=== PATIENT | male | born 1955 | race Caucasian/White ===

== ENCOUNTER 2017-02-02 23:43 | Inpatient (IN) | payer OTHER, MEDICARE ==
[~2017-02-02] VITALS: Ht 175.3 cm; Wt 151.6 kg
[~2017-02-02 23:43] MED LIST: BUME1TAB25 PO; IPRASOL INH; METO50TA PO; PRAV40TA2 PO; PROT40TA PO; VENTAER INH; XARE20TA PO
[2017-02-02 23:47] VITALS: BP 130/102; PULSE 94; RESP 22; TEMP 98.4; O2SAT 95
[2017-02-02] MEDS ORDERED: ATOR40TA16 PO (23:51)
[2017-02-02] MEDS ORDERED: SPIR25TA PO (23:51)
[2017-02-03] VITALS (14 sets, daily range): BP systolic 98–127; BP diastolic 54–87; PULSE 89–109; RESP 17–24; TEMP 97.8–98.5; O2SAT 94–100
[2017-02-03] MEDS: RESP: ALBUTEROL 2.5 MG/IPRATROPIUM 0.5 MG NEB (SCH) INH (00:07)
--- NOTE | 2017-02-03 00:26 | PD ---
HPI Chief Complaint: Respiratory Symptoms Time Seen by Provider: 23:53 Travel History International Travel<30 days: No Contact w/Intl Traveler<30days: No Traveled to known affect area: No History of Present Illness HPI Patient is a 61-year-old male with history of A. fib, hypertension, COPD, hyperlipidemia presents to emergency room with complaints of cough, shortness of breath for the past few days. Patient reports that he used to be on home oxygen but himself off of it a few months ago as he was "breathing okay." Patient reports that a few days ago, he began to feel short of breath. Patient reports that despite using nebulizer treatments at home, he continued to wheeze and feel short of breath. Patient reports that he has been coughing, reports that cough is nonproductive in nature. Patient reports that he has also been having fevers and chills, reports no sick contacts at home. Reports that he is supposed to be on Xarellto but has not been on it for 2 days as he had run out of his medications. Reports that he is on Xarelto to "prevent blood clots." Patient denies any recent travels or trips. Patient reports no other complaints. Patient denies any chest pain at this time. Patient was given Solu-Medrol 125 mg IV as well as 2 neb treatments prior to arrival to emergency room. PFSH Past Medical History Hx Anticoagulant Therapy: Yes Asthma: No Atrial Fibrillation: Yes Heart Rhythm Problems: Yes (ablation) Cancer: No Cardiac Catheterization: Yes Cardiovascular Problems: Yes High Cholesterol: Yes Chest Pain: Yes Congestive Heart Failure: Yes COPD: Yes (HOME O2 2 L NC) Cerebrovascular Accident: Yes Coronary Artery Disease: Yes Diabetes: No Diminished Hearing: No Endocrine: No Gastrointestinal Disorders: No Genitourinary: Yes (INTERMITTENT INCONTINENCE OF BOWEL AND BLADDER) Hypertension: Yes Immune Disorder: No Implanted Vascular Access Dvce: No Musculoskeletal: Yes Neurologic: Yes Psychiatric: No Reproductive: No Respiratory: Yes Integumentary: Yes (BILATERAL LOWER LEG SWELLING/SKIN ITEGRATY ISSUES cellulitis) Immunizations Current: Yes Migraines: No Seizures: Yes Sleep Apnea: Yes (DOES NOT HAVE CPAP) Thyroid Disease: No Tetanus Vaccination: > 5 Years Influenza Vaccination: Yes Past Surgical History Abdominal Surgery: Yes (apendix) Appendectomy: Yes Cardiac Surgery: Yes (ABLATIONS X 3) Genitourinary Surgery: No Neurologic Surgery: No Tonsillectomy: Yes Other Surgery: Yes (ABLATION X 3) Social History Alcohol Use: Yes (RARE) Tobacco Use: No Substance Use: No Allergies-Medications (Allergen,Severity, Reaction): Coded Allergies: *MDRO Multi-Drug Resistant Organism (Verified Adverse Reaction, Unknown, ) MRSA PCR (nares) positive - 01/11/16 Reported Meds & Prescriptions Reported Meds & Active Scripts Active Protonix (Pantoprazole Sodium) 40 Mg Tab 40 Mg PO DAILY Reported Atorvastatin (Atorvastatin Calcium) 40 Mg Tab 40 Mg PO HS Spironolactone 25 Mg Tab 25 Mg PO BIDPC Metoprolol Tartrate 50 Mg Tab 50 Mg PO BID Xarelto (Rivaroxaban) 20 Mg Tab 20 Mg PO DAILY WITH DINNER Bumex (Bumetanide) 0.5 Mg Tab 0.5 Mg PO BID Duoneb (Ipratropium-Albuterol Neb) 0.5-2.5 Mg/3 Ml Neb 1 Nebule INH Q4HR NEB PRN Ventolin Hfa 18 GM Inh (Albuterol Sulfate) 90 Mcg/Act Aer 2 Puff INH Q4H PRN Review of Systems General / Constitutional: Positive: Fever, Chills Eyes: No: Visual changes HENT: No: Headaches Cardiovascular: No: Chest Pain or Discomfort Respiratory: Positive: Cough, Shortness of Breath, Wheezing Gastrointestinal: No: Abdominal Pain Genitourinary: No: Dysuria Musculoskeletal: No: Pain Skin: No Rash Neurologic: No: Weakness Psychiatric: No: Depression Endocrine: No: Polydipsia Hematologic/Lymphatic: No: Easy Bruising Physical Exam Narrative GENERAL: Moderate distress SKIN: Focused skin assessment warm/dry. HEAD: Atraumatic. Normocephalic. EYES: Pupils equal and round. No scleral icterus. No injection or drainage. ENT: No nasal bleeding or discharge. Mucous membranes pink and moist. NECK: Trachea midline. No JVD. CARDIOVASCULAR: Tachycardic. No murmur appreciated. RESPIRATORY: Patient with overall decreased breath sounds, scattered wheezing on exam GASTROINTESTINAL: Abdomen soft, non-tender, nondistended. Hepatic and splenic margins not palpable. MUSCULOSKELETAL: No obvious deformities. No clubbing. No cyanosis. Patient with +3 pedal edema bilaterally with open skin to his right lower extremity NEUROLOGICAL: Awake and alert. No obvious cranial nerve deficits. Motor grossly within normal limits. Normal speech. PSYCHIATRIC: Appropriate mood and affect; insight and judgment normal. Data Data Last Documented VS Vital Signs Date Time Temp Pulse Resp B/P Pulse Ox O2 Delivery O2 Flow Rate FiO2 02/03/17 01:00 94 21 101/60 95 Nasal Cannula 2 02/02/17 23:47 98.4 Orders Complete Blood Count With Diff (02/02/17 23:53) Comprehensive Metabolic Panel (02/02/17 23:53) B-Type Natriuretic Peptide (02/02/17 23:53) Act Partial Throm Time (Ptt) (02/02/17 23:53) Prothrombin Time / Inr (Pt) (02/02/17 23:53) Magnesium (Mg) (02/02/17 23:53) Ckmb (Isoenzyme) Profile (02/02/17 23:53) Troponin I (02/02/17 23:53) Blood Culture (02/02/17 23:53) Iv Access Insert/Monitor (02/02/17 23:53) Electrocardiogram (02/02/17 23:53) Ecg Monitoring (02/02/17 23:53) Oximetry (02/02/17 23:53) Sodium Chloride 0.9% Flush (Ns Flush) (02/03/17 00:00) Albuterol-Ipratropium Neb (Duoneb Neb) (02/03/17 00:00) Us Leg Venous Doppler Bilat (02/02/17 ) Aspirin Chew (Aspirin Chew) (02/03/17 00:30) Chest, Single Ap (02/03/17 00:54) Osmolality,Serum (02/03/17 01:19) Osmolality, Urine (02/03/17 01:19) Ceftriaxone Inj (Rocephin Inj) (02/03/17 01:30) Azithromycin Inj (Zithromax Inj) (02/03/17 02:15) Admit Order (Ed Use Only) (02/03/17 02:04) Labs Laboratory Tests Test 02/03/17 00:00 White Blood Count 6.3 TH/MM3 Red Blood Count 3.51 MIL/MM3 Hemoglobin 10.9 GM/DL Hematocrit 32.5 % Mean Corpuscular Volume 92.6 FL Mean Corpuscular Hemoglobin 31.1 PG Mean Corpuscular Hemoglobin 33.5 % Concent Red Cell Distribution Width 14.9 % Platelet Count 220 TH/MM3 Mean Platelet Volume 6.6 FL Neutrophils (%) (Auto) 72.2 % Lymphocytes (%) (Auto) 13.5 % Monocytes (%) (Auto) 11.6 % Eosinophils (%) (Auto) 1.0 % Basophils (%) (Auto) 1.7 % Neutrophils # (Auto) 4.5 TH/MM3 Lymphocytes # (Auto) 0.8 TH/MM3 Monocytes # (Auto) 0.7 TH/MM3 Eosinophils # (Auto) 0.1 TH/MM3 Basophils # (Auto) 0.1 TH/MM3 CBC Comment DIFF FINAL Differential Comment Prothrombin Time 11.0 SEC Prothromb Time International 1.0 RATIO Ratio Activated Partial 28.1 SEC Thromboplast Time Sodium Level 115 MEQ/L Potassium Level 4.0 MEQ/L Chloride Level 78 MEQ/L Carbon Dioxide Level 21.6 MEQ/L Anion Gap 15 MEQ/L Blood Urea Nitrogen 18 MG/DL Creatinine 1.43 MG/DL Estimat Glomerular Filtration 50 ML/MIN Rate Random Glucose 105 MG/DL Calcium Level 8.6 MG/DL Magnesium Level 1.3 MG/DL Total Bilirubin 1.1 MG/DL Aspartate Amino Transf 43 U/L (AST/SGOT) Alanine Aminotransferase 35 U/L (ALT/SGPT) Alkaline Phosphatase 149 U/L Total Creatine Kinase 87 U/L Troponin I LESS THAN 0.02 NG/ML B-Type Natriuretic Peptide 48 PG/ML Total Protein 6.7 GM/DL Albumin 3.5 GM/DL MDM Medical Decision Making Medical Screen Exam Complete: Yes Emergency Medical Condition: Yes Interpretation(s) EKG at 2355: Normal sinus rhythm at 93 beats for minute, QT/QTc 356/407, ST segment depressions with T-wave inversions and leads V1 to V5, rbbb, ischemic changes are new when compared to EKG form 09/04/16 Vital Signs Date Time Temp Pulse Resp B/P Pulse Ox O2 Delivery O2 Flow Rate FiO2 02/03/17 00:00 98 Nasal Cannula 2.00 02/02/17 23:47 98.4 94 22 130/102 95 Differential Diagnosis ACS, arrhythmia, COPD exacerbation, pneumonia, electrolyte abnormality, DVT, PE Narrative Course Patient is a 61-year-old male who presents to emergency room with complaints of cough and shortness of breath the past few days. Patient does have history of COPD, reports that he is supposed to be on home O2, he stopped using this oxygen a few months ago as he reports that his lungs felt better. Patient appeared to have tight breath sounds by evaluation by EMS, he was given 125 mg of Solu-Medrol as well as 2 neb treatments prior to arrival to emergency room. Patient does have continued decreased breath sounds, patient was ordered continued neb treatments. X-ray of the chest including blood cultures and lab work ordered. Patient does have an ischemic appearing EKG, cardiac enzymes ordered as well. Patient also with swelling to his lower extremities, Doppler ultrasounds ordered to rule out DVT. Laboratory Tests Test 02/03/17 00:00 White Blood Count 6.3 TH/MM3 (4.0-11.0) Red Blood Count 3.51 MIL/MM3 (4.50-5.90) Hemoglobin 10.9 GM/DL (13.0-17.0) Hematocrit 32.5 % (39.0-51.0) Mean Corpuscular Volume 92.6 FL (80.0-100.0) Mean Corpuscular Hemoglobin 31.1 PG (27.0-34.0) Mean Corpuscular Hemoglobin 33.5 % Concent (32.0-36.0) Red Cell Distribution Width 14.9 % (11.6-17.2) Platelet Count 220 TH/MM3 (150-450) Mean Platelet Volume 6.6 FL (7.0-11.0) Neutrophils (%) (Auto) 72.2 % (16.0-70.0) Lymphocytes (%) (Auto) 13.5 % (9.0-44.0) Monocytes (%) (Auto) 11.6 % (0.0-8.0) Eosinophils (%) (Auto) 1.0 % (0.0-4.0) Basophils (%) (Auto) 1.7 % (0.0-2.0) Neutrophils # (Auto) 4.5 TH/MM3 (1.8-7.7) Lymphocytes # (Auto) 0.8 TH/MM3 (1.0-4.8) Monocytes # (Auto) 0.7 TH/MM3 (0-0.9) Eosinophils # (Auto) 0.1 TH/MM3 (0-0.4) Basophils # (Auto) 0.1 TH/MM3 (0-0.2) CBC Comment DIFF FINAL Differential Comment Prothrombin Time 11.0 SEC (9.8-11.6) Prothromb Time International 1.0 RATIO Ratio Activated Partial 28.1 SEC Thromboplast Time (24.3-30.1) Sodium Level 115 MEQ/L (136-145) Potassium Level 4.0 MEQ/L (3.5-5.1) Chloride Level 78 MEQ/L (98-107) Carbon Dioxide Level 21.6 MEQ/L (21.0-32.0) Anion Gap 15 MEQ/L (5-15) Blood Urea Nitrogen 18 MG/DL (7-18) Creatinine 1.43 MG/DL (0.60-1.30) Estimat Glomerular Filtration 50 ML/MIN (>89) Rate Random Glucose 105 MG/DL (74-106) Calcium Level 8.6 MG/DL (8.5-10.1) Magnesium Level 1.3 MG/DL (1.5-2.5) Total Bilirubin 1.1 MG/DL (0.2-1.0) Aspartate Amino Transf 43 U/L (15-37) (AST/SGOT) Alanine Aminotransferase 35 U/L (12-78) (ALT/SGPT) Alkaline Phosphatase 149 U/L (45-117) Total Creatine Kinase 87 U/L (39-308) Troponin I LESS THAN 0.02 NG/ML (0.02-0.05) B-Type Natriuretic Peptide 48 PG/ML (0-100) Total Protein 6.7 GM/DL (6.4-8.2) Albumin 3.5 GM/DL (3.4-5.0) pt's sodium 115 - patient is asymptomatic at this time, pt is on bumex 0.5mg bid - this could be the reason for his hyponatremia? call made to nephrology to review case plan to admit to icu Case discussed with Dr. Dominguez who is the "manufacturing test engineer" commercial parts professional, does not feel like this consult warrents a call "early in the morning." "This is a completely inappropriate call, admit this to medicine service and let them figure out." I did review that patient is on Bumex as well as Spironolactone, as per Dr. Dominguez, "bumex does not cause hyponatremia." Will review case with medicine service Case reviewed with Dr. Conklin who accepts pt to service Critical Care Narrative Aggregate critical care time was 30 minutes. Time to perform other separately billable procedures was not included in the critical care time. My time did not include minutes spent treating any other patients simultaneously or on activities that did not directly contribute to the patient's treatment. The services I provided to this patient were to treat and/or prevent clinically significant deterioration that could result in: , decompensation, deterioration I provided critical care services requiring my management, as noted below: Chart data review, documentation time, medication orders and management, vital sign assessments/reviewing monitor data, ordering and reviewing lab tests, ordering and interpreting/reviewing x-rays and diagnostic studies, care of the patient and discussion of the patient with the admitting physicians. Diagnosis Primary Impression: Hyponatremia Additional Impressions: COPD exacerbation EKG abnormalities Admitting Information Admitting Physician Requests: Admit Lilliana Aguilera DO February 03, 2017 00:25
[2017-02-03 00:28] LABS: AUTOMATED NEUTROPHIL # 4.5 TH/MM3 (1.8-7.7); BASOPHIL # 0.1 TH/MM3 (0-0.2); BASOPHIL % 1.7 % (0.0-2.0); EOSINOPHIL # 0.1 TH/MM3 (0-0.4); HEMATOCRIT 32.5 % (39.0-51.0); HEMO FLAGS DIFF FINAL; LYMPH % 13.5 % (9.0-44.0); LYMPHOCYTE # 0.8 TH/MM3 (1.0-4.8); MEAN CELL VOLUME 92.6 FL (80.0-100.0); MEAN CORPUSCULAR HEMOGLOBIN 31.1 PG (27.0-34.0); MEAN CORPUSCULAR HGB CONC 33.5 % (32.0-36.0); MONO % 11.6 % (0.0-8.0); NEUT % 72.2 % (16.0-70.0); PLATELET COUNT 220 TH/MM3 (150-450); RED BLOOD COUNT 3.51 MIL/MM3 (4.50-5.90); RED CELL DISTRIBUTION WIDTH 14.9 % (11.6-17.2); WHITE BLOOD COUNT 6.3 TH/MM3 (4.0-11.0)
[2017-02-03] MEDS ORDERED: ASPIRIN 81 MG CHEW TAB CHEW ONE (00:30)
[2017-02-03 00:43] LABS: ANION GAP 15 MEQ/L (5-15)
[2017-02-03 00:47] LABS: APTT (PATIENT) 28.1 SEC (24.3-30.1)
[2017-02-03 01:02] LABS: ALKALINE PHOSPHATASE 149 U/L (45-117); ALT (GPT) 35 U/L (12-78); AST (GOT) 43 U/L (15-37); BICARBONATE 21.6 MEQ/L (21.0-32.0); BLOOD UREA NITROGEN 18 MG/DL (7-18); CHLORIDE 78 MEQ/L (98-107); CREATINE KINASE 87 U/L (39-308); GLOMERULAR FILTRATION RATE 50 ML/MIN (>89); MAGNESIUM 1.3 MG/DL (1.5-2.5); TOTAL BILIRUBIN ADULT 1.1 MG/DL (0.2-1.0)
[2017-02-03 01:03] LABS: SODIUM (NA) 115 MEQ/L (136-145)
--- NOTE | 2017-02-03 01:18 | RADRPT ---
EXAM DATE/TIME: 02/03/2017 00:56 [facility] COMPARISON: CHEST SINGLE AP, September 04, 2016, 11:29. INDICATIONS : Shortness of breath. MEDICAL HISTORY : Hypertension. Chronic obstructive pulmonary disease. Myocardial infarction. Congestive heart fail ure. SURGICAL HISTORY : Cardiac ablation. Cardiac catheterization. ENCOUNTER: Initial ACUITY: 1 day PAIN SCORE: Non-responsive. LOCATION: Bilateral chest FINDINGS: Cardiomegaly has not changed. Left lung base opacity is present and may be technical, however left pl eural effusion and/or consolidation is difficult to exclude. CONCLUSION: Left lung base opacity possibly technical. Deanna Alvarez MD on February 03, 2017 at 1:16 Board Certified Radiologist. This report was verified electronically.
[2017-02-03] MEDS ORDERED: cefTRIAXone INJ 1,000 MG in SODIUM CHLORIDE 0.9% INJ 100 ML IV ONE (01:30)
[2017-02-03] MEDS ORDERED: AZITHROMYCIN INJ 500 MG in SODIUM CHLOR 0.9% 250 ML INJ 250 ML IV ONE (02:15)
--- NOTE | 2017-02-03 02:24 | RADRPT ---
EXAM DATE/TIME: 02/03/2017 01:40 [facility] COMPARISON: No previous studies available for comparison. INDICATIONS : Bilateral leg swelling. MEDICAL HISTORY : Myocardial infarction. Congestive heart failure. Hypercholesterolemia. CVA. Seizures. Numbness, right foot. CAD. Chest pain. Afib. HTN. COPD. Sleep apnea. Dyspnea. Intermittent incontinence of bowel and bladder. Cellutlitis. Previous suicide attempt. MRSA. Anticoagulant therapy. SURGICAL HISTORY : Tonsillectomy.Appendectomy. Cardiac ablation x3. Cardiac cath. Right ankle. ENCOUNTER: Subsequent ACUITY: 4 - 6 months PAIN SCORE: 7/10 LOCATION: Bilateral leg. TECHNIQUE: Venous ultrasound of the left and right leg was performed from the inguinal ligament to the proximal calf. Real-time, color Doppler and spectral tracing, compression and augmentation techniques were us ed. FINDINGS: RIGHT LEG: There is normal compressibility of the deep venous system from the inguinal region to the proximal ca lf. No echogenic clot is seen in the lumen of the common femoral, femoral, popliteal, and posterior tibial veins. There is a normal response of the venous system to proximal and distal augmentation an d respiration. LEFT LEG: There is normal compressibility of the deep venous system from the inguinal region to the proximal ca lf. No echogenic clot is seen in the lumen of the common femoral, femoral, popliteal, and posterior tibial veins. There is a normal response of the venous system to proximal and distal augmentation an d respiration. CONCLUSION: Normal examination. Deanna Alvarez MD on February 03, 2017 at 2:22 Board Certified Radiologist. This report was verified electronically.
[2017-02-03] MEDS ORDERED: ONDANSETRON HCL 4 MG/2 ML VIAL IV PRN (02:30)
[2017-02-03] MEDS ORDERED: MISCELLANEOUS NURSING INFORMATION XX SCH (02:30)
[2017-02-03] MEDS ORDERED: CHLORHEXIDINE GLUCONATE 2 % 1 PACK (2 CLOTHS) TOP PRN (02:30)
[2017-02-03] MEDS: SODIUM CHLOR 0.9% 1000 ML INJ 1,000 ML IV SCH ×2 (02:41→15:06)
--- NOTE | 2017-02-03 02:43 | HHI.HP ---
[facility] Service Critical Care Medicine Primary Care Physician No Primary Care Physician Admission Diagnosis Hyponatremia, COPD exacerbation Diagnosis: (1) COPD exacerbation Diagnosis: Principal (2) Acute and chronic respiratory failure Diagnosis: Principal (3) Chronic diastolic (congestive) heart failure Diagnosis: Secondary (4) Pulmonary hypertension Diagnosis: Secondary (5) Hyponatremia Diagnosis: Secondary Chief Complaint: Short of breath. Travel History International Travel<30 Days: No Contact w/Intl Traveler <30 Da: No Traveled to Known Affected Are: No History of Present Illness 61 y/o man with morbid obesity, diastolic heart failure, chronic hypoxemic respiratory failure presents with increasing shortness of breath. Found to have hyponatremia 115. On chronic dual diuretic therapy. Glucose normal. BNP normal. Cardiac markers negative. History of several ablations for a-fib and chronic xarelto therapy for lower extremity edema. CXR clear, poor resolution. Afebrile , no leukocytosis. Chronic lower extremity edema. Past Family Social History Allergies: Coded Allergies: *MDRO Multi-Drug Resistant Organism (Verified Adverse Reaction, Unknown, ) MRSA PCR (nares) positive - 01/11/16 Past Medical History Past Medical History Hx Anticoagulant Therapy: Yes Asthma: No Atrial Fibrillation: Yes Heart Rhythm Problems: Yes (ablation) Cancer: No Cardiac Catheterization: Yes Cardiovascular Problems: Yes High Cholesterol: Yes Chest Pain: Yes Congestive Heart Failure: Yes COPD: Yes (HOME O2 2 L NC) Cerebrovascular Accident: Yes Coronary Artery Disease: Yes Diabetes: No Diminished Hearing: No Endocrine: No Gastrointestinal Disorders: No Genitourinary: Yes (INTERMITTENT INCONTINENCE OF BOWEL AND BLADDER) Hypertension: Yes Immune Disorder: No Implanted Vascular Access Dvce: No Musculoskeletal: Yes Neurologic: Yes Psychiatric: No Reproductive: No Respiratory: Yes Integumentary: Yes (BILATERAL LOWER LEG SWELLING/SKIN ITEGRATY ISSUES cellulitis) Immunizations Current: Yes Migraines: No Seizures: Yes Sleep Apnea: Yes (DOES NOT HAVE CPAP) Thyroid Disease: No Tetanus Vaccination: > 5 Years Influenza Vaccination: Yes Past Surgical History Abdominal Surgery: Yes (apendix) Appendectomy: Yes Cardiac Surgery: Yes (ABLATIONS X 3) Genitourinary Surgery: No Neurologic Surgery: No Tonsillectomy: Yes Other Surgery: Yes (ABLATION X 3) Social History Alcohol Use: Yes (RARE) Tobacco Use: No Substance Use: No Allergies-Medications Allergies-Medications (Allergen,Severity, Reaction): Coded Allergies: *MDRO Multi-Drug Resistant Organism (Verified Adverse Reaction, Unknown, ) MRSA PCR (nares) positive - 01/11/16 Reported Meds & Prescriptions Reported Meds & Active Scripts Active Protonix (Pantoprazole Sodium) 40 Mg Tab 40 Mg PO DAILY Reported Atorvastatin (Atorvastatin Calcium) 40 Mg Tab 40 Mg PO HS Spironolactone 25 Mg Tab 25 Mg PO BIDPC Metoprolol Tartrate 50 Mg Tab 50 Mg PO BID Xarelto (Rivaroxaban) 20 Mg Tab 20 Mg PO DAILY WITH DINNER Bumex (Bumetanide) 0.5 Mg Tab 0.5 Mg PO BID Duoneb (Ipratropium-Albuterol Neb) 0.5-2.5 Mg/3 Ml Neb 1 Nebule INH Q4HR NEB PRN Ventolin Hfa 18 GM Inh (Albuterol Sulfate) 90 Mcg/Act Aer 2 Puff INH Q4H PRN Physical Exam Vital Signs Vital Signs Date Time Temp Pulse Resp B/P Pulse Ox O2 Delivery O2 Flow Rate FiO2 02/03/17 01:00 94 21 101/60 95 Nasal Cannula 2 02/03/17 00:37 96 21 98/54 96 Nasal Cannula 2 02/03/17 00:30 24 96 Nasal Cannula 2 02/03/17 00:30 22 96 Nasal Cannula 2 02/03/17 00:00 98 Nasal Cannula 2.00 02/02/17 23:47 98.4 94 22 130/102 95 Physical Exam Gen: Disheveled, obese man. Poor hygiene. Head: Normal. Neck: Supple, airway widely patent. Lungs: Clear now after treatment. Good jeremiah air entry. Light wheezes, no crackles. Heart: NL S1S2, RRR, tachycardia 101. Neck veins full. Abdomen: Large, soft, nontender, no guarding. BS active. Extremities: Chronic lower extremity edema with venous stasis changes and skin breakdown right side above ankle. Neuro: O X 3, alert. Moves 4 limbs to command. Laboratory Laboratory Tests Test 02/03/17 00:00 White Blood Count 6.3 Red Blood Count 3.51 Hemoglobin 10.9 Hematocrit 32.5 Mean Corpuscular Volume 92.6 Mean Corpuscular Hemoglobin 31.1 Mean Corpuscular Hemoglobin 33.5 Concent Red Cell Distribution Width 14.9 Platelet Count 220 Mean Platelet Volume 6.6 Neutrophils (%) (Auto) 72.2 Lymphocytes (%) (Auto) 13.5 Monocytes (%) (Auto) 11.6 Eosinophils (%) (Auto) 1.0 Basophils (%) (Auto) 1.7 Neutrophils # (Auto) 4.5 Lymphocytes # (Auto) 0.8 Monocytes # (Auto) 0.7 Eosinophils # (Auto) 0.1 Basophils # (Auto) 0.1 CBC Comment DIFF FINAL Differential Comment Prothrombin Time 11.0 Prothromb Time International 1.0 Ratio Activated Partial 28.1 Thromboplast Time Sodium Level 115 Potassium Level 4.0 Chloride Level 78 Carbon Dioxide Level 21.6 Anion Gap 15 Blood Urea Nitrogen 18 Creatinine 1.43 Estimat Glomerular Filtration 50 Rate Random Glucose 105 Calcium Level 8.6 Magnesium Level 1.3 Total Bilirubin 1.1 Aspartate Amino Transf 43 (AST/SGOT) Alanine Aminotransferase 35 (ALT/SGPT) Alkaline Phosphatase 149 Total Creatine Kinase 87 Troponin I LESS THAN 0.02 B-Type Natriuretic Peptide 48 Total Protein 6.7 Albumin 3.5 Date/Time Procedure Status Source Growth 02/03/17 00:05 Aerobic Blood Culture Received Blood Peripheral Pending 02/03/17 00:05 Anaerobic Blood Culture Received Blood Peripheral Pending Result Diagram: 02/03/17 0000 02/03/17 0000 Assessment and Plan Assessment and Plan Assessment: 1. COPD exacerbation. 2. Hyponatremia, severe. 3. Chronic distolic heart failure. 4. Chronic pulmonary hypertension. 5. Obesity hypoventilation, home O2 (which he stopped recently). 6. CORIN. 7. Post-phlebitic legs. Plan: 1. Check BNP, cardiac markers. 2. Continue diuretics. 3. Elevate legs. 4. Wound consult left leg. 5. Lovenox 120 mg bid pending LE ultrasound result. 6. NS 75/hr. 7. Serial Na. Overall impression: Critically ill man with severe hyponatremia at risk for seizures, complicated by chronic diastolic heart failure, morbid obesity, and chronic peripheral edema. Critical Care 45 mins Chao Taylor MD February 03, 2017 02:43
[2017-02-03] MEDS ORDERED: RESP: ALBUTEROL 2.5 MG/IPRATROPIUM 0.5 MG NEB (PRN) NEB (02:45)
[2017-02-03] MEDS ORDERED: ALBUTEROL SULFATE 90 MCG/ACT HFA 18 GM INHALER INH PRN (02:45)
[2017-02-03] MEDS: MAGNESIUM SULFATE 1 GM PREMIX 100 ML IV SCH ×2 (04:43→06:23)
[2017-02-03] MEDS: ENOXAPARIN SODIUM 120 MG/0.8 ML SYRINGE SQ SCH ×2 (04:43→15:05)
[2017-02-03] MEDS: FUROSEMIDE 40 MG/4 ML VIAL IV PUSH SCH ×2 (04:43→15:05)
[2017-02-03] MEDS: CHLORHEXIDINE GLUCONATE 2 % 1 PACK (2 CLOTHS) TOP SCH (05:30)
[2017-02-03] MEDS: RESP: ALBUTEROL 2.5 MG/IPRATROPIUM 0.5 MG NEB (PRN) INH ×2 (07:30→17:38)
[2017-02-03] MEDS: PANTOPRAZOLE SOD 40 MG DELAYED RELEASE TAB PO SCH (08:33)
[2017-02-03] MEDS: METOPROLOL TARTRATE 50 MG TAB PO SCH ×2 (08:33→20:23)
[2017-02-03] MEDS: SPIRONOLACTONE 25 MG TAB PO SCH ×2 (08:33→18:00)
[2017-02-03] MEDS: DOCUSATE SODIUM 100 MG CAP PO SCH ×2 (09:00→20:22)
[2017-02-03] MEDS: ACETAMINOPHEN 325 MG TAB PO PRN (10:05)
[2017-02-03 12:36] LABS: AUTOMATED NEUTROPHIL # 4.4 TH/MM3 (1.8-7.7); BASOPHIL % 0.2 % (0.0-2.0); EOSINOPHIL % 0.3 % (0.0-4.0); HEMATOCRIT 30.6 % (39.0-51.0); HEMO FLAGS DIFF FINAL; LYMPH % 4.4 % (9.0-44.0); LYMPHOCYTE # 0.2 TH/MM3 (1.0-4.8); MEAN CELL VOLUME 91.1 FL (80.0-100.0); MEAN CORPUSCULAR HEMOGLOBIN 31.8 PG (27.0-34.0); MEAN CORPUSCULAR HGB CONC 34.9 % (32.0-36.0); NEUT % 94.1 % (16.0-70.0); PLATELET COUNT 205 TH/MM3 (150-450); RED BLOOD COUNT 3.36 MIL/MM3 (4.50-5.90); WHITE BLOOD COUNT 4.6 TH/MM3 (4.0-11.0)
[2017-02-03 12:58] LABS: MAGNESIUM 1.9 MG/DL (1.5-2.5); POTASSIUM 4.7 MEQ/L (3.5-5.1)
[2017-02-03] MEDS: RESP: ALBUTEROL 2.5 MG/IPRATROPIUM 0.5 MG NEB (SCH) NEB ×2 (14:14→20:04)
--- NOTE | 2017-02-03 14:14 | RADRPT ---
EXAM DATE/TIME: 02/03/2017 13:42 [facility] COMPARISON: CT THORAX W/O CONTRAST, January 13, 2016, 22:18. INDICATIONS : Shortness of breath, infiltrate. RADIATION DOSE: 18.97 CTDIvol (mGy) MEDICAL HISTORY : Cardiovascular disease. Stroke Seizures. Hypertension SURGICAL HISTORY : Appendectomy. ENCOUNTER: Initial ACUITY: 1 day PAIN SCALE: 0/10 LOCATION: chest TECHNIQUE: Volumetric scanning of the chest was performed. Using automated exposure control and adjustment of t he mA and/or kV according to patient size, radiation dose was kept as low as reasonably achievable to obtain optimal diagnostic quality images. FINDINGS: LUNGS: Is minimal scarring at the right lung base. A tiny pleural-based nodule is present in the lateral lef t lower lobe. There is no evidence of lobar consolidation. PLEURAE: There is no pleural thickening or pleural effusion. MEDIASTINUM: The heart and great vessels demonstrate no acute abnormality. There is no mediastinal or hilar lymph adenopathy. AXILLAE: Within normal limits. No lymphadenopathy. MUSCULOSKELETAL: Within normal limits for patient age. MISCELLANEOUS: The visualized upper abdominal organs demonstrate no acute abnormality. CONCLUSION: Subcentimeter pleural-based nodule left lower lobe. Minimal basilar atelectasis or scarring. Renny Hinojosa MD on February 03, 2017 at 14:04 Board Certified Radiologist. This report was verified electronically.
[2017-02-03 14:17] LABS: BLOOD GAS BASE EXCESS 0.3 mmol/L (-2-2); BLOOD GAS CARBOXYHEMOGLOBIN 1.9 % (0-4); BLOOD GAS HCO3 24 mmol/L (22-26); BLOOD GAS METHEMOGLOBIN 1.2 % (0-2); BLOOD GAS O2 HGB SATURATION 94 % (90-100); BLOOD GAS OXYGEN CONTENT 14.1 Vol % (12.0-20.0); BLOOD GAS PCO2 40 mmHg (38-42); BLOOD GAS PO2 86 mmHg (61-120); BLOOD GAS TOTAL HGB 10.6 G/DL (12.0-16.0); CRITICAL VALUE NO; TEMP CORR TO 98.6
[2017-02-03 14:18] LABS: DRAW SITE RT RADIAL; LITER FLOW 2 L/M; NUMBER OF ARTERIAL PUNCTURES 1; OXYGEN DEVICE NASAL CANNULA; STAT NO; ULNAR PULSE PRESENT
[2017-02-03] MEDS: cefTRIAXone INJ 1,000 MG in SODIUM CHLORIDE 0.9% INJ 100 ML IV SCH (15:04)
--- NOTE | 2017-02-03 15:40 | EKG ---
Date Performed: 02/02/2017 Time Performed: 23:55:48 PTAGE: 61 years EKG: Sinus rhythm INCOMPLETE RIGHT BUNDLE BRANCH BLOCK ST DEVIATION AND MODERATE T-WAVE ABNORMALITY, CONSIDER ANTERIOR ISCHEMIA ABNORMAL ECG Compared to prior tracing no significant change PREVIOUS TRACING 09/04/2016 11.33.38 DOCTOR: Johnny Caputo Interpretating Date/Time 02/03/2017 15:39:40
--- NOTE | 2017-02-03 19:01 | EC ---
Study Study Date:02/03/2017 STUDY CONCLUSIONS SUMMARY - Left ventricle: The cavity size was normal. Wall thickness was increased in a pattern of moderate LVH. Systolic function was normal. The estimated ejection fraction was 65%. Wall motion was normal; there were no regional wall motion abnormalities. - Aortic valve: Calcified annulus. Trileaflet; mildly thickened leaflets. - Mitral valve: Calcified annulus. - Tricuspid valve: Mild regurgitation. - Pulmonary arteries: Systolic pressure was mildly increased. PA peak pressure: 42mm Hg (S). If LV function is below 40, please consider prescribing an ACEI or ARB or document rationale for non-use. PROCEDURE DATA STUDY STATUS: Elective. Procedure: Transthoracic echocardiography. Image quality was good. Scanning was performed from the parasternal, apical, and subcostal acoustic windows. Study completion: The patient tolerated the procedure well. Transthoracic echocardiography. M-mode, complete 2D, complete spectral Doppler, and color Doppler. Height: Height: 69in. Weight: Weight: 263.5lb. Body mass index: BMI: 39kg/m^2. Body surface area: BSA: 2.32m^2. Patient status: Inpatient. CARDIAC ANATOMY LEFT VENTRICLE: The cavity size was normal. Wall thickness was increased in a pattern of moderate LVH. Systolic function was normal. The estimated ejection fraction was 65%. Wall motion was normal; there were no regional wall motion abnormalities. AORTIC VALVE: Calcified annulus. Trileaflet; mildly thickened leaflets. Doppler: Transvalvular velocity was within the normal range. There was no stenosis. No regurgitation. Valve area: 0.92cm^2(VTI). Indexed valve area: 0.4cm^2/m^2 (VTI). Valve area: 1.01cm^2 (Vmax). Indexed valve area: 0.44cm^2/m^2 (Vmax). Mean gradient: 8mm Hg (S). Peak gradient: 16mm Hg (S). AORTA: Aortic root: The aortic root was normal in size. MITRAL VALVE: Calcified annulus. Doppler: Transvalvular velocity was within the normal range. There was no evidence for stenosis. No regurgitation. Peak gradient: 5mm Hg (D). LEFT ATRIUM: The atrium was normal in size. RIGHT VENTRICLE: The cavity size was normal. Wall thickness was normal. PULMONIC VALVE: Doppler: Transvalvular velocity was within the normal range. There was no evidence for stenosis. No regurgitation. TRICUSPID VALVE: Structurally normal valve. Doppler: Transvalvular velocity was within the normal range. Mild regurgitation. PULMONARY ARTERY: The main pulmonary artery was normal-sized. Systolic pressure was mildly increased. RIGHT ATRIUM: The atrium was normal in size. PERICARDIUM: There was no pericardial effusion. SYSTEMIC VEINS: Inferior vena cava: The vessel was normal in size. Patient weight: 263.5lb _Ejection fraction:_ 65-75% _Fractional shortening:_ 32% up to 5Kg 5-11.5Kg 11.6-22.9Kg 23-45Kg 45-57Kg Aortic Root 7-13 <17 13-22 17-27 17-27 LA diam 6-13 <23 24-38 33-47 37-40 RVID 10-17 7-15 7-15 7-18 8-17 LVIDd 12-22 <32 24-38 33-47 37-40 LVPW 2-4 3-6 5-7 6-8 7-8 IVS 2-4 3-6 5-7 6-8 7-8 BASIC MEASUREMENTS ADULT NORMAL Left ventricle LV internal dimension, ED, chordal 45 mm 43-52 level, PLAX LV internal dimension, ES, chordal 30 mm 23-38 level, PLAX Fractional shortening, chordal level, 33 % >29 PLAX LV posterior wall thickness, ED 13.8 mm IVS/LVPW ratio, ED 1.12 <1.3 Ventricular septum Septal thickness, ED 15.4 mm Aortic valve Leaflet separation 15 mm 15-26 Aorta Root diameter, ED 29 mm Left atrium Anterior-posterior dimension 31 mm Anterior-posterior dimension index 1.34 cm/m^2 <2.2 BASIC MEASUREMENTS ADULT NORMAL Aortic valve Leaflet separation 15 mm 15-26 DOPPLER MEASUREMENTS ADULT NORMAL Main pulmonary artery Pressure, S *42 mm Hg =30 Aortic valve Peak velocity, S 197 cm/s Mean velocity, S 132 cm/s VTI, S 30.7 cm Mean gradient, S 8 mm Hg Peak gradient, S 16 mm Hg Valve area, VTI 0.92 cm^2 Valve area index, VTI 0.4 cm^2/m^2 Valve area, Vmax 1.01 cm^2 Valve area index, Vmax 0.44 cm^2/m^2 Mitral valve Peak E-wave velocity 110 cm/s Peak A-wave velocity 50 cm/s Deceleration time *143 ms 150-230 Peak gradient, D 5 mm Hg Peak E/A ratio 2.2 Tricuspid valve Regurgitant peak velocity 303 cm/s Peak RV-RA gradient, S 37 mm Hg Maximal regurgitant velocity 303 cm/s Systemic veins Estimated CVP 10 mm Hg Right ventricle RV pressure, S *47 mm Hg <30 Pulmonic valve Peak velocity, S 117 cm/s LEGEND: Mean values are shown as u=mean value. Asterisk (*) quijano values outside specified normal range. Prepared and signed by Mike Ren [id number]
[2017-02-03] MEDS ORDERED: LORazepam 2 MG/ML VIAL IV PUSH PRN ×4 (20:00)
[2017-02-03] MEDS ORDERED: FLUMAZENIL 0.5 MG/5 ML VIAL IV PUSH PRN (20:00)
[2017-02-03] MEDS ORDERED: LORazepam 2 MG TAB PO PRN (20:00)
[2017-02-03] MEDS: FOLIC ACID 1 MG TAB PO SCH (20:22)
[2017-02-03] MEDS: MULTIVITAMINS/MINERALS THERAPEUTIC TAB PO SCH (20:22)
[2017-02-03] MEDS: ATORVASTATIN 40 MG TAB PO SCH (20:22)
[2017-02-03] MEDS: THIAMINE HCL 100 MG TAB PO SCH (20:23)
[2017-02-03] MEDS: methylPREDNISolone SOD SUCC 40 MG/1 ML VIAL IV SCH (21:32)
[2017-02-03] MEDS: BUDESONIDE-FORMOTEROL 160/4.5 MCG INHALER INH SCH (21:36)
[2017-02-04] VITALS (9 sets, daily range): BP systolic 108–121; BP diastolic 55–73; PULSE 81–96; RESP 10–29; TEMP 97.9–98.6; O2SAT 93–99
--- NOTE | 2017-02-04 00:09 | MB ---
cc: CORINNE GREY DATE OF CONSULTATION: 02/03/2017 REASON FOR CONSULTATION: Respiratory failure. COPD. HISTORY OF PRESENT ILLNESS This is a 61-year-old extremely overweight white male who has had a past history of obesity and chronic respiratory failure and has been treated for atrial fibrillation and has had several cardiac ablations done. He also is on anticoagulation therapy and was brought in for severe shortness of breath, orthopnea, and leg edema. The patient had a chest x-ray which showed increased interstitial markings, and the patient's sodium level was noted to be 115. He was also started on normal saline and now admitted to the intensive care unit, and also has been on diuretic therapy due to chronic diastolic heart failure. The patient presently is feeling better. He is on 02 at three liters. He denies chest pain. He has a cough. He has mild wheezing. Denies leg or calf muscle pain. PAST MEDICAL HISTORY: The past history has also included diastolic heart failure and COPD, history of hyponatremia and hypertension. He has hyperlipidemia and has had history of asthma and coronary artery disease, and previous CVA. He has had chronic leg edema and also has sleep apnea. PAST SURGICAL HISTORY: Appendectomy. Tonsillectomy. Ablation of the heart x3. HABITS The patient does not smoke. No significant alcohol use. ALLERGIES No drug allergies listed. MEDICATIONS: 1. Atorvastatin 40 mg hs. 2. Aldactone 25 milligrams b.i.d. 3. Metoprolol 50 milligrams b.i.d. 4. Xarelto 20 milligrams daily. 5. Bumex 0.5 milligrams b.i.d. 6. DuoNeb nebs q.i.d. FAMILY HISTORY: Noncontributory. REVIEW OF SYSTEMS The patient has shortness of breath, wheezing, orthopnea. He has epigastric distress. No nausea, vomiting. No urinary symptoms. No leg or calf muscle pain. No joint pains of the extremities. PHYSICAL EXAMINATION: This middle-aged obese white male's face is plethoric. Blood pressure 110/60, pulse 90, temperature 98.2. HEENT: Head normocephalic. Pupils reactive. Tongue is dry. Throat is injected. Nasal mucosae erythematous. Neck: Supple. No bruits or thyroid enlargement, no lymphadenopathy. Chest: Equal movements with distant breath sounds, wheezes throughout both lung pablo. Prolonged expirations. Heart: The heart sounds are irregular, S1-S2, no murmur. Abdomen: Soft, protuberant, no masses, no organomegaly. Extremities: Edema 2+ with diminished pulses. Ecchymotic areas of the skin. Neurologic: Reflexes 1+ with no gross motor deficits. Cranial nerves grossly intact. Rectal: Exam is deferred. IMPRESSION 1. COPD with chronic bronchitis and emphysema 2. Obstructive sleep apnea syndrome 3. Hyponatremia. 4. Chronic back pain. PLAN The patient has been advised to get a CT chest without contrast, placed on Solu-Medrol twice daily 40 mg. Continue with Lasix 40 mg b.i.d. and potassium. Rocephin 1 gram IV daily is added. Continue anticoagulants. Duoneb nebs qid was added and solumedrol 40 mg BID. Will be placed on Bipap at HS 12/5 Cm and O2 2 L daytime Thank you for the consultation. MD JOHN Michel/SAYDA /11:45 PM /12:00 AM AINSLEY
[2017-02-04] MEDS: FUROSEMIDE 40 MG/4 ML VIAL IV PUSH SCH (03:32)
[2017-02-04] MEDS: ENOXAPARIN SODIUM 120 MG/0.8 ML SYRINGE SQ SCH (03:32)
[2017-02-04] MEDS: CHLORHEXIDINE GLUCONATE 2 % 1 PACK (2 CLOTHS) TOP SCH (03:32)
[2017-02-04] MEDS: CHLORHEXIDINE GLUCONATE 2 % 1 PACK (2 CLOTHS)(taper/protocol) TOPICAL SCH (04:00)
[2017-02-04 04:27] LABS: AUTOMATED NEUTROPHIL # 11.2 TH/MM3 (1.8-7.7); BASOPHIL % 0.3 % (0.0-2.0); EOSINOPHIL % 0.1 % (0.0-4.0); HEMATOCRIT 32.3 % (39.0-51.0); HEMO FLAGS DIFF FINAL; LYMPH % 2.8 % (9.0-44.0); LYMPHOCYTE # 0.3 TH/MM3 (1.0-4.8); MEAN CELL VOLUME 93.2 FL (80.0-100.0); MEAN CORPUSCULAR HEMOGLOBIN 30.7 PG (27.0-34.0); MONO % 3.4 % (0.0-8.0); NEUT % 93.4 % (16.0-70.0); PLATELET COUNT 226 TH/MM3 (150-450); RED BLOOD COUNT 3.46 MIL/MM3 (4.50-5.90); RED CELL DISTRIBUTION WIDTH 15.2 % (11.6-17.2)
[2017-02-04 04:56] LABS: BICARBONATE 26.2 MEQ/L (21.0-32.0); MAGNESIUM 2.1 MG/DL (1.5-2.5); POTASSIUM 4.7 MEQ/L (3.5-5.1)
[2017-02-04] MEDS ORDERED: CHLORHEXIDINE GLUCONATE 2 % 1 PACK (2 CLOTHS)(extra cloths) TOPICAL PRN (05:00)
--- NOTE | 2017-02-04 07:43 | HHI.PR ---
Subjective Remarks in no acute distress. says that his sob is better. had mild nausea earlier. afebrile. Objective Vitals Vital Signs Date Time Temp Pulse Resp B/P Pulse Ox O2 Delivery O2 Flow Rate FiO2 02/04/17 04:00 97.9 86 18 116/73 96 02/04/17 00:00 98.3 87 10 121/63 93 02/03/17 23:23 100 50 02/03/17 20:06 97 Nasal Cannula 2.00 02/03/17 20:00 98.4 95 17 104/59 96 02/03/17 15:00 97.8 89 22 110/66 99 02/03/17 11:05 16 02/03/17 11:00 98.5 99 20 118/72 95 I/O 02/03/17 02/03/17 02/03/17 02/04/17 02/04/17 02/04/17 07:00 15:00 23:00 07:00 15:00 23:00 Intake Total 1546 ml 926 ml 610 ml Output Total 800 ml 500 ml 600 ml Balance 746 ml 426 ml 10 ml Intake Oral 560 ml 360 ml 0 ml IV Total 986 ml 566 ml 610 ml Output Urine Total 800 ml 500 ml 600 ml # Bowel Movements 1 0 0 Result Diagram: 02/04/17 0343 02/04/17 0343 Imaging Last Impressions Chest CT 02/03/17 1253 Signed Impressions: Service Date/Time: Friday, February 03, 2017 13:42 - CONCLUSION: Subcentimeter pleural-based nodule left lower lobe. Minimal basilar atelectasis or scarring. Renny Hinojosa MD Chest X-Ray 02/03/17 0054 Signed Impressions: Service Date/Time: Friday, February 03, 2017 00:56 - CONCLUSION: Left lung base opacity possibly technical. Deanna Alvarez MD Lower Extremity Ultrasound 02/02/17 0000 Signed Impressions: Service Date/Time: Friday, February 03, 2017 01:40 - CONCLUSION: Normal examination. Deanna Alvarez MD Objective Remarks GENERAL:, in no apparent distress. CARDIOVASCULAR: Regular rate and regular rhythm without murmurs, gallops, or rubs. RESPIRATORY: Clear to auscultation. Breath sounds equal bilaterally. No wheezes , rales, or rhonchi. GASTROINTESTINAL: Abdomen soft, non-tender, nondistended. Normal, active bowel sounds MUSCULOSKELETAL: Extremities with bilateral pedal edema NEURO: Alert & Oriented x4 to person, place, time, situation. Moves all ext x4 skin; superficial wound on the right leg Medications and IVs Current Medications Sodium Chloride (NS Flush) 2 ml UNSCH PRN IVF FLUSH AFTER USING IV ACCESS; Start 02/03/17 at 00:00 Albuterol/ Ipratropium (Duoneb Neb) 1 ampule Q15M INH Last administered on 02/03 00:07; Start 02/03/17 at 00:00; Stop 02/03/17 at 00:31; Status DC Aspirin 162 mg 162 mg ONCE ONCE CHEW Last administered on 02/03/17 00:36; Start 02/03/17 at 00:30; Stop 02/03/17 at 00:31; Status DC Ceftriaxone Sodium 1000 mg/ Sodium Chloride 100 ml @ 200 mls/hr ONCE ONCE IV Last administered on 02/03/17 01:34; Start 02/03/17 at 01:30; Stop 02/03/17 at 01:59; Status DC Azithromycin 500 mg/Sodium Chloride 250 ml @ 250 mls/hr ONCE ONCE IV Last administered on 02/03/17 02:42; Start 02/03/17 at 02:15; Stop 02/03/17 at 03:14 ; Status DC Sodium Chloride (NS 1000 ml Inj) 1,000 ml @ 75 mls/hr [id number] IV Last administered on 02/03/17 15:06; Start 02/03/17 at 02:19 Acetaminophen (Tylenol) 650 mg Q6H PRN PO PAIN 1-10 AND/OR FEVER >101F Last administered on 02/03/17 10:05; Start 02/03/17 at 02:30 Pantoprazole Sodium (Protonix) 40 mg DAILY PO Last administered on 02/03/17 08 :33; Start 02/03/17 at 09:00 Ondansetron HCl (Zofran Inj) 4 mg Q6H PRN IV NAUSEA OR VOMITING; Start at 02:30 Docusate Sodium (Colace) 100 mg BID PO Last administered on 02/03/17 20:22; Start 02/03/17 at 09:00 Albuterol/ Ipratropium (Duoneb Neb) 1 ampule Q4HR NEB PRN INH WHEEZING Last administered on 02/03/17 17:38; Start 02/03/17 at 02:30 Miscellaneous Information 1 Q361D XX ; Start 02/03/17 at 02:30 Chlorhexidine Gluconate (Chlorhexidine 2% Cloth) 3 pack Taper DAILY@04 TOP Last administered on 02/04/17 03:32; Start 02/03/17 at 04:00; Stop 01/30/18 at 03:59 Chlorhexidine Gluconate (Chlorhexidine 2% Cloth) 3 pack UNSCH PRN TOP HYGIENIC CARE; Start 02/03/17 at 02:30 Albuterol Sulfate (Ventolin Hfa Inh) 2 puff Q4H PRN INH SHORTNESS OF BREATH; Start 02/03/17 at 02:45 Atorvastatin Calcium (Lipitor) 40 mg HS PO Last administered on 02/03/17 20:22 ; Start 02/03/17 at 21:00 Albuterol/ Ipratropium (Duoneb Neb) 2 ampule Q4HR NEB PRN NEB SHORTNESS OF BREATH; Start 02/03/17 at 02:45 Metoprolol Tartrate (Lopressor) 50 mg BID PO Last administered on 02/03/17 20: 23; Start 02/03/17 at 09:00 Spironolactone 25 mg 25 mg BIDPC PO Last administered on 02/03/17 08:33; Start 02/03/17 at 09:00 Magnesium Sulfate/ Dextrose (Magnesium Sulfate 1 Gm Premix) 100 ml @ 100 mls/ hr Q1H IV Last administered on 02/03/17 06:23; Start 02/03/17 at 02:30; Stop 02/03/17 at 04:51; Status DC Enoxaparin Sodium (Lovenox Inj) 120 mg Q12H SQ Last administered on 02/04/17 03:32; Start 02/03/17 at 03:00 Furosemide 40 mg 40 mg Q12H IV PUSH Last administered on 02/04/17 03:32; Start 02/03/17 at 03:00 Ceftriaxone Sodium/Sodium Chloride (Rocephin Inj/NS Inj) 100 ml @ 200 mls/hr Q24H IV Last administered on 02/03/17 15:04; Start 02/03/17 at 14:00 Budesonide/ Formoterol Fumarate (Symbicort 160-4.5 Inh) 2 puff Q12HR INH Last administered on 02/03/17 21:36; Start 02/03/17 at 21:00 Albuterol/ Ipratropium (Duoneb Neb) 1 ampule QID NEB NEB Last administered on 02/03/17 20:04; Start 02/03/17 at 16:00 Folic Acid (Folate) 1 mg DAILY PO Last administered on 02/03/17 20:22; Start 02/03/17 at 20:00; Stop 02/08/17 at 19:59 Thiamine HCl (Vitamin B1) 100 mg DAILY PO Last administered on 02/03/17 20:23 ; Start 02/03/17 at 20:00 Multivitamins/ Minerals Therapeutic (Theragran M Tab) 1 tab DAILY PO Last administered on 02/03/17 20:22; Start 02/03/17 at 20:00; Stop 02/08/17 at 19:59 Ondansetron HCl (Zofran Inj) 4 mg Q6H PRN IV NAUSEA OR VOMITING; Start at 20:00 Flumazenil (Romazicon Inj) 0.2 mg Q1M PRN IV PUSH SEE LABEL COMMENTS; Start at 20:00 Lorazepam (Ativan) 1 mg Q4H PRN PO CIWA 8 - 10; Start 02/03/17 at 20:00 Lorazepam (Ativan Inj) 1 mg Q4H PRN IV PUSH CIWA 8 - 10; Start 02/03/17 at 20: 00 Lorazepam (Ativan) 2 mg Q2H PRN PO CIWA 11-14; Start 02/03/17 at 20:00 Lorazepam (Ativan Inj) 2 mg Q2H PRN IV PUSH CIWA 11-14; Start 02/03/17 at 20:00 Lorazepam (Ativan Inj) 2 mg Q1H PRN IV PUSH CIWA 15-20; Start 02/03/17 at 20:00 Lorazepam (Ativan Inj) 2 mg Q15M PRN IV PUSH CIWA > 20; Start 02/03/17 at 20:00 Methylprednisolone Sodium Succinate (SoluMEDROL INJ) 40 mg BID IV Last administered on 02/03/17 21:32; Start 02/03/17 at 21:00 Miscellaneous Information Patient in critical care unit? Ass... Q361D .XX ; Start 02/04/17 at 04:00 Chlorhexidine Gluconate (Chlorhexidine 2% Cloth) 3 pack DAILY@04 TOPICAL Last administered on 02/04/17 04:00; Start 02/04/17 at 04:00; Stop 02/08/17 at 04:01 Chlorhexidine Gluconate (Chlorhexidine 2% Cloth) 3 pack UNSCH PRN TOPICAL HYGIENIC CARE; Start 02/04/17 at 05:00; Stop 02/09/17 at 04:46 A/P Assessment and Plan A/P 1. COPD exacerbation continue with neb treatment and IV steroid- started on IV Rocephin- of note the patient is on home oxygen- pulmonary consult appreciated. 2. Hyponatremia, severe- improving continue with gentle IV fluid- monitor the sodium level closely- TSH WNL. 3. Chronic diastolic heart failure. continue diuretics; will decrease the dose of lasix to 40 mg daily-continue BB. 4. chronic renal insufficiency; seems to be at his baseline- will monitor 5. right leg wound; consulted wound care 6. atrial fibrillation; resume Xarelto DVT prophylaxis with Xarelto. Kristen Amaya MD February 04, 2017 07:43
[2017-02-04] MEDS: RESP: ALBUTEROL 2.5 MG/IPRATROPIUM 0.5 MG NEB (SCH) NEB ×4 (08:28→19:39)
[2017-02-04] MEDS: SODIUM CHLOR 0.9% 1000 ML INJ 1,000 ML IV SCH ×3 (08:48→21:15)
[2017-02-04] MEDS: BUDESONIDE-FORMOTEROL 160/4.5 MCG INHALER INH SCH ×2 (08:49→21:30)
[2017-02-04] MEDS: THIAMINE HCL 100 MG TAB PO SCH (08:50)
[2017-02-04] MEDS: DOCUSATE SODIUM 100 MG CAP PO SCH ×2 (08:50→21:31)
[2017-02-04] MEDS: PANTOPRAZOLE SOD 40 MG DELAYED RELEASE TAB PO SCH (08:50)
[2017-02-04] MEDS: FOLIC ACID 1 MG TAB PO SCH (08:51)
[2017-02-04] MEDS: MULTIVITAMINS/MINERALS THERAPEUTIC TAB PO SCH (08:51)
[2017-02-04] MEDS: SPIRONOLACTONE 25 MG TAB PO SCH ×2 (08:51→17:41)
[2017-02-04] MEDS: SODIUM CHLORIDE 0.9% FLUSH 10 ML FLUSH IVF PRN (08:51)
[2017-02-04] MEDS: methylPREDNISolone SOD SUCC 40 MG/1 ML VIAL IV SCH ×2 (08:51→21:31)
[2017-02-04] MEDS: METOPROLOL TARTRATE 50 MG TAB PO SCH ×2 (08:51→21:31)
[2017-02-04] MEDS: cefTRIAXone INJ 1,000 MG in SODIUM CHLORIDE 0.9% INJ 100 ML IV SCH (14:31)
--- NOTE | 2017-02-04 17:33 | HHI.PR ---
Subjective Remarks Alert and C/O weakness. Good output. Sodium better. Used Bipap last PM Objective Vital Signs Date Time Temp Pulse Resp B/P Pulse Ox O2 Delivery O2 Flow Rate FiO2 02/04/17 16:00 98.2 87 19 108/59 97 02/04/17 12:00 98.1 87 29 113/71 94 02/04/17 08:28 98 Nasal Cannula 2.00 02/04/17 08:00 97.9 81 14 117/55 97 02/04/17 04:00 97.9 86 18 116/73 96 02/04/17 00:00 98.3 87 10 121/63 93 02/03/17 23:23 100 50 02/03/17 20:06 97 Nasal Cannula 2.00 02/03/17 20:00 98.4 95 17 104/59 96 I/O 02/03/17 02/03/17 02/03/17 02/04/17 02/04/17 02/04/17 07:00 15:00 23:00 07:00 15:00 23:00 Intake Total 1546 ml 926 ml 610 ml 922 ml Output Total 800 ml 500 ml 600 ml 1500 ml Balance 746 ml 426 ml 10 ml -578 ml Intake Oral 560 ml 360 ml 0 ml 250 ml IV Total 986 ml 566 ml 610 ml 672 ml Output Urine Total 800 ml 500 ml 600 ml 1500 ml # Voids 4 # Bowel Movements 1 0 0 Result Diagram: 02/04/17 0343 02/04/17 1134 Objective Remarks This middle-aged obese white male's face is plethoric. HEENT: Head normocephalic. Pupils reactive. Tongue is dry. Throat is clear. Nasal mucosae clear Neck: Supple. No bruits or thyroid enlargement, no lymphadenopathy. Chest: Equal movements with distant breath sounds, wheezes throughout both lung pablo. Prolonged expirations. Heart: The heart sounds are irregular, S1-S2, no murmur. Abdomen: Soft, protuberant, no masses, no organomegaly. Extremities: Edema 2+ with diminished pulses. Ecchymotic areas of the skin. Neurologic: Reflexes 1+ with no gross motor deficits. Cranial nerves grossly intact. Rectal: Exam is deferred. Assessment and Plan Assessment and Plan IMPRESSION 1. COPD with chronic bronchitis and emphysema 2. Obstructive sleep apnea syndrome 3. Hyponatremia. 4. Chronic back pain Plan : 1. Continue nebs qid Duoneb. 2. Bipap at HS 12/5. 3. Will get Sleep study as OP. 4. Continue diuretic daily 5. BMP, PFT in am. 6. Up with help 7. Cont Xarelto 15 mg Long Reid MD February 04, 2017 17:33
[2017-02-04] MEDS: RIVAROXABAN 20 MG TAB PO SCH (17:41)
[2017-02-04] MEDS ORDERED: 3% SALINE INJ 250 ML IV ONE (20:15)
[2017-02-04] MEDS: ATORVASTATIN 40 MG TAB PO SCH (21:31)
[2017-02-05] VITALS (14 sets, daily range): BP systolic 90–140; BP diastolic 50–80; PULSE 77–97; RESP 10–22; TEMP 97.9–98.7; O2SAT 94–99
[2017-02-05] MEDS: CHLORHEXIDINE GLUCONATE 2 % 1 PACK (2 CLOTHS)(taper/protocol) TOPICAL SCH (03:59)
[2017-02-05] MEDS: RESP: ALBUTEROL 2.5 MG/IPRATROPIUM 0.5 MG NEB (SCH) NEB ×4 (06:36→21:03)
[2017-02-05] MEDS: BUDESONIDE-FORMOTEROL 160/4.5 MCG INHALER INH SCH ×2 (07:57→20:24)
[2017-02-05] MEDS: METOPROLOL TARTRATE 50 MG TAB PO SCH ×2 (07:58→20:24)
[2017-02-05] MEDS: FUROSEMIDE 40 MG/4 ML VIAL IV PUSH SCH (07:58)
[2017-02-05] MEDS: MULTIVITAMINS/MINERALS THERAPEUTIC TAB PO SCH (07:58)
[2017-02-05] MEDS: methylPREDNISolone SOD SUCC 40 MG/1 ML VIAL IV SCH ×2 (07:58→20:24)
[2017-02-05] MEDS: FOLIC ACID 1 MG TAB PO SCH (07:58)
[2017-02-05] MEDS: SPIRONOLACTONE 25 MG TAB PO SCH ×2 (07:58→16:55)
[2017-02-05] MEDS: DOCUSATE SODIUM 100 MG CAP PO SCH ×2 (07:58→20:25)
[2017-02-05] MEDS: THIAMINE HCL 100 MG TAB PO SCH (07:58)
[2017-02-05] MEDS: PANTOPRAZOLE SOD 40 MG DELAYED RELEASE TAB PO SCH (07:59)
[2017-02-05] MEDS: SODIUM CHLOR 0.9% 1000 ML INJ 1,000 ML IV SCH (11:13)
--- NOTE | 2017-02-05 12:36 | HHI.PR ---
Subjective Remarks Follow-up hyponatremia/COPD exacerbation with bronchitis 02/05/17-patient seen and examined, denies any significant shortness of breath. Sodium up to 125. CIWA score of 0 Objective Vitals Vital Signs Date Time Temp Pulse Resp B/P Pulse Ox O2 Delivery O2 Flow Rate FiO2 02/05/17 11:26 94 Nasal Cannula 2.00 02/05/17 08:35 98 Nasal Cannula 5.00 02/05/17 08:00 98.1 82 22 140/65 99 02/05/17 04:00 97.9 87 15 122/69 98 02/05/17 00:08 98 50 02/05/17 00:00 98.2 89 10 90/52 98 02/04/17 22:35 99 50 02/04/17 20:00 98.6 96 19 117/64 96 02/04/17 19:41 96 Nasal Cannula 2.00 02/04/17 16:00 98.2 87 19 108/59 97 I/O 02/04/17 02/04/17 02/04/17 02/05/17 02/05/17 02/05/17 07:00 15:00 23:00 07:00 15:00 23:00 Intake Total 610 ml 922 ml 765 ml 421 ml Output Total 600 ml 1500 ml 325 ml 1100 ml Balance 10 ml -578 ml 440 ml -679 ml Intake Oral 0 ml 250 ml 120 ml 0 ml IV Total 610 ml 672 ml 645 ml 421 ml Output Urine Total 600 ml 1500 ml 325 ml 1100 ml # Voids 4 # Bowel Movements 0 0 0 Result Diagram: 02/04/17 0343 02/05/17 0042 Imaging Last Impressions Chest CT 02/03/17 1253 Signed Impressions: Service Date/Time: Friday, February 03, 2017 13:42 - CONCLUSION: Subcentimeter pleural-based nodule left lower lobe. Minimal basilar atelectasis or scarring. Renny Hinojosa MD Chest X-Ray 02/03/17 0054 Signed Impressions: Service Date/Time: Friday, February 03, 2017 00:56 - CONCLUSION: Left lung base opacity possibly technical. KLinda Alvarez MD Lower Extremity Ultrasound 02/02/17 0000 Signed Impressions: Service Date/Time: Friday, February 03, 2017 01:40 - CONCLUSION: Normal examination. KLinda Bal Shamlou, MD Objective Remarks GENERAL: NAD SKIN: Warm and dry. HEAD: Normocephalic. EYES: No scleral icterus. No injection or drainage. NECK: Supple, trachea midline. No JVD or lymphadenopathy. CARDIOVASCULAR: Regular rate and rhythm without murmurs, gallops, or rubs. RESPIRATORY: Breath sounds decreased bilaterally. No accessory muscle use. GASTROINTESTINAL: Abdomen soft, non-tender, nondistended. MUSCULOSKELETAL: No cyanosis, or edema. BACK: Nontender without obvious deformity. No CVA tenderness. A/P Problem List: (1) COPD exacerbation ICD Code: J44.1 Status: Acute (2) Acute and chronic respiratory failure ICD Code: J96.20 Status: Acute (3) Chronic diastolic (congestive) heart failure ICD Code: I50.32 Status: Acute (4) Pulmonary hypertension ICD Code: I27.2 Status: Acute (5) Hyponatremia ICD Code: E87.1 Status: Acute Assessment and Plan 61-year-old man with 1. Severe COPD exacerbation Improving with Solu-Medrol 40 mg IV every 12 hours, bronchodilators, Symbicort, Rocephin Appreciate input from pulmonary medicine and continue with BiPAP at bedtime when necessary. Outpatient sleep study 2. Hyponatremia, severe- improving Improving with gentle IV fluid hydration with NS, monitor serial sodium 3. Chronic diastolic heart failure. Currently on Lasix IV, Aldactone, 4. chronic renal insufficiency; seems to be at his baseline- will monitor 5. right leg wound Continue with treatment per wound care 6. atrial fibrillation: Rate controlled on Lopressor 50 mg by mouth twice a day, Xarelto 7. Hyperlipidemia Continue statin 8. Alcohol abuse/withdrawal CIWA score of 0 02/05/17, continue with rally pack, C[place]UN[place] protocol DVT prophylaxis with Xarelto. Total critical care time spent 32 minutes Hemal Wei MD February 05, 2017 12:36
[2017-02-05] MEDS: cefTRIAXone INJ 1,000 MG in SODIUM CHLORIDE 0.9% INJ 100 ML IV SCH (13:14)
[2017-02-05] MEDS: RIVAROXABAN 20 MG TAB PO SCH (16:56)
--- NOTE | 2017-02-05 18:10 | HHI.PR ---
Subjective Remarks Alert and feeling better. Sodium 128. Used Bipap. Good output. Needs a sleep study Objective Vital Signs Date Time Temp Pulse Resp B/P Pulse Ox O2 Delivery O2 Flow Rate FiO2 02/05/17 16:00 98.7 83 15 91/50 96 02/05/17 16:00 83 02/05/17 14:00 90 02/05/17 12:00 98.4 81 18 115/67 94 02/05/17 12:00 81 02/05/17 11:26 94 Nasal Cannula 2.00 02/05/17 10:00 77 02/05/17 08:35 98 Nasal Cannula 5.00 02/05/17 08:00 98.1 82 22 140/65 99 02/05/17 08:00 82 02/05/17 04:00 97.9 87 15 122/69 98 02/05/17 00:08 98 50 02/05/17 00:00 98.2 89 10 90/52 98 02/04/17 22:35 99 50 02/04/17 20:00 98.6 96 19 117/64 96 02/04/17 19:41 96 Nasal Cannula 2.00 I/O 02/04/17 02/04/17 02/04/17 02/05/17 02/05/17 02/05/17 07:00 15:00 23:00 07:00 15:00 23:00 Intake Total 610 ml 922 ml 765 ml 421 ml 1400 ml Output Total 600 ml 1500 ml 325 ml 1100 ml 1525 ml 300 ml Balance 10 ml -578 ml 440 ml -679 ml -125 ml -300 ml Intake Oral 0 ml 250 ml 120 ml 0 ml 720 ml IV Total 610 ml 672 ml 645 ml 421 ml 680 ml Output Urine Total 600 ml 1500 ml 325 ml 1100 ml 1525 ml 300 ml # Voids 4 # Bowel Movements 0 0 0 0 Result Diagram: 02/04/17 0343 02/05/17 1323 Objective Remarks This middle-aged obese white male.in no distress HEENT: Head normocephalic. Pupils reactive. Tongue is dry. Throat is clear. Nasal mucosae clear Neck: Supple. No bruits or thyroid enlargement, no lymphadenopathy. Chest: Equal movements with distant breath sounds, Prolonged expirations. Heart: The heart sounds are irregular, S1-S2, no murmur. Abdomen: Soft, protuberant, no masses, no organomegaly. Extremities: Edema 2+ with diminished pulses. Ecchymotic areas of the skin. Neurologic: Reflexes 1+ with no gross motor deficits. Cranial nerves grossly intact. Rectal: Exam is deferred. Assessment and Plan Assessment and Plan IMPRESSION 1. COPD with chronic bronchitis and emphysema 2. Obstructive sleep apnea syndrome 3. Hyponatremia. 4. Chronic back pain Plan : 1. Continue nebs qid Duoneb. 2. D/C IV antibiotic. 3. Will get Sleep study as OP. 4. Continue diuretic daily 5. BMP, in am. 6. Add Symbicort Inhaler , 2puffs bid 7. Cont Xarelto 15 mg Long Reid MD February 05, 2017 18:10
[2017-02-05 18:14] LABS: BICARBONATE 33.2 MEQ/L (21.0-32.0); POTASSIUM 4.8 MEQ/L (3.5-5.1)
[2017-02-05] MEDS: ATORVASTATIN 40 MG TAB PO SCH (20:25)
[2017-02-05] MEDS: ACETAMINOPHEN 325 MG TAB PO PRN (20:25)
[2017-02-05] MEDS: ONDANSETRON HCL 4 MG/2 ML VIAL IV PRN (20:25)
[2017-02-05] MEDS ORDERED: BUDESONIDE-FORMOTEROL 160/4.5 MCG INHALER INH SCH (21:00)
[2017-02-06] VITALS (15 sets, daily range): BP systolic 101–124; BP diastolic 64–73; PULSE 82–98; RESP 10–20; TEMP 97.6–98.4; O2SAT 94–98
[2017-02-06] MEDS: SODIUM CHLOR 0.9% 1000 ML INJ 1,000 ML IV SCH ×2 (00:06→14:23)
[2017-02-06] MEDS: CHLORHEXIDINE GLUCONATE 2 % 1 PACK (2 CLOTHS)(taper/protocol) TOPICAL SCH (04:00)
[2017-02-06] MEDS: ONDANSETRON HCL 4 MG/2 ML VIAL IV PRN (06:13)
[2017-02-06] MEDS: RESP: ALBUTEROL 2.5 MG/IPRATROPIUM 0.5 MG NEB (SCH) NEB ×4 (07:57→19:44)
[2017-02-06] MEDS: methylPREDNISolone SOD SUCC 40 MG/1 ML VIAL IV SCH ×2 (08:46→20:34)
[2017-02-06] MEDS: DOCUSATE SODIUM 100 MG CAP PO SCH ×2 (08:46→20:34)
[2017-02-06] MEDS: SPIRONOLACTONE 25 MG TAB PO SCH ×2 (08:46→17:01)
[2017-02-06] MEDS: MULTIVITAMINS/MINERALS THERAPEUTIC TAB PO SCH (08:46)
[2017-02-06] MEDS: METOPROLOL TARTRATE 50 MG TAB PO SCH ×2 (08:46→20:34)
[2017-02-06] MEDS: THIAMINE HCL 100 MG TAB PO SCH (08:46)
[2017-02-06] MEDS: PANTOPRAZOLE SOD 40 MG DELAYED RELEASE TAB PO SCH (08:46)
[2017-02-06] MEDS: FOLIC ACID 1 MG TAB PO SCH (08:46)
[2017-02-06] MEDS: BUDESONIDE-FORMOTEROL 160/4.5 MCG INHALER INH SCH ×2 (08:47→20:33)
[2017-02-06] MEDS: FUROSEMIDE 40 MG/4 ML VIAL IV PUSH SCH (08:47)
--- NOTE | 2017-02-06 12:15 | HHI.PR ---
Subjective Remarks Follow-up hyponatremia/COPD exacerbation with bronchitis 02/05/17-patient seen and examined, denies any significant shortness of breath. Sodium up to 125. CIWA score of 0 02/06/17-patient seen and examined; CIWA of 2; had episode of emesis/diarrhea last night. would like to go home to be with his MOM who is coming from out of state. Na 129 Objective Vitals Vital Signs Date Time Temp Pulse Resp B/P Pulse Ox O2 Delivery O2 Flow Rate FiO2 02/06/17 10:00 86 02/06/17 08:00 86 02/06/17 08:00 98.0 86 15 123/73 98 02/06/17 07:57 97 Nasal Cannula 2.00 02/06/17 06:00 91 02/06/17 04:00 92 02/06/17 04:00 97.6 92 10 120/68 95 02/06/17 02:00 91 02/06/17 00:00 97.9 98 12 109/72 98 02/06/17 00:00 98 02/05/17 22:00 97 02/05/17 21:25 18 02/05/17 21:03 94 Nasal Cannula 2.00 02/05/17 20:00 98.1 96 16 132/80 95 02/05/17 20:00 96 02/05/17 18:00 95 02/05/17 16:00 98.7 83 15 91/50 96 02/05/17 16:00 83 02/05/17 14:00 90 I/O 02/05/17 02/05/17 02/05/17 02/06/17 02/06/17 02/06/17 07:00 15:00 23:00 07:00 15:00 23:00 Intake Total 421 ml 1400 ml 814 ml 696 ml Output Total 1100 ml 1525 ml 560 ml 400 ml Balance -679 ml -125 ml 254 ml 296 ml Intake Oral 0 ml 720 ml 120 ml 60 ml IV Total 421 ml 680 ml 694 ml 636 ml Output Urine Total 1100 ml 1525 ml 500 ml 400 ml Emesis 60 ml # Bowel Movements 0 0 0 0 Result Diagram: 02/04/17 0343 02/06/17 0504 Objective Remarks GENERAL: NAD SKIN: Warm and dry. HEAD: Normocephalic. EYES: No scleral icterus. No injection or drainage. NECK: Supple, trachea midline. No JVD or lymphadenopathy. CARDIOVASCULAR: Regular rate and rhythm without murmurs, gallops, or rubs. RESPIRATORY: Breath sounds decreased bilaterally. No accessory muscle use. GASTROINTESTINAL: Abdomen soft, non-tender, nondistended. MUSCULOSKELETAL: No cyanosis, or edema. BACK: Nontender without obvious deformity. No CVA tenderness. A/P Problem List: (1) COPD exacerbation ICD Code: J44.1 Status: Acute (2) Acute and chronic respiratory failure ICD Code: J96.20 Status: Acute (3) Chronic diastolic (congestive) heart failure ICD Code: I50.32 Status: Acute (4) Pulmonary hypertension ICD Code: I27.2 Status: Acute (5) Hyponatremia ICD Code: E87.1 Status: Acute Assessment and Plan 61-year-old man with 1. Severe COPD exacerbation Improving with Solu-Medrol 40 mg IV every 12 hours, bronchodilators, Symbicort, Rocephin Appreciate input from pulmonary medicine and continue with BiPAP at bedtime when necessary. Outpatient sleep study 2. Hyponatremia, severe- improving Improving with gentle IV fluid hydration with NS, monitor serial sodium. Na 129 today 3. Chronic diastolic heart failure. Currently on Lasix IV, Aldactone, 4. chronic renal insufficiency; seems to be at his baseline- will monitor 5. right leg wound Continue with treatment per wound care 6. atrial fibrillation: Rate controlled on Lopressor 50 mg by mouth twice a day, Xarelto 7. Hyperlipidemia Continue statin 8. Alcohol abuse/withdrawal CIWA score of 0 02/05/17, continue with rally pack, TRAVIS protocol DVT prophylaxis with Xarelto. Total critical care time spent 33 minutes Hemal Wei MD February 06, 2017 12:14
--- NOTE | 2017-02-06 12:56 | HHI.PR ---
Subjective Remarks Alert and feeling better. Sodium 129. wants to go home Good output. Needs a sleep study as OP.ill arrange Objective Vital Signs Date Time Temp Pulse Resp B/P Pulse Ox O2 Delivery O2 Flow Rate FiO2 02/06/17 10:00 86 02/06/17 08:00 86 02/06/17 08:00 98.0 86 15 123/73 98 02/06/17 07:57 97 Nasal Cannula 2.00 02/06/17 06:00 91 02/06/17 04:00 92 02/06/17 04:00 97.6 92 10 120/68 95 02/06/17 02:00 91 02/06/17 00:00 97.9 98 12 109/72 98 02/06/17 00:00 98 02/05/17 22:00 97 02/05/17 21:25 18 02/05/17 21:03 94 Nasal Cannula 2.00 02/05/17 20:00 98.1 96 16 132/80 95 02/05/17 20:00 96 02/05/17 18:00 95 02/05/17 16:00 98.7 83 15 91/50 96 02/05/17 16:00 83 02/05/17 14:00 90 I/O 02/05/17 02/05/17 02/05/17 02/06/17 02/06/17 02/06/17 07:00 15:00 23:00 07:00 15:00 23:00 Intake Total 421 ml 1400 ml 814 ml 696 ml Output Total 1100 ml 1525 ml 560 ml 400 ml Balance -679 ml -125 ml 254 ml 296 ml Intake Oral 0 ml 720 ml 120 ml 60 ml IV Total 421 ml 680 ml 694 ml 636 ml Output Urine Total 1100 ml 1525 ml 500 ml 400 ml Emesis 60 ml # Bowel Movements 0 0 0 0 Result Diagram: 02/04/17 0343 02/06/17 0504 Objective Remarks This middle-aged obese white male.in no distress HEENT: Head normocephalic. Pupils reactive. Throat is clear. Nasal mucosae clear Neck: Supple. No bruits or thyroid enlargement, no lymphadenopathy. Chest: Equal movements with distant breath sounds, with wheezes and Prolonged expirations. Heart: The heart sounds are irregular, S1-S2, no murmur. Abdomen: Soft, protuberant, no masses, no organomegaly. Extremities: Edema 1+ with diminished pulses. Ecchymotic areas of the skin. Neurologic: Reflexes 1+ with no gross motor deficits. Cranial nerves grossly intact. Rectal: Exam is deferred. Assessment and Plan Assessment and Plan IMPRESSION 1. COPD with chronic bronchitis and emphysema 2. Obstructive sleep apnea syndrome 3. Hyponatremia. 4. Chronic back pain Plan : 1. Continue nebs qid Duoneb. 2. Ceftin 500 mg bid 3. Will get Sleep study as OP. 4. Continue diuretic daily 5. BMP ,CBC 6. Add Symbicort Inhaler , 2puffs bid 7. Cont Xarelto 15 mg 8. To rehab soon Long Reid MD February 06, 2017 12:56
[2017-02-06] MEDS: RIVAROXABAN 20 MG TAB PO SCH (17:01)
[2017-02-06 20:03] LABS: BICARBONATE 31.9 MEQ/L (21.0-32.0)
[2017-02-06] MEDS: CEFUROXIME AXETIL 500 MG TAB PO SCH (20:34)
[2017-02-06] MEDS: ATORVASTATIN 40 MG TAB PO SCH (20:34)
[2017-02-06] MEDS: ACETAMINOPHEN 325 MG TAB PO PRN (20:46)
[2017-02-07] VITALS (14 sets, daily range): BP systolic 100–131; BP diastolic 58–79; PULSE 76–91; RESP 12–21; TEMP 97.2–98.9; O2SAT 93–100
[2017-02-07] MEDS: CHLORHEXIDINE GLUCONATE 2 % 1 PACK (2 CLOTHS)(taper/protocol) TOPICAL SCH (04:00)
[2017-02-07] MEDS: SODIUM CHLOR 0.9% 1000 ML INJ 1,000 ML IV SCH (04:57)
[2017-02-07] MEDS: RESP: ALBUTEROL 2.5 MG/IPRATROPIUM 0.5 MG NEB (SCH) NEB ×4 (08:12→19:40)
[2017-02-07] MEDS: METOPROLOL TARTRATE 50 MG TAB PO SCH ×2 (09:27→22:43)
[2017-02-07] MEDS: CEFUROXIME AXETIL 500 MG TAB PO SCH ×2 (09:27→22:43)
[2017-02-07] MEDS: MULTIVITAMINS/MINERALS THERAPEUTIC TAB PO SCH (09:27)
[2017-02-07] MEDS: THIAMINE HCL 100 MG TAB PO SCH (09:27)
[2017-02-07] MEDS: DOCUSATE SODIUM 100 MG CAP PO SCH ×2 (09:27→22:43)
[2017-02-07] MEDS: SPIRONOLACTONE 25 MG TAB PO SCH ×2 (09:27→18:31)
[2017-02-07] MEDS: PANTOPRAZOLE SOD 40 MG DELAYED RELEASE TAB PO SCH (09:27)
[2017-02-07] MEDS: FOLIC ACID 1 MG TAB PO SCH (09:27)
[2017-02-07] MEDS: methylPREDNISolone SOD SUCC 40 MG/1 ML VIAL IV SCH (09:27)
[2017-02-07] MEDS: FUROSEMIDE 40 MG/4 ML VIAL IV PUSH SCH (09:28)
[2017-02-07] MEDS: BUDESONIDE-FORMOTEROL 160/4.5 MCG INHALER INH SCH ×2 (09:31→22:44)
--- NOTE | 2017-02-07 11:00 | HHI.PR ---
Subjective Remarks Follow-up hyponatremia/COPD exacerbation with bronchitis 02/05/17-patient seen and examined, denies any significant shortness of breath. Sodium up to 125. CIWA score of 0 02/06/17-patient seen and examined; CIWA of 2; had episode of emesis/diarrhea last night. would like to go home to be with his MOM who is coming from out of state. Na 129 02/07/17-patient seen and examined, sodium 130 and CIWA 0; no acute event overnight and afebrile. Blood culture on February 03 was positive Objective Vitals Vital Signs Date Time Temp Pulse Resp B/P Pulse Ox O2 Delivery O2 Flow Rate FiO2 02/07/17 08:13 99 Nasal Cannula 1.00 02/07/17 06:00 78 02/07/17 04:30 97 Nasal Cannula 2.00 02/07/17 04:00 79 02/07/17 04:00 98.1 79 16 114/79 96 02/07/17 02:00 76 02/07/17 01:04 97 30 02/07/17 00:00 97.9 78 12 112/68 97 02/07/17 00:00 78 02/06/17 22:00 89 02/06/17 21:46 20 02/06/17 21:39 97 30 02/06/17 20:00 97.7 93 20 124/69 96 02/06/17 20:00 93 02/06/17 19:43 95 Nasal Cannula 2.00 02/06/17 18:00 88 02/06/17 16:00 98.4 84 18 107/64 96 02/06/17 16:00 84 02/06/17 14:00 82 02/06/17 12:00 82 02/06/17 12:00 98.0 82 20 101/67 94 I/O 02/06/17 02/06/17 02/06/17 02/07/17 02/07/17 02/07/17 06:59 14:59 22:59 06:59 14:59 22:59 Intake Total 696 ml 1285 ml 690 ml 615 ml Output Total 400 ml 800 ml 500 ml 450 ml Balance 296 ml 485 ml 190 ml 165 ml Intake Oral 60 ml 720 ml 120 ml 60 ml IV Total 636 ml 565 ml 570 ml 555 ml Output Urine Total 400 ml 800 ml 500 ml 450 ml # Bowel Movements 0 0 0 Result Diagram: 02/04/17 0343 02/06/17 1923 Objective Remarks GENERAL: NAD SKIN: Warm and dry. HEAD: Normocephalic. EYES: No scleral icterus. No injection or drainage. NECK: Supple, trachea midline. No JVD or lymphadenopathy. CARDIOVASCULAR: Regular rate and rhythm without murmurs, gallops, or rubs. RESPIRATORY: Breath sounds decreased bilaterally. No accessory muscle use. GASTROINTESTINAL: Abdomen soft, non-tender, nondistended. MUSCULOSKELETAL: No cyanosis, or edema. BACK: Nontender without obvious deformity. No CVA tenderness. A/P Problem List: (1) COPD exacerbation ICD Code: J44.1 Status: Acute (2) Acute and chronic respiratory failure ICD Code: J96.20 Status: Acute (3) Chronic diastolic (congestive) heart failure ICD Code: I50.32 Status: Acute (4) Pulmonary hypertension ICD Code: I27.2 Status: Acute (5) Hyponatremia ICD Code: E87.1 Status: Acute Assessment and Plan 61-year-old man with 1. Severe COPD exacerbation Improving with Solu-Medrol 40 mg IV every 12 hours however we will switch to by mouth prednisone 20 mg twice a day, continue bronchodilators, Symbicort, Ceftin Appreciate input from pulmonary medicine and continue with BiPAP at bedtime when necessary. Outpatient sleep study 2. Hyponatremia, severe- improving Improving with gentle IV fluid hydration with NS, monitor serial sodium. Na 130 today 3. Chronic diastolic heart failure. Currently on Lasix IV, Aldactone, 4. chronic renal insufficiency; seems to be at his baseline- will monitor 5. right leg wound Continue with treatment per wound care 6. atrial fibrillation: Rate controlled on Lopressor 50 mg by mouth twice a day, Xarelto 7. Hyperlipidemia Continue statin 8. Alcohol abuse/withdrawal CIWA score of 0 02/07/17, continue with rally pack, TRAVIS protocol Positive blood culture 02/03/17: Will repeat blood culture 2 today DVT prophylaxis with Xarelto. Transfer to Hemal Arrieta MD February 07, 2017 11:00
[2017-02-07] MEDS: RIVAROXABAN 20 MG TAB PO SCH (19:30)
[2017-02-07] MEDS: ATORVASTATIN 40 MG TAB PO SCH (22:42)
[2017-02-07] MEDS: LORazepam 1 MG TAB PO PRN (22:42)
[2017-02-07] MEDS: predniSONE 20 MG TAB PO SCH (22:43)
[2017-02-08] VITALS (11 sets, daily range): BP systolic 121–135; BP diastolic 62–82; PULSE 71–87; RESP 20–23; TEMP 96.5–97.6; O2SAT 96–100
[2017-02-08] MEDS: CHLORHEXIDINE GLUCONATE 2 % 1 PACK (2 CLOTHS)(taper/protocol) TOPICAL SCH (03:56)
[2017-02-08] MEDS: RESP: ALBUTEROL 2.5 MG/IPRATROPIUM 0.5 MG NEB (SCH) NEB ×4 (08:00→20:12)
[2017-02-08] MEDS: predniSONE 20 MG TAB PO SCH ×2 (09:00→20:32)
[2017-02-08] MEDS: FUROSEMIDE 40 MG/4 ML VIAL IV PUSH SCH (09:28)
[2017-02-08] MEDS: FOLIC ACID 1 MG TAB PO SCH (09:28)
[2017-02-08] MEDS: SPIRONOLACTONE 25 MG TAB PO SCH ×2 (09:28→17:28)
[2017-02-08] MEDS: CEFUROXIME AXETIL 500 MG TAB PO SCH ×2 (09:28→20:31)
[2017-02-08] MEDS: THIAMINE HCL 100 MG TAB PO SCH (09:28)
[2017-02-08] MEDS: PANTOPRAZOLE SOD 40 MG DELAYED RELEASE TAB PO SCH (09:28)
[2017-02-08] MEDS: MULTIVITAMINS/MINERALS THERAPEUTIC TAB PO SCH (09:28)
[2017-02-08] MEDS: DOCUSATE SODIUM 100 MG CAP PO SCH ×2 (09:28→20:31)
[2017-02-08] MEDS: METOPROLOL TARTRATE 50 MG TAB PO SCH ×2 (09:28→20:32)
[2017-02-08] MEDS: BUDESONIDE-FORMOTEROL 160/4.5 MCG INHALER INH SCH ×2 (09:30→20:31)
[2017-02-08] MEDS: SODIUM CHLOR 0.9% 1000 ML INJ 1,000 ML IV SCH ×2 (12:38→19:10)
--- NOTE | 2017-02-08 13:33 | HHI.PR ---
Subjective Remarks Follow-up hyponatremia/COPD exacerbation with bronchitis 02/05/17-patient seen and examined, denies any significant shortness of breath. Sodium up to 125. CIWA score of 0 02/06/17-patient seen and examined; CIWA of 2; had episode of emesis/diarrhea last night. would like to go home to be with his MOM who is coming from out of state. Na 129 02/07/17-patient seen and examined, sodium 130 and CIWA 0; no acute event overnight and afebrile. Blood culture on February 03 was positive 02/08/17-patient seen and examined, appears stable and denies any significant shortness of breath. Currently his IV fluid will discontinue accidentally after transfer to [facility]. Objective Vitals Vital Signs Date Time Temp Pulse Resp B/P Pulse Ox O2 Delivery O2 Flow Rate FiO2 02/08/17 08:01 99 Nasal Cannula 2.00 02/08/17 07:50 97.6 71 20 123/72 96 02/08/17 04:00 96.9 87 22 135/82 99 02/08/17 03:15 96 Nasal Cannula 2.00 02/08/17 00:00 96.6 82 20 123/74 98 02/07/17 23:30 98 30 02/07/17 20:00 97.2 91 19 131/79 98 02/07/17 16:48 98.3 79 21 100/67 93 02/07/17 15:53 94 Nasal Cannula 2.00 I/O 02/07/17 02/07/17 02/07/17 02/08/17 02/08/17 02/08/17 07:00 15:00 23:00 07:00 15:00 23:00 Intake Total 615 ml 979 ml 480 ml 240 ml Output Total 450 ml 2450 ml 250 ml 500 ml Balance 165 ml -1471 ml 230 ml -260 ml Intake Oral 60 ml 480 ml 480 ml 240 ml IV Total 555 ml 499 ml Output Urine Total 450 ml 2450 ml 250 ml 500 ml # Bowel Movements 0 0 Result Diagram: 02/04/17 0343 02/06/17 192 Imaging Last Impressions Chest CT 02/03/17 1253 Signed Impressions: Service Date/Time: Friday, February 03, 2017 13:42 - CONCLUSION: Subcentimeter pleural-based nodule left lower lobe. Minimal basilar atelectasis or scarring. Renny Hinojosa MD Chest X-Ray 02/03/17 0054 Signed Impressions: Service Date/Time: Friday, February 03, 2017 00:56 - CONCLUSION: Left lung base opacity possibly technical. Deanna Alvarez MD Lower Extremity Ultrasound 02/02/17 0000 Signed Impressions: Service Date/Time: Friday, February 03, 2017 01:40 - CONCLUSION: Normal examination. Deanna Alvarez MD Objective Remarks GENERAL: NAD SKIN: Warm and dry. HEAD: Normocephalic. EYES: No scleral icterus. No injection or drainage. NECK: Supple, trachea midline. No JVD or lymphadenopathy. CARDIOVASCULAR: Regular rate and rhythm without murmurs, gallops, or rubs. RESPIRATORY: Breath sounds decreased bilaterally. No accessory muscle use. GASTROINTESTINAL: Abdomen soft, non-tender, nondistended. MUSCULOSKELETAL: No cyanosis, or edema. BACK: Nontender without obvious deformity. No CVA tenderness. A/P Problem List: (1) COPD exacerbation ICD Code: J44.1 Status: Acute (2) Acute and chronic respiratory failure ICD Code: J96.20 Status: Acute (3) Chronic diastolic (congestive) heart failure ICD Code: I50.32 Status: Acute (4) Pulmonary hypertension ICD Code: I27.2 Status: Acute (5) Hyponatremia ICD Code: E87.1 Status: Acute Assessment and Plan 61-year-old man with 1. Severe COPD exacerbation Improving with Solu-Medrol 40 mg IV every 12 hours however we will switch to by mouth prednisone 20 mg twice a day, continue bronchodilators, Symbicort, Ceftin Appreciate input from pulmonary medicine and continue with BiPAP at bedtime when necessary. Outpatient sleep study 2. Hyponatremia, severe- improving Improving with gentle IV fluid hydration with NS, monitor serial sodium. Na 130 02/07/17, pending repeat sodium today 3. Chronic diastolic heart failure. Currently on Lasix IV, Aldactone, 4. chronic renal insufficiency; seems to be at his baseline- will monitor 5. right leg wound Continue with treatment per wound care 6. atrial fibrillation: Rate controlled on Lopressor 50 mg by mouth twice a day, Xarelto 7. Hyperlipidemia Continue statin 8. Alcohol abuse/withdrawal CIWA score of 0 02/08/17, continue with rally pack, CIWA protocol Positive blood culture 02/03/17: Repeat blood culture NTD DVT prophylaxis with Xarelto. Discharge Planning Likely discharge 02/09/17 Hemal Wei MD February 08, 2017 13:33 Hemal Wei MD February 08, 2017 13:33
[2017-02-08] MEDS: RIVAROXABAN 20 MG TAB PO SCH (17:28)
[2017-02-08] MEDS: LORazepam 1 MG TAB PO PRN (20:31)
[2017-02-08] MEDS: ATORVASTATIN 40 MG TAB PO SCH (20:32)
[2017-02-09] VITALS (12 sets, daily range): BP systolic 105–145; BP diastolic 56–84; PULSE 73–99; RESP 18–24; TEMP 96.3–97.5; O2SAT 96–100
[2017-02-09] MEDS: RESP: ALBUTEROL 2.5 MG/IPRATROPIUM 0.5 MG NEB (SCH) NEB ×4 (07:45→21:06)
[2017-02-09 08:37] LABS: POTASSIUM 5.1 MEQ/L (3.5-5.1)
[2017-02-09] MEDS: CEFUROXIME AXETIL 500 MG TAB PO SCH ×2 (09:00→21:48)
[2017-02-09] MEDS: METOPROLOL TARTRATE 50 MG TAB PO SCH ×2 (09:00→21:48)
[2017-02-09] MEDS: predniSONE 20 MG TAB PO SCH (09:00)
[2017-02-09] MEDS: PANTOPRAZOLE SOD 40 MG DELAYED RELEASE TAB PO SCH (09:01)
[2017-02-09] MEDS: FUROSEMIDE 40 MG/4 ML VIAL IV PUSH SCH (09:01)
[2017-02-09] MEDS: BUDESONIDE-FORMOTEROL 160/4.5 MCG INHALER INH SCH ×2 (09:01→21:48)
[2017-02-09] MEDS: THIAMINE HCL 100 MG TAB PO SCH (09:01)
[2017-02-09] MEDS: SPIRONOLACTONE 25 MG TAB PO SCH ×2 (09:01→16:58)
[2017-02-09] MEDS: DOCUSATE SODIUM 100 MG CAP PO SCH ×2 (09:01→21:48)
[2017-02-09] MEDS ORDERED: VANCOMYCIN INJ 1,000 MG in SODIUM CHLOR 0.9% 250 ML INJ 250 ML IV SCH (11:15)
[2017-02-09] MEDS ORDERED: Vancomycin Consult Pharmacy 1 EA OTHER SCH (11:15)
[2017-02-09] MEDS: SODIUM CHLOR 0.9% 1000 ML INJ 1,000 ML IV SCH ×2 (12:31→21:15)
--- NOTE | 2017-02-09 13:33 | HHI.PR ---
Subjective Remarks Follow-up hyponatremia/COPD exacerbation with bronchitis 02/05/17-patient seen and examined, denies any significant shortness of breath. Sodium up to 125. CIWA score of 0 02/06/17-patient seen and examined; CIWA of 2; had episode of emesis/diarrhea last night. would like to go home to be with his MOM who is coming from out of state. Na 129 02/07/17-patient seen and examined, sodium 130 and CIWA 0; no acute event overnight and afebrile. Blood culture on February 03 was positive 02/08/17-patient seen and examined, appears stable and denies any significant shortness of breath. Currently his IV fluid will discontinue accidentally after transfer to 7 . 02/09/17-patient seen and examined, repeat blood culture positive 1. Patient currently afebrile. States he would like to sign himself out Objective Vitals Vital Signs Date Time Temp Pulse Resp B/P Pulse Ox O2 Delivery O2 Flow Rate FiO2 02/09/17 12:00 96.3 95 18 131/80 99 02/09/17 08:56 88 02/09/17 08:00 96.7 73 18 112/64 98 02/09/17 07:46 98 Nasal Cannula 2.00 02/09/17 04:00 97.1 76 24 130/79 100 02/09/17 00:36 99 30 02/09/17 00:00 96.7 87 22 105/56 100 02/08/17 23:59 86 02/08/17 21:25 99 30 02/08/17 20:13 100 Nasal Cannula 2.00 02/08/17 20:00 97.3 81 23 125/73 100 02/08/17 15:50 96.5 78 20 122/76 99 I/O 02/08/17 02/08/17 02/08/17 02/09/17 02/09/17 02/09/17 07:00 15:00 23:00 07:00 15:00 23:00 Intake Total 240 ml 840 ml 480 ml 1445 ml Output Total 500 ml 1250 ml 1025 ml 600 ml Balance -260 ml -410 ml -545 ml 845 ml Intake Oral 240 ml 840 ml 480 ml 480 ml IV Total 965 ml Output Urine Total 500 ml 1250 ml 1025 ml 600 ml # Bowel Movements 0 Result Diagram: 02/09/17 0730 Objective Remarks GENERAL: NAD SKIN: Warm and dry. HEAD: Normocephalic. EYES: No scleral icterus. No injection or drainage. NECK: Supple, trachea midline. No JVD or lymphadenopathy. CARDIOVASCULAR: Regular rate and rhythm without murmurs, gallops, or rubs. RESPIRATORY: Breath sounds decreased bilaterally. No accessory muscle use. GASTROINTESTINAL: Abdomen soft, non-tender, nondistended. MUSCULOSKELETAL: No cyanosis, or edema. BACK: Nontender without obvious deformity. No CVA tenderness. A/P Problem List: (1) COPD exacerbation ICD Code: J44.1 Status: Acute (2) Acute and chronic respiratory failure ICD Code: J96.20 Status: Acute (3) Chronic diastolic (congestive) heart failure ICD Code: I50.32 Status: Acute (4) Pulmonary hypertension ICD Code: I27.2 Status: Acute (5) Hyponatremia ICD Code: E87.1 Status: Acute Assessment and Plan 61-year-old man with 1. Severe COPD exacerbation Improving with Solu-Medrol 40 mg IV every 12 hours however we will switch to by mouth prednisone 20 mg twice a day, continue bronchodilators, Symbicort, Ceftin Appreciate input from pulmonary medicine and continue with BiPAP at bedtime when necessary. Outpatient sleep study 2. Hyponatremia, severe- improving Improving with gentle IV fluid hydration with NS, monitor serial sodium. Na 130 02/07/17, pending repeat sodium today 3. Chronic diastolic heart failure. Currently on Lasix IV, Aldactone, 4. chronic renal insufficiency; seems to be at his baseline- will monitor 5. right leg wound Continue with treatment per wound care 6. atrial fibrillation: Rate controlled on Lopressor 50 mg by mouth twice a day, Xarelto 7. Hyperlipidemia Continue statin 8. Alcohol abuse/withdrawal CIWA score of 0 02/08/17, continue with TRAVIS ruelas protocol 9. Bacteremia Start vancomycin IV daily and repeat blood culture Consult infectious disease specialist DVT prophylaxis with Xarelto. Hemal Wei MD February 09, 2017 13:33 Hemal Wei MD February 09, 2017 13:33
--- NOTE | 2017-02-09 14:19 | HHI.PR ---
Subjective Remarks Alert and feeling better. wants to go home. On Vanco for Positive blood culture with Staph and Gram +ve rods . Needs a sleep study as OP. Objective Vital Signs Date Time Temp Pulse Resp B/P Pulse Ox O2 Delivery O2 Flow Rate FiO2 02/09/17 12:00 96.3 95 18 131/80 99 02/09/17 08:56 88 02/09/17 08:00 96.7 73 18 112/64 98 02/09/17 07:46 98 Nasal Cannula 2.00 02/09/17 04:00 97.1 76 24 130/79 100 02/09/17 00:36 99 30 02/09/17 00:00 96.7 87 22 105/56 100 02/08/17 23:59 86 02/08/17 21:25 99 30 02/08/17 20:13 100 Nasal Cannula 2.00 02/08/17 20:00 97.3 81 23 125/73 100 02/08/17 15:50 96.5 78 20 122/76 99 I/O 02/08/17 02/08/17 02/08/17 02/09/17 02/09/17 02/09/17 07:00 15:00 23:00 07:00 15:00 23:00 Intake Total 240 ml 840 ml 480 ml 1445 ml Output Total 500 ml 1250 ml 1025 ml 600 ml Balance -260 ml -410 ml -545 ml 845 ml Intake Oral 240 ml 840 ml 480 ml 480 ml IV Total 965 ml Output Urine Total 500 ml 1250 ml 1025 ml 600 ml # Bowel Movements 0 Result Diagram: 02/09/17 0730 Objective Remarks This middle-aged obese white male.in no distress HEENT: Head normocephalic. Pupils reactive. Throat is clear. Nasal mucosae clear Neck: Supple. No bruits or thyroid enlargement, no lymphadenopathy. Chest: Equal movements with distant breath sounds, with wheezes and Prolonged expirations. Heart: The heart sounds are irregular, S1-S2, no murmur. Abdomen: Soft, protuberant, no masses, no organomegaly. Extremities: Edema 1+ with diminished pulses. Ecchymotic areas of the skin. Neurologic: Reflexes 1+ with no gross motor deficits. Cranial nerves grossly intact. Rectal: Exam is deferred. Assessment and Plan Assessment and Plan IMPRESSION 1. COPD with chronic bronchitis and emphysema 2. Obstructive sleep apnea syndrome 3. Hyponatremia. 4. Chronic back pain 5. Bacteremia with Staph. Plan : 1. Continue nebs qid Duoneb. 2. ID consult. 3. Will get Sleep study as OP. 4. Continue diuretic daily 5. BMP ,CBC 6. Add Symbicort Inhaler , 2puffs bid 7. Cont Xarelto 15 mg 8. Continue antibiotics Long Reid MD February 09, 2017 14:19
[2017-02-09] MEDS: VANCOMYCIN INJ 2,000 MG in SODIUM CHLORID 0.9% 500 ML INJ 500 ML IV SCH (15:33)
[2017-02-09] MEDS: metroNIDAZOLE 500 MG INJ 100 ML IV SCH (16:58)
[2017-02-09] MEDS: RIVAROXABAN 20 MG TAB PO SCH (16:58)
--- NOTE | 2017-02-09 18:14 | MB ---
cc: FRANCIS YOON MD DATE OF CONSULTATION: 02/09/2017. REASON FOR CONSULTATION: Bacteremia. Please evaluate and advise. REQUESTING PHYSICIAN: Dr. Wei. HISTORY OF PRESENT ILLNESS: This is a 61-year-old white male who was admitted to the hospital after he presented to the emergency department on 02/02 with respiratory symptoms. The patient has a history of COPD. He reportedly was coughing but not producing any sputum and noted that he was also having fever and chills. He was found to have abnormal labs with a low sodium of 115. The patient was admitted for correction of the sodium. He was also noted to have renal failure of a chronic nature. Blood cultures were taken on admission and one set has pleomorphic gram-positive rods and staph coagulase-negative and another set has staph coagulase-negative with one bottle identified as staph hominis. The blood cultures were repeated on 02/07 and one bottle has staph epidermidis. The patient's white blood cell count has been normal until 02/04 when it was 212.0. He has been afebrile. The patient has an ulcer on the right tibia. He states that it has been present there for months. He has had dressing changes. He states that sometimes he develops fluid-filled blisters and then they break and then the wound does not heal. There is currently a foul odor to the drainage at the anterior tibia. The patient currently has a peripheral IV catheter in the left upper extremity. Currently he is sitting up in a chair and he is in no acute distress. PAST MEDICAL HISTORY: 1. COPD. The patient has home oxygen. 2. Atrial fibrillation. 3. Hypertension. 4. Hyperlipidemia. 5. Coronary artery disease. 6. History of CVA. 7. Chronic leg edema. 8. Sleep apnea. 9. History of cardiac ablation for atrial fibrillation. 10. Appendectomy. 11. Right ankle surgery. 12. History of myocardial infarction. 13. Polysubstance abuse. ALLERGIES: NO KNOWN DRUG ALLERGIES. MEDICATIONS: 1. Vancomycin. 2. Deltasone. 3. Ceftin. 4. Lasix. 5. Xarelto. 6. Lipitor 7. Thiamine. 8. Ativan PRN. 9. DuoNeb. 10. Protonix. 11. Aldactone. SOCIAL HISTORY: No tobacco or alcohol. No illicit drugs. FAMILY HISTORY: Noncontributory. REVIEW OF SYSTEMS: Negative on ten-point review. PHYSICAL EXAMINATION: GENERAL: This is a morbidly obese male who is in no acute distress. He is awake and alert and oriented. VITAL SIGNS: Temperature 96.3, blood pressure 131/80, heart rate 95, respirations 18. HEAD, EYES, EARS, NOSE, THROAT: The head is atraumatic. Extraocular movements grossly intact. Pupils reactive to light. No icterus. Oropharynx with moist mucosa. No visible lesions. NECK: The neck is supple without adenopathy or swelling. LUNGS: Clear breath sounds. HEART: Irregular rate and rhythm. No murmurs, rubs or gallops. ABDOMEN: Obese. Soft. Diminished bowel sounds. Nontender. RECTAL: Not performed. EXTREMITIES: No clubbing, cyanosis or edema. The patient has increased size of the right lower extremity. Chronic dry skin and ulceration is present at the lower aspect of the tibia anteriorly on the right leg with serous drainage and foul-smelling odor. The skin of the tibia is extremely dry and scaling and there are scratch quijano on the left tibia. SKIN: Diffuse erythematous hue throughout. No discrete rash. NEUROLOGIC: Nonfocal. PSYCHIATRIC: The patient is calm and cooperative. LABORATORY DATA: WBCs 12.0, platelets 226,000, 93% neutrophils, hemoglobin 10.6. Creatinine 1.28, BUN 45, estimated GFR 57, sodium 130. IMPRESSION: 1. Bacteremia due to staph coagulase-negative and pleomorphic gram-positive bob. Probable left lower extremity chronic ulcerations / nonhealing wound potential source. 2. Leukocytosis. RECOMMENDATIONS: 1. Continue vancomycin 2. Monitor closely the identity of the pleomorphic gram-positive rods. 3. Add metronidazole. 4. Culture the wound on the right lower extremity at the tibia. 5. Monitor clinical status. 6. Repeat white blood cell count. Thank you for this consultation. Further recommendations will be given on followup. Francis Yoon MD FD/BRIAN /3:57 PM /6:00 PM
[2017-02-09] MEDS: LORazepam 1 MG TAB PO PRN (18:40)
[2017-02-09] MEDS: ATORVASTATIN 40 MG TAB PO SCH (21:48)
[2017-02-09] MEDS: predniSONE 10 MG TAB PO SCH (21:48)
[2017-02-10] VITALS (11 sets, daily range): BP systolic 114–132; BP diastolic 57–79; PULSE 70–89; RESP 18–20; TEMP 96.2–96.8; O2SAT 94–100
[2017-02-10] MEDS: metroNIDAZOLE 500 MG INJ 100 ML IV SCH ×3 (01:38→18:33)
[2017-02-10 06:50] LABS: MEAN CELL VOLUME 96.2 FL (80.0-100.0); MEAN CORPUSCULAR HGB CONC 32.2 % (32.0-36.0); PLATELET COUNT 147 TH/MM3 (150-450); RED BLOOD COUNT 3.22 MIL/MM3 (4.50-5.90); RED CELL DISTRIBUTION WIDTH 15.7 % (11.6-17.2); REVIEW FLAG FINAL; WHITE BLOOD COUNT 5.7 TH/MM3 (4.0-11.0)
[2017-02-10] MEDS: RESP: ALBUTEROL 2.5 MG/IPRATROPIUM 0.5 MG NEB (SCH) NEB ×4 (08:15→19:35)
[2017-02-10] MEDS: PANTOPRAZOLE SOD 40 MG DELAYED RELEASE TAB PO SCH (09:07)
[2017-02-10] MEDS: DOCUSATE SODIUM 100 MG CAP PO SCH ×2 (09:07→22:05)
[2017-02-10] MEDS: SPIRONOLACTONE 25 MG TAB PO SCH ×2 (09:07→18:31)
[2017-02-10] MEDS: FUROSEMIDE 40 MG/4 ML VIAL IV PUSH SCH (09:07)
[2017-02-10] MEDS: METOPROLOL TARTRATE 50 MG TAB PO SCH ×2 (09:07→22:06)
[2017-02-10] MEDS: predniSONE 10 MG TAB PO SCH ×2 (09:08→22:05)
[2017-02-10] MEDS: CEFUROXIME AXETIL 500 MG TAB PO SCH (09:08)
[2017-02-10] MEDS: THIAMINE HCL 100 MG TAB PO SCH (09:08)
[2017-02-10] MEDS: BUDESONIDE-FORMOTEROL 160/4.5 MCG INHALER INH SCH ×2 (09:09→22:06)
[2017-02-10] MEDS: VANCOMYCIN INJ 2,000 MG in SODIUM CHLORID 0.9% 500 ML INJ 500 ML IV SCH (10:30)
[2017-02-10] MEDS: SODIUM CHLOR 0.9% 1000 ML INJ 1,000 ML IV SCH ×2 (10:35→23:53)
--- NOTE | 2017-02-10 13:00 | HHI.PR ---
Subjective Remarks Alert and feeling better. wants to go home. On Vanco for Positive blood culture with Staph and Gram +ve rods . Needs a sleep study as OP. Objective Vital Signs Date Time Temp Pulse Resp B/P Pulse Ox O2 Delivery O2 Flow Rate FiO2 02/10/17 08:15 96 21 02/10/17 08:00 96.4 81 20 116/65 95 02/10/17 04:00 96.2 87 18 118/57 98 02/10/17 01:12 99 30 02/10/17 00:00 96.5 89 18 124/68 99 02/09/17 23:12 97 30 02/09/17 21:30 98 30 02/09/17 20:24 96 02/09/17 20:00 97.5 99 20 145/72 97 02/09/17 16:57 97.2 92 18 134/84 96 I/O 02/09/17 02/09/17 02/09/17 02/10/17 02/10/17 02/10/17 07:00 15:00 23:00 07:00 15:00 23:00 Intake Total 1445 ml 720 ml 1480 ml Output Total 600 ml 1600 ml 400 ml 700 ml Balance 845 ml -880 ml -400 ml 780 ml Intake Oral 480 ml 720 ml IV Total 965 ml 1480 ml Output Urine Total 600 ml 1600 ml 400 ml 700 ml Result Diagram: 02/10/17 0610 02/10/17 0610 Objective Remarks This middle-aged obese white male.in no distress HEENT: Head normocephalic. Pupils reactive. Throat is clear. Nasal mucosae clear Neck: Supple. No bruits or thyroid enlargement, no lymphadenopathy. Chest: Equal movements with distant breath sounds, with wheezes and Prolonged expirations. Heart: The heart sounds are irregular, S1-S2, no murmur. Abdomen: Soft, protuberant, no masses, no organomegaly. Extremities: Edema 1+ with diminished pulses. Ecchymotic areas of the skin.Ulcerations of legs . Neurologic: Reflexes 1+ with no gross motor deficits. Cranial nerves grossly intact. Rectal: Exam is deferred. Assessment and Plan Assessment and Plan IMPRESSION 1. COPD with chronic bronchitis and emphysema 2. Obstructive sleep apnea syndrome 3. Hyponatremia. 4. Chronic back pain 5. Bacteremia with Staph. Plan : 1. Continue nebs qid Duoneb. 2. ID consult. 3. Will get Sleep study as OP. 4. Continue diuretic daily 5. BMP ,CBC 6. Add Symbicort Inhaler , 2puffs bid 7. Cont Xarelto 15 mg 8. Continue antibiotics Long Reid MD February 10, 2017 13:00
--- NOTE | 2017-02-10 13:01 | HHI.PR ---
Subjective Remarks Follow-up hyponatremia/COPD exacerbation with bronchitis 02/05/17-patient seen and examined, denies any significant shortness of breath. Sodium up to 125. CIWA score of 0 02/06/17-patient seen and examined; CIWA of 2; had episode of emesis/diarrhea last night. would like to go home to be with his MOM who is coming from out of state. Na 129 02/07/17-patient seen and examined, sodium 130 and CIWA 0; no acute event overnight and afebrile. Blood culture on February 03 was positive 02/08/17-patient seen and examined, appears stable and denies any significant shortness of breath. Currently his IV fluid will discontinue accidentally after transfer to 7 . 02/09/17-patient seen and examined, repeat blood culture positive 1. Patient currently afebrile. States he would like to sign himself out 02/10/17-patient seen and examined by me currently being treated for bacteremia. Reports improvement of shortness of breath. Afebrile Objective Vitals Vital Signs Date Time Temp Pulse Resp B/P Pulse Ox O2 Delivery O2 Flow Rate FiO2 02/10/17 08:15 96 21 02/10/17 08:00 96.4 81 20 116/65 95 02/10/17 04:00 96.2 87 18 118/57 98 02/10/17 01:12 99 30 02/10/17 00:00 96.5 89 18 124/68 99 02/09/17 23:12 97 30 02/09/17 21:30 98 30 02/09/17 20:24 96 02/09/17 20:00 97.5 99 20 145/72 97 02/09/17 16:57 97.2 92 18 134/84 96 I/O 02/09/17 02/09/17 02/09/17 02/10/17 02/10/17 02/10/17 06:59 14:59 22:59 06:59 14:59 22:59 Intake Total 1445 ml 720 ml 1480 ml Output Total 600 ml 1600 ml 400 ml 700 ml Balance 845 ml -880 ml -400 ml 780 ml Intake Oral 480 ml 720 ml IV Total 965 ml 1480 ml Output Urine Total 600 ml 1600 ml 400 ml 700 ml Result Diagram: 02/10/17 0610 5/30/17 0610 Objective Remarks GENERAL: NAD SKIN: Warm and dry. HEAD: Normocephalic. EYES: No scleral icterus. No injection or drainage. NECK: Supple, trachea midline. No JVD or lymphadenopathy. CARDIOVASCULAR: Regular rate and rhythm without murmurs, gallops, or rubs. RESPIRATORY: Breath sounds decreased bilaterally. No accessory muscle use. GASTROINTESTINAL: Abdomen soft, non-tender, nondistended. MUSCULOSKELETAL: No cyanosis, or edema. BACK: Nontender without obvious deformity. No CVA tenderness. A/P Problem List: (1) COPD exacerbation ICD Code: J44.1 Status: Acute (2) Acute and chronic respiratory failure ICD Code: J96.20 Status: Acute (3) Chronic diastolic (congestive) heart failure ICD Code: I50.32 Status: Acute (4) Pulmonary hypertension ICD Code: I27.2 Status: Acute (5) Hyponatremia ICD Code: E87.1 Status: Acute (6) Bacteremia due to Gram-positive bacteria ICD Code: R78.81 Status: Acute Assessment and Plan 61-year-old man with 1. Qskaihryvw-wimb-docebdlu cocci Continue vancomycin IV daily and Flagyl and repeat blood culture pending Appreciate input from infectious disease specialist 2. Severe COPD exacerbation s/p Solu-Medrol 40 mg IV every 12 hours and now on by mouth prednisone 20 mg twice a day, continue bronchodilators,Symbicort, Ceftin Appreciate input from pulmonary medicine and continue with BiPAP at bedtime when necessary. Outpatient sleep study 3. Hyponatremia, severe- improving Improving with gentle IV fluid hydration with NS, monitor serial sodium. 4. Chronic diastolic heart failure. Currently on Lasix , Aldactone, 5. chronic renal insufficiency; seems to be at his baseline- will monitor 6. right leg wound Continue with treatment per wound care 7. atrial fibrillation: Rate controlled on Lopressor 50 mg by mouth twice a day, Xarelto 8. Hyperlipidemia Continue statin 9. Alcohol abuse/withdrawal CIWA score of 0 02/10/17, continue with TRAVIS ruelas protocol DVT prophylaxis: Hemal Knowles MD February 10, 2017 13:01
--- NOTE | 2017-02-10 14:55 | HHI.IDPN ---
Note Infectious Disease Note Patient feels okay but has labored breathing moving to bed from bedside chair. Afebrile. No chills. Blood culture has staph coag neg in multiple bottles on 02/02 and 02/07. Blood culture 02/09 pending. Wound culture has gram positive cocci. Presented to the emergency department on 02/02 with respiratory symptoms. PAST MEDICAL HISTORY: 1. COPD. The patient has home oxygen. 2. Atrial fibrillation. 3. Hypertension. 4. Hyperlipidemia. 5. Coronary artery disease. 6. History of CVA. 7. Chronic leg edema. 8. Sleep apnea. 9. History of cardiac ablation for atrial fibrillation. 10. Appendectomy. 11. Right ankle surgery. 12. History of myocardial infarction. 13. Polysubstance abuse. ALLERGIES: NO KNOWN DRUG ALLERGIES. MEDICATIONS: Vancomycin. OBJECTIVE: Vital Signs Date Time Temp Pulse Resp B/P Pulse Ox O2 Delivery O2 Flow Rate FiO2 02/10/17 08:15 96 21 02/10/17 08:00 96.4 81 20 116/65 95 02/10/17 04:00 96.2 87 18 118/57 98 02/10/17 01:12 99 30 02/10/17 00:00 96.5 89 18 124/68 99 02/09/17 23:12 97 30 02/09/17 21:30 98 30 02/09/17 20:24 96 02/09/17 20:00 97.5 99 20 145/72 97 02/09/17 16:57 97.2 92 18 134/84 96 02/09/17 02/09/17 02/10/17 15:00 23:00 07:00 Intake Total 720 ml 1480 ml Output Total 1600 ml 400 ml 700 ml Balance -880 ml -400 ml 780 ml Intake Oral 720 ml IV Total 1480 ml Output Urine Total 1600 ml 400 ml 700 ml Laboratory Tests Test 02/10/17 06:10 White Blood Count 5.7 TH/MM3 Red Blood Count 3.22 MIL/MM3 Hemoglobin 10.0 GM/DL Hematocrit 31.0 % Mean Corpuscular Volume 96.2 FL Mean Corpuscular Hemoglobin 31.0 PG Mean Corpuscular Hemoglobin 32.2 % Concent Red Cell Distribution Width 15.7 % Platelet Count 147 TH/MM3 Mean Platelet Volume 6.5 FL Laboratory Tests Test 02/08/17 02/09/1702/10/17 17:00 07:30 06:10 Sodium Level 133 MEQ/L 130 MEQ/L Potassium Level 5.1 MEQ/L Chloride Level 92 MEQ/L Carbon Dioxide Level 30.0 MEQ/L Anion Gap 8 MEQ/L Blood Urea Nitrogen 45 MG/DL Creatinine 1.28 MG/DL 1.25 MG/DL Estimat Glomerular Filtration 57 ML/MIN 58 ML/MIN Rate Random Glucose 115 MG/DL Calcium Level 9.0 MG/DL Microbiology Date/Time Procedure Status Source Growth 02/07/17 21:30 Aerobic Blood Culture - Preliminary Resulted Blood Peripheral Gram Positive Cocci 02/07/17 21:30 Anaerobic Blood Culture - Preliminary Resulted Gram Positive Cocci 02/07/17 21:35 Aerobic Blood Culture - Preliminary Resulted Blood Peripheral Gram Positive Cocci 02/07/17 21:35 Anaerobic Blood Culture - Final Resulted Staphylococcus Epidermidis Staph Sp Coagulase Negative 02/09/17 12:58 Aerobic Blood Culture - Preliminary Resulted Blood Peripheral NO GROWTH IN 1 DAY 02/09/17 12:58 Anaerobic Blood Culture - Preliminary Resulted Blood Peripheral NO GROWTH IN 1 DAY 02/09/17 13:08 Aerobic Blood Culture - Preliminary Resulted Blood Peripheral NO GROWTH IN 1 DAY 02/09/17 13:08 Anaerobic Blood Culture - Preliminary Resulted Blood Peripheral NO GROWTH IN 1 DAY 02/09/17 17:45 Gram Stain - Final Resulted Wound Leg 02/09/17 17:45 Wound Culture - Preliminary Resulted Wound Leg IMAGING: Chest CT 02/03/17 1253 Signed Impressions: Service Date/Time: Friday, February 03, 2017 13:42 - CONCLUSION: Subcentimeter pleural-based nodule left lower lobe. Minimal basilar atelectasis or scarring. Renny Hinojosa MD Chest X-Ray 02/03/17 0054 Signed Impressions: Service Date/Time: Friday, February 03, 2017 00:56 - CONCLUSION: Left lung base opacity possibly technical. Deanna Alvarez MD Lower Extremity Ultrasound 02/02/17 0000 Signed Impressions: Service Date/Time: Friday, February 03, 2017 01:40 - CONCLUSION: Normal examination. Deanna Alvarez MD PHYSICAL EXAMINATION: GENERAL: No acute distress. He is awake and alert and oriented. HEAD, EYES, EARS, NOSE, THROAT: No icterus. Oropharynx with moist mucosa. No visible lesions. NECK: No adenopathy or swelling. LUNGS: Clear breath sounds. HEART: Irregular rate and rhythm. No murmurs, rubs or gallops. ABDOMEN: Obese. Soft. Diminished bowel sounds. Nontender. EXTREMITIES: No clubbing, cyanosis or edema. The patient has increased size of the right lower extremity. Chronic dry skin. large superficial stage 2 ulceration is present at the lower aspect of the tibia anteriorly on the right leg with serous drainage and foul-smelling odor. The skin of the tibia is extremely dry and scaling and there are scratch quijano on the left tibia. SKIN: Diffuse erythematous hue throughout. No discrete rash. NEUROLOGIC: Nonfocal. PSYCHIATRIC: The patient is calm and cooperative. IMPRESSION: 1. Bacteremia due to staph coagulase-negative and pleomorphic gram-positive bob. 2. Left lower extremity chronic ulcerations / nonhealing wound potential source of bacteremia. 2. Leukocytosis. Improved. RECOMMENDATIONS: 1. Continue Vancomycin 2. Monitor the identity of the pleomorphic gram-positive rods. 3. Continue Metronidazole. 4. Monitor culture of wound. 5. Monitor the blood culture to completion. 6. Monitor clinical status. 7. Wound care consult. 8. Anticipate 2 weeks of IV antibiotics from last negative blood culture draw. PIC line if blood culture from 02/09 is negative. Francis Tidwell MD February 10, 2017 14:55
[2017-02-10] MEDS: RIVAROXABAN 20 MG TAB PO SCH (18:31)
[2017-02-10] MEDS: LORazepam 1 MG TAB PO PRN (18:36)
[2017-02-10] MEDS: ATORVASTATIN 40 MG TAB PO SCH (22:06)
[2017-02-11] VITALS (12 sets, daily range): BP systolic 110–140; BP diastolic 61–79; PULSE 65–86; RESP 16–20; TEMP 96–97.1; O2SAT 94–100
[2017-02-11] MEDS: metroNIDAZOLE 500 MG INJ 100 ML IV SCH ×2 (01:40→08:54)
[2017-02-11] MEDS ORDERED: PHARMACY ORDERED LAB ONE (02:45)
[2017-02-11] MEDS: VANCOMYCIN INJ 2,000 MG in SODIUM CHLORID 0.9% 500 ML INJ 500 ML IV SCH (03:32)
[2017-02-11] MEDS: BUDESONIDE-FORMOTEROL 160/4.5 MCG INHALER INH SCH ×2 (08:54→20:26)
[2017-02-11] MEDS: PANTOPRAZOLE SOD 40 MG DELAYED RELEASE TAB PO SCH (08:54)
[2017-02-11] MEDS: predniSONE 10 MG TAB PO SCH ×2 (08:55→20:25)
[2017-02-11] MEDS: DOCUSATE SODIUM 100 MG CAP PO SCH ×2 (08:55→20:25)
[2017-02-11] MEDS: METOPROLOL TARTRATE 50 MG TAB PO SCH ×2 (08:55→20:25)
[2017-02-11] MEDS: THIAMINE HCL 100 MG TAB PO SCH (08:55)
[2017-02-11] MEDS: FUROSEMIDE 40 MG TAB PO SCH (08:55)
[2017-02-11] MEDS: SPIRONOLACTONE 25 MG TAB PO SCH ×2 (08:55→17:02)
[2017-02-11] MEDS: RESP: ALBUTEROL 2.5 MG/IPRATROPIUM 0.5 MG NEB (SCH) NEB (09:23)
--- NOTE | 2017-02-11 11:32 | HHI.IDPN ---
Note Infectious Disease Note Patient feels okay. Breathing is better. Afebrile. No chills. Blood culture has staph coag neg in multiple bottles on 02/02 and 02/07. Blood culture 02/09 neg x 2 days. Wound culture of R. tibia has MRSA. Presented to the emergency department on 02/02 with respiratory symptoms. PAST MEDICAL HISTORY: 1. COPD. The patient has home oxygen. 2. Atrial fibrillation. 3. Hypertension. 4. Hyperlipidemia. 5. Coronary artery disease. 6. History of CVA. 7. Chronic leg edema. 8. Sleep apnea. 9. History of cardiac ablation for atrial fibrillation. 10. Appendectomy. 11. Right ankle surgery. 12. History of myocardial infarction. 13. Polysubstance abuse. ALLERGIES: NO KNOWN DRUG ALLERGIES. MEDICATIONS: Vancomycin. OBJECTIVE: Vital Signs Date Time Temp Pulse Resp B/P Pulse Ox O2 Delivery O2 Flow Rate FiO2 02/11/17 09:23 98 02/11/17 08:00 96.3 66 18 99 02/11/17 04:30 97.1 75 18 132/79 100 02/11/17 00:00 96.8 77 18 110/61 100 02/10/17 23:15 96 30 02/10/17 20:10 83 02/10/17 20:00 96.8 83 20 128/60 100 02/10/17 19:37 95 Nasal Cannula 2.00 02/10/17 16:00 96.6 80 18 132/79 94 02/10/17 12:00 96.7 70 18 114/60 95 02/10/17 02/10/17 02/11/17 15:00 23:00 07:00 Intake Total 2210 ml Output Total 2725 ml 1500 ml Balance -515 ml -1500 ml Intake Oral 1080 ml IV Total 1130 ml Output Urine Total 2725 ml 1500 ml Laboratory Tests Test 02/10/17 06:10 White Blood Count 5.7 TH/MM3 Red Blood Count 3.22 MIL/MM3 Hemoglobin 10.0 GM/DL Hematocrit 31.0 % Mean Corpuscular Volume 96.2 FL Mean Corpuscular Hemoglobin 31.0 PG Mean Corpuscular Hemoglobin 32.2 % Concent Red Cell Distribution Width 15.7 % Platelet Count 147 TH/MM3 Mean Platelet Volume 6.5 FL Laboratory Tests Test 02/10/17 02/11/17 06:10 07:55 Creatinine 1.25 MG/DL Estimat Glomerular Filtration 58 ML/MIN Rate Sodium Level 134 MEQ/L Microbiology Date/Time Procedure Status Source Growth 02/09/17 12:58 Aerobic Blood Culture - Preliminary Resulted Blood Peripheral NO GROWTH IN 2 DAYS 02/09/17 12:58 Anaerobic Blood Culture - Preliminary Resulted Blood Peripheral NO GROWTH IN 2 DAYS 02/09/17 13:08 Aerobic Blood Culture - Preliminary Resulted Blood Peripheral NO GROWTH IN 2 DAYS 02/09/17 13:08 Anaerobic Blood Culture - Preliminary Resulted Blood Peripheral NO GROWTH IN 2 DAYS 02/09/17 17:45 Gram Stain - Final Complete Wound Leg 02/09/17 17:45 Wound Culture - Final Complete S. Aureus Mrsa IMAGING: Chest CT 02/03/17 1253 Signed Impressions: Service Date/Time: Friday, February 03, 2017 13:42 - CONCLUSION: Subcentimeter pleural-based nodule left lower lobe. Minimal basilar atelectasis or scarring. Renny Hinojosa MD Chest X-Ray 02/03/17 0054 Signed Impressions: Service Date/Time: Friday, February 03, 2017 00:56 - CONCLUSION: Left lung base opacity possibly technical. Deanna Alvarez MD Lower Extremity Ultrasound 02/02/17 0000 Signed Impressions: Service Date/Time: Friday, February 03, 2017 01:40 - CONCLUSION: Normal examination. Deanna Alvarez MD PHYSICAL EXAMINATION: GENERAL: No acute distress. Awake and alert and oriented. HEAD, EYES, EARS, NOSE, THROAT: No icterus. Oropharynx with moist mucosa. No visible lesions. NECK: No adenopathy. Increased fatty tissue. LUNGS: Clear breath sounds. HEART: Irregular rate and rhythm. No murmurs, rubs or gallops. ABDOMEN: Obese. Soft. Diminished bowel sounds. Nontender. EXTREMITIES: No clubbing, cyanosis or edema. The patient has increased size of the right lower extremity. Chronic dry skin. large superficial stage 2 ulceration is present at the lower aspect of the tibia anteriorly on the right leg with dressing in place. The skin of the tibia is extremely dry and scaling and there are scratch quijano on the left tibia. SKIN: Diffuse erythematous hue throughout. No discrete rash. NEUROLOGIC: Nonfocal. PSYCHIATRIC: The patient is calm and cooperative. IMPRESSION: 1. Bacteremia due to staph coagulase-negative and pleomorphic gram-positive bob. 2. Left lower extremity chronic ulcerations / nonhealing wound MRSA. 2. Leukocytosis. Improved. RECOMMENDATIONS: 1. Continue Vancomycin IV until February 21, 2017 if the current blood culture is negative at 3 days. 2. Stop Metronidazole. 3. PIC line if blood culture from 02/09 is negative tomorrow. 4. IV antibiotic orders written on infusion form. 5. Case management to arrange IV antibiotic. Can be discharged if blood culture is negative and Antibiotics are arranged. Francis Tidwell MD February 11, 2017 11:31 Francis Tidwell MD February 11, 2017 11:31
--- NOTE | 2017-02-11 11:34 | HHI.FF ---
Infusion Therapy Location of Infusion Therapy: [facility] IV Infusion Order Patient Information Patient Weight 150.9 kg Diagnosis: Coded Allergies: *MDRO Multi-Drug Resistant Organism (Verified Adverse Reaction, Unknown, ) MRSA PCR (nares) positive - 01/11/16 & 02/03/17 Administer Medication Vancomycin q 24 hours 2500mg IV Stop Treatment: Feb 21, 2017 Additional Information Venous access: PICC Line Additional Instructions [x] Peripheral flush and dressing changes per protocol [x] Implanted port and central online project manager: * Implanted port: 10 ml Normal Saline followed by 5 ml Heparin 100 units/ml Heparin flush after each use and monthly to maintain. [] May leave port accessed during therapy. [] May leave peripheral site accessed for duration of therapy. [x] If patient has SOB or respiratory distress, check oxygen saturation. If less than 90% or clinical signs of respiratory distress, administer oxygen at 2 L/min. via nasal cannula and notify physician. [x] Anaphylaxis/Reaction orders: * Stop infusion. * Keep IV line open with saline flush. * Notify physician. * Monitor vital signs every 15 minutes until symptoms resolve. * Check Oxygen saturation; Oxygen at 2 L/min. via nasal cannula if less than 90% or clinical signs of respiratory distress. * Administer diphenhydramine (Benadryl) 25 mg IV STAT, (unless patient has received as pre-med). May repeat once, if necessary. * Solu-Cortef 250 mg IVP over 30-60 seconds, use 100 mg vials for each dissolution. * Epinephrine (1mg/1 ml) 0.3 mg subcutaneously or IVP now with any signs of respiratory distress. * Check with physician for new additional pre-med orders if patient is re- challenged or re-treated. [x] May remove PICC line when treatment complete, after confirming with Physician. [x] If the patient is admitted to the hospital, the ED, or transferred via [facility] , complete transfer form including medication reconciliation order sheet. Laboratory Tests Weekly Labs: BMP, Vancomycin Trough Francis Tidwell MD February 11, 2017 11:34
--- NOTE | 2017-02-11 13:01 | HHI.PR ---
Subjective Remarks Follow-up hyponatremia/COPD exacerbation with bronchitis 02/05/17-patient seen and examined, denies any significant shortness of breath. Sodium up to 125. CIWA score of 0 02/06/17-patient seen and examined; CIWA of 2; had episode of emesis/diarrhea last night. would like to go home to be with his MOM who is coming from out of state. Na 129 02/07/17-patient seen and examined, sodium 130 and CIWA 0; no acute event overnight and afebrile. Blood culture on February 03 was positive 02/08/17-patient seen and examined, appears stable and denies any significant shortness of breath. Currently his IV fluid will discontinue accidentally after transfer to 7 . 02/09/17-patient seen and examined, repeat blood culture positive 1. Patient currently afebrile. States he would like to sign himself out 02/10/17-patient seen and examined by me currently being treated for bacteremia. Reports improvement of shortness of breath. Afebrile 02/11/17-patient seen and examined, afebrile , denies any significant shortness of breath. Sodium up to 134 today Objective Vitals Vital Signs Date Time Temp Pulse Resp B/P Pulse Ox O2 Delivery O2 Flow Rate FiO2 02/11/17 09:23 98 02/11/17 08:00 96.3 66 18 99 02/11/17 04:30 97.1 75 18 132/79 100 02/11/17 00:00 96.8 77 18 110/61 100 02/10/17 23:15 96 30 02/10/17 20:10 83 02/10/17 20:00 96.8 83 20 128/60 100 02/10/17 19:37 95 Nasal Cannula 2.00 02/10/17 16:00 96.6 80 18 132/79 94 I/O 02/10/17 02/10/17 02/10/17 02/11/17 02/11/17 02/11/17 07:00 15:00 23:00 07:00 15:00 23:00 Intake Total 1480 ml 2210 ml 1000 ml Output Total 700 ml 2725 ml 1500 ml Balance 780 ml -515 ml -1500 ml 1000 ml Intake Oral 1080 ml IV Total 1480 ml 1130 ml 1000 ml Output Urine Total 700 ml 2725 ml 1500 ml Result Diagram: 02/10/17 0610 02/11/17 0755 Objective Remarks GENERAL: NAD SKIN: Warm and dry. HEAD: Normocephalic. EYES: No scleral icterus. No injection or drainage. NECK: Supple, trachea midline. No JVD or lymphadenopathy. CARDIOVASCULAR: Regular rate and rhythm without murmurs, gallops, or rubs. RESPIRATORY: Breath sounds decreased bilaterally. No accessory muscle use. GASTROINTESTINAL: Abdomen soft, non-tender, nondistended. MUSCULOSKELETAL: No cyanosis, or edema. BACK: Nontender without obvious deformity. No CVA tenderness. A/P Problem List: (1) COPD exacerbation ICD Code: J44.1 Status: Acute (2) Acute and chronic respiratory failure ICD Code: J96.20 Status: Acute (3) Chronic diastolic (congestive) heart failure ICD Code: I50.32 Status: Acute (4) Pulmonary hypertension ICD Code: I27.2 Status: Acute (5) Hyponatremia ICD Code: E87.1 Status: Resolved (6) Bacteremia due to Gram-positive bacteria ICD Code: R78.81 Status: Acute Assessment and Plan 61-year-old man with 1. Qnizberdji-uuwr-pfdpcors cocci Appreciate input from infectious disease specialist Continue Vancomycin IV until February 21, 2017 if the current blood culture is negative at [address] PICC line if blood culture from 02/09 is negative tomorrow (02/12/17) 2. Severe COPD exacerbation s/p Solu-Medrol 40 mg IV every 12 hours and now on by mouth prednisone 20 mg twice a day, continue bronchodilators,Symbicort, Appreciate input from pulmonary medicine and continue with BiPAP at bedtime when necessary. Outpatient sleep study 3. Hyponatremia, severe- improved Improving with gentle IV fluid hydration with NS, sodium 134 today 4. Chronic diastolic heart failure. Currently on Lasix , Aldactone, 5. chronic renal insufficiency; seems to be at his baseline- will monitor 6. right leg wound Continue with treatment per wound care 7. atrial fibrillation: Rate controlled on Lopressor 50 mg by mouth twice a day, Xarelto 8. Hyperlipidemia Continue statin 9. Alcohol abuse/withdrawal-resolved CIWA score of 0 02/11/17, continue with rally pack, CIWA protocol DVT prophylaxis: Hemal Knowles MD February 11, 2017 13:01
[2017-02-11] MEDS ORDERED: SYMB160A INH (13:07)
[2017-02-11] MEDS ORDERED: GNP100TA3 PO (13:07)
[2017-02-11] MEDS ORDERED: FURO40TA PO (13:07)
[2017-02-11] MEDS ORDERED: VENTAER INH (13:07)
[2017-02-11] MEDS ORDERED: IPRA17I INH (13:07)
[2017-02-11] MEDS ORDERED: PRED10 PO (13:07)
[2017-02-11] MEDS: RIVAROXABAN 20 MG TAB PO SCH (17:02)
--- NOTE | 2017-02-11 17:38 | HHI.PR ---
Subjective Remarks Alert and feeling better.On antibiotics IV . Leg ulcers noted. . Needs a sleep study as OP. Objective Vital Signs Date Time Temp Pulse Resp B/P Pulse Ox O2 Delivery O2 Flow Rate FiO2 02/11/17 16:00 97.0 69 20 118/61 94 02/11/17 13:22 96.0 71 16 120/63 98 02/11/17 09:23 98 02/11/17 08:01 65 02/11/17 08:00 96.3 66 18 99 02/11/17 04:30 97.1 75 18 132/79 100 02/11/17 00:00 96.8 77 18 110/61 100 02/10/17 23:15 96 30 02/10/17 20:10 83 02/10/17 20:00 96.8 83 20 128/60 100 02/10/17 19:37 95 Nasal Cannula 2.00 I/O 02/10/17 02/10/17 02/10/17 02/11/17 02/11/17 02/11/17 07:00 15:00 23:00 07:00 15:00 23:00 Intake Total 1480 ml 2210 ml 1000 ml 1140 ml Output Total 700 ml 2725 ml 1500 ml 700 ml Balance 780 ml -515 ml -1500 ml 1000 ml 440 ml Intake Oral 1080 ml 1140 ml IV Total 1480 ml 1130 ml 1000 ml Output Urine Total 700 ml 2725 ml 1500 ml 700 ml # Bowel Movements 0 Result Diagram: 02/10/17 0610 02/11/17 0755 Objective Remarks This middle-aged obese white male.in no distress HEENT: Head normocephalic. Pupils reactive. Throat is clear. Nasal mucosae clear Neck: Supple. No bruits or thyroid enlargement, no lymphadenopathy. Chest: Equal movements with distant breath sounds, with wheezes and Prolonged expirations. Heart: The heart sounds are irregular, S1-S2, no murmur. Abdomen: Soft, protuberant, no masses, no organomegaly. Extremities: Edema 1+ with diminished pulses. Ecchymotic areas of the skin.Ulcerations of legs . Neurologic: Reflexes 1+ with no gross motor deficits. Cranial nerves grossly intact. Rectal: Exam is deferred. Assessment and Plan Assessment and Plan IMPRESSION 1. COPD with chronic bronchitis and emphysema 2. Obstructive sleep apnea syndrome 3. Hyponatremia. 4. Chronic back pain 5. Bacteremia with Staph. Plan : 1. Continue nebs qid Duoneb. 2. ID consult. 3. Will get Sleep study as OP. 4. Continue diuretic daily 5. Prednisone 10 mg bid 6. Add Symbicort Inhaler , 2puffs bid 7. Cont Xarelto 15 mg 8. Continue antibiotics Long Reid MD February 11, 2017 17:38
[2017-02-11] MEDS: ATORVASTATIN 40 MG TAB PO SCH (20:25)
[2017-02-11] MEDS ORDERED: VANCOMYCIN INJ 2,500 MG in SODIUM CHLORID 0.9% 500 ML INJ 500 ML IV SCH (21:00)
[2017-02-12] VITALS (7 sets, daily range): BP systolic 117–154; BP diastolic 64–80; PULSE 68–76; RESP 18–20; TEMP 96.2–97.8; O2SAT 98–100
[2017-02-12] MEDS: FUROSEMIDE 40 MG TAB PO SCH (08:30)
[2017-02-12] MEDS: predniSONE 10 MG TAB PO SCH (08:30)
[2017-02-12] MEDS: PANTOPRAZOLE SOD 40 MG DELAYED RELEASE TAB PO SCH (08:30)
[2017-02-12] MEDS: DOCUSATE SODIUM 100 MG CAP PO SCH (08:30)
[2017-02-12] MEDS: THIAMINE HCL 100 MG TAB PO SCH (08:30)
[2017-02-12] MEDS: SPIRONOLACTONE 25 MG TAB PO SCH ×2 (08:30→18:50)
[2017-02-12] MEDS: METOPROLOL TARTRATE 50 MG TAB PO SCH (08:31)
[2017-02-12] MEDS: BUDESONIDE-FORMOTEROL 160/4.5 MCG INHALER INH SCH (08:31)
[2017-02-12] MEDS: SODIUM CHLORIDE 0.9% FLUSH 10 ML FLUSH IVF PRN (08:31)
--- NOTE | 2017-02-12 11:29 | HHI.FF ---
Face to Face Verification Diagnosis: (1) Chronic obstructive pulmonary disease (2) COPD exacerbation Physical Therapy Order: Evaluate and Treat I have seen patient Zeeshan Nix on 02/12/17. My clinical findings support the need for the requested home health care services because: Pt was evaluated by PT and he requires home PT Patient has SOB Deconditioned w/ increased weakness I certify that my clinical findings support that this patient is homebound because: Pt was evaluated by PT and he requires home PT Unsteady gait/balance Cristy Cuellar MD Feb 12, 2017 11:29
--- NOTE | 2017-02-12 12:41 | HHI.PR ---
Subjective Remarks Alert and feeling better.On antibiotics IV . Leg ulcers same.Will have a PICC Needs a sleep study as OP. Objective Vital Signs Date Time Temp Pulse Resp B/P Pulse Ox O2 Delivery O2 Flow Rate FiO2 02/12/17 10:20 99 Nasal Cannula 2.00 02/12/17 08:00 96.2 68 18 154/80 100 02/12/17 05:00 96.9 76 20 135/77 100 02/12/17 02:00 98 Nasal Cannula 2.00 02/12/17 00:00 97.3 76 18 119/64 100 02/11/17 22:10 97 30 02/11/17 20:15 96.9 86 20 140/73 99 02/11/17 20:00 80 02/11/17 19:40 96 21 02/11/17 18:26 81 96 02/11/17 16:00 97.0 69 20 118/61 94 02/11/17 13:22 96.0 71 16 120/63 98 I/O 02/11/17 02/11/17 02/11/17 02/12/17 02/12/17 02/12/17 07:00 15:00 23:00 07:00 15:00 23:00 Intake Total 1000 ml 1620 ml Output Total 1500 ml 1400 ml 600 ml Balance -1500 ml 1000 ml 220 ml -600 ml Intake Oral 1620 ml IV Total 1000 ml Output Urine Total 1500 ml 1400 ml 600 ml # Bowel Movements 0 Result Diagram: 02/10/17 0610 02/12/17 0640 Objective Remarks This middle-aged obese white male.in no distress HEENT: Head normocephalic. Pupils reactive. Throat is clear. Nasal mucosae clear Neck: Supple. No bruits or thyroid enlargement, no lymphadenopathy. Chest: Equal movements with distant breath sounds, and Prolonged expirations. Heart: The heart sounds are irregular, S1-S2, no murmur. Abdomen: Soft, protuberant, no masses, no organomegaly. Extremities: Edema 1+ with diminished pulses. Ecchymotic areas of the skin.Ulcerations of legs . Neurologic: Reflexes 1+ with no gross motor deficits. Rectal: Exam is deferred. Assessment and Plan Assessment and Plan IMPRESSION 1. COPD with chronic bronchitis and emphysema 2. Obstructive sleep apnea syndrome 3. Hyponatremia. 4. Chronic back pain 5. Bacteremia with Staph. Plan : 1. Continue nebs qid Duoneb. 2. Home with IV antibiotics 3. Will get Sleep study as OP. 4. Continue diuretic daily 5. Prednisone 10 mg daily X 7 6. Symbicort Inhaler , 160/4.5 mcg 2puffs bid 7. Cont Xarelto 15 mg 8. Will F/U in 2weeks Long Reid MD Feb 12, 2017 12:41
--- NOTE | 2017-02-12 12:59 | HHI.DS ---
Discharge Summary Admission Date February 03, 2017 at 02:05 Discharge Date: Feb 12, 2017 Admitting Diagnosis Hyponatremia, COPD exacerbation (1) COPD exacerbation ICD Code: J44.1 Diagnosis: Principal (2) Acute and chronic respiratory failure ICD Code: J96.20 Diagnosis: Principal (3) Chronic diastolic (congestive) heart failure ICD Code: I50.32 Diagnosis: Principal (4) Pulmonary hypertension ICD Code: I27.2 Diagnosis: Principal (5) Hyponatremia ICD Code: E87.1 Diagnosis: Principal (6) Bacteremia due to Gram-positive bacteria ICD Code: R78.81 Diagnosis: Principal Procedures none Brief History - From Admission 61 y/o man with morbid obesity, diastolic heart failure, chronic hypoxemic respiratory failure presents with increasing shortness of breath. Found to have hyponatremia 115. On chronic dual diuretic therapy. Glucose normal. BNP normal. Cardiac markers negative. History of several ablations for a-fib and chronic xarelto therapy for lower extremity edema. CXR clear, poor resolution. Afebrile , no leukocytosis. Chronic lower extremity edema. CBC/BMP: 02/10/17 0610 02/12/17 0640 Significant Findings Laboratory Tests Test 02/10/17 02/11/17 02/11/17 02/12/17 06:10 03:15 07:55 06:40 Red Blood Count 3.22 MIL/MM3 (4.50-5.90) Hemoglobin 10.0 GM/DL (13.0-17.0) Hematocrit 31.0 % (39.0-51.0) Platelet Count 147 TH/MM3 (150-450) Mean Platelet Volume 6.5 FL (7.0-11.0) Estimat Glomerular Filtration 58 ML/MIN (>89) 59 ML/MIN (>89) Rate Vancomycin Level Trough 17.3 MCG/ML (5.0-10.0) Sodium Level 134 MEQ/L (136-145) Imaging Last Impressions Chest CT 02/03/17 1253 Signed Impressions: Service Date/Time: Friday, February 03, 2017 13:42 - CONCLUSION: Subcentimeter pleural-based nodule left lower lobe. Minimal basilar atelectasis or scarring. Renny Hinojosa MD Chest X-Ray 02/03/17 0054 Signed Impressions: Service Date/Time: Friday, February 03, 2017 00:56 - CONCLUSION: Left lung base opacity possibly technical. Deanna Alvarez MD Lower Extremity Ultrasound 02/02/17 0000 Signed Impressions: Service Date/Time: Friday, February 03, 2017 01:40 - CONCLUSION: Normal examination. Deanna Alvarez MD PE at Discharge GENERAL: NAD SKIN: Warm and dry. HEAD: Normocephalic. EYES: No scleral icterus. No injection or drainage. NECK: Supple, trachea midline. No JVD or lymphadenopathy. CARDIOVASCULAR: Regular rate and rhythm without murmurs, gallops, or rubs. RESPIRATORY: Breath sounds decreased bilaterally. No accessory muscle use. GASTROINTESTINAL: Abdomen soft, non-tender, nondistended. MUSCULOSKELETAL: No cyanosis, or edema. BACK: Nontender without obvious deformity. No CVA tenderness. Pt update on day of discharge Pt feels well. Anxious to be discharged. Denies any CP/SOB/N/V. Denies any fevers or chills. states that he has oxygen already set up. Hospital Course 1. Skykgrkvob-ghki-zjcaqdgf cocci Appreciate input from infectious disease specialist Pt to continue Vancomycin IV until February 21, 2017 if the current blood culture is negative at 3 days which they are. PICC order has been place. Pt can be discharged once PICC inserted and IV abx arranged by CM. 2. Severe COPD exacerbation s/p Solu-Medrol 40 mg IV every 12 hours and down to po prednisone 10 mg twice a day, continue bronchodilators,Symbicort, Appreciate input from pulmonary medicine and continue with BiPAP at bedtime when necessary. Outpatient sleep study, pt aware 3. Hyponatremia, severe- much improved. Sodium 134, f/u as an outpatient. 4. Chronic diastolic heart failure. Currently on Lasix , Aldactone, 5. Chronic renal insufficiency; seems to be at his baseline- monitor as an outpatient. 6. Right leg wound Continue with treatment per wound care 7. atrial fibrillation: Rate controlled on Lopressor 50 mg by mouth twice a day , Xarelto Pt Condition on Discharge: Stable Discharge Disposition: Disch w/ Home Health Serv Discharge Time: > 30 minutes Discharge Instructions DIET: Follow Instructions for: Heart Healthy Diet Activities you can perform: Regular-No Restrictions Follow up Referrals: Physician - 1 Week Pulmonology - 2 Weeks with Dereck Clark MD New Orders: BASIC METABOLIC PROF - 2-3 Days New Medications: Albuterol 18 GM Inh (Ventolin Hfa 18 GM Inh) 90 Mcg/Act Aer 1 PUFF INH Q4H PRN SHORTNESS OF BREATH #1 Ref 3 INHALER Ipratropium HFA 12.9 GM Inh (Atrovent HFA 12.9 GM Inh) 17 Mcg/Act Aer 2 PUFF INH Q6HR PRN SHORTNESS OF BREATH #1 Ref 3 INHALER Budesonide-Formoterol Inh (Symbicort Inh) 160-4.5 Mcg/Act Aero 2 PUFF INH Q12HR Breathing Treatment #1 Ref 3 INHALER Furosemide (Furosemide) 40 Mg Tab 40 MG PO DAILY Prevent Heart Failure #30 Ref 3 TAB Prednisone (Prednisone) 10 Mg Tab 10 MG PO BID Breathing Treatment #14 TAB Thiamine HCl (Gnp Vitamin B-1) 100 Mg Tab 100 MG PO DAILY Alcohol Detox #30 TAB Continued Medications: Atorvastatin (Atorvastatin) 40 Mg Tab 40 MG PO HS Cholesterol Management #30 Ref 0 TAB Metoprolol Tartrate (Metoprolol Tartrate) 50 Mg Tab 50 MG PO BID #60 Ref 0 TAB Pantoprazole (Protonix) 40 Mg Tab 40 MG PO DAILY Reflux #30 Ref 0 TAB Rivaroxaban (Xarelto) 20 Mg Tab 20 MG PO DAILY WITH DINNER Blood Clot Prevention Ref 0 TAB Spironolactone (Spironolactone) 25 Mg Tab 25 MG PO BIDPC #60 Ref 0 TAB Discontinued Medications: Albuterol 18 GM Inh (Ventolin Hfa 18 GM Inh) 90 Mcg/Act Aer 2 PUFF INH Q4H PRN SHORTNESS OF BREATH #1 Ref 0 INHALER Bumetanide (Bumex) 0.5 Mg Tab 0.5 MG PO BID Ref 0 TAB Ipratropium-Albuterol Neb (Duoneb) 0.5-2.5 Mg/3 Ml Neb 1 NEBULE INH Q4HR NEB PRN SHORTNESS OF BREATH #180 Ref 0 Cristy Bundy MD Feb 12, 2017 12:59
[2017-02-12] MEDS ORDERED: SODIUM CHLORIDE 0.9% FLUSH 10 ML FLUSH IV FLUSH PRN (17:30)
--- NOTE | 2017-02-12 18:12 | RADRPT ---
EXAM DATE/TIME: 02/12/2017 17:12 [facility] COMPARISON: CHEST SINGLE AP, February 03, 2017, 0:56. INDICATIONS : Evaluate central line placement MEDICAL HISTORY : Hypertension. Chronic obstructive pulmonary disease. Myocardial infarction. Congestive heart fail ure. SURGICAL HISTORY : Cardiac ablation. Cardiac catheterization. ENCOUNTER: Subsequent ACUITY: 1 week PAIN SCORE: 0/10 LOCATION: Bilateral chest FINDINGS: Single AP view of the chest. Right-sided PICC line is in place with the tip in the region of the dist al SVC. Enlarged cardiac silhouette again seen. Prominence of the central pulmonary vasculature. Mild hazy opacity in the lungs. No evidence of pneumothorax. CONCLUSION: Right-sided PICC line in place. Mild pulmonary vascular congestion. Chronic cardiac silhouette enlarg ement. Andrew Wilks MD on February 12, 2017 at 18:10 Board Certified Radiologist. This report was verified electronically.
[2017-02-12] MEDS: RIVAROXABAN 20 MG TAB PO SCH (18:50)
[2017-02-13] MEDS ORDERED: predniSONE 10 MG TAB PO SCH (09:00)
[2017-02-13] MEDS ORDERED: SODIUM CHLORIDE 0.9% FLUSH 10 ML FLUSH IV FLUSH SCH (09:00)
[2017-02-14] MEDS ORDERED: PHARMACY ORDERED LAB ONE (20:45)
== END 2017-02-12 20:58 | disposition home health service (06) | DRG 189 ==
LOC: NEPE 23:43 → NEDA 02-03 02:05 → HIME 02-03 05:10 → HOCB 02-07 13:21
PROVIDERS: ADMIT Hospitalist; ATTEND Hospitalist
PROC: 3E0F7GC Introduction of Other Therapeutic Substance into Respiratory Tract, Via Natural or Artificial Opening (ICD-10-PCS; principal; 2017-02-03)
PROC: 5A09357 Assistance with Respiratory Ventilation, Less than 24 Consecutive Hours, Continuous Positive Airway Pressure (ICD-10-PCS; 2017-02-03)
DX: J96.21 Acute and chronic respiratory failure with hypoxia (principal); N17.9 Acute kidney failure, unspecified; R78.81 Bacteremia; I13.0 Hypertensive heart and chronic kidney disease with heart failure and stage 1 through stage 4 chronic kidney disease, or unspecified chronic kidney disease; I50.32 Chronic diastolic (congestive) heart failure; E87.1 Hypo-osmolality and hyponatremia; E66.2 Morbid (severe) obesity with alveolar hypoventilation; J44.1 Chronic obstructive pulmonary disease with (acute) exacerbation; I27.2 Other secondary pulmonary hypertension; I45.10 Unspecified right bundle-branch block; N18.9 Chronic kidney disease, unspecified; E78.00 Pure hypercholesterolemia, unspecified; Z79.02 Long term (current) use of antithrombotics/antiplatelets; I48.91 Unspecified atrial fibrillation; I25.10 Atherosclerotic heart disease of native coronary artery without angina pectoris; Z86.73 Personal history of transient ischemic attack (TIA), and cerebral infarction without residual deficits; Z86.14 Personal history of Methicillin resistant Staphylococcus aureus infection; I87.8 Other specified disorders of veins; E78.5 Hyperlipidemia, unspecified; J45.909 Unspecified asthma, uncomplicated; G89.29 Other chronic pain; M54.9 Dorsalgia, unspecified; L89.892 Pressure ulcer of other site, stage 2; Z99.81 Dependence on supplemental oxygen; I25.2 Old myocardial infarction; R11.0 Nausea; F10.10 Alcohol abuse, uncomplicated; R19.7 Diarrhea, unspecified; R11.10 Vomiting, unspecified; B95.8 Unspecified staphylococcus as the cause of diseases classified elsewhere; Z68.39 Body mass index [BMI] 39.0-39.9, adult
CPT/HCPCS: 36569; 36600; 71010; 71250; 76937; 80048; 80053; 80202; 82550; 82565; 82805; 83735; 83880; 83930; 84100; 84295; 84443; 84484; 85025; 85027; 85610; 85730; 86403; 87040; 87070; 87077; 87149; 87186; 87205; 87641; 93005; 93306; 93970; 94002; 94003; 94640; 94664; 96365; J0456; J0696; J1642; J1650; J1940; J2405; J2920; J3370; J3475; J7030; J7040; J7050; J7512

== ENCOUNTER 2017-04-10 17:35 | Inpatient (IN) | payer OTHER, MEDICARE ==
[~2017-04-10] VITALS: Ht 172.7 cm; Wt 153.1 kg
[~2017-04-10 17:35] MED LIST changes: +ATOR40TA16 PO; -BUME1TAB25 PO; +FURO40TA PO; +GNP100TA3 PO; +IPRA17I INH; -IPRASOL INH; -PRAV40TA2 PO; +PRED10 PO; +SPIR25TA PO; +SYMB160A INH
[2017-04-10 18:09] VITALS: BP 120/65; PULSE 88; RESP 20; TEMP 97.3; O2SAT 97
[2017-04-10 19:13] LABS: AUTOMATED NEUTROPHIL # 5.9 TH/MM3 (1.8-7.7); BASOPHIL # 0.4 TH/MM3 (0-0.2); BASOPHIL % 5.5 % (0.0-2.0); EOSINOPHIL # 0.1 TH/MM3 (0-0.4); EOSINOPHIL % 1.5 % (0.0-4.0); HEMATOCRIT 30.1 % (39.0-51.0); LYMPHOCYTE # 0.6 TH/MM3 (1.0-4.8); MEAN CORPUSCULAR HEMOGLOBIN 33.3 PG (27.0-34.0); MEAN CORPUSCULAR HGB CONC 34.3 % (32.0-36.0); MONO % 7.8 % (0.0-8.0); NEUT % 77.2 % (16.0-70.0); PLATELET COUNT 176 TH/MM3 (150-450); RED CELL DISTRIBUTION WIDTH 17.9 % (11.6-17.2); WHITE BLOOD COUNT 7.6 TH/MM3 (4.0-11.0)
[2017-04-10 19:18] LABS: HEMO FLAGS DIFF FINAL
[2017-04-10 19:25] VITALS: BP 120/58; PULSE 85; RESP 20; O2SAT 98
--- NOTE | 2017-04-10 19:25 | RADRPT ---
EXAM DATE/TIME: 04/10/2017 19:06 [facility] COMPARISON: CHEST SINGLE AP, February 12, 2017, 17:12. INDICATIONS : Shortness of breath, chest pain MEDICAL HISTORY : Hypertension. Chronic obstructive pulmonary disease. Myocardial infarction. Congestive heart failure SURGICAL HISTORY : Cardiac ablation. Cardiac catheterization ENCOUNTER: Initial ACUITY: 1 day PAIN SCORE: 8/10 LOCATION: Bilateral chest FINDINGS: A single view of the chest demonstrates the lungs to be symmetrically aerated without evidence of mas s, infiltrate or effusion. Minimal basal atelectasis. The cardiomediastinal contours are unremarkable . Osseous structures are intact. CONCLUSION: 1. Minimal basal atelectasis. No acute findings. Mannie Croft MD on April 10, 2017 at 19:21 Board Certified Radiologist. This report was verified electronically.
[2017-04-10 19:31] LABS: APTT (PATIENT) 33.5 SEC (24.3-30.1)
[2017-04-10] MEDS ORDERED: VANCOMYCIN INJ 1,000 MG in SODIUM CHLOR 0.9% 250 ML INJ 250 ML IV STA (19:42)
[2017-04-10] MEDS ORDERED: PIPERACIL-TAZO 4.5 GM PREMIX 100 ML IV STA (19:42)
[2017-04-10 19:46] LABS: ANION GAP 18 MEQ/L (5-15); BICARBONATE 13.4 MEQ/L (21.0-32.0); BLOOD UREA NITROGEN 44 MG/DL (7-18); CHLORIDE 90 MEQ/L (98-107); GLOMERULAR FILTRATION RATE 34 ML/MIN (>89); POTASSIUM 4.1 MEQ/L (3.5-5.1)
[2017-04-10 19:49] LABS: SODIUM (NA) 121 MEQ/L (136-145)
--- NOTE | 2017-04-10 19:55 | PD ---
HPI Chief Complaint: Cardiac Complaint Time Seen by Provider: 19:38 Travel History International Travel<30 days: No Contact w/Intl Traveler<30days: No Traveled to known affect area: No History of Present Illness HPI 61-year-old male with history of COPD, hypertension, multiple medical issues, presents to the ER today because he states he has not been feeling well for several days, nauseous, vomiting, having diarrhea, fell and hit his head last week although he did not have a loss of consciousness. Patient states he is on Eliquis. He also states he has noticed some blood in his stools intermittently although denies any blood in the stool yesterday. He also states that he has been having shortness of breath and dyspnea on exertion, his legs up and swollen especially the right leg which has been more painful to him. He denies any fevers, chest pains, abdominal pains, or other issues. Modifying Factors: None Associated Signs & Symptoms: Multiple complaints, falls, nausea, vomiting, diarrhea, blood in the stools, dyspnea on exertion, leg swelling Risk Factors: Elderly, COPD, multiple medical issues PFSH Past Medical History Hx Anticoagulant Therapy: Yes Asthma: No Atrial Fibrillation: Yes Heart Rhythm Problems: Yes (ablation) Cancer: No Cardiac Catheterization: Yes Cardiovascular Problems: Yes High Cholesterol: Yes Chest Pain: Yes Congestive Heart Failure: Yes COPD: Yes (HOME O2 2 L NC) Cerebrovascular Accident: Yes Coronary Artery Disease: Yes Diabetes: No Diminished Hearing: No Endocrine: No Gastrointestinal Disorders: No Genitourinary: Yes (INTERMITTENT INCONTINENCE OF BOWEL AND BLADDER) Hypertension: Yes Immune Disorder: No Implanted Vascular Access Dvce: No Musculoskeletal: Yes Neurologic: Yes Psychiatric: No Reproductive: No Respiratory: Yes Integumentary: Yes (BILATERAL LOWER LEG SWELLING/SKIN ITEGRATY ISSUES cellulitis) Immunizations Current: Yes Migraines: No Seizures: Yes Sleep Apnea: Yes (DOES NOT HAVE CPAP) Thyroid Disease: No Past Surgical History Abdominal Surgery: Yes (apendix) Appendectomy: Yes Cardiac Surgery: Yes (ABLATIONS X 3) Genitourinary Surgery: No Neurologic Surgery: No Tonsillectomy: Yes Other Surgery: Yes (ABLATION X 3) Social History Alcohol Use: Yes (RARE) Tobacco Use: No Substance Use: No Allergies-Medications (Allergen,Severity, Reaction): Coded Allergies: *MDRO Multi-Drug Resistant Organism (Verified Adverse Reaction, Unknown, ) MRSA PCR (nares) positive - 01/11/16 & 02/03/17 MRSA (leg)-02/09/17 Reported Meds & Prescriptions Reported Meds & Active Scripts Active Ventolin Hfa 18 GM Inh (Albuterol Sulfate) 90 Mcg/Act Aer 1 Puff INH Q4H PRN Atrovent HFA 12.9 GM Inh (Ipratropium Darby) 17 Mcg/Act Aer 2 Puff INH Q6HR PRN Gnp Vitamin B-1 (Thiamine HCl) 100 Mg Tab 100 Mg PO DAILY Furosemide 40 Mg Tab 40 Mg PO DAILY Symbicort Inh (Budesonide/Formoterol Fumarate) 160-4.5 Mcg/Act Aero 2 Puff INH Q12HR Protonix (Pantoprazole Sodium) 40 Mg Tab 40 Mg PO DAILY Reported Atrovent HFA 12.9 GM Inh (Ipratropium Darby) 17 Mcg/Act Aer 2 Puff INH Q6HR PRN Bumetanide 0.5 Mg Tab 0.5 Mg PO BID Breo Ellipta Inh (Fluticasone/Vilanterol) 100-25 Mcg/Act Inh 1 Puff INH DAILY Use daily at the same time. Atorvastatin (Atorvastatin Calcium) 40 Mg Tab 40 Mg PO HS Spironolactone 25 Mg Tab 25 Mg PO BIDPC Metoprolol Tartrate 50 Mg Tab 50 Mg PO BID Xarelto (Rivaroxaban) 20 Mg Tab 20 Mg PO DAILY WITH DINNER Review of Systems ROS Limitations: Poor Historian Except as stated in HPI: all other systems reviewed are Neg Physical Exam Narrative GENERAL: Well-developed elderly obese white male patient currently in mild respiratory distress. Awake and oriented 3. SKIN: Focused skin assessment warm/dry. HEAD: Atraumatic. Normocephalic. EYES: Pupils equal and round. No scleral icterus. No injection or drainage. ENT: No nasal bleeding or discharge. Mucous membranes pink and moist. NECK: Trachea midline. Supple. CARDIOVASCULAR: Regular rate and rhythm. No murmur appreciated. RESPIRATORY: No accessory muscle use. Decreased throughout bilaterally without crackles or wheezes. Breath sounds equal bilaterally. GASTROINTESTINAL: Abdomen soft, non-tender, nondistended. Hepatic and splenic margins not palpable. RECTAL EXAM: No masses or tenderness, stool is light brown. Hemoccult negative. MUSCULOSKELETAL: No obvious deformities. No clubbing. No cyanosis. Bilateral tense pitting edema of both legs with notable lower leg erythema and stasis discoloration. NEUROLOGICAL: Awake and alert. No obvious cranial nerve deficits. Motor grossly within normal limits. Normal speech. PSYCHIATRIC: Appropriate mood and affect; insight and judgment normal. Data Data Last Documented VS Vital Signs Date Time Temp Pulse Resp B/P Pulse Ox O2 Delivery O2 Flow Rate FiO2 04/10/17 21:43 88 24 119/53 99 Nasal Cannula 2 04/10/17 18:09 97.3 Orders Electrocardiogram (04/10/17 18:31) Complete Blood Count With Diff (04/10/17 18:31) Basic Metabolic Panel (Bmp) (04/10/17 18:31) Ckmb (Isoenzyme) Profile (04/10/17 18:31) Troponin I (04/10/17 18:31) Chest, Single Ap (04/10/17 18:31) Iv Access Insert/Monitor (04/10/17 18:31) Ecg Monitoring (04/10/17 18:31) Oxygen Administration (04/10/17 18:31) Oximetry (04/10/17 18:31) Act Partial Throm Time (Ptt) (04/10/17 18:31) Lactic Acid Sepsis Protocol (04/10/17 18:31) Blood Culture (04/10/17 18:31) B-Type Natriuretic Peptide (04/10/17 19:42) Prothrombin Time / Inr (Pt) (04/10/17 19:42) Piperacil-Tazo 4.5 Gm Premix (Zosyn 4.5 (04/10/17 19:42) Vancomycin Inj (Vancomycin Inj) (04/10/17 19:42) Us Leg Venous Doppler Bilat (04/10/17 19:45) Ct Brain W/O Iv Contrast(Rout) (04/10/17 19:50) Alcohol (Ethanol) (04/10/17 18:30) Sodium Chlorid 0.9% 500 Ml Inj (Ns 500 M (04/10/17 21:00) Tramadol-Acetamin 37.5-325 Mg (Ultracet (04/10/17 22:00) Labs Laboratory Tests Test 04/10/17 18:30 White Blood Count 7.6 TH/MM3 Red Blood Count 3.10 MIL/MM3 Hemoglobin 10.3 GM/DL Hematocrit 30.1 % Mean Corpuscular Volume 97.0 FL Mean Corpuscular Hemoglobin 33.3 PG Mean Corpuscular Hemoglobin 34.3 % Concent Red Cell Distribution Width 17.9 % Platelet Count 176 TH/MM3 Mean Platelet Volume 7.2 FL Neutrophils (%) (Auto) 77.2 % Lymphocytes (%) (Auto) 8.0 % Monocytes (%) (Auto) 7.8 % Eosinophils (%) (Auto) 1.5 % Basophils (%) (Auto) 5.5 % Neutrophils # (Auto) 5.9 TH/MM3 Lymphocytes # (Auto) 0.6 TH/MM3 Monocytes # (Auto) 0.6 TH/MM3 Eosinophils # (Auto) 0.1 TH/MM3 Basophils # (Auto) 0.4 TH/MM3 CBC Comment DIFF FINAL Differential Comment Prothrombin Time 17.6 SEC Prothromb Time International 1.6 RATIO Ratio Activated Partial 33.5 SEC Thromboplast Time Sodium Level 121 MEQ/L Potassium Level 4.1 MEQ/L Chloride Level 90 MEQ/L Carbon Dioxide Level 13.4 MEQ/L Anion Gap 18 MEQ/L Blood Urea Nitrogen 44 MG/DL Creatinine 1.98 MG/DL Estimat Glomerular Filtration 34 ML/MIN Rate Random Glucose 84 MG/DL Lactic Acid Level 2.0 mmol/L Calcium Level 8.2 MG/DL Total Creatine Kinase 66 U/L Troponin I LESS THAN 0.02 NG/ML B-Type Natriuretic Peptide 93 PG/ML Ethyl Alcohol Level 109 MG/DL MDM Medical Decision Making Medical Screen Exam Complete: Yes Emergency Medical Condition: Yes Medical Record Reviewed: Yes Interpretation(s) Laboratory Tests Test 04/10/17 18:30 Red Blood Count 3.10 MIL/MM3 (4.50-5.90) Hemoglobin 10.3 GM/DL (13.0-17.0) Hematocrit 30.1 % (39.0-51.0) Red Cell Distribution Width 17.9 % (11.6-17.2) Neutrophils (%) (Auto) 77.2 % (16.0-70.0) Lymphocytes (%) (Auto) 8.0 % (9.0-44.0) Basophils (%) (Auto) 5.5 % (0.0-2.0) Lymphocytes # (Auto) 0.6 TH/MM3 (1.0-4.8) Basophils # (Auto) 0.4 TH/MM3 (0-0.2) Prothrombin Time 17.6 SEC (9.8-11.6) Activated Partial 33.5 SEC Thromboplast Time (24.3-30.1) Sodium Level 121 MEQ/L (136-145) Chloride Level 90 MEQ/L (98-107) Carbon Dioxide Level 13.4 MEQ/L (21.0-32.0) Anion Gap 18 MEQ/L (5-15) Blood Urea Nitrogen 44 MG/DL (7-18) Creatinine 1.98 MG/DL (0.60-1.30) Estimat Glomerular Filtration 34 ML/MIN (>89) Rate Calcium Level 8.2 MG/DL (8.5-10.1) Troponin I LESS THAN 0.02 NG/ML (0.02-0.05) Ethyl Alcohol Level 109 MG/DL (0-5) Last [address] 04/10/17 1950 Signed Impressions: Service Date/Time: Monday, April 10, 2017 20:40 - CONCLUSION: 1. No acute findings. No significant change from March 2016. Mannie Croft MD Lower Extremity Ultrasound 04/10/17 194 Signed Impressions: Service Date/Time: Monday, April 10, 2017 21:45 - CONCLUSION: Normal examination. Mannie Croft MD Chest X-Ray 04/10/17 183 Signed Impressions: Service Date/Time: Monday, April 10, 2017 19:06 - CONCLUSION: 1. Minimal basal atelectasis. No acute findings. Mannie Croft MD Differential Diagnosis CHF versus chronic venous stasis versus leg cellulitis versus sepsis versus metabolic issues versus pneumonia versus DVT/PE Narrative Course Hemoccult of the stool is negative. He looks like he has some mild cellulitis right leg. His lactate is elevated and he has some neutrophilia and IV antibiotics were initiated after cultures were done. Lab work shows significant hyponatremia and elevated BUN and creatinine as well. Is suspect underlying dehydration as well. Normal saline bolus was given. At this point, my plan would be to admit the patient for further treatment. Case was discussed with Dr. Cash for admission. HemaPrompt Point of Care Internal Pos. & Neg. Controls: Passed Fecal Specimen Occult Blood: Negative Diagnosis Primary Impression: Cellulitis, leg Additional Impression: Hyponatremia Admitting Information Admitting Physician Requests: Admit Soontharothai,Rewadee MD Apr 10, 2017 19:55
[2017-04-10 20:01] LABS: CREATINE KINASE 66 U/L (39-308)
[2017-04-10 20:06] LABS: INTERNATIONAL NORMALIZED RATIO 1.6 RATIO; PROTHROMBIN TIME - PATIENT 17.6 SEC (9.8-11.6)
--- NOTE | 2017-04-10 20:57 | RADRPT ---
EXAM DATE/TIME: 04/10/2017 20:40 [facility] COMPARISON: CT BRAIN W/O CONTRAST, March 28, 2016, 1:39. INDICATIONS : Frequent falls; weakness and swelling in legs - worse today. RADIATION DOSE: 64.11 CTDIvol (mGy) ; Tabletop CT Head MEDICAL HISTORY : Seizures. Congestive heart failure. Hypertension. SURGICAL HISTORY : Appendectomy. ENCOUNTER: Initial ACUITY: 1 month PAIN SCALE: 0/10 LOCATION: cranial TECHNIQUE: Multiple contiguous axial images were obtained of the head. Using automated exposure control and adj ustment of the mA and/or kV according to patient size, radiation dose was kept as low as reasonably a chievable to obtain optimal diagnostic quality images. DICOM format image data is available electro nically for review and comparison. FINDINGS: CEREBRUM: The ventricles are normal for age. No evidence of midline shift, mass lesion, hemorrhage or acute in farction. No extra-axial fluid collections are seen. POSTERIOR FOSSA: The cerebellum and brainstem are intact. The 4th ventricle is midline. The cerebellopontine angle i s unremarkable. EXTRACRANIAL: The visualized portion of the orbits is intact. SKULL: The calvaria is intact. No evidence of skull fracture. CONCLUSION: 1. No acute findings. No significant change from March 2016. Mannie Croft MD on April 10, 2017 at 20:54 Board Certified Radiologist. This report was verified electronically.
[2017-04-10] MEDS ORDERED: SODIUM CHLORID 0.9% 500 ML INJ 500 ML IV ONE (21:00)
[2017-04-10] MEDS ORDERED: FLUT1INH INH (21:40)
[2017-04-10] MEDS ORDERED: BUME0.5T PO (21:40)
[2017-04-10 21:43] VITALS: BP 119/53; PULSE 88; RESP 24; O2SAT 99
[2017-04-10] MEDS ORDERED: IPRA17I INH (21:43)
[2017-04-10] MEDS ORDERED: traMADol/ACETAMINOPHEN 37.5/325 1 TAB PO ONE (22:00)
--- NOTE | 2017-04-10 22:42 | RADRPT ---
EXAM DATE/TIME: 04/10/2017 21:45 [facility] COMPARISON: No previous studies available for comparison. INDICATIONS : MEDICAL HISTORY : Hypercholesterolemia. Hypertension. Chronic obstructive pulmonary disease. Cerebrovascular accident. Seizures. Myocardial infarction. Congestive heart failure. Coronary artery disease. Atrial fibri llation. SURGICAL HISTORY : Tonsillectomy.Appendectomy. Cardiac catheterization. Circumcision. Right ankle surgery. Ablation. ENCOUNTER: Initial ACUITY: 1 month PAIN SCORE: 7/10 LOCATION: Bilateral legs. TECHNIQUE: Venous ultrasound of the left and right leg was performed from the inguinal ligament to the proximal calf. Real-time, color Doppler and spectral tracing, compression and augmentation techniques were us ed. FINDINGS: RIGHT LEG: There is normal compressibility of the deep venous system from the inguinal region to the proximal ca lf. No echogenic clot is seen in the lumen of the common femoral, femoral, popliteal, and posterior tibial veins. There is a normal response of the venous system to proximal and distal augmentation an d respiration. LEFT LEG: There is normal compressibility of the deep venous system from the inguinal region to the proximal ca lf. No echogenic clot is seen in the lumen of the common femoral, femoral, popliteal, and posterior tibial veins. There is a normal response of the venous system to proximal and distal augmentation an d respiration. CONCLUSION: Normal examination. Mannie Croft MD on April 10, 2017 at 22:40 Board Certified Radiologist. This report was verified electronically.
[2017-04-10] MEDS ORDERED: BISACODYL 10 MG SUPP RECTAL PRN (23:15)
[2017-04-10] MEDS ORDERED: HALOPERIDOL LACTATE 5 MG/ML AMP IM PRN (23:15)
[2017-04-10] MEDS ORDERED: SODIUM CHLORIDE 0.9% FLUSH 10 ML FLUSH IV FLUSH PRN (23:15)
[2017-04-10] MEDS ORDERED: SENNOSIDES 8.6 MG TAB PO PRN (23:15)
[2017-04-10] MEDS ORDERED: FLUMAZENIL 0.5 MG/5 ML VIAL IV PUSH PRN (23:15)
[2017-04-10] MEDS ORDERED: ACETAMINOPHEN 325 MG TAB PO PRN (23:15)
[2017-04-10] MEDS ORDERED: LORazepam 2 MG TAB PO PRN (23:15)
[2017-04-10] MEDS ORDERED: LACTULOSE SYRUP 20 GM/30 ML CUP PO PRN (23:15)
[2017-04-10] MEDS ORDERED: LORazepam 1 MG TAB PO PRN (23:15)
[2017-04-10] MEDS ORDERED: LORazepam 2 MG/ML VIAL IV PUSH PRN ×4 (23:15)
--- NOTE | 2017-04-10 23:18 | HHI.HP ---
HPI Service [facility] Primary Care Physician Unknown Admission Diagnosis severe hyponatremia/leg cellulitis Diagnoses: (1) Hyponatremia Diagnosis: Principal (2) Cellulitis, leg Diagnosis: Principal (3) COPD (chronic obstructive pulmonary disease) Diagnosis: Principal (4) CHF (congestive heart failure) Diagnosis: Principal (5) Renal insufficiency Diagnosis: Principal (6) A-fib Diagnosis: Principal Travel History International Travel<30 Days: No Contact w/Intl Traveler <30 Da: No Traveled to Known Affected Are: No History of Present Illness This is a 61-year-old male with PMH of A. fib on Eliquis, HTN, CAD, COPD, O2 Dependent, h/o CVA and CHF (Echo 02/03/17 w/ EF 65%) who presented to the ER w/ complaints of generalized weakness, nausea/vomiting x2 days. Reports fall approx 1wk ago due to similar symptoms, however did not seek medical attention at that time. Denies LOC. No fever, chills, cough, chest pain or sick contacts reported. Does mention progressive lower extremity edema x2 days. On arrival, BP 120/65, HR 88, O2 sat 97% on 2L NC, Afebrile. CBC at baseline. Na 121. Creatinine 1.98, previously 1.24 on 02/12/17. Troponin negative. INR 1.6. Alcohol 109. Hemoccult Negative. CT Abdomen no acute findings. Lower Extremity US negative for DVT. CXR with minimal basilar atelectasis no acute findings. S/p Vanc/Zosyn in ER and IVF. Review of Systems Except as stated in HPI: all other systems reviewed are Neg ROS: 14 point review of systems otherwise negative. Past Family Social History Past Medical History PMH: A. fib on Eliquis, HTN, CAD, COPD, O2 Dependent, h/o CVA and CHF (Echo w/ EF 65%) Past Surgical History PAST SURGICAL HISTORY: Appendectomy, Cardiac Ablation, Tonsillectomy Allergies: Coded Allergies: *MDRO Multi-Drug Resistant Organism (Verified Adverse Reaction, Unknown, ) MRSA PCR (nares) positive - 4/29/16 & 02/03/17 MRSA (leg)-02/09/17 Family History PAST FAMILY HISTORY: Reviewed. No h/o DM or CAD Social History PAST SOCIAL HISTORY: Positive for alcohol. Negative for tobacco or drugs. Physical Exam Vital Signs Vital Signs Date Time Temp Pulse Resp B/P Pulse Ox O2 Delivery O2 Flow Rate FiO2 04/10/17 21:43 88 24 119/53 99 Nasal Cannula 2 04/10/17 19:25 85 20 120/58 98 Nasal Cannula 2 04/10/17 18:09 97.3 88 20 120/65 97 Nasal Cannula 2 Physical Exam PE: GENERAL: Middle-aged male in no acute distress. HEENT: PERRLA, EOMI. No scleral icterus or conjunctival pallor. No lid lag or facial droop. CARDIOVASCULAR: Regular rate and rhythm. No obvious murmurs to auscultation. No chest tenderness to palpation. RESPIRATORY: No obvious rhonchi or wheezing. Clear to auscultation. Breath sounds equal bilaterally. GASTROINTESTINAL: Abdomen soft, non-tender, nondistended. BS normal. MUSCULOSKELETAL: Extremities without clubbing, cyanosis. No obvious deformities. +2 pitting edema bilaterally, +erythema RLE NEUROLOGICAL: Awake, alert and oriented x4. No focal neurologic deficits. Moving both upper and lower extremities spontaneously. Laboratory Laboratory Tests Test 04/10/17 18:30 White Blood Count 7.6 Red Blood Count 3.10 Hemoglobin 10.3 Hematocrit 30.1 Mean Corpuscular Volume 97.0 Mean Corpuscular Hemoglobin 33.3 Mean Corpuscular Hemoglobin 34.3 Concent Red Cell Distribution Width 17.9 Platelet Count 176 Mean Platelet Volume 7.2 Neutrophils (%) (Auto) 77.2 Lymphocytes (%) (Auto) 8.0 Monocytes (%) (Auto) 7.8 Eosinophils (%) (Auto) 1.5 Basophils (%) (Auto) 5.5 Neutrophils # (Auto) 5.9 Lymphocytes # (Auto) 0.6 Monocytes # (Auto) 0.6 Eosinophils # (Auto) 0.1 Basophils # (Auto) 0.4 CBC Comment DIFF FINAL Differential Comment Prothrombin Time 17.6 Prothromb Time International 1.6 Ratio Activated Partial 33.5 Thromboplast Time Sodium Level 121 Potassium Level 4.1 Chloride Level 90 Carbon Dioxide Level 13.4 Anion Gap 18 Blood Urea Nitrogen 44 Creatinine 1.98 Estimat Glomerular Filtration 34 Rate Random Glucose 84 Lactic Acid Level 2.0 Calcium Level 8.2 Total Creatine Kinase 66 Troponin I LESS THAN 0.02 B-Type Natriuretic Peptide 93 Ethyl Alcohol Level 109 Date/Time Procedure Status Source Growth 04/10/17 18:40 Aerobic Blood Culture Received Blood Peripheral Pending 04/10/17 18:40 Anaerobic Blood Culture Received Blood Peripheral Pending Result Diagram: 04/10/17 1830 04/10/17 1830 Assessment and Plan Problem List: (1) Hyponatremia ICD Code: E87.1 Status: Resolved (2) COPD (chronic obstructive pulmonary disease) ICD Code: J44.9 Status: Acute (3) CHF (congestive heart failure) ICD Code: I50.9 Status: Acute (4) Cellulitis, leg ICD Code: L03.119 Status: Acute (5) Renal insufficiency ICD Code: N28.9 Status: Acute (6) A-fib ICD Code: I48.91 Status: Acute Assessment and Plan A/P: 1. Hyponatremia: Na 121, likely secondary to dehydration, previous admit for same, Na 115 at that time. IVF for hydration, check serial Na, no mental status changes. 2. COPD: Chronic Respiratory Failure. Stable. CXR w/ no acute findings, images reviewed by me, no wheezing on exam. Continue w/ home MDI/Neb treatments. Continue O2 3. CHF: Echo 02/03/17 w/ EF 65%, normal systolic function, BNP normal, CXR w/ no effusions. IVF for hydration as no acute fluid overload, however caution w/ CHF. 4. Cellulitis: LE Cellulitis. Afebrile. WBC normal. S/p Vanc/Zosyn in ER. Continue w/ IV Abx, will monitor. 5. Renal Insufficiency: CORIN. Creatinine 1.98, previously 1.24 on 02/12/17. IVF for hydration, repeat labs in a.m. 6. A. fib: Chronic. Resume home medications. 7. DVT Prophylaxis: On Xarelto. 8. Social work for d/c planning as needed. 9. Case discussed w/ ER physician at length. Physician Certification 2 Midnight Certification Type: Admission for Inpatient Services Order for Inpatient Services The services are ordered in accordance with Medicare regulations or non- Medicare payer requirements, as applicable. In the case of services not specified as inpatient-only, they are appropriately provided as inpatient services in accordance with the 2-midnight benchmark. Estimated LOS (days): 2 days is the estimated time the patient will need to remain in the hospital, assuming treatment plan goals are met and no additional complications. Post-Hospital Plan: Not yet determined Cassia Cash MD Apr 10, 2017 23:18
[2017-04-10] MEDS ORDERED: RESP: ALBUTEROL 2.5 MG/IPRATROPIUM 0.5 MG NEB (PRN) NEB (23:30)
[2017-04-10] MEDS ORDERED: DEXT 5%-NACL 0.45% 500 ML INJ 500 ML IV ONE (23:30)
[2017-04-10 23:42] VITALS: O2SAT 99
[2017-04-11] VITALS (7 sets, daily range): BP systolic 122–146; BP diastolic 60–81; PULSE 88–96; RESP 16–20; TEMP 97.2–98.6; O2SAT 97–100
[2017-04-11] MEDS: PANTOPRAZOLE SODIUM 40 MG VIAL IV PUSH SCH ×3 (00:39→21:43)
[2017-04-11] MEDS ORDERED: Vancomycin Consult Pharmacy 1 EA OTHER SCH (01:00)
[2017-04-11] MEDS ORDERED: VANCOMYCIN 1,500 MG/NS 500 ML IV ONE ×2 (01:30)
[2017-04-11] MEDS: BUDESONIDE-FORMOTEROL 160/4.5 MCG INHALER INH SCH ×2 (09:13→21:44)
[2017-04-11] MEDS: FUROSEMIDE 40 MG/4 ML VIAL IV PUSH SCH ×2 (09:14→17:40)
[2017-04-11] MEDS: CEFEPIME INJ 1,000 MG in SODIUM CHLORIDE 0.9% INJ 100 ML IV SCH (09:14)
[2017-04-11] MEDS: DOCUSATE SODIUM 50 MG/SENNA 8.6 MG TAB PO SCH ×2 (09:15→21:42)
[2017-04-11] MEDS: MULTIVITAMINS/MINERALS THERAPEUTIC TAB PO SCH (09:15)
[2017-04-11] MEDS: FOLIC ACID 1 MG TAB PO SCH (09:15)
[2017-04-11] MEDS: SODIUM CHLORIDE 0.9% FLUSH 10 ML FLUSH IV FLUSH SCH ×2 (09:15→21:41)
[2017-04-11] MEDS: SPIRONOLACTONE 25 MG TAB PO SCH ×2 (09:15→17:40)
[2017-04-11] MEDS: PANTOPRAZOLE SOD 40 MG DELAYED RELEASE TAB PO SCH ×2 (09:15→09:20)
[2017-04-11] MEDS: ONDANSETRON HCL 4 MG/2 ML VIAL IVP PRN ×2 (09:31→17:39)
[2017-04-11 10:07] LABS: AUTOMATED NEUTROPHIL # 4.8 TH/MM3 (1.8-7.7); BASOPHIL # 0.1 TH/MM3 (0-0.2); BASOPHIL % 1.1 % (0.0-2.0); EOSINOPHIL # 0.1 TH/MM3 (0-0.4); EOSINOPHIL % 1.9 % (0.0-4.0); HEMATOCRIT 29.8 % (39.0-51.0); HEMO FLAGS DIFF FINAL; LYMPH % 6.4 % (9.0-44.0); LYMPHOCYTE # 0.4 TH/MM3 (1.0-4.8); MEAN CELL VOLUME 97.2 FL (80.0-100.0); MEAN CORPUSCULAR HEMOGLOBIN 33.6 PG (27.0-34.0); MEAN CORPUSCULAR HGB CONC 34.6 % (32.0-36.0); MONO % 8.1 % (0.0-8.0); NEUT % 82.5 % (16.0-70.0); PLATELET COUNT 145 TH/MM3 (150-450); RED BLOOD COUNT 3.07 MIL/MM3 (4.50-5.90); RED CELL DISTRIBUTION WIDTH 17.2 % (11.6-17.2); WHITE BLOOD COUNT 5.8 TH/MM3 (4.0-11.0)
[2017-04-11 10:22] LABS: ANION GAP 14 MEQ/L (5-15); AST (GOT) 91 U/L (15-37); BICARBONATE 20.2 MEQ/L (21.0-32.0); BLOOD UREA NITROGEN 46 MG/DL (7-18); CHLORIDE 91 MEQ/L (98-107); GLOMERULAR FILTRATION RATE 37 ML/MIN (>89); SODIUM (NA) 125 MEQ/L (136-145)
[2017-04-11 10:28] LABS: ALKALINE PHOSPHATASE 134 U/L (45-117); ALT (GPT) 99 U/L (12-78); TOTAL BILIRUBIN ADULT 1.2 MG/DL (0.2-1.0)
--- NOTE | 2017-04-11 16:06 | EKG ---
Date Performed: 04/10/2017 Time Performed: 18:50:56 PTAGE: 61 years EKG: Incomplete right bundle branch block Since PREVIOUS TRACING , the ST-T changes interiorly have improved. PREVIOUS TRACIN 7 23.55 DOCTOR: Joe Walker Interpretating Date/Time 04/11/2017 16:05:45
--- NOTE | 2017-04-11 16:24 | HHI.PR ---
Subjective Remarks Pt tells me that he is feeling a bit nauseous but no vomiting. poor appetite right now. SOB is about the same, no CP Objective Vitals Vital Signs Date Time Temp Pulse Resp B/P Pulse Ox O2 Delivery O2 Flow Rate FiO2 04/11/17 12:00 97.3 96 20 146/81 100 04/11/17 08:00 92 04/11/17 08:00 97.4 96 20 141/63 97 04/11/17 04:02 97.2 94 16 123/70 99 04/11/17 00:20 98.6 88 16 133/64 98 04/10/17 23:42 99 Nasal Cannula 2.00 04/10/17 21:43 88 24 119/53 99 Nasal Cannula 2 04/10/17 19:25 85 20 120/58 98 Nasal Cannula 2 04/10/17 18:09 97.3 88 20 120/65 97 Nasal Cannula 2 I/O 04/10/17 04/10/17 04/10/17 04/11/17 04/11/17 04/11/17 07:00 15:00 23:00 07:00 15:00 23:00 Intake Total 480 ml Output Total 500 ml Balance -20 ml Intake Oral 480 ml Output Urine Total 500 ml Result Diagram: 04/11/17 0835 04/11/17 1505 Imaging Last Impressions Head CT 04/10/17 1950 Signed Impressions: Service Date/Time: Monday, April 10, 2017 20:40 - CONCLUSION: 1. No acute findings. No significant change from March 2016. Mannie Croft MD Lower Extremity Ultrasound 04/10/17 194 Signed Impressions: Service Date/Time: Monday, April 10, 2017 21:45 - CONCLUSION: Normal examination. Mannie Croft MD Chest X-Ray 04/10/17 1831 Signed Impressions: Service Date/Time: Monday, April 10, 2017 19:06 - CONCLUSION: 1. Minimal basal atelectasis. No acute findings. Mannie Croft MD Objective Remarks GENERAL: Middle-aged male in no acute distress. obese HEENT: EOMI. CARDIOVASCULAR: Regular rate and rhythm. No obvious murmurs to auscultation. RESPIRATORY: No wheezing. Clear to auscultation. Breath sounds equal bilaterally. GASTROINTESTINAL: Abdomen soft, non-tender, obese, nondistended. BS normal. MUSCULOSKELETAL: Extremities without +2 pitting edema bilaterally, +erythema RLE NEUROLOGICAL: Awake, alert and oriented x4. No focal neurologic deficits. Moving both upper and lower extremities spontaneously. A/P Problem List: (1) Hyponatremia ICD Code: E87.1 Status: Resolved (2) COPD (chronic obstructive pulmonary disease) ICD Code: J44.9 Status: Acute (3) CHF (congestive heart failure) ICD Code: I50.9 Status: Acute (4) Cellulitis, leg ICD Code: L03.119 Status: Acute (5) Renal insufficiency ICD Code: N28.9 Status: Acute (6) A-fib ICD Code: I48.91 Status: Acute Assessment and Plan 1. Hyponatremia: Na 121, likely secondary to dehydration, EtOH abuse, previous admit 02/03/17 for same, Na 115 at that time. currently not on IVFs. continue to monitor Na, no mental status changes. Na today was 128. urine and serum osm ordered. urine Na and Cr ordered. 2. COPD: Chronic Respiratory Failure. Stable. CXR w/ no acute findings, images reviewed by me, no wheezing on exam. Continue w/ home MDI/Neb treatments. Continue O2 3. CHF: Echo 02/03/17 w/ EF 65%, normal systolic function, BNP normal, CXR w/ no effusions. IVF for hydration as no acute fluid overload, however caution w/ CHF. 4. Cellulitis: LE Cellulitis. Afebrile. WBC normal. S/p Vanc/Zosyn in ER. Continue w/ IV Abx, will monitor for now. 5. Renal Insufficiency: CORIN. Creatinine 1.98, now 1.87 (previously 1.24 on 02/12/17). caution w IVFs at this time as pt's sodium is correcting quickly up to 128 now without any IVFs. for now will hold off on fluid restriction and let pt drink water and monitor Na and Cr closely. 6. A. fib: Chronic. on home medications. 7. DVT Prophylaxis: On Xarelto. Discharge Planning f/u on LE cellulitis f/u on Na and Cr levels. dc once Na and Cr back to baseline, may need to switch to po abx prior to d/c Cristy Cuellar MD Apr 11, 2017 16:24
[2017-04-11] MEDS: RIVAROXABAN 15 MG TAB PO SCH (17:40)
[2017-04-11] MEDS: ATORVASTATIN 40 MG TAB PO SCH (21:42)
[2017-04-12] VITALS (8 sets, daily range): BP systolic 130–148; BP diastolic 59–83; PULSE 88–104; RESP 18–20; TEMP 97.1–97.9; O2SAT 94–99
[2017-04-12] MEDS: VANCOMYCIN INJ 1,750 MG in SODIUM CHLORID 0.9% 500 ML INJ 500 ML IV SCH (00:41)
[2017-04-12 08:03] LABS: AUTOMATED NEUTROPHIL # 3.7 TH/MM3 (1.8-7.7); BASOPHIL # 0.1 TH/MM3 (0-0.2); BASOPHIL % 1.3 % (0.0-2.0); EOSINOPHIL # 0.1 TH/MM3 (0-0.4); EOSINOPHIL % 2.7 % (0.0-4.0); HEMO FLAGS DIFF FINAL; LYMPH % 8.5 % (9.0-44.0); LYMPHOCYTE # 0.4 TH/MM3 (1.0-4.8); MEAN CELL VOLUME 98.1 FL (80.0-100.0); MEAN CORPUSCULAR HEMOGLOBIN 33.3 PG (27.0-34.0); MONO % 12.6 % (0.0-8.0); NEUT % 74.9 % (16.0-70.0); PLATELET COUNT 152 TH/MM3 (150-450); RED BLOOD COUNT 3.16 MIL/MM3 (4.50-5.90); RED CELL DISTRIBUTION WIDTH 17.3 % (11.6-17.2); WHITE BLOOD COUNT 4.9 TH/MM3 (4.0-11.0)
[2017-04-12 08:12] LABS: BICARBONATE 21.2 MEQ/L (21.0-32.0); POTASSIUM 4.1 MEQ/L (3.5-5.1)
[2017-04-12] MEDS: PANTOPRAZOLE SODIUM 40 MG VIAL IV PUSH SCH ×2 (09:14→21:36)
[2017-04-12] MEDS: MULTIVITAMINS/MINERALS THERAPEUTIC TAB PO SCH (09:14)
[2017-04-12] MEDS: SPIRONOLACTONE 25 MG TAB PO SCH ×2 (09:14→17:38)
[2017-04-12] MEDS: DOCUSATE SODIUM 50 MG/SENNA 8.6 MG TAB PO SCH ×2 (09:14→21:35)
[2017-04-12] MEDS: FOLIC ACID 1 MG TAB PO SCH (09:14)
[2017-04-12] MEDS: CEFEPIME INJ 1,000 MG in SODIUM CHLORIDE 0.9% INJ 100 ML IV SCH (09:15)
[2017-04-12] MEDS: SODIUM CHLORIDE 0.9% FLUSH 10 ML FLUSH IV FLUSH SCH ×2 (09:16→21:37)
[2017-04-12] MEDS: FUROSEMIDE 40 MG/4 ML VIAL IV PUSH SCH ×2 (09:16→17:39)
[2017-04-12] MEDS: BUDESONIDE-FORMOTEROL 160/4.5 MCG INHALER INH SCH ×2 (09:24→21:38)
[2017-04-12] MEDS ORDERED: SODIUM CHLORID 0.9% 500 ML INJ 500 ML IV SCH (12:15)
--- NOTE | 2017-04-12 14:17 | HHI.PR ---
Subjective Remarks Pt feeling much better. States he thinks the narcotics had made him feel bad yesterday. Denies any CP/SOB/N/V appetite is still somewhat decreased but much improved. Objective Vitals Vital Signs Date Time Temp Pulse Resp B/P Pulse Ox O2 Delivery O2 Flow Rate FiO2 04/12/17 10:18 88 04/12/17 04:00 97.2 92 18 134/68 97 04/12/17 00:52 97.9 98 18 130/59 98 04/11/17 20:07 92 04/11/17 20:00 97.9 96 20 122/60 97 04/11/17 16:00 97.7 95 20 137/62 99 I/O 04/11/17 04/11/17 04/11/17 04/12/17 04/12/17 04/12/17 07:00 15:00 23:00 07:00 15:00 23:00 Intake Total 480 ml 240 ml 550 ml Output Total 500 ml 200 ml 100 ml Balance -20 ml 240 ml -200 ml 450 ml Intake Oral 480 ml 240 ml IV Total 550 ml Output Urine Total 500 ml 200 ml 100 ml # Voids 4 # Bowel Movements 0 0 0 Result Diagram: 04/12/17 0710 04/12/17 0710 Imaging Last Impressions Head CT 04/10/17 1950 Signed Impressions: Service Date/Time: Monday, April 10, 2017 20:40 - CONCLUSION: 1. No acute findings. No significant change from March 2016. Mannie Croft MD Lower Extremity Ultrasound 04/10/17 194 Signed Impressions: Service Date/Time: Monday, April 10, 2017 21:45 - CONCLUSION: Normal examination. Mannie Croft MD Chest X-Ray 04/10/17 1831 Signed Impressions: Service Date/Time: Monday, April 10, 2017 19:06 - CONCLUSION: 1. Minimal basal atelectasis. No acute findings. Mannie Croft MD Objective Remarks GENERAL: Middle-aged male , obese, sitting up in chair HEENT: EOMI. CARDIOVASCULAR: Regular rate and rhythm. No obvious murmurs to auscultation. RESPIRATORY: No wheezing. Clear to auscultation. Breath sounds equal bilaterally. GASTROINTESTINAL: Abdomen soft, non-tender, obese, nondistended. BS normal. MUSCULOSKELETAL: Extremities without +2 pitting edema bilaterally, +erythema RLE but much improved. open superficial wound on the right lower extremity NEUROLOGICAL: Awake, alert and oriented x4. No focal neurologic deficits. Moving both upper and lower extremities spontaneously. A/P Problem List: (1) Hyponatremia ICD Code: E87.1 Status: Resolved (2) COPD (chronic obstructive pulmonary disease) ICD Code: J44.9 Status: Acute (3) CHF (congestive heart failure) ICD Code: I50.9 Status: Acute (4) Cellulitis, leg ICD Code: L03.119 Status: Acute (5) Renal insufficiency ICD Code: N28.9 Status: Acute (6) A-fib ICD Code: I48.91 Status: Acute Assessment and Plan 1. Hyponatremia: Na 121 on admission, likely secondary to dehydration, EtOH abuse, previous admit 02/03/17 for same, Na 115 at that time. currently not on IVFs. continue to monitor Na, no mental status changes. Na stable at 126. urine osm low but serum osm normal. urine Na and Cr wnl. Will give gently hydration NS @50ml/hr up to 500ml today. 2. COPD: Chronic Respiratory Failure. Stable. CXR w/ no acute findings, no wheezing on exam. Continue w/ home MDI/Neb treatments. Continue O2 3. CHF: Echo 02/03/17 w/ EF 65%, normal systolic function, BNP normal, CXR w/ no effusions. 4. Cellulitis: LE Cellulitis. much improved. Afebrile. WBC normal. S/p Vanc/ Zosyn in ER. Continue w/ IV Abx, transition to PO in 1-2 days. qual research manager consult for further eval and recs 5. Renal Insufficiency: CORIN. Creatinine 1.98, now 1.66 (previously 1.24 on 02/12/17). hold off on fluid restriction and let pt drink water and monitor Na and Cr closely. Also give gentle hydration as above 6. A. fib: Chronic. on home medications. 7. DVT Prophylaxis: On Xarelto. Discharge Planning f/u on LE cellulitis f/u on Na and Cr levels. dc once Na and Cr back to baseline, will switch to po abx prior to d/c Cristy Cuellar MD Apr 12, 2017 14:17
[2017-04-12] MEDS: RIVAROXABAN 15 MG TAB PO SCH (17:39)
[2017-04-12] MEDS: ATORVASTATIN 40 MG TAB PO SCH (21:36)
[2017-04-13] VITALS (8 sets, daily range): BP systolic 110–140; BP diastolic 62–82; PULSE 88–106; RESP 19–22; TEMP 97.2–98.1; O2SAT 94–100
[2017-04-13] MEDS: VANCOMYCIN INJ 1,750 MG in SODIUM CHLORID 0.9% 500 ML INJ 500 ML IV SCH (00:49)
[2017-04-13] MEDS: PANTOPRAZOLE SODIUM 40 MG VIAL IV PUSH SCH ×2 (09:00→20:35)
[2017-04-13 09:12] LABS: BICARBONATE 25.4 MEQ/L (21.0-32.0); POTASSIUM 3.8 MEQ/L (3.5-5.1)
[2017-04-13] MEDS: BUDESONIDE-FORMOTEROL 160/4.5 MCG INHALER INH SCH ×2 (10:22→20:37)
[2017-04-13] MEDS: CEFEPIME INJ 1,000 MG in SODIUM CHLORIDE 0.9% INJ 100 ML IV SCH (10:23)
[2017-04-13] MEDS: SODIUM CHLORIDE 0.9% FLUSH 10 ML FLUSH IV FLUSH SCH ×2 (10:23→20:36)
[2017-04-13] MEDS: FUROSEMIDE 40 MG/4 ML VIAL IV PUSH SCH ×2 (10:24→17:32)
[2017-04-13] MEDS: PANTOPRAZOLE SOD 40 MG DELAYED RELEASE TAB PO SCH (10:28)
[2017-04-13] MEDS: MULTIVITAMINS/MINERALS THERAPEUTIC TAB PO SCH (10:28)
[2017-04-13] MEDS: DOCUSATE SODIUM 50 MG/SENNA 8.6 MG TAB PO SCH ×2 (10:28→20:35)
[2017-04-13] MEDS: SPIRONOLACTONE 25 MG TAB PO SCH ×2 (10:28→17:32)
[2017-04-13] MEDS: FOLIC ACID 1 MG TAB PO SCH (10:28)
--- NOTE | 2017-04-13 15:17 | HHI.PR ---
Subjective Remarks Patient says he feels well. Denies any chest pain, shortness of breath, nausea or vomiting. He does have a primary care that He follows. He feels that his lower extremities are improving. Objective Vitals Vital Signs Date Time Temp Pulse Resp B/P Pulse Ox O2 Delivery O2 Flow Rate FiO2 04/13/17 12:00 97.2 93 20 134/71 100 04/13/17 11:40 18 04/13/17 10:10 91 04/13/17 08:00 97.7 90 20 110/62 98 04/13/17 04:00 97.8 96 19 121/62 98 04/13/17 00:00 97.4 106 22 140/82 97 04/12/17 20:15 96 04/12/17 20:00 97.1 97 19 132/76 98 04/12/17 16:00 97.3 96 20 137/60 94 I/O 04/12/17 04/12/17 04/12/17 04/13/17 04/13/17 04/13/17 07:00 15:00 23:00 07:00 15:00 23:00 Intake Total 550 ml 480 ml 445 ml 1030 ml Output Total 100 ml 300 ml 225 ml Balance 450 ml 480 ml 145 ml 805 ml Intake Oral 480 ml 480 ml IV Total 550 ml 445 ml 550 ml Output Urine Total 100 ml 300 ml 225 ml # Voids 4 # Bowel Movements 0 0 0 Result Diagram: 04/12/17 0710 04/13/17 0740 Imaging Last Impressions Head CT 04/10/17 1950 Signed Impressions: Service Date/Time: Monday, April 10, 2017 20:40 - CONCLUSION: 1. No acute findings. No significant change from March 2016. Mannie Croft MD Lower Extremity Ultrasound 04/10/171944 Signed Impressions: Service Date/Time: Monday, April 10, 2017 21:45 - CONCLUSION: Normal examination. Mannie Croft MD Chest X-Ray 04/10/17 1831 Signed Impressions: Service Date/Time: Monday, April 10, 2017 19:06 - CONCLUSION: 1. Minimal basal atelectasis. No acute findings. Mannie Croft MD Objective Remarks GENERAL: Middle-aged male , obese, sitting up in chair HEENT: EOMI. CARDIOVASCULAR: Regular rate and rhythm. No obvious murmurs to auscultation. RESPIRATORY: No wheezing. Clear to auscultation. Breath sounds equal bilaterally. GASTROINTESTINAL: Abdomen soft, non-tender, obese, nondistended. BS normal. MUSCULOSKELETAL: Extremities without +2 pitting edema bilaterally, +erythema RLE but much improved. open superficial wound on the right lower extremity NEUROLOGICAL: Awake, alert and oriented x4. No focal neurologic deficits. Moving both upper and lower extremities spontaneously. A/P Problem List: (1) Hyponatremia ICD Code: E87.1 Status: Resolved (2) COPD (chronic obstructive pulmonary disease) ICD Code: J44.9 Status: Acute (3) CHF (congestive heart failure) ICD Code: I50.9 Status: Acute (4) Cellulitis, leg ICD Code: L03.119 Status: Acute (5) Renal insufficiency ICD Code: N28.9 Status: Acute (6) A-fib ICD Code: I48.91 Status: Acute Assessment and Plan 1. Hyponatremia: Na 121 on admission, now much improved up to 132, likely secondary to dehydration, EtOH abuse, previous admit 02/03/17 for same, Na 115 at that time. continue to monitor Na, no mental status changes. urine osm low but serum osm normal. urine Na and Cr wnl. 2. COPD: Chronic Respiratory Failure. Stable. CXR w/ no acute findings, no wheezing on exam. Continue w/ home MDI/Neb treatments. Continue O2 3. CHF: Echo 02/03/17 w/ EF 65%, normal systolic function, BNP normal, CXR w/ no effusions. 4. Cellulitis: LE Cellulitis. much improved. Afebrile. WBC normal. S/p Vanc/ Zosyn in ER. Continue w/ IV Abx, transition to PO in 1-2 days. senior water/wastewater engineer consult for further eval and recs 5. Renal Insufficiency: CORIN. Creatinine 1.98, now 1.79 (previously 1.24 on 02/12/17). hold off on fluid restriction and let pt drink water and monitor Na and Cr closely. Resume IV fluids normal saline at 100 mL's per hour. 6. A. fib: Chronic. on home medications. 7. DVT Prophylaxis: On Xarelto. Discharge Planning f/u on LE cellulitis f/u on Na and Cr levels. Creatinine level is worsening. Patient started on IV fluids again. Encourage by mouth hydration. dc once Na and Cr back to baseline, will switch to po abx prior to d/c Cristy Cuellar MD Apr 13, 2017 15:17
[2017-04-13] MEDS: SODIUM CHLOR 0.9% 1000 ML INJ 1,000 ML IV SCH (16:03)
[2017-04-13] MEDS: RIVAROXABAN 15 MG TAB PO SCH (17:31)
--- NOTE | 2017-04-13 18:59 | PD.WCN.NOT ---
Wound Consult Description: Consult placed per protocol for WOUND MANAGEMENT of RIGHT FOOT per Dr Cash/ CALLIE Communicated with: ALEJANDRA Ghosh Dr Recommendation: [place] right great toe and right 4th digit with Betadine BID and leave open to air Cleanse right lower anterior extremity with wound cleanser and pat dry before applying Maxorb II over open wound and cover with foam dressing secured with rolled gauze EVERY 3-5 DAYS and PRN when soiled Additional Information: Patient seen on 4 for wound evaluation of right foot. Entire right lower extremity was cleansed with wound cleanser and gauze. Dried blood, not friable, noted to right great toe and right 4th digit that was painted with betadine and left ELIUD. Right anterior lower leg wound measures 2cm x 1.4cm x <0.1cm of partial thickness skin loss noted with a moist red non granulating wound bed with periwound weeping noted circumferentially to entire lower extremity indicating a venous insufficiency etiology. Posterior lower right leg is weeping with no visualized open wounds noted. Maxorb was applied to all moist areas and covered with an optifoam and secured with rolled gauze and tape that may remain in place for 3-5 days unless soiled or dislodged. Left lower extremity (gaiter area of leg) was noted hemosideran staining consistent with venous insuffiency, other patterson unremarkable. Evelyn Lopez [facility] Apr 13, 2017 18:59
[2017-04-13] MEDS: ATORVASTATIN 40 MG TAB PO SCH (20:35)
[2017-04-14] VITALS: BP 115/58; PULSE 99; RESP 19; TEMP 97.5; O2SAT 98
[2017-04-14] MEDS ORDERED: PHARMACY ORDERED LAB ONE (01:45)
[2017-04-14] MEDS: SODIUM CHLOR 0.9% 1000 ML INJ 1,000 ML IV SCH ×3 (02:04→20:50)
[2017-04-14] MEDS: VANCOMYCIN INJ 1,750 MG in SODIUM CHLORID 0.9% 500 ML INJ 500 ML IV SCH (02:57)
[2017-04-14 03:43] LABS: BICARBONATE 29.6 MEQ/L (21.0-32.0); POTASSIUM 4.1 MEQ/L (3.5-5.1)
[2017-04-14 03:44] LABS: VANCOMYCIN TROUGH 22.1 MCG/ML (5.0-10.0)
[2017-04-14 04:00] VITALS: BP 115/66; PULSE 90; RESP 16; TEMP 97.5; O2SAT 96
[2017-04-14 08:00] VITALS: BP 133/80; PULSE 90; RESP 20; TEMP 98; O2SAT 99
[2017-04-14] MEDS: BUDESONIDE-FORMOTEROL 160/4.5 MCG INHALER INH SCH ×2 (08:43→20:48)
[2017-04-14] MEDS: SODIUM CHLORIDE 0.9% FLUSH 10 ML FLUSH IV FLUSH SCH ×2 (08:44→20:47)
[2017-04-14] MEDS: CEFEPIME INJ 1,000 MG in SODIUM CHLORIDE 0.9% INJ 100 ML IV SCH (08:44)
[2017-04-14] MEDS: FUROSEMIDE 40 MG/4 ML VIAL IV PUSH SCH ×2 (08:45→18:02)
[2017-04-14] MEDS: DOCUSATE SODIUM 50 MG/SENNA 8.6 MG TAB PO SCH ×2 (08:49→20:49)
[2017-04-14] MEDS: SPIRONOLACTONE 25 MG TAB PO SCH ×2 (08:49→18:02)
[2017-04-14] MEDS: FOLIC ACID 1 MG TAB PO SCH (08:49)
[2017-04-14] MEDS: PANTOPRAZOLE SODIUM 40 MG VIAL IV PUSH SCH ×2 (08:49→20:49)
[2017-04-14] MEDS: MULTIVITAMINS/MINERALS THERAPEUTIC TAB PO SCH (08:50)
[2017-04-14] MEDS: PANTOPRAZOLE SOD 40 MG DELAYED RELEASE TAB PO SCH (08:50)
[2017-04-14 12:00] VITALS: BP 146/76; PULSE 92; RESP 20; TEMP 97.2; O2SAT 100
--- NOTE | 2017-04-14 15:38 | HHI.PR ---
Subjective Remarks PT doing well. Denies any CP/SOB/N/V states his legs look better. Tells me that at the last hospitalization he was seen by nephrology however he didn't think of f/u w them as he was feeling well. Objective Vitals Vital Signs Date Time Temp Pulse Resp B/P Pulse Ox O2 Delivery O2 Flow Rate FiO2 04/14/17 12:00 97.2 92 20 146/76 100 04/14/17 09:41 99 Nasal Cannula 2.00 04/14/17 08:00 98.0 90 20 133/80 99 04/14/17 04:00 97.5 90 16 115/66 96 04/14/17 00:00 97.5 99 19 115/58 98 04/14/17 00:00 Nasal Cannula 2.00 04/13/17 20:00 98.1 96 19 124/65 94 04/13/17 20:00 91 04/13/17 20:00 Nasal Cannula 2.00 04/13/17 17:53 100 124/66 04/13/17 16:00 97.2 88 22 135/74 98 I/O 04/13/17 04/13/17 04/13/17 04/14/17 04/14/17 04/14/17 07:00 15:00 23:00 07:00 15:00 23:00 Intake Total 1030 ml 891 ml 1260 ml 860 ml Output Total 225 ml 580 ml 600 ml Balance 805 ml 311 ml 660 ml 860 ml Intake Oral 480 ml 300 ml 360 ml IV Total 550 ml 591 ml 900 ml 860 ml Output Urine Total 225 ml 580 ml 600 ml # Bowel Movements 0 0 0 Result Diagram: 04/12/17 0710 04/14/17 0300 Imaging Last Impressions Head CT 04/10/17 1950 Signed Impressions: Service Date/Time: Monday, April 10, 2017 20:40 - CONCLUSION: 1. No acute findings. No significant change from March 2016. Mannie Croft MD Lower Extremity Ultrasound 04/10/171944 Signed Impressions: Service Date/Time: Monday, April 10, 2017 21:45 - CONCLUSION: Normal examination. Mannie Croft MD Chest X-Ray 04/10/17 1831 Signed Impressions: Service Date/Time: Monday, April 10, 2017 19:06 - CONCLUSION: 1. Minimal basal atelectasis. No acute findings. Mannie Croft MD Objective Remarks GENERAL: Middle-aged male , obese, sitting up in chair HEENT: EOMI. CARDIOVASCULAR: Regular rate and rhythm. No obvious murmurs to auscultation. RESPIRATORY: No wheezing. Clear to auscultation. Breath sounds equal bilaterally. GASTROINTESTINAL: Abdomen soft, non-tender, obese, nondistended. BS normal. MUSCULOSKELETAL: Extremities without +2 pitting edema bilaterally, erythema RLE but much improved. open superficial wound on the right lower extremity NEUROLOGICAL: Awake, alert and oriented x4. No focal neurologic deficits. Moving both upper and lower extremities spontaneously. A/P Problem List: (1) Hyponatremia ICD Code: E87.1 Status: Resolved (2) COPD (chronic obstructive pulmonary disease) ICD Code: J44.9 Status: Acute (3) CHF (congestive heart failure) ICD Code: I50.9 Status: Acute (4) Cellulitis, leg ICD Code: L03.119 Status: Acute (5) Renal insufficiency ICD Code: N28.9 Status: Acute (6) A-fib ICD Code: I48.91 Status: Acute Assessment and Plan 1. Hyponatremia: Na 121 on admission, now much improved up to 132, likely secondary to dehydration, EtOH abuse, previous admit 02/03/17 for same, Na 115 at that time. continue to monitor Na, no mental status changes. urine osm low but serum osm normal. urine Na and Cr wnl. 2. COPD: Chronic Respiratory Failure. Stable. CXR w/ no acute findings, no wheezing on exam. Continue w/ home MDI/Neb treatments. Continue O2 3. CHF: Echo 02/03/17 w/ EF 65%, normal systolic function, BNP normal, CXR w/ no effusions. 4. Cellulitis: LE Cellulitis. much improved. Afebrile. WBC normal. S/p Vanc/ Zosyn in ER. Continue w/ IV Abx, transition to PO in upon discharge. principal account clerk saw the pt and the recs are as follow: "[place] right great toe and right 4th digit with Betadine BID and leave open to air. Cleanse right lower anterior extremity with wound cleanser and pat dry before applying Maxorb II over open wound and cover with foam dressing secured with rolled gauze EVERY 3-5 DAYS and PRN when soiled." 5. Renal Insufficiency: CORIN. Creatinine 1.98, now 1.92 (previously 1.24 on 02/12/17). continue to encourage po hydration. monitor Na and Cr closely. on IV fluids normal saline at 100 mL's per hour. will place nephrology consult. Pt also w chronic anemia which has been stable 6. A. fib: Chronic. on home medications. 7. DVT Prophylaxis: On Xarelto. Discharge Planning f/u on LE cellulitis f/u on Na and Cr levels. Creatinine level is worsening. Nephrology has been consulted Cristy Cuellar MD Apr 14, 2017 15:38
[2017-04-14 16:00] VITALS: BP 135/80; PULSE 96; RESP 20; TEMP 97.5; O2SAT 98
[2017-04-14] MEDS: RIVAROXABAN 15 MG TAB PO SCH (18:02)
[2017-04-14 20:00] VITALS: BP 121/56; PULSE 93; RESP 20; TEMP 97.8; O2SAT 99
[2017-04-14] MEDS: ATORVASTATIN 40 MG TAB PO SCH (20:49)
[2017-04-14] MEDS: MAGNESIUM HYDROXIDE SUSP 30 ML CUP PO PRN (20:55)
[2017-04-15] VITALS: BP 128/60; PULSE 92; RESP 18; TEMP 97.8; O2SAT 94
[2017-04-15 04:00] VITALS: BP 117/63; PULSE 98; RESP 18; TEMP 97.6; O2SAT 93
[2017-04-15] MEDS: SODIUM CHLOR 0.9% 1000 ML INJ 1,000 ML IV SCH (05:03)
[2017-04-15 08:00] VITALS: BP 119/62; PULSE 88; RESP 20; TEMP 98; O2SAT 99
[2017-04-15] MEDS: PANTOPRAZOLE SOD 40 MG DELAYED RELEASE TAB PO SCH (09:40)
[2017-04-15] MEDS: DOCUSATE SODIUM 50 MG/SENNA 8.6 MG TAB PO SCH ×2 (09:40→22:05)
[2017-04-15] MEDS: CEFEPIME INJ 1,000 MG in SODIUM CHLORIDE 0.9% INJ 100 ML IV SCH (09:40)
[2017-04-15] MEDS: MULTIVITAMINS/MINERALS THERAPEUTIC TAB PO SCH (09:40)
[2017-04-15] MEDS: FUROSEMIDE 40 MG/4 ML VIAL IV PUSH SCH (09:40)
[2017-04-15] MEDS: FOLIC ACID 1 MG TAB PO SCH (09:40)
[2017-04-15] MEDS: SPIRONOLACTONE 25 MG TAB PO SCH ×2 (09:40→17:18)
[2017-04-15] MEDS: PANTOPRAZOLE SODIUM 40 MG VIAL IV PUSH SCH ×2 (09:40→22:04)
[2017-04-15] MEDS: SODIUM CHLORIDE 0.9% FLUSH 10 ML FLUSH IV FLUSH SCH ×2 (09:41→21:00)
[2017-04-15] MEDS: BUDESONIDE-FORMOTEROL 160/4.5 MCG INHALER INH SCH ×2 (09:41→22:04)
[2017-04-15 12:00] VITALS: BP 137/74; PULSE 91; RESP 20; TEMP 97.9; O2SAT 100
--- NOTE | 2017-04-15 15:54 | HHI.PR ---
Subjective Remarks Gradual upper trend and creatinine. BMP for today is pending has been ordered stat to see if there is any change in upper trend. Nephrology consult pending. Patient is hoping of discharge today but is advised that we should not discharge if he has an upper trend in renal dysfunction. Objective Vital Signs Date Time Temp Pulse Resp B/P Pulse Ox O2 Delivery O2 Flow Rate FiO2 04/15/17 12:00 97.9 91 20 137/74 100 04/15/17 08:00 98.0 88 20 119/62 99 04/15/17 08:00 Room Air 2.00 04/15/17 04:00 97.6 98 18 117/63 93 04/15/17 00:00 Room Air 04/15/17 00:00 97.8 92 18 128/60 94 04/14/17 20:00 97.8 93 20 121/56 99 04/14/17 20:00 Nasal Cannula 2.00 04/14/17 16:00 97.5 96 20 135/80 98 I/O 04/14/17 04/14/17 04/14/17 04/15/17 04/15/17 04/15/17 07:00 15:00 23:00 07:00 15:00 23:00 Intake Total 1260 ml 1700 ml 480 ml 861 ml Output Total 600 ml 1100 ml 600 ml Balance 660 ml 600 ml -120 ml 861 ml Intake Oral 360 ml 840 ml 480 ml IV Total 900 ml 860 ml 861 ml Output Urine Total 600 ml 1100 ml 600 ml # Bowel Movements 0 0 0 Result Diagram: 04/12/17 0710 04/14/17 0300 Objective Remarks GENERAL: NAD, A&Ox3, obese HEAD: Normocephalic. NECK: Supple, trachea midline. No lymphadenopathy. EYES: No scleral icterus. No injection or drainage. CARDIOVASCULAR: Regular rate and rhythm without murmurs, gallops, or rubs. RESPIRATORY: Breath sounds equal bilaterally. No accessory muscle use. GASTROINTESTINAL: Abdomen soft, non-tender, nondistended. MUSCULOSKELETAL: No cyanosis, or edema. SKIN: Warm and dry. Bilateral lower extremities are erythematous. Right lower extremity has gauze wrapping. NEURO: No focal neurological deficitis. A/P Problem List: (1) Cellulitis, leg ICD Code: L03.119 (2) A-fib ICD Code: I48.91 (3) Renal insufficiency ICD Code: N28.9 (4) Hyponatremia ICD Code: E87.1 Assessment and Plan Assessment and plan 61-year-old male admitted secondary to severe hyponatremia and cellulitis of the right lower extremity. Hyponatremia is resolved. Acute kidney injury is present and has been progressive over the last 3 days preceding today. Cellulitis is improving on treatment. Hyponatremia Resolved Monitor sodium levels Etiology may have been related to infection COPD No exacerbation Continue home treatments which include albuterol and DuoNeb's Continue oxygen as needed Bilateral lower extremity cellulitis greater right limb Continue IV antibiotics with vancomycin and Zosyn Change to by mouth antibiotics and discharge Dressing changes at right lower extremity Acute kidney injury By mouth hydration Light IV hydration Nephrology consulted Follow renal function Atrial fibrillation Stable Continue to monitor No change in baseline treatments DVT prophylaxis Continue Xarelto Discharge Planning Patient will need stability of renal function prior to consideration for discharge Amadeo Conteh MD Apr 15, 2017 15:54
[2017-04-15] MEDS ORDERED: AUGM875T3 PO (15:57)
[2017-04-15] MEDS ORDERED: BACT800T5 PO (15:57)
[2017-04-15] MEDS ORDERED: LACTTAB8 PO (15:57)
[2017-04-15 16:00] VITALS: BP 149/68; PULSE 94; RESP 20; TEMP 97.5; O2SAT 96
--- NOTE | 2017-04-15 16:26 | PD.CONS ---
HPI Service Nephrology Consult Requested By Dr. Cuellar Reason for Consult [facility] Primary Care Physician [place] [facility] History of Present Illness The patient is a 61 yo [place] male who presented to this facility on 04/10 with complaints of 2 days of weakness, nausea, vomiting, and worsening edema. States he fell a week prior to arrival but did not seek medical attention. Was treated as outpatient recently for LE cellulitis and was given IM antibiotic. I contacted his PCP who informed me that it was Rocephin. Was provided po medication, Clindamycin, but did not take. On medication list from home, shows Bactrim, but he is not sure if he has been taking this. On arrival, thought he was dehydrated, so started on IVF. Admitting SCr at 1.98 that had initially improved to 1.66, but has now worsened to 1.92 at consult. Was started on Vancomycin for LE cellulitis He uses Lasix, Bumetanide, as well as Aldactone at home that he says is for LE edema. Denies any cardiac hx (last echo report 01/28 showed preserved EF of 65%) . He reports that he drinks 3 alcoholic cocktails daily and has done so for some time. Denies any recent NSAID use. Says he is feeling much better now than at admission. Review of Systems Cardiovascular: COMPLAINS OF: Lower Extremity Edema Integumentary: COMPLAINS OF: Abnormal pigmentation (bilat LE with cellulitis) Past Family Social History Allergies: Coded Allergies: *MDRO Multi-Drug Resistant Organism (Verified Adverse Reaction, Unknown, ) MRSA PCR (nares) positive - 01/11/16 & 02/03/17 MRSA (leg)-02/09/17 Past Medical History A fib HTN CVA CHF with preserved LVEF of 65% Obesity EtOH use Past Surgical History Appendectomy Cardiac ablation Tonsillectomy Reported Medications Lactobacillus Acidophilus 1 Tab Tab 1 Tab PO TIDAC Augmentin (Amoxicillin-Clavulanate) 875-125 Mg Tab 1 Tab PO BID Bactrim DS (Sulfamethoxazole-Trimethoprim) 800-160 Mg Tab 1 Tab PO BID Ventolin Hfa 18 GM Inh (Albuterol Sulfate) 90 Mcg/Act Aer 1 Puff INH Q4H PRN Atrovent HFA 12.9 GM Inh (Ipratropium [place]) 17 Mcg/Act Aer 2 Puff INH Q6HR PRN Gnp Vitamin B-1 (Thiamine HCl) 100 Mg Tab 100 Mg PO DAILY Furosemide 40 Mg Tab 40 Mg PO DAILY Symbicort Inh (Budesonide/Formoterol Fumarate) 160-4.5 Mcg/Act Aero 2 Puff INH Q12HR Protonix (Pantoprazole Sodium) 40 Mg Tab 40 Mg PO DAILY Atrovent HFA 12.9 GM Inh (Ipratropium [place]) 17 Mcg/Act Aer 2 Puff INH Q6HR PRN Bumetanide 0.5 Mg Tab 0.5 Mg PO BID Breo Ellipta Inh (Fluticasone/Vilanterol) 100-25 Mcg/Act Inh 1 Puff INH DAILY Use daily at the same time. Atorvastatin (Atorvastatin Calcium) 40 Mg Tab 40 Mg PO HS Spironolactone 25 Mg Tab 25 Mg PO BIDPC Metoprolol Tartrate 50 Mg Tab 50 Mg PO BID Xarelto (Rivaroxaban) 20 Mg Tab 20 Mg PO DAILY WITH DINNER Active Ordered Medications Current Medications Medications (Trade) Dose Ordered Sig/Delilah Route Start Time Stop Time Status Last Admin (Folate) 1 mg DAILY PO 04/11/17 09:00 04/16/17 08:59 04/15/17 09:40 (Theragran M Tab) 1 tab DAILY PO 04/11/17 09:00 04/16/17 08:59 04/15/17 09:40 (Romazicon Inj) 0.2 mg Q1M PRN IV PUSH 04/10/17 23:15 (Ativan) 1 mg Q4H PRN PO 04/10/17 23:15 04/11/17 00:40 (Ativan Inj) 1 mg Q4H PRN IV PUSH 04/10/17 23:15 (Ativan) 2 mg Q2H PRN PO 04/10/17 23:15 (Ativan Inj) 2 mg Q2H PRN IV PUSH 04/10/17 23:15 (Ativan Inj) 2 mg Q1H PRN IV PUSH 04/10/17 23:15 (Ativan Inj) 2 mg Q15M PRN IV PUSH 04/10/17 23:15 (Haldol Inj) 2 mg Q15M PRN IM 04/10/17 23:15 (NS Flush) 2 ml UNSCH PRN IV FLUSH 04/10/17 23:15 (NS Flush) 2 ml BID IV FLUSH 04/11/17 09:00 04/15/17 09:41 (Zofran Inj) 4 mg Q6H PRN IVP 04/10/17 23:15 04/11/17 17:39 (Tylenol) 650 mg Q6H PRN PO 04/10/17 23:15 (Roxicodone) 10 mg Q4H PRN PO 04/10/17 23:15 04/13/17 10:35 (Roxicodone) 5 mg Q4H PRN PO 04/10/17 23:15 (Coco-Colace) 1 tab BID PO 04/11/17 09:00 04/15/17 09:40 (Milk Of Magnesia Liq) 30 ml Q12H PRN PO 04/10/17 23:15 04/14/17 20:55 (Senokot) 17.2 mg Q12H PRN PO 04/10/17 23:15 (Dulcolax Supp) 10 mg DAILY PRN RECTAL 04/10/17 23:15 (Lactulose Liq) 30 ml DAILY PRN PO 04/10/17 23:15 (Lipitor) 40 mg HS PO 04/11/17 21:00 04/14/17 20:49 (Symbicort 160-4.5 Inh) 2 puff Q12HR INH 04/11/17 09:00 04/15/17 09:41 (Protonix) 40 mg DAILY PO 04/11/17 09:00 04/15/17 09:40 (Aldactone) 25 mg BIDPC PO 04/11/17 09:00 04/15/17 09:40 (Lasix Inj) 40 mg BID@18 IV PUSH 04/11/17 09:00 04/15/17 09:40 Pantoprazole Sodium 40 mg 40 mg Q12HR IV PUSH 04/10/17 23:30 04/15/17 09:40 Pharmacy Profile Note 0 ml @ 0 mls/hr UNSCH OTHER 04/11/17 01:00 (Maxipime Inj/NS Inj) 100 ml @ 200 mls/hr DAILY IV 04/11/17 09:00 04/15/17 09:40 Rivaroxaban 15 mg 15 mg DAILY@17 PO 04/11/17 17:00 04/14/17 18:02 Vancomycin HCl 1750 mg/Sodium Chloride 517.5 ml @ 250 mls/hr Q24H IV 04/12/17 02:00 Hold 04/14/17 02:57 (NS 1000 ml Inj) 1,000 ml @ 100 mls/hr Q10H IV 04/13/17 15:15 04/15/17 05:03 Family History DM and CAD No FHx of renal dysfunction Social History Drinks 3 cocktails daily Denies tobacco use No illicit drug use Is on disability for back injury. 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 HEAD: Atraumatic. Normocephalic. EYES: Pupils equal and round. No scleral icterus. No injection or drainage. ENT: No nasal bleeding or discharge. Mucous membranes pink and moist. NECK: Trachea midline. No JVD. CARDIOVASCULAR: Irregularly irregular RESPIRATORY: No accessory muscle use. Clear to auscultation. Breath sounds equal bilaterally. GASTROINTESTINAL: Abdomen soft, non-tender, nondistended. Hepatic and splenic margins not palpable. MUSCULOSKELETAL: Extremities without clubbing, cyanosis. Bilat LE are hyperpigmented with bandage on RLE. He has 1+ pitting edema up to knees. Has trace-1+ pitting edema BUE. NEUROLOGICAL: Awake and alert. No obvious cranial nerve deficits. Motor grossly within normal limits. Five out of 5 muscle strength in the arms and legs. Normal speech. PSYCHIATRIC: Appropriate mood and affect; insight and judgment normal. Laboratory Laboratory Tests Test 04/15/17 06:29 Random Vancomycin Level 22.8 Date/Time Procedure Status Source Growth 04/10/17 18:40 Aerobic Blood Culture - Final Complete Blood Peripheral NO GROWTH IN 5 DAYS 04/10/17 18:40 Anaerobic Blood Culture - Final Complete Blood Peripheral NO GROWTH IN 5 DAYS Result Diagram: 04/12/17 0710 04/14/17 0300 Imaging Last Impressions Head CT 04/10/171949 Signed Impressions: Service Date/Time: Monday, April 10, 2017 20:40 - CONCLUSION: 1. No acute findings. No significant change from March 2016. Mannie Croft MD Lower Extremity Ultrasound 04/10/17 194 Signed Impressions: Service Date/Time: Monday, April 10, 2017 21:45 - CONCLUSION: Normal examination. Mannie Croft MD Chest X-Ray 04/10/17 183 Signed Impressions: Service Date/Time: Monday, April 10, 2017 19:06 - CONCLUSION: 1. Minimal basal atelectasis. No acute findings. Mannie Croft MD Assessment and Plan Problem List: (1) Renal insufficiency Plan: The etiology of the patient's renal decline is not entirely clear. Potentially was dehydrated, but at the present is starting to retain fluid. Home medications include Bumex, Lasix, Spironolactone, and Bactrim all of which may have predisposed the patient to renal decline in setting of dehydration. He was on vancomycin and was at a toxic level 04/14, so he may have sustained some kidney injury related to vancomycin. We will repeat his renal panel as well as screen for other etiologies of renal decline. Ordered renal US D/C IVF Lasix 40mg IV tonight. Continue on Spironolactone 25mg BID Noted that he is using both Bumetanide and Furosemide at home and has been advised to hold the Bumetanide. Check serology given his anemia UA with UPCR Medications should be adjusted for the patient's renal decline. Avoid nephrotoxic medications such as iodinated contrast and NSAIDs. (2) Chronic diastolic congestive heart failure Plan: See above (3) Cellulitis, leg Plan: Management as per primary (4) Anemia Plan: Repeat CBC with Fe panel. Zaina Barger Apr 15, 2017 16:26
[2017-04-15] MEDS: RIVAROXABAN 15 MG TAB PO SCH (17:18)
[2017-04-15 17:41] LABS: BICARBONATE 28.7 MEQ/L (21.0-32.0)
[2017-04-15] MEDS ORDERED: FUROSEMIDE 40 MG TAB PO SCH (18:00)
[2017-04-15] MEDS ORDERED: FUROSEMIDE 40 MG/4 ML VIAL IV PUSH ONE (18:30)
[2017-04-15 18:42] LABS: BLOOD, URINE NEG (NEG); COMMENT (UR) CULT NOT INDICATED; CULTURE IF INDICATED CULT NOT INDICATED; GLUCOSE,URINE NEG (NEG); KETONE, URINE NEG (NEG); MUCUS URINE FEW /lpf (OCC); NITRITE,URINE NEG (NEG); PH, URINE 5.5 (5.0-8.5); SQUAMOUS EPITHELIAL CELL URINE 1 /hpf (0-5); URINE COLOR YELLOW (YELLW/STRAW)
[2017-04-15 20:00] VITALS: BP 121/70; PULSE 95; RESP 20; TEMP 98; O2SAT 96
--- NOTE | 2017-04-15 21:43 | RADRPT ---
EXAM DATE/TIME: 04/15/2017 20:59 [facility] COMPARISON: US KIDNEY/RENAL/BLADDER, September 04, 2016, 13:33. INDICATIONS : Increased lab values. MEDICAL HISTORY : Congestive heart failure. Hypercholesterolemia. Chronic obstructive pulmonary disease. Cerebrovascula r accident. Myocardial infarction. Coronary artery disease. Atrial fibrillation. Hypertension. M RSA. SURGICAL HISTORY : Tonsillectomy. Appendectomy. Right ankle surgery. Cardiac ablation x3. ENCOUNTER: Initial ACUITY: 1 day PAIN SCORE: 0/10 LOCATION: Bilateral flank MEASUREMENTS: RIGHT KIDNEY: 11.7 x 4.9 x 5.1 cm LEFT KIDNEY: 11.6 x 4.7 x 6.3 cm FINDINGS: RIGHT KIDNEY: Renal cortex is normal in thickness and echotexture. No hydronephrosis, stone, or mass. LEFT KIDNEY: Renal cortex is normal in thickness and echotexture. No hydronephrosis, stone, or mass. BLADDER: Within normal limits given the degree of distension. CONCLUSION: Negative renal sonogram. Gonzalez Saleh MD on April 15, 2017 at 21:41 Board Certified Radiologist. This report was verified electronically.
[2017-04-15] MEDS: ATORVASTATIN 40 MG TAB PO SCH (22:05)
[2017-04-16] VITALS: BP 113/56; PULSE 92; RESP 20; TEMP 97.5; O2SAT 96
[2017-04-16 04:00] VITALS: BP 109/71; PULSE 95; RESP 20; TEMP 97.5; O2SAT 95
[2017-04-16] MEDS: MAGNESIUM HYDROXIDE SUSP 30 ML CUP PO PRN (05:16)
[2017-04-16 08:00] VITALS: BP_SYST 129; BP_SYST 137; BP_DIAS 64; BP_DIAS 76; PULSE 84; PULSE 90; RESP 20; TEMP 97.4; TEMP 98.1; O2SAT 97
[2017-04-16] MEDS: SPIRONOLACTONE 25 MG TAB PO SCH (08:52)
[2017-04-16] MEDS: DOCUSATE SODIUM 50 MG/SENNA 8.6 MG TAB PO SCH (08:52)
[2017-04-16] MEDS: PANTOPRAZOLE SOD 40 MG DELAYED RELEASE TAB PO SCH (08:52)
[2017-04-16] MEDS: CEFEPIME INJ 1,000 MG in SODIUM CHLORIDE 0.9% INJ 100 ML IV SCH ×2 (08:53→12:58)
[2017-04-16] MEDS: SODIUM CHLORIDE 0.9% FLUSH 10 ML FLUSH IV FLUSH SCH (08:53)
[2017-04-16] MEDS: PANTOPRAZOLE SODIUM 40 MG VIAL IV PUSH SCH (08:53)
[2017-04-16] MEDS: BUDESONIDE-FORMOTEROL 160/4.5 MCG INHALER INH SCH (08:54)
[2017-04-16 09:11] LABS: IMMUNOGLOBULIN G 940 MG/DL (670-1650); KAPPA LAMBDA RATIO 1.91 (1.57-3.93); LAMBDA LIGHT CHAIN 128 MG/DL (90-210)
[2017-04-16 09:22] LABS: FERRITIN 119 NG/ML (26-388); IMMUNOGLOBULIN A 170 MG/DL (98-543); IMMUNOGLOBULIN M 74 MG/DL (39-238); TOTAL PROTEIN SPE 6.3 GM/DL (6.0-7.6); TRANSFERRIN IRON PROFILE 257 MG/DL (200-360)
[2017-04-16 09:28] LABS: BICARBONATE 28.6 MEQ/L (21.0-32.0); POTASSIUM 4.3 MEQ/L (3.5-5.1)
[2017-04-16 12:33] LABS: HEMATOCRIT 31.7 % (39.0-51.0); MEAN CELL VOLUME 99.5 FL (80.0-100.0); MEAN CORPUSCULAR HEMOGLOBIN 32.7 PG (27.0-34.0); MEAN CORPUSCULAR HGB CONC 32.8 % (32.0-36.0); PLATELET COUNT 170 TH/MM3 (150-450); RED BLOOD COUNT 3.18 MIL/MM3 (4.50-5.90); RED CELL DISTRIBUTION WIDTH 17.4 % (11.6-17.2); REVIEW FLAG FINAL; WHITE BLOOD COUNT 4.7 TH/MM3 (4.0-11.0)
--- NOTE | 2017-04-16 14:50 | HHI.DS ---
Discharge Summary Admission Date Apr 10, 2017 at 11:02 pm Discharge Date: Apr 16, 2017 Admitting Diagnosis severe hyponatremia/leg cellulitis (1) Hyponatremia ICD Code: E87.1 Diagnosis: Principal (2) COPD (chronic obstructive pulmonary disease) ICD Code: J44.9 Diagnosis: Principal (3) CHF (congestive heart failure) ICD Code: I50.9 Diagnosis: Principal (4) Cellulitis, leg ICD Code: L03.119 Diagnosis: Principal (5) Renal insufficiency ICD Code: N28.9 Diagnosis: Principal (6) A-fib ICD Code: I48.91 Diagnosis: Principal Procedures None Brief History - From Admission This is a 61-year-old male with PMH of A. fib on Eliquis, HTN, CAD, COPD, O2 Dependent, h/o CVA and CHF (Echo 02/03/17 w/ EF 65%) who presented to the ER w/ complaints of generalized weakness, nausea/vomiting x2 days. Reports fall approx 1wk ago due to similar symptoms, however did not seek medical attention at that time. Denies LOC. No fever, chills, cough, chest pain or sick contacts reported. Does mention progressive lower extremity edema x2 days. On arrival, BP 120/65, HR 88, O2 sat 97% on 2L NC, Afebrile. CBC at baseline. Na 121. Creatinine 1.98, previously 1.24 on 02/12/17. Troponin negative. INR 1.6. Alcohol 109. Hemoccult Negative. CT Abdomen no acute findings. Lower Extremity US negative for DVT. CXR with minimal basilar atelectasis no acute findings. S/p Vanc/Zosyn in ER and IVF. CBC/BMP: 04/16/17 1206 04/16/17 0712 Significant Findings Laboratory Tests Test 04/14/17 04/15/17 04/15/17 04/16/17 03:00 16:43 17:50 07:12 Blood Urea Nitrogen 30 MG/DL (7-18) 28 MG/DL (7-18) 27 MG/DL (7-18) Creatinine 1.92 MG/DL 1.79 MG/DL 1.58 MG/DL (0.60-1.30) (0.60-1.30) (0.60-1.30) Estimat Glomerular Filtration 36 ML/MIN (>89) 39 ML/MIN (>89) 45 ML/MIN (>89) Rate Random Glucose 119 MG/DL 121 MG/DL (74-106) (74-106) Vancomycin Level Trough 22.1 MCG/ML (5.0-10.0) Urine Mucus FEW /lpf (OCC) Urine Eosinophils RARE /HPF (NONE SEEN) Urine Random Total Protein 16 MG/DL (0-11.8) Urine Protein/Creatinine Ratio 0.16 (0.00-0.14) Test 04/16/17 04/16/17 07:15 12:06 Iron Level 42 MCG/DL (65-175) Percent Iron Saturation 11.7 % (20-50) Red Blood Count 3.18 MIL/MM3 (4.50-5.90) Hemoglobin 10.4 GM/DL (13.0-17.0) Hematocrit 31.7 % (39.0-51.0) Red Cell Distribution Width 17.4 % (11.6-17.2) Mean Platelet Volume 6.6 FL (7.0-11.0) PE at Discharge GENERAL: NAD, A&Ox3 HEAD: Normocephalic. NECK: Supple, trachea midline. No lymphadenopathy. EYES: No scleral icterus. No injection or drainage. CARDIOVASCULAR: Regular rate and rhythm without murmurs, gallops, or rubs. RESPIRATORY: Breath sounds equal bilaterally. No accessory muscle use. GASTROINTESTINAL: Abdomen soft, non-tender, nondistended. MUSCULOSKELETAL: No cyanosis, or edema. Bilateral lower extremities are chronically erythematous. Right lower extremity has bandage in place. SKIN: Warm and dry. NEURO: No focal neurological deficits Hospital Course Mr. Nix is a 61-year-old male. He was admitted secondary to severe hyponatremia and bilateral lower leg cellulitis greater at the right leg. On antibiotics his extremities have improved. She was originally given vancomycin but had slight worsening of his renal function. With the change of vancomycin to cefepime this improved. Renal function is now near baseline. A renal ultrasound was negative for any anatomic abnormality. His hyponatremia has improved and was likely secondary to infection. At this point is medically stable and cleared for discharge to home. He will discharged on oral Bactrim and Augmentin for one more week. Pt Condition on Discharge: Stable Discharge Disposition: Discharge Home Discharge Time: <= 30 minutes Discharge Instructions DIET: Follow Instructions for: As Tolerated, No Restrictions Activities you can perform: Regular-No Restrictions Follow up Referrals: PCP Follow-up - 1 Week New Medications: Amoxicillin-Clavulanate (Augmentin) 875-125 Mg Tab 1 TAB PO BID Infection #10 Ref 0 TAB Lactobacillus Acidophilus (Lactobacillus Acidophilus) 1 Tab Tab 1 TAB PO TIDAC Nutritional Supplement #30 Ref 0 TAB Sulfamethoxazole-Trimethoprim (Bactrim DS) 800-160 Mg Tab 1 TAB PO BID Infection #14 Ref 0 TAB Continued Medications: Albuterol 18 GM Inh (Ventolin Hfa 18 GM Inh) 90 Mcg/Act Aer 1 PUFF INH Q4H PRN SHORTNESS OF BREATH #1 Ref 3 INHALER Atorvastatin (Atorvastatin) 40 Mg Tab 40 MG PO HS Cholesterol Management #30 Ref 0 TAB Budesonide-Formoterol Inh (Symbicort Inh) 160-4.5 Mcg/Act Aero 2 PUFF INH Q12HR Breathing Treatment #1 Ref 3 INHALER Bumetanide (Bumetanide) 0.5 Mg Tab 0.5 MG PO BID Ref 0 TAB Fluticasone-Vilanterol Inh (Breo Ellipta Inh) 100-25 Mcg/Act Inh 1 PUFF INH DAILY Use daily at the same time. #1 Ref 0 INHALER Furosemide (Furosemide) 40 Mg Tab 40 MG PO DAILY Prevent Heart Failure #30 Ref 3 TAB Ipratropium HFA 12.9 GM Inh (Atrovent HFA 12.9 GM Inh) 17 Mcg/Act Aer 2 PUFF INH Q6HR PRN SHORTNESS OF BREATH #1 Ref 3 INHALER Ipratropium HFA 12.9 GM Inh (Atrovent HFA 12.9 GM Inh) 17 Mcg/Act Aer 2 PUFF INH Q6HR PRN SHORTNESS OF BREATH #1 Ref 0 INHALER Metoprolol Tartrate (Metoprolol Tartrate) 50 Mg Tab 50 MG PO BID #60 Ref 0 TAB Pantoprazole (Protonix) 40 Mg Tab 40 MG PO DAILY Reflux #30 Ref 0 TAB Rivaroxaban (Xarelto) 20 Mg Tab 20 MG PO DAILY WITH DINNER Blood Clot Prevention Ref 0 TAB Spironolactone (Spironolactone) 25 Mg Tab 25 MG PO BIDPC #60 Ref 0 TAB Thiamine HCl (Gnp Vitamin B-1) 100 Mg Tab 100 MG PO DAILY Alcohol Detox #30 TAB Amadeo Conteh MD Apr 16, 2017 2:50 pm
[2017-04-17 18:24] LABS: ALBUMIN SPE 3.52 GM/DL (3.50-5.00); ALPHA 2 GLOBULIN 0.76 GM/DL (0.22-1.00); BETA GLOBULINS (SPE) 0.74 GM/DL (0.53-1.03)
[2017-04-17 23:53] LABS: KAPPA/LAMBDA FREE 1.22 (0.26-1.65)
== END 2017-04-16 15:51 | disposition home or self-care (01) | DRG 641 ==
LOC: NEPE 17:35 → NEDA 23:02 → N04A 04-11
PROVIDERS: ADMIT Hospitalist; ATTEND Hospitalist
DX: E87.1 Hypo-osmolality and hyponatremia (principal); E86.0 Dehydration; N17.9 Acute kidney failure, unspecified; J96.10 Chronic respiratory failure, unspecified whether with hypoxia or hypercapnia; L03.115 Cellulitis of right lower limb; I48.2 Chronic atrial fibrillation; I50.42 Chronic combined systolic (congestive) and diastolic (congestive) heart failure; L03.116 Cellulitis of left lower limb; I13.0 Hypertensive heart and chronic kidney disease with heart failure and stage 1 through stage 4 chronic kidney disease, or unspecified chronic kidney disease; J44.9 Chronic obstructive pulmonary disease, unspecified; D64.9 Anemia, unspecified; N18.9 Chronic kidney disease, unspecified; I25.10 Atherosclerotic heart disease of native coronary artery without angina pectoris; Z79.01 Long term (current) use of anticoagulants; Z86.73 Personal history of transient ischemic attack (TIA), and cerebral infarction without residual deficits; Z99.81 Dependence on supplemental oxygen; G47.30 Sleep apnea, unspecified; R56.9 Unspecified convulsions
CPT/HCPCS: 70450; 71010; 76775; 76937; 80048; 80053; 80202; 80307; 81001; 82306; 82550; 82570; 82728; 82784; 82948; 83540; 83550; 83605; 83880; 83883; 83930; 83935; 83970; 84156; 84165; 84295; 84300; 84484; 85025; 85027; 85610; 85730; 86334; 87040; 87205; 93005; 93970; 96361; 96365; C9113; J0692; J1940; J2405; J2543; J3370; J7030; J7040; J7050

== ENCOUNTER 2017-05-08 17:17 | Emergency (ER) | payer MEDICARE, OTHER ==
[~2017-05-08] VITALS: Ht 175.3 cm; Wt 135.0 kg
[~2017-05-08 17:17] MED LIST changes: +AUGM875T3 PO; +BACT800T5 PO; +BUME0.5T PO; +FLUT1INH INH; +LACTTAB8 PO; -PRED10 PO
[2017-05-08 18:01] VITALS: BP 112/53; PULSE 84; RESP 20; TEMP 97.9; O2SAT 98
[2017-05-08 18:36] VITALS: BP 125/67; PULSE 86; RESP 20; O2SAT 99
--- NOTE | 2017-05-08 18:43 | PD ---
HPI Chief Complaint: Pain: Acute or Chronic Time Seen by Provider: 18:43 Travel History International Travel<30 days: No Contact w/Intl Traveler<30days: No Traveled to known affect area: No History of Present Illness HPI 61-year-old male resents to the emergency department with increasing lower extremity pain, warmth, and swelling. Patient has history of CHF and chronic lower extremity venous stasis and recurrent cellulitis. Patient has a history of MRSA. Patient denies significant history of fever, chills, has had increased shortness of breath but denies chest pain. Patient was last seen here with similar symptoms and was admitted for severe hyponatremia, and bilateral lower extremity cellulitis. Patient's pain is currently about an 8 out of 10 on the right than the left. He has a history of MRSA but no known drug allergies. PFSH Past Medical History Hx Anticoagulant Therapy: Yes Asthma: No Atrial Fibrillation: Yes Heart Rhythm Problems: Yes (A-FIB) Cancer: No Cardiac Catheterization: Yes Cardiovascular Problems: Yes High Cholesterol: Yes Chest Pain: Yes Congestive Heart Failure: Yes COPD: Yes (HOME O2 2 L NC) Cerebrovascular Accident: Yes Coronary Artery Disease: Yes Diabetes: No Diminished Hearing: No Endocrine: No Gastrointestinal Disorders: No Genitourinary: Yes Hypertension: Yes Immune Disorder: No Implanted Vascular Access Dvce: No Musculoskeletal: Yes Neurologic: Yes Psychiatric: No Reproductive: No Respiratory: Yes Integumentary: Yes (BILATERAL LOWER LEG SWELLING/SKIN ITEGRATY ISSUES cellulitis) Immunizations Current: Yes Migraines: No Seizures: Yes Sleep Apnea: Yes (DOES NOT HAVE CPAP) Thyroid Disease: No Past Surgical History Abdominal Surgery: Yes (apendix) Appendectomy: Yes Cardiac Surgery: Yes (ABLATIONS X 3 (afib)) Genitourinary Surgery: No Neurologic Surgery: No Tonsillectomy: Yes Other Surgery: Yes (ABLATION X 3) Social History Alcohol Use: Yes (RARE) Tobacco Use: No Substance Use: No Allergies-Medications (Allergen,Severity, Reaction): Coded Allergies: *MDRO Multi-Drug Resistant Organism (Verified Adverse Reaction, Unknown, ) MRSA PCR (nares) positive - 01/11/16 & 02/03/17 MRSA (leg)-02/09/17 Reported Meds & Prescriptions Reported Meds & Active Scripts Active Lactobacillus Acidophilus 1 Tab Tab 1 Tab PO TIDAC Ventolin Hfa 18 GM Inh (Albuterol Sulfate) 90 Mcg/Act Aer 1 Puff INH Q4H PRN Atrovent HFA 12.9 GM Inh (Ipratropium [place]) 17 Mcg/Act Aer 2 Puff INH Q6HR PRN Furosemide 40 Mg Tab 40 Mg PO DAILY Symbicort Inh (Budesonide/Formoterol Fumarate) 160-4.5 Mcg/Act Aero 2 Puff INH Q12HR Protonix (Pantoprazole Sodium) 40 Mg Tab 40 Mg PO DAILY Reported Atrovent HFA 12.9 GM Inh (Ipratropium [place]) 17 Mcg/Act Aer 2 Puff INH Q6HR PRN Bumetanide 0.5 Mg Tab 0.5 Mg PO BID Breo Ellipta Inh (Fluticasone/Vilanterol) 100-25 Mcg/Act Inh 1 Puff INH DAILY Use daily at the same time. Atorvastatin (Atorvastatin Calcium) 40 Mg Tab 40 Mg PO HS Metoprolol Tartrate 50 Mg Tab 50 Mg PO BID Xarelto (Rivaroxaban) 20 Mg Tab 20 Mg PO DAILY WITH DINNER Review of Systems Except as stated in HPI: all other systems reviewed are Neg General / Constitutional: No: Fever Eyes: No: Visual changes HENT: No: Headaches Cardiovascular: No: Chest Pain or Discomfort Respiratory: No: Shortness of Breath Gastrointestinal: No: Abdominal Pain Genitourinary: No: Dysuria Musculoskeletal: No: Pain Skin: No Rash Neurologic: No: Weakness Psychiatric: No: Depression Endocrine: No: Polydipsia Hematologic/Lymphatic: No: Easy Bruising Physical Exam Narrative GENERAL: Patient appears in mild to moderate distress. He is able to speak in short sentences. He is wearing O2. SKIN: Warm and dry. Normal color. Normal turgor. Patient has bilateral 3+ indurated non-pitting edema to both lower extremities with increased erythema and warmth bilaterally more on the right than the left. Erythema extends above the knee on the right. Patient has a chronic right nonhealing wound to the right foot and ankle. HEAD: Atraumatic. Normocephalic. EYES: Pupils equal and round. No scleral icterus. No injection or drainage. ENT: No nasal bleeding or discharge. Mucous membranes pink and moist. Pharynx is clear. Airway is patent. NECK: Trachea midline. No JVD. CARDIOVASCULAR: Regular rate and rhythm. No murmurs gallops or rubs. RESPIRATORY: No accessory muscle use. Clear to auscultation. Breath sounds equal bilaterally. GASTROINTESTINAL: Abdomen soft, non-tender, nondistended. Hepatic and splenic margins not palpable. MUSCULOSKELETAL: Extremities without clubbing, cyanosis, 3+ nonpitting edema bilaterally. No obvious deformities. NEUROLOGICAL: Awake and alert. No obvious cranial nerve deficits. Motor grossly within normal limits. Five out of 5 muscle strength in the arms and legs. Normal speech. PSYCHIATRIC: Appropriate mood and affect; insight and judgment normal. Data Data Last Documented VS Vital Signs Date Time Temp Pulse Resp B/P (MAP) Pulse Ox O2 Delivery O2 Flow Rate FiO2 05/08/17 20:22 83 18 109/53 (71) 99 05/08/17 18:36 Nasal Cannula 2.00 05/08/17 18:01 97.9 Orders Orders Complete Blood Count With Diff (05/08/17 18:47) Comprehensive Metabolic Panel (05/08/17 18:47) B-Type Natriuretic Peptide (05/08/17 18:47) Act Partial Throm Time (Ptt) (05/08/17 18:47) Prothrombin Time / Inr (Pt) (05/08/17 18:47) Magnesium (Mg) (05/08/17 18:47) Ckmb (Isoenzyme) Profile (05/08/17 18:47) Troponin I (05/08/17 18:47) Urinalysis - C+S If Indicated (05/08/17 18:47) Blood Culture (05/08/17 18:47) Iv Access Insert/Monitor (05/08/17 18:47) Electrocardiogram (05/08/17 18:47) Ecg Monitoring (05/08/17 18:47) Oximetry (05/08/17 18:47) Oxygen Administration (05/08/17 18:47) Chest, Single Ap (05/08/17 18:47) Sodium Chloride 0.9% Flush (Ns Flush) (05/08/17 19:00) Furosemide Inj (Lasix Inj) (05/08/17 19:00) Us Leg Venous Doppler Bilat (05/08/17 18:47) Lactic Acid (05/08/17 20:31) Sulfamet-Trimeth Ds 800-160 Mg (Bactrim (05/08/17 20:45) Labs Laboratory Tests Test 05/08/17 19:05 White Blood Count 6.6 TH/MM3 Red Blood Count 3.38 MIL/MM3 Hemoglobin 10.7 GM/DL Hematocrit 32.8 % Mean Corpuscular Volume 96.9 FL Mean Corpuscular Hemoglobin 31.7 PG Mean Corpuscular Hemoglobin Concent 32.8 % Red Cell Distribution Width 16.8 % Platelet Count 253 TH/MM3 Mean Platelet Volume 6.2 FL Neutrophils (%) (Auto) 73.3 % Lymphocytes (%) (Auto) 13.1 % Monocytes (%) (Auto) 6.9 % Eosinophils (%) (Auto) 4.1 % Basophils (%) (Auto) 2.6 % Neutrophils # (Auto) 4.8 TH/MM3 Lymphocytes # (Auto) 0.9 TH/MM3 Monocytes # (Auto) 0.5 TH/MM3 Eosinophils # (Auto) 0.3 TH/MM3 Basophils # (Auto) 0.2 TH/MM3 CBC Comment DIFF FINAL Differential Comment Prothrombin Time 15.1 SEC Prothromb Time International Ratio 1.3 RATIO Activated Partial Thromboplast Time 39.2 SEC Urine Color YELLOW Urine Turbidity CLEAR Urine pH 5.0 Urine Specific [place] 1.008 Urine Protein NEG mg/dL Urine Glucose (UA) NEG mg/dL Urine Ketones NEG mg/dL Urine Occult Blood NEG Urine Nitrite NEG Urine Bilirubin NEG Urine Urobilinogen LESS THAN 2.0 MG/DL Urine Leukocyte Esterase NEG Urine WBC LESS THAN 1 /hpf Urine Squamous Epithelial Cells <1 /hpf Urine Hyaline Casts 3 /lpf Microscopic Urinalysis Comment CULT NOT INDICATED Blood Urea Nitrogen 34 MG/DL Creatinine 1.60 MG/DL Random Glucose 96 MG/DL Total Protein 7.4 GM/DL Albumin 3.2 GM/DL Calcium Level 8.0 MG/DL Magnesium Level 1.9 MG/DL Alkaline Phosphatase 215 U/L Aspartate Amino Transf (AST/SGOT) 40 U/L Alanine Aminotransferase (ALT/SGPT) 31 U/L Total Bilirubin 0.5 MG/DL Sodium Level 127 MEQ/L Potassium Level 4.0 MEQ/L Chloride Level 92 MEQ/L Carbon Dioxide Level 21.2 MEQ/L Anion Gap 14 MEQ/L Estimat Glomerular Filtration Rate 44 ML/MIN Total Creatine Kinase 52 U/L Troponin I 0.02 NG/ML B-Type Natriuretic Peptide 63 PG/ML MDM Medical Decision Making Medical Screen Exam Complete: Yes Emergency Medical Condition: Yes Medical Record Reviewed: Yes Differential Diagnosis Bilateral lower extremity cellulitis. Lower extremity edema. Possible DVT. CHF. Electrolyte disturbance. COPD. Narrative Course Patient appears medically stable at time of exam. Labs are ordered including CBC, CMP, proBNP, lactic acid, blood cultures 2, cardiac labs, urinalysis. EKG and chest x-ray are ordered. Ultrasound of both lower extremities are ordered. IV access is obtained patient is given 80 mg Lasix IV. Ultrasound shows no signs of DVT or abscess. Chest x-ray is unremarkable. EKG shows no acute findings. CBC shows his chronic anemia which is unchanged from previous. No significant leukocytosis. Urinalysis is unremarkable. CMP is remarkable for sodium of 127. Potassium is 4.0, chloride is 92, BUN is 34, creatinine is 1.60 which is typical for him. Alkaline phosphatase slightly elevated at 2:15, BNP is 63, albumin is 3.2. Coagulation studies shows a PT of 15.1 and INR 1.3. Lactic acid is ordered. Patient discussed with Dr. Jameson who sees the patient as well. Dr. Jameson saw that the patient has gross hematuria in his urinal despite previous urinalysis showing no significant findings. Penis was examined closely and found to have a small scab/blood blister to the tip of the meatus just to the left of the meatus itself. Patient is felt to be medically stable after discussion with Dr. Jameson in his exam. Patient is felt to have chronic lymphedema with risk for cellulitis but his labs are stable today. Patient is given Bactrim DS twice a day 10 days. Patient should continue with fluid restriction and perhaps use Gatorade rather than water to watch his sodium. Labs show no obvious reason to admit the patient at this time. Patient should follow-up with his primary care physician as soon as possible to continue care, as well as perhaps be set up for the wound clinic. Patient can return the emergency Department with worsening symptoms if necessary. Diagnosis Primary Impression: Lymphedema of both lower extremities Additional Impressions: Chronic hyponatremia Cellulitis Qualified Codes: L03.119 - Cellulitis of unspecified part of limb Referrals: [facility] Patient Instructions: Cellulitis (ED), General Instructions, Leg Edema (ED) Additional Instructions: Patient is felt to have chronic lymphedema with risk for cellulitis but his labs are stable today. Patient is given Bactrim DS twice a day 10 days. Patient should continue with fluid restriction and perhaps use Gatorade rather than water to watch his sodium. Labs show no obvious reason to admit the patient at this time. Patient should follow-up with his primary care physician as soon as possible to continue care, as well as perhaps be set up for the wound clinic. Patient can return the emergency Department with worsening symptoms if necessary. Med/Other Pt SpecificInfo: Prescription(s) given Disposition: 01 DISCHARGE HOME Condition: Stable Wade Lind May 08, 2017 18:43
[2017-05-08] MEDS ORDERED: SODIUM CHLORIDE 0.9% FLUSH 10 ML FLUSH IVF PRN (19:00)
[2017-05-08] MEDS ORDERED: FUROSEMIDE 100 MG/10 ML VIAL IVP ONE (19:00)
--- NOTE | 2017-05-08 19:25 | RADRPT ---
EXAM DATE/TIME: 05/08/2017 19:06 [facility] COMPARISON: CHEST SINGLE AP, April 10, 2017, 19:06. INDICATIONS : Chest pain and shortness of breath. MEDICAL HISTORY : Chronic obstructive pulmonary disease. Hypercholesterolemia. Myocardial infarction. AFIB, congest shyam heart failure. SURGICAL HISTORY : Cardiac cath, 3 ablations. ENCOUNTER: Initial ACUITY: 1 day PAIN SCORE: 10/10 LOCATION: Bilateral chest FINDINGS: No infiltrate, effusion or pneumothorax. Mild cardiomegaly stable. CONCLUSION: No evidence of acute cardiopulmonary disease. Stable, mild compensated cardiomegaly. Renny Smith MD on May 08, 2017 at 19:23 Board Certified Radiologist. This report was verified electronically.
[2017-05-08 19:36] VITALS: PULSE 82; RESP 18; O2SAT 99
[2017-05-08 20:11] LABS: AUTOMATED NEUTROPHIL # 4.8 TH/MM3 (1.8-7.7); BASOPHIL # 0.2 TH/MM3 (0-0.2); BASOPHIL % 2.6 % (0.0-2.0); EOSINOPHIL # 0.3 TH/MM3 (0-0.4); EOSINOPHIL % 4.1 % (0.0-4.0); HEMATOCRIT 32.8 % (39.0-51.0); HEMO FLAGS DIFF FINAL; LYMPH % 13.1 % (9.0-44.0); LYMPHOCYTE # 0.9 TH/MM3 (1.0-4.8); MEAN CELL VOLUME 96.9 FL (80.0-100.0); MEAN CORPUSCULAR HEMOGLOBIN 31.7 PG (27.0-34.0); MEAN CORPUSCULAR HGB CONC 32.8 % (32.0-36.0); MONO % 6.9 % (0.0-8.0); NEUT % 73.3 % (16.0-70.0); PLATELET COUNT 253 TH/MM3 (150-450); RED BLOOD COUNT 3.38 MIL/MM3 (4.50-5.90); RED CELL DISTRIBUTION WIDTH 16.8 % (11.6-17.2); WHITE BLOOD COUNT 6.6 TH/MM3 (4.0-11.0)
[2017-05-08 20:16] LABS: ANION GAP 14 MEQ/L (5-15); APTT (PATIENT) 39.2 SEC (24.3-30.1); AST (GOT) 40 U/L (15-37); BICARBONATE 21.2 MEQ/L (21.0-32.0); BLOOD UREA NITROGEN 34 MG/DL (7-18); BLOOD, URINE NEG (NEG); CHLORIDE 92 MEQ/L (98-107); COMMENT (UR) CULT NOT INDICATED; CULTURE IF INDICATED CULT NOT INDICATED; GLOMERULAR FILTRATION RATE 44 ML/MIN (>89); GLUCOSE,URINE NEG (NEG); HYALINE CAST, URINE 3 /lpf (RARE); INTERNATIONAL NORMALIZED RATIO 1.3 RATIO; KETONE, URINE NEG (NEG); MAGNESIUM 1.9 MG/DL (1.5-2.5); NITRITE,URINE NEG (NEG); PROTHROMBIN TIME - PATIENT 15.1 SEC (9.8-11.6); SODIUM (NA) 127 MEQ/L (136-145); SQUAMOUS EPITHELIAL CELL URINE <1 /hpf (0-5); URINE COLOR YELLOW (YELLW/STRAW)
[2017-05-08 20:17] LABS: ALT (GPT) 31 U/L (12-78)
[2017-05-08 20:21] LABS: ALKALINE PHOSPHATASE 215 U/L (45-117); TOTAL BILIRUBIN ADULT 0.5 MG/DL (0.2-1.0)
[2017-05-08 20:22] VITALS: BP 109/53; PULSE 83; RESP 18; O2SAT 99
--- NOTE | 2017-05-08 20:23 | RADRPT ---
EXAM DATE/TIME: 05/08/2017 19:35 [facility] COMPARISON: US LEG BILATERAL VENOUS DOPPLER, April 10, 2017, 21:45. INDICATIONS : Bilateral leg swelling. MEDICAL HISTORY : Stroke. Myocardial infarction. Congestive heart failure. Seizures. Numbness. Anticoagulant therapy. H ypercholestrolemia. Chest pain. Atrial fibrillation. Hypertension. COPD. Dyspnea. SURGICAL HISTORY : Tonsillectomy.Appendectomy. Cardiac catheterization. Circumcison. Right ankle surgery. ENCOUNTER: Subsequent ACUITY: >1 year PAIN SCORE: 2/10 LOCATION: Bilateral legs. TECHNIQUE: Venous ultrasound of the left and right leg was performed from the inguinal ligament to the proximal calf. Real-time, color Doppler and spectral tracing, compression and augmentation techniques were us ed. FINDINGS: RIGHT LEG: There is normal compressibility of the deep venous system from the inguinal region to the proximal ca lf. No echogenic clot is seen in the lumen of the common femoral, femoral, popliteal, and posterior tibial veins. There is a normal response of the venous system to proximal and distal augmentation an d respiration. LEFT LEG: There is normal compressibility of the deep venous system from the inguinal region to the proximal ca lf. No echogenic clot is seen in the lumen of the common femoral, femoral, popliteal, and posterior tibial veins. There is a normal response of the venous system to proximal and distal augmentation an d respiration. CONCLUSION: No DVT seen of either lower extremity. Renny Smith MD on May 08, 2017 at 20:21 Board Certified Radiologist. This report was verified electronically.
[2017-05-08 20:25] LABS: CREATINE KINASE 52 U/L (39-308)
--- NOTE | 2017-05-08 20:34 | PD ---
Physical Exam Narrative Patient was seen and examined with my photographer's assistant. Data Data Last Documented VS Vital Signs Date Time Temp Pulse Resp B/P (MAP) Pulse Ox O2 Delivery O2 Flow Rate FiO2 05/08/17 20:22 83 18 109/53 (71) 99 05/08/17 18:36 Nasal Cannula 2.00 05/08/17 18:01 97.9 Orders Orders Complete Blood Count With Diff (05/08/17 18:47) Comprehensive Metabolic Panel (05/08/17 18:47) B-Type Natriuretic Peptide (05/08/17 18:47) Act Partial Throm Time (Ptt) (05/08/17 18:47) Prothrombin Time / Inr (Pt) (05/08/17 18:47) Magnesium (Mg) (05/08/17 18:47) Ckmb (Isoenzyme) Profile (05/08/17 18:47) Troponin I (05/08/17 18:47) Urinalysis - C+S If Indicated (05/08/17 18:47) Blood Culture (05/08/17 18:47) Iv Access Insert/Monitor (05/08/17 18:47) Electrocardiogram (05/08/17 18:47) Ecg Monitoring (05/08/17 18:47) Oximetry (05/08/17 18:47) Oxygen Administration (05/08/17 18:47) Chest, Single Ap (05/08/17 18:47) Sodium Chloride 0.9% Flush (Ns Flush) (05/08/17 19:00) Furosemide Inj (Lasix Inj) (05/08/17 19:00) Us Leg Venous Doppler Bilat (05/08/17 18:47) Labs Laboratory Tests Test 05/08/17 19:05 White Blood Count 6.6 TH/MM3 Red Blood Count 3.38 MIL/MM3 Hemoglobin 10.7 GM/DL Hematocrit 32.8 % Mean Corpuscular Volume 96.9 FL Mean Corpuscular Hemoglobin 31.7 PG Mean Corpuscular Hemoglobin Concent 32.8 % Red Cell Distribution Width 16.8 % Platelet Count 253 TH/MM3 Mean Platelet Volume 6.2 FL Neutrophils (%) (Auto) 73.3 % Lymphocytes (%) (Auto) 13.1 % Monocytes (%) (Auto) 6.9 % Eosinophils (%) (Auto) 4.1 % Basophils (%) (Auto) 2.6 % Neutrophils # (Auto) 4.8 TH/MM3 Lymphocytes # (Auto) 0.9 TH/MM3 Monocytes # (Auto) 0.5 TH/MM3 Eosinophils # (Auto) 0.3 TH/MM3 Basophils # (Auto) 0.2 TH/MM3 CBC Comment DIFF FINAL Differential Comment Prothrombin Time 15.1 SEC Prothromb Time International Ratio 1.3 RATIO Activated Partial Thromboplast Time 39.2 SEC Urine Color YELLOW Urine Turbidity CLEAR Urine pH 5.0 Urine Specific [place] 1.008 Urine Protein NEG mg/dL Urine Glucose (UA) NEG mg/dL Urine Ketones NEG mg/dL Urine Occult Blood NEG Urine Nitrite NEG Urine Bilirubin NEG Urine Urobilinogen LESS THAN 2.0 MG/DL Urine Leukocyte Esterase NEG Urine WBC LESS THAN 1 /hpf Urine Squamous Epithelial Cells <1 /hpf Urine Hyaline Casts 3 /lpf Microscopic Urinalysis Comment CULT NOT INDICATED Blood Urea Nitrogen 34 MG/DL Creatinine 1.60 MG/DL Random Glucose 96 MG/DL Total Protein 7.4 GM/DL Albumin 3.2 GM/DL Calcium Level 8.0 MG/DL Magnesium Level 1.9 MG/DL Alkaline Phosphatase 215 U/L Aspartate Amino Transf (AST/SGOT) 40 U/L Alanine Aminotransferase (ALT/SGPT) 31 U/L Total Bilirubin 0.5 MG/DL Sodium Level 127 MEQ/L Potassium Level 4.0 MEQ/L Chloride Level 92 MEQ/L Carbon Dioxide Level 21.2 MEQ/L Anion Gap 14 MEQ/L Estimat Glomerular Filtration Rate 44 ML/MIN Total Creatine Kinase 52 U/L Troponin I 0.02 NG/ML B-Type Natriuretic Peptide 63 PG/ML [facility] Supervised Visit with TOMASA: Yes Condition: Stable Ryan Jameson MD May 08, 2017 20:34
[2017-05-08] MEDS ORDERED: SULFAMETHOXAZOLE-TRIMETHOPRIM DS 800-160 MG TAB PO ONE (20:45)
[2017-05-08] MEDS ORDERED: BACT800T5 PO ×2 (20:49→22:15)
[2017-05-08] MEDS ORDERED: ACETAMINOPHEN/HYDROcodone 325 MG/5 MG TAB PO ONE (21:15)
--- NOTE | 2017-05-09 18:24 | EKG ---
Date Performed: 05/08/2017 Time Performed: 21:10:02 PTAGE: 61 years EKG: Sinus rhythm INCOMPLETE RIGHT BUNDLE BRANCH BLOCK BORDERLINE ECG PREVIOUS TRACING : 04/10/2017 18.50 Compared to prior tracing no significant change DOCTOR: Mike Ren Interpretating Date/Time 05/09/2017 18:23:03
== END 2017-05-08 22:38 | disposition home or self-care (01) ==
LOC: NEPC 17:17
DX: I89.0 Lymphedema, not elsewhere classified (principal); E87.1 Hypo-osmolality and hyponatremia; L03.116 Cellulitis of left lower limb; L03.115 Cellulitis of right lower limb; R06.02 Shortness of breath; D64.9 Anemia, unspecified; R31.0 Gross hematuria; B95.7 Other staphylococcus as the cause of diseases classified elsewhere; I45.10 Unspecified right bundle-branch block
CPT/HCPCS: 71010; 80053; 81001; 82550; 83735; 83880; 84484; 85025; 85610; 85730; 86403; 87040; 87077; 87186; 87205; 93005; 93970; 96374; 96375; 99285; J1940

== ENCOUNTER 2017-05-14 10:42 | Inpatient (IN) | payer OTHER, MEDICARE ==
[~2017-05-14] VITALS: Ht 175.3 cm; Wt 150.3 kg
[~2017-05-14 10:42] MED LIST changes: -AUGM875T3 PO; -GNP100TA3 PO; -SPIR25TA PO
[2017-05-14 10:57] VITALS: BP 106/57; PULSE 77; RESP 17; O2SAT 100
[2017-05-14 11:01] VITALS: BP 106/57; PULSE 77; RESP 14; TEMP 98.7; O2SAT 100
--- NOTE | 2017-05-14 11:09 | PD ---
HPI Chief Complaint: Respiratory Symptoms Time Seen by Provider: 11:08 Travel History International Travel<30 days: No Contact w/Intl Traveler<30days: No Traveled to known affect area: No History of Present Illness HPI 61-year-old male with PMH of COPD, CHF, A. fib, pulmonary hypertension, renal insufficiency, LE venous stasis, MRSA, ON XARELTO presents to the ED via EMS for evaluation of worsening shortness of breath since last night. Patient states she's been using 2 L nasal cannula oxygen at home. He denies fever, chills, chest pain, palpitations. He endorses single episode of nausea overnight and decreased appetite. He denies vomiting. He endorses bowel movement every few days which she states is his normal. He is currently taking Bactrim for bilateral lower extremity cellulitis. He states his legs "look about the same" even though he's been taking the medication for "about a week." He is followed by [facility] (PCP), Dr. Page (cardiology), Dr. Solis ( pulmonology.) [facility] Past Medical History Hx Anticoagulant Therapy: Yes Asthma: No Atrial Fibrillation: Yes Heart Rhythm Problems: Yes (A-FIB) Cancer: No Cardiac Catheterization: Yes Cardiovascular Problems: Yes High Cholesterol: Yes Chest Pain: Yes Congestive Heart Failure: Yes COPD: Yes (HOME O2 2 L NC) Cerebrovascular Accident: Yes Coronary Artery Disease: Yes Diabetes: No Diminished Hearing: No Endocrine: No Gastrointestinal Disorders: No Genitourinary: Yes Hypertension: Yes Immune Disorder: No Implanted Vascular Access Dvce: No Musculoskeletal: Yes Neurologic: Yes Psychiatric: No Reproductive: No Respiratory: Yes (copd ) Integumentary: Yes (BILATERAL LOWER LEG SWELLING/SKIN ITEGRATY ISSUES cellulitis) Immunizations Current: Yes Migraines: No Seizures: Yes Sleep Apnea: Yes (DOES NOT HAVE CPAP) Thyroid Disease: No Past Surgical History Abdominal Surgery: Yes (apendix) Appendectomy: Yes Cardiac Surgery: Yes (ABLATIONS X 3 (afib)) Genitourinary Surgery: No Neurologic Surgery: No Tonsillectomy: Yes Other Surgery: Yes (ABLATION X 3) Social History Alcohol Use: Yes (RARE) Tobacco Use: No Substance Use: No Allergies-Medications (Allergen,Severity, Reaction): Coded Allergies: *MDRO Multi-Drug Resistant Organism (Verified Adverse Reaction, Unknown, ) MRSA PCR (nares) positive - 01/11/16 & 02/03/17 MRSA (leg)-02/09/17 Reported Meds & Prescriptions Reported Meds & Active Scripts Active Bactrim DS (Sulfamethoxazole-Trimethoprim) 800-160 Mg Tab 1 Tab PO BID Lactobacillus Acidophilus 1 Tab Tab 1 Tab PO TIDAC Ventolin Hfa 18 GM Inh (Albuterol Sulfate) 90 Mcg/Act Aer 1 Puff INH Q4H PRN Atrovent HFA 12.9 GM Inh (Ipratropium [place]) 17 Mcg/Act Aer 2 Puff INH Q6HR PRN Furosemide 40 Mg Tab 40 Mg PO DAILY Symbicort Inh (Budesonide/Formoterol Fumarate) 160-4.5 Mcg/Act Aero 2 Puff INH Q12HR Protonix (Pantoprazole Sodium) 40 Mg Tab 40 Mg PO DAILY Reported Atrovent HFA 12.9 GM Inh (Ipratropium [place]) 17 Mcg/Act Aer 2 Puff INH Q6HR PRN Bumetanide 0.5 Mg Tab 0.5 Mg PO BID Breo Ellipta Inh (Fluticasone/Vilanterol) 100-25 Mcg/Act Inh 1 Puff INH DAILY Use daily at the same time. Atorvastatin (Atorvastatin Calcium) 40 Mg Tab 40 Mg PO HS Metoprolol Tartrate 50 Mg Tab 50 Mg PO BID Xarelto (Rivaroxaban) 20 Mg Tab 20 Mg PO DAILY WITH DINNER Review of Systems Except as stated in HPI: all other systems reviewed are Neg Physical Exam Narrative GENERAL: Well-nourished, well-developed obese white male in no acute distress. SKIN: Focused skin assessment warm/dry. BLE erythematous and edematous. No warmth. HEAD: Normocephalic. EYES: No scleral icterus. No injection or drainage. NECK: Supple, trachea midline. No JVD or lymphadenopathy. CARDIOVASCULAR: Regular rate and rhythm without murmurs, gallops, or rubs. 2+ DP and radial pulses. RESPIRATORY: Breath sounds clear and equal bilaterally. No accessory muscle use. GASTROINTESTINAL: Abdomen protuberant, soft, non-tender, nondistended. Active bowel sounds. MUSCULOSKELETAL: No cyanosis. Patient moves the extremities spontaneously. BACK: Nontender without obvious deformity. No CVA tenderness. Data Data Last Documented VS Vital Signs Date Time Temp Pulse Resp B/P (MAP) Pulse Ox O2 Delivery O2 Flow Rate FiO2 05/14/17 11:31 (73) Room Air 2.00 05/14/17 11:31 100 05/14/17 11:01 98.7 77 14 Orders Orders Complete Blood Count With Diff (05/14/17 11:07) Comprehensive Metabolic Panel (05/14/17 11:07) B-Type Natriuretic Peptide (05/14/17 11:07) Act Partial Throm Time (Ptt) (05/14/17 11:07) Prothrombin Time / Inr (Pt) (05/14/17 11:07) Ckmb (Isoenzyme) Profile (05/14/17 11:07) Troponin I (05/14/17 11:07) Urinalysis - C+S If Indicated (05/14/17 11:07) Iv Access Insert/Monitor (05/14/17 11:07) Electrocardiogram (05/14/17 11:07) Ecg Monitoring (05/14/17 11:07) Oximetry (05/14/17 11:07) Oxygen Administration (05/14/17 11:07) Chest, Single Ap (05/14/17 11:07) Sodium Chloride 0.9% Flush (Ns Flush) (05/14/17 11:15) Methylprednisolone So Succ Inj (Solumedr (05/14/17 11:30) Albuterol-Ipratropium Neb (Duoneb Neb) (05/14/17 11:30) Sodium Chlor 0.9% 1000 Ml Inj (Ns 1000 M (05/14/17 12:15) CKMB (05/14/17 11:20) CKMB% (05/14/17 11:20) Alcohol Withdrawal Asmt-Ciwa ONCE (05/14/17 12:48) Lorazepam (Ativan) (05/14/17 13:00) Lorazepam Inj (Ativan Inj) (05/14/17 13:00) Lorazepam (Ativan) (05/14/17 13:00) Lorazepam Inj (Ativan Inj) (05/14/17 13:00) Lorazepam Inj (Ativan Inj) (05/14/17 13:00) Lorazepam Inj (Ativan Inj) (05/14/17 13:00) Consult Nephrology (05/14/17 ) Admit Order (Ed Use Only) (05/14/17 12:54) Labs Laboratory Tests Test 05/14/17 11:20 White Blood Count 7.6 TH/MM3 Red Blood Count 2.77 MIL/MM3 Hemoglobin 9.1 GM/DL Hematocrit 26.6 % Mean Corpuscular Volume 96.2 FL Mean Corpuscular Hemoglobin 32.8 PG Mean Corpuscular Hemoglobin Concent 34.1 % Red Cell Distribution Width 16.5 % Platelet Count 227 TH/MM3 Mean Platelet Volume 7.0 FL Neutrophils (%) (Auto) 76.0 % Lymphocytes (%) (Auto) 8.5 % Monocytes (%) (Auto) 9.0 % Eosinophils (%) (Auto) 3.3 % Basophils (%) (Auto) 3.2 % Neutrophils # (Auto) 5.8 TH/MM3 Lymphocytes # (Auto) 0.6 TH/MM3 Monocytes # (Auto) 0.7 TH/MM3 Eosinophils # (Auto) 0.3 TH/MM3 Basophils # (Auto) 0.2 TH/MM3 CBC Comment DIFF FINAL Differential Comment Prothrombin Time 17.0 SEC Prothromb Time International Ratio 1.5 RATIO Activated Partial Thromboplast Time 39.4 SEC Blood Urea Nitrogen 64 MG/DL Creatinine 5.21 MG/DL Random Glucose 83 MG/DL Total Protein 7.3 GM/DL Albumin 3.3 GM/DL Calcium Level 8.1 MG/DL Alkaline Phosphatase 157 U/L Aspartate Amino Transf (AST/SGOT) 40 U/L Alanine Aminotransferase (ALT/SGPT) 25 U/L Total Bilirubin 0.8 MG/DL Sodium Level 121 MEQ/L Potassium Level 4.9 MEQ/L Chloride Level 84 MEQ/L Carbon Dioxide Level 17.7 MEQ/L Anion Gap 19 MEQ/L Estimat Glomerular Filtration Rate 11 ML/MIN Total Creatine Kinase 124 U/L Creatine Kinase MB 3.3 NG/ML Troponin I 0.02 NG/ML B-Type Natriuretic Peptide 124 PG/ML MDM Medical Decision Making Medical Screen Exam Complete: Yes Emergency Medical Condition: Yes Differential Diagnosis CHF exacerbation versus COPD exacerbation versus cellulitis versus sepsis versus other Narrative Course 61-year-old male with PMH of COPD, CHF, A. fib, pulmonary HTN, renal insufficiency, LE venous stasis, MRSA, ON XARELTO presents to the ED via EMS for evaluation of worsening SOB since last night. Patient states he's been using 2 L O2 NC at home. He denies fever, chills, chest pain, palpitations. He endorses single episode of nausea overnight and decreased appetite. He is currently taking Bactrim for BLE cellulitis. He states his legs "look about the same" even though he's been taking the medication for "about a week." He is followed by [facility] (PCP), Dr. Page (cardiology), Dr. Solis ( pulmonology.) RR 17, 100% O2 sat on 2L NC on presentation. Physical exam reveals an obese white male in no acute distress. No extra work of breathing. No appreciable M/R/G. Chest CTAB. Abdomen soft and nontender. The BLE are edematous and erythematous without warmth. There is induration in bilateral groins. EKG: Rate 77, sinus rhythm with first-degree AV block. ND interval 210. QRS 122, QTc 450. Normal axis. RBBB. No acute ST changes. Reviewed by Dr. Aguilera. CXR: Cardiomegaly. Clear lungs per radiology read. Cardiac enzymes: negative x 1 CBC: WBC 7.6 Hgb 9.1 Hct 26.6 CMP: NA 121 BUN 64 CR 5.21 (up from 1.6 on 05/08) Ca 8.1 COAGS: INR 1.5 BNP: 124 UA: pending The patient states that he has been making urine "a few times per day." Patient was administered 1L NS bolus. Barrientos catheter inserted to measure I&Os. Consultation placed with nephrology. I spoke with Dr. Canales who agrees to accept the patient to the medicine service. Please see medicine and nephrology notes for disposition. Vikki Lockhart May 14, 2017 11:09
[2017-05-14] MEDS ORDERED: SODIUM CHLORIDE 0.9% FLUSH 10 ML FLUSH IVF PRN (11:15)
[2017-05-14] MEDS ORDERED: methylPREDNISolone SOD SUCC 125 MG/2 ML VIAL IVP ONE (11:30)
[2017-05-14] MEDS: RESP: ALBUTEROL 2.5 MG/IPRATROPIUM 0.5 MG NEB (SCH) INH (11:39)
[2017-05-14 11:44] LABS: AUTOMATED NEUTROPHIL # 5.8 TH/MM3 (1.8-7.7); BASOPHIL # 0.2 TH/MM3 (0-0.2); BASOPHIL % 3.2 % (0.0-2.0); EOSINOPHIL # 0.3 TH/MM3 (0-0.4); EOSINOPHIL % 3.3 % (0.0-4.0); HEMATOCRIT 26.6 % (39.0-51.0); HEMO FLAGS DIFF FINAL; LYMPH % 8.5 % (9.0-44.0); LYMPHOCYTE # 0.6 TH/MM3 (1.0-4.8); MEAN CELL VOLUME 96.2 FL (80.0-100.0); MEAN CORPUSCULAR HEMOGLOBIN 32.8 PG (27.0-34.0); MEAN CORPUSCULAR HGB CONC 34.1 % (32.0-36.0); PLATELET COUNT 227 TH/MM3 (150-450); RED BLOOD COUNT 2.77 MIL/MM3 (4.50-5.90); RED CELL DISTRIBUTION WIDTH 16.5 % (11.6-17.2); WHITE BLOOD COUNT 7.6 TH/MM3 (4.0-11.0)
--- NOTE | 2017-05-14 11:55 | RADRPT ---
EXAM DATE/TIME: 05/14/2017 11:22 [facility] COMPARISON: CHEST SINGLE AP, May 08, 2017, 19:06. INDICATIONS : Short of breath. MEDICAL HISTORY : Chronic obstructive pulmonary disease. Hypercholesterolemia. Myocardial SURGICAL HISTORY : Cardiac cath, 3 ablations ENCOUNTER: Initial ACUITY: 1 day PAIN SCORE: 0/10 LOCATION: Bilateral chest FINDINGS: 2 portable frontal views of the chest show moderate cardiomegaly. No significant pulmonary vascular e ngorgement. No effusions. Lungs are clear. CONCLUSION: Cardiomegaly. Clear lungs. Gonzalez Stewart Jr., MD on May 14, 2017 at 11:51 Board Certified Radiologist. This report was verified electronically.
[2017-05-14 11:56] LABS: APTT (PATIENT) 39.4 SEC (24.3-30.1); INTERNATIONAL NORMALIZED RATIO 1.5 RATIO
[2017-05-14 12:00] LABS: ANION GAP 19 MEQ/L (5-15); AST (GOT) 40 U/L (15-37); BICARBONATE 17.7 MEQ/L (21.0-32.0); BLOOD UREA NITROGEN 64 MG/DL (7-18); CHLORIDE 84 MEQ/L (98-107); GLOMERULAR FILTRATION RATE 11 ML/MIN (>89)
[2017-05-14 12:11] LABS: POTASSIUM 4.9 MEQ/L (3.5-5.1); SODIUM (NA) 121 MEQ/L (136-145)
[2017-05-14] MEDS ORDERED: SODIUM CHLOR 0.9% 1000 ML INJ 1,000 ML IV ONE (12:15)
[2017-05-14 12:17] LABS: ALKALINE PHOSPHATASE 157 U/L (45-117); ALT (GPT) 25 U/L (12-78); CREATINE KINASE 124 U/L (39-308); TOTAL BILIRUBIN ADULT 0.8 MG/DL (0.2-1.0)
[2017-05-14 12:33] LABS: CKMB 3.3 NG/ML (0.5-3.6)
[2017-05-14] MEDS ORDERED: LACTULOSE SYRUP 20 GM/30 ML CUP PO PRN (13:00)
[2017-05-14] MEDS ORDERED: SENNOSIDES 8.6 MG TAB PO PRN (13:00)
[2017-05-14] MEDS ORDERED: SODIUM CHLORIDE 0.9% FLUSH 10 ML FLUSH IV FLUSH PRN (13:00)
[2017-05-14] MEDS ORDERED: LORazepam 2 MG TAB PO PRN (13:00)
[2017-05-14] MEDS ORDERED: ACETAMINOPHEN 325 MG TAB PO PRN (13:00)
[2017-05-14] MEDS ORDERED: NALOXONE HCL 0.4 MG/ML AMP IV PRN (13:00)
[2017-05-14] MEDS ORDERED: SODIUM BICARBONATE 8.4% INJ 50 MEQ in SODIUM CHLOR 0.45% 1000 ML INJ 1,000 ML IV SCH (13:00)
[2017-05-14] MEDS ORDERED: LORazepam 2 MG/ML VIAL IV PUSH PRN ×3 (13:00)
[2017-05-14] MEDS ORDERED: ONDANSETRON HCL 4 MG/2 ML VIAL IVP PRN (13:00)
[2017-05-14] MEDS ORDERED: MAGNESIUM HYDROXIDE SUSP 30 ML CUP PO PRN (13:00)
[2017-05-14] MEDS ORDERED: BISACODYL 10 MG SUPP RECTAL PRN (13:00)
[2017-05-14] MEDS: LORazepam 2 MG/ML VIAL IV PUSH PRN ×2 (13:09→17:53)
[2017-05-14 13:44] LABS: BACTERIA, URINE RARE /hpf; BLOOD, URINE MOD (NEG); GLUCOSE,URINE NEG (NEG); HYALINE CAST, URINE 1 /lpf (RARE); KETONE, URINE NEG (NEG); NITRITE,URINE NEG (NEG); SQUAMOUS EPITHELIAL CELL URINE 2 /hpf (0-5); URINE COLOR YELLOW (YELLW/STRAW)
[2017-05-14 13:45] LABS: COMMENT (UR) CATH-CULTURE IND; CULTURE IF INDICATED CATH CULTURE IND
[2017-05-14 14:20] VITALS: BP 114/51; PULSE 86; RESP 20; TEMP 96.6; O2SAT 100
--- NOTE | 2017-05-14 16:27 | PD.CONS ---
HPI Service Nephrology Consult Requested By Reason for Consult Acute Renal Failure, Hyponatremia Primary Care Physician Unknown History of Present Illness This is a morbidly obese male who came to ER for evaluation of shortness of breath and lower extremity edema. He went to his PCP who gave him Bactrim Rx for lower extremity cellulitis. On arrival he has lab abnormalities of the following: creatinine 5.2, K 4.9, C02 17.1, Na 121. He has a hx of CKD 3 , recently his creatinine was 1.4, GFR 45. He has had hyponatremia in the past. He is not a diabetic. PMH of HTN, obesity, CAD, A fib on Xarelto, CVA, CHF (EF 65% in January of 2017). Today he is shaky, reports to drinking ETOH daily and has not had any since yesterday. We were consulted for renal management. (Tika Hartman) Review of Systems Constitutional: COMPLAINS OF: Fatigue, Weight gain Respiratory: COMPLAINS OF: Shortness of breath, DENIES: Cough, Sputum production Cardiovascular: COMPLAINS OF: Lower Extremity Edema, DENIES: Chest pain ( Tika Hartman) Past Family Social History Allergies: Coded Allergies: No Known Allergies (Unverified , 05/15/17) Past Medical History CKD, baseline creatinine 1.5, GFR 45 (CKD 3) A. fib on Eliquis HTN CAD COPD, O2 Dependent h/o CVA obesity ETOH abuse hyponatremia CHF (Echo 02/03/17 w/ EF 65%) Past Surgical History appendectomy cardiac ablation tonsillectomy Reported Medications Bactrim DS (Sulfamethoxazole-Trimethoprim) 800-160 Mg Tab 1 Tab PO BID Lactobacillus Acidophilus 1 Tab Tab 1 Tab PO TIDAC Ventolin Hfa 18 GM Inh (Albuterol Sulfate) 90 Mcg/Act Aer 1 Puff INH Q4H PRN Atrovent HFA 12.9 GM Inh (Ipratropium [place]) 17 Mcg/Act Aer 2 Puff INH Q6HR PRN Furosemide 40 Mg Tab 40 Mg PO DAILY Symbicort Inh (Budesonide/Formoterol Fumarate) 160-4.5 Mcg/Act Aero 2 Puff INH Q12HR Protonix (Pantoprazole Sodium) 40 Mg Tab 40 Mg PO DAILY Reported Atrovent HFA 12.9 GM Inh (Ipratropium [place]) 17 Mcg/Act Aer 2 Puff INH Q6HR PRN Bumetanide 0.5 Mg Tab 0.5 Mg PO BID Breo Ellipta Inh (Fluticasone/Vilanterol) 100-25 Mcg/Act Inh 1 Puff INH DAILY Use daily at the same time. Atorvastatin (Atorvastatin Calcium) 40 Mg Tab 40 Mg PO HS Metoprolol Tartrate 50 Mg Tab 50 Mg PO BID Xarelto (Rivaroxaban) 20 Mg Tab 20 Mg PO DAILY WITH DINNER Active Ordered Medications Current Medications Medications (Trade) Dose Ordered Sig/Delilah Route Start Time Stop Time Status Last Admin (Ativan) 1 mg Q4H PRN PO 05/14/17 13:00 (Ativan Inj) 1 mg Q4H PRN IV PUSH 05/14/17 13:00 05/14/17 13:09 (Ativan) 2 mg Q2H PRN PO 05/14/17 13:00 (Ativan Inj) 2 mg Q2H PRN IV PUSH 05/14/17 13:00 05/14/17 15:53 (Ativan Inj) 2 mg Q1H PRN IV PUSH 05/14/17 13:00 (Ativan Inj) 2 mg Q15M PRN IV PUSH 05/14/17 13:00 (NS Flush) 2 ml UNSCH PRN IV FLUSH 05/14/17 13:00 (NS Flush) 2 ml BID IV FLUSH 05/14/17 21:00 (Tylenol) 650 mg Q4H PRN PO 05/14/17 13:00 (Zofran Inj) 4 mg Q6H PRN IVP 05/14/17 13:00 (Narcan Inj) 0.4 mg UNSCH PRN IV 05/14/17 13:00 (Coco-Colace) 1 tab BID PO 05/14/17 21:00 (Milk Of Magnesia Liq) 30 ml Q12H PRN PO 05/14/17 13:00 (Senokot) 17.2 mg Q12H PRN PO 05/14/17 13:00 (Dulcolax Supp) 10 mg DAILY PRN RECTAL 05/14/17 13:00 (Lactulose Liq) 30 ml DAILY PRN PO 05/14/17 13:00 Sodium Bicarbonate 50 meq/Sodium Chloride 1,050 ml @ 42 mls/hr Q24H IV 05/14/17 13:00 Family History No hx of renal disorders Social History lives with roommate no smoking hx drinks 3-5 vodka drinks/day, wants to quit uses cane to ambulate full code (Tika Hartman) Physical Exam Vital Signs Vital Signs Date Time Temp Pulse Resp B/P (MAP) Pulse Ox O2 Delivery O2 Flow Rate FiO2 05/14/17 14:26 05/14/17 14:20 96.6 86 20 114/51 (72) 100 05/14/17 11:31 (73) Room Air 2.00 05/14/17 11:31 100 Room Air 2.00 05/14/17 11:01 98.7 77 14 106/57 (73) 100 Room Air 2.00 05/14/17 10:57 77 17 106/57 (73) 100 05/14/17 10:54 78 21 100 Nasal Cannula 2.00 Physical Exam Morbidly obese male he is on oxygen, dyspneic lungs clear, decreased in bases S1/S2, RRR no murmurs abdomen soft, non tender medaows draining clear urine extremities chronic edema, thickened skin some scabs and dried blood Laboratory Laboratory Tests Test 05/14/17 11:20 05/14/17 13:00 White Blood Count 7.6 Red Blood Count 2.77 Hemoglobin 9.1 Hematocrit 26.6 Mean Corpuscular Volume 96.2 Mean Corpuscular Hemoglobin 32.8 Mean Corpuscular Hemoglobin Concent 34.1 Red Cell Distribution Width 16.5 Platelet Count 227 Mean Platelet Volume 7.0 Neutrophils (%) (Auto) 76.0 Lymphocytes (%) (Auto) 8.5 Monocytes (%) (Auto) 9.0 Eosinophils (%) (Auto) 3.3 Basophils (%) (Auto) 3.2 Neutrophils # (Auto) 5.8 Lymphocytes # (Auto) 0.6 Monocytes # (Auto) 0.7 Eosinophils # (Auto) 0.3 Basophils # (Auto) 0.2 CBC Comment DIFF FINAL Differential Comment Prothrombin Time 17.0 Prothromb Time International Ratio 1.5 Activated Partial Thromboplast Time 39.4 Blood Urea Nitrogen 64 Creatinine 5.21 Random Glucose 83 Total Protein 7.3 Albumin 3.3 Calcium Level 8.1 Alkaline Phosphatase 157 Aspartate Amino Transf (AST/SGOT) 40 Alanine Aminotransferase (ALT/SGPT) 25 Total Bilirubin 0.8 Sodium Level 121 Potassium Level 4.9 Chloride Level 84 Carbon Dioxide Level 17.7 Anion Gap 19 Estimat Glomerular Filtration Rate 11 Total Creatine Kinase 124 Creatine Kinase MB 3.3 Troponin I 0.02 B-Type Natriuretic Peptide 124 Urine Color YELLOW Urine Turbidity CLEAR Urine pH 5.0 Urine Specific [place] 1.012 Urine Protein NEG Urine Glucose (UA) NEG Urine Ketones NEG Urine Occult Blood MOD Urine Nitrite NEG Urine Bilirubin NEG Urine Urobilinogen LESS THAN 2.0 Urine Leukocyte Esterase NEG Urine RBC 1 Urine WBC 1 Urine Squamous Epithelial Cells 2 Urine Bacteria RARE Urine Hyaline Casts 1 Microscopic Urinalysis Comment CATH-CULTURE IND Date/Time Source Procedure Growth Status 05/14/17 13:00 Urine Catheterized Urine Urine Culture Pending Received (Tika Hartman) Result Diagram: 05/14/17 1120 05/14/17 1120 Imaging Last 72 hours Impressions Chest X-Ray 05/14/17 1107 Signed Impressions: Service Date/Time: , May 14, 2017 11:22 - CONCLUSION: Cardiomegaly. Clear lungs. Gonzalez Stewart Jr., MD (Tika Hartman) Assessment and Plan Problem List: (1) Hyponatremia ICD Codes: E87.1 - Hypo-osmolality and hyponatremia Status: Resolved Plan: obtain urine osmolality and uric acid may be low solute hyponatremia or dehydration start IVF and monitor response (2) Acute renal failure ICD Codes: N17.9 - Acute kidney failure, unspecified Status: Acute Plan: He has baseline CKD 3; Creatinine 1.4, GFR 45 CORIN may be due to dehydration; he was also given Bactrim (trimethoprim in Bactrim) prevents distal tubule creatinine secretion, causing increased serum levels of both his K is 4.9, but he has metabolic acidosis at this time continue IVF, changed to 1/2 NS with 75 mEq at 50 cc/hr monitor renal function avoid nephrotoxins, Xarelto should be temporarily held in renal failure hold diuretics monitor urine output (Tika Hartman) Assessment and Plan patient was seen and examined. CORIN could be due to overdiuresis, was taking two different loop diuretics. Also has history of EOH abuse. Hyponatremia either due to hypovolemic hyponatremia or low solute hyponatremia. Continue IVF with bicarbonate. (Jian Matute MD) Tika Hartman [facility] May 14, 2017 16:27 Jian Matute MD May 15, 2017 14:58
[2017-05-14 17:15] VITALS: BP 110/54; PULSE 92; RESP 22; TEMP 96.6; O2SAT 100
--- NOTE | 2017-05-14 17:57 | EKG ---
Date Performed: 05/14/2017 Time Performed: 10:55:45 PTAGE: 61 years EKG: Sinus rhythm WITH FIRST DEGREE AV BLOCK RIGHT BUNDLE BRANCH BLOCK ABNORMAL ECG INTERPRETATION BASED ON A DEFAULT AGE OF 40 YEARS Compared to prior tracing no significant change PREVIOUS TRACING : 05/08/2017 21.10 DOCTOR: Car Orozco Interpretating Date/Time 05/14/2017 17:56:06
--- NOTE | 2017-05-14 18:28 | HHI.HP ---
HPI [facility] Primary Care Physician Unknown Admission Diagnosis severe hyponatremia, CORIN on chronic renal insufficiency Diagnoses: Chief Complaint: SOB Travel History International Travel<30 Days: No Contact w/Intl Traveler <30 Da: No Traveled to Known Affected Are: No History of Present Illness This is a 61 yo male with pmh of HTN, Hyperlipidemia, Atrial fibrillation, renal insufficiency, prostate cancer sp radiation and chemotherapy, 02 dependent COPD, CAD who had been recently hospitalized and discharged recently to home after being treated for severe hyponatremia and Bilateral lower extremity cellulitis. As per discharge documentation, the patient was discharged on Bactrim and Augmentin. The patient presents c/o worsening sob associated with nausea despite being on his home oxygen. The patient denies chest pain, fevers, chills, abdominal pain, dysura, dizziness, melena, hematochezia but states has noted red discoloration of the urine as well as this being very concentrated. Denies difficulty urinating. Review of Systems As per history of present illness, other systems reviewed by me and negative Past Family Social History Past Medical History 1. 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 Hypertension. Next a 3. CAD. 4. Oxygen dependent COPD. 5. History of CVA. 6. CHF (echo on 02/03/17 with EF of 65%). 7. Hyponatremia. 8. Cellulitis bilateral lower extremities. 9. Renal insufficiency. 10. Atrial fibrillation. Past Surgical History 1. Appendectomy. 2. Cardiac ablation. 3. Tonsillectomy. Reported Medications Reported Meds & Active Scripts Active Bactrim DS (Sulfamethoxazole-Trimethoprim) 800-160 Mg Tab 1 Tab PO BID Lactobacillus Acidophilus 1 Tab Tab 1 Tab PO TIDAC Ventolin Hfa 18 GM Inh (Albuterol Sulfate) 90 Mcg/Act Aer 1 Puff INH Q4H PRN Atrovent HFA 12.9 GM Inh (Ipratropium Holiday) 17 Mcg/Act Aer 2 Puff INH Q6HR PRN Furosemide 40 Mg Tab 40 Mg PO DAILY Symbicort Inh (Budesonide/Formoterol Fumarate) 160-4.5 Mcg/Act Aero 2 Puff INH Q12HR Protonix (Pantoprazole Sodium) 40 Mg Tab 40 Mg PO DAILY Reported Atrovent HFA 12.9 GM Inh (Ipratropium Holiday) 17 Mcg/Act Aer 2 Puff INH Q6HR PRN Bumetanide 0.5 Mg Tab 0.5 Mg PO BID Breo Ellipta Inh (Fluticasone/Vilanterol) 100-25 Mcg/Act Inh 1 Puff INH DAILY Use daily at the same time. Atorvastatin (Atorvastatin Calcium) 40 Mg Tab 40 Mg PO HS Metoprolol Tartrate 50 Mg Tab 50 Mg PO BID Xarelto (Rivaroxaban) 20 Mg Tab 20 Mg PO DAILY WITH DINNER Allergies: Coded Allergies: No Known Allergies (Unverified , 05/15/17) Active Ordered Medications Current Medications Medications (Trade) Dose Ordered Sig/Delilah Route Start Time Stop Time Status Last Admin (Ativan) 1 mg Q4H PRN PO 05/14/17 13:00 (Ativan Inj) 1 mg Q4H PRN IV PUSH 05/14/17 13:00 05/14/17 17:53 (Ativan) 2 mg Q2H PRN PO 05/14/17 13:00 (Ativan Inj) 2 mg Q2H PRN IV PUSH 05/14/17 13:00 05/14/17 15:53 (Ativan Inj) 2 mg Q1H PRN IV PUSH 05/14/17 13:00 (Ativan Inj) 2 mg Q15M PRN IV PUSH 05/14/17 13:00 (NS Flush) 2 ml UNSCH PRN IV FLUSH 05/14/17 13:00 (NS Flush) 2 ml BID IV FLUSH 05/14/17 21:00 (Tylenol) 650 mg Q4H PRN PO 05/14/17 13:00 (Zofran Inj) 4 mg Q6H PRN IVP 05/14/17 13:00 (Narcan Inj) 0.4 mg UNSCH PRN IV 05/14/17 13:00 (Coco-Colace) 1 tab BID PO 05/14/17 21:00 (Milk Of Magnesia Liq) 30 ml Q12H PRN PO 05/14/17 13:00 (Senokot) 17.2 mg Q12H PRN PO 05/14/17 13:00 (Dulcolax Supp) 10 mg DAILY PRN RECTAL 05/14/17 13:00 (Lactulose Liq) 30 ml DAILY PRN PO 05/14/17 13:00 Sodium Bicarbonate 75 meq/Sodium Chloride 1,075 ml @ 50 mls/hr [id number] IV 05/15/17 13:00 Social History Positive for alcohol. Negative for tobacco and drugs. Physical Exam Vital Signs Vital Signs Date Time Temp Pulse Resp B/P (MAP) Pulse Ox O2 Delivery O2 Flow Rate FiO2 05/14/17 17:15 96.6 92 22 110/54 (72) 100 05/14/17 14:26 05/14/17 14:20 96.6 86 20 114/51 (72) 100 05/14/17 11:31 (73) Room Air 2.00 05/14/17 11:31 100 Room Air 2.00 05/14/17 11:01 98.7 77 14 106/57 (73) 100 Room Air 2.00 05/14/17 10:57 77 17 106/57 (73) 100 05/14/17 10:54 78 21 100 Nasal Cannula 2.00 Physical Exam GENERAL: This is a well-nourished, well-developed patient, in no apparent distress. SKIN: No rashes, ecchymoses or lesions. Cool and dry. HEAD: Atraumatic. Normocephalic. No temporal or scalp tenderness. EYES: Pupils equal round and reactive. Extraocular motions intact. No scleral icterus. No injection or drainage. ENT: Nose without bleeding, purulent drainage or septal hematoma. Throat without erythema, tonsillar hypertrophy or exudate. Uvula midline. Airway patent. NECK: Trachea midline. No JVD or lymphadenopathy. Supple, nontender, no meningeal signs. CARDIOVASCULAR: Regular rate and rhythm without murmurs, gallops, or rubs. RESPIRATORY: Clear to auscultation. Breath sounds equal bilaterally. No wheezes , rales, or rhonchi. GASTROINTESTINAL: Abdomen soft, non-tender, nondistended. No hepato-splenomegaly , or palpable masses. No guarding. MUSCULOSKELETAL: Extremities without clubbing, cyanosis, or edema. No joint tenderness, effusion, or edema noted. No calf tenderness. Negative Homans sign bilaterally. NEUROLOGICAL: Awake and alert. Cranial nerves II through XII intact. Motor and sensory grossly within normal limits. Five out of 5 muscle strength in all muscle groups. Normal speech. Laboratory Laboratory Tests Test 05/14/17 11:20 05/14/17 13:00 White Blood Count 7.6 Red Blood Count 2.77 Hemoglobin 9.1 Hematocrit 26.6 Mean Corpuscular Volume 96.2 Mean Corpuscular Hemoglobin 32.8 Mean Corpuscular Hemoglobin Concent 34.1 Red Cell Distribution Width 16.5 Platelet Count 227 Mean Platelet Volume 7.0 Neutrophils (%) (Auto) 76.0 Lymphocytes (%) (Auto) 8.5 Monocytes (%) (Auto) 9.0 Eosinophils (%) (Auto) 3.3 Basophils (%) (Auto) 3.2 Neutrophils # (Auto) 5.8 Lymphocytes # (Auto) 0.6 Monocytes # (Auto) 0.7 Eosinophils # (Auto) 0.3 Basophils # (Auto) 0.2 CBC Comment DIFF FINAL Differential Comment Prothrombin Time 17.0 Prothromb Time International Ratio 1.5 Activated Partial Thromboplast Time 39.4 Blood Urea Nitrogen 64 Creatinine 5.21 Random Glucose 83 Total Protein 7.3 Albumin 3.3 Calcium Level 8.1 Alkaline Phosphatase 157 Aspartate Amino Transf (AST/SGOT) 40 Alanine Aminotransferase (ALT/SGPT) 25 Total Bilirubin 0.8 Sodium Level 121 Potassium Level 4.9 Chloride Level 84 Carbon Dioxide Level 17.7 Anion Gap 19 Estimat Glomerular Filtration Rate 11 Total Creatine Kinase 124 Creatine Kinase MB 3.3 Troponin I 0.02 B-Type Natriuretic Peptide 124 Urine Color YELLOW Urine Turbidity CLEAR Urine pH 5.0 Urine Specific [place] 1.012 Urine Protein NEG Urine Glucose (UA) NEG Urine Ketones NEG Urine Occult Blood MOD Urine Nitrite NEG Urine Bilirubin NEG Urine Urobilinogen LESS THAN 2.0 Urine Leukocyte Esterase NEG Urine RBC 1 Urine WBC 1 Urine Squamous Epithelial Cells 2 Urine Bacteria RARE Urine Hyaline Casts 1 Microscopic Urinalysis Comment CATH-CULTURE IND Date/Time Source Procedure Growth Status 05/14/17 13:00 Urine Catheterized Urine Urine Culture Pending Received Result Diagram: 05/14/17 1120 05/14/17 1120 Imaging Last Impressions Chest X-Ray 05/14/17 1107 Signed Impressions: Service Date/Time: April 11:22 - CONCLUSION: Cardiomegaly. Clear lungs. Gonzalez Stewart Jr., MD Reviewed by me. Caprini VTE Risk Assessment Caprini VTE Risk Assessment: Mod/High Risk (score >= 2) VTE Pharm Contraindication: Coagulopathy,INR elevated Caprini Risk Assessment Model Point Value = 1 Point Value = 2 Point Value = 3 Point Value = 5 Age 41-60 Minor surgery BMI > 25 kg/m2 Swollen legs Varicose veins or History of unexplained or recurrent spontaneous Oral contraceptives or hormone replacement Sepsis (< 1 month) Serious lung disease, including pneumonia (< 1 month) Abnormal pulmonary function Acute myocardial infarction Congestive heart failure (< 1 month) History of inflammatory bowel disease Medical patient at bed rest Age 61-74 Arthroscopic surgery Major open surgery (> 45 min) Laparoscopic surgery (> 45 min) Malignancy Confined to bed (> 72 hours) Immobilizing plaster cast Central venous access Age >= 75 History of VTE Family history of VTE Factor V Leiden Prothrombin [id number] Lupus anticoagulant Anticardiolipin antibodies Elevated serum homocysteine Heparin-induced thrombocytopenia Other congenital or acquired thrombophilia Stroke (< 1 month) Elective arthroplasty Hip, pelvis, or leg fracture Acute spinal cord injury (< 1 month) Prophylaxis Regimen Total Risk Factor Score Risk Level Prophylaxis Regimen 0-1 Low Early ambulation 2 Moderate Order ONE of the following: *Sequential Compression Device (SCD) *Heparin 5000 units SQ BID 3-4 Higher Order ONE of the following medications: *Heparin 5000 units SQ TID *Enoxaparin/Lovenox 40 mg SQ daily (WT < 150 kg, CrCl > 30 mL/min) *Enoxaparin/Lovenox 30 mg SQ daily (WT < 150 kg, CrCl > 10-29 mL/min) *Enoxaparin/Lovenox 30 mg SQ BID (WT < 150 kg, CrCl > 30 mL/min) AND/OR *Sequential Compression Device (SCD) 5 or more Highest Order ONE of the following medications: *Heparin 5000 units SQ TID (Preferred with Epidurals) *Enoxaparin/Lovenox 40 mg SQ daily (WT < 150 kg, CrCl > 30 mL/min) *Enoxaparin/Lovenox 30 mg SQ daily (WT < 150 kg, CrCl > 10-29 mL/min) *Enoxaparin/Lovenox 30 mg SQ BID (WT < 150 kg, CrCl > 30 mL/min) AND *Sequential Compression Device (SCD) Assessment and Plan Problem List: (1) Acute renal failure ICD Code: N17.9 - Acute kidney failure, unspecified Status: Acute (2) Hyponatremia ICD Code: E87.1 - Hypo-osmolality and hyponatremia Status: Resolved (3) Metabolic acidosis ICD Code: E87.2 - Acidosis Status: Resolved (4) COPD (chronic obstructive pulmonary disease) ICD Code: J44.9 - Chronic obstructive pulmonary disease, unspecified Status: Chronic (5) CHF (congestive heart failure) ICD Code: I50.9 - Heart failure, unspecified Status: Chronic (6) A-fib ICD Code: I48.91 - Unspecified atrial fibrillation Status: Chronic Assessment and Plan Admit the patient to the medical floor CXR did not sgow infiltrates or volume overload Start on 09/15 ns + sodium bicarbonate to treat CORIN and metabolic acidosis mpnitor urine output consult nephrology renal diet Continue xarelto Will check VQ scan to r/o PE since patient recently treated for BL lower extremity cellulitis insert meadows catheter monitor BMP and sodium that could be related to overdiuresis and dehydration. Ua showed blood and bacteria - culture pending EKG reviewed by sabino sauceda - will resume beta devin for rate control Hold Xarelto due to hematuria and decreased GFR. Code Status full code Discussed Condition With ED physician, RN and patient Physician Certification 2 Midnight Certification Type: Admission for Inpatient Services Order for Inpatient Services The services are ordered in accordance with Medicare regulations or non- Medicare payer requirements, as applicable. In the case of services not specified as inpatient-only, they are appropriately provided as inpatient services in accordance with the 2-midnight benchmark. Estimated LOS (days): 3 days is the estimated time the patient will need to remain in the hospital, assuming treatment plan goals are met and no additional complications. Post-Hospital Plan: Not yet determined Problem Qualifiers (1) COPD (chronic obstructive pulmonary disease): Qualified Codes: J44.9 - Chronic obstructive pulmonary disease, unspecified (2) CHF (congestive heart failure): Qualified Codes: I50.32 - Chronic diastolic (congestive) heart failure (3) A-fib: Qualified Codes: I48.0 - Paroxysmal atrial fibrillation Doug Dowell MD May 14, 2017 18:28
[2017-05-14] MEDS ORDERED: IPRATROPIUM BROMIDE 17 MCG/ACT 12.9 GM INHALER INH PRN (19:00)
[2017-05-14 20:00] VITALS: BP 94/59; PULSE 93; RESP 22; TEMP 99; O2SAT 98
[2017-05-14] MEDS: SODIUM CHLORIDE 0.9% FLUSH 10 ML FLUSH IV FLUSH SCH ×2 (20:04→20:59)
[2017-05-14] MEDS: DOCUSATE SODIUM 50 MG/SENNA 8.6 MG TAB PO SCH (20:59)
[2017-05-14 21:00] VITALS: PULSE 95
[2017-05-14] MEDS ORDERED: RESP: IPRATROPIUM 0.5 MG/2.5 ML NEB NEB PRN (21:45)
--- NOTE | 2017-05-14 22:36 | RADRPT ---
EXAM DATE/TIME: 05/14/2017 21:33 [facility] COMPARISON: CHEST SINGLE AP, September 04, 2016, 11:29. LUNG VENTILATION & PERFUSION SCAN, January 12, 2016, 13:56. INDICATIONS : Shortness of breath for 1 day. DOSE: 8.1 mCi Tc99m MAA IV 2.1 mCi Tc99m DTPA aerosol MEDICAL HISTORY : Hyperparathyroidism. Cardiovascular disease Renal failure, chronic. SURGICAL HISTORY : Right ankle. ENCOUNTER: Initial ACUITY: 1 day PAIN SCALE: 1/10 LOCATION: Bilateral chest TECHNIQUE: Following five minutes of tidal breathing of DTPA aerosol, planar images of the lungs were performed in eight projections. The patient was then injected with MAA, and eight-view perfusion scan was perf ormed. FINDINGS: There is a homogeneous pattern of aerosol delivery to the periphery of both lungs. No focal ventilat ory defects are seen. The ventilation portion of the study appears more heterogeneous. The perfusion lung scan demonstrates a homogenous pattern of uptake in both lungs. No segmental or s ubsegmental defects are seen. CONCLUSION: Low probability for pulmonary embolus. No significant perfusion defects are seen. Renny Pace MD on May 14, 2017 at 22:32 Board Certified Radiologist. This report was verified electronically.
[2017-05-14] MEDS ORDERED: SODIUM BICARBONATE 8.4% INJ 75 MEQ in SODIUM CHLOR 0.45% 1000 ML INJ 1,000 ML IV SCH (23:00)
--- NOTE | 2017-05-14 23:33 | RADRPT ---
EXAM DATE/TIME: 05/14/2017 22:16 [facility] COMPARISON: US LEG BILATERAL VENOUS DOPPLER, May 08, 2017, 19:35. INDICATIONS : Bilateral leg swelling. MEDICAL HISTORY : Chronic obstructive pulmonary disease. Stroke. Myocardial infarction. Congestive heart failure. Sei zures. Numbness. Anticoagulant therapy. Hypercholestrolemia. Chest pain. Atrial fibrillation. Hyperte nsion. Dyspnea. SURGICAL HISTORY : Tonsillectomy.Appendectomy. Cardiac catheterization. Circumcision. Right ankle surgery. ENCOUNTER: Sequela ACUITY: >1 year PAIN SCORE: 4/10 LOCATION: Bilateral legs. TECHNIQUE: Venous ultrasound of the left and right leg was performed from the inguinal ligament to the proximal calf. Real-time, color Doppler and spectral tracing, compression and augmentation techniques were us ed. FINDINGS: Examination quality less than optimal secondary to body habitus. RIGHT LEG: There is normal compressibility of the deep venous system from the inguinal region to the proximal ca lf. No echogenic clot is seen in the lumen of the common femoral, femoral, popliteal, and posterior tibial veins. There is a normal response of the venous system to proximal and distal augmentation an d respiration. LEFT LEG: There is normal compressibility of the deep venous system from the inguinal region to the proximal ca lf. No echogenic clot is seen in the lumen of the common femoral, femoral, popliteal, and posterior tibial veins. There is a normal response of the venous system to proximal and distal augmentation an d respiration. CONCLUSION: No DVT is identified within either lower extremity. Renny Blackman MD on May 14, 2017 at 23:31 Board Certified Radiologist. This report was verified electronically.
[2017-05-15] VITALS (9 sets, daily range): BP systolic 103–124; BP diastolic 51–60; PULSE 91–101; RESP 20–22; TEMP 96.2–98; O2SAT 97–100
[2017-05-15 08:07] LABS: BLOOD UREA NITROGEN 75 MG/DL (7-18); GLOMERULAR FILTRATION RATE 12 ML/MIN (>89)
[2017-05-15 08:08] LABS: ALT (GPT) 23 U/L (12-78); ANION GAP 11 MEQ/L (5-15); AST (GOT) 21 U/L (15-37); BICARBONATE 23.9 MEQ/L (21.0-32.0); CHLORIDE 87 MEQ/L (98-107); URIC ACID 14.6 MG/DL (2.6-7.2)
[2017-05-15 08:11] LABS: ALKALINE PHOSPHATASE 133 U/L (45-117); TOTAL BILIRUBIN ADULT 0.6 MG/DL (0.2-1.0)
[2017-05-15 08:13] LABS: SODIUM (NA) 122 MEQ/L (136-145)
[2017-05-15 08:20] LABS: AUTOMATED NEUTROPHIL # 5.5 TH/MM3 (1.8-7.7); BASOPHIL % 0.2 % (0.0-2.0); HEMATOCRIT 24.4 % (39.0-51.0); HEMO FLAGS DIFF FINAL; LYMPH % 4.7 % (9.0-44.0); LYMPHOCYTE # 0.3 TH/MM3 (1.0-4.8); MEAN CELL VOLUME 96.5 FL (80.0-100.0); MEAN CORPUSCULAR HEMOGLOBIN 31.8 PG (27.0-34.0); MONO % 2.7 % (0.0-8.0); NEUT % 92.4 % (16.0-70.0); PLATELET COUNT 173 TH/MM3 (150-450); RED BLOOD COUNT 2.53 MIL/MM3 (4.50-5.90); RED CELL DISTRIBUTION WIDTH 16.5 % (11.6-17.2)
[2017-05-15] MEDS: FLUTICASONE 100 MCG/VILANTEROL 25 MCG INHALER INH SCH ×2 (09:12)
[2017-05-15] MEDS: DOCUSATE SODIUM 50 MG/SENNA 8.6 MG TAB PO SCH ×2 (09:12→19:34)
[2017-05-15] MEDS: PANTOPRAZOLE SOD 40 MG DELAYED RELEASE TAB PO SCH (09:12)
[2017-05-15] MEDS: BUDESONIDE-FORMOTEROL 160/4.5 MCG INHALER INH SCH ×3 (09:13→19:31)
--- NOTE | 2017-05-15 10:41 | HHI.NPPN ---
Subjective Renal Failure: Acute Interval History Sitting up in a chair. Renal function improving. (Tiak Hartman) Review of Systems General Constitutional: Fatigue (Tika Hartman) Respiratory Lungs: SOB (Tika Hartman) Cardiovascular Cardiac: Edema (Tika Hartman) Objective Data Data Vital Signs Date Time Temp Pulse Resp B/P (MAP) Pulse Ox O2 Delivery O2 Flow Rate FiO2 05/15/17 08:00 97.4 96 20 124/57 (79) 100 05/15/17 04:00 98.0 94 22 110/51 (70) 97 05/15/17 00:00 97.7 91 22 103/59 (74) 99 05/14/17 21:00 95 05/14/17 20:00 99.0 93 22 94/59 (71) 98 05/14/17 17:15 96.6 92 22 110/54 (72) 100 05/14/17 14:26 05/14/17 14:20 96.6 86 20 114/51 (72) 100 05/14/17 11:31 (73) Room Air 2.00 05/14/17 11:31 100 Room Air 2.00 05/14/17 11:01 98.7 77 14 106/57 (73) 100 Room Air 2.00 05/14/17 10:57 77 17 106/57 (73) 100 05/14/17 10:54 78 21 100 Nasal Cannula 2.00 (Tika Hartman) -: 05/15/17 0626 05/15/17 0626 Microbiology 05/14/17 Urine Culture, Received Pending Imaging Last 72 hours Impressions Chest X-Ray 05/14/17 1107 Signed Impressions: Service Date/Time: April 11:22 - CONCLUSION: Cardiomegaly. Clear lungs. Gonzalez Stewart Jr., MD Lung Scan-V Nuclear Medicine 05/14/17 0000 Signed Impressions: Service Date/Time: April 21:33 - CONCLUSION: Low probability for pulmonary embolus. No significant perfusion defects are seen. Renny Pace MD Lower Extremity Ultrasound 05/14/17 0000 Signed Impressions: Service Date/Time: April 22:16 - CONCLUSION: No DVT is identified within either lower extremity. Renny Blackman MD Tubes & Lines: [place] (Tika Hartman) Physical Exam General Appearance: Well Developed, Comfortable, Obese (Tika Hartman) Throat Throat Exam: Oral Mucosa [place] & Moist (Tika Hartman) Pulmonary Resp Exam: Clear Bilaterally, Breath Sounds Equal (Tika Hartman) Cardiology CV Exam: Regular, Normal Sinus Rhythm (Tika Hartman) Gastrointestinal/Abdomen GI Exam: Soft, Non-Tender, Positive Bowel Movement (Tika Hartman) Genitourinary Exam: Sediment (Tika Hartman) Musculoskeletal MS Exam: Normal Gait, Normal Tone, Good Strength (Tika Hartman) Integumentary Skin Exam: Warm, Dry Skin Remarks chronic skin changes; chronic edema (Tika Hartman) Extremeties Extremities Exam: Pedal Pulses Palpable, Moderate Edema (Tika Hartman) Neurologic Neuro Exam: Alert, Awake, Oriented, Speech Clear, Moving All Extremities (Tika Hartman) Psychiatric Psych Exam: Appropriate Responses (Tika Hartman) Assessment/Plan Discussed Condition With: Patient Assessment Summary: CORIN/Acute Renal Failure, Hypertension, CKD Stage III Electrolyte Assessment: Hyponatremia Problem List: (1) Acute renal failure ICD Codes: N17.9 - Acute kidney failure, unspecified Status: Acute Plan: He has baseline CKD 3; Creatinine 1.4, GFR 45 CORIN may be due to dehydration and NSAID use at home; he was also given Bactrim ( trimethoprim in Bactrim) prevents distal tubule creatinine secretion, causing increased serum levels of both acidosis is correcting renal funcition is improving change IVF to 0.9% NS and monitor response avoid nephrotoxins, Xarelto should be temporarily held in renal failure hold diuretics monitor urine output (2) Hyponatremia ICD Codes: E87.1 - Hypo-osmolality and hyponatremia Status: Resolved Plan: urine osmolality, sodium, and uric acid suggesting hypovolemic hyponatremia change IVF to 0.9% and follow labs (Tika Hartman) Plan patient was seen and examined. Slow improvement in renal function and hyponatremia. High serum uric acid and low urine Na suggest intravascular volume depletion. Continue IVF. (Jian Matute MD) Tika Hartman May 15, 2017 10:41 Jian Matute MD May 15, 2017 15:11
--- NOTE | 2017-05-15 12:18 | HHI.PR ---
Subjective Remarks Patient states that he feels much better sob is much improved denies fevers and chills good urine output Objective Vitals Vital Signs Date Time Temp Pulse Resp B/P (MAP) Pulse Ox O2 Delivery O2 Flow Rate FiO2 05/15/17 10:30 99 Nasal Cannula 2.00 05/15/17 08:00 97.4 96 20 124/57 (79) 100 05/15/17 04:00 98.0 94 22 110/51 (70) 97 05/15/17 00:00 97.7 91 22 103/59 (74) 99 05/14/17 21:00 95 05/14/17 20:00 99.0 93 22 94/59 (71) 98 05/14/17 17:15 96.6 92 22 110/54 (72) 100 05/14/17 14:26 05/14/17 14:20 96.6 86 20 114/51 (72) 100 I/O 05/14/17 05/14/17 05/14/17 05/15/17 05/15/17 05/15/17 07:00 15:00 23:00 07:00 15:00 23:00 Intake Total 1000 ml 429 ml Output Total 800 ml 800 ml 700 ml Balance 200 ml -800 ml -271 ml Intake Oral 120 ml IV Total 1000 ml 309 ml Output Urine Total 800 ml 800 ml 700 ml # Bowel Movements 0 Result Diagram: 05/15/17 0626 05/15/17 0626 Imaging Last Impressions Chest X-Ray 05/14/17 1107 Signed Impressions: Service Date/Time: April 11:22 - CONCLUSION: Cardiomegaly. Clear lungs. Gonzalez Stewart Jr., MD Lung Scan-V Nuclear Medicine 05/14/17 0000 Signed Impressions: Service Date/Time: April 21:33 - CONCLUSION: Low probability for pulmonary embolus. No significant perfusion defects are seen. Renny Pace MD Lower Extremity Ultrasound 05/14/17 0000 Signed Impressions: Service Date/Time: April 22:16 - CONCLUSION: No DVT is identified within either lower extremity. Renny Balckman MD Objective Remarks AAOx3, sitting in chair, nad Lungs clear to auscultation BL Abdomen obese, soft, NT. Barrientos catheter in place w yellow urine. no edema in lower extremities Procedures none Medications and IVs Current Medications Medications (Trade) Dose Ordered Sig/Delilah Route Start Time Stop Time Status Last Admin (Ativan) 1 mg Q4H PRN PO 05/14/17 13:00 (Ativan Inj) 1 mg Q4H PRN IV PUSH 05/14/17 13:00 05/14/17 17:53 (Ativan) 2 mg Q2H PRN PO 05/14/17 13:00 (Ativan Inj) 2 mg Q2H PRN IV PUSH 05/14/17 13:00 05/14/17 15:53 (Ativan Inj) 2 mg Q1H PRN IV PUSH 05/14/17 13:00 (Ativan Inj) 2 mg Q15M PRN IV PUSH 05/14/17 13:00 (NS Flush) 2 ml UNSCH PRN IV FLUSH 05/14/17 13:00 (NS Flush) 2 ml BID IV FLUSH 05/14/17 21:00 (Tylenol) 650 mg Q4H PRN PO 05/14/17 13:00 (Zofran Inj) 4 mg Q6H PRN IVP 05/14/17 13:00 (Narcan Inj) 0.4 mg UNSCH PRN IV 05/14/17 13:00 (Coco-Colace) 1 tab BID PO 05/14/17 21:00 05/15/17 09:12 (Milk Of Magnesia Liq) 30 ml Q12H PRN PO 05/14/17 13:00 (Senokot) 17.2 mg Q12H PRN PO 05/14/17 13:00 (Dulcolax Supp) 10 mg DAILY PRN RECTAL 05/14/17 13:00 (Lactulose Liq) 30 ml DAILY PRN PO 05/14/17 13:00 (Lipitor) 40 mg HS PO 05/14/17 22:00 05/15/17 00:00 (Symbicort 160-4.5 Inh) 2 puff Q12HR INH 05/14/17 22:00 05/15/17 09:13 (Breo Ellipta 100-25 Inh) 1 puff DAILY INH 05/14/17 22:00 05/15/17 09:12 (Protonix) 40 mg DAILY PO 05/15/17 09:00 05/15/17 09:12 (Xarelto) 20 mg AC DINNER PO 05/15/17 16:00 Future Hold (Atrovent Neb) 0.5 mg Q6HR NEB PRN NEB 05/14/17 21:45 Sodium Chloride 1,000 ml @ 75 mls/hr [id number] IV 05/15/17 10:45 A/P Problem List: (1) Acute renal failure ICD Code: N17.9 - Acute kidney failure, unspecified Status: Acute Plan: Acute kidney injury on chronic kidney disease stage III. Baseline creatinine is around 1.6-1.7. Acute kidney injury possible combination of over diureses with possible Bactrim use. Creatinine on admission 5.21 Treated with half-normal saline with sodium bicarbonate due to ongoing metabolic acidosis. Metabolic acidosis has resolved and creatinine is trending down. Creatinine 4.81 today. Continue to monitor BMP, strict I's and O's, avoid nephrotoxins. Nephrology consulted and following patient. Appreciate recommendations. Agree with discontinuation of half-normal saline today and initiating patient on normal saline. (2) Hyponatremia ICD Code: E87.1 - Hypo-osmolality and hyponatremia Status: Resolved Plan: Sodium was slightly improved. Likely secondary to over diuresis and dehydration and hypovolemia. Continue IV normal saline and continue to monitor BMP. (3) Metabolic acidosis ICD Code: E87.2 - Acidosis Status: Resolved Plan: And about acidosis likely secondary to acute renal failure, treated with half-normal saline with bicarbonate. Metabolic acidosis now resolved. DC half-normal saline with bicarbonate and start IV normal saline. (4) COPD (chronic obstructive pulmonary disease) ICD Code: J44.9 - Chronic obstructive pulmonary disease, unspecified Status: Chronic Plan: Patient is oxygen dependent at home. Currently on 2 L cannula which is the patient's baseline. There is no evidence of acute exacerbation. Continue Symbicort, Breo Ellipta and Atrovent nebulizer treatments. (5) CHF (congestive heart failure) ICD Code: I50.9 - Heart failure, unspecified Status: Chronic Plan: SEems stable. CXR Reviewed by me shows cardiomegaly and clear lungs. Diuretics held on admission - continue to hold. Echocardiogram performed on date showed increased wall thickness in the Moderate LVH. Systolic function was normal with an EF of 65%. (6) A-fib ICD Code: I48.91 - Unspecified atrial fibrillation Status: Chronic Plan: EKG on admission showed sinus rhythm with first-degree AV block, right bundle branch block. Xarelto on hold due to increased creatinine and decreased GFR. I will start on heparin IV drip in the meantime until GFR improves and Xarelto can be restarted. (7) SOB (shortness of breath) ICD Code: R06.02 - Shortness of breath Status: Resolved Plan: Transfer breath improving. Chest x-ray without signs of infection or volume overload. VQ scan ordered and was low probability for pulmonary embolus and no significant perfusion defects seen. Lotion minutes venous Dopplers negative for DVT. Suspect patient's sensation of shortness of breath and slight tachypnea was secondary to respiratory compensation to metabolic acidosis which now has resolved. Assessment and Plan Prophylaxis: PPI. DVT prophylaxis: Continue SCDs, started on heparin drip. Problem Qualifiers (1) COPD (chronic obstructive pulmonary disease): Qualified Codes: J44.9 - Chronic obstructive pulmonary disease, unspecified (2) CHF (congestive heart failure): Qualified Codes: I50.32 - Chronic diastolic (congestive) heart failure (3) A-fib: Qualified Codes: I48.0 - Paroxysmal atrial fibrillation Doug Dowell MD May 15, 2017 12:18
[2017-05-15] MEDS ORDERED: SODIUM BICARBONATE 8.4% INJ 75 MEQ in SODIUM CHLOR 0.45% 1000 ML INJ 1,000 ML IV SCH (13:00)
[2017-05-15] MEDS: SODIUM CHLOR 0.9% 1000 ML INJ 1,000 ML IV SCH (14:13)
[2017-05-15] MEDS: LORazepam 1 MG TAB PO PRN ×2 (14:14→19:32)
[2017-05-15] MEDS ORDERED: HEPARIN-D5W 25,000 U/250 ML 250 ML IV PRN (15:30)
[2017-05-15] MEDS ORDERED: RIVAROXABAN 20 MG TAB PO SCH (16:00)
[2017-05-15 17:34] LABS: HEMATOCRIT 24.3 % (39.0-51.0); MEAN CELL VOLUME 97.8 FL (80.0-100.0); MEAN CORPUSCULAR HEMOGLOBIN 31.9 PG (27.0-34.0); MEAN CORPUSCULAR HGB CONC 32.7 % (32.0-36.0); PLATELET COUNT 201 TH/MM3 (150-450); RED BLOOD COUNT 2.49 MIL/MM3 (4.50-5.90); RED CELL DISTRIBUTION WIDTH 16.5 % (11.6-17.2); REVIEW FLAG FINAL; WHITE BLOOD COUNT 9.8 TH/MM3 (4.0-11.0)
[2017-05-15 17:45] LABS: APTT (PATIENT) 27.1 SEC (24.3-30.1); INTERNATIONAL NORMALIZED RATIO 1.1 RATIO
[2017-05-15] MEDS: ATORVASTATIN 40 MG TAB PO SCH ×2 (19:32)
[2017-05-15] MEDS: SODIUM CHLORIDE 0.9% FLUSH 10 ML FLUSH IV FLUSH SCH (19:33)
[2017-05-16] VITALS (7 sets, daily range): BP systolic 93–112; BP diastolic 49–59; PULSE 92–98; RESP 18–21; TEMP 96.5–98.2; O2SAT 97–100
[2017-05-16] MEDS: SODIUM CHLOR 0.9% 1000 ML INJ 1,000 ML IV SCH ×2 (00:05→13:25)
[2017-05-16] MEDS: SODIUM CHLORIDE 0.9% FLUSH 10 ML FLUSH IV FLUSH SCH ×2 (09:00→19:24)
[2017-05-16] MEDS: FLUTICASONE 100 MCG/VILANTEROL 25 MCG INHALER INH SCH (09:30)
[2017-05-16] MEDS: BUDESONIDE-FORMOTEROL 160/4.5 MCG INHALER INH SCH ×2 (09:30→20:51)
[2017-05-16] MEDS: PANTOPRAZOLE SOD 40 MG DELAYED RELEASE TAB PO SCH ×2 (09:32→20:45)
[2017-05-16] MEDS: DOCUSATE SODIUM 50 MG/SENNA 8.6 MG TAB PO SCH ×2 (09:32→20:51)
--- NOTE | 2017-05-16 12:52 | HHI.NPPN ---
Subjective Renal Failure: Acute Additional Remarks Patient is alert, sitting on chair, not in distress, breathing is better. Review of Systems General Constitutional: Fatigue Respiratory Lungs: SOB Cardiovascular Cardiac: Edema Objective Data Data Vital Signs Date Time Temp Pulse Resp B/P (MAP) Pulse Ox O2 Delivery O2 Flow Rate FiO2 05/16/17 12:00 96.5 93 18 107/53 (71) 99 05/16/17 08:00 98.0 92 20 112/59 (76) 100 05/16/17 04:00 97.6 95 21 110/54 (72) 99 05/16/17 00:00 97.7 98 21 93/49 (64) 100 05/15/17 21:00 96 05/15/17 20:00 96.9 101 22 108/57 (74) 99 05/15/17 16:21 96.3 92 20 115/60 (78) 100 -: 05/15/17 1555 05/15/17 0626 Microbiology 05/15/17 Stool Occult Blood (KARLA) - Final, Complete HEMOCCULT POSITIVE Tubes & Lines: Barrientos Physical Exam General Appearance: Well Developed, No Acute Distress, Comfortable, Obese Throat Throat Exam: Oral Mucosa Dearing & Moist Pulmonary Resp Exam: Breath Sounds Equal, No Distress, Rhonchi, Decreased Bases Cardiology CV Exam: Regular, Normal Sinus Rhythm Gastrointestinal/Abdomen GI Exam: Soft, Non-Tender, Positive Bowel Movement Genitourinary Exam: Sediment Musculoskeletal MS Exam: Normal Gait, Normal Tone, Good Strength Integumentary Skin Exam: Warm, Dry Extremeties Extremities Exam: Moderate Edema, Pitting Edema, Dependent Edema Neurologic Neuro Exam: Alert, Awake, Oriented Psychiatric Psych Exam: Appropriate Responses Assessment/Plan Discussed Condition With: Patient Assessment Summary: CORIN/Acute Renal Failure, Hypertension, CKD Stage III Electrolyte Assessment: Hyponatremia Problem List: (1) Acute renal failure ICD Codes: N17.9 - Acute kidney failure, unspecified Status: Acute Plan: He has baseline CKD 3; Creatinine 1.4, GFR 45 CORIN may be due to dehydration and NSAID use at home; he was also given Bactrim ( trimethoprim in Bactrim) prevents distal tubule creatinine secretion, causing increased serum levels of both acidosis is correcting renal funcition is improving change IVF to 0.9% NS and monitor response avoid nephrotoxins, Xarelto should be temporarily held in renal failure hold diuretics monitor urine output. Continue IVF, now new BMP, follow in AM. (2) Hyponatremia ICD Codes: E87.1 - Hypo-osmolality and hyponatremia Status: Resolved Plan: urine osmolality, sodium, and uric acid suggesting hypovolemic hyponatremia change IVF to 0.9% and follow labs Amy Velazquez MD May 16, 2017 12:52
--- NOTE | 2017-05-16 13:06 | HHI.PR ---
Subjective Remarks tachycardia is improving hemoglobin noted to be trending down patient c/o red blood in the stool denies fevers or chills sob is better tachycardia improving Objective Vitals Vital Signs Date Time Temp Pulse Resp B/P (MAP) Pulse Ox O2 Delivery O2 Flow Rate FiO2 05/16/17 12:00 96.5 93 18 107/53 (71) 99 05/16/17 08:00 98.0 92 20 112/59 (76) 100 05/16/17 04:00 97.6 95 21 110/54 (72) 99 05/16/17 00:00 97.7 98 21 93/49 (64) 100 05/15/17 21:00 96 05/15/17 20:00 96.9 101 22 108/57 (74) 99 05/15/17 16:21 96.3 92 20 115/60 (78) 100 I/O 05/15/17 05/15/17 05/15/17 05/16/17 05/16/17 05/16/17 07:00 15:00 23:00 07:00 15:00 23:00 Intake Total 429 ml 1734 ml 360 ml 1249 ml Output Total 700 ml 550 ml 475 ml 500 ml Balance -271 ml 1184 ml -115 ml 749 ml Intake Oral 120 ml 720 ml 360 ml 120 ml IV Total 309 ml 1014 ml 1129 ml Output Urine Total 700 ml 550 ml 475 ml 500 ml # Bowel Movements 0 2 Result Diagram: 05/15/17 1555 05/15/17 0626 Imaging Last Impressions Chest X-Ray 05/14/17 1107 Signed Impressions: Service Date/Time: April 11:22 - CONCLUSION: Cardiomegaly. Clear lungs. Gonzalez Stewart Jr., MD Lung Scan-VQ Nuclear Medicine 05/14/17 0000 Signed Impressions: Service Date/Time: April 21:33 - CONCLUSION: Low probability for pulmonary embolus. No significant perfusion defects are seen. Renny Pace MD Lower Extremity Ultrasound 05/14/17 0000 Signed Impressions: Service Date/Time: April 22:16 - CONCLUSION: No DVT is identified within either lower extremity. Renny Blackman MD Objective Remarks AAOx3, sitting in chair, nad Lungs clear to auscultation BL Abdomen obese, soft, NT. Barrientos catheter in place w yellow urine. no edema in lower extremities dry Bilateral lower extremities Procedures none Medications and IVs Current Medications Medications (Trade) Dose Ordered Sig/Delilah Route Start Time Stop Time Status Last Admin (Ativan) 1 mg Q4H PRN PO 05/14/17 13:00 05/15/17 19:32 (Ativan Inj) 1 mg Q4H PRN IV PUSH 05/14/17 13:00 05/14/17 17:53 (Ativan) 2 mg Q2H PRN PO 05/14/17 13:00 (Ativan Inj) 2 mg Q2H PRN IV PUSH 05/14/17 13:00 05/14/17 15:53 (Ativan Inj) 2 mg Q1H PRN IV PUSH 05/14/17 13:00 (Ativan Inj) 2 mg Q15M PRN IV PUSH 05/14/17 13:00 (NS Flush) 2 ml UNSCH PRN IV FLUSH 05/14/17 13:00 (NS Flush) 2 ml BID IV FLUSH 05/14/17 21:00 (Tylenol) 650 mg Q4H PRN PO 05/14/17 13:00 (Zofran Inj) 4 mg Q6H PRN IVP 05/14/17 13:00 (Narcan Inj) 0.4 mg UNSCH PRN IV 05/14/17 13:00 (Coco-Colace) 1 tab BID PO 05/14/17 21:00 05/16/17 09:32 (Milk Of Magnesia Liq) 30 ml Q12H PRN PO 05/14/17 13:00 (Senokot) 17.2 mg Q12H PRN PO 05/14/17 13:00 (Dulcolax Supp) 10 mg DAILY PRN RECTAL 05/14/17 13:00 (Lactulose Liq) 30 ml DAILY PRN PO 05/14/17 13:00 (Lipitor) 40 mg HS PO 05/14/17 22:00 05/15/17 19:32 (Symbicort 160-4.5 Inh) 2 puff Q12HR INH 05/14/17 22:00 05/16/17 09:30 (Breo Ellipta 100-25 Inh) 1 puff DAILY INH 05/14/17 22:00 05/16/17 09:30 (Protonix) 40 mg DAILY PO 05/15/17 09:00 05/16/17 09:32 (Xarelto) 20 mg AC DINNER PO 05/15/17 16:00 Future Hold (Atrovent Neb) 0.5 mg Q6HR NEB PRN NEB 05/14/17 21:45 Sodium Chloride 1,000 ml @ 75 mls/hr [id number] IV 05/15/17 10:45 05/15/17 14:13 Urinary Catheter: No Vascular Central Line Catheter: No A/P Problem List: (1) Acute renal failure ICD Code: N17.9 - Acute kidney failure, unspecified Status: Acute Plan: Acute kidney injury on chronic kidney disease stage III. Baseline creatinine is around 1.6-1.7. Acute kidney injury possible combination of over diureses with possible Bactrim use. Creatinine on admission 5.21 Treated with half-normal saline with sodium bicarbonate due to ongoing metabolic acidosis. Metabolic acidosis has resolved and creatinine is trending down. Creatinine 4.81 today. Continue to monitor BMP, strict I's and O's, avoid nephrotoxins. Nephrology consulted and following patient. Appreciate recommendations. 05/16 previously on half-normal saline with bicarbonate, discontinued on 05/15 and started normal saline. The patient has a good urine output. Labs pending for today. As per patient these could not be obtained earlier in the morning. (2) Hyponatremia ICD Code: E87.1 - Hypo-osmolality and hyponatremia Status: Resolved Plan: Sodium was slightly improved. Likely secondary to over diuresis and dehydration and hypovolemia. Continue IV normal saline and continue to monitor BMP. Labs pending 05/16 (3) Metabolic acidosis ICD Code: E87.2 - Acidosis Status: Resolved Plan: And about acidosis likely secondary to acute renal failure, treated with half-normal saline with bicarbonate. Metabolic acidosis now resolved. DC half-normal saline with bicarbonate and start IV normal saline. (4) COPD (chronic obstructive pulmonary disease) ICD Code: J44.9 - Chronic obstructive pulmonary disease, unspecified Status: Chronic Plan: Patient is oxygen dependent at home. Currently on 2 L cannula which is the patient's baseline. There is no evidence of acute exacerbation. Continue Symbicort, Breo Ellipta and Atrovent nebulizer treatments. (5) CHF (congestive heart failure) ICD Code: I50.9 - Heart failure, unspecified Status: Chronic Plan: SEems stable. CXR Reviewed by me shows cardiomegaly and clear lungs. Diuretics held on admission - continue to hold. Echocardiogram performed on date showed increased wall thickness in the Moderate LVH. Systolic function was normal with an EF of 65%. (6) A-fib ICD Code: I48.91 - Unspecified atrial fibrillation Status: Chronic Plan: EKG on admission showed sinus rhythm with first-degree AV block, right bundle branch block. Xarelto on hold due to increased creatinine and decreased GFR. I will start on heparin IV drip in the meantime until GFR improves and Xarelto can be restarted. (7) SOB (shortness of breath) ICD Code: R06.02 - Shortness of breath Status: Resolved Plan: Transfer breath improving. Chest x-ray without signs of infection or volume overload. VQ scan ordered and was low probability for pulmonary embolus and no significant perfusion defects seen. Lotion minutes venous Dopplers negative for DVT. Suspect patient's sensation of shortness of breath and slight tachypnea was secondary to respiratory compensation to metabolic acidosis which now has resolved. (8) Anemia ICD Code: D64.9 - Anemia, unspecified Status: Acute Plan: Acute on chronic anemia likely secondary to GI bleed since patient is guaiac (+) and . The patient has history of GI bleed and a gastric ulcer diagnosed on an EGD performed at this institution on August 2016. I will transfuse 1 unit of packed red blood cells and continue to monitor CBC. (9) GI bleed ICD Code: K92.2 - Gastrointestinal hemorrhage, unspecified Status: Acute Plan: Patient complains of bright red blood per rectum. I will hold all anticoagulation and transfuse 1 unit of PRBCs. Patient has had an EGD on August 2016 were a gastric ulcer was found. I will also continue PPI but increase Protonix to 40 mg IV twice a day. I will also consult GI. Assessment and Plan Prophylaxis: PPI. DVT prophylaxis: Continue SCDs, started on heparin drip. Discharge Planning Continue to monitor in the medical floor. Patient has GI bleed, GI consult pending, still on IV fluids for CORIN. Problem Qualifiers (1) COPD (chronic obstructive pulmonary disease): Qualified Codes: J44.9 - Chronic obstructive pulmonary disease, unspecified (2) CHF (congestive heart failure): Qualified Codes: I50.32 - Chronic diastolic (congestive) heart failure (3) A-fib: Qualified Codes: I48.0 - Paroxysmal atrial fibrillation (4) Anemia: Doug Dowell MD May 16, 2017 13:06
[2017-05-16] MEDS ORDERED: diphenhydrAMINE HCL 25 MG CAP PO PRN (13:30)
[2017-05-16] MEDS ORDERED: SODIUM CHLOR 0.9% 250 ML INJ 250 ML IV ONE (13:30)
[2017-05-16] MEDS ORDERED: ACETAMINOPHEN 325 MG TAB PO PRN (13:30)
[2017-05-16 14:30] LABS: HEMATOCRIT 23.9 % (39.0-51.0); MEAN CELL VOLUME 98.7 FL (80.0-100.0); MEAN CORPUSCULAR HEMOGLOBIN 31.9 PG (27.0-34.0); MEAN CORPUSCULAR HGB CONC 32.4 % (32.0-36.0); PLATELET COUNT 167 TH/MM3 (150-450); RED BLOOD COUNT 2.42 MIL/MM3 (4.50-5.90); RED CELL DISTRIBUTION WIDTH 16.6 % (11.6-17.2); REVIEW FLAG FINAL; WHITE BLOOD COUNT 5.8 TH/MM3 (4.0-11.0)
[2017-05-16 14:53] LABS: MAGNESIUM 2.2 MG/DL (1.5-2.5); POTASSIUM 4.1 MEQ/L (3.5-5.1)
--- NOTE | 2017-05-16 16:32 | PD.CONS ---
HPI History of Present Illness This is a 61 year old male patient admitted for COPD and edema. He reports he has been seeing bright red blood in his stool for about one year and a few months ago had a colonoscopy that was OK but then he was asked to have another colonoscopy because the first one was not deep enough. He does not recall having an EGD although he was noted to have had an EGD at [place] recently showing an ulcer. He has passed a few dark loose stools in the past few days. I observed a stool he had passed in the hospital and it is dark an appears to contain blood. Not melenic. He denies abdominal pain. No nausea or vomiting. He denies diabetes, does have COPD and has A fib. His anticoagulants have been stopped. ROS: denies SOB, chest pain, headache, sore throat, GERD, dysuria. He does complain of edema. Otherwise complete ros is normal. 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 Hypertension. Next a 3. CAD. 4. Oxygen dependent COPD. 5. History of CVA. 6. CHF (echo on 02/03/17 with EF of 65%). 7. Hyponatremia. 8. Cellulitis bilateral lower extremities. 9. Renal insufficiency. 10. Atrial fibrillation. Past Surgical History 1. Appendectomy. 2. Cardiac ablation. 3. Tonsillectomy. Coded Allergies: No Known Allergies (Unverified , 05/15/17) Medications Current Medications Medications (Trade) Dose Ordered Sig/Delilah Route Start Time Stop Time Status Last Admin (Ativan) 1 mg Q4H PRN PO 05/14/17 13:00 05/15/17 19:32 (Ativan Inj) 1 mg Q4H PRN IV PUSH 05/14/17 13:00 05/14/17 17:53 (Ativan) 2 mg Q2H PRN PO 05/14/17 13:00 (Ativan Inj) 2 mg Q2H PRN IV PUSH 05/14/17 13:00 05/14/17 15:53 (Ativan Inj) 2 mg Q1H PRN IV PUSH 05/14/17 13:00 (Ativan Inj) 2 mg Q15M PRN IV PUSH 05/14/17 13:00 (NS Flush) 2 ml UNSCH PRN IV FLUSH 05/14/17 13:00 (NS Flush) 2 ml BID IV FLUSH 05/14/17 21:00 (Tylenol) 650 mg Q4H PRN PO 05/14/17 13:00 (Zofran Inj) 4 mg Q6H PRN IVP 05/14/17 13:00 (Narcan Inj) 0.4 mg UNSCH PRN IV 05/14/17 13:00 (Coco-Colace) 1 tab BID PO 05/14/17 21:00 05/16/17 09:32 (Milk Of Magnesia Liq) 30 ml Q12H PRN PO 05/14/17 13:00 (Senokot) 17.2 mg Q12H PRN PO 05/14/17 13:00 (Dulcolax Supp) 10 mg DAILY PRN RECTAL 05/14/17 13:00 (Lactulose Liq) 30 ml DAILY PRN PO 05/14/17 13:00 (Lipitor) 40 mg HS PO 05/14/17 22:00 05/15/17 19:32 (Symbicort 160-4.5 Inh) 2 puff Q12HR INH 05/14/17 22:00 05/16/17 09:30 (Breo Ellipta 100-25 Inh) 1 puff DAILY INH 05/14/17 22:00 05/16/17 09:30 (Xarelto) 20 mg AC DINNER PO 05/15/17 16:00 Future Hold (Atrovent Neb) 0.5 mg Q6HR NEB PRN NEB 05/14/17 21:45 Sodium Chloride 1,000 ml @ 75 mls/hr [id number] IV 05/15/17 10:45 05/15/17 14:13 (Protonix) 40 mg Q12HR PO 05/16/17 21:00 Sodium Chloride 250 ml @ 15 mls/hr ONCE ONCE IV 05/16/17 13:30 05/17/17 06:09 (Tylenol) 650 mg Q4H PRN PO 05/16/17 13:30 (Benadryl) 25 mg Q4H PRN PO 05/16/17 13:30 Social History Positive for alcohol. Negative for tobacco and drugs. GI Exam Vitals I&O Vital Signs Date Time Temp Pulse Resp B/P (MAP) Pulse Ox O2 Delivery O2 Flow Rate FiO2 05/16/17 12:00 96.5 93 18 107/53 (71) 99 05/16/17 08:00 98.0 92 20 112/59 (76) 100 05/16/17 04:00 97.6 95 21 110/54 (72) 99 05/16/17 00:00 97.7 98 21 93/49 (64) 100 05/15/17 21:00 96 05/15/17 20:00 96.9 101 22 108/57 (74) 99 I/O 05/15/17 05/15/17 05/15/17 05/16/17 05/16/17 05/16/17 07:00 15:00 23:00 07:00 15:00 23:00 Intake Total 429 ml 1734 ml 360 ml 1249 ml 840 ml Output Total 700 ml 550 ml 475 ml 500 ml Balance -271 ml 1184 ml -115 ml 749 ml 840 ml Intake Oral 120 ml 720 ml 360 ml 120 ml 840 ml IV Total 309 ml 1014 ml 1129 ml Output Urine Total 700 ml 550 ml 475 ml 500 ml # Bowel Movements 0 2 0 Laboratory Test 05/16/17 12:57 White Blood Count 5.8 TH/MM3 Red Blood Count 2.42 MIL/MM3 Hemoglobin 7.7 GM/DL Hematocrit 23.9 % Mean Corpuscular Volume 98.7 FL Mean Corpuscular Hemoglobin 31.9 PG Mean Corpuscular Hemoglobin Concent 32.4 % Red Cell Distribution Width 16.6 % Platelet Count 167 TH/MM3 Mean Platelet Volume 6.4 FL Blood Urea Nitrogen 77 MG/DL Creatinine 3.41 MG/DL Random Glucose 124 MG/DL Calcium Level 8.3 MG/DL Phosphorus Level 3.1 MG/DL Magnesium Level 2.2 MG/DL Sodium Level 130 MEQ/L Potassium Level 4.1 MEQ/L Chloride Level 92 MEQ/L Carbon Dioxide Level 27.0 MEQ/L Anion Gap 11 MEQ/L Estimat Glomerular Filtration Rate 18 ML/MIN Date/Time Source Procedure Growth Status 05/15/17 22:44 Stool Stool Stool Occult Blood (KARLA) - Final HEMOCCULT POSITIVE Complete 05/14/17 13:00 Urine Catheterized Urine Urine Culture - Final NO GROWTH IN 48 HOURS. Complete Physical Examination HEENT: Pupils round and reactive to light; normocephalic; atraumatic; no jaundice. Throat is clear. NECK: Neck is supple, no JVD, no lymphadenopathy. CHEST: Chest is clear to auscultation and percussion. CARDIAC: Regular rate and rhythm with no murmur gallop or rubs. ABDOMEN: Soft, obese, non tender EXTREMITIES: No clubbing, cyanosis. 4 + edema in legs with chronic skin changes SKIN: Normal; no jaundice. INSTALLATIONS INSPECTOR: No focal deficits Assessment and Plan Plan Imp: Aneemia, rectal bleeding. History of ulcer in stomach. COPD. Obese, chronic edema of legs REc: We will perform EGD and Colonoscopy when his medical condition permits. Agree with protonix 40mg bid Continue to monitor H/H and transfuse as needed. Justino Juarez MD May 16, 2017 16:32
[2017-05-16] MEDS: LORazepam 1 MG TAB PO PRN (20:45)
[2017-05-16] MEDS: ATORVASTATIN 40 MG TAB PO SCH (20:45)
[2017-05-17] VITALS (10 sets, daily range): BP systolic 105–133; BP diastolic 55–61; PULSE 95–105; RESP 16–20; TEMP 96.4–97.8; O2SAT 95–100
[2017-05-17] MEDS: LORazepam 1 MG TAB PO PRN ×2 (00:15→20:23)
[2017-05-17] MEDS: SODIUM CHLOR 0.9% 1000 ML INJ 1,000 ML IV SCH ×2 (03:19→15:09)
[2017-05-17] MEDS: FLUTICASONE 100 MCG/VILANTEROL 25 MCG INHALER INH SCH (08:11)
[2017-05-17] MEDS: BUDESONIDE-FORMOTEROL 160/4.5 MCG INHALER INH SCH ×2 (08:11→20:19)
[2017-05-17] MEDS: PANTOPRAZOLE SOD 40 MG DELAYED RELEASE TAB PO SCH ×2 (08:11→20:20)
[2017-05-17] MEDS: SODIUM CHLORIDE 0.9% FLUSH 10 ML FLUSH IV FLUSH SCH ×2 (08:12→20:20)
[2017-05-17] MEDS: DOCUSATE SODIUM 50 MG/SENNA 8.6 MG TAB PO SCH ×2 (08:12→20:29)
--- NOTE | 2017-05-17 12:29 | HHI.GIFU ---
Subjective Remarks Sitting up in bed in no apparent distress. Denies abdominal pain. No N/V. Tolerating diet with good appetite. Reports 2 large formed stools that were dark in color. States his breathing is at baseline. Objective Vitals I&O Vital Signs Date Time Temp Pulse Resp B/P (MAP) Pulse Ox O2 Delivery O2 Flow Rate FiO2 05/17/17 12:00 97.8 101 18 121/58 (79) 100 05/17/17 09:28 97 Nasal Cannula 2.00 05/17/17 08:00 97.4 98 20 117/56 (76) 97 05/17/17 03:40 96.4 103 18 113/56 99 05/17/17 00:10 97.5 105 19 105/58 99 05/17/17 00:07 20 05/17/17 00:03 97.2 102 20 113/55 97 05/16/17 22:45 Nasal Cannula 2.00 05/16/17 20:00 98.2 97 20 105/57 (73) 100 05/16/17 16:00 96.8 93 18 103/50 (67) 100 I/O 05/16/17 05/16/17 05/16/17 05/17/17 05/17/17 05/17/17 06:59 14:59 22:59 06:59 14:59 22:59 Intake Total 1249 ml 840 ml 240 ml 280 ml Output Total 500 ml 1600 ml Balance 749 ml 840 ml -1360 ml 280 ml Intake Oral 120 ml 840 ml 240 ml IV Total 1129 ml Packed Cells 250 ml Blood Product IV Normal Saline Flush 30 ml Output Urine Total 500 ml 1600 ml # Bowel Movements 0 1 Laboratory Laboratory Tests Test 05/16/17 12:57 White Blood Count 5.8 Red Blood Count 2.42 Hemoglobin 7.7 Hematocrit 23.9 Mean Corpuscular Volume 98.7 Mean Corpuscular Hemoglobin 31.9 Mean Corpuscular Hemoglobin Concent 32.4 Red Cell Distribution Width 16.6 Platelet Count 167 Mean Platelet Volume 6.4 Blood Urea Nitrogen 77 Creatinine 3.41 Random Glucose 124 Calcium Level 8.3 Phosphorus Level 3.1 Magnesium Level 2.2 Sodium Level 130 Potassium Level 4.1 Chloride Level 92 Carbon Dioxide Level 27.0 Anion Gap 11 Estimat Glomerular Filtration Rate 18 Date/Time Source Procedure Growth Status 05/15/17 22:44 Stool Stool Stool Occult Blood ([facility]) - Final HEMOCCULT POSITIVE Complete 05/14/17 13:00 Urine Catheterized Urine Urine Culture - Final NO GROWTH IN 48 HOURS. Complete Imaging Last Impressions Chest X-Ray 05/14/17 1107 Signed Impressions: Service Date/Time: , May 14, 2017 11:22 - CONCLUSION: Cardiomegaly. Clear lungs. Gonzalez Stewart Jr., MD Lung Scan-V Nuclear Medicine 05/14/17 0000 Signed Impressions: Service Date/Time: , May 14, 2017 21:33 - CONCLUSION: Low probability for pulmonary embolus. No significant perfusion defects are seen. Renny Pace MD Lower Extremity Ultrasound 05/14/17 0000 Signed Impressions: Service Date/Time: , May 14, 2017 22:16 - CONCLUSION: No DVT is identified within either lower extremity. Renny Blackman MD Physical Exam HEENT: PERRLA; normocephalic; atraumatic; no jaundice. Throat is clear. NECK: Neck is supple, no JVD, no lymphadenopathy. CHEST: CTA. On 2L NC, O2 sat 97% CARDIAC: RRR with no murmur gallop or rubs. ABDOMEN: Soft, obese, nondistended, nontender; bowel sounds are present x 4 quadrants EXTREMITIES: No clubbing, cyanosis, 4+ edema at bilateral legs and chronic skin changes noted SKIN: Normal; no rash; no jaundice. 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 History of ulcer in stomach. Reports 2 large formed stools that were dark. No abdominal pain or N/V. HH trending down, 7.7/23.9 (05/16 ). CBC ordered for today. COPD, O2 dependent. Stable. Denies shortness of breath. PLAN: - EGD/Colonoscopy Thursday. - Obtain consents - Clear liquids Thursday - NPO after MN on Thursday - Bowel prep Thursday - Continue Protonix 40mg BID - Monitor HH, transfuse as necessary - Supportive care - Further recommendations to follow based on results of above. Patient seen and examined by Dr. Juarez and myself and this note is written on his behalf. Marjorie Deutsch May 17, 2017 12:29
--- NOTE | 2017-05-17 12:40 | HHI.PR ---
Subjective Remarks Denies melena or hematochezia has good urine output although urine is dark slight tachycardia on vital signs denies cp/sob denies fevers and chills Objective Vitals Vital Signs Date Time Temp Pulse Resp B/P (MAP) Pulse Ox O2 Delivery O2 Flow Rate FiO2 05/17/17 12:00 97.8 101 18 121/58 (79) 100 05/17/17 09:28 97 Nasal Cannula 2.00 05/17/17 08:00 97.4 98 20 117/56 (76) 97 05/17/17 03:40 96.4 103 18 113/56 99 05/17/17 00:10 97.5 105 19 105/58 99 05/17/17 00:07 20 05/17/17 00:03 97.2 102 20 113/55 97 05/16/17 22:45 Nasal Cannula 2.00 05/16/17 20:00 98.2 97 20 105/57 (73) 100 05/16/17 16:00 96.8 93 18 103/50 (67) 100 I/O 05/16/17 05/16/17 05/16/17 05/17/17 05/17/17 05/17/17 07:00 15:00 23:00 07:00 15:00 23:00 Intake Total 1249 ml 840 ml 240 ml 280 ml Output Total 500 ml 1600 ml Balance 749 ml 840 ml -1360 ml 280 ml Intake Oral 120 ml 840 ml 240 ml IV Total 1129 ml Packed Cells 250 ml Blood Product IV Normal Saline Flush 30 ml Output Urine Total 500 ml 1600 ml # Bowel Movements 0 1 Result Diagram: 05/16/17 1257 05/16/17 1257 Imaging Last Impressions Chest X-Ray 05/14/17 1107 Signed Impressions: Service Date/Time: April 11:22 - CONCLUSION: Cardiomegaly. Clear lungs. Gonzalez Stewart Jr., MD Lung Scan- Nuclear Medicine 05/14/17 0000 Signed Impressions: Service Date/Time: April 21:33 - CONCLUSION: Low probability for pulmonary embolus. No significant perfusion defects are seen. Renny Pace MD Lower Extremity Ultrasound 05/14/17 0000 Signed Impressions: Service Date/Time: Thursday, May 14, 2017 22:16 - CONCLUSION: No DVT is identified within either lower extremity. Renny Blackman MD Objective Remarks AAOx3, sitting in chair, nad Lungs clear to auscultation BL Abdomen obese, soft, NT. Barrientos catheter in place w yellow urine. no edema in lower extremities dry Bilateral lower extremities Procedures none Medications and IVs Current Medications Medications (Trade) Dose Ordered Sig/Delilah Route Start Time Stop Time Status Last Admin (Ativan) 1 mg Q4H PRN PO 05/14/17 13:00 05/17/17 00:15 (Ativan Inj) 1 mg Q4H PRN IV PUSH 05/14/17 13:00 05/14/17 17:53 (Ativan) 2 mg Q2H PRN PO 05/14/17 13:00 (Ativan Inj) 2 mg Q2H PRN IV PUSH 05/14/17 13:00 05/14/17 15:53 (Ativan Inj) 2 mg Q1H PRN IV PUSH 05/14/17 13:00 (Ativan Inj) 2 mg Q15M PRN IV PUSH 05/14/17 13:00 (NS Flush) 2 ml UNSCH PRN IV FLUSH 05/14/17 13:00 (NS Flush) 2 ml BID IV FLUSH 05/14/17 21:00 (Tylenol) 650 mg Q4H PRN PO 05/14/17 13:00 (Zofran Inj) 4 mg Q6H PRN IVP 05/14/17 13:00 (Narcan Inj) 0.4 mg UNSCH PRN IV 05/14/17 13:00 (Coco-Colace) 1 tab BID PO 05/14/17 21:00 05/17/17 08:12 (Milk Of Magnesia Liq) 30 ml Q12H PRN PO 05/14/17 13:00 (Senokot) 17.2 mg Q12H PRN PO 05/14/17 13:00 (Dulcolax Supp) 10 mg DAILY PRN RECTAL 05/14/17 13:00 (Lactulose Liq) 30 ml DAILY PRN PO 05/14/17 13:00 (Lipitor) 40 mg HS PO 05/14/17 22:00 05/16/17 20:45 (Symbicort 160-4.5 Inh) 2 puff Q12HR INH 05/14/17 22:00 05/17/17 08:11 (Breo Ellipta 100-25 Inh) 1 puff DAILY INH 05/14/17 22:00 05/17/17 08:11 (Xarelto) 20 mg AC DINNER PO 05/15/17 16:00 Future Hold (Atrovent Neb) 0.5 mg Q6HR NEB PRN NEB 05/14/17 21:45 Sodium Chloride 1,000 ml @ 75 mls/hr [id number] IV 05/15/17 10:45 05/17/17 03:19 (Protonix) 40 mg Q12HR PO 05/16/17 21:00 05/17/17 08:11 (Tylenol) 650 mg Q4H PRN PO 05/16/17 13:30 05/16/17 23:01 (Benadryl) 25 mg Q4H PRN PO 05/16/17 13:30 05/16/17 23:01 (Colyte Liq) 4,000 ml ONCE ONCE PO 05/18/17 16:00 05/18/17 16:01 Urinary Catheter: Yes Assessment to: Continue Barrientos insert reason: Measure Accurate Output A/P Problem List: (1) Acute renal failure ICD Code: N17.9 - Acute kidney failure, unspecified Status: Acute Plan: Acute kidney injury on chronic kidney disease stage III. Baseline creatinine is around 1.6-1.7. Acute kidney injury possible combination of over diureses with possible Bactrim use. Creatinine on admission 5.21 Treated with half-normal saline with sodium bicarbonate due to ongoing metabolic acidosis. Metabolic acidosis has resolved and creatinine is trending down. Creatinine 4.81 today. Continue to monitor BMP, strict I's and O's, avoid nephrotoxins. Nephrology consulted and following patient. Appreciate recommendations. Previously on half-normal saline with bicarbonate, discontinued on 05/15 and started normal saline. T 05/17 Patient has good urine output. Creatinine is trending down. Fu nephrology recommendations. Continue to monitor BMP. (2) Hyponatremia ICD Code: E87.1 - Hypo-osmolality and hyponatremia Status: Acute Plan: Sodium was slightly improved. Likely secondary to over diuresis and dehydration and hypovolemia. Continue IV normal saline and continue to monitor BMP. 05/17 Sodium improving - 130 on 05/16. Continue to monitor BMP. (3) Metabolic acidosis ICD Code: E87.2 - Acidosis Status: Resolved Plan: And about acidosis likely secondary to acute renal failure, treated with half-normal saline with bicarbonate. Metabolic acidosis resolved administration of half-normal saline with sodium bicarbonate. GM fluids as per renal recommendations. (4) COPD (chronic obstructive pulmonary disease) ICD Code: J44.9 - Chronic obstructive pulmonary disease, unspecified Status: Chronic Plan: Patient is oxygen dependent at home. Currently on 2 L cannula which is the patient's baseline. There is no evidence of acute exacerbation. Continue Symbicort, Breo Ellipta and Atrovent nebulizer treatments. (5) CHF (congestive heart failure) ICD Code: I50.9 - Heart failure, unspecified Status: Chronic Plan: SEems stable. CXR Reviewed by me shows cardiomegaly and clear lungs. Diuretics held on admission - continue to hold. Echocardiogram performed on date showed increased wall thickness in the Moderate LVH. Systolic function was normal with an EF of 65%. (6) A-fib ICD Code: I48.91 - Unspecified atrial fibrillation Status: Chronic Plan: EKG on admission showed sinus rhythm with first-degree AV block, right bundle branch block. 05/17 all anticoagulation is on hold secondary to GI bleed. (7) SOB (shortness of breath) ICD Code: R06.02 - Shortness of breath Status: Resolved Plan: Transfer breath improving. Chest x-ray without signs of infection or volume overload. VQ scan ordered and was low probability for pulmonary embolus and no significant perfusion defects seen. Lower extremities venous Dopplers negative for DVT. Suspect patient's sensation of shortness of breath and slight tachypnea was secondary to respiratory compensation to metabolic acidosis which now has resolved. (8) Anemia ICD Code: D64.9 - Anemia, unspecified Status: Acute Plan: Acute on chronic anemia likely secondary to GI bleed since patient is guaiac (+) and . The patient has history of GI bleed and a gastric ulcer diagnosed on an EGD performed at this institution on August 2016. 05/17 Patient is sp transfusion of 1 unit PRBC. Labs pending. Continue to monitor for active bleeding which has resolved for now. Continue to monitor CBC and will transfuse as needed for hemoglobin less than 7 or hemoglobin less than 8 if active bleeding. (9) GI bleed ICD Code: K92.2 - Gastrointestinal hemorrhage, unspecified Status: Acute Plan: The patient complaint of bright red blood per rectum on 05/16. Patient previously on the correlation with Xarelto which was held and heparin IV drip ordered, however never started since the patient was Hemoccult positive and had GI bleed. Patient was already on PPI with Protonix 40 mg by mouth daily. Oral Protonix was discontinued and the patient was started on Protonix IV twice a day. Patient has had an EGD on August 2016 were a gastric ulcer was found. 05/17 GI consulted. Discussed case over the phone with Dr. Juarez and the patient needs an EGD and colonoscopy, however it was decided to wait for clinical improvement of acute kidney injury before proceeding with the procedure. Assessment and Plan Prophylaxis: PPI. DVT prophylaxis: Continue SCDs, chemoprophylaxis contraindicated due to GI bleed and anemia. Discharge Planning Continue to monitor in the medical floor. Patient has GI bleed, GI consult pending, still on IV fluids for CORIN. Problem Qualifiers (1) COPD (chronic obstructive pulmonary disease): Qualified Codes: J44.9 - Chronic obstructive pulmonary disease, unspecified (2) CHF (congestive heart failure): Qualified Codes: I50.32 - Chronic diastolic (congestive) heart failure (3) A-fib: Qualified Codes: I48.0 - Paroxysmal atrial fibrillation (4) Anemia: Doug Dowell MD May 17, 2017 12:40
--- NOTE | 2017-05-17 14:02 | HHI.NPPN ---
Subjective Renal Failure: Acute Additional Remarks Patient is alert, sitting on chair, breathing is better, clinically same. Review of Systems General Constitutional: Fatigue Respiratory Lungs: SOB Cardiovascular Cardiac: Edema Objective Data Data 05/17/17 05/18/17 18:59 06:59 # Bowel Movements 1 Vital Signs Date Time Temp Pulse Resp B/P (MAP) Pulse Ox O2 Delivery O2 Flow Rate FiO2 05/17/17 12:00 97.8 101 18 121/58 (79) 100 05/17/17 09:28 97 Nasal Cannula 2.00 05/17/17 08:00 97.4 98 20 117/56 (76) 97 05/17/17 03:40 96.4 103 18 113/56 99 05/17/17 00:10 97.5 105 19 105/58 99 05/17/17 00:07 20 05/17/17 00:03 97.2 102 20 113/55 97 05/16/17 22:45 Nasal Cannula 2.00 05/16/17 20:00 98.2 97 20 105/57 (73) 100 05/16/17 16:00 96.8 93 18 103/50 (67) 100 -: 05/16/17 1257 05/16/17 1257 Tubes & Lines: Barrientos Physical Exam General Appearance: Well Developed, No Acute Distress, Comfortable, Obese Throat Throat Exam: Oral Mucosa [place] & Moist Pulmonary Resp Exam: Breath Sounds Equal, No Distress, Rhonchi, Decreased Bases Cardiology CV Exam: Regular, Normal Sinus Rhythm Gastrointestinal/Abdomen GI Exam: Soft, Non-Tender, Positive Bowel Movement Genitourinary Exam: Sediment Musculoskeletal MS Exam: Normal Gait, Normal Tone, Good Strength Integumentary Skin Exam: Warm, Dry Extremeties Extremities Exam: Moderate Edema, Pitting Edema, Dependent Edema Neurologic Neuro Exam: Alert, Awake, Oriented Psychiatric Psych Exam: Appropriate Responses Assessment/Plan Discussed Condition With: Patient Assessment Summary: CORIN/Acute Renal Failure, Hypertension, CKD Stage III Electrolyte Assessment: Hyponatremia Problem List: (1) Acute renal failure ICD Codes: N17.9 - Acute kidney failure, unspecified Status: Acute Plan: He has baseline CKD 3; Creatinine 1.4, GFR 45 CORIN may be due to dehydration and NSAID use at home; he was also given Bactrim ( trimethoprim in Bactrim) prevents distal tubule creatinine secretion, causing increased serum levels of both acidosis is correcting renal funcition is improving change IVF to 0.9% NS and monitor response avoid nephrotoxins, Xarelto should be temporarily held in renal failure hold diuretics monitor urine output. Continue IVF, Creatinine was better yesterday. Getting labs now. (2) Hyponatremia ICD Codes: E87.1 - Hypo-osmolality and hyponatremia Status: Resolved Plan: urine osmolality, sodium, and uric acid suggesting hypovolemic hyponatremia change IVF to 0.9% and follow labs Plan Transfuse 1 unit last night, for GI workup. Amy Velazquez MD May 17, 2017 14:02
[2017-05-17 15:29] LABS: HEMATOCRIT 26.8 % (39.0-51.0); MEAN CELL VOLUME 99.7 FL (80.0-100.0); MEAN CORPUSCULAR HGB CONC 32.1 % (32.0-36.0); PLATELET COUNT 170 TH/MM3 (150-450); RED BLOOD COUNT 2.69 MIL/MM3 (4.50-5.90); RED CELL DISTRIBUTION WIDTH 16.4 % (11.6-17.2); REVIEW FLAG FINAL; WHITE BLOOD COUNT 4.7 TH/MM3 (4.0-11.0)
[2017-05-17 15:58] LABS: BICARBONATE 27.7 MEQ/L (21.0-32.0); POTASSIUM 4.3 MEQ/L (3.5-5.1)
[2017-05-17] MEDS: ATORVASTATIN 40 MG TAB PO SCH (20:20)
[2017-05-18] VITALS (10 sets, daily range): BP systolic 118–143; BP diastolic 58–92; PULSE 91–102; RESP 18–20; TEMP 96.1–97.2; O2SAT 92–99
[2017-05-18] MEDS: SODIUM CHLOR 0.9% 1000 ML INJ 1,000 ML IV SCH (05:25)
[2017-05-18 06:52] LABS: AUTOMATED NEUTROPHIL # 3.1 TH/MM3 (1.8-7.7); BASOPHIL % 1.1 % (0.0-2.0); EOSINOPHIL # 0.2 TH/MM3 (0-0.4); EOSINOPHIL % 3.5 % (0.0-4.0); HEMATOCRIT 26.1 % (39.0-51.0); HEMO FLAGS DIFF FINAL; LYMPH % 14.3 % (9.0-44.0); LYMPHOCYTE # 0.7 TH/MM3 (1.0-4.8); MEAN CELL VOLUME 100.3 FL (80.0-100.0); MEAN CORPUSCULAR HEMOGLOBIN 33.2 PG (27.0-34.0); MEAN CORPUSCULAR HGB CONC 33.1 % (32.0-36.0); MONO % 13.6 % (0.0-8.0); NEUT % 67.5 % (16.0-70.0); PLATELET COUNT 156 TH/MM3 (150-450); RED BLOOD COUNT 2.61 MIL/MM3 (4.50-5.90); RED CELL DISTRIBUTION WIDTH 16.3 % (11.6-17.2); WHITE BLOOD COUNT 4.6 TH/MM3 (4.0-11.0)
[2017-05-18 07:08] LABS: ALT (GPT) 23 U/L (12-78); ANION GAP 8 MEQ/L (5-15); AST (GOT) 28 U/L (15-37); BICARBONATE 25.9 MEQ/L (21.0-32.0); BLOOD UREA NITROGEN 55 MG/DL (7-18); CHLORIDE 105 MEQ/L (98-107); GLOMERULAR FILTRATION RATE 40 ML/MIN (>89); POTASSIUM 4.2 MEQ/L (3.5-5.1); SODIUM (NA) 139 MEQ/L (136-145)
[2017-05-18 07:11] LABS: ALKALINE PHOSPHATASE 136 U/L (45-117); TOTAL BILIRUBIN ADULT 0.5 MG/DL (0.2-1.0)
[2017-05-18] MEDS: BUDESONIDE-FORMOTEROL 160/4.5 MCG INHALER INH SCH ×2 (09:12→19:58)
[2017-05-18] MEDS: DOCUSATE SODIUM 50 MG/SENNA 8.6 MG TAB PO SCH ×2 (09:12→19:58)
[2017-05-18] MEDS: PANTOPRAZOLE SOD 40 MG DELAYED RELEASE TAB PO SCH ×2 (09:12→19:57)
[2017-05-18] MEDS: FLUTICASONE 100 MCG/VILANTEROL 25 MCG INHALER INH SCH (09:12)
[2017-05-18] MEDS: SODIUM CHLORIDE 0.9% FLUSH 10 ML FLUSH IV FLUSH SCH ×2 (09:13→20:00)
--- NOTE | 2017-05-18 11:24 | HHI.NPPN ---
Subjective Renal Failure: Acute Interval History doing well, no complaints. Review of Systems General Constitutional: Fatigue Respiratory Lungs: SOB Cardiovascular Cardiac: Edema Objective Data Data 05/18/17 05/19/17 19:00 07:00 Intake Total 600 ml Balance 600 ml IV Total 600 ml Vital Signs Date Time Temp Pulse Resp B/P (MAP) Pulse Ox O2 Delivery O2 Flow Rate FiO2 05/18/17 07:45 97.2 97 18 123/59 (80) 99 05/18/17 04:48 96.6 101 19 143/58 (86) 92 05/18/17 04:27 98 05/18/17 00:40 96.1 102 18 118/61 (80) 98 05/18/17 00:18 99 05/17/17 20:35 96.6 104 18 133/61 (85) 95 05/17/17 20:18 100 05/17/17 19:44 100 Nasal Cannula 2.00 05/17/17 16:00 97.5 95 16 120/60 (80) 100 05/17/17 12:00 97.8 101 18 121/58 (79) 100 -: 05/18/17 0619 05/18/17 0619 Tubes & Lines: Barrientos Physical Exam General Appearance: Well Developed, No Acute Distress, Comfortable, Obese Throat Throat Exam: Oral Mucosa [place] & Moist Pulmonary Resp Exam: Breath Sounds Equal, No Distress, Rhonchi, Decreased Bases Cardiology CV Exam: Regular, Normal Sinus Rhythm Gastrointestinal/Abdomen GI Exam: Soft, Non-Tender, Positive Bowel Movement Genitourinary Exam: Sediment Musculoskeletal MS Exam: Normal Gait, Normal Tone, Good Strength Integumentary Skin Exam: Warm, Dry Extremeties Extremities Exam: Moderate Edema, Pitting Edema, Dependent Edema Neurologic Neuro Exam: Alert, Awake, Oriented Psychiatric Psych Exam: Appropriate Responses Assessment/Plan Discussed Condition With: Patient Assessment Summary: CORIN/Acute Renal Failure, Hypertension, CKD Stage III Electrolyte Assessment: Hyponatremia Problem List: (1) Acute renal failure ICD Codes: N17.9 - Acute kidney failure, unspecified Status: Acute Plan: He has baseline CKD 3; Creatinine 1.4, GFR 45 CORIN may be due to dehydration and NSAID use at home; he was also given Bactrim ( trimethoprim in Bactrim) prevents distal tubule creatinine secretion, causing increased serum levels of both. He was on 2 different loop diuretics. Renal function is better, GFR at baseline. I will stop IVF. He was strongly advised to avoid excessive diuretic use. Also advised him to avoid NSAIDs. In addition he needs to moderate ETOH habit. (2) Hyponatremia ICD Codes: E87.1 - Hypo-osmolality and hyponatremia Status: Acute Plan: urine osmolality, sodium, and uric acid suggesting hypovolemic hyponatremia Resolved. Plan I will sign off at this time. He can be discharged from renal standpoint. Barrientos can be removed. Jian Matute MD May 18, 2017 11:24
--- NOTE | 2017-05-18 11:28 | HHI.GIFU ---
Subjective Remarks Sitting up in his chair. No new complaints. On clear liquid diet today. Objective Vitals I&O Vital Signs Date Time Temp Pulse Resp B/P (MAP) Pulse Ox O2 Delivery O2 Flow Rate FiO2 05/18/17 07:45 97.2 97 18 123/59 (80) 99 05/18/17 04:48 96.6 101 19 143/58 (86) 92 05/18/17 04:27 98 05/18/17 00:40 96.1 102 18 118/61 (80) 98 05/18/17 00:18 99 05/17/17 20:35 96.6 104 18 133/61 (85) 95 05/17/17 20:18 100 05/17/17 19:44 100 Nasal Cannula 2.00 05/17/17 16:00 97.5 95 16 120/60 (80) 100 05/17/17 12:00 97.8 101 18 121/58 (79) 100 I/O 05/17/17 05/17/17 05/17/17 05/18/17 05/18/17 05/18/17 07:00 15:00 23:00 07:00 15:00 23:00 Intake Total 280 ml 1080 ml 420 ml 600 ml Output Total 1000 ml 1450 ml Balance 280 ml 80 ml -1030 ml 600 ml Intake Oral 1080 ml 420 ml IV Total 600 ml Packed Cells 250 ml Blood Product IV Normal Saline Flush 30 ml Output Urine Total 1000 ml 1450 ml # Bowel Movements 2 0 Laboratory Laboratory Tests Test 05/17/17 14:04 05/18/17 06:19 White Blood Count 4.7 4.6 Red Blood Count 2.69 2.61 Hemoglobin 8.6 8.7 Hematocrit 26.8 26.1 Mean Corpuscular Volume 99.7 100.3 Mean Corpuscular Hemoglobin 32.0 33.2 Mean Corpuscular Hemoglobin Concent 32.1 33.1 Red Cell Distribution Width 16.4 16.3 Platelet Count 170 156 Mean Platelet Volume 6.4 6.5 Blood Urea Nitrogen 65 55 Creatinine 2.24 1.73 Random Glucose 123 109 Calcium Level 8.7 8.5 Sodium Level 135 139 Potassium Level 4.3 4.2 Chloride Level 100 105 Carbon Dioxide Level 27.7 25.9 Anion Gap 7 8 Estimat Glomerular Filtration Rate 30 40 Neutrophils (%) (Auto) 67.5 Lymphocytes (%) (Auto) 14.3 Monocytes (%) (Auto) 13.6 Eosinophils (%) (Auto) 3.5 Basophils (%) (Auto) 1.1 Neutrophils # (Auto) 3.1 Lymphocytes # (Auto) 0.7 Monocytes # (Auto) 0.6 Eosinophils # (Auto) 0.2 Basophils # (Auto) 0.0 CBC Comment DIFF FINAL Differential Comment Total Protein 6.6 Albumin 3.0 Alkaline Phosphatase 136 Aspartate Amino Transf (AST/SGOT) 28 Alanine Aminotransferase (ALT/SGPT) 23 Total Bilirubin 0.5 Date/Time Source Procedure Growth Status 05/15/17 22:44 Stool Stool Stool Occult Blood ([facility]) - Final HEMOCCULT POSITIVE Complete 05/14/17 13:00 Urine Catheterized Urine Urine Culture - Final NO GROWTH IN 48 HOURS. Complete Imaging Last Impressions Chest X-Ray 05/14/17 1107 Signed Impressions: Service Date/Time: April 11:22 - CONCLUSION: Cardiomegaly. Clear lungs. Gonzalez Stewart Jr., MD Lung Scan- Nuclear Medicine 05/14/17 0000 Signed Impressions: Service Date/Time: , May 14, 2017 21:33 - CONCLUSION: Low probability for pulmonary embolus. No significant perfusion defects are seen. Renny Pace MD Lower Extremity Ultrasound 05/14/17 0000 Signed Impressions: Service Date/Time: , May 14, 2017 22:16 - CONCLUSION: No DVT is identified within either lower extremity. Renny Blackman MD Physical Exam HEENT: PERRLA; normocephalic; atraumatic; no jaundice. NECK: Neck is supple. CHEST: CTA. CARDIAC: RRR with no murmur gallop or rubs. ABDOMEN: Soft, obese, nondistended, nontender; bowel sounds are present x 4 quadrants EXTREMITIES: No clubbing, cyanosis, 4+ edema at bilateral legs and chronic skin changes noted SKIN: Normal; no rash; no jaundice. STUDENT ASSISTANT: No focal deficits; alert and oriented x 3 Assessment and Plan Plan ASSESSMENT: Anemia, rectal bleeding. History of ulcer in stomach. Reports 2 large formed stools that were dark. No abdominal pain or N/V. HH trending down, 7.7/23.9 (05/16 ). CBC ordered for today. COPD, O2 dependent. Stable. Denies shortness of breath. 05/18/17--No new complaints today. HH stable, 8.7/.1. On clear liquid diet today for E/C tomorrow. PLAN: - EGD/Colonoscopy Thursday. - Clear liquids today - NPO after MN tonight - Bowel prep today - Continue Protonix 40mg BID - Monitor HH, transfuse as necessary - Supportive care - Further recommendations to follow based on results of above. Patient seen and examined by Dr. Juarez and myself and this note is written on his behalf. Marjorie Deutsch May 18, 2017 11:28
--- NOTE | 2017-05-18 13:34 | HHI.PR ---
Subjective Remarks Denies cp/sob good urine output denies melena or blood per rectum Objective Vitals Vital Signs Date Time Temp Pulse Resp B/P (MAP) Pulse Ox O2 Delivery O2 Flow Rate FiO2 05/18/17 12:00 96.7 98 20 132/92 (105) 98 05/18/17 08:53 99 05/18/17 07:45 97.2 97 18 123/59 (80) 99 05/18/17 04:48 96.6 101 19 143/58 (86) 92 05/18/17 04:27 98 05/18/17 00:40 96.1 102 18 118/61 (80) 98 05/18/17 00:18 99 05/17/17 20:35 96.6 104 18 133/61 (85) 95 05/17/17 20:18 100 05/17/17 19:44 100 Nasal Cannula 2.00 05/17/17 16:00 97.5 95 16 120/60 (80) 100 I/O 05/17/17 05/17/17 05/17/17 05/18/17 05/18/17 05/18/17 07:00 15:00 23:00 07:00 15:00 23:00 Intake Total 280 ml 1080 ml 420 ml 600 ml Output Total 1000 ml 1450 ml Balance 280 ml 80 ml -1030 ml 600 ml Intake Oral 1080 ml 420 ml IV Total 600 ml Packed Cells 250 ml Blood Product IV Normal Saline Flush 30 ml Output Urine Total 1000 ml 1450 ml # Bowel Movements 2 0 Result Diagram: 05/18/17 0619 05/18/17 0619 Imaging Last Impressions Chest X-Ray 05/14/17 1107 Signed Impressions: Service Date/Time: April 11:22 - CONCLUSION: Cardiomegaly. Clear lungs. Gonzalez Stewart Jr., MD Lung Scan-V Nuclear Medicine 05/14/17 0000 Signed Impressions: Service Date/Time: April 21:33 - CONCLUSION: Low probability for pulmonary embolus. No significant perfusion defects are seen. Renny Pace MD Lower Extremity Ultrasound 05/14/17 0000 Signed Impressions: Service Date/Time: April 22:16 - CONCLUSION: No DVT is identified within either lower extremity. Renny Blackman MD Objective Remarks AAOx3, sitting in chair, nad Lungs clear to auscultation BL Abdomen obese, soft, NT. Meadows catheter in place w yellow urine. no edema in lower extremities dry Bilateral lower extremities Procedures none Medications and IVs Current Medications Medications (Trade) Dose Ordered Sig/Delilah Route Start Time Stop Time Status Last Admin (Ativan) 1 mg Q4H PRN PO 05/14/17 13:00 05/17/17 20:23 (Ativan Inj) 1 mg Q4H PRN IV PUSH 05/14/17 13:00 05/14/17 17:53 (Ativan) 2 mg Q2H PRN PO 05/14/17 13:00 (Ativan Inj) 2 mg Q2H PRN IV PUSH 05/14/17 13:00 05/14/17 15:53 (Ativan Inj) 2 mg Q1H PRN IV PUSH 05/14/17 13:00 (Ativan Inj) 2 mg Q15M PRN IV PUSH 05/14/17 13:00 (NS Flush) 2 ml UNSCH PRN IV FLUSH 05/14/17 13:00 (NS Flush) 2 ml BID IV FLUSH 05/14/17 21:00 05/18/17 09:13 (Tylenol) 650 mg Q4H PRN PO 05/14/17 13:00 (Zofran Inj) 4 mg Q6H PRN IVP 05/14/17 13:00 (Narcan Inj) 0.4 mg UNSCH PRN IV 05/14/17 13:00 (Coco-Colace) 1 tab BID PO 05/14/17 21:00 05/18/17 09:12 (Milk Of Magnesia Liq) 30 ml Q12H PRN PO 05/14/17 13:00 (Senokot) 17.2 mg Q12H PRN PO 05/14/17 13:00 (Dulcolax Supp) 10 mg DAILY PRN RECTAL 05/14/17 13:00 (Lactulose Liq) 30 ml DAILY PRN PO 05/14/17 13:00 (Lipitor) 40 mg HS PO 05/14/17 22:00 05/17/17 20:20 (Symbicort 160-4.5 Inh) 2 puff Q12HR INH 05/14/17 22:00 05/18/17 09:12 (Breo Ellipta 100-25 Inh) 1 puff DAILY INH 05/14/17 22:00 05/18/17 09:12 (Xarelto) 20 mg AC DINNER PO 05/15/17 16:00 Future Hold (Atrovent Neb) 0.5 mg Q6HR NEB PRN NEB 05/14/17 21:45 (Protonix) 40 mg Q12HR PO 05/16/17 21:00 05/18/17 09:12 (Tylenol) 650 mg Q4H PRN PO 05/16/17 13:30 05/16/17 23:01 (Benadryl) 25 mg Q4H PRN PO 05/16/17 13:30 05/16/17 23:01 (Colyte Liq) 4,000 ml ONCE ONCE PO 05/18/17 16:00 05/18/17 16:01 Urinary Catheter: No Vascular Central Line Catheter: No A/P Problem List: (1) Acute renal failure ICD Code: N17.9 - Acute kidney failure, unspecified Status: Acute Plan: Acute kidney injury on chronic kidney disease stage III. Baseline creatinine is around 1.6-1.7. Acute kidney injury possible combination of over diureses with possible Bactrim use. Creatinine on admission 5.21 Treated with half-normal saline with sodium bicarbonate due to ongoing metabolic acidosis. Metabolic acidosis has resolved and creatinine is trending down. Creatinine 4.81 today. Continue to monitor BMP, strict I's and O's, avoid nephrotoxins. Nephrology consulted and following patient. Appreciate recommendations. Previously on half-normal saline with bicarbonate, discontinued on 05/15 and started normal saline. T 05/17 Patient has good urine output. Creatinine is trending down. Fu nephrology recommendations. Continue to monitor BMP. 05/18 Creatinine continues to trend down. Stop IV fluids and Dc meadows catheter. (2) Hyponatremia ICD Code: E87.1 - Hypo-osmolality and hyponatremia Status: Acute Plan: Sodium was slightly improved. Likely secondary to over diuresis and dehydration and hypovolemia. Continue IV normal saline and continue to monitor BMP. 05/17 Sodium improving - 130 on 05/16. Continue to monitor BMP. 05/18 Resolved - DC IV fluids. (3) Metabolic acidosis ICD Code: E87.2 - Acidosis Status: Resolved Plan: And about acidosis likely secondary to acute renal failure, treated with half-normal saline with bicarbonate. Metabolic acidosis resolved administration of half-normal saline with sodium bicarbonate. 05/18 Dc IV fluids. (4) COPD (chronic obstructive pulmonary disease) ICD Code: J44.9 - Chronic obstructive pulmonary disease, unspecified Status: Chronic Plan: Patient is oxygen dependent at home. Currently on 2 L cannula which is the patient's baseline. There is no evidence of acute exacerbation. Continue Symbicort, Breo Ellipta and Atrovent nebulizer treatments. (5) CHF (congestive heart failure) ICD Code: I50.9 - Heart failure, unspecified Status: Chronic Plan: SEems stable. CXR Reviewed by me shows cardiomegaly and clear lungs. Diuretics held on admission - continue to hold. Echocardiogram performed on date 02/03/17 showed increased wall thickness in the Moderate LVH. Systolic function was normal with an EF of 65%. (6) A-fib ICD Code: I48.91 - Unspecified atrial fibrillation Status: Chronic Plan: EKG on admission showed sinus rhythm with first-degree AV block, right bundle branch block. 05/17 all anticoagulation is on hold secondary to GI bleed. (7) SOB (shortness of breath) ICD Code: R06.02 - Shortness of breath Status: Resolved Plan: Transfer breath improving. Chest x-ray without signs of infection or volume overload. VQ scan ordered and was low probability for pulmonary embolus and no significant perfusion defects seen. Lower extremities venous Dopplers negative for DVT. Suspect patient's sensation of shortness of breath and slight tachypnea was secondary to respiratory compensation to metabolic acidosis which now has resolved. (8) Anemia ICD Code: D64.9 - Anemia, unspecified Status: Acute Plan: Acute on chronic anemia likely secondary to GI bleed since patient is guaiac (+) and . The patient has history of GI bleed and a gastric ulcer diagnosed on an EGD performed at this institution on August 2016. 05/17 Patient is sp transfusion of 1 unit PRBC. Labs pending. Continue to monitor for active bleeding which has resolved for now. Continue to monitor CBC and will transfuse as needed for hemoglobin less than 7 or hemoglobin less than 8 if active bleeding. 05/18 For EGD/colonoscopy in am - no further bleeding and hemoglobin stable. (9) GI bleed ICD Code: K92.2 - Gastrointestinal hemorrhage, unspecified Status: Acute Plan: The patient complaint of bright red blood per rectum on 05/16. Patient previously on the correlation with Xarelto which was held and heparin IV drip ordered, however never started since the patient was Hemoccult positive and had GI bleed. Patient was already on PPI with Protonix 40 mg by mouth daily. Oral Protonix was discontinued and the patient was started on Protonix IV twice a day. Patient has had an EGD on August 2016 were a gastric ulcer was found. 05/17 GI consulted. Discussed case over the phone with Dr. Juarez and the patient needs an EGD and colonoscopy, however it was decided to wait for clinical improvement of acute kidney injury before proceeding with the procedure. 05/18 For EGD and colonoscopy in am. Assessment and Plan Prophylaxis: PPI. DVT prophylaxis: Continue SCDs, chemoprophylaxis contraindicated due to GI bleed and anemia. Discharge Planning Continue to monitor in the medical floor. Patient has GI bleed, GI consult pending, still on IV fluids for CORIN. Problem Qualifiers (1) COPD (chronic obstructive pulmonary disease): Qualified Codes: J44.9 - Chronic obstructive pulmonary disease, unspecified (2) CHF (congestive heart failure): Qualified Codes: I50.32 - Chronic diastolic (congestive) heart failure (3) A-fib: Qualified Codes: I48.0 - Paroxysmal atrial fibrillation (4) Anemia: Doug Dowell MD May 18, 2017 13:34
[2017-05-18] MEDS ORDERED: PEG (High)/E-LYTE SOLN 4000 ML BTL PO ONE (16:00)
[2017-05-18] MEDS: LORazepam 1 MG TAB PO PRN (16:26)
[2017-05-18] MEDS: ATORVASTATIN 40 MG TAB PO SCH (19:57)
[2017-05-19] VITALS (11 sets, daily range): BP systolic 115–148; BP diastolic 60–83; PULSE 80–121; RESP 18–19; TEMP 95.7–97.7; O2SAT 90–100
[2017-05-19] MEDS: SODIUM CHLORIDE 0.9% FLUSH 10 ML FLUSH IV FLUSH SCH ×2 (09:00→21:43)
[2017-05-19] MEDS: PANTOPRAZOLE SOD 40 MG DELAYED RELEASE TAB PO SCH ×2 (09:00→21:36)
[2017-05-19] MEDS: DOCUSATE SODIUM 50 MG/SENNA 8.6 MG TAB PO SCH ×2 (09:00→21:43)
--- NOTE | 2017-05-19 11:23 | HHI.PR ---
Subjective Remarks c/o weeping in right leg denies cp/sob denies fevers chills feels hungry Objective Vitals Vital Signs Date Time Temp Pulse Resp B/P (MAP) Pulse Ox O2 Delivery O2 Flow Rate FiO2 05/19/17 08:00 97.6 84 18 136/63 (87) 100 05/19/17 04:45 96.1 110 18 115/61 (79) 96 05/19/17 00:30 96.3 117 18 115/60 (78) 90 05/18/17 20:35 96.1 99 18 132/71 (91) 97 05/18/17 20:06 21 05/18/17 16:54 91 05/18/17 16:00 97.0 99 20 129/66 (87) 96 05/18/17 12:00 96.7 98 20 132/92 (105) 98 I/O 05/18/17 05/18/17 05/18/17 05/19/17 05/19/17 05/19/17 07:00 15:00 23:00 07:00 15:00 23:00 Intake Total 420 ml 2000 ml 1000 ml 480 ml Output Total 1450 ml 900 ml Balance -1030 ml 1100 ml 1000 ml 480 ml Intake Oral 420 ml 1400 ml 480 ml IV Total 600 ml 1000 ml Output Urine Total 1450 ml 900 ml # Voids 3 # Bowel Movements 0 3 Result Diagram: 05/18/17 0619 05/18/17 0619 Imaging Last Impressions Chest X-Ray 05/14/17 1107 Signed Impressions: Service Date/Time: April 11:22 - CONCLUSION: Cardiomegaly. Clear lungs. Gonzalez Stewart Jr., MD Lung Scan- Nuclear Medicine 05/14/17 0000 Signed Impressions: Service Date/Time: April 21:33 - CONCLUSION: Low probability for pulmonary embolus. No significant perfusion defects are seen. Renny Pace MD Lower Extremity Ultrasound 05/14/17 0000 Signed Impressions: Service Date/Time: April 22:16 - CONCLUSION: No DVT is identified within either lower extremity. Renny Blackman MD Objective Remarks AAOx3, sitting in chair, nad Lungs clear to auscultation BL Abdomen obese, soft, NT. Barrientos catheter in place w yellow urine. no edema in lower extremities dry Bilateral lower extremities Procedures none Medications and IVs Current Medications Medications (Trade) Dose Ordered Sig/Delilah Route Start Time Stop Time Status Last Admin (Ativan) 1 mg Q4H PRN PO 05/14/17 13:00 05/18/17 16:26 (Ativan Inj) 1 mg Q4H PRN IV PUSH 05/14/17 13:00 05/14/17 17:53 (Ativan) 2 mg Q2H PRN PO 05/14/17 13:00 (Ativan Inj) 2 mg Q2H PRN IV PUSH 05/14/17 13:00 05/14/17 15:53 (Ativan Inj) 2 mg Q1H PRN IV PUSH 05/14/17 13:00 (Ativan Inj) 2 mg Q15M PRN IV PUSH 05/14/17 13:00 (NS Flush) 2 ml UNSCH PRN IV FLUSH 05/14/17 13:00 (NS Flush) 2 ml BID IV FLUSH 05/14/17 21:00 05/18/17 20:00 (Tylenol) 650 mg Q4H PRN PO 05/14/17 13:00 (Zofran Inj) 4 mg Q6H PRN IVP 05/14/17 13:00 (Narcan Inj) 0.4 mg UNSCH PRN IV 05/14/17 13:00 (Coco-Colace) 1 tab BID PO 05/14/17 21:00 05/18/17 09:12 (Milk Of Magnesia Liq) 30 ml Q12H PRN PO 05/14/17 13:00 (Senokot) 17.2 mg Q12H PRN PO 05/14/17 13:00 (Dulcolax Supp) 10 mg DAILY PRN RECTAL 05/14/17 13:00 (Lactulose Liq) 30 ml DAILY PRN PO 05/14/17 13:00 (Lipitor) 40 mg HS PO 05/14/17 22:00 05/18/17 19:57 (Symbicort 160-4.5 Inh) 2 puff Q12HR INH 05/14/17 22:00 05/18/17 19:58 (Breo Ellipta 100-25 Inh) 1 puff DAILY INH 05/14/17 22:00 05/18/17 09:12 (Xarelto) 20 mg AC DINNER PO 05/15/17 16:00 Future Hold (Atrovent Neb) 0.5 mg Q6HR NEB PRN NEB 05/14/17 21:45 (Protonix) 40 mg Q12HR PO 05/16/17 21:00 05/18/17 19:57 (Tylenol) 650 mg Q4H PRN PO 05/16/17 13:30 05/16/17 23:01 (Benadryl) 25 mg Q4H PRN PO 05/16/17 13:30 05/16/17 23:01 Urinary Catheter: No Vascular Central Line Catheter: No A/P Problem List: (1) Acute renal failure ICD Code: N17.9 - Acute kidney failure, unspecified Status: Acute (2) Hyponatremia ICD Code: E87.1 - Hypo-osmolality and hyponatremia Status: Acute (3) Metabolic acidosis ICD Code: E87.2 - Acidosis Status: Resolved (4) COPD (chronic obstructive pulmonary disease) ICD Code: J44.9 - Chronic obstructive pulmonary disease, unspecified Status: Chronic (5) CHF (congestive heart failure) ICD Code: I50.9 - Heart failure, unspecified Status: Chronic (6) A-fib ICD Code: I48.91 - Unspecified atrial fibrillation Status: Chronic (7) SOB (shortness of breath) ICD Code: R06.02 - Shortness of breath Status: Resolved (8) Anemia ICD Code: D64.9 - Anemia, unspecified Status: Acute (9) GI bleed ICD Code: K92.2 - Gastrointestinal hemorrhage, unspecified Status: Acute (10) Positive blood cultures ICD Code: R78.81 - Bacteremia Plan: Upon review of medical records. The patient had positive blood cultures on 05/08 on a recent visit to the emergency department. The patient grew staph epidermidis and staph caudally is negative in 2 different bottles. These possibly a contaminant, however will repeat blood cultures and follow. Patient has been afebrile, there are no active signs of infection. Assessment and Plan (1) Acute renal failure Plan: Acute kidney injury on chronic kidney disease stage III. Baseline creatinine is around 1.6-1.7. Acute kidney injury possible combination of over diureses with possible Bactrim use. Creatinine on admission 5.21. Initially the patient was treated with half- normal saline with sodium bicarbonate due to ongoing metabolic acidosis. Metabolic acidosis resolved and creatinine started trending down. IV fluids were changed from half-normal saline plus sodium bicarbonate to normal saline after which the creatinine trended down to the patient's baseline. Nephrology was consulted and followed the patient. Nephrology has signed off. 05/19 patient has some fluid weeping from the right lower extremity. I will start the patient on furosemide. Continue to monitor BMP, monitor strict input and output, avoid nephrotoxins. Advised patient to avoid NSAIDs. (2) Hyponatremia Plan: Severe hyponatremia with a sodium of 122 on admission. This was treated with IV fluids in the form of normal saline and corrected gradually. Hyponatremia likely secondary to hypovolemic hyponatremia. (3) Metabolic acidosis Plan: Metabolic acidosis likely secondary to acute renal failure, treated with half-normal saline with bicarbonate. Metabolic acidosis resolved administration of half-normal saline with sodium bicarbonate. 05/18 Dc IV fluids. (4) COPD (chronic obstructive pulmonary disease) Plan: Patient is oxygen dependent at home. Currently on 2 L cannula which is the patient's baseline. There is no evidence of acute exacerbation. Continue Symbicort, Breo Ellipta and Atrovent nebulizer treatments. (5) CHF (congestive heart failure) Plan: Seems stable. CXR Reviewed by me shows cardiomegaly and clear lungs. Echocardiogram performed on date 02/03/17 showed increased wall thickness in the Moderate LVH. Systolic function was normal with an EF of 65%. Diuretics held on admission - resume Lasix - DC Bumex 05/19. (6) A-fib Plan: EKG on admission showed sinus rhythm with first-degree AV block, right bundle branch block. All anticoagulation is on hold secondary to GI bleed. 05/19 Will resume anticoagulation after cleared by GI. (7) SOB (shortness of breath) Plan: Transfer breath improving. Chest x-ray without signs of infection or volume overload. VQ scan ordered and was low probability for pulmonary embolus and no significant perfusion defects seen. Lower extremities venous Dopplers negative for DVT. Suspect patient's sensation of shortness of breath and slight tachypnea was secondary to respiratory compensation to metabolic acidosis which now has resolved. (8) Anemia Plan: Acute on chronic anemia likely secondary to GI bleed since patient is guaiac (+) and . The patient has history of GI bleed and a gastric ulcer diagnosed on an EGD performed at this institution on August 2016. 05/17 Patient is sp transfusion of 1 unit PRBC. Labs pending. Continue to monitor for active bleeding which has resolved for now. Continue to monitor CBC and will transfuse as needed for hemoglobin less than 7 or hemoglobin less than 8 if active bleeding. 05/18 For EGD/colonoscopy today - no further bleeding and hemoglobin stable. (9) GI bleed Plan: The patient complaint of bright red blood per rectum on 05/16. Patient previously on the correlation with Xarelto which was held and heparin IV drip ordered, however never started since the patient was Hemoccult positive and had GI bleed. Patient was already on PPI with Protonix 40 mg by mouth daily. Oral Protonix was discontinued and the patient was started on Protonix IV twice a day. Patient has had an EGD on August 2016 were a gastric ulcer was found. 05/17 GI consulted. Discussed case over the phone with Dr. Juarez and the patient needs an EGD and colonoscopy, however it was decided to wait for clinical improvement of acute kidney injury before proceeding with the procedure. 05/19 for EGD, colonoscopy today. Prophylaxis: PPI. DVT prophylaxis: Continue SCDs, chemoprophylaxis contraindicated due to GI bleed and anemia. Discharge Planning DC pending EGD colonoscopy and GI clearance. Problem Qualifiers (1) COPD (chronic obstructive pulmonary disease): Qualified Codes: J44.9 - Chronic obstructive pulmonary disease, unspecified (2) CHF (congestive heart failure): Qualified Codes: I50.32 - Chronic diastolic (congestive) heart failure (3) A-fib: Qualified Codes: I48.0 - Paroxysmal atrial fibrillation (4) Anemia: Doug Dowell MD May 19, 2017 11:23
[2017-05-19] MEDS ORDERED: LACTATED RINGER'S 1000 ML INJ 1,000 ML IV ONE (12:00)
[2017-05-19 12:53] LABS: HEMATOCRIT 28.1 % (39.0-51.0); MEAN CELL VOLUME 99.3 FL (80.0-100.0); MEAN CORPUSCULAR HEMOGLOBIN 32.2 PG (27.0-34.0); MEAN CORPUSCULAR HGB CONC 32.5 % (32.0-36.0); PLATELET COUNT 205 TH/MM3 (150-450); RED BLOOD COUNT 2.83 MIL/MM3 (4.50-5.90); RED CELL DISTRIBUTION WIDTH 16.6 % (11.6-17.2); REVIEW FLAG FINAL; WHITE BLOOD COUNT 5.3 TH/MM3 (4.0-11.0)
[2017-05-19 13:24] LABS: BICARBONATE 29.3 MEQ/L (21.0-32.0); POTASSIUM 3.8 MEQ/L (3.5-5.1)
[2017-05-19] MEDS: FLUTICASONE 100 MCG/VILANTEROL 25 MCG INHALER INH SCH (14:25)
[2017-05-19] MEDS: BUDESONIDE-FORMOTEROL 160/4.5 MCG INHALER INH SCH ×2 (14:26→21:37)
[2017-05-19] MEDS ORDERED: PROPOFOL 200 MG/20 ML AMP IV PUSH ONE (15:13)
--- NOTE | 2017-05-19 15:36 | HHI.GIFU ---
Subjective Remarks EGD with biopsy and colonoscopy performed. No bleeding lesions seen other than small hemorrhoids. Gerd Bx at [facility]. Mild chronic gastritis. Bx. Objective Vitals I&O Vital Signs Date Time Temp Pulse Resp B/P (MAP) Pulse Ox O2 Delivery O2 Flow Rate FiO2 05/19/17 12:00 97.7 89 18 132/67 (88) 100 05/19/17 11:58 94 05/19/17 08:00 97.6 84 18 136/63 (87) 100 05/19/17 04:45 96.1 110 18 115/61 (79) 96 05/19/17 00:30 96.3 117 18 115/60 (78) 90 05/18/17 20:35 96.1 99 18 132/71 (91) 97 05/18/17 20:06 21 05/18/17 16:54 91 05/18/17 16:00 97.0 99 20 129/66 (87) 96 I/O 05/18/17 05/18/17 05/18/17 05/19/17 05/19/17 05/19/17 06:59 14:59 22:59 06:59 14:59 22:59 Intake Total 420 ml 2000 ml 1000 ml 480 ml 500 ml Output Total 1450 ml 900 ml Balance -1030 ml 1100 ml 1000 ml 480 ml 500 ml Intake Oral 420 ml 1400 ml 480 ml IV Total 600 ml 1000 ml Other 500 ml Output Urine Total 1450 ml 900 ml # Voids 3 # Bowel Movements 0 3 Laboratory Laboratory Tests Test 05/19/17 12:24 White Blood Count 5.3 Red Blood Count 2.83 Hemoglobin 9.1 Hematocrit 28.1 Mean Corpuscular Volume 99.3 Mean Corpuscular Hemoglobin 32.2 Mean Corpuscular Hemoglobin Concent 32.5 Red Cell Distribution Width 16.6 Platelet Count 205 Mean Platelet Volume 6.3 Blood Urea Nitrogen 33 Creatinine 1.23 Random Glucose 109 Calcium Level 8.8 Sodium Level 138 Potassium Level 3.8 Chloride Level 102 Carbon Dioxide Level 29.3 Anion Gap 7 Estimat Glomerular Filtration Rate 59 Date/Time Source Procedure Growth Status 05/15/17 22:44 Stool Stool Stool Occult Blood ([facility]) - Final HEMOCCULT POSITIVE Complete 05/14/17 13:00 Urine Catheterized Urine Urine Culture - Final NO GROWTH IN 48 HOURS. Complete Physical Exam HEENT: PERRLA; normocephalic; atraumatic; no jaundice. NECK: Neck is supple. CHEST: CTA. CARDIAC: RRR with no murmur gallop or rubs. ABDOMEN: Soft, obese, nondistended, nontender; bowel sounds are present x 4 quadrants EXTREMITIES: No clubbing, cyanosis, 4+ edema at bilateral legs and chronic skin changes noted SKIN: Normal; no rash; no jaundice. [employer]: No focal deficits; alert and oriented x 3 Assessment and Plan Plan ASSESSMENT: Anemia, rectal bleeding. History of ulcer in stomach. Reports 2 large formed stools that were dark. No abdominal pain or N/V. HH trending down, 7.7/23.9 (05/16 ). CBC ordered for today. COPD, O2 dependent. Stable. Denies shortness of breath. 05/18/17--No new complaints today. HH stable, 8.7/26.1. On clear liquid diet today for E/C tomorrow. EGD and colonoscopy performed. No ulcer or cancer. Hemorrhoids and GERD and gAstritis. PLAN: - Regular diet - Continue Protonix 40mg Daily - Monitor HH, transfuse as necessary - Supportive care Justino Juarez MD May 19, 2017 15:36
[2017-05-19] MEDS ORDERED: DO NOT ADM ANY ANTICOAGULANT DRUGS PRN (21:15)
[2017-05-19] MEDS: ATORVASTATIN 40 MG TAB PO SCH (21:37)
[2017-05-19] MEDS: LORazepam 1 MG TAB PO PRN (21:37)
[2017-05-20] VITALS (8 sets, daily range): BP systolic 121–135; BP diastolic 65–81; PULSE 98–115; RESP 18–20; TEMP 96.1–97.9; O2SAT 97–100
[2017-05-20] MEDS: BUDESONIDE-FORMOTEROL 160/4.5 MCG INHALER INH SCH (08:56)
[2017-05-20] MEDS: FLUTICASONE 100 MCG/VILANTEROL 25 MCG INHALER INH SCH (08:56)
[2017-05-20] MEDS: PANTOPRAZOLE SOD 40 MG DELAYED RELEASE TAB PO SCH (08:56)
[2017-05-20] MEDS: DOCUSATE SODIUM 50 MG/SENNA 8.6 MG TAB PO SCH (08:56)
[2017-05-20] MEDS: SODIUM CHLORIDE 0.9% FLUSH 10 ML FLUSH IV FLUSH SCH (08:57)
[2017-05-20 11:06] LABS: HEMATOCRIT 28.2 % (39.0-51.0); MEAN CELL VOLUME 100.5 FL (80.0-100.0); MEAN CORPUSCULAR HGB CONC 31.8 % (32.0-36.0); PLATELET COUNT 188 TH/MM3 (150-450); RED CELL DISTRIBUTION WIDTH 16.2 % (11.6-17.2); REVIEW FLAG FINAL; WHITE BLOOD COUNT 5.7 TH/MM3 (4.0-11.0)
[2017-05-20 11:38] LABS: BICARBONATE 28.5 MEQ/L (21.0-32.0)
[2017-05-20] MEDS ORDERED: PANT40TA3 PO (11:56)
--- NOTE | 2017-05-20 11:57 | HHI.DCPOC ---
Discharge Care Plan Diagnosis: (1) Hyponatremia (2) GI bleed (3) Anemia (4) Metabolic acidosis (5) A-fib (6) CHF (congestive heart failure) (7) SOB (shortness of breath) (8) COPD (chronic obstructive pulmonary disease) (9) Acute renal failure Goals to Promote Your Health * To prevent worsening of your condition and complications * To maintain your health at the optimal level Directions to Meet Your Goals Take your medications as prescribed Follow your dietary instruction Follow activity as directed Keep your appointments as scheduled Take your immunizations and boosters as scheduled If your symptoms worsen call your PCP, if no PCP go to Urgent Care Center or Emergency Room Smoking is Dangerous to Your Health. Avoid second hand smoke Call the 24-hour hour crisis hotline for domestic abuse at Doug Dowell MD May 20, 2017 11:57
--- NOTE | 2017-05-20 12:12 | HHI.FF ---
Face to Face Verification Diagnosis: (1) SOB (shortness of breath) (2) CHF (congestive heart failure) (3) A-fib (4) Acute renal failure (5) COPD (chronic obstructive pulmonary disease) Physical Therapy Order: Improve ambulation, Strength and gait training Home Health Nursing Order: Signs/symptoms of disease process CHF education Medication education-adverse effect Nursing assessment with vital signs I have seen patient Zeeshan Nix on 05/20/17. My clinical findings support the need for the requested home health care services because: Patient has SOB Deconditioned w/ increased weakness Need for psychosocial assistance I certify that my clinical findings support that this patient is homebound because: Unsteady gait/balance Unsafe to leave home unassisted Unable to use public transportation Doug Dowell MD May 20, 2017 12:12
--- NOTE | 2017-05-20 12:13 | HHI.DS ---
Discharge Summary Admission Date May 14, 2017 at 12:57 Discharge Date: May 20, 2017 Admitting Diagnosis severe hyponatremia, CORIN on chronic renal insufficiency (1) Acute renal failure ICD Code: N17.9 - Acute kidney failure, unspecified Diagnosis: Principal Status: Acute (2) Hyponatremia ICD Code: E87.1 - Hypo-osmolality and hyponatremia Diagnosis: Principal Status: Acute (3) Metabolic acidosis ICD Code: E87.2 - Acidosis Diagnosis: Principal Status: Resolved (4) COPD (chronic obstructive pulmonary disease) ICD Code: J44.9 - Chronic obstructive pulmonary disease, unspecified Diagnosis: Principal Status: Chronic (5) CHF (congestive heart failure) ICD Code: I50.9 - Heart failure, unspecified Diagnosis: Principal Status: Chronic (6) A-fib ICD Code: I48.91 - Unspecified atrial fibrillation Diagnosis: Principal Status: Chronic (7) SOB (shortness of breath) ICD Code: R06.02 - Shortness of breath Diagnosis: Principal Status: Resolved (8) Anemia ICD Code: D64.9 - Anemia, unspecified Diagnosis: Principal Status: Acute (9) GI bleed ICD Code: K92.2 - Gastrointestinal hemorrhage, unspecified Diagnosis: Principal Status: Acute (10) Positive blood cultures ICD Code: R78.81 - Bacteremia Diagnosis: Principal Procedures EGD/Colonoscopy: Gastritis, irregular Z line, normal colon. Brief History - From Admission This is a 61 yo male with pmh of HTN, Hyperlipidemia, Atrial fibrillation, renal insufficiency, prostate cancer sp radiation and chemotherapy, 02 dependent COPD, CAD who had been recently hospitalized and discharged recently to home after being treated for severe hyponatremia and Bilateral lower extremity cellulitis. As per discharge documentation, the patient was discharged on Bactrim and Augmentin. The patient presents c/o worsening sob associated with nausea despite being on his home oxygen. The patient denies chest pain, fevers, chills, abdominal pain, dysura, dizziness, melena, hematochezia but states has noted red discoloration of the urine as well as this being very concentrated. Denies difficulty urinating. CBC/BMP: 05/20/17 1024 05/20/17 1024 Significant Findings Laboratory Tests Test 05/17/17 14:04 05/18/17 06:19 05/19/17 12:24 05/20/17 10:24 Red Blood Count 2.69 MIL/MM3 (4.50-5.90) 2.61 MIL/MM3 (4.50-5.90) 2.83 MIL/MM3 (4.50-5.90) 2.80 MIL/MM3 (4.50-5.90) Hemoglobin 8.6 GM/DL (13.0-17.0) 8.7 GM/DL (13.0-17.0) 9.1 GM/DL (13.0-17.0) 9.0 GM/DL (13.0-17.0) Hematocrit 26.8 % (39.0-51.0) 26.1 % (39.0-51.0) 28.1 % (39.0-51.0) 28.2 % (39.0-51.0) Mean Platelet Volume 6.4 FL (7.0-11.0) 6.5 FL (7.0-11.0) 6.3 FL (7.0-11.0) 6.3 FL (7.0-11.0) Blood Urea Nitrogen 65 MG/DL (7-18) 55 MG/DL (7-18) 33 MG/DL (7-18) 26 MG/DL (7-18) Creatinine 2.24 MG/DL (0.60-1.30) 1.73 MG/DL (0.60-1.30) Random Glucose 123 MG/DL (74-106) 109 MG/DL (74-106) 109 MG/DL (74-106) Sodium Level 135 MEQ/L (136-145) Estimat Glomerular Filtration Rate 30 ML/MIN (>89) 40 ML/MIN (>89) 59 ML/MIN (>89) 59 ML/MIN (>89) Mean Corpuscular Volume 100.3 FL (80.0-100.0) 100.5 FL (80.0-100.0) Monocytes (%) (Auto) 13.6 % (0.0-8.0) Lymphocytes # (Auto) 0.7 TH/MM3 (1.0-4.8) Albumin 3.0 GM/DL (3.4-5.0) Alkaline Phosphatase 136 U/L (45-117) Mean Corpuscular Hemoglobin Concent 31.8 % (32.0-36.0) Imaging Last Impressions Chest X-Ray 05/14/17 1107 Signed Impressions: Service Date/Time: , May 14, 2017 11:22 - CONCLUSION: Cardiomegaly. Clear lungs. Gonzalez Stewart Jr., MD Lung Scan-VQ Nuclear Medicine 05/14/17 0000 Signed Impressions: Service Date/Time: , May 14, 2017 21:33 - CONCLUSION: Low probability for pulmonary embolus. No significant perfusion defects are seen. Renny Pace MD Lower Extremity Ultrasound 05/14/17 0000 Signed Impressions: Service Date/Time: , May 14, 2017 22:16 - CONCLUSION: No DVT is identified within either lower extremity. Renny Blackman MD PE at Discharge AAOx3, sitting in chair, nad Lungs clear to auscultation BL Abdomen obese, soft, NT. Barrientos catheter in place w yellow urine. no edema in lower extremities dry Bilateral lower extremities Pt update on day of discharge No further bleeding. patient denies abdominal pain, nausea or vomiting. Denies chest pain, sob. Hemoglobin stable. Hospital Course (1) Acute renal failure Acute kidney injury on chronic kidney disease stage III. Baseline creatinine is around 1.6-1.7. Acute kidney injury possible combination of over diureses with possible Bactrim use. Creatinine on admission 5.21. Initially the patient was treated with half- normal saline with sodium bicarbonate due to ongoing metabolic acidosis. Metabolic acidosis resolved and creatinine started trending down. IV fluids were changed from half-normal saline plus sodium bicarbonate to normal saline after which the creatinine trended down to the patient's baseline. Nephrology was consulted and followed the patient. Nephrology has signed off. Resumed Lasix on 05/19 due to some edma in lower extremities and fluid weeping from right lower extremity. Advised patient to avoid NSAIDs. (2) Hyponatremia Severe hyponatremia with a sodium of 122 on admission. This was treated with IV fluids in the form of normal saline and corrected gradually. Hyponatremia likely secondary to hypovolemic hyponatremia. (3) Metabolic acidosis Metabolic acidosis likely secondary to acute renal failure, treated with half- normal saline with bicarbonate. Metabolic acidosis resolved administration of half-normal saline with sodium bicarbonate. 05/18 Dc IV fluids. (4) COPD (chronic obstructive pulmonary disease) Plan: Patient is oxygen dependent at home. Currently on 2 L cannula which is the patient's baseline. There is no evidence of acute exacerbation. Continue Symbicort, Breo Ellipta and Atrovent nebulizer treatments. (5) CHF (congestive heart failure) CXR Reviewed by me showed cardiomegaly and clear lungs. Echocardiogram performed on date 02/03/17 showed increased wall thickness in the Moderate LVH. Systolic function was normal with an EF of 65%. Diuretics held on admission - resume Lasix - DC Bumex 05/19. (6) A-fib EKG on admission showed sinus rhythm with first-degree AV block, right bundle branch block. All anticoagulation is on hold secondary to GI bleed. Resumed anticoagulation after cleared by GI. (7) SOB (shortness of breath) Transfer breath improving. Chest x-ray without signs of infection or volume overload. VQ scan ordered and was low probability for pulmonary embolus and no significant perfusion defects seen. Lower extremities venous Dopplers negative for DVT. Suspect patient's sensation of shortness of breath and slight tachypnea was secondary to respiratory compensation to metabolic acidosis which now has resolved. (8) Anemia Plan: Acute on chronic anemia likely secondary to GI bleed since patient is guaiac (+) and . The patient has history of GI bleed and a gastric ulcer diagnosed on an EGD performed at this institution on August 2016. Patient is sp transfusion of 1 unit PRBC. Monitored CBC and for active bleeding. Sp EGD/Colonoscopy which showed gastritis and irregular Z line. (9) GI bleed The patient complaint of bright red blood per rectum on 05/16. Patient previously on the correlation with Xarelto which was held and heparin IV drip ordered, however never started since the patient was Hemoccult positive and had GI bleed. Patient was already on PPI with Protonix 40 mg by mouth daily. Oral Protonix was discontinued and the patient was started on Protonix IV twice a day. Patient has had an EGD on August 2016 were a gastric ulcer was found. 05/17 GI consulted. Discussed case over the phone with Dr. Juarez and the patient needs an EGD and colonoscopy, however it was decided to wait for clinical improvement of acute kidney injury before proceeding with the procedure. EGD/coonoscopy as above but no bleeding reported. Prophylaxis: PPI. DVT prophylaxis: Continue SCDs, chemoprophylaxis contraindicated due to GI bleed and anemia. Pt Condition on Discharge: Stable Discharge Disposition: Disch w/ Home Health Serv Discharge Time: > 30 minutes Discharge Instructions DIET: Follow Instructions for: Heart Healthy Diet Activities you can perform: Regular-No Restrictions Activities to Avoid: Strenuous Activity Follow up Referrals: Gastroenterology - 2 Weeks with Justino Juarez MD PCP Follow-up - 1 Week New Medications: Pantoprazole (Pantoprazole) 40 Mg Tab 40 MG PO Q12HR for gastritis, #62 TAB Continued Medications: Albuterol 18 GM Inh (Ventolin Hfa 18 GM Inh) 90 Mcg/Act Aer 1 PUFF INH Q4H PRN for SHORTNESS OF BREATH, #1 INHALER 3 Refills Atorvastatin (Atorvastatin) 40 Mg Tab 40 MG PO HS for Cholesterol Management, #30 TAB 0 Refills Budesonide-Formoterol Inh (Symbicort Inh) 160-4.5 Mcg/Act Aero 2 PUFF INH Q12HR for Breathing Treatment, #1 INHALER 3 Refills Fluticasone-Vilanterol Inh (Breo Ellipta Inh) 100-25 Mcg/Act Inh 1 PUFF INH DAILY, #1 INHALER 0 Refills Use daily at the same time. Furosemide (Furosemide) 40 Mg Tab 40 MG PO DAILY for Prevent Heart Failure, #30 TAB 3 Refills Ipratropium HFA 12.9 GM Inh (Atrovent HFA 12.9 GM Inh) 17 Mcg/Act Aer 2 PUFF INH Q6HR PRN for SHORTNESS OF BREATH, #1 INHALER 3 Refills Ipratropium HFA 12.9 GM Inh (Atrovent HFA 12.9 GM Inh) 17 Mcg/Act Aer 2 PUFF INH Q6HR PRN for SHORTNESS OF BREATH, #1 INHALER 0 Refills Lactobacillus Acidophilus (Lactobacillus Acidophilus) 1 Tab Tab 1 TAB PO TIDAC for Nutritional Supplement, #30 TAB 0 Refills Metoprolol Tartrate (Metoprolol Tartrate) 50 Mg Tab 50 MG PO BID, #60 TAB 0 Refills Rivaroxaban (Xarelto) 20 Mg Tab 20 MG PO DAILY WITH DINNER for Blood Clot Prevention, TAB 0 Refills Discontinued Medications: Bumetanide (Bumetanide) 0.5 Mg Tab 0.5 MG PO BID, TAB 0 Refills Pantoprazole (Protonix) 40 Mg Tab 40 MG PO DAILY for Reflux, #30 TAB 0 Refills Doug Dowell MD May 20, 2017 12:13
[2017-05-20] MEDS ORDERED: RIVAROXABAN 20 MG TAB PO SCH (14:00)
--- NOTE | 2017-05-20 15:21 | PD.WCN.NOT ---
Wound Consult Description: Received consult for wound management of R lower extremity from Doctor Canales. Communicated with: ALEJANDRA Saul and call placed to Doctor Canales Recommendation: Please cleanse Wound to R anterior velarde with normal saline and apply Maxorb II ( Calcium Alginate) Dressing over wound bed. Covered with optifoam basic ( non adhesive foam dressing) secure with rolled gauze and tape Change dressing every 3 days or PRN if saturated or dislodged. Apply lac hydrin lotion to BLE BID and keep BLE elevated. Additional Information: Patient seen on for evaluation of wound management of RLE.Patient is sitting in recliner with BLE elevated and open to air. BLE present with hard non pitting edema and dry scaly skin with erythema. R anterior velarde is noted with small shallow ulcer measuring 0.7cm x 1cm x ~0.1cm. Wound bed is noted with 100% pink tissue and is draining moderate serous drainage with mild sweet odor. Cleansed wound with normal saline and applied maxorb II just over wound bed and covered with ABD pad, secured with rolled gauze and tape. Patient is known to inpatient wound care and was last seen 04/13/2017 with same wound care recommendations noted above Cecily Torres [facility] May 20, 2017 15:21
== END 2017-05-20 19:35 | disposition home health service (06) | DRG 683 ==
LOC: NEPC 10:42 → NEDA 12:57 → HOCA 14:05
PROVIDERS: ADMIT Hospitalist; ATTEND Hospitalist
PROC: 0T9B70Z Drainage of Bladder with Drainage Device, Via Natural or Artificial Opening (ICD-10-PCS; principal; 2017-05-14)
PROC: 3E0F7GC Introduction of Other Therapeutic Substance into Respiratory Tract, Via Natural or Artificial Opening (ICD-10-PCS; 2017-05-14)
PROC: 30243N1 Transfusion of Nonautologous Red Blood Cells into Central Vein, Percutaneous Approach (ICD-10-PCS; 2017-05-16)
PROC: 0DB48ZX Excision of Esophagogastric Junction, Via Natural or Artificial Opening Endoscopic, Diagnostic (ICD-10-PCS; 2017-05-19)
PROC: 0DJD8ZZ Inspection of Lower Intestinal Tract, Via Natural or Artificial Opening Endoscopic (ICD-10-PCS; 2017-05-19)
DX: N17.9 Acute kidney failure, unspecified (principal); E87.2 Acidosis; E87.1 Hypo-osmolality and hyponatremia; I27.2 Other secondary pulmonary hypertension; L03.115 Cellulitis of right lower limb; I13.0 Hypertensive heart and chronic kidney disease with heart failure and stage 1 through stage 4 chronic kidney disease, or unspecified chronic kidney disease; I50.32 Chronic diastolic (congestive) heart failure; E86.0 Dehydration; I48.0 Paroxysmal atrial fibrillation; L03.116 Cellulitis of left lower limb; L97.819 Non-pressure chronic ulcer of other part of right lower leg with unspecified severity; N18.3 Chronic kidney disease, stage 3 (moderate); J44.9 Chronic obstructive pulmonary disease, unspecified; E86.1 Hypovolemia; Z99.81 Dependence on supplemental oxygen; I87.8 Other specified disorders of veins; I45.10 Unspecified right bundle-branch block; I44.0 Atrioventricular block, first degree; Z86.14 Personal history of Methicillin resistant Staphylococcus aureus infection; G47.30 Sleep apnea, unspecified; Z86.73 Personal history of transient ischemic attack (TIA), and cerebral infarction without residual deficits; I25.10 Atherosclerotic heart disease of native coronary artery without angina pectoris; E78.00 Pure hypercholesterolemia, unspecified; Z85.46 Personal history of malignant neoplasm of prostate; Z92.3 Personal history of irradiation; Z92.21 Personal history of antineoplastic chemotherapy; Z79.01 Long term (current) use of anticoagulants; Z87.11 Personal history of peptic ulcer disease; E66.01 Morbid (severe) obesity due to excess calories; T50.2X5A Adverse effect of carbonic-anhydrase inhibitors, benzothiadiazides and other diuretics, initial encounter; R00.0 Tachycardia, unspecified; D64.89 Other specified anemias; K21.9 Gastro-esophageal reflux disease without esophagitis; K29.50 Unspecified chronic gastritis without bleeding; K64.9 Unspecified hemorrhoids
CPT/HCPCS: 36430; 51702; 71010; 78582; 80048; 80053; 81001; 82272; 82550; 82552; 83735; 83880; 83935; 84100; 84300; 84484; 84550; 85025; 85027; 85610; 85730; 86850; 86900; 86901; 86920; 87040; 87086; 88305; 93005; 93970; 94640; 94664; 96361; 96374; A9540; A9567; J2060; J2930; J3010; J7030; J7050; J7120; P9016

== ENCOUNTER 2017-06-30 14:55 | Inpatient (IN) | payer OTHER, MEDICARE ==
[~2017-06-30] VITALS: Ht 175.3 cm; Wt 145.2 kg
[~2017-06-30 14:55] MED LIST changes: -BACT800T5 PO; -BUME0.5T PO; +PANT40TA3 PO; -PROT40TA PO
[2017-06-30 15:03] VITALS: BP 175/108; PULSE 97; RESP 20; TEMP 98.1; O2SAT 97
--- NOTE | 2017-06-30 16:04 | PD ---
HPI Chief Complaint: Skin Problem Time Seen by Provider: 15:46 Travel History International Travel<30 days: No Contact w/Intl Traveler<30days: No Traveled to known affect area: No History of Present Illness HPI 61-year-old male came to the emergency room with history of a weeping wound from his right lower extremity. Patient has had this wound for a very long time. As per his past medical record at least for 2-3 months. Patient was admitted and discharged a month ago when he was treated with antibiotic. He gets home health care and today the home health nurse came and took the dressing off the leg and noticed that the leg was red and weeping a lot. She recommended that he should come to the emergency room. No history of fever or chills. Patient does complain of some leg pain. He is on Xarelto for atrial fibrillation. He has had multiple lower extremity ultrasound done to rule out DVTs which she has not had. Vital signs were otherwise stable. Patient is not a diabetic. Patient is an alcoholic. [facility] Past Medical History Narrative Medical List of his past medical, surgical, social and family history is reviewed from the nursing note. Hx Anticoagulant Therapy: Yes Asthma: No Atrial Fibrillation: Yes Heart Rhythm Problems: Yes (A-FIB) Cancer: No Cardiac Catheterization: Yes Cardiovascular Problems: Yes High Cholesterol: Yes Chest Pain: Yes Congestive Heart Failure: Yes COPD: Yes (HOME O2 2 L NC) Cerebrovascular Accident: Yes Coronary Artery Disease: Yes Diabetes: No Diminished Hearing: No Endocrine: No Gastrointestinal Disorders: No Genitourinary: Yes Hypertension: Yes Immune Disorder: No Implanted Vascular Access Dvce: No Musculoskeletal: Yes Neurologic: Yes Psychiatric: No Reproductive: No Respiratory: Yes (copd ) Integumentary: Yes (BILATERAL LOWER LEG SWELLING/SKIN ITEGRATY ISSUES cellulitis) Immunizations Current: Yes Migraines: No Seizures: Yes Sleep Apnea: Yes (DOES NOT HAVE CPAP) Thyroid Disease: No Past Surgical History Abdominal Surgery: Yes (apendix) Appendectomy: Yes Cardiac Surgery: Yes (ABLATIONS X 3 (afib)) Genitourinary Surgery: No Neurologic Surgery: No Tonsillectomy: Yes Other Surgery: Yes (ABLATION X 3) Social History Alcohol Use: Yes (RARE) Tobacco Use: No Substance Use: No Allergies-Medications (Allergen,Severity, Reaction): Coded Allergies: No Known Allergies (Unverified , 05/15/17) Comments No known drug allergies. Reported Meds & Prescriptions Reported Meds & Active Scripts Active Pantoprazole (Pantoprazole Sodium) 40 Mg Tab 40 Mg PO Q12HR Lactobacillus Acidophilus 1 Tab Tab 1 Tab PO TIDAC Ventolin Hfa 18 GM Inh (Albuterol Sulfate) 90 Mcg/Act Aer 1 Puff INH Q4H PRN Atrovent HFA 12.9 GM Inh (Ipratropium [place]) 17 Mcg/Act Aer 2 Puff INH Q6HR PRN Furosemide 40 Mg Tab 40 Mg PO DAILY Symbicort Inh (Budesonide/Formoterol Fumarate) 160-4.5 Mcg/Act Aero 2 Puff INH Q12HR Reported Atrovent HFA 12.9 GM Inh (Ipratropium [place]) 17 Mcg/Act Aer 2 Puff INH Q6HR PRN Breo Ellipta Inh (Fluticasone/Vilanterol) 100-25 Mcg/Act Inh 1 Puff INH DAILY Use daily at the same time. Atorvastatin (Atorvastatin Calcium) 40 Mg Tab 40 Mg PO HS Metoprolol Tartrate 50 Mg Tab 50 Mg PO BID Xarelto (Rivaroxaban) 20 Mg Tab 20 Mg PO DAILY WITH DINNER Narrative Medication List of his home medications reviewed from the nursing note. Review of Systems Except as stated in HPI: all other systems reviewed are Neg Physical Exam Narrative GENERAL: Awake, alert, morbidly obese, moderate distress SKIN: Focused skin assessment warm/dry. Erythema of the right lower extremity up to the knee HEAD: Atraumatic. Normocephalic. EYES: Pupils equal and round. No scleral icterus. No injection or drainage. ENT: No nasal bleeding or discharge. Mucous membranes pink and moist. NECK: Trachea midline. No JVD. CARDIOVASCULAR: Regular rate and rhythm. No murmur appreciated. RESPIRATORY: No accessory muscle use. Clear to auscultation. Breath sounds equal bilaterally. GASTROINTESTINAL: Abdomen soft, non-tender, nondistended. Hepatic and splenic margins not palpable. MUSCULOSKELETAL: No obvious deformities. No clubbing. No cyanosis. Bilateral pedal edema right worse than the left. Serous drainage from a small abrasion on the anterior lateral aspect of the right leg. Distal pulses dopplerable present bilaterally NEUROLOGICAL: Awake and alert. No obvious cranial nerve deficits. Motor grossly within normal limits. Normal speech. PSYCHIATRIC: Appropriate mood and affect; insight and judgment normal. Data Data Last Documented VS Vital Signs Date Time Temp Pulse Resp B/P (MAP) Pulse Ox O2 Delivery O2 Flow Rate FiO2 06/30/17 17:27 138 20 112/65 (81) 97 Room Air 06/30/17 15:03 98.1 Orders Orders Complete Blood Count With Diff (06/30/17 16:06) Comprehensive Metabolic Panel (06/30/17 16:06) Lactic Acid Sepsis Protocol (06/30/17 16:06) Urinalysis - C+S If Indicated (06/30/17 16:06) Blood Culture (06/30/17 16:06) Blood Glucose (06/30/17 16:06) Ecg Monitoring (06/30/17 16:06) Iv Access Insert/Monitor (06/30/17 16:06) Oximetry (06/30/17 16:06) Oxygen Administration (06/30/17 16:06) Piperacil-Tazo 4.5 Gm Premix (Zosyn 4.5 (06/30/17 16:06) Vancomycin Inj (Vancomycin Inj) (06/30/17 16:06) Vascular Access Team Consult/P PRN (06/30/17 16:10) Vascular Poc Ultrasound (06/30/17 ) Morphine Inj (Morphine Inj) (06/30/17 17:00) Labs Laboratory Tests Test 06/30/17 16:40 06/30/17 16:41 Lactic Acid Level 1.6 mmol/L White Blood Count 9.8 TH/MM3 Red Blood Count 3.11 MIL/MM3 Hemoglobin 9.4 GM/DL Hematocrit 28.6 % Mean Corpuscular Volume 92.1 FL Mean Corpuscular Hemoglobin 30.1 PG Mean Corpuscular Hemoglobin Concent 32.7 % Red Cell Distribution Width 16.4 % Platelet Count 292 TH/MM3 Mean Platelet Volume 7.7 FL Neutrophils (%) (Auto) 87.2 % Lymphocytes (%) (Auto) 6.7 % Monocytes (%) (Auto) 5.2 % Eosinophils (%) (Auto) 0.5 % Basophils (%) (Auto) 0.4 % Neutrophils # (Auto) 8.5 TH/MM3 Lymphocytes # (Auto) 0.7 TH/MM3 Monocytes # (Auto) 0.5 TH/MM3 Eosinophils # (Auto) 0.0 TH/MM3 Basophils # (Auto) 0.0 TH/MM3 CBC Comment DIFF FINAL Differential Comment Blood Urea Nitrogen 44 MG/DL Creatinine 1.60 MG/DL Random Glucose 103 MG/DL Total Protein 7.4 GM/DL Albumin 2.9 GM/DL Calcium Level 9.3 MG/DL Alkaline Phosphatase 248 U/L Aspartate Amino Transf (AST/SGOT) 51 U/L Alanine Aminotransferase (ALT/SGPT) 38 U/L Total Bilirubin 0.7 MG/DL Sodium Level 128 MEQ/L Potassium Level 3.7 MEQ/L Chloride Level 95 MEQ/L Carbon Dioxide Level 20.9 MEQ/L Anion Gap 12 MEQ/L Estimat Glomerular Filtration Rate 44 ML/MIN MDM Medical Decision Making Medical Screen Exam Complete: Yes Emergency Medical Condition: Yes Medical Record Reviewed: Yes Differential Diagnosis Cellulitis, dependent edema, vascular congestions Narrative Course 5:06 PM CBC is back. WBCs within normal limit except there is significant left shift. Awaiting for the chemistry and lactic acid to come back. I've given him a dose of IV Zosyn and vancomycin. Patient has failed outpatient treatment at this point. I would like to admit him once all the test results are back. I do not intend to do another ultrasound of the leg. Patient is on Xarelto and technically adequately anticoagulated. 5:34 PM blood test result shows hyponatremia with elevated BUN and creatinine. Awaiting for the hospitalist to call back for admission. Procedures EKG Prior to Arrival: No Diagnosis Primary Impression: Cellulitis, leg Qualified Codes: L03.115 - Cellulitis of right lower limb Additional Impressions: Failure of outpatient treatment Renal insufficiency Admitting Information Admitting Physician Requests: Suhail Gaines MD Jun 30, 2017 16:04
[2017-06-30] MEDS ORDERED: PIPERACIL-TAZO 4.5 GM PREMIX 100 ML IV STA (16:06)
[2017-06-30] MEDS ORDERED: VANCOMYCIN INJ 1,000 MG in SODIUM CHLOR 0.9% 250 ML INJ 250 ML IV STA (16:06)
[2017-06-30 16:10] VITALS: O2SAT 98
[2017-06-30 16:56] LABS: AUTOMATED NEUTROPHIL # 8.5 TH/MM3 (1.8-7.7); BASOPHIL % 0.4 % (0.0-2.0); EOSINOPHIL % 0.5 % (0.0-4.0); HEMATOCRIT 28.6 % (39.0-51.0); HEMO FLAGS DIFF FINAL; LYMPH % 6.7 % (9.0-44.0); LYMPHOCYTE # 0.7 TH/MM3 (1.0-4.8); MEAN CELL VOLUME 92.1 FL (80.0-100.0); MEAN CORPUSCULAR HEMOGLOBIN 30.1 PG (27.0-34.0); MEAN CORPUSCULAR HGB CONC 32.7 % (32.0-36.0); MONO % 5.2 % (0.0-8.0); NEUT % 87.2 % (16.0-70.0); PLATELET COUNT 292 TH/MM3 (150-450); RED BLOOD COUNT 3.11 MIL/MM3 (4.50-5.90); RED CELL DISTRIBUTION WIDTH 16.4 % (11.6-17.2); WHITE BLOOD COUNT 9.8 TH/MM3 (4.0-11.0)
[2017-06-30] MEDS ORDERED: MORPHINE SULFATE 4 MG/ML INJ IV PUSH ONE (17:00)
[2017-06-30 17:13] LABS: ANION GAP 12 MEQ/L (5-15); AST (GOT) 51 U/L (15-37); BICARBONATE 20.9 MEQ/L (21.0-32.0); BLOOD UREA NITROGEN 44 MG/DL (7-18); CHLORIDE 95 MEQ/L (98-107); GLOMERULAR FILTRATION RATE 44 ML/MIN (>89); POTASSIUM 3.7 MEQ/L (3.5-5.1); SODIUM (NA) 128 MEQ/L (136-145)
[2017-06-30 17:15] LABS: ALT (GPT) 38 U/L (12-78)
[2017-06-30 17:16] LABS: ALKALINE PHOSPHATASE 248 U/L (45-117); TOTAL BILIRUBIN ADULT 0.7 MG/DL (0.2-1.0)
[2017-06-30 17:27] VITALS: BP 112/65; PULSE 138; RESP 20; O2SAT 97
[2017-06-30] MEDS ORDERED: BISACODYL 10 MG SUPP RECTAL PRN (18:00)
[2017-06-30] MEDS ORDERED: MAGNESIUM HYDROXIDE SUSP 30 ML CUP PO PRN (18:00)
[2017-06-30] MEDS ORDERED: NALOXONE HCL 0.4 MG/ML AMP IV PUSH PRN (18:00)
[2017-06-30] MEDS ORDERED: LACTULOSE SYRUP 20 GM/30 ML CUP PO PRN (18:00)
[2017-06-30] MEDS ORDERED: ONDANSETRON HCL 4 MG/2 ML VIAL IVP PRN (18:00)
[2017-06-30] MEDS ORDERED: SENNOSIDES 8.6 MG TAB PO PRN (18:00)
[2017-06-30] MEDS ORDERED: SODIUM CHLORIDE 0.9% FLUSH 10 ML FLUSH IV FLUSH PRN (18:00)
[2017-06-30] MEDS ORDERED: ENOXAPARIN SODIUM 40 MG/0.4 ML SYRINGE SQ SCH (18:00)
--- NOTE | 2017-06-30 18:04 | HHI.HP ---
[facility] Admission Diagnosis Diagnoses: Chief Complaint: Right lower extremity swelling, pain Travel History International Travel<30 Days: No Contact w/Intl Traveler <30 Da: No Traveled to Known Affected Are: No Sepsis Criteria SIRS Criteria (2 or more): Heart rate over 90, WBC > 39334, < 4000 or > 10% bands Sepsis Criteria (SIRS+source): Infect source susp/known Severe Sepsis (+one): Acute Oliguria/Renal Failure Criteria Outcome: Meets SIRS criteria, Meets sepsis criteria History of Present Illness Written by Karyn Aviles, acting as scribe for Dr. Liz on 06/30/17 at 18: 04. This note was transcribed by saraiibjannet Aviles PA-C. I, Dr. Cr Liz personally performed the history, physical exam, and medical decision making; and confirmed the accuracy of the information in the transcribed note. Authenticated by Dr. Cr Liz on 06/30/17 at 18:05. Patient is a 61-year-old male with primary medical history of A. fib on Xarelto , HTN, COPD, CHF, recurrent right lower extremity cellulitis who came into the hospital for evaluation of right lower extremity with increasing edema and pain. Patient states that his home health care had noticed that the redness on his right lower extremity have increased and gotten from below the knee all the way up to his mid thigh area. He also states that for the past few days he had noticed that the pain on the right lower extremity has increased, he is unable to bear weight where in he used to walk using that leg. He reports high temperature, shaking couple of days ago but states that it has resolved and has not have any today. Patient also notes that in the past 2 days that he has some burning sensation with urination. Has not taken any antibiotics since last admission to the hospital. Right lower extremity described as dull and achy pain rated 8/10, radiates throughout the right lower extremity, aggravated by movement, does not know what relieves it. Denies SOB/ dyspnea. Denies chest pain, palpitations, headaches, dizziness. Denies n/v/d. Denies hematuria. Review of Systems Except as stated in HPI: all other systems reviewed are Neg Past Family Social History Past Medical History A. 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 Past Surgical History Cardiac ablation Appendectomy Tonsillectomy Reported Medications Reported Meds & Active Scripts Active Pantoprazole (Pantoprazole Sodium) 40 Mg Tab 40 Mg PO Q12HR Lactobacillus Acidophilus 1 Tab Tab 1 Tab PO TIDAC Ventolin Hfa 18 GM Inh (Albuterol Sulfate) 90 Mcg/Act Aer 1 Puff INH Q4H PRN Atrovent HFA 12.9 GM Inh (Ipratropium [place]) 17 Mcg/Act Aer 2 Puff INH Q6HR PRN Furosemide 40 Mg Tab 40 Mg PO DAILY Symbicort Inh (Budesonide/Formoterol Fumarate) 160-4.5 Mcg/Act Aero 2 Puff INH Q12HR Reported Atrovent HFA 12.9 GM Inh (Ipratropium [place]) 17 Mcg/Act Aer 2 Puff INH Q6HR PRN Breo Ellipta Inh (Fluticasone/Vilanterol) 100-25 Mcg/Act Inh 1 Puff INH DAILY Use daily at the same time. Atorvastatin (Atorvastatin Calcium) 40 Mg Tab 40 Mg PO HS Metoprolol Tartrate 50 Mg Tab 50 Mg PO BID Xarelto (Rivaroxaban) 20 Mg Tab 20 Mg PO DAILY WITH DINNER Allergies: Coded Allergies: No Known Allergies (Unverified , 05/15/17) Active Ordered Medications Current Medications Medications (Trade) Dose Ordered Sig/Delilah Route Start Time Stop Time Status Last Admin Sodium Chloride 1,000 ml @ 100 mls/hr Q10H IV 06/30/17 18:00 (NS Flush) 2 ml UNSCH PRN IV FLUSH 06/30/17 18:00 (NS Flush) 2 ml BID IV FLUSH 06/30/17 21:00 (Tylenol) 650 mg Q4H PRN PO 06/30/17 18:00 (Zofran Inj) 4 mg Q6H PRN IVP 06/30/17 18:00 (Narcan Inj) 0.4 mg UNSCH PRN IV PUSH 06/30/17 18:00 (Coco-Colace) 1 tab BID PO 06/30/17 21:00 (Milk Of Magnesia Liq) 30 ml Q12H PRN PO 06/30/17 18:00 (Senokot) 17.2 mg Q12H PRN PO 06/30/17 18:00 (Dulcolax Supp) 10 mg DAILY PRN RECTAL 06/30/17 18:00 (Lactulose Liq) 30 ml DAILY PRN PO 06/30/17 18:00 Pharmacy Profile Note 0 ml @ 0 mls/hr UNSCH OTHER 06/30/17 18:15 Piperacillin Sod/ Tazobactam Sod 100 ml @ 200 mls/hr Q8H IV 07/01/17 01:00 Family History No family history of diabetes or CAD Social History Occasional alcohol use Denies tobacco use Denies illicit drug use Physical Exam Vital Signs Vital Signs Date Time Temp Pulse Resp B/P (MAP) Pulse Ox O2 Delivery O2 Flow Rate FiO2 06/30/17 17:27 138 20 112/65 (81) 97 Room Air 06/30/17 16:10 98 Room Air 06/30/17 16:10 98 Room Air 06/30/17 16:07 95 20 06/30/17 15:03 98.1 97 20 175/108 (130) 97 Room Air Physical Exam GENERAL: This is an obese, well-developed patient, in no apparent distress. SKIN: Warm and dry. Right lower extremity edema +4, erythema extending from the foot to mid thigh area, warm. Left lower extremity edema +2, discoloration HEAD: Normocephalic. No temporal or scalp tenderness. EYES: Pupils equal round and reactive. Extraocular motions intact. No scleral icterus. No injection or drainage. ENT: Nose without bleeding. Throat without erythema. Uvula midline. Airway patent. NECK: Trachea midline. No JVD or lymphadenopathy. Supple, nontender, no meningeal signs. CARDIOVASCULAR: Rapid rate without murmurs, gallops, or rubs. RESPIRATORY: Diminished bases. No wheezes, rales, or rhonchi. GASTROINTESTINAL: Abdomen soft, non-tender, nondistended. Bowel sounds active 4. MUSCULOSKELETAL: Extremities without clubbing, cyanosis. Right lower extremity edema +4, erythema extending from the foot to mid thigh area. Small to moderate amount serous drainage. NEUROLOGICAL: Awake and alert. Oriented to place, person, time. Motor and sensory grossly within normal limits. Normal speech. Laboratory Laboratory Tests Test 06/30/17 16:40 06/30/17 16:41 06/30/17 17:26 Lactic Acid Level 1.6 White Blood Count 9.8 Red Blood Count 3.11 Hemoglobin 9.4 Hematocrit 28.6 Mean Corpuscular Volume 92.1 Mean Corpuscular Hemoglobin 30.1 Mean Corpuscular Hemoglobin Concent 32.7 Red Cell Distribution Width 16.4 Platelet Count 292 Mean Platelet Volume 7.7 Neutrophils (%) (Auto) 87.2 Lymphocytes (%) (Auto) 6.7 Monocytes (%) (Auto) 5.2 Eosinophils (%) (Auto) 0.5 Basophils (%) (Auto) 0.4 Neutrophils # (Auto) 8.5 Lymphocytes # (Auto) 0.7 Monocytes # (Auto) 0.5 Eosinophils # (Auto) 0.0 Basophils # (Auto) 0.0 CBC Comment DIFF FINAL Differential Comment Blood Urea Nitrogen 44 Creatinine 1.60 Random Glucose 103 Total Protein 7.4 Albumin 2.9 Calcium Level 9.3 Alkaline Phosphatase 248 Aspartate Amino Transf (AST/SGOT) 51 Alanine Aminotransferase (ALT/SGPT) 38 Total Bilirubin 0.7 Sodium Level 128 Potassium Level 3.7 Chloride Level 95 Carbon Dioxide Level 20.9 Anion Gap 12 Estimat Glomerular Filtration Rate 44 Date/Time Source Procedure Growth Status 06/30/17 16:45 Blood Peripheral Aerobic Blood Culture Pending Received 06/30/17 16:45 Blood Peripheral Anaerobic Blood Culture Pending Received Result Diagram: 06/30/17 1641 06/30/17 1641 Caprini VTE Risk Assessment Caprini VTE Risk Assessment: Mod/High Risk (score >= 2) Caprini Risk Assessment Model Point Value = 1 Point Value = 2 Point Value = 3 Point Value = 5 Age 41-60 Minor surgery BMI > 25 kg/m2 Swollen legs Varicose veins or History of unexplained or recurrent spontaneous Oral contraceptives or hormone replacement Sepsis (< 1 month) Serious lung disease, including pneumonia (< 1 month) Abnormal pulmonary function Acute myocardial infarction Congestive heart failure (< 1 month) History of inflammatory bowel disease Medical patient at bed rest Age 61-74 Arthroscopic surgery Major open surgery (> 45 min) Laparoscopic surgery (> 45 min) Malignancy Confined to bed (> 72 hours) Immobilizing plaster cast Central venous access Age >= 75 History of VTE Family history of VTE Factor V Leiden Prothrombin [id number] Lupus anticoagulant Anticardiolipin antibodies Elevated serum homocysteine Heparin-induced thrombocytopenia Other congenital or acquired thrombophilia Stroke (< 1 month) Elective arthroplasty Hip, pelvis, or leg fracture Acute spinal cord injury (< 1 month) Prophylaxis Regimen Total Risk Factor Score Risk Level Prophylaxis Regimen 0-1 Low Early ambulation 2 Moderate Order ONE of the following: *Sequential Compression Device (SCD) *Heparin 5000 units SQ BID 3-4 Higher Order ONE of the following medications: *Heparin 5000 units SQ TID *Enoxaparin/Lovenox 40 mg SQ daily (WT < 150 kg, CrCl > 30 mL/min) *Enoxaparin/Lovenox 30 mg SQ daily (WT < 150 kg, CrCl > 10-29 mL/min) *Enoxaparin/Lovenox 30 mg SQ BID (WT < 150 kg, CrCl > 30 mL/min) AND/OR *Sequential Compression Device (SCD) 5 or more Highest Order ONE of the following medications: *Heparin 5000 units SQ TID (Preferred with Epidurals) *Enoxaparin/Lovenox 40 mg SQ daily (WT < 150 kg, CrCl > 30 mL/min) *Enoxaparin/Lovenox 30 mg SQ daily (WT < 150 kg, CrCl > 10-29 mL/min) *Enoxaparin/Lovenox 30 mg SQ BID (WT < 150 kg, CrCl > 30 mL/min) AND *Sequential Compression Device (SCD) Assessment and Plan Problem List: (1) Cellulitis, leg ICD Code: L03.119 - Cellulitis of unspecified part of limb Status: Acute (2) CHF (congestive heart failure) ICD Code: I50.9 - Heart failure, unspecified Status: Chronic (3) A-fib ICD Code: I48.91 - Unspecified atrial fibrillation Status: Chronic (4) COPD (chronic obstructive pulmonary disease) ICD Code: J44.9 - Chronic obstructive pulmonary disease, unspecified Status: Chronic (5) Acute renal failure ICD Code: N17.9 - Acute kidney failure, unspecified Status: Acute Assessment and Plan Patient is a 61-year-old male with primary medical history of A. fib on Xarelto , HTN, COPD, CHF, recurrent right lower extremity cellulitis who came into the hospital for evaluation of right lower extremity with increasing edema and pain. Right lower extremity cellulitis, acute Sepsis, SIRS - HR 120s, Neutrophil count 87 Severe stasis dermatitis bilaterally. - R/O DVT ultrasound ordered. 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 Patient will likely require outpatient wound care as well. - Will consider ID consult tomorrow if warranted UTI - Complaints of urinary symptoms - UA positive leukoesterase, urine WBC, urine bacteria - Follow cultures A. fib, chronic with RVR - Heart rate in the 120s - 130's - Possibly related to infectious process - IV fluid for hydration - start metoprolol 50 mg Q8hrs for rate control. He takes Metoprolol 50mg BID. - If additional rate control meds required, we will consider Diltiazem. - Continue Xarelto for anti-coagulation. Acute kidney injury chronic kidney disease stage 3. - Previous labs reviewed, baseline 1.2 creatinine. On admission, Creatinine 1.60. - IV fluid for hydration - Avoid nephrotoxins. Adjust medications renal dose. Full code. Xarelto. Code Status Full code Discussed Condition With Patient, nursing, ED attending Physician Certification 2 Midnight Certification Type: Admission for Inpatient Services Order for Inpatient Services The services are ordered in accordance with Medicare regulations or non- Medicare payer requirements, as applicable. In the case of services not specified as inpatient-only, they are appropriately provided as inpatient services in accordance with the 2-midnight benchmark. Estimated LOS (days): 2 days is the estimated time the patient will need to remain in the hospital, assuming treatment plan goals are met and no additional complications. Post-Hospital Plan: Home Health Problem Qualifiers (1) Cellulitis, leg: Qualified Codes: L03.115 - Cellulitis of right lower limb Karyn Reyes Jun 30, 2017 18:04 Chantell Liz DO Jun 30, 2017 18:05
[2017-06-30 18:12] LABS: BACTERIA, URINE OCC /hpf; BLOOD, URINE NEG (NEG); COMMENT (UR) CATH-CULTURE IND; CULTURE IF INDICATED CATH CULTURE IND; GLUCOSE,URINE NEG (NEG); KETONE, URINE NEG (NEG); NITRITE,URINE NEG (NEG); PH, URINE 5.5 (5.0-8.5); SQUAMOUS EPITHELIAL CELL URINE 1 /hpf (0-5); URINE COLOR YELLOW (YELLW/STRAW)
[2017-06-30] MEDS ORDERED: Vancomycin Consult Pharmacy 1 EA OTHER SCH (18:15)
[2017-06-30 19:21] VITALS: BP 106/63; PULSE 130; RESP 16; O2SAT 97
[2017-06-30 20:03] VITALS: BP 104/66; PULSE 130; RESP 22; TEMP 97.7; O2SAT 98
[2017-06-30] MEDS ORDERED: THIAMINE HCL 100 MG TAB PO ONE (20:15)
[2017-06-30] MEDS: SODIUM CHLOR 0.9% 1000 ML INJ 1,000 ML IV SCH (20:18)
[2017-06-30] MEDS: LORazepam 2 MG/ML VIAL IV PUSH PRN ×2 (20:18→21:10)
[2017-06-30] MEDS: SODIUM CHLORIDE 0.9% FLUSH 10 ML FLUSH IV FLUSH SCH (20:19)
[2017-06-30] MEDS: METOPROLOL TARTRATE 50 MG TAB PO SCH (20:56)
[2017-06-30] MEDS: ACETAMINOPHEN 325 MG TAB PO PRN (20:56)
[2017-06-30] MEDS: RIVAROXABAN 20 MG TAB PO SCH (22:11)
[2017-06-30 22:14] VITALS: BP 108/59; PULSE 127; RESP 16; O2SAT 100
[2017-06-30] MEDS: DOCUSATE SODIUM 50 MG/SENNA 8.6 MG TAB PO SCH (22:47)
[2017-07-01] VITALS (7 sets, daily range): BP systolic 107–138; BP diastolic 56–72; PULSE 86–133; RESP 18–26; TEMP 97.6–98.7; O2SAT 96–100
[2017-07-01] MEDS: PIPERACIL-TAZO 4.5 GM PREMIX 100 ML IV SCH ×3 (01:36→17:22)
[2017-07-01] MEDS: METOPROLOL TARTRATE 50 MG TAB PO SCH ×3 (06:45→23:23)
[2017-07-01] MEDS: SODIUM CHLOR 0.9% 1000 ML INJ 1,000 ML IV SCH (06:45)
[2017-07-01] MEDS: SODIUM CHLORIDE 0.9% FLUSH 10 ML FLUSH IV FLUSH SCH ×2 (09:00→22:25)
[2017-07-01] MEDS: DOCUSATE SODIUM 50 MG/SENNA 8.6 MG TAB PO SCH ×2 (09:00→22:24)
[2017-07-01] MEDS: THIAMINE HCL 100 MG TAB PO SCH (10:56)
[2017-07-01] MEDS: LORazepam 2 MG/ML VIAL IV PUSH PRN ×3 (11:20→23:27)
[2017-07-01] MEDS: DILTIAZEM HCL 60 MG TAB PO SCH ×3 (11:21→23:24)
[2017-07-01] MEDS: VANCOMYCIN INJ 1,500 MG in SODIUM CHLORID 0.9% 500 ML INJ 500 ML IV SCH (11:29)
[2017-07-01 13:39] LABS: AUTOMATED NEUTROPHIL # 5.7 TH/MM3 (1.8-7.7); BASOPHIL # 0.1 TH/MM3 (0-0.2); BASOPHIL % 1.4 % (0.0-2.0); EOSINOPHIL # 0.1 TH/MM3 (0-0.4); HEMATOCRIT 27.4 % (39.0-51.0); HEMO FLAGS DIFF FINAL; LYMPHOCYTE # 0.5 TH/MM3 (1.0-4.8); MEAN CELL VOLUME 93.1 FL (80.0-100.0); MEAN CORPUSCULAR HEMOGLOBIN 30.3 PG (27.0-34.0); MEAN CORPUSCULAR HGB CONC 32.6 % (32.0-36.0); MONO % 5.8 % (0.0-8.0); NEUT % 83.8 % (16.0-70.0); PLATELET COUNT 294 TH/MM3 (150-450); RED BLOOD COUNT 2.95 MIL/MM3 (4.50-5.90); RED CELL DISTRIBUTION WIDTH 16.3 % (11.6-17.2); WHITE BLOOD COUNT 6.8 TH/MM3 (4.0-11.0)
[2017-07-01 14:10] LABS: POTASSIUM 4.8 MEQ/L (3.5-5.1)
--- NOTE | 2017-07-01 15:32 | HHI.PR ---
Subjective Remarks Follow up for bilateral lower ext stasis dermatitis with superimposed right sided cellulitis. Patient is currently doing well. No fever, chills. He is interested to go to SNF. Objective Vitals Vital Signs Date Time Temp Pulse Resp B/P (MAP) Pulse Ox O2 Delivery O2 Flow Rate FiO2 07/01/17 12:23 98.1 130 20 115/67 (83) 100 07/01/17 09:23 98.7 127 26 113/58 (76) 99 07/01/17 03:20 98.1 86 18 138/65 (89) 96 07/01/17 00:21 123 06/30/17 22:14 127 16 108/59 (75) 100 Nasal Cannula 2.00 06/30/17 20:03 97.7 130 22 104/66 (79) 98 Room Air 06/30/17 19:21 130 16 106/63 (77) 97 Room Air 06/30/17 17:27 138 20 112/65 (81) 97 Room Air 06/30/17 16:10 98 Room Air 06/30/17 16:10 98 Room Air 06/30/17 16:07 95 20 I/O 06/30/17 06/30/17 06/30/17 07/01/17 07/01/17 07/01/17 07:00 15:00 23:00 07:00 15:00 23:00 Intake Total 350 ml Output Total 600 ml Balance 350 ml -600 ml Intake IV Total 350 ml Output Urine Total 600 ml Result Diagram: 07/01/17 1315 07/01/17 1315 Objective Remarks GENERAL: Alert, Oriented x 3, NAD. SKIN: Warm and dry. HEAD: Normocephalic. EYES: No scleral icterus. No injection or drainage. NECK: Supple, trachea midline. No JVD or lymphadenopathy. CARDIOVASCULAR: Regular rate and rhythm without murmurs, gallops, or rubs. RESPIRATORY: Breath sounds equal bilaterally. No accessory muscle use. GASTROINTESTINAL: Abdomen soft, non-tender, nondistended. MUSCULOSKELETAL: significant bilateral lower ext venous stasis. Erythema on the right leg is improved. No active drainage. BACK: Nontender without obvious deformity. No CVA tenderness. Procedures None. A/P Problem List: (1) Cellulitis, leg ICD Code: L03.119 - Cellulitis of unspecified part of limb Status: Acute (2) CHF (congestive heart failure) ICD Code: I50.9 - Heart failure, unspecified Status: Chronic (3) A-fib ICD Code: I48.91 - Unspecified atrial fibrillation Status: Chronic (4) COPD (chronic obstructive pulmonary disease) ICD Code: J44.9 - Chronic obstructive pulmonary disease, unspecified Status: Chronic (5) Acute renal failure ICD Code: N17.9 - Acute kidney failure, unspecified Status: Acute Assessment and Plan Patient is a 61-year-old male with primary medical history of A. fib on Xarelto , HTN, COPD, CHF, recurrent right lower extremity cellulitis who came into the hospital for evaluation of right lower extremity with increasing edema and pain. Right lower extremity cellulitis, acute Sepsis, SIRS - HR 120s, Neutrophil count 87 Severe stasis dermatitis bilaterally. 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 We will consider switching to Keflex, Bactrim tomorrow. - Wound care. Patient will likely require outpatient wound care as well. - Patient will benefit from SNF placement. Will consult PT and Case management. UTI - Complaints of urinary symptoms - UA positive leukoesterase, urine WBC, urine bacteria - Cx growing GNR. Already on Zosyn. A. fib, chronic with RVR - Heart rate in the 120s - 130's - Possibly related to infectious process - Increase metoprolol to 75mg Q8hrs for rate control. - Will add Diltiazem 90mg Q6hrs as well. - Continue Xarelto for anti-coagulation. Acute kidney injury chronic kidney disease stage 3. - Creatinine 1.5 - 1.6. This maybe the new baseline. Full code. Xarelto. Discharge plan: If Afib rate control is achieved (below below 90), we should be able to discharge patient to SNF within 1-2 days. Problem Qualifiers (1) Cellulitis, leg: Qualified Codes: L03.115 - Cellulitis of right lower limb Chantell Liz DO Jul 01, 2017 15:32
[2017-07-01] MEDS: RIVAROXABAN 20 MG TAB PO SCH (22:24)
[2017-07-02] MEDS: PIPERACIL-TAZO 4.5 GM PREMIX 100 ML IV SCH ×2 (01:36→08:15)
[2017-07-02 05:13] VITALS: BP 113/65; PULSE 94; RESP 19; TEMP 98.2; O2SAT 95
[2017-07-02] MEDS: METOPROLOL TARTRATE 50 MG TAB PO SCH ×2 (06:31→20:25)
[2017-07-02] MEDS: DILTIAZEM HCL 60 MG TAB PO SCH ×4 (06:31→22:42)
[2017-07-02] MEDS: DOCUSATE SODIUM 50 MG/SENNA 8.6 MG TAB PO SCH ×2 (08:15→20:24)
[2017-07-02] MEDS: THIAMINE HCL 100 MG TAB PO SCH (08:15)
[2017-07-02] MEDS: SODIUM CHLORIDE 0.9% FLUSH 10 ML FLUSH IV FLUSH SCH ×2 (08:15→20:24)
[2017-07-02 08:44] VITALS: BP 91/52; PULSE 57; RESP 22; TEMP 98.6; O2SAT 96
[2017-07-02] MEDS: LORazepam 2 MG/ML VIAL IV PUSH PRN ×3 (09:07→22:43)
[2017-07-02] MEDS: VANCOMYCIN INJ 1,500 MG in SODIUM CHLORID 0.9% 500 ML INJ 500 ML IV SCH (09:07)
[2017-07-02 12:00] VITALS: BP 108/69; PULSE 62; RESP 20; TEMP 97.8; O2SAT 96
--- NOTE | 2017-07-02 13:19 | HHI.PR ---
Subjective Remarks Patient seen sitting up on edge of bed patient unsure if the erythema has improved or not offer no specific complaints Objective Vitals Vital Signs Date Time Temp Pulse Resp B/P (MAP) Pulse Ox O2 Delivery O2 Flow Rate FiO2 07/02/17 12:00 97.8 62 20 108/69 (82) 96 07/02/17 11:00 Nasal Cannula 2.00 07/02/17 08:44 98.6 57 22 91/52 (65) 96 07/02/17 05:13 98.2 94 19 113/65 (81) 95 07/01/17 23:48 97.8 132 20 107/59 (75) 99 07/01/17 20:17 98.4 132 20 119/56 (77) 99 07/01/17 17:08 97.6 133 24 112/72 (85) 100 I/O 07/01/17 07/01/17 07/01/17 07/02/17 07/02/17 07/02/17 07:00 15:00 23:00 07:00 15:00 23:00 Intake Total 580 ml 100 ml Output Total 600 ml 350 ml 500 ml 200 ml Balance -600 ml -350 ml 80 ml -100 ml Intake Oral 480 ml IV Total 100 ml 100 ml Output Urine Total 600 ml 350 ml 500 ml 200 ml # Voids 1 Result Diagram: 07/01/17 1315 07/01/17 1315 Other Results Laboratory Tests Test 06/30/17 16:40 06/30/17 16:41 06/30/17 17:26 07/01/17 13:15 Lactic Acid Level 1.6 mmol/L White Blood Count 9.8 TH/MM3 6.8 TH/MM3 Red Blood Count 3.11 MIL/MM3 2.95 MIL/MM3 Hemoglobin 9.4 GM/DL 8.9 GM/DL Hematocrit 28.6 % 27.4 % Mean Corpuscular Volume 92.1 FL 93.1 FL Mean Corpuscular Hemoglobin 30.1 PG 30.3 PG Mean Corpuscular Hemoglobin Concent 32.7 % 32.6 % Red Cell Distribution Width 16.4 % 16.3 % Platelet Count 292 TH/MM3 294 TH/MM3 Mean Platelet Volume 7.7 FL 7.4 FL Neutrophils (%) (Auto) 87.2 % 83.8 % Lymphocytes (%) (Auto) 6.7 % 7.0 % Monocytes (%) (Auto) 5.2 % 5.8 % Eosinophils (%) (Auto) 0.5 % 2.0 % Basophils (%) (Auto) 0.4 % 1.4 % Neutrophils # (Auto) 8.5 TH/MM3 5.7 TH/MM3 Lymphocytes # (Auto) 0.7 TH/MM3 0.5 TH/MM3 Monocytes # (Auto) 0.5 TH/MM3 0.4 TH/MM3 Eosinophils # (Auto) 0.0 TH/MM3 0.1 TH/MM3 Basophils # (Auto) 0.0 TH/MM3 0.1 TH/MM3 CBC Comment DIFF FINAL DIFF FINAL Differential Comment Blood Urea Nitrogen 44 MG/DL 46 MG/DL Creatinine 1.60 MG/DL 1.57 MG/DL Random Glucose 103 MG/DL 128 MG/DL Total Protein 7.4 GM/DL Albumin 2.9 GM/DL Calcium Level 9.3 MG/DL 8.6 MG/DL Alkaline Phosphatase 248 U/L Aspartate Amino Transf (AST/SGOT) 51 U/L Alanine Aminotransferase (ALT/SGPT) 38 U/L Total Bilirubin 0.7 MG/DL Sodium Level 128 MEQ/L 133 MEQ/L Potassium Level 3.7 MEQ/L 4.8 MEQ/L Chloride Level 95 MEQ/L 102 MEQ/L Carbon Dioxide Level 20.9 MEQ/L 26.0 MEQ/L Anion Gap 12 MEQ/L 5 MEQ/L Estimat Glomerular Filtration Rate 44 ML/MIN 45 ML/MIN Urine Color YELLOW Urine Turbidity CLEAR Urine pH 5.5 Urine Specific [place] 1.014 Urine Protein NEG mg/dL Urine Glucose (UA) NEG mg/dL Urine Ketones NEG mg/dL Urine Occult Blood NEG Urine Nitrite NEG Urine Bilirubin NEG Urine Urobilinogen 2.0 MG/DL Urine Leukocyte Esterase LARGE Urine RBC 1 /hpf Urine WBC 35 /hpf Urine Squamous Epithelial Cells 1 /hpf Urine Bacteria OCC /hpf Microscopic Urinalysis Comment CATH-CULTURE IND Objective Remarks GENERAL: Alert, Oriented x 3, NAD. SKIN: Warm and dry. BLE venous status with erythema RLE which extends to medical thigh HEAD: Normocephalic. EYES: No scleral icterus. No injection or drainage. NECK: Supple, trachea midline. No JVD or lymphadenopathy. CARDIOVASCULAR: Regular rate and rhythm without murmurs, gallops, or rubs. RESPIRATORY: Breath sounds equal bilaterally. No accessory muscle use. GASTROINTESTINAL: Abdomen soft, non-tender, nondistended. MUSCULOSKELETAL: significant bilateral lower ext venous stasis. BLE 2+ pitting edema BACK: Nontender without obvious deformity. No CVA tenderness. Procedures None. A/P Problem List: (1) Cellulitis, leg ICD Code: L03.119 - Cellulitis of unspecified part of limb Status: Acute (2) CHF (congestive heart failure) ICD Code: I50.9 - Heart failure, unspecified Status: Chronic (3) A-fib ICD Code: I48.91 - Unspecified atrial fibrillation Status: Chronic (4) COPD (chronic obstructive pulmonary disease) ICD Code: J44.9 - Chronic obstructive pulmonary disease, unspecified Status: Chronic (5) Acute renal failure ICD Code: N17.9 - Acute kidney failure, unspecified Status: Acute Assessment and Plan Patient is a 61-year-old male with primary medical history of A. fib on Xarelto , HTN, COPD, CHF, recurrent right lower extremity cellulitis who came into the hospital for evaluation of right lower extremity with increasing edema and pain. Right lower extremity cellulitis, acute on admission Sepsis, SIRS - HR 120s, Neutrophil count 87 Severe stasis dermatitis bilaterally. - Blood cultures reviewed no growth x 2 days, follow cultures - Lactic acid 1.6 - Continue Vanco and Zosyn. will consult ID for further eval and assistance - Wound care. Patient will likely require outpatient wound care as well. - Patient will benefit from SNF placement. Will consult PT and Case management. UTI - Complaints of urinary symptoms - UA positive leukoesterase, urine WBC, urine bacteria - Cx growing Klebsiella Pneumoniae. Already on Zosyn. A. fib, chronic with RVR - Heart rate in the 120s - 130's initially patient now bradycardic - decrease metoprolol to 75mg Q12hrs -with hold parameters - decrease Diltiazem 60mg Q6hrs as well- with hold parameters - Continue Xarelto for anti-coagulation. Acute kidney injury chronic kidney disease stage 3. - Creatinine 1.5 - 1.6. This maybe the new baseline. Full code. Xarelto. Discussed with patient, nurse and Dr. Agusto Liz will also see this patient and this will be a shared visit Attending Statement Patient was seen/examined. His right sided lower ext cellulitis appears to be much improved. Erythema much improved. Swelling has gone down on both legs too. Patient's underlying issue is venous stasis. We will start patient on diuretics , he needs to keep legs elevated. Will also get recommendations from wound care. We will look into SNF discharge tomorrow 07/03/2017. Problem Qualifiers (1) Cellulitis, leg: Qualified Codes: L03.115 - Cellulitis of right lower limb Jenise Muse Jul 02, 2017 13:19 Chantell Liz DO Jul 02, 2017 22:50
[2017-07-02 16:00] VITALS: BP 140/63; PULSE 137; RESP 22; TEMP 97.6; O2SAT 95
[2017-07-02] MEDS: TORSEMIDE 5 MG TAB PO SCH (17:56)
[2017-07-02] MEDS ORDERED: METOPROLOL TARTRATE 50 MG TAB PO ONE (18:00)
[2017-07-02 20:00] VITALS: BP 114/64; PULSE 138; RESP 20; TEMP 97.3; O2SAT 96
[2017-07-02] MEDS: RIVAROXABAN 20 MG TAB PO SCH (20:24)
[2017-07-02] MEDS: CEPHALEXIN MONOHYDRATE 500 MG CAP PO SCH (20:24)
[2017-07-02] MEDS: SULFAMETHOXAZOLE-TRIMETHOPRIM DS 800-160 MG TAB PO SCH (20:25)
[2017-07-02 20:30] VITALS: PULSE 134
[2017-07-03] VITALS (14 sets, daily range): BP systolic 108–129; BP diastolic 64–76; PULSE 65–139; RESP 18–20; TEMP 97.2–98; O2SAT 92–99
[2017-07-03] MEDS: LORazepam 2 MG/ML VIAL IV PUSH PRN ×4 (00:52→10:07)
[2017-07-03] MEDS ORDERED: RESP: IPRATROPIUM 0.5 MG/2.5 ML NEB NEB PRN (01:15)
[2017-07-03] MEDS ORDERED: DILTIAZEM HCL 25 MG/5 ML VIAL IV ONE (01:15)
--- NOTE | 2017-07-03 01:32 | RADRPT ---
EXAM DATE/TIME: 07/03/2017 02:09 [facility] COMPARISON: CHEST SINGLE AP, May 14, 2017, 11:22. INDICATIONS : Shortness of breath. Evaluate for pulmonary edema. MEDICAL HISTORY : Chronic obstructive pulmonary disease. Hypercholesterolemia. SURGICAL HISTORY : Cardiac cath. 3 ablations. ENCOUNTER: Initial ACUITY: 1 day PAIN SCORE: 0/10 LOCATION: chest FINDINGS: A single view of the chest demonstrates the lungs to be symmetrically aerated without evidence of mas s, infiltrate or effusion. Cardiomegaly. The cardiomediastinal contours are unremarkable. Osseous s tructures are intact. CONCLUSION: No acute disease. Cardiomegaly. Hemal Muñoz MD on July 03, 2017 at 1:30 Board Certified Radiologist. This report was verified electronically.
[2017-07-03] MEDS: RESP: IPRATROPIUM 0.5 MG/2.5 ML NEB NEB SCH ×4 (04:40→21:14)
[2017-07-03] MEDS: CEPHALEXIN MONOHYDRATE 500 MG CAP PO SCH ×3 (05:36→20:37)
[2017-07-03] MEDS: DILTIAZEM HCL 60 MG TAB PO SCH (05:37)
[2017-07-03] MEDS ORDERED: PHARMACY ORDERED LAB ONE (09:45)
[2017-07-03] MEDS: SODIUM CHLORIDE 0.9% FLUSH 10 ML FLUSH IV FLUSH SCH ×2 (09:58→20:36)
[2017-07-03] MEDS: METOPROLOL TARTRATE 50 MG TAB PO SCH ×2 (09:59→17:59)
[2017-07-03] MEDS: TORSEMIDE 5 MG TAB PO SCH ×2 (09:59→17:59)
[2017-07-03] MEDS: SULFAMETHOXAZOLE-TRIMETHOPRIM DS 800-160 MG TAB PO SCH ×2 (09:59→20:37)
[2017-07-03] MEDS: THIAMINE HCL 100 MG TAB PO SCH (10:00)
[2017-07-03] MEDS: DOCUSATE SODIUM 50 MG/SENNA 8.6 MG TAB PO SCH ×2 (10:00→20:37)
--- NOTE | 2017-07-03 10:18 | PD.WCN.NOT ---
Wound Consult Description: Consult for bilateral lower extremities per Dr Liz Communicated with: ALEJANDRA Ghosh Patient Recommendation: Keep legs elevated. Cleanse wound on right lateral lower extremity with wound cleanser and gauze EVERY OTHER DAY Apply Maxorb II over wound Cover with Optifoam Basic Secure with rolled gauze and tape (please do not place tape on skin) Additional Information: Patient known to chart writer from previous admissions. Right lower lateral extremity wound appears improved since last visit last month. Wound measures 0.6cm x 0.4cm x 0.2cm with 100% pale red non granulating tissue noted in moist wound bed with moderate clear drainage. Periwound is moist, edematous, blanching erythema, and hardened wrinkled skin. Wound and periwound was cleansed with wound cleanser and pat dry with gauze. Maxorb II was placed over wound bed and Optifoam basic was used to reinforce for absorption of drainage and to create a moist wound environment without increasing moisture to the already moist periwound that is being dried out by the Maxorb II dressing it is coming in contact with. Rolled gauze was used to secure dressing in place and may be changed every other day and PRN for soiling or dislodgement. Evelyn Lopez [facility] Jul 03, 2017 10:18
[2017-07-03] MEDS: DILTIAZEM HCL 90 MG TAB PO SCH ×2 (12:34→17:59)
--- NOTE | 2017-07-03 13:13 | HHI.PR ---
Subjective Remarks Follow up for bilateral lower ext stasis dermatitis with superimposed right sided cellulitis. Patient is doing well. No fever, chills. Despite oral rate control meds, he continues to be in the 130s range. No chest pain, SOB. Objective Vitals Vital Signs Date Time Temp Pulse Resp B/P (MAP) Pulse Ox O2 Delivery O2 Flow Rate FiO2 07/03/17 08:00 98.0 130 20 119/71 (87) 92 07/03/17 04:47 98 Nasal Cannula 2.00 07/03/17 04:00 97.2 132 20 129/74 (92) 99 07/03/17 00:00 97.6 133 20 112/76 (88) 93 07/02/17 20:30 96 Nasal Cannula 2.00 07/02/17 20:30 134 07/02/17 20:00 97.3 138 20 114/64 (81) 96 07/02/17 16:00 97.6 137 22 140/63 (88) 95 I/O 07/02/17 07/02/17 07/02/17 07/03/17 07/03/17 07/03/17 07:00 15:00 23:00 07:00 15:00 23:00 Intake Total 580 ml 100 ml 480 ml 360 ml Output Total 500 ml 200 ml 300 ml 1000 ml Balance 80 ml -100 ml 180 ml -640 ml Intake Oral 480 ml 480 ml 360 ml IV Total 100 ml 100 ml Output Urine Total 500 ml 200 ml 300 ml 1000 ml # Voids 1 # Bowel Movements 0 Result Diagram: 07/01/17 1315 07/01/17 1315 Imaging Last Impressions Chest X-Ray 07/03/17 0000 Signed Impressions: Service Date/Time: Monday, July 03, 2017 02:09 - CONCLUSION: No acute disease. Cardiomegaly. Hemal Muñoz MD Objective Remarks GENERAL: Alert, Oriented x 3, NAD. SKIN: Warm and dry. HEAD: Normocephalic. EYES: No scleral icterus. No injection or drainage. NECK: Supple, trachea midline. No JVD or lymphadenopathy. CARDIOVASCULAR: Irreg Irreg, tachycardic without murmurs, gallops, or rubs. RESPIRATORY: Breath sounds equal bilaterally. No accessory muscle use. GASTROINTESTINAL: Abdomen soft, non-tender, nondistended. MUSCULOSKELETAL: significant bilateral lower ext venous stasis. Erythema on the right leg is improved. small ulcer covered with dressing on the right lower ext. BACK: Nontender without obvious deformity. No CVA tenderness. Procedures None. A/P Problem List: (1) Cellulitis, leg ICD Code: L03.119 - Cellulitis of unspecified part of limb Status: Acute (2) CHF (congestive heart failure) ICD Code: I50.9 - Heart failure, unspecified Status: Chronic (3) A-fib ICD Code: I48.91 - Unspecified atrial fibrillation Status: Chronic (4) COPD (chronic obstructive pulmonary disease) ICD Code: J44.9 - Chronic obstructive pulmonary disease, unspecified Status: Chronic (5) Acute renal failure ICD Code: N17.9 - Acute kidney failure, unspecified Status: Acute Assessment and Plan Patient is a 61-year-old male with primary medical history of A. fib on Xarelto , HTN, COPD, CHF, recurrent right lower extremity cellulitis who came into the hospital for evaluation of right lower extremity with increasing edema and pain. Right lower extremity cellulitis, acute Sepsis, SIRS - HR 120s, Neutrophil count 87 Severe stasis dermatitis bilaterally. 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 - Wound care. Patient will likely require outpatient wound care as well. - Patient will benefit from SNF placement UTI - Cx growing Klebsiella, sensitive to Keflex. Will continue abx. A. fib, chronic with RVR - Heart rate in the 120s - 130's - Possibly related to infectious process - Continue Metoprolol 75mg Q8hrs, Diltiazem 90mg Q6hrs. - Will start Diltiazem drip as his heart rate is not improving. - Will consider cardiology consult, if rate control not achieved within 24 hours or so. - Continue Xarelto for anti-coagulation. Acute kidney injury chronic kidney disease stage 3. - Creatinine 1.5 - 1.6. This maybe the new baseline. Full code. Xarelto. Discharge plan: If heart rate is better controlled ( below 100), we will consider discharging patient to SNF. 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 Problem Qualifiers (1) Cellulitis, leg: Qualified Codes: L03.115 - Cellulitis of right lower limb Ahmed,Shahabuddin DO Jul 03, 2017 13:13
[2017-07-03] MEDS: DILTIAZEM INJ 125 MG in SODIUM CHLORIDE 0.9% INJ 100 ML IV PRN (20:14)
[2017-07-03] MEDS: RIVAROXABAN 20 MG TAB PO SCH (20:37)
[2017-07-04] VITALS (15 sets, daily range): BP systolic 100–121; BP diastolic 57–72; PULSE 60–120; RESP 18–20; TEMP 97.4–98.1; O2SAT 93–98
[2017-07-04] MEDS: METOPROLOL TARTRATE 50 MG TAB PO SCH ×3 (00:20→17:00)
[2017-07-04] MEDS: DILTIAZEM HCL 90 MG TAB PO SCH ×5 (00:20→23:51)
[2017-07-04] MEDS: LORazepam 2 MG/ML VIAL IV PUSH PRN ×2 (00:31→17:07)
[2017-07-04] MEDS: DILTIAZEM INJ 125 MG in SODIUM CHLORIDE 0.9% INJ 100 ML IV PRN (03:18)
[2017-07-04] MEDS: RESP: IPRATROPIUM 0.5 MG/2.5 ML NEB NEB SCH ×4 (03:25→21:49)
[2017-07-04] MEDS: CEPHALEXIN MONOHYDRATE 500 MG CAP PO SCH ×3 (05:43→21:20)
[2017-07-04] MEDS: THIAMINE HCL 100 MG TAB PO SCH (09:33)
[2017-07-04] MEDS: DOCUSATE SODIUM 50 MG/SENNA 8.6 MG TAB PO SCH ×2 (09:34→21:21)
[2017-07-04] MEDS: SULFAMETHOXAZOLE-TRIMETHOPRIM DS 800-160 MG TAB PO SCH ×2 (09:34→21:20)
[2017-07-04] MEDS: SODIUM CHLORIDE 0.9% FLUSH 10 ML FLUSH IV FLUSH SCH ×2 (09:34→21:21)
[2017-07-04] MEDS: TORSEMIDE 5 MG TAB PO SCH ×2 (09:34→17:04)
--- NOTE | 2017-07-04 14:26 | HHI.PR ---
Subjective Remarks Follow up for bilateral lower ext stasis dermatitis with superimposed right sided cellulitis. Patient is doing well. Denies any chest pain, SOB, fever, chills. Would like to get out of the bed. No fever, chills. Objective Vitals Vital Signs Date Time Temp Pulse Resp B/P (MAP) Pulse Ox O2 Delivery O2 Flow Rate FiO2 07/04/17 12:30 72 116/72 (87) 07/04/17 12:15 71 120/72 (88) 07/04/17 12:00 97.5 73 18 121/65 (83) 97 07/04/17 11:45 69 110/64 (79) 07/04/17 11:30 70 104/61 (75) 07/04/17 08:33 97 Nasal Cannula 2.00 07/04/17 08:00 97.4 69 18 101/60 (74) 95 07/04/17 08:00 Room Air 07/04/17 04:00 97.7 120 20 104/63 (77) 95 07/04/17 03:28 93 07/04/17 03:18 120 104/53 07/04/17 00:00 98.1 115 20 113/66 (82) 93 07/03/17 21:00 98.0 138 20 110/65 (80) 95 07/03/17 20:40 98.0 136 20 109/64 (79) 95 07/03/17 20:25 97.9 138 20 117/68 (84) 95 07/03/17 20:14 139 110/64 07/03/17 20:13 98.0 135 20 108/68 (81) 96 07/03/17 20:10 97.7 139 20 110/64 (79) 95 07/03/17 20:00 Room Air 07/03/17 20:00 139 07/03/17 18:48 136 07/03/17 16:05 99 21 07/03/17 16:00 97.5 130 20 119/64 (82) 95 I/O 07/03/17 07/03/17 07/03/17 07/04/17 07/04/17 07/04/17 07:00 15:00 23:00 07:00 15:00 23:00 Intake Total 360 ml 720 ml 20 ml Output Total 1000 ml 1100 ml 650 ml Balance -640 ml -380 ml -630 ml Intake Oral 360 ml 720 ml 20 ml Output Urine Total 1000 ml 1100 ml 650 ml # Bowel Movements 0 0 Result Diagram: 07/01/17 1315 07/01/17 1315 Imaging Last Impressions Chest X-Ray 07/03/17 0000 Signed Impressions: Service Date/Time: Monday, July 03, 2017 02:09 - CONCLUSION: No acute disease. Cardiomegaly. Hemal Muñoz MD Objective Remarks GENERAL: Alert, Oriented x 3, NAD. SKIN: Warm and dry. HEAD: Normocephalic. EYES: No scleral icterus. No injection or drainage. NECK: Supple, trachea midline. No JVD or lymphadenopathy. CARDIOVASCULAR: Irreg Irreg, tachycardic without murmurs, gallops, or rubs. RESPIRATORY: Breath sounds equal bilaterally. No accessory muscle use. GASTROINTESTINAL: Abdomen soft, non-tender, nondistended. MUSCULOSKELETAL: significant bilateral lower ext venous stasis. Erythema on the right leg is improved. small ulcer covered with dressing on the right lower ext. BACK: Nontender without obvious deformity. No CVA tenderness. Procedures None. A/P Problem List: (1) Cellulitis, leg ICD Code: L03.119 - Cellulitis of unspecified part of limb Status: Acute (2) CHF (congestive heart failure) ICD Code: I50.9 - Heart failure, unspecified Status: Chronic (3) A-fib ICD Code: I48.91 - Unspecified atrial fibrillation Status: Chronic (4) COPD (chronic obstructive pulmonary disease) ICD Code: J44.9 - Chronic obstructive pulmonary disease, unspecified Status: Chronic (5) Acute renal failure ICD Code: N17.9 - Acute kidney failure, unspecified Status: Acute Assessment and Plan Patient is a 61-year-old male with primary medical history of A. fib on Xarelto , HTN, COPD, CHF, recurrent right lower extremity cellulitis who came into the hospital for evaluation of right lower extremity with increasing edema and pain. Right lower extremity cellulitis, acute Sepsis, SIRS - HR 120s, Neutrophil count 87 Severe stasis dermatitis bilaterally. 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 - Wound care. Patient will likely require outpatient wound care as well. - Patient will benefit from SNF placement UTI - Cx growing Klebsiella, sensitive to Keflex. Will continue abx. A. fib, chronic with RVR - Heart rate better controlled today. - Continue Metoprolol 75mg Q8hrs, Diltiazem 90mg Q6hrs. - Wean off Diltiazem drip today and continue PO medications. - Continue Xarelto for anti-coagulation. Acute kidney injury chronic kidney disease stage 3. - Creatinine 1.5 - 1.6. This maybe the new baseline. Full code. Xarelto Problem Qualifiers (1) Cellulitis, leg: Qualified Codes: L03.115 - Cellulitis of right lower limb Chantell Liz DO Jul 04, 2017 2:26 pm
[2017-07-04] MEDS: RIVAROXABAN 20 MG TAB PO SCH (21:21)
[2017-07-05] VITALS (12 sets, daily range): BP systolic 104–131; BP diastolic 57–86; PULSE 69–141; RESP 18–20; TEMP 97.3–98.9; O2SAT 92–97
[2017-07-05] MEDS: METOPROLOL TARTRATE 50 MG TAB PO SCH ×3 (01:00→17:38)
[2017-07-05] MEDS: RESP: IPRATROPIUM 0.5 MG/2.5 ML NEB NEB SCH ×4 (04:02→21:36)
[2017-07-05] MEDS: CEPHALEXIN MONOHYDRATE 500 MG CAP PO SCH ×3 (05:26→21:44)
[2017-07-05] MEDS: DILTIAZEM HCL 90 MG TAB PO SCH ×3 (05:34→17:39)
[2017-07-05] MEDS: THIAMINE HCL 100 MG TAB PO SCH (07:57)
[2017-07-05] MEDS: SULFAMETHOXAZOLE-TRIMETHOPRIM DS 800-160 MG TAB PO SCH ×2 (07:57→21:44)
[2017-07-05] MEDS: DOCUSATE SODIUM 50 MG/SENNA 8.6 MG TAB PO SCH ×2 (07:57→21:44)
[2017-07-05] MEDS: TORSEMIDE 5 MG TAB PO SCH ×2 (07:57→17:39)
[2017-07-05] MEDS: SODIUM CHLORIDE 0.9% FLUSH 10 ML FLUSH IV FLUSH SCH ×2 (07:57→21:44)
[2017-07-05] MEDS: LORazepam 2 MG/ML VIAL IV PUSH PRN ×2 (07:58→21:44)
[2017-07-05 09:24] LABS: POTASSIUM 4.8 MEQ/L (3.5-5.1)
[2017-07-05] MEDS ORDERED: METOPROLOL TARTRATE 5 MG/5 ML VIAL IV PUSH PRN (10:15)
--- NOTE | 2017-07-05 13:28 | HHI.PR ---
Subjective Remarks Follow up for bilateral lower ext stasis dermatitis with superimposed right sided cellulitis. Mr. Nix is currently doing well. He denies any chest pain, shortness of breath, fever or chills. His legs are improving. Objective Vitals Vital Signs Date Time Temp Pulse Resp B/P (MAP) Pulse Ox O2 Delivery O2 Flow Rate FiO2 07/05/17 12:00 97.9 130 18 118/62 (80) 92 07/05/17 08:00 97.3 125 18 118/76 (90) 95 07/05/17 06:42 98.4 86 20 109/62 (78) 97 07/05/17 06:18 115 07/05/17 05:34 140 118/58 (78) 97 07/05/17 04:00 98.9 100 19 108/57 (74) 95 07/05/17 03:51 Nasal Cannula 2.00 Humidified 07/05/17 01:08 78 104/62 (76) 96 07/05/17 00:00 98.9 69 20 112/59 (76) 95 07/05/17 00:00 Nasal Cannula 2.00 Humidified 07/04/17 23:50 81 07/04/17 21:49 98 Nasal Cannula 2.00 07/04/17 20:14 60 07/04/17 20:00 97.7 65 19 100/57 (71) 98 07/04/17 20:00 Nasal Cannula 2.00 Humidified 07/04/17 16:00 97.7 88 18 115/62 (79) 97 I/O 07/04/17 07/04/17 07/04/17 07/05/17 07/05/17 07/05/17 07:00 15:00 23:00 07:00 15:00 23:00 Intake Total 20 ml 1200 ml 240 ml Output Total 650 ml 750 ml 500 ml Balance -630 ml 450 ml -260 ml Intake Oral 20 ml 1200 ml 240 ml Output Urine Total 650 ml 750 ml 500 ml # Bowel Movements 0 0 Result Diagram: 07/01/17 1315 07/05/17 0700 Imaging Last Impressions Chest X-Ray 07/03/17 0000 Signed Impressions: Service Date/Time: Monday, July 03, 2017 02:09 - CONCLUSION: No acute disease. Cardiomegaly. Hemal Muñoz MD Objective Remarks GENERAL: Alert, Oriented x 3, NAD. SKIN: Warm and dry. HEAD: Normocephalic. EYES: No scleral icterus. No injection or drainage. NECK: Supple, trachea midline. No JVD or lymphadenopathy. CARDIOVASCULAR: Irreg Irreg, tachycardic without murmurs, gallops, or rubs. RESPIRATORY: Breath sounds equal bilaterally. No accessory muscle use. GASTROINTESTINAL: Abdomen soft, non-tender, nondistended. MUSCULOSKELETAL: significant bilateral lower ext venous stasis. Erythema on the right leg is improved. small ulcer covered with dressing on the right lower ext. BACK: Nontender without obvious deformity. No CVA tenderness. Procedures None. A/P Problem List: (1) Cellulitis, leg ICD Code: L03.119 - Cellulitis of unspecified part of limb Status: Acute (2) CHF (congestive heart failure) ICD Code: I50.9 - Heart failure, unspecified Status: Chronic (3) A-fib ICD Code: I48.91 - Unspecified atrial fibrillation Status: Chronic (4) COPD (chronic obstructive pulmonary disease) ICD Code: J44.9 - Chronic obstructive pulmonary disease, unspecified Status: Chronic (5) Acute renal failure ICD Code: N17.9 - Acute kidney failure, unspecified Status: Acute Assessment and Plan Patient is a 61-year-old male with primary medical history of A. fib on Xarelto , HTN, COPD, CHF, recurrent right lower extremity cellulitis who came into the hospital for evaluation of right lower extremity with increasing edema and pain. A. fib, chronic with RVR - Heart rate was transiently better. We had him on Diltiazem drip which we discontinued. - Continue Metoprolol 75mg Q8hrs, Diltiazem 90mg Q6hrs. - Due to difficulty controlling heart rate, we will request a cardiology consultation. - Continue Xarelto for anti-coagulation. Right lower extremity cellulitis, acute Sepsis, SIRS - HR 120s, Neutrophil count 87 Severe stasis dermatitis bilaterally. - Blood cultures negative so far. 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 Patient will likely require outpatient wound care as well. - Patient will benefit from SNF placement UTI - Cx growing Klebsiella, sensitive to Keflex. Will continue abx. Acute kidney injury chronic kidney disease stage 3. - Creatinine 1.5 - 1.6. This maybe the new baseline. Full code. Xarelto Problem Qualifiers (1) Cellulitis, leg: Qualified Codes: L03.115 - Cellulitis of right lower limb Chantell Liz DO Jul 05, 2017 1:28 pm
--- NOTE | 2017-07-05 14:32 | MB ---
cc: MAUDE MAZARIEGOS MD DATE OF CONSULTATION: 07/05/2017. REASON FOR CONSULTATION: Atrial fibrillation. HISTORY OF PRESENT ILLNESS: The patient is a pleasant 71-year-old gentleman who sees my partner, Dr. Page, for a history of chronic atrial fibrillation on Xarelto, hypertension, COPD, congestive heart failure, morbid obesity. The patient presented with increasing lower extremity edema and pain and right lower extremity cellulitis. Over the last few days of the patient's admission he has been treated with antibiotics and is now on oral diuretics. His atrial fibrillation fast today, and thus I was consulted. However his atrial fibrillation has now slowed down and he is not on a Cardizem drip. He denies any specific symptoms such as chest pain, shortness of breath, lightheadedness, dizziness. PAST MEDICAL HISTORY: 1. Morbid obesity. 2. Chronic atrial fibrillation on Xarelto. 3. Hypertension. 4. COPD. 5. Lower extremity cellulitis. 6. Diastolic congestive heart failure with a normal ejection fraction of 65% by echocardiogram in January of 2017. 7. Hyponatremia. 8. Renal insufficiency. CURRENT MEDICATIONS: 1. Lopressor 75 milligrams p.o. q. 8 hours. 2. Cardizem 90 milligrams p.o. q. 6 hours. 3. Atrovent. 4. Keflex. 5. Demadex. 6. Thiamine. 7. Xarelto 20 milligrams at bedtime. 8. Ativan. ALLERGIES: NO KNOWN DRUG ALLERGIES. PHYSICAL EXAMINATION: VITAL SIGNS: Afebrile, pulse 80, respiratory rate 18, blood pressure 118/66, satting 92%. GENERAL: A pleasant morbidly obese gentleman in no distress. NECK: No jugular venous distention. LUNGS: Clear to auscultation bilaterally. CARDIOVASCULAR: Irregularly irregular rhythm with a regular rate. No murmur appreciated. ABDOMEN: Benign. EXTREMITIES: 2+ chronic-appearing edema bilaterally in the lower extremities. LABORATORY DATA: White count 6.8, hematocrit 27.4, platelet count 294,000. Sodium 138, potassium 4.8, chloride 107, bicarbonate 24, BUN 32, creatinine 1.51. Current telemetry shows a rate-controlled atrial fibrillation. I see no recent EKG in the chart. IMPRESSION: 1. Rapid atrial fibrillation. The patient's atrial fibrillation has been intermittently rapid though it is currently controlled. I will increase his beta devin slightly. He is currently anticoagulated with Xarelto. His lower extremity edema seems stable and his primary issues now are likely his cellulitis. Given that he seems stable from a cardiac standpoint, I will sign off but will be available as needed. Please call with any questions. Thank you again for the opportunity to participate in this patient's care. MD AURY Win/BRIAN /1:55 PM /2:22 PM
[2017-07-05 19:16] LABS: AUTOMATED NEUTROPHIL # 4.3 TH/MM3 (1.8-7.7); BASOPHIL % 0.9 % (0.0-2.0); EOSINOPHIL # 0.1 TH/MM3 (0-0.4); EOSINOPHIL % 2.5 % (0.0-4.0); HEMATOCRIT 28.8 % (39.0-51.0); HEMO FLAGS DIFF FINAL; LYMPH % 12.1 % (9.0-44.0); LYMPHOCYTE # 0.7 TH/MM3 (1.0-4.8); MEAN CELL VOLUME 94.4 FL (80.0-100.0); MEAN CORPUSCULAR HEMOGLOBIN 30.2 PG (27.0-34.0); MONO % 6.9 % (0.0-8.0); NEUT % 77.6 % (16.0-70.0); PLATELET COUNT 302 TH/MM3 (150-450); RED BLOOD COUNT 3.05 MIL/MM3 (4.50-5.90); RED CELL DISTRIBUTION WIDTH 16.6 % (11.6-17.2); WHITE BLOOD COUNT 5.5 TH/MM3 (4.0-11.0)
[2017-07-05] MEDS: RIVAROXABAN 20 MG TAB PO SCH (21:44)
[2017-07-06] VITALS (10 sets, daily range): BP systolic 97–120; BP diastolic 64–79; PULSE 70–139; RESP 18–20; TEMP 97.5–98.2; O2SAT 92–96
[2017-07-06] MEDS: DILTIAZEM HCL 90 MG TAB PO SCH ×5 (00:35→23:49)
[2017-07-06] MEDS: METOPROLOL TARTRATE 50 MG TAB PO SCH ×4 (00:35→23:50)
[2017-07-06] MEDS: RESP: IPRATROPIUM 0.5 MG/2.5 ML NEB NEB SCH ×4 (04:03→20:05)
[2017-07-06] MEDS: CEPHALEXIN MONOHYDRATE 500 MG CAP PO SCH ×3 (05:27→21:10)
[2017-07-06] MEDS: TORSEMIDE 5 MG TAB PO SCH ×2 (08:07→17:30)
[2017-07-06] MEDS: SULFAMETHOXAZOLE-TRIMETHOPRIM DS 800-160 MG TAB PO SCH ×2 (08:07→21:09)
[2017-07-06] MEDS: DOCUSATE SODIUM 50 MG/SENNA 8.6 MG TAB PO SCH ×2 (08:07→21:09)
[2017-07-06] MEDS: THIAMINE HCL 100 MG TAB PO SCH (08:07)
[2017-07-06] MEDS: SODIUM CHLORIDE 0.9% FLUSH 10 ML FLUSH IV FLUSH SCH ×2 (09:00→21:08)
[2017-07-06] MEDS ORDERED: CARD360C PO (12:38)
[2017-07-06] MEDS ORDERED: METO-309 PO (12:38)
[2017-07-06] MEDS ORDERED: CEPH500C PO (12:40)
--- NOTE | 2017-07-06 15:01 | HHI.DS ---
Discharge Summary Admission Date Jun 30, 2017 at 18:05 Discharge Date: Jul 06, 2017 Admitting Diagnosis (1) Cellulitis, leg ICD Code: L03.119 - Cellulitis of unspecified part of limb Status: Acute (2) CHF (congestive heart failure) ICD Code: I50.9 - Heart failure, unspecified Status: Chronic (3) A-fib ICD Code: I48.91 - Unspecified atrial fibrillation Status: Chronic (4) COPD (chronic obstructive pulmonary disease) ICD Code: J44.9 - Chronic obstructive pulmonary disease, unspecified Status: Chronic (5) Acute renal failure ICD Code: N17.9 - Acute kidney failure, unspecified Status: Acute Procedures None. Brief History - From Admission Written by Karyn Aviles, acting as scribe for Dr. Liz on 06/30/17 at 18: 04. This note was transcribed by shannon Aviles PA-C. I, Dr. Cr Liz personally performed the history, physical exam, and medical decision making; and confirmed the accuracy of the information in the transcribed note. Authenticated by Dr. Cr Liz on 06/30/17 at 18:05. Patient is a 61-year-old male with primary medical history of A. fib on Xarelto , HTN, COPD, CHF, recurrent right lower extremity cellulitis who came into the hospital for evaluation of right lower extremity with increasing edema and pain. Patient states that his home health care had noticed that the redness on his right lower extremity have increased and gotten from below the knee all the way up to his mid thigh area. He also states that for the past few days he had noticed that the pain on the right lower extremity has increased, he is unable to bear weight where in he used to walk using that leg. He reports high temperature, shaking couple of days ago but states that it has resolved and has not have any today. Patient also notes that in the past 2 days that he has some burning sensation with urination. Has not taken any antibiotics since last admission to the hospital. Right lower extremity described as dull and achy pain rated 8/10, radiates throughout the right lower extremity, aggravated by movement, does not know what relieves it. Denies SOB/ dyspnea. Denies chest pain, palpitations, headaches, dizziness. Denies n/v/d. Denies hematuria. CBC/BMP: 07/05/17 1825 07/05/17 0700 Significant Findings Laboratory Tests Test 07/05/17 07:00 07/05/17 18:25 Blood Urea Nitrogen 32 MG/DL (7-18) Creatinine 1.51 MG/DL (0.60-1.30) Estimat Glomerular Filtration Rate 47 ML/MIN (>89) Red Blood Count 3.05 MIL/MM3 (4.50-5.90) Hemoglobin 9.2 GM/DL (13.0-17.0) Hematocrit 28.8 % (39.0-51.0) Neutrophils (%) (Auto) 77.6 % (16.0-70.0) Lymphocytes # (Auto) 0.7 TH/MM3 (1.0-4.8) PE at Discharge GENERAL: Alert, Oriented x 3, NAD. SKIN: Warm and dry. HEAD: Normocephalic. EYES: No scleral icterus. No injection or drainage. NECK: Supple, trachea midline. No JVD or lymphadenopathy. CARDIOVASCULAR: Irreg Irreg, tachycardic without murmurs, gallops, or rubs. RESPIRATORY: Breath sounds equal bilaterally. No accessory muscle use. GASTROINTESTINAL: Abdomen soft, non-tender, nondistended. MUSCULOSKELETAL: significant bilateral lower ext venous stasis. Erythema on the right leg is improved. small ulcer covered with dressing on the right lower ext. BACK: Nontender without obvious deformity. No CVA tenderness. Hospital Course Patient is a 61-year-old male with primary medical history of A. fib on Xarelto , HTN, COPD, CHF, recurrent right lower extremity cellulitis who came into the hospital for evaluation of right lower extremity with increasing edema and pain. A. fib, chronic with RVR etiology consulted patient placed on Cardizem with Lopressor still difficult to be controlled, cardiology added digoxin discharge has to be held for another day, cardiology recommending need for ablation, patient will be referred as an outpatient to Dr. Mejias Right lower extremity cellulitis, acute Sepsis, SIRS - HR 120s, Neutrophil count 87 Severe stasis dermatitis bilaterally. - Blood cultures negative so far. 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 Patient will likely require outpatient wound care as well. - Patient will benefit from SNF placement UTI - Cx growing Klebsiella, sensitive to Keflex. continue abx. Acute kidney injury chronic kidney disease stage 3. - Creatinine 1.5 - 1.6. This maybe the new baseline. [id number]-[id number] encounter performed with the patient on discharge day, as well as physical exam, summary of hospitalization course and postdischarge plan has been D/W the patient. D/W nurse D/W case reviewer. Discharge medications reviewed and printed and signed, post discharge follow up visit with PCP and other specialist as well as Brief hospital course and discharge summary has been placed. Pt Condition on Discharge: Fair Discharge Disposition: Discharge to SNF Discharge Time: > 30 minutes Discharge Instructions DIET: Follow Instructions for: Heart Healthy Diet Activities you can perform: See Additionl Instruction Other Activity Instructions: per pt New Medications: Diltiazem CD 24 HR (Cardizem CD 24 HR) 360 Mg Caper 360 MG PO DAILY for afib, #30 CAP 0 Refills Cephalexin (Cephalexin) 500 Mg Cap 500 MG PO Q8HR for uti, #6 CAP Metoprolol Tartrate (Lopressor) 50 Mg Tab 100 MG PO Q8H for afib, #90 TAB Continued Medications: Albuterol 18 GM Inh (Ventolin Hfa 18 GM Inh) 90 Mcg/Act Aer 1 PUFF INH Q4H PRN for SHORTNESS OF BREATH, #1 INHALER 3 Refills Atorvastatin (Atorvastatin) 40 Mg Tab 40 MG PO HS for Cholesterol Management, #30 TAB 0 Refills Budesonide-Formoterol Inh (Symbicort Inh) 160-4.5 Mcg/Act Aero 2 PUFF INH Q12HR for Breathing Treatment, #1 INHALER 3 Refills Ipratropium HFA 12.9 GM Inh (Atrovent HFA 12.9 GM Inh) 17 Mcg/Act Aer 2 PUFF INH Q6HR PRN for SHORTNESS OF BREATH, #1 INHALER 3 Refills Ipratropium HFA 12.9 GM Inh (Atrovent HFA 12.9 GM Inh) 17 Mcg/Act Aer 2 PUFF INH Q6HR PRN for SHORTNESS OF BREATH, #1 INHALER 0 Refills Lactobacillus Acidophilus (Lactobacillus Acidophilus) 1 Tab Tab 1 TAB PO TIDAC for Nutritional Supplement, #30 TAB 0 Refills Pantoprazole (Pantoprazole) 40 Mg Tab 40 MG PO Q12HR for gastritis, #62 TAB Rivaroxaban (Xarelto) 20 Mg Tab 20 MG PO DAILY WITH DINNER for Blood Clot Prevention, TAB 0 Refills Johnny Up MD Jul 06, 2017 15:01
[2017-07-06] MEDS ORDERED: DIGOXIN 0.5 MG/2 ML VIAL IV PUSH ONE (16:15)
[2017-07-06] MEDS: LORazepam 2 MG/ML VIAL IV PUSH PRN (17:52)
[2017-07-06] MEDS: RIVAROXABAN 20 MG TAB PO SCH (21:09)
[2017-07-06] MEDS: DIGOXIN 0.5 MG/2 ML VIAL IV PUSH SCH (21:10)
[2017-07-07] VITALS (11 sets, daily range): BP systolic 98–121; BP diastolic 56–75; PULSE 70–135; RESP 16–22; TEMP 97.3–98.7; O2SAT 93–98
[2017-07-07] MEDS: RESP: IPRATROPIUM 0.5 MG/2.5 ML NEB NEB SCH ×3 (03:30→21:19)
[2017-07-07] MEDS: DIGOXIN 0.5 MG/2 ML VIAL IV PUSH SCH (04:29)
[2017-07-07] MEDS: ACETAMINOPHEN 325 MG TAB PO PRN (05:14)
[2017-07-07] MEDS: CEPHALEXIN MONOHYDRATE 500 MG CAP PO SCH ×3 (05:14→21:35)
[2017-07-07] MEDS: DILTIAZEM HCL 90 MG TAB PO SCH ×3 (05:14→18:00)
[2017-07-07] MEDS: SODIUM CHLORIDE 0.9% FLUSH 10 ML FLUSH IV FLUSH SCH ×2 (09:00→19:48)
[2017-07-07] MEDS: SULFAMETHOXAZOLE-TRIMETHOPRIM DS 800-160 MG TAB PO SCH ×2 (10:27→19:47)
[2017-07-07] MEDS: TORSEMIDE 5 MG TAB PO SCH ×2 (10:27→18:00)
[2017-07-07] MEDS: METOPROLOL TARTRATE 50 MG TAB PO SCH ×2 (10:27→17:00)
[2017-07-07] MEDS: THIAMINE HCL 100 MG TAB PO SCH (10:28)
[2017-07-07] MEDS: DOCUSATE SODIUM 50 MG/SENNA 8.6 MG TAB PO SCH ×2 (10:28→19:47)
--- NOTE | 2017-07-07 11:03 | HHI.PR ---
Subjective Remarks delayed entry note (pt was supposed to be discharged yesterday so DC lucy entered " pt seen and examined on 07/06 no acute issues , he denies cp , agreed on dc to rehab Objective Vitals Vital Signs Date Time Temp Pulse Resp B/P (MAP) Pulse Ox O2 Delivery O2 Flow Rate FiO2 07/07/17 08:51 95 07/07/17 08:00 97.9 73 20 102/56 (71) 95 07/07/17 04:00 97.5 95 16 98/64 (75) 94 07/07/17 03:32 94 07/07/17 00:00 97.3 135 22 121/75 (90) 94 07/06/17 20:16 91 07/06/17 20:05 92 Nasal Cannula 4.00 07/06/17 20:00 Nasal Cannula 2.00 07/06/17 20:00 97.8 88 20 97/75 (82) 93 07/06/17 18:32 84 07/06/17 16:00 98.1 139 18 120/71 (87) 96 07/06/17 12:12 94 Room Air 07/06/17 12:00 97.8 70 18 111/64 (80) 96 I/O 07/06/17 07/06/17 07/06/17 07/07/17 07/07/17 07/07/17 07:00 15:00 23:00 07:00 15:00 23:00 Intake Total 840 ml 720 ml 240 ml Output Total 1600 ml 1000 ml Balance -760 ml 720 ml -760 ml Intake Oral 840 ml 720 ml 240 ml Output Urine Total 1600 ml 1000 ml # Voids 4 # Bowel Movements 0 0 Result Diagram: 07/05/17 1825 07/05/17 0700 Objective Remarks GENERAL: This is a well-nourished, well-developed patient, in no apparent distress. CARDIOVASCULAR: irreg irreg.without murmurs, gallops, or rubs. RESPIRATORY: Breath sounds equal bilaterally. No wheezes, rales, or rhonchi. GASTROINTESTINAL: Abdomen soft, non-tender, nondistended. Normal active bowel sounds MUSCULOSKELETAL: Extremities without clubbing, cyanosis, or edema. NEURO: Alert & Oriented x4 to person, place, time, situation. Moves all ext x4 Procedures None. A/P Problem List: (1) Cellulitis, leg ICD Code: L03.119 - Cellulitis of unspecified part of limb Status: Acute (2) CHF (congestive heart failure) ICD Code: I50.9 - Heart failure, unspecified Status: Chronic (3) A-fib ICD Code: I48.91 - Unspecified atrial fibrillation Status: Chronic (4) COPD (chronic obstructive pulmonary disease) ICD Code: J44.9 - Chronic obstructive pulmonary disease, unspecified Status: Chronic (5) Acute renal failure ICD Code: N17.9 - Acute kidney failure, unspecified Status: Acute Assessment and Plan 07/06 : plan to dc to rehab today Patient is a 61-year-old male with primary medical history of A. fib on Xarelto , HTN, COPD, CHF, recurrent right lower extremity cellulitis who came into the hospital for evaluation of right lower extremity with increasing edema and pain. A. fib, chronic with RVR - Heart rate was transiently better. We had him on Diltiazem drip which we discontinued. - Continue Metoprolol 75mg Q8hrs, Diltiazem 90mg Q6hrs. - Due to difficulty controlling heart rate, we will request a cardiology consultation. - Continue Xarelto for anti-coagulation. Right lower extremity cellulitis, acute Sepsis, SIRS - HR 120s, Neutrophil count 87 Severe stasis dermatitis bilaterally. - Blood cultures negative so far. 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 Patient will likely require outpatient wound care as well. - Patient will benefit from SNF placement UTI - Cx growing Klebsiella, sensitive to Keflex. Will continue abx. Acute kidney injury chronic kidney disease stage 3. - Creatinine 1.5 - 1.6. This maybe the new baseline. Full code. Xarelto Problem Qualifiers (1) Cellulitis, leg: Qualified Codes: L03.115 - Cellulitis of right lower limb Johnny Up MD Jul 07, 2017 11:03
--- NOTE | 2017-07-07 13:56 | HHI.PR ---
Subjective Remarks Looks stable no palpitation or short of breath or chest pain Heart rate in a better control except when he went to the bathroom it went up to 1:30 after discussing with the nurse and looking at the vitals log Objective Vitals Vital Signs Date Time Temp Pulse Resp B/P (MAP) Pulse Ox O2 Delivery O2 Flow Rate FiO2 07/07/17 12:00 98.5 111 20 107/57 (74) 98 07/07/17 08:51 95 07/07/17 08:00 97.9 73 20 102/56 (71) 95 07/07/17 04:00 97.5 95 16 98/64 (75) 94 07/07/17 03:32 94 07/07/17 00:00 97.3 135 22 121/75 (90) 94 07/06/17 20:16 91 07/06/17 20:05 92 Nasal Cannula 4.00 07/06/17 20:00 Nasal Cannula 2.00 07/06/17 20:00 97.8 88 20 97/75 (82) 93 07/06/17 18:32 84 07/06/17 16:00 98.1 139 18 120/71 (87) 96 I/O 07/06/17 07/06/17 07/06/17 07/07/17 07/07/17 07/07/17 07:00 15:00 23:00 07:00 15:00 23:00 Intake Total 840 ml 720 ml 240 ml Output Total 1600 ml 1000 ml Balance -760 ml 720 ml -760 ml Intake Oral 840 ml 720 ml 240 ml Output Urine Total 1600 ml 1000 ml # Voids 4 # Bowel Movements 0 0 Result Diagram: 07/05/17 1825 07/05/17 0700 Objective Remarks GENERAL: This is a well-nourished, well-developed patient, in no apparent distress. CARDIOVASCULAR: irreg irreg.without murmurs, gallops, or rubs. RESPIRATORY: Breath sounds equal bilaterally. No wheezes, rales, or rhonchi. GASTROINTESTINAL: Abdomen soft, non-tender, nondistended. Normal active bowel sounds MUSCULOSKELETAL: Extremities without clubbing, cyanosis, or edema. NEURO: Alert & Oriented x4 to person, place, time, situation. Moves all ext x4 Procedures None. A/P Problem List: (1) Cellulitis, leg ICD Code: L03.119 - Cellulitis of unspecified part of limb Status: Acute (2) CHF (congestive heart failure) ICD Code: I50.9 - Heart failure, unspecified Status: Chronic (3) A-fib ICD Code: I48.91 - Unspecified atrial fibrillation Status: Chronic (4) COPD (chronic obstructive pulmonary disease) ICD Code: J44.9 - Chronic obstructive pulmonary disease, unspecified Status: Chronic (5) Acute renal failure ICD Code: N17.9 - Acute kidney failure, unspecified Status: Acute Assessment and Plan 07/06 : plan to dc to rehab today 07/07: Patient heart rate went back up to 10/14/39 yesterday, cardiology was contacted and he was started on digoxin, and discharge was held for monitoring, will continue monitoring today and adjusting his rate control medicine, appreciate cardiology help Patient is a 61-year-old male with primary medical history of A. fib on Xarelto , HTN, COPD, CHF, recurrent right lower extremity cellulitis who came into the hospital for evaluation of right lower extremity with increasing edema and pain. A. fib, chronic with RVR - Heart rate was transiently better. We had him on Diltiazem drip which we discontinued. - Continue Metoprolol 75mg Q8hrs, Diltiazem 90mg Q6hrs. - Due to difficulty controlling heart rate, we will request a cardiology consultation. - Continue Xarelto for anti-coagulation. Right lower extremity cellulitis, acute Sepsis, SIRS - HR 120s, Neutrophil count 87 Severe stasis dermatitis bilaterally. - Blood cultures negative so far. - Lactic acid 1.6, [employer]ICER 1.6 - Switched Vanc/Zosyn to PO Keflex, Bactrim - Wound care. Patient will likely require outpatient wound care as well. - Patient will benefit from SNF placement UTI - Cx growing Klebsiella, sensitive to Keflex. Will continue abx. Acute kidney injury chronic kidney disease stage 3. - Creatinine 1.5 - 1.6. This maybe the new baseline. Full code. Xarelto Problem Qualifiers (1) Cellulitis, leg: Qualified Codes: L03.115 - Cellulitis of right lower limb Johnny Up MD Jul 07, 2017 13:56
--- NOTE | 2017-07-07 17:12 | PD.CARD.PN ---
Subjective Subjective Remarks Pt rates better on added digoxin, no complaints. Objective Medications Administered Medications Medications (Trade) Dose Ordered Sig/Delilah Route PRN Reason Start Time Stop Time Status Last Admin Dose Admin Sodium Chloride (NS Flush) 2 ml BID IV FLUSH 06/30/17 21:00 07/07/17 09:00 Acetaminophen (Tylenol) 650 mg Q4H PRN PO Headache, fever, pain 1-4 06/30/17 18:00 07/07/17 05:14 Ondansetron HCl (Zofran Inj) 4 mg Q6H PRN IVP NAUSEA OR VOMITING 06/30/17 18:00 06/30/17 20:18 Senna/Docusate Sodium (Coco-Colace) 1 tab BID PO 06/30/17 21:00 07/07/17 10:28 Sennosides (Senokot) 17.2 mg Q12H PRN PO Moderate constipation 06/30/17 18:00 07/06/17 08:19 Lactulose (Lactulose Liq) 30 ml DAILY PRN PO SEVERE CONSITIPATION 06/30/17 18:00 07/06/17 08:19 Rivaroxaban (Xarelto) 20 mg HS PO 06/30/17 21:00 07/06/17 21:09 Lorazepam (Ativan Inj) 1 mg Q2H PRN IV PUSH withdrawal symptoms/anxiety 06/30/17 20:15 07/06/17 17:52 Thiamine HCl (Vitamin B1) 100 mg DAILY PO 07/01/17 09:00 07/07/17 10:28 Cephalexin Monohydrate (Keflex) 500 mg Q8HR PO 07/02/17 22:00 07/07/17 12:14 Trimethoprim/ Sulfamethoxazole (Bactrim Ds 800-160 Mg) 1 tab Q12HR PO 07/02/17 21:00 07/07/17 10:27 Torsemide (Demadex) 10 mg BID@,18 PO 07/02/17 18:00 07/07/17 10:27 Ipratropium [place] (Atrovent Neb) 0.5 mg Q6HR NEB NEB 07/03/17 04:00 07/07/17 08:49 Diltiazem HCl (Cardizem) 90 mg Q6HR PO 07/03/17 12:00 07/07/17 12:14 Metoprolol Tartrate (Lopressor) 100 mg Q8H PO 07/05/17 17:00 07/07/17 10:27 Current Medications Medications (Trade) Dose Ordered Sig/Delilah Route Start Time Stop Time Status Last Admin (NS Flush) 2 ml UNSCH PRN IV FLUSH 06/30/17 18:00 (NS Flush) 2 ml BID IV FLUSH 06/30/17 21:00 07/07/17 09:00 (Tylenol) 650 mg Q4H PRN PO 06/30/17 18:00 07/07/17 05:14 (Zofran Inj) 4 mg Q6H PRN IVP 06/30/17 18:00 06/30/17 20:18 (Narcan Inj) 0.4 mg UNSCH PRN IV PUSH 06/30/17 18:00 (Coco-Colace) 1 tab BID PO 06/30/17 21:00 07/07/17 10:28 (Milk Of Magnesia Liq) 30 ml Q12H PRN PO 06/30/17 18:00 (Senokot) 17.2 mg Q12H PRN PO 06/30/17 18:00 07/06/17 08:19 (Dulcolax Supp) 10 mg DAILY PRN RECTAL 06/30/17 18:00 (Lactulose Liq) 30 ml DAILY PRN PO 06/30/17 18:00 07/06/17 08:19 (Xarelto) 20 mg HS PO 06/30/17 21:00 07/06/17 21:09 (Ativan Inj) 1 mg Q2H PRN IV PUSH 06/30/17 20:15 07/06/17 17:52 (Vitamin B1) 100 mg DAILY PO 07/01/17 09:00 07/07/17 10:28 (Keflex) 500 mg Q8HR PO 07/02/17 22:00 07/07/17 12:14 (Bactrim Ds 800-160 Mg) 1 tab Q12HR PO 07/02/17 21:00 07/07/17 10:27 (Demadex) 10 mg BID@09,18 PO 07/02/17 18:00 07/07/17 10:27 (Atrovent Neb) 0.5 mg Q6HR NEB NEB 07/03/17 04:00 07/07/17 08:49 (Atrovent Neb) 0.5 mg Q2HR NEB PRN NEB 07/03/17 01:15 (Cardizem) 90 mg Q6HR PO 07/03/17 12:00 07/07/17 12:14 (Lopressor) 100 mg Q8H PO 07/05/17 17:00 07/07/17 10:27 (Lanoxin) 0.125 mg DAILY PO 07/08/17 09:00 Vital Signs / I&O Vital Signs Date Time Temp Pulse Resp B/P (MAP) Pulse Ox O2 Delivery O2 Flow Rate FiO2 07/07/17 16:44 75 07/07/17 12:00 98.5 111 20 107/57 (74) 98 07/07/17 08:51 95 07/07/17 08:00 97.9 73 20 102/56 (71) 95 07/07/17 07:15 98 Nasal Cannula 2.00 07/07/17 04:00 97.5 95 16 98/64 (75) 94 07/07/17 03:32 94 07/07/17 00:00 97.3 135 22 121/75 (90) 94 07/06/17 20:16 91 07/06/17 20:05 92 Nasal Cannula 4.00 07/06/17 20:00 Nasal Cannula 2.00 07/06/17 20:00 97.8 88 20 97/75 (82) 93 07/06/17 18:32 84 I/O 07/06/17 07/06/17 07/06/17 07/07/17 07/07/17 07/07/17 07:00 15:00 23:00 07:00 15:00 23:00 Intake Total 840 ml 720 ml 240 ml Output Total 1600 ml 1000 ml Balance -760 ml 720 ml -760 ml Intake Oral 840 ml 720 ml 240 ml Output Urine Total 1600 ml 1000 ml # Voids 4 # Bowel Movements 0 0 1 Physical Exam GENERAL: morbidly obese, well-developed patient, in no apparent distress. CARDIOVASCULAR: Regular rate and irregular rhythm without murmurs, gallops, or rubs. RESPIRATORY: Clear to auscultation. Breath sounds equal bilaterally. No wheezes , rales, or rhonchi. GASTROINTESTINAL: Abdomen soft, non-tender, nondistended. Normal, active bowel sounds MUSCULOSKELETAL: Extremities without clubbing, cyanosis, or edema. NEURO: Alert & Oriented x4 to person, place, time, situation. Moves all ext x4 Laboratory Laboratory Tests Test 07/07/17 06:10 Digoxin Level 1.6 NG/ML Imaging Last Impressions Chest X-Ray 07/03/17 0000 Signed Impressions: Service Date/Time: Thursday, July 03, 2017 02:09 - CONCLUSION: No acute disease. Cardiomegaly. Hemal Muñoz MD Assessment and Plan Problem List: (1) A-fib ICD Codes: I48.91 - Unspecified atrial fibrillation Status: Chronic Plan: On xarelto, rates better on dig but may need another ablation; will set him up w/ Dr. Page as an outpatient; ok to d/c home from cardiac standpoint. Roni Goodman MD Jul 07, 2017 17:12
[2017-07-07] MEDS: RIVAROXABAN 20 MG TAB PO SCH (19:48)
[2017-07-07] MEDS: LORazepam 2 MG/ML VIAL IV PUSH PRN (21:35)
[2017-07-08 00:06] VITALS: BP 98/58; PULSE 133; RESP 18; TEMP 98.4; O2SAT 92
[2017-07-08] MEDS: DILTIAZEM HCL 90 MG TAB PO SCH ×3 (00:10→14:12)
[2017-07-08] MEDS: METOPROLOL TARTRATE 50 MG TAB PO SCH ×2 (00:10→09:45)
[2017-07-08 04:00] VITALS: BP 93/52; PULSE 77; RESP 18; TEMP 97.7; O2SAT 96
[2017-07-08] MEDS: RESP: IPRATROPIUM 0.5 MG/2.5 ML NEB NEB SCH ×2 (04:00→09:23)
[2017-07-08 04:03] VITALS: O2SAT 94
[2017-07-08] MEDS: CEPHALEXIN MONOHYDRATE 500 MG CAP PO SCH ×2 (05:23→14:12)
[2017-07-08 08:00] VITALS: BP 97/61; PULSE 76; PULSE 78; RESP 18; TEMP 97.7; O2SAT 98
[2017-07-08] MEDS: SODIUM CHLORIDE 0.9% FLUSH 10 ML FLUSH IV FLUSH SCH (09:00)
[2017-07-08] MEDS ORDERED: DIGOXIN 0.125 MG TAB PO SCH (09:00)
[2017-07-08 09:23] VITALS: O2SAT 93
[2017-07-08] MEDS: TORSEMIDE 5 MG TAB PO SCH (09:45)
[2017-07-08] MEDS: THIAMINE HCL 100 MG TAB PO SCH (09:45)
[2017-07-08] MEDS: SULFAMETHOXAZOLE-TRIMETHOPRIM DS 800-160 MG TAB PO SCH (09:45)
[2017-07-08] MEDS: DOCUSATE SODIUM 50 MG/SENNA 8.6 MG TAB PO SCH (09:46)
[2017-07-08] MEDS ORDERED: DIGO0.12 PO (11:04)
--- NOTE | 2017-07-08 12:37 | HHI.FF ---
Face to Face Verification Diagnosis: (1) Cellulitis, leg (2) CHF (congestive heart failure) (3) COPD (chronic obstructive pulmonary disease) (4) A-fib Physical Therapy Order: Strength and gait training Occupational Therapy Order: Improve ADL Home Health Nursing Order: Medical education Signs/symptoms of disease process Medication education-adverse effect Nursing assessment with vital signs Home Health Aide Order: To Assist In: Bathing and personal care I have seen patient Zeeshan Nix on 07/08/17. My clinical findings support the need for the requested home health care services because: Deconditioned w/ increased weakness Limited ability to care for self Infection w/ risk of complications I certify that my clinical findings support that this patient is homebound because: Post-op weakness Unsteady gait/balance Poor cardiac reserve Karyn Reyes Jul 08, 2017 12:37
--- NOTE | 2017-07-08 13:14 | HHI.PR ---
Subjective Remarks No chest pain or short of breath Heart rate better control Stable for discharge today Objective Vitals Vital Signs Date Time Temp Pulse Resp B/P (MAP) Pulse Ox O2 Delivery O2 Flow Rate FiO2 07/08/17 09:23 93 21 07/08/17 08:00 97.7 76 18 97/61 (73) 98 07/08/17 04:03 94 Nasal Cannula 3.00 07/08/17 04:00 97.7 77 18 93/52 (66) 96 07/08/17 00:06 98.4 133 18 98/58 (71) 92 07/07/17 21:22 93 07/07/17 20:00 98.7 70 16 117/56 (76) 94 07/07/17 19:53 88 07/07/17 19:30 Room Air 07/07/17 16:44 75 07/07/17 16:00 98.3 82 18 117/70 (86) 95 I/O 07/07/17 07/07/17 07/07/17 07/08/17 07/08/17 07/08/17 07:00 15:00 23:00 07:00 15:00 23:00 Intake Total 240 ml 720 ml Output Total 1000 ml 650 ml 500 ml Balance -760 ml 70 ml -500 ml Intake Oral 240 ml 720 ml Output Urine Total 1000 ml 650 ml 500 ml # Bowel Movements 0 1 1 Result Diagram: 07/05/17 1825 07/05/17 0700 Objective Remarks GENERAL: This is a well-nourished, well-developed patient, in no apparent distress. CARDIOVASCULAR: irreg irreg.without murmurs, gallops, or rubs. RESPIRATORY: Breath sounds equal bilaterally. No wheezes, rales, or rhonchi. GASTROINTESTINAL: Abdomen soft, non-tender, nondistended. Normal active bowel sounds MUSCULOSKELETAL: Extremities without clubbing, cyanosis, or edema. NEURO: Alert & Oriented x4 to person, place, time, situation. Moves all ext x4 Procedures None. A/P Problem List: (1) Cellulitis, leg ICD Code: L03.119 - Cellulitis of unspecified part of limb Status: Acute (2) CHF (congestive heart failure) ICD Code: I50.9 - Heart failure, unspecified Status: Chronic (3) A-fib ICD Code: I48.91 - Unspecified atrial fibrillation Status: Chronic (4) COPD (chronic obstructive pulmonary disease) ICD Code: J44.9 - Chronic obstructive pulmonary disease, unspecified Status: Chronic (5) Acute renal failure ICD Code: N17.9 - Acute kidney failure, unspecified Status: Acute Assessment and Plan 07/06 : plan to dc to rehab today 07/07: Patient heart rate went back up to 10/14/39 yesterday, cardiology was contacted and he was started on digoxin, and discharge was held for monitoring, will continue monitoring today and adjusting his rate control medicine, appreciate cardiology help 07/08: Heart rate better control ready for discharge today Patient is a 61-year-old male with primary medical history of A. fib on Xarelto , HTN, COPD, CHF, recurrent right lower extremity cellulitis who came into the hospital for evaluation of right lower extremity with increasing edema and pain. A. fib, chronic with RVR - Heart rate was transiently better. We had him on Diltiazem drip which we discontinued. - Continue Metoprolol 75mg Q8hrs, Diltiazem 90mg Q6hrs. - Due to difficulty controlling heart rate, we will request a cardiology consultation. - Continue Xarelto for anti-coagulation. Right lower extremity cellulitis, acute Sepsis, SIRS - HR 120s, Neutrophil count 87 Severe stasis dermatitis bilaterally. - Blood cultures negative so far. - Lactic acid 1.6, MUSHROOM GROWER 1.6 - Switched Vanc/Zosyn to PO Keflex, Bactrim - Wound care. Patient will likely require outpatient wound care as well. - Patient will benefit from SNF placement UTI - Cx growing Klebsiella, sensitive to Keflex. Will continue abx. Acute kidney injury chronic kidney disease stage 3. - Creatinine 1.5 - 1.6. This maybe the new baseline. Full code. Xarelto Problem Qualifiers (1) Cellulitis, leg: Qualified Codes: L03.115 - Cellulitis of right lower limb Johnny Up MD Jul 08, 2017 13:14
--- NOTE | 2017-07-08 13:26 | HHI.FF ---
Face to Face Verification Diagnosis: (1) Respiratory failure (2) Hyperbilirubinemia (3) Acute CHF (4) Chest pain Physical Therapy Order: Evaluate and Treat Occupational Therapy Order: Evaluate and Treat Home Health Nursing Order: Medical education CHF education Oxygen administration education Nursing assessment with vital signs I have seen patient Zeeshan Nix on 07/08/17. My clinical findings support the need for the requested home health care services because: Patient has SOB Deconditioned w/ increased weakness Med compliance is questionable Limited ability to care for self I certify that my clinical findings support that this patient is homebound because: Unsteady gait/balance Unsafe to leave home unassisted Johnny Up MD Jul 08, 2017 13:26
== END 2017-07-08 15:11 | disposition home or self-care (01) | DRG 872 ==
LOC: NEPE 14:55 → NEDA 18:05 → NEPHCDU 07-01 00:25 → N04A 07-02 10:36
PROVIDERS: ADMIT Hospitalist; ATTEND Hospitalist
DX: A41.9 Sepsis, unspecified organism (principal); N17.9 Acute kidney failure, unspecified; I13.0 Hypertensive heart and chronic kidney disease with heart failure and stage 1 through stage 4 chronic kidney disease, or unspecified chronic kidney disease; N18.3 Chronic kidney disease, stage 3 (moderate); I50.32 Chronic diastolic (congestive) heart failure; E87.1 Hypo-osmolality and hyponatremia; R56.9 Unspecified convulsions; L03.115 Cellulitis of right lower limb; N39.0 Urinary tract infection, site not specified; E78.00 Pure hypercholesterolemia, unspecified; G47.30 Sleep apnea, unspecified; I25.10 Atherosclerotic heart disease of native coronary artery without angina pectoris; I48.2 Chronic atrial fibrillation; J44.9 Chronic obstructive pulmonary disease, unspecified; B96.1 Klebsiella pneumoniae [K. pneumoniae] as the cause of diseases classified elsewhere; F10.20 Alcohol dependence, uncomplicated; Z79.01 Long term (current) use of anticoagulants; Z86.73 Personal history of transient ischemic attack (TIA), and cerebral infarction without residual deficits
CPT/HCPCS: 71010; 76937; 80048; 80053; 80162; 81001; 83605; 85025; 87040; 87077; 87086; 87186; 94640; 94664; 96365; 96375; J1160; J2060; J2270; J2405; J2543; J3370; J7030; J7040; J7050; J7644

== ENCOUNTER 2017-07-26 23:33 | Observation (INO) | payer MEDICARE, OTHER ==
[~2017-07-26] VITALS: Ht 175.3 cm; Wt 146.0 kg
[~2017-07-26 23:33] MED LIST changes: +CARD360C PO; +CEPH500C PO; +DIGO0.12 PO; +METO-309 PO
[2017-07-26 23:37] VITALS: BP 115/61; PULSE 57; RESP 27; TEMP 97.6; O2SAT 100
[2017-07-26] MEDS ORDERED: FUROSEMIDE 40 MG/4 ML VIAL IVP ONE (23:45)
[2017-07-26] MEDS ORDERED: SODIUM CHLORIDE 0.9% FLUSH 10 ML FLUSH IVF PRN (23:45)
[2017-07-26 23:46] VITALS: RESP 22; O2SAT 99
[2017-07-26] MEDS ORDERED: FURO1TAB60 PO (23:46)
--- NOTE | 2017-07-26 23:54 | PD ---
HPI Chief Complaint: Respiratory Symptoms Time Seen by Provider: 23:41 Travel History International Travel<30 days: No Contact w/Intl Traveler<30days: No Traveled to known affect area: No History of Present Illness HPI The patient is a 61 year old male who presents to the [facility] emergency department with a history of shortness of breath that he reports is been gradually worsening over the last few days. The patient reports that he's had an associated increase in his lower extremity edema. He reports that he does have chronic edema, however it has been even worse. He reports that a few days ago his Lasix was increased from 40 mg once a day to twice a day. He denies having any chest pain or chest pressure. He does report having a history of congestive heart failure and COPD. He is chronically on 2 L nasal cannula O2 that he uses when necessary. He reports that he has been having to use this more frequently. The patient denies taking an aspirin daily. He is chronically anticoagulated related to a history of atrial fibrillation with Xarelto. Otherwise on review of systems, the patient denies having any recent known fevers, worsening cough or congestion, neck pain, abdominal pain, vomiting , diarrhea, urinary symptoms, or neurologic symptoms. The patient arrives by ambulance services on CPAP. The patient was given one albuterol nebulizer treatment prior to arrival. The patient's O2 saturation on 2 L at home was 94%. [facility]LY [facility] Past Medical History Narrative Medical The patient's past medical history is significant for atrial fibrillation, hypertension, COPD, congestive heart failure, obesity, history of lower extremity cellulitis related to his chronic lymphedema, chronic hyponatremia, renal insufficiency. Patient's last echo done at this facility was in January 2017 revealed an ejection fraction of 65% with ventricular hypertrophy. Hx Anticoagulant Therapy: Yes Asthma: No Atrial Fibrillation: Yes Heart Rhythm Problems: Yes (A-FIB) Cancer: No Cardiac Catheterization: Yes Cardiovascular Problems: Yes High Cholesterol: Yes Chest Pain: Yes Congestive Heart Failure: Yes COPD: Yes (HOME O2 @ 2 L NC) Cerebrovascular Accident: Yes (TIA) Coronary Artery Disease: Yes Diabetes: No Diminished Hearing: No Endocrine: No Gastrointestinal Disorders: No Genitourinary: Yes Hypertension: Yes Immune Disorder: No Implanted Vascular Access Dvce: No Musculoskeletal: Yes Neurologic: Yes Psychiatric: No Reproductive: No Respiratory: Yes Integumentary: Yes (BILATERAL LOWER LEG SWELLING/SKIN ITEGRATY ISSUES cellulitis) Immunizations Current: Yes Migraines: No Seizures: Yes Sickle Cell Disease: No Sleep Apnea: Yes (DOES NOT HAVE CPAP) Thyroid Disease: No Past Surgical History Narrative Surgical The patient's past surgical history is significant for cardiac ablation, appendectomy, tonsillectomy. Abdominal Surgery: Yes (apendix) Appendectomy: Yes Cardiac Surgery: Yes (ABLATIONS X 3 (afib)) Genitourinary Surgery: No Neurologic Surgery: No Tonsillectomy: Yes Other Surgery: Yes (ABLATION X 3) Social History Alcohol Use: Yes (3-4 cocktails daily) Tobacco Use: No Substance Use: No Allergies-Medications (Allergen,Severity, Reaction): Coded Allergies: No Known Allergies (Unverified Allergy, Unknown, 07/27/17) Reported Meds & Prescriptions Reported Meds & Active Scripts Active Digoxin 0.125 Mg Tab 0.125 Mg PO DAILY Cardizem CD 24 HR (Diltiazem CD 24 HR) 360 Mg Caper 360 Mg PO DAILY Lopressor (Metoprolol Tartrate) 50 Mg Tab 100 Mg PO Q8H Pantoprazole (Pantoprazole Sodium) 40 Mg Tab 40 Mg PO Q12HR Ventolin Hfa 18 GM Inh (Albuterol Sulfate) 90 Mcg/Act Aer 1 Puff INH Q4H PRN Atrovent HFA 12.9 GM Inh (Ipratropium [place]) 17 Mcg/Act Aer 2 Puff INH Q6HR PRN Symbicort Inh (Budesonide/Formoterol Fumarate) 160-4.5 Mcg/Act Aero 2 Puff INH Q12HR Reported Lasix (Furosemide) 40 Mg Tab 40 Mg PO BID Breo Ellipta Inh (Fluticasone/Vilanterol) 100-25 Mcg/Act Inh 1 Puff INH DAILY Use daily at the same time. Atorvastatin (Atorvastatin Calcium) 40 Mg Tab 40 Mg PO HS Xarelto (Rivaroxaban) 20 Mg Tab 20 Mg PO DAILY WITH DINNER Review of Systems Except as stated in HPI: all other systems reviewed are Neg General / Constitutional: No: Fever Eyes: No: Visual changes HENT: No: Headaches, Congestion Cardiovascular: Positive: Edema, No: Chest Pain or Discomfort Respiratory: Positive: Shortness of Breath Gastrointestinal: No: Abdominal Pain Genitourinary: No: Dysuria Musculoskeletal: No: Pain Skin: No Rash Neurologic: No: Weakness, Focal Abnormalities, Change in Mentation, Slurred Speech, Sensory Disturbance Psychiatric: No: Depression Endocrine: No: Polydipsia Hematologic/Lymphatic: No: Easy Bruising Physical Exam Narrative General: The patient is a well-developed well-nourished male in no acute distress. Saturating 100% on arrival on CPAP. Head and Neck exam: Head is normocephalic atraumatic. Eyes: EOMI, pupils are equal round and reactive to light. Nose: Midline septum with pink mucous membranes Mouth: Dentition unremarkable. Moist mucus membranes. Posterior oropharynx is not erythematous. No tonsillar hypertrophy. Uvula midline. Airway patent. Neck: No palpable lymphadenopathy. No nuchal rigidity. No thyromegaly. Cardiovascular: Heart rate in the 50s without murmurs, gallops, or rubs. Lungs: Decreased breath sounds in the bases, with tachypnea, no accessory muscle use, no paroxysmal abdominal breathing or tripoding. No wheezes, rhonchi, or crackles are audible. Abdomen: Soft, without tenderness to palpation in all 4 quadrants of the abdomen. No guarding, rebound, or rigidity. Normal bowel sounds are audible. No tenderness on palpation of McBurney's point. Extremities: No clubbing or cyanosis. The patient has 2+ edema bilateral lower extremities. 2+ pulses in all 4 extremities. No calf tenderness on palpation. Back: No costovertebral angle tenderness to palpation. Neurologic Exam: Grossly nonfocal. Skin Exam: No rash noted. Intact skin that is warm and dry. Data Data Last Documented VS Vital Signs Date Time Temp Pulse Resp B/P (MAP) Pulse Ox O2 Delivery O2 Flow Rate FiO2 07/27/17 00:14 57 22 112/54 (73) 98 Aerosol Mask 07/26/17 23:46 2.00 07/26/17 23:37 97.6 Orders Orders Complete Blood Count With Diff (07/26/17 23:42) Comprehensive Metabolic Panel (07/26/17 23:42) B-Type Natriuretic Peptide (07/26/17 23:42) Act Partial Throm Time (Ptt) (07/26/17 23:42) Prothrombin Time / Inr (Pt) (07/26/17 23:42) Magnesium (Mg) (07/26/17 23:42) Ckmb (Isoenzyme) Profile (07/26/17 23:42) Troponin I (07/26/17 23:42) Urinalysis - C+S If Indicated (07/26/17 23:42) Iv Access Insert/Monitor (07/26/17 23:42) Electrocardiogram (07/26/17 23:42) Ecg Monitoring (07/26/17 23:42) Oximetry (07/26/17 23:42) Oxygen Administration (07/26/17 23:42) Chest, Single Ap (07/26/17 23:42) Sodium Chloride 0.9% Flush (Ns Flush) (07/26/17 23:45) Furosemide Inj (Lasix Inj) (07/26/17 23:45) Albuterol-Ipratropium Neb (Duoneb Neb) (07/26/17 23:45) Admit Order (Ed Use Only) (07/27/17 02:33) Labs Laboratory Tests Test 07/27/17 00:12 White Blood Count 9.7 TH/MM3 Red Blood Count 3.08 MIL/MM3 Hemoglobin 8.8 GM/DL Hematocrit 28.1 % Mean Corpuscular Volume 91.2 FL Mean Corpuscular Hemoglobin 28.5 PG Mean Corpuscular Hemoglobin Concent 31.3 % Red Cell Distribution Width 16.9 % Platelet Count 262 TH/MM3 Mean Platelet Volume 6.2 FL Neutrophils (%) (Auto) 78.2 % Lymphocytes (%) (Auto) 12.4 % Monocytes (%) (Auto) 7.4 % Eosinophils (%) (Auto) 0.9 % Basophils (%) (Auto) 1.1 % Neutrophils # (Auto) 7.6 TH/MM3 Lymphocytes # (Auto) 1.2 TH/MM3 Monocytes # (Auto) 0.7 TH/MM3 Eosinophils # (Auto) 0.1 TH/MM3 Basophils # (Auto) 0.1 TH/MM3 CBC Comment DIFF FINAL Differential Comment Prothrombin Time 13.6 SEC Prothromb Time International Ratio 1.2 RATIO Activated Partial Thromboplast Time 31.3 SEC Blood Urea Nitrogen 38 MG/DL Creatinine 2.33 MG/DL Random Glucose 101 MG/DL Total Protein 7.7 GM/DL Albumin 3.0 GM/DL Calcium Level 7.9 MG/DL Magnesium Level 2.0 MG/DL Alkaline Phosphatase 272 U/L Aspartate Amino Transf (AST/SGOT) 140 U/L Alanine Aminotransferase (ALT/SGPT) 105 U/L Total Bilirubin 0.5 MG/DL Sodium Level 130 MEQ/L Potassium Level 4.5 MEQ/L Chloride Level 99 MEQ/L Carbon Dioxide Level 19.6 MEQ/L Anion Gap 11 MEQ/L Estimat Glomerular Filtration Rate 28 ML/MIN Total Creatine Kinase 42 U/L Troponin I LESS THAN 0.02 NG/ML B-Type Natriuretic Peptide 277 PG/ML MDM Medical Decision Making Medical Screen Exam Complete: Yes Emergency Medical Condition: Yes Medical Record Reviewed: Yes Interpretation(s) Last Impressions Chest X-Ray 07/26/17 3402 Signed Impressions: Service Date/Time: Wednesday, July 26, 2017 23:48 - CONCLUSION: Normal examination. Reginaldo Joe MD Differential Diagnosis CHF exacerbation, versus COPD exacerbation, versus pneumonia, versus pulmonary embolism Narrative Course During the course of the patients emergency department visit, the patients history, examination, and differential diagnosis were reviewed with the patient. The patient was placed on a sales communications manager with oximetry and frequent blood pressure monitoring. The patient had IV access obtained and blood work sent for analysis. The patient had an ECG done on arrival. The patient's ECG reveals a sinus rhythm with a sinus bradycardia heart rate of [address]- T wave abnormalities with downsloping ST segments in leads 2, 3, aVF, V2, V3. T waves are inverted in lead [address] segment elevation. QRS duration is 100 ms, QTC 382 ms. The patient was initially provided DuoNeb 2, Lasix 40 mg IV The patients laboratory studies were reviewed and remarkable for a white count of 9.7, hemoglobin 8.8, platelets 260-78.2 neutrophils, CMP is remarkable for sodium of 1:30, CO2 19.6, BUN 38, creatinine 2.33 and patient with a known history of renal insufficiency, calcium 7.9, AST 140, ALT 105, alkaline phosphatase 272 which is similar to prior LFT elevation, CPK 42, troponin I less than 0.02, BNP is elevated compared to previously at 277. PT 13.6, INR 1.2 , PTT 31.3 Radiology studies were reviewed and remarkable for a chest x-ray that shows a normal examination. The patient will be admitted for observation for gentle diuresis given his history of renal insufficiency and congestive heart failure exacerbation. The patients results were discussed with the patient, including the plan of care. I explained that further testing and/ or monitoring is indicated based on the patients history, examination, and/ or laboratory findings. Therefore, I recommended admission for additional evaluation. The patient expressed understanding and was agreeable with this plan. The patient was admitted to the hospital in stable under the care of the [facility] service. Physician Communication Physician Communication The patient's case including history, pertinent physical examination findings, and laboratory studies were discussed with Dr. Blair. It was agreed that the patient would be admitted to the [facility] service. Diagnosis Primary Impression: Acute exacerbation of congestive heart failure Qualified Codes: I50.9 - Heart failure, unspecified Additional Impression: Renal insufficiency Admitting Information Admitting Physician Requests: Lin Lopez MD Jul 26, 2017 23:54
[2017-07-27] VITALS (8 sets, daily range): BP systolic 110–138; BP diastolic 54–68; PULSE 57–93; RESP 18–24; TEMP 96–98.4; O2SAT 92–98
[2017-07-27] MEDS: RESP: ALBUTEROL 2.5 MG/IPRATROPIUM 0.5 MG NEB (SCH) INH ×2 (00:01)
--- NOTE | 2017-07-27 00:12 | RADRPT ---
EXAM DATE/TIME: 07/26/2017 23:48 [facility] COMPARISON: CHEST SINGLE AP, July 03, 2017, 2:09. INDICATIONS : Short of breath. MEDICAL HISTORY : Chronic obstructive pulmonary disease. Hypercholesterolemia. SURGICAL HISTORY : Cardiac cath. 3 ablations. ENCOUNTER: Initial ACUITY: 1 day PAIN SCORE: 0/10 LOCATION: Bilateral chest FINDINGS: A single view of the chest demonstrates the lungs to be symmetrically aerated without evidence of mas s, infiltrate or effusion. The cardiomediastinal contours are unremarkable. Osseous structures are intact. CONCLUSION: Normal examination. Reginaldo Joe MD on July 27, 2017 at 0:11 Board Certified Radiologist. This report was verified electronically.
[2017-07-27 00:24] LABS: AUTOMATED NEUTROPHIL # 7.6 TH/MM3 (1.8-7.7); BASOPHIL # 0.1 TH/MM3 (0-0.2); BASOPHIL % 1.1 % (0.0-2.0); EOSINOPHIL # 0.1 TH/MM3 (0-0.4); EOSINOPHIL % 0.9 % (0.0-4.0); HEMATOCRIT 28.1 % (39.0-51.0); HEMO FLAGS DIFF FINAL; LYMPH % 12.4 % (9.0-44.0); LYMPHOCYTE # 1.2 TH/MM3 (1.0-4.8); MEAN CELL VOLUME 91.2 FL (80.0-100.0); MEAN CORPUSCULAR HEMOGLOBIN 28.5 PG (27.0-34.0); MEAN CORPUSCULAR HGB CONC 31.3 % (32.0-36.0); MONO % 7.4 % (0.0-8.0); NEUT % 78.2 % (16.0-70.0); PLATELET COUNT 262 TH/MM3 (150-450); RED BLOOD COUNT 3.08 MIL/MM3 (4.50-5.90); RED CELL DISTRIBUTION WIDTH 16.9 % (11.6-17.2); WHITE BLOOD COUNT 9.7 TH/MM3 (4.0-11.0)
[2017-07-27 00:39] LABS: ALT (GPT) 105 U/L (12-78); ANION GAP 11 MEQ/L (5-15); AST (GOT) 140 U/L (15-37); BICARBONATE 19.6 MEQ/L (21.0-32.0); BLOOD UREA NITROGEN 38 MG/DL (7-18); CHLORIDE 99 MEQ/L (98-107); GLOMERULAR FILTRATION RATE 28 ML/MIN (>89); POTASSIUM 4.5 MEQ/L (3.5-5.1); SODIUM (NA) 130 MEQ/L (136-145)
[2017-07-27 00:44] LABS: ALKALINE PHOSPHATASE 272 U/L (45-117); TOTAL BILIRUBIN ADULT 0.5 MG/DL (0.2-1.0)
[2017-07-27 00:46] LABS: APTT (PATIENT) 31.3 SEC (24.3-30.1); INTERNATIONAL NORMALIZED RATIO 1.2 RATIO; PROTHROMBIN TIME - PATIENT 13.6 SEC (9.8-11.6)
[2017-07-27 00:53] LABS: CREATINE KINASE 42 U/L (39-308)
[2017-07-27] MEDS ORDERED: LORazepam 2 MG TAB PO PRN (04:00)
[2017-07-27] MEDS ORDERED: ACETAMINOPHEN 325 MG TAB PO PRN (04:00)
[2017-07-27] MEDS ORDERED: BISACODYL 10 MG SUPP RECTAL PRN (04:00)
[2017-07-27] MEDS ORDERED: LORazepam 1 MG TAB PO PRN (04:00)
[2017-07-27] MEDS ORDERED: ONDANSETRON HCL 4 MG/2 ML VIAL IVP PRN (04:00)
[2017-07-27] MEDS ORDERED: SODIUM CHLORIDE 0.9% FLUSH 10 ML FLUSH IV FLUSH PRN (04:00)
[2017-07-27] MEDS ORDERED: FLUMAZENIL 0.5 MG/5 ML VIAL IV PUSH PRN (04:00)
[2017-07-27] MEDS ORDERED: NALOXONE HCL 0.4 MG/ML AMP IV PUSH PRN (04:00)
[2017-07-27] MEDS ORDERED: SENNOSIDES 8.6 MG TAB PO PRN (04:00)
[2017-07-27] MEDS ORDERED: MAGNESIUM HYDROXIDE SUSP 30 ML CUP PO PRN (04:00)
[2017-07-27] MEDS ORDERED: LORazepam 2 MG/ML VIAL IV PUSH PRN ×2 (04:00)
[2017-07-27] MEDS ORDERED: HEPARIN SODIUM - SQ 10,000 UNITS/ML VIAL SQ SCH (04:00)
[2017-07-27] MEDS ORDERED: RESP: ALBUTEROL 2.5 MG/IPRATROPIUM 0.5 MG NEB (SCH) NEB (04:00)
[2017-07-27] MEDS ORDERED: LACTULOSE SYRUP 20 GM/30 ML CUP PO PRN (04:00)
--- NOTE | 2017-07-27 04:14 | HHI.HP ---
HPI Service [facility] Primary Care Physician Unknown Admission Diagnosis CHF exacerbation Diagnoses: Travel History International Travel<30 Days: No Contact w/Intl Traveler <30 Da: No Traveled to Known Affected Are: No History of Present Illness 61-year-old male with a past medical history significant for A. fib anticoagulated on Xarelto, COPD, CHF, hypertension and hyperlipidemia with chronic renal insufficiency presents to the hospital with a three-day history of increasing shortness of breath. The patient has when necessary oxygen that he has been using and has remained dyspneic despite the supplemental oxygen. He was recently discharged on 07/03/17 where he was treated for cellulitis, renal insufficiency and A. fib with RVR. The patient also reports a one-week history of bilateral lower extremity edema. He states he is compliant with all of his medications. Lab values significant for a sodium of 130, BUN/creatinine of 38/2.33 (baseline creatinine 1.5), AST/ALT of 140/105 and a BNP of 277. Chest x-ray with no acute process. Review of Systems Denies fever or chills Denies blurry vision, otorrhea, rhinorrhea Denies sore throat and cough No chest pain, palpitations, positive shortness of breath No abdominal pain Denies constipation/diarrhea/nausea/vomiting Denies muscle pain/weakness No rashes Past Family Social History Past Medical History COPD Hypertension Hyperlipidemia CHF A. fib anticoagulated on Xarelto Past Surgical History Ablation 3 Appendectomy Tonsillectomy Reported Medications Reported Meds & Active Scripts Active Digoxin 0.125 Mg Tab 0.125 Mg PO DAILY Cardizem CD 24 HR (Diltiazem CD 24 HR) 360 Mg Caper 360 Mg PO DAILY Lopressor (Metoprolol Tartrate) 50 Mg Tab 100 Mg PO Q8H Pantoprazole (Pantoprazole Sodium) 40 Mg Tab 40 Mg PO Q12HR Ventolin Hfa 18 GM Inh (Albuterol Sulfate) 90 Mcg/Act Aer 1 Puff INH Q4H PRN Atrovent HFA 12.9 GM Inh (Ipratropium [place]) 17 Mcg/Act Aer 2 Puff INH Q6HR PRN Symbicort Inh (Budesonide/Formoterol Fumarate) 160-4.5 Mcg/Act Aero 2 Puff INH Q12HR Reported Lasix (Furosemide) 40 Mg Tab 40 Mg PO BID Breo Ellipta Inh (Fluticasone/Vilanterol) 100-25 Mcg/Act Inh 1 Puff INH DAILY Use daily at the same time. Atorvastatin (Atorvastatin Calcium) 40 Mg Tab 40 Mg PO HS Xarelto (Rivaroxaban) 20 Mg Tab 20 Mg PO DAILY WITH DINNER Allergies: Coded Allergies: No Known Allergies (Unverified Adverse Reaction, Unknown, 07/26/17) Family History Father with diabetes mellitus. Mother with CAD. Social History Never smoker. Drinks approximately 3-4 cocktails per day. Occasional marijuana use. Denies other illicit drugs. Physical Exam Vital Signs Vital Signs Date Time Temp Pulse Resp B/P (MAP) Pulse Ox O2 Delivery O2 Flow Rate FiO2 07/27/17 00:14 57 22 112/54 (73) 98 Aerosol Mask 07/26/17 23:46 99 Nasal Cannula 2.00 07/26/17 23:46 22 99 Nasal Cannula 2.00 07/26/17 23:37 97.6 57 27 115/61 (79) 100 Physical Exam GENERAL: Obese male sitting up in bed SKIN: No rashes, ecchymoses or lesions. Cool and dry. HEAD: Atraumatic. Normocephalic. No temporal or scalp tenderness. EYES: Pupils equal round and reactive. Extraocular motions intact. No scleral icterus. No injection or drainage. ENT: Nose without bleeding, purulent drainage or septal hematoma. Throat without erythema, tonsillar hypertrophy or exudate. Uvula midline. Airway patent. NECK: Trachea midline. No JVD or lymphadenopathy. Supple, nontender, no meningeal signs. CARDIOVASCULAR: Irregularly irregular rhythm without murmurs/rubs/gallops RESPIRATORY: Distant breath sounds without wheezes, rales, rhonchi or crackles GASTROINTESTINAL: Abdomen soft, non-tender, nondistended. No hepato-splenomegaly , or palpable masses. No guarding. MUSCULOSKELETAL: 2+ pitting edema to the knee NEUROLOGICAL: Awake and alert. Cranial nerves II through XII intact. Motor and sensory grossly within normal limits. Normal speech. Laboratory Laboratory Tests Test 07/27/17 00:12 White Blood Count 9.7 Red Blood Count 3.08 Hemoglobin 8.8 Hematocrit 28.1 Mean Corpuscular Volume 91.2 Mean Corpuscular Hemoglobin 28.5 Mean Corpuscular Hemoglobin Concent 31.3 Red Cell Distribution Width 16.9 Platelet Count 262 Mean Platelet Volume 6.2 Neutrophils (%) (Auto) 78.2 Lymphocytes (%) (Auto) 12.4 Monocytes (%) (Auto) 7.4 Eosinophils (%) (Auto) 0.9 Basophils (%) (Auto) 1.1 Neutrophils # (Auto) 7.6 Lymphocytes # (Auto) 1.2 Monocytes # (Auto) 0.7 Eosinophils # (Auto) 0.1 Basophils # (Auto) 0.1 CBC Comment DIFF FINAL Differential Comment Prothrombin Time 13.6 Prothromb Time International Ratio 1.2 Activated Partial Thromboplast Time 31.3 Blood Urea Nitrogen 38 Creatinine 2.33 Random Glucose 101 Total Protein 7.7 Albumin 3.0 Calcium Level 7.9 Magnesium Level 2.0 Alkaline Phosphatase 272 Aspartate Amino Transf (AST/SGOT) 140 Alanine Aminotransferase (ALT/SGPT) 105 Total Bilirubin 0.5 Sodium Level 130 Potassium Level 4.5 Chloride Level 99 Carbon Dioxide Level 19.6 Anion Gap 11 Estimat Glomerular Filtration Rate 28 Total Creatine Kinase 42 Troponin I LESS THAN 0.02 B-Type Natriuretic Peptide 277 Result Diagram: 07/27/171107/27/1711 Caprini VTE Risk Assessment Caprini VTE Risk Assessment: Mod/High Risk (score >= 2) Caprini Risk Assessment Model Point Value = 1 Point Value = 2 Point Value = 3 Point Value = 5 Age 41-60 Minor surgery BMI > 25 kg/m2 Swollen legs Varicose veins or History of unexplained or recurrent spontaneous Oral contraceptives or hormone replacement Sepsis (< 1 month) Serious lung disease, including pneumonia (< 1 month) Abnormal pulmonary function Acute myocardial infarction Congestive heart failure (< 1 month) History of inflammatory bowel disease Medical patient at bed rest Age 61-74 Arthroscopic surgery Major open surgery (> 45 min) Laparoscopic surgery (> 45 min) Malignancy Confined to bed (> 72 hours) Immobilizing plaster cast Central venous access Age >= 75 History of VTE Family history of VTE Factor V Leiden Prothrombin [id number] Lupus anticoagulant Anticardiolipin antibodies Elevated serum homocysteine Heparin-induced thrombocytopenia Other congenital or acquired thrombophilia Stroke (< 1 month) Elective arthroplasty Hip, pelvis, or leg fracture Acute spinal cord injury (< 1 month) Prophylaxis Regimen Total Risk Factor Score Risk Level Prophylaxis Regimen 0-1 Low Early ambulation 2 Moderate Order ONE of the following: *Sequential Compression Device (SCD) *Heparin 5000 units SQ BID 3-4 Higher Order ONE of the following medications: *Heparin 5000 units SQ TID *Enoxaparin/Lovenox 40 mg SQ daily (WT < 150 kg, CrCl > 30 mL/min) *Enoxaparin/Lovenox 30 mg SQ daily (WT < 150 kg, CrCl > 10-29 mL/min) *Enoxaparin/Lovenox 30 mg SQ BID (WT < 150 kg, CrCl > 30 mL/min) AND/OR *Sequential Compression Device (SCD) 5 or more Highest Order ONE of the following medications: *Heparin 5000 units SQ TID (Preferred with Epidurals) *Enoxaparin/Lovenox 40 mg SQ daily (WT < 150 kg, CrCl > 30 mL/min) *Enoxaparin/Lovenox 30 mg SQ daily (WT < 150 kg, CrCl > 10-29 mL/min) *Enoxaparin/Lovenox 30 mg SQ BID (WT < 150 kg, CrCl > 30 mL/min) AND *Sequential Compression Device (SCD) Assessment and Plan Assessment and Plan 61-year-old male with past medical history significant for COPD, hypertension, hyperlipidemia, CHF and A. fib presents with a three-day history of increasing dyspnea and a one-week history of bilateral lower extremity edema. Patient also has acute on chronic renal failure. 1. COPD exacerbation Solu-Medrol DuoNeb's Oxygen to maintain saturations at 92% Continue home Symbicort and Breo 2. Acute on chronic renal insufficiency Patient's creatinine 2.33 with a baseline of 1.5 Nephrology consulted, appreciate recommendations 3. A. fib Rate controlled Continue home digoxin, diltiazem, metoprolol Continue anticoagulation with Xarelto At patient's last hospitalization, cardiology was consulted and patient was referred to Dr. Page for outpatient follow-up for possible repeat ablation. 4. Transaminitis Unclear etiology, possibly secondary to alcohol abuse Hepatitis profile pending 5. Congestive heart failure Continue home dose Lasix Caution with diuresis given acute on chronic renal insufficiency 6. Hypertension Continue home medications 7. Hyperlipidemia Continue home statin 8. Alcohol abuse [facility] protocol Counseled patient is to the importance of cessation from alcohol FEN Heart healthy diet Monitor Electrolytes Anticoagulated on RhettrelLilliana Rain MD Jul 27, 2017 04:14
[2017-07-27] MEDS: METOPROLOL TARTRATE 50 MG TAB PO SCH ×3 (05:35→21:32)
[2017-07-27] MEDS: DILTIAZEM-CD 180 MG CAP ER PO SCH (07:50)
[2017-07-27] MEDS: PANTOPRAZOLE SOD 40 MG DELAYED RELEASE TAB PO SCH ×2 (07:51→21:32)
[2017-07-27] MEDS: DOCUSATE SODIUM 50 MG/SENNA 8.6 MG TAB PO SCH ×2 (07:51→21:32)
[2017-07-27] MEDS: RIVAROXABAN 20 MG TAB PO SCH (07:51)
[2017-07-27] MEDS: DIGOXIN 0.125 MG TAB PO SCH (07:51)
[2017-07-27] MEDS: methylPREDNISolone SOD SUCC 40 MG/1 ML VIAL IV PUSH SCH ×2 (07:52→21:32)
[2017-07-27] MEDS: LORazepam 2 MG/ML VIAL IV PUSH PRN ×4 (07:52→17:43)
[2017-07-27] MEDS: SODIUM CHLORIDE 0.9% FLUSH 10 ML FLUSH IV FLUSH SCH ×2 (07:53→21:32)
[2017-07-27] MEDS: RESP: ALBUTEROL 2.5 MG/IPRATROPIUM 0.5 MG NEB (SCH) NEB ×4 (08:00→20:22)
[2017-07-27] MEDS ORDERED: RESP: ALBUTEROL 2.5 MG/3 ML NEB (PRN) NEB (08:00)
[2017-07-27] MEDS: FLUTICASONE 100 MCG/VILANTEROL 25 MCG INHALER INH SCH (08:37)
[2017-07-27] MEDS: BUDESONIDE-FORMOTEROL 160/4.5 MCG INHALER INH SCH ×2 (08:37→21:32)
[2017-07-27] MEDS ORDERED: FUROSEMIDE 40 MG TAB PO SCH (09:00)
--- NOTE | 2017-07-27 12:18 | PD.CONS ---
HPI Service Nephrology Consult Requested By Reason for Consult Acute on CKD Primary Care Physician Unknown History of Present Illness 61-year-old male with a PMH significant for A. fib anticoagulated on Xarelto, COPD, CHF (EF 65% in January of 2017) , hypertension and hyperlipidemia presents to the hospital with a three-day history of increasing shortness of breath. Admitted for COPD exacerbation. He also appears to have CKD 3. In May his creatinine was 1.2. On arrival he is obese, visibly dyspneic, has edema to lower extremities. Denies recent fever, cough, palpitations. We were consulted to assist with management. His creatinine is 2.3 on arrival. He is on Lasix BID at home. He is a full code. Review of Systems Constitutional: COMPLAINS OF: Fatigue, Weight gain Respiratory: COMPLAINS OF: Shortness of breath Cardiovascular: COMPLAINS OF: Dyspnea on Exertion, Lower Extremity Edema, DENIES: Chest pain Past Family Social History Allergies: Coded Allergies: No Known Allergies (Unverified Allergy, Unknown, 07/27/17) Past Medical History CKD, baseline creatinine 1.2, GFR 59 (CKD 3) A. fib on Eliquis HTN CAD COPD, O2 Dependent h/o CVA obesity ETOH abuse hyponatremia CHF (Echo 02/03/17 w/ EF 65%) Past Surgical History cardiac Ablation 3 Appendectomy Tonsillectomy Reported Medications Digoxin 0.125 Mg Tab 0.125 Mg PO DAILY Cardizem CD 24 HR (Diltiazem CD 24 HR) 360 Mg Caper 360 Mg PO DAILY Lopressor (Metoprolol Tartrate) 50 Mg Tab 100 Mg PO Q8H Pantoprazole (Pantoprazole Sodium) 40 Mg Tab 40 Mg PO Q12HR Ventolin Hfa 18 GM Inh (Albuterol Sulfate) 90 Mcg/Act Aer 1 Puff INH Q4H PRN Atrovent HFA 12.9 GM Inh (Ipratropium [place]) 17 Mcg/Act Aer 2 Puff INH Q6HR PRN Symbicort Inh (Budesonide/Formoterol Fumarate) 160-4.5 Mcg/Act Aero 2 Puff INH Q12HR Reported Lasix (Furosemide) 40 Mg Tab 40 Mg PO BID Breo Ellipta Inh (Fluticasone/Vilanterol) 100-25 Mcg/Act Inh 1 Puff INH DAILY Use daily at the same time. Atorvastatin (Atorvastatin Calcium) 40 Mg Tab 40 Mg PO HS Xarelto (Rivaroxaban) 20 Mg Tab 20 Mg PO DAILY WITH DINNER Active Ordered Medications Current Medications Medications (Trade) Dose Ordered Sig/Delilah Route Start Time Stop Time Status Last Admin (NS Flush) 2 ml UNSCH PRN IVF 07/26/17 23:45 (NS Flush) 2 ml UNSCH PRN IV FLUSH 07/27/17 04:00 (NS Flush) 2 ml BID IV FLUSH 07/27/17 09:00 07/27/17 07:53 (Tylenol) 650 mg Q4H PRN PO 07/27/17 04:00 (Zofran Inj) 4 mg Q6H PRN IVP 07/27/17 04:00 (Narcan Inj) 0.4 mg UNSCH PRN IV PUSH 07/27/17 04:00 (Coco-Colace) 1 tab BID PO 07/27/17 09:00 07/27/17 07:51 (Senokot) 17.2 mg Q12H PRN PO 07/27/17 04:00 (Dulcolax Supp) 10 mg DAILY PRN RECTAL 07/27/17 04:00 (Lactulose Liq) 30 ml DAILY PRN PO 07/27/17 04:00 (Romazicon Inj) 0.2 mg Q1M PRN IV PUSH 07/27/17 04:00 (Ativan) 1 mg Q4H PRN PO 07/27/17 04:00 (Ativan Inj) 1 mg Q4H PRN IV PUSH 07/27/17 04:00 07/27/17 07:52 (Ativan) 2 mg Q2H PRN PO 07/27/17 04:00 (Ativan Inj) 2 mg Q2H PRN IV PUSH 07/27/17 04:00 (Ativan Inj) 2 mg Q1H PRN IV PUSH 07/27/17 04:00 (Ativan Inj) 2 mg Q15M PRN IV PUSH 07/27/17 04:00 (Symbicort 160-4.5 Inh) 2 puff Q12HR INH 07/27/17 09:00 07/27/17 08:37 (Lanoxin) 0.125 mg DAILY PO 07/27/17 09:00 07/27/17 07:51 (Cardizem Cd) 360 mg DAILY PO 07/27/17 09:00 07/27/17 07:50 (Breo Ellipta 100-25 Inh) 1 puff DAILY INH 07/27/17 09:00 07/27/17 08:37 (Lasix) 40 mg BID PO 07/27/17 09:00 07/27/17 07:52 (Lopressor) 100 mg Q8H PO 07/27/17 04:00 07/27/17 05:35 (Protonix) 40 mg Q12HR PO 07/27/17 09:00 07/27/17 07:51 (Xarelto) 20 mg DAILY PO 07/27/17 09:00 07/27/17 07:51 (SoluMEDROL INJ) 40 mg Q12HR IV PUSH 07/27/17 09:00 07/27/17 07:52 (Duoneb Neb) 1 ampule Q4HR WHILE AWAKE NEB NEB 07/27/17 08:00 07/27/17 11:53 (Albuterol Neb) 2.5 mg Q2HR NEB PRN NEB 07/27/17 08:00 Family History No hx of renal disorders Social History lives with roommate no smoking hx drinks 3-5 vodka drinks/day, wants to quit uses cane to ambulate full code Physical Exam Vital Signs Vital Signs Date Time Temp Pulse Resp B/P (MAP) Pulse Ox O2 Delivery O2 Flow Rate FiO2 07/27/17 11:37 96.0 60 24 121/61 (81) 92 07/27/17 07:24 96.5 93 21 138/65 (89) 97 07/27/17 05:15 98.0 87 18 110/56 (74) 94 07/27/17 04:23 93 07/27/17 00:14 57 22 112/54 (73) 98 Aerosol Mask 07/26/17 23:46 99 Nasal Cannula 2.00 07/26/17 23:46 22 99 Nasal Cannula 2.00 07/26/17 23:37 97.6 57 27 115/61 (79) 100 Physical Exam Morbidly obese male lying in bed he is on oxygen, visibly dyspneic lungs clear, decreased in bases S1/S2, RRR no murmurs abdomen obese, soft, non tender extremities chronic edema, thickened skin some blisters noted Laboratory Laboratory Tests Test 07/27/17 00:12 11/13/17 05:34 White Blood Count 9.7 Red Blood Count 3.08 Hemoglobin 8.8 Hematocrit 28.1 Mean Corpuscular Volume 91.2 Mean Corpuscular Hemoglobin 28.5 Mean Corpuscular Hemoglobin Concent 31.3 Red Cell Distribution Width 16.9 Platelet Count 262 Mean Platelet Volume 6.2 Neutrophils (%) (Auto) 78.2 Lymphocytes (%) (Auto) 12.4 Monocytes (%) (Auto) 7.4 Eosinophils (%) (Auto) 0.9 Basophils (%) (Auto) 1.1 Neutrophils # (Auto) 7.6 Lymphocytes # (Auto) 1.2 Monocytes # (Auto) 0.7 Eosinophils # (Auto) 0.1 Basophils # (Auto) 0.1 CBC Comment DIFF FINAL Differential Comment Prothrombin Time 13.6 Prothromb Time International Ratio 1.2 Activated Partial Thromboplast Time 31.3 Blood Urea Nitrogen 38 Creatinine 2.33 Random Glucose 101 Total Protein 7.7 Albumin 3.0 Calcium Level 7.9 Magnesium Level 2.0 Alkaline Phosphatase 272 Aspartate Amino Transf (AST/SGOT) 140 Alanine Aminotransferase (ALT/SGPT) 105 Total Bilirubin 0.5 Sodium Level 130 Potassium Level 4.5 Chloride Level 99 Carbon Dioxide Level 19.6 Anion Gap 11 Estimat Glomerular Filtration Rate 28 Total Creatine Kinase 42 Troponin I LESS THAN 0.02 B-Type Natriuretic Peptide 277 Digoxin Level 1.6 Result Diagram: 07/27/17 0012 07/27/17 0012 Imaging Last Impressions Chest X-Ray 07/26/17 2342 Signed Impressions: Service Date/Time: Wednesday, July 26, 2017 23:48 - CONCLUSION: Normal examination. Reginaldo Joe MD Assessment and Plan Problem List: (1) Acute renal failure ICD Codes: N17.9 - Acute kidney failure, unspecified Status: Acute Plan: CORIN on CKD 3 CORIN may be due to decreased renal perfusion, possibly infection He is non oliguric Check UA, check renal US Diuresis as below Repeat labs in AM Avoid nephrotoxic agents (2) Acute exacerbation of congestive heart failure ICD Codes: I50.9 - Heart failure, unspecified Status: Acute Plan: Monitor fluid status Change Lasix to Bumex 2 mg IV BID (3) A-fib ICD Codes: I48.91 - Unspecified atrial fibrillation Status: Chronic Plan: Rate controlled, he is on digoxin On Xarelto, may need dose reduction due to renal failure (4) COPD exacerbation ICD Codes: J44.1 - Chronic obstructive pulmonary disease with (acute) exacerbation Status: Acute Plan: Nebs, oxygen as needed Problem Qualifiers (1) Acute exacerbation of congestive heart failure: Qualified Codes: I50.9 - Heart failure, unspecified Tika Hartman [facility] Jul 27, 2017 12:18
--- NOTE | 2017-07-27 13:06 | RADRPT ---
EXAM DATE/TIME: 07/27/2017 12:39 [place] COMPARISON: US KIDNEY/RENAL/BLADDER, April 15, 2017, 20:59. INDICATIONS : Increased BUN/creatinine. MEDICAL HISTORY : Hypercholesterolemia. Congestive heart failure. Myocardial infarction. CVA. Seizures. Numbness right foot. Coronary artery disease. Afib. HTN. COPD. Sleep apnea. Dyspnea. Cellulitis. MRSA. Anticoagulant therapy. SURGICAL HISTORY : Tonsillectomy. Appendectomy. Cardiac ablations x3. Right ankle surgery. Blood transfusions. ENCOUNTER: Subsequent ACUITY: 1 day PAIN SCORE: 6/10 LOCATION: Bilateral flank MEASUREMENTS: RIGHT KIDNEY: 11.5 x 4.7 x 4.9 cm LEFT KIDNEY: 10.6 x 5.1 x 5.9 cm FINDINGS: RIGHT KIDNEY: Renal cortex is normal in thickness and echotexture. No hydronephrosis, stone, or mass. LEFT KIDNEY: Renal cortex is normal in thickness and echotexture. No hydronephrosis, stone, or mass. BLADDER: Within normal limits given the degree of distension. CONCLUSION: Normal examination. Gonzalez Stewart Jr., MD on July 27, 2017 at 13:03 Board Certified Radiologist. This report was verified electronically.
--- NOTE | 2017-07-27 14:35 | HHI.PR ---
Subjective Remarks Follow up on patient with afib on Xarelto, AECOPD, CHF exacerbation. Patient seen and examined. Patient complaining of dyspnea and wheezing. SOB worse with activity. Endorses drinking 4 to 5 alcoholic beverages daily. Reports chronic BLE edema. States he is compliant with his medications. He denies any s/sxs of alcohol withdrawal. Objective Vitals Vital Signs Date Time Temp Pulse Resp B/P (MAP) Pulse Ox O2 Delivery O2 Flow Rate FiO2 07/27/17 11:37 96.0 60 24 121/61 (81) 92 07/27/17 07:24 96.5 93 21 138/65 (89) 97 07/27/17 05:15 98.0 87 18 110/56 (74) 94 07/27/17 04:23 93 07/27/17 00:14 57 22 112/54 (73) 98 Aerosol Mask 07/26/17 23:46 99 Nasal Cannula 2.00 07/26/17 23:46 22 99 Nasal Cannula 2.00 07/26/17 23:37 97.6 57 27 115/61 (79) 100 I/O 07/26/17 07/26/17 07/26/17 07/27/17 07/27/17 07/27/17 07:00 15:00 23:00 07:00 15:00 23:00 Intake Total 775 ml Output Total 575 ml Balance 200 ml Intake Oral 775 ml Output Urine Total 575 ml Result Diagram: 07/27/17 0012 07/27/17 0012 Imaging Last Impressions Renal Ultrasound 07/27/17 0000 Signed Impressions: Service Date/Time: Thursday, July 27, 2017 12:39 - CONCLUSION: Normal examination. Gonzalez Stewart Jr., MD Chest X-Ray 07/26/17 5962 Signed Impressions: Service Date/Time: Wednesday, July 26, 2017 23:48 - CONCLUSION: Normal examination. Reginaldo Joe MD Objective Remarks GENERAL: Obese male, awake and alert. Dyspneic with speaking. SKIN: Warm and dry. HEAD: Atraumatic. Normocephalic. EYES: Pupils equal round and reactive. Extraocular motions intact. No scleral icterus. No injection or drainage. ENT: Nose without bleeding, purulent drainage or septal hematoma. Airway patent. MMM. NECK: Trachea midline. Unable to assess for JVD. CARDIOVASCULAR: Irregularly irregular rhythm without murmurs/rubs/gallops RESPIRATORY: Diminished breath sounds without wheezes, rales, rhonchi or crackles GASTROINTESTINAL: Abdomen soft, protuberant, non-tender. MUSCULOSKELETAL: 2+ pitting edema to the knee NEUROLOGICAL: Awake and alert. Able to move all extremities. Normal speech. Medications and IVs Current Medications Medications (Trade) Dose Ordered Sig/Delilah Route Start Time Stop Time Status Last Admin (NS Flush) 2 ml UNSCH PRN IVF 07/26/17 23:45 (NS Flush) 2 ml UNSCH PRN IV FLUSH 07/27/17 04:00 (NS Flush) 2 ml BID IV FLUSH 07/27/17 09:00 07/27/17 07:53 (Tylenol) 650 mg Q4H PRN PO 07/27/17 04:00 (Zofran Inj) 4 mg Q6H PRN IVP 07/27/17 04:00 (Narcan Inj) 0.4 mg UNSCH PRN IV PUSH 07/27/17 04:00 (Coco-Colace) 1 tab BID PO 07/27/17 09:00 07/27/17 07:51 (Senokot) 17.2 mg Q12H PRN PO 07/27/17 04:00 (Dulcolax Supp) 10 mg DAILY PRN RECTAL 07/27/17 04:00 (Lactulose Liq) 30 ml DAILY PRN PO 07/27/17 04:00 (Romazicon Inj) 0.2 mg Q1M PRN IV PUSH 07/27/17 04:00 (Ativan) 1 mg Q4H PRN PO 07/27/17 04:00 (Ativan Inj) 1 mg Q4H PRN IV PUSH 07/27/17 04:00 07/27/17 12:37 (Ativan) 2 mg Q2H PRN PO 07/27/17 04:00 (Ativan Inj) 2 mg Q2H PRN IV PUSH 07/27/17 04:00 (Ativan Inj) 2 mg Q1H PRN IV PUSH 07/27/17 04:00 (Ativan Inj) 2 mg Q15M PRN IV PUSH 07/27/17 04:00 (Symbicort 160-4.5 Inh) 2 puff Q12HR INH 07/27/17 09:00 07/27/17 08:37 (Lanoxin) 0.125 mg DAILY PO 07/27/17 09:00 07/27/17 07:51 (Cardizem Cd) 360 mg DAILY PO 07/27/17 09:00 07/27/17 07:50 (Breo Ellipta 100-25 Inh) 1 puff DAILY INH 07/27/17 09:00 07/27/17 08:37 (Lopressor) 100 mg Q8H PO 07/27/17 04:00 07/27/17 12:29 (Protonix) 40 mg Q12HR PO 07/27/17 09:00 07/27/17 07:51 (Xarelto) 20 mg DAILY PO 07/27/17 09:00 07/27/17 07:51 (SoluMEDROL INJ) 40 mg Q12HR IV PUSH 07/27/17 09:00 07/27/17 07:52 (Duoneb Neb) 1 ampule Q4HR WHILE AWAKE NEB NEB 07/27/17 08:00 07/27/17 11:53 (Albuterol Neb) 2.5 mg Q2HR NEB PRN NEB 07/27/17 08:00 (Bumex Inj) 2 mg BID@09,18 IV PUSH 07/27/17 18:00 A/P Assessment and Plan 61-year-old male with past medical history significant for COPD, hypertension, hyperlipidemia, CHF and A. fib presents with a three-day history of increasing dyspnea and a one-week history of bilateral lower extremity edema. Patient also has acute on chronic renal failure. 1. COPD exacerbation Solu-Medrol 40mg IV BID DuoNeb's scheduled Oxygen to maintain saturations at 92% Continue home Symbicort and Breo 2. Acute on chronic renal insufficiency, stage III Patient's creatinine 2.33 with a baseline of 1.5 avoid nephrotoxic agents Nephrology consulted, appreciate recommendations. Changed to Bumex 2mg IV BID. AM labs ordered 3. A. fib Rate controlled Continue home digoxin, diltiazem, metoprolol Continue anticoagulation with Xarelto At patient's last hospitalization, cardiology was consulted and patient was referred to Dr. Page for outpatient follow-up for possible repeat ablation. 4. Transaminitis Unclear etiology, possibly secondary to alcohol abuse Hepatitis profile pending d/c Lipitor trend LFTs 5. Congestive heart failure, decompensated Started on IV Bumex per Nephrology. Monitor electrolytes. Caution with diuresis given acute on chronic renal insufficiency monitor fluid status. Fluid restrictions. Strict I&Os. 6. Hyponatremia secondary to above treatment as outlined above monitor trend 7. Anemia suspect due to chronic disease appears stable monitor 8. Hypertension controlled Continue home medications 9. Hyperlipidemia hold home statin at this time due to elevated LFTs will consider resumption statin at lower dose/or initiate alternate statin pending improvement in LFTs 10. Alcohol abuse [facility] protocol Counseled patient is to the importance of cessation from alcohol FEN Heart healthy diet Monitor Electrolytes Anticoagulated on Xarelto Discussed with nursing staff, Dr. Andrea and patient Annalee Alarcon Jul 27, 2017 14:35
[2017-07-27 16:56] LABS: BLOOD, URINE NEG (NEG); COMMENT (UR) CULT NOT INDICATED; CULTURE IF INDICATED CULT NOT INDICATED; GLUCOSE,URINE NEG (NEG); HYALINE CAST, URINE 10 /lpf (RARE); KETONE, URINE NEG (NEG); MUCUS URINE FEW /lpf (OCC); NITRITE,URINE NEG (NEG); SQUAMOUS EPITHELIAL CELL URINE 1 /hpf (0-5); URINE COLOR YELLOW (YELLW/STRAW)
[2017-07-27] MEDS: BUMETANIDE INJ 1 MG/4 ML VIAL IV PUSH SCH (17:36)
--- NOTE | 2017-07-27 19:36 | EKG ---
Date Performed: 07/26/2017 Time Performed: 23:42:48 PTAGE: 61 years EKG: SINUS BRADYCARDIA LOW QRS VOLTAGE IN PRECORDIAL LEADS POSSIBLE RIGHT VENTRICULAR CONDUCTION DELAY NONSPECIFIC ST & T-WAVE ABNORMALITY BORDERLINE ECG Since PREVIOUS TRACING , no significant change noted PREVIOUS TRACIN07/14/2017 10.44 DOCTOR: Johnny Caputo Interpretating Date/Time 07/27/2017 19:34:47
[2017-07-27] MEDS ORDERED: ATORVASTATIN 40 MG TAB PO SCH (21:00)
[2017-07-28] VITALS (11 sets, daily range): BP systolic 103–147; BP diastolic 56–80; PULSE 58–92; RESP 18–28; TEMP 97.4–98.7; O2SAT 83–99
[2017-07-28] MEDS: METOPROLOL TARTRATE 50 MG TAB PO SCH ×3 (04:25→21:39)
[2017-07-28] MEDS: RESP: ALBUTEROL 2.5 MG/IPRATROPIUM 0.5 MG NEB (SCH) NEB ×4 (07:33→22:54)
[2017-07-28 10:25] LABS: ALKALINE PHOSPHATASE 250 U/L (45-117); ALT (GPT) 88 U/L (12-78); ANION GAP 9 MEQ/L (5-15); AST (GOT) 71 U/L (15-37); BICARBONATE 22.5 MEQ/L (21.0-32.0); CHLORIDE 101 MEQ/L (98-107); GLOMERULAR FILTRATION RATE 31 ML/MIN (>89); POTASSIUM 5.3 MEQ/L (3.5-5.1); SODIUM (NA) 132 MEQ/L (136-145); TOTAL BILIRUBIN ADULT 0.5 MG/DL (0.2-1.0)
[2017-07-28 10:26] LABS: AUTOMATED NEUTROPHIL # 7.5 TH/MM3 (1.8-7.7); BASOPHIL % 0.2 % (0.0-2.0); BLOOD UREA NITROGEN 49 MG/DL (7-18); HEMATOCRIT 26.6 % (39.0-51.0); HEMO FLAGS DIFF FINAL; LYMPH % 3.1 % (9.0-44.0); LYMPHOCYTE # 0.2 TH/MM3 (1.0-4.8); MEAN CORPUSCULAR HEMOGLOBIN 30.4 PG (27.0-34.0); MONO % 2.2 % (0.0-8.0); NEUT % 94.5 % (16.0-70.0); PLATELET COUNT 200 TH/MM3 (150-450); RED BLOOD COUNT 2.89 MIL/MM3 (4.50-5.90); RED CELL DISTRIBUTION WIDTH 17.2 % (11.6-17.2); WHITE BLOOD COUNT 7.9 TH/MM3 (4.0-11.0)
--- NOTE | 2017-07-28 10:46 | HHI.NPPN ---
Subjective Renal Failure: Chronic, Acute Interval History .Renal function is slightly better. He is slightly shaky this AM. Last ETOH Thursday night. (Tika Hatrman) Review of Systems General Constitutional: Fatigue (Tika Hartman) Respiratory Lungs: SOB (Tika Hartman) Cardiovascular Cardiac: Edema (Tika Hartman) Objective Data Data Vital Signs Date Time Temp Pulse Resp B/P (MAP) Pulse Ox O2 Delivery O2 Flow Rate FiO2 07/28/17 08:20 97.5 92 20 134/80 (98) 07/28/17 07:40 93 Nasal Cannula 3.00 07/28/17 07:36 83 Nasal Cannula 21 07/28/17 04:03 98.7 83 18 122/76 (91) 98 07/28/17 00:00 98.7 87 18 147/78 (101) 92 07/27/17 20:00 98.4 78 18 121/68 (85) 95 07/27/17 16:04 96.2 59 24 123/59 (80) 96 07/27/17 15:26 58 07/27/17 11:37 96.0 60 24 121/61 (81) 92 (Tika Hartman) -: 07/28/17 0942 07/28/17 0942 Imaging Last 72 hours Impressions Renal Ultrasound 07/27/17 0000 Signed Impressions: Service Date/Time: Thursday, July 27, 2017 12:39 - CONCLUSION: Normal examination. Gonzalez Stewart Jr., MD Chest X-Ray 07/26/17 1342 Signed Impressions: Service Date/Time: Wednesday, July 26, 2017 23:48 - CONCLUSION: Normal examination. Reginaldo Joe MD (Tika Hartman) Physical Exam General Appearance: No Acute Distress, Comfortable Appearance Remarks morbidly obese, skin flushed (Tika Hartman) Throat Throat Exam: Oral Mucosa Stark & Moist (Tika Hartman) Pulmonary Resp Exam: Clear Bilaterally, Breath Sounds Equal (Tika Hartman) Cardiology CV Exam: Normal Sinus Rhythm, Good Perfusion (Tika Hartman) Gastrointestinal/Abdomen GI Exam: Soft, Non-Tender (Tika Hartman) Musculoskeletal MS Exam: Normal Tone, Good Strength (Tika Hartman) Integumentary Skin Exam: Warm, Dry Skin Remarks some weeping lower extremities (Tika Hartman) Extremeties Extremities Exam: Pedal Pulses Palpable, Moderate Edema, Dependent Edema Extremeties Remarks chronic edema to lower extremities (Tika Hartman) Neurologic Neuro Exam: Alert, Awake, Oriented, Speech Clear, Moving All Extremities (Tika Hartman) Psychiatric Psych Exam: Appropriate Responses (Tika Hartman) Assessment/Plan Discussed Condition With: Patient Assessment Summary: CORIN/Acute Renal Failure, Hypertension, CKD Stage III Problem List: (1) Acute renal failure ICD Codes: N17.9 - Acute kidney failure, unspecified Status: Acute Plan: CORIN on CKD 3, underlying nephrosclerosis Etiology of CORIN may be due to decreased renal perfusion, possibly infection Renal function is slightly better Renal US is benign, UA unremarkable He is non oliguric Diuresis as below Repeat labs in AM Avoid nephrotoxic agents (2) Acute exacerbation of congestive heart failure ICD Codes: I50.9 - Heart failure, unspecified Status: Acute Plan: Monitor fluid status Continue Bumex 2 mg IV BID (3) A-fib ICD Codes: I48.91 - Unspecified atrial fibrillation Status: Chronic Plan: Rate controlled, he is on digoxin On Xarelto, may need dose reduction due to renal failure (4) COPD exacerbation ICD Codes: J44.1 - Chronic obstructive pulmonary disease with (acute) exacerbation Status: Acute Plan: Nebs, oxygen as needed (Tika Hartman) Plan patient was seen and examined. Renal function has improved. Continue diuretics. (Jian Matute MD) Problem Qualifiers (1) Acute exacerbation of congestive heart failure: Qualified Codes: I50.9 - Heart failure, unspecified Tika Hartman Jul 28, 2017 10:46 Jian Matute MD Jul 29, 2017 10:27
[2017-07-28] MEDS: methylPREDNISolone SOD SUCC 40 MG/1 ML VIAL IV PUSH SCH ×2 (10:56→21:38)
[2017-07-28] MEDS: PANTOPRAZOLE SOD 40 MG DELAYED RELEASE TAB PO SCH ×2 (10:56→21:39)
[2017-07-28] MEDS: BUMETANIDE INJ 1 MG/4 ML VIAL IV PUSH SCH ×2 (10:56→16:11)
[2017-07-28] MEDS: RIVAROXABAN 20 MG TAB PO SCH (10:57)
[2017-07-28] MEDS: DIGOXIN 0.125 MG TAB PO SCH (10:58)
[2017-07-28] MEDS: DILTIAZEM-CD 180 MG CAP ER PO SCH (10:58)
[2017-07-28] MEDS: DOCUSATE SODIUM 50 MG/SENNA 8.6 MG TAB PO SCH ×2 (10:58→21:39)
[2017-07-28] MEDS: BUDESONIDE-FORMOTEROL 160/4.5 MCG INHALER INH SCH ×2 (10:59→21:38)
[2017-07-28] MEDS: FLUTICASONE 100 MCG/VILANTEROL 25 MCG INHALER INH SCH (10:59)
[2017-07-28] MEDS: SODIUM CHLORIDE 0.9% FLUSH 10 ML FLUSH IV FLUSH SCH ×2 (11:02→21:00)
--- NOTE | 2017-07-28 16:19 | HHI.PR ---
Subjective Remarks Follow-up COPD and CHF exacerbation. Improving dyspnea but already dyspneic just talking. Oxygen at 3 L. Discussed with RN Objective Vitals Vital Signs Date Time Temp Pulse Resp B/P (MAP) Pulse Ox O2 Delivery O2 Flow Rate FiO2 07/28/17 08:20 97.5 92 20 134/80 (98) 07/28/17 07:40 93 Nasal Cannula 3.00 07/28/17 07:36 83 Nasal Cannula 21 07/28/17 04:03 98.7 83 18 122/76 (91) 98 07/28/17 00:00 98.7 87 18 147/78 (101) 92 07/27/17 20:00 98.4 78 18 121/68 (85) 95 I/O 07/27/17 07/27/17 07/27/17 07/28/17 07/28/17 07/28/17 07:00 15:00 23:00 07:00 15:00 23:00 Intake Total 775 ml 540 ml 220 ml Output Total 575 ml 520 ml 310 ml Balance 200 ml 20 ml -90 ml Intake Oral 775 ml 540 ml 220 ml Output Urine Total 575 ml 520 ml 310 ml # Voids 2 # Bowel Movements 2 Result Diagram: 07/28/17 0942 07/28/17 0942 Imaging Last Impressions Renal Ultrasound 07/27/17 0000 Signed Impressions: Service Date/Time: Thursday, July 27, 2017 12:39 - CONCLUSION: Normal examination. Gonzalez Stewart Jr., MD Chest X-Ray 07/26/17 2342 Signed Impressions: Service Date/Time: Wednesday, July 26, 2017 23:48 - CONCLUSION: Normal examination. Reginaldo Joe MD Objective Remarks GENERAL: Obese male, awake and alert. Dyspneic with speaking. SKIN: Warm and dry. CARDIOVASCULAR: Irregularly irregular rhythm without murmurs/rubs/gallops RESPIRATORY: Diminished breath sounds without wheezes, rales, rhonchi or crackles GASTROINTESTINAL: Abdomen soft, protuberant, non-tender. MUSCULOSKELETAL: 2+ pitting edema to the knee NEUROLOGICAL: Awake and alert. Able to move all extremities. Normal speech. Tremors noted Procedures none A/P Problem List: (1) Acute exacerbation of congestive heart failure ICD Code: I50.9 - Heart failure, unspecified Status: Acute (2) COPD exacerbation ICD Code: J44.1 - Chronic obstructive pulmonary disease with (acute) exacerbation Status: Acute Assessment and Plan 61-year-old male with past medical history significant for COPD, hypertension, hyperlipidemia, CHF and A. fib presents with a three-day history of increasing dyspnea and a one-week history of bilateral lower extremity edema. Patient also has acute on chronic renal failure. 1. COPD exacerbation. Improving Solu-Medrol 40mg IV BID DuoNeb's scheduled Oxygen to maintain saturations at 92% Continue home Symbicort and Breo 2. Acute on chronic renal insufficiency, stage III. Improving Patient's creatinine 2.33 with a baseline of 1.5 avoid nephrotoxic agents Nephrology consulted, appreciate recommendations. Changed to Bumex 2mg IV BID. AM labs ordered 3. A. fib Rate controlled Continue home digoxin, diltiazem, metoprolol Continue anticoagulation with Xarelto At patient's last hospitalization, cardiology was consulted and patient was referred to Dr. Page for outpatient follow-up for possible repeat ablation. 4. Transaminitis. Improving Unclear etiology, possibly secondary to alcohol abuse Hepatitis profile negative d/c Lipitor trend LFTs 5. Acute on chronic Diastolic heart failure exacerbation Started on IV Bumex per Nephrology. Monitor electrolytes. Caution with diuresis given acute on chronic renal insufficiency monitor fluid status. Fluid restrictions. Strict I&Os. 6. Hyponatremia secondary to above treatment as outlined above monitor trend 7. Anemia suspect due to chronic disease appears stable monitor 8. Hypertension controlled Continue home medications 9. Hyperlipidemia hold home statin at this time due to elevated LFTs will consider resumption statin at lower dose/or initiate alternate statin pending improvement in LFTs 10. Alcohol abuse [facility] protocol Counseled patient is to the importance of cessation from alcohol FEN Heart healthy diet Monitor Electrolytes Anticoagulated on Xarelto Discharge Planning not ready for dc Problem Qualifiers (1) Acute exacerbation of congestive heart failure: Qualified Codes: I50.9 - Heart failure, unspecified Greg Andrea MD Jul 28, 2017 16:19
[2017-07-28] MEDS: LORazepam 2 MG/ML VIAL IV PUSH PRN (16:22)
[2017-07-28] MEDS ORDERED: diphenhydrAMINE HCL 25 MG CAP PO ONE (23:00)
[2017-07-29] VITALS: BP 119/70; PULSE 67; RESP 20; TEMP 97.8; O2SAT 92
[2017-07-29] MEDS: METOPROLOL TARTRATE 50 MG TAB PO SCH ×2 (04:10→12:47)
[2017-07-29 04:19] VITALS: BP 119/68; PULSE 72; RESP 20; TEMP 97.8; O2SAT 94
[2017-07-29 07:57] VITALS: BP 136/89; PULSE 70; RESP 18; TEMP 97.6; O2SAT 96
[2017-07-29 08:00] VITALS: O2SAT 96
[2017-07-29] MEDS: RESP: ALBUTEROL 2.5 MG/IPRATROPIUM 0.5 MG NEB (SCH) NEB ×3 (08:00→15:30)
--- NOTE | 2017-07-29 09:21 | HHI.FF ---
Face to Face Verification Diagnosis: (1) Chronic respiratory failure with hypercapnia (2) Atrial fibrillation, chronic (3) Acute and chronic respiratory failure (4) Chronic diastolic (congestive) heart failure (5) Acute exacerbation of congestive heart failure (6) Renal insufficiency (7) COPD exacerbation Physical Therapy Order: Evaluate and Treat, Improve ambulation, Strength and gait training I have seen patient Zeeshan Nix on 07/29/17. My clinical findings support the need for the requested home health care services because: Ltd mobility - disease progression Patient has SOB Deconditioned w/ increased weakness Limited ability to care for self I certify that my clinical findings support that this patient is homebound because: Hx COPD- exertion dyspnea/weakness Unsteady gait/balance Unsafe to leave home unassisted Unable to use public transportation Poor cardiac reserve Annalee Alarcon Jul 29, 2017 09:21
--- NOTE | 2017-07-29 09:23 | HHI.NPPN ---
Subjective Renal Failure: Chronic, Acute Interval History Sitting up on edge of bed. AM labs are not available at this time. Lungs clear. (Tika Hartman) Review of Systems General Constitutional: Fatigue (Tika Hartman) Respiratory Lungs: SOB (Tika Hartman) Cardiovascular Cardiac: Edema (Tika Hartman) Objective Data Data Vital Signs Date Time Temp Pulse Resp B/P (MAP) Pulse Ox O2 Delivery O2 Flow Rate FiO2 07/29/17 08:00 96 Nasal Cannula 2.00 07/29/17 07:57 97.6 70 18 136/89 (105) 96 07/29/17 04:19 97.8 72 20 119/68 (85) 94 07/29/17 00:00 97.8 67 20 119/70 (86) 92 07/28/17 22:56 93 Nasal Cannula 2.00 07/28/17 20:30 97.9 61 28 127/60 (82) 93 07/28/17 15:37 97.4 78 20 103/56 (72) 99 07/28/17 15:00 69 07/28/17 12:00 97.5 86 20 128/62 (84) 98 (Tika Hartman) -: 07/28/17 0942 07/28/17 0942 Imaging Last 72 hours Impressions Renal Ultrasound 07/27/17 0000 Signed Impressions: Service Date/Time: Thursday, July 27, 2017 12:39 - CONCLUSION: Normal examination. Gonzalez Stewart Jr., MD Chest X-Ray 07/26/17 0272 Signed Impressions: Service Date/Time: Wednesday, July 26, 2017 23:48 - CONCLUSION: Normal examination. Reginaldo Joe MD (Tika Hartman) Physical Exam General Appearance: No Acute Distress, Comfortable Appearance Remarks morbidly obese, skin flushed (Tika Hartman) Throat Throat Exam: Oral Mucosa [place] & Moist (Tika Hartman) Pulmonary Resp Exam: Clear Bilaterally, Breath Sounds Equal, No Distress (Tika Hartman) Cardiology CV Exam: Normal Sinus Rhythm, Good Perfusion (Tika Hartman) Gastrointestinal/Abdomen GI Exam: Soft, Non-Tender (Tika Hartman) Genitourinary Exam: Clear Urine (Tika Hartman) Musculoskeletal MS Exam: Normal Tone, Good Strength (Tika Hartman) Integumentary Skin Exam: Warm, Dry Skin Remarks chronic edema to lower extremities (Tika Hartman) Extremeties Extremities Exam: Pedal Pulses Palpable, Moderate Edema, Dependent Edema Extremeties Remarks chronic edema to lower extremities (Tika Hartman) Neurologic Neuro Exam: Alert, Awake, Oriented, Speech Clear, Moving All Extremities (Tika Hartman) Psychiatric Psych Exam: Appropriate Responses (Tika Hartman) Assessment/Plan Discussed Condition With: Patient Assessment Summary: CORIN/Acute Renal Failure, Hypertension, CKD Stage III Problem List: (1) Acute renal failure ICD Codes: N17.9 - Acute kidney failure, unspecified Status: Acute Plan: CORIN on CKD 3, underlying nephrosclerosis Etiology of CORIN may be due to decreased renal perfusion, possibly infection Renal function had improved as of yesterday, today's labs are not available He is non oliguric Diuresis as below Repeat labs in AM Avoid nephrotoxic agents (2) Acute exacerbation of congestive heart failure ICD Codes: I50.9 - Heart failure, unspecified Status: Acute Plan: Monitor fluid status Continue Bumex 2 mg IV BID (3) A-fib ICD Codes: I48.91 - Unspecified atrial fibrillation Status: Chronic Plan: Rate controlled, he is on digoxin On Xarelto, may need dose reduction due to renal failure (4) COPD exacerbation ICD Codes: J44.1 - Chronic obstructive pulmonary disease with (acute) exacerbation Status: Acute Plan: Nebs, oxygen as needed (Tika Hartman) Plan patient was seen and examined. Renal function has improved. He is stable for discharge from renal standpoint. (Jian Matute MD) Problem Qualifiers (1) Acute exacerbation of congestive heart failure: Qualified Codes: I50.9 - Heart failure, unspecified Tika Hartman Jul 29, 2017 09:23 Jian Matute MD Jul 29, 2017 20:55
[2017-07-29 11:00] VITALS: PULSE 78
[2017-07-29] MEDS: DIGOXIN 0.125 MG TAB PO SCH (11:13)
[2017-07-29] MEDS: DILTIAZEM-CD 180 MG CAP ER PO SCH (11:14)
[2017-07-29] MEDS: DOCUSATE SODIUM 50 MG/SENNA 8.6 MG TAB PO SCH (11:14)
[2017-07-29] MEDS: PANTOPRAZOLE SOD 40 MG DELAYED RELEASE TAB PO SCH (11:14)
[2017-07-29] MEDS: RIVAROXABAN 20 MG TAB PO SCH (11:14)
[2017-07-29] MEDS: BUDESONIDE-FORMOTEROL 160/4.5 MCG INHALER INH SCH (11:15)
[2017-07-29] MEDS: SODIUM CHLORIDE 0.9% FLUSH 10 ML FLUSH IV FLUSH SCH (11:15)
[2017-07-29] MEDS: BUMETANIDE INJ 1 MG/4 ML VIAL IV PUSH SCH (11:15)
[2017-07-29] MEDS: methylPREDNISolone SOD SUCC 40 MG/1 ML VIAL IV PUSH SCH (11:15)
[2017-07-29] MEDS: FLUTICASONE 100 MCG/VILANTEROL 25 MCG INHALER INH SCH (11:16)
[2017-07-29 12:30] VITALS: BP 140/83; PULSE 121; RESP 18; TEMP 97.6; O2SAT 93
[2017-07-29] MEDS ORDERED: predniSONE 20 MG TAB PO SCH (12:30)
[2017-07-29 14:12] LABS: BICARBONATE 24.8 MEQ/L (21.0-32.0); POTASSIUM 4.9 MEQ/L (3.5-5.1)
[2017-07-29 14:44] LABS: TOTAL BILIRUBIN ADULT 0.5 MG/DL (0.2-1.0)
[2017-07-29] MEDS ORDERED: XARE15TA PO (15:24)
[2017-07-29] MEDS ORDERED: PRED20 PO (15:26)
--- NOTE | 2017-07-29 15:29 | HHI.FF ---
Face to Face Verification Diagnosis: (1) COPD (chronic obstructive pulmonary disease) (2) CHF (congestive heart failure) (3) Renal insufficiency Physical Therapy Order: Evaluate and Treat I have seen patient Zeeshan Nix on 07/29/17. My clinical findings support the need for the requested home health care services because: Ltd mobility - disease progression Patient has SOB I certify that my clinical findings support that this patient is homebound because: Hx COPD- exertion dyspnea/weakness Charo Murcia Jul 29, 2017 15:29
--- NOTE | 2017-07-29 15:39 | HHI.DCPOC ---
Discharge Care Plan Diagnosis: (1) COPD exacerbation (2) Chronic diastolic (congestive) heart failure Your Health Problems Are: Shortness of Breath Goals to Promote Your Health * To prevent worsening of your condition and complications * To maintain your health at the optimal level Directions to Meet Your Goals Take your medications as prescribed Follow your dietary instruction Follow activity as directed Keep your appointments as scheduled Take your immunizations and boosters as scheduled If your symptoms worsen call your PCP, if no PCP go to Urgent Care Center or Emergency Room Smoking is Dangerous to Your Health. Avoid second hand smoke Call the 24-hour hour crisis hotline for domestic abuse at Charo MurciaP Jul 29, 2017 15:39
--- NOTE | 2017-07-29 17:03 | HHI.DS ---
Discharge Summary Admission Date Jul 27, 2017 at 02:34 Discharge Date: Jul 29, 2017 Admitting Diagnosis CHF exacerbation (1) Acute exacerbation of congestive heart failure ICD Code: I50.9 - Heart failure, unspecified Diagnosis: Principal Status: Acute (2) COPD exacerbation ICD Code: J44.1 - Chronic obstructive pulmonary disease with (acute) exacerbation Diagnosis: Principal Status: Acute Procedures none Brief History - From Admission 61-year-old male with a past medical history significant for A. fib anticoagulated on Xarelto, COPD, CHF, hypertension and hyperlipidemia with chronic renal insufficiency presents to the hospital with a three-day history of increasing shortness of breath. The patient has when necessary oxygen that he has been using and has remained dyspneic despite the supplemental oxygen. He was recently discharged on 07/03/17 where he was treated for cellulitis, renal insufficiency and A. fib with RVR. The patient also reports a one-week history of bilateral lower extremity edema. He states he is compliant with all of his medications. Lab values significant for a sodium of 130, BUN/creatinine of 38/2.33 (baseline creatinine 1.5), AST/ALT of 140/105 and a BNP of 277. Chest x-ray with no acute process. CBC/BMP: 07/28/17 0942 07/29/17 1313 Significant Findings Laboratory Tests Test 07/27/17 00:12 07/27/17 05:34 07/27/17 16:10 07/28/17 09:42 Red Blood Count 3.08 MIL/MM3 (4.50-5.90) 2.89 MIL/MM3 (4.50-5.90) Hemoglobin 8.8 GM/DL (13.0-17.0) 8.8 GM/DL (13.0-17.0) Hematocrit 28.1 % (39.0-51.0) 26.6 % (39.0-51.0) Mean Corpuscular Hemoglobin Concent 31.3 % (32.0-36.0) Mean Platelet Volume 6.2 FL (7.0-11.0) Neutrophils (%) (Auto) 78.2 % (16.0-70.0) 94.5 % (16.0-70.0) Prothrombin Time 13.6 SEC (9.8-11.6) Activated Partial Thromboplast Time 31.3 SEC (24.3-30.1) Blood Urea Nitrogen 38 MG/DL (7-18) 49 MG/DL (7-18) Creatinine 2.33 MG/DL (0.60-1.30) 2.15 MG/DL (0.60-1.30) Albumin 3.0 GM/DL (3.4-5.0) 3.0 GM/DL (3.4-5.0) Calcium Level 7.9 MG/DL (8.5-10.1) 8.4 MG/DL (8.5-10.1) Alkaline Phosphatase 272 U/L (45-117) 250 U/L (45-117) Aspartate Amino Transf (AST/SGOT) 140 U/L (15-37) 71 U/L (15-37) Alanine Aminotransferase (ALT/SGPT) 105 U/L (12-78) 88 U/L (12-78) Sodium Level 130 MEQ/L (136-145) 132 MEQ/L (136-145) Carbon Dioxide Level 19.6 MEQ/L (21.0-32.0) Estimat Glomerular Filtration Rate 28 ML/MIN (>89) 31 ML/MIN (>89) Troponin I LESS THAN 0.02 NG/ML B-Type Natriuretic Peptide 277 PG/ML (0-100) Urine Mucus FEW /lpf (OCC) Lymphocytes (%) (Auto) 3.1 % (9.0-44.0) Lymphocytes # (Auto) 0.2 TH/MM3 (1.0-4.8) Random Glucose 159 MG/DL (74-106) Potassium Level 5.3 MEQ/L (3.5-5.1) Test 07/29/17 13:13 Blood Urea Nitrogen 65 MG/DL (7-18) Creatinine 2.08 MG/DL (0.60-1.30) Random Glucose 164 MG/DL (74-106) Albumin 3.2 GM/DL (3.4-5.0) Alkaline Phosphatase 199 U/L (45-117) Aspartate Amino Transf (AST/SGOT) 42 U/L (15-37) Sodium Level 134 MEQ/L (136-145) Estimat Glomerular Filtration Rate 32 ML/MIN (>89) Imaging Last Impressions Renal Ultrasound 07/27/17 0000 Signed Impressions: Service Date/Time: Thursday, July 27, 2017 12:39 - CONCLUSION: Normal examination. Gonzalez Stewart Jr., MD Chest X-Ray 07/26/17 2342 Signed Impressions: Service Date/Time: Wednesday, July 26, 2017 23:48 - CONCLUSION: Normal examination. Reginaldo Joe MD PE at Discharge GENERAL: Obese male, awake and alert. Dyspneic with speaking. SKIN: Warm and dry. CARDIOVASCULAR: Irregularly irregular rhythm without murmurs/rubs/gallops RESPIRATORY: Diminished breath sounds without wheezes, rales, rhonchi or crackles GASTROINTESTINAL: Abdomen soft, protuberant, non-tender. MUSCULOSKELETAL: 2+ pitting edema to the knee NEUROLOGICAL: Awake and alert. Able to move all extremities. Normal speech. Tremors noted Hospital Course 61-year-old male with past medical history significant for COPD, hypertension, hyperlipidemia, CHF and A. fib presents with a three-day history of increasing dyspnea and a one-week history of bilateral lower extremity edema. Patient also has acute on chronic renal failure. 1. COPD exacerbation. Improving his breathing is back to baseline Solu-Medrol 40mg IV BID switch to by mouth prednisone 40 mg daily for 5 days DuoNeb's scheduled Oxygen to maintain saturations at 92% Continue home Symbicort and Breo 2. Acute on chronic renal insufficiency, stage III. Improving Patient's creatinine 2.33 with a baseline of 1.5 avoid nephrotoxic agents Nephrology consulted, appreciate recommendations. Resume previous furosemide 3. A. fib Rate controlled Continue home digoxin, diltiazem, metoprolol Continue anticoagulation with Xarelto dose adjusted At patient's last hospitalization, cardiology was consulted and patient was referred to Dr. Page for outpatient follow-up for possible repeat ablation. 4. Transaminitis. Improving Unclear etiology, possibly secondary to alcohol abuse Hepatitis profile negative May restart Lipitor trend LFTs 5. Acute on chronic Diastolic heart failure exacerbation. Much improved Started on IV Bumex per Nephrology. Monitor electrolytes. Caution with diuresis given acute on chronic renal insufficiency monitor fluid status. Fluid restrictions. Strict I&Os. 6. Hyponatremia secondary to above treatment as outlined above monitor trend 7. Anemia suspect due to chronic disease appears stable monitor 8. Hypertension controlled Continue home medications 9. Hyperlipidemia May restart home statin 10. Alcohol abuse CIWA protocol Counseled patient is to the importance of cessation from alcohol FEN Heart healthy diet Monitor Electrolytes Anticoagulated on Xarelto Pt Condition on Discharge: Fair Discharge Disposition: Disch w/ Home Health Serv Discharge Time: > 30 minutes Discharge Instructions DIET: Follow Instructions for: Heart Healthy Diet Activities you can perform: Regular-No Restrictions Follow up Referrals: Cardiology - 1 Week Nephrology - 1 Week with Jian Matute MD PCP Follow-up - 2-3 Days New Medications: Prednisone (Prednisone) 20 Mg Tab 40 MG PO DAILY for Inflammation, #10 TAB Changed Medications: Rivaroxaban (Xarelto) 15 Mg Tab 15 MG PO DAILY for Blood Clot Prevention for 30 Days, #30 TAB 0 Refills ( Changed from: Rivaroxaban (Xarelto) 20 Mg Tab 20 Mg PO DAILY WITH DINNER Blood Clot Prevention Ref 0) Continued Medications: Albuterol 18 GM Inh (Ventolin Hfa 18 GM Inh) 90 Mcg/Act Aer 1 PUFF INH Q4H PRN for SHORTNESS OF BREATH, #1 INHALER 3 Refills Atorvastatin (Atorvastatin) 40 Mg Tab 40 MG PO HS for Cholesterol Management, #30 TAB 0 Refills Budesonide-Formoterol Inh (Symbicort Inh) 160-4.5 Mcg/Act Aero 2 PUFF INH Q12HR for Breathing Treatment, #1 INHALER 3 Refills Digoxin (Digoxin) 0.125 Mg Tab 0.125 MG PO DAILY for afib, #30 TAB Diltiazem CD 24 HR (Cardizem CD 24 HR) 360 Mg Caper 360 MG PO DAILY for afib, #30 CAP 0 Refills Fluticasone-Vilanterol Inh (Breo Ellipta Inh) 100-25 Mcg/Act Inh 1 PUFF INH DAILY, #1 INHALER 0 Refills Use daily at the same time. Furosemide (Lasix) 40 Mg Tab 40 MG PO BID, #60 TAB 0 Refills Ipratropium HFA 12.9 GM Inh (Atrovent HFA 12.9 GM Inh) 17 Mcg/Act Aer 2 PUFF INH Q6HR PRN for SHORTNESS OF BREATH, #1 INHALER 3 Refills Metoprolol Tartrate (Lopressor) 50 Mg Tab 100 MG PO Q8H for afib, #90 TAB Pantoprazole (Pantoprazole) 40 Mg Tab 40 MG PO Q12HR for gastritis, #62 TAB Greg Andrea MD Jul 29, 2017 17:03
== END 2017-07-29 17:48 | disposition home or self-care (01) ==
LOC: NEPE 23:33 → NEDA 07-27 02:34 → NEPHCDU 07-27 04:45
PROVIDERS: ADMIT Internal Medicine; ATTEND Internal Medicine
DX: J44.1 Chronic obstructive pulmonary disease with (acute) exacerbation (principal); N17.9 Acute kidney failure, unspecified; I13.0 Hypertensive heart and chronic kidney disease with heart failure and stage 1 through stage 4 chronic kidney disease, or unspecified chronic kidney disease; I50.33 Acute on chronic diastolic (congestive) heart failure; N18.3 Chronic kidney disease, stage 3 (moderate); I48.91 Unspecified atrial fibrillation; R00.1 Bradycardia, unspecified; R79.89 Other specified abnormal findings of blood chemistry; E78.5 Hyperlipidemia, unspecified; F10.10 Alcohol abuse, uncomplicated; R74.0 Nonspecific elevation of levels of transaminase and lactic acid dehydrogenase [LDH]; E87.1 Hypo-osmolality and hyponatremia; D63.8 Anemia in other chronic diseases classified elsewhere; E78.00 Pure hypercholesterolemia, unspecified; I25.10 Atherosclerotic heart disease of native coronary artery without angina pectoris; G47.30 Sleep apnea, unspecified; E66.9 Obesity, unspecified; Z68.42 Body mass index [BMI] 45.0-49.9, adult; F12.90 Cannabis use, unspecified, uncomplicated; Z99.81 Dependence on supplemental oxygen; Z86.73 Personal history of transient ischemic attack (TIA), and cerebral infarction without residual deficits; Z79.01 Long term (current) use of anticoagulants; Z79.899 Other long term (current) drug therapy
CPT/HCPCS: 71010; 76775; 80053; 80069; 80074; 80162; 81001; 82247; 82550; 83735; 83880; 84075; 84155; 84450; 84460; 84484; 85025; 85610; 85730; 93005; 94640; 94664; 96374; 96375; 96376; 97161; 99285; G0378; G8987; G8988; J1940; J2060; J2920; J7512

== ENCOUNTER 2017-08-16 16:34 | Inpatient (IN) | payer OTHER, MEDICARE ==
[~2017-08-16] VITALS: Ht 175.3 cm; Wt 158.4 kg
[~2017-08-16 16:34] MED LIST changes: -CEPH500C PO; +FURO1TAB60 PO; -FURO40TA PO; -LACTTAB8 PO; -METO50TA PO; +PRED20 PO; +XARE15TA PO; -XARE20TA PO
[2017-08-16 17:16] VITALS: BP 120/56; PULSE 104; RESP 16; TEMP 98; O2SAT 100
[2017-08-16 18:21] VITALS: BP 129/71; PULSE 104; RESP 24; O2SAT 98
[2017-08-16 18:27] VITALS: O2SAT 100
[2017-08-16] MEDS ORDERED: RESP: ALBUTEROL 2.5 MG/IPRATROPIUM 0.5 MG NEB (SCH) INH ONE (18:30)
[2017-08-16] MEDS ORDERED: FUROSEMIDE 40 MG/4 ML VIAL IVP ONE (18:30)
[2017-08-16] MEDS ORDERED: SODIUM CHLORIDE 0.9% FLUSH 10 ML FLUSH IVF PRN (18:30)
--- NOTE | 2017-08-16 18:50 | RADRPT ---
EXAM DATE/TIME: 08/16/2017 18:41 [facility] COMPARISON: CHEST SINGLE AP, July 26, 2017, 23:48. INDICATIONS : Shortness of breath. MEDICAL HISTORY : Chronic obstructive pulmonary disease. Hypercholesterolemia. SURGICAL HISTORY : Ablation Cardiac Cath ENCOUNTER: Initial ACUITY: 1 day PAIN SCORE: 0/10 LOCATION: Bilateral chest FINDINGS: A single view of the chest demonstrates the lungs to be symmetrically aerated without evidence of mas s, infiltrate or effusion. The cardiomediastinal contours are stable. Remainder of the exam is uncha nged. CONCLUSION: 1. No acute abnormality or significant interval change. Ollie Moran MD on August 16, 2017 at 18:47 Board Certified Radiologist. This report was verified electronically.
--- NOTE | 2017-08-16 18:58 | PD ---
HPI Chief Complaint: Edema Time Seen by Provider: 18:12 Travel History International Travel<30 days: No Contact w/Intl Traveler<30days: No Traveled to known affect area: No History of Present Illness HPI 61-year-old male presents to the emergency department for evaluation of increasing shortness of breath, bilateral lower extremity edema, erythema. Patient has history of COPD, CHF, atrial fibrillation on Xarelto, hypertension, hyperlipidemia, chronic renal insufficiency. Patient reports increasing shortness of breath over the past week. He states that he gets very short of breath with minimal exertion. He denies any chest pain. He is on 2 L O2 nasal cannula at home. Patient states that he is compliant with his Lasix. Patient also reports worsening bilateral lower extremity edema and erythema. Right leg does have a foul odor. He denies any fevers or chills. No abdominal pain. No nausea, vomiting, diarrhea. No exacerbating or alleviating factors. He is not currently on antibiotics. No recent travel or surgery. No hemoptysis. No history of DVT or PE. Moderate severity. PFSH Past Medical History Hx Anticoagulant Therapy: Yes Asthma: No Atrial Fibrillation: Yes Blood Disorders: No Heart Rhythm Problems: Yes Cancer: No Cardiac Catheterization: Yes Cardiovascular Problems: Yes (HTN, CHF) High Cholesterol: Yes Chest Pain: Yes Congestive Heart Failure: Yes COPD: Yes Cerebrovascular Accident: Yes (TIA) Coronary Artery Disease: Yes Diabetes: No Diminished Hearing: No Endocrine: No Gastrointestinal Disorders: No Genitourinary: No Hypertension: Yes Immune Disorder: No Implanted Vascular Access Dvce: No Musculoskeletal: No Neurologic: No Psychiatric: No Reproductive: No Respiratory: Yes (COPD) Integumentary: Yes (BILATERAL LOWER LEG SWELLING/SKIN ITEGRATY ISSUES cellulitis) Immunizations Current: Yes Migraines: No Seizures: Yes Sickle Cell Disease: No Sleep Apnea: Yes Thyroid Disease: No Past Surgical History Abdominal Surgery: Yes (appendix) Appendectomy: Yes Cardiac Surgery: Yes (ABLATIONS X 3 (afib)) Genitourinary Surgery: No Neurologic Surgery: No Tonsillectomy: Yes Other Surgery: Yes (3 CARDIAC ABLATIONS) Social History Alcohol Use: Yes (3-4 cocktails daily) Tobacco Use: No Substance Use: Yes (MARIJUANA "ONCE IN A WHILE") Allergies-Medications (Allergen,Severity, Reaction): Coded Allergies: No Known Allergies (Unverified Allergy, Unknown, 08/16/17) Reported Meds & Prescriptions Reported Meds & Active Scripts Active Xarelto (Rivaroxaban) 15 Mg Tab 15 Mg PO DAILY 30 Days Digoxin 0.125 Mg Tab 0.125 Mg PO DAILY Cardizem CD 24 HR (Diltiazem CD 24 HR) 360 Mg Caper 360 Mg PO DAILY Lopressor (Metoprolol Tartrate) 50 Mg Tab 100 Mg PO Q8H Pantoprazole (Pantoprazole Sodium) 40 Mg Tab 40 Mg PO Q12HR Ventolin Hfa 18 GM Inh (Albuterol Sulfate) 90 Mcg/Act Aer 1 Puff INH Q4H PRN Atrovent HFA 12.9 GM Inh (Ipratropium [place]) 17 Mcg/Act Aer 2 Puff INH Q6HR PRN Symbicort Inh (Budesonide/Formoterol Fumarate) 160-4.5 Mcg/Act Aero 2 Puff INH Q12HR Reported Lasix (Furosemide) 40 Mg Tab 40 Mg PO BID Breo Ellipta Inh (Fluticasone/Vilanterol) 100-25 Mcg/Act Inh 1 Puff INH DAILY Use daily at the same time. Atorvastatin (Atorvastatin Calcium) 40 Mg Tab 40 Mg PO HS Review of Systems Except as stated in HPI: all other systems reviewed are Neg Physical Exam Narrative GENERAL: Well-nourished, well-developed male patient, afebrile. SKIN: Focused skin assessment warm/dry. Bilateral lower extremities edematous, with erythema. Right lower extremity is worse with foul odor. HEAD: Normocephalic. Atraumatic. EYES: No scleral icterus. No injection or drainage. NECK: Supple, trachea midline. No JVD or lymphadenopathy. CARDIOVASCULAR: Regular rate and rhythm without murmurs, gallops, or rubs. RESPIRATORY: Breath sounds equal bilaterally. No accessory muscle use. Lungs sounds diminished throughout. GASTROINTESTINAL: Abdomen obese, soft, non-tender, nondistended. MUSCULOSKELETAL: No cyanosis. Patient has bilateral 3+, pitting lower extremity edema. BACK: Nontender without obvious deformity. No CVA tenderness. Data Data Last Documented VS Vital Signs Date Time Temp Pulse Resp B/P (MAP) Pulse Ox O2 Delivery O2 Flow Rate FiO2 08/16/17 18:27 100 Nasal Cannula 2.00 08/16/17 18:21 104 24 08/16/17 17:16 98.0 Orders Orders Complete Blood Count With Diff (08/16/17 18:23) Comprehensive Metabolic Panel (08/16/17 18:) B-Type Natriuretic Peptide (08/16/17 18:) Act Partial Throm Time (Ptt) (08/16/17 18:23) Prothrombin Time / Inr (Pt) (08/16/17 18:23) Magnesium (Mg) (08/16/17 18:23) Ckmb (Isoenzyme) Profile (08/16/17 18:) Troponin I (08/16/17 18:23) Urinalysis - C+S If Indicated (08/16/17 18:23) Blood Culture (08/16/17 18:23) Iv Access Insert/Monitor (08/16/1723) Electrocardiogram (08/16/17 18:23) Ecg Monitoring (08/16/17 18:23) Oximetry (08/16/17 18:23) Oxygen Administration (08/16/17 18:23) Chest, Single Ap (08/16/17 18:23) Sodium Chloride 0.9% Flush (Ns Flush) (08/16/17 18:30) Furosemide Inj (Lasix Inj) (08/16/17 18:30) Albuterol-Ipratropium Neb (Duoneb Neb) (08/16/17 18:30) Lactic Acid Sepsis Protocol (08/16/17 18:23) Wound Culture And Gram Stain (08/16/17 18:23) Clindamycin Inj (Cleocin Inj) (08/16/17 20:00) Admit Order (Ed Use Only) (08/16/17 20:06) Labs Laboratory Tests Test 08/16/17 18:40 08/16/17 18:45 White Blood Count 10.1 TH/MM3 Red Blood Count 2.80 MIL/MM3 Hemoglobin 7.8 GM/DL Hematocrit 24.9 % Mean Corpuscular Volume 88.7 FL Mean Corpuscular Hemoglobin 27.8 PG Mean Corpuscular Hemoglobin Concent 31.3 % Red Cell Distribution Width 19.8 % Platelet Count 238 TH/MM3 Mean Platelet Volume 7.8 FL Neutrophils (%) (Auto) 86.9 % Lymphocytes (%) (Auto) 7.0 % Monocytes (%) (Auto) 4.6 % Eosinophils (%) (Auto) 0.8 % Basophils (%) (Auto) 0.7 % Neutrophils # (Auto) 8.8 TH/MM3 Lymphocytes # (Auto) 0.7 TH/MM3 Monocytes # (Auto) 0.5 TH/MM3 Eosinophils # (Auto) 0.1 TH/MM3 Basophils # (Auto) 0.1 TH/MM3 CBC Comment DIFF FINAL Differential Comment Prothrombin Time 14.9 SEC Prothromb Time International Ratio 1.5 RATIO Activated Partial Thromboplast Time 28.2 SEC Blood Urea Nitrogen 34 MG/DL Creatinine 2.50 MG/DL Random Glucose 119 MG/DL Total Protein 6.5 GM/DL Albumin 2.8 GM/DL Calcium Level 8.4 MG/DL Magnesium Level 1.8 MG/DL Alkaline Phosphatase 213 U/L Aspartate Amino Transf (AST/SGOT) 21 U/L Alanine Aminotransferase (ALT/SGPT) 27 U/L Total Bilirubin 1.3 MG/DL Sodium Level 132 MEQ/L Potassium Level 3.7 MEQ/L Chloride Level 95 MEQ/L Carbon Dioxide Level 30.1 MEQ/L Anion Gap 7 MEQ/L Estimat Glomerular Filtration Rate 26 ML/MIN Total Creatine Kinase 46 U/L Troponin I 0.03 NG/ML B-Type Natriuretic Peptide 308 PG/ML Lactic Acid Level 1.5 mmol/L MDM Medical Decision Making Medical Screen Exam Complete: Yes Emergency Medical Condition: Yes Medical Record Reviewed: Yes Differential Diagnosis CHF exacerbation versus COPD exacerbation versus cellulitis versus pneumonia Narrative Course 61-year-old male presents to the emergency department for increasing shortness breath over the past week as well as bilateral lower extremity edema with erythema. EKG shows sinus tachycardia, heart rate [address] depression and inverted T waves in V2, V3. CBC, CMP, BNP, magnesium, CK, troponin, PTT, PT/INR, UA, lactic acid, blood cultures 2 are ordered and pending. Chest x-ray is ordered and pending. Blood cultures taken from right lower extremity. Patient is given DuoNeb 1 and Lasix 40 mg IV. CBC shows anemia with hemoglobin 7.8, hematocrit 24.9. CMP shows worsening renal insufficiency with BUN 34, creatinine 2.5. BNP is 308. Magnesium is 1.8. CK is 46. Troponin is 0.03. Lactic acid is 1.5. PTT is 28.2. PT/INR is 14.9/1.5. Chest x-ray shows no acute abnormality or significant interval change. Patient started on clindamycin 600 mg IV due to renal function for cellulitis. Hospitalist is paged for admission. Dr. Cash accepted admission. Sepsis Criteria SIRS Criteria (2 or more): Heart rate over 90 Diagnosis Primary Impression: Cellulitis, leg Qualified Codes: L03.115 - Cellulitis of right lower limb Additional Impressions: Chronic diastolic congestive heart failure SOB (shortness of breath) Admitting Information Admitting Physician Requests: Observation Irma Wall Aug 16, 2017 18:58
[2017-08-16 19:16] LABS: AUTOMATED NEUTROPHIL # 8.8 TH/MM3 (1.8-7.7); BASOPHIL # 0.1 TH/MM3 (0-0.2); BASOPHIL % 0.7 % (0.0-2.0); EOSINOPHIL # 0.1 TH/MM3 (0-0.4); EOSINOPHIL % 0.8 % (0.0-4.0); HEMATOCRIT 24.9 % (39.0-51.0); HEMO FLAGS DIFF FINAL; LYMPHOCYTE # 0.7 TH/MM3 (1.0-4.8); MEAN CELL VOLUME 88.7 FL (80.0-100.0); MEAN CORPUSCULAR HEMOGLOBIN 27.8 PG (27.0-34.0); MEAN CORPUSCULAR HGB CONC 31.3 % (32.0-36.0); MONO % 4.6 % (0.0-8.0); NEUT % 86.9 % (16.0-70.0); PLATELET COUNT 238 TH/MM3 (150-450); RED CELL DISTRIBUTION WIDTH 19.8 % (11.6-17.2); WHITE BLOOD COUNT 10.1 TH/MM3 (4.0-11.0)
[2017-08-16 19:24] LABS: APTT (PATIENT) 28.2 SEC (24.3-30.1); INTERNATIONAL NORMALIZED RATIO 1.5 RATIO; PROTHROMBIN TIME - PATIENT 14.9 SEC (9.8-11.6)
[2017-08-16 19:28] LABS: ANION GAP 7 MEQ/L (5-15); AST (GOT) 21 U/L (15-37); BICARBONATE 30.1 MEQ/L (21.0-32.0); BLOOD UREA NITROGEN 34 MG/DL (7-18); CHLORIDE 95 MEQ/L (98-107); GLOMERULAR FILTRATION RATE 26 ML/MIN (>89); MAGNESIUM 1.8 MG/DL (1.5-2.5); POTASSIUM 3.7 MEQ/L (3.5-5.1); SODIUM (NA) 132 MEQ/L (136-145)
[2017-08-16 19:30] LABS: ALT (GPT) 27 U/L (12-78)
[2017-08-16 19:33] LABS: ALKALINE PHOSPHATASE 213 U/L (45-117); TOTAL BILIRUBIN ADULT 1.3 MG/DL (0.2-1.0)
[2017-08-16 19:35] LABS: CREATINE KINASE 46 U/L (39-308)
[2017-08-16] MEDS ORDERED: CLINDAMYCIN INJ 600 MG in SODIUM CHLORIDE 0.9% INJ 100 ML IV ONE (20:00)
[2017-08-16] MEDS ORDERED: BISACODYL 10 MG SUPP RECTAL PRN (20:15)
[2017-08-16] MEDS ORDERED: LACTULOSE SYRUP 20 GM/30 ML CUP PO PRN (20:15)
[2017-08-16] MEDS ORDERED: ACETAMINOPHEN 325 MG TAB PO PRN (20:15)
[2017-08-16] MEDS ORDERED: MORPHINE SULFATE 4 MG/ML INJ IV PUSH PRN (20:15)
[2017-08-16] MEDS ORDERED: RESP: ALBUTEROL 2.5 MG/IPRATROPIUM 0.5 MG NEB (PRN) NEB (20:15)
[2017-08-16] MEDS ORDERED: ACETAMINOPHEN/HYDROcodone 325 MG/5 MG TAB PO PRN (20:15)
[2017-08-16] MEDS ORDERED: SENNOSIDES 8.6 MG TAB PO PRN (20:15)
[2017-08-16] MEDS ORDERED: ONDANSETRON HCL 4 MG/2 ML VIAL IVP PRN (20:15)
[2017-08-16] MEDS ORDERED: MAGNESIUM HYDROXIDE SUSP 30 ML CUP PO PRN (20:15)
--- NOTE | 2017-08-16 20:16 | HHI.HP ---
[facility] Service [facility] Primary Care Physician Unknown Admission Diagnosis cellulitis, CHF Diagnoses: (1) COPD (chronic obstructive pulmonary disease) Diagnosis: Principal (2) CHF (congestive heart failure) Diagnosis: Principal (3) Renal insufficiency Diagnosis: Principal (4) Cellulitis, leg Diagnosis: Principal (5) A-fib Diagnosis: Principal (6) Anemia Diagnosis: Principal Travel History International Travel<30 Days: No Contact w/Intl Traveler <30 Da: No Traveled to Known Affected Are: No History of Present Illness This is a 61-year-old male with a PMH of HTN, A. fib on Xarelto, CHF (Echo w/ EF 65%), COPD and CAD who presented to the ER w/ c/o SOB and bilateral lower extremity swelling x1 wk. States symptoms have been getting progressively worse, also notes some redness to right leg. Denies fever, chills , cough or chest pain. On arrival, BP 120/56, HR 104, O2 sat 100% on 2L NC, Afebrile. Noted to have some wheezing on exam. Hemoglobin 7.8, previously 8.8 on 07/28/17. Creatinine 2.50, previously 2.08 on 07/29/17. BNP 308. Troponin 0.03. Lactic Acid normal. INR 1.5. CXR with no acute findings. S/p Clinda in ER. Review of Systems Except as stated in HPI: all other systems reviewed are Neg ROS: 14 point review of systems otherwise negative. Past Family Social History Past Medical History PMH: HTN, A. fib on Xarelto, CHF (Echo 02/03/17 w/ EF 65%), COPD and CAD Past Surgical History PAST SURGICAL HISTORY: Appendectomy, Cardiac Ablation, Tonsillectomy Allergies: Coded Allergies: No Known Allergies (Unverified Allergy, Unknown, 08/16/17) Family History PAST FAMILY HISTORY: Reviewed. No h/o DM or CAD Social History PAST SOCIAL HISTORY: 3-4 drinks daily. Negative for drugs. +Marijuana. Physical Exam Vital Signs Vital Signs Date Time Temp Pulse Resp B/P (MAP) Pulse Ox O2 Delivery O2 Flow Rate FiO2 08/16/17 18:27 100 Nasal Cannula 2.00 08/16/17 18:27 100 Nasal Cannula 2.00 08/16/17 18:21 104 24 129/71 (90) 98 Nasal Cannula 2.00 08/16/17 18:21 97 Nasal Cannula 2.00 08/16/17 17:16 98.0 104 16 120/56 (77) 100 Physical Exam PE: GENERAL: Middle-aged white male in no acute distress. HEENT: PERRLA, EOMI. No scleral icterus or conjunctival pallor. No lid lag or facial droop. CARDIOVASCULAR: Regular rate and rhythm. No obvious murmurs to auscultation. No chest tenderness to palpation. RESPIRATORY: No obvious rhonchi or wheezing. Clear to auscultation. Breath sounds equal bilaterally. GASTROINTESTINAL: Abdomen soft, non-tender, nondistended. BS normal. MUSCULOSKELETAL: Extremities without clubbing, cyanosis. 2+ edema, bilaterally, RLE erythema, foul-smelling. No obvious deformities. NEUROLOGICAL: Awake, alert and oriented x4. No focal neurologic deficits. Moving both upper and lower extremities spontaneously. Laboratory Laboratory Tests Test 08/16/17 18:40 08/16/17 18:45 White Blood Count 10.1 Red Blood Count 2.80 Hemoglobin 7.8 Hematocrit 24.9 Mean Corpuscular Volume 88.7 Mean Corpuscular Hemoglobin 27.8 Mean Corpuscular Hemoglobin Concent 31.3 Red Cell Distribution Width 19.8 Platelet Count 238 Mean Platelet Volume 7.8 Neutrophils (%) (Auto) 86.9 Lymphocytes (%) (Auto) 7.0 Monocytes (%) (Auto) 4.6 Eosinophils (%) (Auto) 0.8 Basophils (%) (Auto) 0.7 Neutrophils # (Auto) 8.8 Lymphocytes # (Auto) 0.7 Monocytes # (Auto) 0.5 Eosinophils # (Auto) 0.1 Basophils # (Auto) 0.1 CBC Comment DIFF FINAL Differential Comment Prothrombin Time 14.9 Prothromb Time International Ratio 1.5 Activated Partial Thromboplast Time 28.2 Blood Urea Nitrogen 34 Creatinine 2.50 Random Glucose 119 Total Protein 6.5 Albumin 2.8 Calcium Level 8.4 Magnesium Level 1.8 Alkaline Phosphatase 213 Aspartate Amino Transf (AST/SGOT) 21 Alanine Aminotransferase (ALT/SGPT) 27 Total Bilirubin 1.3 Sodium Level 132 Potassium Level 3.7 Chloride Level 95 Carbon Dioxide Level 30.1 Anion Gap 7 Estimat Glomerular Filtration Rate 26 Total Creatine Kinase 46 Troponin I 0.03 B-Type Natriuretic Peptide 308 Lactic Acid Level 1.5 Date/Time Source Procedure Growth Status 08/16/17 18:40 Blood Peripheral Aerobic Blood Culture Pending Received 08/16/17 18:40 Blood Peripheral Anaerobic Blood Culture Pending Received 08/16/17 18:35 Wound Leg Gram Stain Pending Received 08/16/17 18:35 Wound Leg Wound Culture Pending Received Result Diagram: 08/16/17 1840 08/16/17 1840 Caprini VTE Risk Assessment Caprini VTE Risk Assessment: Mod/High Risk (score >= 2) Caprini Risk Assessment Model Point Value = 1 Point Value = 2 Point Value = 3 Point Value = 5 Age 41-60 Minor surgery BMI > 25 kg/m2 Swollen legs Varicose veins or History of unexplained or recurrent spontaneous Oral contraceptives or hormone replacement Sepsis (< 1 month) Serious lung disease, including pneumonia (< 1 month) Abnormal pulmonary function Acute myocardial infarction Congestive heart failure (< 1 month) History of inflammatory bowel disease Medical patient at bed rest Age 61-74 Arthroscopic surgery Major open surgery (> 45 min) Laparoscopic surgery (> 45 min) Malignancy Confined to bed (> 72 hours) Immobilizing plaster cast Central venous access Age >= 75 History of VTE Family history of VTE Factor V Leiden Prothrombin [id number] Lupus anticoagulant Anticardiolipin antibodies Elevated serum homocysteine Heparin-induced thrombocytopenia Other congenital or acquired thrombophilia Stroke (< 1 month) Elective arthroplasty Hip, pelvis, or leg fracture Acute spinal cord injury (< 1 month) Prophylaxis Regimen Total Risk Factor Score Risk Level Prophylaxis Regimen 0-1 Low Early ambulation 2 Moderate Order ONE of the following: *Sequential Compression Device (SCD) *Heparin 5000 units SQ BID 3-4 Higher Order ONE of the following medications: *Heparin 5000 units SQ TID *Enoxaparin/Lovenox 40 mg SQ daily (WT < 150 kg, CrCl > 30 mL/min) *Enoxaparin/Lovenox 30 mg SQ daily (WT < 150 kg, CrCl > 10-29 mL/min) *Enoxaparin/Lovenox 30 mg SQ BID (WT < 150 kg, CrCl > 30 mL/min) AND/OR *Sequential Compression Device (SCD) 5 or more Highest Order ONE of the following medications: *Heparin 5000 units SQ TID (Preferred with Epidurals) *Enoxaparin/Lovenox 40 mg SQ daily (WT < 150 kg, CrCl > 30 mL/min) *Enoxaparin/Lovenox 30 mg SQ daily (WT < 150 kg, CrCl > 10-29 mL/min) *Enoxaparin/Lovenox 30 mg SQ BID (WT < 150 kg, CrCl > 30 mL/min) AND *Sequential Compression Device (SCD) Assessment and Plan Problem List: (1) COPD (chronic obstructive pulmonary disease) ICD Code: J44.9 - Chronic obstructive pulmonary disease, unspecified Status: Chronic (2) CHF (congestive heart failure) ICD Code: I50.9 - Heart failure, unspecified Status: Chronic (3) A-fib ICD Code: I48.91 - Unspecified atrial fibrillation Status: Chronic (4) Renal insufficiency ICD Code: N28.9 - Disorder of kidney and ureter, unspecified Status: Acute (5) Cellulitis, leg ICD Code: L03.119 - Cellulitis of unspecified part of limb Status: Acute (6) Anemia ICD Code: D64.9 - Anemia, unspecified Status: Acute Assessment and Plan A/P: 1. COPD: Chronic Respiratory Failure w/ Acute Exacerbation, Moderate. + wheezing, s/p DuoNeb, Solu-Medrol, continue DuoNeb, resume home MDI, Mucinex. CXR w/ no acute findings, images reviewed by me. 2. CHF: Acute on Chronic. Diastolic. Echo 02/03/17 w/ EF 65%, BNP 308, + lower extremity edema, s/p Lasix in ER. Continue w/ diuresis, caution w/ renal insufficiency, monitor I/O. 3. A-fib: Chronic. On Xarelto. Resume home medications. 4. Renal Insufficiency: Acute on Chronic. Creatinine 2.50, previously 2.08, monitor renal function closely especially in light of diuresis, repeat labs in am. 5. LE Cellulitis: RLE erythema/edema, foul-smelling, s/p Clinda in ER, will continue w/ IV Abx. 6. Anemia: Acute on Chronic. Hgb 7.8, previously 8.8 on 07/28/17. Will monitor, repeat Hgb/Hct in am, transfuse as needed. 7. DVT Prophylaxis: Xarelto 8. Social work for d/c planning as needed. 9. Case discussed w/ ER physician at length. Problem Qualifiers (1) Cellulitis, leg: Qualified Codes: L03.115 - Cellulitis of right lower limb Cassia Cash MD Aug 16, 2017 20:16
[2017-08-16] MEDS ORDERED: LORazepam 2 MG/ML VIAL IV PUSH PRN (20:45)
[2017-08-16] MEDS ORDERED: methylPREDNISolone SOD SUCC 125 MG/2 ML VIAL IV PUSH ONE (21:00)
[2017-08-16] MEDS: BUDESONIDE-FORMOTEROL 160/4.5 MCG INHALER INH SCH (21:00)
[2017-08-16 21:12] VITALS: BP 114/66; PULSE 97; RESP 18; O2SAT 96
[2017-08-16 21:35] VITALS: BP 134/68; PULSE 101; RESP 18; TEMP 98.4; O2SAT 97
[2017-08-16] MEDS: ATORVASTATIN 40 MG TAB PO SCH (22:19)
[2017-08-16] MEDS: PANTOPRAZOLE SOD 40 MG DELAYED RELEASE TAB PO SCH (22:19)
[2017-08-16] MEDS: METOPROLOL TARTRATE 100 MG TAB PO SCH (22:19)
[2017-08-16] MEDS: DOCUSATE SODIUM 50 MG/SENNA 8.6 MG TAB PO SCH (22:19)
[2017-08-16] MEDS: SODIUM CHLORIDE 0.9% FLUSH 10 ML FLUSH IV FLUSH SCH (22:19)
[2017-08-16 22:20] VITALS: PULSE 107
[2017-08-17] VITALS (10 sets, daily range): BP systolic 97–130; BP diastolic 56–75; PULSE 71–97; RESP 18–20; TEMP 97.6–98.7; O2SAT 92–98
[2017-08-17] MEDS ORDERED: methylPREDNISolone SOD SUCC 40 MG/1 ML VIAL IV PUSH SCH (03:00)
[2017-08-17] MEDS: SODIUM CHLORIDE 0.9% FLUSH 10 ML FLUSH IV FLUSH PRN ×2 (03:55→06:00)
[2017-08-17] MEDS: METOPROLOL TARTRATE 100 MG TAB PO SCH ×3 (06:00→23:04)
[2017-08-17] MEDS: CLINDAMYCIN 600 MG/NS PREMIX 50 ML IV SCH ×2 (06:00→06:23)
[2017-08-17 06:16] LABS: AUTOMATED NEUTROPHIL # 9.9 TH/MM3 (1.8-7.7); BASOPHIL % 0.2 % (0.0-2.0); EOSINOPHIL % 0.1 % (0.0-4.0); HEMATOCRIT 25.2 % (39.0-51.0); HEMO FLAGS DIFF FINAL; LYMPH % 2.6 % (9.0-44.0); LYMPHOCYTE # 0.3 TH/MM3 (1.0-4.8); MEAN CORPUSCULAR HEMOGLOBIN 28.8 PG (27.0-34.0); MEAN CORPUSCULAR HGB CONC 31.7 % (32.0-36.0); MONO % 1.7 % (0.0-8.0); NEUT % 95.4 % (16.0-70.0); PLATELET COUNT 234 TH/MM3 (150-450); RED BLOOD COUNT 2.77 MIL/MM3 (4.50-5.90); RED CELL DISTRIBUTION WIDTH 20.2 % (11.6-17.2); WHITE BLOOD COUNT 10.4 TH/MM3 (4.0-11.0)
[2017-08-17 06:48] LABS: ANION GAP 8 MEQ/L (5-15); AST (GOT) 19 U/L (15-37); BICARBONATE 26.6 MEQ/L (21.0-32.0); BLOOD UREA NITROGEN 36 MG/DL (7-18); CHLORIDE 98 MEQ/L (98-107); GLOMERULAR FILTRATION RATE 30 ML/MIN (>89); POTASSIUM 4.5 MEQ/L (3.5-5.1); SODIUM (NA) 133 MEQ/L (136-145)
[2017-08-17 06:49] LABS: ALT (GPT) 25 U/L (12-78)
[2017-08-17 06:52] LABS: ALKALINE PHOSPHATASE 212 U/L (45-117); TOTAL BILIRUBIN ADULT 1.1 MG/DL (0.2-1.0)
[2017-08-17] MEDS: RESP: ALBUTEROL 2.5 MG/IPRATROPIUM 0.5 MG NEB (SCH) NEB ×4 (08:21→20:33)
[2017-08-17] MEDS: SODIUM CHLORIDE 0.9% FLUSH 10 ML FLUSH IV FLUSH SCH ×2 (09:00→23:03)
[2017-08-17] MEDS: DIGOXIN 0.125 MG TAB PO SCH (09:00)
[2017-08-17] MEDS: PANTOPRAZOLE SOD 40 MG DELAYED RELEASE TAB PO SCH ×2 (09:44→23:04)
[2017-08-17] MEDS: RIVAROXABAN 15 MG TAB PO SCH (09:45)
[2017-08-17] MEDS: DOCUSATE SODIUM 50 MG/SENNA 8.6 MG TAB PO SCH ×2 (09:45→23:04)
[2017-08-17] MEDS: BUDESONIDE-FORMOTEROL 160/4.5 MCG INHALER INH SCH ×2 (09:57→23:03)
[2017-08-17] MEDS: DILTIAZEM-CD 180 MG CAP ER PO SCH (09:58)
[2017-08-17] MEDS ORDERED: Vancomycin Consult Pharmacy 1 EA OTHER SCH (12:00)
[2017-08-17] MEDS ORDERED: VANCOMYCIN INJ 1,000 MG in SODIUM CHLOR 0.9% 250 ML INJ 250 ML IV ONE (12:00)
[2017-08-17] MEDS ORDERED: DEXTROSE 50% IN WATER 50 ML VIAL(D50) IV PUSH PRN (12:15)
[2017-08-17] MEDS ORDERED: GLUCAGON 1 MG/ML VIAL OTHER PRN (12:15)
[2017-08-17] MEDS: FUROSEMIDE 40 MG/4 ML VIAL IV PUSH SCH ×2 (12:28→18:21)
--- NOTE | 2017-08-17 12:33 | HHI.PR ---
Subjective Remarks This is a 61-year-old male with a PMH of HTN, A. fib on Xarelto, CHF (Echo w/ EF 65%), COPD and CAD who presented to the ER w/ c/o SOB and bilateral lower extremity swelling x1 wk. States symptoms have been getting progressively worse, also notes some redness to right leg. Denies fever, chills , cough or chest pain. On arrival, BP 120/56, HR 104, O2 sat 100% on 2L NC, Afebrile. Noted to have some wheezing on exam. Hemoglobin 7.8, previously 8.8 on 07/28/17. Creatinine 2.50, previously 2.08 on 07/29/17. BNP 308. Troponin 0.03. Lactic Acid normal. INR 1.5. CXR with no acute findings. S/p Clinda in ER. Follow-up on patient with CHF exacerbation, AECOPD, RLE cellulitis. Patient seen and examined. Patient reports his breathing has improved some. Denies any fever or chills. Denies any chest pain. Patient states his legs have been swollen for the past 4-5 years. States he takes Lasix at home but doesn't seem to be working very well. He has a history of MRSA infection in the right leg in January of this year. He denies any nausea, vomiting or abdominal pain. WILL SWITCH TO PO PREDNISONE AND SWITCH TO VANCOMYCIN AWAIT SENSITIVITIES DW RN AND PT Objective Vitals Vital Signs Date Time Temp Pulse Resp B/P (MAP) Pulse Ox O2 Delivery O2 Flow Rate FiO2 08/17/17 11:26 97.6 83 20 113/68 (83) 98 08/17/17 09:18 98.4 82 18 112/69 (83) 92 08/17/17 04:39 97.9 83 18 130/75 (93) 97 08/17/17 04:09 89 08/17/17 00:37 98.7 78 18 120/69 (86) 97 08/17/17 00:05 97 08/16/17 22:20 107 08/16/17 21:35 98.4 101 18 134/68 (90) 97 08/16/17 21:12 97 18 114/66 (82) 96 Nasal Cannula 2.00 08/16/17 18:27 100 Nasal Cannula 2.00 08/16/17 18:27 100 Nasal Cannula 2.00 08/16/17 18:21 104 24 129/71 (90) 98 Nasal Cannula 2.00 08/16/17 18:21 97 Nasal Cannula 2.00 08/16/17 17:16 98.0 104 16 120/56 (77) 100 I/O 08/16/17 08/16/17 08/16/17 08/17/17 08/17/17 08/17/17 07:00 15:00 23:00 07:00 15:00 23:00 Intake Total 100 ml Balance 100 ml Intake IV Total 100 ml Result Diagram: 08/17/17 0548 08/17/17 0548 Other Results Laboratory Tests Test 08/16/17 18:40 08/16/17 18:45 08/17/17 05:48 White Blood Count 10.1 TH/MM3 10.4 TH/MM3 Red Blood Count 2.80 MIL/MM3 2.77 MIL/MM3 Hemoglobin 7.8 GM/DL 8.0 GM/DL Hematocrit 24.9 % 25.2 % Mean Corpuscular Volume 88.7 FL 91.0 FL Mean Corpuscular Hemoglobin 27.8 PG 28.8 PG Mean Corpuscular Hemoglobin Concent 31.3 % 31.7 % Red Cell Distribution Width 19.8 % 20.2 % Platelet Count 238 TH/MM3 234 TH/MM3 Mean Platelet Volume 7.8 FL 8.0 FL Neutrophils (%) (Auto) 86.9 % 95.4 % Lymphocytes (%) (Auto) 7.0 % 2.6 % Monocytes (%) (Auto) 4.6 % 1.7 % Eosinophils (%) (Auto) 0.8 % 0.1 % Basophils (%) (Auto) 0.7 % 0.2 % Neutrophils # (Auto) 8.8 TH/MM3 9.9 TH/MM3 Lymphocytes # (Auto) 0.7 TH/MM3 0.3 TH/MM3 Monocytes # (Auto) 0.5 TH/MM3 0.2 TH/MM3 Eosinophils # (Auto) 0.1 TH/MM3 0.0 TH/MM3 Basophils # (Auto) 0.1 TH/MM3 0.0 TH/MM3 CBC Comment DIFF FINAL DIFF FINAL Differential Comment Prothrombin Time 14.9 SEC Prothromb Time International Ratio 1.5 RATIO Activated Partial Thromboplast Time 28.2 SEC Blood Urea Nitrogen 34 MG/DL 36 MG/DL Creatinine 2.50 MG/DL 2.25 MG/DL Random Glucose 119 MG/DL 199 MG/DL Total Protein 6.5 GM/DL 6.5 GM/DL Albumin 2.8 GM/DL 2.7 GM/DL Calcium Level 8.4 MG/DL 8.2 MG/DL Magnesium Level 1.8 MG/DL Alkaline Phosphatase 213 U/L 212 U/L Aspartate Amino Transf (AST/SGOT) 21 U/L 19 U/L Alanine Aminotransferase (ALT/SGPT) 27 U/L 25 U/L Total Bilirubin 1.3 MG/DL 1.1 MG/DL Sodium Level 132 MEQ/L 133 MEQ/L Potassium Level 3.7 MEQ/L 4.5 MEQ/L Chloride Level 95 MEQ/L 98 MEQ/L Carbon Dioxide Level 30.1 MEQ/L 26.6 MEQ/L Anion Gap 7 MEQ/L 8 MEQ/L Estimat Glomerular Filtration Rate 26 ML/MIN 30 ML/MIN Total Creatine Kinase 46 U/L Troponin I 0.03 NG/ML B-Type Natriuretic Peptide 308 PG/ML Lactic Acid Level 1.5 mmol/L Digoxin Level 2.5 NG/ML Imaging Last Impressions Chest X-Ray 08/16/17 9343 Signed Impressions: Service Date/Time: Wednesday, August 16, 2017 18:41 - CONCLUSION: 1. No acute abnormality or significant interval change. Ollie Moran MD Objective Remarks GENERAL: Well-nourished, well-developed obese patient in NAD. Awake and alert. SKIN: Warm and dry. HEAD: Normocephalic. Atraumatic. EYES: EOMI. No scleral icterus. No injection or drainage. Extraocular muscles intact PERRLA ENT: No nasal bleeding or discharge. Mucous membranes pink and moist. Tongue is midline NECK: Trachea midline. Supple CARDIOVASCULAR: IRRegular rate and rhythm. S1, S2 noted. No murmur appreciated. RESPIRATORY: Nonlabored. Diminished but clear to auscultation. Breath sounds equal bilaterally. GASTROINTESTINAL: Abdomen soft, non-tender, nondistended. Normoactive bowel sounds x4. MUSCULOSKELETAL: No obvious deformities. Extremities without clubbing or cyanosis. 4+ brawny edema BLE with active weeping yellowish discharge from RLE. NEUROLOGICAL: Awake and alert. Able to move all extremities. Nonfocal. Normal speech. PSYCHIATRIC: Appropriate mood and affect; insight and judgment normal. Procedures NONE Medications and IVs Current Medications Medications (Trade) Dose Ordered Sig/Delilah Route Start Time Stop Time Status Last Admin Clindamycin/ Sodium Chloride 50 ml @ 100 mls/hr Q8H IV 08/17/17 06:00 08/17/17 06:23 (SoluMEDROL INJ) 40 mg Q6H IV PUSH 08/17/17 03:00 08/17/17 03:55 (Duoneb Neb) 1 ampule Q4HR WHILE AWAKE NEB NEB 08/17/17 08:00 08/17/17 11:50 (Duoneb Neb) 1 ampule Q2HR NEB PRN NEB 08/16/17 20:15 (Lasix Inj) 40 mg BID@,18 IV PUSH 08/17/17 09:00 (NS Flush) 2 ml UNSCH PRN IV FLUSH 08/16/17 20:15 08/17/17 06:00 (NS Flush) 2 ml BID IV FLUSH 08/16/17 21:00 08/16/17 22:19 (Zofran Inj) 4 mg Q6H PRN IVP 08/16/17 20:15 (Tylenol) 650 mg Q6H PRN PO 08/16/17 20:15 ([place] 5-325 Mg) 1 tab Q4H PRN PO 08/16/17 20:15 (Morphine Inj) 2 mg Q3H PRN IV PUSH 08/16/17 20:15 (Coco-Colace) 1 tab BID PO 08/16/17 21:00 08/17/17 09:45 (Milk Of Magnesia Liq) 30 ml Q12H PRN PO 08/16/17 20:15 (Senokot) 17.2 mg Q12H PRN PO 08/16/17 20:15 (Dulcolax Supp) 10 mg DAILY PRN RECTAL 08/16/17 20:15 (Lactulose Liq) 30 ml DAILY PRN PO 08/16/17 20:15 (Lipitor) 40 mg HS PO 08/16/17 21:00 08/16/17 22:19 (Symbicort 160-4.5 Mcg Inh) 2 puff Q12HR INH 08/16/17 21:00 08/17/17 09:57 (Lanoxin) 0.125 mg DAILY PO 08/17/17 09:00 (Cardizem Cd) 360 mg DAILY PO 08/17/17 09:00 08/17/17 09:58 (Lopressor) 100 mg Q8H PO 08/16/17 21:00 08/17/17 06:00 (Protonix) 40 mg Q12HR PO 08/16/17 21:00 08/17/17 09:44 (Xarelto) 15 mg DAILY PO 08/17/17 09:00 08/17/17 09:45 (Ativan Inj) 1 mg Q2H PRN IV PUSH 08/16/17 20:45 A/P Problem List: (1) COPD (chronic obstructive pulmonary disease) ICD Code: J44.9 - Chronic obstructive pulmonary disease, unspecified Status: Chronic (2) CHF (congestive heart failure) ICD Code: I50.9 - Heart failure, unspecified Status: Chronic (3) A-fib ICD Code: I48.91 - Unspecified atrial fibrillation Status: Chronic (4) Renal insufficiency ICD Code: N28.9 - Disorder of kidney and ureter, unspecified Status: Acute (5) Cellulitis, leg ICD Code: L03.119 - Cellulitis of unspecified part of limb Status: Acute (6) Anemia ICD Code: D64.9 - Anemia, unspecified Status: Acute Assessment and Plan 61-year-old male with past medical history significant for atrial fibrillation on Xarelto, COPD, CHF, chronic renal insufficiency admitted with right lower extremity cellulitis, bilateral lower extremity edema and increased shortness of breath. COPD, acute on chronic exacerbation - CXR personally reviewed showing no acute findings - Continue on scheduled DuoNeb - Symbicort 160/4.5 mcg 2 puffs BID - On IV methylprednisolone 40 mg every 6, begin taper, 40 mg by mouth twice a day - Continue supplemental oxygen as needed - Continue to monitor respiratory status, currently 98% on 2L NC CHF, acute on chronic, diastolic - Echocardiogram completed 02/03/17 with EF of 65% - BNP 308 - Continue with diuresis on IV Lasix. Monitor electrolytes - monitor I&Os - fluid/salt restricted diet CORIN on CKD, underlying nephrosclerosis - Creatinine 2.50/GFR 26 - baseline appears to be around 1.5-1.6 - Renal US - improving - Monitor closely while on IV Lasix - Avoid nephrotoxic agents Hyponatremia - mild - asymptomatic - monitor RLE cellulitis - Wound culture in the system 02/09/17 positive for MRSA, sensitive to Vancomycin - DC clindamycin. Begin Lactobacillus by mouth 3 times a day - Begin vancomycin. Pharmacy to dose. - Follow up on final wound culture results - consult wound care Atrial fibrillation, chronic - rate controlled - Continue on Diltiazem CD 360mg daily and Lopressor 100mg po q8h daily - digoxin level high at 2.5. Continue to hold home Digoxin 0.125mg daily - Continue on home dose of Xarelto Anemia, normocytic, chronic - Suspect secondary to anemia of chronic disease - stable - Continue to monitor CBC as indicated Hyperglycemia - No reported history of diabetes - Exacerbated by IV steroids - obtain hemoglobin A1c level - Accu-Cheks, insulin sliding scale Hx of alcohol use/abuse - [facility] protocol - Thiamine/folic acid/MVI daily GERD/gastritis - Continue pantoprazole DVT prophylaxis - Patients on Xarelto Discussed with patient, nursing staff and Dr. Carbajal Discharge Planning PT AND OT CM Attending Statement The exam, history, and the medical decision-making described in the above note were completed with the assistance of the mid-level provider. I reviewed and agree with the findings presented. I attest that I had a [id number] encounter with the patient on the same day, and personally performed and documented my assessment and findings in the medical record. Problem Qualifiers (1) Cellulitis, leg: Qualified Codes: L03.115 - Cellulitis of right lower limb Annalee Alarcon Aug 17, 2017 12:33 Murtaza Carbajal DO Aug 17, 2017 13:17
[2017-08-17] MEDS ORDERED: LORazepam 2 MG TAB PO PRN (12:45)
[2017-08-17] MEDS ORDERED: FLUMAZENIL 0.5 MG/5 ML VIAL IV PUSH PRN (12:45)
[2017-08-17] MEDS ORDERED: LORazepam 2 MG/ML VIAL IV PUSH PRN ×4 (12:45)
[2017-08-17] MEDS ORDERED: MULTIVITAMIN TAB PO ONE (13:15)
[2017-08-17] MEDS ORDERED: THIAMINE HCL 100 MG TAB PO ONE (13:15)
[2017-08-17] MEDS ORDERED: FOLIC ACID 1 MG TAB PO ONE (13:15)
[2017-08-17] MEDS: LACTOBACILLUS ACIDOPHILUS TAB PO SCH ×2 (13:46→18:22)
[2017-08-17] MEDS: VANCOMYCIN INJ 2,000 MG in SODIUM CHLORID 0.9% 500 ML INJ 500 ML IV SCH ×2 (13:54→14:30)
[2017-08-17] MEDS: INSULIN ASPART SUPPLEMENTAL SCALE SQ SCH ×2 (18:22→23:25)
--- NOTE | 2017-08-17 18:32 | EKG ---
Date Performed: 08/16/2017 Time Performed: 18:18:18 PTAGE: 61 years EKG: SINUS TACHYCARDIA WITH OCCASIONAL SUPRAVENTRICULAR PREMATURE COMPLEXES POSSIBLE RIGHT VENTR ICULAR CONDUCTION DELAY ST DEVIATION AND MODERATE T-WAVE ABNORMALITY, CONSIDER ANTEROLATERAL ISCHEMIA ABNORMAL ECG Compared to PREVIOUS TRACING , heart rate has increased significantly and anterior ischemic changes a re slightly more prominent. PREVIOUS TRACING 07/26/2017 23.42 DOCTOR: Johnny Caputo Interpretating Date/Time 08/17/2017 18:31:30
[2017-08-17 20:24] LABS: BLOOD, URINE NEG (NEG); COMMENT (UR) CULT NOT INDICATED; CULTURE IF INDICATED CULT NOT INDICATED; GLUCOSE,URINE NEG (NEG); HYALINE CAST, URINE 13 /lpf (RARE); KETONE, URINE NEG (NEG); NITRITE,URINE NEG (NEG); PH, URINE 5.5 (5.0-8.5); SQUAMOUS EPITHELIAL CELL URINE <1 /hpf (0-5); URINE COLOR YELLOW (YELLW/STRAW)
[2017-08-17] MEDS: predniSONE 20 MG TAB PO SCH (23:03)
[2017-08-17] MEDS: ATORVASTATIN 40 MG TAB PO SCH (23:04)
[2017-08-18] VITALS (15 sets, daily range): BP systolic 95–120; BP diastolic 56–70; PULSE 59–73; RESP 18–20; TEMP 97.4–97.8; O2SAT 93–98
[2017-08-18] MEDS: METOPROLOL TARTRATE 100 MG TAB PO SCH ×4 (06:08→21:49)
[2017-08-18 06:54] LABS: AUTOMATED NEUTROPHIL # 10.6 TH/MM3 (1.8-7.7); BASOPHIL % 0.1 % (0.0-2.0); HEMATOCRIT 25.1 % (39.0-51.0); HEMO FLAGS DIFF FINAL; LYMPH % 3.2 % (9.0-44.0); LYMPHOCYTE # 0.4 TH/MM3 (1.0-4.8); MEAN CELL VOLUME 90.2 FL (80.0-100.0); MEAN CORPUSCULAR HEMOGLOBIN 27.8 PG (27.0-34.0); MEAN CORPUSCULAR HGB CONC 30.8 % (32.0-36.0); MONO % 4.3 % (0.0-8.0); NEUT % 92.4 % (16.0-70.0); PLATELET COUNT 271 TH/MM3 (150-450); RED BLOOD COUNT 2.78 MIL/MM3 (4.50-5.90); RED CELL DISTRIBUTION WIDTH 20.8 % (11.6-17.2); WHITE BLOOD COUNT 11.5 TH/MM3 (4.0-11.0)
[2017-08-18 07:23] LABS: ANION GAP 8 MEQ/L (5-15); AST (GOT) 15 U/L (15-37); BICARBONATE 28.9 MEQ/L (21.0-32.0); BLOOD UREA NITROGEN 46 MG/DL (7-18); CHLORIDE 99 MEQ/L (98-107); GLOMERULAR FILTRATION RATE 25 ML/MIN (>89); MAGNESIUM 2.2 MG/DL (1.5-2.5); POTASSIUM 4.3 MEQ/L (3.5-5.1); SODIUM (NA) 136 MEQ/L (136-145)
[2017-08-18] MEDS: RESP: ALBUTEROL 2.5 MG/IPRATROPIUM 0.5 MG NEB (SCH) NEB ×4 (07:28→19:24)
[2017-08-18 07:32] LABS: ALKALINE PHOSPHATASE 189 U/L (45-117); ALT (GPT) 28 U/L (12-78); FREE T4 0.99 NG/DL (0.76-1.46); TOTAL BILIRUBIN ADULT 0.6 MG/DL (0.2-1.0)
[2017-08-18] MEDS: INSULIN ASPART SUPPLEMENTAL SCALE SQ SCH ×4 (08:00→23:09)
[2017-08-18] MEDS: predniSONE 20 MG TAB PO SCH ×2 (09:35→21:49)
[2017-08-18] MEDS: DILTIAZEM-CD 180 MG CAP ER PO SCH (09:35)
[2017-08-18] MEDS: SODIUM CHLORIDE 0.9% FLUSH 10 ML FLUSH IV FLUSH SCH ×2 (09:35→21:50)
[2017-08-18] MEDS: DOCUSATE SODIUM 50 MG/SENNA 8.6 MG TAB PO SCH ×2 (09:36→21:50)
[2017-08-18] MEDS: MULTIVITAMIN TAB PO SCH (09:36)
[2017-08-18] MEDS: FOLIC ACID 1 MG TAB PO SCH (09:36)
[2017-08-18] MEDS: THIAMINE HCL 100 MG TAB PO SCH (09:36)
[2017-08-18] MEDS: PANTOPRAZOLE SOD 40 MG DELAYED RELEASE TAB PO SCH ×2 (09:37→21:49)
[2017-08-18] MEDS: LACTOBACILLUS ACIDOPHILUS TAB PO SCH ×3 (09:37→18:13)
[2017-08-18] MEDS: RIVAROXABAN 15 MG TAB PO SCH (09:37)
[2017-08-18] MEDS: FUROSEMIDE 40 MG/4 ML VIAL IV PUSH SCH ×2 (09:37→18:13)
[2017-08-18] MEDS: BUDESONIDE-FORMOTEROL 160/4.5 MCG INHALER INH SCH ×2 (09:38→21:50)
[2017-08-18 14:31] LABS: HEMOGLOBIN A1a 1.2 %; HEMOGLOBIN A1b 1.7 %; HEMOGLOBIN Ao 82.2 %; HEMOGLOBIN LA1C 2.9 %; HEMOGLOBIN P3 6.8 %
[2017-08-18] MEDS: LORazepam 1 MG TAB PO PRN (14:55)
--- NOTE | 2017-08-18 16:53 | HHI.PR ---
Subjective Remarks This is a 61-year-old male with a PMH of HTN, A. fib on Xarelto, CHF (Echo w/ EF 65%), COPD and CAD who presented to the ER w/ c/o SOB and bilateral lower extremity swelling x1 wk. States symptoms have been getting progressively worse, also notes some redness to right leg. Denies fever, chills , cough or chest pain. On arrival, BP 120/56, HR 104, O2 sat 100% on 2L NC, Afebrile. Noted to have some wheezing on exam. Hemoglobin 7.8, previously 8.8 on 07/28/17. Creatinine 2.50, previously 2.08 on 07/29/17. BNP 308. Troponin 0.03. Lactic Acid normal. INR 1.5. CXR with no acute findings. S/p Clinda in ER. Follow-up on patient with CHF exacerbation, AECOPD, RLE cellulitis. Patient seen and examined. Patient reports his breathing has improved some. Denies any fever or chills. Denies any chest pain. Patient states his legs have been swollen for the past 4-5 years. States he takes Lasix at home but doesn't seem to be working very well. He has a history of MRSA infection in the right leg in January of this year. He denies any nausea, vomiting or abdominal pain. WILL SWITCH TO PO PREDNISONE AND SWITCH TO VANCOMYCIN AWAIT SENSITIVITIES [facility] RN AND PT 08-18 WILL MAKE FULL ADMIT CONSULT ID DUE TO LE MRSA [facility] RN AND PT Objective Vitals Vital Signs Date Time Temp Pulse Resp B/P (MAP) Pulse Ox O2 Delivery O2 Flow Rate FiO2 08/18/17 15:39 97.8 65 20 104/58 (73) 94 08/18/17 15:20 59 08/18/17 13:10 102/63 (76) 08/18/17 12:27 97.8 65 18 95/56 (69) 94 08/18/17 11:30 59 08/18/17 08:45 60 08/18/17 07:40 97.7 61 18 108/62 (77) 98 08/18/17 07:28 96 Nasal Cannula 2.00 08/18/17 06:07 67 120/70 (87) 08/18/17 04:35 73 08/18/17 01:49 97.4 73 18 95/65 (75) 93 08/17/17 20:35 94 Nasal Cannula 2.00 08/17/17 20:16 97.8 71 18 97/67 (77) 92 I/O 08/17/17 08/17/17 08/17/17 08/18/17 08/18/17 08/18/17 07:00 15:00 23:00 07:00 15:00 23:00 Intake Total 100 ml 200 ml Output Total 700 ml Balance 100 ml -500 ml Intake Oral 200 ml IV Total 100 ml Output Urine Total 700 ml Result Diagram: 08/18/17 0545 08/18/17 0545 Other Results Laboratory Tests Test 08/16/17 18:40 08/16/17 18:45 08/17/17 05:48 08/17/17 19:30 White Blood Count 10.1 TH/MM3 10.4 TH/MM3 Red Blood Count 2.80 MIL/MM3 2.77 MIL/MM3 Hemoglobin 7.8 GM/DL 8.0 GM/DL Hematocrit 24.9 % 25.2 % Mean Corpuscular Volume 88.7 FL 91.0 FL Mean Corpuscular Hemoglobin 27.8 PG 28.8 PG Mean Corpuscular Hemoglobin Concent 31.3 % 31.7 % Red Cell Distribution Width 19.8 % 20.2 % Platelet Count 238 TH/MM3 234 TH/MM3 Mean Platelet Volume 7.8 FL 8.0 FL Neutrophils (%) (Auto) 86.9 % 95.4 % Lymphocytes (%) (Auto) 7.0 % 2.6 % Monocytes (%) (Auto) 4.6 % 1.7 % Eosinophils (%) (Auto) 0.8 % 0.1 % Basophils (%) (Auto) 0.7 % 0.2 % Neutrophils # (Auto) 8.8 TH/MM3 9.9 TH/MM3 Lymphocytes # (Auto) 0.7 TH/MM3 0.3 TH/MM3 Monocytes # (Auto) 0.5 TH/MM3 0.2 TH/MM3 Eosinophils # (Auto) 0.1 TH/MM3 0.0 TH/MM3 Basophils # (Auto) 0.1 TH/MM3 0.0 TH/MM3 CBC Comment DIFF FINAL DIFF FINAL Differential Comment Prothrombin Time 14.9 SEC Prothromb Time International Ratio 1.5 RATIO Activated Partial Thromboplast Time 28.2 SEC Blood Urea Nitrogen 34 MG/DL 36 MG/DL Creatinine 2.50 MG/DL 2.25 MG/DL Random Glucose 119 MG/DL 199 MG/DL Total Protein 6.5 GM/DL 6.5 GM/DL Albumin 2.8 GM/DL 2.7 GM/DL Calcium Level 8.4 MG/DL 8.2 MG/DL Magnesium Level 1.8 MG/DL Alkaline Phosphatase 213 U/L 212 U/L Aspartate Amino Transf (AST/SGOT) 21 U/L 19 U/L Alanine Aminotransferase (ALT/SGPT) 27 U/L 25 U/L Total Bilirubin 1.3 MG/DL 1.1 MG/DL Sodium Level 132 MEQ/L 133 MEQ/L Potassium Level 3.7 MEQ/L 4.5 MEQ/L Chloride Level 95 MEQ/L 98 MEQ/L Carbon Dioxide Level 30.1 MEQ/L 26.6 MEQ/L Anion Gap 7 MEQ/L 8 MEQ/L Estimat Glomerular Filtration Rate 26 ML/MIN 30 ML/MIN Total Creatine Kinase 46 U/L Troponin I 0.03 NG/ML B-Type Natriuretic Peptide 308 PG/ML Lactic Acid Level 1.5 mmol/L Hemoglobin A1c 5.5 % Digoxin Level 2.5 NG/ML Urine Color YELLOW Urine Turbidity CLEAR Urine pH 5.5 Urine Specific [place] 1.016 Urine Protein NEG mg/dL Urine Glucose (UA) NEG mg/dL Urine Ketones NEG mg/dL Urine Occult Blood NEG Urine Nitrite NEG Urine Bilirubin NEG Urine Urobilinogen 4.0 MG/DL Urine Leukocyte Esterase NEG Urine RBC 1 /hpf Urine WBC 1 /hpf Urine Squamous Epithelial Cells <1 /hpf Urine Hyaline Casts 13 /lpf Microscopic Urinalysis Comment CULT NOT INDICATED Test 08/18/17 05:45 White Blood Count 11.5 TH/MM3 Red Blood Count 2.78 MIL/MM3 Hemoglobin 7.7 GM/DL Hematocrit 25.1 % Mean Corpuscular Volume 90.2 FL Mean Corpuscular Hemoglobin 27.8 PG Mean Corpuscular Hemoglobin Concent 30.8 % Red Cell Distribution Width 20.8 % Platelet Count 271 TH/MM3 Mean Platelet Volume 8.1 FL Neutrophils (%) (Auto) 92.4 % Lymphocytes (%) (Auto) 3.2 % Monocytes (%) (Auto) 4.3 % Eosinophils (%) (Auto) 0.0 % Basophils (%) (Auto) 0.1 % Neutrophils # (Auto) 10.6 TH/MM3 Lymphocytes # (Auto) 0.4 TH/MM3 Monocytes # (Auto) 0.5 TH/MM3 Eosinophils # (Auto) 0.0 TH/MM3 Basophils # (Auto) 0.0 TH/MM3 CBC Comment DIFF FINAL Differential Comment Blood Urea Nitrogen 46 MG/DL Creatinine 2.57 MG/DL Random Glucose 196 MG/DL Total Protein 6.5 GM/DL Albumin 2.8 GM/DL Calcium Level 8.4 MG/DL Phosphorus Level 4.3 MG/DL Magnesium Level 2.2 MG/DL Alkaline Phosphatase 189 U/L Aspartate Amino Transf (AST/SGOT) 15 U/L Alanine Aminotransferase (ALT/SGPT) 28 U/L Total Bilirubin 0.6 MG/DL Sodium Level 136 MEQ/L Potassium Level 4.3 MEQ/L Chloride Level 99 MEQ/L Carbon Dioxide Level 28.9 MEQ/L Anion Gap 8 MEQ/L Estimat Glomerular Filtration Rate 25 ML/MIN Hemoglobin A1c 5.6 % Free Thyroxine 0.99 NG/DL Thyroid Stimulating Hormone 3rd Gen 1.230 uIU/ML Digoxin Level 2.0 NG/ML Imaging Last Impressions Chest X-Ray 08/16/17 1973 Signed Impressions: Service Date/Time: Wednesday, August 16, 2017 18:41 - CONCLUSION: 1. No acute abnormality or significant interval change. Ollie Moran MD Objective Remarks GENERAL: Well-nourished, well-developed obese patient in NAD. Awake and alert. SKIN: Warm and dry. HEAD: Normocephalic. Atraumatic. EYES: EOMI. No scleral icterus. No injection or drainage. Extraocular muscles intact PERRLA ENT: No nasal bleeding or discharge. Mucous membranes pink and moist. Tongue is midline NECK: Trachea midline. Supple CARDIOVASCULAR: IRRegular rate and rhythm. S1, S2 noted. No murmur appreciated. RESPIRATORY: Nonlabored. Diminished but clear to auscultation. Breath sounds equal bilaterally. GASTROINTESTINAL: Abdomen soft, non-tender, nondistended. Normoactive bowel sounds x4. MUSCULOSKELETAL: No obvious deformities. Extremities without clubbing or cyanosis. 4+ brawny edema BLE with active weeping yellowish discharge from RLE. NEUROLOGICAL: Awake and alert. Able to move all extremities. Nonfocal. Normal speech. PSYCHIATRIC: Appropriate mood and affect; insight and judgment normal. Procedures NONE Medications and IVs Current Medications Sodium Chloride (NS Flush) 2 ml UNSCH PRN IVF FLUSH AFTER USING IV ACCESS; Start 08/16/17 at 18:30; Stop 08/16/17 at 20:22; Status DC Furosemide (Lasix Inj) 40 mg ONCE ONCE IVP Last administered on 08/16/17 18: 38; Start 08/16/17 at 18:30; Stop 08/16/17 at 18:31; Status DC Albuterol/ Ipratropium (Duoneb Neb) 1 ampule ONCE ONCE INH Last administered on 08/16/17 18:30; Start 08/16/17 at 18:30; Stop 08/16/17 at 18:31; Status DC Clindamycin Phosphate 600 mg/ Sodium Chloride 104 ml @ 208 mls/hr ONCE ONCE IV Last administered on 08/16/17 23:52; Start 08/16/17 at 20:00; Stop at 20:29; Status DC Clindamycin/ Sodium Chloride 50 ml @ 100 mls/hr Q8H IV Last administered on 06:23; Start 08/17/17 at 06:00; Stop 08/17/17 at 11:52; Status DC Methylprednisolone Sodium Succinate (SoluMEDROL INJ) 125 mg ONCE ONCE IV PUSH Last administered on 08/16/17 22:19; Start 08/16/17 at 21:00; Stop 08/16/17 at 21:01; Status DC Methylprednisolone Sodium Succinate (SoluMEDROL INJ) 40 mg Q6H IV PUSH Last administered on 08/17/17 03:55; Start 08/17/17 at 03:00; Stop 08/17/17 at 12:05 ; Status DC Albuterol/ Ipratropium (Duoneb Neb) 1 ampule Q4HR WHILE AWAKE NEB NEB Last administered on 08/18/17 16:28; Start 08/17/17 at 08:00 Albuterol/ Ipratropium (Duoneb Neb) 1 ampule Q2HR NEB PRN NEB SOB/WHEEZING; Start 08/16/17 at 20:15 Furosemide (Lasix Inj) 40 mg BID@09,18 IV PUSH Last administered on 08/18/17 09:37; Start 08/17/17 at 09:00 Sodium Chloride (NS Flush) 2 ml UNSCH PRN IV FLUSH FLUSH AFTER USING IV ACCESS Last administered on 08/17/17 06:00; Start 08/16/17 at 20:15 Sodium Chloride (NS Flush) 2 ml BID IV FLUSH Last administered on 08/18/17 09: 35; Start 08/16/17 at 21:00 Ondansetron HCl (Zofran Inj) 4 mg Q6H PRN IVP NAUSEA OR VOMITING; Start at 20:15 Acetaminophen (Tylenol) 650 mg Q6H PRN PO FEVER/PAIN SCALE 1 TO 2; Start at 20:15 Acetaminophen/ Hydrocodone Bitart ([place] 5-325 Mg) 1 tab Q4H PRN PO PAIN SCALE 3 TO 5 Last administered on 08/17/17 14:28; Start 08/16/17 at 20:15 Morphine Sulfate (Morphine Inj) 2 mg Q3H PRN IV PUSH Pain 6-10; Start 08/16/17 at 20:15 Senna/Docusate Sodium (Coco-Colace) 1 tab BID PO Last administered on 09:36; Start 08/16/17 at 21:00 Magnesium Hydroxide (Milk Of Magnesia Liq) 30 ml Q12H PRN PO Mild constipation ; Start 08/16/17 at 20:15 Sennosides (Senokot) 17.2 mg Q12H PRN PO Moderate constipation; Start 08/16/17 at 20:15 Bisacodyl (Dulcolax Supp) 10 mg DAILY PRN RECTAL SEVERE CONSITIPATION; Start 08/16/17 at 20:15 Lactulose (Lactulose Liq) 30 ml DAILY PRN PO SEVERE CONSITIPATION; Start at 20:15 Atorvastatin Calcium (Lipitor) 40 mg HS PO Last administered on 08/17/17 23:04 ; Start 08/16/17 at 21:00 Budesonide/ Formoterol Fumarate (Symbicort 160-4.5 Mcg Inh) 2 puff Q12HR INH Last administered on 08/18/17 09:38; Start 08/16/17 at 21:00 Digoxin (Lanoxin) 0.125 mg DAILY PO ; Start 08/17/17 at 09:00; Status Future Hold Diltiazem HCl (Cardizem Cd) 360 mg DAILY PO Last administered on 08/18/17 09: 35; Start 08/17/17 at 09:00; Stop 08/18/17 at 13:16; Status DC Metoprolol Tartrate (Lopressor) 100 mg Q8H PO Last administered on 08/18/17 06 :08; Start 08/16/17 at 21:00 Pantoprazole Sodium (Protonix) 40 mg Q12HR PO Last administered on 08/18/17 09 :37; Start 08/16/17 at 21:00 Rivaroxaban (Xarelto) 15 mg DAILY PO Last administered on 08/18/17 09:37; Start 08/17/17 at 09:00 Lorazepam (Ativan Inj) 1 mg Q2H PRN IV PUSH WITHDRAWAL; Start 08/16/17 at 20:45 Pharmacy Profile Note 0 ml @ 0 mls/hr UNSCH OTHER ; Start 08/17/17 at 12:00 Vancomycin HCl 1000 mg/Sodium Chloride 250 ml @ 250 mls/hr ONCE ONCE IV ; Start 08/17/17 at 12:00; Stop 08/17/17 at 12:59; Status DC Lactobacillus Acidophilus (Lactinex) 1 tab TID PO Last administered on 13:08; Start 08/17/17 at 13:00 Prednisone (Deltasone) 40 mg BID PO Last administered on 08/18/17 09:35; Start 08/17/17 at 21:00 Dextrose (D50w (Vial) Inj) 50 ml UNSCH PRN IV PUSH HYPOGLYCEMIA-SEE COMMENTS; Start 08/17/17 at 12:15 Glucagon (Glucagon Inj) 1 mg UNSCH PRN OTHER HYPOGLYCEMIA-SEE COMMENTS; Start 08/17/17 at 12:15 Insulin Aspart (NovoLOG SUPPLEMENTAL SCALE) 1 ACHS SLIDING SCALE SQ Last administered on 08/18/17 13:08; Start 08/17/17 at 17:00 Flumazenil (Romazicon Inj) 0.2 mg Q1M PRN IV PUSH SEE LABEL COMMENTS; Start at 12:45 Lorazepam (Ativan) 1 mg Q4H PRN PO CIWA 8 - 10 Last administered on 08/18/17 14:55; Start 08/17/17 at 12:45 Lorazepam (Ativan Inj) 1 mg Q4H PRN IV PUSH CIWA 8 - 10; Start 08/17/17 at 12: 45 Lorazepam (Ativan) 2 mg Q2H PRN PO CIWA 11-14; Start 08/17/17 at 12:45 Lorazepam (Ativan Inj) 2 mg Q2H PRN IV PUSH CIWA 11-14; Start 08/17/17 at 12:45 Lorazepam (Ativan Inj) 2 mg Q1H PRN IV PUSH CIWA 15-20; Start 08/17/17 at 12:45 Lorazepam (Ativan Inj) 2 mg Q15M PRN IV PUSH CIWA > 20; Start 08/17/17 at 12:45 Thiamine HCl (Vitamin B1) 100 mg ONCE ONCE PO Last administered on 08/17/17 13:46; Start 08/17/17 at 13:15; Stop 08/17/17 at 13:17; Status DC Thiamine HCl (Vitamin B1) 100 mg DAILY PO Last administered on 08/18/17 09:36 ; Start 08/18/17 at 09:00 Folic Acid (Folate) 1 mg ONCE ONCE PO Last administered on 08/17/17 13:45; Start 08/17/17 at 13:15; Stop 08/17/17 at 13:16; Status DC Folic Acid (Folate) 1 mg DAILY PO Last administered on 08/18/17 09:36; Start 08/18/17 at 09:00 Multivitamins (Theragran) 1 tab DAILY PO Last administered on 08/18/17 09:36; Start 08/18/17 at 09:00 Multivitamins (Theragran) 1 tab ONCE ONCE PO Last administered on 08/17/17 13 :45; Start 08/17/17 at 13:15; Stop 08/17/17 at 13:16; Status DC Vancomycin HCl 2000 mg/Sodium Chloride 520 ml @ 250 mls/hr Q24H IV Last administered on 08/17/17 14:30; Start 08/17/17 at 15:00; Status Future Hold Miscellaneous Information SPECIFIC LAB TO BE ... ONCE ONCE .XX ; Start 08/20 at 14:45; Stop 08/20/17 at 14:46 Diltiazem HCl (Cardizem Cd) 240 mg DAILY PO ; Start 08/19/17 at 09:00 A/P Problem List: (1) COPD (chronic obstructive pulmonary disease) ICD Code: J44.9 - Chronic obstructive pulmonary disease, unspecified Status: Chronic (2) CHF (congestive heart failure) ICD Code: I50.9 - Heart failure, unspecified Status: Chronic (3) A-fib ICD Code: I48.91 - Unspecified atrial fibrillation Status: Chronic (4) Renal insufficiency ICD Code: N28.9 - Disorder of kidney and ureter, unspecified Status: Acute (5) Cellulitis, leg ICD Code: L03.119 - Cellulitis of unspecified part of limb Status: Acute (6) Anemia ICD Code: D64.9 - Anemia, unspecified Status: Acute Assessment and Plan 61-year-old male with past medical history significant for atrial fibrillation on Xarelto, COPD, CHF, chronic renal insufficiency admitted with right lower extremity cellulitis, bilateral lower extremity edema and increased shortness of breath. COPD, acute on chronic exacerbation - CXR personally reviewed showing no acute findings - Continue on scheduled DuoNeb - Symbicort 160/4.5 mcg 2 puffs BID - On IV methylprednisolone 40 mg every 6, begin taper, 40 mg by mouth twice a day - Continue supplemental oxygen as needed - Continue to monitor respiratory status, currently 98% on 2L NC CHF, acute on chronic, diastolic - Echocardiogram completed 02/03/17 with EF of 65% - BNP 308 - Continue with diuresis on IV Lasix. Monitor electrolytes - monitor I&Os - fluid/salt restricted diet CORIN on CKD, underlying nephrosclerosis - Creatinine 2.50/GFR 26 - baseline appears to be around 1.5-1.6 - Renal US - improving - Monitor closely while on IV Lasix - Avoid nephrotoxic agents Hyponatremia - mild - asymptomatic - monitor RLE cellulitis - Wound culture in the system 02/09/17 positive for MRSA, sensitive to Vancomycin - DC clindamycin. Begin Lactobacillus by mouth 3 times a day - Begin vancomycin. Pharmacy to dose. - Follow up on final wound culture results - consult wound care MRSA CONSULT ID Atrial fibrillation, chronic - rate controlled - Continue on Diltiazem CD 360mg daily and Lopressor 100mg po q8h daily - digoxin level high at 2.5. Continue to hold home Digoxin 0.125mg daily - Continue on home dose of Xarelto Anemia, normocytic, chronic - Suspect secondary to anemia of chronic disease - stable - Continue to monitor CBC as indicated Hyperglycemia - No reported history of diabetes - Exacerbated by IV steroids - obtain hemoglobin A1c level - Accu-Cheks, insulin sliding scale Hx of alcohol use/abuse - [facility] protocol - Thiamine/folic acid/MVI daily GERD/gastritis - Continue pantoprazole DVT prophylaxis - Patients on Xarelto DW RN AND PATIENT WILL MAKE FULL ADMIT Discharge Planning MAKE FULL ADMIT Problem Qualifiers (1) Cellulitis, leg: Qualified Codes: L03.115 - Cellulitis of right lower limb Murtaza Carbajal DO Aug 18, 2017 16:53
[2017-08-18] MEDS: ATORVASTATIN 40 MG TAB PO SCH (21:49)
[2017-08-19] VITALS (14 sets, daily range): BP systolic 97–131; BP diastolic 58–74; PULSE 55–93; RESP 20–24; TEMP 97.1–98.6; O2SAT 92–94
[2017-08-19] MEDS: METOPROLOL TARTRATE 100 MG TAB PO SCH ×3 (05:35→22:51)
[2017-08-19 06:24] LABS: AUTOMATED NEUTROPHIL # 10.3 TH/MM3 (1.8-7.7); BASOPHIL % 0.2 % (0.0-2.0); EOSINOPHIL % 0.1 % (0.0-4.0); HEMATOCRIT 24.8 % (39.0-51.0); HEMO FLAGS DIFF FINAL; LYMPHOCYTE # 0.5 TH/MM3 (1.0-4.8); MEAN CELL VOLUME 90.1 FL (80.0-100.0); MEAN CORPUSCULAR HEMOGLOBIN 28.7 PG (27.0-34.0); MEAN CORPUSCULAR HGB CONC 31.8 % (32.0-36.0); MONO % 4.8 % (0.0-8.0); NEUT % 90.9 % (16.0-70.0); PLATELET COUNT 278 TH/MM3 (150-450); RED BLOOD COUNT 2.75 MIL/MM3 (4.50-5.90); RED CELL DISTRIBUTION WIDTH 21.8 % (11.6-17.2); WHITE BLOOD COUNT 11.3 TH/MM3 (4.0-11.0)
[2017-08-19 06:47] LABS: ALKALINE PHOSPHATASE 206 U/L (45-117); ALT (GPT) 29 U/L (12-78); ANION GAP 6 MEQ/L (5-15); AST (GOT) 21 U/L (15-37); BICARBONATE 28.7 MEQ/L (21.0-32.0); CHLORIDE 99 MEQ/L (98-107); GLOMERULAR FILTRATION RATE 21 ML/MIN (>89); MAGNESIUM 2.2 MG/DL (1.5-2.5); POTASSIUM 4.9 MEQ/L (3.5-5.1); SODIUM (NA) 134 MEQ/L (136-145); TOTAL BILIRUBIN ADULT 0.5 MG/DL (0.2-1.0)
[2017-08-19 06:50] LABS: BLOOD UREA NITROGEN 62 MG/DL (7-18)
[2017-08-19] MEDS: RESP: ALBUTEROL 2.5 MG/IPRATROPIUM 0.5 MG NEB (SCH) NEB ×4 (07:14→21:35)
[2017-08-19] MEDS: INSULIN ASPART SUPPLEMENTAL SCALE SQ SCH ×4 (08:00→23:11)
[2017-08-19] MEDS: BUDESONIDE-FORMOTEROL 160/4.5 MCG INHALER INH SCH ×2 (09:02→22:51)
[2017-08-19] MEDS: SODIUM CHLORIDE 0.9% FLUSH 10 ML FLUSH IV FLUSH SCH ×2 (09:02→22:51)
[2017-08-19] MEDS: THIAMINE HCL 100 MG TAB PO SCH (09:03)
[2017-08-19] MEDS: FUROSEMIDE 40 MG/4 ML VIAL IV PUSH SCH ×2 (09:03→18:17)
[2017-08-19] MEDS: LACTOBACILLUS ACIDOPHILUS TAB PO SCH ×3 (09:03→18:16)
[2017-08-19] MEDS: predniSONE 20 MG TAB PO SCH ×2 (09:04→22:50)
[2017-08-19] MEDS: MULTIVITAMIN TAB PO SCH (09:04)
[2017-08-19] MEDS: DOCUSATE SODIUM 50 MG/SENNA 8.6 MG TAB PO SCH ×2 (09:04→22:50)
[2017-08-19] MEDS: PANTOPRAZOLE SOD 40 MG DELAYED RELEASE TAB PO SCH ×2 (09:05→22:50)
[2017-08-19] MEDS: RIVAROXABAN 15 MG TAB PO SCH (09:05)
[2017-08-19] MEDS: DILTIAZEM-CD 240 MG CAP ER PO SCH (09:05)
[2017-08-19] MEDS: FOLIC ACID 1 MG TAB PO SCH (09:05)
[2017-08-19] MEDS ORDERED: VANCOMYCIN INJ 2,000 MG in SODIUM CHLORID 0.9% 500 ML INJ 500 ML IV ONE (12:00)
--- NOTE | 2017-08-19 12:30 | PD.WCN.NOT ---
Wound Consult Description: Received consult from NICK Alarcon for RLE wound management. Communicated with: ALEJANDRA Davis CDU G pod and Call placed to Doctor Steven for orders Recommendation: 1.Please cleanse wounds to BLE with normal saline and cover with optifoam AG gentle and secure with rolled gauze and tape.Please change dressing every 2 days or PRN if saturated or dislodged 2. Elevate BLE while in chair or in bed. 3. Please order ammonium lactate lotion or Lac Hydrin BID for application on BLE 4.Please apply shaving cream to BLE 3 times a week and leave in place for 10 minutes before removing with warm water and wash cloths. Please dry legs thoroughly.Before applying lotion or dressings Additional Information: Patient has BLE edema with dry, hyperkeratotic, scaly, skin R worse than LLE. Skin has cobblestone like appearance on BLE with minimal weeping of serous drainage on RLE. Shaving cream was applied to BLE and left in place for 10 minutes with moistened towels placed over BLE. Removed shaving cream with warm water and wash cloths gently. Dried BLE thoroughly to reveal partial thickness wound with jagged poorly defined wound margins to R anterior velarde. Wound measures ~6cm x ~4cm x ~<0.1cm Periwound is noted with diffuse scattered small areas of partial thickness skin loss. Wound drainage is minimal and serous. Left wound open to air. LLE extremity is noted with diffuse, scattered small areas of partial thickness skin loss largest wound measuring ~0.5cm x ~0.5cm x ~ <0.1cm. Left all wounds open to air. Recommendations are noted above. Cecily Torres [facility] Aug 19, 2017 12:30
--- NOTE | 2017-08-19 15:13 | PD.CONS ---
History of Present Illness Service Infectious Disease Consult Requested By Dr Carbajal Reason for Consult Evaluate patient with MRSA Primary Care Physician Unknown Diagnoses: History of Present Illness Patient seen and examined. Records reviewed. Patient is a 61-year-old male, morbidly obese, with known COPD, oxygen dependent , scented to the hospital complaining of shortness of breath and increasing lower extremity swelling for about a week. He also started noticing redness on his right leg. Denies any fever or chills or sweats. He has not been having any congestion, cough or sputum production. Denies any chest pain. Patient stated that he has sleep apnea, and was supposed to get a BiPAP machine but I been able to get it. Since admission he has not had any fever. 1 out of the 2 blood culture has MRSA and coag-negative staph. Culture of the wound on the leg has MRSA. Patient states that his breathing has not really improved much. Chest xray on admission is normal. His WBC is mildly elevated at 11,000. Infectious disease consultation is requested to evaluate the patient. Review of Systems Constitutional: DENIES: Fever, Chills, Night Sweats Eyes: DENIES: Eye pain Ears, nose, mouth, throat: DENIES: Vertigo, Nasal discharge, Throat pain, Ear Pain Respiratory: COMPLAINS OF: Shortness of breath, DENIES: Cough, Sputum production Cardiovascular: COMPLAINS OF: Lower Extremity Edema, DENIES: Chest pain, Palpitations Gastrointestinal: DENIES: Abdominal pain, Diarrhea, Nausea, Vomiting, Difficulty Swallowing Genitourinary: DENIES: Urgency, Hematuria, Dysuria Integumentary: DENIES: Rash Neurologic: DENIES: Localized weakness Psychiatric: DENIES: Hallucinations Past Family Social History Allergies: Coded Allergies: No Known Allergies (Unverified Allergy, Unknown, 08/16/17) Past Medical History HTN, A. fib on Xarelto CHF (Echo 02/03/17 w/ EF 65%) COPD CAD Past Surgical History Appendectomy Cardiac Ablation Tonsillectomy Reported Medications I attest that I obtained, updated or reviewed the home and current medications. Reported Meds & Active Scripts Active Xarelto (Rivaroxaban) 15 Mg Tab 15 Mg PO DAILY 30 Days Digoxin 0.125 Mg Tab 0.125 Mg PO DAILY Cardizem CD 24 HR (Diltiazem CD 24 HR) 360 Mg Caper 360 Mg PO DAILY Lopressor (Metoprolol Tartrate) 50 Mg Tab 100 Mg PO Q8H Pantoprazole (Pantoprazole Sodium) 40 Mg Tab 40 Mg PO Q12HR Ventolin Hfa 18 GM Inh (Albuterol Sulfate) 90 Mcg/Act Aer 1 Puff INH Q4H PRN Atrovent HFA 12.9 GM Inh (Ipratropium [place]) 17 Mcg/Act Aer 2 Puff INH Q6HR PRN Symbicort Inh (Budesonide/Formoterol Fumarate) 160-4.5 Mcg/Act Aero 2 Puff INH Q12HR Reported Lasix (Furosemide) 40 Mg Tab 40 Mg PO BID Breo Ellipta Inh (Fluticasone/Vilanterol) 100-25 Mcg/Act Inh 1 Puff INH DAILY Use daily at the same time. Atorvastatin (Atorvastatin Calcium) 40 Mg Tab 40 Mg PO HS Active Ordered Medications Current Medications Medications (Trade) Dose Ordered Sig/Delilah Route Start Time Stop Time Status Last Admin (Duoneb Neb) 1 ampule Q4HR WHILE AWAKE NEB NEB 08/17/17 08:00 08/19/17 12:01 (Duoneb Neb) 1 ampule Q2HR NEB PRN NEB 08/16/17 20:15 (Lasix Inj) 40 mg BID@09,18 IV PUSH 08/17/17 09:00 08/19/17 09:03 (NS Flush) 2 ml UNSCH PRN IV FLUSH 08/16/17 20:15 08/17/17 06:00 (NS Flush) 2 ml BID IV FLUSH 08/16/17 21:00 08/19/17 09:02 (Zofran Inj) 4 mg Q6H PRN IVP 08/16/17 20:15 (Tylenol) 650 mg Q6H PRN PO 08/16/17 20:15 (Calvin 5-325 Mg) 1 tab Q4H PRN PO 08/16/17 20:15 08/17/17 14:28 (Morphine Inj) 2 mg Q3H PRN IV PUSH 08/16/17 20:15 (Coco-Colace) 1 tab BID PO 08/16/17 21:00 08/19/17 09:04 (Milk Of Magnesia Liq) 30 ml Q12H PRN PO 08/16/17 20:15 (Senokot) 17.2 mg Q12H PRN PO 08/16/17 20:15 (Dulcolax Supp) 10 mg DAILY PRN RECTAL 08/16/17 20:15 (Lactulose Liq) 30 ml DAILY PRN PO 08/16/17 20:15 (Lipitor) 40 mg HS PO 08/16/17 21:00 08/18/17 21:49 (Symbicort 160-4.5 Mcg Inh) 2 puff Q12HR INH 08/16/17 21:00 08/19/17 09:02 (Lanoxin) 0.125 mg DAILY PO 08/17/17 09:00 Future Hold (Lopressor) 100 mg Q8H PO 08/16/17 21:00 08/19/17 13:09 (Protonix) 40 mg Q12HR PO 08/16/17 21:00 08/19/17 09:05 (Xarelto) 15 mg DAILY PO 08/17/17 09:00 08/19/17 09:05 (Ativan Inj) 1 mg Q2H PRN IV PUSH 08/16/17 20:45 Pharmacy Profile Note 0 ml @ 0 mls/hr UNSCH OTHER 08/17/17 12:00 (Lactinex) 1 tab TID PO 08/17/17 13:00 08/19/17 13:09 (Deltasone) 40 mg BID PO 08/17/17 21:00 08/19/17 09:04 (D50w (Vial) Inj) 50 ml UNSCH PRN IV PUSH 08/17/17 12:15 (Glucagon Inj) 1 mg UNSCH PRN OTHER 08/17/17 12:15 (NovoLOG SUPPLEMENTAL SCALE) 1 ACHS SLIDING SCALE SQ 08/17/17 17:00 08/19/17 13:09 (Romazicon Inj) 0.2 mg Q1M PRN IV PUSH 08/17/17 12:45 (Ativan) 1 mg Q4H PRN PO 08/17/17 12:45 08/18/17 14:55 (Ativan Inj) 1 mg Q4H PRN IV PUSH 08/17/17 12:45 (Ativan) 2 mg Q2H PRN PO 08/17/17 12:45 (Ativan Inj) 2 mg Q2H PRN IV PUSH 08/17/17 12:45 (Ativan Inj) 2 mg Q1H PRN IV PUSH 08/17/17 12:45 (Ativan Inj) 2 mg Q15M PRN IV PUSH 08/17/17 12:45 (Vitamin B1) 100 mg DAILY PO 08/18/17 09:00 08/19/17 09:03 (Folate) 1 mg DAILY PO 08/18/17 09:00 08/19/17 09:05 (Theragran) 1 tab DAILY PO 08/18/17 09:00 08/19/17 09:04 Miscellaneous Information SPECIFIC LAB TO BE KRISTA... ONCE ONCE .XX 08/20/17 14:45 08/20/17 14:46 (Cardizem Cd) 240 mg DAILY PO 08/19/17 09:00 08/19/17 09:05 (Lasix Inj) 40 mg BID@,18 IV PUSH 08/19/17 18:00 (Lac-Hydrin 12% Lotion) 1 applic BID TOPICAL 08/19/17 21:00 Family History Non-contributory Social History No smoking 3-4 drinks daily. Negative for drugs. +Marijuana. Physical Exam Vital Signs Vital Signs Date Time Temp Pulse Resp B/P (MAP) Pulse Ox O2 Delivery O2 Flow Rate FiO2 08/19/17 12:38 98.4 59 24 98/59 (72) 92 08/19/17 08:41 98.6 61 22 97/58 (71) 92 08/19/17 07:20 93 Nasal Cannula 3.00 08/19/17 04:50 64 08/19/17 04:47 97.2 93 20 129/74 (92) 93 08/19/17 00:03 97.4 80 20 117/68 (84) 94 08/18/17 23:50 66 08/18/17 21:24 97.5 72 20 114/66 (82) 93 08/18/17 19:24 93 Nasal Cannula 3.00 08/18/17 16:00 59 08/18/17 15:39 97.8 65 20 104/58 (73) 94 08/18/17 15:20 59 Physical Exam GENERAL: Patient is a morbidly obese, well-developed male, awake and alert , not in respiratory distress. SKIN: Cool and dry. No generalized rash, no ecchymoses and no evidence of embolic lesions. HEAD: Atraumatic. Normocephalic. No temporal wasting, or tenderness. EYES: [place] conjunctiva. No petechia or hemorrhage. Pupils equal, round and reactive to light. Extraocular movements full and intact. No scleral icterus. No injection or drainage. EARS, NOSE AND THROAT: Nose without bleeding or purulent nasal discharge. No sinus tenderness. Mucous membranes pink and moist. No oral lesions noted. No exudate. No oral thrush. NECK: Trachea midline. Neck is obese. Supple and not tender, no meningeal signs CARDIOVASCULAR: Regular rate and rhythm. No murmurs, rubs or gallops heard RESPIRATORY: Clear to auscultation. Breath sounds equal bilaterally. No rales , wheezing or rhonchi. Decreased at bases ABDOMEN: Obese, limited exam due to size. Bowel sounds present and normoactive. No guarding. No rebound. EXTREMITIES: No clubbing, cyanosis. Has cobblestone texture of both legs, and tree bark texture in medial thigh jeremiah worse on R than on L, has superficial very small wounds on both anterior leg with serous drainage, no purulence. RLE is larger compared to the LLE, but both are big and swollen. Minimal erythema noted on R leg. No calf tenderness. Well perfused and warm. NEUROLOGICAL: Awake and alert. Cranial nerves grossly intact. Motor grossly within normal limits. PSYCHIATRIC: Normal affect, calm and cooperative. LINE: No evidence of infection Laboratory Laboratory Tests Test 08/19/17 05:46 White Blood Count 11.3 Red Blood Count 2.75 Hemoglobin 7.9 Hematocrit 24.8 Mean Corpuscular Volume 90.1 Mean Corpuscular Hemoglobin 28.7 Mean Corpuscular Hemoglobin Concent 31.8 Red Cell Distribution Width 21.8 Platelet Count 278 Mean Platelet Volume 8.4 Neutrophils (%) (Auto) 90.9 Lymphocytes (%) (Auto) 4.0 Monocytes (%) (Auto) 4.8 Eosinophils (%) (Auto) 0.1 Basophils (%) (Auto) 0.2 Neutrophils # (Auto) 10.3 Lymphocytes # (Auto) 0.5 Monocytes # (Auto) 0.5 Eosinophils # (Auto) 0.0 Basophils # (Auto) 0.0 CBC Comment DIFF FINAL Differential Comment Blood Urea Nitrogen 62 Creatinine 3.01 Random Glucose 175 Total Protein 6.6 Albumin 3.0 Calcium Level 8.6 Phosphorus Level 5.5 Magnesium Level 2.2 Alkaline Phosphatase 206 Aspartate Amino Transf (AST/SGOT) 21 Alanine Aminotransferase (ALT/SGPT) 29 Total Bilirubin 0.5 Sodium Level 134 Potassium Level 4.9 Chloride Level 99 Carbon Dioxide Level 28.7 Anion Gap 6 Estimat Glomerular Filtration Rate 21 Random Vancomycin Level 11.0 Date/Time Source Procedure Growth Status 08/16/17 18:40 Blood Peripheral Aerobic Blood Culture - Preliminary NO GROWTH IN 3 DAYS Resulted 08/16/17 18:40 Blood Peripheral Anaerobic Blood Culture - Preliminary NO GROWTH IN 3 DAYS Resulted 08/16/17 18:35 Wound Leg Gram Stain - Final Complete 08/16/17 18:35 Wound Culture - Final S. Aureus Mrsa Complete Result Diagram: 08/19/17 0546 08/19/17 0546 Imaging RADIOLOGY STUDIES/FILMS REVIEWED Chest X-Ray 08/16/17 1820 Signed Impressions: Service Date/Time: Wednesday, August 16, 2017 18:41 - CONCLUSION: 1. No acute abnormality or significant interval change. Ollie Moran MD Assessment and Plan Assessment and Plan IMPRESSION Chronic BLE edema, presented with some cellulitis on his R leg, which has improved markedly One (+) BC with MRSA and Coag Neg Staphe, out of 2, ?real, or contaminant and he is just colonized with MRSA on his skin COPD, DENIS Morbid obesity ?Pulmonary HTN due to sleep apnea and resulting BLE edema CKD, worse RECOMMENDATION Continue IV Vanco for now Follow BC If no other (+) BC and he is ready for D/C from his pulmonary standpoint, will give him po Levaquin to complete his cellulitis Rx Monitor progress I will follow along with you Thank you for this consultation Evelin Valencia MD Aug 19, 2017 15:13
--- NOTE | 2017-08-19 16:55 | HHI.PR ---
Subjective Remarks Follow-up on patient with CHF exacerbation, AECOPD, RLE cellulitis. Patient seen and examined. Patient reports swelling in his legs has improved. Breathing is about the same. Reports cough with no sputum production. Denies any complaints of chest pain. Denies any fever or chills. States he has some burning with urination. Denies any nausea, vomiting or abdominal pain. Patient has upcoming appointment with Dr. Page after the first of the year. Patient admits today that he begins drinking alcohol about 11:00 in the morning and stops about 8 or 9 at night having about 5-6 large mixed drinks throughout the day. Objective Vitals Vital Signs Date Time Temp Pulse Resp B/P (MAP) Pulse Ox O2 Delivery O2 Flow Rate FiO2 08/19/17 12:38 98.4 59 24 98/59 (72) 92 08/19/17 08:41 98.6 61 22 97/58 (71) 92 08/19/17 07:20 93 Nasal Cannula 3.00 08/19/17 04:50 64 08/19/17 04:47 97.2 93 20 129/74 (92) 93 08/19/17 00:03 97.4 80 20 117/68 (84) 94 08/18/17 23:50 66 08/18/17 21:24 97.5 72 20 114/66 (82) 93 08/18/17 19:24 93 Nasal Cannula 3.00 I/O 08/18/17 08/18/17 08/18/17 08/19/17 08/19/17 08/19/17 07:00 15:00 23:00 07:00 15:00 23:00 Intake Total 200 ml 630 ml Output Total 700 ml 230 ml 200 ml Balance -500 ml 400 ml -200 ml Intake Oral 200 ml 620 ml IV Total 10 ml Output Urine Total 700 ml 230 ml 200 ml Stool Total 0 ml # Voids 3 # Bowel Movements 1 Result Diagram: 08/19/17 0546 08/19/17 0546 Imaging Last Impressions Chest X-Ray 08/16/17 182 Signed Impressions: Service Date/Time: Wednesday, August 16, 2017 18:41 - CONCLUSION: 1. No acute abnormality or significant interval change. Ollie Moran MD Objective Remarks GENERAL: Well-nourished, well-developed obese patient in NAD. Awake and alert. Sitting up in bedside chair. SKIN: Warm and dry. 2+ pitting edema standing up into abdomen. HEAD: Normocephalic. Atraumatic. EYES: EOMI. No scleral icterus. No injection or drainage. ENT: No nasal bleeding or discharge. Mucous membranes pink and moist. NECK: Trachea midline. CARDIOVASCULAR: Regular rate and rhythm. S1, S2 noted. No murmur appreciated. RESPIRATORY: Nonlabored. Diminished but clear to auscultation. Breath sounds equal bilaterally. GASTROINTESTINAL: Abdomen soft, non-tender, nondistended. Normoactive bowel sounds x4. MUSCULOSKELETAL: No obvious deformities. Extremities without clubbing or cyanosis. 4+ brawny edema BLE with active weeping yellowish discharge from RLE. NEUROLOGICAL: Awake and alert. Able to move all extremities. Nonfocal. Normal speech. PSYCHIATRIC: Appropriate mood and affect; insight and judgment normal. Procedures NONE Medications and IVs Current Medications Medications (Trade) Dose Ordered Sig/Delilah Route Start Time Stop Time Status Last Admin (Duoneb Neb) 1 ampule Q4HR WHILE AWAKE NEB NEB 08/17/17 08:00 08/19/17 12:01 (Duoneb Neb) 1 ampule Q2HR NEB PRN NEB 08/16/17 20:15 (Lasix Inj) 40 mg BID@,18 IV PUSH 08/17/17 09:00 08/19/17 09:03 (NS Flush) 2 ml UNSCH PRN IV FLUSH 08/16/17 20:15 08/17/17 06:00 (NS Flush) 2 ml BID IV FLUSH 08/16/17 21:00 08/19/17 09:02 (Zofran Inj) 4 mg Q6H PRN IVP 08/16/17 20:15 (Tylenol) 650 mg Q6H PRN PO 08/16/17 20:15 ([place] 5-325 Mg) 1 tab Q4H PRN PO 08/16/17 20:15 08/17/17 14:28 (Morphine Inj) 2 mg Q3H PRN IV PUSH 08/16/17 20:15 (Coco-Colace) 1 tab BID PO 08/16/17 21:00 08/19/17 09:04 (Milk Of Magnesia Liq) 30 ml Q12H PRN PO 08/16/17 20:15 (Senokot) 17.2 mg Q12H PRN PO 08/16/17 20:15 (Dulcolax Supp) 10 mg DAILY PRN RECTAL 08/16/17 20:15 (Lactulose Liq) 30 ml DAILY PRN PO 08/16/17 20:15 (Lipitor) 40 mg HS PO 08/16/17 21:00 08/18/17 21:49 (Symbicort 160-4.5 Mcg Inh) 2 puff Q12HR INH 08/16/17 21:00 08/19/17 09:02 (Lanoxin) 0.125 mg DAILY PO 08/17/17 09:00 Future Hold (Lopressor) 100 mg Q8H PO 08/16/17 21:00 08/19/17 13:09 (Protonix) 40 mg Q12HR PO 08/16/17 21:00 08/19/17 09:05 (Xarelto) 15 mg DAILY PO 08/17/17 09:00 08/19/17 09:05 (Ativan Inj) 1 mg Q2H PRN IV PUSH 08/16/17 20:45 Pharmacy Profile Note 0 ml @ 0 mls/hr UNSCH OTHER 08/17/17 12:00 (Lactinex) 1 tab TID PO 08/17/17 13:00 08/19/17 13:09 (Deltasone) 40 mg BID PO 08/17/17 21:00 08/19/17 09:04 (D50w (Vial) Inj) 50 ml UNSCH PRN IV PUSH 08/17/17 12:15 (Glucagon Inj) 1 mg UNSCH PRN OTHER 08/17/17 12:15 (NovoLOG SUPPLEMENTAL SCALE) 1 ACHS SLIDING SCALE SQ 08/17/17 17:00 08/19/17 13:09 (Romazicon Inj) 0.2 mg Q1M PRN IV PUSH 08/17/17 12:45 (Ativan) 1 mg Q4H PRN PO 08/17/17 12:45 08/18/17 14:55 (Ativan Inj) 1 mg Q4H PRN IV PUSH 08/17/17 12:45 (Ativan) 2 mg Q2H PRN PO 08/17/17 12:45 (Ativan Inj) 2 mg Q2H PRN IV PUSH 08/17/17 12:45 (Ativan Inj) 2 mg Q1H PRN IV PUSH 08/17/17 12:45 (Ativan Inj) 2 mg Q15M PRN IV PUSH 08/17/17 12:45 (Vitamin B1) 100 mg DAILY PO 08/18/17 09:00 08/19/17 09:03 (Folate) 1 mg DAILY PO 08/18/17 09:00 08/19/17 09:05 (Theragran) 1 tab DAILY PO 08/18/17 09:00 08/19/17 09:04 Miscellaneous Information SPECIFIC LAB TO BE KRISTA... ONCE ONCE .XX 08/20/17 14:45 08/20/17 14:46 (Cardizem Cd) 240 mg DAILY PO 08/19/17 09:00 08/19/17 09:05 (Lasix Inj) 40 mg BID@,18 IV PUSH 08/19/17 18:00 (Lac-Hydrin 12% Lotion) 1 applic BID TOPICAL 08/19/17 21:00 A/P Problem List: (1) COPD (chronic obstructive pulmonary disease) ICD Code: J44.9 - Chronic obstructive pulmonary disease, unspecified Status: Chronic (2) CHF (congestive heart failure) ICD Code: I50.9 - Heart failure, unspecified Status: Chronic (3) A-fib ICD Code: I48.91 - Unspecified atrial fibrillation Status: Chronic (4) Renal insufficiency ICD Code: N28.9 - Disorder of kidney and ureter, unspecified Status: Acute (5) Cellulitis, leg ICD Code: L03.119 - Cellulitis of unspecified part of limb Status: Acute (6) Anemia ICD Code: D64.9 - Anemia, unspecified Status: Acute Assessment and Plan 61-year-old male with past medical history significant for atrial fibrillation on Xarelto, COPD, CHF, chronic renal insufficiency admitted with right lower extremity cellulitis, bilateral lower extremity edema and increased shortness of breath. COPD, acute on chronic exacerbation - CXR personally reviewed showing no acute findings - Continue on scheduled DuoNeb - Symbicort 160/4.5 mcg 2 puffs BID - Treated with IV methylprednisolone 40 mg every 6, on po taper, continue - Continue supplemental oxygen as needed - Continue to monitor respiratory status, currently 92% on 2L NC CHF, acute on chronic, diastolic - Echocardiogram completed 02/03/17 with EF of 65% - BNP 308 - Continue with diuresis on IV Lasix. Monitor electrolytes - monitor I&Os - fluid/salt restricted diet CORIN on CKD stage 3, underlying nephrosclerosis - Worsening kidney function while on IV diuresis. Consult nephrology, appreciate assistance. - baseline appears to be around 1.5-1.6. Now 3.01. - Renal US 07/27/17 normal. Obtain urine sodium and creatinine. - Strict I&Os - Avoid nephrotoxic agents - repeat BMP in am Hyperphosphatemia - Secondary to acute renal failure - Repeat phosphorus level in a.m. Hyponatremia, chronic - mild - asymptomatic - monitor RLE cellulitis Chronic bilateral venous status dermatitis - Wound culture in the system 02/09/17 positive for MRSA, sensitive to Vancomycin - Continue on Vancomycin. Pharmacy to dose. - ID consulted, appreciate assistance - Urine cx (+)MRSA. Blood culture positive for MRSA and Coag Neg Staph - possible colonization/contaminant - Wound care consulted, Please cleanse wounds to BLE with normal saline and cover with optifoam AG gentle and secure with rolled gauze and tape.Please change dressing every 2 days or PRN if saturated or dislodged. Please apply shaving cream to BLE 3 times a week and leave in place for 10 minutes before removing with warm water and wash cloths. Please dry legs thoroughly.Before applying lotion or dressings. Lac Hydrin BID. - Elevated BLE when able Atrial fibrillation, chronic - rate controlled - Continue on Diltiazem CD 360mg daily and Lopressor 100mg po q8h daily - digoxin level normal. Resume home Digoxin 0.125mg daily. Monitor daily. - Continue on home dose of Xarelto DENIS - Non CPAP compliant Anemia, normocytic, chronic - Suspect secondary to anemia of chronic disease - stable - Continue to monitor CBC as indicated Hyperglycemia - No reported history of diabetes - Exacerbated by IV steroids - hemoglobin A1c level 5.6 - Accu-Cheks, insulin sliding scale Dysuria Suspect BPH - initial UA negative. Will repeat. - patient reports hesitancy and slow stream. Trial of Flomax. Hx of alcohol use/abuse - [facility] protocol - Thiamine/folic acid/MVI daily GERD/gastritis - Continue pantoprazole DVT prophylaxis - Patients on Xarelto Discussed with patient, nursing staff and Dr. Sayess Problem Qualifiers (1) Cellulitis, leg: Qualified Codes: L03.115 - Cellulitis of right lower limb Annalee Alarcon Aug 19, 2017 16:54
[2017-08-19] MEDS ORDERED: TAMSULOSIN HCL 0.4 MG CAP PO ONE (17:00)
[2017-08-19 17:34] LABS: BLOOD, URINE NEG (NEG); COMMENT (UR) CULT NOT INDICATED; CULTURE IF INDICATED CULT NOT INDICATED; GLUCOSE,URINE NEG (NEG); HYALINE CAST, URINE 42 /lpf (RARE); KETONE, URINE NEG (NEG); MUCUS URINE FEW /lpf (OCC); NITRITE,URINE NEG (NEG); SQUAMOUS EPITHELIAL CELL URINE 1 /hpf (0-5); URINE COLOR YELLOW (YELLW/STRAW)
--- NOTE | 2017-08-19 17:37 | PD.CONS ---
HPI Service Nephrology Consult Requested By NICK Mejias Reason for Consult CORIN on CKD, marian Primary Care Physician [place] [facility] History of Present Illness The patient is a 61 yo [place] male who presented to the ED on 08/16 with complaints of SOB and worsening LE edema. He has had multiple admissions to this facility since April and seems to be all from the same complaints. Has known CKD with previous baseline SCr of 1.6-1.9, but has had periodic spikes. His most recent admission was 07/26/15 thru 07/29 for COPD exacerbation. His D/C SCr was 2.08 on 07/29. He denies any recent abx use. Denies NSAID use. Uses Lasix 40mg BID at home, but has had decrease in UOP over the past few weeks. Is a heavy drinker of 5-7 drinks daily. Also admits marijuana use, but no other illicits. PMHx includes atrial fibrillation with ablation attempts x3, HTN, morbid obesity, CHF with EF of 65%, venous stasis, LE cellulitis, hyponatremia, & COPD. Is currently being treated for LE cellulitis. Was on vancomycin and ID has changed to po Levaquin. Initial BCx positive for MRSA, but ID feels his skin is colonized as repeat BCx negative. 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 been marginal as per critical care cns of Systems Constitutional: COMPLAINS OF: Weight gain Respiratory: COMPLAINS OF: Shortness of breath Cardiovascular: COMPLAINS OF: Lower Extremity Edema Genitourinary: COMPLAINS OF: Dysuria Past Family Social History Allergies: Coded Allergies: No Known Allergies (Unverified Allergy, Unknown, 08/16/17) Past Medical History CKD 3 with baseline SCr of 1.6-1.9 HTN Morbid obesity EtOH abuse CHF with preserved LVEF of 65% CVA Venous Stasis LE Cellulitis COPD A. fib Past Surgical History Appendectomy Cardiac ablation for A fib x3 Tonsillectomy Reported Medications Xarelto (Rivaroxaban) 15 Mg Tab 15 Mg PO DAILY 30 Days Digoxin 0.125 Mg Tab 0.125 Mg PO DAILY Cardizem CD 24 HR (Diltiazem CD 24 HR) 360 Mg Caper 360 Mg PO DAILY Lopressor (Metoprolol Tartrate) 50 Mg Tab 100 Mg PO Q8H Pantoprazole (Pantoprazole Sodium) 40 Mg Tab 40 Mg PO Q12HR Ventolin Hfa 18 GM Inh (Albuterol Sulfate) 90 Mcg/Act Aer 1 Puff INH Q4H PRN Atrovent HFA 12.9 GM Inh (Ipratropium [place]) 17 Mcg/Act Aer 2 Puff INH Q6HR PRN Symbicort Inh (Budesonide/Formoterol Fumarate) 160-4.5 Mcg/Act Aero 2 Puff INH Q12HR Lasix (Furosemide) 40 Mg Tab 40 Mg PO BID Breo Ellipta Inh (Fluticasone/Vilanterol) 100-25 Mcg/Act Inh 1 Puff INH DAILY Use daily at the same time. Atorvastatin (Atorvastatin Calcium) 40 Mg Tab 40 Mg PO HS Active Ordered Medications Current Medications Medications (Trade) Dose Ordered Sig/Delilah Route Start Time Stop Time Status Last Admin (Duoneb Neb) 1 ampule Q4HR WHILE AWAKE NEB NEB 08/17/17 08:00 08/19/17 16:02 (Duoneb Neb) 1 ampule Q2HR NEB PRN NEB 08/16/17 20:15 (Lasix Inj) 40 mg BID@09,18 IV PUSH 08/17/17 09:00 08/19/17 09:03 (NS Flush) 2 ml UNSCH PRN IV FLUSH 08/16/17 20:15 08/17/17 06:00 (NS Flush) 2 ml BID IV FLUSH 08/16/17 21:00 08/19/17 09:02 (Zofran Inj) 4 mg Q6H PRN IVP 08/16/17 20:15 (Tylenol) 650 mg Q6H PRN PO 08/16/17 20:15 ([place]richard 5-325 Mg) 1 tab Q4H PRN PO 08/16/17 20:15 08/17/17 14:28 (Morphine Inj) 2 mg Q3H PRN IV PUSH 08/16/17 20:15 (Coco-Colace) 1 tab BID PO 08/16/17 21:00 08/19/17 09:04 (Milk Of Magnesia Liq) 30 ml Q12H PRN PO 08/16/17 20:15 (Senokot) 17.2 mg Q12H PRN PO 08/16/17 20:15 (Dulcolax Supp) 10 mg DAILY PRN RECTAL 08/16/17 20:15 (Lactulose Liq) 30 ml DAILY PRN PO 08/16/17 20:15 (Lipitor) 40 mg HS PO 08/16/17 21:00 08/18/17 21:49 (Symbicort 160-4.5 Mcg Inh) 2 puff Q12HR INH 08/16/17 21:00 08/19/17 09:02 (Lanoxin) 0.125 mg DAILY PO 08/17/17 09:00 Future hold (Lopressor) 100 mg Q8H PO 08/16/17 21:00 08/19/17 13:09 (Protonix) 40 mg Q12HR PO 08/16/17 21:00 08/19/17 09:05 (Xarelto) 15 mg DAILY PO 08/17/17 09:00 08/19/17 09:05 (Ativan Inj) 1 mg Q2H PRN IV PUSH 08/16/17 20:45 Pharmacy Profile Note 0 ml @ 0 mls/hr UNSCH OTHER 08/17/17 12:00 (Lactinex) 1 tab TID PO 08/17/17 13:00 08/19/17 13:09 (Deltasone) 40 mg BID PO 08/17/17 21:00 08/20/17 09:00 08/19/17 09:04 (D50w (Vial) Inj) 50 ml UNSCH PRN IV PUSH 08/17/17 12:15 (Glucagon Inj) 1 mg UNSCH PRN OTHER 08/17/17 12:15 (NovoLOG SUPPLEMENTAL SCALE) 1 ACHS SLIDING SCALE SQ 08/17/17 17:00 08/19/17 13:09 (Romazicon Inj) 0.2 mg Q1M PRN IV PUSH 08/17/17 12:45 (Ativan) 1 mg Q4H PRN PO 08/17/17 12:45 08/18/17 14:55 (Ativan Inj) 1 mg Q4H PRN IV PUSH 08/17/17 12:45 (Ativan) 2 mg Q2H PRN PO 08/17/17 12:45 (Ativan Inj) 2 mg Q2H PRN IV PUSH 08/17/17 12:45 (Ativan Inj) 2 mg Q1H PRN IV PUSH 08/17/17 12:45 (Ativan Inj) 2 mg Q15M PRN IV PUSH 08/17/17 12:45 (Vitamin B1) 100 mg DAILY PO 08/18/17 09:00 08/19/17 09:03 (Folate) 1 mg DAILY PO 08/18/17 09:00 08/19/17 09:05 (Theragran) 1 tab DAILY PO 08/18/17 09:00 08/19/17 09:04 Miscellaneous Information SPECIFIC LAB TO BE KRISTA... ONCE ONCE .XX 08/20/17 14:45 08/20/17 14:46 (Cardizem Cd) 240 mg DAILY PO 08/19/17 09:00 08/19/17 09:05 (Lasix Inj) 40 mg BID@,18 IV PUSH 08/19/17 18:00 (Lac-Hydrin 12% Lotion) 1 applic BID TOPICAL 08/19/17 21:00 (Deltasone) 40 mg DAILY PO 08/20/17 09:00 (Flomax) 0.4 mg DAILY PO 08/20/17 09:00 Family History NC Social History Heavy EtOH abuse Marijuana use No other illicit drugs Physical Exam Vital Signs Vital Signs Date Time Temp Pulse Resp B/P (MAP) Pulse Ox O2 Delivery O2 Flow Rate FiO2 08/19/17 16:40 98.6 60 24 106/60 (75) 92 08/19/17 16:00 55 08/19/17 12:38 98.4 59 24 98/59 (72) 92 08/19/17 12:00 61 08/19/17 08:41 98.6 61 22 97/58 (71) 92 08/19/17 08:30 58 08/19/17 07:20 93 Nasal Cannula 3.00 08/19/17 04:50 64 08/19/17 04:47 97.2 93 20 129/74 (92) 93 08/19/17 00:03 97.4 80 20 117/68 (84) 94 08/18/17 23:50 66 08/18/17 21:24 97.5 72 20 114/66 (82) 93 08/18/17 19:24 93 Nasal Cannula 3.00 Physical Exam GENERAL: Laying in bed watching television. On NC. In NAD SKIN: Warm and dry. HEAD: Atraumatic. Normocephalic. EYES: Pupils equal and round. No scleral icterus. No injection or drainage. ENT: No nasal bleeding or discharge. Mucous membranes pink and moist. NECK: Trachea midline. No JVD. CARDIOVASCULAR: Regular rate and rhythm. RESPIRATORY: No accessory muscle use. Clear to auscultation but diminished GASTROINTESTINAL: Abdomen soft. Edema present lateral wang MUSCULOSKELETAL: Extremities without clubbing, cyanosis. 2+ pitting edema BLE up to thighs and hips. LE skin is mildly erythematous and lobulated. Notable clear discharge as well. NEUROLOGICAL: Awake and alert. No obvious cranial nerve deficits. Normal speech. PSYCHIATRIC: Appropriate mood and affect; insight and judgment normal. Laboratory Laboratory Tests Test 08/19/17 05:46 08/19/17 16:30 White Blood Count 11.3 Red Blood Count 2.75 Hemoglobin 7.9 Hematocrit 24.8 Mean Corpuscular Volume 90.1 Mean Corpuscular Hemoglobin 28.7 Mean Corpuscular Hemoglobin Concent 31.8 Red Cell Distribution Width 21.8 Platelet Count 278 Mean Platelet Volume 8.4 Neutrophils (%) (Auto) 90.9 Lymphocytes (%) (Auto) 4.0 Monocytes (%) (Auto) 4.8 Eosinophils (%) (Auto) 0.1 Basophils (%) (Auto) 0.2 Neutrophils # (Auto) 10.3 Lymphocytes # (Auto) 0.5 Monocytes # (Auto) 0.5 Eosinophils # (Auto) 0.0 Basophils # (Auto) 0.0 CBC Comment DIFF FINAL Differential Comment Blood Urea Nitrogen 62 Creatinine 3.01 Random Glucose 175 Total Protein 6.6 Albumin 3.0 Calcium Level 8.6 Phosphorus Level 5.5 Magnesium Level 2.2 Alkaline Phosphatase 206 Aspartate Amino Transf (AST/SGOT) 21 Alanine Aminotransferase (ALT/SGPT) 29 Total Bilirubin 0.5 Sodium Level 134 Potassium Level 4.9 Chloride Level 99 Carbon Dioxide Level 28.7 Anion Gap 6 Estimat Glomerular Filtration Rate 21 Random Vancomycin Level 11.0 Date/Time Source Procedure Growth Status 08/16/17 18:40 Blood Peripheral Aerobic Blood Culture - Preliminary NO GROWTH IN 3 DAYS Resulted 08/16/17 18:40 Blood Peripheral Anaerobic Blood Culture - Preliminary NO GROWTH IN 3 DAYS Resulted 08/16/17 18:35 Wound Leg Gram Stain - Final Complete 08/16/17 18:35 Wound Culture - Final S. Aureus Mrsa Complete Result Diagram: 08/19/17 0546 08/19/17 0546 Imaging Last Impressions Chest X-Ray 08/16/17 1823 Signed Impressions: Service Date/Time: Wednesday, August 16, 2017 18:41 - CONCLUSION: 1. No acute abnormality or significant interval change. Ollie Moran MD Assessment and Plan Problem List: (1) Acute on chronic kidney failure ICD Codes: N17.9 - Acute kidney failure, unspecified; N18.9 - Chronic kidney disease, unspecified Plan: Baseline SCr 1.6-1.9 Acute decline potentially related to decompensation given his significant fluid retention. Echo showed preserved LVEF of 65%. Hx and clinical picture concerning for hepatic etiology. Check LFTs as well as abdominal US to assess for obstructive renal process, but also liver parenchyma. IV Bumex is out of stock per pharmacy. Increase Lasix to 40mg IV q8h. Will give dose of Diuril 500mg IV x1 tonight. Will give Albumin to supplement blood pressure. Monitor I&Os. Hopefully his renal functions will improve with diuresis, but this remains to be seen. Medications should be adjusted for the patient's renal decline. Avoid nephrotoxins including iodinated contrast dyes and NSAIDs. Avoid gadolinium when eGFR <30. (2) Edema ICD Codes: R60.9 - Edema, unspecified Plan: As above CXR reviewed from 08/16 showing no overt failure Diuretic adjustment as above (3) Cellulitis, leg ICD Codes: L03.119 - Cellulitis of unspecified part of limb Status: Acute Plan: Mgmt as per ID Vanc D/C'd. (4) Anemia ICD Codes: D64.9 - Anemia, unspecified Status: Acute Plan: Repeat CBC Check Fe panel and FOBT Suspect some degree of hemodilution (5) Hyponatremia ICD Codes: E87.1 - Hypo-osmolality and hyponatremia Status: Acute Plan: Mild. Likely related to hypervolemia as well as EtOH abuse. Problem Qualifiers (1) Cellulitis, leg: Qualified Codes: L03.115 - Cellulitis of right lower limb Zaina Barger Aug 19, 2017 17:37
[2017-08-19] MEDS ORDERED: FUROSEMIDE 40 MG/4 ML VIAL IV PUSH SCH ×2 (18:00)
[2017-08-19] MEDS: LORazepam 1 MG TAB PO PRN (18:28)
[2017-08-19] MEDS ORDERED: CHLOROTHIAZIDE SOD 500 MG VIAL IV ONE (18:30)
--- NOTE | 2017-08-19 20:14 | RADRPT ---
EXAM DATE/TIME: 08/19/2017 19:16 [facility] COMPARISON: No previous studies available for comparison. INDICATIONS : Abnormal labs. MEDICAL HISTORY : Hypercholesterolemia. Myocardial infarction. Chronic obstructive pulmonary disease. Cerebrovascular a ccident. Congestive heart failure. Coronary artery disease. Anticoagulant therapy. Seizures. Afib. Hy pertension. Sleep apnea. ETOH abuse. Measles. Blood transfusion. MRSA. Previous suicide attempt. SURGICAL HISTORY : Appendectomy. Cardiac ablation x 3. Right ankle surgery. ENCOUNTER: Subsequent ACUITY: 1 day PAIN SCORE: 0/10 LOCATION: Bilateral upper quadrant MEASUREMENTS: LIVER: 25.0 cm length COMMON DUCT: 5 mm RIGHT KIDNEY: 11.1 x 5.9 x 5.1 cm LEFT KIDNEY: 12.1 x 5.3 x 6.0 cm SPLEEN: 13.7 cm length AORTA: 3.0cm maximal FINDINGS: LIVER: Liver is enlarged, heterogeneous and diffusely increased in echogenicity suggestive of probable fatty infiltration. No focal mass is noted. No biliary ductal dilatation is noted. There is hepatopetal fl ow within the portal vein. COMMON DUCT: No intraluminal mass or stone visualized. GALLBLADDER: The gallbladder is contracted and its wall is thickened. No pericholecystic fluid or sonographic Murp hy's sign is noted. No cholelithiasis is noted. PANCREAS: Limited visualization due to shadowing bowel gas and body habitus. RIGHT KIDNEY: No hydronephrosis, stone or mass. LEFT KIDNEY: No hydronephrosis, stone or mass. SPLEEN: The spleen is enlarged. AORTA: Limited visualization due to shadowing bowel gas and body habitus. IVC: Limited visualization due to shadowing bowel gas and body habitus. CONCLUSION: 1. Enlarged heterogeneous fatty liver. 2. Contracted thick-walled, gallbladder without pericholecystic fluid or sonographic Richmond's sign. 3. Mild splenomegaly. 4. Limited visualization of the pancreas, abdominal aorta and inferior vena cava due to shadowing bow el gas and body habitus. Stevan Fuentes MD on August 19, 2017 at 20:09 Board Certified Radiologist. This report was verified electronically.
[2017-08-19 20:48] LABS: INDIRECT BILIRUBIN 0.3 MG/DL (0.0-0.8); TOTAL BILIRUBIN ADULT 0.6 MG/DL (0.2-1.0)
[2017-08-19 20:49] LABS: TRANSFERRIN IRON PROFILE 294 MG/DL (200-360)
[2017-08-19 20:53] LABS: FERRITIN 56 NG/ML (26-388)
[2017-08-19] MEDS: LACTIC ACID (AMMONIUM LACTATE) 12% LOTION 225 GM BTL TOPICAL SCH (21:00)
[2017-08-19] MEDS: ATORVASTATIN 40 MG TAB PO SCH (22:50)
[2017-08-19] MEDS: ALBUMIN 5% INJ 250 ML IV SCH (22:50)
[2017-08-20] VITALS (10 sets, daily range): BP systolic 111–143; BP diastolic 56–85; PULSE 63–78; RESP 20–22; TEMP 97.1–97.5; O2SAT 92–96
[2017-08-20] MEDS: ALBUMIN 5% INJ 250 ML IV SCH ×2 (04:36→11:28)
[2017-08-20] MEDS: METOPROLOL TARTRATE 100 MG TAB PO SCH ×3 (04:45→22:29)
[2017-08-20] MEDS: FUROSEMIDE 40 MG/4 ML VIAL IV PUSH SCH ×3 (05:19→23:22)
[2017-08-20 08:12] LABS: AUTOMATED NEUTROPHIL # 7.3 TH/MM3 (1.8-7.7); BASOPHIL % 0.4 % (0.0-2.0); EOSINOPHIL % 0.1 % (0.0-4.0); HEMATOCRIT 26.5 % (39.0-51.0); HEMO FLAGS DIFF FINAL; LYMPH % 3.9 % (9.0-44.0); LYMPHOCYTE # 0.3 TH/MM3 (1.0-4.8); MEAN CELL VOLUME 91.2 FL (80.0-100.0); MEAN CORPUSCULAR HEMOGLOBIN 28.1 PG (27.0-34.0); MEAN CORPUSCULAR HGB CONC 30.8 % (32.0-36.0); MONO % 5.8 % (0.0-8.0); NEUT % 89.8 % (16.0-70.0); PLATELET COUNT 317 TH/MM3 (150-450); RED BLOOD COUNT 2.91 MIL/MM3 (4.50-5.90); RED CELL DISTRIBUTION WIDTH 21.2 % (11.6-17.2); WHITE BLOOD COUNT 8.1 TH/MM3 (4.0-11.0)
[2017-08-20] MEDS: RESP: ALBUTEROL 2.5 MG/IPRATROPIUM 0.5 MG NEB (SCH) NEB ×4 (08:36→22:06)
[2017-08-20 08:51] LABS: BICARBONATE 28.2 MEQ/L (21.0-32.0); DIGOXIN 1.7 NG/ML (0.8-2.0); MAGNESIUM 2.3 MG/DL (1.5-2.5); POTASSIUM 4.7 MEQ/L (3.5-5.1)
[2017-08-20] MEDS: predniSONE 20 MG TAB PO SCH ×2 (09:00→11:28)
[2017-08-20] MEDS ORDERED: PNEUMOCOCCAL POLYVALENT INJ 25 MCG/0.5 ML SYR IM ONE (09:00)
[2017-08-20] MEDS: DILTIAZEM-CD 240 MG CAP ER PO SCH (09:56)
[2017-08-20] MEDS: THIAMINE HCL 100 MG TAB PO SCH (09:56)
[2017-08-20] MEDS: DIGOXIN 0.125 MG TAB PO SCH (09:57)
[2017-08-20] MEDS: PANTOPRAZOLE SOD 40 MG DELAYED RELEASE TAB PO SCH ×2 (09:57→22:29)
[2017-08-20] MEDS: LACTOBACILLUS ACIDOPHILUS TAB PO SCH ×3 (09:57→17:42)
[2017-08-20] MEDS: MULTIVITAMIN TAB PO SCH (09:57)
[2017-08-20] MEDS: TAMSULOSIN HCL 0.4 MG CAP PO SCH (09:57)
[2017-08-20] MEDS: FOLIC ACID 1 MG TAB PO SCH (09:58)
[2017-08-20] MEDS: RIVAROXABAN 15 MG TAB PO SCH (09:58)
[2017-08-20] MEDS: DOCUSATE SODIUM 50 MG/SENNA 8.6 MG TAB PO SCH ×2 (09:58→22:30)
[2017-08-20] MEDS: SODIUM CHLORIDE 0.9% FLUSH 10 ML FLUSH IV FLUSH SCH ×2 (09:59→22:28)
[2017-08-20] MEDS: BUDESONIDE-FORMOTEROL 160/4.5 MCG INHALER INH SCH ×2 (10:01→22:28)
[2017-08-20] MEDS: INSULIN ASPART SUPPLEMENTAL SCALE SQ SCH ×4 (10:02→22:30)
--- NOTE | 2017-08-20 13:10 | HHI.IDPN ---
Subjective Subjective Remarks Patient is a 61-year-old male, morbidly obese, with known COPD, oxygen dependent , scented to the hospital complaining of shortness of breath and increasing lower extremity swelling for about a week. He also started noticing redness on his right leg. Denies any fever or chills or sweats. He has not been having any congestion, cough or sputum production. Denies any chest pain. Patient stated that he has sleep apnea, and was supposed to get a BiPAP machine but I been able to get it. Since admission he has not had any fever. 1 out of the 2 blood culture has MRSA and coag-negative staph. Culture of the wound on the leg has MRSA. Patient states that his breathing has not really improved much. Chest xray on admission is normal. His WBC is mildly elevated at 11,000. Infectious disease consultation is requested to evaluate the patient. Notes reviewed Temps ok Breathing same LE edema better NO new (+) BC Creatinine worse Seen by renal Antibiotics Current Medications Vanco IV intermittently Medications (Trade) Dose Ordered Sig/Delilah Route Start Time Stop Time Status Last Admin (Duoneb Neb) 1 ampule Q4HR WHILE AWAKE NEB NEB 08/17/17 08:00 08/20/17 11:45 (Duoneb Neb) 1 ampule Q2HR NEB PRN NEB 08/16/17 20:15 (NS Flush) 2 ml UNSCH PRN IV FLUSH 08/16/17 20:15 08/17/17 06:00 (NS Flush) 2 ml BID IV FLUSH 08/16/17 21:00 08/20/17 09:59 (Zofran Inj) 4 mg Q6H PRN IVP 08/16/17 20:15 (Tylenol) 650 mg Q6H PRN PO 08/16/17 20:15 ([place] 5-325 Mg) 1 tab Q4H PRN PO 08/16/17 20:15 08/17/17 14:28 (Morphine Inj) 2 mg Q3H PRN IV PUSH 08/16/17 20:15 (Coco-Colace) 1 tab BID PO 08/16/17 21:00 08/20/17 09:58 (Milk Of Magnesia Liq) 30 ml Q12H PRN PO 08/16/17 20:15 (Senokot) 17.2 mg Q12H PRN PO 08/16/17 20:15 (Dulcolax Supp) 10 mg DAILY PRN RECTAL 08/16/17 20:15 (Lactulose Liq) 30 ml DAILY PRN PO 08/16/17 20:15 (Lipitor) 40 mg HS PO 08/16/17 21:00 08/19/17 22:50 (Symbicort 160-4.5 Mcg Inh) 2 puff Q12HR INH 08/16/17 21:00 08/20/17 10:01 (Lanoxin) 0.125 mg DAILY PO 08/17/17 09:00 Future hold 08/20/17 09:57 (Lopressor) 100 mg Q8H PO 08/16/17 21:00 08/20/17 04:45 (Protonix) 40 mg Q12HR PO 08/16/17 21:00 08/20/17 09:57 (Xarelto) 15 mg DAILY PO 08/17/17 09:00 08/20/17 09:58 (Ativan Inj) 1 mg Q2H PRN IV PUSH 08/16/17 20:45 Pharmacy Profile Note 0 ml @ 0 mls/hr UNSCH OTHER 08/17/17 12:00 (Lactinex) 1 tab TID PO 08/17/17 13:00 08/20/17 09:57 (D50w (Vial) Inj) 50 ml UNSCH PRN IV PUSH 08/17/17 12:15 (Glucagon Inj) 1 mg UNSCH PRN OTHER 08/17/17 12:15 (NovoLOG SUPPLEMENTAL SCALE) 1 ACHS SLIDING SCALE SQ 08/17/17 17:00 08/20/17 12:18 (Romazicon Inj) 0.2 mg Q1M PRN IV PUSH 08/17/17 12:45 (Ativan) 1 mg Q4H PRN PO 08/17/17 12:45 08/19/17 18:28 (Ativan Inj) 1 mg Q4H PRN IV PUSH 08/17/17 12:45 (Ativan) 2 mg Q2H PRN PO 08/17/17 12:45 (Ativan Inj) 2 mg Q2H PRN IV PUSH 08/17/17 12:45 (Ativan Inj) 2 mg Q1H PRN IV PUSH 08/17/17 12:45 (Ativan Inj) 2 mg Q15M PRN IV PUSH 08/17/17 12:45 (Vitamin B1) 100 mg DAILY PO 08/18/17 09:00 08/20/17 09:56 (Folate) 1 mg DAILY PO 08/18/17 09:00 08/20/17 09:58 (Theragran) 1 tab DAILY PO 08/18/17 09:00 08/20/17 09:57 (Cardizem Cd) 240 mg DAILY PO 08/19/17 09:00 08/20/17 09:56 (Lac-Hydrin 12% Lotion) 1 applic BID TOPICAL 08/19/17 21:00 08/19/17 21:00 (Deltasone) 40 mg DAILY PO 08/20/17 09:00 (Flomax) 0.4 mg DAILY PO 08/20/17 09:00 08/20/17 09:57 Albumin Human 250 ml @ 250 mls/hr Q8H IV 08/19/17 20:00 08/20/17 11:28 (Lasix Inj) 40 mg Q8H IV PUSH 08/20/17 05:00 08/20/17 05:19 Lines PIV Past Medical History HTN, A. fib on Xarelto CHF (Echo 02/03/17 w/ EF 65%) COPD CAD Past Surgical History Appendectomy Cardiac Ablation Tonsillectomy Allergies: Coded Allergies: No Known Allergies (Unverified Allergy, Unknown, 08/16/17) Objective . Vital Signs Date Time Temp Pulse Resp B/P (MAP) Pulse Ox O2 Delivery O2 Flow Rate FiO2 08/20/17 08:39 95 08/20/17 08:00 97.5 71 20 118/57 (77) 93 08/20/17 04:40 97.3 73 20 143/85 (104) 95 08/20/17 04:00 78 08/20/17 00:00 63 08/19/17 23:25 97.1 66 20 131/70 (90) 93 08/19/17 21:44 97.3 66 22 108/70 (83) 94 08/19/17 21:37 92 Nasal Cannula 2.00 08/19/17 16:40 98.6 60 24 106/60 (75) 92 08/19/17 16:00 55 . Laboratory Tests Test 08/19/17 05:46 08/20/17 07:45 White Blood Count 11.3 TH/MM3 8.1 TH/MM3 Red Blood Count 2.75 MIL/MM3 2.91 MIL/MM3 Hemoglobin 7.9 GM/DL 8.1 GM/DL Hematocrit 24.8 % 26.5 % Mean Corpuscular Volume 90.1 FL 91.2 FL Mean Corpuscular Hemoglobin 28.7 PG 28.1 PG Mean Corpuscular Hemoglobin Concent 31.8 % 30.8 % Red Cell Distribution Width 21.8 % 21.2 % Platelet Count 278 TH/MM3 317 TH/MM3 Mean Platelet Volume 8.4 FL 8.0 FL Neutrophils (%) (Auto) 90.9 % 89.8 % Lymphocytes (%) (Auto) 4.0 % 3.9 % Monocytes (%) (Auto) 4.8 % 5.8 % Eosinophils (%) (Auto) 0.1 % 0.1 % Basophils (%) (Auto) 0.2 % 0.4 % Neutrophils # (Auto) 10.3 TH/MM3 7.3 TH/MM3 Lymphocytes # (Auto) 0.5 TH/MM3 0.3 TH/MM3 Monocytes # (Auto) 0.5 TH/MM3 0.5 TH/MM3 Eosinophils # (Auto) 0.0 TH/MM3 0.0 TH/MM3 Basophils # (Auto) 0.0 TH/MM3 0.0 TH/MM3 CBC Comment DIFF FINAL DIFF FINAL Differential Comment Laboratory Tests Test 08/19/17 05:46 08/19/17 20:00 08/20/17 07:45 Blood Urea Nitrogen 62 MG/DL 79 MG/DL Creatinine 3.01 MG/DL 3.09 MG/DL Random Glucose 175 MG/DL 189 MG/DL Total Protein 6.6 GM/DL 6.6 GM/DL Albumin 3.0 GM/DL 2.9 GM/DL Calcium Level 8.6 MG/DL 8.8 MG/DL Phosphorus Level 5.5 MG/DL 5.5 MG/DL Magnesium Level 2.2 MG/DL 2.3 MG/DL Alkaline Phosphatase 206 U/L 236 U/L Aspartate Amino Transf (AST/SGOT) 21 U/L 17 U/L Alanine Aminotransferase (ALT/SGPT) 29 U/L 30 U/L Total Bilirubin 0.5 MG/DL 0.6 MG/DL Sodium Level 134 MEQ/L 136 MEQ/L Potassium Level 4.9 MEQ/L 4.7 MEQ/L Chloride Level 99 MEQ/L 101 MEQ/L Carbon Dioxide Level 28.7 MEQ/L 28.2 MEQ/L Anion Gap 6 MEQ/L 7 MEQ/L Estimat Glomerular Filtration Rate 21 ML/MIN 21 ML/MIN Iron Level 18 MCG/DL Total Iron Binding Capacity 412 MCG/DL Percent Iron Saturation 4.4 % Ferritin 56 NG/ML Direct Bilirubin 0.3 MG/DL Indirect Bilirubin 0.3 MG/DL 25-Hydroxy Vitamin D Total 24.8 ng/ML Parathyroid Hormone (Intact) 107.0 PG/ML Imaging Abdomen Ultrasound 08/19/17 0000 Signed Impressions: Service Date/Time: Saturday, August 19, 2017 19:16 - CONCLUSION: 1. Enlarged heterogeneous fatty liver. 2. Contracted thick-walled, gallbladder without pericholecystic fluid or sonographic Richmond's sign. 3. Mild splenomegaly. 4. Limited visualization of the pancreas, abdominal aorta and inferior vena cava due to shadowing bowel gas and body habitus. Stevan Fuentes MD Chest X-Ray 08/16/17 1823 Signed Impressions: Service Date/Time: Wednesday, August 16, 2017 18:41 - CONCLUSION: 1. No acute abnormality or significant interval change. Ollie Moran MD Physical Exam GENERAL: awake and alert, not in respiratory distress. SKIN: Cool and dry. No generalized rash, no ecchymoses and no evidence of embolic lesions. HEAD: Atraumatic. Normocephalic. No temporal wasting, or tenderness. EYES: [place] conjunctiva. No petechia or hemorrhage. Pupils equal, round and reactive to light. Extraocular movements full and intact. No scleral icterus. EARS, NOSE AND THROAT: Nose without bleeding or purulent nasal discharge. No sinus tenderness. Mucous membranes pink and moist. No oral lesions noted. NECK: Trachea midline. Neck is obese. Supple and not tender, no meningeal signs CARDIOVASCULAR: Regular rate and rhythm. No murmurs, rubs or gallops heard RESPIRATORY: Clear to auscultation. Breath sounds equal bilaterally. No rales , wheezing or rhonchi. Decreased at bases ABDOMEN: Obese, limited exam due to size. Bowel sounds present and normoactive. No guarding. No rebound. EXTREMITIES: No clubbing, cyanosis. Has cobblestone texture of both legs, and tree bark texture in medial thigh jeremiah worse on R than on L, has superficial very small wounds on both anterior leg with serous drainage, no purulence. RLE is larger compared to the LLE, but both are big and swollen. Minimal erythema noted on R leg. No calf tenderness. Well perfused and warm. NEUROLOGICAL: Awake and alert. Cranial nerves grossly intact. Motor grossly within normal limits. PSYCHIATRIC: Normal affect, calm and cooperative. LINE: No evidence of infection Assessment & Plan Remarks IMPRESSION Chronic BLE edema, presented with some cellulitis on his R leg, which has improved markedly One (+) BC with MRSA and Coag Neg Staphe, 1 out of 2, ?real, or contaminant and he is just colonized with MRSA on his skin COPD, DENIS Morbid obesity ?Pulmonary HTN due to sleep apnea and resulting BLE edema CKD, worse RECOMMENDATION Continue IV Vanco for now Follow BC If no other (+) BC and he is ready for D/C from his pulmonary standpoint, will give him po Levaquin to complete his cellulitis Rx Monitor progress Evelin Valencia MD Aug 20, 2017 13:10
[2017-08-20] MEDS ORDERED: PHARMACY ORDERED LAB ONE (14:45)
--- NOTE | 2017-08-20 17:36 | HHI.NPPN ---
Subjective History of Present Illness The patient is a 61 yo [place] male who presented to the ED on 08/16 with complaints of SOB and worsening LE edema. He has had multiple admissions to this facility since April and seems to be all from the same complaints. Has known CKD with previous baseline SCr of 1.6-1.9, but has had periodic spikes. His most recent admission was 07/26/15 thru 07/29 for COPD exacerbation. His D/C SCr was 2.08 on 07/29. He denies any recent abx use. Denies NSAID use. Uses Lasix 40mg BID at home, but has had decrease in UOP over the past few weeks. Is a heavy drinker of 5-7 drinks daily. Also admits marijuana use, but no other illicits. PMHx includes atrial fibrillation with ablation attempts x3, HTN, morbid obesity, CHF with EF of 65%, venous stasis, LE cellulitis, hyponatremia, & COPD. Is currently being treated for LE cellulitis. Was on vancomycin and ID has changed to po Levaquin. Initial BCx positive for MRSA, but ID feels his skin is colonized as repeat BCx negative. 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 been marginal as per RN Interval History Pt sitting up in chair on nebulizer treatment. Overall says he feels about the same as yesterday. Breathing mildly improved Review of Systems Respiratory Lungs: SOB Cardiovascular Cardiac: Edema Objective Data Data Vital Signs Date Time Temp Pulse Resp B/P (MAP) Pulse Ox O2 Delivery O2 Flow Rate FiO2 08/20/17 12:00 97.1 75 20 131/63 (85) 96 08/20/17 08:39 95 08/20/17 08:00 97.5 71 20 118/57 (77) 93 08/20/17 04:40 97.3 73 20 143/85 (104) 95 08/20/17 04:00 78 08/20/17 00:00 63 08/19/17 23:25 97.1 66 20 131/70 (90) 93 08/19/17 21:44 97.3 66 22 108/70 (83) 94 08/19/17 21:37 92 Nasal Cannula 2.00 -: 08/20/17 0745 08/20/17 0745 Imaging Last Impressions Abdomen Ultrasound 08/19/17 0000 Signed Impressions: Service Date/Time: Saturday, August 19, 2017 19:16 - CONCLUSION: 1. Enlarged heterogeneous fatty liver. 2. Contracted thick-walled, gallbladder without pericholecystic fluid or sonographic Richmond's sign. 3. Mild splenomegaly. 4. Limited visualization of the pancreas, abdominal aorta and inferior vena cava due to shadowing bowel gas and body habitus. Stevan Fuentes MD Chest X-Ray 08/16/17 1823 Signed Impressions: Service Date/Time: Wednesday, August 16, 2017 18:41 - CONCLUSION: 1. No acute abnormality or significant interval change. Ollie Moran MD Medication Review Current Medications Medications (Trade) Dose Ordered Sig/Delilah Route Start Time Stop Time Status Last Admin (Duoneb Neb) 1 ampule Q4HR WHILE AWAKE NEB NEB 08/17/17 08:00 08/20/17 16:06 (Duoneb Neb) 1 ampule Q2HR NEB PRN NEB 08/16/17 20:15 (NS Flush) 2 ml UNSCH PRN IV FLUSH 08/16/17 20:15 08/17/17 06:00 (NS Flush) 2 ml BID IV FLUSH 08/16/17 21:00 08/20/17 09:59 (Zofran Inj) 4 mg Q6H PRN IVP 08/16/17 20:15 (Tylenol) 650 mg Q6H PRN PO 08/16/17 20:15 ([place] 5-325 Mg) 1 tab Q4H PRN PO 08/16/17 20:15 08/17/17 14:28 (Morphine Inj) 2 mg Q3H PRN IV PUSH 08/16/17 20:15 (Coco-Colace) 1 tab BID PO 08/16/17 21:00 08/20/17 09:58 (Milk Of Magnesia Liq) 30 ml Q12H PRN PO 08/16/17 20:15 (Senokot) 17.2 mg Q12H PRN PO 08/16/17 20:15 (Dulcolax Supp) 10 mg DAILY PRN RECTAL 08/16/17 20:15 (Lactulose Liq) 30 ml DAILY PRN PO 08/16/17 20:15 (Lipitor) 40 mg HS PO 08/16/17 21:00 08/19/17 22:50 (Symbicort 160-4.5 Mcg Inh) 2 puff Q12HR INH 08/16/17 21:00 08/20/17 10:01 (Lanoxin) 0.125 mg DAILY PO 08/17/17 09:00 Future hold 08/20/17 09:57 (Lopressor) 100 mg Q8H PO 08/16/17 21:00 08/20/17 14:01 (Protonix) 40 mg Q12HR PO 08/16/17 21:00 08/20/17 09:57 (Xarelto) 15 mg DAILY PO 08/17/17 09:00 08/20/17 09:58 (Ativan Inj) 1 mg Q2H PRN IV PUSH 08/16/17 20:45 Pharmacy Profile Note 0 ml @ 0 mls/hr UNSCH OTHER 08/17/17 12:00 (Lactinex) 1 tab TID PO 08/17/17 13:00 08/20/17 14:01 (D50w (Vial) Inj) 50 ml UNSCH PRN IV PUSH 08/17/17 12:15 (Glucagon Inj) 1 mg UNSCH PRN OTHER 08/17/17 12:15 (NovoLOG SUPPLEMENTAL SCALE) 1 ACHS SLIDING SCALE SQ 08/17/17 17:00 08/20/17 12:18 (Romazicon Inj) 0.2 mg Q1M PRN IV PUSH 08/17/17 12:45 (Ativan) 1 mg Q4H PRN PO 08/17/17 12:45 08/19/17 18:28 (Ativan Inj) 1 mg Q4H PRN IV PUSH 08/17/17 12:45 (Ativan) 2 mg Q2H PRN PO 08/17/17 12:45 (Ativan Inj) 2 mg Q2H PRN IV PUSH 08/17/17 12:45 (Ativan Inj) 2 mg Q1H PRN IV PUSH 08/17/17 12:45 (Ativan Inj) 2 mg Q15M PRN IV PUSH 08/17/17 12:45 (Vitamin B1) 100 mg DAILY PO 08/18/17 09:00 08/20/17 09:56 (Folate) 1 mg DAILY PO 08/18/17 09:00 08/20/17 09:58 (Theragran) 1 tab DAILY PO 08/18/17 09:00 08/20/17 09:57 (Cardizem Cd) 240 mg DAILY PO 08/19/17 09:00 08/20/17 09:56 (Lac-Hydrin 12% Lotion) 1 applic BID TOPICAL 08/19/17 21:00 08/19/17 21:00 (Deltasone) 40 mg DAILY PO 08/20/17 09:00 (Flomax) 0.4 mg DAILY PO 08/20/17 09:00 08/20/17 09:57 Albumin Human 250 ml @ 250 mls/hr Q8H IV 08/19/17 20:00 08/20/17 11:28 (Lasix Inj) 40 mg Q8H IV PUSH 08/20/17 05:00 08/20/17 14:01 Physical Exam General Appearance: Comfortable Throat Throat Exam: Oral Mucosa [place] & Moist Neck Neck Exam: Neck Supple, Trachea Midline Pulmonary Resp Exam: Diminished Breath Sounds Cardiology CV Exam: Regular, Normal Sinus Rhythm Gastrointestinal/Abdomen GI Exam: Distended GI Remarks Obese. Still has abdominal wall edema Integumentary Skin Exam: Warm Extremeties Extremities Exam: Moderate Edema (Improved slightly since yesterday, but still significant), Pitting Edema Neurologic Neuro Exam: Alert, Awake Psychiatric Psych Exam: Appropriate Responses Assessment/Plan Problem List: (1) Acute on chronic kidney failure ICD Codes: N17.9 - Acute kidney failure, unspecified; N18.9 - Chronic kidney disease, unspecified Plan: Baseline SCr 1.6-1.9 Renal functions stable Still requiring aggressive diuresis. D/C albumin US report reviewed. Will continue to follow renal functions. Remains to be seen if renal functions will improve. Medications should be adjusted for the patient's renal decline. Avoid nephrotoxins including iodinated contrast dyes and NSAIDs. Avoid gadolinium when eGFR <30. (2) Edema ICD Codes: R60.9 - Edema, unspecified Plan: As above CXR reviewed from 08/16 showing no overt failure Diuretic adjustment as above (3) Cellulitis, leg ICD Codes: L03.119 - Cellulitis of unspecified part of limb Status: Acute Plan: Mgmt as per ID Vanc D/C'd. (4) Anemia ICD Codes: D64.9 - Anemia, unspecified Status: Acute Plan: Fe stores low. Will start on po iron. Pending FOBT (5) Hyponatremia ICD Codes: E87.1 - Hypo-osmolality and hyponatremia Status: Acute Plan: Resolved Likely related to hypervolemia as well as EtOH abuse. (6) Secondary hyperparathyroidism ICD Codes: N25.81 - Secondary hyperparathyroidism of renal origin Plan: With underlying vitamin D deficiency. Start Cholecalciferol 2000IU once daily (7) Hyperphosphatemia ICD Codes: E83.39 - Other disorders of phosphorus metabolism Plan: Likely related to CORIN Will place of dietary restrictions. Will start on phosphate binder if continues to rise. Problem Qualifiers (1) Cellulitis, leg: Qualified Codes: L03.115 - Cellulitis of right lower limb Zaina Barger Aug 20, 2017 17:36
[2017-08-20] MEDS: LORazepam 1 MG TAB PO PRN ×2 (17:39→17:41)
[2017-08-20] MEDS: LACTIC ACID (AMMONIUM LACTATE) 12% LOTION 225 GM BTL TOPICAL SCH ×2 (17:41→22:30)
[2017-08-20] MEDS ORDERED: CHLOROTHIAZIDE SOD 500 MG VIAL IV ONE (18:00)
--- NOTE | 2017-08-20 19:07 | HHI.PR ---
Subjective Remarks Denies cp/sob. afebrile. Objective Vitals Vital Signs Date Time Temp Pulse Resp B/P (MAP) Pulse Ox O2 Delivery O2 Flow Rate FiO2 08/20/17 16:00 97.2 63 20 111/56 (74) 93 08/20/17 12:00 97.1 75 20 131/63 (85) 96 08/20/17 08:39 95 08/20/17 08:00 97.5 71 20 118/57 (77) 93 08/20/17 04:40 97.3 73 20 143/85 (104) 95 08/20/17 04:00 78 08/20/17 00:00 63 08/19/17 23:25 97.1 66 20 131/70 (90) 93 08/19/17 21:44 97.3 66 22 108/70 (83) 94 08/19/17 21:37 92 Nasal Cannula 2.00 I/O 08/19/17 08/19/17 08/19/17 08/20/17 08/20/17 08/20/17 07:00 15:00 23:00 07:00 15:00 23:00 Intake Total 1202 ml 750 ml 720 ml Output Total 200 ml 550 ml 600 ml 1150 ml Balance -200 ml 652 ml 150 ml -430 ml Intake Oral 682 ml 0 ml 720 ml IV Total 520 ml 750 ml Output Urine Total 200 ml 550 ml 600 ml 1150 ml # Voids 3 # Bowel Movements 1 1 0 0 Result Diagram: 08/20/17 0745 08/20/17 0745 Imaging Last Impressions Abdomen Ultrasound 08/19/17 0000 Signed Impressions: Service Date/Time: Saturday, August 19, 2017 19:16 - CONCLUSION: 1. Enlarged heterogeneous fatty liver. 2. Contracted thick-walled, gallbladder without pericholecystic fluid or sonographic Richmond's sign. 3. Mild splenomegaly. 4. Limited visualization of the pancreas, abdominal aorta and inferior vena cava due to shadowing bowel gas and body habitus. Stevan Fuentes MD Chest X-Ray 08/16/171822 Signed Impressions: Service Date/Time: Wednesday, August 16, 2017 18:41 - CONCLUSION: 1. No acute abnormality or significant interval change. Ollie Moran MD Objective Remarks GENERAL: Well-nourished, well-developed obese patient in NAD. Awake and alert. Sitting up in bedside chair. SKIN: Warm and dry. 2+ pitting edema standing up into abdomen. HEAD: Normocephalic. Atraumatic. EYES: EOMI. No scleral icterus. No injection or drainage. ENT: No nasal bleeding or discharge. Mucous membranes pink and moist. NECK: Trachea midline. CARDIOVASCULAR: Regular rate and rhythm. S1, S2 noted. No murmur appreciated. RESPIRATORY: Nonlabored. Diminished but clear to auscultation. Breath sounds equal bilaterally. GASTROINTESTINAL: Abdomen soft, non-tender, nondistended. Normoactive bowel sounds x4. MUSCULOSKELETAL: No obvious deformities. Extremities without clubbing or cyanosis. 4+ brawny edema BLE with active weeping yellowish discharge from RLE. NEUROLOGICAL: Awake and alert. Able to move all extremities. Nonfocal. Normal speech. PSYCHIATRIC: Appropriate mood and affect; insight and judgment normal. Procedures NONE Medications and IVs Current Medications Medications (Trade) Dose Ordered Sig/Delilah Route Start Time Stop Time Status Last Admin (Duoneb Neb) 1 ampule Q2HR NEB PRN NEB 08/16/17 20:15 08/21/17 08:10 (NS Flush) 2 ml UNSCH PRN IV FLUSH 08/16/17 20:15 08/17/17 06:00 (NS Flush) 2 ml BID IV FLUSH 08/16/17 21:00 08/20/17 22:28 (Zofran Inj) 4 mg Q6H PRN IVP 08/16/17 20:15 (Tylenol) 650 mg Q6H PRN PO 08/16/17 20:15 ([place] 5-325 Mg) 1 tab Q4H PRN PO 08/16/17 20:15 08/17/17 14:28 (Morphine Inj) 2 mg Q3H PRN IV PUSH 08/16/17 20:15 (Coco-Colace) 1 tab BID PO 08/16/17 21:00 08/20/17 22:30 (Milk Of Magnesia Liq) 30 ml Q12H PRN PO 08/16/17 20:15 (Senokot) 17.2 mg Q12H PRN PO 08/16/17 20:15 (Dulcolax Supp) 10 mg DAILY PRN RECTAL 08/16/17 20:15 (Lactulose Liq) 30 ml DAILY PRN PO 08/16/17 20:15 (Lipitor) 40 mg HS PO 08/16/17 21:00 08/20/17 22:29 (Symbicort 160-4.5 Mcg Inh) 2 puff Q12HR INH 08/16/17 21:00 08/20/17 22:28 (Lanoxin) 0.125 mg DAILY PO 08/17/17 09:00 Future hold 08/20/17 09:57 (Lopressor) 100 mg Q8H PO 08/16/17 21:00 08/21/17 06:09 (Protonix) 40 mg Q12HR PO 08/16/17 21:00 08/20/17 22:29 (Xarelto) 15 mg DAILY PO 08/17/17 09:00 08/20/17 09:58 (Ativan Inj) 1 mg Q2H PRN IV PUSH 08/16/17 20:45 Pharmacy Profile Note 0 ml @ 0 mls/hr UNSCH OTHER 08/17/17 12:00 (Lactinex) 1 tab TID PO 08/17/17 13:00 08/20/17 17:42 (D50w (Vial) Inj) 50 ml UNSCH PRN IV PUSH 08/17/17 12:15 (Glucagon Inj) 1 mg UNSCH PRN OTHER 08/17/17 12:15 (NovoLOG SUPPLEMENTAL SCALE) 1 ACHS SLIDING SCALE SQ 08/17/17 17:00 08/20/17 22:30 (Romazicon Inj) 0.2 mg Q1M PRN IV PUSH 08/17/17 12:45 (Ativan) 1 mg Q4H PRN PO 08/17/17 12:45 08/20/17 17:41 (Ativan Inj) 1 mg Q4H PRN IV PUSH 08/17/17 12:45 (Ativan) 2 mg Q2H PRN PO 08/17/17 12:45 (Ativan Inj) 2 mg Q2H PRN IV PUSH 08/17/17 12:45 (Ativan Inj) 2 mg Q1H PRN IV PUSH 08/17/17 12:45 (Ativan Inj) 2 mg Q15M PRN IV PUSH 08/17/17 12:45 (Vitamin B1) 100 mg DAILY PO 08/18/17 09:00 08/20/17 09:56 (Folate) 1 mg DAILY PO 08/18/17 09:00 08/20/17 09:58 (Theragran) 1 tab DAILY PO 08/18/17 09:00 08/20/17 09:57 (Cardizem Cd) 240 mg DAILY PO 08/19/17 09:00 08/20/17 09:56 (Lac-Hydrin 12% Lotion) 1 applic BID TOPICAL 08/19/17 21:00 08/20/17 22:30 (Deltasone) 40 mg DAILY PO 08/20/17 09:00 (Flomax) 0.4 mg DAILY PO 08/20/17 09:00 08/20/17 09:57 (Lasix Inj) 40 mg Q8H IV PUSH 08/20/17 05:00 08/21/17 06:09 (Vitamin D3) 2,000 units DAILY PO 08/21/17 09:00 A/P Problem List: (1) COPD (chronic obstructive pulmonary disease) ICD Code: J44.9 - Chronic obstructive pulmonary disease, unspecified Status: Chronic (2) CHF (congestive heart failure) ICD Code: I50.9 - Heart failure, unspecified Status: Chronic (3) A-fib ICD Code: I48.91 - Unspecified atrial fibrillation Status: Chronic (4) Renal insufficiency ICD Code: N28.9 - Disorder of kidney and ureter, unspecified Status: Acute (5) Cellulitis, leg ICD Code: L03.119 - Cellulitis of unspecified part of limb Status: Acute (6) Anemia ICD Code: D64.9 - Anemia, unspecified Status: Acute Assessment and Plan 61-year-old male with past medical history significant for atrial fibrillation on Xarelto, COPD, CHF, chronic renal insufficiency admitted with right lower extremity cellulitis, bilateral lower extremity edema and increased shortness of breath. COPD, acute on chronic exacerbation - CXR personally reviewed showing no acute findings - Continue on scheduled DuoNeb - Symbicort 160/4.5 mcg 2 puffs BID - Treated with IV methylprednisolone 40 mg every 6, on po taper, continue - Continue supplemental oxygen as needed - Continue to monitor respiratory status, currently 92% on 2L NC CHF, acute on chronic, diastolic - Echocardiogram completed 02/03/17 with EF of 65% - BNP 308 - Continue with diuresis on IV Lasix. Monitor electrolytes - monitor I&Os - fluid/salt restricted diet CORIN on CKD stage 3, underlying nephrosclerosis - Worsening kidney function while on IV diuresis. Consult nephrology, appreciate assistance. - baseline appears to be around 1.5-1.6. Now 3.09. - Renal US 07/27/17 normal. Obtain urine sodium and creatinine. - Strict I&Os - Avoid nephrotoxic agents - repeat BMP in am Hyperphosphatemia - Secondary to acute renal failure - Repeat phosphorus level in a.m. Hyponatremia, chronic -- Due to hypervolemic hyponatremia. Resolved. - Continue to monitor BMP. RLE cellulitis Chronic bilateral venous status dermatitis - Wound culture in the system 02/09/17 positive for MRSA, sensitive to Vancomycin - Continue on Vancomycin. Pharmacy to dose. - ID consulted, appreciate assistance - Urine cx (+)MRSA. Blood culture positive for MRSA and Coag Neg Staph - possible colonization/contaminant - Wound care consulted, Please cleanse wounds to BLE with normal saline and cover with optifoam AG gentle and secure with rolled gauze and tape.Please change dressing every 2 days or PRN if saturated or dislodged. Please apply shaving cream to BLE 3 times a week and leave in place for 10 minutes before removing with warm water and wash cloths. Please dry legs thoroughly.Before applying lotion or dressings. Lac Hydrin BID. - Elevated BLE when able Atrial fibrillation, chronic - rate controlled - Continue on Diltiazem CD 360mg daily and Lopressor 100mg po q8h daily - digoxin level normal. Resume home Digoxin 0.125mg daily. Monitor daily. - Continue on home dose of Xarelto DENIS - Non CPAP compliant Anemia, normocytic, chronic - Suspect secondary to anemia of chronic disease - stable - Continue to monitor CBC as indicated Hyperglycemia - No reported history of diabetes - Exacerbated by IV steroids - hemoglobin A1c level 5.6 - Accu-Cheks, insulin sliding scale Dysuria Suspect BPH - initial UA negative. Will repeat. - patient reports hesitancy and slow stream. - Continue Flomax Hx of alcohol use/abuse - [facility] protocol - Thiamine/folic acid/MVI daily - No evidence of alcohol withdrawal. GERD/gastritis - Continue pantoprazole DVT prophylaxis - Patients on Xarelto Problem Qualifiers (1) Cellulitis, leg: Qualified Codes: L03.115 - Cellulitis of right lower limb Canales Lucio,Doug MD Aug 20, 2017 19:07
[2017-08-20] MEDS: ATORVASTATIN 40 MG TAB PO SCH (22:29)
[2017-08-21] VITALS (13 sets, daily range): BP systolic 116–155; BP diastolic 54–76; PULSE 69–78; RESP 22–24; TEMP 97.1–97.8; O2SAT 94–99
[2017-08-21] MEDS: FUROSEMIDE 40 MG/4 ML VIAL IV PUSH SCH ×3 (06:09→21:38)
[2017-08-21] MEDS: METOPROLOL TARTRATE 100 MG TAB PO SCH ×3 (06:09→21:38)
[2017-08-21 08:29] LABS: HEMATOCRIT 27.6 % (39.0-51.0); MEAN CELL VOLUME 91.8 FL (80.0-100.0); MEAN CORPUSCULAR HEMOGLOBIN 28.8 PG (27.0-34.0); MEAN CORPUSCULAR HGB CONC 31.4 % (32.0-36.0); PLATELET COUNT 338 TH/MM3 (150-450); RED BLOOD COUNT 3.01 MIL/MM3 (4.50-5.90); RED CELL DISTRIBUTION WIDTH 21.3 % (11.6-17.2); REVIEW FLAG FINAL; WHITE BLOOD COUNT 8.6 TH/MM3 (4.0-11.0)
[2017-08-21 09:00] LABS: BICARBONATE 29.7 MEQ/L (21.0-32.0); POTASSIUM 4.3 MEQ/L (3.5-5.1)
[2017-08-21] MEDS: MULTIVITAMIN TAB PO SCH (09:09)
[2017-08-21] MEDS: THIAMINE HCL 100 MG TAB PO SCH (09:09)
[2017-08-21] MEDS: predniSONE 20 MG TAB PO SCH (09:09)
[2017-08-21] MEDS: CHOLECALCIFEROL (VIT D3) 1000 UNIT TAB PO SCH (09:09)
[2017-08-21] MEDS: FOLIC ACID 1 MG TAB PO SCH (09:09)
[2017-08-21] MEDS: PANTOPRAZOLE SOD 40 MG DELAYED RELEASE TAB PO SCH ×2 (09:09→21:38)
[2017-08-21] MEDS: TAMSULOSIN HCL 0.4 MG CAP PO SCH (09:10)
[2017-08-21] MEDS: DOCUSATE SODIUM 50 MG/SENNA 8.6 MG TAB PO SCH ×2 (09:10→21:38)
[2017-08-21] MEDS: LACTOBACILLUS ACIDOPHILUS TAB PO SCH ×3 (09:10→18:43)
[2017-08-21] MEDS: RIVAROXABAN 15 MG TAB PO SCH (09:10)
[2017-08-21] MEDS: DIGOXIN 0.125 MG TAB PO SCH (09:10)
[2017-08-21] MEDS: DILTIAZEM-CD 240 MG CAP ER PO SCH (09:11)
[2017-08-21] MEDS: SODIUM CHLORIDE 0.9% FLUSH 10 ML FLUSH IV FLUSH SCH ×2 (09:11→21:39)
[2017-08-21] MEDS: LACTIC ACID (AMMONIUM LACTATE) 12% LOTION 225 GM BTL TOPICAL SCH ×2 (09:12→21:38)
[2017-08-21] MEDS: INSULIN ASPART SUPPLEMENTAL SCALE SQ SCH ×4 (09:12→21:39)
[2017-08-21] MEDS: BUDESONIDE-FORMOTEROL 160/4.5 MCG INHALER INH SCH ×2 (09:12→21:40)
[2017-08-21] MEDS ORDERED: VANCOMYCIN INJ 2,000 MG in SODIUM CHLORID 0.9% 500 ML INJ 500 ML IV ONE (12:00)
--- NOTE | 2017-08-21 12:30 | HHI.NPPN ---
Subjective History of Present Illness The patient is a 61 yo [place] male who presented to the ED on 08/16 with complaints of SOB and worsening LE edema. He has had multiple admissions to this facility since April and seems to be all from the same complaints. Has known CKD with previous baseline SCr of 1.6-1.9, but has had periodic spikes. His most recent admission was 07/26/15 thru 07/29 for COPD exacerbation. His D/C SCr was 2.08 on 07/29. He denies any recent abx use. Denies NSAID use. Uses Lasix 40mg BID at home, but has had decrease in UOP over the past few weeks. Is a heavy drinker of 5-7 drinks daily. Also admits marijuana use, but no other illicits. PMHx includes atrial fibrillation with ablation attempts x3, HTN, morbid obesity, CHF with EF of 65%, venous stasis, LE cellulitis, hyponatremia, & COPD. Is currently being treated for LE cellulitis. Was on vancomycin and ID has changed to po Levaquin. Initial BCx positive for MRSA, but ID feels his skin is colonized as repeat BCx negative. 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 been marginal as per RN Interval History Patient sitting in a chair resting comfortably with no verbal complaints today. Review of Systems Respiratory Lungs: SOB Cardiovascular Cardiac: Edema Objective Data Data Vital Signs Date Time Temp Pulse Resp B/P (MAP) Pulse Ox O2 Delivery O2 Flow Rate FiO2 08/21/17 08:10 97 Nasal Cannula 3.00 08/21/17 08:08 97.2 69 22 116/68 (84) 98 08/21/17 04:42 97.2 77 24 148/70 (96) 99 08/21/17 00:04 97.1 69 22 127/70 (89) 99 08/20/17 22:10 92 Nasal Cannula 3.00 08/20/17 20:38 97.1 73 22 122/60 (80) 93 08/20/17 20:00 69 08/20/17 16:00 97.2 63 20 111/56 (74) 93 08/20/17 16:00 69 -: 08/21/17 0809 08/21/17 0809 Physical Exam General Appearance: Comfortable Throat Throat Exam: Oral Mucosa [place] & Moist Neck Neck Exam: Neck Supple, Trachea Midline Pulmonary Resp Exam: Diminished Breath Sounds Cardiology CV Exam: Regular, Normal Sinus Rhythm Gastrointestinal/Abdomen GI Exam: Distended Integumentary Skin Exam: Warm Extremeties Extremities Exam: Moderate Edema (Improved slightly since yesterday, but still significant), Pitting Edema Neurologic Neuro Exam: Alert, Awake Psychiatric Psych Exam: Appropriate Responses Assessment/Plan Discussed Condition With: Patient Problem List: (1) Acute on chronic kidney failure ICD Codes: N17.9 - Acute kidney failure, unspecified; N18.9 - Chronic kidney disease, unspecified Plan: Creatinine slightly improved today. Patient still has significant fluid retention however. Continue diuresis with monitoring of volume status and indices. Medications should be adjusted for the patient's renal decline. Avoid nephrotoxins including iodinated contrast dyes and NSAIDs. Avoid gadolinium when eGFR <30. (2) Edema ICD Codes: R60.9 - Edema, unspecified Status: Chronic Plan: Probably multifactorial secondary to renal insufficiency as well as COPD/ sleep apnea with pulmonary hypertension noted on previous echocardiogram this year. (3) Anemia ICD Codes: D64.9 - Anemia, unspecified Status: Acute Plan: Fe stores low. Will start on po iron. Pending FOBT (4) Secondary hyperparathyroidism ICD Codes: N25.81 - Secondary hyperparathyroidism of renal origin Plan: Continue Cholecalciferol 2000IU once daily (5) Hyperphosphatemia ICD Codes: E83.39 - Other disorders of phosphorus metabolism Plan: Should therapy with PhosLo. (6) Sleep apnea ICD Codes: G47.30 - Sleep apnea, unspecified Plan: Suspected by pulmonary during recent previous admission. Patient was advised to have a sleep study performed however he apparently did not and has not followed up with pulmonary since his previous discharge. 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 Potential benefits of treatment of sleep apnea if indeed he does have same were reviewed with him. I will defer to primary regarding any further intervention at this time. (7) Cellulitis, leg ICD Codes: L03.119 - Cellulitis of unspecified part of limb Status: Acute Plan: Mgmt as per ID Vanc D/C'd. (8) Fatty liver, alcoholic ICD Codes: K70.0 - Alcoholic fatty liver Status: Chronic Plan: Noted on ultrasound report. Patient was advised to discontinue alcohol use and discuss same with primary care physician. Defer further follow-up and management of this problem to primary care. Patient advised fatty liver can be precursor of cirrhosis with its associated consequences. Plan Total time spent in direct patient care 38 minutes. Problem Qualifiers (1) Cellulitis, leg: Qualified Codes: L03.115 - Cellulitis of right lower limb Mian De Oliveira MD Aug 21, 2017 12:30
--- NOTE | 2017-08-21 12:52 | HHI.PR ---
Subjective Remarks Patient denies cp/sob at baseline. Denies fevers or chills. good urine output Objective Vitals Vital Signs Date Time Temp Pulse Resp B/P (MAP) Pulse Ox O2 Delivery O2 Flow Rate FiO2 08/21/17 08:10 97 Nasal Cannula 3.00 08/21/17 08:08 97.2 69 22 116/68 (84) 98 08/21/17 04:42 97.2 77 24 148/70 (96) 99 08/21/17 00:04 97.1 69 22 127/70 (89) 99 08/20/17 22:10 92 Nasal Cannula 3.00 08/20/17 20:38 97.1 73 22 122/60 (80) 93 08/20/17 20:00 69 08/20/17 16:00 97.2 63 20 111/56 (74) 93 08/20/17 16:00 69 I/O 08/20/17 08/20/17 08/20/17 08/21/17 08/21/17 08/21/17 07:00 15:00 23:00 07:00 15:00 23:00 Intake Total 750 ml 720 ml 480 ml Output Total 600 ml 1150 ml 1500 ml Balance 150 ml -430 ml -1020 ml Intake Oral 0 ml 720 ml 480 ml IV Total 750 ml Output Urine Total 600 ml 1150 ml 1500 ml # Bowel Movements 0 0 0 Result Diagram: 08/21/17 0809 08/21/17 0809 Imaging Last Impressions Abdomen Ultrasound 08/19/17 0000 Signed Impressions: Service Date/Time: Saturday, August 19, 2017 19:16 - CONCLUSION: 1. Enlarged heterogeneous fatty liver. 2. Contracted thick-walled, gallbladder without pericholecystic fluid or sonographic Richmond's sign. 3. Mild splenomegaly. 4. Limited visualization of the pancreas, abdominal aorta and inferior vena cava due to shadowing bowel gas and body habitus. Stevan Fuentes MD Chest X-Ray 08/16/171822 Signed Impressions: Service Date/Time: Wednesday, August 16, 2017 18:41 - CONCLUSION: 1. No acute abnormality or significant interval change. Ollie Moran MD Objective Remarks GENERAL: Well-nourished, well-developed obese patient in NAD. Awake and alert. Sitting up in bedside chair. SKIN: Warm and dry. 2+ pitting edema standing up into abdomen. HEAD: Normocephalic. Atraumatic. EYES: EOMI. No scleral icterus. No injection or drainage. ENT: No nasal bleeding or discharge. Mucous membranes pink and moist. NECK: Trachea midline. CARDIOVASCULAR: Regular rate and rhythm. S1, S2 noted. No murmur appreciated. RESPIRATORY: Nonlabored. Diminished but clear to auscultation. Breath sounds equal bilaterally. GASTROINTESTINAL: Abdomen soft, non-tender, nondistended. Normoactive bowel sounds x4. MUSCULOSKELETAL: No obvious deformities. Extremities without clubbing or cyanosis. 4+ brawny edema BLE with active weeping yellowish discharge from RLE. NEUROLOGICAL: Awake and alert. Able to move all extremities. Nonfocal. Normal speech. PSYCHIATRIC: Appropriate mood and affect; insight and judgment normal. Procedures NONE Medications and IVs Current Medications Medications (Trade) Dose Ordered Sig/Delilah Route Start Time Stop Time Status Last Admin (Duoneb Neb) 1 ampule Q2HR NEB PRN NEB 08/16/17 20:15 08/21/17 08:10 (NS Flush) 2 ml UNSCH PRN IV FLUSH 08/16/17 20:15 08/17/17 06:00 (NS Flush) 2 ml BID IV FLUSH 08/16/17 21:00 08/21/17 09:11 (Zofran Inj) 4 mg Q6H PRN IVP 08/16/17 20:15 (Tylenol) 650 mg Q6H PRN PO 08/16/17 20:15 ([place] 5-325 Mg) 1 tab Q4H PRN PO 08/16/17 20:15 08/17/17 14:28 (Morphine Inj) 2 mg Q3H PRN IV PUSH 08/16/17 20:15 (Coco-Colace) 1 tab BID PO 08/16/17 21:00 08/21/17 09:10 (Milk Of Magnesia Liq) 30 ml Q12H PRN PO 08/16/17 20:15 (Senokot) 17.2 mg Q12H PRN PO 08/16/17 20:15 (Dulcolax Supp) 10 mg DAILY PRN RECTAL 08/16/17 20:15 (Lactulose Liq) 30 ml DAILY PRN PO 08/16/17 20:15 (Lipitor) 40 mg HS PO 08/16/17 21:00 08/20/17 22:29 (Symbicort 160-4.5 Mcg Inh) 2 puff Q12HR INH 08/16/17 21:00 08/21/17 09:12 (Lanoxin) 0.125 mg DAILY PO 08/17/17 09:00 Future hold 08/21/17 09:10 (Lopressor) 100 mg Q8H PO 08/16/17 21:00 08/21/17 06:09 (Protonix) 40 mg Q12HR PO 08/16/17 21:00 08/21/17 09:09 (Xarelto) 15 mg DAILY PO 08/17/17 09:00 08/21/17 09:10 (Ativan Inj) 1 mg Q2H PRN IV PUSH 08/16/17 20:45 Pharmacy Profile Note 0 ml @ 0 mls/hr UNSCH OTHER 08/17/17 12:00 (Lactinex) 1 tab TID PO 08/17/17 13:00 08/21/17 09:10 (D50w (Vial) Inj) 50 ml UNSCH PRN IV PUSH 08/17/17 12:15 (Glucagon Inj) 1 mg UNSCH PRN OTHER 08/17/17 12:15 (NovoLOG SUPPLEMENTAL SCALE) 1 ACHS SLIDING SCALE SQ 08/17/17 17:00 08/21/17 09:12 (Romazicon Inj) 0.2 mg Q1M PRN IV PUSH 08/17/17 12:45 (Ativan) 1 mg Q4H PRN PO 08/17/17 12:45 08/20/17 17:41 (Ativan Inj) 1 mg Q4H PRN IV PUSH 08/17/17 12:45 (Ativan) 2 mg Q2H PRN PO 08/17/17 12:45 (Ativan Inj) 2 mg Q2H PRN IV PUSH 08/17/17 12:45 (Ativan Inj) 2 mg Q1H PRN IV PUSH 08/17/17 12:45 (Ativan Inj) 2 mg Q15M PRN IV PUSH 08/17/17 12:45 (Vitamin B1) 100 mg DAILY PO 08/18/17 09:00 08/21/17 09:09 (Folate) 1 mg DAILY PO 08/18/17 09:00 08/21/17 09:09 (Theragran) 1 tab DAILY PO 08/18/17 09:00 08/21/17 09:09 (Cardizem Cd) 240 mg DAILY PO 08/19/17 09:00 08/21/17 09:11 (Lac-Hydrin 12% Lotion) 1 applic BID TOPICAL 08/19/17 21:00 08/21/17 09:12 (Deltasone) 40 mg DAILY PO 08/20/17 09:00 08/21/17 09:09 (Flomax) 0.4 mg DAILY PO 08/20/17 09:00 08/21/17 09:10 (Lasix Inj) 40 mg Q8H IV PUSH 08/20/17 05:00 08/21/17 06:09 (Vitamin D3) 2,000 units DAILY PO 08/21/17 09:00 08/21/17 09:09 Vancomycin HCl 2000 mg/Sodium Chloride 520 ml @ 250 mls/hr ONCE ONCE IV 08/21/17 12:00 08/21/17 14:04 (Diuril Inj) 250 mg BID IV 08/21/17 12:30 08/22/17 01:00 UNV (Phoslo) 667 mg TID PO 08/21/17 13:00 UNV Urinary Catheter: No Vascular Central Line Catheter: No A/P Problem List: (1) COPD (chronic obstructive pulmonary disease) ICD Code: J44.9 - Chronic obstructive pulmonary disease, unspecified Status: Chronic (2) CHF (congestive heart failure) ICD Code: I50.9 - Heart failure, unspecified Status: Chronic (3) A-fib ICD Code: I48.91 - Unspecified atrial fibrillation Status: Chronic (4) Renal insufficiency ICD Code: N28.9 - Disorder of kidney and ureter, unspecified Status: Acute (5) Cellulitis, leg ICD Code: L03.119 - Cellulitis of unspecified part of limb Status: Acute (6) Anemia ICD Code: D64.9 - Anemia, unspecified Status: Acute Assessment and Plan 61-year-old male with past medical history significant for atrial fibrillation on Xarelto, COPD, CHF, chronic renal insufficiency admitted with right lower extremity cellulitis, bilateral lower extremity edema and increased shortness of breath. COPD, acute on chronic exacerbation - CXR personally reviewed showing no acute findings - Continue on scheduled DuoNeb - Symbicort 160/4.5 mcg 2 puffs BID - Treated with IV methylprednisolone 40 mg every 6 - Dc'd 08/17 - Continue supplemental oxygen as needed - Continue to monitor respiratory status, currently 97% on 3 liters nasal canula. CHF, acute on chronic, diastolic - Echocardiogram completed 02/03/17 with EF of 65% - BNP 308 - Continue with diuresis on IV Lasix. Monitor electrolytes - monitor I&Os - fluid/salt restricted diet CORIN on CKD stage 3, underlying nephrosclerosis - Initially kidney function was worsening on IV lasix and Nephrology consulted. - baseline appears to be around 1.5-1.6. - Renal US 07/27/17 normal. - Strict I&Os - Avoid nephrotoxic agents - repeat BMP in am - Avoid Gadolinium with GDFR < 30. - 08/21 Creatinine now trending down from 3.09 down to 2.88. Continue Lasix 40 mg IV every 8 hours, albumin administration as per nephrology. Hyperphosphatemia - Secondary to acute renal failure - 08/21 phosphorus levels trending up and now 6.0. I will start PhosLo. Hyponatremia, chronic -- Due to hypervolemic hyponatremia. Resolved. - Continue to monitor BMP. RLE cellulitis Chronic bilateral venous status dermatitis - Wound culture in the system 02/09/17 positive for MRSA, sensitive to Vancomycin - Continue on Vancomycin. Pharmacy to dose. - ID consulted, appreciate assistance - Urine cx (+)MRSA. Blood culture positive for MRSA and Coag Neg Staph - possible colonization/contaminant - Wound care consulted, Please cleanse wounds to BLE with normal saline and cover with optifoam AG gentle and secure with rolled gauze and tape.Please change dressing every 2 days or PRN if saturated or dislodged. Please apply shaving cream to BLE 3 times a week and leave in place for 10 minutes before removing with warm water and wash cloths. Please dry legs thoroughly.Before applying lotion or dressings. Lac Hydrin BID. - Elevated BLE when able - 08/21 discussed the case with Dr. Valencia from ID. continue IV vancomycin for now and with the patient is ready to be discharge then switched to by mouth Levaquin 7 more days. Atrial fibrillation, chronic - rate controlled - Continue on Diltiazem CD 360mg daily and Lopressor 100mg po q8h daily - digoxin level normal. Resume home Digoxin 0.125mg daily. Monitor daily. - Continue on home dose of Xarelto DENIS - Non CPAP compliant Anemia, normocytic, chronic - Suspect secondary to anemia of chronic disease - stable - Continue to monitor CBC as indicated Hyperglycemia - No reported history of diabetes - Exacerbated by IV steroids - hemoglobin A1c level 5.6 - Accu-Cheks, insulin sliding scale Dysuria Suspect BPH - initial UA negative. Will repeat. - patient reports hesitancy and slow stream. - Continue Flomax Hx of alcohol use/abuse - CIWA protocol - Thiamine/folic acid/MVI daily - No evidence of alcohol withdrawal. GERD/gastritis - Continue pantoprazole DVT prophylaxis - Patients on Xarelto Discharge Planning Discharge pending nephrology clearance. As per PT evaluation the patient needs rehabilitation. Case management to assist in placement. Problem Qualifiers (1) Cellulitis, leg: Qualified Codes: L03.115 - Cellulitis of right lower limb Doug Dowell MD Aug 21, 2017 12:52
--- NOTE | 2017-08-21 13:24 | HHI.IDPN ---
Subjective Subjective Remarks Patient is a 61-year-old male, morbidly obese, with known COPD, oxygen dependent , scented to the hospital complaining of shortness of breath and increasing lower extremity swelling for about a week. He also started noticing redness on his right leg. Denies any fever or chills or sweats. He has not been having any congestion, cough or sputum production. Denies any chest pain. Patient stated that he has sleep apnea, and was supposed to get a BiPAP machine but I been able to get it. Since admission he has not had any fever. 1 out of the 2 blood culture has MRSA and coag-negative staph. Culture of the wound on the leg has MRSA. Patient states that his breathing has not really improved much. Chest xray on admission is normal. His WBC is mildly elevated at 11,000. Infectious disease consultation is requested to evaluate the patient. Notes reviewed Temps ok Breathing a little LE edema same Creatinine better NO new (+) BC Antibiotics Current Medications Vanco IV intermittently Medications (Trade) Dose Ordered Sig/Delilah Route Start Time Stop Time Status Last Admin (Duoneb Neb) 1 ampule Q2HR NEB PRN NEB 08/16/17 20:15 08/21/17 08:10 (NS Flush) 2 ml UNSCH PRN IV FLUSH 08/16/17 20:15 08/17/17 06:00 (NS Flush) 2 ml BID IV FLUSH 08/16/17 21:00 08/21/17 09:11 (Zofran Inj) 4 mg Q6H PRN IVP 08/16/17 20:15 (Tylenol) 650 mg Q6H PRN PO 08/16/17 20:15 ([place] 5-325 Mg) 1 tab Q4H PRN PO 08/16/17 20:15 08/17/17 14:28 (Morphine Inj) 2 mg Q3H PRN IV PUSH 08/16/17 20:15 (Coco-Colace) 1 tab BID PO 08/16/17 21:00 08/21/17 09:10 (Milk Of Magnesia Liq) 30 ml Q12H PRN PO 08/16/17 20:15 (Senokot) 17.2 mg Q12H PRN PO 08/16/17 20:15 (Dulcolax Supp) 10 mg DAILY PRN RECTAL 08/16/17 20:15 (Lactulose Liq) 30 ml DAILY PRN PO 08/16/17 20:15 (Lipitor) 40 mg HS PO 08/16/17 21:00 08/20/17 22:29 (Symbicort 160-4.5 Mcg Inh) 2 puff Q12HR INH 08/16/17 21:00 08/21/17 09:12 (Lanoxin) 0.125 mg DAILY PO 08/17/17 09:00 Future hold 08/21/17 09:10 (Lopressor) 100 mg Q8H PO 08/16/17 21:00 08/21/17 06:09 (Protonix) 40 mg Q12HR PO 08/16/17 21:00 08/21/17 09:09 (Xarelto) 15 mg DAILY PO 08/17/17 09:00 08/21/17 09:10 (Ativan Inj) 1 mg Q2H PRN IV PUSH 08/16/17 20:45 Pharmacy Profile Note 0 ml @ 0 mls/hr UNSCH OTHER 08/17/17 12:00 (Lactinex) 1 tab TID PO 08/17/17 13:00 08/21/17 09:10 (D50w (Vial) Inj) 50 ml UNSCH PRN IV PUSH 08/17/17 12:15 (Glucagon Inj) 1 mg UNSCH PRN OTHER 08/17/17 12:15 (NovoLOG SUPPLEMENTAL SCALE) 1 ACHS SLIDING SCALE SQ 08/17/17 17:00 08/21/17 09:12 (Romazicon Inj) 0.2 mg Q1M PRN IV PUSH 08/17/17 12:45 (Ativan) 1 mg Q4H PRN PO 08/17/17 12:45 08/20/17 17:41 (Ativan Inj) 1 mg Q4H PRN IV PUSH 08/17/17 12:45 (Ativan) 2 mg Q2H PRN PO 08/17/17 12:45 (Ativan Inj) 2 mg Q2H PRN IV PUSH 08/17/17 12:45 (Ativan Inj) 2 mg Q1H PRN IV PUSH 08/17/17 12:45 (Ativan Inj) 2 mg Q15M PRN IV PUSH 08/17/17 12:45 (Vitamin B1) 100 mg DAILY PO 08/18/17 09:00 08/21/17 09:09 (Folate) 1 mg DAILY PO 08/18/17 09:00 08/21/17 09:09 (Theragran) 1 tab DAILY PO 08/18/17 09:00 08/21/17 09:09 (Cardizem Cd) 240 mg DAILY PO 08/19/17 09:00 08/21/17 09:11 (Lac-Hydrin 12% Lotion) 1 applic BID TOPICAL 08/19/17 21:00 08/21/17 09:12 (Deltasone) 40 mg DAILY PO 08/20/17 09:00 08/21/17 09:09 (Flomax) 0.4 mg DAILY PO 08/20/17 09:00 08/21/17 09:10 (Lasix Inj) 40 mg Q8H IV PUSH 08/20/17 05:00 08/21/17 06:09 (Vitamin D3) 2,000 units DAILY PO 08/21/17 09:00 08/21/17 09:09 Vancomycin HCl 2000 mg/Sodium Chloride 520 ml @ 250 mls/hr ONCE ONCE IV 08/21/17 12:00 08/21/17 14:04 (Diuril Inj) 250 mg BID IV 08/21/17 12:30 08/22/17 01:00 UNV (Phoslo) 667 mg TID PO 08/21/17 13:00 UNV Lines PIV Past Medical History HTN, A. fib on Xarelto CHF (Echo 02/03/17 w/ EF 65%) COPD CAD Past Surgical History Appendectomy Cardiac Ablation Tonsillectomy Allergies: Coded Allergies: No Known Allergies (Unverified Allergy, Unknown, 08/16/17) Objective . Vital Signs Date Time Temp Pulse Resp B/P (MAP) Pulse Ox O2 Delivery O2 Flow Rate FiO2 08/21/17 08:10 97 Nasal Cannula 3.00 08/21/17 08:08 97.2 69 22 116/68 (84) 98 08/21/17 04:42 97.2 77 24 148/70 (96) 99 08/21/17 00:04 97.1 69 22 127/70 (89) 99 08/20/17 22:10 92 Nasal Cannula 3.00 08/20/17 20:38 97.1 73 22 122/60 (80) 93 08/20/17 20:00 69 08/20/17 16:00 97.2 63 20 111/56 (74) 93 08/20/17 16:00 69 . Laboratory Tests Test 08/20/17 07:45 08/21/17 08:09 White Blood Count 8.1 TH/MM3 8.6 TH/MM3 Red Blood Count 2.91 MIL/MM3 3.01 MIL/MM3 Hemoglobin 8.1 GM/DL 8.7 GM/DL Hematocrit 26.5 % 27.6 % Mean Corpuscular Volume 91.2 FL 91.8 FL Mean Corpuscular Hemoglobin 28.1 PG 28.8 PG Mean Corpuscular Hemoglobin Concent 30.8 % 31.4 % Red Cell Distribution Width 21.2 % 21.3 % Platelet Count 317 TH/MM3 338 TH/MM3 Mean Platelet Volume 8.0 FL 7.9 FL Neutrophils (%) (Auto) 89.8 % Lymphocytes (%) (Auto) 3.9 % Monocytes (%) (Auto) 5.8 % Eosinophils (%) (Auto) 0.1 % Basophils (%) (Auto) 0.4 % Neutrophils # (Auto) 7.3 TH/MM3 Lymphocytes # (Auto) 0.3 TH/MM3 Monocytes # (Auto) 0.5 TH/MM3 Eosinophils # (Auto) 0.0 TH/MM3 Basophils # (Auto) 0.0 TH/MM3 CBC Comment DIFF FINAL Differential Comment Laboratory Tests Test 08/19/17 20:00 08/20/17 07:45 08/21/17 08:09 Iron Level 18 MCG/DL Total Iron Binding Capacity 412 MCG/DL Percent Iron Saturation 4.4 % Ferritin 56 NG/ML Total Bilirubin 0.6 MG/DL Direct Bilirubin 0.3 MG/DL Indirect Bilirubin 0.3 MG/DL Aspartate Amino Transf (AST/SGOT) 17 U/L Alanine Aminotransferase (ALT/SGPT) 30 U/L Alkaline Phosphatase 236 U/L Total Protein 6.6 GM/DL Albumin 2.9 GM/DL 3.6 GM/DL 25-Hydroxy Vitamin D Total 24.8 ng/ML Parathyroid Hormone (Intact) 107.0 PG/ML Blood Urea Nitrogen 79 MG/DL 87 MG/DL Creatinine 3.09 MG/DL 2.88 MG/DL Random Glucose 189 MG/DL 141 MG/DL Calcium Level 8.8 MG/DL 8.8 MG/DL Phosphorus Level 5.5 MG/DL 6.0 MG/DL Magnesium Level 2.3 MG/DL Sodium Level 136 MEQ/L 136 MEQ/L Potassium Level 4.7 MEQ/L 4.3 MEQ/L Chloride Level 101 MEQ/L 98 MEQ/L Carbon Dioxide Level 28.2 MEQ/L 29.7 MEQ/L Anion Gap 7 MEQ/L 8 MEQ/L Estimat Glomerular Filtration Rate 21 ML/MIN 22 ML/MIN Imaging Abdomen Ultrasound 08/19/17 0000 Signed Impressions: Service Date/Time: Saturday, August 19, 2017 19:16 - CONCLUSION: 1. Enlarged heterogeneous fatty liver. 2. Contracted thick-walled, gallbladder without pericholecystic fluid or sonographic Richmond's sign. 3. Mild splenomegaly. 4. Limited visualization of the pancreas, abdominal aorta and inferior vena cava due to shadowing bowel gas and body habitus. Stevan Fuentes MD Chest X-Ray 08/16/17 1823 Signed Impressions: Service Date/Time: Wednesday, August 16, 2017 18:41 - CONCLUSION: 1. No acute abnormality or significant interval change. Ollie Moran MD Physical Exam GENERAL: awake and alert, not in respiratory distress. Up in chair SKIN: Cool and dry. No generalized rash HEAD: Atraumatic. Normocephalic. No temporal wasting, or tenderness. EYES: [place] conjunctiva. No petechia or hemorrhage. Pupils equal, round and reactive to light. Extraocular movements full and intact. No scleral icterus. EARS, NOSE AND THROAT: Nose without bleeding or purulent nasal discharge. No sinus tenderness. Mucous membranes pink and moist. No oral lesions noted. NECK: Trachea midline. Neck is obese. Supple and not tender, no meningeal signs CARDIOVASCULAR: Regular rate and rhythm. No murmurs, rubs or gallops heard RESPIRATORY: Clear to auscultation. Breath sounds equal bilaterally. No rales , wheezing or rhonchi. Decreased at bases ABDOMEN: Obese, limited exam due to size. Bowel sounds present and normoactive. No guarding. No rebound. EXTREMITIES: No clubbing, cyanosis. Has cobblestone texture of both legs, and tree bark texture in medial thigh jeremiah worse on R than on L, has superficial very small wounds on both anterior leg with serous drainage, no purulence. RLE is larger compared to the LLE, but both are big and swollen. Minimal erythema noted on R leg. No calf tenderness. NEUROLOGICAL: Grossly non-focal PSYCHIATRIC: Normal affect, calm and cooperative. LINE: No evidence of infection Assessment & Plan Remarks IMPRESSION Chronic BLE edema, presented with some cellulitis on his R leg, which has improved markedly One (+) BC with MRSA and Coag Neg Staphe, 1 out of 2, ?real, or contaminant and he is just colonized with MRSA on his skin COPD, DENIS Morbid obesity ?Pulmonary HTN due to sleep apnea and resulting BLE edema CKD, worse RECOMMENDATION Continue IV Vanco for now Follow BC If no other (+) BC and he is ready for D/C from his pulmonary standpoint, will give him po Levaquin to complete his cellulitis Rx - give another 7 days oral Abx on D/C: Levaquin Monitor progress D/W Dr Canales (HEPAS) Evelin Valencia MD Aug 21, 2017 13:24
[2017-08-21] MEDS: CALCIUM ACETATE 667 MG CAP PO SCH ×3 (14:09→18:43)
[2017-08-21] MEDS: CHLOROTHIAZIDE SOD 500 MG VIAL IV SCH ×2 (15:00→21:55)
[2017-08-21] MEDS: LORazepam 1 MG TAB PO PRN (18:43)
[2017-08-21] MEDS: ATORVASTATIN 40 MG TAB PO SCH (21:38)
[2017-08-22] VITALS (10 sets, daily range): BP systolic 114–133; BP diastolic 55–78; PULSE 67–86; RESP 19–22; TEMP 97.1–98.2; O2SAT 96–100
[2017-08-22] MEDS: METOPROLOL TARTRATE 100 MG TAB PO SCH ×3 (06:00→21:00)
[2017-08-22] MEDS: FUROSEMIDE 40 MG/4 ML VIAL IV PUSH SCH ×3 (06:01→21:00)
[2017-08-22] MEDS: INSULIN ASPART SUPPLEMENTAL SCALE SQ SCH ×4 (08:00→21:26)
[2017-08-22] MEDS: FOLIC ACID 1 MG TAB PO SCH (08:36)
[2017-08-22] MEDS: CHOLECALCIFEROL (VIT D3) 1000 UNIT TAB PO SCH (08:37)
[2017-08-22] MEDS: RIVAROXABAN 15 MG TAB PO SCH (08:37)
[2017-08-22] MEDS: DOCUSATE SODIUM 50 MG/SENNA 8.6 MG TAB PO SCH ×2 (08:37→21:00)
[2017-08-22] MEDS: CALCIUM ACETATE 667 MG CAP PO SCH ×6 (08:37→16:40)
[2017-08-22] MEDS: DIGOXIN 0.125 MG TAB PO SCH (08:37)
[2017-08-22] MEDS: DILTIAZEM-CD 240 MG CAP ER PO SCH (08:37)
[2017-08-22] MEDS: TAMSULOSIN HCL 0.4 MG CAP PO SCH (08:37)
[2017-08-22] MEDS: THIAMINE HCL 100 MG TAB PO SCH (08:37)
[2017-08-22] MEDS: PANTOPRAZOLE SOD 40 MG DELAYED RELEASE TAB PO SCH ×2 (08:37→21:00)
[2017-08-22] MEDS: MULTIVITAMIN TAB PO SCH (08:37)
[2017-08-22] MEDS: LACTOBACILLUS ACIDOPHILUS TAB PO SCH ×3 (08:37→16:40)
[2017-08-22] MEDS: predniSONE 20 MG TAB PO SCH (08:38)
[2017-08-22] MEDS: BUDESONIDE-FORMOTEROL 160/4.5 MCG INHALER INH SCH ×2 (08:40→21:25)
[2017-08-22] MEDS: SODIUM CHLORIDE 0.9% FLUSH 10 ML FLUSH IV FLUSH SCH ×2 (08:40→21:00)
[2017-08-22] MEDS: LACTIC ACID (AMMONIUM LACTATE) 12% LOTION 225 GM BTL TOPICAL SCH ×2 (08:40→21:00)
[2017-08-22 09:34] LABS: BICARBONATE 34.1 MEQ/L (21.0-32.0); POTASSIUM 4.3 MEQ/L (3.5-5.1)
--- NOTE | 2017-08-22 10:36 | HHI.NPPN ---
Subjective History of Present Illness The patient is a 61 yo [place] male who presented to the ED on 08/16 with complaints of SOB and worsening LE edema. He has had multiple admissions to this facility since April and seems to be all from the same complaints. Has known CKD with previous baseline SCr of 1.6-1.9, but has had periodic spikes. His most recent admission was 07/26/15 thru 07/29 for COPD exacerbation. His D/C SCr was 2.08 on 07/29. He denies any recent abx use. Denies NSAID use. Uses Lasix 40mg BID at home, but has had decrease in UOP over the past few weeks. Is a heavy drinker of 5-7 drinks daily. Also admits marijuana use, but no other illicits. PMHx includes atrial fibrillation with ablation attempts x3, HTN, morbid obesity, CHF with EF of 65%, venous stasis, LE cellulitis, hyponatremia, & COPD. Is currently being treated for LE cellulitis. Was on vancomycin and ID has changed to po Levaquin. Initial BCx positive for MRSA, but ID feels his skin is colonized as repeat BCx negative. 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 been marginal as per RN Interval History Pt overall says he is feeling the same. Review of Systems Respiratory Lungs: SOB Cardiovascular Cardiac: Edema Objective Data Data Vital Signs Date Time Temp Pulse Resp B/P (MAP) Pulse Ox O2 Delivery O2 Flow Rate FiO2 08/22/17 10:08 76 08/22/17 08:09 97.3 75 20 130/75 (93) 98 08/22/17 05:34 97.1 83 22 130/78 (95) 96 08/22/17 04:01 86 08/21/17 23:08 97.2 75 22 143/65 (91) 94 08/21/17 20:42 97.5 74 22 155/76 (102) 95 08/21/17 20:00 69 08/21/17 17:52 95 Nasal Cannula 3.00 08/21/17 16:26 75 08/21/17 16:08 97.3 78 22 136/63 (87) 96 08/21/17 12:08 97.8 75 22 119/54 (75) 95 08/21/17 12:05 74 -: 12/8/17 0809 08/22/17 0905 Imaging Last Impressions Abdomen Ultrasound 08/19/17 0000 Signed Impressions: Service Date/Time: Saturday, August 19, 2017 19:16 - CONCLUSION: 1. Enlarged heterogeneous fatty liver. 2. Contracted thick-walled, gallbladder without pericholecystic fluid or sonographic Richmond's sign. 3. Mild splenomegaly. 4. Limited visualization of the pancreas, abdominal aorta and inferior vena cava due to shadowing bowel gas and body habitus. Stevan Fuentes MD Chest X-Ray 08/16/17 1823 Signed Impressions: Service Date/Time: Wednesday, August 16, 2017 18:41 - CONCLUSION: 1. No acute abnormality or significant interval change. Ollie Moran MD Medication Review Current Medications Medications (Trade) Dose Ordered Sig/Delilah Route Start Time Stop Time Status Last Admin (Duoneb Neb) 1 ampule Q2HR NEB PRN NEB 08/16/17 20:15 08/21/17 08:10 (NS Flush) 2 ml UNSCH PRN IV FLUSH 08/16/17 20:15 08/17/17 06:00 (NS Flush) 2 ml BID IV FLUSH 08/16/17 21:00 08/22/17 08:40 (Zofran Inj) 4 mg Q6H PRN IVP 08/16/17 20:15 (Tylenol) 650 mg Q6H PRN PO 08/16/17 20:15 ([place] 5-325 Mg) 1 tab Q4H PRN PO 08/16/17 20:15 08/17/17 14:28 (Morphine Inj) 2 mg Q3H PRN IV PUSH 08/16/17 20:15 (Coco-Colace) 1 tab BID PO 08/16/17 21:00 08/22/17 08:37 (Milk Of Magnesia Liq) 30 ml Q12H PRN PO 08/16/17 20:15 (Senokot) 17.2 mg Q12H PRN PO 08/16/17 20:15 (Dulcolax Supp) 10 mg DAILY PRN RECTAL 08/16/17 20:15 (Lactulose Liq) 30 ml DAILY PRN PO 08/16/17 20:15 (Lipitor) 40 mg HS PO 08/16/17 21:00 08/21/17 21:38 (Symbicort 160-4.5 Mcg Inh) 2 puff Q12HR INH 08/16/17 21:00 08/22/17 08:40 (Lanoxin) 0.125 mg DAILY PO 08/17/17 09:00 Future hold 08/22/17 08:37 (Lopressor) 100 mg Q8H PO 08/16/17 21:00 08/22/17 06:00 (Protonix) 40 mg Q12HR PO 08/16/17 21:00 08/22/17 08:37 (Xarelto) 15 mg DAILY PO 08/17/17 09:00 08/22/17 08:37 (Ativan Inj) 1 mg Q2H PRN IV PUSH 08/16/17 20:45 Pharmacy Profile Note 0 ml @ 0 mls/hr UNSCH OTHER 08/17/17 12:00 (Lactinex) 1 tab TID PO 08/17/17 13:00 08/22/17 08:37 (D50w (Vial) Inj) 50 ml UNSCH PRN IV PUSH 08/17/17 12:15 (Glucagon Inj) 1 mg UNSCH PRN OTHER 08/17/17 12:15 (NovoLOG SUPPLEMENTAL SCALE) 1 ACHS SLIDING SCALE SQ 08/17/17 17:00 08/21/17 21:39 (Romazicon Inj) 0.2 mg Q1M PRN IV PUSH 08/17/17 12:45 (Ativan) 1 mg Q4H PRN PO 08/17/17 12:45 08/21/17 18:43 (Ativan Inj) 1 mg Q4H PRN IV PUSH 08/17/17 12:45 (Ativan) 2 mg Q2H PRN PO 08/17/17 12:45 (Ativan Inj) 2 mg Q2H PRN IV PUSH 08/17/17 12:45 (Ativan Inj) 2 mg Q1H PRN IV PUSH 08/17/17 12:45 (Ativan Inj) 2 mg Q15M PRN IV PUSH 08/17/17 12:45 (Vitamin B1) 100 mg DAILY PO 08/18/17 09:00 08/22/17 08:37 (Folate) 1 mg DAILY PO 08/18/17 09:00 08/22/17 08:36 (Theragran) 1 tab DAILY PO 08/18/17 09:00 08/22/17 08:37 (Cardizem Cd) 240 mg DAILY PO 08/19/17 09:00 08/22/17 08:37 (Lac-Hydrin 12% Lotion) 1 applic BID TOPICAL 08/19/17 21:00 08/22/17 08:40 (Deltasone) 40 mg DAILY PO 08/20/17 09:00 08/22/17 08:38 (Flomax) 0.4 mg DAILY PO 08/20/17 09:00 08/22/17 08:37 (Lasix Inj) 40 mg Q8H IV PUSH 08/20/17 05:00 08/22/17 06:01 (Vitamin D3) 2,000 units DAILY PO 08/21/17 09:00 08/22/17 08:37 (Diuril Inj) 250 mg BID IV 08/21/17 15:00 08/22/17 14:59 08/21/17 21:55 (Phoslo) 667 mg TID PO 08/21/17 14:00 08/22/17 08:37 (Phoslo) 667 mg TID PO 08/21/17 18:00 08/22/17 09:00 Physical Exam General Appearance: Comfortable Throat Throat Exam: Oral Mucosa [place] & Moist Neck Neck Exam: Neck Supple, Trachea Midline Pulmonary Resp Exam: Diminished Breath Sounds Cardiology CV Exam: Regular, Normal Sinus Rhythm Gastrointestinal/Abdomen GI Exam: Distended GI Remarks Obese. Still has abdominal wall edema Integumentary Skin Exam: Warm Extremeties Extremities Exam: Moderate Edema (Improving slowly. 2+ flanks and BLE extending up to thighs), Pitting Edema Neurologic Neuro Exam: Alert, Awake Psychiatric Psych Exam: Appropriate Responses Assessment/Plan Discussed Condition With: Patient Problem List: (1) Acute on chronic kidney failure ICD Codes: N17.9 - Acute kidney failure, unspecified; N18.9 - Chronic kidney disease, unspecified Plan: Renal functions improving, but is still requiring aggressive parenteral diuretics. Consider decrease of Lasix to q12h tomorrow as he is developing mild contraction alkalosis. Medications should be adjusted for the patient's renal decline. Avoid nephrotoxins including iodinated contrast dyes and NSAIDs. Avoid gadolinium when eGFR <30. (2) Edema ICD Codes: R60.9 - Edema, unspecified Status: Chronic Plan: Probably multifactorial secondary to renal insufficiency as well as COPD/ sleep apnea with pulmonary hypertension noted on previous echocardiogram this year. (3) Anemia ICD Codes: D64.9 - Anemia, unspecified Status: Acute Plan: Fe stores low. Will start on po iron. Pending FOBT (4) Secondary hyperparathyroidism ICD Codes: N25.81 - Secondary hyperparathyroidism of renal origin Plan: Continue Cholecalciferol 2000IU once daily (5) Hyperphosphatemia ICD Codes: E83.39 - Other disorders of phosphorus metabolism Plan: Continue on PhosLo. (6) Sleep apnea ICD Codes: G47.30 - Sleep apnea, unspecified Plan: Suspected by pulmonary during recent previous admission. Patient was advised to have a sleep study performed however he apparently did not and has not followed up with pulmonary since his previous discharge. He was strongly advised to follow-up with his ambulance driver and have the sleep study performed. Potential benefits of treatment of sleep apnea if indeed he does have same were reviewed with him. I will defer to primary regarding any further intervention at this time. (7) Cellulitis, leg ICD Codes: L03.119 - Cellulitis of unspecified part of limb Status: Acute Plan: Mgmt as per ID Vanc D/C'd. (8) Fatty liver, alcoholic ICD Codes: K70.0 - Alcoholic fatty liver Status: Chronic Plan: Noted on ultrasound report. Patient was advised to discontinue alcohol use and discuss same with primary care physician. Defer further follow-up and management of this problem to primary care. Patient advised fatty liver can be precursor of cirrhosis with its associated consequences. Problem Qualifiers (1) Cellulitis, leg: Qualified Codes: L03.115 - Cellulitis of right lower limb Zaina Barger Aug 22, 2017 10:36
[2017-08-22] MEDS: CHLOROTHIAZIDE SOD 500 MG VIAL IV SCH (10:55)
[2017-08-22] MEDS: LORazepam 1 MG TAB PO PRN (12:58)
--- NOTE | 2017-08-22 15:59 | HHI.PR ---
Subjective Remarks Patient seen this morning around 11:30 AM. Denies any chest pain. Reports shortness of breath is at baseline. Says he feels like maybe able to go home in a couple days. Objective Vital Signs Date Time Temp Pulse Resp B/P (MAP) Pulse Ox O2 Delivery O2 Flow Rate FiO2 08/22/17 15:05 76 08/22/17 12:41 74 114/56 (75) 08/22/17 10:57 97.3 80 20 116/55 (75) 98 08/22/17 10:08 76 08/22/17 08:09 97.3 75 20 130/75 (93) 98 08/22/17 08:00 2.00 08/22/17 05:34 97.1 83 22 130/78 (95) 96 08/22/17 04:01 86 08/21/17 23:08 97.2 75 22 143/65 (91) 94 08/21/17 20:42 97.5 74 22 155/76 (102) 95 08/21/17 20:00 69 08/21/17 17:52 95 Nasal Cannula 3.00 08/21/17 16:26 75 08/21/17 16:08 97.3 78 22 136/63 (87) 96 I/O 08/21/17 08/21/17 08/21/17 08/22/17 08/22/17 08/22/17 07:00 15:00 23:00 07:00 15:00 23:00 Intake Total 480 ml 420 ml 240 ml Output Total 1500 ml 2000 ml 2450 ml Balance -1020 ml -1580 ml -2210 ml Intake Oral 480 ml 420 ml 240 ml Output Urine Total 1500 ml 2000 ml 2450 ml # Bowel Movements 0 2 1 Result Diagram: 08/21/17 0809 08/22/17 0905 Objective Remarks GENERAL: Patient sitting up on edge of bed. Appears comfortable. SKIN: Warm and dry. HEAD: Normocephalic. EYES: No scleral icterus. No injection or drainage. NECK: Supple, trachea midline. No JVD. CARDIOVASCULAR: Regular rate and rhythm without murmurs, gallops, or rubs. RESPIRATORY: Breath sounds equal bilaterally. No accessory muscle use. GASTROINTESTINAL: Abdomen soft, non-tender, nondistended. MUSCULOSKELETAL: No cyanosis. +2 bilateral lower extremity edema. Faint erythema bilaterally. BACK: Nontender without obvious deformity. No CVA tenderness. A/P Assessment and Plan 61-year-old male with past medical history significant for atrial fibrillation on Xarelto, COPD, CHF, chronic renal insufficiency admitted with right lower extremity cellulitis, bilateral lower extremity edema and increased shortness of breath. //COPD, acute on chronic exacerbation - CXR personally reviewed showing no acute findings - Continue on scheduled DuoNeb - Symbicort 160/4.5 mcg 2 puffs BID - Treated with IV methylprednisolone 40 mg every 6 - Dc'd 08/17 - Continue supplemental oxygen as needed - Continue to monitor respiratory status, currently 97% on2 liters nasal canula. = 08/22. A stress test improving. 97% on 2 L. Taper prednisone. //CHF, acute on chronic, diastolic - Echocardiogram completed 02/03/17 with EF of 65% - BNP 308 - Continue with diuresis on IV Lasix. Monitor electrolytes - monitor I&Os - fluid/salt restricted diet = Appreciate nephrology assistance. Continue to monitor renal function. //CORIN on CKD stage 3, underlying nephrosclerosis - Initially kidney function was worsening on IV lasix and Nephrology consulted. - baseline appears to be around 1.5-1.6. - Renal US 07/27/17 normal. - Strict I&Os - Avoid nephrotoxic agents - repeat BMP in am - Avoid Gadolinium with GDFR < 30. - 08/21 Creatinine now trending down from 3.09 down to 2.88. Continue Lasix 40 mg IV every 8 hours, albumin administration as per nephrology. = 08/21. Creatinine down to 2.42, BUN still 85. Still tenuous. Continue to monitor fluid status. Appreciate nephrology assistance //Hyperphosphatemia - Secondary to acute renal failure - 08/21 phosphorus levels trending up and now 6.0. Continue on PhosLo. //Hyponatremia, chronic. Resolved currently. -- Due to hypervolemic hyponatremia. Resolved. - Continue to monitor BMP. //RLE cellulitis //Chronic bilateral venous status dermatitis - Wound culture in the system 02/09/17 positive for MRSA, sensitive to Vancomycin - Continue on Vancomycin. Pharmacy to dose. - ID consulted, appreciate assistance - Urine cx (+)MRSA. Blood culture positive for MRSA and Coag Neg Staph - possible colonization/contaminant - Wound care consulted, Please cleanse wounds to BLE with normal saline and cover with optifoam AG gentle and secure with rolled gauze and tape.Please change dressing every 2 days or PRN if saturated or dislodged. Please apply shaving cream to BLE 3 times a week and leave in place for 10 minutes before removing with warm water and wash cloths. Please dry legs thoroughly.Before applying lotion or dressings. Lac Hydrin BID. - Elevated BLE when able - 08/21 discussed the case with Dr. Valencia from ID. continue IV vancomycin for now and with the patient is ready to be discharge then switched to by mouth Levaquin 7 more days. = 08/22. Continue antibiotics as per infectious disease. When ready to be discharged, can go on Levaquin 7 more days. //Atrial fibrillation, chronic - rate controlled - Continue on Diltiazem CD 360mg daily and Lopressor 100mg po q8h daily - digoxin level normal. Resume home Digoxin 0.125mg daily. Monitor daily. - Continue on home dose of Xarelto = . Digoxin level tomorrow. //DENIS - Non CPAP compliant //Anemia, normocytic, chronic - Suspect secondary to anemia of chronic disease - stable - Continue to monitor CBC as indicated Hyperglycemia - No reported history of diabetes - Exacerbated by IV steroids - hemoglobin A1c level 5.6 - Accu-Cheks, insulin sliding scale Dysuria Suspect BPH - initial UA negative. Repeat without signs of infection. Patient denies any dysuria currently. - patient reports hesitancy and slow stream. - Continue Flomax Hx of alcohol use/abuse - CIWA protocol - Thiamine/folic acid/MVI daily - No evidence of alcohol withdrawal. GERD/gastritis - Continue pantoprazole DVT prophylaxis - Patients on Xarelto Discharge Planning Pending nephrology clearance PT recommends rehabilitation. Appreciate case management assistance. Castillo Lorenzo MD Aug 22, 2017 15:59
[2017-08-22] MEDS: ATORVASTATIN 40 MG TAB PO SCH (21:00)
[2017-08-23] VITALS (11 sets, daily range): BP systolic 118–137; BP diastolic 59–78; PULSE 68–87; RESP 19–23; TEMP 97.3–97.6; O2SAT 93–100
[2017-08-23] MEDS: METOPROLOL TARTRATE 100 MG TAB PO SCH ×3 (04:49→20:35)
[2017-08-23] MEDS: FUROSEMIDE 40 MG/4 ML VIAL IV PUSH SCH ×3 (04:50→20:37)
[2017-08-23] MEDS: INSULIN ASPART SUPPLEMENTAL SCALE SQ SCH ×4 (08:00→20:35)
[2017-08-23 08:25] LABS: BICARBONATE 38.3 MEQ/L (21.0-32.0); POTASSIUM 4.2 MEQ/L (3.5-5.1)
[2017-08-23] MEDS: CALCIUM ACETATE 667 MG CAP PO SCH ×3 (08:40→16:13)
[2017-08-23] MEDS: DIGOXIN 0.125 MG TAB PO SCH (08:40)
[2017-08-23] MEDS: RIVAROXABAN 15 MG TAB PO SCH (08:40)
[2017-08-23] MEDS: DOCUSATE SODIUM 50 MG/SENNA 8.6 MG TAB PO SCH ×2 (08:40→20:35)
[2017-08-23] MEDS: DILTIAZEM-CD 240 MG CAP ER PO SCH (08:40)
[2017-08-23] MEDS: MULTIVITAMIN TAB PO SCH (08:40)
[2017-08-23] MEDS: THIAMINE HCL 100 MG TAB PO SCH (08:40)
[2017-08-23] MEDS: TAMSULOSIN HCL 0.4 MG CAP PO SCH (08:40)
[2017-08-23] MEDS: CHOLECALCIFEROL (VIT D3) 1000 UNIT TAB PO SCH (08:40)
[2017-08-23 08:41] LABS: DIGOXIN 1.4 NG/ML (0.8-2.0)
[2017-08-23] MEDS: SODIUM CHLORIDE 0.9% FLUSH 10 ML FLUSH IV FLUSH SCH ×2 (08:41→20:36)
[2017-08-23] MEDS: LACTOBACILLUS ACIDOPHILUS TAB PO SCH ×3 (08:41→16:13)
[2017-08-23] MEDS: FOLIC ACID 1 MG TAB PO SCH (08:41)
[2017-08-23] MEDS: predniSONE 10 MG TAB PO SCH (08:41)
[2017-08-23] MEDS: PANTOPRAZOLE SOD 40 MG DELAYED RELEASE TAB PO SCH ×2 (08:41→20:35)
[2017-08-23] MEDS: LACTIC ACID (AMMONIUM LACTATE) 12% LOTION 225 GM BTL TOPICAL SCH ×2 (08:42→20:37)
[2017-08-23] MEDS: BUDESONIDE-FORMOTEROL 160/4.5 MCG INHALER INH SCH ×2 (08:42→20:37)
[2017-08-23] MEDS ORDERED: acetaZOLAMIDE 125 MG TAB PO ONE (09:30)
[2017-08-23] MEDS ORDERED: PILL SPLITTER OTHER PRN (09:45)
[2017-08-23] MEDS ORDERED: acetaZOLAMIDE 250 MG TAB PO ONE (09:45)
--- NOTE | 2017-08-23 15:27 | HHI.NPPN ---
Subjective History of Present Illness The patient is a 61 yo [place] male who presented to the ED on 08/16 with complaints of SOB and worsening LE edema. He has had multiple admissions to this facility since April and seems to be all from the same complaints. Has known CKD with previous baseline SCr of 1.6-1.9, but has had periodic spikes. His most recent admission was 07/26/15 thru 07/29 for COPD exacerbation. His D/C SCr was 2.08 on 07/29. He denies any recent abx use. Denies NSAID use. Uses Lasix 40mg BID at home, but has had decrease in UOP over the past few weeks. Is a heavy drinker of 5-7 drinks daily. Also admits marijuana use, but no other illicits. PMHx includes atrial fibrillation with ablation attempts x3, HTN, morbid obesity, CHF with EF of 65%, venous stasis, LE cellulitis, hyponatremia, & COPD. Is currently being treated for LE cellulitis. Was on vancomycin and ID has changed to po Levaquin. Initial BCx positive for MRSA, but ID feels his skin is colonized as repeat BCx negative. 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 been marginal as per RN Interval History Patient with no verbal complaints today. Review of Systems Respiratory Lungs: SOB Cardiovascular Cardiac: Edema Objective Data Data Vital Signs Date Time Temp Pulse Resp B/P (MAP) Pulse Ox O2 Delivery O2 Flow Rate FiO2 08/23/17 12:20 87 08/23/17 12:09 97.4 82 20 127/62 (83) 99 08/23/17 09:56 99 Nasal Cannula 3.00 08/23/17 09:27 74 08/23/17 08:09 97.6 68 20 134/72 (92) 100 08/23/17 04:00 97.6 79 23 118/70 (86) 93 08/23/17 04:00 74 08/23/17 01:32 Nasal Cannula 3.00 08/23/17 00:00 83 08/23/17 00:00 97.3 81 21 137/67 (90) 94 08/22/17 20:00 74 08/22/17 20:00 97.5 76 19 133/66 (88) 100 08/22/17 17:29 74 08/22/17 16:09 98.2 67 20 130/61 (84) 100 -: 08/21/17 0809 08/23/17 0658 Physical Exam General Appearance: Comfortable Throat Throat Exam: Oral Mucosa [place] & Moist Neck Neck Exam: Neck Supple, Trachea Midline Pulmonary Resp Exam: Diminished Breath Sounds Cardiology CV Exam: Regular, Normal Sinus Rhythm Gastrointestinal/Abdomen GI Exam: Distended Integumentary Skin Exam: Warm Extremeties Extremities Exam: Moderate Edema (Improving slowly. 2+ flanks and BLE extending up to thighs), Pitting Edema Neurologic Neuro Exam: Alert, Awake Psychiatric Psych Exam: Appropriate Responses Assessment/Plan Discussed Condition With: Patient Problem List: (1) Acute on chronic kidney failure ICD Codes: N17.9 - Acute kidney failure, unspecified; N18.9 - Chronic kidney disease, unspecified Plan: Patient's renal function continues to improve and he is maintaining a fairly good urine output however still has significant fluid retention i.e. edema. Continue furosemide every 8 hourly with a dose of Diamox again today for developing contraction alkalosis. Suspect however the patient's bicarbonate level tends to run higher secondary to compensation required for his pulmonary issues. Possible conversion to by mouth diuretics tomorrow. Medications should be adjusted for the patient's renal decline. Avoid nephrotoxins including iodinated contrast dyes and NSAIDs. Avoid gadolinium when eGFR <30. (2) Edema ICD Codes: R60.9 - Edema, unspecified Status: Chronic Plan: Probably multifactorial secondary to renal insufficiency as well as COPD/ sleep apnea with pulmonary hypertension noted on previous echocardiogram this year. (3) Anemia ICD Codes: D64.9 - Anemia, unspecified Status: Acute Plan: Fe stores low. Will start on po iron. Pending FOBT (4) Secondary hyperparathyroidism ICD Codes: N25.81 - Secondary hyperparathyroidism of renal origin Plan: Continue Cholecalciferol 2000IU once daily (5) Hyperphosphatemia ICD Codes: E83.39 - Other disorders of phosphorus metabolism Plan: Continue on PhosLo. (6) Sleep apnea ICD Codes: G47.30 - Sleep apnea, unspecified Plan: Suspected by pulmonary during recent previous admission. Patient was advised to have a sleep study performed however he apparently did not and has not followed up with pulmonary since his previous discharge. He was strongly advised to follow-up with his vascular specialists and have the sleep study performed. Potential benefits of treatment of sleep apnea if indeed he does have same were reviewed with him. I will defer to primary regarding any further intervention at this time. (7) Cellulitis, leg ICD Codes: L03.119 - Cellulitis of unspecified part of limb Status: Acute Plan: Mgmt as per ID Vanc D/C'd. (8) Fatty liver, alcoholic ICD Codes: K70.0 - Alcoholic fatty liver Status: Chronic Plan: Noted on ultrasound report. Patient was advised to discontinue alcohol use and discuss same with primary care physician. Defer further follow-up and management of this problem to primary care. Patient advised fatty liver can be precursor of cirrhosis with its associated consequences. Problem Qualifiers (1) Cellulitis, leg: Qualified Codes: L03.115 - Cellulitis of right lower limb Mian De Oliveira MD Aug 23, 2017 15:27
[2017-08-23] MEDS: LORazepam 1 MG TAB PO PRN (17:29)
[2017-08-23] MEDS: ATORVASTATIN 40 MG TAB PO SCH (20:36)
--- NOTE | 2017-08-23 20:57 | HHI.PR ---
Subjective Remarks Patient seen this morning. Says he feels well. he says that bilateral lower extremity edema is improving. Denies any chest pain. Reports shortness of breath continues improving. Says he feels like he might be able to leave the hospital tomorrow. Objective Vital Signs Date Time Temp Pulse Resp B/P (MAP) Pulse Ox O2 Delivery O2 Flow Rate FiO2 08/23/17 17:40 99 Nasal Cannula 3.00 08/23/17 16:09 97.6 69 20 121/78 (92) 99 08/23/17 16:00 69 08/23/17 12:20 87 08/23/17 12:09 97.4 82 20 127/62 (83) 99 08/23/17 09:56 99 Nasal Cannula 3.00 08/23/17 09:27 74 08/23/17 08:09 97.6 68 20 134/72 (92) 100 08/23/17 04:00 97.6 79 23 118/70 (86) 93 08/23/17 04:00 74 08/23/17 01:32 Nasal Cannula 3.00 08/23/17 00:00 83 08/23/17 00:00 97.3 81 21 137/67 (90) 94 I/O 08/22/17 08/22/17 08/22/17 08/23/17 08/23/17 08/23/17 07:00 15:00 23:00 07:00 15:00 23:00 Intake Total 240 ml 520 ml 660 ml 520 ml Output Total 2450 ml 2300 ml 2100 ml Balance -2210 ml 520 ml -1640 ml -1580 ml Intake Oral 240 ml 520 ml 660 ml 520 ml Output Urine Total 2450 ml 2300 ml 2100 ml # Voids 7 # Bowel Movements 1 2 3 Result Diagram: 08/21/17 0809 08/23/17 0658 Objective Remarks GENERAL: Patient sitting up on edge of bed. Appears comfortable.no appreciable change on exam today. SKIN: Warm and dry. HEAD: Normocephalic. EYES: No scleral icterus. No injection or drainage. NECK: Supple, trachea midline. No JVD. CARDIOVASCULAR: Regular rate and rhythm without murmurs, gallops, or rubs. RESPIRATORY: Breath sounds equal bilaterally. No accessory muscle use. GASTROINTESTINAL: Abdomen soft, non-tender, nondistended. MUSCULOSKELETAL: No cyanosis. +2 bilateral lower extremity edema. Faint erythema bilaterally. BACK: Nontender without obvious deformity. No CVA tenderness. A/P Assessment and Plan 08/23. Patient seen and examined. Contraction alkalosis, with Diamox ordered. Creatinine continues to improve, however BUN still quite elevated at 83. Appreciate nephrology assistance. Possibly discharge to rehabilitation tomorrow. Discussed with case management. Discussed with nursing. 61-year-old male with past medical history significant for atrial fibrillation on Xarelto, COPD, CHF, chronic renal insufficiency admitted with right lower extremity cellulitis, bilateral lower extremity edema and increased shortness of breath. //COPD, acute on chronic exacerbation - CXR personally reviewed showing no acute findings - Continue on scheduled DuoNeb - Symbicort 160/4.5 mcg 2 puffs BID - Treated with IV methylprednisolone 40 mg every 6 - Dc'd 08/17 - Continue supplemental oxygen as needed - Continue to monitor respiratory status, currently 97% on2 liters nasal canula. = 08/22. A stress test improving. 97% on 2 L. Taper prednisone. //CHF, acute on chronic, diastolic - Echocardiogram completed 02/03/17 with EF of 65% - BNP 308 - Continue with diuresis on IV Lasix. Monitor electrolytes - monitor I&Os - fluid/salt restricted diet = Appreciate nephrology assistance. Continue to monitor renal function. //CORIN on CKD stage 3, underlying nephrosclerosis - Initially kidney function was worsening on IV lasix and Nephrology consulted. - baseline appears to be around 1.5-1.6. - Renal US 07/27/17 normal. - Strict I&Os - Avoid nephrotoxic agents - repeat BMP in am - Avoid Gadolinium with GDFR < 30. - 08/21 Creatinine now trending down from 3.09 down to 2.88. Continue Lasix 40 mg IV every 8 hours, albumin administration as per nephrology. = 08/21. Creatinine down to 2.42, BUN still 85. Still tenuous. Continue to monitor fluid status. Appreciate nephrology assistance //Hyperphosphatemia - Secondary to acute renal failure - 08/21 phosphorus levels trending up and now 6.0. Continue on PhosLo. //Hyponatremia, chronic. Resolved currently. -- Due to hypervolemic hyponatremia. Resolved. - Continue to monitor BMP. //RLE cellulitis //Chronic bilateral venous status dermatitis - Wound culture in the system 02/09/17 positive for MRSA, sensitive to Vancomycin - Continue on Vancomycin. Pharmacy to dose. - ID consulted, appreciate assistance - Urine cx (+)MRSA. Blood culture positive for MRSA and Coag Neg Staph - possible colonization/contaminant - Wound care consulted, Please cleanse wounds to BLE with normal saline and cover with optifoam AG gentle and secure with rolled gauze and tape.Please change dressing every 2 days or PRN if saturated or dislodged. Please apply shaving cream to BLE 3 times a week and leave in place for 10 minutes before removing with warm water and wash cloths. Please dry legs thoroughly.Before applying lotion or dressings. Lac Hydrin BID. - Elevated BLE when able - 08/21 discussed the case with Dr. Valencia from [place]. continue IV vancomycin for now and with the patient is ready to be discharge then switched to by mouth Levaquin 7 more days. = 08/22. Continue antibiotics as per infectious disease. When ready to be discharged, can go on Levaquin 7 more days. //Atrial fibrillation, chronic - rate controlled - Continue on Diltiazem CD 360mg daily and Lopressor 100mg po q8h daily - digoxin level normal. Resume home Digoxin 0.125mg daily. Monitor daily. - Continue on home dose of Xarelto = . Digoxin level tomorrow. //DENIS - Non CPAP compliant //Anemia, normocytic, chronic - Suspect secondary to anemia of chronic disease - stable - Continue to monitor CBC as indicated Hyperglycemia - No reported history of diabetes - Exacerbated by IV steroids - hemoglobin A1c level 5.6 - Accu-Cheks, insulin sliding scale Dysuria Suspect BPH - initial UA negative. Repeat without signs of infection. Patient denies any dysuria currently. - patient reports hesitancy and slow stream. - Continue Flomax Hx of alcohol use/abuse - CIWA protocol - Thiamine/folic acid/MVI daily - No evidence of alcohol withdrawal. GERD/gastritis - Continue pantoprazole DVT prophylaxis - Patients on Xarelto Discharge Planning Pending nephrology clearance PT recommends rehabilitation. Appreciate case management assistance. Castillo Lorenzo MD Aug 23, 2017 20:57
[2017-08-24] VITALS: BP 131/67; PULSE 70; PULSE 75; RESP 21; TEMP 97.4; O2SAT 96
[2017-08-24] MEDS: METOPROLOL TARTRATE 100 MG TAB PO SCH ×2 (03:50→12:36)
[2017-08-24] MEDS: FUROSEMIDE 40 MG/4 ML VIAL IV PUSH SCH (03:50)
[2017-08-24 04:00] VITALS: BP 112/64; PULSE 81; PULSE 82; RESP 20; TEMP 98; O2SAT 95
[2017-08-24 08:00] VITALS: BP 133/70; PULSE 87; RESP 16; TEMP 97.5; O2SAT 100
[2017-08-24] MEDS: INSULIN ASPART SUPPLEMENTAL SCALE SQ SCH ×2 (08:00→12:00)
[2017-08-24] MEDS: SODIUM CHLORIDE 0.9% FLUSH 10 ML FLUSH IV FLUSH SCH (09:00)
[2017-08-24] MEDS: LACTIC ACID (AMMONIUM LACTATE) 12% LOTION 225 GM BTL TOPICAL SCH (09:00)
[2017-08-24] MEDS: predniSONE 10 MG TAB PO SCH (09:23)
[2017-08-24] MEDS: DIGOXIN 0.125 MG TAB PO SCH (09:23)
[2017-08-24] MEDS: DOCUSATE SODIUM 50 MG/SENNA 8.6 MG TAB PO SCH (09:23)
[2017-08-24] MEDS: LACTOBACILLUS ACIDOPHILUS TAB PO SCH ×2 (09:23→12:36)
[2017-08-24] MEDS: TAMSULOSIN HCL 0.4 MG CAP PO SCH (09:23)
[2017-08-24] MEDS: MULTIVITAMIN TAB PO SCH (09:24)
[2017-08-24] MEDS: THIAMINE HCL 100 MG TAB PO SCH (09:24)
[2017-08-24] MEDS: FOLIC ACID 1 MG TAB PO SCH (09:24)
[2017-08-24] MEDS: RIVAROXABAN 15 MG TAB PO SCH (09:24)
[2017-08-24] MEDS: PANTOPRAZOLE SOD 40 MG DELAYED RELEASE TAB PO SCH (09:24)
[2017-08-24] MEDS: DILTIAZEM-CD 240 MG CAP ER PO SCH (09:24)
[2017-08-24] MEDS: CALCIUM ACETATE 667 MG CAP PO SCH ×2 (09:24→12:35)
[2017-08-24] MEDS: CHOLECALCIFEROL (VIT D3) 1000 UNIT TAB PO SCH (09:24)
[2017-08-24] MEDS: BUDESONIDE-FORMOTEROL 160/4.5 MCG INHALER INH SCH (09:27)
--- NOTE | 2017-08-24 10:18 | HHI.FF ---
Face to Face Verification Diagnosis: (1) COPD (chronic obstructive pulmonary disease) (2) Chronic diastolic congestive heart failure (3) Cellulitis, leg Physical Therapy Order: Evaluate and Treat Home Health Nursing Order: CHF education Nursing assessment with vital signs Instructions: Need fluid restrictions of 1800 mL per day, daily weights. To call M.D. if weight goes up by more than 3 pounds in 2 days or more than 5 pounds for 1 week Patient will need home health nursing for medication management. Goal Umpire Order: To Provide: Long range planning I have seen patient Zeeshan Nix on 08/24/17. My clinical findings support the need for the requested home health care services because: Deconditioned w/ increased weakness Med compliance is questionable I certify that my clinical findings support that this patient is homebound because: Unsafe to leave home unassisted Castillo Lorenzo MD Aug 24, 2017 10:18
[2017-08-24] MEDS ORDERED: PRED10 PO (10:26)
[2017-08-24] MEDS ORDERED: DILT240C44 PO (10:26)
[2017-08-24] MEDS ORDERED: TAMS5CAP PO (10:26)
[2017-08-24] MEDS ORDERED: LEVO750T3 PO (10:27)
[2017-08-24] MEDS ORDERED: LEVOFLOXACIN 750 MG TAB PO SCH (10:30)
[2017-08-24] MEDS ORDERED: ACET125 PO (10:34)
[2017-08-24] MEDS ORDERED: CALC667C PO (10:37)
--- NOTE | 2017-08-24 10:41 | HHI.PR ---
Subjective Remarks says he feels well. Denies any chest pain. Reports shortness of breath and uses improving. Objective Vital Signs Date Time Temp Pulse Resp B/P (MAP) Pulse Ox O2 Delivery O2 Flow Rate FiO2 08/24/17 08:00 97.5 87 16 133/70 (91) 100 08/24/17 04:00 82 08/24/17 04:00 98.0 81 20 112/64 (80) 95 08/24/17 00:00 97.4 70 21 131/67 (88) 96 08/24/17 00:00 75 08/23/17 20:00 75 08/23/17 20:00 97.4 74 19 134/59 (84) 94 08/23/17 17:40 99 Nasal Cannula 3.00 08/23/17 16:09 97.6 69 20 121/78 (92) 99 08/23/17 16:00 69 08/23/17 12:20 87 08/23/17 12:09 97.4 82 20 127/62 (83) 99 I/O 08/23/17 08/23/17 08/23/17 08/24/17 08/24/17 08/24/17 07:00 15:00 23:00 07:00 15:00 23:00 Intake Total 660 ml 520 ml 480 ml Output Total 2300 ml 2100 ml 1500 ml Balance -1640 ml -1580 ml -1020 ml Intake Oral 660 ml 520 ml 480 ml Output Urine Total 2300 ml 2100 ml 1500 ml # Bowel Movements 3 1 Result Diagram: 08/21/17 0809 08/23/17 0658 Objective Remarks GENERAL: Patient sitting up in chair. Appears comfortable. SKIN: Warm and dry. HEAD: Normocephalic. EYES: No scleral icterus. No injection or drainage. NECK: Supple, trachea midline. No JVD. CARDIOVASCULAR: Regular rate and rhythm without murmurs, gallops, or rubs. RESPIRATORY: Breath sounds equal bilaterally. No accessory muscle use. GASTROINTESTINAL: Abdomen soft, non-tender, nondistended. MUSCULOSKELETAL: No cyanosis. +2 bilateral lower extremity edema. Improved from yesterday. BACK: Nontender without obvious deformity. No CVA tenderness. A/P Assessment and Plan 08/24. Pending labs. Patient feels well. Feels like going home. He refuses inpatient rehabilitation. ==== //COPD, acute on chronic exacerbation - CXR personally reviewed showing no acute findings - Continue on scheduled DuoNeb - Symbicort 160/4.5 mcg 2 puffs BID - Treated with IV methylprednisolone 40 mg every 6 - Dc'd 08/17 - Continue supplemental oxygen as needed - Continue to monitor respiratory status, currently 97% on2 liters nasal canula. = 08/24 respiratory status much improved. Appears to be off oxygen. Discharge home with prednisone taper, Levaquin treatment course. //CHF, acute on chronic, diastolic - Echocardiogram completed 02/03/17 with EF of 65% - BNP 308 - Continue with diuresis on IV Lasix. Monitor electrolytes - monitor I&Os - fluid/salt restricted diet = Appreciate nephrology assistance. Continue to monitor renal function. = Discharge home on twice daily Lasix, Diamox. 1800 mL fluid restrictions. Daily weights. Close follow-up with nephrology. //CORIN on CKD stage 3, underlying nephrosclerosis - Initially kidney function was worsening on IV lasix and Nephrology consulted. - baseline appears to be around 1.5-1.6. - Renal US 07/27/17 normal. - Strict I&Os - Avoid nephrotoxic agents - repeat BMP in am - Avoid Gadolinium with GDFR < 30. - 08/21 Creatinine now trending down from 3.09 down to 2.88. Continue Lasix 40 mg IV every 8 hours, albumin administration as per nephrology. = 08/21. Creatinine down to 2.42, BUN still 85. Still tenuous. Continue to monitor fluid status. Appreciate nephrology assistance //Hyperphosphatemia - Secondary to acute renal failure - 08/21 phosphorus levels trending up and now 6.0. Continue on PhosLo. //Hyponatremia, chronic. Resolved currently. -- Due to hypervolemic hyponatremia. Resolved. - Continue to monitor BMP. //RLE cellulitis //Chronic bilateral venous status dermatitis - Wound culture in the system 02/09/17 positive for MRSA, sensitive to Vancomycin - Continue on Vancomycin. Pharmacy to dose. - ID consulted, appreciate assistance - Urine cx (+)MRSA. Blood culture positive for MRSA and Coag Neg Staph - possible colonization/contaminant - Wound care consulted, Please cleanse wounds to BLE with normal saline and cover with optifoam AG gentle and secure with rolled gauze and tape.Please change dressing every 2 days or PRN if saturated or dislodged. Please apply shaving cream to BLE 3 times a week and leave in place for 10 minutes before removing with warm water and wash cloths. Please dry legs thoroughly.Before applying lotion or dressings. Lac Hydrin BID. - Elevated BLE when able - 08/21 discussed the case with Dr. Valencia from [place]. continue IV vancomycin for now and with the patient is ready to be discharge then switched to by mouth Levaquin 7 more days. = 08/22. Continue antibiotics as per infectious disease. When ready to be discharged, can go on Levaquin 7 more days. //Atrial fibrillation, chronic - rate controlled - Continue on Diltiazem CD 360mg daily and Lopressor 100mg po q8h daily - digoxin level normal. Resume home Digoxin 0.125mg daily. Monitor daily. - Continue on home dose of Xarelto = 08/24. Digoxin level 1.4. Follow-up with primary care to monitor. //DENIS - Non CPAP compliant //Anemia, normocytic, chronic - Suspect secondary to anemia of chronic disease - stable - Continue to monitor CBC as indicated //Hyperglycemia - No reported history of diabetes - Exacerbated by IV steroids - hemoglobin A1c level 5.6. Prediabetic. - Accu-Cheks, insulin sliding scale. Expect improvement off steroids. Follow-up with primary care. //Dysuria //Suspect BPH - initial UA negative. Repeat without signs of infection. Patient denies any dysuria currently. - patient reports hesitancy and slow stream. - Continue Flomax //Hx of alcohol use/abuse - CIWA protocol - Thiamine/folic acid/MVI daily - No evidence of alcohol withdrawal. //GERD/gastritis - Continue pantoprazole //DVT prophylaxis - Patients on Xarelto Discharge Planning Discharge home with home health. Patient does not want to go to rehabilitation. Discussed with patient at PT recommends rehabilitation. Discussed risks. Patient conveys understanding. PT recommends rehabilitation. Appreciate case management assistance. Castillo Lorenzo MD Aug 24, 2017 10:41
--- NOTE | 2017-08-24 10:42 | HHI.DS ---
Discharge Summary Admission Date Aug 18, 2017 at 16:54 Discharge Date: Aug 24, 2017 Admitting Diagnosis cellulitis, CHF (1) COPD (chronic obstructive pulmonary disease) ICD Code: J44.9 - Chronic obstructive pulmonary disease, unspecified Status: Chronic (2) CHF (congestive heart failure) ICD Code: I50.9 - Heart failure, unspecified Status: Chronic (3) A-fib ICD Code: I48.91 - Unspecified atrial fibrillation Status: Chronic (4) Renal insufficiency ICD Code: N28.9 - Disorder of kidney and ureter, unspecified Status: Acute (5) Cellulitis, leg ICD Code: L03.119 - Cellulitis of unspecified part of limb Status: Acute (6) Anemia ICD Code: D64.9 - Anemia, unspecified Status: Acute Procedures NONE Brief History - From Admission This is a 61-year-old male with a PMH of HTN, A. fib on Xarelto, CHF (Echo w/ EF 65%), COPD and CAD who presented to the ER w/ c/o SOB and bilateral lower extremity swelling x1 wk. States symptoms have been getting progressively worse, also notes some redness to right leg. Denies fever, chills , cough or chest pain. On arrival, BP 120/56, HR 104, O2 sat 100% on 2L NC, Afebrile. Noted to have some wheezing on exam. Hemoglobin 7.8, previously 8.8 on 07/28/17. Creatinine 2.50, previously 2.08 on 07/29/17. BNP 308. Troponin 0.03. Lactic Acid normal. INR 1.5. CXR with no acute findings. S/p Clinda in ER. CBC/BMP: 08/21/17 0809 08/23/17 0658 Significant Findings Laboratory Tests Test 08/22/17 09:05 08/23/17 06:58 Blood Urea Nitrogen 85 MG/DL (7-18) 83 MG/DL (7-18) Creatinine 2.42 MG/DL (0.60-1.30) 2.11 MG/DL (0.60-1.30) Random Glucose 112 MG/DL (74-106) 109 MG/DL (74-106) Carbon Dioxide Level 34.1 MEQ/L (21.0-32.0) 38.3 MEQ/L (21.0-32.0) Estimat Glomerular Filtration Rate 27 ML/MIN (>89) 32 ML/MIN (>89) Phosphorus Level 5.1 MG/DL (2.5-4.9) Imaging Last Impressions Abdomen Ultrasound 08/19/17 0000 Signed Impressions: Service Date/Time: Saturday, August 19, 2017 19:16 - CONCLUSION: 1. Enlarged heterogeneous fatty liver. 2. Contracted thick-walled, gallbladder without pericholecystic fluid or sonographic Richmond's sign. 3. Mild splenomegaly. 4. Limited visualization of the pancreas, abdominal aorta and inferior vena cava due to shadowing bowel gas and body habitus. Stevan Fuentes MD Chest X-Ray 08/16/17 1823 Signed Impressions: Service Date/Time: Wednesday, August 16, 2017 18:41 - CONCLUSION: 1. No acute abnormality or significant interval change. Ollie Moran MD PE at Discharge GENERAL: Well-nourished, well-developed obese patient in NAD. Awake and alert. Sitting up in bedside chair. SKIN: Warm and dry. 2+ pitting edema standing up into abdomen. HEAD: Normocephalic. Atraumatic. EYES: EOMI. No scleral icterus. No injection or drainage. ENT: No nasal bleeding or discharge. Mucous membranes pink and moist. NECK: Trachea midline. CARDIOVASCULAR: Regular rate and rhythm. S1, S2 noted. No murmur appreciated. RESPIRATORY: Nonlabored. Diminished but clear to auscultation. Breath sounds equal bilaterally. GASTROINTESTINAL: Abdomen soft, non-tender, nondistended. Normoactive bowel sounds x4. MUSCULOSKELETAL: No obvious deformities. Extremities without clubbing or cyanosis. 4+ brawny edema BLE with active weeping yellowish discharge from RLE. NEUROLOGICAL: Awake and alert. Able to move all extremities. Nonfocal. Normal speech. PSYCHIATRIC: Appropriate mood and affect; insight and judgment normal. Hospital Course 08/24. Pending labs. Patient feels well. Feels like going home. He refuses inpatient rehabilitation. ==== //COPD, acute on chronic exacerbation - CXR personally reviewed showing no acute findings - Continue on scheduled DuoNeb - Symbicort 160/4.5 mcg 2 puffs BID - Treated with IV methylprednisolone 40 mg every 6 - Dc'd 08/17 - Continue supplemental oxygen as needed - Continue to monitor respiratory status, currently 97% on2 liters nasal canula. = 08/24 respiratory status much improved. Appears to be off oxygen. Discharge home with prednisone taper, Levaquin treatment course. //CHF, acute on chronic, diastolic - Echocardiogram completed 02/03/17 with EF of 65% - BNP 308 - Continue with diuresis on IV Lasix. Monitor electrolytes - monitor I&Os - fluid/salt restricted diet = Appreciate nephrology assistance. Continue to monitor renal function. = Discharge home on twice daily Lasix, Diamox. 1800 mL fluid restrictions. Daily weights. Close follow-up with nephrology. //CORIN on CKD stage 3, underlying nephrosclerosis - Initially kidney function was worsening on IV lasix and Nephrology consulted. - baseline appears to be around 1.5-1.6. - Renal US 07/27/17 normal. - Strict I&Os - Avoid nephrotoxic agents - repeat BMP in am - Avoid Gadolinium with GDFR < 30. - 08/21 Creatinine now trending down from 3.09 down to 2.88. Continue Lasix 40 mg IV every 8 hours, albumin administration as per nephrology. = 08/21. Creatinine down to 2.42, BUN still 85. Still tenuous. Continue to monitor fluid status. Appreciate nephrology assistance //Hyperphosphatemia - Secondary to acute renal failure - 08/21 phosphorus levels trending up and now 6.0. Continue on PhosLo. //Hyponatremia, chronic. Resolved currently. -- Due to hypervolemic hyponatremia. Resolved. - Continue to monitor BMP. //RLE cellulitis //Chronic bilateral venous status dermatitis - Wound culture in the system 02/09/17 positive for MRSA, sensitive to Vancomycin - Continue on Vancomycin. Pharmacy to dose. - ID consulted, appreciate assistance - Urine cx (+)MRSA. Blood culture positive for MRSA and Coag Neg Staph - possible colonization/contaminant - Wound care consulted, Please cleanse wounds to BLE with normal saline and cover with optifoam AG gentle and secure with rolled gauze and tape.Please change dressing every 2 days or PRN if saturated or dislodged. Please apply shaving cream to BLE 3 times a week and leave in place for 10 minutes before removing with warm water and wash cloths. Please dry legs thoroughly.Before applying lotion or dressings. Lac Hydrin BID. - Elevated BLE when able - 08/21 discussed the case with Dr. Valencia from [place]. continue IV vancomycin for now and with the patient is ready to be discharge then switched to by mouth Levaquin 7 more days. = 08/22. Continue antibiotics as per infectious disease. When ready to be discharged, can go on Levaquin 7 more days. //Atrial fibrillation, chronic - rate controlled - Continue on Diltiazem CD 360mg daily and Lopressor 100mg po q8h daily - digoxin level normal. Resume home Digoxin 0.125mg daily. Monitor daily. - Continue on home dose of Xarelto = 08/24. Digoxin level 1.4. Follow-up with primary care to monitor. //DENIS - Non CPAP compliant //Anemia, normocytic, chronic - Suspect secondary to anemia of chronic disease - stable - Continue to monitor CBC as indicated //Hyperglycemia - No reported history of diabetes - Exacerbated by IV steroids - hemoglobin A1c level 5.6. Prediabetic. - Accu-Cheks, insulin sliding scale. Expect improvement off steroids. Follow-up with primary care. //Dysuria //Suspect BPH - initial UA negative. Repeat without signs of infection. Patient denies any dysuria currently. - patient reports hesitancy and slow stream. - Continue Flomax //Hx of alcohol use/abuse - [facility] protocol - Thiamine/folic acid/MVI daily - No evidence of alcohol withdrawal. //GERD/gastritis - Continue pantoprazole //DVT prophylaxis - Patients on Xarelto Discharge Planning Discharge home with home health. Patient does not want to go to rehabilitation. Discussed with patient at PT recommends rehabilitation. Discussed risks. Patient conveys understanding. PT recommends rehabilitation. Appreciate case management assistance. Pt Condition on Discharge: Good Discharge Disposition: Disch w/ Home Health Serv Discharge Time: > 30 minutes Discharge Instructions DIET: Follow Instructions for: Heart Healthy Diet, Renal Failure Diet Fluid Restrictions: 1800ML Activities you can perform: Regular-No Restrictions Other Activity Instructions: Please weigh yourself daily. Please call M.D. if weight goes up by more than 3 pounds in 2 days, or more than 5 pounds in a week. Follow up Referrals: Nephrology - 1 Week with Amy Velazquez MD PCP Follow-up - 1 Week @ [facility] [place] Pulmonology - 1 Week with Yordan Farr MD New Medications: Acetazolamide (Acetazolamide) 125 Mg Tab 125 MG PO BID for fluid overload for 30 Days, #60 TAB 0 Refills Levofloxacin (Levofloxacin) 750 Mg Tablet 750 MG PO Q48H for Infection, #3 TAB 0 Refills Prednisone (Prednisone) 10 Mg Tab 10 MG PO DAILY for COPD exacerbation, #9 TAB 0 Refills take 20mg daily for 3 days; 10mg daily for 3 days, then stop. Calcium Acetate (Phosphate Bin (Calcium Acetate) 667 Mg Cap 667 MG PO TID for high phosphorous for 30 Days, CAP Diltiazem CD 24 HR (Diltiazem CD 24 HR) 240 Mg Caper 240 MG PO DAILY for heart for 30 Days, #30 CAP Tamsulosin (Flomax) 0.4 Mg Cap 0.4 MG PO DAILY for difficulty urinating for 30 Days, #30 CAP Changed Medications: Furosemide (Lasix) 40 Mg Tab 80 MG PO BID for fluid overload for 30 Days, #120 TAB 0 Refills (Changed from: 40 MG; 60) Continued Medications: Albuterol 18 GM Inh (Ventolin Hfa 18 GM Inh) 90 Mcg/Act Aer 1 PUFF INH Q4H PRN for SHORTNESS OF BREATH, #1 INHALER 3 Refills Atorvastatin (Atorvastatin) 40 Mg Tab 40 MG PO HS for Cholesterol Management, #30 TAB 0 Refills Budesonide-Formoterol Inh (Symbicort Inh) 160-4.5 Mcg/Act Aero 2 PUFF INH Q12HR for Breathing Treatment, #1 INHALER 3 Refills Digoxin (Digoxin) 0.125 Mg Tab 0.125 MG PO DAILY for afib, #30 TAB Fluticasone-Vilanterol Inh (Breo Ellipta Inh) 100-25 Mcg/Act Inh 1 PUFF INH DAILY, #1 INHALER 0 Refills Use daily at the same time. Ipratropium HFA 12.9 GM Inh (Atrovent HFA 12.9 GM Inh) 17 Mcg/Act Aer 2 PUFF INH Q6HR PRN for SHORTNESS OF BREATH, #1 INHALER 3 Refills Metoprolol Tartrate (Lopressor) 50 Mg Tab 100 MG PO Q8H for afib, #90 TAB Pantoprazole (Pantoprazole) 40 Mg Tab 40 MG PO Q12HR for gastritis, #62 TAB Rivaroxaban (Xarelto) 15 Mg Tab 15 MG PO DAILY for Blood Clot Prevention for 30 Days, #30 TAB 0 Refills Discontinued Medications: Diltiazem CD 24 HR (Cardizem CD 24 HR) 360 Mg Caper 360 MG PO DAILY for afib, #30 CAP 0 Refills Castillo Lorenzo MD Aug 24, 2017 10:42
--- NOTE | 2017-08-24 11:42 | HHI.NPPN ---
Subjective History of Present Illness The patient is a 61 yo [place] male who presented to the ED on 08/16 with complaints of SOB and worsening LE edema. He has had multiple admissions to this facility since April and seems to be all from the same complaints. Has known CKD with previous baseline SCr of 1.6-1.9, but has had periodic spikes. His most recent admission was 07/26/15 thru 07/29 for COPD exacerbation. His D/C SCr was 2.08 on 07/29. He denies any recent abx use. Denies NSAID use. Uses Lasix 40mg BID at home, but has had decrease in UOP over the past few weeks. Is a heavy drinker of 5-7 drinks daily. Also admits marijuana use, but no other illicits. PMHx includes atrial fibrillation with ablation attempts x3, HTN, morbid obesity, CHF with EF of 65%, venous stasis, LE cellulitis, hyponatremia, & COPD. Is currently being treated for LE cellulitis. Was on vancomycin and ID has changed to po Levaquin. Initial BCx positive for MRSA, but ID feels his skin is colonized as repeat BCx negative. 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 Respiratory Lungs: SOB Cardiovascular Cardiac: Edema Objective Data Data Vital Signs Date Time Temp Pulse Resp B/P (MAP) Pulse Ox O2 Delivery O2 Flow Rate FiO2 08/24/17 08:00 97.5 87 16 133/70 (91) 100 08/24/17 04:00 82 08/24/17 04:00 98.0 81 20 112/64 (80) 95 08/24/17 00:00 97.4 70 21 131/67 (88) 96 08/24/17 00:00 75 08/23/17 20:00 75 08/23/17 20:00 97.4 74 19 134/59 (84) 94 08/23/17 17:40 99 Nasal Cannula 3.00 08/23/17 16:09 97.6 69 20 121/78 (92) 99 08/23/17 16:00 69 08/23/17 12:20 87 08/23/17 12:09 97.4 82 20 127/62 (83) 99 -: 08/21/17 0809 08/23/17 0658 Physical Exam General Appearance: Comfortable Throat Throat Exam: Oral Mucosa [place] & Moist Neck Neck Exam: Neck Supple, Trachea Midline Pulmonary Resp Exam: Diminished Breath Sounds Cardiology CV Exam: Regular, Normal Sinus Rhythm Gastrointestinal/Abdomen GI Exam: Distended Integumentary Skin Exam: Warm Extremeties Extremities Exam: Moderate Edema (Improving slowly. 2+ flanks and BLE extending up to thighs), Pitting Edema Neurologic Neuro Exam: Alert, Awake Psychiatric Psych Exam: Appropriate Responses Assessment/Plan Discussed Condition With: Patient Problem List: (1) Acute on chronic kidney failure ICD Codes: N17.9 - Acute kidney failure, unspecified; N18.9 - Chronic kidney disease, unspecified Plan: Very good urine output in last 24 hours and lower extremity edema has improved. Further diuresis required however could be achieved as an outpatient with by mouth diuretics. Will convert patient to by mouth torsemide. So long as electrolytes are stable today patient clear for discharge from a renal point of view with follow-up with me in about 1-2 weeks with repeat renal panel post discharge in about 1 week. Patient advised to monitor his weight is an outpatient. Contact me if he does not continue to lose weight or starts gaining weight which would suggest inadequate diuresis or possible increasing fluid retention. Medications should be adjusted for the patient's renal decline. Avoid nephrotoxins including iodinated contrast dyes and NSAIDs. Avoid gadolinium when eGFR <30. (2) Edema ICD Codes: R60.9 - Edema, unspecified Status: Chronic Plan: Probably multifactorial secondary to renal insufficiency as well as COPD/ sleep apnea with pulmonary hypertension noted on previous echocardiogram this year. (3) Anemia ICD Codes: D64.9 - Anemia, unspecified Status: Acute Plan: Fe stores low. Will start on po iron. Pending FOBT (4) Secondary hyperparathyroidism ICD Codes: N25.81 - Secondary hyperparathyroidism of renal origin Plan: Continue Cholecalciferol 2000IU once daily (5) Hyperphosphatemia ICD Codes: E83.39 - Other disorders of phosphorus metabolism Plan: Continue on PhosLo. (6) Sleep apnea ICD Codes: G47.30 - Sleep apnea, unspecified Plan: Suspected by pulmonary during recent previous admission. Patient was advised to have a sleep study performed however he apparently did not and has not followed up with pulmonary since his previous discharge. He was strongly advised to follow-up with his rn hospice and have the sleep study performed. Potential benefits of treatment of sleep apnea if indeed he does have same were reviewed with him. I will defer to primary regarding any further intervention at this time. (7) Cellulitis, leg ICD Codes: L03.119 - Cellulitis of unspecified part of limb Status: Acute Plan: Mgmt as per ID Vanc D/C'd. (8) Fatty liver, alcoholic ICD Codes: K70.0 - Alcoholic fatty liver Status: Chronic Plan: Noted on ultrasound report. Patient was advised to discontinue alcohol use and discuss same with primary care physician. Defer further follow-up and management of this problem to primary care. Patient advised fatty liver can be precursor of cirrhosis with its associated consequences. Problem Qualifiers (1) Cellulitis, leg: Qualified Codes: L03.115 - Cellulitis of right lower limb Mian De Oliveira MD Aug 24, 2017 11:42
[2017-08-24 12:00] VITALS: BP 138/57; PULSE 82; RESP 19; TEMP 97.2; O2SAT 97
[2017-08-24 12:09] LABS: BICARBONATE 39.3 MEQ/L (21.0-32.0); POTASSIUM 3.6 MEQ/L (3.5-5.1)
[2017-08-24] MEDS ORDERED: TORS1TAB12 PO (12:50)
[2017-08-25] MEDS ORDERED: TORSEMIDE 20 MG TAB PO SCH (09:00)
== END 2017-08-24 14:46 | disposition home health service (06) | DRG 291 ==
LOC: NEDAMB 16:34 → NEDA 20:07 → NEPGCP 21:28 → OBSVTOIN 08-18 16:54 → N04A 08-19 23:27
PROVIDERS: ADMIT Internal Medicine; ATTEND Internal Medicine
DX: I13.0 Hypertensive heart and chronic kidney disease with heart failure and stage 1 through stage 4 chronic kidney disease, or unspecified chronic kidney disease (principal); I50.33 Acute on chronic diastolic (congestive) heart failure; J96.20 Acute and chronic respiratory failure, unspecified whether with hypoxia or hypercapnia; E87.3 Alkalosis; N17.9 Acute kidney failure, unspecified; N18.3 Chronic kidney disease, stage 3 (moderate); L03.115 Cellulitis of right lower limb; E87.1 Hypo-osmolality and hyponatremia; J44.1 Chronic obstructive pulmonary disease with (acute) exacerbation; I27.20 Pulmonary hypertension, unspecified; N25.81 Secondary hyperparathyroidism of renal origin; Z99.81 Dependence on supplemental oxygen; E66.01 Morbid (severe) obesity due to excess calories; Z79.01 Long term (current) use of anticoagulants; I48.2 Chronic atrial fibrillation; I25.10 Atherosclerotic heart disease of native coronary artery without angina pectoris; I87.8 Other specified disorders of veins; Z86.73 Personal history of transient ischemic attack (TIA), and cerebral infarction without residual deficits; F10.10 Alcohol abuse, uncomplicated; F12.90 Cannabis use, unspecified, uncomplicated; Z86.14 Personal history of Methicillin resistant Staphylococcus aureus infection; K21.9 Gastro-esophageal reflux disease without esophagitis; K29.70 Gastritis, unspecified, without bleeding; R30.0 Dysuria; E83.39 Other disorders of phosphorus metabolism; G47.33 Obstructive sleep apnea (adult) (pediatric); Z22.322 Carrier or suspected carrier of Methicillin resistant Staphylococcus aureus; K70.0 Alcoholic fatty liver; E78.5 Hyperlipidemia, unspecified; R73.03 Prediabetes; D63.8 Anemia in other chronic diseases classified elsewhere; Z23 Encounter for immunization
CPT/HCPCS: 71010; 76700; 76937; 80048; 80053; 80069; 80076; 80162; 80202; 81001; 82306; 82550; 82570; 82728; 82948; 83036; 83540; 83550; 83605; 83735; 83880; 83970; 84100; 84300; 84439; 84443; 84484; 85025; 85027; 85610; 85730; 86403; 87040; 87070; 87077; 87186; 87205; 90732; 93005; 94640; 94664; 96365; 96375; 96376; G0378; G8987-GP; G8988-GP; J1120; J1205; J1815; J1940; J2920; J2930; J3370; J7040; J7512; P9045

== ENCOUNTER 2017-09-04 11:08 | Inpatient (IN) | payer OTHER, MEDICARE ==
[~2017-09-04] VITALS: Ht 172.7 cm; Wt 143.0 kg
[2017-09-04] VITALS (8 sets, daily range): BP systolic 89–117; BP diastolic 51–58; PULSE 79–88; RESP 18; TEMP 98.3–98.8; O2SAT 87–100
[~2017-09-04 11:08] MED LIST changes: +ACET125 PO; +CALC667C PO; -CARD360C PO; +DILT240C44 PO; -FURO1TAB60 PO; +LEVO750T3 PO; +PRED10 PO; -PRED20 PO; +TAMS5CAP PO; +TORS1TAB12 PO
--- NOTE | 2017-09-04 11:48 | PD ---
Physical Exam Narrative I, Dr. Brewster, have reviewed the advance practice practitioner's documentation and am in agreement, met with the patient face to face, made the diagnosis, and the medical decision making was done by me. *My assessment and Findings: Patient is a 61 year old male with history of CHF, who comes in due to leg swelling and inability to walk. Patient has home health, who sent him here because he is unable to be managed at home. He denies chest pain or SOB. Exam shows large, edematous lower extremities that are weeping. Lungs show decreased breath sounds throughout. Data Data Last Documented VS Vital Signs Date Time Temp Pulse Resp B/P (MAP) Pulse Ox O2 Delivery O2 Flow Rate FiO2 09/04/17 16:30 79 18 107/51 (69) 98 Nasal Cannula 2.00 09/04/17 11:19 98.6 Orders Orders Complete Blood Count With Diff (09/04/17 11:27) Comprehensive Metabolic Panel (09/04/17 11:27) B-Type Natriuretic Peptide (09/04/17 11:27) Magnesium (Mg) (09/04/17 11:27) Ckmb (Isoenzyme) Profile (09/04/17 11:27) Troponin I (09/04/17 11:27) Urinalysis - C+S If Indicated (09/04/17 11:27) Iv Access Insert/Monitor (09/04/17 11:27) Electrocardiogram (09/04/17 11:27) Ecg Monitoring (09/04/17 11:27) Oximetry (09/04/17 11:27) Oxygen Administration (09/04/17 11:27) Chest, Single Ap (09/04/17 11:27) (Hub Use Only)Inp Phy Cons/Ref (09/04/17 ) (Hub Use Only)Inp Phy Cons/Ref (09/04/17 ) Admit Order (Ed Use Only) (09/04/17 18:13) Labs Laboratory Tests Test 09/04/17 11:33 09/04/17 15:40 White Blood Count 10.6 TH/MM3 Red Blood Count 2.47 MIL/MM3 Hemoglobin 7.0 GM/DL Hematocrit 21.7 % Mean Corpuscular Volume 88.1 FL Mean Corpuscular Hemoglobin 28.6 PG Mean Corpuscular Hemoglobin Concent 32.4 % Red Cell Distribution Width 20.7 % Platelet Count 158 TH/MM3 Mean Platelet Volume 7.8 FL Neutrophils (%) (Auto) 89.9 % Lymphocytes (%) (Auto) 3.1 % Monocytes (%) (Auto) 5.8 % Eosinophils (%) (Auto) 0.5 % Basophils (%) (Auto) 0.7 % Neutrophils # (Auto) 9.5 TH/MM3 Lymphocytes # (Auto) 0.3 TH/MM3 Monocytes # (Auto) 0.6 TH/MM3 Eosinophils # (Auto) 0.1 TH/MM3 Basophils # (Auto) 0.1 TH/MM3 CBC Comment DIFF FINAL Differential Comment Blood Urea Nitrogen 59 MG/DL Creatinine 2.88 MG/DL Random Glucose 132 MG/DL Total Protein 6.5 GM/DL Albumin 3.0 GM/DL Calcium Level 8.2 MG/DL Magnesium Level 2.4 MG/DL Alkaline Phosphatase 181 U/L Aspartate Amino Transf (AST/SGOT) 17 U/L Alanine Aminotransferase (ALT/SGPT) 29 U/L Total Bilirubin 1.2 MG/DL Sodium Level 133 MEQ/L Potassium Level 4.0 MEQ/L Chloride Level 95 MEQ/L Carbon Dioxide Level 27.8 MEQ/L Anion Gap 10 MEQ/L Estimat Glomerular Filtration Rate 22 ML/MIN Total Creatine Kinase 49 U/L Troponin I 0.04 NG/ML B-Type Natriuretic Peptide 319 PG/ML Urine Color YELLOW Urine Turbidity CLEAR Urine pH 5.0 Urine Specific [place] 1.015 Urine Protein NEG mg/dL Urine Glucose (UA) NEG mg/dL Urine Ketones NEG mg/dL Urine Occult Blood NEG Urine Nitrite NEG Urine Bilirubin NEG Urine Urobilinogen 2.0 MG/DL Urine Leukocyte Esterase MOD Urine WBC 5 /hpf Urine Squamous Epithelial Cells 3 /hpf Urine Hyaline Casts 32 /lpf Urine Granular Casts 6 /lpf Urine Mucus FEW /lpf Microscopic Urinalysis Comment CULT NOT INDICATED MDM Supervised Visit with TOMASA: Yes Narrative Course Creatinine is elevated compared to previous visit. CXR shows no evidence of edema. Patient will be admitted and will require placement. Diagnosis Primary Impression: Acute on chronic kidney failure Qualified Codes: N17.9 - Acute kidney failure, unspecified; N18.9 - Chronic kidney disease, unspecified Admitting Information Admitting Physician Requests: Admit Cristy Brewster MD Sep 04, 2017 11:48
[2017-09-04 11:56] LABS: AUTOMATED NEUTROPHIL # 9.5 TH/MM3 (1.8-7.7); BASOPHIL # 0.1 TH/MM3 (0-0.2); BASOPHIL % 0.7 % (0.0-2.0); EOSINOPHIL # 0.1 TH/MM3 (0-0.4); EOSINOPHIL % 0.5 % (0.0-4.0); HEMATOCRIT 21.7 % (39.0-51.0); LYMPH % 3.1 % (9.0-44.0); LYMPHOCYTE # 0.3 TH/MM3 (1.0-4.8); MEAN CELL VOLUME 88.1 FL (80.0-100.0); MEAN CORPUSCULAR HEMOGLOBIN 28.6 PG (27.0-34.0); MEAN CORPUSCULAR HGB CONC 32.4 % (32.0-36.0); MEAN PLATELET VOLUME 7.8 FL (7.0-11.0); MONO % 5.8 % (0.0-8.0); MONOCYTE # 0.6 TH/MM3 (0-0.9); NEUT % 89.9 % (16.0-70.0); PLATELET COUNT 158 TH/MM3 (150-450); RED BLOOD COUNT 2.47 MIL/MM3 (4.50-5.90); RED CELL DISTRIBUTION WIDTH 20.7 % (11.6-17.2); WHITE BLOOD COUNT 10.6 TH/MM3 (4.0-11.0)
--- NOTE | 2017-09-04 12:14 | PD ---
HPI Chief Complaint: Edema Time Seen by Provider: 11:26 Travel History International Travel<30 days: No Contact w/Intl Traveler<30days: No Traveled to known affect area: No History of Present Illness HPI 61 year old male patient presents to the emergency department via EMS for evaluation of bilateral leg weakness and swelling. Home health nurse called EMS to report the patient has not walked in two days. Patient is morbidly obese and in obvious poor health. Patient's son is schedule to fly down to [place] from [place] next week to help place patient in a [facility]. The patient has 4+ edema to bilateral lower legs with serosanguineous fluid draining from multiple locations on jeremiah lower extremities. Bilateral lower extremities are erythematous. Patient denies any chest pain, shortness of breath, nausea, vomiting, diarrhea,abdominal pain. Patient denies any fevers, chills or malaise. Although patient has an extensive history of CHF. Patient's only pain at this time is aching feet. Patient's bilateral feet are extremely edematous with +4 pitting edema. Pedal pulse were heard using a Doppler. Bilateral feet are warm and dry to the touch. Patient has history of COPD and is on continuous O2 at 2L NC. Patient's SpO2 is 97% on 2L at our facility. PFSH Past Medical History Hx Anticoagulant Therapy: Yes Arthritis: No Asthma: No Atrial Fibrillation: Yes Blood Disorders: No Heart Rhythm Problems: Yes (AFIB) Cancer: No Cardiac Catheterization: Yes Cardiovascular Problems: Yes (HTN, CHF) High Cholesterol: Yes Chest Pain: No Congestive Heart Failure: Yes COPD: Yes Cerebrovascular Accident: Yes (TIA) Coronary Artery Disease: Yes Diabetes: No Diminished Hearing: No Endocrine: No Gastrointestinal Disorders: No Genitourinary: Yes Hypertension: Yes Immune Disorder: No Implanted Vascular Access Dvce: No Kidney Stones: No Musculoskeletal: Yes Neurologic: No Psychiatric: No Reproductive: No Respiratory: Yes (COPD) Integumentary: Yes (BILATERAL LOWER LEG SWELLING/SKIN ITEGRATY ISSUES cellulitis) Immunizations Current: Yes Migraines: No Renal Failure: Yes Seizures: Yes Sickle Cell Disease: No Sleep Apnea: Yes Thyroid Disease: No ?: Not Past Surgical History Abdominal Surgery: Yes (appendectomy) Appendectomy: Yes Cardiac Surgery: Yes (ABLATIONS X 3 (afib)) Ear Surgery: No Endocrine Surgery: No Eye Surgery: No Genitourinary Surgery: No Gynecologic Surgery: No Neurologic Surgery: No Oral Surgery: No Thoracic Surgery: No Tonsillectomy: Yes Other Surgery: Yes (3 CARDIAC ABLATIONS) Social History Alcohol Use: Yes (3-4 cocktails daily) Tobacco Use: No Substance Use: Yes (MARIJUANA "ONCE IN A WHILE") Allergies-Medications (Allergen,Severity, Reaction): Coded Allergies: No Known Allergies (Unverified Allergy, Unknown, 08/16/17) Reported Meds & Prescriptions Reported Meds & Active Scripts Active Demadex (Torsemide) 20 Mg Tab 40 Mg PO DAILY 30 Days Calcium Acetate (Calcium Acetate (Phosphate Bin) 667 Mg Cap 667 Mg PO TID 30 Days Acetazolamide 125 Mg Tab 125 Mg PO BID 30 Days Levofloxacin 750 Mg Tablet 750 Mg PO Q48H Prednisone 10 Mg Tab 10 Mg PO DAILY take 20mg daily for 3 days; 10mg daily for 3 days, then stop. Diltiazem CD 24 HR 240 Mg Caper 240 Mg PO DAILY 30 Days Flomax (Tamsulosin HCl) 0.4 Mg Cap 0.4 Mg PO DAILY 30 Days Xarelto (Rivaroxaban) 15 Mg Tab 15 Mg PO DAILY 30 Days Digoxin 0.125 Mg Tab 0.125 Mg PO DAILY Lopressor (Metoprolol Tartrate) 50 Mg Tab 100 Mg PO Q8H Pantoprazole (Pantoprazole Sodium) 40 Mg Tab 40 Mg PO Q12HR Ventolin Hfa 18 GM Inh (Albuterol Sulfate) 90 Mcg/Act Aer 1 Puff INH Q4H PRN Atrovent HFA 12.9 GM Inh (Ipratropium [place]) 17 Mcg/Act Aer 2 Puff INH Q6HR PRN Symbicort Inh (Budesonide/Formoterol Fumarate) 160-4.5 Mcg/Act Aero 2 Puff INH Q12HR Reported Breo Ellipta Inh (Fluticasone/Vilanterol) 100-25 Mcg/Act Inh 1 Puff INH DAILY Use daily at the same time. Atorvastatin (Atorvastatin Calcium) 40 Mg Tab 40 Mg PO HS Review of Systems Except as stated in HPI: all other systems reviewed are Neg Physical Exam Narrative GENERAL: Morbidly obese pale 61-year-old male in no acute respiratory distress. SKIN: Focused skin assessment pale/warm/dry. HEAD: Atraumatic. Normocephalic. EYES: Pupils equal and round. No scleral icterus. No injection or drainage. ENT: No nasal bleeding or discharge. Mucous membranes pink and moist. NECK: Trachea midline. No JVD. CARDIOVASCULAR: Distant sounding regular rate and rhythm. No murmur appreciated. RESPIRATORY: Distant breath sounds without wheezes, rales, rhonchi or crackles. No accessory muscle use. Breath sounds equal bilaterally. GASTROINTESTINAL: Abdomen soft, non-tender, nondistended. Hepatic and splenic margins not palpable. MUSCULOSKELETAL: 4+ pitting edema to bilateral lower extremities with draining serosanguineous fluid and surrounding tissue erythematous. 4+ pitting edema in his bilateral feet. No drainage or erythema noted to the feet. Pedal pulses heard with Doppler. NEUROLOGICAL: Awake and alert. No obvious cranial nerve deficits. Motor grossly within normal limits. Normal speech. PSYCHIATRIC: Appropriate mood and affect; insight and judgment normal. Data Data Last Documented VS Vital Signs Date Time Temp Pulse Resp B/P (MAP) Pulse Ox O2 Delivery O2 Flow Rate FiO2 09/04/17 16:30 79 18 107/51 (69) 98 Nasal Cannula 2.00 09/04/17 11:19 98.6 Orders Orders Complete Blood Count With Diff (09/04/17 11:27) Comprehensive Metabolic Panel (09/04/17 11:27) B-Type Natriuretic Peptide (09/04/17 11:27) Magnesium (Mg) (09/04/17 11:27) Ckmb (Isoenzyme) Profile (09/04/17 11:27) Troponin I (09/04/17 11:27) Urinalysis - C+S If Indicated (09/04/17 11:27) Iv Access Insert/Monitor (09/04/17 11:27) Electrocardiogram (09/04/17 11:27) Ecg Monitoring (09/04/17 11:27) Oximetry (09/04/17 11:27) Oxygen Administration (09/04/17 11:27) Chest, Single Ap (09/04/17 11:27) (Hub Use Only)Inp Phy Cons/Ref (09/04/17 ) (Hub Use Only)Inp Phy Cons/Ref (09/04/17 ) Admit Order (Ed Use Only) (09/04/17 18:13) Labs Laboratory Tests Test 09/04/17 11:33 09/04/17 15:40 White Blood Count 10.6 TH/MM3 Red Blood Count 2.47 MIL/MM3 Hemoglobin 7.0 GM/DL Hematocrit 21.7 % Mean Corpuscular Volume 88.1 FL Mean Corpuscular Hemoglobin 28.6 PG Mean Corpuscular Hemoglobin Concent 32.4 % Red Cell Distribution Width 20.7 % Platelet Count 158 TH/MM3 Mean Platelet Volume 7.8 FL Neutrophils (%) (Auto) 89.9 % Lymphocytes (%) (Auto) 3.1 % Monocytes (%) (Auto) 5.8 % Eosinophils (%) (Auto) 0.5 % Basophils (%) (Auto) 0.7 % Neutrophils # (Auto) 9.5 TH/MM3 Lymphocytes # (Auto) 0.3 TH/MM3 Monocytes # (Auto) 0.6 TH/MM3 Eosinophils # (Auto) 0.1 TH/MM3 Basophils # (Auto) 0.1 TH/MM3 CBC Comment DIFF FINAL Differential Comment Blood Urea Nitrogen 59 MG/DL Creatinine 2.88 MG/DL Random Glucose 132 MG/DL Total Protein 6.5 GM/DL Albumin 3.0 GM/DL Calcium Level 8.2 MG/DL Magnesium Level 2.4 MG/DL Alkaline Phosphatase 181 U/L Aspartate Amino Transf (AST/SGOT) 17 U/L Alanine Aminotransferase (ALT/SGPT) 29 U/L Total Bilirubin 1.2 MG/DL Sodium Level 133 MEQ/L Potassium Level 4.0 MEQ/L Chloride Level 95 MEQ/L Carbon Dioxide Level 27.8 MEQ/L Anion Gap 10 MEQ/L Estimat Glomerular Filtration Rate 22 ML/MIN Total Creatine Kinase 49 U/L Troponin I 0.04 NG/ML B-Type Natriuretic Peptide 319 PG/ML Urine Color YELLOW Urine Turbidity CLEAR Urine pH 5.0 Urine Specific [place] 1.015 Urine Protein NEG mg/dL Urine Glucose (UA) NEG mg/dL Urine Ketones NEG mg/dL Urine Occult Blood NEG Urine Nitrite NEG Urine Bilirubin NEG Urine Urobilinogen 2.0 MG/DL Urine Leukocyte Esterase MOD Urine WBC 5 /hpf Urine Squamous Epithelial Cells 3 /hpf Urine Hyaline Casts 32 /lpf Urine Granular Casts 6 /lpf Urine Mucus FEW /lpf Microscopic Urinalysis Comment CULT NOT INDICATED MDM Medical Decision Making Medical Screen Exam Complete: Yes Emergency Medical Condition: Yes Differential Diagnosis Differential diagnoses include but not limited to electrolyte abnormality, fluid overload, CHF, cellulitis, bilateral lower extremity weakness, edema Narrative Course Patient arrived via EMS and placed on the monitor. IV obtained and blood work sent to lab. CBC, CMP, BNP, magnesium, troponin, CK-MB, UA ordered and pending. EKG ordered and pending. Chest x-ray ordered and pending. CBC shows shows heme ago with 7, past medical records reviewed and patient is chronically anemic. Patient asymptomatic anemia. CMP shows mild hyponatremia at 133 BNP is elevated at 319. Magnesium is within normal limits at 2.4. Troponin is 0.04. CK is 49. UA EKG shows sinus rhythm with heart rate 87, occasional supraventricular premature complexes possible right ventricular conduction delay, nonspecific ST and T-wave abnormality. Chest x-ray shows subsegmental basilar atelectasis that was similar to the August 16 chest x-ray, no new findings. Patient will be admitted for observation for placement in a retirement facility tomorrow. Case management already working on placement. Dr Carbajal accepted admission. Patient will be admitted to observation at this time. Diagnosis Primary Impression: Cellulitis, leg Qualified Codes: L03.119 - Cellulitis of unspecified part of limb Additional Impressions: Anemia Qualified Codes: D64.9 - Anemia, unspecified Edema Qualified Codes: R60.9 - Edema, unspecified Admitting Information Admitting Physician Requests: Observation Referrals: Primary Care Physician Patient Instructions: Cellulitis (ED), General Instructions, Heart Failure (ED) , Leg Edema (ED) Disposition: 01 DISCHARGE HOME Condition: Stable JenelleCristycali PACHECO Sep 04, 2017 12:14
[2017-09-04 12:19] LABS: ALT (GPT) 29 U/L (12-78); AST (GOT) 17 U/L (15-37); BICARBONATE 27.8 MEQ/L (21.0-32.0); BLOOD UREA NITROGEN 59 MG/DL (7-18); CALCIUM 8.2 MG/DL (8.5-10.1); CHLORIDE 95 MEQ/L (98-107); CREATININE 2.88 MG/DL (0.60-1.30); GLOMERULAR FILTRATION RATE 22 ML/MIN (>89); GLUCOSE,RANDOM 132 MG/DL (74-106); MAGNESIUM 2.4 MG/DL (1.5-2.5); SODIUM (NA) 133 MEQ/L (136-145)
--- NOTE | 2017-09-04 12:21 | RADRPT ---
EXAM DATE/TIME: 09/04/2017 11:40 [facility] COMPARISON: CHEST SINGLE AP, August 16, 2017, 18:41. INDICATIONS : Shortness of Breath MEDICAL HISTORY : Hypercholesterolemia. Myocardial infarction. Chronic obstructive pulmonary SURGICAL HISTORY : Appendectomy. Cardiac ablation x 3. Right ankle surgery ENCOUNTER: Initial ACUITY: 1 day PAIN SCORE: 0/10 LOCATION: Bilateral chest FINDINGS: Subsegmental basilar airspace disease. No effusion. No pneumothorax. Heart size normal. CONCLUSION: 1. Subsegmental basilar atelectasis. Findings similar to August 3. No new findings. Mannie Croft MD on September 04, 2017 at 12:18 Board Certified Radiologist. This report was verified electronically.
[2017-09-04 12:24] LABS: ALKALINE PHOSPHATASE 181 U/L (45-117); TOTAL BILIRUBIN ADULT 1.2 MG/DL (0.2-1.0); TOTAL PROTEIN 6.5 GM/DL (6.4-8.2); TROPONIN I 0.04 NG/ML (0.02-0.05)
[2017-09-04 16:31] LABS: BLOOD, URINE NEG (NEG); GLUCOSE,URINE NEG (NEG); HYALINE CAST, URINE 32 /lpf (RARE); KETONE, URINE NEG (NEG); MUCUS URINE FEW /lpf (OCC); NITRITE,URINE NEG (NEG); SQUAMOUS EPITHELIAL CELL URINE 3 /hpf (0-5); URINE COLOR YELLOW (YELLW/STRAW); URINE LEUKOCYTE ESTERASE MOD (NEG)
[2017-09-04 16:35] LABS: BILIRUBIN, URINE NEG (NEG)
--- NOTE | 2017-09-04 17:36 | EKG ---
Date Performed: 09/04/2017 Time Performed: 11:14:06 PTAGE: 61 years EKG: Sinus rhythm WITH OCCASIONAL SUPRAVENTRICULAR PREMATURE COMPLEXES POSSIBLE RIGHT VENTRICULAR CONDUCTION DELAY NON SPECIFIC ST & T-WAVE ABNORMALITY BORDERLINE ECG PREVIOUS TRACING : 08/16/2017 18.18 Compared to prior tracing no significant change DOCTOR: Ja Tatum Interpretating Date/Time 09/04/2017 17:36:08
--- NOTE | 2017-09-04 17:46 | HHI.HP ---
[facility] Primary [facility] No Primary Care Physician Admission Diagnosis Diagnoses: Travel History International Travel<30 Days: No Contact w/Intl Traveler <30 Da: No Traveled to Known Affected Are: No History of Present Illness Home health nurse came by and was told that he was yellow and increased leg swelling along with breathing problems. States he has a history of COPD and chronic leg swelling. He was instructed to come to ED per her recommendations. States that the yellowing jaundice began the past 3 days. Denies any pale or black stools. Reports blood in the stool off and on for the past several months. Last colonoscopy and endoscopy was 1 year ago and repots this as normal. States he is drinking 4-5 short glass vodka and Mountie Dew a day. Last drink was this AM. Denies any nausea, vomiting, abdominal pain. Diarrhea x1 on Thursday, reports constipation for the past month. Last BM this morning. Knows he has to stop drinking, willing to go to detox Complaints of SOB with exertion progressively in the past month. Denies fevers, + cough non-productive. Wears oxygen at home 2L, sleeps with 2 pillows due to SOB. Denies headaches, chest pains, or visual changes. Past Family Social History Past Medical History COPD on home o2 CHF HTN HLD afib on Xarelto Lower back pain Past Surgical History Appendectomy Right forearm fracture with reconstruction. Allergies: Coded Allergies: No Known Allergies (Unverified Allergy, Unknown, 08/16/17) Family History Father: DM Mother: Cardiac history Social History Tobacco: denies Etoh: Illicit drug use: Marijuana 3x a week Physical Exam Vital Signs Vital Signs Date Time Temp Pulse Resp B/P (MAP) Pulse Ox O2 Delivery O2 Flow Rate FiO2 09/04/17 16:30 79 18 107/51 (69) 98 Nasal Cannula 2.00 09/04/17 13:30 82 18 98/54 (69) 99 Nasal Cannula 2.00 09/04/17 11:43 97 Nasal Cannula 2.00 09/04/17 11:43 97 Nasal Cannula 2.00 09/04/17 11:19 84 20 96 Nasal Cannula 2.00 09/04/17 11:19 98.6 85 18 89/52 (64) 97 Nasal Cannula 2.00 09/04/17 11:13 98.3 88 18 89/52 (64) 87 Physical Exam GENERAL: This is a well-nourished, well-developed patient, in no apparent distress. SKIN: No rashes, ecchymoses or lesions. Cool and dry. HEAD: Atraumatic. Normocephalic. No temporal or scalp tenderness. EYES: Pupils equal round and reactive. Extraocular motions intact. No scleral icterus. No injection or drainage. ENT: Nose without bleeding, purulent drainage or septal hematoma. Throat without erythema, tonsillar hypertrophy or exudate. Uvula midline. Airway patent. NECK: Trachea midline. No JVD or lymphadenopathy. Supple, nontender, no meningeal signs. CARDIOVASCULAR: Regular rate and rhythm without murmurs, gallops, or rubs. RESPIRATORY: Clear to auscultation. Breath sounds equal bilaterally. No wheezes , rales, or rhonchi. GASTROINTESTINAL: Abdomen soft, non-tender, nondistended. No hepato-splenomegaly , or palpable masses. No guarding. MUSCULOSKELETAL: Extremities without clubbing, cyanosis, or edema. No joint tenderness, effusion, or edema noted. No calf tenderness. Negative Homans sign bilaterally. NEUROLOGICAL: Awake and alert. Cranial nerves II through XII intact. Motor and sensory grossly within normal limits. Five out of 5 muscle strength in all muscle groups. Normal speech. Laboratory Laboratory Tests Test 09/04/17 11:33 09/04/17 15:40 White Blood Count 10.6 Red Blood Count 2.47 Hemoglobin 7.0 Hematocrit 21.7 Mean Corpuscular Volume 88.1 Mean Corpuscular Hemoglobin 28.6 Mean Corpuscular Hemoglobin Concent 32.4 Red Cell Distribution Width 20.7 Platelet Count 158 Mean Platelet Volume 7.8 Neutrophils (%) (Auto) 89.9 Lymphocytes (%) (Auto) 3.1 Monocytes (%) (Auto) 5.8 Eosinophils (%) (Auto) 0.5 Basophils (%) (Auto) 0.7 Neutrophils # (Auto) 9.5 Lymphocytes # (Auto) 0.3 Monocytes # (Auto) 0.6 Eosinophils # (Auto) 0.1 Basophils # (Auto) 0.1 CBC Comment DIFF FINAL Differential Comment Blood Urea Nitrogen 59 Creatinine 2.88 Random Glucose 132 Total Protein 6.5 Albumin 3.0 Calcium Level 8.2 Magnesium Level 2.4 Alkaline Phosphatase 181 Aspartate Amino Transf (AST/SGOT) 17 Alanine Aminotransferase (ALT/SGPT) 29 Total Bilirubin 1.2 Sodium Level 133 Potassium Level 4.0 Chloride Level 95 Carbon Dioxide Level 27.8 Anion Gap 10 Estimat Glomerular Filtration Rate 22 Total Creatine Kinase 49 Troponin I 0.04 B-Type Natriuretic Peptide 319 Urine Color YELLOW Urine Turbidity CLEAR Urine pH 5.0 Urine Specific [place] 1.015 Urine Protein NEG Urine Glucose (UA) NEG Urine Ketones NEG Urine Occult Blood NEG Urine Nitrite NEG Urine Bilirubin NEG Urine Urobilinogen 2.0 Urine Leukocyte Esterase MOD Urine WBC 5 Urine Squamous Epithelial Cells 3 Urine Hyaline Casts 32 Urine Granular Casts 6 Urine Mucus FEW Microscopic Urinalysis Comment CULT NOT INDICATED Result Diagram: 09/04/17 1133 09/04/17 1133 Caprini VTE Risk Assessment Caprini Risk Assessment Model Point Value = 1 Point Value = 2 Point Value = 3 Point Value = 5 Age 41-60 Minor surgery BMI > 25 kg/m2 Swollen legs Varicose veins or History of unexplained or recurrent spontaneous Oral contraceptives or hormone replacement Sepsis (< 1 month) Serious lung disease, including pneumonia (< 1 month) Abnormal pulmonary function Acute myocardial infarction Congestive heart failure (< 1 month) History of inflammatory bowel disease Medical patient at bed rest Age 61-74 Arthroscopic surgery Major open surgery (> 45 min) Laparoscopic surgery (> 45 min) Malignancy Confined to bed (> 72 hours) Immobilizing plaster cast Central venous access Age >= 75 History of VTE Family history of VTE Factor V Leiden Prothrombin [id number] Lupus anticoagulant Anticardiolipin antibodies Elevated serum homocysteine Heparin-induced thrombocytopenia Other congenital or acquired thrombophilia Stroke (< 1 month) Elective arthroplasty Hip, pelvis, or leg fracture Acute spinal cord injury (< 1 month) Prophylaxis Regimen Total Risk Factor Score Risk Level Prophylaxis Regimen 0-1 Low Early ambulation 2 Moderate Order ONE of the following: *Sequential Compression Device (SCD) *Heparin 5000 units SQ BID 3-4 Higher Order ONE of the following medications: *Heparin 5000 units SQ TID *Enoxaparin/Lovenox 40 mg SQ daily (WT < 150 kg, CrCl > 30 mL/min) *Enoxaparin/Lovenox 30 mg SQ daily (WT < 150 kg, CrCl > 10-29 mL/min) *Enoxaparin/Lovenox 30 mg SQ BID (WT < 150 kg, CrCl > 30 mL/min) AND/OR *Sequential Compression Device (SCD) 5 or more Highest Order ONE of the following medications: *Heparin 5000 units SQ TID (Preferred with Epidurals) *Enoxaparin/Lovenox 40 mg SQ daily (WT < 150 kg, CrCl > 30 mL/min) *Enoxaparin/Lovenox 30 mg SQ daily (WT < 150 kg, CrCl > 10-29 mL/min) *Enoxaparin/Lovenox 30 mg SQ BID (WT < 150 kg, CrCl > 30 mL/min) AND *Sequential Compression Device (SCD) Physician Certification Order for Inpatient Services The services are ordered in accordance with Medicare regulations or non- Medicare payer requirements, as applicable. In the case of services not specified as inpatient-only, they are appropriately provided as inpatient services in accordance with the 2-midnight benchmark. days is the estimated time the patient will need to remain in the hospital, assuming treatment plan goals are met and no additional complications. Charo Murcia Sep 04, 2017 17:46
--- NOTE | 2017-09-04 18:18 | HHI.HP ---
HPI Service [facility] Primary Care Physician No Primary Care Physician Admission Diagnosis Diagnoses: (1) CHF (congestive heart failure) (2) A-fib (3) Hyponatremia (4) Acute on chronic kidney failure (5) Anemia Chief Complaint: Worsening leg swelling Travel History International Travel<30 Days: No Contact w/Intl Traveler <30 Da: No Traveled to Known Affected Are: No History of Present Illness A 61-year-old male with past medical history of HTN, CHF, A. fib on Xarelto, HLD ,COPD, bilateral leg swelling, and alcohol abuse. Patient was brought to ED via [facility] after patient recommended he come in due to worsening leg swelling, jaundice, and increased SOB. States he has a history of COPD and chronic leg swelling. He repots that his leg swelling for the past 3 days has been worse than usual and he has been unable to walk with his walker. Nurse noticed yellowing jaundice that began past 3 days ago. Denies any pale or black stools. Reports blood in the stool off and on for the past several months, nothing consistent. Last colonoscopy and endoscopy was 1 year ago and repots this as normal. States he continues to drink and is drinking 4-5 short glass vodka and Mountie Dew a day. Last drink was this AM. Denies any nausea, vomiting, abdominal pain. Diarrhea x1 on Thursday, reports constipation for the past month. Last BM this morning with constipation. Knows he has to stop drinking and states that this time he is willing to go to rehab and wants to stop drinking. Complaints of SOB with exertion progressively in the past month. Denies chest pains, fevers, + cough non-productive. Wears oxygen at home 2L, sleeps with 2 pillows due to SOB. Denies headaches, lightheadedness, or syncopal episodes. Review of Systems Constitutional: COMPLAINS OF: Weight gain, DENIES: Diaphoretic episodes, Fatigue, Fever, Weight loss, Chills, Dizziness Endocrine: DENIES: Heat/cold intolerance, Polydipsia, Polyuria Eyes: DENIES: Blurred vision, Diplopia, Eye inflammation, Eye pain Ears, nose, mouth, throat: DENIES: Tinnitus, Hearing loss, Vertigo, Nasal discharge, Oral lesions Respiratory: COMPLAINS OF: Cough, DENIES: Apneas, Snoring, Wheezing, Hemoptysis Cardiovascular: COMPLAINS OF: Dyspnea on Exertion, PND, Lower Extremity Edema, DENIES: Chest pain, Palpitations, Syncope Gastrointestinal: DENIES: Abdominal pain, Black stools, Bloody stools Genitourinary: DENIES: Sexual dysfunction, Urinary frequency Musculoskeletal: DENIES: Muscle aches, Stiffness Integumentary: DENIES: Abnormal pigmentation, Nail changes Hematologic/lymphatic: DENIES: Bruising, Lymphadenopathy Immunologic/allergic: COMPLAINS OF: Eczema, DENIES: Urticaria Neurologic: COMPLAINS OF: Abnormal gait, DENIES: Headache, Localized weakness, Paresthesias, Seizures, Speech Problems Psychiatric: COMPLAINS OF: Anxiety, Depression, DENIES: Confusion, Mood changes , Hallucinations Except as stated in HPI: all other systems reviewed are Neg Past Family Social History Past Medical History COPD on home o2 CHF (echo 02/03/17 65%) CAD HTN HLD afib on Xarelto Lower back pain Past Surgical History Appendectomy Right forearm fracture with reconstruction. Ablation tonsillectomy Allergies: Coded Allergies: No Known Allergies (Unverified Allergy, Unknown, 08/16/17) Family History Father: DM Mother: Cardiac history Social History Tobacco: denies Etoh: Illicit drug use: Marijuana 3x a week Physical Exam Vital Signs Vital Signs Date Time Temp Pulse Resp B/P (MAP) Pulse Ox O2 Delivery O2 Flow Rate FiO2 09/04/17 16:30 79 18 107/51 (69) 98 Nasal Cannula 2.00 09/04/17 13:30 82 18 98/54 (69) 99 Nasal Cannula 2.00 09/04/17 11:43 97 Nasal Cannula 2.00 09/04/17 11:43 97 Nasal Cannula 2.00 09/04/17 11:19 84 20 96 Nasal Cannula 2.00 09/04/17 11:19 98.6 85 18 89/52 (64) 97 Nasal Cannula 2.00 09/04/17 11:13 98.3 88 18 89/52 (64) 87 Physical Exam GENERAL: Obese white male, resting comfortably in bed. SKIN: Bilateral lower legs with redness, edema +4, scant amount of dry blood on left leg. Cool and dry. HEAD: Atraumatic. Normocephalic. EYES: Pupils equal round and reactive. Extraocular motions intact. No scleral icterus/jaundice. No injection or drainage. ENT: Nose without bleeding, purulent drainage or septal hematoma. Throat without erythema. Airway patent. NECK: Trachea midline. No JVD. Supple, nontender, no meningeal signs. CARDIOVASCULAR: Regular rate and rhythm without murmurs, gallops, or rubs. RESPIRATORY: Clear to auscultation on bilateral upper lobes no wheezes, rales, or rhonchi, unable to auscultate posterior lobes due to body habitus. GASTROINTESTINAL: Abdomen soft, obese, non-tender, nondistended. No guarding. MUSCULOSKELETAL: Extremities without cyanosis. Bilateral leg and foot edema +4. No joint tenderness, effusion, or edema noted. No calf tenderness. Negative Homans sign bilaterally. NEUROLOGICAL: Awake and alert. Cranial nerves II through XII intact. Motor and sensory grossly within normal limits. Bilateral upper arm strength +4, Bilateral leg strength +3. Normal speech. Laboratory Laboratory Tests Test 09/04/17 11:33 09/04/17 15:40 White Blood Count 10.6 Red Blood Count 2.47 Hemoglobin 7.0 Hematocrit 21.7 Mean Corpuscular Volume 88.1 Mean Corpuscular Hemoglobin 28.6 Mean Corpuscular Hemoglobin Concent 32.4 Red Cell Distribution Width 20.7 Platelet Count 158 Mean Platelet Volume 7.8 Neutrophils (%) (Auto) 89.9 Lymphocytes (%) (Auto) 3.1 Monocytes (%) (Auto) 5.8 Eosinophils (%) (Auto) 0.5 Basophils (%) (Auto) 0.7 Neutrophils # (Auto) 9.5 Lymphocytes # (Auto) 0.3 Monocytes # (Auto) 0.6 Eosinophils # (Auto) 0.1 Basophils # (Auto) 0.1 CBC Comment DIFF FINAL Differential Comment Blood Urea Nitrogen 59 Creatinine 2.88 Random Glucose 132 Total Protein 6.5 Albumin 3.0 Calcium Level 8.2 Magnesium Level 2.4 Alkaline Phosphatase 181 Aspartate Amino Transf (AST/SGOT) 17 Alanine Aminotransferase (ALT/SGPT) 29 Total Bilirubin 1.2 Sodium Level 133 Potassium Level 4.0 Chloride Level 95 Carbon Dioxide Level 27.8 Anion Gap 10 Estimat Glomerular Filtration Rate 22 Total Creatine Kinase 49 Troponin I 0.04 B-Type Natriuretic Peptide 319 Urine Color YELLOW Urine Turbidity CLEAR Urine pH 5.0 Urine Specific [place] 1.015 Urine Protein NEG Urine Glucose (UA) NEG Urine Ketones NEG Urine Occult Blood NEG Urine Nitrite NEG Urine Bilirubin NEG Urine Urobilinogen 2.0 Urine Leukocyte Esterase MOD Urine WBC 5 Urine Squamous Epithelial Cells 3 Urine Hyaline Casts 32 Urine Granular Casts 6 Urine Mucus FEW Microscopic Urinalysis Comment CULT NOT INDICATED Result Diagram: 09/04/17 1133 09/04/17 1133 Imaging Last Impressions Chest X-Ray 09/04/17 1127 Signed Impressions: Service Date/Time: Monday, September 04, 2017 11:40 - CONCLUSION: 1. Subsegmental basilar atelectasis. Findings similar to August 16. No new findings. MD Christ Landin VTE Risk Assessment Caprinaugust VTE Risk Assessment: Mod/High Risk (score >= 2) Caprini Risk Assessment Model Point Value = 1 Point Value = 2 Point Value = 3 Point Value = 5 Age 41-60 Minor surgery BMI > 25 kg/m2 Swollen legs Varicose veins or History of unexplained or recurrent spontaneous Oral contraceptives or hormone replacement Sepsis (< 1 month) Serious lung disease, including pneumonia (< 1 month) Abnormal pulmonary function Acute myocardial infarction Congestive heart failure (< 1 month) History of inflammatory bowel disease Medical patient at bed rest Age 61-74 Arthroscopic surgery Major open surgery (> 45 min) Laparoscopic surgery (> 45 min) Malignancy Confined to bed (> 72 hours) Immobilizing plaster cast Central venous access Age >= 75 History of VTE Family history of VTE Factor V Leiden Prothrombin [id number] Lupus anticoagulant Anticardiolipin antibodies Elevated serum homocysteine Heparin-induced thrombocytopenia Other congenital or acquired thrombophilia Stroke (< 1 month) Elective arthroplasty Hip, pelvis, or leg fracture Acute spinal cord injury (< 1 month) Prophylaxis Regimen Total Risk Factor Score Risk Level Prophylaxis Regimen 0-1 Low Early ambulation 2 Moderate Order ONE of the following: *Sequential Compression Device (SCD) *Heparin 5000 units SQ BID 3-4 Higher Order ONE of the following medications: *Heparin 5000 units SQ TID *Enoxaparin/Lovenox 40 mg SQ daily (WT < 150 kg, CrCl > 30 mL/min) *Enoxaparin/Lovenox 30 mg SQ daily (WT < 150 kg, CrCl > 10-29 mL/min) *Enoxaparin/Lovenox 30 mg SQ BID (WT < 150 kg, CrCl > 30 mL/min) AND/OR *Sequential Compression Device (SCD) 5 or more Highest Order ONE of the following medications: *Heparin 5000 units SQ TID (Preferred with Epidurals) *Enoxaparin/Lovenox 40 mg SQ daily (WT < 150 kg, CrCl > 30 mL/min) *Enoxaparin/Lovenox 30 mg SQ daily (WT < 150 kg, CrCl > 10-29 mL/min) *Enoxaparin/Lovenox 30 mg SQ BID (WT < 150 kg, CrCl > 30 mL/min) AND *Sequential Compression Device (SCD) Assessment and Plan Assessment and Plan A 61-year-old male with past medical history of HTN, CHF, A. fib on Xarelto, HLD , COPD, bilateral leg swelling, and alcohol abuse. Patient was brought to ED via [facility] after home health nurse recommended he come in due to worsening leg swelling, jaundice, and increased SOB. Bilateral leg swelling CHF history - Patient with a history of CHF, noncompliant - BNP 319, was 124 back in 05/14/17 - Will start oral Bumex 2mg Daily - Follow up on leg edema - Review medications and resume once verified by nurse, order for nurse to do this placed. - PT/OT -CM for placement, patient agrees to go to SNF. Afib - Continue Digoxin, Diltiazem, and Xarelto - Monitor HR Acute on chronic renal failure - Patient with history of ongoing renal insufficiency - Renal function decreased with [id number], creatinine 2.88, GFR 59, Creatinine is relatively the same as past renal function from prior in July - Will need outpatient follow up with nephrology Anemia, chronic - Patient asymptomatic, Hgb 7.0, Hct 21.7 - Labs consistent to prior labs - Reports last colonoscopy and endoscopy 1ry ago and normal, however reports on and off blood in stool - Follow CBC tomorrow - Will need GI or hematology workup when DC could also be secondary to CKD Alcohol abuse, chronic and ongoing issue - [facility] protocol - Monitor for DT's Hyponatremia - NA 133, possibly secondary to alcohol abuse - Follow labs tomorrow VTE - Continue Xarelto Code Status Full code Attending Statement The exam, history, and the medical decision-making described in the above note were completed with the assistance of the mid-level provider. I reviewed and agree with the findings presented. I attest that I had a [id number] encounter with the patient on the same day, and personally performed and documented my assessment and findings in the medical record. Problem Qualifiers (1) Anemia: Qualified Codes: D64.9 - Anemia, unspecified Charo Murcia Sep 04, 2017 18:18 Murtaza Carbajal DO Sep 04, 2017 19:11
[2017-09-04] MEDS ORDERED: oxyCODONE/ACETAMINOPHEN 5 MG/325 MG TAB PO PRN (18:30)
[2017-09-04] MEDS ORDERED: MORPHINE SULFATE 4 MG/ML INJ IV PUSH PRN ×2 (18:30)
[2017-09-04] MEDS ORDERED: BISACODYL 10 MG SUPP RECTAL PRN (18:30)
[2017-09-04] MEDS ORDERED: SODIUM CHLORIDE 0.9% FLUSH 10 ML FLUSH IV FLUSH PRN (18:30)
[2017-09-04] MEDS ORDERED: NALOXONE HCL 0.4 MG/ML AMP IV PUSH PRN (18:30)
[2017-09-04] MEDS ORDERED: oxyCODONE/ACETAMINOPHEN 10 MG/325 MG TAB PO PRN (18:30)
[2017-09-04] MEDS ORDERED: SENNOSIDES 8.6 MG TAB PO PRN (18:30)
[2017-09-04] MEDS ORDERED: LACTULOSE SYRUP 20 GM/30 ML CUP PO PRN (18:30)
[2017-09-04] MEDS ORDERED: ACETAMINOPHEN 325 MG TAB PO PRN (18:30)
[2017-09-04] MEDS ORDERED: ONDANSETRON HCL 4 MG/2 ML VIAL IVP PRN (18:30)
[2017-09-04] MEDS ORDERED: MAGNESIUM HYDROXIDE SUSP 30 ML CUP PO PRN (18:30)
[2017-09-04] MEDS ORDERED: MORPHINE SULFATE 2 MG/ML INJ IV PUSH PRN ×2 (18:45)
[2017-09-04] MEDS ORDERED: LORazepam 2 MG/ML VIAL IV PUSH PRN ×3 (19:15)
[2017-09-04] MEDS ORDERED: LORazepam 2 MG TAB PO PRN (19:15)
[2017-09-04] MEDS ORDERED: FLUMAZENIL 0.5 MG/5 ML VIAL IV PUSH PRN (19:15)
[2017-09-04] MEDS: acetaZOLAMIDE 125 MG TAB PO SCH (22:22)
[2017-09-04] MEDS: guaiFENesin E.R. 600 MG TAB PO SCH (22:22)
[2017-09-04] MEDS: BUMETANIDE 1 MG TAB PO SCH (22:22)
[2017-09-04] MEDS: PANTOPRAZOLE SOD 40 MG DELAYED RELEASE TAB PO SCH (22:22)
[2017-09-04] MEDS: LORazepam 1 MG TAB PO PRN (22:23)
[2017-09-04] MEDS: DOCUSATE SODIUM 50 MG/SENNA 8.6 MG TAB PO SCH (22:23)
[2017-09-04] MEDS: ATORVASTATIN 40 MG TAB PO SCH (22:23)
[2017-09-04] MEDS: SODIUM CHLORIDE 0.9% FLUSH 10 ML FLUSH IV FLUSH SCH (22:23)
[2017-09-04] MEDS: BUDESONIDE-FORMOTEROL 160/4.5 MCG INHALER INH SCH (23:14)
[2017-09-05] VITALS (7 sets, daily range): BP systolic 113–141; BP diastolic 57–89; PULSE 87–110; RESP 18–26; TEMP 97.3–98.7; O2SAT 92–99
[2017-09-05] MEDS: LORazepam 2 MG/ML VIAL IV PUSH PRN (03:31)
[2017-09-05] MEDS: RESP: ALBUTEROL 2.5 MG/IPRATROPIUM 0.5 MG NEB (PRN) NEB ×3 (03:43→22:21)
[2017-09-05 08:40] LABS: AUTOMATED NEUTROPHIL # 8.8 TH/MM3 (1.8-7.7); BASOPHIL # 0.1 TH/MM3 (0-0.2); BASOPHIL % 0.6 % (0.0-2.0); EOSINOPHIL % 0.3 % (0.0-4.0); HEMATOCRIT 23.7 % (39.0-51.0); HEMOGLOBIN 7.3 GM/DL (13.0-17.0); LYMPH % 4.8 % (9.0-44.0); LYMPHOCYTE # 0.5 TH/MM3 (1.0-4.8); MEAN CORPUSCULAR HEMOGLOBIN 27.4 PG (27.0-34.0); MEAN CORPUSCULAR HGB CONC 30.8 % (32.0-36.0); MEAN PLATELET VOLUME 7.7 FL (7.0-11.0); MONO % 5.5 % (0.0-8.0); MONOCYTE # 0.5 TH/MM3 (0-0.9); NEUT % 88.8 % (16.0-70.0); PLATELET COUNT 159 TH/MM3 (150-450); RED BLOOD COUNT 2.66 MIL/MM3 (4.50-5.90); RED CELL DISTRIBUTION WIDTH 21.7 % (11.6-17.2); WHITE BLOOD COUNT 9.9 TH/MM3 (4.0-11.0)
[2017-09-05 09:05] LABS: ALBUMIN 2.8 GM/DL (3.4-5.0); ALT (GPT) 27 U/L (12-78); AST (GOT) 36 U/L (15-37); BICARBONATE 29.6 MEQ/L (21.0-32.0); BLOOD UREA NITROGEN 58 MG/DL (7-18); CALCIUM 8.3 MG/DL (8.5-10.1); CHLORIDE 95 MEQ/L (98-107); CREATININE 2.65 MG/DL (0.60-1.30); GLOMERULAR FILTRATION RATE 25 ML/MIN (>89); GLUCOSE,RANDOM 154 MG/DL (74-106); SODIUM (NA) 134 MEQ/L (136-145)
[2017-09-05 09:16] LABS: ALKALINE PHOSPHATASE 165 U/L (45-117); TOTAL BILIRUBIN ADULT 1.3 MG/DL (0.2-1.0); TOTAL PROTEIN 6.5 GM/DL (6.4-8.2)
[2017-09-05] MEDS: FLUTICASONE 100 MCG/VILANTEROL 25 MCG INHALER INH SCH (09:29)
[2017-09-05] MEDS: SODIUM CHLORIDE 0.9% FLUSH 10 ML FLUSH IV FLUSH SCH ×2 (09:30→21:26)
[2017-09-05] MEDS: BUDESONIDE-FORMOTEROL 160/4.5 MCG INHALER INH SCH ×2 (09:32→21:26)
[2017-09-05] MEDS: DIGOXIN 0.125 MG TAB PO SCH (09:34)
[2017-09-05] MEDS: RIVAROXABAN 15 MG TAB PO SCH (09:34)
[2017-09-05] MEDS: CALCIUM ACETATE 667 MG CAP PO SCH ×3 (09:34→18:01)
[2017-09-05] MEDS: DOCUSATE SODIUM 50 MG/SENNA 8.6 MG TAB PO SCH ×2 (09:34→21:28)
[2017-09-05] MEDS: DILTIAZEM-CD 240 MG CAP ER PO SCH (09:34)
[2017-09-05] MEDS: TAMSULOSIN HCL 0.4 MG CAP PO SCH (09:34)
[2017-09-05] MEDS: guaiFENesin E.R. 600 MG TAB PO SCH ×2 (09:34→21:27)
[2017-09-05] MEDS: PANTOPRAZOLE SOD 40 MG DELAYED RELEASE TAB PO SCH ×2 (09:35→21:27)
[2017-09-05] MEDS: BUMETANIDE 1 MG TAB PO SCH (09:35)
[2017-09-05] MEDS: acetaZOLAMIDE 125 MG TAB PO SCH (09:42)
--- NOTE | 2017-09-05 10:33 | HHI.PR ---
Subjective Remarks Follow up on patient with dyspnea, anasarca. Patient seen and examined. Patient reports breathing is a little improved. He denies any chest pain. He admits he has continued to drink heavily since his last discharge. He reports being compliant with his medications. He denies any nausea, vomiting or abdominal pain. He denies any fever or chills. Objective Vitals Vital Signs Date Time Temp Pulse Resp B/P (MAP) Pulse Ox O2 Delivery O2 Flow Rate FiO2 09/05/17 07:30 97.7 104 20 141/89 (106) 99 09/05/17 07:20 95 2.00 09/05/17 04:03 98.7 87 18 121/64 (83) 95 09/04/17 19:55 93 Nasal Cannula 2.00 09/04/17 19:45 98.8 88 18 98/57 (71) 100 09/04/17 18:17 85 18 117/58 (77) 98 Nasal Cannula 2.00 09/04/17 16:30 79 18 107/51 (69) 98 Nasal Cannula 2.00 09/04/17 13:30 82 18 98/54 (69) 99 Nasal Cannula 2.00 09/04/17 11:43 97 Nasal Cannula 2.00 09/04/17 11:43 97 Nasal Cannula 2.00 09/04/17 11:19 84 20 96 Nasal Cannula 2.00 09/04/17 11:19 98.6 85 18 89/52 (64) 97 Nasal Cannula 2.00 09/04/17 11:13 98.3 88 18 89/52 (64) 87 I/O 09/04/17 09/04/17 09/04/17 09/05/17 09/05/17 09/05/17 07:00 15:00 23:00 07:00 15:00 23:00 Intake Total 200 ml Output Total 750 ml Balance -550 ml Intake Oral 200 ml Output Urine Total 750 ml Result Diagram: 09/05/1771209/05/17712 Imaging Last Impressions Chest X-Ray 09/04/17 1127 Signed Impressions: Service Date/Time: Monday, September 04, 2017 11:40 - CONCLUSION: 1. Subsegmental basilar atelectasis. Findings similar to August 16. No new findings. Mannie Croft MD Objective Remarks GENERAL: Well-nourished, well-developed obese male patient in NAD. Awake, somewhat somnolent but oxygen not on patient when I entered the room. SKIN: Chronic venous stasis changes noted bilateral lower legs right greater than left with thickened skin, 4+ pitting edema. HEAD: Normocephalic. Atraumatic. EYES: EOMI. No scleral icterus. No injection or drainage. ENT: No nasal bleeding or discharge. Mucous membranes pink and moist. NECK: Trachea midline. CARDIOVASCULAR: Tachycardic, distant heart sounds. RESPIRATORY: No accessory muscle use. Diminished in bilateral bases but clear to auscultation. No wheezing appreciated. GASTROINTESTINAL: Abdomen soft, non-tender, nondistended. Normoactive bowel sounds x4. 3+ pitting edema noted over the abdomen. MUSCULOSKELETAL: 4+ pitting edema extending up into bilateral thighs. NEUROLOGICAL: Awake but somewhat somnolent. Weak bilateral upper and lower extremities. Normal speech. PSYCHIATRIC: Appropriate mood and affect; insight and judgment normal. Medications and IVs Current Medications Medications (Trade) Dose Ordered Sig/Delilah Route Start Time Stop Time Status Last Admin (NS Flush) 2 ml UNSCH PRN IV FLUSH 09/04/17 18:30 (NS Flush) 2 ml BID IV FLUSH 09/04/17 21:00 09/05/17 09:30 (Tylenol) 650 mg Q4H PRN PO 09/04/17 18:30 (Zofran Inj) 4 mg Q6H PRN IVP 09/04/17 18:30 (Percocet 5-325 Mg) 1 tab Q6H PRN PO 09/04/17 18:30 (Percocet 10-325 Mg) 1 tab Q6H PRN PO 09/04/17 18:30 (Narcan Inj) 0.4 mg UNSCH PRN IV PUSH 09/04/17 18:30 (Coco-Colace) 1 tab BID PO 09/04/17 21:00 09/05/17 09:34 (Milk Of Magnesia Liq) 30 ml Q12H PRN PO 09/04/17 18:30 (Senokot) 17.2 mg Q12H PRN PO 09/04/17 18:30 (Dulcolax Supp) 10 mg DAILY PRN RECTAL 09/04/17 18:30 (Lactulose Liq) 30 ml DAILY PRN PO 09/04/17 18:30 (Duoneb Neb) 1 ampule Q4HR NEB PRN NEB 09/04/17 18:45 09/05/17 03:43 (Mucinex Er) 600 mg BID PO 09/04/17 21:00 09/05/17 09:34 (Bumetanide) 2 mg DAILY PO 09/04/17 18:45 09/05/17 09:35 (Morphine Inj) 2 mg Q3H PRN IV PUSH 09/04/17 18:45 (Morphine Inj) 4 mg Q3H PRN IV PUSH 09/04/17 18:45 (Romazicon Inj) 0.2 mg Q1M PRN IV PUSH 09/04/17 19:15 (Ativan) 1 mg Q4H PRN PO 09/04/17 19:15 09/04/17 22:23 (Ativan Inj) 1 mg Q4H PRN IV PUSH 09/04/17 19:15 09/05/17 03:31 (Ativan) 2 mg Q2H PRN PO 09/04/17 19:15 (Ativan Inj) 2 mg Q2H PRN IV PUSH 09/04/17 19:15 (Ativan Inj) 2 mg Q1H PRN IV PUSH 09/04/17 19:15 (Ativan Inj) 2 mg Q15M PRN IV PUSH 09/04/17 19:15 (Diamox) 125 mg BID PO 09/04/17 21:00 09/05/17 09:42 (Lipitor) 40 mg HS PO 09/04/17 21:00 09/04/17 22:23 (Symbicort 160-4.5 Mcg Inh) 2 puff Q12HR INH 09/04/17 21:00 09/05/17 09:32 (Phoslo) 667 mg TID PO 09/05/17 09:00 09/05/17 09:34 (Lanoxin) 0.125 mg DAILY PO 09/05/17 09:00 09/05/17 09:34 (Cardizem Cd) 240 mg DAILY PO 09/05/17 09:00 09/05/17 09:34 (Breo Ellipta 100-25 Inh) 1 puff DAILY INH 09/05/17 09:00 09/05/17 09:29 (Protonix) 40 mg Q12HR PO 09/04/17 21:00 09/05/17 09:35 (Xarelto) 15 mg DAILY PO 09/05/17 09:00 09/05/17 09:34 (Flomax) 0.4 mg DAILY PO 09/05/17 09:00 09/05/17 09:34 A/P Problem List: (1) CHF (congestive heart failure) ICD Code: I50.9 - Heart failure, unspecified Status: Chronic (2) A-fib ICD Code: I48.91 - Unspecified atrial fibrillation Status: Chronic (3) Hyponatremia ICD Code: E87.1 - Hypo-osmolality and hyponatremia Status: Acute (4) Acute on chronic kidney failure ICD Code: N17.9 - Acute kidney failure, unspecified; N18.9 - Chronic kidney disease, unspecified (5) Anemia ICD Code: D64.9 - Anemia, unspecified Status: Acute Assessment and Plan A 61-year-old male with past medical history of HTN, CHF, A. fib on Xarelto, HLD , COPD, bilateral leg swelling, MRSA colonized and alcohol abuse. Patient was brought to ED via [facility] after home health nurse recommended he come in due to worsening leg swelling, jaundice, and increased SOB. Anasarca Acute on chronic diastolic CHF Acute on chronic hypoxic respiratory failure, on 2L at home Obstructive sleep apnea Obese hypoventilation syndrome Pulmonary hypertension - Patient with a history of CHF, noncompliant. Echo 02/03/17 EF 65%. Obtain echocardiogram. - BNP 319, was 124 back in 05/14/17 - Patient on Diamox and torsemide at home. D/C Bumex. Increase dose of home dose of Torsemide from 40mg daily to 40 mg BID. Continue on Diamox. Give dose of Albumin IV. Consult Nephrology, appreciate assistance. - Strict I&Os, daily weights, Sodium/fluid restricted diet. - Continue with PT, discussed with Kimo PT patient desatting to 77% with short ambulation in room on 4 L of oxygen - Recommend follow-up with crew car driver for sleep study - CM for placement, patient agrees to go to SNF - accepted at [facility], patient unsafe for discharge at this time. History of hyperphosphatemia secondary to acute renal failure - Phoslo resumed at admission - Obtain phosphorus level Afib - Continue Digoxin, Diltiazem, and Xarelto - patient on Lopressor 100mg po q8h at home. Resume at lower dose of 25mg po q8h given low BP. - Obtain digoxin level - Monitor HR Acute on chronic renal failure stage 3, underlying nephrosclerosis Secondary hyperparathyroidism - baseline appears to around 1.5-1.6 prior to July, since Jul creatinine 2-3, ? new baseline - Renal function decreased with BUN 59, creatinine 2.88, GFR 22 - Continue on cholecalciferol 2000 units daily - Nephrology consulted, appreciate assistance - avoid nephrotoxic agents - continue to monitor kidney function Anemia, chronic, worsening - Hgb 7.0, Hct 21.7 ?symptomatic. - Hgb improved to 7.3 today. Continue to monitor. - suspect mixed pattern, reviewed iron studies from last admission. Obtain B12/folate level. Hemoccult stool ordered. Start po iron supplementation. - Reports last colonoscopy and endoscopy 1ry ago and normal, however reports on and off blood in stool COPD, not in acute exacerbation - Duonebs as needed - Continue on home MDI therapy - monitor respiratory status Alcohol abuse, chronic and ongoing issue Alcoholic fatty liver - [facility] protocol - Monitor for DT's - Thiamine/folic acid/MVI daily - Patient advised strongly on complete alcohol cessation Hyponatremia, chronic - NA 133, possibly secondary to alcohol abuse - Asymptomatic Chronic bilateral venous stasis dermatitis - MRSA colonization - Resume previous wound care notes from prior admission - Elevate BLEs when able Hyperglycemia - no reported hx of DM - last HgbA1c 5.6 08/18/17 - possibly due to recent steroid use - accucheks and ISS for now BPH - continue on Flomax 0.4mg daily VTE - Continue Xarelto Discussed with patient, nursing staff and Dr. Lewis Discharge Planning Pending improvement and clinical course, nephrology clearance Problem Qualifiers (1) Anemia: Qualified Codes: D64.9 - Anemia, unspecified Annalee Alarcon Sep 05, 2017 10:33
[2017-09-05] MEDS ORDERED: TORSEMIDE 20 MG TAB PO ONE (11:15)
[2017-09-05] MEDS ORDERED: ALBUMIN 25% INJ 100 ML IV ONE (11:30)
[2017-09-05] MEDS ORDERED: FOLIC ACID 1 MG TAB PO ONE (12:00)
[2017-09-05] MEDS ORDERED: THIAMINE HCL 100 MG TAB PO ONE (12:00)
[2017-09-05] MEDS ORDERED: MULTIVITAMIN TAB PO ONE (12:00)
[2017-09-05] MEDS ORDERED: PILL SPLITTER OTHER PRN (13:00)
[2017-09-05] MEDS: MULTIVITAMIN TAB PO SCH (13:01)
[2017-09-05] MEDS: THIAMINE HCL 100 MG TAB PO SCH (13:07)
[2017-09-05 13:12] LABS: PHOSPHORUS 4.5 MG/DL (2.5-4.9)
[2017-09-05 13:37] LABS: DIGOXIN 1.9 NG/ML (0.8-2.0); FOLATE 8.7 NG/ML (3.1-17.5)
[2017-09-05] MEDS ORDERED: METOPROLOL TARTRATE 25 MG TAB PO ONE (15:30)
[2017-09-05] MEDS ORDERED: GLUCAGON 1 MG/ML VIAL OTHER PRN (15:45)
[2017-09-05] MEDS ORDERED: DEXTROSE 50% IN WATER 50 ML VIAL(D50) IV PUSH PRN (15:45)
[2017-09-05] MEDS ORDERED: TORSEMIDE 20 MG TAB PO SCH (18:00)
[2017-09-05] MEDS: INSULIN ASPART SUPPLEMENTAL SCALE SQ SCH ×2 (18:03→21:29)
--- NOTE | 2017-09-05 20:06 | MB ---
cc: CASEY LANZA MD DATE OF CONSULTATION: 09/05/2017. REASON FOR CONSULTATION: Chronic kidney disease and fluid overload status. HISTORY OF PRESENT ILLNESS: This is a 61-year-old male known to me from before with past medical history of ischemic heart disease, history of congestive heart failure, lymphedema of the legs, chronic kidney disease with recurrent acute kidney injury, multiple admissions for congestive heart multiple, admission for fluid overload status who came to the hospital with complaint of increased swelling of the legs and worsening shortness of breath. I was called to see the patient for the management of fluid and renal failure. The patient has known history of chronic kidney disease and has been admitted multiple times in the last six months or so with the same complaint of fluid overload and he has some cellulitis and lymphedema of the legs. The patient has been seen by multiple nephrologists including me, Dr. Matute and Dr. De Oliveira, but he has not really been following with any hydraulic mechanic as an outpatient. The patient was last discharged on August 21, 2011, and now he came in here with increased swelling of his legs and worsening shortness of breath. The patient claims to be taking his medications regularly. He also has history of alcoholism and COPD and he is staying with a friend the right now who is helping him out and he has an on-call nurse going to see him. According to the patient, the nurse noticed that he has been more yellow in the last three days. He denies any GI bleeding or melena now but he has a past history of GI bleeding. He still continues to drink four to five shot glasses of vodka. He denies any chest pain but has mild cough which is mainly dry but sometimes with sputum. There are no palpitations. No nausea or vomiting. He noticed worsening swelling of the legs. There is no dysuria or hematuria or difficulty in passing urine. PAST MEDICAL HISTORY: 1. Ischemic heart disease. 2. Atrial fibrillation. 3. Congestive heart failure with diastolic dysfunction. 4. Chronic obstructive pulmonary disease. 5. Chronic back pain. 6. Chronic kidney disease. 7. Recurrent acute kidney injury. PAST SURGICAL HISTORY: 1. Appendectomy. 2. Tonsillectomy. 3. Right forearm surgery. 4. Ablation surgery. REVIEW OF SYSTEMS: The patient has worsening of the shortness of breath more on exertion but now also on rest. He also has orthopnea. He has cough which is mainly dry. No chest pain. No palpitation. No nausea, vomiting, increased swelling of the legs. No abdominal pain. No history of diarrhea. No dysuria, hematuria or difficulty passing urine. SOCIAL HISTORY: Patient has no history of smoking. He has been drinking alcohol as mentioned above. FAMILY HISTORY: Family history is noncontributory. ALLERGIES: He has NO KNOWN DRUG ALLERGIES. MEDICATIONS: Currently he is on following medications: 1. Mucinex ER 600 milligrams twice a day. 2. Coco-Colace one tablet twice a day. 3. Diamox 125 milligrams twice a day. 4. Ferrous sulfate 325 milligrams twice a day. 5. Furosemide 40 milligrams twice a day. 6. Digoxin 0.125 milligrams daily. 7. Cardizem CD 240 milligrams once a day. 8. Xarelto 50 milligrams once a day. 9. Flomax 0.4 milligrams daily. 10. Vitamin B1 100 milligrams once a day. 11. Folic acid 1 milligrams daily. 12. Theragran one tablet daily. 13. Ascorbic acid 250 milligrams daily. 14. Vitamin D3 2000 units once a day. 15. Lipitor 40 milligrams at bedtime. 16. Symbicort inhaler. 17. Protonix 40 milligrams q. 12 hours. 18. Lopressor 25 milligrams q. 8 hours. 19. PhosLo 667 three times a day. 20. Insulin as per sliding scale. 21. Zofran as needed. 22. Percocet as needed. PHYSICAL EXAMINATION: GENERAL: On examination, the patient is awake and alert and he is in mild to moderate respiratory distress. VITAL SIGNS: The last blood pressure was 121/67, temperature 97.7, oxygen saturation on two liters nasal cannula is 93% to 95%. HEAD, EYES, EARS, NOSE, THROAT: The pupils are mid constricted. Nonicteric sclerae. Conjunctivae are pale. NECK: The neck is supple. JVD is mildly elevated. LUNGS: The patient has bilateral decreased air entry with basal rales and diffuse wheezing. HEART: S1 and S2 irregular rhythm. ABDOMEN: Abdomen distended, soft and lax. There is some subcutaneous edema. EXTREMITIES: He has bilateral lymphedema. INVESTIGATIONS: White blood cell count is 9.9, hemoglobin 7.3, platelet count 159,000, neutrophils 88.8%. Sodium 134, potassium 3.7, chloride 95, bicarbonate 29.6, BUN 58 creatinine 2.6, glucose 154, calcium is 8.3, total bilirubin is 1.3, AST and ALT are normal, alkaline phosphatase is 165, total protein is 6.5, albumin of 2.8. INR is 1.5. Urinalysis showing that there is no proteinuria. IMAGING STUDIES: The patient had a chest x-ray done which showed that he has basilar atelectasis. Ultrasound of the kidneys was done in July which showed normal sized kidneys. ASSESSMENT: 1. Fluid overload status with diastolic dysfunction. 2. Chronic kidney disease with recurrent acute kidney injury. 3. Atrial fibrillation. 4. Alcoholism. 5. Anemia. 6. COPD. PLAN: The patient has been retaining fluid and it seems like compliance is a big issue here either with the medication or the fluid intake and especially he keeps on drinking alcohol which needs to be cut down and stopped. At this point, I think he will benefit by giving IV diuretics so I will stop the furosemide and put him on Bumex and also give him metolazone. The patient is also on Diamox, possibly he was given this because he has elevated bicarbonate level but his bicarbonate now is normal, so I will stop that for the time being. Thank you for the consultation and I will follow the patient while he is in the hospital. MD YAAKOV Morales/BRIAN /6:09 PM /7:32 PM
[2017-09-05] MEDS: LACTIC ACID (AMMONIUM LACTATE) 12% LOTION 225 GM BTL TOPICAL SCH (21:00)
[2017-09-05] MEDS: METOLAZONE 2.5 MG TAB PO SCH (21:27)
[2017-09-05] MEDS: METOPROLOL TARTRATE 25 MG TAB PO SCH (21:27)
[2017-09-05] MEDS: ATORVASTATIN 40 MG TAB PO SCH (21:27)
[2017-09-05] MEDS: FERROUS SULFATE 325 MG (65 MG ELEMENTAL IRON) TAB PO SCH (21:33)
[2017-09-05] MEDS ORDERED: FUROSEMIDE 40 MG/4 ML VIAL IV PUSH ONE (22:00)
--- NOTE | 2017-09-05 23:14 | RADRPT ---
EXAM DATE/TIME: 09/05/2017 22:41 [facility] COMPARISON: CHEST SINGLE AP, August 16, 2017, 18:41. INDICATIONS : Dyspnea. MEDICAL HISTORY : Hypercholesterolemia. Myocardial infarction. Chronic obstructive pulmonary. SURGICAL HISTORY : Appendectomy. Cardiac ablation x 3. Right ankle surgery. ENCOUNTER: Subsequent ACUITY: 2 days PAIN SCORE: 0/10 LOCATION: chest FINDINGS: The film is underpenetrated. Basilar infiltrate not excluded. There appears to be mild vascular conge stion. Cardiac silhouette is grossly unchanged. CONCLUSION: Borderline heart size mild vascular congestion Renny Hinojosa MD on September 05, 2017 at 23:10 Board Certified Radiologist. This report was verified electronically.
[2017-09-06] VITALS (19 sets, daily range): BP systolic 93–141; BP diastolic 49–97; PULSE 52–120; RESP 17–30; TEMP 97–99.9; O2SAT 85–100
[2017-09-06] MEDS: METOPROLOL TARTRATE 25 MG TAB PO SCH ×3 (04:58→20:27)
[2017-09-06] MEDS: INSULIN ASPART SUPPLEMENTAL SCALE SQ SCH ×3 (08:00→20:00)
[2017-09-06 08:10] LABS: AUTOMATED NEUTROPHIL # 9.1 TH/MM3 (1.8-7.7); BASOPHIL # 0.1 TH/MM3 (0-0.2); BASOPHIL % 0.5 % (0.0-2.0); EOSINOPHIL % 0.3 % (0.0-4.0); LYMPH % 5.7 % (9.0-44.0); LYMPHOCYTE # 0.6 TH/MM3 (1.0-4.8); MEAN CELL VOLUME 90.5 FL (80.0-100.0); MEAN CORPUSCULAR HGB CONC 30.9 % (32.0-36.0); MEAN PLATELET VOLUME 7.5 FL (7.0-11.0); MONO % 6.4 % (0.0-8.0); MONOCYTE # 0.7 TH/MM3 (0-0.9); NEUT % 87.1 % (16.0-70.0); PLATELET COUNT 155 TH/MM3 (150-450); RED BLOOD COUNT 2.35 MIL/MM3 (4.50-5.90); RED CELL DISTRIBUTION WIDTH 21.5 % (11.6-17.2); WHITE BLOOD COUNT 10.5 TH/MM3 (4.0-11.0)
[2017-09-06 08:12] LABS: ALBUMIN 2.8 GM/DL (3.4-5.0); ALT (GPT) 24 U/L (12-78); AST (GOT) 33 U/L (15-37); BICARBONATE 31.9 MEQ/L (21.0-32.0); BLOOD UREA NITROGEN 52 MG/DL (7-18); CALCIUM 8.3 MG/DL (8.5-10.1); CHLORIDE 99 MEQ/L (98-107); CREATININE 2.16 MG/DL (0.60-1.30); GLOMERULAR FILTRATION RATE 31 ML/MIN (>89); GLUCOSE,RANDOM 148 MG/DL (74-106); SODIUM (NA) 137 MEQ/L (136-145)
[2017-09-06 08:15] LABS: ALKALINE PHOSPHATASE 168 U/L (45-117); TOTAL BILIRUBIN ADULT 0.8 MG/DL (0.2-1.0); TOTAL PROTEIN 6.2 GM/DL (6.4-8.2)
[2017-09-06 08:16] LABS: HEMATOCRIT 21.3 % (39.0-51.0); HEMOGLOBIN 6.6 GM/DL (13.0-17.0)
[2017-09-06] MEDS ORDERED: SODIUM CHLOR 0.9% 250 ML INJ 250 ML IV ONE (08:30)
[2017-09-06] MEDS: FUROSEMIDE 40 MG/4 ML VIAL IV PUSH SCH ×2 (08:37→17:29)
--- NOTE | 2017-09-06 08:53 | RADRPT ---
EXAM DATE/TIME: 09/06/2017 08:27 [facility] COMPARISON: CHEST SINGLE AP, September 05, 2017, 22:41. INDICATIONS : Shortness of breath. MEDICAL HISTORY : Chronic obstructive pulmonary disease. Hypercholesterolemia. Myocardial infarction. SURGICAL HISTORY : Cardiac ablation. ENCOUNTER: Initial ACUITY: 1 day PAIN SCORE: Non-responsive. LOCATION: Bilateral chest FINDINGS: Cardiomegaly with mild interstitial edema and minimal consolidative changes left base all improving i n the interval compared The portion of the bony skeleton visualized is unremarkable. CONCLUSION: Improvement when compared to 09/05/17 Murtaza Mckenzie MD FACR on September 06, 2017 at 8:51 Board Certified Radiologist. This report was verified electronically.
[2017-09-06] MEDS: CALCIUM ACETATE 667 MG CAP PO SCH ×2 (09:00→18:00)
[2017-09-06] MEDS: PANTOPRAZOLE SOD 40 MG DELAYED RELEASE TAB PO SCH ×2 (09:00→20:26)
[2017-09-06] MEDS: LACTIC ACID (AMMONIUM LACTATE) 12% LOTION 225 GM BTL TOPICAL SCH ×2 (09:00→20:27)
[2017-09-06] MEDS: THIAMINE HCL 100 MG TAB PO SCH (09:00)
[2017-09-06] MEDS: RIVAROXABAN 15 MG TAB PO SCH (09:00)
[2017-09-06] MEDS: BUDESONIDE-FORMOTEROL 160/4.5 MCG INHALER INH SCH ×2 (09:00→20:25)
[2017-09-06] MEDS: TAMSULOSIN HCL 0.4 MG CAP PO SCH (09:00)
[2017-09-06] MEDS: FLUTICASONE 100 MCG/VILANTEROL 25 MCG INHALER INH SCH (09:00)
[2017-09-06] MEDS: FERROUS SULFATE 325 MG (65 MG ELEMENTAL IRON) TAB PO SCH ×2 (09:00→20:26)
[2017-09-06] MEDS: FOLIC ACID 1 MG TAB PO SCH (09:00)
[2017-09-06] MEDS: DOCUSATE SODIUM 50 MG/SENNA 8.6 MG TAB PO SCH ×2 (09:00→20:26)
[2017-09-06] MEDS ORDERED: FUROSEMIDE 100 MG/10 ML VIAL IV PUSH ONE (09:00)
[2017-09-06] MEDS: CHOLECALCIFEROL (VIT D3) 1000 UNIT TAB PO SCH (09:00)
[2017-09-06] MEDS: DILTIAZEM-CD 240 MG CAP ER PO SCH (09:00)
[2017-09-06] MEDS: METOLAZONE 2.5 MG TAB PO SCH ×2 (09:00→20:26)
[2017-09-06] MEDS: guaiFENesin E.R. 600 MG TAB PO SCH ×2 (09:00→20:26)
[2017-09-06] MEDS: DIGOXIN 0.125 MG TAB PO SCH (09:00)
[2017-09-06] MEDS: ASCORBIC ACID 500 MG TAB PO SCH (09:00)
[2017-09-06] MEDS: SODIUM CHLORIDE 0.9% FLUSH 10 ML FLUSH IV FLUSH SCH ×2 (09:00→20:37)
[2017-09-06] MEDS ORDERED: CHLORHEXIDINE GLUCONATE 2 % 1 PACK (2 CLOTHS)(extra cloths) TOPICAL PRN (10:00)
--- NOTE | 2017-09-06 10:30 | HHI.PR ---
Subjective Remarks The patient was seen in the ICU. He was on BiPAP. He appeared comfortable. He denied any chest pain. He said he was tired of drinking and coming to the hospital every couple of months. Discussed with nursing at the bedside. Objective Vitals Vital Signs Date Time Temp Pulse Resp B/P (MAP) Pulse Ox O2 Delivery O2 Flow Rate FiO2 09/06/17 09:12 99 55 09/06/17 08:21 98 BiPAP 55 09/06/17 08:09 98 55 09/06/17 08:00 98.2 91 24 115/56 (75) 95 09/06/17 04:00 97.8 52 22 103/49 (67) 100 09/06/17 02:00 Bi-Pap 09/06/17 00:01 85 50 09/06/17 00:00 97.0 97 24 116/56 (76) 94 09/05/17 20:16 92 Nasal Cannula 4.00 09/05/17 20:00 Nasal Cannula 4.00 09/05/17 20:00 97.3 102 26 120/57 (78) 09/05/17 16:14 97.7 103 24 121/67 (85) 93 09/05/17 11:24 97.7 110 20 113/72 (86) 95 I/O 09/05/17 09/05/17 09/05/17 09/06/17 09/06/17 09/06/17 07:00 15:00 23:00 07:00 15:00 23:00 Intake Total 200 ml 100 ml 2 ml 240 ml Output Total 750 ml 1000 ml Balance -550 ml 100 ml 2 ml -760 ml Intake Oral 200 ml 240 ml IV Total 100 ml 2 ml Output Urine Total 750 ml 1000 ml # Bowel Movements 0 Result Diagram: 09/06/17 0715 09/06/17 0715 Imaging Last Impressions Chest X-Ray 09/06/17 0000 Signed Impressions: Service Date/Time: Wednesday, September 06, 2017 08:27 - CONCLUSION: Improvement when compared to 09/05/17 Murtaza Mckenzie MD FACR Objective Remarks GENERAL: Breathing comfortably on BiPAP. SKIN: Chronic venous stasis changes noted bilateral lower legs right greater than left with thickened skin, 4+ pitting edema. HEAD: Normocephalic. Atraumatic. EYES: EOMI. No scleral icterus. No injection or drainage. ENT: No nasal bleeding or discharge. Mucous membranes pink and moist. NECK: Trachea midline. CARDIOVASCULAR: Tachycardic, distant heart sounds. RESPIRATORY: No accessory muscle use. Diminished in bilateral bases but clear to auscultation. No wheezing appreciated. GASTROINTESTINAL: Abdomen soft, non-tender, nondistended. Normoactive bowel sounds x4. MUSCULOSKELETAL: 4+ pitting edema extending up into bilateral thighs. NEUROLOGICAL: Weak bilateral upper and lower extremities. Normal speech. PSYCHIATRIC: Appropriate mood and affect; insight and judgment normal. Medications and IVs Current Medications Medications (Trade) Dose Ordered Sig/Delilah Route Start Time Stop Time Status Last Admin (NS Flush) 2 ml UNSCH PRN IV FLUSH 09/04/17 18:30 (NS Flush) 2 ml BID IV FLUSH 09/04/17 21:00 09/05/17 21:26 (Tylenol) 650 mg Q4H PRN PO 09/04/17 18:30 (Zofran Inj) 4 mg Q6H PRN IVP 09/04/17 18:30 (Percocet 5-325 Mg) 1 tab Q6H PRN PO 09/04/17 18:30 (Percocet 10-325 Mg) 1 tab Q6H PRN PO 09/04/17 18:30 (Narcan Inj) 0.4 mg UNSCH PRN IV PUSH 09/04/17 18:30 (Coco-Colace) 1 tab BID PO 09/04/17 21:00 09/05/17 21:28 (Milk Of Magnesia Liq) 30 ml Q12H PRN PO 09/04/17 18:30 (Senokot) 17.2 mg Q12H PRN PO 09/04/17 18:30 (Dulcolax Supp) 10 mg DAILY PRN RECTAL 09/04/17 18:30 (Lactulose Liq) 30 ml DAILY PRN PO 09/04/17 18:30 (Mucinex Er) 600 mg BID PO 09/04/17 21:00 09/05/17 21:27 (Morphine Inj) 2 mg Q3H PRN IV PUSH 09/04/17 18:45 (Morphine Inj) 4 mg Q3H PRN IV PUSH 09/04/17 18:45 (Romazicon Inj) 0.2 mg Q1M PRN IV PUSH 09/04/17 19:15 (Ativan) 1 mg Q4H PRN PO 09/04/17 19:15 09/04/17 22:23 (Ativan Inj) 1 mg Q4H PRN IV PUSH 09/04/17 19:15 09/05/17 03:31 (Ativan) 2 mg Q2H PRN PO 09/04/17 19:15 (Ativan Inj) 2 mg Q2H PRN IV PUSH 09/04/17 19:15 (Ativan Inj) 2 mg Q1H PRN IV PUSH 09/04/17 19:15 (Ativan Inj) 2 mg Q15M PRN IV PUSH 09/04/17 19:15 (Lipitor) 40 mg HS PO 09/04/17 21:00 09/05/17 21:27 (Symbicort 160-4.5 Mcg Inh) 2 puff Q12HR INH 09/04/17 21:00 09/05/17 21:26 (Phoslo) 667 mg TID PO 09/05/17 09:00 09/05/17 18:01 (Lanoxin) 0.125 mg DAILY PO 09/05/17 09:00 09/05/17 09:34 (Cardizem Cd) 240 mg DAILY PO 09/05/17 09:00 09/05/17 09:34 (Breo Ellipta 100-25 Inh) 1 puff DAILY INH 09/05/17 09:00 09/05/17 09:29 (Protonix) 40 mg Q12HR PO 09/04/17 21:00 09/05/17 21:27 (Xarelto) 15 mg DAILY PO 09/05/17 09:00 09/05/17 09:34 (Flomax) 0.4 mg DAILY PO 09/05/17 09:00 09/05/17 09:34 (Lac-Hydrin 12% Lotion) 1 applic BID TOPICAL 09/05/17 21:00 (Vitamin B1) 100 mg DAILY PO 09/06/17 09:00 (Folate) 1 mg DAILY PO 09/06/17 09:00 (Theragran) 1 tab DAILY PO 09/06/17 09:00 09/05/17 13:01 (Ferrous Sulfate) 325 mg BID PO 09/05/17 21:00 09/05/17 21:33 (Vitamin C) 250 mg DAILY PO 09/06/17 09:00 (Pill Splitter) 1 ea UNSCH PRN OTHER 09/05/17 13:00 (Lopressor) 25 mg Q8HR PO 09/05/17 22:00 09/05/17 21:27 (Vitamin D3) 2,000 units DAILY PO 09/06/17 09:00 (D50w (Vial) Inj) 50 ml UNSCH PRN IV PUSH 09/05/17 15:45 (Glucagon Inj) 1 mg UNSCH PRN OTHER 09/05/17 15:45 (NovoLOG SUPPLEMENTAL SCALE) 1 ACHS SLIDING SCALE SQ 09/05/17 17:00 09/05/17 21:29 (Lasix Inj) 40 mg BID@,18 IV PUSH 09/06/17 09:00 09/06/17 08:37 (Zaroxolyn) 2.5 mg BID PO 09/05/17 21:00 09/05/17 21:27 (Duoneb Neb) 1 ampule Q2HR NEB PRN NEB 09/05/17 22:00 09/05/17 22:21 Sodium Chloride 250 ml @ 15 mls/hr ONCE ONCE IV 09/06/17 08:30 09/07/17 01:09 Miscellaneous Information Patient in critical care unit? Ass... Q361D .XX 09/06/17 10:00 (Chlorhexidine 2% Cloth) 3 pack DAILY@04 TOPICAL 09/07/17 04:00 09/11/17 04:01 (Chlorhexidine 2% Cloth) 3 pack UNSCH PRN TOPICAL 09/06/17 10:00 09/11/17 09:46 A/P Problem List: (1) CHF (congestive heart failure) ICD Code: I50.9 - Heart failure, unspecified Status: Chronic (2) A-fib ICD Code: I48.91 - Unspecified atrial fibrillation Status: Chronic (3) Hyponatremia ICD Code: E87.1 - Hypo-osmolality and hyponatremia Status: Acute (4) Acute on chronic kidney failure ICD Code: N17.9 - Acute kidney failure, unspecified; N18.9 - Chronic kidney disease, unspecified (5) Anemia ICD Code: D64.9 - Anemia, unspecified Status: Acute Assessment and Plan Anasarca Acute on chronic diastolic CHF Acute on chronic hypoxic respiratory failure, on 2L at home Obstructive sleep apnea Obese hypoventilation syndrome Pulmonary hypertension - Patient with a history of CHF, noncompliant. Echo 02/03/17 EF 65%. Obtain echocardiogram. - BNP 319 - On IV Lasix twice a day and metolazone. - The patient was transferred to the ICU for continuous BiPAP. Check an ABG and wean as tolerated. - Strict I&Os, daily weights, Sodium/fluid restricted diet. - Continue with PT - Recommend follow-up with virtualization consultant for sleep study - for placement, patient agrees to go to SNF - accepted at [facility], patient unsafe for discharge at this time. History of hyperphosphatemia secondary to acute renal failure - Phoslo resumed at admission - Obtain phosphorus level Afib - Continue Digoxin, Diltiazem, and Xarelto - patient on Lopressor 100mg po q8h at home. Resume at lower dose of 25mg po q8h given low BP. Continue digoxin and diltiazem. - Obtain digoxin level - Monitor HR Acute on chronic renal failure stage 3, underlying nephrosclerosis Secondary hyperparathyroidism - baseline appears to around 1.5-1.6 prior to July, since Nov creatinine 2-3, ? new baseline - Renal function decreased with BUN 59, creatinine 2.88, GFR 22 - Continue on cholecalciferol 2000 units daily - Nephrology consulted, appreciate assistance. Continue diuresis. - avoid nephrotoxic agents - continue to monitor kidney function Anemia, chronic, worsening - Transfuse 1 unit 09/06/17 and follow CBC. - suspect mixed pattern, reviewed iron studies from last admission. Obtain B12/folate level. Hemoccult stool ordered. Start po iron supplementation. - Reports last colonoscopy and endoscopy 1ry ago and normal, however reports on and off blood in stool. On Xarelto. Consider GI consult when respiratory status is improved. COPD - Duonebs as needed and standing - Continue on home MDI therapy - monitor respiratory status Alcohol abuse, chronic and ongoing issue Alcoholic fatty liver - [facility] protocol - Monitor for DT's - Thiamine/folic acid/MVI daily - Patient advised strongly on complete alcohol cessation. He is agreeable. Hyponatremia, chronic - NA 133, possibly secondary to alcohol abuse - Asymptomatic Chronic bilateral venous stasis dermatitis - MRSA colonization - Resume previous wound care notes from prior admission - Elevate BLEs when able Hyperglycemia - no reported hx of DM - last HgbA1c 5.6 08/18/17 - possibly due to recent steroid use - accucheks and ISS for now BPH - continue on Flomax 0.4mg daily VTE - Continue Xarelto Discharge Planning Keep in ICU Problem Qualifiers (1) Anemia: Qualified Codes: D64.9 - Anemia, unspecified Maldonado Rossi DO Sep 06, 2017 10:30
[2017-09-06] MEDS: cefTRIAXone INJ 1,000 MG in SODIUM CHLORIDE 0.9% INJ 100 ML IV SCH (11:00)
--- NOTE | 2017-09-06 11:59 | HHI.NPPN ---
Subjective General Problems: Anemia, COPD, Edema, Heart Disease Renal Failure: Chronic, Acute, Stage III History of Present Illness 61-year-old male known to me from before with past medical history of ischemic heart disease, history of congestive heart failure, lymphedema of the legs, chronic kidney disease with recurrent acute kidney injury, multiple admissions for congestive heart multiple, admission for fluid overload status who came to the hospital with complaint of increased swelling of the legs and worsening shortness of breath. I was called to see the patient for the management of fluid and renal failure. Additional Remarks Patient is now on BIPAP, in moderate resp. distress, no chest pain. Review of Systems General Constitutional: Fatigue Respiratory Lungs: SOB, Cough, Wheeze Cardiovascular Cardiac: Edema, SHETH Objective Data Data Vital Signs Date Time Temp Pulse Resp B/P (MAP) Pulse Ox O2 Delivery O2 Flow Rate FiO2 09/06/17 09:12 99 55 09/06/17 08:21 98 BiPAP 55 09/06/17 08:09 98 55 09/06/17 08:00 98.2 91 24 115/56 (75) 95 09/06/17 04:00 97.8 52 22 103/49 (67) 100 09/06/17 02:00 Bi-Pap 09/06/17 00:01 85 50 09/06/17 00:00 97.0 97 24 116/56 (76) 94 09/05/17 20:16 92 Nasal Cannula 4.00 09/05/17 20:00 Nasal Cannula 4.00 09/05/17 20:00 97.3 102 26 120/57 (78) 09/05/17 16:14 97.7 103 24 121/67 (85) 93 -: 09/06/17 0715 09/06/17 0715 Physical Exam General Appearance: Anxious, Obese Appearance Remarks In moderate resp. distress. Eyes Eye Exam: Pupils Equal Throat Throat Exam: Oral Mucosa [place] & Moist Neck Neck Exam: Neck Supple Pulmonary Resp Exam: Breath Sounds Equal, Crackles, Rhonchi, Sputum, Decreased Bases, Diminished Breath Sounds Cardiology CV Exam: Regular, Normal Sinus Rhythm Gastrointestinal/Abdomen GI Exam: Soft, Non-Tender, Bowel Sounds Present, Distended (abd. wall edema.) Extremeties Extremities Exam: Moderate Edema, Pitting Edema, Dependent Edema Neurologic Neuro Exam: Alert, Awake Psychiatric Psych Exam: Appropriate Responses Assessment/Plan Assessment Summary: CORIN/Acute Renal Failure, Anemia of CKD, Fluid/Volume Overload, CKD Stage III Problem List: (1) Respiratory failure ICD Codes: J96.90 - Respiratory failure, unspecified, unspecified whether with hypoxia or hypercapnia Status: Acute (2) Acute and chronic respiratory failure ICD Codes: J96.20 - Acute and chronic respiratory failure, unspecified whether with hypoxia or hypercapnia Status: Acute (3) Atrial fibrillation, chronic ICD Codes: I48.2 - Chronic atrial fibrillation Status: Chronic (4) COPD exacerbation ICD Codes: J44.1 - Chronic obstructive pulmonary disease with (acute) exacerbation Status: Acute (5) Edema ICD Codes: R60.9 - Edema, unspecified Status: Chronic (6) Anemia ICD Codes: D64.9 - Anemia, unspecified Status: Acute (7) Acute on chronic kidney failure ICD Codes: N17.9 - Acute kidney failure, unspecified; N18.9 - Chronic kidney disease, unspecified Plan Patient has advance stage 3 chronic kidney and develop CORIN. Creatinine is now slightly better, 2.1. K is normal. Continue Lasix and Metolazone. On BIPAP. Restrict fluid intake. Patient has to be compliant with fluid and salt intake. Follow the urine out put and BMP. Avoid Nephrotoxins. Problem Qualifiers (1) Edema: Qualified Codes: R60.9 - Edema, unspecified (2) Anemia: Qualified Codes: D64.9 - Anemia, unspecified Amy Velazquez MD Sep 06, 2017 11:59
[2017-09-06 12:09] LABS: HEMATOCRIT 21.6 % (39.0-51.0); HEMOGLOBIN 6.9 GM/DL (13.0-17.0)
[2017-09-06 12:13] LABS: INTERNATIONAL NORMALIZED RATIO 1.3 RATIO; PROTHROMBIN TIME - PATIENT 12.7 SEC (9.8-11.6)
--- NOTE | 2017-09-06 13:28 | MB ---
cc: MYRTLE GAMA M.D. DATE OF CONSULTATION: 09/06/2017. REASON FOR CONSULTATION: HISTORY OF PRESENT ILLNESS: The patient is a 61 year old male with multiple comorbidities which include diastolic congestive heart failure, chronic atrial fibrillation on Xarelto, hypertension, hyperlipidemia, COPD, obstructive sleep apnea on 2 liters home oxygen. He was admitted to [facility] on September 04 under the hospitalist service for edema of the lower extremities and increasing dyspnea. On arrival, he had a hemoglobin of 7.0, which dropped to 6.6 this morning. The patient is scheduled to receive one unit of packed red blood cells. In addition, he was found to be in acute renal failure with a BUN 59, creatinine 2.88 and a potassium of 4.0. Chest x-ray on arrival showed subsegmental and basilar atelectasis. He had a repeat chest x-ray this morning which showed overall improvements. A HaliCAT was called for shortness of breath and he was subsequently placed on a BiPAP 12/5 with a 60% FIO2. The patient had an ABG at 01:28 this morning which showed acute on chronic hypercapnic respiratory acidosis with a pH of 7.31, CO2 of 62, pAO2 100, bicarb 31, sats of 94%. He was subsequently transferred to the intensive care unit on BiPAP and a repeat ABG was performed which showed worsening respiratory acidosis with a pH of 7.26, CO2 74, pAO2 123, bicarb 32, sats 95% on 12/5 with 55% FIO2. The patient is awake, alert. He had an echocardiogram back in January which showed normal left ventricular systolic function with an ejection fraction of 65%. PAST MEDICAL HISTORY: The past medical history is significant for: 1. COPD on two liters home oxygen. 2. Congestive heart failure. 3. Hypertension. 4. Hyperlipidemia. 5. Atrial fibrillation. PAST SURGICAL HISTORY: 1. Previous appendectomy. 2. Previous surgery on the right forearm. ALLERGIES: NO KNOWN DRUG ALLERGIES. FAMILY HISTORY: Diabetes mellitus. Coronary artery disease runs in the family. SOCIAL HISTORY: Nonsmoker. Drinks alcohol on a daily basis. CURRENT MEDICATIONS: 1. DuoNeb. 2. Lipitor. 3. Symbicort. 4. Folic acid. 5. Lasix. 6. A multivitamin. 7. Thiamine. 8. Lopressor. 9. Cardizem. 10. Digoxin. REVIEW OF SYSTEMS: The review of systems is as per the history of present illness, and the rest of the review of systems is unremarkable. PHYSICAL EXAMINATION: GENERAL: A 51-year-old male lying in bed in mild distress on BiPAP. VITAL SIGNS: Afebrile, blood pressure of 131/77, pulse 95, saturation 95%. BiPAP settings 12/5 with 55% FIO2. HEAD, EYES, EARS, NOSE, THROAT: Normocephalic and atraumatic. Pupils equal, round and reactive to light and accommodation. Extraocular muscles intact. Conjunctivae are pink. Nonicteric sclerae. Oral mucosa within normal limits. NECK: The neck is supple. No jugular venous distention noted. CARDIOVASCULAR: Regular rate and rhythm. Normal S1-S2. No murmurs, rubs or gallops noted. PULMONARY: Bilateral equal air entry diminished. ABDOMEN: The abdomen is soft, obese, nontender and no distention. Positive bowel sounds. EXTREMITIES: No clubbing. Edema noted and chronic venous stasis. NEUROLOGIC: Awake, alert, no focal sensory deficits. LABORATORY DATA: Sodium 137, potassium 3.9, chloride 99, carbon dioxide 31, BUN 52, creatinine 2.16, glucose of 148, total bilirubin of 0.8, alkaline phosphatase 168, AST 33, ALT 24. WBCs 10.5, hemoglobin 6.6, hematocrit 21, platelet count 155,000. Digoxin level 1.9. IMAGING STUDIES: Chest x-ray from this morning showed overall improvement. IMPRESSION: 1. Acute hypercapnic respiratory acidosis. 2. Acute on chronic kidney disease. 3. Obesity hypoventilation syndrome / obstructive sleep apnea. 4. COPD on two liters home oxygen. 5. Anemia. 6. Ethyl alcohol abuse. 7. Diastolic congestive heart failure. 8. Atrial fibrillation. 9. Chronic venous stasis dermatitis. 10.History of benign prostate hypertrophy. 11.Secondary hyperparathyroidism. 12.Mild hyponatremia overall improving. 13. Hyperglycemia. RECOMMENDATIONS: 1. Monitor neuro status closely and avoid any sedatives. 2. Continue with thiamine, multivitamins and folic acid. 3. Monitor for signs of withdrawal. 4. Continue oxygen to maintain saturations above 92%. 5. Bronchodilators in the form of DuoNeb q. 4 plus q. 2 PRN for shortness of breath. 6. Continue with noninvasive partial pressure ventilation. Will increase inspiratory pressure to 18 and decrease FIO2 to 40% and repeat ABG. If there is any worsening in respiratory status or clinical condition, will proceed with intubation and mechanical ventilation. 7. Monitor heart rate and blood pressure and maintain MAP greater than 65 mmHg. He is currently on Lopressor 25 milligrams q.8, Cardizem 240 daily, Digoxin 0.125 milligrams daily and Lasix 40 milligrams twice a day. Digoxin level 1.9 on September 05. 8. He had an echocardiogram in January which showed an ejection fraction of 65%. A repeat echocardiogram was ordered by the primary team. 9. Monitor renal function, intake and output and avoid nephrotoxins. 10. Continue with diuretics as stated above. Creatinine is 2.16 today down from 2.65. Nephrology is following, Dr. Velazquez. 11. Continue with Protonix 40 milligrams daily for GI prophylaxis. 12. Keep NPO for now. 13. Monitor CBC for signs of infection, which include fever and WBCs. 14. Chest x-ray from today showed overall improvement and the urinalysis showed moderate leukocyte esterase and [address] on Rocephin 1 gram IV daily. Check urine and sputum culture with gram-stain. 15. Sliding scale insulin with Accu-Chek for glycemic control. 16. Monitor CBC. The patient is for transfusion of one unit of packed red blood cells. Check coagulation profile. 17. GI prophylaxis with Protonix. 18. DVT prophylaxis with SCDs. on Xarelto 15 milligrams daily. Case was discussed with the intensive care unit nursing staff and . MD MAGGIE Caraballo/BRIAN /10:49 AM /12:52 PM AINSLEY
[2017-09-06] MEDS: ACETAMINOPHEN 325 MG TAB PO PRN (17:24)
[2017-09-06 20:24] LABS: HEMATOCRIT 21.1 % (39.0-51.0)
[2017-09-06] MEDS: ATORVASTATIN 40 MG TAB PO SCH (20:26)
[2017-09-06 20:31] LABS: HEMOGLOBIN 6.7 GM/DL (13.0-17.0)
[2017-09-07] VITALS (24 sets, daily range): BP systolic 99–113; BP diastolic 52–71; PULSE 82–149; RESP 15–29; TEMP 98–99.2; O2SAT 84–100
[2017-09-07] MEDS: INSULIN ASPART SUPPLEMENTAL SCALE SQ SCH ×4 (02:00→20:00)
[2017-09-07 02:36] LABS: HEMATOCRIT 24.7 % (39.0-51.0); HEMOGLOBIN 7.8 GM/DL (13.0-17.0)
[2017-09-07] MEDS: CHLORHEXIDINE GLUCONATE 2 % 1 PACK (2 CLOTHS)(taper/protocol) TOPICAL SCH (04:00)
[2017-09-07] MEDS: METOPROLOL TARTRATE 25 MG TAB PO SCH ×3 (06:00→21:16)
[2017-09-07 06:49] LABS: AUTOMATED NEUTROPHIL # 5.5 TH/MM3 (1.8-7.7); BASOPHIL % 0.6 % (0.0-2.0); EOSINOPHIL # 0.1 TH/MM3 (0-0.4); EOSINOPHIL % 1.5 % (0.0-4.0); HEMATOCRIT 23.9 % (39.0-51.0); HEMOGLOBIN 7.5 GM/DL (13.0-17.0); LYMPHOCYTE # 0.5 TH/MM3 (1.0-4.8); MEAN CELL VOLUME 90.1 FL (80.0-100.0); MEAN CORPUSCULAR HEMOGLOBIN 28.3 PG (27.0-34.0); MEAN CORPUSCULAR HGB CONC 31.4 % (32.0-36.0); MEAN PLATELET VOLUME 7.8 FL (7.0-11.0); MONO % 4.6 % (0.0-8.0); MONOCYTE # 0.3 TH/MM3 (0-0.9); NEUT % 85.3 % (16.0-70.0); PLATELET COUNT 143 TH/MM3 (150-450); RED BLOOD COUNT 2.66 MIL/MM3 (4.50-5.90); RED CELL DISTRIBUTION WIDTH 20.6 % (11.6-17.2); WHITE BLOOD COUNT 6.5 TH/MM3 (4.0-11.0)
[2017-09-07 07:04] LABS: BICARBONATE 35.9 MEQ/L (21.0-32.0); CALCIUM 8.9 MG/DL (8.5-10.1); CREATININE 1.76 MG/DL (0.60-1.30)
[2017-09-07] MEDS: CALCIUM ACETATE 667 MG CAP PO SCH ×3 (08:21→17:51)
[2017-09-07] MEDS: FERROUS SULFATE 325 MG (65 MG ELEMENTAL IRON) TAB PO SCH ×2 (08:21→21:07)
[2017-09-07] MEDS: ASCORBIC ACID 500 MG TAB PO SCH (08:21)
[2017-09-07] MEDS: MULTIVITAMIN TAB PO SCH (08:21)
[2017-09-07] MEDS: FOLIC ACID 1 MG TAB PO SCH (08:21)
[2017-09-07] MEDS: CHOLECALCIFEROL (VIT D3) 1000 UNIT TAB PO SCH (08:21)
[2017-09-07] MEDS: guaiFENesin E.R. 600 MG TAB PO SCH ×2 (08:21→21:07)
[2017-09-07] MEDS: RIVAROXABAN 15 MG TAB PO SCH (08:21)
[2017-09-07] MEDS: DIGOXIN 0.125 MG TAB PO SCH (08:21)
[2017-09-07] MEDS: PANTOPRAZOLE SOD 40 MG DELAYED RELEASE TAB PO SCH ×2 (08:21→21:07)
[2017-09-07] MEDS: DILTIAZEM-CD 240 MG CAP ER PO SCH (08:21)
[2017-09-07] MEDS: DOCUSATE SODIUM 50 MG/SENNA 8.6 MG TAB PO SCH ×2 (08:22→21:07)
[2017-09-07] MEDS: BUDESONIDE-FORMOTEROL 160/4.5 MCG INHALER INH SCH ×2 (08:22→21:07)
[2017-09-07] MEDS: FLUTICASONE 100 MCG/VILANTEROL 25 MCG INHALER INH SCH (08:22)
[2017-09-07] MEDS: THIAMINE HCL 100 MG TAB PO SCH (08:22)
[2017-09-07] MEDS: METOLAZONE 2.5 MG TAB PO SCH ×2 (08:22→21:00)
[2017-09-07] MEDS: TAMSULOSIN HCL 0.4 MG CAP PO SCH (08:22)
[2017-09-07] MEDS: FUROSEMIDE 40 MG/4 ML VIAL IV PUSH SCH ×2 (08:22→17:51)
[2017-09-07] MEDS: SODIUM CHLORIDE 0.9% FLUSH 10 ML FLUSH IV FLUSH SCH ×2 (08:22→21:07)
[2017-09-07] MEDS: LACTIC ACID (AMMONIUM LACTATE) 12% LOTION 225 GM BTL TOPICAL SCH ×2 (08:23→22:45)
--- NOTE | 2017-09-07 11:20 | HHI.NPPN ---
Subjective General Problems: Anemia, COPD, Edema, Heart Disease Renal Failure: Chronic, Acute, Stage III History of Present Illness 61-year-old male known to me from before with past medical history of ischemic heart disease, history of congestive heart failure, lymphedema of the legs, chronic kidney disease with recurrent acute kidney injury, multiple admissions for congestive heart multiple, admission for fluid overload status who came to the hospital with complaint of increased swelling of the legs and worsening shortness of breath. I was called to see the patient for the management of fluid and renal failure. Additional Remarks Patient is alert, and feeling better, now on Nasal cannula. Review of Systems General Constitutional: Fatigue Respiratory Lungs: SOB, Cough, Wheeze Cardiovascular Cardiac: Edema, SHETH Objective Data Data Vital Signs Date Time Temp Pulse Resp B/P (MAP) Pulse Ox O2 Delivery O2 Flow Rate FiO2 09/07/17 10:00 126 09/07/17 09:05 98 Nasal Cannula 4.00 09/07/17 09:00 125 09/07/17 08:15 100 Nasal Cannula 4.00 09/07/17 08:00 98.0 127 21 105/55 (72) 100 09/07/17 08:00 127 09/07/17 07:00 126 09/07/17 07:00 99 Bi-Pap 40 09/07/17 06:00 123 09/07/17 04:00 125 09/07/17 04:00 125 28 99/54 (69) 97 09/07/17 03:15 100 40 09/07/17 02:00 124 09/07/17 02:00 82 09/07/17 01:00 124 27 105/71 84 09/07/17 00:00 98.6 82 15 99/52 (68) 99 09/07/17 00:00 82 09/06/17 23:00 98 25 97/52 99 09/06/17 22:39 96 40 09/06/17 22:20 98 120/61 96 09/06/17 22:00 107 09/06/17 20:47 100 40 09/06/17 20:47 100 BiPAP 40 09/06/17 20:00 98.4 120 17 93/55 (68) 96 09/06/17 20:00 120 09/06/17 18:26 99.0 106 25 111/54 (73) 97 09/06/17 18:00 106 09/06/17 15:07 99.9 102 25 134/64 98 09/06/17 14:35 99.2 110 28 133/97 89 09/06/17 14:00 98.7 97 20 130/63 95 09/06/17 14:00 98.7 97 25 130/60 (83) 86 -: 09/07/17 0455 09/07/17 0455 Microbiology 09/06/17 Urine Culture, Received Pending Physical Exam General Appearance: Anxious, Obese Appearance Remarks In moderate resp. distress. Eyes Eye Exam: Pupils Equal Throat Throat Exam: Oral Mucosa [place] & Moist Neck Neck Exam: Neck Supple Pulmonary Resp Exam: Breath Sounds Equal, Crackles, Rhonchi, Sputum, Decreased Bases, Diminished Breath Sounds Cardiology CV Exam: Regular, Normal Sinus Rhythm Gastrointestinal/Abdomen GI Exam: Soft, Non-Tender, Bowel Sounds Present, Distended (abd. wall edema.) Extremeties Extremities Exam: Moderate Edema, Pitting Edema, Dependent Edema Neurologic Neuro Exam: Alert, Awake Psychiatric Psych Exam: Appropriate Responses Assessment/Plan Assessment Summary: CORIN/Acute Renal Failure, Anemia of CKD, Fluid/Volume Overload, CKD Stage III Problem List: (1) Respiratory failure ICD Codes: J96.90 - Respiratory failure, unspecified, unspecified whether with hypoxia or hypercapnia Status: Acute (2) Acute and chronic respiratory failure ICD Codes: J96.20 - Acute and chronic respiratory failure, unspecified whether with hypoxia or hypercapnia Status: Acute (3) Atrial fibrillation, chronic ICD Codes: I48.2 - Chronic atrial fibrillation Status: Chronic (4) COPD exacerbation ICD Codes: J44.1 - Chronic obstructive pulmonary disease with (acute) exacerbation Status: Acute (5) Edema ICD Codes: R60.9 - Edema, unspecified Status: Chronic (6) Anemia ICD Codes: D64.9 - Anemia, unspecified Status: Acute (7) Acute on chronic kidney failure ICD Codes: N17.9 - Acute kidney failure, unspecified; N18.9 - Chronic kidney disease, unspecified Plan Patient has advance stage 3 chronic kidney and develop CORIN. Creatinine continue to improve and now 1.7. K is normal. Continue Lasix and Metolazone. On BIPAP. Restrict fluid intake. Patient has to be compliant with fluid and salt intake. Also told to stop alcoholism. I will ask Dr. Matute to follow from tomorrow. Problem Qualifiers (1) Edema: Qualified Codes: R60.9 - Edema, unspecified (2) Anemia: Qualified Codes: D64.9 - Anemia, unspecified Amy Velazquez MD Sep 07, 2017 11:20
[2017-09-07] MEDS: cefTRIAXone INJ 1,000 MG in SODIUM CHLORIDE 0.9% INJ 100 ML IV SCH (13:24)
--- NOTE | 2017-09-07 14:10 | HHI.CCPN ---
Subjective Remarks/Hospital Course 09/06: The patient is a 61 year old male with multiple comorbidities which include diastolic congestive heart failure, chronic atrial fibrillation on Xarelto, hypertension, hyperlipidemia, COPD, obstructive sleep apnea on 2 liters home oxygen. He was admitted to [facility] on September 04 under the hospitalist service for edema of the lower extremities and increasing dyspnea. On arrival, he had a hemoglobin of 7.0, which dropped to 6.6 this morning. The patient is scheduled to receive one unit of packed red blood cells. In addition, he was found to be in acute renal failure with a BUN 59, creatinine 2.88 and a potassium of 4.0. Chest x-ray on arrival showed subsegmental and basilar atelectasis. He had a repeat chest x-ray this morning which showed overall improvements. A HaliCAT was called for shortness of breath and he was subsequently placed on a BiPAP 08/18 with a 60% FIO2. The patient had an ABG at 01:28 this morning which showed acute on chronic hypercapnic respiratory acidosis with a pH of 7.31, CO2 of 62, pAO2 100, bicarb 31, sats of 94%. He was subsequently transferred to the intensive care unit on BiPAP and a repeat ABG was performed which showed worsening respiratory acidosis with a pH of 7.26, CO2 74, pAO2 123, bicarb 32, sats 95% on 08/18 with 55% FIO2. The patient is awake, alert. He had an echocardiogram back in January which showed normal left ventricular systolic function with an ejection fraction of 65%. 09/07: Awake and alert, on BiPAP with full facemask this morning. Wanted to eat at the time of my evaluation this morning. Objective Vital Signs Date Time Temp Pulse Resp B/P (MAP) Pulse Ox O2 Delivery O2 Flow Rate FiO2 09/07/17 10:00 126 09/07/17 09:05 98 Nasal Cannula 4.00 09/07/17 08:00 98.0 21 105/55 (72) 09/07/17 07:00 40 Intake and Output 09/07/17 09/07/17 09/08/17 08:00 16:00 00:00 Intake Total 1000 ml Output Total 2525 ml Balance -1525 ml Result Diagram: 09/07/17 0455 09/07/17 0455 Other Results Laboratory Tests Test 09/06/17 15:00 09/06/17 21:27 09/07/17 01:13 Blood Gas Puncture Site LT RADIAL RT RADIAL RT RADIAL Blood Gas Patient Temperature 98.6 98.6 98.6 Blood Gas HCO3 33 mmol/L (22-26) 34 mmol/L (22-26) 34 mmol/L (22-26) Blood Gas Base Excess 7.3 mmol/L (-2-2) 8.3 mmol/L (-2-2) 8.8 mmol/L (-2-2) Blood Gas Oxygen Saturation 87 % (90-100) 95 % (90-100) 95 % (90-100) Arterial Blood pH 7.33 (7.380-7.420) 7.33 (7.380-7.420) 7.37 (7.380-7.420) Arterial Blood Partial Pressure CO2 65 mmHg (38-42) 66 mmHg (38-42) 60 mmHg (38-42) Arterial Blood Partial Pressure O2 65 mmHg (61-120) 111 mmHg (61-120) 124 mmHg (61-120) Arterial Blood Oxygen Content 8.3 Vol % (12.0-20.0) 9.4 Vol % (12.0-20.0) 11.3 Vol % (12.0-20.0) Arterial Blood Carboxyhemoglobin 2.4 % (0-4) 2.7 % (0-4) 2.4 % (0-4) Arterial Blood Methemoglobin 1.5 % (0-2) 1.1 % (0-2) 1.5 % (0-2) Blood Gas Hemoglobin 6.7 G/DL (12.0-16.0) 6.9 G/DL (12.0-16.0) 8.3 G/DL (12.0-16.0) Oxygen Delivery Device BiPAP BIPAP BIPAP Blood Gas Ventilator Setting [id number]/[id number] 18/5 Blood Gas Inspired Oxygen 40 % 40 % 40 % Imaging Last Impressions Chest X-Ray 09/06/17 0000 Signed Impressions: Service Date/Time: Wednesday, September 06, 2017 08:27 - CONCLUSION: Improvement when compared to 09/05/17 Murtaza Mckenzie MD FACR Objective Remarks HEAD, EYES, EARS, NOSE, THROAT: Normocephalic and atraumatic. Pupils equal, round and reactive to light and accommodation. Extraocular muscles intact. Conjunctivae are pink. Nonicteric sclerae. Oral mucosa within normal limits. NECK: The neck is supple. No jugular venous distention noted. CARDIOVASCULAR: Regular rate and rhythm. Normal S1-S2. No murmurs, rubs or gallops noted. PULMONARY: Bilateral equal air entry diminished. ABDOMEN: The abdomen is soft, obese, nontender and no distention. Positive bowel sounds. EXTREMITIES: No clubbing. Edema noted and chronic venous stasis. NEUROLOGIC: Awake, alert, no focal sensory deficits. A/P Assessment and Plan IMPRESSION: 1. Acute hypercapnic respiratory failure. 2. Acute on chronic kidney disease. 3. Obesity hypoventilation syndrome / obstructive sleep apnea. 4. COPD on two liters home oxygen. 5. Anemia. 6. Ethyl alcohol abuse. 7. Diastolic congestive heart failure. 8. Atrial fibrillation. 9. Chronic venous stasis dermatitis. 10.History of benign prostate hypertrophy. 11.Secondary hyperparathyroidism. 12.Mild hyponatremia overall improving. 13. Hyperglycemia. RECOMMENDATIONS: 1. Monitor neuro status closely and avoid any sedatives. 2. Continue with thiamine, multivitamins and folic acid. 3. Monitor for signs of withdrawal. 4. Continue oxygen to maintain saturations above 92%. 5. Bronchodilators in the form of DuoNeb q. 4 plus q. 2 PRN for shortness of breath. 6. Continue BIPAP as needed. Attempt nasal cannula intermittently. 7. Monitor heart rate and blood pressure and maintain MAP greater than 65 mmHg. He is currently on Lopressor 25 milligrams q.8, Cardizem 240 daily, Digoxin 0.125 milligrams daily and Lasix 40 milligrams twice a day. Digoxin level 1.9 on September 05. 8. He had an echocardiogram in January which showed an ejection fraction of 65%. A repeat echocardiogram was ordered by the primary team. 9. Monitor renal function, intake and output and avoid nephrotoxins. 10. Continue with diuretics as stated above. Creatinine is 2.16 on 09/06 down from 2.65. Nephrology is following, Dr. Velazquez. 11. Continue with Protonix 40 milligrams daily for GI prophylaxis. 12. Attempt PO diet if able to stay off BIPAP. 13. Monitor CBC for signs of infection, which include fever and WBCs. 14. Chest x-ray from today showed overall improvement and the urinalysis showed moderate leukocyte esterase and 5 WBCs. Continue Rocephin 1 gram IV daily. F/u urine and sputum culture with gram-stain. 15. Sliding scale insulin with Accu-Chek for glycemic control. 16. Monitor CBC. The patient is for transfusion of one unit of packed red blood cells. Check coagulation profile. 17. GI prophylaxis with Protonix. 18. DVT prophylaxis with SCDs. on Xarelto 15 milligrams daily. Albert Marshall MD Sep 07, 2017 14:10
[2017-09-07] MEDS ORDERED: DIGOXIN 0.5 MG/2 ML VIAL IV PUSH ONE (15:45)
[2017-09-07] MEDS ORDERED: DILTIAZEM HCL 25 MG/5 ML VIAL IV ONE (15:45)
[2017-09-07] MEDS ORDERED: POTASSIUM CHLORIDE 25 MEQ EFFERVESCENT TAB PO ONE (16:00)
[2017-09-07] MEDS: ATORVASTATIN 40 MG TAB PO SCH (21:07)
--- NOTE | 2017-09-07 22:03 | ECHRPT ---
Indication: Heart Failure CONCLUSIONS Mildly dilated left ventricle. Mild concentric left ventricular hypertrophy. The left ventricular systolic function is normal with an estimated ejection fraction of 55%. The right ventricle is mildly dilated. Mitral annular calcification is present. Mild thickening of the mitral valve leaflets. Aortic valve sclerosis is present. BP: / HR: Rhythm: MEASUREMENTS (Male / Female) Normal Values Technical Quality: 2D ECHO LV Diastolic Diameter PLAX 5.2 cm 4.2 - 5.9 / 3.9 - 5.3 cm LV Systolic Diameter PLAX 4.2 cm IVS Diastolic Thickness 1.3 cm 0.6 - 1.0 / 0.6 - 0.9 cm LVPW Diastolic Thickness 0.8 cm 0.6 - 1.0 / 0.6 - 0.9 cm LV Relative Wall Thickness 0.4 RV Internal Dim ED PLAX 3.2 cm DOPPLER AV Peak Velocity 256.0 cm/s AV Peak Gradient 26.2 mmHg AV Mean Gradient 10.0 mmHg AV Velocity Time Integral 34.6 cm LVOT Peak Velocity 137.0 cm/s LVOT Peak Gradient 7.5 mmHg LVOT Velocity Time Integral 19.8 cm MV Peak Velocity 131.0 cm/s MV Peak Gradient 6.9 mmHg MV Mean Velocity 74.7 cm/s MV Mean Gradient 3.0 mmHg Mitral E Point Velocity 112.0 cm/s Mitral A Point Velocity 52.6 cm/s Mitral E to A Ratio 2.1 TR Peak Velocity 346.0 cm/s TR Peak Gradient 47.9 mmHg Right Atrial Pressure 10.0 mmHg Pulmonary Artery Systolic Pressu 57.9 mmHg Right Ventricular Systolic Press 57.9 mmHg FINDINGS LEFT VENTRICLE Mildly dilated left ventricle. Mild concentric left ventricular hypertrophy. The left ventricular systolic function is normal with an estimated ejection fraction of 55%. RIGHT VENTRICLE The right ventricle is mildly dilated. LEFT ATRIUM The left atrial size is normal. RIGHT ATRIUM The right atrial size is normal. ATRIAL SEPTUM Normal atrial septal thickness without atrial level shunting by limited color doppler interrogation. AORTA The aortic root and proximal ascending aorta are normal in size on limited imaging. MITRAL VALVE Mitral annular calcification is present. Mild thickening of the mitral valve leaflets. AORTIC VALVE Aortic valve sclerosis is present. TRICUSPID VALVE Structurally normal tricuspid valve. No tricuspid valve stenosis or regurgitation. PULMONARY VALVE No pulmonary valve regurgitation or stenosis. VESSELS The inferior vena cava is normal in size. PERICARDIUM No pericardial effusion. Mike Ren MD, FACC (Electronically Signed) Final Date:07 September 2017 22:02
[2017-09-08] VITALS (23 sets, daily range): BP systolic 113–142; BP diastolic 55–63; PULSE 92–110; RESP 18–29; TEMP 98.4–101; O2SAT 84–99
[2017-09-08] MEDS ORDERED: PROMETHAZINE INJ 25 MG/ML VIAL IM ONE (01:45)
[2017-09-08] MEDS ORDERED: HALOPERIDOL LACTATE 5 MG/ML AMP IV PUSH PRN ×3 (01:45→06:45)
[2017-09-08] MEDS: INSULIN ASPART SUPPLEMENTAL SCALE SQ SCH ×4 (02:00→20:00)
[2017-09-08] MEDS: CHLORHEXIDINE GLUCONATE 2 % 1 PACK (2 CLOTHS)(taper/protocol) TOPICAL SCH (02:44)
--- NOTE | 2017-09-08 05:05 | RADRPT ---
EXAM DATE/TIME: 09/08/2017 03:17 [facility] COMPARISON: CHEST SINGLE AP, September 06, 2017, 8:27. INDICATIONS : Short of breath. MEDICAL HISTORY : Chronic obstructive pulmonary disease. Hypercholesterolemia. Myocardial infarction. SURGICAL HISTORY : Cardiac ablation. ENCOUNTER: Subsequent ACUITY: 3 days PAIN SCORE: 0/10 LOCATION: Bilateral chest FINDINGS: There is moderate cardiomegaly and perivascular pulmonary edema. Focal consolidation is not seen. CONCLUSION: Moderate CHF slightly worse. Deanna Alvarez MD on September 08, 2017 at 5:03 Board Certified Radiologist. This report was verified electronically.
[2017-09-08] MEDS: METOPROLOL TARTRATE 25 MG TAB PO SCH ×4 (05:26→22:00)
[2017-09-08] MEDS: LORazepam 1 MG TAB PO PRN ×3 (05:26→22:52)
[2017-09-08 06:13] LABS: AUTOMATED NEUTROPHIL # 6.5 TH/MM3 (1.8-7.7); BASOPHIL # 0.1 TH/MM3 (0-0.2); BASOPHIL % 0.7 % (0.0-2.0); EOSINOPHIL # 0.1 TH/MM3 (0-0.4); EOSINOPHIL % 1.3 % (0.0-4.0); HEMATOCRIT 23.2 % (39.0-51.0); HEMOGLOBIN 7.6 GM/DL (13.0-17.0); LYMPH % 7.8 % (9.0-44.0); LYMPHOCYTE # 0.6 TH/MM3 (1.0-4.8); MEAN CELL VOLUME 89.6 FL (80.0-100.0); MEAN CORPUSCULAR HEMOGLOBIN 29.3 PG (27.0-34.0); MEAN CORPUSCULAR HGB CONC 32.8 % (32.0-36.0); MEAN PLATELET VOLUME 7.9 FL (7.0-11.0); MONO % 4.8 % (0.0-8.0); MONOCYTE # 0.4 TH/MM3 (0-0.9); NEUT % 85.4 % (16.0-70.0); PLATELET COUNT 190 TH/MM3 (150-450); RED BLOOD COUNT 2.59 MIL/MM3 (4.50-5.90); RED CELL DISTRIBUTION WIDTH 21.5 % (11.6-17.2); WHITE BLOOD COUNT 7.6 TH/MM3 (4.0-11.0)
[2017-09-08 06:48] LABS: ALBUMIN 2.6 GM/DL (3.4-5.0); AST (GOT) 20 U/L (15-37); BICARBONATE 37.1 MEQ/L (21.0-32.0); BLOOD UREA NITROGEN 41 MG/DL (7-18); CALCIUM 8.6 MG/DL (8.5-10.1); CHLORIDE 94 MEQ/L (98-107); CREATININE 1.65 MG/DL (0.60-1.30); GLOMERULAR FILTRATION RATE 42 ML/MIN (>89); GLUCOSE,RANDOM 137 MG/DL (74-106); SODIUM (NA) 137 MEQ/L (136-145)
[2017-09-08 06:49] LABS: ALT (GPT) 19 U/L (12-78)
[2017-09-08 06:51] LABS: ALKALINE PHOSPHATASE 146 U/L (45-117); TOTAL BILIRUBIN ADULT 0.7 MG/DL (0.2-1.0); TOTAL PROTEIN 6.2 GM/DL (6.4-8.2)
[2017-09-08] MEDS: BUDESONIDE-FORMOTEROL 160/4.5 MCG INHALER INH SCH ×2 (09:00→20:49)
[2017-09-08] MEDS: LACTIC ACID (AMMONIUM LACTATE) 12% LOTION 225 GM BTL TOPICAL SCH ×2 (09:00→20:50)
[2017-09-08] MEDS: FLUTICASONE 100 MCG/VILANTEROL 25 MCG INHALER INH SCH (09:00)
[2017-09-08] MEDS: TAMSULOSIN HCL 0.4 MG CAP PO SCH (09:23)
[2017-09-08] MEDS: PANTOPRAZOLE SOD 40 MG DELAYED RELEASE TAB PO SCH ×2 (09:23→20:50)
[2017-09-08] MEDS: CALCIUM ACETATE 667 MG CAP PO SCH ×3 (09:23→17:02)
[2017-09-08] MEDS: THIAMINE HCL 100 MG TAB PO SCH (09:23)
[2017-09-08] MEDS: RIVAROXABAN 15 MG TAB PO SCH (09:24)
[2017-09-08] MEDS: DILTIAZEM-CD 240 MG CAP ER PO SCH (09:24)
[2017-09-08] MEDS: FERROUS SULFATE 325 MG (65 MG ELEMENTAL IRON) TAB PO SCH ×2 (09:25→20:50)
[2017-09-08] MEDS: MULTIVITAMIN TAB PO SCH (09:25)
[2017-09-08] MEDS: guaiFENesin E.R. 600 MG TAB PO SCH ×2 (09:25→20:50)
[2017-09-08] MEDS: METOLAZONE 2.5 MG TAB PO SCH ×2 (09:25→20:50)
[2017-09-08] MEDS: FOLIC ACID 1 MG TAB PO SCH (09:26)
[2017-09-08] MEDS: CHOLECALCIFEROL (VIT D3) 1000 UNIT TAB PO SCH (09:26)
[2017-09-08] MEDS: DOCUSATE SODIUM 50 MG/SENNA 8.6 MG TAB PO SCH ×2 (09:26→20:50)
[2017-09-08] MEDS: DIGOXIN 0.125 MG TAB PO SCH (09:26)
[2017-09-08] MEDS: ASCORBIC ACID 500 MG TAB PO SCH (09:27)
[2017-09-08] MEDS: FUROSEMIDE 40 MG/4 ML VIAL IV PUSH SCH ×2 (09:31→17:02)
[2017-09-08] MEDS: SODIUM CHLORIDE 0.9% FLUSH 10 ML FLUSH IV FLUSH SCH ×2 (09:31→20:50)
--- NOTE | 2017-09-08 11:01 | HHI.NPPN ---
Subjective General Problems: Anemia, COPD, Edema, Heart Disease Renal Failure: Chronic, Acute, Stage III History of Present Illness 61-year-old male known to me from before with past medical history of ischemic heart disease, history of congestive heart failure, lymphedema of the legs, chronic kidney disease with recurrent acute kidney injury, multiple admissions for congestive heart multiple, admission for fluid overload status who came to the hospital with complaint of increased swelling of the legs and worsening shortness of breath. I was called to see the patient for the management of fluid and renal failure. Additional Remarks patient was seen and examined. Being diuresed. Renal function has improved. Review of Systems General Constitutional: Fatigue Respiratory Lungs: SOB, Cough, Wheeze Cardiovascular Cardiac: Edema, SHETH Objective Data Data Vital Signs Date Time Temp Pulse Resp B/P (MAP) Pulse Ox O2 Delivery O2 Flow Rate FiO2 09/08/17 06:00 101 09/08/17 04:01 99.1 102 132/57 (82) 99 09/08/17 04:00 102 09/08/17 02:00 101 09/08/17 01:26 98 40 09/08/17 00:01 99.3 105 113/55 (74) 84 09/08/17 00:00 104 09/07/17 23:40 96 40 09/07/17 22:00 105 09/07/17 20:01 99.2 103 26 111/56 (74) 96 09/07/17 20:00 103 09/07/17 19:04 93 Nasal Cannula 4.00 09/07/17 19:00 99 Nasal Cannula 4.00 09/07/17 18:00 106 09/07/17 17:00 99 09/07/17 16:00 92 09/07/17 16:00 98.3 92 29 113/55 (74) 93 09/07/17 15:00 149 09/07/17 14:00 130 09/07/17 13:00 129 09/07/17 12:00 128 09/07/17 12:00 98.0 128 25 109/55 (73) 99 09/07/17 11:00 128 -: 09/08/17 0440 09/08/17 0440 Physical Exam General Appearance: Anxious, Obese Eyes Eye Exam: Pupils Equal Throat Throat Exam: Oral Mucosa [place] & Moist Neck Neck Exam: Neck Supple Pulmonary Resp Exam: Breath Sounds Equal, Crackles, Rhonchi, Sputum, Decreased Bases, Diminished Breath Sounds Cardiology CV Exam: Regular, Normal Sinus Rhythm Gastrointestinal/Abdomen GI Exam: Soft, Non-Tender, Bowel Sounds Present, Distended (abd. wall edema.) Extremeties Extremities Exam: Moderate Edema, Pitting Edema, Dependent Edema Neurologic Neuro Exam: Alert, Awake Psychiatric Psych Exam: Appropriate Responses Assessment/Plan Assessment Summary: CORIN/Acute Renal Failure, Anemia of CKD, Fluid/Volume Overload, CKD Stage III Problem List: (1) Acute on chronic kidney failure ICD Codes: N17.9 - Acute kidney failure, unspecified; N18.9 - Chronic kidney disease, unspecified Plan: renal function has improved. Good diuresis. Avoid nephrotoxic agents. Replace potassium. (2) Respiratory failure ICD Codes: J96.90 - Respiratory failure, unspecified, unspecified whether with hypoxia or hypercapnia Status: Acute Plan: improved. (3) Atrial fibrillation, chronic ICD Codes: I48.2 - Chronic atrial fibrillation Status: Chronic Plan: rate control measures. (4) COPD exacerbation ICD Codes: J44.1 - Chronic obstructive pulmonary disease with (acute) exacerbation Status: Acute (5) Edema ICD Codes: R60.9 - Edema, unspecified Status: Chronic (6) Anemia ICD Codes: D64.9 - Anemia, unspecified Status: Acute Plan: Hemoglobin is low but stable. Problem Qualifiers (1) Edema: Qualified Codes: R60.9 - Edema, unspecified (2) Anemia: Qualified Codes: D64.9 - Anemia, unspecified Jian Matute MD Sep 08, 2017 11:01
[2017-09-08] MEDS ORDERED: POTASSIUM CHLORIDE 10 MEQ CONTROLLED RELEASE TAB PO ONE (11:15)
[2017-09-08] MEDS: cefTRIAXone INJ 1,000 MG in SODIUM CHLORIDE 0.9% INJ 100 ML IV SCH (13:00)
--- NOTE | 2017-09-08 13:59 | HHI.CCPN ---
Subjective Remarks/Hospital Course 09/06: The patient is a 61 year old male with multiple comorbidities which include diastolic congestive heart failure, chronic atrial fibrillation on Xarelto, hypertension, hyperlipidemia, COPD, obstructive sleep apnea on 2 liters home oxygen. He was admitted to [facility] on September 04 under the hospitalist service for edema of the lower extremities and increasing dyspnea. On arrival, he had a hemoglobin of 7.0, which dropped to 6.6 this morning. The patient is scheduled to receive one unit of packed red blood cells. In addition, he was found to be in acute renal failure with a BUN 59, creatinine 2.88 and a potassium of 4.0. Chest x-ray on arrival showed subsegmental and basilar atelectasis. He had a repeat chest x-ray this morning which showed overall improvements. A HaliCAT was called for shortness of breath and he was subsequently placed on a BiPAP 08/18 with a 60% FIO2. The patient had an ABG at 01:28 this morning which showed acute on chronic hypercapnic respiratory acidosis with a pH of 7.31, CO2 of 62, pAO2 100, bicarb 31, sats of 94%. He was subsequently transferred to the intensive care unit on BiPAP and a repeat ABG was performed which showed worsening respiratory acidosis with a pH of 7.26, CO2 74, pAO2 123, bicarb 32, sats 95% on 08/18 with 55% FIO2. The patient is awake, alert. He had an echocardiogram back in January which showed normal left ventricular systolic function with an ejection fraction of 65%. 09/07: Awake and alert, on BiPAP with full facemask this morning. Wanted to eat at the time of my evaluation this morning. 09/08: Awake and alert, on nasal cannula. Not in any acute distress. Objective Vital Signs Date Time Temp Pulse Resp B/P (MAP) Pulse Ox O2 Delivery O2 Flow Rate FiO2 09/08/17 12:54 95 Nasal Cannula 4.00 09/08/17 11:00 104 09/08/17 08:00 99.0 18 142/63 (89) 09/08/17 01:26 40 Intake and Output 09/08/17 09/08/17 09/09/17 08:00 16:00 00:00 Intake Total 480 ml Output Total 1550 ml Balance -1070 ml Result Diagram: 09/08/17 0440 09/08/17 0440 Other Results Microbiology Date/Time Source Procedure Growth Status 09/06/17 16:45 Urine Random Urine Urine Culture - Final NO GROWTH IN 48 HOURS. Complete Laboratory Tests Test 09/08/17 05:22 Blood Gas Puncture Site RT RADIAL Blood Gas Patient Temperature 98.6 Blood Gas HCO3 38 mmol/L (22-26) Blood Gas Base Excess 12.7 mmol/L (-2-2) Blood Gas Oxygen Saturation 90 % (90-100) Arterial Blood pH 7.38 (7.380-7.420) Arterial Blood Partial Pressure CO2 66 mmHg (38-42) Arterial Blood Partial Pressure O2 71 mmHg (61-120) Arterial Blood Oxygen Content 10.2 Vol % (12.0-20.0) Arterial Blood Carboxyhemoglobin 2.5 % (0-4) Arterial Blood Methemoglobin 1.2 % (0-2) Blood Gas Hemoglobin 8.0 G/DL (12.0-16.0) Oxygen Delivery Device NASAL CANNULA Blood Gas Liter Flow 4 L/M Blood Gas Inspired Oxygen 40 % Imaging Last Impressions Chest X-Ray 09/06/17 0000 Signed Impressions: Service Date/Time: Wednesday, September 06, 2017 08:27 - CONCLUSION: Improvement when compared to 09/05/17 Murtaza Mckenzie MD FACR Objective Remarks HEAD, EYES, EARS, NOSE, THROAT: Normocephalic and atraumatic. Extraocular muscles intact. Conjunctivae are pink. Nonicteric sclerae. Oral mucosa within normal limits. NECK: The neck is supple. No jugular venous distention noted. CARDIOVASCULAR: Regular rate and rhythm. Normal S1-S2. No murmurs, rubs or gallops noted. PULMONARY: Bilateral equal air entry diminished. ABDOMEN: The abdomen is soft, obese, nontender and no distention. Positive bowel sounds. EXTREMITIES: No clubbing. Edema noted and chronic venous stasis. NEUROLOGIC: Awake, alert, no focal deficits. A/P Assessment and Plan IMPRESSION: 1. Acute hypercapnic respiratory failure. 2. Acute on chronic kidney disease. 3. Obesity hypoventilation syndrome / obstructive sleep apnea. 4. COPD on two liters home oxygen. 5. Anemia. 6. Ethyl alcohol abuse. 7. Diastolic congestive heart failure. 8. Atrial fibrillation. 9. Chronic venous stasis dermatitis. 10.History of benign prostate hypertrophy. 11.Secondary hyperparathyroidism. 12.Mild hyponatremia overall improving. 13. Hyperglycemia. RECOMMENDATIONS: 1. Monitor neuro status closely and avoid any sedatives. 2. Continue with thiamine, multivitamins and folic acid. 3. Monitor for signs of withdrawal. 4. Continue oxygen to maintain saturations above 92%. 5. Bronchodilators in the form of DuoNeb q. 4 plus q. 2 PRN for shortness of breath. 6. Continue BIPAP as needed. Tolerating nasal cannula. 7. Monitor heart rate and blood pressure and maintain MAP greater than 65 mmHg. He is currently on Lopressor 25 milligrams q.8, Cardizem 240 daily, Digoxin 0.125 milligrams daily and Lasix 40 milligrams twice a day. Digoxin level 1.9 on September 05. 8. He had an echocardiogram in January which showed an ejection fraction of 65%. A repeat echocardiogram was ordered by the primary team. 9. Monitor renal function, intake and output and avoid nephrotoxins. 10. Continue with diuretics as stated above. Creatinine is 2.16 on 09/06 down from 2.65. Nephrology is following, Dr. Velazquez. Diamox 500mg IV x1 dose on to control diuretic induced metabolic alkalosis. 11. Continue with Protonix 40 milligrams daily for GI prophylaxis. 12. Tolerating by mouth diet 13. Monitor CBC for signs of infection, which include fever and WBCs. 14. Chest x-ray showed overall improvement and the urinalysis showed moderate leukocyte esterase and 5 WBCs. Continue Rocephin 1 gram IV daily. F/u urine and sputum culture with gram-stain. 15. Sliding scale insulin with Accu-Chek for glycemic control. 16. Monitor CBC. Transfused 2 units of packed red blood cells. 17. GI prophylaxis with Protonix. 18. DVT prophylaxis with SCDs. on Xarelto 15 milligrams daily. Consult and transfer to hospitalist service for further medical management. Patient will be transferred to [facility]. Albert Marshall MD Sep 08, 2017 13:59
[2017-09-08] MEDS: ACETAMINOPHEN 325 MG TAB PO PRN (17:02)
--- NOTE | 2017-09-08 17:17 | EKG ---
Date Performed: 09/07/2017 Time Performed: 15:27:28 PTAGE: 61 years EKG: Atrial fibrillation with rapid ventricular response. Incomplete RBBB RVH with secondary rep olarization abnormality Extensive ST-T changes are probably due to ventricular hypertrophy Abnormal E CG Compared to PREVIOUS TRACING , the patient is now in atrial fibrillation with rapid ventricular rate. PREVIOUS TRACING 09/04/2017 DOCTOR: Audrey Vogel Interpretating Date/Time 09/08/2017 17:16:26
[2017-09-08] MEDS: RESP: ALBUTEROL 2.5 MG/IPRATROPIUM 0.5 MG NEB (PRN) NEB (20:28)
[2017-09-08] MEDS: ATORVASTATIN 40 MG TAB PO SCH (20:50)
[2017-09-09] VITALS (20 sets, daily range): BP systolic 116–151; BP diastolic 59–69; PULSE 80–111; RESP 20–31; TEMP 98.6–99; O2SAT 93–100
[2017-09-09] MEDS: INSULIN ASPART SUPPLEMENTAL SCALE SQ SCH ×4 (02:00→19:53)
[2017-09-09] MEDS: CHLORHEXIDINE GLUCONATE 2 % 1 PACK (2 CLOTHS)(taper/protocol) TOPICAL SCH (04:00)
[2017-09-09] MEDS: METOPROLOL TARTRATE 25 MG TAB PO SCH ×3 (05:38→21:02)
[2017-09-09] MEDS ORDERED: ETOMIDATE 40 MG/20 ML VIAL ONE (06:28)
[2017-09-09] MEDS ORDERED: ETOMIDATE 20 MG/10 ML VIAL IVP ONE (06:30)
[2017-09-09] MEDS ORDERED: fentaNYL CITRATE 250 MCG/5 ML AMP IV ONE (06:30)
[2017-09-09] MEDS ORDERED: SUCCINYLCHOLINE CHLORIDE 200 MG/10 ML VIAL IV ONE (06:30)
[2017-09-09] MEDS ORDERED: methylPREDNISolone SOD SUCC 125 MG/2 ML VIAL IV PUSH ONE (06:45)
[2017-09-09] MEDS: PROPOFOL 1000 MG/100 ML INJ 100 ML IV PRN ×6 (06:58→22:34)
[2017-09-09] MEDS: CHLORHEXIDINE 0.12% (ORAL KIT) 15 ML CUP MT SCH ×2 (08:00→19:54)
--- NOTE | 2017-09-09 08:05 | RADRPT ---
EXAM DATE/TIME: 09/09/2017 07:42 [facility] COMPARISON: CHEST SINGLE AP, September 08, 2017, 3:17. INDICATIONS : Short of breath. MEDICAL HISTORY : Chronic obstructive pulmonary disease. Hypercholesterolemia. Myocardial infarction. SURGICAL HISTORY : Cardiac ablation. ENCOUNTER: Subsequent ACUITY: 3 weeks PAIN SCORE: Non-responsive. LOCATION: Bilateral chest FINDINGS: Endotracheal tube is present with tip 5-6 cm above the eulalia. Nasogastric tube coils in the stomach. There is hazy primarily basilar pleuroparenchymal opacity which appears unchanged. Apical capping is presumably pleural fluid. Cardiomediastinal contours are unchanged with mild cardiac enlargement. CONCLUSION: Stable probable fluid overload Renny Hinojosa MD on September 09, 2017 at 8:02 Board Certified Radiologist. This report was verified electronically.
[2017-09-09] MEDS: guaiFENesin E.R. 600 MG TAB PO SCH ×2 (08:24→21:01)
[2017-09-09] MEDS: CHOLECALCIFEROL (VIT D3) 1000 UNIT TAB PO SCH (08:24)
[2017-09-09] MEDS: RIVAROXABAN 15 MG TAB PO SCH (08:24)
[2017-09-09] MEDS: DIGOXIN 0.125 MG TAB PO SCH (08:24)
[2017-09-09] MEDS: THIAMINE HCL 100 MG TAB PO SCH (08:25)
[2017-09-09] MEDS: DOCUSATE SODIUM 50 MG/SENNA 8.6 MG TAB PO SCH ×2 (08:25→21:01)
[2017-09-09] MEDS: ASCORBIC ACID 500 MG TAB PO SCH (08:25)
[2017-09-09] MEDS: PANTOPRAZOLE SOD 40 MG DELAYED RELEASE TAB PO SCH ×2 (08:25→21:01)
[2017-09-09] MEDS: FERROUS SULFATE 325 MG (65 MG ELEMENTAL IRON) TAB PO SCH ×2 (08:25→21:01)
[2017-09-09] MEDS: CALCIUM ACETATE 667 MG CAP PO SCH ×3 (08:25→17:09)
[2017-09-09] MEDS: FOLIC ACID 1 MG TAB PO SCH (08:25)
[2017-09-09] MEDS: MULTIVITAMIN TAB PO SCH (08:25)
[2017-09-09] MEDS: TAMSULOSIN HCL 0.4 MG CAP PO SCH (08:25)
[2017-09-09] MEDS: FUROSEMIDE 40 MG/4 ML VIAL IV PUSH SCH ×2 (08:26→17:10)
[2017-09-09] MEDS: FLUTICASONE 100 MCG/VILANTEROL 25 MCG INHALER INH SCH (08:26)
[2017-09-09] MEDS: SODIUM CHLORIDE 0.9% FLUSH 10 ML FLUSH IV FLUSH SCH ×2 (08:27→21:01)
[2017-09-09] MEDS: BUDESONIDE-FORMOTEROL 160/4.5 MCG INHALER INH SCH ×2 (08:27→21:00)
[2017-09-09] MEDS: DILTIAZEM-CD 240 MG CAP ER PO SCH (08:27)
[2017-09-09] MEDS: METOLAZONE 2.5 MG TAB PO SCH ×2 (08:28→21:00)
[2017-09-09] MEDS: LACTIC ACID (AMMONIUM LACTATE) 12% LOTION 225 GM BTL TOPICAL SCH ×2 (08:28→21:00)
[2017-09-09] MEDS: PIPERACIL-TAZO 4.5 GM PREMIX 100 ML IV SCH ×3 (08:32→18:11)
[2017-09-09] MEDS: LINEZOLID 600 MG PREMIX 300 ML IV SCH ×2 (08:33→19:53)
--- NOTE | 2017-09-09 09:04 | HHI.NPPN ---
Subjective General Problems: Anemia, COPD, Edema, Heart Disease Renal Failure: Chronic, Acute, Stage III History of Present Illness 61-year-old male known to me from before with past medical history of ischemic heart disease, history of congestive heart failure, lymphedema of the legs, chronic kidney disease with recurrent acute kidney injury, multiple admissions for congestive heart multiple, admission for fluid overload status who came to the hospital with complaint of increased swelling of the legs and worsening shortness of breath. I was called to see the patient for the management of fluid and renal failure. Additional Remarks Excellent urine output on diuretic regimen. Labs are pending. He was intubated. Review of Systems General Constitutional: Fatigue Respiratory Lungs: SOB, Cough, Wheeze Cardiovascular Cardiac: Edema, SHETH Objective Data Data Vital Signs Date Time Temp Pulse Resp B/P (MAP) Pulse Ox O2 Delivery O2 Flow Rate FiO2 09/09/17 07:19 100 100 09/09/17 06:45 80 09/09/17 06:00 99 09/09/17 05:10 93 35 09/09/17 04:30 95 Nasal Cannula 6.00 09/09/17 04:03 98.8 104 28 122/60 (80) 96 09/09/17 04:00 103 09/09/17 02:00 111 09/09/17 00:00 99.0 106 31 123/59 (80) 95 09/09/17 00:00 106 09/08/17 22:00 92 09/08/17 20:31 94 Nasal Cannula 4.00 09/08/17 20:00 98.4 96 25 121/61 (81) 94 09/08/17 20:00 96 09/08/17 19:00 92 Nasal Cannula 4.00 09/08/17 19:00 Nasal Cannula 4.00 09/08/17 18:00 101 09/08/17 17:00 102 09/08/17 16:00 101 09/08/17 16:00 101.0 101 29 126/59 (81) 97 09/08/17 15:00 96 09/08/17 14:00 96 09/08/17 13:00 99 09/08/17 12:54 95 Nasal Cannula 4.00 09/08/17 12:00 102 09/08/17 12:00 98.9 102 20 124/58 (80) 97 09/08/17 11:00 104 09/08/17 10:00 110 -: 09/08/17 0440 09/08/17 0440 Physical Exam General Appearance: Anxious, Obese Eyes Eye Exam: Pupils Equal Throat Throat Exam: Oral Mucosa [place] & Moist Neck Neck Exam: Neck Supple Pulmonary Resp Exam: Breath Sounds Equal, Crackles, Rhonchi, Sputum, Decreased Bases, Diminished Breath Sounds Cardiology CV Exam: Regular, Normal Sinus Rhythm Gastrointestinal/Abdomen GI Exam: Soft, Non-Tender, Bowel Sounds Present, Distended (abd. wall edema.) Extremeties Extremities Exam: Moderate Edema, Pitting Edema, Dependent Edema Neurologic Neuro Exam: Alert, Awake Psychiatric Psych Exam: Appropriate Responses Assessment/Plan Assessment Summary: CORIN/Acute Renal Failure, Anemia of CKD, Fluid/Volume Overload, CKD Stage III Problem List: (1) Acute on chronic kidney failure ICD Codes: N17.9 - Acute kidney failure, unspecified; N18.9 - Chronic kidney disease, unspecified Plan: renal function has improved. Good diuresis. Avoid nephrotoxic agents. Replace potassium as needed. He likely has chronic lymphedema, and excessive diuresis may result in azotemia, continue to monitor. (2) Respiratory failure ICD Codes: J96.90 - Respiratory failure, unspecified, unspecified whether with hypoxia or hypercapnia Status: Acute Plan: improved. (3) Atrial fibrillation, chronic ICD Codes: I48.2 - Chronic atrial fibrillation Status: Chronic Plan: rate control measures. (4) COPD exacerbation ICD Codes: J44.1 - Chronic obstructive pulmonary disease with (acute) exacerbation Status: Acute (5) Edema ICD Codes: R60.9 - Edema, unspecified Status: Chronic (6) Anemia ICD Codes: D64.9 - Anemia, unspecified Status: Acute Plan: Hemoglobin is low but stable. Problem Qualifiers (1) Edema: Qualified Codes: R60.9 - Edema, unspecified (2) Anemia: Qualified Codes: D64.9 - Anemia, unspecified Jian Matute MD Sep 09, 2017 09:04
[2017-09-09 10:08] LABS: BILIRUBIN, URINE NEG (NEG); BLOOD, URINE SMALL (NEG); GLUCOSE,URINE NEG (NEG); HYALINE CAST, URINE 7 /lpf (RARE); KETONE, URINE NEG (NEG); NITRITE,URINE NEG (NEG); PH, URINE 5.5 (5.0-8.5); SQUAMOUS EPITHELIAL CELL URINE <1 /hpf (0-5); TRANSITIONAL EPI CELLS, URINE <1 /hpf; URINE COLOR YELLOW (YELLW/STRAW); URINE LEUKOCYTE ESTERASE MOD (NEG)
[2017-09-09 11:55] LABS: AUTOMATED NEUTROPHIL # 5.1 TH/MM3 (1.8-7.7); BASOPHIL % 0.5 % (0.0-2.0); EOSINOPHIL # 0.1 TH/MM3 (0-0.4); EOSINOPHIL % 1.5 % (0.0-4.0); HEMATOCRIT 22.7 % (39.0-51.0); HEMOGLOBIN 7.3 GM/DL (13.0-17.0); LYMPH % 3.5 % (9.0-44.0); LYMPHOCYTE # 0.2 TH/MM3 (1.0-4.8); MEAN CELL VOLUME 88.3 FL (80.0-100.0); MEAN CORPUSCULAR HEMOGLOBIN 28.6 PG (27.0-34.0); MEAN CORPUSCULAR HGB CONC 32.4 % (32.0-36.0); MEAN PLATELET VOLUME 7.6 FL (7.0-11.0); MONOCYTE # 0.2 TH/MM3 (0-0.9); NEUT % 91.5 % (16.0-70.0); PLATELET COUNT 210 TH/MM3 (150-450); RED BLOOD COUNT 2.57 MIL/MM3 (4.50-5.90); RED CELL DISTRIBUTION WIDTH 21.8 % (11.6-17.2); WHITE BLOOD COUNT 5.6 TH/MM3 (4.0-11.0)
[2017-09-09 12:17] LABS: ALBUMIN 2.5 GM/DL (3.4-5.0); AST (GOT) 14 U/L (15-37); BICARBONATE 39.2 MEQ/L (21.0-32.0); CALCIUM 8.8 MG/DL (8.5-10.1); CHLORIDE 91 MEQ/L (98-107); CREATININE 1.46 MG/DL (0.60-1.30); GLOMERULAR FILTRATION RATE 49 ML/MIN (>89); GLUCOSE,RANDOM 145 MG/DL (74-106); SODIUM (NA) 136 MEQ/L (136-145)
[2017-09-09 12:24] LABS: ALKALINE PHOSPHATASE 139 U/L (45-117); ALT (GPT) 17 U/L (12-78); BLOOD UREA NITROGEN 39 MG/DL (7-18); TOTAL PROTEIN 6.1 GM/DL (6.4-8.2)
[2017-09-09] MEDS: methylPREDNISolone SOD SUCC 40 MG/1 ML VIAL IV PUSH SCH ×2 (13:07→21:01)
--- NOTE | 2017-09-09 15:18 | HHI.CCPN ---
Subjective Remarks/Hospital Course 09/06: The patient is a 61 year old male with multiple comorbidities which include diastolic congestive heart failure, chronic atrial fibrillation on Xarelto, hypertension, hyperlipidemia, COPD, obstructive sleep apnea on 2 liters home oxygen. He was admitted to [facility] on September 04 under the hospitalist service for edema of the lower extremities and increasing dyspnea. On arrival, he had a hemoglobin of 7.0, which dropped to 6.6 this morning. The patient is scheduled to receive one unit of packed red blood cells. In addition, he was found to be in acute renal failure with a BUN 59, creatinine 2.88 and a potassium of 4.0. Chest x-ray on arrival showed subsegmental and basilar atelectasis. He had a repeat chest x-ray this morning which showed overall improvements. A HaliCAT was called for shortness of breath and he was subsequently placed on a BiPAP 08/18 with a 60% FIO2. The patient had an ABG at 01:28 this morning which showed acute on chronic hypercapnic respiratory acidosis with a pH of 7.31, CO2 of 62, pAO2 100, bicarb 31, sats of 94%. He was subsequently transferred to the intensive care unit on BiPAP and a repeat ABG was performed which showed worsening respiratory acidosis with a pH of 7.26, CO2 74, pAO2 123, bicarb 32, sats 95% on 08/18 with 55% FIO2. The patient is awake, alert. He had an echocardiogram back in January which showed normal left ventricular systolic function with an ejection fraction of 65%. 09/07: Awake and alert, on BiPAP with full facemask this morning. Wanted to eat at the time of my evaluation this morning. 09/08: Awake and alert, on nasal cannula. Not in any acute distress. 09/09: Patient developed worsening respiratory distress overnight and was on BiPAP. CO2 elevated on ABG done this morning. Patient was emergently intubated and placed on mechanical ventilation. Barton cultures obtained and antibiotic coverage broadened from Rocephin to Zosyn/Zyvox. Solu-Medrol started. Objective Vital Signs Date Time Temp Pulse Resp B/P (MAP) Pulse Ox O2 Delivery O2 Flow Rate FiO2 09/09/17 14:00 97 09/09/17 12:00 98.9 25 151/69 (96) 94 09/09/17 12:00 50 09/09/17 04:30 Nasal Cannula 6.00 Intake and Output 09/09/17 09/09/17 09/10/17 08:00 16:00 00:00 Intake Total 300 ml 500 ml Output Total 1300 ml Balance -1000 ml 500 ml Result Diagram: 09/09/17 1130 09/09/17 1130 Other Results Microbiology Date/Time Source Procedure Growth Status 09/06/17 16:45 Urine Random Urine Urine Culture - Final NO GROWTH IN 48 HOURS. Complete Laboratory Tests Test 09/09/17 06:12 09/09/17 08:24 Blood Gas Puncture Site RT RADIAL RT RADIAL Blood Gas Patient Temperature 98.6 98.6 Blood Gas HCO3 40 mmol/L (22-26) 40 mmol/L (22-26) Blood Gas Base Excess 13.6 mmol/L (-2-2) 13.5 mmol/L (-2-2) Blood Gas Oxygen Saturation 91 % (90-100) 96 % (90-100) Arterial Blood pH 7.33 (7.380-7.420) 7.34 (7.380-7.420) Arterial Blood Partial Pressure CO2 78 mmHg (38-42) 76 mmHg (38-42) Arterial Blood Partial Pressure O2 80 mmHg (61-120) 232 mmHg (61-120) Arterial Blood Oxygen Content 10.1 Vol % (12.0-20.0) 10.5 Vol % (12.0-20.0) Arterial Blood Carboxyhemoglobin 2.8 % (0-4) 2.5 % (0-4) Arterial Blood Methemoglobin 1.3 % (0-2) 1.2 % (0-2) Blood Gas Hemoglobin 7.8 G/DL (12.0-16.0) 7.3 G/DL (12.0-16.0) Oxygen Delivery Device BIPAP VENTILATOR Blood Gas Ventilator Setting [id number]/[id number] PRVC/AC Blood Gas Inspired Oxygen 35 % 80 % Imaging Last 48 hours Impressions Chest X-Ray 09/09/17 0000 Signed Impressions: Service Date/Time: Saturday, September 09, 2017 07:42 - CONCLUSION: Stable probable fluid overload Renny Hinojosa MD Chest X-Ray 09/08/17 0600 Signed Impressions: Service Date/Time: Friday, September 08, 2017 03:17 - CONCLUSION: Moderate CHF slightly worse. Deanna Alvarez MD Last Impressions Chest X-Ray 09/06/17 0000 Signed Impressions: Service Date/Time: Wednesday, September 06, 2017 08:27 - CONCLUSION: Improvement when compared to 09/05/17 Murtaza Mckenzie MD FACR Objective Remarks HEAD, EYES, EARS, NOSE, THROAT: Normocephalic and atraumatic. Extraocular muscles intact. Conjunctivae are pink. Nonicteric sclerae. Oral mucosa within normal limits. NECK: The neck is supple. No jugular venous distention noted. CARDIOVASCULAR: Regular rate and rhythm. Normal S1-S2. No murmurs, rubs or gallops noted. PULMONARY: Bilateral equal air entry diminished. ABDOMEN: The abdomen is soft, obese, nontender and no distention. Positive bowel sounds. EXTREMITIES: No clubbing. Edema noted and chronic venous stasis. NEUROLOGIC: Awake, alert, no focal deficits. A/P Assessment and Plan IMPRESSION: 1. Acute hypercapnic respiratory failure requiring mechanical ventilation 2. Acute on chronic kidney disease. 3. Obesity hypoventilation syndrome / obstructive sleep apnea. 4. COPD on two liters home oxygen. 5. Anemia. 6. Ethyl alcohol abuse. 7. Diastolic congestive heart failure. 8. Atrial fibrillation. 9. Chronic venous stasis dermatitis. 10.History of benign prostate hypertrophy. 11.Secondary hyperparathyroidism. 12.Mild hyponatremia overall improving. 13. Hyperglycemia. RECOMMENDATIONS: 1. Sedation with propofol, daily sedation vacation 2. Continue with thiamine, multivitamins and folic acid. 3. Ativan/Librium 5 call withdrawal. Monitor for signs of withdrawal. 4. Intubated and placed on mechanical ventilation, vent bundle, bronchodilators , IV Solu-Medrol initiated 5. Daily C Pap trials starting tomorrow. 6. Barton cultures obtained and broaden antibiotics from Rocephin to Zosyn and Zyvox on 09/09 7. Monitor heart rate and blood pressure and maintain MAP greater than 65 mmHg. He is currently on Lopressor 25 milligrams q.8, Cardizem 240 daily, Digoxin 0.125 milligrams daily and Lasix 40 milligrams twice a day. Digoxin level 1.9 on September 05. 8. He had an echocardiogram in January which showed an ejection fraction of 65%. A repeat echocardiogram with echo 55% 9. Monitor renal function, intake and output and avoid nephrotoxins. 10. Continue with diuretics as stated above. Creatinine is 2.16 on 09/06 down from 2.65. Nephrology is following, Dr. Velazquez. Diamox 500mg IV x1 dose on to control diuretic induced metabolic alkalosis. 11. Continue with Protonix 40 milligrams daily for GI prophylaxis. 12. Start tube feeds and advanced to goal as tolerated 13. Monitor CBC for signs of infection, which include fever and WBCs. 14. Chest x-ray showed pulmonary edema and the urinalysis showed moderate leukocyte esterase and 5 WBCs. Rocephin switched to Zosyn and linezolid on 09/08. F/u urine and sputum culture with gram-stain. 15. Sliding scale insulin with Accu-Chek for glycemic control. 16. Monitor CBC. Transfused 2 units of packed red blood cells. 17. GI prophylaxis with Protonix. 18. DVT prophylaxis with SCDs. on Xarelto 15 milligrams daily. Condition critical Time spent on critical care excluding procedures 35 minutes Albert Marshall MD Sep 09, 2017 15:18
--- NOTE | 2017-09-09 17:55 | PD.PROCEDR ---
Procedure Note Procedure Procedure: Endotracheal intubation Preop diagnosis: Acute respiratory failure Postop diagnosis: Same Sedation used: Etomidate 25 mg, fentanyl 200 mcg, succinylcholine 150 mg IV Procedure: Patient was preoxygenated with 100% oxygen via Ambu bag with bag mask ventilation, following induction of sedation and neuromuscular blockade, direct laryngoscopy was performed using a Mac 4 blade with good visualization of vocal cords. An 8 Pakistani ET tube was passed through the vocal cords under direct visualization up to the [] centimeter darleen and after inflating cuff of ET tube, correct placement was confirmed using bagging with good color change on CO2 detector, 5 point auscultation and chest rise with ventilation. Patient was connected to mechanical ventilation. Patient tolerated the procedure well with no immediate complications noted. Postprocedure chest x-ray was ordered. Albert Marshall MD Sep 09, 2017 17:55
[2017-09-09] MEDS: RESP: ALBUTEROL 2.5 MG/IPRATROPIUM 0.5 MG NEB (PRN) NEB (20:13)
[2017-09-09] MEDS: ATORVASTATIN 40 MG TAB PO SCH (21:01)
[2017-09-10] VITALS (19 sets, daily range): BP systolic 128–157; BP diastolic 60–83; PULSE 70–89; RESP 19–29; TEMP 97.9–98.7; O2SAT 93–97
[2017-09-10] MEDS: PIPERACIL-TAZO 4.5 GM PREMIX 100 ML IV SCH ×5 (01:50→23:49)
[2017-09-10] MEDS: PROPOFOL 1000 MG/100 ML INJ 100 ML IV PRN ×9 (01:50→23:49)
[2017-09-10] MEDS: LACTIC ACID (AMMONIUM LACTATE) 12% LOTION 225 GM BTL TOPICAL SCH ×2 (02:29→08:24)
[2017-09-10] MEDS: CHLORHEXIDINE GLUCONATE 2 % 1 PACK (2 CLOTHS)(taper/protocol) TOPICAL SCH (02:29)
[2017-09-10] MEDS: INSULIN ASPART SUPPLEMENTAL SCALE SQ SCH ×4 (02:29→20:00)
[2017-09-10] MEDS: RESP: ALBUTEROL 2.5 MG/IPRATROPIUM 0.5 MG NEB (PRN) NEB (03:16)
[2017-09-10] MEDS: methylPREDNISolone SOD SUCC 40 MG/1 ML VIAL IV PUSH SCH ×3 (05:06→23:49)
[2017-09-10] MEDS: METOPROLOL TARTRATE 25 MG TAB PO SCH ×3 (05:07→23:50)
[2017-09-10] MEDS: LINEZOLID 600 MG PREMIX 300 ML IV SCH ×2 (07:24→23:48)
[2017-09-10] MEDS: CHLORHEXIDINE 0.12% (ORAL KIT) 15 ML CUP MT SCH ×2 (07:24→23:52)
[2017-09-10] MEDS: DILTIAZEM-CD 240 MG CAP ER PO SCH (07:25)
[2017-09-10] MEDS: BUDESONIDE-FORMOTEROL 160/4.5 MCG INHALER INH SCH (07:25)
[2017-09-10] MEDS: FLUTICASONE 100 MCG/VILANTEROL 25 MCG INHALER INH SCH (07:25)
[2017-09-10] MEDS: CALCIUM ACETATE 667 MG CAP PO SCH (07:26)
[2017-09-10] MEDS: TAMSULOSIN HCL 0.4 MG CAP PO SCH (07:26)
[2017-09-10 08:08] LABS: AUTOMATED NEUTROPHIL # 5.2 TH/MM3 (1.8-7.7); BASOPHIL % 0.3 % (0.0-2.0); HEMATOCRIT 23.6 % (39.0-51.0); HEMOGLOBIN 7.8 GM/DL (13.0-17.0); LYMPH % 4.9 % (9.0-44.0); LYMPHOCYTE # 0.3 TH/MM3 (1.0-4.8); MEAN CELL VOLUME 87.2 FL (80.0-100.0); MEAN CORPUSCULAR HEMOGLOBIN 28.7 PG (27.0-34.0); MEAN CORPUSCULAR HGB CONC 32.9 % (32.0-36.0); MEAN PLATELET VOLUME 7.9 FL (7.0-11.0); MONO % 3.4 % (0.0-8.0); MONOCYTE # 0.2 TH/MM3 (0-0.9); NEUT % 91.4 % (16.0-70.0); PLATELET COUNT 233 TH/MM3 (150-450); RED BLOOD COUNT 2.71 MIL/MM3 (4.50-5.90); RED CELL DISTRIBUTION WIDTH 21.1 % (11.6-17.2); WHITE BLOOD COUNT 5.7 TH/MM3 (4.0-11.0)
[2017-09-10] MEDS: FERROUS SULFATE 325 MG (65 MG ELEMENTAL IRON) TAB PO SCH ×2 (08:23→23:50)
[2017-09-10] MEDS: METOLAZONE 2.5 MG TAB PO SCH ×2 (08:23→21:00)
[2017-09-10] MEDS: MULTIVITAMIN TAB PO SCH (08:23)
[2017-09-10] MEDS: RIVAROXABAN 15 MG TAB PO SCH (08:23)
[2017-09-10] MEDS: FOLIC ACID 1 MG TAB PO SCH (08:23)
[2017-09-10] MEDS: guaiFENesin E.R. 600 MG TAB PO SCH ×2 (08:23→21:00)
[2017-09-10] MEDS: PANTOPRAZOLE SOD 40 MG DELAYED RELEASE TAB PO SCH ×2 (08:23→23:50)
[2017-09-10] MEDS: THIAMINE HCL 100 MG TAB PO SCH (08:23)
[2017-09-10] MEDS: CHOLECALCIFEROL (VIT D3) 1000 UNIT TAB PO SCH (08:23)
[2017-09-10] MEDS: DIGOXIN 0.125 MG TAB PO SCH (08:23)
[2017-09-10] MEDS: ASCORBIC ACID 500 MG TAB PO SCH (08:23)
[2017-09-10] MEDS: DOCUSATE SODIUM 50 MG/SENNA 8.6 MG TAB PO SCH ×2 (08:23→23:51)
[2017-09-10] MEDS: FUROSEMIDE 40 MG/4 ML VIAL IV PUSH SCH ×2 (08:25→17:58)
[2017-09-10] MEDS: SODIUM CHLORIDE 0.9% FLUSH 10 ML FLUSH IV FLUSH SCH (08:25)
[2017-09-10 08:29] LABS: ALBUMIN 2.5 GM/DL (3.4-5.0); AST (GOT) 16 U/L (15-37); BICARBONATE 37.2 MEQ/L (21.0-32.0); BLOOD UREA NITROGEN 43 MG/DL (7-18); CALCIUM 9.2 MG/DL (8.5-10.1); CHLORIDE 90 MEQ/L (98-107); CREATININE 1.54 MG/DL (0.60-1.30); GLOMERULAR FILTRATION RATE 46 ML/MIN (>89); GLUCOSE,RANDOM 162 MG/DL (74-106); SODIUM (NA) 137 MEQ/L (136-145)
[2017-09-10 08:33] LABS: ALKALINE PHOSPHATASE 122 U/L (45-117); ALT (GPT) 15 U/L (12-78); TOTAL BILIRUBIN ADULT 0.7 MG/DL (0.2-1.0); TOTAL PROTEIN 6.2 GM/DL (6.4-8.2)
[2017-09-10] MEDS ORDERED: MAGNESIUM SULFATE INJ 4 GM in SODIUM CHLORIDE 0.9% INJ 92 ML IV PRN (08:45)
[2017-09-10] MEDS ORDERED: MAGNESIUM SULFATE INJ 2 GM in SODIUM CHLORIDE 0.9% INJ 96 ML IV PRN (08:45)
[2017-09-10] MEDS ORDERED: MAGNESIUM OXIDE 400 MG TAB PO PRN (08:45)
[2017-09-10] MEDS ORDERED: POTASSIUM PHOSPHATE MONOBASIC 500 MG TAB PO PRN (08:45)
[2017-09-10] MEDS ORDERED: POTASSIUM CHLORIDE 25 MEQ EFFERVESCENT TAB PO PRN (08:45)
[2017-09-10] MEDS ORDERED: POTASSIUM CHLOR 20 MEQ PREMIX 100 ML IV PRN ×2 (08:45)
[2017-09-10] MEDS ORDERED: SODIUM PHOSPHATE INJ 30 MMOL in SODIUM CHLOR 0.9% 250 ML INJ 240 ML IV PRN (08:45)
[2017-09-10] MEDS ORDERED: POTASSIUM PHOSPHATE MONOBASIC 500 MG TAB PO/TUBE PRN (08:45)
[2017-09-10] MEDS ORDERED: POTASSIUM PHOSPHATE INJ 30 MMOL in SODIUM CHLOR 0.9% 250 ML INJ 250 ML IV PRN (08:45)
[2017-09-10] MEDS ORDERED: POTASSIUM CHLOR 40 MEQ PREMIX 100 ML IV PRN ×2 (08:45)
[2017-09-10] MEDS ORDERED: POTASSIUM CHLORIDE 25 MEQ EFFERVESCENT TAB PO ONE (08:45)
[2017-09-10] MEDS: MAGNESIUM SULFATE 1 GM PREMIX 100 ML IV SCH ×2 (08:53→11:51)
[2017-09-10] MEDS: POTASSIUM CHLOR 20 MEQ PREMIX 100 ML IV SCH ×2 (09:22→11:50)
--- NOTE | 2017-09-10 09:55 | HHI.NPPN ---
Subjective General Problems: Anemia, COPD, Edema, Heart Disease Renal Failure: Chronic, Acute, Stage III History of Present Illness 61-year-old male known to me from before with past medical history of ischemic heart disease, history of congestive heart failure, lymphedema of the legs, chronic kidney disease with recurrent acute kidney injury, multiple admissions for congestive heart multiple, admission for fluid overload status who came to the hospital with complaint of increased swelling of the legs and worsening shortness of breath. I was called to see the patient for the management of fluid and renal failure. Interval History He remains intubated. Creatinine slightly higher but overall stable. Excellent urine output. No plans for extubation today per trim and burr operator. Fluid overload on exam. (Tika Hartman) Review of Systems General Constitutional: Fatigue General Remarks unable to evaluate (Tika Hartman) Objective Data Data Vital Signs Date Time Temp Pulse Resp B/P (MAP) Pulse Ox O2 Delivery O2 Flow Rate FiO2 09/10/17 08:01 95 50 09/10/17 08:00 50 09/10/17 08:00 85 09/10/17 08:00 98.3 86 29 134/60 (84) 95 09/10/17 06:00 84 09/10/17 04:01 98.7 79 24 136/60 (85) 94 09/10/17 04:00 50 09/10/17 04:00 80 09/10/17 03:17 97 50 09/10/17 02:00 81 09/10/17 00:01 98.4 78 24 155/80 (105) 94 09/10/17 00:00 78 09/10/17 00:00 50 09/09/17 23:27 95 50 09/09/17 22:00 80 09/09/17 20:15 98 50 09/09/17 20:00 80 09/09/17 20:00 98.9 80 24 141/67 (91) 94 09/09/17 20:00 50 09/09/17 18:00 81 09/09/17 16:00 50 09/09/17 16:00 97 09/09/17 16:00 98.8 83 24 137/62 (87) 94 09/09/17 15:12 95 50 09/09/17 14:00 97 12/27/17 12:00 98.9 87 25 151/69 (96) 94 09/09/17 12:00 88 09/09/17 12:00 50 09/09/17 11:02 95 50 09/09/17 10:00 87 (Tika Hartman) -: 09/10/17 0640 09/10/17 0640 Microbiology 09/09/17 Aerobic Blood Culture, Received Pending 09/09/17 Anaerobic Blood Culture, Received Pending 09/09/17 Aerobic Blood Culture, Received Pending 09/09/17 Anaerobic Blood Culture, Received Pending Imaging Last 72 hours Impressions Chest X-Ray 09/09/17 0000 Signed Impressions: Service Date/Time: Saturday, September 09, 2017 07:42 - CONCLUSION: Stable probable fluid overload Renny Hinojosa MD Chest X-Ray 09/08/17 0600 Signed Impressions: Service Date/Time: Friday, September 08, 2017 03:17 - CONCLUSION: Moderate CHF slightly worse. Deanna Alvarez MD Tubes & Lines: [place] Drip Comment propofol. (Tika Hartman) Physical Exam General Appearance: Comfortable, Anxious, Obese (Tika Hartman) Eyes Eye Exam: Pupils Equal (Tika Hartman) Throat Throat Exam: Oral Mucosa [place] & Moist (Tika Hartman) Neck Neck Exam: Neck Supple (Tika Hartman) Pulmonary Resp Exam: Breath Sounds Equal, Crackles, Rhonchi, Sputum, Decreased Bases, Diminished Breath Sounds (Tika Hartman) Cardiology CV Exam: Regular, Normal Sinus Rhythm (Tika Hartman) Gastrointestinal/Abdomen GI Exam: Soft, Non-Tender, Bowel Sounds Present, Bowel Sounds Hyperactive GI Remarks obese, soft (Tika Hartman) Musculoskeletal MS Exam: Normal Gait, Good Strength, Unable to Ambulate (Tika Hartman) Integumentary Skin Exam: Warm, Dry Skin Remarks chronic skin changes on bilateral lower extremities (Tika Hartman) Extremeties Extremities Exam: Moderate Edema, Pitting Edema, Dependent Edema (Tika Hartman) Neurologic Neuro Exam: Moving All Extremities, Unresponsive, Sedated (Tika Hartman) Assessment/Plan Assessment Summary: CORIN/Acute Renal Failure, Anemia of CKD, Fluid/Volume Overload, Hypertension, CKD Stage III Electrolyte Assessment: Hypokalemia Problem List: (1) Acute on chronic kidney failure ICD Codes: N17.9 - Acute kidney failure, unspecified; N18.9 - Chronic kidney disease, unspecified Plan: Creatinine slightly worse today but overall stable. He is non oliguric. IV potassium replacement ordered. Avoid nephrotoxic agents. Continue diuresis cautiously. He likely has chronic lymphedema, and excessive diuresis may result in azotemia Repeat labs in AM. Follow fluid status. Avoid IVF administration. Stop Calcium acetate, it is not indicated at this time. Continue flomax (2) Respiratory failure ICD Codes: J96.90 - Respiratory failure, unspecified, unspecified whether with hypoxia or hypercapnia Status: Acute Plan: Intubated. ON 40% FiO2. Possible extubation tomorrow per trim and burr operator. ON Zyvoxx and Zosyn for pneumonia. (3) Edema ICD Codes: R60.9 - Edema, unspecified Status: Chronic Plan: Monitor fluid status. ON Lasix and metolazone. (4) Atrial fibrillation, chronic ICD Codes: I48.2 - Chronic atrial fibrillation Status: Chronic Plan: rate control measures. (5) COPD exacerbation ICD Codes: J44.1 - Chronic obstructive pulmonary disease with (acute) exacerbation Status: Acute Plan: Nebs, vent weening as tolerated. (6) Anemia ICD Codes: D64.9 - Anemia, unspecified Status: Acute Plan: Hemoglobin is low but stable. (Tika Hartman) Plan patient was seen and examined. Agree with above assessment and plan. (Jian Matute MD) Problem Qualifiers (1) Edema: Qualified Codes: R60.9 - Edema, unspecified (2) Anemia: Qualified Codes: D64.9 - Anemia, unspecified Tika Hartamn Sep 10, 2017 09:55 Jian Matute MD Sep 10, 2017 14:41
--- NOTE | 2017-09-10 10:01 | HHI.CCPN ---
Subjective Remarks/Hospital Course 09/06: The patient is a 61 year old male with multiple comorbidities which include diastolic congestive heart failure, chronic atrial fibrillation on Xarelto, hypertension, hyperlipidemia, COPD, obstructive sleep apnea on 2 liters home oxygen. He was admitted to [facility] on September 04 under the hospitalist service for edema of the lower extremities and increasing dyspnea. On arrival, he had a hemoglobin of 7.0, which dropped to 6.6 this morning. The patient is scheduled to receive one unit of packed red blood cells. In addition, he was found to be in acute renal failure with a BUN 59, creatinine 2.88 and a potassium of 4.0. Chest x-ray on arrival showed subsegmental and basilar atelectasis. He had a repeat chest x-ray this morning which showed overall improvements. A HaliCAT was called for shortness of breath and he was subsequently placed on a BiPAP 08/18 with a 60% FIO2. The patient had an ABG at :28 this morning which showed acute on chronic hypercapnic respiratory acidosis with a pH of 7.31, CO2 of 62, pAO2 100, bicarb 31, sats of 94%. He was subsequently transferred to the intensive care unit on BiPAP and a repeat ABG was performed which showed worsening respiratory acidosis with a pH of 7.26, CO2 74, pAO2 123, bicarb 32, sats 95% on 08/18 with 55% FIO2. The patient is awake, alert. He had an echocardiogram back in January which showed normal left ventricular systolic function with an ejection fraction of 65%. 09/07: Awake and alert, on BiPAP with full facemask this morning. Wanted to eat at the time of my evaluation this morning. 09/08: Awake and alert, on nasal cannula. Not in any acute distress. 09/09: Patient developed worsening respiratory distress overnight and was on BiPAP. CO2 elevated on ABG done this morning. Patient was emergently intubated and placed on mechanical ventilation. Barton cultures obtained and antibiotic coverage broadened from Rocephin to Zosyn/Zyvox. Solu-Medrol started. 09/10: intubated yesterday for worsening hypoxemia. BNP elevated. Cr worsening, but still clinically appears volume overloaded. Objective Vital Signs Date Time Temp Pulse Resp B/P (MAP) Pulse Ox O2 Delivery O2 Flow Rate FiO2 09/10/17 08:01 95 50 09/10/17 08:00 85 09/10/17 08:00 98.3 29 134/60 (84) 09/09/17 04:30 Nasal Cannula 6.00 Intake and Output 09/10/17 09/10/17 09/11/17 08:00 16:00 00:00 Intake Total 300 ml Output Total 700 ml Balance -400 ml Result Diagram: 09/10/17 0640 09/10/17 0640 Imaging Last 48 hours Impressions Chest X-Ray 09/09/17 0000 Signed Impressions: Service Date/Time: Saturday, September 09, 2017 07:42 - CONCLUSION: Stable probable fluid overload Renny Hinojosa MD Chest X-Ray 09/08/17 0600 Signed Impressions: Service Date/Time: Friday, September 08, 2017 03:17 - CONCLUSION: Moderate CHF slightly worse. Deanna Alvarez MD Last Impressions Chest X-Ray 09/06/17 0000 Signed Impressions: Service Date/Time: Wednesday, September 06, 2017 08:27 - CONCLUSION: Improvement when compared to 09/05/17 Murtaza Mckenzie MD FACR Objective Remarks HEAD, EYES, EARS, NOSE, THROAT: Normocephalic and atraumatic. Extraocular muscles intact. Conjunctivae are pink. Nonicteric sclerae. Oral mucosa within normal limits. NECK: The neck is supple. No jugular venous distention noted. CARDIOVASCULAR: Regular rate and rhythm. PULMONARY: equal chest rise. fio2 40%. ABDOMEN: The abdomen is soft, obese, nontender and no distention. EXTREMITIES: No clubbing. Edema noted and chronic venous stasis. NEUROLOGIC: Awake, alert, no focal deficits. A/P Assessment and Plan IMPRESSION: 61yM with diastolic CHF exacerbation, worsening acute hypoxic respiratory failure requiring intubation and mechanical ventilation. continues to worsen. no improvements. will continue forced diuresis. remains critically ill in multi-organ dysfunction. 1. Acute hypercapnic respiratory failure requiring mechanical ventilation 2. Acute on chronic kidney disease. 3. Obesity hypoventilation syndrome / obstructive sleep apnea. 4. COPD on two liters home oxygen. 5. Anemia secondary to chronic disease 6. Ethyl alcohol abuse. 7. Diastolic congestive heart failure exacerbation 8. Atrial fibrillation. 9. Chronic venous stasis dermatitis. 10.History of benign prostate hypertrophy. 11.Secondary hyperparathyroidism. 12.Mild hyponatremia overall improving. 13. Hyperglycemia. RECOMMENDATIONS: 1. Sedation with propofol, daily sedation vacation 2. Continue with thiamine, multivitamins and folic acid. 3. Ativan/Librium 5 call withdrawal. Monitor for signs of withdrawal. 4. Intubated and placed on mechanical ventilation, vent bundle, bronchodilators , IV Solu-Medrol initiated 5. Daily C Pap trials starting today. unlikely to be ready for extubation given rising BNP. 6. Barton cultures obtained and broaden antibiotics from Rocephin to Zosyn and Zyvox on 09/09 7. Monitor heart rate and blood pressure and maintain MAP greater than 65 mmHg. He is currently on Lopressor 25 milligrams q.8, Cardizem 240 daily, Digoxin 0.125 milligrams daily and Lasix 40 milligrams twice a day. Digoxin level 1.9 on September 05. 8. He had an echocardiogram in January which showed an ejection fraction of 65%. A repeat echocardiogram with echo 55% 9. Monitor renal function, intake and output and avoid nephrotoxins. 10. Continue forced diuresis. lasix, metolazone, diamox. 11. Continue with Protonix 40 milligrams daily for GI prophylaxis. 12. Tube feeds and advanced to goal as tolerated 13. Monitor CBC for signs of infection, which include fever and WBCs. 14. Chest x-ray showed pulmonary edema and the urinalysis showed moderate leukocyte esterase and 5 WBCs. Rocephin switched to Zosyn and linezolid on 09/08. F/u urine and sputum culture with gram-stain. 15. Sliding scale insulin with Accu-Chek for glycemic control. 16. Monitor CBC. Transfused 2 units of packed red blood cells. 17. GI prophylaxis with Protonix. 18. DVT prophylaxis with SCDs. on Xarelto 15 milligrams daily. Condition critical Time spent on critical care excluding procedures 41 minutes Reynaldo Germain MD Sep 10, 2017 10:01
[2017-09-10] MEDS: ATORVASTATIN 40 MG TAB PO SCH (23:51)
[2017-09-11] VITALS (40 sets, daily range): BP systolic 121–156; BP diastolic 63–88; PULSE 72–87; RESP 16–38; TEMP 97.6–98.2; O2SAT 91–100
[2017-09-11] MEDS: INSULIN ASPART SUPPLEMENTAL SCALE SQ SCH ×4 (02:00→20:00)
[2017-09-11] MEDS: LACTIC ACID (AMMONIUM LACTATE) 12% LOTION 225 GM BTL TOPICAL SCH ×3 (03:39→21:21)
[2017-09-11] MEDS: PROPOFOL 1000 MG/100 ML INJ 100 ML IV PRN ×4 (03:41→13:49)
[2017-09-11] MEDS: PIPERACIL-TAZO 4.5 GM PREMIX 100 ML IV SCH ×3 (06:45→18:17)
[2017-09-11] MEDS: METOPROLOL TARTRATE 25 MG TAB PO SCH ×3 (06:45→21:21)
[2017-09-11] MEDS: methylPREDNISolone SOD SUCC 40 MG/1 ML VIAL IV PUSH SCH ×3 (06:46→21:23)
[2017-09-11 07:00] LABS: HEMATOCRIT 25.1 % (39.0-51.0); HEMOGLOBIN 8.1 GM/DL (13.0-17.0); MEAN CELL VOLUME 90.1 FL (80.0-100.0); MEAN CORPUSCULAR HEMOGLOBIN 28.9 PG (27.0-34.0); MEAN CORPUSCULAR HGB CONC 32.1 % (32.0-36.0); MEAN PLATELET VOLUME 8.1 FL (7.0-11.0); PLATELET COUNT 274 TH/MM3 (150-450); RED BLOOD COUNT 2.79 MIL/MM3 (4.50-5.90); RED CELL DISTRIBUTION WIDTH 21.8 % (11.6-17.2); WHITE BLOOD COUNT 6.3 TH/MM3 (4.0-11.0)
[2017-09-11 07:28] LABS: BICARBONATE 37.3 MEQ/L (21.0-32.0); CALCIUM 8.8 MG/DL (8.5-10.1); CREATININE 1.71 MG/DL (0.60-1.30); PHOSPHORUS 6.3 MG/DL (2.5-4.9)
[2017-09-11] MEDS: DILTIAZEM-CD 240 MG CAP ER PO SCH (09:00)
[2017-09-11] MEDS: FLUTICASONE 100 MCG/VILANTEROL 25 MCG INHALER INH SCH (09:00)
[2017-09-11] MEDS: PANTOPRAZOLE SOD 40 MG DELAYED RELEASE TAB PO SCH (09:00)
[2017-09-11] MEDS: FUROSEMIDE 40 MG/4 ML VIAL IV PUSH SCH ×3 (09:00→16:40)
[2017-09-11] MEDS: guaiFENesin E.R. 600 MG TAB PO SCH (09:00)
[2017-09-11] MEDS: FERROUS SULFATE 325 MG (65 MG ELEMENTAL IRON) TAB PO SCH (09:00)
[2017-09-11] MEDS: TAMSULOSIN HCL 0.4 MG CAP PO SCH (09:00)
[2017-09-11] MEDS: METOLAZONE 2.5 MG TAB PO SCH (09:00)
[2017-09-11] MEDS: DIGOXIN 0.125 MG TAB PO SCH (09:39)
[2017-09-11] MEDS: FOLIC ACID 1 MG TAB PO SCH (09:39)
[2017-09-11] MEDS: THIAMINE HCL 100 MG TAB PO SCH (09:39)
[2017-09-11] MEDS: MULTIVITAMIN TAB PO SCH (09:39)
[2017-09-11] MEDS: RIVAROXABAN 15 MG TAB PO SCH (09:39)
[2017-09-11] MEDS: DOCUSATE SODIUM 50 MG/SENNA 8.6 MG TAB PO SCH ×2 (09:39→21:21)
[2017-09-11] MEDS: ASCORBIC ACID 500 MG TAB PO SCH (09:39)
[2017-09-11] MEDS: CHOLECALCIFEROL (VIT D3) 1000 UNIT TAB PO SCH (09:39)
[2017-09-11] MEDS: CHLORHEXIDINE 0.12% (ORAL KIT) 15 ML CUP MT SCH ×2 (09:40→20:00)
[2017-09-11] MEDS: LINEZOLID 600 MG PREMIX 300 ML IV SCH ×2 (09:40→21:21)
[2017-09-11] MEDS: DILTIAZEM HCL 60 MG TAB PO SCH ×3 (10:35→21:21)
--- NOTE | 2017-09-11 10:50 | HHI.CCPN ---
Subjective Remarks/Hospital Course 09/06: The patient is a 61 year old male with multiple comorbidities which include diastolic congestive heart failure, chronic atrial fibrillation on Xarelto, hypertension, hyperlipidemia, COPD, obstructive sleep apnea on 2 liters home oxygen. He was admitted to [facility] on September 04 under the hospitalist service for edema of the lower extremities and increasing dyspnea. On arrival, he had a hemoglobin of 7.0, which dropped to 6.6 this morning. The patient is scheduled to receive one unit of packed red blood cells. In addition, he was found to be in acute renal failure with a BUN 59, creatinine 2.88 and a potassium of 4.0. Chest x-ray on arrival showed subsegmental and basilar atelectasis. He had a repeat chest x-ray this morning which showed overall improvements. A HaliCAT was called for shortness of breath and he was subsequently placed on a BiPAP 08/18 with a 60% FIO2. The patient had an ABG at :28 this morning which showed acute on chronic hypercapnic respiratory acidosis with a pH of 7.31, CO2 of 62, pAO2 100, bicarb 31, sats of 94%. He was subsequently transferred to the intensive care unit on BiPAP and a repeat ABG was performed which showed worsening respiratory acidosis with a pH of 7.26, CO2 74, pAO2 123, bicarb 32, sats 95% on 08/18 with 55% FIO2. The patient is awake, alert. He had an echocardiogram back in January which showed normal left ventricular systolic function with an ejection fraction of 65%. 09/07: Awake and alert, on BiPAP with full facemask this morning. Wanted to eat at the time of my evaluation this morning. 09/08: Awake and alert, on nasal cannula. Not in any acute distress. 09/09: Patient developed worsening respiratory distress overnight and was on BiPAP. CO2 elevated on ABG done this morning. Patient was emergently intubated and placed on mechanical ventilation. Barton cultures obtained and antibiotic coverage broadened from Rocephin to Zosyn/Zyvox. Solu-Medrol started. 09/10: intubated yesterday for worsening hypoxemia. BNP elevated. Cr worsening, but still clinically appears volume overloaded. 09/11: remains intubated. following commands. Cr continues to worsen, despite clinically continuing to appear volume overloaded. hypoxia improving with diuresis. Objective Vital Signs Date Time Temp Pulse Resp B/P (MAP) Pulse Ox O2 Delivery O2 Flow Rate FiO2 09/11/17 08:31 99 40 09/11/17 06:00 75 09/11/17 04:00 98.2 18 156/77 (103) 09/09/17 04:30 Nasal Cannula 6.00 Intake and Output 09/11/17 09/11/17 09/11/17 07:59 15:59 23:59 Intake Total 737 ml Output Total 1000 ml Balance -263 ml Result Diagram: 09/11/17 0523 09/11/17 0523 Other Results Microbiology Date/Time Source Procedure Growth Status 09/09/17 07:30 Sputum Endotracheal Gram Stain - Final Complete 09/09/17 07:30 Sputum Endotracheal Sputum Culture - Final LIGHT GROWTH NORMAL RESPIRATORY ESTRELLITA Complete Imaging Last 48 hours Impressions Chest X-Ray 09/09/17 0000 Signed Impressions: Service Date/Time: Saturday, September 09, 2017 07:42 - CONCLUSION: Stable probable fluid overload Renny Hinojosa MD Chest X-Ray 09/08/17 0600 Signed Impressions: Service Date/Time: Friday, September 08, 2017 03:17 - CONCLUSION: Moderate CHF slightly worse. Deanna Alvarez MD Last Impressions Chest X-Ray 09/06/17 0000 Signed Impressions: Service Date/Time: Wednesday, September 06, 2017 08:27 - CONCLUSION: Improvement when compared to 09/05/17 Murtaza Mckenzie MD FACR Objective Remarks HEAD, EYES, EARS, NOSE, THROAT: Normocephalic and atraumatic. Extraocular muscles intact. Conjunctivae are pink. Nonicteric sclerae. Oral mucosa within normal limits. NECK: The neck is supple. No jugular venous distention noted. CARDIOVASCULAR: Regular rate and rhythm. PULMONARY: equal chest rise. fio2 40%. ABDOMEN: The abdomen is soft, obese, nontender and no distention. EXTREMITIES: No clubbing. Edema noted and chronic venous stasis. NEUROLOGIC: Awake, alert, no focal deficits. follows commands. A/P Assessment and Plan IMPRESSION: 61yM with diastolic CHF exacerbation, worsening acute hypoxic respiratory failure requiring intubation and mechanical ventilation. continue forced diuresis. will start SBTs: unlikely if we will be able to pursue extubation today, but will start daily trials. 1. Acute hypercapnic respiratory failure requiring mechanical ventilation 2. Acute on chronic kidney disease. 3. Obesity hypoventilation syndrome / obstructive sleep apnea. 4. COPD on two liters home oxygen. 5. Anemia secondary to chronic disease 6. Ethyl alcohol abuse. 7. Diastolic congestive heart failure exacerbation 8. Atrial fibrillation. 9. Chronic venous stasis dermatitis. 10.History of benign prostate hypertrophy. 11.Secondary hyperparathyroidism. 12.Mild hyponatremia overall improving. 13. Hyperglycemia. RECOMMENDATIONS: 1. Sedation with propofol, daily sedation vacation 2. Continue with thiamine, multivitamins and folic acid. 3. Ativan/Librium 5 call withdrawal. Monitor for signs of withdrawal. 4. Intubated and placed on mechanical ventilation, vent bundle, bronchodilators , IV Solu-Medrol initiated 5. Daily C Pap trials starting today. 6. Barton cultures obtained and broaden antibiotics from Rocephin to Zosyn and Zyvox on 09/09. cultures so far NGTD. 7. Monitor heart rate and blood pressure and maintain MAP greater than 65 mmHg. He is currently on Lopressor 25 milligrams q.8, Cardizem 60 q6h, Digoxin 0.125 milligrams daily and Lasix 40 milligrams twice a day. Digoxin level 1.9 on September 05. 8. He had an echocardiogram in January which showed an ejection fraction of 65%. A repeat echocardiogram with echo 55% 9. Monitor renal function, intake and output and avoid nephrotoxins. 10. Continue forced diuresis. lasix, metolazone, diamox. 11. Continue with Protonix 40 milligrams daily for GI prophylaxis. 12. Tube feeds and advanced to goal as tolerated 13. Monitor CBC for signs of infection, which include fever and WBCs. 14. Chest x-ray showed pulmonary edema and the urinalysis showed moderate leukocyte esterase and 5 WBCs. Rocephin switched to Zosyn and linezolid on 09/08. F/u urine and sputum culture with gram-stain. 15. Sliding scale insulin with Accu-Chek for glycemic control. 16. Monitor CBC. Transfused 2 units of packed red blood cells. 17. GI prophylaxis with Protonix. 18. DVT prophylaxis with SCDs. on Xarelto 15 milligrams daily. Reynaldo Germain MD Sep 11, 2017 10:50
[2017-09-11] MEDS ORDERED: POTASSIUM CHLOR 20 MEQ PREMIX 100 ML IV ONE (11:00)
[2017-09-11] MEDS ORDERED: POTASSIUM CHLORIDE 25 MEQ EFFERVESCENT TAB PO ONE (11:00)
--- NOTE | 2017-09-11 11:08 | HHI.NPPN ---
Subjective General Problems: Anemia, COPD, Edema, Heart Disease Renal Failure: Chronic, Acute, Stage III History of Present Illness 61-year-old male known to me from before with past medical history of ischemic heart disease, history of congestive heart failure, lymphedema of the legs, chronic kidney disease with recurrent acute kidney injury, multiple admissions for congestive heart multiple, admission for fluid overload status who came to the hospital with complaint of increased swelling of the legs and worsening shortness of breath. I was called to see the patient for the management of fluid and renal failure. Additional Remarks He is awake on ventilator. Plans for extubation today. Renal function is worse. (Tika Hartman) Review of Systems General Constitutional: Fatigue General Remarks unable to evaluate (Tika Hartman) Objective Data Data Vital Signs Date Time Temp Pulse Resp B/P (MAP) Pulse Ox O2 Delivery O2 Flow Rate FiO2 09/11/17 10:39 97 40 09/11/17 10:39 40 09/11/17 08:31 99 40 09/11/17 06:00 75 09/11/17 04:00 40 09/11/17 04:00 72 09/11/17 04:00 98.2 76 18 156/77 (103) 96 09/11/17 03:26 97 40 09/11/17 02:00 78 09/11/17 00:12 96 40 09/11/17 00:00 40 09/11/17 00:00 78 09/11/17 00:00 98.1 75 22 135/74 (94) 96 09/10/17 22:00 72 09/10/17 20:00 97.9 79 22 136/64 (88) 97 09/10/17 20:00 75 09/10/17 20:00 40 09/10/17 19:37 97 40 09/10/17 18:00 75 09/10/17 16:00 50 09/10/17 16:00 98.0 72 24 128/63 (84) 93 09/10/17 16:00 74 09/10/17 15:13 95 40 09/10/17 14:00 72 09/10/17 12:00 70 09/10/17 12:00 98.5 89 19 157/83 (107) 96 09/10/17 12:00 50 09/10/17 11:12 96 40 (Tika Hartman) -: 09/11/17 0523 09/11/17 0523 Imaging Last 72 hours Impressions Chest X-Ray 09/09/17 0000 Signed Impressions: Service Date/Time: Saturday, September 09, 2017 07:42 - CONCLUSION: Stable probable fluid overload Renny Hinojosa MD Tubes & Lines: [place] Drip Comment propofol. (Tika Hartman) Physical Exam General Appearance: Comfortable, Anxious, Obese (Tika Hartman) Eyes Eye Exam: Pupils Equal (Tika Hartman) Throat Throat Exam: Oral Mucosa [place] & Moist (Tika Hartman) Neck Neck Exam: Neck Supple (Tika Hartman) Pulmonary Resp Exam: Breath Sounds Equal, Crackles, Rhonchi, Sputum, Decreased Bases, Diminished Breath Sounds Resp Remarks vented lung sounds. (Tika Hartman) Cardiology CV Exam: Regular, Normal Sinus Rhythm (Tika Hartman) Gastrointestinal/Abdomen GI Exam: Soft, Non-Tender, Bowel Sounds Present, Bowel Sounds Hyperactive GI Remarks obese, soft (Tika Hartman) Musculoskeletal MS Exam: Normal Gait, Good Strength, Unable to Ambulate (Tika Hartman) Integumentary Skin Exam: Warm, Dry Skin Remarks chronic skin changes on bilateral lower extremities (Tika Hartman) Extremeties Extremities Exam: Moderate Edema, Pitting Edema, Dependent Edema (Tika Hartman) Neurologic Neuro Exam: Moving All Extremities, Unresponsive, Sedated (Tika Hartman) Assessment/Plan Assessment Summary: CORIN/Acute Renal Failure, Anemia of CKD, Fluid/Volume Overload, Hypertension, CKD Stage III Electrolyte Assessment: Hypokalemia Problem List: (1) Acute on chronic kidney failure ICD Codes: N17.9 - Acute kidney failure, unspecified; N18.9 - Chronic kidney disease, unspecified Plan: Creatinine is worse today. Baseline CKD 3. He may have suffered hypoperfusion injury, ATN, from hypotension that occured on 09/04 and again 09/07. He is non oliguric. Potassium replacement has been ordered. Restart Calcium acetate. Continue diuresis cautiously. He has fluid overload on exam and per chest xray. On Diamox, metolazone, and Lasix. He likely has chronic lymphedema, and excessive diuresis may result in azotemia Continue Flomax. Attempt meadows removal. Post void bladder scans if no urine output in 4 hrs. Repeat labs in AM. Follow fluid status. Avoid IVF administration. Avoid nephrotoxic agents. (2) Respiratory failure ICD Codes: J96.90 - Respiratory failure, unspecified, unspecified whether with hypoxia or hypercapnia Status: Acute Plan: Intubated. CPAP trial, currently on 30% FiO2. Possible extubation today. ON Zyvoxx and Zosyn for pneumonia. (3) Edema ICD Codes: R60.9 - Edema, unspecified Status: Chronic Plan: Monitor fluid status. On Lasix (increase to Q8h dosage), diamox, and metolazone. (4) Atrial fibrillation, chronic ICD Codes: I48.2 - Chronic atrial fibrillation Status: Chronic Plan: rate control measures. On PO cardizem. (5) COPD exacerbation ICD Codes: J44.1 - Chronic obstructive pulmonary disease with (acute) exacerbation Status: Acute Plan: Nebs, vent weening as tolerated. (6) Anemia ICD Codes: D64.9 - Anemia, unspecified Status: Acute Plan: Hemoglobin is low but stable. (Tika HartmanP) Problem List: (1) Acute on chronic kidney failure ICD Codes: N17.9 - Acute kidney failure, unspecified; N18.9 - Chronic kidney disease, unspecified Plan: Creatinine is worse today. Baseline CKD 3. He may have suffered hypoperfusion injury, ATN, from hypotension that occured on 09/04 and again 09/07. He is non oliguric. Potassium replacement has been ordered. Restart Calcium acetate. Continue diuresis cautiously. He has fluid overload on exam and per chest xray. On Diamox, metolazone, and Lasix. He likely has chronic lymphedema, and excessive diuresis may result in azotemia Continue Flomax. Attempt meadows removal. Post void bladder scans if no urine output in 4 hrs. Repeat labs in AM. Follow fluid status. Avoid IVF administration. Avoid nephrotoxic agents. (2) Respiratory failure ICD Codes: J96.90 - Respiratory failure, unspecified, unspecified whether with hypoxia or hypercapnia Status: Acute Plan: Intubated. CPAP trial, currently on 30% FiO2. Possible extubation today. ON Zyvoxx and Zosyn for pneumonia. (3) Edema ICD Codes: R60.9 - Edema, unspecified Status: Chronic Plan: Monitor fluid status. On Lasix (increase to Q8h dosage), diamox, and metolazone. (4) Atrial fibrillation, chronic ICD Codes: I48.2 - Chronic atrial fibrillation Status: Chronic Plan: rate control measures. On PO cardizem. (5) COPD exacerbation ICD Codes: J44.1 - Chronic obstructive pulmonary disease with (acute) exacerbation Status: Acute Plan: Nebs, vent weening as tolerated. (6) Anemia ICD Codes: D64.9 - Anemia, unspecified Status: Acute Plan: Hemoglobin is low but stable. Plan patient was seen and examined. Agree with above assessment and plan. He is on aggressive diuretic regimen. May develop contraction alkalosis. (Jian Matute MD) Problem Qualifiers (1) Edema: Qualified Codes: R60.9 - Edema, unspecified (2) Anemia: Qualified Codes: D64.9 - Anemia, unspecified Tika Hartman Sep 11, 2017 11:08 Jian Matute MD Sep 11, 2017 14:03
[2017-09-11] MEDS: CALCIUM ACETATE 667 MG CAP PO SCH ×2 (13:48→16:39)
[2017-09-11] MEDS: RESP: ALBUTEROL 2.5 MG/IPRATROPIUM 0.5 MG NEB (PRN) NEB (18:41)
[2017-09-11] MEDS: ATORVASTATIN 40 MG TAB PO SCH (21:21)
[2017-09-11] MEDS: SODIUM CHLORIDE 0.9% FLUSH 10 ML FLUSH IV FLUSH SCH (21:22)
[2017-09-11] MEDS: BUDESONIDE-FORMOTEROL 160/4.5 MCG INHALER INH SCH (21:22)
[2017-09-12] VITALS (20 sets, daily range): BP systolic 115–164; BP diastolic 59–93; PULSE 79–99; RESP 18–46; TEMP 97.6–98.7; O2SAT 67–100
[2017-09-12] MEDS: PIPERACIL-TAZO 4.5 GM PREMIX 100 ML IV SCH ×4 (00:08→22:08)
[2017-09-12] MEDS: INSULIN ASPART SUPPLEMENTAL SCALE SQ SCH ×4 (02:00→16:57)
[2017-09-12] MEDS: DILTIAZEM HCL 60 MG TAB PO SCH ×4 (03:11→22:47)
[2017-09-12 05:29] LABS: HEMATOCRIT 28.5 % (39.0-51.0); HEMOGLOBIN 8.8 GM/DL (13.0-17.0); MEAN CELL VOLUME 90.5 FL (80.0-100.0); MEAN CORPUSCULAR HGB CONC 30.9 % (32.0-36.0); MEAN PLATELET VOLUME 7.6 FL (7.0-11.0); PLATELET COUNT 311 TH/MM3 (150-450); RED BLOOD COUNT 3.15 MIL/MM3 (4.50-5.90); RED CELL DISTRIBUTION WIDTH 22.3 % (11.6-17.2); WHITE BLOOD COUNT 7.3 TH/MM3 (4.0-11.0)
[2017-09-12 05:43] LABS: BICARBONATE 36.3 MEQ/L (21.0-32.0); CALCIUM 8.8 MG/DL (8.5-10.1); CREATININE 1.99 MG/DL (0.60-1.30)
[2017-09-12] MEDS: METOPROLOL TARTRATE 25 MG TAB PO SCH ×3 (06:48→22:11)
[2017-09-12] MEDS: methylPREDNISolone SOD SUCC 40 MG/1 ML VIAL IV PUSH SCH ×3 (06:48→22:10)
[2017-09-12] MEDS: RESP: ALBUTEROL 2.5 MG/IPRATROPIUM 0.5 MG NEB (PRN) NEB (07:58)
[2017-09-12] MEDS: CHLORHEXIDINE 0.12% (ORAL KIT) 15 ML CUP MT SCH ×2 (08:00→20:00)
[2017-09-12] MEDS: METOLAZONE 2.5 MG TAB PO SCH (09:00)
[2017-09-12] MEDS: FUROSEMIDE 40 MG/4 ML VIAL IV PUSH SCH ×3 (09:00→16:57)
--- NOTE | 2017-09-12 09:12 | HHI.NPPN ---
Subjective General Problems: Anemia, COPD, Edema, Heart Disease Renal Failure: Chronic, Acute, Stage III History of Present Illness 61-year-old male known to me from before with past medical history of ischemic heart disease, history of congestive heart failure, lymphedema of the legs, chronic kidney disease with recurrent acute kidney injury, multiple admissions for congestive heart multiple, admission for fluid overload status who came to the hospital with complaint of increased swelling of the legs and worsening shortness of breath. I was called to see the patient for the management of fluid and renal failure. Additional Remarks Renal function is worse with aggressive diuresis. Review of Systems General Constitutional: Fatigue General Remarks unable to evaluate Objective Data Data 09/12/17 09/13/17 19:00 07:00 Intake Total 100 ml Balance 100 ml IV Total 100 ml Vital Signs Date Time Temp Pulse Resp B/P (MAP) Pulse Ox O2 Delivery O2 Flow Rate FiO2 09/12/17 08:00 96 Nasal Cannula 3.00 09/12/17 06:00 80 09/12/17 04:00 83 09/12/17 04:00 98.2 83 18 117/78 (91) 94 09/12/17 02:00 85 09/12/17 00:00 98.1 84 22 122/68 (86) 93 09/12/17 00:00 84 09/11/17 22:00 86 09/11/17 20:00 97.6 87 25 144/72 (96) 94 09/11/17 20:00 87 09/11/17 19:30 96 Nasal Cannula 3.00 09/11/17 18:44 96 Nasal Cannula 2.00 09/11/17 18:30 81 09/11/17 18:01 80 09/11/17 18:00 81 09/11/17 17:31 82 09/11/17 17:01 81 09/11/17 16:30 81 09/11/17 16:00 98.2 09/11/17 16:00 79 09/11/17 15:01 76 24 128/65 (86) 100 09/11/17 15:01 76 09/11/17 15:00 100 Nasal Cannula 4.00 09/11/17 14:47 98 Nasal Cannula 4 36 09/11/17 14:45 100 Nasal Cannula 4.00 09/11/17 14:31 79 16 121/63 (82) 91 09/11/17 14:31 79 09/11/17 14:01 82 09/11/17 14:01 82 27 134/68 (90) 98 09/11/17 14:00 81 09/11/17 14:00 81 27 98 09/11/17 13:31 79 24 136/69 (91) 96 09/11/17 13:31 79 09/11/17 13:00 80 09/11/17 13:00 80 25 137/72 (93) 98 09/11/17 12:31 82 09/11/17 12:31 82 38 135/78 (97) 98 09/11/17 12:01 82 35 140/86 (104) 100 09/11/17 12:01 82 09/11/17 12:00 81 37 100 09/11/17 12:00 40 09/11/17 12:00 81 09/11/17 11:31 79 23 142/75 (97) 98 09/11/17 11:31 79 09/11/17 11:01 78 09/11/17 11:01 78 24 147/77 (100) 98 09/11/17 10:39 97 40 09/11/17 10:39 40 09/11/17 10:31 74 09/11/17 10:31 74 26 144/88 (106) 99 09/11/17 10:01 74 09/11/17 10:01 74 24 155/72 (99) 97 09/11/17 10:00 72 24 97 09/11/17 10:00 72 09/11/17 09:30 72 09/11/17 09:30 72 24 151/78 (102) 98 -: 09/12/17 0451 09/12/17 0451 Tubes & Lines: [place] Drip Comment propofol. Physical Exam General Appearance: Comfortable, Anxious, Obese Eyes Eye Exam: Pupils Equal Throat Throat Exam: Oral Mucosa [place] & Moist Neck Neck Exam: Neck Supple Pulmonary Resp Exam: Breath Sounds Equal, Crackles, Rhonchi, Sputum, Decreased Bases, Diminished Breath Sounds Cardiology CV Exam: Regular, Normal Sinus Rhythm Gastrointestinal/Abdomen GI Exam: Soft, Non-Tender, Bowel Sounds Present, Bowel Sounds Hyperactive Musculoskeletal MS Exam: Normal Gait, Good Strength, Unable to Ambulate Integumentary Skin Exam: Warm, Dry Extremeties Extremities Exam: Moderate Edema, Pitting Edema, Dependent Edema Neurologic Neuro Exam: Moving All Extremities, Unresponsive, Sedated Assessment/Plan Assessment Summary: CORIN/Acute Renal Failure, Anemia of CKD, Fluid/Volume Overload, Hypertension, CKD Stage III Electrolyte Assessment: Hypokalemia Problem List: (1) Acute on chronic kidney failure ICD Codes: N17.9 - Acute kidney failure, unspecified; N18.9 - Chronic kidney disease, unspecified Plan: Creatinine is worse today. Baseline CKD 3. On aggressive diuretic regimen. He may have suffered hypoperfusion injury, ATN, from hypotension that occured on 09/04 and again 09/07. He is non oliguric. Replace potassium as needed. Restarted Calcium acetate. Monitor phosphorus. (2) Respiratory failure ICD Codes: J96.90 - Respiratory failure, unspecified, unspecified whether with hypoxia or hypercapnia Status: Acute (3) Edema ICD Codes: R60.9 - Edema, unspecified Status: Chronic Plan: Monitor fluid status. On Lasix (increase to Q8h dosage), diamox, and metolazone. (4) Atrial fibrillation, chronic ICD Codes: I48.2 - Chronic atrial fibrillation Status: Chronic Plan: rate control measures. On PO cardizem. (5) COPD exacerbation ICD Codes: J44.1 - Chronic obstructive pulmonary disease with (acute) exacerbation Status: Acute (6) Anemia ICD Codes: D64.9 - Anemia, unspecified Status: Acute Plan: Hemoglobin is low but stable. Problem Qualifiers (1) Edema: Qualified Codes: R60.9 - Edema, unspecified (2) Anemia: Qualified Codes: D64.9 - Anemia, unspecified Jian Matute MD Sep 12, 2017 09:12
[2017-09-12] MEDS: BUDESONIDE-FORMOTEROL 160/4.5 MCG INHALER INH SCH ×2 (10:09→22:09)
[2017-09-12] MEDS: LINEZOLID 600 MG PREMIX 300 ML IV SCH ×2 (10:11→22:08)
[2017-09-12] MEDS: FAMOTIDINE 20 MG TAB NG SCH (10:14)
[2017-09-12] MEDS: DIGOXIN 0.125 MG TAB PO SCH (10:14)
[2017-09-12] MEDS: MULTIVITAMIN TAB PO SCH (10:14)
[2017-09-12] MEDS: TAMSULOSIN HCL 0.4 MG CAP PO SCH (10:14)
[2017-09-12] MEDS: FOLIC ACID 1 MG TAB PO SCH (10:14)
[2017-09-12] MEDS: ASCORBIC ACID 500 MG TAB PO SCH (10:15)
[2017-09-12] MEDS: RIVAROXABAN 15 MG TAB PO SCH (10:15)
[2017-09-12] MEDS: CHOLECALCIFEROL (VIT D3) 1000 UNIT TAB PO SCH (10:15)
[2017-09-12] MEDS: CALCIUM ACETATE 667 MG CAP PO SCH ×3 (10:15→16:56)
[2017-09-12] MEDS: LACTIC ACID (AMMONIUM LACTATE) 12% LOTION 225 GM BTL TOPICAL SCH ×2 (10:16→21:00)
[2017-09-12] MEDS: SODIUM CHLORIDE 0.9% FLUSH 10 ML FLUSH IV FLUSH SCH ×2 (10:19→22:10)
[2017-09-12] MEDS: DOCUSATE SODIUM 50 MG/SENNA 8.6 MG TAB PO SCH ×2 (10:19→22:09)
[2017-09-12] MEDS: THIAMINE HCL 100 MG TAB PO SCH (10:19)
--- NOTE | 2017-09-12 11:22 | HHI.CCPN ---
Subjective Remarks/Hospital Course 09/06: The patient is a 61 year old male with multiple comorbidities which include diastolic congestive heart failure, chronic atrial fibrillation on Xarelto, hypertension, hyperlipidemia, COPD, obstructive sleep apnea on 2 liters home oxygen. He was admitted to [facility] on September 04 under the hospitalist service for edema of the lower extremities and increasing dyspnea. On arrival, he had a hemoglobin of 7.0, which dropped to 6.6 this morning. The patient is scheduled to receive one unit of packed red blood cells. In addition, he was found to be in acute renal failure with a BUN 59, creatinine 2.88 and a potassium of 4.0. Chest x-ray on arrival showed subsegmental and basilar atelectasis. He had a repeat chest x-ray this morning which showed overall improvements. A HaliCAT was called for shortness of breath and he was subsequently placed on a BiPAP 08/18 with a 60% FIO2. The patient had an ABG at :28 this morning which showed acute on chronic hypercapnic respiratory acidosis with a pH of 7.31, CO2 of 62, pAO2 100, bicarb 31, sats of 94%. He was subsequently transferred to the intensive care unit on BiPAP and a repeat ABG was performed which showed worsening respiratory acidosis with a pH of 7.26, CO2 74, pAO2 123, bicarb 32, sats 95% on 08/18 with 55% FIO2. The patient is awake, alert. He had an echocardiogram back in January which showed normal left ventricular systolic function with an ejection fraction of 65%. 09/07: Awake and alert, on BiPAP with full facemask this morning. Wanted to eat at the time of my evaluation this morning. 09/08: Awake and alert, on nasal cannula. Not in any acute distress. 09/09: Patient developed worsening respiratory distress overnight and was on BiPAP. CO2 elevated on ABG done this morning. Patient was emergently intubated and placed on mechanical ventilation. Barton cultures obtained and antibiotic coverage broadened from Rocephin to Zosyn/Zyvox. Solu-Medrol started. 09/10: intubated yesterday for worsening hypoxemia. BNP elevated. Cr worsening, but still clinically appears volume overloaded. 09/11: remains intubated. following commands. Cr continues to worsen, despite clinically continuing to appear volume overloaded. hypoxia improving with diuresis. 09/12: Extubated yesterday, tolerating nasal cannula well. Wishes to go home. Follows commands appropriately. Denies any shortness of breath currently. Objective Vital Signs Date Time Temp Pulse Resp B/P (MAP) Pulse Ox O2 Delivery O2 Flow Rate FiO2 09/12/17 08:00 96 Nasal Cannula 3.00 09/12/17 06:00 80 09/12/17 04:00 98.2 18 117/78 (91) 09/11/17 14:47 36 Intake and Output 09/12/17 09/12/17 09/13/17 08:00 16:00 00:00 Intake Total 200 ml Output Total 675 ml Balance -475 ml Result Diagram: 09/12/17 0451 09/12/17 0451 Other Results Laboratory Tests Test 09/11/17 12:05 Blood Gas Puncture Site RT RADIAL Blood Gas Patient Temperature 98.6 Blood Gas HCO3 37 mmol/L (22-26) Blood Gas Base Excess 11.3 mmol/L (-2-2) Blood Gas Oxygen Saturation 96 % (90-100) Arterial Blood pH 7.40 (7.380-7.420) Arterial Blood Partial Pressure CO2 60 mmHg (38-42) Arterial Blood Partial Pressure O2 130 mmHg (61-120) Arterial Blood Oxygen Content 11.6 Vol % (12.0-20.0) Arterial Blood Carboxyhemoglobin 1.7 % (0-4) Arterial Blood Methemoglobin 1.0 % (0-2) Blood Gas Hemoglobin 8.4 G/DL (12.0-16.0) Oxygen Delivery Device VENTILATOR Blood Gas Ventilator Setting BIPAP 5/10PS Blood Gas Inspired Oxygen 40 % Imaging Last 48 hours Impressions Chest X-Ray 09/09/17 0000 Signed Impressions: Service Date/Time: Saturday, September 09, 2017 07:42 - CONCLUSION: Stable probable fluid overload Renny Hinojosa MD Chest X-Ray 09/08/17 0600 Signed Impressions: Service Date/Time: Friday, September 08, 2017 03:17 - CONCLUSION: Moderate CHF slightly worse. Deanna Alvarez MD Last Impressions Chest X-Ray 09/06/17 0000 Signed Impressions: Service Date/Time: Wednesday, September 06, 2017 08:27 - CONCLUSION: Improvement when compared to 09/05/17 Murtaza Mckenzie MD FACR Objective Remarks HEAD, EYES, EARS, NOSE, THROAT: Normocephalic and atraumatic. Extraocular muscles intact. Conjunctivae are pink. Nonicteric sclerae. Oral mucosa within normal limits. NECK: The neck is supple. No jugular venous distention noted. CARDIOVASCULAR: Regular rate and rhythm. PULMONARY: Good air entry bilaterally, scattered rhonchi, no wheezing ABDOMEN: The abdomen is soft, obese, nontender and no distention. EXTREMITIES: No clubbing. Edema noted and chronic venous stasis. NEUROLOGIC: Awake, alert, no focal deficits. follows commands. A/P Assessment and Plan IMPRESSION: 61yM with diastolic CHF exacerbation, worsening acute hypoxic respiratory failure requiring intubation and mechanical ventilation. continue forced diuresis. will start SBTs: unlikely if we will be able to pursue extubation today, but will start daily trials. 1. Acute hypercapnic respiratory failure requiring mechanical ventilation 2. Acute on chronic kidney disease. 3. Obesity hypoventilation syndrome / obstructive sleep apnea. 4. COPD on two liters home oxygen. 5. Anemia secondary to chronic disease 6. Ethyl alcohol abuse. 7. Diastolic congestive heart failure exacerbation 8. Atrial fibrillation. 9. Chronic venous stasis dermatitis. 10.History of benign prostate hypertrophy. 11.Secondary hyperparathyroidism. 12.Mild hyponatremia overall improving. 13. Hyperglycemia. RECOMMENDATIONS: 1. Neuro status, off all sedative drips 2. Continue with thiamine, multivitamins and folic acid. 3. Ativan/Librium for alcohol withdrawal. Monitor for signs of withdrawal. 4. Extubated on 09/11 to nasal cannula, bronchodilators, IV Solu-Medrol 5. Consult pulmonary to follow up for acute on chronic respiratory failure 6. Barton cultures obtained and broaden antibiotics from Rocephin to Zosyn and Zyvox on 09/09. cultures so far NGTD. 7. Monitor heart rate and blood pressure and maintain MAP greater than 65 mmHg. He is currently on Lopressor 25 milligrams q.8, Cardizem 60 q6h, Digoxin 0.125 milligrams daily and Lasix 40 milligrams twice a day. Digoxin level 1.9 on September 05. 8. He had an echocardiogram in January which showed an ejection fraction of 65%. A repeat echocardiogram with echo 55% 9. Monitor renal function, intake and output and avoid nephrotoxins. 10. Continue forced diuresis. lasix, metolazone, diamox. 11. Continue with Protonix 40 milligrams daily for GI prophylaxis. 12. Advance by mouth diet 13. Monitor CBC for signs of infection, which include fever and WBCs. 14. Chest x-ray showed pulmonary edema and the urinalysis showed moderate leukocyte esterase and 5 WBCs. Rocephin switched to Zosyn and linezolid on 09/08. F/u urine and sputum culture with gram-stain. 15. Sliding scale insulin with Accu-Chek for glycemic control. 16. Monitor CBC. Transfused 2 units of packed red blood cells. 17. GI prophylaxis with Protonix. 18. DVT prophylaxis with SCDs. on Xarelto 15 milligrams daily. Patient will be transferred out of ICU. Consult and transfer to hospitalist service for further medical management. Pulmonary consult requested to assist with managing respiratory failure. Critical care will be signing off, please reconsult if needed. Albert Marshall MD Sep 12, 2017 11:22
[2017-09-12] MEDS: FLUTICASONE 100 MCG/VILANTEROL 25 MCG INHALER INH SCH (12:37)
[2017-09-12] MEDS: RESP: ALBUTEROL 2.5 MG/IPRATROPIUM 0.5 MG NEB (SCH) NEB ×2 (15:06→20:23)
--- NOTE | 2017-09-12 15:26 | MB ---
cc: Long GREY M.D. DATE OF CONSULTATION: 09/12/2017. REASON FOR CONSULTATION: Respiratory failure and pulmonary edema. HISTORY OF PRESENT ILLNESS: This is a 60-year-old white male previously known to me with a longstanding history of severe COPD, history of congestive heart failure and atrial fibrillation and chronic kidney disease who was admitted with progressive shortness of breath and leg edema. The patient has been on home oxygen at 2 liters but noticed increasing leg edema and orthopnea and was quite short of breath and upon admission had a chest x-ray which showed evidence of pulmonary edema. He was placed in the intensive care unit on BiPAP and blood gases did demonstrate hypercapnia. Over the next three days, his condition improved with IV steroids, antibiotics and diuretics. The patient is presently feeling better. He is back on a nasal cannula at 4 liters and his leg swelling is down. He denies chest pains or abdominal pains. Denies nausea, vomiting or aspiration. PAST MEDICAL HISTORY: Past history includes: 1. History of COPD. 2. Emphysema. 3. History of hypertension. 4. Hyperlipidemia. 5. Chronic atrial fibrillation. PAST SURGICAL HISTORY: 1. Appendectomy. 2. Surgery on his forearm on the right. ALLERGIES: NO KNOWN DRUG ALLERGIES / NONE WERE LISTED. FAMILY HISTORY: Family history is significant for heart disease and diabetes. HABITS: The patient does not smoke. He drinks alcohol daily, mostly beer. MEDICATIONS: 1. Lasix. 2. Symbicort. 3. Lipitor. 4. DuoNeb nebs. 5. Lopressor. 6. Cardizem. 7. Digoxin. REVIEW OF SYSTEMS: The patient is overweight. He has sleep apnea. He has epigastric distress and reflux. He has urinary frequency. He has leg swelling and trouble ambulating. Other system review is as in the present complaint. PHYSICAL EXAMINATION: GENERAL: This is an obese middle-aged white male who is alert and pale and face was flushed. VITAL SIGNS: His blood pressure is 130/80, pulse 85, respirations 20, temperature is 97.5. HEAD, EYES, EARS, NOSE, THROAT: Head normocephalic. The pupils are reactive. The sclerae are clear. Tongue was moist. Throat is injected. NECK: The neck is supple. No bruits. There is mild venous distention while sitting upright. No thyroid enlargement. CHEST: Decreased breath sounds at the bases with occasional bibasilar crackles. HEART: The heart sounds are irregular. S1-S2 with no murmur. ABDOMEN: Abdomen obese and protuberant without masses. No organomegaly or tenderness. The bowel sounds are active. EXTREMITIES: Edema 2+. Excoriated skin and lymphedema of both lower extremities. Decreased peripheral pulses. Reflexes are 1+. The patient does move all his extremities well. NEUROLOGIC: No gross motor deficits. Cranial nerves are grossly intact. IMPRESSION: 1. Hypercapnic respiratory failure, resolving. 2. Pulmonary edema and diastolic heart failure. 3. Chronic lymphedema with stasis dermatitis. 4. History of anemia. 5. Hyponatremia. 6. Atrial fibrillation and arteriosclerotic heart disease. 7. Obstructive sleep apnea syndrome. PLAN: 1. The patient will be maintained on nebulized DuoNeb solution four times a day. 2. 02 nasal cannula at 3 to 4 liters to keep saturations over 90. 3. BiPAP to be used at night for sleep apnea. 4. Continue Solu-Medrol 40 milligrams every 8 hours IV and Lasix 40 milligrams twice a day. 5. The patient could be transferred to the telemetry unit. 6. We will get a follow up chest x-ray in the a.m. and blood gas studies as well. 7. Anticoagulation will be continued including Xarelto 15 milligrams daily. 8. Symbicort continued at 160 x 4.5 micrograms two puffs twice a day. Thank you Dr. Marshall for this consultation. MD JOHN Michel/BRIAN /12:47 PM /2:52 PM
[2017-09-12] MEDS: ATORVASTATIN 40 MG TAB PO SCH (22:09)
[2017-09-13] VITALS (22 sets, daily range): BP systolic 106–119; BP diastolic 65–75; PULSE 83–103; RESP 18–20; TEMP 97.6–98.3; O2SAT 92–98
[2017-09-13] MEDS: PIPERACIL-TAZO 4.5 GM PREMIX 100 ML IV SCH ×4 (01:35→22:53)
[2017-09-13] MEDS: INSULIN ASPART SUPPLEMENTAL SCALE SQ SCH ×5 (02:00→21:00)
--- NOTE | 2017-09-13 04:09 | RADRPT ---
EXAM DATE/TIME: 09/13/2017 03:37 [facility] COMPARISON: CHEST SINGLE AP, September 09, 2017, 7:42. INDICATIONS : Shortness of breath, possible pulmonary disease. MEDICAL HISTORY : Chronic obstructive pulmonary disease. Hypercholesterolemia. Myocardial infarction. SURGICAL HISTORY : Cardiac ablation ENCOUNTER: Subsequent ACUITY: 3 weeks PAIN SCORE: 0/10 LOCATION: Bilateral chest FINDINGS: Bilateral parenchymal consolidation again noted, modestly worse on the right and slightly improved on the left. Small, bilateral pleural effusions are again noted without significant change. No pneumoth orax seen. Patient has been extubated. Nasogastric tube also well. CONCLUSION: Bilateral parenchymal opacities slightly worse on the right and slightly improved on the left. Small bilateral pleural effusions not significantly changed. Endotracheal tube and nasogastric tube out. Renny Smith MD on September 13, 2017 at 4:06 Board Certified Radiologist. This report was verified electronically.
[2017-09-13] MEDS: DILTIAZEM HCL 60 MG TAB PO SCH ×4 (04:15→22:55)
[2017-09-13] MEDS: METOPROLOL TARTRATE 25 MG TAB PO SCH ×3 (06:37→22:55)
[2017-09-13] MEDS: methylPREDNISolone SOD SUCC 40 MG/1 ML VIAL IV PUSH SCH ×3 (06:37→22:54)
[2017-09-13 06:53] LABS: HEMATOCRIT 26.9 % (39.0-51.0); HEMOGLOBIN 8.6 GM/DL (13.0-17.0); MEAN CELL VOLUME 90.1 FL (80.0-100.0); MEAN CORPUSCULAR HEMOGLOBIN 28.7 PG (27.0-34.0); MEAN CORPUSCULAR HGB CONC 31.8 % (32.0-36.0); MEAN PLATELET VOLUME 7.9 FL (7.0-11.0); PLATELET COUNT 324 TH/MM3 (150-450); RED BLOOD COUNT 2.98 MIL/MM3 (4.50-5.90); RED CELL DISTRIBUTION WIDTH 21.4 % (11.6-17.2); WHITE BLOOD COUNT 6.3 TH/MM3 (4.0-11.0)
[2017-09-13 07:04] LABS: BICARBONATE 35.9 MEQ/L (21.0-32.0); CALCIUM 9.1 MG/DL (8.5-10.1); CREATININE 1.96 MG/DL (0.60-1.30)
[2017-09-13] MEDS: LINEZOLID 600 MG PREMIX 300 ML IV SCH (08:39)
[2017-09-13] MEDS: SODIUM CHLORIDE 0.9% FLUSH 10 ML FLUSH IV FLUSH SCH ×2 (08:44→22:54)
[2017-09-13] MEDS: ASCORBIC ACID 500 MG TAB PO SCH (08:46)
[2017-09-13] MEDS: CHOLECALCIFEROL (VIT D3) 1000 UNIT TAB PO SCH (08:46)
[2017-09-13] MEDS: FOLIC ACID 1 MG TAB PO SCH (08:46)
[2017-09-13] MEDS: MULTIVITAMIN TAB PO SCH (08:46)
[2017-09-13] MEDS: CALCIUM ACETATE 667 MG CAP PO SCH ×3 (08:46→18:00)
[2017-09-13] MEDS: THIAMINE HCL 100 MG TAB PO SCH (08:46)
[2017-09-13] MEDS: DOCUSATE SODIUM 50 MG/SENNA 8.6 MG TAB PO SCH ×2 (08:46→22:55)
[2017-09-13] MEDS: RIVAROXABAN 15 MG TAB PO SCH (08:47)
[2017-09-13] MEDS: METOLAZONE 2.5 MG TAB PO SCH (08:47)
[2017-09-13] MEDS: FAMOTIDINE 20 MG TAB NG SCH (08:48)
[2017-09-13] MEDS: FUROSEMIDE 40 MG/4 ML VIAL IV PUSH SCH ×3 (08:48→18:00)
[2017-09-13] MEDS: DIGOXIN 0.125 MG TAB PO SCH (08:48)
[2017-09-13] MEDS: TAMSULOSIN HCL 0.4 MG CAP PO SCH (08:48)
[2017-09-13] MEDS: FLUTICASONE 100 MCG/VILANTEROL 25 MCG INHALER INH SCH (08:49)
[2017-09-13] MEDS: BUDESONIDE-FORMOTEROL 160/4.5 MCG INHALER INH SCH ×2 (08:49→22:54)
[2017-09-13] MEDS: LACTIC ACID (AMMONIUM LACTATE) 12% LOTION 225 GM BTL TOPICAL SCH ×2 (08:50→22:58)
[2017-09-13] MEDS: CHLORHEXIDINE 0.12% (ORAL KIT) 15 ML CUP MT SCH ×2 (09:00→20:00)
--- NOTE | 2017-09-13 09:18 | HHI.NPPN ---
Subjective General Problems: Anemia, COPD, Edema, Heart Disease Renal Failure: Chronic, Acute, Stage III History of Present Illness 61-year-old male known to me from before with past medical history of ischemic heart disease, history of congestive heart failure, lymphedema of the legs, chronic kidney disease with recurrent acute kidney injury, multiple admissions for congestive heart multiple, admission for fluid overload status who came to the hospital with complaint of increased swelling of the legs and worsening shortness of breath. I was called to see the patient for the management of fluid and renal failure. Additional Remarks He has been transferred out of [facility]. Renal function is stable, however, BUN is higher. Review of Systems General Constitutional: Fatigue General Remarks unable to evaluate Objective Data Data Vital Signs Date Time Temp Pulse Resp B/P (MAP) Pulse Ox O2 Delivery O2 Flow Rate FiO2 09/13/17 05:52 97.6 90 20 115/75 (88) 96 09/13/17 04:00 83 09/13/17 00:54 97.6 98 20 115/73 (87) 98 09/13/17 00:00 94 09/12/17 23:00 97 09/12/17 22:00 96 09/12/17 21:00 94 09/12/17 20:28 94 Nasal Cannula 2.00 09/12/17 20:00 97.6 99 20 142/70 (94) 95 09/12/17 20:00 92 09/12/17 18:42 99 20 142/70 (94) 95 09/12/17 16:53 90 09/12/17 16:53 90 46 129/87 (101) 78 09/12/17 16:00 86 09/12/17 16:00 86 24 84 09/12/17 14:00 79 09/12/17 14:00 79 31 96 09/12/17 12:00 91 09/12/17 12:00 98.7 91 30 09/12/17 11:07 90 09/12/17 11:07 90 37 139/59 (85) 95 09/12/17 10:00 86 25 89 09/12/17 10:00 86 -: 09/13/17 0550 09/13/17 0550 Tubes & Lines: [place] Drip Comment propofol. Physical Exam General Appearance: Comfortable, Anxious, Obese Eyes Eye Exam: Pupils Equal Throat Throat Exam: Oral Mucosa [place] & Moist Neck Neck Exam: Neck Supple Pulmonary Resp Exam: Breath Sounds Equal, Crackles, Rhonchi, Sputum, Decreased Bases, Diminished Breath Sounds Cardiology CV Exam: Regular, Normal Sinus Rhythm Gastrointestinal/Abdomen GI Exam: Soft, Non-Tender, Bowel Sounds Present, Bowel Sounds Hyperactive Musculoskeletal MS Exam: Normal Gait, Good Strength, Unable to Ambulate Integumentary Skin Exam: Warm, Dry Extremeties Extremities Exam: Moderate Edema, Pitting Edema, Dependent Edema Neurologic Neuro Exam: Moving All Extremities, Unresponsive, Sedated Assessment/Plan Assessment Summary: CORIN/Acute Renal Failure, Anemia of CKD, Fluid/Volume Overload, Hypertension, CKD Stage III Electrolyte Assessment: Hypokalemia Problem List: (1) Acute on chronic kidney failure ICD Codes: N17.9 - Acute kidney failure, unspecified; N18.9 - Chronic kidney disease, unspecified Plan: Renal function is about the same as yesterday. I will stop Metolazone. Continue Lasix. He is non oliguric. Replace potassium as needed. Restarted Calcium acetate. Monitor phosphorus. (2) Respiratory failure ICD Codes: J96.90 - Respiratory failure, unspecified, unspecified whether with hypoxia or hypercapnia Status: Acute Plan: improved. Likely has DENIS. Needs outpatient sleep study. (3) Edema ICD Codes: R60.9 - Edema, unspecified Status: Chronic Plan: Monitor fluid status. On Lasix. Diamox stopped. Metolazone to be stopped today. (4) Atrial fibrillation, chronic ICD Codes: I48.2 - Chronic atrial fibrillation Status: Chronic Plan: rate control measures. On PO cardizem. (5) COPD exacerbation ICD Codes: J44.1 - Chronic obstructive pulmonary disease with (acute) exacerbation Status: Acute (6) Anemia ICD Codes: D64.9 - Anemia, unspecified Status: Acute Plan: Hemoglobin is low but stable. Problem Qualifiers (1) Edema: Qualified Codes: R60.9 - Edema, unspecified (2) Anemia: Qualified Codes: D64.9 - Anemia, unspecified Jian Matute MD Sep 13, 2017 09:18
[2017-09-13] MEDS: RESP: ALBUTEROL 2.5 MG/IPRATROPIUM 0.5 MG NEB (SCH) NEB ×4 (09:21→20:30)
--- NOTE | 2017-09-13 16:14 | HHI.PR ---
Subjective Remarks Pt is happy to be improving and was transferred out of the ICU yesterday. He admits he is more short of breath than his baseline. He has honest insight and admits that his hospitalizations are correlated to drinking too much alcohol. Objective Vitals Vital Signs Date Time Temp Pulse Resp B/P (MAP) Pulse Ox O2 Delivery O2 Flow Rate FiO2 09/13/17 12:00 89 20 113/65 (81) 92 09/13/17 12:00 92 09/13/17 09:26 95 Nasal Cannula 2.00 09/13/17 09:00 90 09/13/17 08:00 98.3 84 20 115/69 (84) 97 09/13/17 08:00 85 09/13/17 07:00 83 09/13/17 05:52 97.6 90 20 115/75 (88) 96 09/13/17 04:00 83 09/13/17 00:54 97.6 98 20 115/73 (87) 98 09/13/17 00:00 94 09/12/17 23:00 97 09/12/17 22:00 96 09/12/17 21:00 94 09/12/17 20:28 94 Nasal Cannula 2.00 09/12/17 20:00 97.6 99 20 142/70 (94) 95 09/12/17 20:00 92 09/12/17 18:42 99 20 142/70 (94) 95 09/12/17 16:53 90 09/12/17 16:53 90 46 129/87 (101) 78 I/O 09/12/17 09/12/17 09/12/17 09/13/17 09/13/17 09/13/17 07:00 15:00 23:00 07:00 15:00 23:00 Intake Total 100 ml 100 ml 820 ml 240 ml Output Total 675 ml 2300 ml 750 ml Balance -575 ml 100 ml -1480 ml -510 ml Intake Oral 820 ml 240 ml IV Total 100 ml 100 ml Output Urine Total 675 ml 2300 ml 750 ml # Voids 2 # Bowel Movements 1 2 0 Result Diagram: 09/13/17 0550 09/13/17 0550 Objective Remarks GENERAL: Obese patient in poor health SKIN: Warm and dry, lymphedematous changes to bilateral LE's HEAD: Normocephalic. EYES: No scleral icterus. No injection or drainage. NECK: Supple, trachea midline. No JVD or lymphadenopathy. CARDIOVASCULAR: Regular rate and rhythm without murmurs, gallops, or rubs. RESPIRATORY: Breath sounds diminished with weak effort, no crackles or wheezes. No accessory muscle use. GASTROINTESTINAL: Abdomen obese, nontender MUSCULOSKELETAL: No cyanosis, or edema. EXTREMITIES: Chronic edematous changes (lymphedema) A/P Problem List: (1) CHF (congestive heart failure) ICD Code: I50.9 - Heart failure, unspecified Status: Chronic (2) A-fib ICD Code: I48.91 - Unspecified atrial fibrillation Status: Chronic (3) Hyponatremia ICD Code: E87.1 - Hypo-osmolality and hyponatremia Status: Acute (4) Acute on chronic kidney failure ICD Code: N17.9 - Acute kidney failure, unspecified; N18.9 - Chronic kidney disease, unspecified (5) Anemia ICD Code: D64.9 - Anemia, unspecified Status: Acute Assessment and Plan CHF Exacerbation Continue Lasix, Metolazone stopped per nephrology Still evidence of excess fluid in CXR and lower extremities He is on 2 L of oxygen via nasal canula at home Atrial Fibrillation Stable, continue Lopressor, Cardizem, Digoxin Pt admits to drinking excess alcohol, 6-8 drinks per day, which may correlate with these periodic hospitalizations for decompensation Type 2 Diabetes Sliding scale coverage with accuchecks COPD No sign of wheezing, but will monitor for changes Sleep Apnea BiPap at night Sepsis? He is new to me, so I will continue Zosyn and Linezolid until trend and hospital course reviewed further. DVT Prophylaxis Xarelto Problem Qualifiers (1) Anemia: Qualified Codes: D64.9 - Anemia, unspecified Bola Conteh MD Sep 13, 2017 16:14
--- NOTE | 2017-09-13 17:12 | HHI.PR ---
Subjective Remarks Awake and breathing better. Still has Leg edema. Used Bipap at HS. Good output with lasix. Objective Vital Signs Date Time Temp Pulse Resp B/P (MAP) Pulse Ox O2 Delivery O2 Flow Rate FiO2 09/13/17 16:00 103 09/13/17 15:00 89 09/13/17 14:00 90 09/13/17 13:00 90 09/13/17 12:00 89 20 113/65 (81) 92 09/13/17 12:00 92 09/13/17 09:26 95 Nasal Cannula 2.00 09/13/17 09:00 90 09/13/17 08:00 98.3 84 20 115/69 (84) 97 09/13/17 08:00 85 09/13/17 07:00 83 09/13/17 05:52 97.6 90 20 115/75 (88) 96 09/13/17 04:00 83 09/13/17 00:54 97.6 98 20 115/73 (87) 98 09/13/17 00:00 94 09/12/17 23:00 97 09/12/17 22:00 96 09/12/17 21:00 94 09/12/17 20:28 94 Nasal Cannula 2.00 09/12/17 20:00 97.6 99 20 142/70 (94) 95 09/12/17 20:00 92 09/12/17 18:42 99 20 142/70 (94) 95 I/O 09/12/17 09/12/17 09/12/17 09/13/17 09/13/17 09/13/17 07:00 15:00 23:00 07:00 15:00 23:00 Intake Total 100 ml 100 ml 820 ml 240 ml Output Total 675 ml 2300 ml 750 ml Balance -575 ml 100 ml -1480 ml -510 ml Intake Oral 820 ml 240 ml IV Total 100 ml 100 ml Output Urine Total 675 ml 2300 ml 750 ml # Voids 2 # Bowel Movements 1 2 0 Result Diagram: 09/13/17 0550 09/13/17 0550 Objective Remarks GENERAL: This is an obese middle-aged white male who is alert and pale and face flushed. HEAD, EYES, EARS, NOSE, THROAT: Head normocephalic. The pupils are reactive. The sclerae are clear. Tongue was moist. Throat is clear NECK: The neck is supple. No bruits. There is mild venous distention while sitting upright. No thyroid enlargement. CHEST: Decreased breath sounds at the bases with occasional bibasilar crackles. Few wheezes. HEART: The heart sounds are irregular. S1-S2 with no murmur. ABDOMEN: Abdomen obese and protuberant without masses. No organomegaly or tenderness. The bowel sounds are active. EXTREMITIES: Edema 2+. Excoriated skin and lymphedema of both lower extremities. Decreased peripheral pulses. Reflexes are 1+. The patient does move all his extremities well. NEUROLOGIC: No gross motor deficits. Cranial nerves are grossly intact. Assessment and Plan Assessment and Plan IMPRESSION: 1. Hypercapnic respiratory failure, resolving. 2. Pulmonary edema and diastolic heart failure. 3. Chronic lymphedema with stasis dermatitis. 4. History of anemia. 5. Hyponatremia. 6. Atrial fibrillation and arteriosclerotic heart disease. 7. Obstructive sleep apnea syndrome. Plan : 1. O2 at 2 L. 2. Continue antibiotics.and switch to PO [id number] mg bid 3. Nebs qid , duoneb. 4. Continue Lasix 40 mg bid. 5. CBC,BMP. 6. Taper solumedrol to 40 mg bid. Long Reid MD Sep 13, 2017 17:12
[2017-09-13] MEDS: ATORVASTATIN 40 MG TAB PO SCH (22:55)
[2017-09-13] MEDS: LINEZOLID 600 MG TAB PO SCH (22:56)
[2017-09-13] MEDS: LORazepam 2 MG/ML VIAL IV PUSH PRN (23:13)
[2017-09-14] VITALS (28 sets, daily range): BP systolic 111–131; BP diastolic 64–79; PULSE 80–109; RESP 18–22; TEMP 97.9–98.3; O2SAT 91–99
[2017-09-14] MEDS: PIPERACIL-TAZO 4.5 GM PREMIX 100 ML IV SCH ×3 (01:00→12:59)
[2017-09-14] MEDS: DILTIAZEM HCL 60 MG TAB PO SCH ×4 (05:48→22:31)
[2017-09-14] MEDS: METOPROLOL TARTRATE 25 MG TAB PO SCH ×3 (05:49→20:17)
[2017-09-14 06:44] LABS: HEMATOCRIT 26.2 % (39.0-51.0); HEMOGLOBIN 8.2 GM/DL (13.0-17.0); MEAN CELL VOLUME 90.5 FL (80.0-100.0); MEAN CORPUSCULAR HEMOGLOBIN 28.4 PG (27.0-34.0); MEAN CORPUSCULAR HGB CONC 31.4 % (32.0-36.0); MEAN PLATELET VOLUME 7.7 FL (7.0-11.0); PLATELET COUNT 311 TH/MM3 (150-450); RED CELL DISTRIBUTION WIDTH 21.8 % (11.6-17.2); WHITE BLOOD COUNT 6.7 TH/MM3 (4.0-11.0)
[2017-09-14 07:03] LABS: BICARBONATE 39.1 MEQ/L (21.0-32.0); CALCIUM 9.1 MG/DL (8.5-10.1); CREATININE 1.93 MG/DL (0.60-1.30)
[2017-09-14] MEDS: CHLORHEXIDINE 0.12% (ORAL KIT) 15 ML CUP MT SCH (08:00)
[2017-09-14] MEDS: RESP: ALBUTEROL 2.5 MG/IPRATROPIUM 0.5 MG NEB (SCH) NEB ×4 (08:00→19:09)
[2017-09-14] MEDS: FLUTICASONE 100 MCG/VILANTEROL 25 MCG INHALER INH SCH (09:17)
[2017-09-14] MEDS: INSULIN ASPART SUPPLEMENTAL SCALE SQ SCH ×4 (09:19→22:32)
[2017-09-14] MEDS: SODIUM CHLORIDE 0.9% FLUSH 10 ML FLUSH IV FLUSH SCH ×2 (09:19→20:18)
[2017-09-14] MEDS: CALCIUM ACETATE 667 MG CAP PO SCH ×3 (09:19→17:20)
[2017-09-14] MEDS: DOCUSATE SODIUM 50 MG/SENNA 8.6 MG TAB PO SCH ×2 (09:20→20:17)
[2017-09-14] MEDS: methylPREDNISolone SOD SUCC 40 MG/1 ML VIAL IV PUSH SCH ×2 (09:20→20:18)
[2017-09-14] MEDS: RIVAROXABAN 15 MG TAB PO SCH (09:20)
[2017-09-14] MEDS: CHOLECALCIFEROL (VIT D3) 1000 UNIT TAB PO SCH (09:20)
[2017-09-14] MEDS: THIAMINE HCL 100 MG TAB PO SCH (09:20)
[2017-09-14] MEDS: FUROSEMIDE 40 MG/4 ML VIAL IV PUSH SCH ×3 (09:21→17:21)
[2017-09-14] MEDS: DIGOXIN 0.125 MG TAB PO SCH (09:21)
[2017-09-14] MEDS: FAMOTIDINE 20 MG TAB NG SCH (09:21)
[2017-09-14] MEDS: TAMSULOSIN HCL 0.4 MG CAP PO SCH (09:21)
[2017-09-14] MEDS: MULTIVITAMIN TAB PO SCH (09:21)
[2017-09-14] MEDS: LINEZOLID 600 MG TAB PO SCH ×2 (09:21→20:17)
[2017-09-14] MEDS: ASCORBIC ACID 500 MG TAB PO SCH (09:22)
[2017-09-14] MEDS: FOLIC ACID 1 MG TAB PO SCH (09:22)
[2017-09-14] MEDS: BUDESONIDE-FORMOTEROL 160/4.5 MCG INHALER INH SCH ×2 (09:24→20:18)
[2017-09-14] MEDS: LACTIC ACID (AMMONIUM LACTATE) 12% LOTION 225 GM BTL TOPICAL SCH ×2 (09:24→21:00)
--- NOTE | 2017-09-14 10:55 | HHI.NPPN ---
Subjective General Problems: Anemia, COPD, Edema, Heart Disease Renal Failure: Chronic, Acute, Stage III History of Present Illness 61-year-old male known to me from before with past medical history of ischemic heart disease, history of congestive heart failure, lymphedema of the legs, chronic kidney disease with recurrent acute kidney injury, multiple admissions for congestive heart multiple, admission for fluid overload status who came to the hospital with complaint of increased swelling of the legs and worsening shortness of breath. I was called to see the patient for the management of fluid and renal failure. Additional Remarks Renal function is stable. Non oliguric. Review of Systems General Constitutional: Fatigue General Remarks unable to evaluate Objective Data Data Vital Signs Date Time Temp Pulse Resp B/P (MAP) Pulse Ox O2 Delivery O2 Flow Rate FiO2 09/14/17 09:26 Nasal Cannula 2.00 09/14/17 06:45 98.3 81 20 115/73 (87) 98 09/14/17 06:00 89 09/14/17 05:00 88 09/14/17 04:00 90 09/14/17 03:00 88 09/14/17 02:00 90 09/14/17 01:00 88 09/14/17 00:00 98.2 99 18 114/70 (85) 91 09/14/17 00:00 94 09/13/17 23:00 95 09/13/17 22:00 96 09/13/17 21:00 96 09/13/17 20:35 98.2 92 18 119/73 (88) 94 09/13/17 20:34 95 Nasal Cannula 2.00 09/13/17 20:00 96 09/13/17 19:00 90 09/13/17 18:00 97 09/13/17 17:00 99 09/13/17 16:00 103 09/13/17 16:00 94 20 106/66 (79) 95 09/13/17 15:00 89 09/13/17 14:00 90 09/13/17 13:00 90 09/13/17 12:00 89 20 113/65 (81) 92 09/13/17 12:00 92 -: 09/14/17 0553 09/14/17 0553 Tubes & Lines: [place] Drip Comment propofol. Physical Exam General Appearance: Comfortable, Anxious, Obese Eyes Eye Exam: Pupils Equal Throat Throat Exam: Oral Mucosa [place] & Moist Neck Neck Exam: Neck Supple Pulmonary Resp Exam: Breath Sounds Equal, Crackles, Rhonchi, Sputum, Decreased Bases, Diminished Breath Sounds Cardiology CV Exam: Regular, Normal Sinus Rhythm Gastrointestinal/Abdomen GI Exam: Soft, Non-Tender, Bowel Sounds Present, Bowel Sounds Hyperactive Musculoskeletal MS Exam: Normal Gait, Good Strength, Unable to Ambulate Integumentary Skin Exam: Warm, Dry Extremeties Extremities Exam: Moderate Edema, Pitting Edema, Dependent Edema Neurologic Neuro Exam: Moving All Extremities, Unresponsive, Sedated Assessment/Plan Assessment Summary: CORIN/Acute Renal Failure, Anemia of CKD, Fluid/Volume Overload, Hypertension, CKD Stage III Electrolyte Assessment: Hypokalemia Problem List: (1) Acute on chronic kidney failure ICD Codes: N17.9 - Acute kidney failure, unspecified; N18.9 - Chronic kidney disease, unspecified Plan: Renal function is about the same as yesterday. Continue Lasix. He is non oliguric. Replace potassium as needed. Restarted Calcium acetate. Monitor phosphorus. (2) Respiratory failure ICD Codes: J96.90 - Respiratory failure, unspecified, unspecified whether with hypoxia or hypercapnia Status: Acute Plan: improved. Likely has DENIS. Needs outpatient sleep study. (3) Edema ICD Codes: R60.9 - Edema, unspecified Status: Chronic Plan: Monitor fluid status. On Lasix. Diamox stopped. Metolazone to be stopped today. (4) Atrial fibrillation, chronic ICD Codes: I48.2 - Chronic atrial fibrillation Status: Chronic Plan: rate control measures. On PO cardizem. (5) COPD exacerbation ICD Codes: J44.1 - Chronic obstructive pulmonary disease with (acute) exacerbation Status: Acute (6) Anemia ICD Codes: D64.9 - Anemia, unspecified Status: Acute Plan: Hemoglobin is low but stable. Problem Qualifiers (1) Edema: Qualified Codes: R60.9 - Edema, unspecified (2) Anemia: Qualified Codes: D64.9 - Anemia, unspecified Jian Matute MD Sep 14, 2017 10:55
--- NOTE | 2017-09-14 15:10 | HHI.PR ---
Subjective Remarks Awake and breathing OK. Still has Leg edema. Used Bipap at HS. Good output with Lasix Objective Vital Signs Date Time Temp Pulse Resp B/P (MAP) Pulse Ox O2 Delivery O2 Flow Rate FiO2 09/14/17 13:00 90 09/14/17 12:00 88 09/14/17 11:29 99 Nasal Cannula 4.00 09/14/17 11:04 97.9 86 20 131/79 (96) 99 09/14/17 11:00 84 09/14/17 10:00 92 09/14/17 09:26 Nasal Cannula 2.00 09/14/17 09:00 80 09/14/17 08:00 80 09/14/17 07:41 83 09/14/17 07:00 98.2 85 22 111/64 (80) 94 09/14/17 06:45 98.3 81 20 115/73 (87) 98 09/14/17 06:00 89 09/14/17 05:00 88 09/14/17 04:00 90 09/14/17 03:00 88 09/14/17 02:00 90 09/14/17 01:00 88 09/14/17 00:00 98.2 99 18 114/70 (85) 91 09/14/17 00:00 94 09/13/17 23:00 95 09/13/17 22:00 96 09/13/17 21:00 96 09/13/17 20:35 98.2 92 18 119/73 (88) 94 09/13/17 20:34 95 Nasal Cannula 2.00 09/13/17 20:00 96 09/13/17 19:00 90 09/13/17 18:00 97 09/13/17 17:00 99 09/13/17 16:00 103 09/13/17 16:00 94 20 106/66 (79) 95 I/O 09/13/17 09/13/17 09/13/17 09/14/17 09/14/17 09/14/17 07:00 15:00 23:00 07:00 15:00 23:00 Intake Total 240 ml 1480 ml 240 ml Output Total 750 ml 1200 ml 700 ml Balance -510 ml 280 ml -460 ml Intake Oral 240 ml 480 ml 240 ml IV Total 1000 ml Output Urine Total 750 ml 1200 ml 700 ml # Bowel Movements 0 1 0 Result Diagram: 09/14/17 0553 09/14/17 0553 Objective Remarks GENERAL: This is an obese middle-aged white male who is alert and in no distress HEAD, EYES, EARS, NOSE, THROAT: Head normocephalic. The pupils are reactive. The sclerae are clear. Tongue was moist. Throat is clear NECK: The neck is supple. No bruits. There is mild venous distention while sitting upright. No thyroid enlargement. CHEST: Decreased breath sounds at the bases with occasional bibasilar crackles. Few wheezes. HEART: The heart sounds are irregular. S1-S2 with no murmur. ABDOMEN: Abdomen obese and protuberant without masses. No organomegaly or tenderness. The bowel sounds are active. EXTREMITIES: Edema 2+. Excoriated skin and lymphedema of both lower extremities. Decreased peripheral pulses. Reflexes are 1+. The patient does move all his extremities well. NEUROLOGIC: No gross motor deficits. Cranial nerves are grossly intact. Assessment and Plan Assessment and Plan IMPRESSION: 1. Hypercapnic respiratory failure, resolving. 2. Pulmonary edema and diastolic heart failure. 3. Chronic lymphedema with stasis dermatitis. 4. History of anemia. 5. Hyponatremia. 6. Atrial fibrillation and arteriosclerotic heart disease. 7. Obstructive sleep apnea syndrome. Plan : 1. O2 at 2 L. 2. Continue antibiotics.and switch to PO 3. Nebs qid , duoneb. 4. Continue Lasix 40 mg bid. 5. CXR in am. 6. Solumedrol to 40 mg bid. Long Reid MD Sep 14, 2017 15:10
--- NOTE | 2017-09-14 16:49 | HHI.PR ---
Subjective Remarks Pt is in bed today, appears tired/sleepy, admits he does not sleep well (hx of sleep apnea), low energy. He wants to go to a rehab upon discharge. Objective Vitals Vital Signs Date Time Temp Pulse Resp B/P (MAP) Pulse Ox O2 Delivery O2 Flow Rate FiO2 09/14/17 13:00 90 09/14/17 12:00 88 09/14/17 11:29 99 Nasal Cannula 4.00 09/14/17 11:04 97.9 86 20 131/79 (96) 99 09/14/17 11:00 84 09/14/17 10:00 92 09/14/17 09:26 Nasal Cannula 2.00 09/14/17 09:00 80 09/14/17 08:00 80 09/14/17 07:41 83 09/14/17 07:00 98.2 85 22 111/64 (80) 94 09/14/17 06:45 98.3 81 20 115/73 (87) 98 09/14/17 06:00 89 09/14/17 05:00 88 09/14/17 04:00 90 09/14/17 03:00 88 09/14/17 02:00 90 09/14/17 01:00 88 09/14/17 00:00 98.2 99 18 114/70 (85) 91 09/14/17 00:00 94 09/13/17 23:00 95 09/13/17 22:00 96 09/13/17 21:00 96 09/13/17 20:35 98.2 92 18 119/73 (88) 94 09/13/17 20:34 95 Nasal Cannula 2.00 09/13/17 20:00 96 09/13/17 19:00 90 09/13/17 18:00 97 09/13/17 17:00 99 I/O 09/13/17 09/13/17 09/13/17 09/14/17 09/14/17 09/14/17 07:00 15:00 23:00 07:00 15:00 23:00 Intake Total 240 ml 1480 ml 240 ml 100 ml Output Total 750 ml 1200 ml 700 ml Balance -510 ml 280 ml -460 ml 100 ml Intake Oral 240 ml 480 ml 240 ml IV Total 1000 ml 100 ml Output Urine Total 750 ml 1200 ml 700 ml # Bowel Movements 0 1 0 Result Diagram: 09/14/17 0553 09/14/17 0553 Objective Remarks GENERAL: Obese patient in poor health SKIN: Warm and dry, lymphedematous changes to bilateral LE's HEAD: Normocephalic. EYES: No scleral icterus. No injection or drainage. NECK: Supple, trachea midline. No JVD or lymphadenopathy. CARDIOVASCULAR: Regular rate and rhythm without murmurs, gallops, or rubs. RESPIRATORY: Breath sounds diminished with weak effort, no crackles or wheezes. No accessory muscle use. GASTROINTESTINAL: Abdomen obese, nontender MUSCULOSKELETAL: No cyanosis, or edema. EXTREMITIES: Chronic edematous changes (lymphedema) A/P Problem List: (1) CHF (congestive heart failure) ICD Code: I50.9 - Heart failure, unspecified Status: Chronic (2) A-fib ICD Code: I48.91 - Unspecified atrial fibrillation Status: Chronic (3) Hyponatremia ICD Code: E87.1 - Hypo-osmolality and hyponatremia Status: Acute (4) Acute on chronic kidney failure ICD Code: N17.9 - Acute kidney failure, unspecified; N18.9 - Chronic kidney disease, unspecified (5) Anemia ICD Code: D64.9 - Anemia, unspecified Status: Acute Assessment and Plan CHF Exacerbation Continue Lasix, Metolazone stopped per nephrology Still evidence of excess fluid in CXR and lower extremities He is on 2 L of oxygen via nasal canula at home Atrial Fibrillation Stable, continue Lopressor, Cardizem, Digoxin Pt admits to drinking excess alcohol, 6-8 drinks per day, which may correlate with these periodic hospitalizations for decompensation Sleep Apnea Respiratory consult to set up CPAP for use when sleeping Type 2 Diabetes Sliding scale coverage with accuchecks Diabetic diet COPD No sign of wheezing, but will monitor for changes Sepsis? He is new to me, so I will continue Zosyn and Linezolid until trend and hospital course reviewed further. DVT Prophylaxis Xarelto Discharge Planning Patient would like to build strength back at a rehab once discharge is appropriate. Problem Qualifiers (1) Anemia: Qualified Codes: D64.9 - Anemia, unspecified Bola Conteh MD Sep 14, 2017 16:49
[2017-09-14] MEDS: ATORVASTATIN 40 MG TAB PO SCH (20:17)
[2017-09-14] MEDS: AMOXICILLIN/CLAVULANATE K 875 MG TAB PO SCH (20:37)
[2017-09-14] MEDS: LORazepam 2 MG/ML VIAL IV PUSH PRN (22:19)
[2017-09-15] VITALS (28 sets, daily range): BP systolic 115–143; BP diastolic 71–80; PULSE 63–116; RESP 20–22; TEMP 97.9–98.4; O2SAT 92–98
[2017-09-15] MEDS: DILTIAZEM HCL 60 MG TAB PO SCH ×4 (04:37→22:31)
--- NOTE | 2017-09-15 05:00 | RADRPT ---
EXAM DATE/TIME: 09/15/2017 04:13 [facility] COMPARISON: CHEST SINGLE AP, September 13, 2017, 3:37. INDICATIONS : Short of breath. MEDICAL HISTORY : Chronic obstructive pulmonary disease. Hypercholesterolemia. Myocardial infraction. SURGICAL HISTORY : Cardiac ablation. ENCOUNTER: Subsequent ACUITY: 1 week PAIN SCORE: 0/10 LOCATION: Bilateral chest FINDINGS: A single portable frontal view of the chest shows cardiomegaly with pulmonary vascular engorgement. I mprovement in the pulmonary infiltrates but persistent basilar opacities. No discrete effusion seen o n the current study. CONCLUSION: Radiographic pattern most consistent with pulmonary edema. There has been some improvement. Gonzalez Stewart Jr., MD on September 15, 2017 at 4:57 Board Certified Radiologist. This report was verified electronically.
[2017-09-15 05:26] LABS: HEMATOCRIT 25.8 % (39.0-51.0); HEMOGLOBIN 8.3 GM/DL (13.0-17.0); MEAN CELL VOLUME 88.5 FL (80.0-100.0); MEAN CORPUSCULAR HEMOGLOBIN 28.5 PG (27.0-34.0); MEAN CORPUSCULAR HGB CONC 32.2 % (32.0-36.0); MEAN PLATELET VOLUME 7.2 FL (7.0-11.0); PLATELET COUNT 295 TH/MM3 (150-450); RED BLOOD COUNT 2.92 MIL/MM3 (4.50-5.90); RED CELL DISTRIBUTION WIDTH 21.4 % (11.6-17.2); WHITE BLOOD COUNT 6.9 TH/MM3 (4.0-11.0)
[2017-09-15] MEDS: METOPROLOL TARTRATE 25 MG TAB PO SCH ×3 (05:44→22:31)
[2017-09-15 05:54] LABS: BICARBONATE 38.7 MEQ/L (21.0-32.0); CALCIUM 9.3 MG/DL (8.5-10.1); CREATININE 1.74 MG/DL (0.60-1.30)
[2017-09-15] MEDS: RESP: ALBUTEROL 2.5 MG/IPRATROPIUM 0.5 MG NEB (SCH) NEB ×4 (08:16→19:33)
[2017-09-15] MEDS: FLUTICASONE 100 MCG/VILANTEROL 25 MCG INHALER INH SCH (09:01)
[2017-09-15] MEDS: INSULIN ASPART SUPPLEMENTAL SCALE SQ SCH ×4 (09:02→23:35)
[2017-09-15] MEDS: THIAMINE HCL 100 MG TAB PO SCH (09:03)
[2017-09-15] MEDS: DIGOXIN 0.125 MG TAB PO SCH (09:03)
[2017-09-15] MEDS: methylPREDNISolone SOD SUCC 40 MG/1 ML VIAL IV PUSH SCH (09:04)
[2017-09-15] MEDS: FOLIC ACID 1 MG TAB PO SCH (09:04)
[2017-09-15] MEDS: CHOLECALCIFEROL (VIT D3) 1000 UNIT TAB PO SCH (09:04)
[2017-09-15] MEDS: LINEZOLID 600 MG TAB PO SCH ×2 (09:05→22:31)
[2017-09-15] MEDS: CALCIUM ACETATE 667 MG CAP PO SCH ×3 (09:05→16:29)
[2017-09-15] MEDS: TAMSULOSIN HCL 0.4 MG CAP PO SCH (09:05)
[2017-09-15] MEDS: FUROSEMIDE 40 MG/4 ML VIAL IV PUSH SCH (09:05)
[2017-09-15] MEDS: RIVAROXABAN 15 MG TAB PO SCH (09:05)
[2017-09-15] MEDS: ASCORBIC ACID 500 MG TAB PO SCH (09:06)
[2017-09-15] MEDS: SODIUM CHLORIDE 0.9% FLUSH 10 ML FLUSH IV FLUSH SCH ×2 (09:06→22:32)
[2017-09-15] MEDS: DOCUSATE SODIUM 50 MG/SENNA 8.6 MG TAB PO SCH ×2 (09:06→22:32)
[2017-09-15] MEDS: MULTIVITAMIN TAB PO SCH (09:06)
[2017-09-15] MEDS: LACTIC ACID (AMMONIUM LACTATE) 12% LOTION 225 GM BTL TOPICAL SCH ×2 (09:07→21:00)
[2017-09-15] MEDS: CHLORHEXIDINE 0.12% (ORAL KIT) 15 ML CUP MT SCH (09:07)
[2017-09-15] MEDS: BUDESONIDE-FORMOTEROL 160/4.5 MCG INHALER INH SCH ×2 (09:07→21:00)
[2017-09-15] MEDS: FAMOTIDINE 20 MG TAB NG SCH (09:10)
[2017-09-15] MEDS: AMOXICILLIN/CLAVULANATE K 875 MG TAB PO SCH ×2 (09:22→22:31)
[2017-09-15] MEDS ORDERED: POTASSIUM CHLORIDE 8 MEQ CAP PO SCH (10:00)
--- NOTE | 2017-09-15 10:49 | HHI.NPPN ---
Subjective General Problems: Anemia, COPD, Edema, Heart Disease Renal Failure: Chronic, Acute, Stage III History of Present Illness 61-year-old male known to me from before with past medical history of ischemic heart disease, history of congestive heart failure, lymphedema of the legs, chronic kidney disease with recurrent acute kidney injury, multiple admissions for congestive heart multiple, admission for fluid overload status who came to the hospital with complaint of increased swelling of the legs and worsening shortness of breath. I was called to see the patient for the management of fluid and renal failure. Additional Remarks Renal function has improved. Excellent diuresis. Potential discharge today. (Tika Hartman) Review of Systems General Constitutional: Fatigue (Tika Hartman) Cardiovascular Cardiac: Edema (Tika Hartman) Objective Data Data Vital Signs Date Time Temp Pulse Resp B/P (MAP) Pulse Ox O2 Delivery O2 Flow Rate FiO2 09/15/17 06:09 78 09/15/17 05:22 3.00 09/15/17 05:00 80 09/15/17 04:00 80 09/15/17 04:00 97.9 80 20 133/75 (94) 98 09/15/17 02:00 63 09/15/17 01:00 94 35 09/15/17 00:00 98.0 88 20 136/76 (96) 98 09/14/17 22:00 98 35 09/14/17 20:00 98.0 109 20 114/66 (82) 98 09/14/17 19:11 99 Nasal Cannula 4.00 09/14/17 18:00 88 09/14/17 17:33 92 22 130/78 (95) 98 09/14/17 17:28 98.0 09/14/17 17:00 92 09/14/17 16:00 88 09/14/17 15:00 87 09/14/17 14:00 92 09/14/17 13:00 90 09/14/17 12:00 88 09/14/17 11:29 99 Nasal Cannula 4.00 09/14/17 11:04 97.9 86 20 131/79 (96) 99 09/14/17 11:00 84 (Tika Hartman) -: 09/15/17 0504 09/15/17 0504 Imaging Last 72 hours Impressions Chest X-Ray 09/15/17 0600 Signed Impressions: Service Date/Time: Friday, September 15, 2017 04:13 - CONCLUSION: Radiographic pattern most consistent with pulmonary edema. There has been some improvement. Gonzalez Stewart Jr., MD Chest X-Ray 09/13/17 0600 Signed Impressions: Service Date/Time: Wednesday, September 13, 2017 03:37 - CONCLUSION: Bilateral parenchymal opacities slightly worse on the right and slightly improved on the left. Small bilateral pleural effusions not significantly changed. Endotracheal tube and nasogastric tube out. Renny Smith MD (Tika Hartman [employer]) Physical Exam General Appearance: Well Nourished, No Acute Distress, Comfortable, Anxious, Obese (Tika Hartman [employer]) Eyes Eye Exam: Pupils Equal (Tika Hartman [employer]) Throat Throat Exam: Oral Mucosa [place] & Moist (Tika Hartman [employer]) Neck Neck Exam: Neck Supple (Tika Hartman [employer]) Pulmonary Resp Exam: Breath Sounds Equal, Crackles, Decreased Bases, Diminished Breath Sounds (Tika Hartman [employer]) Cardiology CV Exam: Regular, Normal Sinus Rhythm (Tika Hartman [employer]) Gastrointestinal/Abdomen GI Exam: Soft, Non-Tender, Bowel Sounds Present, Bowel Sounds Hyperactive GI Remarks obese, soft (Tika Hartman [employer]) Musculoskeletal MS Exam: Normal Gait, Good Strength, Unable to Ambulate (Tika Hartman [employer]) Integumentary Skin Exam: Warm, Dry Skin Remarks chronic skin changes on bilateral lower extremities (Tika Hartman [employer]) Extremeties Extremities Exam: Moderate Edema, Dependent Edema (Tika Hartman [employer]) Neurologic Neuro Exam: Alert, Awake, Oriented, Speech Clear, Moving All Extremities (Tika Hatrman [employer]) Psychiatric Psych Exam: Appropriate Responses (Tika Hartman BLinda JAMAP) Assessment/Plan Discussed Condition With: Patient Assessment Summary: CORIN/Acute Renal Failure, Anemia of CKD, Fluid/Volume Overload, Hypertension, CKD Stage III Electrolyte Assessment: Hypokalemia Problem List: (1) Acute on chronic kidney failure ICD Codes: N17.9 - Acute kidney failure, unspecified; N18.9 - Chronic kidney disease, unspecified Plan: Renal function has improved. Excellent diuresis. Reduce Lasix to 40 PO BID. Replace potassium as needed. Stop Calcium acetate at discharge. Avoid IVF administration. (2) Respiratory failure ICD Codes: J96.90 - Respiratory failure, unspecified, unspecified whether with hypoxia or hypercapnia Status: Acute Plan: improved. Likely has DENIS. Needs outpatient sleep study. (3) Edema ICD Codes: R60.9 - Edema, unspecified Status: Chronic Plan: Improved, has chronic lower extremity edema. Monitor fluid status. On Lasix, dosage changed. (4) Atrial fibrillation, chronic ICD Codes: I48.2 - Chronic atrial fibrillation Status: Chronic Plan: rate control measures. On PO cardizem. (5) COPD exacerbation ICD Codes: J44.1 - Chronic obstructive pulmonary disease with (acute) exacerbation Status: Acute (6) Anemia ICD Codes: D64.9 - Anemia, unspecified Status: Acute Plan: Hemoglobin is low but stable. Plan The patient is cleared for discharge from renal perspective. We will sign off at this time. (Tika Hartman) Plan patient was seen and examined. Agree with above assessment and plan. (Jian Matute MD) Problem Qualifiers (1) Edema: Qualified Codes: R60.9 - Edema, unspecified (2) Anemia: Qualified Codes: D64.9 - Anemia, unspecified Tika Hartman Sep 15, 2017 10:49 Jian Matute MD Sep 15, 2017 20:53
[2017-09-15] MEDS: POTASSIUM CHLORIDE 8 MEQ CONTROLLED RELEASE TAB PO SCH (12:08)
[2017-09-15] MEDS: FUROSEMIDE 40 MG TAB PO SCH (16:29)
[2017-09-15] MEDS ORDERED: DILT240C44 PO (16:54)
[2017-09-15] MEDS ORDERED: ATOR40TA16 PO (16:54)
[2017-09-15] MEDS ORDERED: VENTAER INH (16:54)
[2017-09-15] MEDS ORDERED: XARE15TA PO (16:54)
[2017-09-15] MEDS ORDERED: NOVOLOGSS SQ (16:54)
[2017-09-15] MEDS ORDERED: TAMS5CAP PO (16:54)
[2017-09-15] MEDS ORDERED: TORS1TAB12 PO (16:54)
[2017-09-15] MEDS ORDERED: METO-309 PO (16:54)
[2017-09-15] MEDS ORDERED: ACET125 PO (16:54)
[2017-09-15] MEDS ORDERED: IPRA17I INH (16:54)
[2017-09-15] MEDS ORDERED: SENN187 PO (16:54)
[2017-09-15] MEDS ORDERED: KLOR8TAB PO (16:54)
[2017-09-15] MEDS ORDERED: DIGO0.12 PO (16:54)
[2017-09-15] MEDS ORDERED: SYMB160A INH (16:54)
[2017-09-15] MEDS ORDERED: CALC667C PO (16:54)
[2017-09-15] MEDS ORDERED: Albuterol-Ipratropium Neb NEB (16:54)
--- NOTE | 2017-09-15 17:03 | HHI.DS ---
Discharge Summary Admission Date Sep 05, 2017 at 11:22 Discharge Date: Sep 15, 2017 Admitting Diagnosis (1) CHF (congestive heart failure) ICD Code: I50.9 - Heart failure, unspecified Status: Chronic (2) A-fib ICD Code: I48.91 - Unspecified atrial fibrillation Status: Chronic (3) Hyponatremia ICD Code: E87.1 - Hypo-osmolality and hyponatremia Status: Acute (4) Acute on chronic kidney failure ICD Code: N17.9 - Acute kidney failure, unspecified; N18.9 - Chronic kidney disease, unspecified (5) Anemia ICD Code: D64.9 - Anemia, unspecified Status: Acute Procedures none Brief History - From Admission A 61-year-old male with past medical history of HTN, CHF, A. fib on Xarelto, HLD ,COPD, bilateral leg swelling, and alcohol abuse. Patient was brought to ED via [facility] after patient recommended he come in due to worsening leg swelling, jaundice, and increased SOB. States he has a history of COPD and chronic leg swelling. He repots that his leg swelling for the past 3 days has been worse than usual and he has been unable to walk with his walker. Nurse noticed yellowing jaundice that began past 3 days ago. Denies any pale or black stools. Reports blood in the stool off and on for the past several months, nothing consistent. Last colonoscopy and endoscopy was 1 year ago and repots this as normal. States he continues to drink and is drinking 4-5 short glass vodka and [place] Dew a day. Last drink was this AM. Denies any nausea, vomiting, abdominal pain. Diarrhea x1 on Thursday, reports constipation for the past month. Last BM this morning with constipation. Knows he has to stop drinking and states that this time he is willing to go to rehab and wants to stop drinking. Complaints of SOB with exertion progressively in the past month. Denies chest pains, fevers, + cough non-productive. Wears oxygen at home 2L, sleeps with 2 pillows due to SOB. Denies headaches, lightheadedness, or syncopal episodes. CBC/BMP: 09/15/17 0504 09/15/17 0504 Significant Findings Laboratory Tests Test 09/13/17 05:50 09/14/17 05:53 09/15/17 05:04 Red Blood Count 2.98 MIL/MM3 (4.50-5.90) 2.90 MIL/MM3 (4.50-5.90) 2.92 MIL/MM3 (4.50-5.90) Hemoglobin 8.6 GM/DL (13.0-17.0) 8.2 GM/DL (13.0-17.0) 8.3 GM/DL (13.0-17.0) Hematocrit 26.9 % (39.0-51.0) 26.2 % (39.0-51.0) 25.8 % (39.0-51.0) Mean Corpuscular Hemoglobin Concent 31.8 % (32.0-36.0) 31.4 % (32.0-36.0) Red Cell Distribution Width 21.4 % (11.6-17.2) 21.8 % (11.6-17.2) 21.4 % (11.6-17.2) Blood Urea Nitrogen 81 MG/DL (7-18) 88 MG/DL (7-18) 84 MG/DL (7-18) Creatinine 1.96 MG/DL (0.60-1.30) 1.93 MG/DL (0.60-1.30) 1.74 MG/DL (0.60-1.30) Random Glucose 177 MG/DL (74-106) 205 MG/DL (74-106) 197 MG/DL (74-106) Chloride Level 93 MEQ/L (98-107) 95 MEQ/L (98-107) 96 MEQ/L (98-107) Carbon Dioxide Level 35.9 MEQ/L (21.0-32.0) 39.1 MEQ/L (21.0-32.0) 38.7 MEQ/L (21.0-32.0) Estimat Glomerular Filtration Rate 35 ML/MIN (>89) 35 ML/MIN (>89) 40 ML/MIN (>89) Potassium Level 3.3 MEQ/L (3.5-5.1) PE at Discharge GENERAL: Obese patient in poor health SKIN: Warm and dry, lymphedematous changes to bilateral LE's HEAD: Normocephalic. EYES: No scleral icterus. No injection or drainage. NECK: Supple, trachea midline. No JVD or lymphadenopathy. CARDIOVASCULAR: Regular rate and rhythm without murmurs, gallops, or rubs. RESPIRATORY: Breath sounds diminished with weak effort, no crackles or wheezes. No accessory muscle use. GASTROINTESTINAL: Abdomen obese, nontender MUSCULOSKELETAL: No cyanosis, or edema. EXTREMITIES: Chronic edematous changes (lymphedema) Hospital Course 61M with h/o DM2, CHF, COPD, alcoholism presented with respiratory distress that became respiratory failure and required placement onto a vent for a few days. He was treated throughout his stay for sepsis empirically, though there is not evidence for an infection at this time. He has a history of lymphedema with occasional leg infections that often result positive for MRSA. He has sleep apnea and has responded very well to overnight on a CPAP machine. His baseline is oxygen at 2L nasal canula. Pt Condition on Discharge: Fair Discharge Disposition: Discharge to SNF Discharge Time: > 30 minutes Discharge Instructions DIET: Follow Instructions for: Heart Healthy Diet, Diabetic Diet Activities you can perform: See Additionl Instruction Other Activity Instructions: Ambulate with walker as tolerated Bola Conteh MD Sep 15, 2017 17:03
[2017-09-15] MEDS ORDERED: WALKER/ADULT/FO1 MIS (17:04)
[2017-09-15] MEDS ORDERED: [UNRECOGNIZED DRUG - OTHER] (17:10)
--- NOTE | 2017-09-15 18:35 | HHI.PR ---
Subjective Remarks Awake and seems better . Still has Leg edema. Used Bipap at HS. Needs home CPAP. Good output with Lasix Objective Vital Signs Date Time Temp Pulse Resp B/P (MAP) Pulse Ox O2 Delivery O2 Flow Rate FiO2 09/15/17 17:01 87 09/15/17 16:25 98.0 88 20 140/74 (96) 98 09/15/17 16:00 82 09/15/17 15:00 87 09/15/17 14:00 94 09/15/17 13:00 96 09/15/17 12:53 98.0 98 20 143/75 (97) 95 09/15/17 12:00 88 09/15/17 11:00 93 09/15/17 10:00 90 09/15/17 09:00 86 09/15/17 08:00 98.2 75 22 132/75 (94) 92 09/15/17 07:00 93 09/15/17 06:09 78 09/15/17 05:22 3.00 09/15/17 05:00 80 09/15/17 04:00 80 09/15/17 04:00 97.9 80 20 133/75 (94) 98 09/15/17 02:00 63 09/15/17 01:00 94 35 09/15/17 00:00 98.0 88 20 136/76 (96) 98 09/14/17 22:00 98 35 09/14/17 20:00 98.0 109 20 114/66 (82) 98 09/14/17 19:11 99 Nasal Cannula 4.00 I/O 09/14/17 09/14/17 09/14/17 09/15/17 09/15/17 09/15/17 07:00 15:00 23:00 07:00 15:00 23:00 Intake Total 240 ml 100 ml 900 ml 240 ml 720 ml Output Total 700 ml 2400 ml 2525 ml 2500 ml Balance -460 ml 100 ml -1500 ml -2285 ml -1780 ml Intake Oral 240 ml 900 ml 240 ml 720 ml IV Total 100 ml Output Urine Total 700 ml 2400 ml 2525 ml 2500 ml # Bowel Movements 0 2 0 1 Result Diagram: 09/15/17 0504 09/15/17 0504 Objective Remarks GENERAL: This is an obese middle-aged white male who is alert and in no distress HEAD, EYES, EARS, NOSE, THROAT: Head normocephalic. The pupils are reactive. The sclerae are clear. Tongue was moist. Throat is clear NECK: The neck is supple. No bruits. There is mild venous distention. No thyroid enlargement. CHEST: Decreased breath sounds at the bases with occasional bibasilar crackles. Few scattered wheezes. HEART: The heart sounds are irregular. S1-S2 with no murmur. ABDOMEN: Abdomen obese and protuberant without masses. No organomegaly or tenderness. The bowel sounds are active. EXTREMITIES: Edema 2+. Excoriated skin and lymphedema of both lower extremities. Decreased peripheral pulses. Reflexes are 1+. The patient does move all his extremities well. NEUROLOGIC: No gross motor deficits. Cranial nerves are grossly intact. Assessment and Plan Assessment and Plan IMPRESSION: 1. Hypercapnic respiratory failure, resolving. 2. Pulmonary edema and diastolic heart failure. 3. Chronic lymphedema with stasis dermatitis. 4. History of anemia. 5. Hyponatremia. 6. Atrial fibrillation and arteriosclerotic heart disease. 7. Obstructive sleep apnea syndrome. Plan : 1. O2 at 2 L. 2. Continue antibiotics.and switch to PO 3. Nebs qid , duoneb. 4. Continue Lasix 40 mg bid. 5. Will arrange home CPAP set Up 6. D/C Solumedrol 7. Add Prednisone 10 mg bid Long Reid MD Sep 15, 2017 18:35
[2017-09-15] MEDS: predniSONE 10 MG TAB PO SCH (22:31)
[2017-09-15] MEDS: ATORVASTATIN 40 MG TAB PO SCH (22:31)
[2017-09-15] MEDS: LORazepam 2 MG/ML VIAL IV PUSH PRN (23:36)
[2017-09-16] VITALS (21 sets, daily range): BP systolic 116–141; BP diastolic 73–92; PULSE 76–95; RESP 19–20; TEMP 97.4–98.5; O2SAT 96–99
[2017-09-16] MEDS: DILTIAZEM HCL 60 MG TAB PO SCH ×3 (05:31→15:43)
[2017-09-16] MEDS: METOPROLOL TARTRATE 25 MG TAB PO SCH ×2 (06:13→13:10)
[2017-09-16 07:19] LABS: BICARBONATE 35.9 MEQ/L (21.0-32.0); CALCIUM 9.7 MG/DL (8.5-10.1); CREATININE 1.47 MG/DL (0.60-1.30)
[2017-09-16 07:20] LABS: HEMATOCRIT 27.4 % (39.0-51.0); MEAN CELL VOLUME 88.2 FL (80.0-100.0); MEAN CORPUSCULAR HEMOGLOBIN 28.8 PG (27.0-34.0); MEAN CORPUSCULAR HGB CONC 32.6 % (32.0-36.0); MEAN PLATELET VOLUME 7.4 FL (7.0-11.0); PLATELET COUNT 314 TH/MM3 (150-450); RED BLOOD COUNT 3.11 MIL/MM3 (4.50-5.90); RED CELL DISTRIBUTION WIDTH 21.5 % (11.6-17.2); WHITE BLOOD COUNT 9.8 TH/MM3 (4.0-11.0)
[2017-09-16] MEDS: CHLORHEXIDINE 0.12% (ORAL KIT) 15 ML CUP MT SCH (08:00)
[2017-09-16] MEDS: RESP: ALBUTEROL 2.5 MG/IPRATROPIUM 0.5 MG NEB (SCH) NEB ×2 (08:32→12:51)
[2017-09-16] MEDS: INSULIN ASPART SUPPLEMENTAL SCALE SQ SCH ×3 (09:18→17:03)
[2017-09-16] MEDS: DOCUSATE SODIUM 50 MG/SENNA 8.6 MG TAB PO SCH (09:56)
[2017-09-16] MEDS: CALCIUM ACETATE 667 MG CAP PO SCH ×3 (10:04→17:03)
[2017-09-16] MEDS: DIGOXIN 0.125 MG TAB PO SCH (10:05)
[2017-09-16] MEDS: THIAMINE HCL 100 MG TAB PO SCH (10:05)
[2017-09-16] MEDS: CHOLECALCIFEROL (VIT D3) 1000 UNIT TAB PO SCH (10:06)
[2017-09-16] MEDS: MULTIVITAMIN TAB PO SCH (10:06)
[2017-09-16] MEDS: LINEZOLID 600 MG TAB PO SCH (10:06)
[2017-09-16] MEDS: FAMOTIDINE 20 MG TAB NG SCH (10:07)
[2017-09-16] MEDS: RIVAROXABAN 15 MG TAB PO SCH (10:07)
[2017-09-16] MEDS: ASCORBIC ACID 500 MG TAB PO SCH (10:07)
[2017-09-16] MEDS: AMOXICILLIN/CLAVULANATE K 875 MG TAB PO SCH (10:07)
[2017-09-16] MEDS: FOLIC ACID 1 MG TAB PO SCH (10:07)
[2017-09-16] MEDS: predniSONE 10 MG TAB PO SCH (10:07)
[2017-09-16] MEDS: SODIUM CHLORIDE 0.9% FLUSH 10 ML FLUSH IV FLUSH SCH (10:08)
[2017-09-16] MEDS: POTASSIUM CHLORIDE 8 MEQ CONTROLLED RELEASE TAB PO SCH (10:08)
[2017-09-16] MEDS: FUROSEMIDE 40 MG TAB PO SCH ×2 (10:08→17:03)
[2017-09-16] MEDS: TAMSULOSIN HCL 0.4 MG CAP PO SCH (10:08)
[2017-09-16] MEDS: FLUTICASONE 100 MCG/VILANTEROL 25 MCG INHALER INH SCH (10:09)
[2017-09-16] MEDS: BUDESONIDE-FORMOTEROL 160/4.5 MCG INHALER INH SCH (10:09)
[2017-09-16] MEDS: LACTIC ACID (AMMONIUM LACTATE) 12% LOTION 225 GM BTL TOPICAL SCH (10:10)
--- NOTE | 2017-09-16 12:10 | HHI.PR ---
Subjective Remarks Alert and better . Less Leg edema. Used Bipap at HS. Needs home CPAP. Will go to rehab Objective Vital Signs Date Time Temp Pulse Resp B/P (MAP) Pulse Ox O2 Delivery O2 Flow Rate FiO2 09/16/17 11:06 97.4 91 19 134/92 (106) 98 09/16/17 10:00 90 09/16/17 09:00 80 09/16/17 08:34 97.5 81 19 141/73 (95) 96 09/16/17 08:32 99 Nasal Cannula 2.00 09/16/17 08:00 76 09/16/17 07:00 79 09/16/17 05:00 83 09/16/17 04:30 98.5 83 20 136/79 (98) 96 09/16/17 04:00 93 09/16/17 03:00 87 09/16/17 02:00 93 09/16/17 01:00 86 09/16/17 00:00 94 09/15/17 23:36 98.2 99 20 121/80 (94) 98 09/15/17 23:00 96 09/15/17 22:50 97 35 09/15/17 22:00 116 09/15/17 21:00 100 09/15/17 20:00 92 09/15/17 20:00 98.4 100 20 115/71 (86) 98 09/15/17 19:55 93 Nasal Cannula 3.00 09/15/17 19:00 96 09/15/17 18:10 85 09/15/17 17:01 87 09/15/17 16:25 98.0 88 20 140/74 (96) 98 09/15/17 16:00 82 09/15/17 15:00 87 09/15/17 14:00 94 09/15/17 13:00 96 09/15/17 12:53 98.0 98 20 143/75 (97) 95 I/O 09/15/17 09/15/17 09/15/17 09/16/17 09/16/17 09/16/17 07:00 15:00 23:00 07:00 15:00 23:00 Intake Total 240 ml 720 ml 240 ml Output Total 2525 ml 2500 ml 1400 ml Balance -2285 ml -1780 ml -1160 ml Intake Oral 240 ml 720 ml 240 ml Output Urine Total 2525 ml 2500 ml 1400 ml # Bowel Movements 0 1 1 Result Diagram: 09/16/1753909/16/17539 Objective Remarks GENERAL: This is an obese middle-aged white male who is alert and in no distress HEAD, EYES, EARS, NOSE, THROAT: Head normocephalic. The pupils are reactive. The sclerae are clear. Tongue was moist. Throat is clear NECK: The neck is supple. No bruits. There is mild venous distention. No thyroid enlargement. CHEST: Decreased breath sounds at the bases with occasional bibasilar crackles. HEART: The heart sounds are irregular. S1-S2 with no murmur. ABDOMEN: Abdomen obese and protuberant without masses. No organomegaly or tenderness. The bowel sounds are active. EXTREMITIES: Edema 2+. Excoriated skin and lymphedema of both lower extremities. Decreased peripheral pulses. Reflexes are 1+. No deficits NEUROLOGIC: No gross motor deficits. Cranial nerves are grossly intact. Assessment and Plan Assessment and Plan IMPRESSION: 1. Hypercapnic respiratory failure, resolving. 2. Pulmonary edema and diastolic heart failure. 3. Chronic lymphedema with stasis dermatitis. 4. History of anemia. 5. Hyponatremia. 6. Atrial fibrillation and arteriosclerotic heart disease. 7. Obstructive sleep apnea syndrome. Plan : 1. O2 at 2 L. 2. Continue antibiotics PO for 5 days 3. Nebs qid , duoneb. 4. Continue Lasix 40 mg bid. 5. Will arrange home CPAP set Up 6. To rehab today 7. Prednisone 10 mg bid 8. Will F/U as OP in 2 weeks Long Reid MD Sep 16, 2017 12:10
== END 2017-09-16 18:32 | DRG 291 ==
LOC: NEPC 11:08 → NEDA 18:15 → NEPGCP 19:33 → OBSVTOIN 09-05 11:22 → N07A 09-05 18:40 → HIME 09-06 08:56 → HCIS 09-12 18:25
PROVIDERS: ADMIT Hospitalist; ATTEND Hospitalist
PROC: 3E0F7GC Introduction of Other Therapeutic Substance into Respiratory Tract, Via Natural or Artificial Opening (ICD-10-PCS; principal; 2017-09-04)
PROC: 5A09357 Assistance with Respiratory Ventilation, Less than 24 Consecutive Hours, Continuous Positive Airway Pressure (ICD-10-PCS; 2017-09-06)
PROC: 30233N1 Transfusion of Nonautologous Red Blood Cells into Peripheral Vein, Percutaneous Approach (ICD-10-PCS; 2017-09-06)
PROC: 5A1945Z Respiratory Ventilation, 24-96 Consecutive Hours (ICD-10-PCS; 2017-09-09)
PROC: 0BH17EZ Insertion of Endotracheal Airway into Trachea, Via Natural or Artificial Opening (ICD-10-PCS; 2017-09-09)
DX: I13.0 Hypertensive heart and chronic kidney disease with heart failure and stage 1 through stage 4 chronic kidney disease, or unspecified chronic kidney disease (principal); I50.33 Acute on chronic diastolic (congestive) heart failure; J96.21 Acute and chronic respiratory failure with hypoxia; E87.2 Acidosis; N17.9 Acute kidney failure, unspecified; J44.0 Chronic obstructive pulmonary disease with (acute) lower respiratory infection; E87.3 Alkalosis; E11.22 Type 2 diabetes mellitus with diabetic chronic kidney disease; L03.115 Cellulitis of right lower limb; N18.3 Chronic kidney disease, stage 3 (moderate); J96.22 Acute and chronic respiratory failure with hypercapnia; J44.1 Chronic obstructive pulmonary disease with (acute) exacerbation; E87.1 Hypo-osmolality and hyponatremia; E66.2 Morbid (severe) obesity with alveolar hypoventilation; L03.116 Cellulitis of left lower limb; J98.11 Atelectasis; K92.1 Melena; N25.81 Secondary hyperparathyroidism of renal origin; I27.20 Pulmonary hypertension, unspecified; E11.65 Type 2 diabetes mellitus with hyperglycemia; I48.2 Chronic atrial fibrillation; Z99.81 Dependence on supplemental oxygen; E78.5 Hyperlipidemia, unspecified; I25.10 Atherosclerotic heart disease of native coronary artery without angina pectoris; Z86.73 Personal history of transient ischemic attack (TIA), and cerebral infarction without residual deficits; Z79.01 Long term (current) use of anticoagulants; F12.90 Cannabis use, unspecified, uncomplicated; D63.1 Anemia in chronic kidney disease; E87.6 Hypokalemia; M54.5 Low back pain; Z83.3 Family history of diabetes mellitus; F10.20 Alcohol dependence, uncomplicated; Z91.19 Patient's noncompliance with other medical treatment and regimen; I89.0 Lymphedema, not elsewhere classified; G89.29 Other chronic pain; I87.2 Venous insufficiency (chronic) (peripheral); I87.8 Other specified disorders of veins; N40.0 Benign prostatic hyperplasia without lower urinary tract symptoms; Z22.322 Carrier or suspected carrier of Methicillin resistant Staphylococcus aureus
CPT/HCPCS: 31500; 36430; 36600; 71010; 71045; 76937; 80048; 80053; 80162; 81001; 82550; 82607; 82746; 82805; 82948; 83735; 83880; 84100; 84484; 85014; 85018; 85025; 85027; 85610; 85730; 86850; 86900; 86901; 86920; 87040; 87070; 87086; 87205; 87641; 93005; 93306; 94002; 94003; 94150; 94640; 94664; 94667; 94668; 99285; G0378; G8987-GO; G8988-GO; J0330; J0696; J1120; J1160; J1630; J1815; J1940; J2020; J2060; J2405; J2543; J2550; J2920; J2930; J3010; J3475; J3480; J7512; P9016; P9047

== ENCOUNTER 2017-09-17 18:13 | Inpatient (IN) | payer OTHER, MEDICARE ==
[~2017-09-17] VITALS: Ht 175.3 cm; Wt 143.3 kg
[~2017-09-17 18:13] MED LIST changes: +Albuterol-Ipratropium Neb NEB; -FLUT1INH INH; +KLOR8TAB PO; -LEVO750T3 PO; +NOVOLOGSS SQ; -PANT40TA3 PO; -PRED10 PO; +SENN187 PO; +WALKER/ADULT/FO1 MIS; +[UNRECOGNIZED DRUG - OTHER]
[2017-09-17 18:22] VITALS: BP 123/79; PULSE 132; RESP 18; TEMP 98.2; O2SAT 98
[2017-09-17 18:43] LABS: AUTOMATED NEUTROPHIL # 7.9 TH/MM3 (1.8-7.7); BASOPHIL # 0.1 TH/MM3 (0-0.2); BASOPHIL % 0.5 % (0.0-2.0); EOSINOPHIL # 0.1 TH/MM3 (0-0.4); EOSINOPHIL % 0.7 % (0.0-4.0); HEMATOCRIT 32.3 % (39.0-51.0); HEMOGLOBIN 10.6 GM/DL (13.0-17.0); LYMPH % 10.6 % (9.0-44.0); MEAN CELL VOLUME 87.3 FL (80.0-100.0); MEAN CORPUSCULAR HEMOGLOBIN 28.5 PG (27.0-34.0); MEAN CORPUSCULAR HGB CONC 32.7 % (32.0-36.0); MEAN PLATELET VOLUME 7.2 FL (7.0-11.0); MONOCYTE # 0.8 TH/MM3 (0-0.9); NEUT % 80.2 % (16.0-70.0); PLATELET COUNT 338 TH/MM3 (150-450); RED CELL DISTRIBUTION WIDTH 20.9 % (11.6-17.2); WHITE BLOOD COUNT 9.8 TH/MM3 (4.0-11.0)
[2017-09-17 18:49] VITALS: BP 120/82; PULSE 140; RESP 19; O2SAT 100
--- NOTE | 2017-09-17 18:53 | RADRPT ---
EXAM DATE/TIME: 09/17/2017 18:34 [place] COMPARISON: CHEST SINGLE AP, September 15, 2017, 4:13. INDICATIONS : Chest pain MEDICAL HISTORY : Chronic obstructive pulmonary disease. Hypercholesterolemia, Myocardial infraction SURGICAL HISTORY : Cardiac ablation ENCOUNTER: Initial ACUITY: 1 day PAIN SCORE: 4/10 LOCATION: Bilateral chest FINDINGS: The lungs are clear. There is cardiomegaly. Minimal atelectatic changes at the bases. Osseous structu res are intact. CONCLUSION: Clear lungs. Burt Anderson MD on September 17, 2017 at 18:50 Board Certified Radiologist. This report was verified electronically.
--- NOTE | 2017-09-17 19:13 | PD ---
HPI Chief Complaint: Cardiac Complaint Time Seen by Provider: 19:08 Travel History International Travel<30 days: No Contact w/Intl Traveler<30days: No Traveled to known affect area: No History of Present Illness HPI 61-year-old male with history of hypertension, CHF, atrial fibrillation on Xarelto, hyperlipidemia, COPD, presents for evaluation of tachycardia. The patient reports that he was at a facility this morning and he was told that his heart rate was elevated. He was referred here for further evaluation. He reports that he feels normal. He denies chest pain, shortness of breath, palpitations, dizziness, lightheadedness, nausea or vomiting, abdominal pain. The patient has been compliant with his medications including his diltiazem. Appears that the patient was admitted on September 05 and was supposed to be discharged to rehabilitation facility, discharged yesterday. PFSH Past Medical History Hx Anticoagulant Therapy: Yes Arthritis: No Asthma: No Atrial Fibrillation: Yes Blood Disorders: No Heart Rhythm Problems: Yes (afib) Cancer: No Cardiac Catheterization: Yes Cardiovascular Problems: Yes High Cholesterol: Yes Chest Pain: No Congestive Heart Failure: Yes COPD: Yes Cerebrovascular Accident: Yes (TIA) Coronary Artery Disease: Yes Diabetes: Yes Diminished Hearing: No Endocrine: Yes Gastrointestinal Disorders: No Genitourinary: No Hypertension: Yes Immune Disorder: No Implanted Vascular Access Dvce: No Kidney Stones: No Musculoskeletal: Yes Neurologic: Yes Psychiatric: No Reproductive: No Respiratory: Yes Integumentary: Yes (BILATERAL LOWER LEG SWELLING/SKIN ITEGRATY ISSUES cellulitis) Immunizations Current: Yes Migraines: No Renal Failure: Yes Seizures: Yes Sickle Cell Disease: No Sleep Apnea: Yes Thyroid Disease: No Past Surgical History Abdominal Surgery: Yes (appendectomy) Appendectomy: Yes Cardiac Surgery: Yes (ABLATIONS X 3 (afib)) Ear Surgery: No Endocrine Surgery: No Eye Surgery: No Genitourinary Surgery: No Gynecologic Surgery: No Neurologic Surgery: No Oral Surgery: No Thoracic Surgery: No Tonsillectomy: Yes Other Surgery: Yes (3 CARDIAC ABLATIONS) Social History Alcohol Use: Yes (3-4 cocktails daily) Tobacco Use: No Substance Use: Yes (marijuana) Allergies-Medications (Allergen,Severity, Reaction): Coded Allergies: No Known Allergies (Unverified Allergy, Unknown, 08/16/17) Reported Meds & Prescriptions Reported Meds & Active Scripts Active [resp] Applic .XX HS CPAP Machine for use when sleeping Walker/Adult/Folding (Device) 1 Mis Mis Ea .ROUTE DIRECTED Novolog Inj (Insulin Aspart) 100 Unit/Ml Inj 1 Injection SQ ACHS 30 Days Senna-Lax (Sennosides) 8.6 Mg Tab 17.2 Mg PO Q12H PRN 30 Days Klor-Con 8 (Potassium Chloride) 8 Meq Tab 8 Meq PO DAILY 30 Days [Albuterol-Ipratropium Neb] 1 AMPULE Nebu 1 Ampule NEB Q4HR PRN 30 Days Demadex (Torsemide) 20 Mg Tab 40 Mg PO DAILY 30 Days Calcium Acetate (Calcium Acetate (Phosphate Bin) 667 Mg Cap 667 Mg PO TID 30 Days Acetazolamide 125 Mg Tab 125 Mg PO BID 30 Days Diltiazem CD 24 HR 240 Mg Caper 240 Mg PO DAILY 30 Days Flomax (Tamsulosin HCl) 0.4 Mg Cap 0.4 Mg PO DAILY 30 Days Xarelto (Rivaroxaban) 15 Mg Tab 15 Mg PO DAILY 30 Days Digoxin 0.125 Mg Tab 0.125 Mg PO DAILY Lopressor (Metoprolol Tartrate) 50 Mg Tab 100 Mg PO Q8H Ventolin Hfa 18 GM Inh (Albuterol Sulfate) 90 Mcg/Act Aer 1 Puff INH Q4H PRN Atrovent HFA 12.9 GM Inh (Ipratropium [place]) 17 Mcg/Act Aer 2 Puff INH Q6HR PRN Symbicort Inh (Budesonide/Formoterol Fumarate) 160-4.5 Mcg/Act Aero 2 Puff INH Q12HR Atorvastatin (Atorvastatin Calcium) 40 Mg Tab 40 Mg PO HS Review of Systems Except as stated in HPI: all other systems reviewed are Neg Physical Exam Narrative GENERAL: Obese male in no acute distress. Tachycardic. SKIN: Warm and dry. HEAD: Atraumatic. Normocephalic. EYES: Pupils equal and round. No scleral icterus. No injection or drainage. ENT: No nasal bleeding or discharge. Mucous membranes pink and moist. NECK: Trachea midline. No JVD. CARDIOVASCULAR: Regular rate and rhythm. No murmur appreciated. RESPIRATORY: No accessory muscle use. Clear to auscultation. Breath sounds equal bilaterally. GASTROINTESTINAL: Abdomen soft, non-tender, nondistended. Hepatic and splenic margins not palpable. MUSCULOSKELETAL: No obvious deformities. No clubbing. No cyanosis. No edema. NEUROLOGICAL: Awake and alert. No obvious cranial nerve deficits. Motor grossly within normal limits. Normal speech. PSYCHIATRIC: Appropriate mood and affect; insight and judgment normal. Data Data Last Documented VS Vital Signs Date Time Temp Pulse Resp B/P (MAP) Pulse Ox O2 Delivery O2 Flow Rate FiO2 09/17/17 19:32 138 16 98/70 (79) 100 Nasal Cannula 2.00 09/17/17 18:22 98.2 Orders Orders Electrocardiogram (09/17/17 18:28) Complete Blood Count With Diff (09/17/17 18:28) Basic Metabolic Panel (Bmp) (09/17/17 18:28) Ckmb (Isoenzyme) Profile (09/17/17 18:28) Troponin I (09/17/17 18:28) Chest, Single Ap (09/17/17 18:28) Iv Access Insert/Monitor (09/17/17 18:28) Ecg Monitoring (09/17/17 18:28) Oxygen Administration (09/17/17 18:28) Oximetry (09/17/17 18:28) Diltiazem Inj (Cardizem Inj) (09/17/17 19:15) Diet Heart Healthy (09/17/17 Dinner) Diltiazem Inj (Cardizem Inj) (09/17/17 19:30) Diltiazem (Cardizem) (09/17/17 20:00) Lorazepam Inj (Ativan Inj) (09/17/17 20:00) Admit To Inpatient (09/17/17 ) Vital Signs (Adult) Q4H (09/17/17 20:01) Activity Bed Rest With Brp (09/17/17 ) Hospital Insurance Clerk / Telemetry COSME.Q8H (09/17/17 20:01) D5-1/2 Ns + Kcl 20 Meq Inj (D5-1/2 Ns + (09/17/17 20:01) Sodium Chloride 0.9% Flush (Ns Flush) (09/17/17 21:00) Sodium Chloride 0.9% Flush (Ns Flush) (09/17/17 20:15) Creatine Kinase (Cpk) (09/18/17 00:30) Creatine Kinase (Cpk) (09/18/17 06:30) Troponin I (09/18/17 00:30) Troponin I (09/18/17 06:30) Electrocardiogram (09/18/17 20:01) Electrocardiogram (09/19/17 02:01) Heparin Inj (Heparin Inj) (09/17/17 20:15) Inpatient Certification (09/17/17 ) Case Management Consult (09/17/17 ) Aspirin Chew (Aspirin Chew) (09/17/17 20:15) Vital Signs (Adult) Q15MX4,Q4H (09/17/17 20:05) Hospital Insurance Clerk / Telemetry COSME.Q8H (09/17/17 20:05) Cardiac Rhythm COSME.Q8H (09/17/17 20:05) Notify Dr: Other (09/17/17 20:05) Diltiazem Inj (Cardizem Inj) (09/17/17 20:15) Acetazolamide (Diamox) (09/17/17 21:00) Atorvastatin (Lipitor) (09/17/17 21:00) Budeson-Formot 160-4.5 Mcg Inh (Symbicor (09/17/17 21:00) Calcium Acetate (Phoslo) (09/18/17 09:00) Digoxin (Lanoxin) (09/18/17 09:00) Diltiazem Cd (Cardizem Cd) (09/18/17 09:00) Ipratropium Hfa Inh (Atrovent Hfa Inh) (09/17/17 20:15) Metoprolol Tartrate (Lopressor) (09/17/17 20:15) Potassium Chloride (Kcl) (09/18/17 09:00) Rivaroxaban (Xarelto) (09/18/17 09:00) Tamsulosin (Flomax) (09/18/17 09:00) Torsemide (Demadex) (09/18/17 09:00) Digoxin (09/17/17 20:08) Complete Blood Count With Diff (09/18/17 06:00) Basic Metabolic Panel (Bmp) (09/18/17 06:00) Labs Laboratory Tests Test 09/17/17 18:30 White Blood Count 9.8 TH/MM3 Red Blood Count 3.70 MIL/MM3 Hemoglobin 10.6 GM/DL Hematocrit 32.3 % Mean Corpuscular Volume 87.3 FL Mean Corpuscular Hemoglobin 28.5 PG Mean Corpuscular Hemoglobin Concent 32.7 % Red Cell Distribution Width 20.9 % Platelet Count 338 TH/MM3 Mean Platelet Volume 7.2 FL Neutrophils (%) (Auto) 80.2 % Lymphocytes (%) (Auto) 10.6 % Monocytes (%) (Auto) 8.0 % Eosinophils (%) (Auto) 0.7 % Basophils (%) (Auto) 0.5 % Neutrophils # (Auto) 7.9 TH/MM3 Lymphocytes # (Auto) 1.0 TH/MM3 Monocytes # (Auto) 0.8 TH/MM3 Eosinophils # (Auto) 0.1 TH/MM3 Basophils # (Auto) 0.1 TH/MM3 CBC Comment DIFF FINAL Differential Comment Blood Urea Nitrogen 58 MG/DL Creatinine 1.31 MG/DL Random Glucose 119 MG/DL Calcium Level 9.1 MG/DL Sodium Level 142 MEQ/L Potassium Level 3.2 MEQ/L Chloride Level 97 MEQ/L Carbon Dioxide Level 37.1 MEQ/L Anion Gap 8 MEQ/L Estimat Glomerular Filtration Rate 55 ML/MIN Total Creatine Kinase 34 U/L Troponin I 0.11 NG/ML MDM Medical Decision Making Medical Screen Exam Complete: Yes Emergency Medical Condition: Yes Medical Record Reviewed: Yes Differential Diagnosis Atrial fibrillation with RVR, atrial flutter, SVT, sinus tachycardia Narrative Course 61-year-old male who is sent here for evaluation of tachycardia. Patient was signed out to Dr. Coyle. Nicolas Pearson Sep 17, 2017 19:13
[2017-09-17] MEDS ORDERED: DILTIAZEM HCL 25 MG/5 ML VIAL IV PUSH ONE (19:15)
[2017-09-17 19:17] LABS: BICARBONATE 37.1 MEQ/L (21.0-32.0); CALCIUM 9.1 MG/DL (8.5-10.1); CREATININE 1.31 MG/DL (0.60-1.30); TROPONIN I 0.11 NG/ML (0.02-0.05)
[2017-09-17] MEDS ORDERED: DILTIAZEM HCL 25 MG/5 ML VIAL IV ONE (19:30)
[2017-09-17 19:32] VITALS: BP 98/70; PULSE 138; RESP 16; O2SAT 100
[2017-09-17] MEDS ORDERED: DILTIAZEM HCL 30 MG TAB PO ONE (20:00)
[2017-09-17] MEDS ORDERED: LORazepam 2 MG/ML VIAL IV PUSH ONE (20:00)
[2017-09-17] MEDS ORDERED: SODIUM CHLORIDE 0.9% FLUSH 10 ML FLUSH IV FLUSH PRN (20:15)
[2017-09-17] MEDS ORDERED: RESP: IPRATROPIUM 0.5 MG/2.5 ML NEB INH PRN (20:15)
[2017-09-17] MEDS ORDERED: ASPIRIN 81 MG CHEW TAB CHEW ONE (20:15)
[2017-09-17 20:26] VITALS: BP 110/54; PULSE 135; RESP 20; O2SAT 100
[2017-09-17 21:00] LABS: DIGOXIN 1.1 NG/ML (0.8-2.0)
[2017-09-17] MEDS: SODIUM CHLORIDE 0.9% FLUSH 10 ML FLUSH IV FLUSH SCH (21:00)
[2017-09-17] MEDS: acetaZOLAMIDE 125 MG TAB PO SCH (21:00)
[2017-09-17] MEDS: BUDESONIDE-FORMOTEROL 160/4.5 MCG INHALER INH SCH (21:00)
[2017-09-17 22:00] VITALS: BP 124/74; PULSE 134; PULSE 135; TEMP 98.5; O2SAT 97
[2017-09-17] MEDS: D5-1/2 NS + KCL 20 MEQ INJ 1,000 ML IV SCH (22:19)
[2017-09-17] MEDS: ATORVASTATIN 40 MG TAB PO SCH (22:20)
[2017-09-17] MEDS: DILTIAZEM INJ 125 MG in SODIUM CHLORIDE 0.9% INJ 100 ML IV PRN (22:20)
[2017-09-17] MEDS: METOPROLOL TARTRATE 50 MG TAB PO SCH (22:21)
[2017-09-17] MEDS: HEPARIN SODIUM - SQ 10,000 UNITS/ML VIAL SQ SCH (22:21)
[2017-09-18] VITALS (26 sets, daily range): BP systolic 94–130; BP diastolic 48–78; PULSE 66–106; RESP 16–18; TEMP 98.2–98.5; O2SAT 90–97
[2017-09-18 03:43] LABS: TROPONIN I 0.1 NG/ML (0.02-0.05)
--- NOTE | 2017-09-18 04:52 | HHI.HP ---
HPI Service [facility] Primary Care Physician Unknown Admission Diagnosis afib RVR Diagnoses: Chief Complaint: elevated heart rate Travel History International Travel<30 Days: No Contact w/Intl Traveler <30 Da: No Traveled to Known Affected Are: No History of Present Illness 61-year-old male with history of atrial fibrillation s/p 3 failed ablations, anticoagulated on Xarelto, HTN, HLD, COPD, DENIS on CPAP, CHF (Echo 09/07/17 with EF 55%), alcohol abuse, presents after being sent from [facility] for elevated heart rate. The patient was recently hospitalized 09/05/17-09/15/17 for CHF exacerbation and acute hypercapnic respiratory failure requiring 3 days of intubation. He denies missing any medications at the rehab facility that he is aware of however he states he is just given a handful of his meds and he takes them all at once, not knowing which meds he's taking. He denies any delay of medications at the facility. He states today he was told his heart rate was in the 140s and therefore he was sent to the ED via [facility]. He denies ever having any chest pain, palpitations, or shortness of breath. He denies any recent fevers/chills, cough, congestion, abdominal pain, nausea/vomiting, or diarrhea. Since his arrival, he has been started on a IV Cardizem drip and his heart rate has improved, currently in the 70s on telemetry. He continues to have no medical complaints. Review of Systems Except as stated in HPI: all other systems reviewed are Neg Past Family Social History Past Medical History atrial fibrillation s/p 3 failed ablations, anticoagulated on Xarelto HTN HLD COPD DENIS on CPAP CHF (Echo 09/07/17 with EF 55%) Past Surgical History Appendectomy Cardiac ablations x3 Tonsillectomy Right arm ORIF Reported Medications [resp] Applic .XX HS CPAP Machine for use when sleeping Walker/Adult/Folding (Device) 1 Mis Mis Ea .ROUTE DIRECTED Novolog Inj (Insulin Aspart) 100 Unit/Ml Inj 1 Injection SQ ACHS 30 Days Senna-Lax (Sennosides) 8.6 Mg Tab 17.2 Mg PO Q12H PRN 30 Days Klor-Con 8 (Potassium Chloride) 8 Meq Tab 8 Meq PO DAILY 30 Days [Albuterol-Ipratropium Neb] 1 AMPULE Nebu 1 Ampule NEB Q4HR PRN 30 Days Demadex (Torsemide) 20 Mg Tab 40 Mg PO DAILY 30 Days Calcium Acetate (Calcium Acetate (Phosphate Bin) 667 Mg Cap 667 Mg PO TID 30 Days Acetazolamide 125 Mg Tab 125 Mg PO BID 30 Days Diltiazem CD 24 HR 240 Mg Caper 240 Mg PO DAILY 30 Days Flomax (Tamsulosin HCl) 0.4 Mg Cap 0.4 Mg PO DAILY 30 Days Xarelto (Rivaroxaban) 15 Mg Tab 15 Mg PO DAILY 30 Days Digoxin 0.125 Mg Tab 0.125 Mg PO DAILY Lopressor (Metoprolol Tartrate) 50 Mg Tab 100 Mg PO Q8H Ventolin Hfa 18 GM Inh (Albuterol Sulfate) 90 Mcg/Act Aer 1 Puff INH Q4H PRN Atrovent HFA 12.9 GM Inh (Ipratropium [place]) 17 Mcg/Act Aer 2 Puff INH Q6HR PRN Symbicort Inh (Budesonide/Formoterol Fumarate) 160-4.5 Mcg/Act Aero 2 Puff INH Q12HR Atorvastatin (Atorvastatin Calcium) 40 Mg Tab 40 Mg PO HS Allergies: Coded Allergies: No Known Allergies (Unverified Allergy, Unknown, 08/16/17) Active Ordered Medications Current Medications Medications (Trade) Dose Ordered Sig/Delilah Route Start Time Stop Time Status Last Admin Potassium Chloride/Dextrose/ Sod Cl 1,000 ml @ 75 mls/hr [id number] IV 09/17/17 21:00 09/17/17 22:19 (NS Flush) 2 ml BID IV FLUSH 09/17/17 21:00 09/17/17 21:00 (NS Flush) 2 ml UNSCH PRN IV FLUSH 09/17/17 20:15 (Heparin Inj) 5,000 units Q8H SQ 09/17/17 21:00 09/17/17 22:21 Diltiazem HCl 125 mg/Sodium Chloride 125 ml @ 5 mls/hr TITRATE PRN IV 09/17/17 20:15 09/17/17 22:20 (Diamox) 125 mg BID PO 09/17/17 21:00 09/17/17 21:00 (Lipitor) 40 mg HS PO 09/17/17 21:00 09/17/17 22:20 (Symbicort 160-4.5 Mcg Inh) 2 puff Q12HR INH 09/17/17 21:00 09/17/17 21:00 (Phoslo) 667 mg TID PO 09/18/17 09:00 (Lanoxin) 0.125 mg DAILY PO 09/18/17 09:00 (Cardizem Cd) 240 mg DAILY PO 09/18/17 09:00 (Atrovent Neb) 0.5 mg Q6HR NEB PRN INH 09/17/17 20:15 (Lopressor) 100 mg Q8H PO 09/17/17 22:00 09/17/17 22:21 (KCl) 8 meq DAILY PO 09/18/17 09:00 (Xarelto) 15 mg DAILY PO 09/18/17 09:00 (Flomax) 0.4 mg DAILY PO 09/18/17 09:00 (Demadex) 40 mg DAILY PO 09/18/17 09:00 Family History Father with diabetes Mother with heart disease Social History Denies any prior tobacco use however with significant second hand smoke exposure , worked in a [employer] for 8+ years Drinks alcohol, 3-4 liquor beverages nightly Occasional marijuana use Denies any other illicit drug use Physical Exam Vital Signs Vital Signs Date Time Temp Pulse Resp B/P (MAP) Pulse Ox O2 Delivery O2 Flow Rate FiO2 09/18/17 03:35 66 09/18/17 02:00 68 09/18/17 01:15 95 09/18/17 00:19 98.4 73 94/73 (80) 96 09/18/17 00:00 106 09/17/17 22:20 135 124/74 09/17/17 22:00 98.5 135 124/74 (91) 97 09/17/17 22:00 134 09/17/17 20:26 135 20 110/54 (72) 100 Nasal Cannula 2.00 09/17/17 19:32 138 16 98/70 (79) 100 Nasal Cannula 2.00 09/17/17 18:49 140 19 120/82 (95) 100 Room Air 09/17/17 18:22 98.2 132 18 123/79 94 98 Physical Exam GENERAL: Well-nourished, well-developed obese male patient, in NAD. SKIN: No rashes, ecchymoses or lesions. Cool and dry. HEAD: Atraumatic. Normocephalic. No temporal or scalp tenderness. EYES: Pupils equal round and reactive. Extraocular motions intact. No scleral icterus. No injection or drainage. ENT: Nose without bleeding, purulent drainage or septal hematoma. Airway patent. NECK: Trachea midline. No JVD or lymphadenopathy. CARDIOVASCULAR: Irregularly irregular rate and rhythm without murmurs, gallops, or rubs. RESPIRATORY: Clear to auscultation. Breath sounds equal bilaterally. No wheezes , rales, or rhonchi. GASTROINTESTINAL: Abdomen soft, non-tender, nondistended. No hepato-splenomegaly , or palpable masses. No guarding. MUSCULOSKELETAL: Chronic bilateral lymphedema without any significant pitting edema. NEUROLOGICAL: Awake and alert. No obvious cranial nerve deficits. Motor and sensory grossly within normal limits. Normal speech. Laboratory Laboratory Tests Test 09/17/17 18:30 09/18/17 02:40 White Blood Count 9.8 Red Blood Count 3.70 Hemoglobin 10.6 Hematocrit 32.3 Mean Corpuscular Volume 87.3 Mean Corpuscular Hemoglobin 28.5 Mean Corpuscular Hemoglobin Concent 32.7 Red Cell Distribution Width 20.9 Platelet Count 338 Mean Platelet Volume 7.2 Neutrophils (%) (Auto) 80.2 Lymphocytes (%) (Auto) 10.6 Monocytes (%) (Auto) 8.0 Eosinophils (%) (Auto) 0.7 Basophils (%) (Auto) 0.5 Neutrophils # (Auto) 7.9 Lymphocytes # (Auto) 1.0 Monocytes # (Auto) 0.8 Eosinophils # (Auto) 0.1 Basophils # (Auto) 0.1 CBC Comment DIFF FINAL Differential Comment Blood Urea Nitrogen 58 Creatinine 1.31 Random Glucose 119 Calcium Level 9.1 Sodium Level 142 Potassium Level 3.2 Chloride Level 97 Carbon Dioxide Level 37.1 Anion Gap 8 Estimat Glomerular Filtration Rate 55 Total Creatine Kinase 34 24 Troponin I 0.11 0.10 Digoxin Level 1.1 Result Diagram: 09/17/17182909/17/171829 Imaging Last Impressions Chest X-Ray 09/17/171827 Signed Impressions: Service Date/Time: September 18:34 - CONCLUSION: Clear lungs. MD Christ De La Vega VTE Risk Assessment Caprinaugust VTE Risk Assessment: Mod/High Risk (score >= 2) Caprini Risk Assessment Model Point Value = 1 Point Value = 2 Point Value = 3 Point Value = 5 Age 41-60 Minor surgery BMI > 25 kg/m2 Swollen legs Varicose veins or History of unexplained or recurrent spontaneous Oral contraceptives or hormone replacement Sepsis (< 1 month) Serious lung disease, including pneumonia (< 1 month) Abnormal pulmonary function Acute myocardial infarction Congestive heart failure (< 1 month) History of inflammatory bowel disease Medical patient at bed rest Age 61-74 Arthroscopic surgery Major open surgery (> 45 min) Laparoscopic surgery (> 45 min) Malignancy Confined to bed (> 72 hours) Immobilizing plaster cast Central venous access Age >= 75 History of VTE Family history of VTE Factor V Leiden Prothrombin [id number] Lupus anticoagulant Anticardiolipin antibodies Elevated serum homocysteine Heparin-induced thrombocytopenia Other congenital or acquired thrombophilia Stroke (< 1 month) Elective arthroplasty Hip, pelvis, or leg fracture Acute spinal cord injury (< 1 month) Prophylaxis Regimen Total Risk Factor Score Risk Level Prophylaxis Regimen 0-1 Low Early ambulation 2 Moderate Order ONE of the following: *Sequential Compression Device (SCD) *Heparin 5000 units SQ BID 3-4 Higher Order ONE of the following medications: *Heparin 5000 units SQ TID *Enoxaparin/Lovenox 40 mg SQ daily (WT < 150 kg, CrCl > 30 mL/min) *Enoxaparin/Lovenox 30 mg SQ daily (WT < 150 kg, CrCl > 10-29 mL/min) *Enoxaparin/Lovenox 30 mg SQ BID (WT < 150 kg, CrCl > 30 mL/min) AND/OR *Sequential Compression Device (SCD) 5 or more Highest Order ONE of the following medications: *Heparin 5000 units SQ TID (Preferred with Epidurals) *Enoxaparin/Lovenox 40 mg SQ daily (WT < 150 kg, CrCl > 30 mL/min) *Enoxaparin/Lovenox 30 mg SQ daily (WT < 150 kg, CrCl > 10-29 mL/min) *Enoxaparin/Lovenox 30 mg SQ BID (WT < 150 kg, CrCl > 30 mL/min) AND *Sequential Compression Device (SCD) Assessment and Plan Problem List: (1) Atrial fibrillation with RVR ICD Code: I48.91 - Unspecified atrial fibrillation Assessment and Plan 61-year-old male with history of atrial fibrillation s/p 3 failed ablations, anticoagulated on Xarelto, HTN, HLD, COPD, DENIS on CPAP, CHF (Echo 09/07/17 with EF 55%), alcohol abuse, presents after being sent from [facility] for elevated heart rate. The patient was recently hospitalized 09/05/17-09/15/17 for CHF exacerbation and acute hypercapnic respiratory failure requiring 3 days of intubation. Atrial Fibrillation with RVR: patient sent from [facility] for HR 140s. Started on IV Cardizem drip, HR now well controlled in 70s -Continue on IV Cardizem drip for now, can likely transition to patient's po cardizem in am -Continue patient's xarelto (renally dosed), metoprolol, and digoxin -Check digoxin level -Monitor on telemetry in [facility] CHF/HTN/HLD: chronic, last Echo 09/07/17 with EF 55%. No significant signs of fluid overload on exam. CXR images reviewed and unremarkable. -continue patient's torsemide 40mg daily, acetazolamide 125mg bid, metoprolol , digoxin, statin COPD: chronic, does not appear to be in exacerbation. No wheezing on exam -continue patient's Symbicort and duonebs prn DENIS: patient diagnosed with DENIS on previous admission, responded well to CPAP -continue CPAP at night during hospitalization BPH: chronic -continue patient's Flomax DVT Prophylaxis: on Xarelto Discussed Condition With Patient, [facility] RN, Dr. Blair Physician Certification 2 Midnight Certification Type: Admission for Inpatient Services Order for Inpatient Services The services are ordered in accordance with Medicare regulations or non- Medicare payer requirements, as applicable. In the case of services not specified as inpatient-only, they are appropriately provided as inpatient services in accordance with the 2-midnight benchmark. Estimated LOS (days): 2 days is the estimated time the patient will need to remain in the hospital, assuming treatment plan goals are met and no additional complications. Post-Hospital Plan: [facility] Vera Wilson PA-C Sep 18, 2017 4:52 am
[2017-09-18] MEDS: METOPROLOL TARTRATE 50 MG TAB PO SCH ×3 (06:04→21:28)
[2017-09-18] MEDS: HEPARIN SODIUM - SQ 10,000 UNITS/ML VIAL SQ SCH ×2 (06:04→13:42)
--- NOTE | 2017-09-18 06:49 | PD ---
Physical Exam Date Seen by Provider: Sep 17, 2017 Time Seen by Provider: 19:30 Narrative Patient is given a bolus of 25 of Cardizem with good results then he is put on Cardizem drip 5 mg an hour his troponin was mildly elevated he's been giving aspirin and we will admit to telemetry for observation of his A. fib RVR as well as the possible mild ischemia from the tachycardia patient is stable report is given to Dr. Blair hospitalist Data Data Last Documented VS Vital Signs Date Time Temp Pulse Resp B/P (MAP) Pulse Ox O2 Delivery O2 Flow Rate FiO2 09/17/17 19:32 138 16 98/70 (79) 100 Nasal Cannula 2.00 09/17/17 18:22 98.2 Orders Orders Electrocardiogram (09/17/17 18:28) Complete Blood Count With Diff (09/17/17 18:28) Basic Metabolic Panel (Bmp) (09/17/17 18:28) Ckmb (Isoenzyme) Profile (09/17/17 18:28) Troponin I (09/17/17 18:28) Chest, Single Ap (09/17/17 18:28) Iv Access Insert/Monitor (09/17/17 18:28) Ecg Monitoring (09/17/17 18:28) Oxygen Administration (09/17/17 18:28) Oximetry (09/17/17 18:28) Diltiazem Inj (Cardizem Inj) (09/17/17 19:15) Diet Heart Healthy (09/17/17 Dinner) Diltiazem Inj (Cardizem Inj) (09/17/17 19:30) Diltiazem (Cardizem) (09/17/17 20:00) Lorazepam Inj (Ativan Inj) (09/17/17 20:00) Admit To Inpatient (09/17/17 ) Vital Signs (Adult) Q4H (09/17/17 20:01) Activity Bed Rest With Brp (09/17/17 ) Drophammer Operator / Telemetry COSME.Q8H (09/17/17 20:01) D5-1/2 Ns + Kcl 20 Meq Inj (D5-1/2 Ns + (09/17/17 21:00) Sodium Chloride 0.9% Flush (Ns Flush) (09/17/17 21:00) Sodium Chloride 0.9% Flush (Ns Flush) (09/17/17 20:15) Creatine Kinase (Cpk) (09/18/17 00:30) Creatine Kinase (Cpk) (09/18/17 06:30) Troponin I (09/18/17 00:30) Troponin I (09/18/17 06:30) Electrocardiogram (09/18/17 20:01) Electrocardiogram (09/19/17 02:01) Heparin Inj (Heparin Inj) (09/17/17 21:00) Inpatient Certification (09/17/17 ) Case Management Consult (09/17/17 ) Aspirin Chew (Aspirin Chew) (09/17/17 20:15) Vital Signs (Adult) Q15MX4,Q4H (09/17/17 20:05) Drophammer Operator / Telemetry COSME.Q8H (09/17/17 20:05) Cardiac Rhythm COSME.Q8H (09/17/17 20:05) Notify Dr: Other (09/17/17 20:05) Diltiazem Inj (Cardizem Inj) (09/17/17 20:15) Acetazolamide (Diamox) (09/17/17 21:00) Atorvastatin (Lipitor) (09/17/17 21:00) Budeson-Formot 160-4.5 Mcg Inh (Symbicor (09/17/17 21:00) Calcium Acetate (Phoslo) (09/18/17 09:00) Digoxin (Lanoxin) (09/18/17 09:00) Diltiazem Cd (Cardizem Cd) (09/18/17 09:00) Metoprolol Tartrate (Lopressor) (09/17/17 22:00) Potassium Chloride (Kcl) (09/18/17 09:00) Rivaroxaban (Xarelto) (09/18/17 09:00) Tamsulosin (Flomax) (09/18/17 09:00) Torsemide (Demadex) (09/18/17 09:00) Complete Blood Count With Diff (09/18/17 06:00) Basic Metabolic Panel (Bmp) (09/18/17 06:00) Admit Order (Ed Use Only) (09/17/17 20:22) Digoxin (09/17/17 18:30) Ipratropium Neb (Atrovent Neb) (09/17/17 20:15) Labs Laboratory Tests Test 09/17/17 18:30 White Blood Count 9.8 TH/MM3 Red Blood Count 3.70 MIL/MM3 Hemoglobin 10.6 GM/DL Hematocrit 32.3 % Mean Corpuscular Volume 87.3 FL Mean Corpuscular Hemoglobin 28.5 PG Mean Corpuscular Hemoglobin Concent 32.7 % Red Cell Distribution Width 20.9 % Platelet Count 338 TH/MM3 Mean Platelet Volume 7.2 FL Neutrophils (%) (Auto) 80.2 % Lymphocytes (%) (Auto) 10.6 % Monocytes (%) (Auto) 8.0 % Eosinophils (%) (Auto) 0.7 % Basophils (%) (Auto) 0.5 % Neutrophils # (Auto) 7.9 TH/MM3 Lymphocytes # (Auto) 1.0 TH/MM3 Monocytes # (Auto) 0.8 TH/MM3 Eosinophils # (Auto) 0.1 TH/MM3 Basophils # (Auto) 0.1 TH/MM3 CBC Comment DIFF FINAL Differential Comment Blood Urea Nitrogen 58 MG/DL Creatinine 1.31 MG/DL Random Glucose 119 MG/DL Calcium Level 9.1 MG/DL Sodium Level 142 MEQ/L Potassium Level 3.2 MEQ/L Chloride Level 97 MEQ/L Carbon Dioxide Level 37.1 MEQ/L Anion Gap 8 MEQ/L Estimat Glomerular Filtration Rate 55 ML/MIN Total Creatine Kinase 34 U/L Troponin I 0.11 NG/ML Digoxin Level 1.1 NG/ML MDM Supervised Visit with TOMASA: Yes Interpretation(s) Initial EKG is rapid A. fib versus a flutter due to the regularity and it is in a ratio of 2-1 -- Diagnosis Primary Impression: Atrial fibrillation with RVR Admitting Information Admitting Physician Requests: Admit Patient Instructions: Advance Directives (GEN) Xavier Coyle MD Sep 18, 2017 06:49
[2017-09-18 07:05] LABS: AUTOMATED NEUTROPHIL # 7.2 TH/MM3 (1.8-7.7); BASOPHIL % 0.1 % (0.0-2.0); EOSINOPHIL # 0.1 TH/MM3 (0-0.4); EOSINOPHIL % 1.3 % (0.0-4.0); HEMATOCRIT 30.5 % (39.0-51.0); HEMOGLOBIN 9.7 GM/DL (13.0-17.0); LYMPH % 12.2 % (9.0-44.0); LYMPHOCYTE # 1.1 TH/MM3 (1.0-4.8); MEAN CELL VOLUME 88.2 FL (80.0-100.0); MEAN CORPUSCULAR HGB CONC 31.8 % (32.0-36.0); MEAN PLATELET VOLUME 7.4 FL (7.0-11.0); MONO % 7.8 % (0.0-8.0); MONOCYTE # 0.7 TH/MM3 (0-0.9); NEUT % 78.6 % (16.0-70.0); PLATELET COUNT 293 TH/MM3 (150-450); RED BLOOD COUNT 3.46 MIL/MM3 (4.50-5.90); RED CELL DISTRIBUTION WIDTH 21.2 % (11.6-17.2); WHITE BLOOD COUNT 9.2 TH/MM3 (4.0-11.0)
[2017-09-18 07:25] LABS: BICARBONATE 36.7 MEQ/L (21.0-32.0); CALCIUM 8.8 MG/DL (8.5-10.1); CREATININE 1.13 MG/DL (0.60-1.30)
[2017-09-18 07:28] LABS: TROPONIN I 0.09 NG/ML (0.02-0.05)
[2017-09-18] MEDS: BUDESONIDE-FORMOTEROL 160/4.5 MCG INHALER INH SCH ×2 (09:00→21:29)
[2017-09-18] MEDS: SODIUM CHLORIDE 0.9% FLUSH 10 ML FLUSH IV FLUSH SCH ×2 (09:00→21:00)
[2017-09-18] MEDS: DIGOXIN 0.125 MG TAB PO SCH (10:14)
[2017-09-18] MEDS: acetaZOLAMIDE 125 MG TAB PO SCH ×2 (10:14→21:28)
[2017-09-18] MEDS: DILTIAZEM-CD 240 MG CAP ER PO SCH (10:14)
[2017-09-18] MEDS: TAMSULOSIN HCL 0.4 MG CAP PO SCH (10:14)
[2017-09-18] MEDS: RIVAROXABAN 15 MG TAB PO SCH (10:15)
[2017-09-18] MEDS: TORSEMIDE 20 MG TAB PO SCH (10:15)
[2017-09-18] MEDS: POTASSIUM CHLORIDE 8 MEQ CONTROLLED RELEASE TAB PO SCH (10:15)
[2017-09-18] MEDS: CALCIUM ACETATE 667 MG CAP PO SCH ×3 (10:16→18:57)
--- NOTE | 2017-09-18 11:26 | HHI.PR ---
Subjective Remarks Follow-up Aki palomino with RVR 09/28/17-patient seen and examined; reports some shortness of breath however denies any chest pain. Objective Vitals Vital Signs Date Time Temp Pulse Resp B/P (MAP) Pulse Ox O2 Delivery O2 Flow Rate FiO2 09/18/17 10:00 81 09/18/17 09:00 84 09/18/17 08:00 80 09/18/17 07:00 80 09/18/17 07:00 73 16 125/67 (86) 97 09/18/17 06:13 75 09/18/17 04:32 72 09/18/17 04:30 98.2 76 117/48 (71) 97 09/18/17 03:35 66 09/18/17 02:00 68 09/18/17 01:15 95 09/18/17 00:19 98.4 73 94/73 (80) 96 09/18/17 00:00 106 09/17/17 22:20 135 124/74 09/17/17 22:00 98.5 135 124/74 (91) 97 09/17/17 22:00 134 09/17/17 20:26 135 20 110/54 (72) 100 Nasal Cannula 2.00 09/17/17 19:32 138 16 98/70 (79) 100 Nasal Cannula 2.00 09/17/17 18:49 140 19 120/82 (95) 100 Room Air 09/17/17 18:22 98.2 132 18 123/79 (94) 98 I/O 09/17/17 09/17/17 09/17/17 09/18/17 09/18/17 09/18/17 07:00 15:00 23:00 07:00 15:00 23:00 Intake Total 240 ml Output Total 700 ml Balance -460 ml Intake Oral 240 ml Output Urine Total 700 ml Result Diagram: 09/18/1728 09/18/1728 Imaging Last Impressions Chest X-Ray 09/17/178 Signed Impressions: Service Date/Time: September 18:34 - CONCLUSION: Clear lungs. Burt Anderson MD Objective Remarks GENERAL: NAD SKIN: Warm and dry. HEAD: Normocephalic. EYES: No scleral icterus. No injection or drainage. NECK: Supple, trachea midline. No JVD or lymphadenopathy. CARDIOVASCULAR: irreg Regular rate and rhythm without murmurs, gallops, or rubs. RESPIRATORY: Breath sounds equal bilaterally. No accessory muscle use. GASTROINTESTINAL: Abdomen soft, non-tender, nondistended. MUSCULOSKELETAL: No cyanosis' Trace edema BLE. BACK: Nontender without obvious deformity. No CVA tenderness. A/P Problem List: (1) Atrial fibrillation with RVR ICD Code: I48.91 - Unspecified atrial fibrillation Assessment and Plan 61-year-old man with Atrial Fibrillation with RVR: -Continue on IV Cardizem drip -Continue Xarelto, metoprolol, and digoxin -Consult Cardiology CHF/HTN/HLD: chronic, last Echo 09/07/17 with EF 55%. No significant signs of fluid overload on exam. CXR unremarkable. -continue torsemide 40mg daily, acetazolamide 125mg bid, metoprolol, digoxin , statin COPD: chronic -continue Symbicort and Duo nebs prn DENIS: -continue CPAP HS BPH: chronic -continue Flomax DVT Prophylaxis: on Hemal Knowles MD Sep 18, 2017 11:26
[2017-09-18] MEDS ORDERED: POTASSIUM CHLORIDE 10 MEQ CONTROLLED RELEASE TAB PO ONE (11:30)
[2017-09-18] MEDS: D5-1/2 NS + KCL 20 MEQ INJ 1,000 ML IV SCH ×2 (13:41→23:27)
[2017-09-18] MEDS: DILTIAZEM INJ 125 MG in SODIUM CHLORIDE 0.9% INJ 100 ML IV PRN (13:58)
[2017-09-18] MEDS: ATORVASTATIN 40 MG TAB PO SCH (21:28)
--- NOTE | 2017-09-18 21:54 | EKG ---
Date Performed: 09/18/2017 Time Performed: 02:55:58 PTAGE: 61 years EKG: Sinus rhythm with aberrantly conducted supraventricular complexes Right bundle branch block Inferior/lateral ST-T changes may be due to myocardial ischemia Abnormal ECG PREVIOUS TRACING : 09/17/2017 22.54 Compared to prior tracing no significant change DOCTOR: Steven Huitron Interpretating Date/Time 09/18/2017 21:53:57
--- NOTE | 2017-09-18 22:14 | EKG ---
Date Performed: 09/17/2017 Time Performed: 22:54:42 PTAGE: 61 years EKG: Atrial fibrillation RVH with secondary repolarization abnormality Extensive ST-T changes ma y be due to hypertrophy and/or ischemia Abnormal ECG PREVIOUS TRACING : 09/17/2017 18.30 Compared to prior tracing no significant change DOCTOR: Steven Huitron Interpretating Date/Time 09/18/2017 22:13:39
--- NOTE | 2017-09-18 22:45 | EKG ---
Date Performed: 09/17/2017 Time Performed: 18:30:34 PTAGE: 61 years EKG: ATRIAL FLUTTER/TACHYCARDIA WITH RAPID VENTRICULAR RESPONSE INCOMPLETE RIGHT BUNDLE BRANCH B LOCK NONSPECIFIC ST & T-WAVE ABNORMALITY ABNORMAL ECG PREVIOUS TRACING : 09/07/2017 15.27 Compared to prior tracing no significant change DOCTOR: Steven Huitron Interpretating Date/Time 09/18/2017 22:45:29
[2017-09-19] VITALS (29 sets, daily range): BP systolic 101–121; BP diastolic 51–67; PULSE 67–91; RESP 20–24; TEMP 97.6–99; O2SAT 94–98
[2017-09-19] MEDS: METOPROLOL TARTRATE 50 MG TAB PO SCH ×3 (05:52→20:23)
[2017-09-19 07:21] LABS: BICARBONATE 34.7 MEQ/L (21.0-32.0); CREATININE 1.16 MG/DL (0.60-1.30)
[2017-09-19] MEDS: RIVAROXABAN 15 MG TAB PO SCH (08:46)
[2017-09-19] MEDS: DIGOXIN 0.125 MG TAB PO SCH (08:47)
[2017-09-19] MEDS: TORSEMIDE 20 MG TAB PO SCH (08:47)
[2017-09-19] MEDS: POTASSIUM CHLORIDE 8 MEQ CONTROLLED RELEASE TAB PO SCH (08:48)
[2017-09-19] MEDS: DILTIAZEM-CD 240 MG CAP ER PO SCH (08:48)
[2017-09-19] MEDS: CALCIUM ACETATE 667 MG CAP PO SCH ×3 (08:48→18:40)
[2017-09-19] MEDS: TAMSULOSIN HCL 0.4 MG CAP PO SCH (08:49)
[2017-09-19] MEDS: acetaZOLAMIDE 125 MG TAB PO SCH ×2 (08:49→20:18)
[2017-09-19] MEDS: BUDESONIDE-FORMOTEROL 160/4.5 MCG INHALER INH SCH ×2 (08:50→20:18)
[2017-09-19] MEDS: SODIUM CHLORIDE 0.9% FLUSH 10 ML FLUSH IV FLUSH SCH ×2 (08:50→20:18)
[2017-09-19] MEDS: D5-1/2 NS + KCL 20 MEQ INJ 1,000 ML IV SCH (12:58)
[2017-09-19] MEDS ORDERED: LORazepam 0.5 MG TAB PO PRN (15:00)
--- NOTE | 2017-09-19 18:27 | HHI.PR ---
Subjective Remarks 61M readmitted from Rehab for A Fib. Today he says he feels better. It was discussed with him that some of his medications were not given to him at his SNF. He is unhappy with the SNF experience and requests to go home instead of rehab. We discussed safety and his pattern of readmissions. Objective Vitals Vital Signs Date Time Temp Pulse Resp B/P (MAP) Pulse Ox O2 Delivery O2 Flow Rate FiO2 09/19/17 17:54 2.00 09/19/17 15:05 97.8 91 24 101/51 (68) 96 09/19/17 15:00 74 09/19/17 14:00 76 09/19/17 13:00 78 09/19/17 12:02 97.8 73 24 108/63 (78) 96 09/19/17 12:00 76 09/19/17 11:01 74 09/19/17 10:00 72 09/19/17 09:00 68 09/19/17 08:00 68 09/19/17 07:45 97.6 67 20 121/65 (83) 09/19/17 07:00 68 09/19/17 06:00 78 09/19/17 05:00 72 09/19/17 04:00 74 09/19/17 03:25 75 20 116/67 (83) 98 09/19/17 03:00 76 09/19/17 02:00 72 09/19/17 01:00 72 09/19/17 00:00 76 09/18/17 23:30 87 16 109/66 (80) 95 09/18/17 23:00 75 09/18/17 22:00 78 09/18/17 21:00 72 09/18/17 20:00 98.5 74 18 122/66 (84) 94 09/18/17 20:00 72 09/18/17 19:00 70 I/O 09/18/17 09/18/17 09/18/17 09/19/17 09/19/17 09/19/17 07:00 15:00 23:00 07:00 15:00 23:00 Intake Total 240 ml 360 ml 1655 ml 965 ml Output Total 700 ml 1775 ml 950 ml Balance -460 ml -1415 ml 705 ml 965 ml Intake Oral 240 ml 360 ml 400 ml IV Total 1255 ml 965 ml Output Urine Total 700 ml 1775 ml 950 ml Result Diagram: 09/18/17 0528 09/19/17 0619 Objective Remarks GENERAL: Well-nourished, obese, short winded SKIN: Warm and dry. HEAD: Normocephalic. EYES: No scleral icterus. No injection or drainage. NECK: Supple, trachea midline. No JVD or lymphadenopathy. CARDIOVASCULAR: Regular rate and rhythm without murmurs, gallops, or rubs. RESPIRATORY: Breath sounds equal bilaterally. No accessory muscle use. GASTROINTESTINAL: Abdomen soft, non-tender, nondistended. MUSCULOSKELETAL: No cyanosis, or edema. BACK: Nontender without obvious deformity. No CVA tenderness. EXTREMITIES: Chronic LE Edema, with small wounds A/P Problem List: (1) Atrial fibrillation with RVR ICD Code: I48.91 - Unspecified atrial fibrillation (2) Sleep apnea ICD Code: G47.30 - Sleep apnea, unspecified (3) CHF (congestive heart failure) ICD Code: I50.9 - Heart failure, unspecified Status: Chronic Assessment and Plan Atrial Fibrillation with RVR Converted this morning, discontinued Cardizem Drip Continue Xarelto, metoprolol, and digoxin Cardiology consult pending h/o CHF EF 55% on ECHO from Aug 2017 Continue Tosemide 40mg daily, Acetazolamide 125 BID, metoprolol, digoxin, statin h/o COPD Chronic, no acute changes Continue Duonebs prn, symbicort daily Obstructive Sleep Apnea His CPAP really improves his overall energy BPH Continue Flomax DVT Prophylaxis Xarelto Discharge Planning Patient today has a level of distrust with Rehab, I am giving him time to consider another rehab, but as of this morning he prefers home Bola Conteh MD Sep 19, 2017 18:27
[2017-09-19] MEDS: ATORVASTATIN 40 MG TAB PO SCH (20:18)
[2017-09-20] VITALS (18 sets, daily range): BP systolic 112–139; BP diastolic 57–72; PULSE 72–87; RESP 20–24; TEMP 97.9–98.7; O2SAT 94–97
[2017-09-20] MEDS: D5-1/2 NS + KCL 20 MEQ INJ 1,000 ML IV SCH (01:57)
[2017-09-20] MEDS: METOPROLOL TARTRATE 50 MG TAB PO SCH (06:39)
[2017-09-20] MEDS: TAMSULOSIN HCL 0.4 MG CAP PO SCH (09:06)
[2017-09-20] MEDS: DILTIAZEM-CD 240 MG CAP ER PO SCH (09:06)
[2017-09-20] MEDS: SODIUM CHLORIDE 0.9% FLUSH 10 ML FLUSH IV FLUSH SCH (09:06)
[2017-09-20] MEDS: acetaZOLAMIDE 125 MG TAB PO SCH (09:07)
[2017-09-20] MEDS: RIVAROXABAN 15 MG TAB PO SCH (09:07)
[2017-09-20] MEDS: TORSEMIDE 20 MG TAB PO SCH (09:07)
[2017-09-20] MEDS: CALCIUM ACETATE 667 MG CAP PO SCH (09:07)
[2017-09-20] MEDS: DIGOXIN 0.125 MG TAB PO SCH (09:07)
[2017-09-20] MEDS: BUDESONIDE-FORMOTEROL 160/4.5 MCG INHALER INH SCH (09:10)
[2017-09-20] MEDS: POTASSIUM CHLORIDE 8 MEQ CONTROLLED RELEASE TAB PO SCH (10:10)
--- NOTE | 2017-09-20 12:20 | HHI.FF ---
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 My clinical findings support the need for the requested home health care services because: Ltd mobility - disease progression Patient has SOB Deconditioned w/ increased weakness Med compliance is questionable Limited ability to care for self I certify that my clinical findings support that this patient is homebound because: Hx COPD- exertion dyspnea/weakness Unsteady gait/balance Unsafe to leave home unassisted Pt is established with and requests "[facility]" Bola Conteh MD Sep 20, 2017 12:20
--- NOTE | 2017-09-20 12:27 | HHI.DS ---
Discharge Summary Admission Date Sep 17, 2017 at 20:25 Discharge Date: Sep 20, 2017 Admitting Diagnosis afib RVR (1) Atrial fibrillation with RVR ICD Code: I48.91 - Unspecified atrial fibrillation (2) Sleep apnea ICD Code: G47.30 - Sleep apnea, unspecified (3) CHF (congestive heart failure) ICD Code: I50.9 - Heart failure, unspecified Status: Chronic Procedures none Brief History - From Admission 61-year-old male with history of atrial fibrillation s/p 3 failed ablations, anticoagulated on Xarelto, HTN, HLD, COPD, DENIS on CPAP, CHF (Echo 09/07/17 with EF 55%), alcohol abuse, presents after being sent from [facility] for elevated heart rate. The patient was recently hospitalized 09/05/17-09/15/17 for CHF exacerbation and acute hypercapnic respiratory failure requiring 3 days of intubation. He denies missing any medications at the rehab facility that he is aware of however he states he is just given a handful of his meds and he takes them all at once, not knowing which meds he's taking. He denies any delay of medications at the facility. He states today he was told his heart rate was in the 140s and therefore he was sent to the ED via [facility]. He denies ever having any chest pain, palpitations, or shortness of breath. He denies any recent fevers/chills, cough, congestion, abdominal pain, nausea/vomiting, or diarrhea. Since his arrival, he has been started on a IV Cardizem drip and his heart rate has improved, currently in the 70s on telemetry. He continues to have no medical complaints. CBC/BMP: 09/18/17 0528 09/19/17 0619 Significant Findings Laboratory Tests Test 09/17/17 18:30 09/18/17 02:40 09/18/17 05:28 09/19/17 06:19 Red Blood Count 3.70 MIL/MM3 (4.50-5.90) 3.46 MIL/MM3 (4.50-5.90) Hemoglobin 10.6 GM/DL (13.0-17.0) 9.7 GM/DL (13.0-17.0) Hematocrit 32.3 % (39.0-51.0) 30.5 % (39.0-51.0) Red Cell Distribution Width 20.9 % (11.6-17.2) 21.2 % (11.6-17.2) Neutrophils (%) (Auto) 80.2 % (16.0-70.0) 78.6 % (16.0-70.0) Neutrophils # (Auto) 7.9 TH/MM3 (1.8-7.7) Blood Urea Nitrogen 58 MG/DL (7-18) 52 MG/DL (7-18) 44 MG/DL (7-18) Creatinine 1.31 MG/DL (0.60-1.30) Random Glucose 119 MG/DL (74-106) 126 MG/DL (74-106) 148 MG/DL (74-106) Potassium Level 3.2 MEQ/L (3.5-5.1) 3.0 MEQ/L (3.5-5.1) Chloride Level 97 MEQ/L (98-107) Carbon Dioxide Level 37.1 MEQ/L (21.0-32.0) 36.7 MEQ/L (21.0-32.0) 34.7 MEQ/L (21.0-32.0) Estimat Glomerular Filtration Rate 55 ML/MIN (>89) 66 ML/MIN (>89) 64 ML/MIN (>89) Total Creatine Kinase 34 U/L (39-308) 24 U/L (39-308) 26 U/L (39-308) Troponin I 0.11 NG/ML (0.02-0.05) 0.10 NG/ML (0.02-0.05) 0.09 NG/ML (0.02-0.05) Mean Corpuscular Hemoglobin Concent 31.8 % (32.0-36.0) PE at Discharge GENERAL: Well-nourished, obese, short winded SKIN: Warm and dry. HEAD: Normocephalic. EYES: No scleral icterus. No injection or drainage. NECK: Supple, trachea midline. No JVD or lymphadenopathy. CARDIOVASCULAR: Regular rate and rhythm without murmurs, gallops, or rubs. RESPIRATORY: Breath sounds equal bilaterally. No accessory muscle use. GASTROINTESTINAL: Abdomen soft, non-tender, nondistended. MUSCULOSKELETAL: No cyanosis, or edema. BACK: Nontender without obvious deformity. No CVA tenderness. EXTREMITIES: Chronic LE Edema, with small wounds Hospital Course Pt was discharged 3 days ago to Rehab center, but was not given some of his home medications for atrial fibrillation there and ended up with an irrregular heartbeat that was confirmed as A Fib when he arrived into our ER two days ago. He responded favorably to the Cardizem Drip, was weaned yesterday and has maintained a regular rhythm back on his home cardiac medications. Although I suggested Rehab for maximum safety, he has a loss of rafal based on recent events that that is a safer option, and requests a discharge to home, explaining that he has a roommate, close friends, and regular visits from his home healthcare company. So at his request I am sending him home based on his request and his refusal to go to Rehab. He is breathing comfortably on room air , and has an oxygen device at home as needed. Pt Condition on Discharge: Fair Discharge Disposition: Disch w/ Home Health Serv Discharge Time: <= 30 minutes Discharge Instructions DIET: Follow Instructions for: Diabetic Diet Activities you can perform: Weight Bearing as Bola Land MD Sep 20, 2017 12:27
== END 2017-09-20 15:04 | disposition home health service (06) | DRG 310 ==
LOC: NEPE 18:13 → NEDA 20:25 → HCIS 21:35
PROVIDERS: ADMIT Family Medicine; ATTEND Family Medicine
PROC: 3E0F7GC Introduction of Other Therapeutic Substance into Respiratory Tract, Via Natural or Artificial Opening (ICD-10-PCS; principal; 2017-09-18)
DX: I48.91 Unspecified atrial fibrillation (principal); I11.0 Hypertensive heart disease with heart failure; I50.9 Heart failure, unspecified; Z99.81 Dependence on supplemental oxygen; Z79.01 Long term (current) use of anticoagulants; E78.5 Hyperlipidemia, unspecified; J44.9 Chronic obstructive pulmonary disease, unspecified; I25.10 Atherosclerotic heart disease of native coronary artery without angina pectoris; E11.9 Type 2 diabetes mellitus without complications; Z86.73 Personal history of transient ischemic attack (TIA), and cerebral infarction without residual deficits; Z79.4 Long term (current) use of insulin; F12.90 Cannabis use, unspecified, uncomplicated; G47.33 Obstructive sleep apnea (adult) (pediatric); Z77.22 Contact with and (suspected) exposure to environmental tobacco smoke (acute) (chronic); N40.0 Benign prostatic hyperplasia without lower urinary tract symptoms
CPT/HCPCS: 71045; 76937; 80048; 80162; 82550; 84484; 85025; 93005; 94618; 96374; 96375; J1644; J2060; J3480

== ENCOUNTER 2017-12-14 14:46 | Observation (INO) | payer MEDICARE, OTHER ==
[2017-12-14] VITALS (7 sets, daily range): BP systolic 125–148; BP diastolic 58–105; PULSE 82–118; RESP 16–21; TEMP 98.4–98.7; O2SAT 95–100
[~2017-12-14] VITALS: Ht 162.6 cm; Wt 202.0 kg
[2017-12-14] MEDS ORDERED: SODIUM CHLORIDE 0.9% FLUSH 10 ML FLUSH IVF PRN (15:45)
--- NOTE | 2017-12-14 15:47 | PD ---
HPI Chief Complaint: Edema Time Seen by Provider: 15:44 Travel History International Travel<30 days: No Contact w/Intl Traveler<30days: No Traveled to known affect area: No History of Present Illness HPI Patient comes emergency department complaining of bilateral lower extremity edema is getting progressively worse for the past 2 days since running out of his diuretic. Patient reports increased shortness of breath as well. Patient states that he ran out of couple of his medicines including Xarelto, but is uncertain which other ones. Patient states is similar to previous CHF exacerbation with the lower extremity edema although this time the swelling is affecting his scrotum. Denies any chest pain with this, fevers, nausea, vomiting, loss change in bowel or bladder, or headaches. Symptoms are worse with trying to walk and exert himself. Severity mild to moderate. PFSH Past Medical History Hx Anticoagulant Therapy: Yes Arthritis: No Asthma: No Atrial Fibrillation: Yes Blood Disorders: No Heart Rhythm Problems: Yes (afib) Cancer: No Cardiac Catheterization: Yes Cardiovascular Problems: Yes High Cholesterol: Yes Chest Pain: No Congestive Heart Failure: Yes COPD: Yes Cerebrovascular Accident: Yes (TIA) Coronary Artery Disease: Yes Diabetes: Yes Diminished Hearing: No Endocrine: Yes Gastrointestinal Disorders: No Genitourinary: No Hypertension: Yes Immune Disorder: No Implanted Vascular Access Dvce: No Kidney Stones: No Musculoskeletal: Yes Neurologic: Yes Psychiatric: No Reproductive: No Respiratory: Yes Integumentary: Yes (BILATERAL LOWER LEG SWELLING/SKIN ITEGRATY ISSUES cellulitis) Immunizations Current: Yes Migraines: No Renal Failure: Yes Seizures: Yes Sickle Cell Disease: No Sleep Apnea: Yes Thyroid Disease: No Past Surgical History Abdominal Surgery: Yes (appendectomy) Appendectomy: Yes Cardiac Surgery: Yes (ABLATIONS X 3 (afib)) Ear Surgery: No Endocrine Surgery: No Eye Surgery: No Genitourinary Surgery: No Gynecologic Surgery: No Neurologic Surgery: No Oral Surgery: No Thoracic Surgery: No Tonsillectomy: Yes Other Surgery: Yes (3 CARDIAC ABLATIONS) Social History Alcohol Use: No Tobacco Use: No Substance Use: Yes (marijuana) Allergies-Medications (Allergen,Severity, Reaction): Coded Allergies: No Known Allergies (Unverified Allergy, Unknown, 08/16/17) Reported Meds & Prescriptions Reported Meds & Active Scripts Active Klor-Con 8 (Potassium Chloride) 8 Meq Tab 8 Meq PO DAILY 30 Days Demadex (Torsemide) 20 Mg Tab 40 Mg PO DAILY 30 Days Calcium Acetate (Calcium Acetate (Phosphate Bin) 667 Mg Cap 667 Mg PO TID 30 Days Acetazolamide 125 Mg Tab 125 Mg PO BID 30 Days Diltiazem CD 24 HR 240 Mg Caper 240 Mg PO DAILY 30 Days Xarelto (Rivaroxaban) 15 Mg Tab 15 Mg PO DAILY 30 Days Digoxin 0.125 Mg Tab 0.125 Mg PO DAILY Lopressor (Metoprolol Tartrate) 50 Mg Tab 100 Mg PO Q8H Ventolin Hfa 18 GM Inh (Albuterol Sulfate) 90 Mcg/Act Aer 1 Puff INH Q4H PRN Atrovent HFA 12.9 GM Inh (Ipratropium [place]) 17 Mcg/Act Aer 2 Puff INH Q6HR PRN Symbicort Inh (Budesonide/Formoterol Fumarate) 160-4.5 Mcg/Act Aero 2 Puff INH Q12HR Atorvastatin (Atorvastatin Calcium) 40 Mg Tab 40 Mg PO HS Review of Systems Except as stated in HPI: all other systems reviewed are Neg Physical Exam Narrative GENERAL: Well-developed, overly nourished, in no acute distress, and non-ill appearing. SKIN: Focused skin assessment warm and dry. HEAD: Atraumatic. Normocephalic. EYES: Pupils equal and round. EOMI. No scleral icterus. No injection or drainage. ENT: No nasal bleeding or discharge. Mucous membranes pink and moist. NECK: Trachea midline. Supple. No nuclear rigidity. CARDIOVASCULAR: Regular rate and rhythm. No murmur appreciated. RESPIRATORY: No accessory muscle use. No respiratory distress. Decreased breath sounds throughout. Breath sounds equal bilaterally. GASTROINTESTINAL: Abdomen soft, non-tender, nondistended, and no guarding. Hepatic and splenic margins not palpable. No pulsatile mass. MUSCULOSKELETAL: No obvious deformities. No clubbing. No cyanosis. Anasarca with scrotal edema. Full range of motion. NEUROLOGICAL: Awake and alert. No obvious cranial nerve deficits. Motor grossly within normal limits. Normal speech. PSYCHIATRIC: Appropriate mood and affect; insight and judgment normal. Data Data Last Documented VS Vital Signs Date Time Temp Pulse Resp B/P (MAP) Pulse Ox O2 Delivery O2 Flow Rate FiO2 12/14/17 18:14 99 Room Air 12/14/17 18:12 108 21 2.00 12/14/17 14:52 98.7 Orders Orders Complete Blood Count With Diff (12/14/17 15:35) Comprehensive Metabolic Panel (12/14/17 15:35) B-Type Natriuretic Peptide (12/14/17 15:35) Act Partial Throm Time (Ptt) (12/14/17 15:35) Prothrombin Time / Inr (Pt) (12/14/17 15:35) Magnesium (Mg) (12/14/17 15:35) Ckmb (Isoenzyme) Profile (12/14/17 15:35) Troponin I (12/14/17 15:35) Iv Access Insert/Monitor (12/14/17 15:35) Electrocardiogram (12/14/17 15:35) Ecg Monitoring (12/14/17 15:35) Oximetry (12/14/17 15:35) Oxygen Administration (12/14/17 15:35) Chest, Single Ap (12/14/17 15:35) Sodium Chloride 0.9% Flush (Ns Flush) (12/14/17 15:45) Digoxin (12/14/17 15:35) Diltiazem Inj (Cardizem Inj) (12/14/17 18:00) Furosemide Inj (Lasix Inj) (12/14/17 18:00) Rivaroxaban (Xarelto) (12/14/17 18:15) Aspirin Chew (Aspirin Chew) (12/14/17 18:15) Continue Barrientos/Suprapubic Cath (12/14/17 18:12) Admit Order (Ed Use Only) (12/14/17 ) Splicing Technician / Telemetry CSOME.Q8H (12/14/17 18:16) Vital Signs (Adult) Q4H (12/14/17 18:16) Notify Dr: Other (12/14/17 18:16) Labs Laboratory Tests Test 12/14/17 16:21 White Blood Count 11.2 TH/MM3 Red Blood Count 3.22 MIL/MM3 Hemoglobin 8.2 GM/DL Hematocrit 26.7 % Mean Corpuscular Volume 83.1 FL Mean Corpuscular Hemoglobin 25.5 PG Mean Corpuscular Hemoglobin Concent 30.7 % Red Cell Distribution Width 18.3 % Platelet Count 345 TH/MM3 Mean Platelet Volume 6.8 FL Neutrophils (%) (Auto) 90.6 % Lymphocytes (%) (Auto) 3.3 % Monocytes (%) (Auto) 4.7 % Eosinophils (%) (Auto) 0.6 % Basophils (%) (Auto) 0.8 % Neutrophils # (Auto) 10.2 TH/MM3 Lymphocytes # (Auto) 0.4 TH/MM3 Monocytes # (Auto) 0.5 TH/MM3 Eosinophils # (Auto) 0.1 TH/MM3 Basophils # (Auto) 0.1 TH/MM3 CBC Comment DIFF FINAL Differential Comment Prothrombin Time 11.4 SEC Prothromb Time International Ratio 1.1 RATIO Activated Partial Thromboplast Time 22.1 SEC Blood Urea Nitrogen 29 MG/DL Creatinine 1.51 MG/DL Random Glucose 102 MG/DL Total Protein 7.0 GM/DL Albumin 3.1 GM/DL Calcium Level 8.6 MG/DL Magnesium Level 2.0 MG/DL Alkaline Phosphatase 275 U/L Aspartate Amino Transf (AST/SGOT) 43 U/L Alanine Aminotransferase (ALT/SGPT) 41 U/L Total Bilirubin 0.8 MG/DL Sodium Level 140 MEQ/L Potassium Level 3.7 MEQ/L Chloride Level 106 MEQ/L Carbon Dioxide Level 24.1 MEQ/L Anion Gap 10 MEQ/L Estimat Glomerular Filtration Rate 47 ML/MIN Total Creatine Kinase 63 U/L Troponin I 0.06 NG/ML B-Type Natriuretic Peptide 340 PG/ML Digoxin Level 1.1 NG/ML MDM Medical Decision Making Medical Screen Exam Complete: Yes Emergency Medical Condition: Yes Interpretation(s) EKG reviewed by Dr. Gilmore shows sinus tachycardia with ventricular rate actually 114. No STEMI. Differential Diagnosis CHF exacerbation, anasarca, acute coronary syndrome, metabolic disturbance, A. fib with RVR, pneumonia, medically noncompliant Narrative Course Patient seen and examined. Initial laboratory radiological studies were ordered. Once patient was moved to the room patient was able be placed on cardiac monitoring. Patient is able to be given IV Lasix as well as IV Cardizem and patient was given a dose of Xarelto along with aspirin secondary to minimally elevated troponin. Discussed patient with Dr. Gilmore, who saw and evaluated the patient is in agreement with plan of care and disposition. Discussed all findings and plan of care with the patient, who is agreeable for admission. All questions were answered. Discussed patient with hospitalist is agreeable to admit the patient. Patient remained stable throughout ED course. Physician Communication Physician Communication [id number] Power, who is agreeable to admit the patient. Diagnosis Primary Impression: CHF exacerbation Qualified Codes: I50.9 - Heart failure, unspecified Additional Impression: Anasarca Admitting Information Admitting Physician Requests: Observation Condition: Stable Maykel Sanders Dec 14, 2017 15:47
--- NOTE | 2017-12-14 16:17 | RADRPT ---
EXAM DATE/TIME: 12/14/2017 15:52 [facility] COMPARISON: CHEST SINGLE AP, September 17, 2017, 18:34. INDICATIONS : Short of breath MEDICAL HISTORY : Chronic obstructive pulmonary disease. Hypercholesterolemia, Myocardial infraction SURGICAL HISTORY : Cardiac ablation ENCOUNTER: Initial ACUITY: 1 day PAIN SCORE: 0/10 LOCATION: chest FINDINGS: The examination demonstrates moderate cardiomegaly. The lungs are clear. There is no significant pleu ral effusion. The exam appears similar to the previous dated 09/17/17. The visualized bony structures are grossly intact. CONCLUSION: 1. Cardiomegaly. Stable compared to previous dated 09/17/17 Amadeo Mckenzie MD on December 14, 2017 at 16:08 Board Certified Radiologist. This report was verified electronically.
[2017-12-14 16:54] LABS: AUTOMATED NEUTROPHIL # 10.2 TH/MM3 (1.8-7.7); BASOPHIL # 0.1 TH/MM3 (0-0.2); BASOPHIL % 0.8 % (0.0-2.0); EOSINOPHIL # 0.1 TH/MM3 (0-0.4); EOSINOPHIL % 0.6 % (0.0-4.0); HEMATOCRIT 26.7 % (39.0-51.0); HEMOGLOBIN 8.2 GM/DL (13.0-17.0); LYMPH % 3.3 % (9.0-44.0); LYMPHOCYTE # 0.4 TH/MM3 (1.0-4.8); MEAN CELL VOLUME 83.1 FL (80.0-100.0); MEAN CORPUSCULAR HEMOGLOBIN 25.5 PG (27.0-34.0); MEAN CORPUSCULAR HGB CONC 30.7 % (32.0-36.0); MEAN PLATELET VOLUME 6.8 FL (7.0-11.0); MONO % 4.7 % (0.0-8.0); MONOCYTE # 0.5 TH/MM3 (0-0.9); NEUT % 90.6 % (16.0-70.0); PLATELET COUNT 345 TH/MM3 (150-450); RED BLOOD COUNT 3.22 MIL/MM3 (4.50-5.90); RED CELL DISTRIBUTION WIDTH 18.3 % (11.6-17.2); WHITE BLOOD COUNT 11.2 TH/MM3 (4.0-11.0)
[2017-12-14 17:00] LABS: INTERNATIONAL NORMALIZED RATIO 1.1 RATIO; PROTHROMBIN TIME - PATIENT 11.4 SEC (9.8-11.6)
[2017-12-14 17:20] LABS: ALBUMIN 3.1 GM/DL (3.4-5.0); ALT (GPT) 41 U/L (12-78); AST (GOT) 43 U/L (15-37); BICARBONATE 24.1 MEQ/L (21.0-32.0); BLOOD UREA NITROGEN 29 MG/DL (7-18); CALCIUM 8.6 MG/DL (8.5-10.1); CHLORIDE 106 MEQ/L (98-107); CREATININE 1.51 MG/DL (0.60-1.30); GLOMERULAR FILTRATION RATE 47 ML/MIN (>89); GLUCOSE,RANDOM 102 MG/DL (74-106); SODIUM (NA) 140 MEQ/L (136-145); TROPONIN I 0.06 NG/ML (0.02-0.05)
[2017-12-14 17:36] LABS: ALKALINE PHOSPHATASE 275 U/L (45-117); DIGOXIN 1.1 NG/ML (0.8-2.0); TOTAL BILIRUBIN ADULT 0.8 MG/DL (0.2-1.0)
[2017-12-14] MEDS ORDERED: DILTIAZEM HCL 25 MG/5 ML VIAL IV ONE (18:00)
[2017-12-14] MEDS ORDERED: FUROSEMIDE 100 MG/10 ML VIAL IV PUSH ONE (18:00)
--- NOTE | 2017-12-14 18:04 | PD ---
Data Data Last Documented VS Vital Signs Date Time Temp Pulse Resp B/P (MAP) Pulse Ox O2 Delivery O2 Flow Rate FiO2 12/14/17 18:14 99 Room Air 12/14/17 18:12 108 21 2.00 12/14/17 14:52 98.7 Orders Orders Complete Blood Count With Diff (12/14/17 15:35) Comprehensive Metabolic Panel (12/14/17 15:35) B-Type Natriuretic Peptide (12/14/17 15:35) Act Partial Throm Time (Ptt) (12/14/17 15:35) Prothrombin Time / Inr (Pt) (12/14/17 15:35) Magnesium (Mg) (12/14/17 15:35) Ckmb (Isoenzyme) Profile (12/14/17 15:35) Troponin I (12/14/17 15:35) Iv Access Insert/Monitor (12/14/17 15:35) Electrocardiogram (12/14/17 15:35) Ecg Monitoring (12/14/17 15:35) Oximetry (12/14/17 15:35) Oxygen Administration (12/14/17 15:35) Chest, Single Ap (12/14/17 15:35) Sodium Chloride 0.9% Flush (Ns Flush) (12/14/17 15:45) Digoxin (12/14/17 15:35) Diltiazem Inj (Cardizem Inj) (12/14/17 18:00) Furosemide Inj (Lasix Inj) (12/14/17 18:00) Rivaroxaban (Xarelto) (12/14/17 18:15) Aspirin Chew (Aspirin Chew) (12/14/17 18:15) Continue Barrientos/Suprapubic Cath (12/14/17 18:12) Admit Order (Ed Use Only) (12/14/17 ) Crepe Maker / Telemetry COSME.Q8H (12/14/17 18:16) Vital Signs (Adult) Q4H (12/14/17 18:16) Notify Dr: Other (12/14/17 18:16) Labs Laboratory Tests Test 12/14/17 16:21 White Blood Count 11.2 TH/MM3 Red Blood Count 3.22 MIL/MM3 Hemoglobin 8.2 GM/DL Hematocrit 26.7 % Mean Corpuscular Volume 83.1 FL Mean Corpuscular Hemoglobin 25.5 PG Mean Corpuscular Hemoglobin Concent 30.7 % Red Cell Distribution Width 18.3 % Platelet Count 345 TH/MM3 Mean Platelet Volume 6.8 FL Neutrophils (%) (Auto) 90.6 % Lymphocytes (%) (Auto) 3.3 % Monocytes (%) (Auto) 4.7 % Eosinophils (%) (Auto) 0.6 % Basophils (%) (Auto) 0.8 % Neutrophils # (Auto) 10.2 TH/MM3 Lymphocytes # (Auto) 0.4 TH/MM3 Monocytes # (Auto) 0.5 TH/MM3 Eosinophils # (Auto) 0.1 TH/MM3 Basophils # (Auto) 0.1 TH/MM3 CBC Comment DIFF FINAL Differential Comment Prothrombin Time 11.4 SEC Prothromb Time International Ratio 1.1 RATIO Activated Partial Thromboplast Time 22.1 SEC Blood Urea Nitrogen 29 MG/DL Creatinine 1.51 MG/DL Random Glucose 102 MG/DL Total Protein 7.0 GM/DL Albumin 3.1 GM/DL Calcium Level 8.6 MG/DL Magnesium Level 2.0 MG/DL Alkaline Phosphatase 275 U/L Aspartate Amino Transf (AST/SGOT) 43 U/L Alanine Aminotransferase (ALT/SGPT) 41 U/L Total Bilirubin 0.8 MG/DL Sodium Level 140 MEQ/L Potassium Level 3.7 MEQ/L Chloride Level 106 MEQ/L Carbon Dioxide Level 24.1 MEQ/L Anion Gap 10 MEQ/L Estimat Glomerular Filtration Rate 47 ML/MIN Total Creatine Kinase 63 U/L Troponin I 0.06 NG/ML B-Type Natriuretic Peptide 340 PG/ML Digoxin Level 1.1 NG/ML MDM Supervised Visit with TOMASA: Yes Narrative Course I, Dr. Gilmore, have reviewed the advance practice practitioner's documentation and am in agreement, met with the patient face to face, made the diagnosis, and the medical decision making was done by me. *My assessment and Findings: Patient seen and examined by me in addition to Edwin Sanders, he is anasarca this, quite swollen his lower extremities and as well as his abdominal wall. Short of breath. Is fairly tachypneic when I first encountered him on the ambulance wall, his oxygen tank and run out and he is on home oxygen but his saturation was 94% on room air. He was moved to a bed expeditiously so he could be administered Lasix as well as Cardizem. His EKG does show a regular narrow rhythm but no obvious P waves and has a history of atrial fibrillation I think Cardizem is a decent starting point for him. Ultimately he will be admitted to the hospital for CHF exacerbation and anasarca Admitting Information Admitting Physician Requests: Admit Condition: Stevan Andersen MD Dec 14, 2017 18:04
[2017-12-14] MEDS ORDERED: RIVAROXABAN 15 MG TAB PO ONE (18:15)
[2017-12-14] MEDS ORDERED: ASPIRIN 81 MG CHEW TAB PO ONE (18:15)
[2017-12-14] MEDS ORDERED: SODIUM CHLORIDE 0.9% FLUSH 10 ML FLUSH IV FLUSH PRN (18:30)
[2017-12-14] MEDS ORDERED: NALOXONE HCL 0.4 MG/ML AMP IV PUSH PRN (18:30)
[2017-12-14 20:16] LABS: BACTERIA, URINE MANY /hpf; BILIRUBIN, URINE NEG (NEG); BLOOD, URINE NEG (NEG); GLUCOSE,URINE NEG (NEG); HYALINE CAST, URINE 5 /lpf (RARE); KETONE, URINE NEG (NEG); NITRITE,URINE NEG (NEG); PH, URINE 5.5 (5.0-8.5); SQUAMOUS EPITHELIAL CELL URINE <1 /hpf (0-5); URINE COLOR YELLOW (YELLW/STRAW); URINE LEUKOCYTE ESTERASE NEG (NEG)
--- NOTE | 2017-12-14 20:25 | HHI.HP ---
[facility] Unknown Admission Diagnosis CHF exacerbation, anasarca Diagnoses: Travel History International Travel<30 Days: No Contact w/Intl Traveler <30 Da: No Traveled to Known Affected Are: No History of Present Illness 61-year-old male with history of atrial fibrillation s/p 3 failed ablations, anticoagulated on Xarelto, HTN, HLD, COPD, DENIS on CPAP, CHF (Echo 09/07/17 with EF 55%) and alcohol abuse since the emergency department for evaluation of scrotal edema and shortness of breath. The patient states that for the past 3- 4 days he has been out of his Lasix, which correlates with when his bilateral lower extremities and scrotum began to swell. He also reports that he ran out of his Xarelto last night and has been 7 days without his diltiazem. The patient states that he was unable to make it to be seen by his primary care provider and that's why he is out of medications. He denies any chest pain. No fever/chills. No abdominal pain. No nausea/vomiting/diarrhea. Review of Systems Except as stated in HPI: all other systems reviewed are Neg Past Family Social History Past Medical History atrial fibrillation s/p 3 failed ablations, anticoagulated on Xarelto HTN HLD COPD DENIS on CPAP CHF (Echo 09/07/17 with EF 55%) Past Surgical History Appendectomy Cardiac ablations x3 Tonsillectomy Right arm ORIF Reported Medications Reported Meds & Active Scripts Active Klor-Con 8 (Potassium Chloride) 8 Meq Tab 8 Meq PO DAILY 30 Days Demadex (Torsemide) 20 Mg Tab 40 Mg PO DAILY 30 Days Calcium Acetate (Calcium Acetate (Phosphate Bin) 667 Mg Cap 667 Mg PO TID 30 Days Acetazolamide 125 Mg Tab 125 Mg PO BID 30 Days Diltiazem CD 24 HR 240 Mg Caper 240 Mg PO DAILY 30 Days Xarelto (Rivaroxaban) 15 Mg Tab 15 Mg PO DAILY 30 Days Digoxin 0.125 Mg Tab 0.125 Mg PO DAILY Lopressor (Metoprolol Tartrate) 50 Mg Tab 100 Mg PO Q8H Ventolin Hfa 18 GM Inh (Albuterol Sulfate) 90 Mcg/Act Aer 1 Puff INH Q4H PRN Atrovent HFA 12.9 GM Inh (Ipratropium [place]) 17 Mcg/Act Aer 2 Puff INH Q6HR PRN Symbicort Inh (Budesonide/Formoterol Fumarate) 160-4.5 Mcg/Act Aero 2 Puff INH Q12HR Atorvastatin (Atorvastatin Calcium) 40 Mg Tab 40 Mg PO HS Allergies: Coded Allergies: No Known Allergies (Unverified Allergy, Unknown, 08/16/17) Family History Father with diabetes Mother with heart disease Social History Denies any prior tobacco use however with significant second hand smoke exposure , worked in a [employer] for 8+ years Drinks alcohol, 3-4 liquor beverages nightly Occasional marijuana use Denies any other illicit drug use Physical Exam Vital Signs Vital Signs Date Time Temp Pulse Resp B/P (MAP) Pulse Ox O2 Delivery O2 Flow Rate FiO2 12/14/17 18:53 118 20 126/58 (80) 100 Nasal Cannula 2.00 12/14/17 18:21 96 2.00 12/14/17 18:14 99 Room Air 12/14/17 18:12 108 21 128/59 (82) 99 Nasal Cannula 2.00 12/14/17 16:12 82 16 148/89 (108) 95 Room Air 12/14/17 14:52 98.7 118 18 139/105 (116) 96 Physical Exam GENERAL: Obese, male sitting up in bed SKIN: No rashes, ecchymoses or lesions. Cool and dry. Chronic skin changes bilateral lower extremities. HEAD: Atraumatic. Normocephalic. No temporal or scalp tenderness. EYES: Pupils equal round and reactive. Extraocular motions intact. No scleral icterus. No injection or drainage. ENT: Nose without bleeding, purulent drainage or septal hematoma. Throat without erythema, tonsillar hypertrophy or exudate. Uvula midline. Airway patent. NECK: Trachea midline. No JVD or lymphadenopathy. Supple, nontender, no meningeal signs. CARDIOVASCULAR: Regular rate and rhythm without murmurs, gallops, or rubs. RESPIRATORY: Clear to auscultation. Breath sounds equal bilaterally. No wheezes , rales, or rhonchi. GASTROINTESTINAL: Abdomen soft, non-tender, nondistended. No hepato-splenomegaly , or palpable masses. No guarding. : Significant scrotal edema. MUSCULOSKELETAL: 2+ bilateral lower extremity edema, + anasarca NEUROLOGICAL: Awake and alert. Cranial nerves II through XII intact. Motor and sensory grossly within normal limits. Normal speech. Laboratory Laboratory Tests Test 12/14/17 16:21 12/14/17 18:32 White Blood Count 11.2 Red Blood Count 3.22 Hemoglobin 8.2 Hematocrit 26.7 Mean Corpuscular Volume 83.1 Mean Corpuscular Hemoglobin 25.5 Mean Corpuscular Hemoglobin Concent 30.7 Red Cell Distribution Width 18.3 Platelet Count 345 Mean Platelet Volume 6.8 Neutrophils (%) (Auto) 90.6 Lymphocytes (%) (Auto) 3.3 Monocytes (%) (Auto) 4.7 Eosinophils (%) (Auto) 0.6 Basophils (%) (Auto) 0.8 Neutrophils # (Auto) 10.2 Lymphocytes # (Auto) 0.4 Monocytes # (Auto) 0.5 Eosinophils # (Auto) 0.1 Basophils # (Auto) 0.1 CBC Comment DIFF FINAL Differential Comment Prothrombin Time 11.4 Prothromb Time International Ratio 1.1 Activated Partial Thromboplast Time 22.1 Blood Urea Nitrogen 29 Creatinine 1.51 Random Glucose 102 Total Protein 7.0 Albumin 3.1 Calcium Level 8.6 Magnesium Level 2.0 Alkaline Phosphatase 275 Aspartate Amino Transf (AST/SGOT) 43 Alanine Aminotransferase (ALT/SGPT) 41 Total Bilirubin 0.8 Sodium Level 140 Potassium Level 3.7 Chloride Level 106 Carbon Dioxide Level 24.1 Anion Gap 10 Estimat Glomerular Filtration Rate 47 Total Creatine Kinase 63 Troponin I 0.06 B-Type Natriuretic Peptide 340 Digoxin Level 1.1 Result Diagram: 12/14/17 1621 12/14/17 1621 Caprini VTE Risk Assessment Caprini VTE Risk Assessment: Mod/High Risk (score >= 2) Caprini Risk Assessment Model Point Value = 1 Point Value = 2 Point Value = 3 Point Value = 5 Age 41-60 Minor surgery BMI > 25 kg/m2 Swollen legs Varicose veins or History of unexplained or recurrent spontaneous Oral contraceptives or hormone replacement Sepsis (< 1 month) Serious lung disease, including pneumonia (< 1 month) Abnormal pulmonary function Acute myocardial infarction Congestive heart failure (< 1 month) History of inflammatory bowel disease Medical patient at bed rest Age 61-74 Arthroscopic surgery Major open surgery (> 45 min) Laparoscopic surgery (> 45 min) Malignancy Confined to bed (> 72 hours) Immobilizing plaster cast Central venous access Age >= 75 History of VTE Family history of VTE Factor V Leiden Prothrombin [id number] Lupus anticoagulant Anticardiolipin antibodies Elevated serum homocysteine Heparin-induced thrombocytopenia Other congenital or acquired thrombophilia Stroke (< 1 month) Elective arthroplasty Hip, pelvis, or leg fracture Acute spinal cord injury (< 1 month) Prophylaxis Regimen Total Risk Factor Score Risk Level Prophylaxis Regimen 0-1 Low Early ambulation 2 Moderate Order ONE of the following: *Sequential Compression Device (SCD) *Heparin 5000 units SQ BID 3-4 Higher Order ONE of the following medications: *Heparin 5000 units SQ TID *Enoxaparin/Lovenox 40 mg SQ daily (WT < 150 kg, CrCl > 30 mL/min) *Enoxaparin/Lovenox 30 mg SQ daily (WT < 150 kg, CrCl > 10-29 mL/min) *Enoxaparin/Lovenox 30 mg SQ BID (WT < 150 kg, CrCl > 30 mL/min) AND/OR *Sequential Compression Device (SCD) 5 or more Highest Order ONE of the following medications: *Heparin 5000 units SQ TID (Preferred with Epidurals) *Enoxaparin/Lovenox 40 mg SQ daily (WT < 150 kg, CrCl > 30 mL/min) *Enoxaparin/Lovenox 30 mg SQ daily (WT < 150 kg, CrCl > 10-29 mL/min) *Enoxaparin/Lovenox 30 mg SQ BID (WT < 150 kg, CrCl > 30 mL/min) AND *Sequential Compression Device (SCD) Assessment and Plan Assessment and Plan Assessment/plan: 1. CHF exacerbation/scrotal edema/SOB BNP mildly elevated at 340 Chest x-ray negative for acute process, personally reviewed IV Lasix Restarted home medications 2. Elevated troponin Initial troponin elevated at 0.06, baseline for the patient EKG showed sinus tachycardia with a right bundle branch block, personally reviewed. No ST segment elevation or depression. Serial troponins/EKGs 3. Atrial fibrillation Restarted home Xarelto, metoprolol Telemetry 4. COPD/DENIS DuoNeb's CPAP Supplemental oxygen as needed 5. Hypertension/hyperlipidemia Continue home medications 6. CORIN BUN/creatinine 12/10.51, baseline 1.1 Avoid IV fluid hydration secondary to volume overload Monitor renal function FEN Heart healthy diet Electrolytes: Monitor and replete when necessary Lilliana Caal MD Dec 14, 2017 20:25
[2017-12-14] MEDS ORDERED: RESP: ALBUTEROL 2.5 MG/IPRATROPIUM 0.5 MG NEB (PRN) NEB (20:30)
[2017-12-14] MEDS ORDERED: POTASSIUM CHLORIDE 20 MEQ CONTROLLED RELEASE TAB PO ONE (20:30)
[2017-12-14] MEDS: BUDESONIDE-FORMOTEROL 160/4.5 MCG INHALER INH SCH (23:40)
[2017-12-14] MEDS: SODIUM CHLORIDE 0.9% FLUSH 10 ML FLUSH IV FLUSH SCH (23:41)
[2017-12-14] MEDS: ATORVASTATIN 40 MG TAB PO SCH (23:41)
[2017-12-14] MEDS: METOPROLOL TARTRATE 50 MG TAB PO SCH (23:42)
[2017-12-15] VITALS (14 sets, daily range): BP systolic 104–126; BP diastolic 55–65; PULSE 74–104; RESP 17–20; TEMP 97.7–99; O2SAT 89–100
[2017-12-15] MEDS: METOPROLOL TARTRATE 50 MG TAB PO SCH ×2 (05:21→14:42)
[2017-12-15 07:08] LABS: BASOPHIL % 0.9 % (0.0-2.0); EOSINOPHIL % 1.3 % (0.0-4.0); HEMATOCRIT 25.9 % (39.0-51.0); HEMOGLOBIN 7.8 GM/DL (13.0-17.0); LYMPH % 6.6 % (9.0-44.0); MEAN CELL VOLUME 84.8 FL (80.0-100.0); MEAN CORPUSCULAR HEMOGLOBIN 25.5 PG (27.0-34.0); MEAN CORPUSCULAR HGB CONC 30.1 % (32.0-36.0); MEAN PLATELET VOLUME 6.8 FL (7.0-11.0); MONO % 8.3 % (0.0-8.0); NEUT % 82.9 % (16.0-70.0); PLATELET COUNT 326 TH/MM3 (150-450); RED BLOOD COUNT 3.05 MIL/MM3 (4.50-5.90); RED CELL DISTRIBUTION WIDTH 18.9 % (11.6-17.2); WHITE BLOOD COUNT 8.9 TH/MM3 (4.0-11.0)
[2017-12-15 07:09] LABS: AUTOMATED NEUTROPHIL # 7.4 TH/MM3 (1.8-7.7); BASOPHIL # 0.1 TH/MM3 (0-0.2); EOSINOPHIL # 0.1 TH/MM3 (0-0.4); LYMPHOCYTE # 0.6 TH/MM3 (1.0-4.8); MONOCYTE # 0.7 TH/MM3 (0-0.9)
[2017-12-15 07:58] LABS: BICARBONATE 23.9 MEQ/L (21.0-32.0); CALCIUM 8.2 MG/DL (8.5-10.1); CREATININE 1.52 MG/DL (0.60-1.30)
[2017-12-15] MEDS: RIVAROXABAN 15 MG TAB PO SCH (09:00)
[2017-12-15] MEDS: BUDESONIDE-FORMOTEROL 160/4.5 MCG INHALER INH SCH ×2 (09:42→20:58)
[2017-12-15] MEDS: DILTIAZEM-CD 240 MG CAP ER PO SCH (09:43)
[2017-12-15] MEDS: SODIUM CHLORIDE 0.9% FLUSH 10 ML FLUSH IV FLUSH SCH ×2 (09:45→20:58)
[2017-12-15] MEDS: DIGOXIN 0.125 MG TAB PO SCH (09:45)
[2017-12-15] MEDS: FUROSEMIDE 40 MG/4 ML VIAL IV PUSH SCH ×2 (09:46→20:05)
[2017-12-15 10:08] LABS: % SATURATION IRON PROFILE 4.8 % (20-50); IRON (FE) 19 MCG/DL (65-175); TOTAL IRON BINDING CAPACITY 393 MCG/DL (250-450)
[2017-12-15 10:33] LABS: FERRITIN 43 NG/ML (26-388); FOLATE 6.9 NG/ML (3.1-17.5)
[2017-12-15] MEDS: FERROUS SULFATE 325 MG (65 MG ELEMENTAL IRON) TAB PO SCH ×2 (14:42→20:06)
--- NOTE | 2017-12-15 15:57 | HHI.PR ---
Subjective Remarks Reports generalized fatigue. SOB improving. Says that he is feeling somewhat better. Does not feel comfortable going home. Objective Vital Signs Date Time Temp Pulse Resp B/P (MAP) Pulse Ox O2 Delivery O2 Flow Rate FiO2 12/15/17 15:34 98.4 74 20 117/58 (77) 99 12/15/17 12:23 98.8 83 20 122/57 (78) 97 12/15/17 08:20 97 Nasal Cannula 2.00 12/15/17 07:41 97.8 82 20 119/61 (80) 98 12/15/17 05:17 88 20 99 12/15/17 04:31 97.7 90 18 126/65 (85) 100 12/15/17 02:55 95 12/15/17 00:12 97.9 104 18 112/55 (74) 99 12/15/17 00:01 103 12/14/17 23:03 Nasal Cannula 2.00 12/14/17 21:43 107 12/14/17 21:24 98.4 104 18 125/58 (80) 100 12/14/17 18:53 118 20 126/58 (80) 100 Nasal Cannula 2.00 12/14/17 18:21 96 2.00 12/14/17 18:14 99 Room Air 12/14/17 18:12 108 21 128/59 (82) 99 Nasal Cannula 2.00 12/14/17 16:12 82 16 148/89 (108) 95 Room Air I/O 12/14/17 12/14/17 12/14/17 12/15/17 12/15/17 12/15/17 07:00 15:00 23:00 07:00 15:00 23:00 Intake Total 472 ml Output Total 1200 ml Balance -1200 ml 472 ml Intake Oral 472 ml Output Urine Total 1200 ml Result Diagram: 12/15/1760412/15/17604 Objective Remarks GENERAL: Patient lying in bed. Appears comfortable. SKIN: Warm and dry. HEAD: Normocephalic. EYES: No scleral icterus. No injection or drainage. NECK: Supple, trachea midline. No JVD. CARDIOVASCULAR: Regular rate and rhythm without murmurs, gallops, or rubs. RESPIRATORY: Breath sounds equal bilaterally. No accessory muscle use. GASTROINTESTINAL: Abdomen soft, non-tender, nondistended. MUSCULOSKELETAL: No cyanosis. 3+ bilateral lower extremity edema. Scrotal edema. No erythema. BACK: Nontender without obvious deformity. No CVA tenderness. A/P Assessment and Plan //CHF exacerbation/scrotal edema/SOB BNP mildly elevated at 340 Chest x-ray negative for acute process, personally reviewed = Continue with Barrientos. IV Lasix. Fluid restrictions //Elevated troponin Initial troponin elevated at 0.06, baseline for the patient EKG showed sinus tachycardia with a right bundle branch block, personally reviewed. No ST segment elevation or depression. Serial troponins/EKGs = Follow-up troponin //Atrial fibrillation Restarted home Xarelto, metoprolol Telemetry //COPD/DENIS DuoNeb's CPAP Supplemental oxygen as needed // Hypertension/hyperlipidemia Continue home medications // CORIN BUN/creatinine 29/1.51, baseline 1.1 Avoid IV fluid hydration secondary to volume overload Monitor renal function //Anemia. Hemoglobin 7.8. No signs of bleeding. This is chronic. Likely dilutional secondary to CHF exacerbation. Will follow. FEN Heart healthy diet Electrolytes: Monitor and replete when necessary Xarelto Discharge Planning Hopefully discharge in the next 24-48 hours. PT recommends rehab. Castillo Lorenzo MD Dec 15, 2017 15:57
--- NOTE | 2017-12-15 16:46 | EKG ---
Date Performed: 12/14/2017 Time Performed: 15:50:29 PTAGE: 62 years EKG: SINUS TACHYCARDIA RIGHT BUNDLE BRANCH BLOCK Since previous tracing, no significant change n oted ABNORMAL ECG PREVIOUS TRACING : 09/18/2017 02.55 DOCTOR: Elias Julian Interpretating Date/Time 12/15/2017 16:43:44
[2017-12-15] MEDS: ATORVASTATIN 40 MG TAB PO SCH (20:58)
[2017-12-15] MEDS: METOPROLOL TARTRATE 25 MG TAB PO SCH (22:00)
[2017-12-16] VITALS (16 sets, daily range): BP systolic 107–142; BP diastolic 54–87; PULSE 58–91; RESP 16–20; TEMP 97–98.8; O2SAT 88–100
[2017-12-16] MEDS ORDERED: LORazepam 2 MG/ML VIAL IV PUSH PRN ×4
[2017-12-16] MEDS ORDERED: LORazepam 1 MG TAB PO PRN
[2017-12-16] MEDS ORDERED: FLUMAZENIL 0.5 MG/5 ML VIAL IV PUSH PRN
[2017-12-16] MEDS: ONDANSETRON HCL 4 MG/2 ML VIAL IV PUSH PRN ×2 (01:06→16:48)
[2017-12-16] MEDS: LORazepam 2 MG TAB PO PRN ×2 (01:06→14:53)
[2017-12-16] MEDS: METOPROLOL TARTRATE 25 MG TAB PO SCH ×3 (05:55→22:00)
[2017-12-16 07:04] LABS: HEMOGLOBIN 7.6 GM/DL (13.0-17.0); MEAN CORPUSCULAR HGB CONC 30.5 % (32.0-36.0); MEAN PLATELET VOLUME 7.2 FL (7.0-11.0); PLATELET COUNT 336 TH/MM3 (150-450); RED BLOOD COUNT 2.94 MIL/MM3 (4.50-5.90); RED CELL DISTRIBUTION WIDTH 18.7 % (11.6-17.2); WHITE BLOOD COUNT 10.2 TH/MM3 (4.0-11.0)
[2017-12-16 07:27] LABS: ALBUMIN 2.7 GM/DL (3.4-5.0); BICARBONATE 26.4 MEQ/L (21.0-32.0); CALCIUM 8.4 MG/DL (8.5-10.1); CREATININE 1.52 MG/DL (0.60-1.30); MAGNESIUM 2.3 MG/DL (1.5-2.5)
[2017-12-16 08:25] LABS: BANDS 2 % (0-6); LYMPHOCYTES 9 % (9-44); MONOCYTES 11 % (0-8); NEUTROPHIL # MANUAL DIFF 8.1 TH/MM3 (1.8-7.7); POLYS (SEG NEUTROPHILS) 77 % (16-70)
[2017-12-16] MEDS: RIVAROXABAN 15 MG TAB PO SCH (08:25)
[2017-12-16] MEDS: THIAMINE HCL 100 MG TAB PO SCH (08:25)
[2017-12-16] MEDS: FUROSEMIDE 40 MG/4 ML VIAL IV PUSH SCH ×2 (08:25→18:52)
[2017-12-16] MEDS: DILTIAZEM-CD 240 MG CAP ER PO SCH (08:25)
[2017-12-16 08:26] LABS: OVALOCYTES 1+ (NORMAL); POLYCHROMASIA 2.4 % (0.0-1.9)
[2017-12-16] MEDS: MULTIVITAMINS/MINERALS THERAPEUTIC TAB PO SCH (08:26)
[2017-12-16] MEDS: BUDESONIDE-FORMOTEROL 160/4.5 MCG INHALER INH SCH ×2 (08:26→21:55)
[2017-12-16] MEDS: SODIUM CHLORIDE 0.9% FLUSH 10 ML FLUSH IV FLUSH SCH ×2 (08:26→21:55)
[2017-12-16] MEDS: DIGOXIN 0.125 MG TAB PO SCH (08:26)
[2017-12-16] MEDS: FOLIC ACID 1 MG TAB PO SCH (08:26)
[2017-12-16] MEDS ORDERED: SODIUM CHLOR 0.9% 250 ML INJ 250 ML IV ONE (09:00)
[2017-12-16] MEDS ORDERED: SPIRONOLACTONE 25 MG TAB PO ONE (09:15)
[2017-12-16] MEDS ORDERED: CHLOROTHIAZIDE SOD 500 MG VIAL IV ONE (09:30)
--- NOTE | 2017-12-16 10:16 | RADRPT ---
EXAM DATE/TIME: 12/16/2017 09:04 [facility] COMPARISON: US ABDOMEN - LIVER, January 16, 2016, 14:25. INDICATIONS : Increased lab values. MEDICAL HISTORY : Congestive heart failure. Hypercholesterolemia. TIA. Seizures. Coronary artery disease. Afib. HTN. COPD. Sleep apnea. Dyspnea. Renal failure. MRSA. SURGICAL HISTORY : Tonsillectomy. Appendectomy. Cardiac ablations x3. Cardiac cath. Orthopedic surgery; right ankle, r ight leg, right arm. Blood transfusions. ENCOUNTER: Subsequent ACUITY: 2 days PAIN SCORE: 0/10 LOCATION: Bilateral upper quadrant MEASUREMENTS: LIVER: 25.9 cm length COMMON DUCT: 5 mm RIGHT KIDNEY: 10.6 x 4.8 x 5.3 cm SPLEEN: 13.5 cm length FINDINGS: LIVER: Marked enlargement, but homogeneous echotexture. Hepatopedal flow seen in the portal vein. COMMON DUCT: No intraluminal mass or stone visualized. GALLBLADDER: No intraluminal foci are seen. The gallbladder wall is moderately thickened measuring up to 6 mm. O n a few of the images, there is a very thin hypoechoic rim adjacent to the thickened gallbladder wall suggesting the possibility of some minimal pericholecystic fluid. PANCREAS: Not well seen. RIGHT KIDNEY: No hydronephrosis, stone or mass. CONCLUSION: 1. Marked hepatomegaly without focal lesion. 2. Abnormal appearance of the gallbladder with gallbladder wall thickening and possible mild perichol ecystic fluid. No echogenic or shadowing gallstones seen. 3. Normal dimension common hepatic duct. Gonzalez Saleh MD on December 16, 2017 at 10:11 Board Certified Radiologist. This report was verified electronically.
[2017-12-16 10:43] LABS: ALBUMIN 2.8 GM/DL (3.4-5.0); DIRECT BILIRUBIN ADULT 0.6 MG/DL (0.0-0.2)
[2017-12-16 10:45] LABS: INDIRECT BILIRUBIN 0.3 MG/DL (0.0-0.8); TOTAL BILIRUBIN ADULT 0.9 MG/DL (0.2-1.0); TOTAL PROTEIN 6.6 GM/DL (6.4-8.2)
--- NOTE | 2017-12-16 11:06 | PD.CONS ---
HPI History of Present Illness This is a 62 year old male with AF on xarelto, hx etoh abuse, COPD, CHF who presented to ER for scrotal edema and SOB. GI consulted for anemia, poss cirrhosis. Pt denies blood in stool, black tarry stool, n/v, abd pain. Stool sample visualized, is formed and brown, no blood seen. Denies known hx liver problems. He does admit etoh consumption and difficulty controlling is etoh intake with average 3-4 drinks daily but this waxes and wanes. Last had xarelto 2 -3 days ago. he has not had his diuretics in about a week. Had EGD and colonoscopy by Dr Juarez with finding GERD, gastritis, hemorrhoids. Path benign. 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 Drinks alcohol, 3-4 liquor beverages nightly Occasional marijuana use Denies any other illicit drug use (Rita Astudillo) Review of Systems Constitutional: COMPLAINS OF: Fatigue Endocrine: DENIES: Polydipsia Eyes: DENIES: Blurred vision Ears, nose, mouth, throat: DENIES: Hearing loss Respiratory: DENIES: Cough, Shortness of breath Cardiovascular: DENIES: Chest pain Gastrointestinal: DENIES: Abdominal pain, Black stools, Bloody stools, Diarrhea , Nausea, Vomiting Genitourinary: DENIES: Hematuria Musculoskeletal: COMPLAINS OF: Muscle aches Integumentary: DENIES: Jaundice Hematologic/lymphatic: DENIES: Lymphadenopathy Immunologic/allergic: DENIES: Eczema Neurologic: COMPLAINS OF: Abnormal gait Psychiatric: DENIES: Confusion (Rita Astudillo) GI Exam Vitals I&O Vital Signs Date Time Temp Pulse Resp B/P (MAP) Pulse Ox O2 Delivery O2 Flow Rate FiO2 12/16/17 07:49 97.9 79 20 107/59 (75) 95 12/16/17 05:06 98 12/16/17 04:44 97.0 86 18 123/62 (82) 88 12/16/17 03:23 83 12/16/17 03:12 Nasal Cannula 2.00 12/15/17 23:59 83 12/15/17 23:10 99.0 86 18 113/57 (75) 95 12/15/17 20:48 98.8 83 17 104/59 (74) 97 12/15/17 15:34 98.4 74 20 117/58 (77) 99 12/15/17 15:00 79 12/15/17 12:23 98.8 83 20 122/57 (78) 97 I/O 12/15/17 12/15/17 12/15/17 12/16/17 12/16/17 12/16/17 06:59 14:59 22:59 06:59 14:59 22:59 Intake Total 472 ml 240 ml Output Total 1200 ml 800 ml Balance -1200 ml 472 ml -560 ml Intake Oral 472 ml 240 ml Output Urine Total 1200 ml 800 ml Imaging Last Impressions Liver Ultrasound 12/16/17 0000 Signed Impressions: Service Date/Time: Saturday, December 16, 2017 09:04 - CONCLUSION: 1. Marked hepatomegaly without focal lesion. 2. Abnormal appearance of the gallbladder with gallbladder wall thickening and possible mild pericholecystic fluid. No echogenic or shadowing gallstones seen. 3. Normal dimension common hepatic duct. Gonzalez Saleh MD Chest X-Ray 12/14/17 1535 Signed Impressions: Service Date/Time: Thursday, December 14, 2017 15:52 - CONCLUSION: 1. Cardiomegaly. Stable compared to previous dated 09/17/17 Amadeo Mckenzie MD Laboratory Test 12/15/17 16:30 12/16/17 06:25 Troponin I 0.03 NG/ML White Blood Count 10.2 TH/MM3 Red Blood Count 2.94 MIL/MM3 Hemoglobin 7.6 GM/DL Hematocrit 25.0 % Mean Corpuscular Volume 85.0 FL Mean Corpuscular Hemoglobin 26.0 PG Mean Corpuscular Hemoglobin Concent 30.5 % Red Cell Distribution Width 18.7 % Platelet Count 336 TH/MM3 Mean Platelet Volume 7.2 FL CBC Comment AUTO DIFF Differential Total Cells Counted 100 Neutrophils % (Manual) 77 % Band Neutrophils % 2 % Lymphocytes % 9 % Monocytes % 11 % Eosinophils % 1 % Neutrophils # (Manual) 8.1 TH/MM3 Differential Comment FINAL DIFF MANUAL Platelet Estimate NORMAL Platelet Morphology Comment NORMAL Polychromasia 2.4 % Ovalocytes 1+ Blood Urea Nitrogen 35 MG/DL Creatinine 1.52 MG/DL Random Glucose 118 MG/DL Albumin 2.7 GM/DL Calcium Level 8.4 MG/DL Phosphorus Level 4.0 MG/DL Magnesium Level 2.3 MG/DL Sodium Level 141 MEQ/L Potassium Level 4.5 MEQ/L Chloride Level 107 MEQ/L Carbon Dioxide Level 26.4 MEQ/L Anion Gap 8 MEQ/L Estimat Glomerular Filtration Rate 46 ML/MIN Total Bilirubin 0.9 MG/DL Direct Bilirubin 0.6 MG/DL Indirect Bilirubin 0.3 MG/DL Aspartate Amino Transf (AST/SGOT) 25 U/L Alanine Aminotransferase (ALT/SGPT) 31 U/L Alkaline Phosphatase 216 U/L Total Protein 6.6 GM/DL Date/Time Source Procedure Growth Status 12/14/17 18:32 Urine Random Urine Urine Culture - Preliminary Group D Enterococcus Resulted Physical Examination HEENT: PERRL; normocephalic; atraumatic; no jaundice. CHEST: diminished CARDIAC: RRR ABDOMEN: Soft, obese, nontender; bowel sounds are present in all four quadrants. EXTREMITIES: No clubbing, cyanosis, significant BLE edema and venous stasis changes, scrotal edema SKIN: Normal; no rash; no jaundice. [employer]ER [employer]: No focal deficits; alert and oriented times three. (Rita Astudillo [facility]) Assessment and Plan Plan ASSESSMENT - anemia - microcytic, likely multifactorial. he is actually close to his baseline over the last year. No obvious bleeding, visualized brown formed stool had EGD and colonoscopy 05/2017 no bleeding found- GERD, gastritis, hemorrhoids, benign path. + etoh abuse. - elevated LFTs - likely 2/2 etoh. US showed hepatomegaly. 07/2017 had negative hep panel - COPD, CHF, DENIS, AF per primary PLAN - SBFT - ct abd - liver w/u - etoh cessation - monitor labs - further recs to follow pt seen by myself and Dr Oates and this note is on his behalf (Rita Astudillo) Physician Comments Seen and examined with [facility], no active bleeding. Previous gi [facility] in may last year unremarkable. Ordered CT and SBFT to complete [facility]. Discussed with Dr. Lorenzo. Thank you (Viral Oates MD) Rita Astudillo Dec 16, 2017 11:06 Viral Oates MD Dec 16, 2017 13:07
[2017-12-16] MEDS ORDERED: MAGNESIUM CITRATE SOLN 300 ML BTL PO ONE ×2 (12:00→18:00)
[2017-12-16] MEDS: FERROUS SULFATE 325 MG (65 MG ELEMENTAL IRON) TAB PO SCH ×2 (12:16→18:52)
--- NOTE | 2017-12-16 13:48 | HHI.PR ---
Subjective Remarks Patient says he is less short of breath than yesterday. Feels like he might be able to go home tomorrow. Edema is improving. Denies any bleeding. Objective Vital Signs Date Time Temp Pulse Resp B/P (MAP) Pulse Ox O2 Delivery O2 Flow Rate FiO2 12/16/17 12:37 98.7 58 20 141/87 (105) 97 12/16/17 12:27 83 12/16/17 11:04 96 21 12/16/17 08:48 74 12/16/17 07:49 97.9 79 20 107/59 (75) 95 12/16/17 05:06 98 12/16/17 04:44 97.0 86 18 123/62 (82) 88 12/16/17 03:23 83 12/16/17 03:12 Nasal Cannula 2.00 12/15/17 23:59 83 12/15/17 23:10 99.0 86 18 113/57 (75) 95 12/15/17 20:48 98.8 83 17 104/59 (74) 97 12/15/17 15:34 98.4 74 20 117/58 (77) 99 12/15/17 15:00 79 I/O 12/15/17 12/15/17 12/15/17 12/16/17 12/16/17 12/16/17 07:00 15:00 23:00 07:00 15:00 23:00 Intake Total 472 ml 240 ml Output Total 1200 ml 800 ml Balance -1200 ml 472 ml -560 ml Intake Oral 472 ml 240 ml Output Urine Total 1200 ml 800 ml Result Diagram: 12/16/1725 12/16/17624 Objective Remarks GENERAL: Patient lying in bed. Appears comfortable. Alert and oriented 3. SKIN: Warm and dry. HEAD: Normocephalic. EYES: No scleral icterus. No injection or drainage. NECK: Supple, trachea midline. No JVD. CARDIOVASCULAR: Regular rate and rhythm without murmurs, gallops, or rubs. RESPIRATORY: Breath sounds equal bilaterally. No accessory muscle use. GASTROINTESTINAL: Abdomen soft, non-tender, nondistended. MUSCULOSKELETAL: No cyanosis. 3+ bilateral lower extremity edema, slightly improved from yesterday. Scrotal edema. No erythema. BACK: Nontender without obvious deformity. No CVA tenderness. A/P Assessment and Plan //CHF exacerbation/scrotal edema/SOB BNP mildly elevated at 340 Chest x-ray negative for acute process, personally reviewed = Creatinine stable 1.52. Continue with Barrientos. IV Lasix. Fluid restrictions //Elevated troponin Initial troponin elevated at 0.06, baseline for the patient EKG showed sinus tachycardia with a right bundle branch block, personally reviewed. No ST segment elevation or depression. Serial troponins/EKGs = Follow-up troponin 0.03. Patient denies any chest pain. Likely secondary to CHF exacerbation. //Atrial fibrillation Restarted home Xarelto, metoprolol Telemetry = Stop Xarelto secondary to chronic bleed, symptomatic anemia //COPD/DENIS DuoNeb's CPAP Supplemental oxygen as needed // Hypertension/hyperlipidemia Continue home medications // CORIN BUN/creatinine 29/1.51, baseline 1.1 Avoid IV fluid hydration secondary to volume overload Monitor renal function //Symptomatic iron deficiency anemia, acute on chronic. Hemoglobin 7.8. On admission. Down to 7.6 despite diuresis. = 4/4 start on iron supplementation. GI consulted. Transfuse 1 unit PRBCs. Small bowel studies pending. FEN Heart healthy diet Electrolytes: Monitor and replete when necessary Xarelto Discharge Planning Hopefully discharge tomorrow to rehab. Stop anticoagulation.. PT recommends rehab. Castillo Lorenzo MD Dec 16, 2017 13:48
[2017-12-16] MEDS ORDERED: DIATRIZOATE MEGLUM/DIATRIZOATE SOD 9 ML CUP PO ONE (14:00)
[2017-12-16] MEDS ORDERED: IOHEXOL 350 MG/ML 10 ML VIAL (for RAD DIAG) IVCONTRAST ONE (17:56)
--- NOTE | 2017-12-16 18:07 | RADRPT ---
EXAM DATE/TIME: 12/16/2017 17:50 [facility] COMPARISON: No previous studies available for comparison. INDICATIONS : Abdomen pain. IV CONTRAST: 97 cc Omnipaque 350 (iohexol) IV ORAL CONTRAST: Prescribed oral contrast ingested. RADIATION DOSE: 35.22 CTDIvol (mGy) ; Patient body habitus MEDICAL HISTORY : Cirrhosis. Seizures. Cardiovascular diseaseHypertention. SURGICAL HISTORY : Appendectomy. ENCOUNTER: Initial ACUITY: 1 day PAIN SCALE: 4/10 LOCATION: Bilateral abdomen. TECHNIQUE: Volumetric scanning of the abdomen and pelvis was performed. Using automated exposure control and ad justment of the mA and/or kV according to patient size, radiation dose was kept as low as reasonably achievable to obtain optimal diagnostic quality images. DICOM format image data is available electro nically for review and comparison. FINDINGS: Small bilateral pleural effusions larger on the right than the left. Mild compensated cardiomegaly The liver and gallbladder are unremarkable The spleen and pancreas appear normal The adrenal glands are unremarkable There is symmetrical renal function without renal mass There is no ascites or adenopathy Pelvic contents are unremarkable. Bladder decompressed by Barrientos. Generalized anasarca Reveal bone windows reveal degenerative changes in the lumbar spine. CONCLUSION: Liver is free of focal defects Bilateral pleural effusions larger on the right. The diffusion on the right is small in size. Murtaza Mckenzie MD FACR on December 16, 2017 at 18:02 Board Certified Radiologist. This report was verified electronically.
[2017-12-16] MEDS: BISACODYL EC 5 MG TABEC PO SCH ×2 (18:52→21:54)
[2017-12-16] MEDS: ATORVASTATIN 40 MG TAB PO SCH (21:55)
[2017-12-17] VITALS (9 sets, daily range): BP systolic 115–137; BP diastolic 57–69; PULSE 65–87; RESP 16–20; TEMP 97.9–98.6; O2SAT 93–97
[2017-12-17] MEDS: METOPROLOL TARTRATE 25 MG TAB PO SCH ×3 (05:18→22:54)
[2017-12-17 07:12] LABS: AUTOMATED NEUTROPHIL # 7.2 TH/MM3 (1.8-7.7); BASOPHIL # 0.1 TH/MM3 (0-0.2); BASOPHIL % 1.3 % (0.0-2.0); EOSINOPHIL # 0.1 TH/MM3 (0-0.4); EOSINOPHIL % 1.1 % (0.0-4.0); HEMATOCRIT 26.3 % (39.0-51.0); HEMOGLOBIN 8.2 GM/DL (13.0-17.0); LYMPH % 10.5 % (9.0-44.0); MEAN CELL VOLUME 84.4 FL (80.0-100.0); MEAN CORPUSCULAR HEMOGLOBIN 26.2 PG (27.0-34.0); MEAN PLATELET VOLUME 6.7 FL (7.0-11.0); MONO % 8.7 % (0.0-8.0); MONOCYTE # 0.8 TH/MM3 (0-0.9); NEUT % 78.4 % (16.0-70.0); PLATELET COUNT 352 TH/MM3 (150-450); RED BLOOD COUNT 3.12 MIL/MM3 (4.50-5.90); RED CELL DISTRIBUTION WIDTH 18.2 % (11.6-17.2); WHITE BLOOD COUNT 9.2 TH/MM3 (4.0-11.0)
[2017-12-17 07:19] LABS: ALBUMIN 2.8 GM/DL (3.4-5.0); BICARBONATE 26.9 MEQ/L (21.0-32.0); CALCIUM 8.4 MG/DL (8.5-10.1); CREATININE 1.51 MG/DL (0.60-1.30); MAGNESIUM 2.6 MG/DL (1.5-2.5); PHOSPHORUS 4.4 MG/DL (2.5-4.9)
[2017-12-17] MEDS: DILTIAZEM-CD 240 MG CAP ER PO SCH (08:39)
[2017-12-17] MEDS: FOLIC ACID 1 MG TAB PO SCH (08:39)
[2017-12-17] MEDS: MULTIVITAMINS/MINERALS THERAPEUTIC TAB PO SCH (08:39)
[2017-12-17] MEDS: THIAMINE HCL 100 MG TAB PO SCH (08:39)
[2017-12-17] MEDS: BUDESONIDE-FORMOTEROL 160/4.5 MCG INHALER INH SCH ×2 (08:40→20:50)
[2017-12-17] MEDS: DIGOXIN 0.125 MG TAB PO SCH (08:40)
[2017-12-17] MEDS: FUROSEMIDE 40 MG/4 ML VIAL IV PUSH SCH ×2 (08:41→17:40)
[2017-12-17] MEDS: SODIUM CHLORIDE 0.9% FLUSH 10 ML FLUSH IV FLUSH SCH ×2 (08:42→20:51)
--- NOTE | 2017-12-17 10:01 | HHI.PR ---
Subjective Remarks Says he is feeling all right. Denies any chest pain shortness of breath. Edema slowly improving. Small bowel series pending this morning. Objective Vital Signs Date Time Temp Pulse Resp B/P (MAP) Pulse Ox O2 Delivery O2 Flow Rate FiO2 12/17/17 08:36 98.1 87 18 137/65 (89) 96 12/17/17 08:14 95 Nasal Cannula 3.00 12/17/17 07:42 85 12/17/17 05:16 97.9 87 18 119/64 (82) 95 12/16/17 23:36 76 18 117/54 (75) 95 12/16/17 21:50 Nasal Cannula 3.00 12/16/17 21:44 98.2 86 16 113/57 (75) 96 12/16/17 18:29 98.6 87 20 116/63 (80) 100 12/16/17 18:25 98.6 87 20 116/63 100 12/16/17 17:29 97.4 85 20 142/74 (96) 95 12/16/17 16:15 84 12/16/17 15:04 98.8 91 18 128/59 12/16/17 14:52 Nasal Cannula 3.00 12/16/17 14:43 98.1 79 18 126/70 95 12/16/17 12:37 98.7 58 20 141/87 (105) 97 12/16/17 12:27 83 12/16/17 11:04 96 21 I/O 12/16/17 12/16/17 12/16/17 12/17/17 12/17/17 12/17/17 07:00 15:00 23:00 07:00 15:00 23:00 Intake Total 240 ml 10 ml 1610 ml Output Total 800 ml 2010 ml 1000 ml Balance -560 ml 10 ml -400 ml -1000 ml Intake Oral 240 ml 1200 ml Packed Cells 400 ml Blood Product IV Normal Saline Flush 10 ml 10 ml Output Urine Total 800 ml 2010 ml 1000 ml # Bowel Movements 3 4 Result Diagram: 12/17/17 0600 12/17/17 06 Objective Remarks GENERAL: Patient lying in bed. Appears comfortable. Alert and oriented 3. SKIN: Warm and dry. HEAD: Normocephalic. EYES: No scleral icterus. No injection or drainage. NECK: Supple, trachea midline. No JVD. CARDIOVASCULAR: Regular rate and rhythm without murmurs, gallops, or rubs. RESPIRATORY: Breath sounds equal bilaterally. No accessory muscle use. GASTROINTESTINAL: Abdomen soft, non-tender, nondistended. MUSCULOSKELETAL: No cyanosis. 3+ bilateral lower extremity edema, slightly improved from yesterday. Scrotal edema. No erythema. BACK: Nontender without obvious deformity. No CVA tenderness. A/P Assessment and Plan //CHF exacerbation/scrotal edema/SOB BNP mildly elevated at 340 Chest x-ray negative for acute process, personally reviewed = Creatinine stable 1.51. Continue with Barrientos. IV Lasix. Fluid restrictions //Elevated troponin Initial troponin elevated at 0.06, baseline for the patient EKG showed sinus tachycardia with a right bundle branch block, personally reviewed. No ST segment elevation or depression. Serial troponins/EKGs = Follow-up troponin 0.03. Patient denies any chest pain. Likely secondary to CHF exacerbation. //Atrial fibrillation Restarted home Xarelto, metoprolol Telemetry = Stop Xarelto secondary to chronic bleed, symptomatic anemia //COPD/DENIS DuoNeb's CPAP Supplemental oxygen as needed // Hypertension/hyperlipidemia Continue home medications // CORIN BUN/creatinine 29/1.51, baseline 1.1 Avoid IV fluid hydration secondary to volume overload Monitor renal function //Symptomatic iron deficiency anemia, acute on chronic. Hemoglobin 7.8. On admission. Down to 7.6 despite diuresis. = 4/4 start on iron supplementation. GI consulted. Transfuse 1 unit PRBCs. Small bowel studies pending. = 4/5. Hemoglobin 8.2 after 7.6, 1 unit of blood yesterday. = No signs of acute bleeding. Continue iron FEN Heart healthy diet Electrolytes: Monitor and replete when necessary Xarelto Discharge Planning Hopefully discharge to rehab later today. Will need high-dose Lasix and fluid restrictions. PT recommends rehab. Castillo Lorenzo MD Dec 17, 2017 10:01
[2017-12-17] MEDS: FERROUS SULFATE 325 MG (65 MG ELEMENTAL IRON) TAB PO SCH ×2 (12:05→17:39)
--- NOTE | 2017-12-17 13:21 | RADRPT ---
EXAM DATE/TIME: 12/17/2017 09:43 [facility] COMPARISON: No previous studies available for comparison. INDICATIONS : Anemia. FLUORO TIME: 0 minutes IMAGE COUNT: 14 CONTRAST: Entero Vu 24% Barium Sulfate (24% w/v, 20% w/w) IMAGING TIME(S): 15 min, 30 min, 45 min, 1 hr, 1.5 hrs2, 2 1/2 MEDICAL HISTORY : Cirrhosis. Chronic obstructive pulmonary disease. Compression fracture. hypertension,seizures, a- fib, MRSA SURGICAL HISTORY : Appendectomy. cardiac ablasionsx3, ENCOUNTER: Initial ACUITY: 3 days PAIN SCORE: 0/10 LOCATION: Bilateral abdomen FINDINGS: Preliminary film is unremarkable. Examination of the small bowel demonstrates normal mucosal pattern involving the jejunum and ileum. There is no evidence of mass or obstruction. No intraluminal filling defects are identified. Contra st is present in the colon by 90 minutes.. CONCLUSION: Negative small bowel series. Gonzalez Saleh MD on December 17, 2017 at 13:17 Board Certified Radiologist. This report was verified electronically.
[2017-12-17] MEDS ORDERED: METO25TA3 PO (16:05)
[2017-12-17] MEDS ORDERED: FERR140T PO (16:05)
--- NOTE | 2017-12-17 16:09 | HHI.DS ---
Discharge Summary Admission Date Dec 14, 2017 at 18:17 Discharge Date: Dec 17, 2017 Admitting Diagnosis CHF exacerbation, anasarca (1) CHF exacerbation ICD Code: I50.9 - Heart failure, unspecified Status: Resolved (2) COPD exacerbation ICD Code: J44.1 - Chronic obstructive pulmonary disease with (acute) exacerbation Status: Resolved (3) CHF (congestive heart failure) ICD Code: I50.9 - Heart failure, unspecified Status: Chronic (4) Sleep apnea ICD Code: G47.30 - Sleep apnea, unspecified (5) GI bleed ICD Code: K92.2 - Gastrointestinal hemorrhage, unspecified Status: Acute (6) Chronic diastolic (congestive) heart failure ICD Code: I50.32 - Chronic diastolic (congestive) heart failure Status: Chronic Procedures SB series Brief History - From Admission 61-year-old male with history of atrial fibrillation s/p 3 failed ablations, anticoagulated on Xarelto, HTN, HLD, COPD, DENIS on CPAP, CHF (Echo 09/07/17 with EF 55%) and alcohol abuse since the emergency department for evaluation of scrotal edema and shortness of breath. The patient states that for the past 3- 4 days he has been out of his Lasix, which correlates with when his bilateral lower extremities and scrotum began to swell. He also reports that he ran out of his Xarelto last night and has been 7 days without his diltiazem. The patient states that he was unable to make it to be seen by his primary care provider and that's why he is out of medications. He denies any chest pain. No fever/chills. No abdominal pain. No nausea/vomiting/diarrhea. CBC/BMP: 12/17/17 0600 12/17/17 0600 Significant Findings Laboratory Tests Test 12/14/17 16:21 12/14/17 18:32 12/15/17 06:05 12/15/17 16:30 White Blood Count 11.2 TH/MM3 (4.0-11.0) Red Blood Count 3.22 MIL/MM3 (4.50-5.90) 3.05 MIL/MM3 (4.50-5.90) Hemoglobin 8.2 GM/DL (13.0-17.0) 7.8 GM/DL (13.0-17.0) Hematocrit 26.7 % (39.0-51.0) 25.9 % (39.0-51.0) Mean Corpuscular Hemoglobin 25.5 PG (27.0-34.0) 25.5 PG (27.0-34.0) Mean Corpuscular Hemoglobin Concent 30.7 % (32.0-36.0) 30.1 % (32.0-36.0) Red Cell Distribution Width 18.3 % (11.6-17.2) 18.9 % (11.6-17.2) Mean Platelet Volume 6.8 FL (7.0-11.0) 6.8 FL (7.0-11.0) Neutrophils (%) (Auto) 90.6 % (16.0-70.0) 82.9 % (16.0-70.0) Lymphocytes (%) (Auto) 3.3 % (9.0-44.0) 6.6 % (9.0-44.0) Neutrophils # (Auto) 10.2 TH/MM3 (1.8-7.7) Lymphocytes # (Auto) 0.4 TH/MM3 (1.0-4.8) 0.6 TH/MM3 (1.0-4.8) Activated Partial Thromboplast Time 22.1 SEC (24.3-30.1) Blood Urea Nitrogen 29 MG/DL (7-18) 30 MG/DL (7-18) Creatinine 1.51 MG/DL (0.60-1.30) 1.52 MG/DL (0.60-1.30) Albumin 3.1 GM/DL (3.4-5.0) Alkaline Phosphatase 275 U/L (45-117) Aspartate Amino Transf (AST/SGOT) 43 U/L (15-37) Estimat Glomerular Filtration Rate 47 ML/MIN (>89) 46 ML/MIN (>89) Troponin I 0.06 NG/ML (0.02-0.05) B-Type Natriuretic Peptide 340 PG/ML (0-100) Urine Urobilinogen 4.0 MG/DL (LESS THAN Urine Bacteria MANY /hpf (NONE) Monocytes (%) (Auto) 8.3 % (0.0-8.0) Random Glucose 116 MG/DL (74-106) Calcium Level 8.2 MG/DL (8.5-10.1) Iron Level 19 MCG/DL (65-175) Percent Iron Saturation 4.8 % (20-50) Test 12/16/17 06:25 12/17/17 06:00 Red Blood Count 2.94 MIL/MM3 (4.50-5.90) 3.12 MIL/MM3 (4.50-5.90) Hemoglobin 7.6 GM/DL (13.0-17.0) 8.2 GM/DL (13.0-17.0) Hematocrit 25.0 % (39.0-51.0) 26.3 % (39.0-51.0) Mean Corpuscular Hemoglobin 26.0 PG (27.0-34.0) 26.2 PG (27.0-34.0) Mean Corpuscular Hemoglobin Concent 30.5 % (32.0-36.0) 31.0 % (32.0-36.0) Red Cell Distribution Width 18.7 % (11.6-17.2) 18.2 % (11.6-17.2) Neutrophils % (Manual) 77 % (16-70) Monocytes % 11 % (0-8) Neutrophils # (Manual) 8.1 TH/MM3 (1.8-7.7) Polychromasia 2.4 % (0.0-1.9) Ovalocytes 1+ (NORMAL) Blood Urea Nitrogen 35 MG/DL (7-18) 34 MG/DL (7-18) Creatinine 1.52 MG/DL (0.60-1.30) 1.51 MG/DL (0.60-1.30) Random Glucose 118 MG/DL (74-106) 115 MG/DL (74-106) Albumin 2.7 GM/DL (3.4-5.0) 2.8 GM/DL (3.4-5.0) Calcium Level 8.4 MG/DL (8.5-10.1) 8.4 MG/DL (8.5-10.1) Estimat Glomerular Filtration Rate 46 ML/MIN (>89) 47 ML/MIN (>89) Direct Bilirubin 0.6 MG/DL (0.0-0.2) Alkaline Phosphatase 216 U/L (45-117) Mean Platelet Volume 6.7 FL (7.0-11.0) Neutrophils (%) (Auto) 78.4 % (16.0-70.0) Monocytes (%) (Auto) 8.7 % (0.0-8.0) Magnesium Level 2.6 MG/DL (1.5-2.5) Imaging Last Impressions Small Bowel X-Ray 12/17/17 0000 Signed Impressions: Service Date/Time: December 09:43 - CONCLUSION: Negative small bowel series. Gonzalez Saleh MD Liver Ultrasound 12/16/17 0000 Signed Impressions: Service Date/Time: Saturday, December 16, 2017 09:04 - CONCLUSION: 1. Marked hepatomegaly without focal lesion. 2. Abnormal appearance of the gallbladder with gallbladder wall thickening and possible mild pericholecystic fluid. No echogenic or shadowing gallstones seen. 3. Normal dimension common hepatic duct. Gonzalez Saleh MD Abdomen/Pelvis CT 12/16/17 0000 Signed Impressions: Service Date/Time: Saturday, December 16, 2017 17:50 - CONCLUSION: Liver is free of focal defects Bilateral pleural effusions larger on the right. The diffusion on the right is small in size. Murtaza Mckenzie MD FACR Chest X-Ray 12/14/17 1535 Signed Impressions: Service Date/Time: Thursday, December 14, 2017 15:52 - CONCLUSION: 1. Cardiomegaly. Stable compared to previous dated 09/17/17 Amadeo Mckenzie MD Hospital Course //CHF exacerbation/scrotal edema/SOB BNP mildly elevated at 340 Chest x-ray negative for acute process, personally reviewed = Creatinine stable 1.51. Continue with Barrientos. IV Lasix. Fluid restrictions //Elevated troponin Initial troponin elevated at 0.06, baseline for the patient EKG showed sinus tachycardia with a right bundle branch block, personally reviewed. No ST segment elevation or depression. Serial troponins/EKGs = Follow-up troponin 0.03. Patient denies any chest pain. Likely secondary to CHF exacerbation. //Atrial fibrillation Restarted home Xarelto, metoprolol Telemetry = Stop Xarelto secondary to chronic bleed, symptomatic anemia //COPD/DENIS DuoNeb's CPAP Supplemental oxygen as needed // Hypertension/hyperlipidemia Continue home medications // CORIN BUN/creatinine 29/1.51, baseline 1.1 Avoid IV fluid hydration secondary to volume overload Monitor renal function //Symptomatic iron deficiency anemia, acute on chronic. Hemoglobin 7.8. On admission. Down to 7.6 despite diuresis. = / start on iron supplementation. GI consulted. Transfuse 1 unit PRBCs. Small bowel studies pending. = 12/17. Hemoglobin 8.2 after 7.6, 1 unit of blood yesterday. = No signs of acute bleeding. Continue iron FEN Heart healthy diet Electrolytes: Monitor and replete when necessary Xarelto Discharge Planning Hopefully discharge to rehab later today. Will need high-dose Lasix and fluid restrictions. PT recommends rehab. Alcohol withdrawal. Still tremulous today. Start Librium, which will need to be tapered. Continue CIWA protocol. Pt Condition on Discharge: Good Discharge Disposition: Discharge to SNF Discharge Time: > 30 minutes Discharge Instructions DIET: Follow Instructions for: Heart Healthy Diet Fluid Restrictions: 1500ml Activities you can perform: Regular-No Restrictions Follow up Referrals: Gastroenterology - 1 Week with Viral Oates MD PCP Follow-up - 1 Week New Medications: Ferrous Sulfate ER (Ferrous Sulfate ER) 140 Mg (45 Mg Iron) Tab 140 MG PO BID for Nutritional Supplement, #30 TAB 0 Refills Metoprolol Tartrate (Metoprolol Tartrate) 25 Mg Tab 75 MG PO Q8HR for heart for 30 Days, TAB Continued Medications: Acetazolamide (Acetazolamide) 125 Mg Tab 125 MG PO BID for fluid overload for 30 Days, #60 TAB 0 Refills Albuterol 18 GM Inh (Ventolin Hfa 18 GM Inh) 90 Mcg/Act Aer 1 PUFF INH Q4H PRN for SHORTNESS OF BREATH, #1 INHALER 3 Refills Atorvastatin (Atorvastatin) 40 Mg Tab 40 MG PO HS for Cholesterol Management, #30 TAB 0 Refills Budesonide-Formoterol Inh (Symbicort Inh) 160-4.5 Mcg/Act Aero 2 PUFF INH Q12HR for Breathing Treatment, #1 INHALER 3 Refills Calcium Acetate (Phosphate Bin (Calcium Acetate) 667 Mg Cap 667 MG PO TID for high phosphorous for 30 Days, CAP Digoxin (Digoxin) 0.125 Mg Tab 0.125 MG PO DAILY for afib, #30 TAB Diltiazem CD 24 HR (Diltiazem CD 24 HR) 240 Mg Caper 240 MG PO DAILY for heart for 30 Days, #30 CAP Ipratropium HFA 12.9 GM Inh (Atrovent HFA 12.9 GM Inh) 17 Mcg/Act Aer 2 PUFF INH Q6HR PRN for SHORTNESS OF BREATH, #1 INHALER 3 Refills Potassium Chloride ER (Klor-Con 8) 8 Meq Tab 8 MEQ PO DAILY for CHF for 30 Days, #30 TAB Torsemide (Demadex) 20 Mg Tab 40 MG PO DAILY for water pill for 30 Days, #60 TAB Discontinued Medications: Metoprolol Tartrate (Lopressor) 50 Mg Tab 100 MG PO Q8H for afib, #90 TAB Rivaroxaban (Xarelto) 15 Mg Tab 15 MG PO DAILY for Blood Clot Prevention for 30 Days, #30 TAB 0 Refills Castillo Lorenzo MD Dec 17, 2017 16:09
[2017-12-17] MEDS: ATORVASTATIN 40 MG TAB PO SCH (20:51)
[2017-12-18] VITALS (10 sets, daily range): BP systolic 112–120; BP diastolic 51–65; PULSE 70–76; RESP 16–20; TEMP 97.4–98.2; O2SAT 84–98
[2017-12-18 05:51] LABS: BASOPHIL # 0.1 TH/MM3 (0-0.2); BASOPHIL % 1.4 % (0.0-2.0); EOSINOPHIL # 0.2 TH/MM3 (0-0.4); EOSINOPHIL % 2.5 % (0.0-4.0); HEMATOCRIT 27.7 % (39.0-51.0); HEMOGLOBIN 8.4 GM/DL (13.0-17.0); LYMPH % 11.3 % (9.0-44.0); LYMPHOCYTE # 0.9 TH/MM3 (1.0-4.8); MEAN CORPUSCULAR HEMOGLOBIN 25.7 PG (27.0-34.0); MEAN CORPUSCULAR HGB CONC 30.3 % (32.0-36.0); MEAN PLATELET VOLUME 6.7 FL (7.0-11.0); MONO % 10.2 % (0.0-8.0); MONOCYTE # 0.8 TH/MM3 (0-0.9); NEUT % 74.6 % (16.0-70.0); PLATELET COUNT 349 TH/MM3 (150-450); RED BLOOD COUNT 3.26 MIL/MM3 (4.50-5.90); RED CELL DISTRIBUTION WIDTH 18.5 % (11.6-17.2); WHITE BLOOD COUNT 8.1 TH/MM3 (4.0-11.0)
[2017-12-18] MEDS: METOPROLOL TARTRATE 25 MG TAB PO SCH ×3 (06:06→23:43)
[2017-12-18 06:16] LABS: ALBUMIN 2.9 GM/DL (3.4-5.0); BICARBONATE 27.9 MEQ/L (21.0-32.0); CALCIUM 8.5 MG/DL (8.5-10.1); CREATININE 1.61 MG/DL (0.60-1.30); MAGNESIUM 2.7 MG/DL (1.5-2.5)
[2017-12-18 06:24] LABS: PHOSPHORUS 5.7 MG/DL (2.5-4.9)
[2017-12-18] MEDS: DIGOXIN 0.125 MG TAB PO SCH (08:44)
[2017-12-18] MEDS: BUDESONIDE-FORMOTEROL 160/4.5 MCG INHALER INH SCH ×2 (08:44→23:42)
[2017-12-18] MEDS: MULTIVITAMINS/MINERALS THERAPEUTIC TAB PO SCH (08:44)
[2017-12-18] MEDS: DILTIAZEM-CD 240 MG CAP ER PO SCH (08:45)
[2017-12-18] MEDS: FOLIC ACID 1 MG TAB PO SCH (08:45)
[2017-12-18] MEDS: SODIUM CHLORIDE 0.9% FLUSH 10 ML FLUSH IV FLUSH SCH ×2 (08:45→23:43)
[2017-12-18] MEDS: FUROSEMIDE 40 MG/4 ML VIAL IV PUSH SCH ×2 (08:45→17:56)
[2017-12-18] MEDS: THIAMINE HCL 100 MG TAB PO SCH (08:46)
--- NOTE | 2017-12-18 09:45 | HHI.GIFU ---
Subjective Remarks Pt resting in bed Complaining of leg and joint pain No GI complaints at this time Can not remember if he ate breakfast this morning Denies nausea, vomiting, abdominal pain BM yesterday (Marilyn Richard) Objective Vitals I&O Vital Signs Date Time Temp Pulse Resp B/P (MAP) Pulse Ox O2 Delivery O2 Flow Rate FiO2 12/18/17 09:16 98.2 70 16 120/63 (82) 98 12/18/17 07:31 72 12/18/17 07:30 95 Nasal Cannula 3.00 12/18/17 04:55 97.7 76 16 113/62 (79) 98 12/18/17 01:24 97.9 75 16 114/65 (81) 84 12/18/17 00:32 98 21 12/17/17 23:28 82 12/17/17 21:48 97.9 65 16 121/69 (86) 95 12/17/17 21:40 97 21 12/17/17 17:01 98.2 81 20 115/68 (84) 96 12/17/17 12:41 98.6 77 20 124/57 (79) 93 I/O 12/17/17 12/17/17 12/17/17 12/18/17 12/18/17 12/18/17 07:00 15:00 23:00 07:00 15:00 23:00 Output Total 1000 ml 850 ml 350 ml 300 ml Balance -1000 ml -850 ml -350 ml -300 ml Output Urine Total 1000 ml 850 ml 350 ml 300 ml # Bowel Movements 4 Laboratory Laboratory Tests Test 12/18/17 04:56 White Blood Count 8.1 Red Blood Count 3.26 Hemoglobin 8.4 Hematocrit 27.7 Mean Corpuscular Volume 85.0 Mean Corpuscular Hemoglobin 25.7 Mean Corpuscular Hemoglobin Concent 30.3 Red Cell Distribution Width 18.5 Platelet Count 349 Mean Platelet Volume 6.7 Neutrophils (%) (Auto) 74.6 Lymphocytes (%) (Auto) 11.3 Monocytes (%) (Auto) 10.2 Eosinophils (%) (Auto) 2.5 Basophils (%) (Auto) 1.4 Neutrophils # (Auto) 6.0 Lymphocytes # (Auto) 0.9 Monocytes # (Auto) 0.8 Eosinophils # (Auto) 0.2 Basophils # (Auto) 0.1 CBC Comment DIFF FINAL Differential Comment Blood Urea Nitrogen 38 Creatinine 1.61 Random Glucose 108 Albumin 2.9 Calcium Level 8.5 Phosphorus Level 5.7 Magnesium Level 2.7 Sodium Level 138 Potassium Level 4.6 Chloride Level 102 Carbon Dioxide Level 27.9 Anion Gap 8 Estimat Glomerular Filtration Rate 43 Date/Time Source Procedure Growth Status 12/16/17 10:40 Stool Stool Stool Occult Blood (KARLA) - Final HEMOCCULT NEGATIVE Complete 12/14/17 18:32 Urine Random Urine Urine Culture - Final Enterococcus Faecalis Complete Imaging Last Impressions Small Bowel X-Ray 12/17/17 0000 Signed Impressions: Service Date/Time: December 09:43 - CONCLUSION: Negative small bowel series. Gonzalez Saleh MD Liver Ultrasound 12/16/17 0000 Signed Impressions: Service Date/Time: Saturday, December 16, 2017 09:04 - CONCLUSION: 1. Marked hepatomegaly without focal lesion. 2. Abnormal appearance of the gallbladder with gallbladder wall thickening and possible mild pericholecystic fluid. No echogenic or shadowing gallstones seen. 3. Normal dimension common hepatic duct. Gonzalez Saleh MD Abdomen/Pelvis CT 12/16/17 0000 Signed Impressions: Service Date/Time: Saturday, December 16, 2017 17:50 - CONCLUSION: Liver is free of focal defects Bilateral pleural effusions larger on the right. The diffusion on the right is small in size. Murtaza Mckenzie MD FACR Chest X-Ray 12/14/17 1535 Signed Impressions: Service Date/Time: Thursday, December 14, 2017 15:52 - CONCLUSION: 1. Cardiomegaly. Stable compared to previous dated 09/17/17 Amadeo Mckenzie MD Physical Exam HEENT: Normocephalic; atraumatic CHEST: Even/unlabored- NC CARDIAC: RRR ABDOMEN: Obese, soft, nontender, bowel sounds active SKIN: Normal; no rash; no jaundice. [employer]: No focal deficits; alert and oriented times three. (Marilyn Richard) Assessment and Plan Plan ASSESSMENT - anemia - microcytic, likely multifactorial. he is actually close to his baseline over the last year. No obvious bleeding, visualized brown formed stool had EGD and colonoscopy 05/2017 no bleeding found- GERD, gastritis, hemorrhoids, benign path. + etoh abuse. - elevated LFTs - likely 2/2 etoh. US showed hepatomegaly. 07/2017 had negative hep panel - COPD, CHF, DENIS, AF per primary (4/) Pt with no GI complaints at this time. SBFT, negative. CT abdomen and pelvis --> Liver is free of focal defects. H/H stable, last transfused 2 days ago. Currently 8.4/ 27.7. Iron and % sat low. AST now WNL. Alk phos remains elevated but trending down. Hepatitis panel negative. Rest of liver work up pending. PLAN - OK to DC from a GI standpoint - Have pt follow up with GI after discharge for liver work up Pt has been seen and examined by myself and Dr. Oates and this note is written on his behalf (Marilyn Richard) Physician Comments Seen and examined with JUNIOR, FIONA -ve. Can dc home with Gi fu. Thank you (Viral Oates MD) Marilyn Richard Dec 18, 2017 09:45 Viral Oates MD Dec 18, 2017 15:52
[2017-12-18] MEDS: FERROUS SULFATE 325 MG (65 MG ELEMENTAL IRON) TAB PO SCH ×2 (12:00→15:29)
[2017-12-18 15:10] LABS: SMOOTH MUSCLE TOTAL AUTOABS Negative (Negative)
[2017-12-18 19:18] LABS: ALPHA-1-ANTITRYPSIN 270 mg/dL (100 - 190)
--- NOTE | 2017-12-18 19:31 | HHI.PR ---
Subjective Remarks patient seen this morning. Says he is feeling all right. Denies any chest pain or shortness of breath. Objective Vital Signs Date Time Temp Pulse Resp B/P (MAP) Pulse Ox O2 Delivery O2 Flow Rate FiO2 12/18/17 18:01 97.4 73 16 113/58 (76) 96 12/18/17 13:21 98.0 76 16 120/54 (76) 96 12/18/17 09:16 98.2 70 16 120/63 (82) 98 12/18/17 08:45 Nasal Cannula 3.00 21 12/18/17 07:31 72 12/18/17 07:30 95 Nasal Cannula 3.00 12/18/17 04:55 97.7 76 16 113/62 (79) 98 12/18/17 01:24 97.9 75 16 114/65 (81) 84 12/18/17 00:32 98 21 12/17/17 23:28 82 12/17/17 21:48 97.9 65 16 121/69 (86) 95 12/17/17 21:40 97 21 I/O 12/17/17 12/17/17 12/17/17 12/18/17 12/18/17 12/18/17 07:00 15:00 23:00 07:00 15:00 23:00 Output Total 1000 ml 850 ml 350 ml 300 ml Balance -1000 ml -850 ml -350 ml -300 ml Output Urine Total 1000 ml 850 ml 350 ml 300 ml # Bowel Movements 4 Result Diagram: 12/18/17 0456 12/18/17 0456 Objective Remarks GENERAL: Patient lying in bed. Appears comfortable. Alert and oriented 3. SKIN: Warm and dry. HEAD: Normocephalic. EYES: No scleral icterus. No injection or drainage. NECK: Supple, trachea midline. No JVD. CARDIOVASCULAR: Regular rate and rhythm without murmurs, gallops, or rubs. RESPIRATORY: Breath sounds equal bilaterally. No accessory muscle use. GASTROINTESTINAL: Abdomen soft, non-tender, nondistended. MUSCULOSKELETAL: No cyanosis. 3+ bilateral lower extremity edema, very slightly improved from yesterday. Scrotal edema. No erythema. BACK: Nontender without obvious deformity. No CVA tenderness. A/P Assessment and Plan //CHF exacerbation/scrotal edema/SOB BNP mildly elevated at 340 Chest x-ray negative for acute process, personally reviewed = Creatinine stable 1.1 Continue with Barrientos. IV Lasix. Fluid restrictions //Elevated troponin Initial troponin elevated at 0.06, baseline for the patient EKG showed sinus tachycardia with a right bundle branch block, personally reviewed. No ST segment elevation or depression. Serial troponins/EKGs = Follow-up troponin 0.03. Patient denies any chest pain. Likely secondary to CHF exacerbation. //Atrial fibrillation Restarted home Xarelto, metoprolol Telemetry = Stop Xarelto secondary to chronic bleed, symptomatic anemia //COPD/DENIS DuoNeb's CPAP Supplemental oxygen as needed // Hypertension/hyperlipidemia Continue home medications // CORIN BUN/creatinine 29/1.51, baseline 1.1 Avoid IV fluid hydration secondary to volume overload Monitor renal function //Symptomatic iron deficiency anemia, acute on chronic. Hemoglobin 7.8. On admission. Down to 7.6 despite diuresis. = 4/4 start on iron supplementation. GI consulted. Transfuse 1 unit PRBCs. Small bowel studies pending. = 4/5. Hemoglobin 8.2 after 7.6, 1 unit of blood yesterday. = No signs of acute bleeding. Continue iron FEN Heart healthy diet Electrolytes: Monitor and replete when necessary hold Xarelto Discharge Planning Hopefully discharge to rehab soon. Will need high-dose Lasix and fluid restrictions. PT recommends rehab. Castillo Lorenzo MD Dec 18, 2017 19:31
[2017-12-18] MEDS: ATORVASTATIN 40 MG TAB PO SCH (23:43)
[2017-12-19 00:21] VITALS: BP 105/56; PULSE 71; RESP 20; TEMP 96.8; O2SAT 96
[2017-12-19 03:00] VITALS: BP 106/52; PULSE 70; RESP 18; TEMP 97.9; O2SAT 96
[2017-12-19 07:44] VITALS: PULSE 78
[2017-12-19] MEDS: METOPROLOL TARTRATE 25 MG TAB PO SCH ×2 (08:19→14:00)
[2017-12-19] MEDS ORDERED: AMPI500 PO (10:30)
--- NOTE | 2017-12-19 10:32 | HHI.DS ---
Discharge Summary Admission Date Dec 14, 2017 at 18:17 Discharge Date: Dec 19, 2017 Admitting Diagnosis CHF exacerbation, anasarca (1) CHF exacerbation ICD Code: I50.9 - Heart failure, unspecified Diagnosis: Principal Status: Resolved (2) COPD exacerbation ICD Code: J44.1 - Chronic obstructive pulmonary disease with (acute) exacerbation Diagnosis: Principal Status: Resolved (3) CHF (congestive heart failure) ICD Code: I50.9 - Heart failure, unspecified Status: Chronic (4) Sleep apnea ICD Code: G47.30 - Sleep apnea, unspecified (5) GI bleed ICD Code: K92.2 - Gastrointestinal hemorrhage, unspecified Status: Acute (6) Chronic diastolic (congestive) heart failure ICD Code: I50.32 - Chronic diastolic (congestive) heart failure Status: Chronic Procedures SB series Brief History - From Admission 61-year-old male with history of atrial fibrillation s/p 3 failed ablations, anticoagulated on Xarelto, HTN, HLD, COPD, DENIS on CPAP, CHF (Echo 09/07/17 with EF 55%) and alcohol abuse since the emergency department for evaluation of scrotal edema and shortness of breath. The patient states that for the past 3- 4 days he has been out of his Lasix, which correlates with when his bilateral lower extremities and scrotum began to swell. He also reports that he ran out of his Xarelto last night and has been 7 days without his diltiazem. The patient states that he was unable to make it to be seen by his primary care provider and that's why he is out of medications. He denies any chest pain. No fever/chills. No abdominal pain. No nausea/vomiting/diarrhea. CBC/BMP: 12/18/17 0456 12/18/17 0456 Significant Findings Laboratory Tests Test 12/17/17 06:00 12/18/17 04:56 Red Blood Count 3.12 MIL/MM3 (4.50-5.90) 3.26 MIL/MM3 (4.50-5.90) Hemoglobin 8.2 GM/DL (13.0-17.0) 8.4 GM/DL (13.0-17.0) Hematocrit 26.3 % (39.0-51.0) 27.7 % (39.0-51.0) Mean Corpuscular Hemoglobin 26.2 PG (27.0-34.0) 25.7 PG (27.0-34.0) Mean Corpuscular Hemoglobin Concent 31.0 % (32.0-36.0) 30.3 % (32.0-36.0) Red Cell Distribution Width 18.2 % (11.6-17.2) 18.5 % (11.6-17.2) Mean Platelet Volume 6.7 FL (7.0-11.0) 6.7 FL (7.0-11.0) Neutrophils (%) (Auto) 78.4 % (16.0-70.0) 74.6 % (16.0-70.0) Monocytes (%) (Auto) 8.7 % (0.0-8.0) 10.2 % (0.0-8.0) Blood Urea Nitrogen 34 MG/DL (7-18) 38 MG/DL (7-18) Creatinine 1.51 MG/DL (0.60-1.30) 1.61 MG/DL (0.60-1.30) Random Glucose 115 MG/DL (74-106) 108 MG/DL (74-106) Albumin 2.8 GM/DL (3.4-5.0) 2.9 GM/DL (3.4-5.0) Calcium Level 8.4 MG/DL (8.5-10.1) Magnesium Level 2.6 MG/DL (1.5-2.5) 2.7 MG/DL (1.5-2.5) Estimat Glomerular Filtration Rate 47 ML/MIN (>89) 43 ML/MIN (>89) [id number] 270 mg/dL (100 - 190) Lymphocytes # (Auto) 0.9 TH/MM3 (1.0-4.8) Phosphorus Level 5.7 MG/DL (2.5-4.9) Imaging Last Impressions Small Bowel X-Ray 12/17/17 0000 Signed Impressions: Service Date/Time: December 09:43 - CONCLUSION: Negative small bowel series. Gonzalez Saleh MD Liver Ultrasound 12/16/17 0000 Signed Impressions: Service Date/Time: Saturday, December 16, 2017 09:04 - CONCLUSION: 1. Marked hepatomegaly without focal lesion. 2. Abnormal appearance of the gallbladder with gallbladder wall thickening and possible mild pericholecystic fluid. No echogenic or shadowing gallstones seen. 3. Normal dimension common hepatic duct. Gonzalez Saleh MD Abdomen/Pelvis CT 12/16/17 0000 Signed Impressions: Service Date/Time: Saturday, December 16, 2017 17:50 - CONCLUSION: Liver is free of focal defects Bilateral pleural effusions larger on the right. The diffusion on the right is small in size. Murtaza Mckenzie MD FACR Chest X-Ray 12/14/17 1535 Signed Impressions: Service Date/Time: Thursday, December 14, 2017 15:52 - CONCLUSION: 1. Cardiomegaly. Stable compared to previous dated 09/17/17 Amadeo Mckenzie MD Pt Condition on Discharge: Stable Discharge Disposition: Discharge to SNF Discharge Time: > 30 minutes Discharge Instructions DIET: Follow Instructions for: Heart Healthy Diet Fluid Restrictions: 1500ml Activities you can perform: Regular-No Restrictions Follow up Referrals: Gastroenterology - 1 Week with Viral Oates MD PCP Follow-up - 1 Week New Medications: Ferrous Sulfate ER (Ferrous Sulfate ER) 140 Mg (45 Mg Iron) Tab 140 MG PO BID for Nutritional Supplement, #30 TAB 0 Refills Ampicillin (Ampicillin Trihydrate) 500 Mg Capsule 500 MG PO Q8HR for Infection, #21 TAB-CAP Metoprolol Tartrate (Metoprolol Tartrate) 25 Mg Tab 75 MG PO Q8HR for heart for 30 Days, TAB Continued Medications: Acetazolamide (Acetazolamide) 125 Mg Tab 125 MG PO BID for fluid overload for 30 Days, #60 TAB 0 Refills Albuterol 18 GM Inh (Ventolin Hfa 18 GM Inh) 90 Mcg/Act Aer 1 PUFF INH Q4H PRN for SHORTNESS OF BREATH, #1 INHALER 3 Refills Atorvastatin (Atorvastatin) 40 Mg Tab 40 MG PO HS for Cholesterol Management, #30 TAB 0 Refills Budesonide-Formoterol Inh (Symbicort Inh) 160-4.5 Mcg/Act Aero 2 PUFF INH Q12HR for Breathing Treatment, #1 INHALER 3 Refills Calcium Acetate (Phosphate Bin (Calcium Acetate) 667 Mg Cap 667 MG PO TID for high phosphorous for 30 Days, CAP Digoxin (Digoxin) 0.125 Mg Tab 0.125 MG PO DAILY for afib, #30 TAB Diltiazem CD 24 HR (Diltiazem CD 24 HR) 240 Mg Caper 240 MG PO DAILY for heart for 30 Days, #30 CAP Ipratropium HFA 12.9 GM Inh (Atrovent HFA 12.9 GM Inh) 17 Mcg/Act Aer 2 PUFF INH Q6HR PRN for SHORTNESS OF BREATH, #1 INHALER 3 Refills Potassium Chloride ER (Klor-Con 8) 8 Meq Tab 8 MEQ PO DAILY for CHF for 30 Days, #30 TAB Rivaroxaban (Xarelto) 15 Mg Tab 15 MG PO DAILY for Blood Clot Prevention for 30 Days, #30 TAB 0 Refills Torsemide (Demadex) 20 Mg Tab 40 MG PO DAILY for water pill for 30 Days, #60 TAB Discontinued Medications: Metoprolol Tartrate (Lopressor) 50 Mg Tab 100 MG PO Q8H for afib, #90 TAB Doug Dowell MD Dec 19, 2017 10:32
[2017-12-19] MEDS: MULTIVITAMINS/MINERALS THERAPEUTIC TAB PO SCH (10:56)
[2017-12-19] MEDS: FERROUS SULFATE 325 MG (65 MG ELEMENTAL IRON) TAB PO SCH (10:57)
[2017-12-19] MEDS: DILTIAZEM-CD 240 MG CAP ER PO SCH (10:57)
[2017-12-19] MEDS: DIGOXIN 0.125 MG TAB PO SCH (10:57)
--- NOTE | 2017-12-19 10:57 | HHI.PR ---
Subjective Remarks Denies cp/sob Afebrile Denies cough Objective Vitals Vital Signs Date Time Temp Pulse Resp B/P (MAP) Pulse Ox O2 Delivery O2 Flow Rate FiO2 12/19/17 03:00 97.9 70 18 106/52 (70) 96 12/19/17 00:21 96.8 71 20 105/56 (72) 96 12/18/17 21:21 98.2 71 20 112/51 (71) 95 12/18/17 20:51 97 Nasal Cannula 2.00 12/18/17 18:01 97.4 73 16 113/58 (76) 96 12/18/17 13:21 98.0 76 16 120/54 (76) 96 I/O 12/18/17 12/18/17 12/18/17 12/19/17 12/19/17 12/19/17 06:59 14:59 22:59 06:59 14:59 22:59 Intake Total 240 ml Output Total 350 ml 300 ml 950 ml 150 ml Balance -350 ml -300 ml -710 ml -150 ml Intake Oral 240 ml Output Urine Total 350 ml 300 ml 950 ml 150 ml Result Diagram: 12/18/17 0456 12/18/17 0456 Imaging Last Impressions Small Bowel X-Ray 12/17/17 0000 Signed Impressions: Service Date/Time: December 09:43 - CONCLUSION: Negative small bowel series. Gonzalez Saleh MD Liver Ultrasound 12/16/17 0000 Signed Impressions: Service Date/Time: Saturday, December 16, 2017 09:04 - CONCLUSION: 1. Marked hepatomegaly without focal lesion. 2. Abnormal appearance of the gallbladder with gallbladder wall thickening and possible mild pericholecystic fluid. No echogenic or shadowing gallstones seen. 3. Normal dimension common hepatic duct. Gonzalez Saleh MD Abdomen/Pelvis CT 12/16/17 0000 Signed Impressions: Service Date/Time: Saturday, December 16, 2017 17:50 - CONCLUSION: Liver is free of focal defects Bilateral pleural effusions larger on the right. The diffusion on the right is small in size. Murtaza Mckenzie MD FACR Chest X-Ray 12/14/17 8005 Signed Impressions: Service Date/Time: Thursday, December 14, 2017 15:52 - CONCLUSION: 1. Cardiomegaly. Stable compared to previous dated 09/17/17 Amadeo Mckenzie MD Objective Remarks AAOx3 Lungs clear BL with dicreased breath sounds S1S2 RRR, no MRG abdomen obese, soft, BS + chronic lymphedema in lower extremities. Procedures SB series Medications and IVs Current Medications Medications (Trade) Dose Ordered Sig/Delilah Route Start Time Stop Time Status Last Admin (NS Flush) 2 ml UNSCH PRN IV FLUSH 12/14/17 18:30 (NS Flush) 2 ml BID IV FLUSH 12/14/17 21:00 12/18/17 23:43 (Narcan Inj) 0.4 mg UNSCH PRN IV PUSH 12/14/17 18:30 (Lipitor) 40 mg HS PO 12/14/17 21:00 12/18/17 23:43 (Symbicort 160-4.5 Mcg Inh) 2 puff Q12HR INH 12/14/17 21:00 12/18/17 23:42 (Lanoxin) 0.125 mg DAILY PO 12/15/17 09:00 12/18/17 08:44 (Cardizem Cd) 240 mg DAILY PO 12/15/17 09:00 12/18/17 08:45 (Xarelto) 15 mg DAILY PO 12/15/17 09:00 Future Hold 12/16/17 08:25 (Duoneb Neb) 1 ampule Q4HR NEB PRN NEB 12/14/17 20:30 (Lasix Inj) 40 mg BID@,18 IV PUSH 12/15/17 09:00 12/18/17 17:56 (Ferrous Sulfate) 325 mg BID@ PO 12/15/17 12:00 12/18/17 15:29 (Lopressor) 75 mg Q8HR PO 12/15/17 22:00 12/19/17 08:19 (Folate) 1 mg DAILY PO 12/16/17 09:00 12/21/17 08:59 12/18/17 08:45 (Vitamin B1) 100 mg DAILY PO 12/16/17 09:00 12/18/17 08:46 (Theragran M Tab) 1 tab DAILY PO 12/16/17 09:00 12/21/17 08:59 12/18/17 08:44 (Zofran Inj) 4 mg Q6H PRN IV PUSH 12/16/17 00:00 12/16/17 16:48 (Romazicon Inj) 0.2 mg Q1M PRN IV PUSH 12/16/17 00:00 (Ativan) 1 mg Q4H PRN PO 12/16/17 00:00 (Ativan Inj) 1 mg Q4H PRN IV PUSH 12/16/17 00:00 (Ativan) 2 mg Q2H PRN PO 12/16/17 00:00 12/16/17 14:53 (Ativan Inj) 2 mg Q2H PRN IV PUSH 12/16/17 00:00 (Ativan Inj) 2 mg Q1H PRN IV PUSH 12/16/17 00:00 (Ativan Inj) 2 mg Q15M PRN IV PUSH 12/16/17 00:00 (Librium) 10 mg TID PO 12/17/17 13:00 12/18/17 17:55 (Ampicillin) 500 mg Q8HR PO 12/19/17 14:00 UNV A/P Problem List: (1) CHF exacerbation ICD Code: I50.9 - Heart failure, unspecified Status: Resolved (2) COPD exacerbation ICD Code: J44.1 - Chronic obstructive pulmonary disease with (acute) exacerbation Status: Resolved (3) CHF (congestive heart failure) ICD Code: I50.9 - Heart failure, unspecified Status: Chronic (4) Sleep apnea ICD Code: G47.30 - Sleep apnea, unspecified (5) GI bleed ICD Code: K92.2 - Gastrointestinal hemorrhage, unspecified Status: Acute (6) Chronic diastolic (congestive) heart failure ICD Code: I50.32 - Chronic diastolic (congestive) heart failure Status: Chronic Assessment and Plan 1. CHF exacerbation/scrotal edema/shortness of breath Pain team elevated at 340 Chest x-ray negative for acute process. DC IV Lasix and start oral. 2. Elevated troponin/demand ischemia EKG showed sinus tachycardia with right bundle branch block, personally reviewed by me. No ST segment elevation or depression. Patient is chest pain-free, follow-up troponin came down to 0.03. Likely demand ischemia from CHF exacerbation. 3. COPD/DENIS. Not an exacerbation at this time. Continue duo nebs, CPAP and supplemental oxygen as needed. 4. Hypertension/hyperlipidemia Blood pressure seems to be stable. Metoprolol tartrate, diltiazem. 5. CKD stage III Upon review of records the patient has had a baseline creatinine of 1.3-1.7. Creatinine at 1.61. Will recheck BMP. Creatinine likely at baseline. 6. Symptomatic anemia Likely multifactorial. Hemoglobin stable hemoglobin dropped to 7.6. Status post infusion of 1 units of packed red blood cells, GI consulted. No obvious bleeding. Status post EGD/colonoscopy on 05/2017 without any bleeding found. GERD, gastritis, hemorrhoids, benign path Iron and percent saturation low. Continue ferrous sulfate. SBFT negative. Hemoccult negative on 12/16/17. Resume Xarelto. 7. UTI Urine culture positive for Enterococcus faecalis on 12/14/17. We will start the patient ampicillin for a total of 7 days. Continue Barrientos catheter, patient may use urinal. DVT prophylaxis: SCDs, resume Xarelto. Problem Qualifiers (1) CHF exacerbation: Qualified Codes: I50.9 - Heart failure, unspecified Doug Dowell MD Dec 19, 2017 10:57
[2017-12-19] MEDS: FUROSEMIDE 40 MG/4 ML VIAL IV PUSH SCH (10:59)
[2017-12-19] MEDS: BUDESONIDE-FORMOTEROL 160/4.5 MCG INHALER INH SCH (10:59)
[2017-12-19] MEDS: THIAMINE HCL 100 MG TAB PO SCH (10:59)
[2017-12-19] MEDS: SODIUM CHLORIDE 0.9% FLUSH 10 ML FLUSH IV FLUSH SCH (10:59)
[2017-12-19] MEDS: FOLIC ACID 1 MG TAB PO SCH (10:59)
[2017-12-19 11:01] VITALS: BP 133/68; PULSE 75; RESP 18; TEMP 98.5; O2SAT 97
[2017-12-19 12:26] LABS: CALCIUM 8.7 MG/DL (8.5-10.1); CREATININE 1.38 MG/DL (0.60-1.30)
[2017-12-19] MEDS ORDERED: AMOXICILLIN (TRIHYDRATE) 500 MG CAP PO SCH (14:00)
[2017-12-19 19:53] LABS: CERULOPLASMIN 52 mg/dL (18-36)
[2017-12-20 23:51] LABS: MITOCHONDRIAL ABS LESS THAN 20.0 U (<=20.0)
== END 2017-12-19 18:34 | disposition home or self-care (01) ==
LOC: NEPC 14:46 → NEDA 18:17 → NEPGCP 19:46
PROVIDERS: ADMIT Hospitalist; ATTEND Hospitalist
DX: I50.32 Chronic diastolic (congestive) heart failure (principal); J44.1 Chronic obstructive pulmonary disease with (acute) exacerbation; I13.0 Hypertensive heart and chronic kidney disease with heart failure and stage 1 through stage 4 chronic kidney disease, or unspecified chronic kidney disease; N18.3 Chronic kidney disease, stage 3 (moderate); N17.9 Acute kidney failure, unspecified; E11.22 Type 2 diabetes mellitus with diabetic chronic kidney disease; I48.91 Unspecified atrial fibrillation; R74.0 Nonspecific elevation of levels of transaminase and lactic acid dehydrogenase [LDH]; N39.0 Urinary tract infection, site not specified; B95.2 Enterococcus as the cause of diseases classified elsewhere; I25.10 Atherosclerotic heart disease of native coronary artery without angina pectoris; G47.33 Obstructive sleep apnea (adult) (pediatric); I45.10 Unspecified right bundle-branch block; D50.9 Iron deficiency anemia, unspecified; E78.5 Hyperlipidemia, unspecified; E78.00 Pure hypercholesterolemia, unspecified; K92.2 Gastrointestinal hemorrhage, unspecified; K64.9 Unspecified hemorrhoids; Z79.01 Long term (current) use of anticoagulants; Z86.73 Personal history of transient ischemic attack (TIA), and cerebral infarction without residual deficits; Z99.81 Dependence on supplemental oxygen; K21.9 Gastro-esophageal reflux disease without esophagitis
CPT/HCPCS: 36430; 71045; 74177; 74250; 76705; 80048; 80053; 80069; 80074; 80076; 80162; 81001; 82103; 82105; 82272; 82390; 82550; 82607; 82728; 82746; 82948; 83520; 83540; 83550; 83735; 83880; 84484; 85007; 85025; 85027; 85610; 85730; 86038; 86255; 86850; 86900; 86901; 86920; 87077; 87086; 87186; 93005; 94002; 94003; 96361; 96374; 96375; 96376; 97110; 97162; 97167; 97530; 99285; G0378; G8987; G8988; J1205; J1940; J2405; J7050; P9016; Q9963; Q9967

== ENCOUNTER 2017-12-23 11:04 | Inpatient (IN) | payer OTHER, MEDICARE ==
[2017-12-23] VITALS (18 sets, daily range): BP systolic 100–214; BP diastolic 44–113; PULSE 70–86; RESP 16–25; TEMP 98.5–99.3; O2SAT 94–100
[~2017-12-23] VITALS: Ht 177.8 cm; Wt 131.4 kg
[~2017-12-23 11:04] MED LIST changes: +AMPI500 PO; -Albuterol-Ipratropium Neb NEB; +FERR140T PO; -METO-309 PO; +METO25TA3 PO; -NOVOLOGSS SQ; -SENN187 PO; -TAMS5CAP PO; -WALKER/ADULT/FO1 MIS; -[UNRECOGNIZED DRUG - OTHER]
[2017-12-23] MEDS ORDERED: SUCCINYLCHOLINE CHLORIDE 200 MG/10 ML VIAL ONE (11:15)
[2017-12-23] MEDS ORDERED: SUCCINYLCHOLINE CHLORIDE 100 MG/5 ML SYRINGE IV PUSH ONE (11:15)
[2017-12-23] MEDS ORDERED: ETOMIDATE 20 MG/10 ML VIAL IV PUSH ONE (11:15)
[2017-12-23] MEDS ORDERED: PROPOFOL 500 MG/50 ML INJ 50 ML ONE (11:32)
[2017-12-23] MEDS ORDERED: SODIUM CHLORIDE 0.9% FLUSH 10 ML FLUSH IVF PRN (11:45)
[2017-12-23] MEDS ORDERED: methylPREDNISolone SOD SUCC 125 MG/2 ML VIAL IV PUSH ONE (11:45)
[2017-12-23] MEDS: RESP: ALBUTEROL 2.5 MG/IPRATROPIUM 0.5 MG NEB (SCH) INH ×5 (12:02→23:14)
[2017-12-23] MEDS ORDERED: fentaNYL DRIP 250 ML IV PRN (12:30)
--- NOTE | 2017-12-23 12:30 | RADRPT ---
EXAM DATE/TIME: 12/23/2017 11:58 [facility] COMPARISON: CHEST SINGLE AP, December 14, 2017, 15:52. INDICATIONS : Evaluate ET tube placement. MEDICAL HISTORY : Cirrhosis. Chronic obstructive pulmonary disease. Hypertension. A-fib SURGICAL HISTORY : Appendectomy. ENCOUNTER: Initial ACUITY: 1 day PAIN SCORE: Non-responsive. LOCATION: Bilateral chest FINDINGS: ETT is approximately 3 cm above the eulalia. There is an NGT obscured in the lower thorax. Cardiac samir houette is enlarged but diffuse interstitial prominence. Mild bibasilar airspace disease. Remainder o f the exam is unchanged. CONCLUSION: 1. ETT in good position. NGT is obscured. 2. Cardiomegaly with pulmonary vascular congestion. 3. Minimal bibasilar airspace disease, likely atelectasis. Ollie Moran MD on December 23, 2017 at 12:23 Board Certified Radiologist. This report was verified electronically.
[2017-12-23 12:33] LABS: AUTOMATED NEUTROPHIL # 11.6 TH/MM3 (1.8-7.7); BASOPHIL # 0.1 TH/MM3 (0-0.2); BASOPHIL % 0.6 % (0.0-2.0); EOSINOPHIL % 0.2 % (0.0-4.0); HEMATOCRIT 34.3 % (39.0-51.0); INTERNATIONAL NORMALIZED RATIO 1.3 RATIO; LYMPH % 1.9 % (9.0-44.0); LYMPHOCYTE # 0.2 TH/MM3 (1.0-4.8); MEAN CELL VOLUME 86.3 FL (80.0-100.0); MEAN PLATELET VOLUME 7.2 FL (7.0-11.0); MONO % 2.7 % (0.0-8.0); MONOCYTE # 0.3 TH/MM3 (0-0.9); NEUT % 94.6 % (16.0-70.0); PLATELET COUNT 448 TH/MM3 (150-450); PROTHROMBIN TIME - PATIENT 12.9 SEC (9.8-11.6); RED BLOOD COUNT 3.98 MIL/MM3 (4.50-5.90); RED CELL DISTRIBUTION WIDTH 20.4 % (11.6-17.2); WHITE BLOOD COUNT 12.3 TH/MM3 (4.0-11.0)
[2017-12-23 12:42] LABS: ALBUMIN 3.1 GM/DL (3.4-5.0); ALT (GPT) 24 U/L (12-78); AST (GOT) 23 U/L (15-37); BICARBONATE 30.4 MEQ/L (21.0-32.0); BLOOD UREA NITROGEN 44 MG/DL (7-18); CALCIUM 8.8 MG/DL (8.5-10.1); CHLORIDE 101 MEQ/L (98-107); CREATININE 1.58 MG/DL (0.60-1.30); GLOMERULAR FILTRATION RATE 44 ML/MIN (>89); GLUCOSE,RANDOM 127 MG/DL (74-106); SODIUM (NA) 138 MEQ/L (136-145)
[2017-12-23 12:46] LABS: ALKALINE PHOSPHATASE 245 U/L (45-117); TOTAL BILIRUBIN ADULT 0.9 MG/DL (0.2-1.0); TOTAL PROTEIN 7.7 GM/DL (6.4-8.2); TROPONIN I 0.02 NG/ML (0.02-0.05)
--- NOTE | 2017-12-23 12:59 | PD ---
HPI Chief Complaint: Respiratory Distress Time Seen by Provider: 11:07 Travel History International Travel<30 days: No Contact w/Intl Traveler<30days: No Traveled to known affect area: No History of Present Illness HPI 62-year-old male complains of shortness of breath. Patient resides at a local halfway. EMS was called. Patient was brought to the ED for evaluation. Patient denies any chest pain. Patient complained of shortness of breath. Patient denies abdominal pain. Patient denies any nausea vomiting diarrhea. Patient states that her shortness of breath started this morning. Patient has history of COPD and CHF. Patient also has history of sleep apnea, GI bleed, atrial fibrillation on Xarelto, hypertension, hyperlipidemia, and alcohol abuse. PFSH Past Medical History Hx Anticoagulant Therapy: Yes Arthritis: No Asthma: No Atrial Fibrillation: Yes Blood Disorders: No Heart Rhythm Problems: Yes (afib) Cancer: No Cardiac Catheterization: Yes Cardiovascular Problems: Yes High Cholesterol: Yes Chest Pain: No Congestive Heart Failure: Yes COPD: Yes Cerebrovascular Accident: Yes (TIA) Coronary Artery Disease: Yes Diabetes: No Diminished Hearing: No Endocrine: Yes Gastrointestinal Disorders: No Genitourinary: No Headaches: No Hypertension: Yes Immune Disorder: No Implanted Vascular Access Dvce: No Kidney Stones: No Musculoskeletal: Yes Neurologic: Yes Psychiatric: No Reproductive: No Respiratory: Yes Integumentary: Yes (BILATERAL LOWER LEG SWELLING/SKIN ITEGRATY ISSUES cellulitis) Immunizations Current: Yes Migraines: No Renal Failure: Yes Seizures: Yes Sickle Cell Disease: No Sleep Apnea: Yes Thyroid Disease: No Tetanus Vaccination: Unknown Past Surgical History Abdominal Surgery: Yes (appendectomy) Appendectomy: Yes Cardiac Surgery: Yes (ABLATIONS X 3 (afib)) Ear Surgery: No Endocrine Surgery: No Eye Surgery: No Genitourinary Surgery: No Gynecologic Surgery: No Neurologic Surgery: No Oral Surgery: No Thoracic Surgery: No Tonsillectomy: Yes Other Surgery: Yes (3 CARDIAC ABLATIONS) Social History Alcohol Use: No (UNABLE TO OBTAIN) Tobacco Use: No (UNABLE TO OBTAIN) Substance Use: No (UNABLE TO OBTAIN) Allergies-Medications (Allergen,Severity, Reaction): Coded Allergies: No Known Allergies (Unverified Allergy, Unknown, 12/23/17) Reported Meds & Prescriptions Reported Meds & Active Scripts Active Ampicillin Trihydrate (Ampicillin) 500 Mg Capsule 500 Mg PO Q8HR Ferrous Sulfate ER (Ferrous Sulfate) 140 Mg (45 Mg Iron) Tab 140 Mg PO BID Metoprolol Tartrate 25 Mg Tab 75 Mg PO Q8HR 30 Days Klor-Con 8 (Potassium Chloride) 8 Meq Tab 8 Meq PO DAILY 30 Days Demadex (Torsemide) 20 Mg Tab 40 Mg PO DAILY 30 Days Calcium Acetate (Calcium Acetate (Phosphate Bin) 667 Mg Cap 667 Mg PO TID 30 Days Acetazolamide 125 Mg Tab 125 Mg PO BID 30 Days Diltiazem CD 24 HR 240 Mg Caper 240 Mg PO DAILY 30 Days Digoxin 0.125 Mg Tab 0.125 Mg PO DAILY Ventolin Hfa 18 GM Inh (Albuterol Sulfate) 90 Mcg/Act Aer 1 Puff INH Q4H PRN Atrovent HFA 12.9 GM Inh (Ipratropium [place]) 17 Mcg/Act Aer 2 Puff INH Q6HR PRN Symbicort Inh (Budesonide/Formoterol Fumarate) 160-4.5 Mcg/Act Aero 2 Puff INH Q12HR Atorvastatin (Atorvastatin Calcium) 40 Mg Tab 40 Mg PO HS Reported Xarelto (Rivaroxaban) 10 Mg Tab 10 Mg PO HS Poly-Iron 150 (Polysaccharide Iron Complex) 150 Mg Iron Cap 150 Mg PO DAILY Milk of Magnesia Liq (Magnesium Hydroxide) 400 Mg/5 Ml Susp 30 Ml PO HS PRN [Nystatin Powder] Bumetanide 1 Mg Tab 1 Mg PO DAILY Review of Systems General / Constitutional: No: Fever Eyes: No: Visual changes HENT: No: Headaches Cardiovascular: No: Chest Pain or Discomfort Respiratory: Positive: Shortness of Breath Gastrointestinal: No: Abdominal Pain Genitourinary: No: Dysuria Musculoskeletal: No: Pain Skin: No Rash Neurologic: No: Weakness Psychiatric: No: Depression Endocrine: No: Polydipsia Hematologic/Lymphatic: No: Easy Bruising Physical Exam Narrative GENERAL: Well-nourished, well-developed patient. SKIN: Focused skin assessment warm/dry. HEAD: Normocephalic. EYES: No scleral icterus. No injection or drainage. NECK: Supple, trachea midline. No JVD or lymphadenopathy. CARDIOVASCULAR: Regular rate and rhythm without murmurs, gallops, or rubs. RESPIRATORY: Breath sounds equal bilaterally. No accessory muscle use. Patient has rhonchi bibasilar. No wheezes. GASTROINTESTINAL: Abdomen soft, non-tender, nondistended. MUSCULOSKELETAL: No cyanosis. +1-+2 pitting edema lower extremity. BACK: Nontender without obvious deformity. No CVA tenderness. Neurologic exam: Patient lethargic however answer questions appropriately. Patient moves all extremity well. No obvious focal neurological deficit. Data Data Last Documented VS Vital Signs Date Time Temp Pulse Resp B/P (MAP) Pulse Ox O2 Delivery O2 Flow Rate FiO2 12/23/17 13:37 80 12/23/17 13:16 70 24 160/90 (113) 100 Auto-Vent 12/23/17 12:27 99.3 12/23/17 11:10 15.00 Orders Orders Etomidate Inj (Amidate Inj) (12/23/17 11:15) Succinylcholine Inj (Quelicin Inj) (12/23/17 11:15) Electrocardiogram (12/23/17 11:08) Complete Blood Count With Diff (12/23/17 11:08) Comprehensive Metabolic Panel (12/23/17 11:08) Creatine Kinase (Cpk) (12/23/17 11:08) Troponin I (12/23/17 11:08) B-Type Natriuretic Peptide (12/23/17 11:08) Prothrombin Time / Inr (Pt) (12/23/17 11:08) Act Partial Throm Time (Ptt) (12/23/17 11:08) Blood Culture (12/23/17 11:08) Influenzae A/B Antigen (12/23/17 11:08) Chest, Single Ap (12/23/17 11:08) Iv Access Insert/Monitor (12/23/17 11:08) Ecg Monitoring (12/23/17 11:08) Oximetry (12/23/17 11:08) Urinary Catheter Insert/Apply (12/23/17 11:08) Rao-Gastric Tube Insert/Mon (12/23/17 11:08) Succinylcholine Inj (Quelicin Inj) (12/23/17 11:15) Propofol 500 Mg/50 Ml Inj (Diprivan 500 (12/23/17 11:32) Restraints Non-Violent COSME.Q3H (12/23/17 11:42) Sodium Chloride 0.9% Flush (Ns Flush) (12/23/17 11:45) Methylprednisolone So Succ Inj (Solumedr (12/23/17 11:45) Albuterol-Ipratropium Neb (Duoneb Neb) (12/23/17 11:45) Fentanyl Drip (Fentanyl Drip) (12/23/17 12:30) Midazolam 100 Mg/100 Ml Inj (Versed Inj) (12/23/17 12:30) Arterial Blood Gas (Abg) (12/23/17 12:14) Arterial Blood Gas (Abg) (12/23/17 13:00) Resp Ventilation- Volume (12/23/17 12:30) Furosemide Inj (Lasix Inj) (12/23/17 13:45) Magnesium (Mg) (12/23/17 13:41) Phosphorus (Po4) (12/23/17 13:41) Potassium, Serum (K) (12/23/17 16:41) Calcium Gluconate Inj (Calcium Gluconate (12/23/17 13:45) Insulin Human Regular Inj (Novolin R Inj (12/23/17 14:00) Dextrose 50% In Lucina (Vial) Inj (D50w (Vi (12/23/17 13:45) Labs Laboratory Tests Test 12/23/17 11:45 12/23/17 12:14 12/23/17 13:00 White Blood Count 12.3 TH/MM3 Red Blood Count 3.98 MIL/MM3 Hemoglobin 10.0 GM/DL Hematocrit 34.3 % Mean Corpuscular Volume 86.3 FL Mean Corpuscular Hemoglobin 25.0 PG Mean Corpuscular Hemoglobin Concent 29.0 % Red Cell Distribution Width 20.4 % Platelet Count 448 TH/MM3 Mean Platelet Volume 7.2 FL Neutrophils (%) (Auto) 94.6 % Lymphocytes (%) (Auto) 1.9 % Monocytes (%) (Auto) 2.7 % Eosinophils (%) (Auto) 0.2 % Basophils (%) (Auto) 0.6 % Neutrophils # (Auto) 11.6 TH/MM3 Lymphocytes # (Auto) 0.2 TH/MM3 Monocytes # (Auto) 0.3 TH/MM3 Eosinophils # (Auto) 0.0 TH/MM3 Basophils # (Auto) 0.1 TH/MM3 CBC Comment DIFF FINAL Differential Comment Prothrombin Time 12.9 SEC Prothromb Time International Ratio 1.3 RATIO Activated Partial Thromboplast Time 29.4 SEC Blood Urea Nitrogen 44 MG/DL Creatinine 1.58 MG/DL Random Glucose 127 MG/DL Total Protein 7.7 GM/DL Albumin 3.1 GM/DL Calcium Level 8.8 MG/DL Alkaline Phosphatase 245 U/L Aspartate Amino Transf (AST/SGOT) 23 U/L Alanine Aminotransferase (ALT/SGPT) 24 U/L Total Bilirubin 0.9 MG/DL Sodium Level 138 MEQ/L Potassium Level 5.7 MEQ/L Chloride Level 101 MEQ/L Carbon Dioxide Level 30.4 MEQ/L Anion Gap 7 MEQ/L Estimat Glomerular Filtration Rate 44 ML/MIN Total Creatine Kinase 37 U/L Troponin I 0.02 NG/ML B-Type Natriuretic Peptide 959 PG/ML Blood Gas Puncture Site LT RADIAL LT RADIAL Blood Gas Patient Temperature 98.6 98.6 Blood Gas HCO3 29 mmol/L 28 mmol/L Blood Gas Base Excess 1.1 mmol/L 2.0 mmol/L Blood Gas Oxygen Saturation 95 % 95 % Arterial Blood pH 7.19 7.29 Arterial Blood Partial Pressure CO2 78 mmHg 60 mmHg Arterial Blood Partial Pressure O2 108 mmHG 101 mmHG Arterial Blood Oxygen Content 12.7 Vol % 12.5 Vol % Arterial Blood Carboxyhemoglobin 2.8 % 2.8 % Arterial Blood Methemoglobin 0.8 % 0.7 % Blood Gas Hemoglobin 9.4 G/DL 9.2 G/DL Oxygen Delivery Device VENT VENT Blood Gas Ventilator Setting AC16/550/PEEP5 AC600/24/PEEP5 Blood Gas Inspired Oxygen 80 % 80 % [facility] Medical Decision Making Medical Screen Exam Complete: Yes Emergency Medical Condition: Yes Interpretation(s) Last Impressions Chest X-Ray 12/23/17 1108 Signed Impressions: Service Date/Time: Saturday, December 23, 2017 11:58 - CONCLUSION: 1. ETT in good position. NGT is obscured. 2. Cardiomegaly with pulmonary vascular congestion. 3. Minimal bibasilar airspace disease, likely atelectasis. Ollie Moran MD 1336 PM. CBC WBC 12.3. Hemoglobin 10.0 hematocrit 34.3. 94 neutrophil. BNP 959. Potassium 5.7. BUN 44. Creatinine 1.58. Alkaline phosphatase 245. CK 37. Troponin normal. Differential Diagnosis Differential diagnosis including acute exacerbation of CHF, acute exacerbation COPD, bronchitis, pneumonia, PE, pneumothorax. Narrative Course 62-year-old male with shortness of breath. History of COPD and CHF. Patient was tachypneic and having respiratory failure in the ED. Patient was intubated. Propofol, fentanyl and Versed drip for sedation. Lasix 40 mg IV. D50 50 mL IV given. Novolin R 8 units IV given. Calcium gluconate 1 g IV given. Diagnosis Primary Impression: Acute exacerbation of CHF (congestive heart failure) Qualified Codes: I50.9 - Heart failure, unspecified Additional Impression: Respiratory failure Qualified Codes: J96.01 - Acute respiratory failure with hypoxia; J96.02 - Acute respiratory failure with hypercapnia Admitting Information Admitting Physician Requests: Admit Ryan Jameson MD Dec 23, 2017 12:59
[2017-12-23] MEDS: MIDAZOLAM 100 MG/100 ML INJ 100 ML IV PRN (13:13)
[2017-12-23] MEDS ORDERED: DEXTROSE 50% IN WATER 50 ML VIAL(D50) IV PUSH ONE ×2 (13:45→14:45)
[2017-12-23] MEDS ORDERED: CALCIUM GLUCONATE 10% 1 GM/10 ML VIAL SLOW IVP ONE ×2 (13:45→14:45)
[2017-12-23] MEDS ORDERED: FUROSEMIDE 40 MG/4 ML VIAL IV PUSH ONE (13:45)
[2017-12-23] MEDS ORDERED: NU-IRON PO (13:49)
[2017-12-23] MEDS ORDERED: XARE10TA PO (13:49)
[2017-12-23] MEDS ORDERED: BUME1TAB PO (13:49)
[2017-12-23] MEDS ORDERED: NYSTATIN POWDER (13:49)
[2017-12-23] MEDS ORDERED: MILKSUS PO (13:49)
[2017-12-23] MEDS ORDERED: INSULIN HUMAN REGULAR 1,000 UNITS/10 ML VIAL IV PUSH ONE ×2 (14:00→14:45)
[2017-12-23] MEDS ORDERED: MAGNESIUM OXIDE 400 MG TAB PO PRN (14:30)
[2017-12-23] MEDS ORDERED: POTASSIUM PHOSPHATE INJ 30 MMOL in SODIUM CHLOR 0.9% 250 ML INJ 250 ML IV PRN (14:30)
[2017-12-23] MEDS ORDERED: SODIUM PHOSPHATE INJ 30 MMOL in SODIUM CHLOR 0.9% 250 ML INJ 240 ML IV PRN (14:30)
[2017-12-23] MEDS ORDERED: BISACODYL 10 MG SUPP RECTAL PRN (14:30)
[2017-12-23] MEDS ORDERED: LACTULOSE SYRUP 20 GM/30 ML CUP PO PRN (14:30)
[2017-12-23] MEDS ORDERED: SODIUM CHLORIDE 0.9% FLUSH 10 ML FLUSH IV FLUSH PRN (14:30)
[2017-12-23] MEDS ORDERED: NURSING INFORMATION XX SCH (14:30)
[2017-12-23] MEDS ORDERED: POTASSIUM PHOSPHATE MONOBASIC 500 MG TAB PO/TUBE PRN (14:30)
[2017-12-23] MEDS ORDERED: CHLORHEXIDINE GLUCONATE 2 % 1 PACK (2 CLOTHS) TOP PRN (14:30)
[2017-12-23] MEDS ORDERED: POTASSIUM CHLOR 40 MEQ PREMIX 100 ML IV PRN ×2 (14:30)
[2017-12-23] MEDS ORDERED: MAGNESIUM SULFATE INJ 2 GM in SODIUM CHLORIDE 0.9% INJ 96 ML IV PRN (14:30)
[2017-12-23] MEDS ORDERED: POTASSIUM PHOSPHATE MONOBASIC 500 MG TAB PO PRN (14:30)
[2017-12-23] MEDS ORDERED: MAGNESIUM SULFATE INJ 4 GM in SODIUM CHLORIDE 0.9% INJ 92 ML IV PRN (14:30)
[2017-12-23] MEDS ORDERED: POTASSIUM CHLORIDE 25 MEQ EFFERVESCENT TAB PO PRN (14:30)
[2017-12-23] MEDS ORDERED: POTASSIUM CHLOR 20 MEQ PREMIX 100 ML IV PRN ×2 (14:30)
[2017-12-23] MEDS ORDERED: ONDANSETRON HCL 4 MG/2 ML VIAL IV PUSH PRN (14:30)
[2017-12-23] MEDS ORDERED: GLUCAGON 1 MG/ML VIAL OTHER PRN (14:45)
[2017-12-23] MEDS ORDERED: DEXTROSE 50% IN WATER 50 ML VIAL(D50) IV PUSH PRN (14:45)
[2017-12-23] MEDS ORDERED: SODIUM BICARBONATE 8.4% SOLN 50 MEQ/50 ML VIAL SLOW IVP ONE (14:45)
[2017-12-23] MEDS ORDERED: SODIUM POLYSTYRENE SULFONATE SUSP 15 GM/60 ML CUP PO ONE (14:45)
--- NOTE | 2017-12-23 15:54 | HHI.HP ---
[facility] Service Critical Care Medicine Primary Care Physician Unknown Admission Diagnosis Respiratory failure. Acute exacerbation CHF. Diagnosis: (1) Acute respiratory failure with hypoxia and hypercapnia Diagnosis: Principal (2) Osteoporosis Diagnosis: Secondary (3) Diabetes mellitus Diagnosis: Principal (4) Benign prostatic hyperplasia Diagnosis: Secondary (5) BMI 45.0-49.9, adult Diagnosis: Principal (6) History of TIA (transient ischemic attack) Diagnosis: Secondary (7) Hyperlipidemia Diagnosis: Secondary (8) Chronic venous stasis dermatitis of both lower extremities Diagnosis: Secondary (9) Chronic kidney disease, stage 3a Diagnosis: Secondary (10) Anticoagulants taken within 24 hours prior to hospitalization Diagnosis: Secondary (11) Leukocytosis Diagnosis: Principal (12) Hyperpotassemia Diagnosis: Principal (13) Chronic diastolic heart failure Diagnosis: Principal (14) Pulmonary hypertension Diagnosis: Secondary (15) Secondary hyperparathyroidism Diagnosis: Principal (16) Sleep apnea Diagnosis: Secondary (17) COPD exacerbation Diagnosis: Principal (18) Chronic diastolic (congestive) heart failure Diagnosis: Principal Chief Complaint: Admission from [facility] with acute hypoxemic respiratory failure Travel History International Travel<30 Days: No Contact w/Intl Traveler <30 Da: No Traveled to Known Affected Are: No History of Present Illness This is a 62-year-old male. Date of admission 12/23/2017. Past medical history includes atrial fibrillation on chronic rivaroxaban use, chronic diastolic heart failure ejection fraction 55%, COPD, obstructive sleep apnea on CPAP nocturnally, history of 3 times daily, chronic lipidemia/venous stasis, hypertension, chronic kidney disease stage IIIa, diabetes mellitus and chronic low back pain. Patient is a resident of [facility] who presented here to [facility] with acute onset of shortness of breath this a.m. at his nursing facility. He is brought to the emergency department for evaluation.F. According to Dr. Jameson, patient was tachypneic and becoming more uncomfortable and experienced hypoxic hypercapnic respiratory failure in the ED. Patient was intubated using glide scope. Furosemide 40 mg IV. Patient was noted to be hyperkalemic with potassium 5.7. D50 50 mL IV given. Novolin R 8 units IV given along with 1 ampule of D50. Calcium gluconate 1 g IV given. Repeat potassium pending. Patient became hypotensive propofol drip currently on midazolam and fentanyl drips for sedation while intubated. Initial blood gas reveals significant respiratory acidosis. We are asked to admit the patient. Review of Systems ROS Limitations: Intubated Past Family Social History Allergies: Coded Allergies: No Known Allergies (Unverified Allergy, Unknown, 12/23/17) Past Medical History Diabetes mellitus Coronary artery disease Atrial fibrillation Chronic diastolic heart failure ejection fraction 55% 08/30 Chronic lymphedema/venous stasis History of TIA Chronic obstructive pulmonary disease Essential hypertension Obstructive sleep apnea on nocturnal CPAP Anemia of chronic kidney disease Chronic kidney disease stage IIIa Elevated BMI greater than 45 Chronic low back pain Secondary hyperparathyroidism Iron deficiency anemia Dyslipidemia History of EtOH use Past Surgical History Appendectomy Cardiac ablation 3 T&A ORIF right arm Reported Medications Ampicillin 500 mg p.o. every 8 hours Iron sulfate 140 mg p.o. twice daily Metoprolol tartrate 75 mg p.o. twice daily Potassium chloride 8 mEq p.o. daily Torsemide 40 mg p.o. daily Calcium acetate 667 mg p.o. 3 times daily Diltiazem extended release 240 mg p.o. daily Digoxin 0.125 mg p.o. daily Albuterol inhaler 90 mcg inhalation every 6 hours Ipratropium inhaler 70 mg inhaler every 6 hours Budesonide/formoterol 160/4.5 2 puffs twice daily Rivaroxaban 10 mg p.o. at night Atorvastatin 40 mg p.o. daily Active Ordered Medications Reviewed in EMR Family History Father diabetes mellitus. Mother with hypertension Social History Significant secondary tobacco smoke exposure in [facility] years. Prior history of 3-4 beers nightly/6-12 beers weekly. Documented. No documentation of illicit drug use. Physical Exam Vital Signs Vital Signs Date Time Temp Pulse Resp B/P (MAP) Pulse Ox O2 Delivery O2 Flow Rate FiO2 12/23/17 14:51 79 24 115/57 (76) 100 Auto-Vent 80 12/23/17 14:42 79 24 115/57 (76) 100 Auto-Vent 80 12/23/17 13:51 73 24 112/55 (74) 100 Auto-Vent 80 12/23/17 13:37 80 12/23/17 13:16 70 24 160/90 (113) 100 Auto-Vent 80 12/23/17 12:27 99.3 71 24 100/55 (70) 99 Auto-Vent 80 12/23/17 12:25 99 80 12/23/17 11:48 71 16 115/44 (67) 100 Auto-Vent 80 12/23/17 11:35 76 16 214/113 (146) 98 Auto-Vent 80 12/23/17 11:30 100 80 12/23/17 11:22 86 25 144/75 (98) 97 12/23/17 11:10 86 25 144/75 (98) 97 Non-Rebreather 12/23/17 11:10 86 25 97 Non-Rebreather 15.00 Physical Exam GENERAL: Morbidly obese 62-year-old male currently resting in bed in no acute distress SKIN: Warm and dry. HEAD: Atraumatic. Normocephalic. EYES: Pupils equal and round. No scleral icterus. No injection or drainage. ENT: No nasal bleeding or discharge. Mucous membranes pink and moist. NECK: Trachea midline. No JVD. CARDIOVASCULAR: Regular rate and rhythm. S1, S2. No S4. Without murmur RESPIRATORY: Diminished breath sounds throughout. No end expiratory wheeze appreciated. GASTROINTESTINAL: Abdomen soft, non-tender, nondistended. Hepatic and splenic margins not palpable. MUSCULOSKELETAL: Extremities with chronic venous stasis/lymphedema bilateral lower extremities. Positive onychomycosis bilateral lower extremity nail NEUROLOGICAL: Arousable on the ventilator. Moves all 4 extremities spontaneously. Positive gag. Positive corneal reflex. Laboratory Laboratory Tests Test 12/23/17 11:45 12/23/17 12:14 12/23/17 13:00 White Blood Count 12.3 Red Blood Count 3.98 Hemoglobin 10.0 Hematocrit 34.3 Mean Corpuscular Volume 86.3 Mean Corpuscular Hemoglobin 25.0 Mean Corpuscular Hemoglobin Concent 29.0 Red Cell Distribution Width 20.4 Platelet Count 448 Mean Platelet Volume 7.2 Neutrophils (%) (Auto) 94.6 Lymphocytes (%) (Auto) 1.9 Monocytes (%) (Auto) 2.7 Eosinophils (%) (Auto) 0.2 Basophils (%) (Auto) 0.6 Neutrophils # (Auto) 11.6 Lymphocytes # (Auto) 0.2 Monocytes # (Auto) 0.3 Eosinophils # (Auto) 0.0 Basophils # (Auto) 0.1 CBC Comment DIFF FINAL Differential Comment Prothrombin Time 12.9 Prothromb Time International Ratio 1.3 Activated Partial Thromboplast Time 29.4 Blood Urea Nitrogen 44 Creatinine 1.58 Random Glucose 127 Total Protein 7.7 Albumin 3.1 Calcium Level 8.8 Alkaline Phosphatase 245 Aspartate Amino Transf (AST/SGOT) 23 Alanine Aminotransferase (ALT/SGPT) 24 Total Bilirubin 0.9 Sodium Level 138 Potassium Level 5.7 Chloride Level 101 Carbon Dioxide Level 30.4 Anion Gap 7 Estimat Glomerular Filtration Rate 44 Total Creatine Kinase 37 Troponin I 0.02 B-Type Natriuretic Peptide 959 Blood Gas Puncture Site LT RADIAL LT RADIAL Blood Gas Patient Temperature 98.6 98.6 Blood Gas HCO3 29 28 Blood Gas Base Excess 1.1 2.0 Blood Gas Oxygen Saturation 95 95 Arterial Blood pH 7.19 7.29 Arterial Blood Partial Pressure CO2 78 60 Arterial Blood Partial Pressure O2 108 101 Arterial Blood Oxygen Content 12.7 12.5 Arterial Blood Carboxyhemoglobin 2.8 2.8 Arterial Blood Methemoglobin 0.8 0.7 Blood Gas Hemoglobin 9.4 9.2 Oxygen Delivery Device VENT VENT Blood Gas Ventilator Setting AC16/550/PEEP5 AC600/24/PEEP5 Blood Gas Inspired Oxygen 80 80 Date/Time Source Procedure Growth Status 12/23/17 12:07 Blood Peripheral Aerobic Blood Culture Pending Received 12/23/17 12:07 Blood Peripheral Anaerobic Blood Culture Pending Received 12/23/17 12:00 Nasal Washing Influenza Types A,B Antigen (KARLA) - Final NEGATIVE FOR FLU A AND B ANTIGEN.... Complete Result Diagram: 12/23/17 1145 12/23/17 1145 Imaging Last Impressions Chest X-Ray 12/23/17 1108 Signed Impressions: Service Date/Time: Saturday, December 23, 2017 11:58 - CONCLUSION: 1. ETT in good position. NGT is obscured. 2. Cardiomegaly with pulmonary vascular congestion. 3. Minimal bibasilar airspace disease, likely atelectasis. Ollie Moran MD Septic Shock Reassessment Septic shock perfusion: reassessment completed Caprini VTE Risk Assessment Caprini VTE Risk Assessment: Mod/High Risk (score >= 2) Caprini Risk Assessment Model Point Value = 1 Point Value = 2 Point Value = 3 Point Value = 5 Age 41-60 Minor surgery BMI > 25 kg/m2 Swollen legs Varicose veins or History of unexplained or recurrent spontaneous Oral contraceptives or hormone replacement Sepsis (< 1 month) Serious lung disease, including pneumonia (< 1 month) Abnormal pulmonary function Acute myocardial infarction Congestive heart failure (< 1 month) History of inflammatory bowel disease Medical patient at bed rest Age 61-74 Arthroscopic surgery Major open surgery (> 45 min) Laparoscopic surgery (> 45 min) Malignancy Confined to bed (> 72 hours) Immobilizing plaster cast Central venous access Age >= 75 History of VTE Family history of VTE Factor V Leiden Prothrombin [id number] Lupus anticoagulant Anticardiolipin antibodies Elevated serum homocysteine Heparin-induced thrombocytopenia Other congenital or acquired thrombophilia Stroke (< 1 month) Elective arthroplasty Hip, pelvis, or leg fracture Acute spinal cord injury (< 1 month) Prophylaxis Regimen Total Risk Factor Score Risk Level Prophylaxis Regimen 0-1 Low Early ambulation 2 Moderate Order ONE of the following: *Sequential Compression Device (SCD) *Heparin 5000 units SQ BID 3-4 Higher Order ONE of the following medications: *Heparin 5000 units SQ TID *Enoxaparin/Lovenox 40 mg SQ daily (WT < 150 kg, CrCl > 30 mL/min) *Enoxaparin/Lovenox 30 mg SQ daily (WT < 150 kg, CrCl > 10-29 mL/min) *Enoxaparin/Lovenox 30 mg SQ BID (WT < 150 kg, CrCl > 30 mL/min) AND/OR *Sequential Compression Device (SCD) 5 or more Highest Order ONE of the following medications: *Heparin 5000 units SQ TID (Preferred with Epidurals) *Enoxaparin/Lovenox 40 mg SQ daily (WT < 150 kg, CrCl > 30 mL/min) *Enoxaparin/Lovenox 30 mg SQ daily (WT < 150 kg, CrCl > 10-29 mL/min) *Enoxaparin/Lovenox 30 mg SQ BID (WT < 150 kg, CrCl > 30 mL/min) AND *Sequential Compression Device (SCD) Assessment and Plan Assessment and Plan Neuro/Psych: History of TIA Currently midazolam drip at 2 mg an hour/fentanyl drips at 100 mg an hour for sedation/analgesia while intubated Goal of RASS -[address] brain when clinically indicated. CV: Chronic diastolic heart failure ejection fraction 55% 08/30 Hypertension/essential Dyslipidemia Atrial fibrillation currently in first degree AV block Moderate to severe pulmonary hypertension -pulmonary arterial systolic pressure 57 mmHg 08/30 EKG revealed first-degree AV block. Incomplete right bundle branch block. 2D echocardiogram 12% revealed EF 55%. LVH. PASP 57 mmHg Home medications metoprolol tartrate 75 mg twice daily and diltiazem extended release 240 mg daily held with borderline blood pressures Digoxin level pending. On 0.125 mg daily at [facility] echocardiogram will be ordered Resume atorvastatin 40 mg p.o. daily for dyslipidemia Currently holding torsemide 40 mg daily/home medication. Initiate furosemide 40 mg IV twice daily. One dose of acetazolamide 20 mg IV 1. Resp: Acute on chronic hypoxic respiratory failure DENIS COPD/oxygen dependent PRVC 20/6 100/0.8 5/5/80 Ventilator bundle Albuterol/ipratropium aerosols every 4 hours with albuterol aerosols every 2 hours as needed dyspnea Add budesonide 0.5/2 1 inhalation twice daily Chest x-ray revealed signs of pulmonary edema with cardiomegaly Follow-up on chest x-ray in a.m. and ABG later this afternoon GI: Elevated alkaline phosphatase OG tube to LIWS Lansoprazole for GI prophylaxis Docusate sodium/senna 1 tablet twice daily for bowel regimen : BPH Barrientos catheter indicated for accurate I's and O's in a critically ill patient receiving diuretics Endo: Diabetes mellitus Secondary hyperparathyroidism Sliding scale insulin with Novulin R with Accu-Cheks every 6 hours to maintain euglycemia/medium regimen Continue calcium acetate 667 mg by tube 3 times daily Renal: Chronic kidney disease stage IIIa Monitor urine output Accurate I's and O's Baseline creatinine between 1.6 and 1.9 Avoid nephrotoxic medication Heme: Leukocytosis Chronic rivaroxaban use Normocytic anemia Resumed rivaroxaban 10 mg daily Monitor CBC daily. Follow trends Resume iron sulfate 140 mg by tube twice daily ID: On ampicillin 500 mg 3 times daily question chronic lower extremity cellulitis Blood cultures 2, UA, sputum ordered 12/23 Influenza a and B are pending Urine Legionella pneumococcal antigens pending MSK: Chronic lymphedema/venous stasis PT evaluate and treat FEN: Hyperkalemia Received D50/insulin, Kayexalate, calcium gluconate and albuterol aerosols and sodium bicarbonate ampule 1. Recheck in 3 hours Access -Utilize peripheral IV. Right femoral CVL day #1 placed by ED physician 12/23 Prophylaxis -GI -lansoprazole -DVT -SCD/rivaroxaban provides DVT prophylaxis Critical Care: The total critical care time was 35 minutes. Time to perform other separately billable procedures was not included in the critical care time. Code Status Full code Discussed Condition With Dr. Jameson/ED physician. No family available. Care plan discussed and all questions answered Problem Qualifiers (1) Osteoporosis: Qualified Codes: M81.0 - Age-related osteoporosis without current pathological fracture (2) Diabetes mellitus: Qualified Codes: E11.8 - Type 2 diabetes mellitus with unspecified complications (3) Benign prostatic hyperplasia: Qualified Codes: N40.0 - Benign prostatic hyperplasia without lower urinary tract symptoms (4) Hyperlipidemia: Qualified Codes: E78.5 - Hyperlipidemia, unspecified (5) Leukocytosis: Qualified Codes: D72.829 - Elevated white blood cell count, unspecified (6) Sleep apnea: Qualified Codes: G47.30 - Sleep apnea, unspecified Rigoberto Maldonado MD Dec 23, 2017 15:54
[2017-12-23] MEDS ORDERED: HEPARIN SODIUM - SQ 10,000 UNITS/ML VIAL SQ SCH (16:00)
[2017-12-23] MEDS: INSULIN NovoLIN REGULAR SUPPLEMENTAL SCALE SQ SCH ×3 (16:00→23:58)
[2017-12-23] MEDS: CALCIUM ACETATE 667 MG CAP PO SCH (17:11)
[2017-12-23] MEDS: ARTIFICIAL TEARS OPTH SOLN 15 ML BTL EACH EYE SCH (17:13)
[2017-12-23 17:48] LABS: MAGNESIUM 2.3 MG/DL (1.5-2.5); PHOSPHORUS 4.5 MG/DL (2.5-4.9)
[2017-12-23] MEDS ORDERED: FUROSEMIDE 40 MG/4 ML VIAL IV PUSH SCH (18:00)
--- NOTE | 2017-12-23 18:08 | RADRPT ---
EXAM DATE/TIME: 12/23/2017 16:46 [facility] COMPARISON: No previous studies available for comparison. INDICATIONS : Bilateral leg swelling. MEDICAL HISTORY : Seizures. Chronic obstructive pulmonary disease. Congestive heart failure. Cerebrovascular accident. Coronary artery disease. Anticoagulant therapy. Hypercholesterolemia. Afib. Hypertension. Sleep apnea . Renal failure. Back problems. Numbness. Suicide attempt. Cellulitis. Chronic leg edema. MRSA. Measl es. Blood transfusion. Respiratory failure. Diabetes. Osteoporosis. BPH. SURGICAL HISTORY : Tonsillectomy.Appendectomy. Cardiac ablations x 3. Right ankle surgery. Right leg surgery. Right arm surgery. ENCOUNTER: Sequela ACUITY: >1 year PAIN SCORE: Non-responsive LOCATION: Bilateral legs. TECHNIQUE: Venous ultrasound of the left and right leg was performed from the inguinal ligament to the proximal calf. Real-time, color Doppler and spectral tracing, compression and augmentation techniques were us ed. FINDINGS: RIGHT LEG: There is normal compressibility of the deep venous system from the inguinal region to the proximal ca lf. No echogenic clot is seen in the lumen of the common femoral, femoral, popliteal, and posterior tibial veins. There is a normal response of the venous system to proximal and distal augmentation an d respiration. LEFT LEG: There is normal compressibility of the deep venous system from the inguinal region to the proximal ca lf. No echogenic clot is seen in the lumen of the common femoral, femoral, popliteal, and posterior tibial veins. There is a normal response of the venous system to proximal and distal augmentation an d respiration. CONCLUSION: 1. Negative for deep venous thrombosis in the lower extremities. Mannie Croft MD on December 23, 2017 at 18:04 Board Certified Radiologist. This report was verified electronically.
[2017-12-23] MEDS: RESP: BUDESONIDE 0.5 MG/2 ML NEB NEB SCH (20:40)
[2017-12-23] MEDS: DOCUSATE SODIUM 50 MG/SENNA 8.6 MG TAB PO SCH (21:03)
[2017-12-23] MEDS: FERROUS SULFATE 325 MG (65 MG ELEMENTAL IRON) TAB PO SCH (21:03)
[2017-12-23] MEDS: CHLORHEXIDINE 0.12% (ORAL KIT) 15 ML CUP MT SCH (21:04)
[2017-12-23] MEDS: SODIUM CHLORIDE 0.9% FLUSH 10 ML FLUSH IV FLUSH SCH (21:05)
[2017-12-24] VITALS (18 sets, daily range): BP systolic 101–126; BP diastolic 52–61; PULSE 75–83; RESP 11–16; TEMP 97.5–98.5; O2SAT 92–94
[2017-12-24] LABS: MAGNESIUM 2.2 MG/DL (1.5-2.5)
[2017-12-24 00:17] LABS: DIGOXIN 0.9 NG/ML (0.8-2.0); PHOSPHORUS 4.3 MG/DL (2.5-4.9); TROPONIN I 0.02 NG/ML (0.02-0.05)
[2017-12-24] MEDS: RESP: ALBUTEROL 2.5 MG/IPRATROPIUM 0.5 MG NEB (SCH) INH ×6 (03:54→23:38)
[2017-12-24] MEDS: CHLORHEXIDINE GLUCONATE 2 % 1 PACK (2 CLOTHS) TOP SCH (04:00)
[2017-12-24] MEDS: INSULIN NovoLIN REGULAR SUPPLEMENTAL SCALE SQ SCH ×5 (04:00→20:12)
[2017-12-24] MEDS: fentaNYL DRIP 250 ML IV PRN ×2 (04:24→16:10)
[2017-12-24 04:46] LABS: AUTOMATED NEUTROPHIL # 4.3 TH/MM3 (1.8-7.7); BASOPHIL % 0.2 % (0.0-2.0); HEMATOCRIT 24.5 % (39.0-51.0); HEMOGLOBIN 7.6 GM/DL (13.0-17.0); LYMPH % 5.1 % (9.0-44.0); LYMPHOCYTE # 0.2 TH/MM3 (1.0-4.8); MEAN CELL VOLUME 83.8 FL (80.0-100.0); MEAN CORPUSCULAR HGB CONC 31.1 % (32.0-36.0); MEAN PLATELET VOLUME 7.1 FL (7.0-11.0); MONOCYTE # 0.1 TH/MM3 (0-0.9); NEUT % 91.7 % (16.0-70.0); PLATELET COUNT 280 TH/MM3 (150-450); RED BLOOD COUNT 2.92 MIL/MM3 (4.50-5.90); WHITE BLOOD COUNT 4.7 TH/MM3 (4.0-11.0)
--- NOTE | 2017-12-24 04:49 | RADRPT ---
EXAM DATE/TIME: 12/24/2017 02:59 [facility] COMPARISON: CHEST SINGLE AP, December 23, 2017, 11:58. INDICATIONS : Shortness of breath, possible pulmonary disease. MEDICAL HISTORY : Cirrhosis. Chronic obstructive pulmonary disease. Hypertension. A-Fib SURGICAL HISTORY : Appendectomy. ENCOUNTER: Subsequent ACUITY: 2 days PAIN SCORE: Non-responsive. LOCATION: Bilateral chest FINDINGS: A single view of the chest demonstrates cardiomegaly and right sided airspace disease. Pulmonary vasc ular congestion. Endotracheal tube and nasogastric tube unchanged. Probable small pleural effusions. The cardiomediastinal contours are unremarkable. Osseous structures are intact. CONCLUSION: Slight increase of airspace disease right lung. Hemal Muñoz MD on December 24, 2017 at 4:46 Board Certified Radiologist. This report was verified electronically.
[2017-12-24 04:56] LABS: INTERNATIONAL NORMALIZED RATIO 1.3 RATIO; PROTHROMBIN TIME - PATIENT 13.1 SEC (9.8-11.6)
[2017-12-24 05:13] LABS: ALBUMIN 2.4 GM/DL (3.4-5.0); ALT (GPT) 14 U/L (12-78); AST (GOT) 14 U/L (15-37); BICARBONATE 32.1 MEQ/L (21.0-32.0); BLOOD UREA NITROGEN 47 MG/DL (7-18); CALCIUM 8.5 MG/DL (8.5-10.1); CHLORIDE 102 MEQ/L (98-107); CHOLESTEROL 86 MG/DL (120-200); CREATININE 1.45 MG/DL (0.60-1.30); GLOMERULAR FILTRATION RATE 49 ML/MIN (>89); GLUCOSE,RANDOM 130 MG/DL (74-106); MAGNESIUM 2.2 MG/DL (1.5-2.5); PHOSPHORUS 4.2 MG/DL (2.5-4.9); SODIUM (NA) 143 MEQ/L (136-145)
[2017-12-24 05:15] LABS: ALKALINE PHOSPHATASE 163 U/L (45-117); CHOLESTEROL/ HDL RATIO 4.32 RATIO; HDL CHOLESTEROL 19.9 MG/DL (40.0-60.0); LDL CHOLESTEROL 44 MG/DL (0-99); TOTAL BILIRUBIN ADULT 0.6 MG/DL (0.2-1.0); TOTAL PROTEIN 5.8 GM/DL (6.4-8.2); TRIGLYCERIDES 110 MG/DL (42-150)
[2017-12-24] MEDS: RESP: BUDESONIDE 0.5 MG/2 ML NEB NEB SCH ×2 (08:14→21:07)
--- NOTE | 2017-12-24 08:57 | HHI.CCPN ---
Subjective Remarks/Hospital Course This is a 62-year-old male. Date of admission 12/23/2017. Past medical history includes atrial fibrillation on chronic rivaroxaban use, chronic diastolic heart failure ejection fraction 55%, COPD, obstructive sleep apnea on CPAP nocturnally, history of 3 times daily, chronic lipidemia/venous stasis, hypertension, chronic kidney disease stage IIIa, diabetes mellitus and chronic low back pain. Patient is a resident of [facility] who presented here to [facility] with acute onset of shortness of breath this a.m. at his nursing facility. He is brought to the emergency department for evaluation.F. According to Dr. Jameson, patient was tachypneic and becoming more uncomfortable and experienced hypoxic hypercapnic respiratory failure in the ED. Patient was intubated using glide scope. Furosemide 40 mg IV. Patient was noted to be hyperkalemic with potassium 5.7. D50 50 mL IV given. Novolin R 8 units IV given along with 1 ampule of D50. Calcium gluconate 1 g IV given. Repeat potassium pending. Patient became hypotensive propofol drip currently on midazolam and fentanyl drips for sedation while intubated. Initial blood gas reveals significant respiratory acidosis. We are asked to admit the patient. Subjective 12/24: Currently biting on endotracheal tube. Will increase sedation. FiO2 50% . Continue diuresis. Afebrile. Arousable and does follow commands on the ventilator. No bowel movement. Objective Vital Signs Date Time Temp Pulse Resp B/P (MAP) Pulse Ox O2 Delivery O2 Flow Rate FiO2 12/24/17 08:15 94 50 12/24/17 06:00 79 12/24/17 04:00 98.1 16 106/58 (74) 12/23/17 14:51 Auto-Vent 12/23/17 11:10 15.00 Intake and Output 12/24/17 12/24/17 12/25/17 08:00 16:00 00:00 Intake Total 199 ml Output Total 1600 ml Balance -1401 ml Result Diagram: 12/24/17 0415 12/24/17 0415 Other Results Microbiology Date/Time Source Procedure Growth Status 12/23/17 12:07 Blood Peripheral Aerobic Blood Culture Pending Received 12/23/17 12:07 Blood Peripheral Anaerobic Blood Culture Pending Received 12/24/17 04:30 Sputum Endotracheal Gram Stain Pending Received 12/24/17 04:30 Sputum Endotracheal Sputum Culture Pending Received 12/23/17 17:11 Urine Catheterized Urine Legionella Antigen - Final PRESUMPTIVE NEGATIVE FOR LEGIONELLA P... Complete 12/23/17 17:11 Urine Catheterized Urine Streptococcus pneumoniae Antigen (M - Final PRESUMPTIVE NEGATIVE FOR STREPTOCOCCU... Complete Imaging Last Impressions Chest X-Ray 12/24/17 0600 Signed Impressions: Service Date/Time: December 02:59 - CONCLUSION: Slight increase of airspace disease right lung. Hemal Muñoz MD Lower Extremity Ultrasound 12/23/17 0000 Signed Impressions: Service Date/Time: Saturday, December 23, 2017 16:46 - CONCLUSION: 1. Negative for deep venous thrombosis in the lower extremities. Mannie Croft MD Objective Remarks GENERAL: Morbidly obese 62-year-old male currently resting in bed in no acute distress SKIN: Warm and dry. HEAD: Atraumatic. Normocephalic. EYES: Pupils equal and round. No scleral icterus. No injection or drainage. ENT: No nasal bleeding or discharge. Mucous membranes pink and moist. NECK: Trachea midline. No JVD. CARDIOVASCULAR: Regular rate and rhythm. S1, S2. No S4. Without murmur RESPIRATORY: Diminished breath sounds throughout. No end expiratory wheeze appreciated. GASTROINTESTINAL: Abdomen soft, non-tender, nondistended. Hepatic and splenic margins not palpable. MUSCULOSKELETAL: Extremities with chronic venous stasis/lymphedema bilateral lower extremities. Positive onychomycosis bilateral lower extremity nail NEUROLOGICAL: Arousable on the ventilator. Moves all 4 extremities spontaneously. Positive gag. Positive corneal reflex. Urinary Catheter: Yes Assessment to: Continue Barrientos insert reason: ICU Pt Getting Diuretics Vascular Central Line Catheter: Yes Assessment to: Continue Date of Insertion: Dec 23, 2017 Line: Central Venous Catheter Side: Right Location: Femoral A/P Assessment and Plan Neuro/Psych: History of TIA Currently midazolam drip at 5 mg an hour/fentanyl drips at 2000 mcg an hour for sedation/analgesia while intubated Goal of RASS -[address] brain if clinically indicated. Patient is currently arousable biting on tube and following commands CV: Chronic diastolic heart failure ejection fraction 55% 08/30 Hypertension/essential Dyslipidemia Atrial fibrillation currently in first degree AV block Moderate to severe pulmonary hypertension -pulmonary arterial systolic pressure 57 mmHg 08/30 EKG revealed first-degree AV block. Incomplete right bundle branch block. 2D echocardiogram 12% revealed EF 55%. LVH. PASP 57 mmHg Home medications metoprolol tartrate 75 mg twice daily and diltiazem extended release 240 mg daily held with borderline blood pressures Digoxin level 0.9. On 0.125 mg daily at [facility] and will restart today Limited echocardiogram will be ordered. Results pending Resume atorvastatin 40 mg p.o. daily for dyslipidemia Currently holding torsemide 40 mg daily/home medication. Initiate furosemide 40 mg IV twice daily. One dose of acetazolamide 500 mg IV 1. Resp: Acute on chronic hypoxic respiratory failure DENIS COPD/oxygen dependent PRVC 15/700/1.2/ Ventilator bundle Albuterol/ipratropium aerosols every 4 hours with albuterol aerosols every 2 hours as needed dyspnea Add budesonide 0.5/2 1 inhalation twice daily Methylprednisolone succinate 40 mg IV every 8 hours Chest x-ray revealed signs of pulmonary edema with cardiomegaly Follow-up on chest x-ray in a.m 01/11 GI: Elevated alkaline phosphatase OG tube to LIWS Start tube feeding with Glucerna 1/55 cc an hour Lansoprazole for GI prophylaxis Docusate sodium/senna 1 tablet twice daily for bowel regimen : BPH Barrientos catheter indicated for accurate I's and O's in a critically ill patient receiving diuretics Endo: Diabetes mellitus Secondary hyperparathyroidism Sliding scale insulin with Novulin R with Accu-Cheks every 6 hours to maintain euglycemia/medium regimen Continue calcium acetate 667 mg by tube 3 times daily TSH 1.94 Renal: Chronic kidney disease stage IIIa Monitor urine output Accurate I's and O's Baseline creatinine between 1.6 and 1.9. Currently 1.48 Avoid nephrotoxic medication Heme: Chronic rivaroxaban use Normocytic anemia Resumed rivaroxaban 10 mg daily Monitor CBC daily. Follow trends Recheck hemoglobin this afternoon Resume iron sulfate 140 mg by tube twice daily ID: On ampicillin 500 mg 3 times daily question chronic lower extremity cellulitis Blood cultures 2, UA, sputum ordered 12/23 with results pending. Influenza a and B negative Urine Legionella pneumococcal antigens negative MSK: Chronic lymphedema/venous stasis PT evaluate and treat FEN: Replace electrolytes as clinically indicated Access -Utilize peripheral IV. Right femoral CVL day #1 placed by ED physician 12/23 Prophylaxis -GI -lansoprazole -DVT -SCD/rivaroxaban provides DVT prophylaxis Critical Care: The total critical care time was 35 minutes. Time to perform other separately billable procedures was not included in the critical care time. Rigoberto Maldonado MD Dec 24, 2017 08:57
[2017-12-24] MEDS: ARTIFICIAL TEARS OPTH SOLN 15 ML BTL EACH EYE SCH ×3 (09:00→17:17)
[2017-12-24] MEDS: FERROUS SULFATE 325 MG (65 MG ELEMENTAL IRON) TAB PO SCH ×2 (09:14→20:13)
[2017-12-24] MEDS: LANSOPRAZOLE SOLUTAB 30 MG TAB G-TUBE SCH (09:14)
[2017-12-24] MEDS: CALCIUM ACETATE 667 MG CAP PO SCH ×3 (09:14→17:18)
[2017-12-24] MEDS: DOCUSATE SODIUM 50 MG/SENNA 8.6 MG TAB PO SCH ×2 (09:14→20:13)
[2017-12-24] MEDS ORDERED: POTASSIUM CHLORIDE 20 MEQ PWD PACKET PO ONE ×2 (09:15→09:45)
[2017-12-24] MEDS: CHLORHEXIDINE 0.12% (ORAL KIT) 15 ML CUP MT SCH ×2 (09:15→20:12)
[2017-12-24] MEDS: SODIUM CHLORIDE 0.9% FLUSH 10 ML FLUSH IV FLUSH SCH ×2 (09:15→20:13)
[2017-12-24] MEDS ORDERED: DIGOXIN SOLUTION 0.125 MG/2.5 ML CUP PO ONE (09:15)
[2017-12-24] MEDS: RIVAROXABAN 10 MG TAB PO SCH (09:25)
[2017-12-24] MEDS ORDERED: Vancomycin Consult Pharmacy 1 EA OTHER PRN (09:30)
[2017-12-24] MEDS: methylPREDNISolone SOD SUCC 40 MG/1 ML VIAL IV PUSH SCH ×3 (10:24→22:38)
[2017-12-24] MEDS: AZITHROMYCIN INJ 500 MG in SODIUM CHLOR 0.9% 250 ML INJ 250 ML IV SCH (10:25)
--- NOTE | 2017-12-24 11:55 | ECHRPT ---
Indication: EF assessment of CHF CONCLUSIONS The left ventricular systolic function is low normal with an estimated ejection fraction in the rang e of 50- 55%. Wall thickness is measured at the upper limits of normal. Normal left ventricular size. BP: / HR: Rhythm: Sinus MEASUREMENTS (Male / Female) Normal Values Technical Quality:Fair 2D ECHO LV Diastolic Diameter PLAX 5.1 cm 4.2 - 5.9 / 3.9 - 5.3 cm LV Systolic Diameter PLAX 2.4 cm IVS Diastolic Thickness 1.3 cm 0.6 - 1.0 / 0.6 - 0.9 cm LVPW Diastolic Thickness 1.3 cm 0.6 - 1.0 / 0.6 - 0.9 cm LV Relative Wall Thickness 0.5 LVOT Diameter 3.0 cm M-MODE Aortic Root Diameter MM 2.6 cm LA Systolic Diameter MM 3.3 cm LA Ao Ratio MM 1.3 AV Cusp Separation MM 1.6 cm DOPPLER AV Peak Velocity 221.0 cm/s AV Peak Gradient 19.5 mmHg LVOT Peak Velocity 129.0 cm/s LVOT Peak Gradient 6.7 mmHg AV Area Cont Eq pk 4.1 cm Mitral E Point Velocity 93.3 cm/s Mitral A Point Velocity 40.5 cm/s Mitral E to A Ratio 2.3 LV E' Lateral Velocity 4.7 cm/s Mitral E to LV E' Lateral Ratio 19.9 LV E' Septal Velocity 4.1 cm/s Mitral E to LV E' Septal Ratio 22.8 TR Peak Velocity 339.0 cm/s TR Peak Gradient 46.0 mmHg Right Atrial Pressure 10.0 mmHg Pulmonary Artery Systolic Pressu 56.0 mmHg Right Ventricular Systolic Press 56.0 mmHg PV Peak Velocity 121.0 cm/s PV Peak Gradient 5.9 mmHg FINDINGS LEFT VENTRICLE The left ventricular systolic function is low normal with an estimated ejection fraction in the rang e of 50- 55%. Wall thickness is measured at the upper limits of normal. Normal left ventricular size. RIGHT VENTRICLE Normal right ventricular size and systolic function. LEFT ATRIUM The left atrial size is normal. RIGHT ATRIUM The right atrial size is normal. ATRIAL SEPTUM Normal atrial septal thickness without atrial level shunting by limited color doppler interrogation. AORTA The aortic root and proximal ascending aorta are normal in size on limited imaging. MITRAL VALVE Structurally normal mitral valve. No mitral valve stenosis or regurgitation. AORTIC VALVE Trileaflet aortic valve. No aortic valve stenosis or regurgitation. TRICUSPID VALVE Structurally normal tricuspid valve. No tricuspid valve stenosis or regurgitation. PULMONARY VALVE No pulmonary valve regurgitation or stenosis. VESSELS The inferior vena cava is normal in size. PERICARDIUM No pericardial effusion. Reginaldo Machado MD, FACC (Electronically Signed) Final Date:24 December 2017 11:55
[2017-12-24] MEDS: PIPERACIL-TAZO 3.375 GM PREMIX 50 ML IV SCH ×2 (12:13→17:17)
[2017-12-24] MEDS: MIDAZOLAM 100 MG/100 ML INJ 100 ML IV PRN (12:22)
[2017-12-24] MEDS: VANCOMYCIN INJ 2,000 MG in SODIUM CHLORID 0.9% 500 ML INJ 500 ML IV SCH (12:50)
[2017-12-24 13:30] LABS: HEMATOCRIT 24.3 % (39.0-51.0); HEMOGLOBIN 7.5 GM/DL (13.0-17.0)
[2017-12-24 13:39] LABS: BACTERIA, URINE RARE /hpf; BILIRUBIN, URINE NEG (NEG); BLOOD, URINE MOD (NEG); GLUCOSE,URINE NEG (NEG); HYALINE CAST, URINE 2 /lpf (RARE); KETONE, URINE NEG (NEG); NITRITE,URINE NEG (NEG); URINE COLOR YELLOW (YELLW/STRAW); URINE LEUKOCYTE ESTERASE LARGE (NEG)
[2017-12-24] MEDS: FUROSEMIDE 40 MG/4 ML VIAL IV PUSH SCH (17:18)
[2017-12-24] MEDS ORDERED: FUROSEMIDE 100 MG/10 ML VIAL IV PUSH SCH (18:00)
--- NOTE | 2017-12-24 19:38 | EKG ---
Date Performed: 12/23/2017 Time Performed: 12:23:30 PTAGE: 62 years EKG: Sinus rhythm WITH FIRST DEGREE AV BLOCK LOW QRS VOLTAGE IN PRECORDIAL LEADS INCOMPLETE RIGHT BUNDLE BRANCH BLOCK NONSPECIFIC ST & T-WAVE ABNORMALITY Compared to previous tracing, sinus rate has slowed ABNORMAL ECG PREVIOUS TRACING : 12/14/2017 15.50 DOCTOR: Roni Goodman Interpretating Date/Time 12/24/2017 19:37:32
[2017-12-25] VITALS (19 sets, daily range): BP systolic 101–155; BP diastolic 60–65; PULSE 63–95; RESP 6–16; TEMP 97.4–97.7; O2SAT 78–99
[2017-12-25] MEDS: INSULIN NovoLIN REGULAR SUPPLEMENTAL SCALE SQ SCH ×6 (00:18→21:46)
[2017-12-25] MEDS: PIPERACIL-TAZO 3.375 GM PREMIX 50 ML IV SCH ×5 (00:18→23:46)
[2017-12-25] MEDS: fentaNYL DRIP 250 ML IV PRN ×2 (00:19→22:36)
[2017-12-25] MEDS: MIDAZOLAM 100 MG/100 ML INJ 100 ML IV PRN ×3 (00:19→22:47)
[2017-12-25] MEDS: RESP: ALBUTEROL 2.5 MG/IPRATROPIUM 0.5 MG NEB (SCH) INH ×6 (03:04→23:34)
[2017-12-25] MEDS: CHLORHEXIDINE GLUCONATE 2 % 1 PACK (2 CLOTHS) TOP SCH (04:00)
[2017-12-25 05:36] LABS: AUTOMATED NEUTROPHIL # 4.6 TH/MM3 (1.8-7.7); BASOPHIL % 0.1 % (0.0-2.0); HEMATOCRIT 26.2 % (39.0-51.0); HEMOGLOBIN 8.1 GM/DL (13.0-17.0); LYMPH % 4.9 % (9.0-44.0); LYMPHOCYTE # 0.2 TH/MM3 (1.0-4.8); MEAN CELL VOLUME 82.9 FL (80.0-100.0); MEAN CORPUSCULAR HEMOGLOBIN 25.6 PG (27.0-34.0); MEAN CORPUSCULAR HGB CONC 30.9 % (32.0-36.0); MEAN PLATELET VOLUME 7.3 FL (7.0-11.0); MONO % 3.4 % (0.0-8.0); MONOCYTE # 0.2 TH/MM3 (0-0.9); NEUT % 91.6 % (16.0-70.0); PLATELET COUNT 280 TH/MM3 (150-450); RED BLOOD COUNT 3.16 MIL/MM3 (4.50-5.90); RED CELL DISTRIBUTION WIDTH 19.1 % (11.6-17.2); WHITE BLOOD COUNT 5.1 TH/MM3 (4.0-11.0)
[2017-12-25 05:54] LABS: BICARBONATE 29.6 MEQ/L (21.0-32.0); CALCIUM 8.5 MG/DL (8.5-10.1); CREATININE 1.48 MG/DL (0.60-1.30); MAGNESIUM 2.5 MG/DL (1.5-2.5)
[2017-12-25 05:55] LABS: PHOSPHORUS 4.1 MG/DL (2.5-4.9)
--- NOTE | 2017-12-25 06:24 | RADRPT ---
EXAM DATE/TIME: 12/25/2017 05:11 [facility] COMPARISON: CHEST SINGLE AP, December 24, 2017, 2:59. INDICATIONS : Congestive heart failure. MEDICAL HISTORY : Cirrhosis. Chronic obstructive pulmonary disease. Hypertension. A-Fib SURGICAL HISTORY : Appendectomy. ENCOUNTER: Subsequent ACUITY: 4 - 6 days PAIN SCORE: Non-responsive. LOCATION: Bilateral chest FINDINGS: Endotracheal tube and nasogastric tube remain in place. Bilateral primarily basilar and perihilar inf iltrates persist, unchanged. Cardiac contours are grossly stable with cardiac enlargement. CONCLUSION: No significant change Renny Hinojosa MD on December 25, 2017 at 6:21 Board Certified Radiologist. This report was verified electronically.
[2017-12-25] MEDS: methylPREDNISolone SOD SUCC 40 MG/1 ML VIAL IV PUSH SCH ×3 (06:25→22:36)
[2017-12-25] MEDS: ARTIFICIAL TEARS OPTH SOLN 15 ML BTL EACH EYE SCH ×3 (09:00→17:46)
[2017-12-25] MEDS: DOCUSATE SODIUM 50 MG/SENNA 8.6 MG TAB PO SCH ×2 (09:14→22:35)
[2017-12-25] MEDS: DIGOXIN SOLUTION 0.125 MG/2.5 ML CUP PO SCH (09:14)
[2017-12-25] MEDS: FERROUS SULFATE 325 MG (65 MG ELEMENTAL IRON) TAB PO SCH ×2 (09:14→22:35)
[2017-12-25] MEDS: LANSOPRAZOLE SOLUTAB 30 MG TAB G-TUBE SCH (09:14)
[2017-12-25] MEDS: RIVAROXABAN 10 MG TAB PO SCH (09:14)
[2017-12-25] MEDS: FUROSEMIDE 40 MG/4 ML VIAL IV PUSH SCH ×2 (09:15→17:46)
[2017-12-25] MEDS: SODIUM CHLORIDE 0.9% FLUSH 10 ML FLUSH IV FLUSH SCH ×2 (09:15→22:35)
[2017-12-25] MEDS: CALCIUM ACETATE 667 MG CAP PO SCH ×3 (09:15→17:46)
[2017-12-25] MEDS: CHLORHEXIDINE 0.12% (ORAL KIT) 15 ML CUP MT SCH ×2 (09:22→22:35)
[2017-12-25] MEDS: AZITHROMYCIN INJ 500 MG in SODIUM CHLOR 0.9% 250 ML INJ 250 ML IV SCH (09:22)
[2017-12-25] MEDS: RESP: BUDESONIDE 0.5 MG/2 ML NEB NEB SCH ×2 (10:18→19:49)
[2017-12-25] MEDS: VANCOMYCIN INJ 2,000 MG in SODIUM CHLORID 0.9% 500 ML INJ 500 ML IV SCH (13:04)
--- NOTE | 2017-12-25 20:30 | HHI.CCPN ---
Subjective Remarks/Hospital Course This is a 62-year-old male. Date of admission 12/23/2017. Past medical history includes atrial fibrillation on chronic rivaroxaban use, chronic diastolic heart failure ejection fraction 55%, COPD, obstructive sleep apnea on CPAP nocturnally, history of 3 times daily, chronic lipidemia/venous stasis, hypertension, chronic kidney disease stage IIIa, diabetes mellitus and chronic low back pain. Patient is a resident of [facility] who presented here to [facility] with acute onset of shortness of breath this a.m. at his nursing facility. He is brought to the emergency department for evaluation.F. According to Dr. Jameson, patient was tachypneic and becoming more uncomfortable and experienced hypoxic hypercapnic respiratory failure in the ED. Patient was intubated using glide scope. Furosemide 40 mg IV. Patient was noted to be hyperkalemic with potassium 5.7. D50 50 mL IV given. Novolin R 8 units IV given along with 1 ampule of D50. Calcium gluconate 1 g IV given. Repeat potassium pending. Patient became hypotensive propofol drip currently on midazolam and fentanyl drips for sedation while intubated. Initial blood gas reveals significant respiratory acidosis. We are asked to admit the patient. 12/24: Currently biting on endotracheal tube. Will increase sedation. FiO2 50% . Continue diuresis. Afebrile. Arousable and does follow commands on the ventilator. No bowel movement. Subjective 12/25: Afebrile. Resting in bed in no acute distress. FiO2 down to 50%. PEEP today. Tolerating diet. Objective Vital Signs Date Time Temp Pulse Resp B/P (MAP) Pulse Ox O2 Delivery O2 Flow Rate FiO2 12/25/17 19:50 96 50 12/25/17 18:00 70 12/25/17 16:00 97.4 7 155/63 (93) 12/23/17 14:51 Auto-Vent 12/23/17 11:10 15.00 Intake and Output 12/25/17 12/25/17 12/26/17 08:00 16:00 00:00 Intake Total 574 ml 870 ml 446 ml Output Total 900 ml 600 ml Balance -326 ml 870 ml -154 ml Result Diagram: 12/25/17 0400 12/25/17 1545 Other Results Microbiology Date/Time Source Procedure Growth Status 12/23/17 12:07 Blood Peripheral Aerobic Blood Culture - Preliminary NO GROWTH IN 2 DAYS Resulted 12/23/17 12:07 Blood Peripheral Anaerobic Blood Culture - Preliminary NO GROWTH IN 2 DAYS Resulted 12/24/17 04:30 Sputum Endotracheal Gram Stain - Final Resulted 12/24/17 04:30 Sputum Endotracheal Sputum Culture - Preliminary NO GROWTH IN 24 HOURS. Resulted 12/24/17 12:30 Urine Catheterized Urine Urine Culture - Preliminary NO GROWTH IN 24 HOURS. Resulted Imaging Last Impressions Chest X-Ray 12/25/17 0600 Signed Impressions: Service Date/Time: Monday, December 25, 2017 05:11 - CONCLUSION: No significant change Renny Hinojosa MD Lower Extremity Ultrasound 12/23/17 0000 Signed Impressions: Service Date/Time: Saturday, December 23, 2017 16:46 - CONCLUSION: 1. Negative for deep venous thrombosis in the lower extremities. Mannei Croft MD Objective Remarks GENERAL: Morbidly obese 62-year-old male currently resting in bed in no acute distress SKIN: Warm and dry. HEAD: Atraumatic. Normocephalic. EYES: Pupils equal and round. No scleral icterus. No injection or drainage. ENT: No nasal bleeding or discharge. Mucous membranes pink and moist. NECK: Trachea midline. No JVD. CARDIOVASCULAR: Regular rate and rhythm. S1, S2. No S4. Without murmur RESPIRATORY: Diminished breath sounds throughout. No end expiratory wheeze appreciated. GASTROINTESTINAL: Abdomen soft, non-tender, nondistended. Hepatic and splenic margins not palpable. MUSCULOSKELETAL: Extremities with chronic venous stasis/lymphedema bilateral lower extremities. Positive onychomycosis bilateral lower extremity nail NEUROLOGICAL: Arousable on the ventilator. Moves all 4 extremities spontaneously. Positive gag. Positive corneal reflex. Urinary Catheter: No Assessment to: Continue Vascular Central Line Catheter: Yes Assessment to: Continue Date of Insertion: Dec 23, 2017 Line: Central Venous Catheter Side: Right Location: Femoral A/P Assessment and Plan Neuro/Psych: History of TIA Currently midazolam drip at 5 mg an hour/fentanyl drips at 200 mcg an hour for sedation/analgesia while intubated Goal of RASS -[address] brain if clinically indicated. Patient is currently arousable biting on tube and following commands CV: Chronic diastolic heart failure ejection fraction 55% 08/30 Hypertension/essential Dyslipidemia Atrial fibrillation currently in first degree AV block Moderate to severe pulmonary hypertension -pulmonary arterial systolic pressure 57 mmHg 08/30 EKG revealed first-degree AV block. Incomplete right bundle branch block. 2D echocardiogram 12% revealed EF 55%. LVH. PASP 57 mmHg Home medications metoprolol tartrate 75 mg twice daily and diltiazem extended release 240 mg daily held with borderline blood pressures Digoxin level 0.9. On 0.125 mg daily at [facility] and will restart Limited echocardiogram 12/24 revealed EF 55%. Resume atorvastatin 40 mg p.o. daily for dyslipidemia Currently holding torsemide 40 mg daily/home medication. Initiate furosemide 40 mg IV twice daily. Resp: Acute on chronic hypoxic respiratory failure DENIS COPD/oxygen dependent PRVC 15/1./ Ventilator bundle Albuterol/ipratropium aerosols every 4 hours with albuterol aerosols every 2 hours as needed dyspnea Add budesonide 0.5/2 1 inhalation twice daily Methylprednisolone succinate 40 mg IV every 8 hours Chest x-ray revealed signs of pulmonary edema with cardiomegaly Follow-up on chest x-ray in a.m 12/26 GI: Elevated alkaline phosphatase Continue tube feeding with Glucerna 1/55 cc an hour Lansoprazole for GI prophylaxis Docusate sodium/senna 1 tablet twice daily for bowel regimen : BPH Barrientos catheter indicated for accurate I's and O's in a critically ill patient receiving diuretics Endo: Diabetes mellitus Secondary hyperparathyroidism Sliding scale insulin with Novulin R with Accu-Cheks every 6 hours to maintain euglycemia/medium regimen Continue calcium acetate 667 mg by tube 3 times daily TSH 1.94 Renal: Chronic kidney disease stage IIIa Monitor urine output Accurate I's and O's Baseline creatinine between 1.6 and 1.9. Currently 1.48 Avoid nephrotoxic medication Heme: Chronic rivaroxaban use Normocytic anemia Resumed rivaroxaban 10 mg daily Monitor CBC daily. Follow trends Recheck hemoglobin this afternoon Resume iron sulfate 140 mg by tube twice daily ID: On ampicillin 500 mg 3 times daily question chronic lower extremity cellulitis Blood cultures 2, UA, sputum ordered 12/23 with results pending. Influenza a and B negative Urine Legionella pneumococcal antigens negative MSK: Chronic lymphedema/venous stasis PT evaluate and treat FEN: Replace electrolytes as clinically indicated Access -Utilize peripheral IV. Right femoral CVL day #1 placed by ED physician 12/23 Prophylaxis -GI -lansoprazole -DVT -SCD/rivaroxaban provides DVT prophylaxis Critical Care: The total critical care time was 35 minutes. Time to perform other separately billable procedures was not included in the critical care time. Rigoberto Maldonado MD Dec 25, 2017 20:30
[2017-12-26] VITALS (30 sets, daily range): BP systolic 120–141; BP diastolic 59–68; PULSE 56–85; RESP 0–16; TEMP 97.2–98.1; O2SAT 92–100
[2017-12-26] MEDS: INSULIN NovoLIN REGULAR SUPPLEMENTAL SCALE SQ SCH ×6 (00:40→20:00)
[2017-12-26] MEDS: RESP: ALBUTEROL 2.5 MG/IPRATROPIUM 0.5 MG NEB (SCH) INH ×6 (02:47→23:08)
[2017-12-26] MEDS: CHLORHEXIDINE GLUCONATE 2 % 1 PACK (2 CLOTHS) TOP SCH (03:56)
[2017-12-26] MEDS: PROPOFOL 1000 MG/100 ML INJ 100 ML IV PRN ×3 (04:49→17:29)
[2017-12-26 04:53] LABS: HEMOGLOBIN 8.1 GM/DL (13.0-17.0); MEAN CELL VOLUME 82.7 FL (80.0-100.0); MEAN CORPUSCULAR HEMOGLOBIN 25.8 PG (27.0-34.0); MEAN CORPUSCULAR HGB CONC 31.2 % (32.0-36.0); MEAN PLATELET VOLUME 7.1 FL (7.0-11.0); PLATELET COUNT 276 TH/MM3 (150-450); RED BLOOD COUNT 3.14 MIL/MM3 (4.50-5.90); WHITE BLOOD COUNT 3.8 TH/MM3 (4.0-11.0)
[2017-12-26 05:08] LABS: BICARBONATE 28.9 MEQ/L (21.0-32.0); CALCIUM 8.4 MG/DL (8.5-10.1); CREATININE 1.7 MG/DL (0.60-1.30)
--- NOTE | 2017-12-26 05:46 | RADRPT ---
EXAM DATE/TIME: 12/26/2017 03:52 [facility] COMPARISON: CHEST SINGLE AP, December 25, 2017, 5:11. INDICATIONS : Shortness of breath, possible pulmonary disease. MEDICAL HISTORY : Cirrhosis. Chronic obstructive pulmonary disease. Hypertension. A-Fib SURGICAL HISTORY : Appendectomy. ENCOUNTER: Subsequent ACUITY: 1 week PAIN SCORE: Non-responsive. LOCATION: Bilateral chest FINDINGS: The cardiac silhouette is enlarged in transverse diameter. There is prominence of the central pulmona ry vasculature with indistinct vascular margins compatible with vascular congestion but no evidence o f overt failure. There is subsegmental atelectasis in the both bases. Moderate size bilateral pleura l effusions are identified. CONCLUSION: 1. Cardiomegaly and findings of vascular congestion without overt failure. There has been no signific ant change when compared to the prior exam. Prasad Zapata MD on December 26, 2017 at 5:44 Board Certified Radiologist. This report was verified electronically.
[2017-12-26] MEDS: methylPREDNISolone SOD SUCC 40 MG/1 ML VIAL IV PUSH SCH ×2 (05:52→13:32)
[2017-12-26] MEDS: PIPERACIL-TAZO 3.375 GM PREMIX 50 ML IV SCH ×3 (05:52→17:27)
[2017-12-26] MEDS: RESP: BUDESONIDE 0.5 MG/2 ML NEB NEB SCH ×2 (07:31→19:22)
[2017-12-26] MEDS: CHLORHEXIDINE 0.12% (ORAL KIT) 15 ML CUP MT SCH ×2 (08:00→20:00)
[2017-12-26] MEDS: SODIUM CHLORIDE 0.9% FLUSH 10 ML FLUSH IV FLUSH SCH ×2 (09:13→21:00)
[2017-12-26] MEDS: FERROUS SULFATE 325 MG (65 MG ELEMENTAL IRON) TAB PO SCH (09:14)
[2017-12-26] MEDS: RIVAROXABAN 10 MG TAB PO SCH (09:14)
[2017-12-26] MEDS: CALCIUM ACETATE 667 MG CAP PO SCH ×3 (09:14→17:31)
[2017-12-26] MEDS: DOCUSATE SODIUM 50 MG/SENNA 8.6 MG TAB PO SCH (09:14)
[2017-12-26] MEDS: FUROSEMIDE 40 MG/4 ML VIAL IV PUSH SCH ×2 (09:15→17:28)
[2017-12-26] MEDS: LANSOPRAZOLE SOLUTAB 30 MG TAB G-TUBE SCH (09:15)
[2017-12-26] MEDS: DIGOXIN SOLUTION 0.125 MG/2.5 ML CUP PO SCH (09:16)
[2017-12-26] MEDS: SENNOSIDES 8.6 MG TAB PO PRN (09:25)
[2017-12-26] MEDS: MAGNESIUM HYDROXIDE SUSP 30 ML CUP PO PRN (09:25)
--- NOTE | 2017-12-26 10:12 | HHI.CCPN ---
Subjective Remarks/Hospital Course This is a 62-year-old male. Date of admission 12/23/2017. Past medical history includes atrial fibrillation on chronic rivaroxaban use, chronic diastolic heart failure ejection fraction 55%, COPD, obstructive sleep apnea on CPAP nocturnally, history of 3 times daily, chronic lipidemia/venous stasis, hypertension, chronic kidney disease stage IIIa, diabetes mellitus and chronic low back pain. Patient is a resident of [facility] who presented here to [facility] with acute onset of shortness of breath this a.m. at his nursing facility. He is brought to the emergency department for evaluation.F. According to Dr. Jameson, patient was tachypneic and becoming more uncomfortable and experienced hypoxic hypercapnic respiratory failure in the ED. Patient was intubated using glide scope. Furosemide 40 mg IV. Patient was noted to be hyperkalemic with potassium 5.7. D50 50 mL IV given. Novolin R 8 units IV given along with 1 ampule of D50. Calcium gluconate 1 g IV given. Repeat potassium pending. Patient became hypotensive propofol drip currently on midazolam and fentanyl drips for sedation while intubated. Initial blood gas reveals significant respiratory acidosis. We are asked to admit the patient. 12/24: Currently biting on endotracheal tube. Will increase sedation. FiO2 50% . Continue diuresis. Afebrile. Arousable and does follow commands on the ventilator. No bowel movement. 12/25: Afebrile. Resting in bed in no acute distress. FiO2 down to 50%. PEEP today. Tolerating diet. Subjective 12/26: FiO2 stable at 50%. PEEP is currently at 8. Tolerating diet. No bowel movement today. Extremely agitated off sedative medications. Objective Vital Signs Date Time Temp Pulse Resp B/P (MAP) Pulse Ox O2 Delivery O2 Flow Rate FiO2 12/26/17 07:26 93 50 12/26/17 06:00 62 12/26/17 04:00 97.2 16 134/68 (90) 12/23/17 14:51 Auto-Vent 12/23/17 11:10 15.00 Intake and Output 12/26/17 12/26/17 12/26/17 07:59 15:59 23:59 Intake Total 485 ml Output Total 725 ml Balance -240 ml Result Diagram: 12/26/17 0430 12/26/17 0430 Other Results Microbiology Date/Time Source Procedure Growth Status 12/23/17 12:07 Blood Peripheral Aerobic Blood Culture - Preliminary NO GROWTH IN 2 DAYS Resulted 12/23/17 12:07 Blood Peripheral Anaerobic Blood Culture - Preliminary NO GROWTH IN 2 DAYS Resulted 12/24/17 04:30 Sputum Endotracheal Gram Stain - Final Resulted 12/24/17 04:30 Sputum Endotracheal Sputum Culture - Preliminary NO GROWTH IN 24 HOURS. Resulted 12/24/17 12:30 Urine Catheterized Urine Urine Culture - Final NO GROWTH IN 48 HOURS. Complete Imaging Last Impressions Chest X-Ray 12/26/17 0600 Signed Impressions: Service Date/Time: Tuesday, December 26, 2017 03:52 - CONCLUSION: 1. Cardiomegaly and findings of vascular congestion without overt failure. There has been no significant change when compared to the prior exam. Prasad Zapata MD Lower Extremity Ultrasound 12/23/17 0000 Signed Impressions: Service Date/Time: Saturday, December 23, 2017 16:46 - CONCLUSION: 1. Negative for deep venous thrombosis in the lower extremities. Mannie Croft MD Objective Remarks GENERAL: Morbidly obese 62-year-old male currently resting in bed in no acute distress SKIN: Warm and dry. HEAD: Atraumatic. Normocephalic. EYES: Pupils equal and round. No scleral icterus. No injection or drainage. ENT: No nasal bleeding or discharge. Mucous membranes pink and moist. NECK: Trachea midline. No JVD. CARDIOVASCULAR: Regular rate and rhythm. S1, S2. No S4. Without murmur RESPIRATORY: Diminished breath sounds throughout. No end expiratory wheeze appreciated. GASTROINTESTINAL: Abdomen soft, non-tender, nondistended. Hepatic and splenic margins not palpable. MUSCULOSKELETAL: Extremities with chronic venous stasis/lymphedema bilateral lower extremities. Positive onychomycosis bilateral lower extremity nail NEUROLOGICAL: Arousable on the ventilator. Moves all 4 extremities spontaneously. Positive gag. Positive corneal reflex. Urinary Catheter: Yes Assessment to: Continue Barrientos insert reason: ICU Pt Getting Diuretics Vascular Central Line Catheter: Yes Assessment to: Remove Date of Insertion: Dec 23, 2017 Line: Central Venous Catheter Side: Right Location: Femoral A/P Assessment and Plan Neuro/Psych: History of TIA Currently midazolam drip at 5 mg an hour/fentanyl drips at 200 mcg an hour for sedation/analgesia while intubated Goal of RASS -[address] brain if clinically indicated. Patient previously arousable biting on tube and following commands CV: Chronic diastolic heart failure ejection fraction 55% 08/30 Hypertension/essential Dyslipidemia Atrial fibrillation currently in first degree AV block Moderate to severe pulmonary hypertension -pulmonary arterial systolic pressure 57 mmHg 08/30 EKG revealed first-degree AV block. Incomplete right bundle branch block. 2D echocardiogram 12% revealed EF 55%. LVH. PASP 57 mmHg Home medications metoprolol tartrate 75 mg twice daily and diltiazem extended release 240 mg daily held with borderline blood pressures Digoxin level 0.9. On 0.125 mg daily at [facility] and will restart Limited echocardiogram 12/24 revealed EF 55%. Resume atorvastatin 40 mg p.o. daily for dyslipidemia Currently holding torsemide 40 mg daily/home medication. Continue furosemide 40 mg IV twice daily. Resp: Acute on chronic hypoxic respiratory failure DENIS COPD/oxygen dependent PRVC 15/700/1.2/ Ventilator bundle Albuterol/ipratropium aerosols every 4 hours with albuterol aerosols every 2 hours as needed dyspnea Add budesonide 0.5/2 1 inhalation twice daily Methylprednisolone succinate 40 mg IV every 8 hours Chest x-ray revealed signs of pulmonary edema with cardiomegaly Follow-up on chest x-ray in a.m 12/27 GI: Elevated alkaline phosphatase Continue tube feeding with Glucerna 1. @55 cc an hour Lansoprazole for GI prophylaxis Docusate sodium/senna 1 tablet twice daily for bowel regimen : BPH Barrientos catheter indicated for accurate I's and O's in a critically ill patient receiving diuretics Endo: Diabetes mellitus Secondary hyperparathyroidism Sliding scale insulin with Novulin R with Accu-Cheks every 6 hours to maintain euglycemia/medium regimen Continue calcium acetate 667 mg by tube 3 times daily TSH 1.94 Renal: Chronic kidney disease stage IIIa Monitor urine output Accurate I's and O's Baseline creatinine between 1.6 and 1.9. Currently 1.7 Avoid nephrotoxic medication Heme: Chronic rivaroxaban use Normocytic anemia Leukopenia Resumed rivaroxaban 10 mg daily Monitor CBC daily. Follow trends Resume iron sulfate twice daily ID: On ampicillin 500 mg 3 times daily question chronic lower extremity cellulitis Blood cultures 2, UA, sputum ordered 12/23 with results pending. Influenza a and B negative Urine Legionella pneumococcal antigens negative MSK: Chronic lymphedema/venous stasis PT evaluate and treat FEN: Replace electrolytes as clinically indicated Access -Utilize peripheral IV. Right femoral CVL day #1 placed by ED physician 12/23 Prophylaxis -GI -lansoprazole -DVT -SCD/rivaroxaban provides DVT prophylaxis Critical Care: The total critical care time was 35 minutes. Time to perform other separately billable procedures was not included in the critical care time. Rigoberto Maldonado MD Dec 26, 2017 10:12
[2017-12-26] MEDS ORDERED: POTASSIUM CHLOR 40 MEQ PREMIX 100 ML IV ONE (10:15)
[2017-12-26] MEDS ORDERED: METHYLNALTREXONE BROMIDE 12 MG/0.6 ML VIAL SQ ONE (10:45)
[2017-12-26] MEDS: AZITHROMYCIN INJ 500 MG in SODIUM CHLOR 0.9% 250 ML INJ 250 ML IV SCH (11:33)
[2017-12-26] MEDS: MIDAZOLAM 100 MG/100 ML INJ 100 ML IV PRN (12:26)
[2017-12-26] MEDS: VANCOMYCIN INJ 2,000 MG in SODIUM CHLORID 0.9% 500 ML INJ 500 ML IV SCH (12:30)
[2017-12-26] MEDS: ARTIFICIAL TEARS OPTH SOLN 15 ML BTL EACH EYE SCH ×2 (13:00→17:31)
[2017-12-27] VITALS (32 sets, daily range): BP systolic 114–166; BP diastolic 61–106; PULSE 52–119; RESP 0–17; TEMP 97.3–98.4; O2SAT 90–100
[2017-12-27] MEDS: methylPREDNISolone SOD SUCC 40 MG/1 ML VIAL IV PUSH SCH ×4 (00:03→20:33)
[2017-12-27] MEDS: PIPERACIL-TAZO 3.375 GM PREMIX 50 ML IV SCH ×4 (00:03→17:45)
[2017-12-27] MEDS: CHLORHEXIDINE GLUCONATE 2 % 1 PACK (2 CLOTHS) TOP SCH (00:04)
[2017-12-27] MEDS: DOCUSATE SODIUM 50 MG/SENNA 8.6 MG TAB PO SCH ×3 (00:08→20:32)
[2017-12-27] MEDS: FERROUS SULFATE 325 MG (65 MG ELEMENTAL IRON) TAB PO SCH ×3 (00:08→20:32)
[2017-12-27] MEDS: PROPOFOL 1000 MG/100 ML INJ 100 ML IV PRN ×2 (00:17→20:49)
[2017-12-27] MEDS: MIDAZOLAM 100 MG/100 ML INJ 100 ML IV PRN ×2 (00:17→13:34)
[2017-12-27] MEDS: RESP: ALBUTEROL 2.5 MG/IPRATROPIUM 0.5 MG NEB (SCH) INH ×4 (03:25→14:11)
[2017-12-27] MEDS: INSULIN NovoLIN REGULAR SUPPLEMENTAL SCALE SQ SCH ×6 (04:00→20:31)
--- NOTE | 2017-12-27 05:13 | RADRPT ---
EXAM DATE/TIME: 12/27/2017 03:51 [facility] COMPARISON: CHEST SINGLE AP, December 26, 2017, 3:52. INDICATIONS : Shortness of breath, possible pulmonary disease. MEDICAL HISTORY : Cirrhosis. Chronic obstructive pulmonary disease. Hypertension. A-Fib SURGICAL HISTORY : Appendectomy. ENCOUNTER: Subsequent ACUITY: 1 week PAIN SCORE: Non-responsive. LOCATION: Bilateral chest FINDINGS: The cardiac silhouette is enlarged in transverse diameter. There is prominence of the central pulmona ry vasculature with indistinct vascular margins compatible with vascular congestion but no evidence o f overt failure. Small bilateral pleural effusions are identified. CONCLUSION: 1. Cardiomegaly and findings of vascular congestion without overt failure. Bilateral effusions. There has been no significant change when compared to the prior exam. Prasad Zapata MD on December 27, 2017 at 5:11 Board Certified Radiologist. This report was verified electronically.
[2017-12-27] MEDS: RESP: BUDESONIDE 0.5 MG/2 ML NEB NEB SCH ×2 (07:26→19:49)
[2017-12-27 07:42] LABS: BICARBONATE 25.7 MEQ/L (21.0-32.0); CALCIUM 8.5 MG/DL (8.5-10.1); CREATININE 1.85 MG/DL (0.60-1.30); MAGNESIUM 2.9 MG/DL (1.5-2.5)
[2017-12-27 07:43] LABS: PHOSPHORUS 4.8 MG/DL (2.5-4.9)
[2017-12-27 07:45] LABS: AUTOMATED NEUTROPHIL # 3.7 TH/MM3 (1.8-7.7); BASOPHIL % 0.2 % (0.0-2.0); HEMATOCRIT 29.3 % (39.0-51.0); HEMOGLOBIN 8.9 GM/DL (13.0-17.0); LYMPH % 7.2 % (9.0-44.0); LYMPHOCYTE # 0.3 TH/MM3 (1.0-4.8); MEAN CELL VOLUME 82.6 FL (80.0-100.0); MEAN CORPUSCULAR HEMOGLOBIN 25.2 PG (27.0-34.0); MEAN CORPUSCULAR HGB CONC 30.5 % (32.0-36.0); MEAN PLATELET VOLUME 7.6 FL (7.0-11.0); MONO % 6.5 % (0.0-8.0); MONOCYTE # 0.3 TH/MM3 (0-0.9); NEUT % 86.1 % (16.0-70.0); PLATELET COUNT 298 TH/MM3 (150-450); RED BLOOD COUNT 3.55 MIL/MM3 (4.50-5.90); RED CELL DISTRIBUTION WIDTH 19.2 % (11.6-17.2); WHITE BLOOD COUNT 4.3 TH/MM3 (4.0-11.0)
[2017-12-27 07:56] LABS: DIGOXIN 0.9 NG/ML (0.8-2.0)
[2017-12-27] MEDS: SODIUM CHLORIDE 0.9% FLUSH 10 ML FLUSH IV FLUSH SCH ×2 (08:20→20:33)
[2017-12-27] MEDS: LANSOPRAZOLE SOLUTAB 30 MG TAB G-TUBE SCH (08:20)
[2017-12-27] MEDS: SENNOSIDES 8.6 MG TAB PO PRN (08:21)
[2017-12-27] MEDS: DIGOXIN SOLUTION 0.125 MG/2.5 ML CUP PO SCH (08:21)
[2017-12-27] MEDS: FUROSEMIDE 40 MG/4 ML VIAL IV PUSH SCH ×2 (08:21→17:45)
[2017-12-27] MEDS: RIVAROXABAN 10 MG TAB PO SCH (08:22)
[2017-12-27] MEDS: MAGNESIUM HYDROXIDE SUSP 30 ML CUP PO PRN (08:22)
[2017-12-27] MEDS: CALCIUM ACETATE 667 MG CAP PO SCH ×3 (08:22→17:45)
[2017-12-27] MEDS: ARTIFICIAL TEARS OPTH SOLN 15 ML BTL EACH EYE SCH ×3 (08:23→17:46)
[2017-12-27] MEDS: CHLORHEXIDINE 0.12% (ORAL KIT) 15 ML CUP MT SCH ×2 (08:24→20:33)
[2017-12-27] MEDS: AZITHROMYCIN INJ 500 MG in SODIUM CHLOR 0.9% 250 ML INJ 250 ML IV SCH (10:39)
[2017-12-27] MEDS ORDERED: PHARMACY ORDERED LAB ONE (11:45)
[2017-12-27] MEDS: VANCOMYCIN INJ 2,000 MG in SODIUM CHLORID 0.9% 500 ML INJ 500 ML IV SCH (12:17)
--- NOTE | 2017-12-27 14:40 | HHI.CCPN ---
Subjective Remarks/Hospital Course This is a 62-year-old male. Date of admission 12/23/2017. Past medical history includes atrial fibrillation on chronic rivaroxaban use, chronic diastolic heart failure ejection fraction 55%, COPD, obstructive sleep apnea on CPAP nocturnally, history of 3 times daily, chronic lipidemia/venous stasis, hypertension, chronic kidney disease stage IIIa, diabetes mellitus and chronic low back pain. Patient is a resident of [facility] who presented here to [facility] with acute onset of shortness of breath this a.m. at his nursing facility. He is brought to the emergency department for evaluation.F. According to Dr. Jameson, patient was tachypneic and becoming more uncomfortable and experienced hypoxic hypercapnic respiratory failure in the ED. Patient was intubated using glide scope. Furosemide 40 mg IV. Patient was noted to be hyperkalemic with potassium 5.7. D50 50 mL IV given. Novolin R 8 units IV given along with 1 ampule of D50. Calcium gluconate 1 g IV given. Repeat potassium pending. Patient became hypotensive propofol drip currently on midazolam and fentanyl drips for sedation while intubated. Initial blood gas reveals significant respiratory acidosis. We are asked to admit the patient. 12/24: Currently biting on endotracheal tube. Will increase sedation. FiO2 50% . Continue diuresis. Afebrile. Arousable and does follow commands on the ventilator. No bowel movement. 12/25: Afebrile. Resting in bed in no acute distress. FiO2 down to 50%. PEEP today. Tolerating diet. Subjective 12/26: FiO2 stable at 50%. PEEP is currently at 8. Tolerating diet. No bowel movement today. Extremely agitated off sedative medications. 12/27: Patient continues on sedation currently fentanyl 150 mcgs/hr Versed 7 mg/ hour, currently tolerating CPAP trials. No bowel movement, reported minimal tube feed residual. Objective Vital Signs Date Time Temp Pulse Resp B/P (MAP) Pulse Ox O2 Delivery O2 Flow Rate FiO2 12/27/17 14:12 98 40 12/27/17 14:00 108 0 120/70 (87) 12/27/17 12:00 97.4 12/23/17 14:51 Auto-Vent 12/23/17 11:10 15.00 Intake and Output 12/27/17 12/27/1718 08:00 16:00 00:00 Intake Total 490 ml 350 ml Output Total 1100 ml Balance -610 ml 350 ml Result Diagram: 12/27/17 0535 12/27/17 0535 Imaging Last Impressions Chest X-Ray 12/27/17 06 Signed Impressions: Service Date/Time: Wednesday, December 27, 2017 03:51 - CONCLUSION: 1. Cardiomegaly and findings of vascular congestion without overt failure. Bilateral effusions. There has been no significant change when compared to the prior exam. Prasad Zapata MD Lower Extremity Ultrasound 12/23/17 0000 Signed Impressions: Service Date/Time: Saturday, December 23, 2017 16:46 - CONCLUSION: 1. Negative for deep venous thrombosis in the lower extremities. Mannie Croft MD Last Impressions Chest X-Ray 12/26/17 06 Signed Impressions: Service Date/Time: Tuesday, December 26, 2017 03:52 - CONCLUSION: 1. Cardiomegaly and findings of vascular congestion without overt failure. There has been no significant change when compared to the prior exam. Prasad Zapata MD Lower Extremity Ultrasound 12/23/17 0000 Signed Impressions: Service Date/Time: Saturday, December 23, 2017 16:46 - CONCLUSION: 1. Negative for deep venous thrombosis in the lower extremities. Mannie Croft MD Objective Remarks GENERAL: Morbidly obese 62-year-old male currently resting in bed in no acute distress SKIN: Warm and dry. HEAD: Atraumatic. Normocephalic. EYES: Pupils equal and round. No scleral icterus. No injection or drainage. ENT: No nasal bleeding or discharge. Mucous membranes pink and moist. NECK: Trachea midline. No JVD. CARDIOVASCULAR: Regular rate and rhythm. S1, S2. No S4. Without murmur RESPIRATORY: Diminished breath sounds throughout. No end expiratory wheeze appreciated. GASTROINTESTINAL: Abdomen soft, non-tender, nondistended. Hepatic and splenic margins not palpable. MUSCULOSKELETAL: Extremities with chronic venous stasis/lymphedema bilateral lower extremities. Positive onychomycosis bilateral lower extremity nail NEUROLOGICAL: Arousable on the ventilator, currently on Versed and fentanyl infusion. Moves all 4 extremities spontaneously. Positive gag. Positive corneal reflex. Date of Insertion: Dec 23, 2017 Line: Central Venous Catheter Side: Right Location: Femoral A/P Assessment and Plan Neuro/Psych: History of TIA Currently midazolam drip at 7 mg an hour/fentanyl drips at 150 mcg an hour for sedation/analgesia while intubated. Patient becomes extremely agitated with discontinuation or weaning of sedation. Plans for decreasing fentanyl infusion , Goal of RASS -[address] brain if clinically indicated. Patient previously arousable and following commands CV: Chronic diastolic heart failure ejection fraction 55% 08/30 Hypertension/essential Dyslipidemia Atrial fibrillation currently in first degree AV block Moderate to severe pulmonary hypertension -pulmonary arterial systolic pressure 57 mmHg 08/30 EKG revealed first-degree AV block. Incomplete right bundle branch block. 2D echocardiogram 12% revealed EF 55%. LVH. PASP 57 mmHg Home medications metoprolol tartrate 75 mg twice daily and diltiazem extended release 240 mg daily held with borderline blood pressures Digoxin level 0.9. On 0.125 mg daily at [facility] and will restart Limited echocardiogram 12/24 revealed EF 55%. Resume atorvastatin 40 mg p.o. daily for dyslipidemia Currently holding torsemide 40 mg daily/home medication. Decrease furosemide 40 mg IV to daily. Resp: Acute on chronic hypoxic respiratory failure DENIS COPD/oxygen dependent PRVC 15/700/1.2/8/50 Ventilator bundle Albuterol/ipratropium aerosols every 4 hours with albuterol aerosols every 2 hours as needed dyspnea Add budesonide 0.5/2 1 inhalation twice daily Methylprednisolone succinate 40 mg IV every 8 hours Chest x-ray revealed signs of pulmonary edema with cardiomegaly chest x-ray in a.m 12/27-unchanged GI: Elevated alkaline phosphatase Continue tube feeding with Glucerna 1. @55 cc an hour Lansoprazole for GI prophylaxis Docusate sodium/senna 1 tablet twice daily for bowel regimen Follow-up KUB Dulcolax suppository today : BPH Barrientos catheter indicated for accurate I's and O's in a critically ill patient receiving diuretics Endo: Diabetes mellitus Secondary hyperparathyroidism Sliding scale insulin with Novulin R with Accu-Cheks every 6 hours to maintain euglycemia/medium regimen Continue calcium acetate 667 mg by tube 3 times daily TSH 1.94 Renal: Chronic kidney disease stage IIIa Monitor urine output Accurate I's and O's Baseline creatinine between 1.6 and 1.9. Currently 1.85 Avoid nephrotoxic medication Heme: Chronic rivaroxaban use Normocytic anemia Leukopenia Resumed rivaroxaban 10 mg daily Monitor CBC daily. Follow trends Resume iron sulfate twice daily ID: On ampicillin 500 mg 3 times daily question chronic lower extremity cellulitis Blood cultures 2, UA, sputum ordered 12/23 with results -NGTD Influenza a and B negative Urine Legionella pneumococcal antigens negative MSK: Chronic lymphedema/venous stasis PT evaluate and treat Obtain specialty bed secondary to increased BMI FEN: Replace electrolytes as clinically indicated Access -Utilize peripheral IV. Right femoral CVL day #4 placed by ED physician 12/23 Prophylaxis -GI -lansoprazole -DVT -SCD/rivaroxaban provides DVT prophylaxis Critical Care: my billing statement This patient remains critically ill with one or more organ systems which are or may become a threat to life. I have spent in excess of 30 minutes discontinuously in the care and management of this patient. This time is exclusive of procedures, and includes, but is not limited to, evaluation of the patient, review of the medical record, discussions with family, consultants, nursing staff, or respiratory therapy, and documentation in the medical record. Physician Meg Toledo MD Dec 27, 2017 14:40
--- NOTE | 2017-12-27 15:08 | RADRPT ---
EXAM DATE/TIME: 12/27/2017 14:24 [facility] COMPARISON: SMALL BOWEL SERIES DOUBLE CONTRAST, December 17, 2017, 9:43. INDICATIONS : Distention MEDICAL HISTORY : Cirrhosis. Chronic obstructive pulmonary disease. Hypertension. A-Fib SURGICAL HISTORY : Appendectomy. ENCOUNTER: Initial ACUITY: 1 week PAIN SCORE: Non-responsive. LOCATION: Abdomen FINDINGS: There is contrast now present throughout the distal colon. Scattered colonic diverticula are opacifie d. There is mild gaseous distention of the opacified portions of the colon. Paucity of small bowel ga s. NG tube seen overlying the upper abdomen. Regional skeleton grossly stable. CONCLUSION: Contrast in the distal colon. Renny Hinojosa MD on December 27, 2017 at 15:05 Board Certified Radiologist. This report was verified electronically.
[2017-12-27] MEDS: RESP: ALBUTEROL 2.5 MG/3 ML NEB (PRN) INH (19:49)
[2017-12-28] VITALS (19 sets, daily range): BP systolic 118–145; BP diastolic 64–74; PULSE 61–85; RESP 0–16; TEMP 98–98.4; O2SAT 94–100
[2017-12-28] MEDS: INSULIN NovoLIN REGULAR SUPPLEMENTAL SCALE SQ SCH ×7 (00:45→23:45)
[2017-12-28] MEDS: PIPERACIL-TAZO 3.375 GM PREMIX 50 ML IV SCH ×5 (01:52→23:28)
[2017-12-28] MEDS: MIDAZOLAM 100 MG/100 ML INJ 100 ML IV PRN ×2 (02:45→18:10)
[2017-12-28] MEDS: CHLORHEXIDINE GLUCONATE 2 % 1 PACK (2 CLOTHS) TOP SCH (03:44)
[2017-12-28] MEDS: PROPOFOL 1000 MG/100 ML INJ 100 ML IV PRN ×3 (03:45→14:42)
--- NOTE | 2017-12-28 05:00 | RADRPT ---
EXAM DATE/TIME: 12/28/2017 03:51 [facility] COMPARISON: CHEST SINGLE AP, December 27, 2017, 3:51. INDICATIONS : Shortness of breath, possible pulmonary disease. MEDICAL HISTORY : Cirrhosis. Chronic obstructive pulmonary disease. Hypertension. A-Fib SURGICAL HISTORY : Appendectomy. ENCOUNTER: Subsequent ACUITY: 1 week PAIN SCORE: Non-responsive. LOCATION: Bilateral chest FINDINGS: Mild bibasilar consolidation and small effusions are slightly worse in the interim. No pneumothorax s een. Mild cardiomegaly, stable. Endotracheal tube tip is approximately 3 cm above the eulalia. Nasogastric tube courses into the stoma ch. CONCLUSION: Modest worsening mild bibasilar consolidation and small effusions. Renny Smith MD on December 28, 2017 at 4:58 Board Certified Radiologist. This report was verified electronically.
[2017-12-28] MEDS: methylPREDNISolone SOD SUCC 40 MG/1 ML VIAL IV PUSH SCH ×3 (05:53→23:28)
[2017-12-28] MEDS: RESP: ALBUTEROL 2.5 MG/3 ML NEB (PRN) INH (07:58)
[2017-12-28] MEDS: RESP: BUDESONIDE 0.5 MG/2 ML NEB NEB SCH ×2 (07:58→20:43)
[2017-12-28 08:09] LABS: AUTOMATED NEUTROPHIL # 7.1 TH/MM3 (1.8-7.7); BASOPHIL % 0.1 % (0.0-2.0); HEMATOCRIT 30.7 % (39.0-51.0); HEMOGLOBIN 9.2 GM/DL (13.0-17.0); LYMPH % 4.4 % (9.0-44.0); LYMPHOCYTE # 0.3 TH/MM3 (1.0-4.8); MEAN CELL VOLUME 84.8 FL (80.0-100.0); MEAN CORPUSCULAR HEMOGLOBIN 25.5 PG (27.0-34.0); MEAN CORPUSCULAR HGB CONC 30.1 % (32.0-36.0); MEAN PLATELET VOLUME 7.5 FL (7.0-11.0); MONO % 5.6 % (0.0-8.0); MONOCYTE # 0.4 TH/MM3 (0-0.9); NEUT % 89.9 % (16.0-70.0); PLATELET COUNT 273 TH/MM3 (150-450); RED BLOOD COUNT 3.62 MIL/MM3 (4.50-5.90); RED CELL DISTRIBUTION WIDTH 19.2 % (11.6-17.2); WHITE BLOOD COUNT 7.9 TH/MM3 (4.0-11.0)
[2017-12-28 08:25] LABS: BICARBONATE 28.4 MEQ/L (21.0-32.0); CALCIUM 8.4 MG/DL (8.5-10.1); CREATININE 1.92 MG/DL (0.60-1.30)
[2017-12-28 08:29] LABS: RANDOM VANCOMYCIN 36.9 COMMENT
[2017-12-28] MEDS: CALCIUM ACETATE 667 MG CAP PO SCH ×3 (08:49→18:11)
[2017-12-28] MEDS: DIGOXIN SOLUTION 0.125 MG/2.5 ML CUP PO SCH (08:49)
[2017-12-28] MEDS: LANSOPRAZOLE SOLUTAB 30 MG TAB G-TUBE SCH (08:50)
[2017-12-28] MEDS: CHLORHEXIDINE 0.12% (ORAL KIT) 15 ML CUP MT SCH ×2 (08:50→20:00)
[2017-12-28] MEDS: DOCUSATE SODIUM 50 MG/SENNA 8.6 MG TAB PO SCH ×2 (08:50→20:34)
[2017-12-28] MEDS: FERROUS SULFATE 325 MG (65 MG ELEMENTAL IRON) TAB PO SCH ×2 (08:50→20:49)
[2017-12-28] MEDS: RIVAROXABAN 10 MG TAB PO SCH (08:50)
[2017-12-28] MEDS: SODIUM CHLORIDE 0.9% FLUSH 10 ML FLUSH IV FLUSH SCH ×2 (08:50→20:49)
[2017-12-28] MEDS: ARTIFICIAL TEARS OPTH SOLN 15 ML BTL EACH EYE SCH ×3 (09:00→18:00)
[2017-12-28] MEDS: AZITHROMYCIN INJ 500 MG in SODIUM CHLOR 0.9% 250 ML INJ 250 ML IV SCH (12:25)
[2017-12-28] MEDS: VANCOMYCIN INJ 2,000 MG in SODIUM CHLORID 0.9% 500 ML INJ 500 ML IV SCH (12:35)
--- NOTE | 2017-12-28 18:11 | HHI.CCPN ---
Subjective Remarks/Hospital Course This is a 62-year-old male. Date of admission 12/23/2017. Past medical history includes atrial fibrillation on chronic rivaroxaban use, chronic diastolic heart failure ejection fraction 55%, COPD, obstructive sleep apnea on CPAP nocturnally, history of 3 times daily, chronic lipidemia/venous stasis, hypertension, chronic kidney disease stage IIIa, diabetes mellitus and chronic low back pain. Patient is a resident of [facility] who presented here to [facility] with acute onset of shortness of breath this a.m. at his nursing facility. He is brought to the emergency department for evaluation. According to Dr. Jameson, patient was tachypneic and becoming more uncomfortable and experienced hypoxic hypercapnic respiratory failure in the ED. Patient was intubated using glide scope. Furosemide 40 mg IV. Patient was noted to be hyperkalemic with potassium 5.7. D50 50 mL IV given. Novolin R 8 units IV given along with 1 ampule of D50. Calcium gluconate 1 g IV given. Repeat potassium pending. Patient became hypotensive propofol drip currently on midazolam and fentanyl drips for sedation while intubated. Initial blood gas reveals significant respiratory acidosis. We are asked to admit the patient. 12/24: Currently biting on endotracheal tube. Will increase sedation. FiO2 50% . Continue diuresis. Afebrile. Arousable and does follow commands on the ventilator. No bowel movement. 12/25: Afebrile. Resting in bed in no acute distress. FiO2 down to 50%. PEEP today. Tolerating diet. Subjective 12/26: FiO2 stable at 50%. PEEP is currently at 8. Tolerating diet. No bowel movement today. Extremely agitated off sedative medications. 12/27: Patient continues on sedation currently fentanyl 150 mcgs/hr Versed 7 mg/ hour, currently tolerating CPAP trials. No bowel movement, reported minimal tube feed residual. 12/28: Failed CPAP trials today did not last longer than 5 minutes with repeated efforts. Patient awake not following commands. Comes combative when totally off sedation plan to transition to Precedex for ventilator weaning Objective Vital Signs Date Time Temp Pulse Resp B/P (MAP) Pulse Ox O2 Delivery O2 Flow Rate FiO2 12/28/17 16:46 100 35 12/28/17 12:13 62 16 118/64 (82) 12/28/17 04:00 98.0 Intake and Output 12/28/17 12/28/17 12/29/17 08:00 16:00 00:00 Intake Total 700 ml Output Total 1100 ml 1000 ml Balance -400 ml -1000 ml Result Diagram: 12/28/17 0730 12/28/17 0730 Imaging Last Impressions Chest X-Ray 12/28/17 0600 Signed Impressions: Service Date/Time: Thursday, December 28, 2017 03:51 - CONCLUSION: Modest worsening mild bibasilar consolidation and small effusions. Renny Smith MD Abdomen X-Ray 12/27/17 0000 Signed Impressions: Service Date/Time: Wednesday, December 27, 2017 14:24 - CONCLUSION: Contrast in the distal colon. Renny Hinojosa MD Lower Extremity Ultrasound 12/23/17 Signed Impressions: Service Date/Time: Saturday, December 23, 2017 16:46 - CONCLUSION: 1. Negative for deep venous thrombosis in the lower extremities. Mannie Croft MD Last Impressions Chest X-Ray 12/27/17599 Signed Impressions: Service Date/Time: Wednesday, December 27, 2017 03:51 - CONCLUSION: 1. Cardiomegaly and findings of vascular congestion without overt failure. Bilateral effusions. There has been no significant change when compared to the prior exam. Prasad Zaapta MD Lower Extremity Ultrasound 12/23/17 Signed Impressions: Service Date/Time: Saturday, December 23, 2017 16:46 - CONCLUSION: 1. Negative for deep venous thrombosis in the lower extremities. Mannie Croft MD Last Impressions Chest X-Ray 12/26/17 06 Signed Impressions: Service Date/Time: Tuesday, December 26, 2017 03:52 - CONCLUSION: 1. Cardiomegaly and findings of vascular congestion without overt failure. There has been no significant change when compared to the prior exam. Prasad Zapata MD Lower Extremity Ultrasound 12/23/17 0000 Signed Impressions: Service Date/Time: Saturday, December 23, 2017 16:46 - CONCLUSION: 1. Negative for deep venous thrombosis in the lower extremities. Mannie Croft MD Objective Remarks GENERAL: Morbidly obese 62-year-old male currently resting in bed in no acute distress SKIN: Warm and dry. HEAD: Atraumatic. Normocephalic. EYES: Pupils equal and round. No scleral icterus. No injection or drainage. ENT: No nasal bleeding or discharge. Mucous membranes pink and moist. NECK: Trachea midline. No JVD. CARDIOVASCULAR: Regular rate and rhythm. S1, S2. No S4. Without murmur RESPIRATORY: Diminished breath sounds throughout. No end expiratory wheeze appreciated. GASTROINTESTINAL: Abdomen soft, non-tender, nondistended. Hepatic and splenic margins not palpable. MUSCULOSKELETAL: Extremities with chronic venous stasis/lymphedema bilateral lower extremities. Positive onychomycosis bilateral lower extremity nail NEUROLOGICAL: Arousable on the ventilator, currently on Versed and fentanyl infusion. Moves all 4 extremities spontaneously. Positive gag. Positive corneal reflex. Date of Insertion: Dec 23, 2017 Line: Central Venous Catheter Side: Right Location: Femoral A/P Assessment and Plan Neuro/Psych: History of TIA Currently midazolam drip at 7 mg an hour/fentanyl drips at 150 mcg an hour for sedation/analgesia while intubated. Patient becomes extremely agitated with discontinuation or weaning of sedation. [facility] Goal of RASS -[address] brain if clinically indicated. Patient arousable and following commands CV: Chronic diastolic heart failure ejection fraction 55% 08/30 Hypertension/essential Dyslipidemia Atrial fibrillation currently in first degree AV block Moderate to severe pulmonary hypertension -pulmonary arterial systolic pressure 57 mmHg 08/30 EKG revealed first-degree AV block. Incomplete right bundle branch block. 2D echocardiogram 12% revealed EF 55%. LVH. PASP 57 mmHg Home medications metoprolol tartrate 75 mg twice daily and diltiazem extended release 240 mg daily held with borderline blood pressures Digoxin level 0.9. On 0.125 mg daily at [facility] and will restart Limited echocardiogram 12/24 revealed EF 55%. Resume atorvastatin 40 mg p.o. daily for dyslipidemia Currently holding torsemide 40 mg daily/home medication. Decrease furosemide 40 mg IV to daily. Resp: Acute on chronic hypoxic respiratory failure DENIS [facility] Ventilator bundle Albuterol/ipratropium aerosols every 4 hours with albuterol aerosols every 2 hours as needed dyspnea Add budesonide 0.5/2 1 inhalation twice daily Methylprednisolone succinate 40 mg IV every 8 hours Chest x-ray revealed signs of pulmonary edema with cardiomegaly chest x-ray in a.m 12/28-unchanged GI: Elevated alkaline phosphatase Continue tube feeding with Glucerna 1. @55 cc an hour Lansoprazole for GI prophylaxis Docusate sodium/senna 1 tablet twice daily for bowel regimen Follow-up KUB Dulcolax suppository today. Large BM 12/28 x 3 : BPH Barrientos catheter indicated for accurate I's and O's in a critically ill patient receiving diuretics Endo: Diabetes mellitus Secondary hyperparathyroidism Sliding scale insulin with Novulin R with Accu-Cheks every 6 hours to maintain euglycemia/medium regimen Continue calcium acetate 667 mg by tube 3 times daily TSH 1.94 Renal: Chronic kidney disease stage IIIa Monitor urine output Accurate I's and O's Baseline creatinine between 1.6 and 1.9. Avoid nephrotoxic medication Heme: Chronic rivaroxaban use Normocytic anemia Leukopenia Resumed rivaroxaban 10 mg daily Monitor CBC daily. Follow trends Resume iron sulfate twice daily ID: Was on ampicillin 500 mg 3 times daily question chronic lower extremity cellulitis Blood cultures 2, UA, sputum ordered 12/23 with results -NGTD Influenza a and B negative Urine Legionella pneumococcal antigens negative MSK: Chronic lymphedema/venous stasis PT evaluate and treat Obtain specialty bed secondary to increased BMI FEN: Replace electrolytes as clinically indicated Access -Utilize peripheral IV. Right femoral CVL day #5 placed by ED physician 12/23 Prophylaxis -GI -lansoprazole -DVT -SCD/rivaroxaban provides DVT prophylaxis Critical Care: my billing statement Level 3 follow up Physician Meg Toledo MD Dec 28, 2017 18:11
[2017-12-29] VITALS (19 sets, daily range): BP systolic 119–150; BP diastolic 65–90; PULSE 74–101; RESP 0–24; TEMP 98.2–99.5; O2SAT 92–100
[2017-12-29] MEDS: PROPOFOL 1000 MG/100 ML INJ 100 ML IV PRN (00:13)
[2017-12-29] MEDS: CHLORHEXIDINE GLUCONATE 2 % 1 PACK (2 CLOTHS) TOP SCH (01:55)
[2017-12-29] MEDS: RESP: ALBUTEROL 2.5 MG/3 ML NEB (PRN) INH ×3 (03:40→20:49)
[2017-12-29] MEDS: INSULIN NovoLIN REGULAR SUPPLEMENTAL SCALE SQ SCH ×6 (04:00→23:31)
[2017-12-29] MEDS: methylPREDNISolone SOD SUCC 40 MG/1 ML VIAL IV PUSH SCH ×3 (05:25→20:45)
[2017-12-29] MEDS: PIPERACIL-TAZO 3.375 GM PREMIX 50 ML IV SCH ×4 (05:26→23:20)
--- NOTE | 2017-12-29 05:56 | RADRPT ---
EXAM DATE/TIME: 12/29/2017 04:38 [facility] COMPARISON: CHEST SINGLE AP, December 28, 2017, 3:51. INDICATIONS : Short of breath. MEDICAL HISTORY : Cirrhosis. Chronic obstructive pulmonary disease. Hypertension. A-Fib SURGICAL HISTORY : Appendectomy. ENCOUNTER: Subsequent ACUITY: 1 week PAIN SCORE: 0/10 LOCATION: Bilateral chest FINDINGS: Mild bibasilar consolidation and small effusions not significantly changed. No pneumothorax. Mild cardiomegaly is unchanged. Endotracheal tube tip is approximately 3 cm above the eulalia. Nasogastric tube courses into the stoma ch. CONCLUSION: No significant change. Renny Smith MD on December 29, 2017 at 5:54 Board Certified Radiologist. This report was verified electronically.
[2017-12-29 07:42] LABS: AUTOMATED NEUTROPHIL # 7.9 TH/MM3 (1.8-7.7); BASOPHIL % 0.2 % (0.0-2.0); HEMATOCRIT 28.5 % (39.0-51.0); HEMOGLOBIN 8.7 GM/DL (13.0-17.0); LYMPH % 3.1 % (9.0-44.0); LYMPHOCYTE # 0.3 TH/MM3 (1.0-4.8); MEAN CELL VOLUME 83.4 FL (80.0-100.0); MEAN CORPUSCULAR HEMOGLOBIN 25.4 PG (27.0-34.0); MEAN CORPUSCULAR HGB CONC 30.5 % (32.0-36.0); MEAN PLATELET VOLUME 7.3 FL (7.0-11.0); MONO % 2.9 % (0.0-8.0); MONOCYTE # 0.2 TH/MM3 (0-0.9); NEUT % 93.8 % (16.0-70.0); PLATELET COUNT 238 TH/MM3 (150-450); RED BLOOD COUNT 3.42 MIL/MM3 (4.50-5.90); RED CELL DISTRIBUTION WIDTH 18.5 % (11.6-17.2); WHITE BLOOD COUNT 8.4 TH/MM3 (4.0-11.0)
[2017-12-29 08:14] LABS: BICARBONATE 25.5 MEQ/L (21.0-32.0); CALCIUM 8.7 MG/DL (8.5-10.1); CREATININE 1.72 MG/DL (0.60-1.30)
[2017-12-29] MEDS: RIVAROXABAN 10 MG TAB PO SCH (08:23)
[2017-12-29] MEDS: LANSOPRAZOLE SOLUTAB 30 MG TAB G-TUBE SCH (08:23)
[2017-12-29] MEDS: FERROUS SULFATE 325 MG (65 MG ELEMENTAL IRON) TAB PO SCH ×2 (08:23→20:44)
[2017-12-29] MEDS: DOCUSATE SODIUM 50 MG/SENNA 8.6 MG TAB PO SCH ×2 (08:23→20:44)
[2017-12-29] MEDS: CALCIUM ACETATE 667 MG CAP PO SCH ×3 (08:23→17:00)
[2017-12-29] MEDS: FUROSEMIDE 40 MG/4 ML VIAL IV PUSH SCH (08:24)
[2017-12-29] MEDS: SODIUM CHLORIDE 0.9% FLUSH 10 ML FLUSH IV FLUSH SCH ×2 (08:24→20:45)
[2017-12-29] MEDS: DIGOXIN SOLUTION 0.125 MG/2.5 ML CUP PO SCH (08:25)
[2017-12-29] MEDS: CHLORHEXIDINE 0.12% (ORAL KIT) 15 ML CUP MT SCH ×2 (08:25→20:44)
[2017-12-29] MEDS: ARTIFICIAL TEARS OPTH SOLN 15 ML BTL EACH EYE SCH ×3 (09:00→17:00)
[2017-12-29] MEDS: RESP: BUDESONIDE 0.5 MG/2 ML NEB NEB SCH ×2 (09:58→20:49)
[2017-12-29] MEDS: AZITHROMYCIN INJ 500 MG in SODIUM CHLOR 0.9% 250 ML INJ 250 ML IV SCH (10:27)
[2017-12-29] MEDS: VANCOMYCIN INJ 2,000 MG in SODIUM CHLORID 0.9% 500 ML INJ 500 ML IV SCH (12:48)
[2017-12-29] MEDS: DEXMEDETOMIDINE INJ 200 MCG in SODIUM CHLORIDE 0.9% INJ 50 ML IV PRN ×2 (16:45→21:54)
--- NOTE | 2017-12-29 17:15 | HHI.CCPN ---
Subjective Remarks/Hospital Course This is a 62-year-old male. Date of admission 12/23/2017. Past medical history includes atrial fibrillation on chronic rivaroxaban use, chronic diastolic heart failure ejection fraction 55%, COPD, obstructive sleep apnea on CPAP nocturnally, history of 3 times daily, chronic lipidemia/venous stasis, hypertension, chronic kidney disease stage IIIa, diabetes mellitus and chronic low back pain. Patient is a resident of [facility] who presented here to [facility] with acute onset of shortness of breath this a.m. at his nursing facility. He is brought to the emergency department for evaluation.F. According to Dr. Jameson, patient was tachypneic and becoming more uncomfortable and experienced hypoxic hypercapnic respiratory failure in the ED. Patient was intubated using glide scope. Furosemide 40 mg IV. Patient was noted to be hyperkalemic with potassium 5.7. D50 50 mL IV given. Novolin R 8 units IV given along with 1 ampule of D50. Calcium gluconate 1 g IV given. Repeat potassium pending. Patient became hypotensive propofol drip currently on midazolam and fentanyl drips for sedation while intubated. Initial blood gas reveals significant respiratory acidosis. We are asked to admit the patient. 12/24: Currently biting on endotracheal tube. Will increase sedation. FiO2 50% . Continue diuresis. Afebrile. Arousable and does follow commands on the ventilator. No bowel movement. 12/25: Afebrile. Resting in bed in no acute distress. FiO2 down to 50%. PEEP today. Tolerating diet. Subjective 12/26: FiO2 stable at 50%. PEEP is currently at 8. Tolerating diet. No bowel movement today. Extremely agitated off sedative medications. 15: Patient continues on sedation currently fentanyl 150 mcgs/hr Versed 7 mg/ hour, currently tolerating CPAP trials. No bowel movement, reported minimal tube feed residual. 16: Failed CPAP trials today did not last longer than 5 minutes with repeated efforts. Patient awake not following commands. Comes combative when totally off sedation plan to transition to Precedex for ventilator weaning. 12/29: Patient continues on CPAP trials, all sedation is off. Plan for SBT trials . Patient currently having high pressure requirements pressure support of 18 continuing to wean down. Objective Vital Signs Date Time Temp Pulse Resp B/P (MAP) Pulse Ox O2 Delivery O2 Flow Rate FiO2 12/29/17 16:26 96 40 12/29/17 16:00 98.2 101 24 150/90 (110) Intake and Output 12/29/17 12/29/17 12/30/17 08:00 16:00 00:00 Intake Total 855.2 ml 300 ml Output Total 750 ml 2250 ml Balance 105.2 ml 300 ml -2250 ml Result Diagram: 12/29/17 0724 12/29/17 0724 Imaging Last Impressions Chest X-Ray 12/28/17 06 Signed Impressions: Service Date/Time: Thursday, December 28, 2017 03:51 - CONCLUSION: Modest worsening mild bibasilar consolidation and small effusions. Renny Smith MD Abdomen X-Ray 12/27/17 Signed Impressions: Service Date/Time: Wednesday, December 27, 2017 14:24 - CONCLUSION: Contrast in the distal colon. Renny Hinojosa MD Lower Extremity Ultrasound 12/23/17 Signed Impressions: Service Date/Time: Saturday, December 23, 2017 16:46 - CONCLUSION: 1. Negative for deep venous thrombosis in the lower extremities. Mannie Croft MD Last Impressions Chest X-Ray 12/27/17599 Signed Impressions: Service Date/Time: Wednesday, December 27, 2017 03:51 - CONCLUSION: 1. Cardiomegaly and findings of vascular congestion without overt failure. Bilateral effusions. There has been no significant change when compared to the prior exam. Prasad Zapata MD Lower Extremity Ultrasound 12/23/17 Signed Impressions: Service Date/Time: Saturday, December 23, 2017 16:46 - CONCLUSION: 1. Negative for deep venous thrombosis in the lower extremities. Mannie Croft MD Last Impressions Chest X-Ray 12/26/17 06 Signed Impressions: Service Date/Time: Tuesday, December 26, 2017 03:52 - CONCLUSION: 1. Cardiomegaly and findings of vascular congestion without overt failure. There has been no significant change when compared to the prior exam. Prasad Zapata MD Lower Extremity Ultrasound 12/23/17 0000 Signed Impressions: Service Date/Time: Saturday, December 23, 2017 16:46 - CONCLUSION: 1. Negative for deep venous thrombosis in the lower extremities. Mannie Croft MD Objective Remarks GENERAL: Morbidly obese 62-year-old male currently resting in bed in no acute distress, nodding to yes and no questions SKIN: Warm and dry. HEAD: Atraumatic. Normocephalic. EYES: Pupils equal and round. No scleral icterus. No injection or drainage. ENT: No nasal bleeding or discharge. Mucous membranes pink and moist. NECK: Trachea midline. No JVD. CARDIOVASCULAR: Regular rate and rhythm. S1, S2. No S4. Without murmur RESPIRATORY: Diminished breath sounds throughout. No end expiratory wheeze appreciated. GASTROINTESTINAL: Abdomen soft, non-tender, nondistended. Hepatic and splenic margins not palpable. MUSCULOSKELETAL: Extremities with chronic venous stasis/lymphedema bilateral lower extremities. Positive onychomycosis bilateral lower extremity nail NEUROLOGICAL: Arousable on the ventilator, off sedation since 7 AM. moves all 4 extremities spontaneously. Positive gag. Positive corneal reflex. Date of Insertion: Dec 23, 2017 Line: Central Venous Catheter Side: Right Location: Femoral A/P Assessment and Plan Neuro/Psych: History of TIA Patient becomes extremely agitated with discontinuation or weaning of sedation. Transition to Precedex for ventilator weaning if needed for agitation Goal of RASS [address] brain if clinically indicated. Patient following commands CV: Chronic diastolic heart failure ejection fraction 55% 08/30 Hypertension/essential Dyslipidemia Atrial fibrillation currently in first degree AV block Moderate to severe pulmonary hypertension -pulmonary arterial systolic pressure 57 mmHg 08/30 EKG revealed first-degree AV block. Incomplete right bundle branch block. 2D echocardiogram 12% revealed EF 55%. LVH. PASP 57 mmHg Home medications metoprolol tartrate 75 mg twice daily and diltiazem extended release 240 mg daily held with borderline blood pressures Digoxin level 0.9. On 0.125 mg daily at [facility] and will restart Limited echocardiogram 12/24 revealed EF 55%. Resume atorvastatin 40 mg p.o. daily for dyslipidemia Currently holding torsemide 40 mg daily/home medication. Furosemide 40 mg IV to daily. Resp: Acute on chronic hypoxic respiratory failure DENIS COPD/oxygen dependent [facility] 15/1.10/22/49 Ventilator bundle Albuterol/ipratropium aerosols every 4 hours with albuterol aerosols every 2 hours as needed dyspnea Add budesonide 0.5/2 1 inhalation twice daily Methylprednisolone succinate 40 mg IV every 8 hours Chest x-ray revealed signs of pulmonary edema with cardiomegaly chest x-ray in a.m 12/28-unchanged CPAP trials to be continued throughout the night if tolerated by patient, and clinically stable for planned SBT trials and possible extubation GI: Elevated alkaline phosphatase Continue tube feeding with Glucerna 1. @55 cc an hour-on hold for possible extubation Lansoprazole for GI prophylaxis Docusate sodium/senna 1 tablet twice daily for bowel regimen Follow-up KUB Dulcolax suppository today. Large BM 12/28 x 3, and 12/29 : BPH Barrientos catheter indicated for accurate I's and O's in a critically ill patient receiving diuretics Endo: Diabetes mellitus Secondary hyperparathyroidism Sliding scale insulin with Novulin R with Accu-Cheks every 6 hours to maintain euglycemia/medium regimen Continue calcium acetate 667 mg by tube 3 times daily TSH 1.94 Renal: Chronic kidney disease stage IIIa Monitor urine output Accurate I's and O's Baseline creatinine between 1.6 and 1.9. Avoid nephrotoxic medication Heme: Chronic rivaroxaban use Normocytic anemia Leukopenia Resumed rivaroxaban 10 mg daily Monitor CBC daily. Follow trends Continue Ferrous sulfate twice daily ID: Was on ampicillin 500 mg 3 times daily question chronic lower extremity cellulitis Blood cultures 2, UA, sputum ordered 12/23 with results -NGTD Influenza a and B negative Urine Legionella pneumococcal antigens negative MSK: Chronic lymphedema/venous stasis PT evaluate and treat Obtain specialty bed secondary to increased BMI FEN: Replace electrolytes as clinically indicated Access -Utilize peripheral IV. Right femoral CVL day #5 placed by ED physician 12/23 Prophylaxis -GI -lansoprazole -DVT -SCD/rivaroxaban provides DVT prophylaxis Critical Care: my billing statement Level 3 folow up Physician Meg Toledo MD Dec 29, 2017 17:15
[2017-12-30] VITALS (22 sets, daily range): BP systolic 131–171; BP diastolic 66–92; PULSE 73–101; RESP 0–26; TEMP 99.2–99.7; O2SAT 92–98
[2017-12-30] MEDS: CHLORHEXIDINE GLUCONATE 2 % 1 PACK (2 CLOTHS) TOP SCH ×2 (01:18→23:14)
[2017-12-30] MEDS: INSULIN NovoLIN REGULAR SUPPLEMENTAL SCALE SQ SCH ×6 (03:50→23:13)
[2017-12-30] MEDS: methylPREDNISolone SOD SUCC 40 MG/1 ML VIAL IV PUSH SCH ×3 (05:43→20:19)
[2017-12-30] MEDS: PIPERACIL-TAZO 3.375 GM PREMIX 50 ML IV SCH ×4 (05:43→23:13)
[2017-12-30] MEDS: DOCUSATE SODIUM 50 MG/SENNA 8.6 MG TAB PO SCH ×2 (07:39→20:18)
[2017-12-30] MEDS: CHLORHEXIDINE 0.12% (ORAL KIT) 15 ML CUP MT SCH ×2 (08:00→20:18)
[2017-12-30] MEDS: RESP: BUDESONIDE 0.5 MG/2 ML NEB NEB SCH ×2 (08:49→20:41)
[2017-12-30] MEDS: FERROUS SULFATE 325 MG (65 MG ELEMENTAL IRON) TAB PO SCH ×2 (09:00→20:18)
[2017-12-30] MEDS: ARTIFICIAL TEARS OPTH SOLN 15 ML BTL EACH EYE SCH ×3 (09:00→16:56)
--- NOTE | 2017-12-30 09:03 | HHI.CCPN ---
Subjective Remarks/Hospital Course This is a 62-year-old male. Date of admission 12/23/2017. Past medical history includes atrial fibrillation on chronic rivaroxaban use, chronic diastolic heart failure ejection fraction 55%, COPD, obstructive sleep apnea on CPAP nocturnally, history of 3 times daily, chronic lipidemia/venous stasis, hypertension, chronic kidney disease stage IIIa, diabetes mellitus and chronic low back pain. Patient is a resident of [facility] who presented here to [facility] with acute onset of shortness of breath this a.m. at his nursing facility. He is brought to the emergency department for evaluation. According to Dr. Jameson, patient was tachypneic and becoming more uncomfortable and experienced hypoxic hypercapnic respiratory failure in the ED. Patient was intubated using glide scope. Furosemide 40 mg IV. Patient was noted to be hyperkalemic with potassium 5.7. D50 50 mL IV given. Novolin R 8 units IV given along with 1 ampule of D50. Calcium gluconate 1 g IV given. Repeat potassium pending. Patient became hypotensive propofol drip currently on midazolam and fentanyl drips for sedation while intubated. Initial blood gas reveals significant respiratory acidosis. We are asked to admit the patient. 12/24: Currently biting on endotracheal tube. Will increase sedation. FiO2 50% . Continue diuresis. Afebrile. Arousable and does follow commands on the ventilator. No bowel movement. 12/25: Afebrile. Resting in bed in no acute distress. FiO2 down to 50%. PEEP today. Tolerating diet. Subjective 12/26: FiO2 stable at 50%. PEEP is currently at 8. Tolerating diet. No bowel movement today. Extremely agitated off sedative medications. 12/27: Patient continues on sedation currently fentanyl 150 mcgs/hr Versed 7 mg/ hour, currently tolerating CPAP trials. No bowel movement, reported minimal tube feed residual. 16: Failed CPAP trials today did not last longer than 5 minutes with repeated efforts. Patient awake not following commands. Comes combative when totally off sedation plan to transition to Precedex for ventilator weaning 12/29: Patient continues on CPAP trials, all sedation is off. Plan for SBT trials . Patient currently having high pressure requirements pressure support of 18 continuing to wean down. 12/30: Pt tolerated CPAP for 7.5 hours last night., Patient continues on Precedex infusion for assistance with ventilator weaning process. Pressure support decreased to 16. Patient vomited moderate amount of tube feeds this a.m.. Tube feeds currently on hold. Objective Vital Signs Date Time Temp Pulse Resp B/P (MAP) Pulse Ox O2 Delivery O2 Flow Rate FiO2 12/30/17 08:38 97 40 12/30/17 06:00 100 12/30/17 04:00 99.5 26 160/92 (114) Intake and Output 12/30/17 12/30/17 12/31/17 08:00 16:00 00:00 Intake Total 761 ml Output Total 2100 ml Balance -1339 ml Result Diagram: 12/29/17 0724 12/29/17 0724 Imaging Last Impressions Chest X-Ray 12/29/17599 Signed Impressions: Service Date/Time: Friday, December 29, 2017 04:38 - CONCLUSION: No significant change. Renny Smith MD Abdomen X-Ray 12/27/17 0000 Signed Impressions: Service Date/Time: Wednesday, December 27, 2017 14:24 - CONCLUSION: Contrast in the distal colon. Renny Hinojosa MD Lower Extremity Ultrasound 12/23/17 0000 Signed Impressions: Service Date/Time: Saturday, December 23, 2017 16:46 - CONCLUSION: 1. Negative for deep venous thrombosis in the lower extremities. Mannie Croft MD Last Impressions Chest X-Ray 12/28/17599 Signed Impressions: Service Date/Time: Thursday, December 28, 2017 03:51 - CONCLUSION: Modest worsening mild bibasilar consolidation and small effusions. Renny Smith MD Abdomen X-Ray 12/27/17 0000 Signed Impressions: Service Date/Time: Wednesday, December 27, 2017 14:24 - CONCLUSION: Contrast in the distal colon. Renny Hinojosa MD Lower Extremity Ultrasound 12/23/17 0000 Signed Impressions: Service Date/Time: Saturday, December 23, 2017 16:46 - CONCLUSION: 1. Negative for deep venous thrombosis in the lower extremities. Mannie Croft MD Last Impressions Chest X-Ray 12/27/17 0600 Signed Impressions: Service Date/Time: Wednesday, December 27, 2017 03:51 - CONCLUSION: 1. Cardiomegaly and findings of vascular congestion without overt failure. Bilateral effusions. There has been no significant change when compared to the prior exam. Prasad Zapata MD Lower Extremity Ultrasound 12/23/17 0000 Signed Impressions: Service Date/Time: Saturday, December 23, 2017 16:46 - CONCLUSION: 1. Negative for deep venous thrombosis in the lower extremities. Mannie Croft MD Last Impressions Chest X-Ray 12/26/17 0600 Signed Impressions: Service Date/Time: Tuesday, December 26, 2017 03:52 - CONCLUSION: 1. Cardiomegaly and findings of vascular congestion without overt failure. There has been no significant change when compared to the prior exam. Prasad Zapata MD Lower Extremity Ultrasound 12/23/17 0000 Signed Impressions: Service Date/Time: Saturday, December 23, 2017 16:46 - CONCLUSION: 1. Negative for deep venous thrombosis in the lower extremities. Mannie Croft MD Objective Remarks GENERAL: Morbidly obese 62-year-old male currently resting in bed in no acute distress, nodding to yes and no questions SKIN: Warm and dry. HEAD: Atraumatic. Normocephalic. EYES: Pupils equal and round. No scleral icterus. No injection or drainage. ENT: No nasal bleeding or discharge. Mucous membranes pink and moist. NECK: Trachea midline. No JVD. CARDIOVASCULAR: Regular rate and rhythm. S1, S2. No S4. Without murmur RESPIRATORY: Diminished breath sounds throughout. No end expiratory wheeze appreciated. GASTROINTESTINAL: Abdomen soft, non-tender, nondistended. Hepatic and splenic margins not palpable. MUSCULOSKELETAL: Extremities with chronic venous stasis/lymphedema bilateral lower extremities. Positive onychomycosis bilateral lower extremity nail beds NEUROLOGICAL: Awake and responsive. Moves all 4 extremities spontaneously. Positive gag. Positive corneal reflex. Date of Insertion: Dec 23, 2017 Line: Central Venous Catheter Side: Right Location: Femoral A/P Assessment and Plan Neuro/Psych: History of TIA 12/29 Transitioned to Precedex for ventilator weaning process Goal of RASS [address] brain if clinically indicated. Patient following commands CV: Chronic diastolic heart failure ejection fraction 55% 08/30 Hypertension/essential Dyslipidemia Atrial fibrillation currently in first degree AV block Moderate to severe pulmonary hypertension -pulmonary arterial systolic pressure 57 mmHg 08/30 EKG revealed first-degree AV block. Incomplete right bundle branch block. 2D echocardiogram 12% revealed EF 55%. LVH. PASP 57 mmHg Home medications metoprolol tartrate 75 mg twice daily and diltiazem extended release 240 mg daily held with borderline blood pressures Digoxin level 0.9. On 0.125 mg daily at [facility] and will restart Limited echocardiogram 12/24 revealed EF 55%. Resume atorvastatin 40 mg p.o. daily for dyslipidemia Currently holding torsemide 40 mg daily/home medication. Furosemide 40 mg IV to daily. Resp: Acute on chronic hypoxic respiratory failure DENIS COPD/oxygen dependent [facility] 15/700/1.2/ Ventilator bundle Albuterol/ipratropium aerosols every 4 hours with albuterol aerosols every 2 hours as needed dyspnea Add budesonide 0.5/2 1 inhalation twice daily Methylprednisolone succinate 40 mg IV every 8 hours Chest x-ray revealed signs of pulmonary edema with cardiomegaly chest x-ray in a.m 12/28-unchanged CPAP trials to be continued throughout the night if tolerated by patient, and clinically stable for planned SBT trials and possible extubation. PSV decreased to 16 Day 8- ETT GI: Elevated alkaline phosphatase Continue tube feeding with Glucerna 1. @55 cc an hour-on hold for possible extubation Lansoprazole for GI prophylaxis Docusate sodium/senna 1 tablet twice daily for bowel regimen Follow-up KUB Dulcolax suppository today. Large BM 12/28 x 3, and 12/29 : BPH Barrientos catheter indicated for accurate I's and O's in a critically ill patient receiving diuretics Endo: Diabetes mellitus Secondary hyperparathyroidism Sliding scale insulin with Novulin R with Accu-Cheks every 6 hours to maintain euglycemia/medium regimen Continue calcium acetate 667 mg by tube 3 times daily TSH 1.94 Renal: Chronic kidney disease stage IIIa Monitor urine output Accurate I's and O's Baseline creatinine between 1.6 and 1.9., Creatinine downtrending Avoid nephrotoxic medication Positive fluid balance-Lasix 40 mg 1 dose Heme: Chronic rivaroxaban use Normocytic anemia Leukopenia Resumed rivaroxaban 10 mg daily Monitor CBC daily. Follow trends Continue Ferrous sulfate twice daily ID: Was on ampicillin 500 mg 3 times daily question chronic lower extremity cellulitis Blood cultures 2, UA, sputum ordered 12/23 with results -NGTD Influenza a and B negative Urine Legionella pneumococcal antigens negative MSK: Chronic lymphedema/venous stasis PT evaluate and treat Obtain specialty bed secondary to increased BMI FEN: Replace electrolytes as clinically indicated Access -Utilize peripheral IV. Right femoral CVL day #5 placed by ED physician 12/23 Prophylaxis -GI -lansoprazole -DVT -SCD/rivaroxaban provides DVT prophylaxis Critical Care: Level 3 follow up Discussed with [employer] at bedside Physician Meg Toledo MD Dec 30, 2017 09:03
[2017-12-30] MEDS: DEXMEDETOMIDINE INJ 200 MCG in SODIUM CHLORIDE 0.9% INJ 50 ML IV PRN ×2 (09:43→17:43)
[2017-12-30] MEDS: AZITHROMYCIN INJ 500 MG in SODIUM CHLOR 0.9% 250 ML INJ 250 ML IV SCH (09:43)
[2017-12-30] MEDS: FUROSEMIDE 40 MG/4 ML VIAL IV PUSH SCH (09:44)
[2017-12-30] MEDS: LANSOPRAZOLE SOLUTAB 30 MG TAB G-TUBE SCH (09:44)
[2017-12-30] MEDS: RIVAROXABAN 10 MG TAB PO SCH (09:45)
[2017-12-30] MEDS: DIGOXIN SOLUTION 0.125 MG/2.5 ML CUP PO SCH (09:45)
[2017-12-30] MEDS: CALCIUM ACETATE 667 MG CAP PO SCH ×3 (09:46→16:55)
[2017-12-30] MEDS: SODIUM CHLORIDE 0.9% FLUSH 10 ML FLUSH IV FLUSH SCH ×2 (09:46→20:18)
[2017-12-30] MEDS: VANCOMYCIN INJ 2,000 MG in SODIUM CHLORID 0.9% 500 ML INJ 500 ML IV SCH (12:40)
[2017-12-30] MEDS ORDERED: FUROSEMIDE 40 MG/4 ML VIAL IV PUSH ONE (17:00)
[2017-12-30] MEDS: RESP: ALBUTEROL 2.5 MG/3 ML NEB (PRN) INH (20:41)
[2017-12-31] VITALS (20 sets, daily range): BP systolic 148–178; BP diastolic 77–96; PULSE 72–107; RESP 10–22; TEMP 98.1–99; O2SAT 86–100
[2017-12-31] MEDS: DEXMEDETOMIDINE INJ 200 MCG in SODIUM CHLORIDE 0.9% INJ 50 ML IV PRN ×2 (00:53→05:07)
[2017-12-31] MEDS: INSULIN NovoLIN REGULAR SUPPLEMENTAL SCALE SQ SCH ×6 (04:00→23:50)
[2017-12-31] MEDS: methylPREDNISolone SOD SUCC 40 MG/1 ML VIAL IV PUSH SCH ×3 (05:07→21:44)
[2017-12-31] MEDS: PIPERACIL-TAZO 3.375 GM PREMIX 50 ML IV SCH ×4 (05:07→23:50)
--- NOTE | 2017-12-31 05:19 | RADRPT ---
EXAM DATE/TIME: 12/31/2017 03:06 [place] COMPARISON: CHEST SINGLE AP, December 29, 2017, 4:38. INDICATIONS : Shortness of breath, possible pulmonary disease. MEDICAL HISTORY : Cirrhosis. Chronic obstructive pulmonary disease. Hypertension. A-Fib SURGICAL HISTORY : Appendectomy. ENCOUNTER: Subsequent ACUITY: 2 weeks PAIN SCORE: Non-responsive. LOCATION: Bilateral chest FINDINGS: Mild bibasilar atelectasis and small effusions, not significantly changed. No pneumothorax seen. Mild cardiomegaly unchanged. Endotracheal tube tip is approximately 3 cm above the eulalia. Nasogastric tube courses into the stoma ch. CONCLUSION: No significant change. Bibasilar atelectasis and small effusions again noted. Renny Smith MD on December 31, 2017 at 5:17 Board Certified Radiologist. This report was verified electronically.
[2017-12-31 06:45] LABS: HEMATOCRIT 29.8 % (39.0-51.0); HEMOGLOBIN 8.9 GM/DL (13.0-17.0); MEAN CELL VOLUME 84.5 FL (80.0-100.0); MEAN CORPUSCULAR HEMOGLOBIN 25.2 PG (27.0-34.0); MEAN PLATELET VOLUME 8.2 FL (7.0-11.0); PLATELET COUNT 210 TH/MM3 (150-450); RED BLOOD COUNT 3.53 MIL/MM3 (4.50-5.90); RED CELL DISTRIBUTION WIDTH 18.9 % (11.6-17.2); WHITE BLOOD COUNT 8.2 TH/MM3 (4.0-11.0)
[2017-12-31 06:58] LABS: MEAN CORPUSCULAR HGB CONC 29.8 % (32.0-36.0)
[2017-12-31 07:17] LABS: BICARBONATE 31.2 MEQ/L (21.0-32.0); CREATININE 1.47 MG/DL (0.60-1.30); MAGNESIUM 3.3 MG/DL (1.5-2.5)
[2017-12-31 07:18] LABS: PHOSPHORUS 5.7 MG/DL (2.5-4.9)
[2017-12-31] MEDS: CHLORHEXIDINE 0.12% (ORAL KIT) 15 ML CUP MT SCH ×2 (08:00→19:15)
[2017-12-31] MEDS: RESP: BUDESONIDE 0.5 MG/2 ML NEB NEB SCH ×2 (08:03→19:56)
[2017-12-31] MEDS: ARTIFICIAL TEARS OPTH SOLN 15 ML BTL EACH EYE SCH ×3 (09:00→17:14)
[2017-12-31] MEDS: CALCIUM ACETATE 667 MG CAP PO SCH ×3 (09:00→17:14)
[2017-12-31] MEDS: LANSOPRAZOLE SOLUTAB 30 MG TAB G-TUBE SCH (09:00)
[2017-12-31] MEDS: DOCUSATE SODIUM 50 MG/SENNA 8.6 MG TAB PO SCH ×2 (09:00→19:16)
[2017-12-31] MEDS: FERROUS SULFATE 325 MG (65 MG ELEMENTAL IRON) TAB PO SCH ×2 (09:01→21:44)
[2017-12-31] MEDS: DIGOXIN SOLUTION 0.125 MG/2.5 ML CUP PO SCH (09:01)
[2017-12-31] MEDS: RIVAROXABAN 10 MG TAB PO SCH (09:01)
[2017-12-31] MEDS: FUROSEMIDE 40 MG/4 ML VIAL IV PUSH SCH (09:02)
[2017-12-31] MEDS: SODIUM CHLORIDE 0.9% FLUSH 10 ML FLUSH IV FLUSH SCH ×2 (09:02→21:44)
--- NOTE | 2017-12-31 09:30 | HHI.CCPN ---
Subjective Remarks/Hospital Course This is a 62-year-old male. Date of admission 12/23/2017. Past medical history includes atrial fibrillation on chronic rivaroxaban use, chronic diastolic heart failure ejection fraction 55%, COPD, obstructive sleep apnea on CPAP nocturnally, history of 3 times daily, chronic lipidemia/venous stasis, hypertension, chronic kidney disease stage IIIa, diabetes mellitus and chronic low back pain. Patient is a resident of [facility] who presented here to [facility] with acute onset of shortness of breath this a.m. at his nursing facility. He is brought to the emergency department for evaluation. According to Dr. Jameson, patient was tachypneic and becoming more uncomfortable and experienced hypoxic hypercapnic respiratory failure in the ED. Patient was intubated using glide scope. Furosemide 40 mg IV. Patient was noted to be hyperkalemic with potassium 5.7. D50 50 mL IV given. Novolin R 8 units IV given along with 1 ampule of D50. Calcium gluconate 1 g IV given. Repeat potassium pending. Patient became hypotensive propofol drip currently on midazolam and fentanyl drips for sedation while intubated. Initial blood gas reveals significant respiratory acidosis. We are asked to admit the patient. 12/24: Currently biting on endotracheal tube. Will increase sedation. FiO2 50% . Continue diuresis. Afebrile. Arousable and does follow commands on the ventilator. No bowel movement. 12/25: Afebrile. Resting in bed in no acute distress. FiO2 down to 50%. PEEP today. Tolerating diet. Subjective 12/26: FiO2 stable at 50%. PEEP is currently at 8. Tolerating diet. No bowel movement today. Extremely agitated off sedative medications. 12/27: Patient continues on sedation currently fentanyl 150 mcgs/hr Versed 7 mg/ hour, currently tolerating CPAP trials. No bowel movement, reported minimal tube feed residual. 16: Failed CPAP trials today did not last longer than 5 minutes with repeated efforts. Patient awake not following commands. Comes combative when totally off sedation plan to transition to Precedex for ventilator weaning 12/29: Patient continues on CPAP trials, all sedation is off. Plan for SBT trials . Patient currently having high pressure requirements pressure support of 18 continuing to wean down. 12/30: Pt tolerated CPAP for 7.5 hours last night., Patient continues on Precedex infusion for assistance with ventilator weaning process. Pressure support decreased to 16. Patient vomited moderate amount of tube feeds this a.m.. Tube feeds currently on hold. Objective Vital Signs Date Time Temp Pulse Resp B/P (MAP) Pulse Ox O2 Delivery O2 Flow Rate FiO2 12/31/17 08:21 99 40 12/31/17 06:00 72 12/31/17 04:00 98.1 16 148/77 (100) Intake and Output 12/31/17 12/31/17 01/01/18 08:00 16:00 00:00 Intake Total 154 ml 179 ml Output Total 3900 ml Balance -3746 ml 179 ml Result Diagram: 12/31/17 0510 12/31/17 0510 Imaging Last Impressions Chest X-Ray 12/29/17599 Signed Impressions: Service Date/Time: Friday, December 29, 2017 04:38 - CONCLUSION: No significant change. Renny Smith MD Abdomen X-Ray 12/27/17 0000 Signed Impressions: Service Date/Time: Wednesday, December 27, 2017 14:24 - CONCLUSION: Contrast in the distal colon. Renny Hinojosa MD Lower Extremity Ultrasound 12/23/17 0000 Signed Impressions: Service Date/Time: Saturday, December 23, 2017 16:46 - CONCLUSION: 1. Negative for deep venous thrombosis in the lower extremities. Mannie Croft MD Last Impressions Chest X-Ray 12/28/17599 Signed Impressions: Service Date/Time: Thursday, December 28, 2017 03:51 - CONCLUSION: Modest worsening mild bibasilar consolidation and small effusions. Renny Smith MD Abdomen X-Ray 12/27/17 0000 Signed Impressions: Service Date/Time: Wednesday, December 27, 2017 14:24 - CONCLUSION: Contrast in the distal colon. Renny Hinojosa MD Lower Extremity Ultrasound 12/23/17 0000 Signed Impressions: Service Date/Time: Saturday, December 23, 2017 16:46 - CONCLUSION: 1. Negative for deep venous thrombosis in the lower extremities. Mannie Croft MD Last Impressions Chest X-Ray 12/27/17 0600 Signed Impressions: Service Date/Time: Wednesday, December 27, 2017 03:51 - CONCLUSION: 1. Cardiomegaly and findings of vascular congestion without overt failure. Bilateral effusions. There has been no significant change when compared to the prior exam. Prasad Zapata MD Lower Extremity Ultrasound 12/23/17 0000 Signed Impressions: Service Date/Time: Saturday, December 23, 2017 16:46 - CONCLUSION: 1. Negative for deep venous thrombosis in the lower extremities. Mannie Croft MD Last Impressions Chest X-Ray 12/26/17 0600 Signed Impressions: Service Date/Time: Tuesday, December 26, 2017 03:52 - CONCLUSION: 1. Cardiomegaly and findings of vascular congestion without overt failure. There has been no significant change when compared to the prior exam. Prasad Zapata MD Lower Extremity Ultrasound 12/23/17 0000 Signed Impressions: Service Date/Time: Saturday, December 23, 2017 16:46 - CONCLUSION: 1. Negative for deep venous thrombosis in the lower extremities. Mannie Croft MD Objective Remarks GENERAL: Morbidly obese 62-year-old male currently resting in bed in no acute distress, nodding to yes and no questions SKIN: Warm and dry. HEAD: Atraumatic. Normocephalic. EYES: Pupils equal and round. No scleral icterus. No injection or drainage. ENT: No nasal bleeding or discharge. Mucous membranes pink and moist. NECK: Trachea midline. No JVD. CARDIOVASCULAR: Regular rate and rhythm. S1, S2. No S4. Without murmur RESPIRATORY: Diminished breath sounds throughout. No end expiratory wheeze appreciated. GASTROINTESTINAL: Abdomen soft, non-tender, nondistended. Hepatic and splenic margins not palpable. MUSCULOSKELETAL: Extremities with chronic venous stasis/lymphedema bilateral lower extremities. Positive onychomycosis bilateral lower extremity nail beds NEUROLOGICAL: Awake and responsive. Moves all 4 extremities spontaneously. Positive gag. Positive corneal reflex. Date of Insertion: Dec 23, 2017 Line: Central Venous Catheter Side: Right Location: Femoral A/P Assessment and Plan Neuro/Psych: History of TIA 12/29 Transitioned to Precedex for ventilator weaning process Goal of RASS [address] brain if clinically indicated. Patient following commands CV: Chronic diastolic heart failure ejection fraction 55% 08/30 Hypertension/essential Dyslipidemia Atrial fibrillation currently in first degree AV block Moderate to severe pulmonary hypertension -pulmonary arterial systolic pressure 57 mmHg 08/30 EKG revealed first-degree AV block. Incomplete right bundle branch block. 2D echocardiogram 12% revealed EF 55%. LVH. PASP 57 mmHg Home medications metoprolol tartrate 75 mg twice daily and diltiazem extended release 240 mg daily held with borderline blood pressures Digoxin level 0.9. On 0.125 mg daily at [facility] and will restart Limited echocardiogram 12/24 revealed EF 55%. Resume atorvastatin 40 mg p.o. daily for dyslipidemia Currently holding torsemide 40 mg daily/home medication. Furosemide 40 mg IV to daily. Resp: Acute on chronic hypoxic respiratory failure DENIS COPD/oxygen dependent PRVC 15/1./ Ventilator bundle Albuterol/ipratropium aerosols every 4 hours with albuterol aerosols every 2 hours as needed dyspnea Add budesonide 0.5/2 1 inhalation twice daily Methylprednisolone succinate 40 mg IV every 8 hours Chest x-ray revealed signs of pulmonary edema with cardiomegaly chest x-ray in a.m 12/28-unchanged CPAP trials to be continued throughout the night if tolerated by patient, and clinically stable for planned SBT trials and possible extubation. PSV decreased to Day 8- ETT GI: Elevated alkaline phosphatase Continue tube feeding with Glucerna 1. @55 cc an hour-on hold for possible extubation Lansoprazole for GI prophylaxis Docusate sodium/senna 1 tablet twice daily for bowel regimen Follow-up KUB Dulcolax suppository today. Large BM 12/28 x 3, and 12/29 : BPH Barrientos catheter indicated for accurate I's and O's in a critically ill patient receiving diuretics Endo: Diabetes mellitus Secondary hyperparathyroidism Sliding scale insulin with Novulin R with Accu-Cheks every 6 hours to maintain euglycemia/medium regimen Continue calcium acetate 667 mg by tube 3 times daily TSH 1.94 Renal: Chronic kidney disease stage IIIa Monitor urine output Accurate I's and O's Baseline creatinine between 1.6 and 1.9., Creatinine downtrending Avoid nephrotoxic medication Positive fluid balance-Lasix 40 mg 1 dose Heme: Chronic rivaroxaban use Normocytic anemia Leukopenia Resumed rivaroxaban 10 mg daily Monitor CBC daily. Follow trends Continue Ferrous sulfate twice daily ID: Was on ampicillin 500 mg 3 times daily question chronic lower extremity cellulitis Blood cultures 2, UA, sputum ordered 12/23 with results -NGTD Influenza a and B negative Urine Legionella pneumococcal antigens negative MSK: Chronic lymphedema/venous stasis PT evaluate and treat Obtain specialty bed secondary to increased BMI FEN: Replace electrolytes as clinically indicated Access -Utilize peripheral IV. Right femoral CVL day #5 placed by ED physician 12/23 Prophylaxis -GI -lansoprazole -DVT -SCD/rivaroxaban provides DVT prophylaxis Critical Care: Level 3 follow up Discussed with BUGGY MAN at bedside Meg Youssef MD Dec 31, 2017 09:30
--- NOTE | 2017-12-31 10:50 | HHI.CCPN ---
Subjective Remarks/Hospital Course This is a 62-year-old male. Date of admission 12/23/2017. Past medical history includes atrial fibrillation on chronic rivaroxaban use, chronic diastolic heart failure ejection fraction 55%, COPD, obstructive sleep apnea on CPAP nocturnally, history of 3 times daily, chronic lipidemia/venous stasis, hypertension, chronic kidney disease stage IIIa, diabetes mellitus and chronic low back pain. Patient is a resident of [facility] who presented here to [facility] with acute onset of shortness of breath this a.m. at his nursing facility. He is brought to the emergency department for evaluation. According to Dr. Jameson, patient was tachypneic and becoming more uncomfortable and experienced hypoxic hypercapnic respiratory failure in the ED. Patient was intubated using glide scope. Furosemide 40 mg IV. Patient was noted to be hyperkalemic with potassium 5.7. D50 50 mL IV given. Novolin R 8 units IV given along with 1 ampule of D50. Calcium gluconate 1 g IV given. Repeat potassium pending. Patient became hypotensive propofol drip currently on midazolam and fentanyl drips for sedation while intubated. Initial blood gas reveals significant respiratory acidosis. We are asked to admit the patient. 12/24: Currently biting on endotracheal tube. Will increase sedation. FiO2 50% . Continue diuresis. Afebrile. Arousable and does follow commands on the ventilator. No bowel movement. 12/25: Afebrile. Resting in bed in no acute distress. FiO2 down to 50%. PEEP today. Tolerating diet. Subjective 12/26: FiO2 stable at 50%. PEEP is currently at 8. Tolerating diet. No bowel movement today. Extremely agitated off sedative medications. 12/27: Patient continues on sedation currently fentanyl 150 mcgs/hr Versed 7 mg/ hour, currently tolerating CPAP trials. No bowel movement, reported minimal tube feed residual. 16: Failed CPAP trials today did not last longer than 5 minutes with repeated efforts. Patient awake not following commands. Comes combative when totally off sedation plan to transition to Precedex for ventilator weaning 12/29: Patient continues on CPAP trials, all sedation is off. Plan for SBT trials . Patient currently having high pressure requirements pressure support of 18 continuing to wean down. 12/30: Pt tolerated CPAP for 7.5 hours last night., Patient continues on Precedex infusion for assistance with ventilator weaning process. Pressure support decreased to 16. Patient vomited moderate amount of tube feeds this a.m.. Tube feeds currently on hold. 12/31: Afebrile . Patient continues on low-dose Precedex 0.2 mcgs/hr. patient tolerated CPAP trials 10/5 for approximately 24 hours. SBT performed this a.m. , successful parameters plan for extubation. Objective Vital Signs Date Time Temp Pulse Resp B/P (MAP) Pulse Ox O2 Delivery O2 Flow Rate FiO2 12/31/17 10:15 96 Nasal Cannula 3.00 12/31/17 10:00 80 12/31/17 08:21 40 12/31/17 08:00 98.4 13 158/89 (112) Intake and Output 12/31/17 12/31/17 01/01/18 08:00 16:00 00:00 Intake Total 154 ml 179 ml Output Total 3900 ml Balance -3746 ml 179 ml Result Diagram: 12/31/17 0510 12/31/17 0510 Imaging Last Impressions Chest X-Ray 12/31/17 06 Signed Impressions: Service Date/Time: December 03:06 - CONCLUSION: No significant change. Bibasilar atelectasis and small effusions again noted. Renny Smith MD Abdomen X-Ray 12/27/17 0000 Signed Impressions: Service Date/Time: Wednesday, December 27, 2017 14:24 - CONCLUSION: Contrast in the distal colon. Renny Hinojosa MD Lower Extremity Ultrasound 12/23/17 0000 Signed Impressions: Service Date/Time: Saturday, December 23, 2017 16:46 - CONCLUSION: 1. Negative for deep venous thrombosis in the lower extremities. Mannie Croft MD Last Impressions Chest X-Ray 12/29/17 0600 Signed Impressions: Service Date/Time: Friday, December 29, 2017 04:38 - CONCLUSION: No significant change. Renny Smith MD Abdomen X-Ray 12/27/17 0000 Signed Impressions: Service Date/Time: Wednesday, December 27, 2017 14:24 - CONCLUSION: Contrast in the distal colon. Renny Hinojosa MD Lower Extremity Ultrasound 12/23/17 0000 Signed Impressions: Service Date/Time: Saturday, December 23, 2017 16:46 - CONCLUSION: 1. Negative for deep venous thrombosis in the lower extremities. Mannie Croft MD Last Impressions Chest X-Ray 12/28/17 0600 Signed Impressions: Service Date/Time: Thursday, December 28, 2017 03:51 - CONCLUSION: Modest worsening mild bibasilar consolidation and small effusions. Renny Smith MD Abdomen X-Ray 12/27/17 0000 Signed Impressions: Service Date/Time: Wednesday, December 27, 2017 14:24 - CONCLUSION: Contrast in the distal colon. Renny Hinojosa MD Lower Extremity Ultrasound 12/23/17 0000 Signed Impressions: Service Date/Time: Saturday, December 23, 2017 16:46 - CONCLUSION: 1. Negative for deep venous thrombosis in the lower extremities. Mannie Croft MD Last Impressions Chest X-Ray 12/27/17 0600 Signed Impressions: Service Date/Time: Wednesday, December 27, 2017 03:51 - CONCLUSION: 1. Cardiomegaly and findings of vascular congestion without overt failure. Bilateral effusions. There has been no significant change when compared to the prior exam. Prasad Zapata MD Lower Extremity Ultrasound 12/23/17 0000 Signed Impressions: Service Date/Time: Saturday, December 23, 2017 16:46 - CONCLUSION: 1. Negative for deep venous thrombosis in the lower extremities. Mannie Croft MD Last Impressions Chest X-Ray 12/26/17 0600 Signed Impressions: Service Date/Time: Tuesday, December 26, 2017 03:52 - CONCLUSION: 1. Cardiomegaly and findings of vascular congestion without overt failure. There has been no significant change when compared to the prior exam. Prasad Zapata MD Lower Extremity Ultrasound 12/23/17 0000 Signed Impressions: Service Date/Time: Saturday, December 23, 2017 16:46 - CONCLUSION: 1. Negative for deep venous thrombosis in the lower extremities. Mannie Croft MD Objective Remarks GENERAL: Morbidly obese 62-year-old male currently resting in bed in no acute distress, nodding to yes and no questions SKIN: Warm and dry. HEAD: Atraumatic. Normocephalic. EYES: Pupils equal and round. No scleral icterus. No injection or drainage. ENT: No nasal bleeding or discharge. Mucous membranes pink and moist. NECK: Trachea midline. No JVD. CARDIOVASCULAR: Regular rate and rhythm. S1, S2. No S4. Without murmur RESPIRATORY: Diminished breath sounds throughout. No end expiratory wheeze appreciated. GASTROINTESTINAL: Abdomen soft, non-tender, nondistended. Hepatic and splenic margins not palpable. MUSCULOSKELETAL: Extremities with chronic venous stasis/lymphedema bilateral lower extremities. Positive onychomycosis bilateral lower extremity nail beds NEUROLOGICAL: Awake and responsive. Moves all 4 extremities spontaneously. Positive gag. Positive corneal reflex. Date of Insertion: Dec 23, 2017 Line: Central Venous Catheter Side: Right Location: Femoral A/P Assessment and Plan Neuro/Psych: History of TIA Precedex 0.2 mcg/hr for ventilator weaning process Goal of RASS 0 Daily sedation vacation Patient alert and following commands CT brain if clinically indicated. CV: Chronic diastolic heart failure ejection fraction 55% 08/30 Hypertension/essential Dyslipidemia Atrial fibrillation currently in first degree AV block Moderate to severe pulmonary hypertension -pulmonary arterial systolic pressure 57 mmHg 08/30 EKG revealed first-degree AV block. Incomplete right bundle branch block. 2D echocardiogram 12% revealed EF 55%. LVH. PASP 57 mmHg Home medications metoprolol tartrate 75 mg twice daily and diltiazem extended release 240 mg daily held with borderline blood pressures Digoxin level 0.9. On 0.125 mg daily at [facility]-continued Limited echocardiogram 12/24 revealed EF 55%. Resume atorvastatin 40 mg p.o. daily for dyslipidemia Currently holding torsemide 40 mg daily/home medication. Furosemide 40 mg IV to daily. Resp: Acute on chronic hypoxic respiratory failure DENIS COPD/oxygen dependent PRVC 15/700/1.2/8/50 Ventilator bundle Albuterol/ipratropium aerosols every 4 hours with albuterol aerosols every 2 hours as needed dyspnea Add budesonide 0.5/2 1 inhalation twice daily Methylprednisolone succinate 40 mg IV every 8 hours Chest x-ray revealed signs of pulmonary edema with cardiomegaly chest x-ray in a.m 12/28-unchanged CPAP trials to be continued throughout the night if tolerated by patient, and clinically stable for planned SBT trials and possible extubation. PSV decreased to 16 Day 9- ETT 12/31 SBT NIF -35, RSBI 58, FVC 1 L, cuff leak- Plan for extubation with BIPAP available, PS currently 10 GI: Elevated alkaline phosphatase Tube feeding -on hold for possible extubation Lansoprazole for GI prophylaxis Docusate sodium/senna 1 tablet twice daily for bowel regimen 12/27 KUB-contrast in distal colon : BPH Barrientos catheter indicated for accurate I's and O's in a critically ill patient receiving diuretics Endo: Diabetes mellitus Secondary hyperparathyroidism Sliding scale insulin with Novulin R with Accu-Cheks every 6 hours to maintain euglycemia/medium regimen Continue calcium acetate 667 mg by tube 3 times daily TSH 1.94 Renal: Chronic kidney disease stage IIIa Monitor urine output Accurate I's and O's Baseline creatinine between 1.6 and 1.9., Creatinine downtrending Avoid nephrotoxic medication Continue Lasix-positive fluid balance Heme: Chronic rivaroxaban use Normocytic anemia Leukopenia Resumed rivaroxaban 10 mg daily Monitor CBC daily. Follow trends Continue Ferrous sulfate twice daily ID: Was on ampicillin 500 mg 3 times daily question chronic lower extremity cellulitis Blood cultures 2, UA, sputum ordered 12/23 with results -NGTD Influenza a and B negative Urine Legionella pneumococcal antigens negative MSK: Chronic lymphedema/venous stasis PT evaluate and treat Specialty bed FEN: Replace electrolytes as clinically indicated Access -Utilize peripheral IV. Right femoral CVL day #5 placed by ED physician 12/23 Prophylaxis -GI -lansoprazole -DVT -SCD/rivaroxaban provides DVT prophylaxis Critical Care: Level 3 follow up Discussed with LADLE BUILDER at bedside(Za) Physician Meg Toledo MD Dec 31, 2017 10:50
[2018-01-01] VITALS (20 sets, daily range): BP systolic 146–173; BP diastolic 69–85; PULSE 80–97; RESP 16–26; TEMP 97.9–99.1; O2SAT 97–100
[2018-01-01] MEDS: hydrALAZINE HCL 20 MG/ML VIAL IV PRN (00:39)
[2018-01-01] MEDS: INSULIN NovoLIN REGULAR SUPPLEMENTAL SCALE SQ SCH ×6 (03:36→23:16)
[2018-01-01] MEDS: CHLORHEXIDINE GLUCONATE 2 % 1 PACK (2 CLOTHS) TOP SCH ×2 (03:37→21:04)
[2018-01-01 05:20] LABS: HEMATOCRIT 30.8 % (39.0-51.0); HEMOGLOBIN 9.3 GM/DL (13.0-17.0); MEAN CELL VOLUME 83.7 FL (80.0-100.0); MEAN CORPUSCULAR HEMOGLOBIN 25.1 PG (27.0-34.0); MEAN PLATELET VOLUME 8.4 FL (7.0-11.0); PLATELET COUNT 236 TH/MM3 (150-450); RED BLOOD COUNT 3.68 MIL/MM3 (4.50-5.90); RED CELL DISTRIBUTION WIDTH 18.5 % (11.6-17.2); WHITE BLOOD COUNT 9.3 TH/MM3 (4.0-11.0)
[2018-01-01] MEDS: methylPREDNISolone SOD SUCC 40 MG/1 ML VIAL IV PUSH SCH ×3 (05:21→19:30)
[2018-01-01] MEDS: PIPERACIL-TAZO 3.375 GM PREMIX 50 ML IV SCH ×4 (05:21→23:16)
[2018-01-01 05:40] LABS: BICARBONATE 31.6 MEQ/L (21.0-32.0); CREATININE 1.38 MG/DL (0.60-1.30); MAGNESIUM 2.7 MG/DL (1.5-2.5)
[2018-01-01 05:41] LABS: PHOSPHORUS 4.8 MG/DL (2.5-4.9)
[2018-01-01] MEDS: DOCUSATE SODIUM 50 MG/SENNA 8.6 MG TAB PO SCH ×2 (07:10→19:25)
[2018-01-01] MEDS: RESP: BUDESONIDE 0.5 MG/2 ML NEB NEB SCH ×2 (07:31→20:00)
[2018-01-01] MEDS: FERROUS SULFATE 325 MG (65 MG ELEMENTAL IRON) TAB PO SCH ×2 (07:58→19:25)
[2018-01-01] MEDS: CALCIUM ACETATE 667 MG CAP PO SCH ×3 (07:58→18:00)
[2018-01-01] MEDS: ARTIFICIAL TEARS OPTH SOLN 15 ML BTL EACH EYE SCH ×3 (07:58→13:50)
[2018-01-01] MEDS: CHLORHEXIDINE 0.12% (ORAL KIT) 15 ML CUP MT SCH ×2 (07:58→19:25)
[2018-01-01] MEDS: LANSOPRAZOLE SOLUTAB 30 MG TAB G-TUBE SCH (07:58)
[2018-01-01] MEDS: FUROSEMIDE 40 MG/4 ML VIAL IV PUSH SCH (08:01)
[2018-01-01] MEDS: DIGOXIN SOLUTION 0.125 MG/2.5 ML CUP PO SCH (08:02)
[2018-01-01] MEDS: RIVAROXABAN 10 MG TAB PO SCH (08:02)
[2018-01-01] MEDS: SODIUM CHLORIDE 0.9% FLUSH 10 ML FLUSH IV FLUSH SCH ×2 (08:02→19:29)
[2018-01-01] MEDS ORDERED: RESP: ALBUTEROL 2.5 MG/IPRATROPIUM 0.5 MG NEB (PRN) NEB (09:00)
--- NOTE | 2018-01-01 09:06 | HHI.CCPN ---
Subjective Remarks/Hospital Course This is a 62-year-old male. Date of admission 12/23/2017. Past medical history includes atrial fibrillation on chronic rivaroxaban use, chronic diastolic heart failure ejection fraction 55%, COPD, obstructive sleep apnea on CPAP nocturnally, history of 3 times daily, chronic lipidemia/venous stasis, hypertension, chronic kidney disease stage IIIa, diabetes mellitus and chronic low back pain. Patient is a resident of [facility] who presented here to [facility] with acute onset of shortness of breath this a.m. at his nursing facility. He is brought to the emergency department for evaluation. According to Dr. Jameson, patient was tachypneic and becoming more uncomfortable and experienced hypoxic hypercapnic respiratory failure in the ED. Patient was intubated using glide scope. Furosemide 40 mg IV. Patient was noted to be hyperkalemic with potassium 5.7. D50 50 mL IV given. Novolin R 8 units IV given along with 1 ampule of D50. Calcium gluconate 1 g IV given. Repeat potassium pending. Patient became hypotensive propofol drip currently on midazolam and fentanyl drips for sedation while intubated. Initial blood gas reveals significant respiratory acidosis. We are asked to admit the patient. 12/24: Currently biting on endotracheal tube. Will increase sedation. FiO2 50% . Continue diuresis. Afebrile. Arousable and does follow commands on the ventilator. No bowel movement. 12/25: Afebrile. Resting in bed in no acute distress. FiO2 down to 50%. PEEP today. Tolerating diet. Subjective 12/26: FiO2 stable at 50%. PEEP is currently at 8. Tolerating diet. No bowel movement today. Extremely agitated off sedative medications. 12/27: Patient continues on sedation currently fentanyl 150 mcgs/hr Versed 7 mg/ hour, currently tolerating CPAP trials. No bowel movement, reported minimal tube feed residual. 16: Failed CPAP trials today did not last longer than 5 minutes with repeated efforts. Patient awake not following commands. Comes combative when totally off sedation plan to transition to Precedex for ventilator weaning 12/29: Patient continues on CPAP trials, all sedation is off. Plan for SBT trials . Patient currently having high pressure requirements pressure support of 18 continuing to wean down. 12/30: Pt tolerated CPAP for 7.5 hours last night., Patient continues on Precedex infusion for assistance with ventilator weaning process. Pressure support decreased to 16. Patient vomited moderate amount of tube feeds this a.m.. Tube feeds currently on hold. 12/31: Afebrile . Patient continues on low-dose Precedex 0.2 mcgs/hr. patient tolerated CPAP trials 10/5 for approximately 24 hours. SBT performed this a.m. , successful parameters plan for extubation. 01/01 Patient s/p extubation on 3L oxygen. Afebrile. Awake and alert. Objective Vital Signs Date Time Temp Pulse Resp B/P (MAP) Pulse Ox O2 Delivery O2 Flow Rate FiO2 01/01/18 07:11 97 Nasal Cannula 3.00 01/01/18 06:00 80 01/01/18 04:00 97.9 16 154/75 (101) 01/01/18 03:49 30 Intake and Output 01/01/18 01/01/18 01/02/18 08:00 16:00 00:00 Intake Total 600 ml Output Total 2350 ml Balance -1750 ml Result Diagram: 01/01/18 0424 01/01/18 0424 Other Results Laboratory Tests Test 01/01/18 04:24 White Blood Count 9.3 TH/MM3 Red Blood Count 3.68 MIL/MM3 Hemoglobin 9.3 GM/DL Hematocrit 30.8 % Mean Corpuscular Volume 83.7 FL Mean Corpuscular Hemoglobin 25.1 PG Mean Corpuscular Hemoglobin Concent 30.0 % Red Cell Distribution Width 18.5 % Platelet Count 236 TH/MM3 Mean Platelet Volume 8.4 FL Blood Urea Nitrogen 62 MG/DL Creatinine 1.38 MG/DL Random Glucose 114 MG/DL Calcium Level 9.0 MG/DL Phosphorus Level 4.8 MG/DL Magnesium Level 2.7 MG/DL Sodium Level 144 MEQ/L Potassium Level 4.5 MEQ/L Chloride Level 108 MEQ/L Carbon Dioxide Level 31.6 MEQ/L Anion Gap 4 MEQ/L Estimat Glomerular Filtration Rate 52 ML/MIN Imaging Last Impressions Chest X-Ray 12/31/17 0600 Signed Impressions: Service Date/Time: December 03:06 - CONCLUSION: No significant change. Bibasilar atelectasis and small effusions again noted. Renny Smith MD Abdomen X-Ray 12/27/17 0000 Signed Impressions: Service Date/Time: Wednesday, December 27, 2017 14:24 - CONCLUSION: Contrast in the distal colon. Renny Hinojosa MD Lower Extremity Ultrasound 12/23/17 0000 Signed Impressions: Service Date/Time: Saturday, December 23, 2017 16:46 - CONCLUSION: 1. Negative for deep venous thrombosis in the lower extremities. Mannie Croft MD Objective Remarks GENERAL: Morbidly obese 62-year-old male currently resting in bed in no acute distress, SKIN: Warm and dry. HEAD: Atraumatic. Normocephalic. EYES: Pupils equal and round. No scleral icterus. No injection or drainage. ENT: No nasal bleeding or discharge. Mucous membranes pink and moist. NECK: Trachea midline. No JVD. CARDIOVASCULAR: Regular rate and rhythm. S1, S2. No S4. Without murmur RESPIRATORY: B/L equal air entry GASTROINTESTINAL: Abdomen soft, non-tender, nondistended. Hepatic and splenic margins not palpable. MUSCULOSKELETAL: Extremities with chronic venous stasis/lymphedema bilateral lower extremities. Positive onychomycosis bilateral lower extremity nail beds NEUROLOGICAL: Awake and alert Date of Insertion: Dec 23, 2017 Line: Central Venous Catheter Side: Right Location: Femoral A/P Assessment and Plan Neuro/Psych: History of TIA Awake and alert CT brain if clinically indicated. CV: Chronic diastolic heart failure ejection fraction 55% 08/30 Hypertension/essential Dyslipidemia Atrial fibrillation Moderate to severe pulmonary hypertension -pulmonary arterial systolic pressure 57 mmHg 08/[address] on Cardizem 60mg Q6 monitor HR and BP keep MAP>65mmHg 2D echocardiogram revealed EF 55%. LVH. PASP 57 mmHg Home medications metoprolol tartrate 75 mg twice daily and diltiazem extended release 240 mg daily held with borderline blood pressures Digoxin level 0.9. On 0.125 mg daily at [facility]-continued Limited echocardiogram 12/24 revealed EF 55%. Atorvastatin 40 mg p.o. daily for dyslipidemia Furosemide 40 mg IV to daily. Resp: Acute on chronic hypoxic respiratory failure DENIS COPD/oxygen dependent Continue with oxygen keep sats >92% Albuterol/ipratropium aerosols every 4 hours with albuterol aerosols every 2 hours as needed dyspnea Incentive spirometry Budesonide 0.5/2 1 inhalation twice daily Methylprednisolone succinate 40 mg IV every 8 hours NIPPV PRN for resp distress GI: Elevated alkaline phosphatase On PO heart healthy diet Lansoprazole for GI prophylaxis Docusate sodium/senna 1 tablet twice daily for bowel regimen : BPH Chronic kidney disease stage IIIa Monitor renal function, I/O's, avoid nephrotoxins Renal function is improving with Cr: 1.38 from 1.47 On Lasix 40mg IV daily Endo: Diabetes mellitus Secondary hyperparathyroidism Sliding scale insulin with Novulin R with Accu-Cheks every 6 hours to maintain euglycemia/medium regimen Continue calcium acetate 667 mg by tube 3 times daily TSH 1.94 Heme: Chronic rivaroxaban use Normocytic anemia Leukopenia rivaroxaban 10 mg daily Monitor CBC daily. Follow trends Continue Ferrous sulfate twice daily ID: Was on ampicillin 500 mg 3 times daily ? chronic lower extremity cellulitis Continue Zosynn monitor for signs of infections ( Fever, WBC) Blood cultures 2, UA, sputum ordered 12/23 with results -NGTD Influenza a and B negative Urine Legionella pneumococcal antigens negative MSK: Chronic lymphedema/venous stasis PT evaluate and treat Specialty bed Access -Utilize peripheral IV. Prophylaxis -GI -lansoprazole -DVT -SCD/rivaroxaban provides DVT prophylaxis Critical Care: Level 2 follow up Stephanie Puckett MD Jan 01, 2018 09:06
[2018-01-01] MEDS: RESP: ALBUTEROL 2.5 MG/IPRATROPIUM 0.5 MG NEB (SCH) NEB ×3 (13:02→20:09)
[2018-01-01] MEDS: DILTIAZEM HCL 60 MG TAB PO SCH ×2 (15:08→19:25)
[2018-01-02] VITALS (19 sets, daily range): BP systolic 131–170; BP diastolic 71–102; PULSE 82–96; RESP 13–19; TEMP 97.9–98.9; O2SAT 94–100
[2018-01-02] MEDS: RESP: ALBUTEROL 2.5 MG/IPRATROPIUM 0.5 MG NEB (SCH) NEB ×6 (00:09→20:50)
[2018-01-02] MEDS: INSULIN NovoLIN REGULAR SUPPLEMENTAL SCALE SQ SCH ×5 (03:47→20:00)
[2018-01-02] MEDS: DILTIAZEM HCL 60 MG TAB PO SCH ×4 (03:47→21:15)
[2018-01-02] MEDS: hydrALAZINE HCL 20 MG/ML VIAL IV PRN ×2 (04:27→11:01)
[2018-01-02] MEDS: methylPREDNISolone SOD SUCC 40 MG/1 ML VIAL IV PUSH SCH ×2 (05:31→19:19)
[2018-01-02] MEDS: PIPERACIL-TAZO 3.375 GM PREMIX 50 ML IV SCH (05:31)
[2018-01-02 07:22] LABS: HEMATOCRIT 30.6 % (39.0-51.0); HEMOGLOBIN 9.3 GM/DL (13.0-17.0); LYMPH % 5.3 % (9.0-44.0); LYMPHOCYTE # 0.4 TH/MM3 (1.0-4.8); MEAN CELL VOLUME 81.6 FL (80.0-100.0); MEAN CORPUSCULAR HEMOGLOBIN 24.9 PG (27.0-34.0); MEAN CORPUSCULAR HGB CONC 30.5 % (32.0-36.0); MEAN PLATELET VOLUME 8.3 FL (7.0-11.0); MONO % 7.1 % (0.0-8.0); MONOCYTE # 0.5 TH/MM3 (0-0.9); NEUT % 87.6 % (16.0-70.0); PLATELET COUNT 215 TH/MM3 (150-450); RED BLOOD COUNT 3.74 MIL/MM3 (4.50-5.90); RED CELL DISTRIBUTION WIDTH 18.2 % (11.6-17.2); WHITE BLOOD COUNT 6.9 TH/MM3 (4.0-11.0)
[2018-01-02 07:54] LABS: BICARBONATE 29.6 MEQ/L (21.0-32.0); CREATININE 1.16 MG/DL (0.60-1.30); MAGNESIUM 2.4 MG/DL (1.5-2.5); PHOSPHORUS 4.1 MG/DL (2.5-4.9)
[2018-01-02] MEDS: CHLORHEXIDINE 0.12% (ORAL KIT) 15 ML CUP MT SCH ×2 (08:00→20:00)
[2018-01-02] MEDS: RESP: BUDESONIDE 0.5 MG/2 ML NEB NEB SCH ×2 (08:00→20:50)
[2018-01-02] MEDS: FUROSEMIDE 40 MG/4 ML VIAL IV PUSH SCH (08:50)
[2018-01-02] MEDS: DIGOXIN SOLUTION 0.125 MG/2.5 ML CUP PO SCH (08:50)
[2018-01-02] MEDS: LANSOPRAZOLE SOLUTAB 30 MG TAB G-TUBE SCH (08:50)
[2018-01-02] MEDS: DOCUSATE SODIUM 50 MG/SENNA 8.6 MG TAB PO SCH ×2 (08:51→21:00)
[2018-01-02] MEDS: CALCIUM ACETATE 667 MG CAP PO SCH ×3 (08:51→19:19)
[2018-01-02] MEDS: SODIUM CHLORIDE 0.9% FLUSH 10 ML FLUSH IV FLUSH SCH ×2 (08:51→21:15)
[2018-01-02] MEDS: FERROUS SULFATE 325 MG (65 MG ELEMENTAL IRON) TAB PO SCH ×2 (08:51→21:15)
[2018-01-02] MEDS: RIVAROXABAN 10 MG TAB PO SCH (08:51)
[2018-01-02] MEDS: ARTIFICIAL TEARS OPTH SOLN 15 ML BTL EACH EYE SCH ×3 (09:00→18:00)
--- NOTE | 2018-01-02 10:27 | HHI.CCPN ---
Subjective Remarks/Hospital Course This is a 62-year-old male. Date of admission 12/23/2017. Past medical history includes atrial fibrillation on chronic rivaroxaban use, chronic diastolic heart failure ejection fraction 55%, COPD, obstructive sleep apnea on CPAP nocturnally, history of 3 times daily, chronic lipidemia/venous stasis, hypertension, chronic kidney disease stage IIIa, diabetes mellitus and chronic low back pain. Patient is a resident of [facility] who presented here to [facility] with acute onset of shortness of breath this a.m. at his nursing facility. He is brought to the emergency department for evaluation. According to Dr. Jameson, patient was tachypneic and becoming more uncomfortable and experienced hypoxic hypercapnic respiratory failure in the ED. Patient was intubated using glide scope. Furosemide 40 mg IV. Patient was noted to be hyperkalemic with potassium 5.7. D50 50 mL IV given. Novolin R 8 units IV given along with 1 ampule of D50. Calcium gluconate 1 g IV given. Repeat potassium pending. Patient became hypotensive propofol drip currently on midazolam and fentanyl drips for sedation while intubated. Initial blood gas reveals significant respiratory acidosis. We are asked to admit the patient. 12/24: Currently biting on endotracheal tube. Will increase sedation. FiO2 50% . Continue diuresis. Afebrile. Arousable and does follow commands on the ventilator. No bowel movement. 12/25: Afebrile. Resting in bed in no acute distress. FiO2 down to 50%. PEEP today. Tolerating diet. 12/26: FiO2 stable at 50%. PEEP is currently at 8. Tolerating diet. No bowel movement today. Extremely agitated off sedative medications. 12/27: Patient continues on sedation currently fentanyl 150 mcgs/hr Versed 7 mg/ hour, currently tolerating CPAP trials. No bowel movement, reported minimal tube feed residual. 12/28: Failed CPAP trials today did not last longer than 5 minutes with repeated efforts. Patient awake not following commands. Comes combative when totally off sedation plan to transition to Precedex for ventilator weaning 12/29: Patient continues on CPAP trials, all sedation is off. Plan for SBT trials . Patient currently having high pressure requirements pressure support of 18 continuing to wean down. 12/30: Pt tolerated CPAP for 7.5 hours last night., Patient continues on Precedex infusion for assistance with ventilator weaning process. Pressure support decreased to 16. Patient vomited moderate amount of tube feeds this a.m.. Tube feeds currently on hold. 12/31: Afebrile . Patient continues on low-dose Precedex 0.2 mcgs/hr. patient tolerated CPAP trials 10/5 for approximately 24 hours. SBT performed this a.m. , successful parameters plan for extubation. 01/01 Patient s/p extubation on 3L oxygen. Afebrile. Awake and alert. Subjective 01/02 Afebrile. On 3 L NC. Says he is feeling "much better". States he wore CPAP overnight without issues. He is preoccupied with paying his bills/rent on his condo. Hasn't been out of bed per discussion with RN. Objective Vital Signs Date Time Temp Pulse Resp B/P (MAP) Pulse Ox O2 Delivery O2 Flow Rate FiO2 01/02/18 08:52 97 High Flow Nasal Cannula 3.00 01/02/18 06:00 82 01/02/18 05:55 30 01/02/18 04:00 98.8 13 166/82 (110) Intake and Output 01/02/18 01/02/18 01/03/18 08:00 16:00 00:00 Intake Total 720 ml Output Total 1575 ml Balance -855 ml Result Diagram: 01/02/18 0537 01/02/18 0537 Imaging Last Impressions Chest X-Ray 12/31/17 0600 Signed Impressions: Service Date/Time: December 03:06 - CONCLUSION: No significant change. Bibasilar atelectasis and small effusions again noted. Renny Smith MD Abdomen X-Ray 12/27/17 0000 Signed Impressions: Service Date/Time: Wednesday, December 27, 2017 14:24 - CONCLUSION: Contrast in the distal colon. Renny Hinojosa MD Lower Extremity Ultrasound 12/23/17 0000 Signed Impressions: Service Date/Time: Saturday, December 23, 2017 16:46 - CONCLUSION: 1. Negative for deep venous thrombosis in the lower extremities. Mannie Croft MD Objective Remarks GENERAL: Morbidly obese 62-year-old male sitting up in bed, alert and conversant. SKIN: Warm and dry. HEAD: Atraumatic. Normocephalic. EYES: Pupils equal and round 3mm and reactive. No scleral icterus. No injection or drainage. ENT: No nasal bleeding or discharge. Mucous membranes pink and moist. NECK: Trachea midline. No JVD. CARDIOVASCULAR: Regular rate and rhythm. S1, S2. No S4. Without murmur RESPIRATORY: Appears to be breathing comfortably on nasal cannula. B/L equal air entry GASTROINTESTINAL: Abdomen soft, non-tender, nondistended. Bowel sounds present. Hepatic and splenic margins not palpable. : Meadows in place with pale yellow urine output MUSCULOSKELETAL: Extremities with chronic venous stasis/lymphedema bilateral lower extremities. Positive onychomycosis bilateral lower extremity nail beds NEUROLOGICAL: Awake and alert. Oriented to [facility], year, selft. Moves all extremities spontaneously. Date of Insertion: Dec 23, 2017 Line: Central Venous Catheter Side: Right Location: Femoral A/P Assessment and Plan Neuro/Psych: History of TIA Awake and alert CV: Chronic diastolic heart failure ejection fraction 55% 08/30 Hypertension/essential Dyslipidemia Atrial fibrillation Moderate to severe pulmonary hypertension -pulmonary arterial systolic pressure 57 mmHg 08/30 Continue Cardizem 60mg Q6 monitor HR and BP keep MAP>65mmHg. was on cardizem 240 LA daily at [facility]) Hypertensive, resume metoprolol 25 mg p.o q8 hours (dose he was on at [facility]) 2D echocardiogram revealed EF 55%. LVH. PASP 57 mmHg Digoxin level 0.9. On 0.125 mg daily at [facility]-continued Atorvastatin 40 mg p.o. daily for dyslipidemia Is diuresing well with Furosemide 40 mg IV to daily; will continue for now. Home med was torsemide 40 po daily. Continue chronic anticoagulation with rivaroxaban. Resp: Acute on chronic hypoxic respiratory failure, acute component resolved. DENIS COPD/oxygen dependent Continue with CA oxygen keep sats >92% Albuterol/ipratropium aerosols every 4 hours with albuterol aerosols every 2 hours as needed dyspnea Incentive spirometry Budesonide 0.5/2 1 inhalation twice daily Methylprednisolone succinate 40 mg IV every 8 hours--> wean to q12 hours. NIPPV at night. GI: Elevated alkaline phosphatase On PO heart healthy diet Lansoprazole for GI prophylaxis Docusate sodium/senna 1 tablet twice daily for bowel regimen FEN/RENAL: BPH Chronic kidney disease stage IIIa Monitor renal function, I/O's, avoid nephrotoxins Renal function is improving with Cr: 1.38 from 1.47 On Lasix 40mg IV daily REmove meadows and place a condom catheter Endo: Diabetes mellitus Secondary hyperparathyroidism Sliding scale insulin with Novulin R with Accu-Cheks every 6 hours to maintain euglycemia/medium regimen. Glucose is at target. Continue calcium acetate 667 mg by tube 3 times daily TSH 1.94 Heme: Chronic rivaroxaban use for A fib Normocytic anemia Leukopenia rivaroxaban 10 mg daily Monitor CBC daily. Follow trends Continue Ferrous sulfate twice daily ID: Was on ampicillin 500 mg 3 times daily ? chronic lower extremity cellulitis Has been on Zosyn 12/24 #10. Afebrile, no leukocytosis, cultures negative. Will discontinue Zosyn and watch off antibiotics. Blood cultures 2, UA, sputum ordered 12/23 with results -NGTD Influenza a and B negative Urine Legionella pneumococcal antigens negative MSK: Chronic lymphedema/venous stasis PT evaluate and treat Specialty bed Access -Utilize peripheral IV. Prophylaxis -GI -lansoprazole -DVT -SCD/rivaroxaban provides DVT prophylaxis Out of bed with assistance. PT consult. OT consult. Patient will need to return to [facility]. Level 2 follow up Karrie Gifford MD Jan 02, 2018 10:27
[2018-01-02] MEDS ORDERED: METOPROLOL TARTRATE 25 MG TAB PO SCH (14:00)
[2018-01-02] MEDS: METOPROLOL TARTRATE 25 MG TAB PO SCH ×2 (14:11→21:15)
[2018-01-03] VITALS (24 sets, daily range): BP systolic 142–167; BP diastolic 65–95; PULSE 74–93; RESP 9–22; TEMP 97.6–99; O2SAT 94–100
[2018-01-03] MEDS: RESP: ALBUTEROL 2.5 MG/IPRATROPIUM 0.5 MG NEB (SCH) NEB ×6 (00:50→21:26)
[2018-01-03] MEDS: DILTIAZEM HCL 60 MG TAB PO SCH ×4 (04:00→20:59)
[2018-01-03] MEDS: CHLORHEXIDINE GLUCONATE 2 % 1 PACK (2 CLOTHS) TOP SCH (04:00)
[2018-01-03] MEDS: INSULIN NovoLIN REGULAR SUPPLEMENTAL SCALE SQ SCH ×6 (04:00→20:58)
[2018-01-03] MEDS: METOPROLOL TARTRATE 25 MG TAB PO SCH (05:54)
[2018-01-03] MEDS: methylPREDNISolone SOD SUCC 40 MG/1 ML VIAL IV PUSH SCH ×2 (05:55→18:51)
[2018-01-03 06:01] LABS: AUTOMATED NEUTROPHIL # 6.9 TH/MM3 (1.8-7.7); BASOPHIL % 0.2 % (0.0-2.0); EOSINOPHIL % 0.1 % (0.0-4.0); HEMATOCRIT 31.8 % (39.0-51.0); HEMOGLOBIN 9.7 GM/DL (13.0-17.0); LYMPH % 4.3 % (9.0-44.0); LYMPHOCYTE # 0.3 TH/MM3 (1.0-4.8); MEAN CELL VOLUME 81.4 FL (80.0-100.0); MEAN CORPUSCULAR HGB CONC 30.7 % (32.0-36.0); MEAN PLATELET VOLUME 8.8 FL (7.0-11.0); MONO % 6.4 % (0.0-8.0); MONOCYTE # 0.5 TH/MM3 (0-0.9); PLATELET COUNT 204 TH/MM3 (150-450); RED CELL DISTRIBUTION WIDTH 18.5 % (11.6-17.2); WHITE BLOOD COUNT 7.8 TH/MM3 (4.0-11.0)
[2018-01-03 06:21] LABS: BICARBONATE 27.3 MEQ/L (21.0-32.0); CALCIUM 9.1 MG/DL (8.5-10.1); CREATININE 1.1 MG/DL (0.60-1.30)
[2018-01-03] MEDS: RESP: BUDESONIDE 0.5 MG/2 ML NEB NEB SCH ×2 (07:16→21:26)
--- NOTE | 2018-01-03 07:20 | HHI.PR ---
Subjective Remarks Hospitalist service assuming care of patient. In summary, this is a 62 year old male with h/o AFIB, diastolic CHF, COPD, DENIS, HTN, CKD III, and DM admitted for CHF exacerbation after presenting with acute onset SOB at his nursing facility, [facility]. He was emergently intubated in the ED for hypoxic hypercapnic respiratory failure. CXR demonstrated cardiomegaly and pulmonary vascular congestion. He was treated with IV diuresis as well as broad-spectrum antibiotics including Azithromycin, Zosyn, and Vancomycin for coverage of sepsis with possible healthcare associated PNA. He was extubated on 01/01 and care was assumed by [facility] on 01/03. Seen and examined this morning. VS reviewed. D/w nursing. BP elevates when pt is anxious and has required IV hydralazine. Otherwise he has been stable with no acute events overnight. Pt reports he is feeling well and breathing at his baseline. He states he was at [facility] for short-term rehab after his last hospitalization a few weeks ago. He is anxious to get back to his condo. He states he uses 2L O2 pretty much all day at home. He ambulates with a cane at baseline. He hasn't gotten up much since being extubated. His appetite is diminished which he attributes to the hospital food; is agreeable to supplement with shakes. He denies CP, abdominal pain, N/V. He is voiding well. Objective Vital Signs Date Time Temp Pulse Resp B/P (MAP) Pulse Ox O2 Delivery O2 Flow Rate FiO2 01/03/18 06:00 77 01/03/18 04:23 96 30 01/03/18 04:00 97.6 77 16 166/77 (106) 96 01/03/18 04:00 78 01/03/18 02:00 82 01/03/18 00:52 95 30 01/03/18 00:00 98.1 78 18 142/65 (90) 94 01/03/18 00:00 76 01/02/18 22:00 82 01/02/18 21:42 100 30 01/02/18 20:51 100 3.00 01/02/18 20:00 98.0 89 15 149/71 (97) 98 01/02/18 20:00 92 01/02/18 20:00 Nasal Cannula 3.00 01/02/18 18:00 95 01/02/18 16:00 98.2 95 19 131/72 (91) 97 01/02/18 16:00 95 01/02/18 14:00 96 01/02/18 12:00 97.9 92 16 156/102 (120) 94 01/02/18 12:00 92 01/02/18 10:00 89 01/02/18 08:52 97 High Flow Nasal Cannula 3.00 01/02/18 08:00 98.1 86 18 160/86 (110) 97 01/02/18 08:00 86 01/02/18 07:00 95 Nasal Cannula 3.00 I/O 01/02/18 01/02/18 01/02/18 01/03/18 01/03/18 01/03/18 07:00 15:00 23:00 07:00 15:00 23:00 Intake Total 720 ml 550 ml 360 ml Output Total 1575 ml 2100 ml 950 ml Balance -855 ml -1550 ml -590 ml Intake Oral 720 ml 450 ml 360 ml IV Total 100 ml Output Urine Total 1575 ml 2100 ml 950 ml # Bowel Movements 1 1 0 Result Diagram: 01/03/18 0454 01/03/18 0454 Objective Remarks GENERAL: Obese male laying comfortably in bed in [facility]. SKIN: Warm and dry. HEENT: AT/NC. Pupils equal and round. MMM. NECK: Supple no tender LAD. JVD difficult to assess secondary to neck habitus. HEART: RRR no m/r/g. LUNGS: CTAB without wheezes or crackles. ABDOMEN: +BS, soft, NT, ND. EXTREMITIES: Venous stasis changes bilaterally. Thickened, discolored toenails. NEURO: Awake and alert. Nonfocal. PSYCH: Appropriate mood and affect. A/P Assessment and Plan 62 year old male with h/o AFIB, diastolic CHF, COPD, DENIS, HTN, CKD III , and DM admitted 12/23 for CHF exacerbation after presenting with acute onset SOB at his nursing facility, [facility]. He was emergently intubated in the ED for hypoxic hypercapnic respiratory failure. CXR demonstrated cardiomegaly and pulmonary vascular congestion. He was treated with IV diuresis as well as broad-spectrum antibiotics including Azithromycin, Zosyn, and Vancomycin for coverage of sepsis with possible healthcare associated PNA. He was extubated on 01/01 and care was assumed by [facility] on 01/03. 1. Acute on chronic respiratory failure - Acute component resolved s/p intubation 12/23-01/01 - Supplemental O2 - DuoNeb Q4H - SoluMedrol 40 mg IV Q12 - Change to Prednisone 40 mg PO starting tomorrow 2. CHF exacerbation - Acute component resolved - Echo on 12/24 revealed EF 55%, LVH, and peak pulmonary pressure 57 mmHg - Lasix IV 40 mg, change to PO tomorrow - Continuing home metoprolol and Digoxin 3. Sepsis - Patient met sepsis criteria on admission with HR>90, WBC >12K, and possible PNA as suspected source - Treated with Azithromycin, Vancomycin, and Zosyn 12/23-12/30 - Acute component resolved - Has remained afebrile with no leukocytosis - Blood, urine, and sputum cultures negative - Negative urine legionella and pneumococcal - Negative influenza 4. Acute on chronic renal insufficiency (CKD III at baseline) - Creatinine 1.58 on admission down to 1.10 - Acute component resolved - Monitor creatinine - Avoid nephrotoxic agents - Continue home Phoslo 5. DENIS/obesity hypoventilation syndrome with pulmonary HTN - Continue BiPAP at night - Patient supposed to be on CPAP at home but has misplaced and been without it for several months - Will consult pulmonology and case management to see if CPAP can be arranged on discharge 6. Atrial fibrillation - Rate-controlled - Continuing home Cardizem and Xarelto 7. O2-dependent COPD - Continue home Pulmicort - DuoNeb Q4H - Supplemental O2 PRN 8. DM - SSI per protocol 9. HTN - BPs have been elevated - Increase metoprolol to 50 mg PO Q8H 10. HLD - Resume home statin 11. Weakness, deconditioning - PT to eval and treat - OOB with assistance DVT prophylaxis: on Xarelto Discharge Planning Anticipate D/C in next couple days as patient continues to improve. Case management to assist with D/C needs Lin Barros MD Jan 03, 2018 07:20
[2018-01-03] MEDS: CHLORHEXIDINE 0.12% (ORAL KIT) 15 ML CUP MT SCH ×2 (08:00→20:00)
[2018-01-03] MEDS: ARTIFICIAL TEARS OPTH SOLN 15 ML BTL EACH EYE SCH ×3 (09:00→18:00)
[2018-01-03] MEDS: RIVAROXABAN 10 MG TAB PO SCH (10:03)
[2018-01-03] MEDS: FUROSEMIDE 40 MG/4 ML VIAL IV PUSH SCH (10:03)
[2018-01-03] MEDS: CALCIUM ACETATE 667 MG CAP PO SCH ×3 (10:03→18:51)
[2018-01-03] MEDS: SODIUM CHLORIDE 0.9% FLUSH 10 ML FLUSH IV FLUSH SCH ×2 (10:04→20:59)
[2018-01-03] MEDS: FERROUS SULFATE 325 MG (65 MG ELEMENTAL IRON) TAB PO SCH ×2 (10:04→20:59)
[2018-01-03] MEDS: LANSOPRAZOLE SOLUTAB 30 MG TAB G-TUBE SCH (10:04)
[2018-01-03] MEDS: DIGOXIN SOLUTION 0.125 MG/2.5 ML CUP PO SCH (10:04)
[2018-01-03] MEDS: DOCUSATE SODIUM 50 MG/SENNA 8.6 MG TAB PO SCH ×2 (10:06→20:59)
--- NOTE | 2018-01-03 14:07 | MB ---
cc: Stephanie Puckett MD DATE: 01/03/2018 REASON FOR CONSULTATION: COPD, pulmonary hypertension. HISTORY OF PRESENT ILLNESS: The patient is a 62-year-old male with multiple comorbidities which include chronic diastolic heart failure with ejection fraction 55%, hypertension, obstructive sleep apnea, COPD, diabetes mellitus, atrial fibrillation on Xarelto, hyperlipidemia, and chronic kidney disease. He was admitted to [place] on 12/23/2017 for acute hypoxemic and hypercapnic respiratory failure requiring intubation and mechanical ventilation. He was extubated on 12/31/2017. His last chest x-ray from 12/31/2017 showed bibasilar atelectasis and small effusions. The patient also had a Doppler ultrasound of lower extremity on 12/23/2017 which was negative for DVT. Echocardiogram was performed on 12/24/2017 which showed EF of 50-55%, moderate pulmonary hypertension with PA pressure 56 mmHg. The patient is a nonsmoker. He states that he uses 2 liters oxygen at home and he is also on BiPAP nocturnally and p.r.n. during the day for respiratory distress. The patient is awake, alert, on 3 liter oxygen. He is hypertensive. PAST MEDICAL HISTORY: Significant for diabetes mellitus, coronary artery disease, atrial fibrillation on Xarelto, chronic diastolic heart failure, chronic lymphedema/venostasis, COPD, hypertension, obstructive sleep apnea, anemia, chronic kidney disease stage IIIA, secondary hyperparathyroidism, iron deficiency anemia, dyslipidemia. PAST SURGICAL HISTORY: Previous cardiac ablation, previous appendectomy, previous ORIF of the right arm. FAMILY HISTORY: Diabetes mellitus and hypertension runs in the family. SOCIAL HISTORY: Nonsmoker, however, he was exposed to secondhand smoking. MEDICATIONS: Current medications include: Solu-Medrol, Lopressor, Lipitor, Lasix, DuoNeb, digoxin, Xarelto, ferrous sulfate. REVIEW OF SYSTEMS: As per HPI. Rest of review of systems is unremarkable. PHYSICAL EXAMINATION: GENERAL: A 62-year-old male lying in bed in no acute respiratory distress. VITAL SIGNS: Temperature of 98.4, pulse of 93, respiratory rate of 17, blood pressure 167/77, saturation 97% on 3 liters. HEENT: Atraumatic, normocephalic. Pupils are equal, round, reactive to light and accommodation. Extraocular muscles intact. Conjunctivae pink. Nonicteric sclerae. Oral mucosa within normal. NECK: Supple. No JVD, adenopathy, thyromegaly. Trachea midline. HEART: Regular rate and rhythm. Normal S1, S2, no murmurs, rubs or gallops noted. LUNGS: Bilateral equal air entry. No wheezing or crackles. ABDOMEN: Soft, obese, nontender. No distention. Positive bowel sounds. EXTREMITIES: No cyanosis, clubbing. Edema and chronic venostasis noted. NEUROLOGIC: No focal sensory deficit. LABORATORY DATA: Sodium 140, potassium 4.2, chloride 105, CO2 27, BUN 44, creatinine 1.1, glucose 145. WBC 7.8, hemoglobin 9.7, hematocrit 31, platelet count 204. INR 1.3, PT 13.1, PTT 25.8. RADIOGRAPHIC STUDIES: A chest x-ray from 12/31/2017 showed bibasilar atelectasis. IMPRESSION: 1. [id number] hypercapnic respiratory insufficiency. 2. Chronic obstructive pulmonary disease exacerbation on 2 liters home oxygen. 3. Obesity hypoventilation syndrome. 4. Morbid obesity, obstructive sleep apnea. 5. Diastolic congestive heart failure. 6. Moderate pulmonary hypertension likely secondary to COPD and obstructive sleep apnea. 7. Hypertension. 8. Diabetes mellitus. 9. Hyperlipidemia. 10. Atrial fibrillation on Xarelto. RECOMMENDATIONS: 1. Continue with oxygen and maintain sats above 92%. 2. Bronchodilators in the form of DuoNeb q. 4 plus q. 2 hours p.r.n. for shortness of breath and in addition, the patient is on Pulmicort nebs 0.5 mg q. 12 hours. 3. Continue with IV steroids. He is on Solu-Medrol 40 mg IV q. 12 hours. Incentive spirometry , check CXR. 4. Continue with noninvasive positive pressure ventilation p.r.n. and nocturnally at bedtime for sleep apnea. 5. Will need pulmonary function test as an outpatient to assess the severity of his obstructive and rule out restrictive lung disease. 6. Sleep study for evaluation of obstructive sleep apnea. 7. Echocardiogram showed EF of 50-55% with moderate pulmonary hypertension, PA pressure 56 mmHg. He has pulmonary hypertension likely secondary to his chronic lung disease. 8. Continue with Xarelto for atrial fibrillation and also it will provide for DVT prophylaxis. Doppler ultrasound of lower extremity was negative for DVT. 9. Incentive spirometry q. 1 hour while awake. Repeat chest x-ray. 10. Monitor for signs of infection which include fever and WBC. On 12/23/2017, he had a negative screening for influenza, in addition, his sputum culture was negative, on 12/24/2017, strep pneumonia, legionella urinary antigen were negative as well. 11. Continue with diuretics. The patient is on Lasix 40 mg daily. 12. GI and DVT prophylaxis per primary team. 13. Further recommendations will be based on the hospital course. Thank you for the consultation and allowing us to participate in this patient's care. Stephanie Puckett MD AI/CHRISTIAN , 01:29 PM , 02:06 PM MTDD
[2018-01-03] MEDS: METOPROLOL TARTRATE 50 MG TAB PO SCH ×2 (14:19→20:59)
--- NOTE | 2018-01-03 14:34 | RADRPT ---
EXAM DATE/TIME: 01/03/2018 13:39 [facility] COMPARISON: CHEST SINGLE AP, December 31, 2017, 3:06. INDICATIONS : Shortness of breath. MEDICAL HISTORY : Chronic obstructive pulmonary disease. Cirrhosis. Hypertension. Atrial fibrillation. SURGICAL HISTORY : Cardiac ablation. ENCOUNTER: Initial ACUITY: 1 day PAIN SCORE: 0/10 LOCATION: Bilateral chest FINDINGS: A single view of the chest demonstrates interval removal of the endotracheal and nasogastric tubes. H eart size remains prominent. There are persistent bibasilar areas of consolidation/effusion but these do appear improved when compared to the prior CONCLUSION: 1. Improving but persistent bibasilar airspace disease/infiltrates. Stable cardiomegaly 2. Interval removal of the endotracheal and nasogastric tube seen previously Brian Beebe MD on January 03, 2018 at 14:30 Board Certified Radiologist. This report was verified electronically.
[2018-01-03] MEDS: ATORVASTATIN 40 MG TAB PO SCH (20:59)
[2018-01-03] MEDS ORDERED: METOPROLOL TARTRATE 50 MG TAB PO SCH (21:00)
[2018-01-04] VITALS (21 sets, daily range): BP systolic 158–196; BP diastolic 70–88; PULSE 71–147; RESP 14–29; TEMP 97.5–98.9; O2SAT 96–100
[2018-01-04] MEDS: INSULIN NovoLIN REGULAR SUPPLEMENTAL SCALE SQ SCH ×7 (00:44→23:51)
[2018-01-04] MEDS: RESP: ALBUTEROL 2.5 MG/IPRATROPIUM 0.5 MG NEB (SCH) NEB ×7 (00:49→23:36)
[2018-01-04] MEDS: DILTIAZEM HCL 60 MG TAB PO SCH ×4 (02:00→21:04)
[2018-01-04] MEDS: CHLORHEXIDINE GLUCONATE 2 % 1 PACK (2 CLOTHS) TOP SCH (02:01)
[2018-01-04 05:17] LABS: AUTOMATED NEUTROPHIL # 7.5 TH/MM3 (1.8-7.7); BASOPHIL % 0.1 % (0.0-2.0); HEMATOCRIT 30.9 % (39.0-51.0); HEMOGLOBIN 9.6 GM/DL (13.0-17.0); LYMPH % 3.4 % (9.0-44.0); LYMPHOCYTE # 0.3 TH/MM3 (1.0-4.8); MEAN CELL VOLUME 82.5 FL (80.0-100.0); MEAN CORPUSCULAR HEMOGLOBIN 25.7 PG (27.0-34.0); MEAN CORPUSCULAR HGB CONC 31.2 % (32.0-36.0); MONO % 4.5 % (0.0-8.0); MONOCYTE # 0.4 TH/MM3 (0-0.9); PLATELET COUNT 203 TH/MM3 (150-450); RED BLOOD COUNT 3.75 MIL/MM3 (4.50-5.90); RED CELL DISTRIBUTION WIDTH 18.7 % (11.6-17.2); WHITE BLOOD COUNT 8.1 TH/MM3 (4.0-11.0)
[2018-01-04 05:40] LABS: BICARBONATE 30.4 MEQ/L (21.0-32.0); CALCIUM 9.2 MG/DL (8.5-10.1); CREATININE 0.88 MG/DL (0.60-1.30)
[2018-01-04] MEDS: methylPREDNISolone SOD SUCC 40 MG/1 ML VIAL IV PUSH SCH (05:47)
[2018-01-04] MEDS: METOPROLOL TARTRATE 50 MG TAB PO SCH (05:48)
--- NOTE | 2018-01-04 07:08 | HHI.PR ---
Subjective Remarks Pt seen and examined. VS reviewed, BPs elevated consistently. Pt reports he is doing well. States his breathing is better and he denies CP, SOB, wheezing, abdominal pain, N/V. Appetite improved. Worked with PT yesterday and had a very difficult time trying to stand. He states he feels very weak but is hesitant about going to a SNF because of cost and he thinks he may be running out of days his insurance will cover. Today he clarifies that he did not misplace his CPAP machine but rather he never got it after his field application engineer arranged it for him. He states "it never got to where I was supposed to pick it up." States he last saw his field application engineer about six months ago but plans on seeing him after discharge. Objective Vital Signs Date Time Temp Pulse Resp B/P (MAP) Pulse Ox O2 Delivery O2 Flow Rate FiO2 01/04/18 06:00 82 01/04/18 05:30 79 14 100 01/04/18 05:01 78 14 176/77 (110) 98 01/04/18 05:00 81 14 196/79 (118) 99 01/04/18 04:30 81 16 97 01/04/18 04:00 78 01/04/18 04:00 98.8 78 20 163/82 (109) 100 01/04/18 03:30 76 20 97 01/04/18 03:00 81 23 176/78 (110) 97 01/04/18 02:30 147 29 98 01/04/18 02:00 83 01/04/18 02:00 83 17 168/79 (108) 99 01/04/18 01:30 81 18 97 01/04/18 01:04 79 18 172/88 (116) 98 01/04/18 01:00 80 18 180/81 (114) 100 01/04/18 00:00 80 01/04/18 00:00 98.7 80 17 168/77 (107) 97 01/03/18 23:30 80 17 98 01/03/18 23:00 80 18 166/95 (118) 98 01/03/18 22:30 81 9 98 01/03/18 22:00 82 01/03/18 22:00 82 14 163/80 (107) 98 01/03/18 21:30 80 12 100 4/22/18 21:28 100 Nasal Cannula 3.00 01/03/18 21:00 80 13 162/84 (110) 100 01/03/18 20:30 80 15 100 01/03/18 20:00 98.6 89 22 157/74 (101) 100 01/03/18 20:00 86 01/03/18 19:30 87 19 100 01/03/18 19:00 100 Nasal Cannula 3.00 01/03/18 19:00 87 21 160/75 (103) 98 01/03/18 18:00 79 01/03/18 16:00 98.1 74 20 154/78 (103) 98 01/03/18 16:00 74 01/03/18 14:00 88 01/03/18 12:00 93 01/03/18 12:00 98.4 85 17 167/77 (107) 97 01/03/18 10:00 89 01/03/18 08:00 85 01/03/18 08:00 99.0 85 17 167/77 (107) 97 01/03/18 07:19 94 Nasal Cannula 3.00 I/O 01/03/18 01/03/18 01/03/18 01/04/18 01/04/18 01/04/18 07:00 15:00 23:00 07:00 15:00 23:00 Intake Total 360 ml 500 ml 100 ml Output Total 950 ml 1200 ml 500 ml Balance -590 ml -700 ml -400 ml Intake Oral 360 ml 500 ml 100 ml Output Urine Total 950 ml 1200 ml 500 ml Stool Total 0 ml # Bowel Movements 0 3 0 Result Diagram: 01/04/1842001/04/181 Objective Remarks GENERAL: Obese male laying comfortably in bed in [facility]. SKIN: Warm and dry. HEENT: AT/NC. Pupils equal and round. MMM. NECK: Supple no tender LAD. JVD difficult to assess secondary to neck habitus. HEART: RRR no m/r/g. LUNGS: CTAB without wheezes or crackles. ABDOMEN: +BS, soft, NT, ND. EXTREMITIES: Venous stasis changes bilaterally. Thickened, discolored toenails. NEURO: Awake and alert. Nonfocal. PSYCH: Appropriate mood and affect. A/P Assessment and Plan 62 year old male with h/o AFIB, diastolic CHF, COPD, DENIS, HTN, CKD III , and DM admitted 12/23 for CHF exacerbation after presenting with acute onset SOB at his nursing facility, [facility]. He was emergently intubated in the ED for hypoxic hypercapnic respiratory failure. CXR demonstrated cardiomegaly and pulmonary vascular congestion. He was treated with IV diuresis as well as broad-spectrum antibiotics including Azithromycin, Zosyn, and Vancomycin for coverage of sepsis with possible healthcare associated PNA. He was extubated on 01/01 and care was assumed by [facility] on 01/03. 1. Acute on chronic respiratory failure - Acute component resolved s/p intubation 12/23-01/01 - Supplemental O2 - DuoNeb Q4H - Prednisone 40 mg PO 2. CHF exacerbation - Acute component resolved - Echo on 12/24 revealed EF 55%, LVH, and peak pulmonary pressure 57 mmHg - Lasix 40 mg PO - Continuing home metoprolol and Digoxin 3. Sepsis - Resolved - Patient met sepsis criteria on admission with HR>90, WBC >12K, and possible PNA as suspected source - Treated with Azithromycin, Vancomycin, and Zosyn 12/23-12/30 - Has remained afebrile with no leukocytosis - Blood, urine, and sputum cultures negative - Negative urine legionella and pneumococcal - Negative influenza 4. Acute on chronic renal insufficiency (CKD III at baseline) - Creatinine 1.58 on admission down to 0.88 - Acute component resolved - Monitor creatinine - Avoid nephrotoxic agents - Continue home Phoslo 5. DENIS/obesity hypoventilation syndrome with pulmonary HTN - Continue BiPAP at night - Patient supposed to be on CPAP at home but has never received his machine - Will need outpatient PFTs and possibly another sleep study - Pulm consulted, appreciate reccs 6. Atrial fibrillation - Rate-controlled - Continuing home Cardizem and Xarelto 7. O2-dependent COPD - Continue home Pulmicort - DuoNeb Q4H - Supplemental O2 PRN 8. DM - SSI per protocol 9. HTN - BPs have been elevated - Increase metoprolol to 100 mg Q12 10. HLD - Resume home statin 11. Weakness, deconditioning - PT recommending long-term nursing - OOB with assistance DVT prophylaxis: on Xarelto Discharge Planning Transfer out of the unit today and will observe another day since transitioning to PO meds today. CM assisting with D/C needs. Pt will return back to [facility],Lin Packer MD Jan 04, 2018 07:08
[2018-01-04] MEDS ORDERED: METOPROLOL TARTRATE 50 MG TAB PO ONE (08:00)
[2018-01-04] MEDS: CHLORHEXIDINE 0.12% (ORAL KIT) 15 ML CUP MT SCH ×2 (08:00→20:00)
[2018-01-04] MEDS: RESP: BUDESONIDE 0.5 MG/2 ML NEB NEB SCH ×2 (08:04→20:00)
[2018-01-04] MEDS: ARTIFICIAL TEARS OPTH SOLN 15 ML BTL EACH EYE SCH ×3 (09:00→16:43)
[2018-01-04] MEDS: FUROSEMIDE 40 MG TAB PO SCH (09:00)
[2018-01-04] MEDS: RIVAROXABAN 10 MG TAB PO SCH (09:01)
[2018-01-04] MEDS: FERROUS SULFATE 325 MG (65 MG ELEMENTAL IRON) TAB PO SCH ×2 (09:01→21:04)
[2018-01-04] MEDS: LANSOPRAZOLE SOLUTAB 30 MG TAB G-TUBE SCH (09:01)
[2018-01-04] MEDS: predniSONE 20 MG TAB PO SCH (09:01)
[2018-01-04] MEDS: DOCUSATE SODIUM 50 MG/SENNA 8.6 MG TAB PO SCH ×2 (09:01→21:04)
[2018-01-04] MEDS: CALCIUM ACETATE 667 MG CAP PO SCH ×3 (09:01→16:43)
[2018-01-04] MEDS: DIGOXIN SOLUTION 0.125 MG/2.5 ML CUP PO SCH (09:02)
[2018-01-04] MEDS: SODIUM CHLORIDE 0.9% FLUSH 10 ML FLUSH IV FLUSH SCH ×2 (09:02→21:05)
[2018-01-04] MEDS: ACETAMINOPHEN/HYDROcodone 325 MG/5 MG TAB PO PRN (11:58)
[2018-01-04] MEDS ORDERED: ACETAMINOPHEN 325 MG TAB PO PRN (12:00)
--- NOTE | 2018-01-04 14:59 | HHI.PR ---
Subjective Remarks ALERT NO SOB AT REST Objective Vital Signs Date Time Temp Pulse Resp B/P (MAP) Pulse Ox O2 Delivery O2 Flow Rate FiO2 01/04/18 12:00 80 01/04/18 12:00 98.9 80 29 158/73 (101) 96 01/04/18 08:04 98 Nasal Cannula 2.00 01/04/18 08:00 98.8 71 14 186/81 (116) 100 01/04/18 08:00 71 01/04/18 07:00 100 Nasal Cannula 3.00 01/04/18 06:00 82 01/04/18 05:30 79 14 100 01/04/18 05:01 78 14 176/77 (110) 98 01/04/18 05:00 81 14 196/79 (118) 99 01/04/18 04:30 81 16 97 01/04/18 04:00 78 01/04/18 04:00 98.8 78 20 163/82 (109) 100 01/04/18 03:30 76 20 97 01/04/18 03:00 81 23 176/78 (110) 97 01/04/18 02:30 147 29 98 01/04/18 02:00 83 01/04/18 02:00 83 17 168/79 (108) 99 01/04/18 01:30 81 18 97 01/04/18 01:04 79 18 172/88 (116) 98 01/04/18 01:00 80 18 180/81 (114) 100 01/04/18 00:00 80 01/04/18 00:00 98.7 80 17 168/77 (107) 97 01/03/18 23:30 80 17 98 01/03/18 23:00 80 18 166/95 (118) 98 01/03/18 22:30 81 9 98 01/03/18 22:00 82 01/03/18 22:00 82 14 163/80 (107) 98 01/03/18 21:30 80 12 100 01/03/18 21:28 100 Nasal Cannula 3.00 01/03/18 21:00 80 13 162/84 (110) 100 01/03/18 20:30 80 15 100 01/03/18 20:00 98.6 89 22 157/74 (101) 100 01/03/18 20:00 86 01/03/18 19:30 87 19 100 01/03/18 19:00 100 Nasal Cannula 3.00 01/03/18 19:00 87 21 160/75 (103) 98 01/03/18 18:00 79 01/03/18 16:00 98.1 74 20 154/78 (103) 98 01/03/18 16:00 74 I/O 01/03/18 01/03/18 01/03/18 01/04/18 01/04/18 01/04/18 07:00 15:00 23:00 07:00 15:00 23:00 Intake Total 360 ml 500 ml 100 ml Output Total 950 ml 1200 ml 500 ml Balance -590 ml -700 ml -400 ml Intake Oral 360 ml 500 ml 100 ml Output Urine Total 950 ml 1200 ml 500 ml Stool Total 0 ml # Bowel Movements 0 3 0 Result Diagram: 01/04/1842001/04/18420 Objective Remarks GENERAL: SKIN: Warm and dry. HEAD: Atraumatic. Normocephalic. EYES: Pupils equal and round. No scleral icterus. No injection or drainage. ENT: No nasal bleeding or discharge. Mucous membranes pink and moist. NECK: Trachea midline. No JVD. CARDIOVASCULAR: Regular rate and rhythm. RESPIRATORY: No accessory muscle use. Clear to auscultation. Breath sounds equal bilaterally. GASTROINTESTINAL: Abdomen soft, non-tender, nondistended. Hepatic and splenic margins not palpable. MUSCULOSKELETAL: Extremities without clubbing, cyanosis,4+ edema. No obvious deformities. NEUROLOGICAL: Awake and alert. No obvious cranial nerve deficits. Motor grossly within normal limits. Five out of 5 muscle strength in the arms and legs. Normal speech. PSYCHIATRIC: Appropriate mood and affect; insight and judgment normal. Assessment and Plan Assessment and Plan IMPRESSION RESPIRATORY FAILURE COPD MORBID OBESITY PLAN O2 / BIPAP NEEDED BRONCHODILATOR THERAPY LOOSE WT INCREASE ACTIVTY Yordan Farr MD Jan 04, 2018 14:59
[2018-01-04] MEDS: METOPROLOL TARTRATE 100 MG TAB PO SCH (21:04)
[2018-01-04] MEDS: ATORVASTATIN 40 MG TAB PO SCH (21:04)
[2018-01-05] VITALS (10 sets, daily range): BP systolic 127–168; BP diastolic 68–84; PULSE 69–80; RESP 17–22; TEMP 97.3–98.4; O2SAT 90–100
[2018-01-05] MEDS: RESP: ALBUTEROL 2.5 MG/IPRATROPIUM 0.5 MG NEB (SCH) NEB ×2 (03:27→07:40)
[2018-01-05] MEDS: CHLORHEXIDINE GLUCONATE 2 % 1 PACK (2 CLOTHS) TOP SCH (04:00)
[2018-01-05] MEDS: INSULIN NovoLIN REGULAR SUPPLEMENTAL SCALE SQ SCH ×5 (04:00→20:00)
[2018-01-05] MEDS: DILTIAZEM HCL 60 MG TAB PO SCH ×4 (04:16→21:31)
[2018-01-05] MEDS: RESP: BUDESONIDE 0.5 MG/2 ML NEB NEB SCH ×3 (07:40→20:50)
[2018-01-05] MEDS: CHLORHEXIDINE 0.12% (ORAL KIT) 15 ML CUP MT SCH ×2 (08:00→20:00)
[2018-01-05] MEDS: predniSONE 20 MG TAB PO SCH (08:59)
[2018-01-05] MEDS: ARTIFICIAL TEARS OPTH SOLN 15 ML BTL EACH EYE SCH ×3 (08:59→16:27)
[2018-01-05] MEDS: METOPROLOL TARTRATE 100 MG TAB PO SCH ×2 (09:00→21:31)
[2018-01-05] MEDS: LANSOPRAZOLE SOLUTAB 30 MG TAB G-TUBE SCH (09:00)
[2018-01-05] MEDS: FERROUS SULFATE 325 MG (65 MG ELEMENTAL IRON) TAB PO SCH ×2 (09:00→21:31)
[2018-01-05] MEDS: SODIUM CHLORIDE 0.9% FLUSH 10 ML FLUSH IV FLUSH SCH ×2 (09:00→21:32)
[2018-01-05] MEDS: FUROSEMIDE 40 MG TAB PO SCH (09:00)
[2018-01-05] MEDS: DOCUSATE SODIUM 50 MG/SENNA 8.6 MG TAB PO SCH ×2 (09:00→21:00)
[2018-01-05] MEDS: CALCIUM ACETATE 667 MG CAP PO SCH ×3 (09:00→16:27)
--- NOTE | 2018-01-05 09:02 | HHI.PR ---
Subjective Remarks ALERT NO SOB AT REST Objective Vital Signs Date Time Temp Pulse Resp B/P (MAP) Pulse Ox O2 Delivery O2 Flow Rate FiO2 01/05/18 07:43 97.3 77 21 142/80 (100) 90 01/05/18 07:40 97 Nasal Cannula 2.00 01/05/18 05:39 98 30 01/05/18 04:00 97.8 69 17 168/84 (112) 99 01/05/18 03:27 98 30 01/05/18 00:00 97.4 80 21 149/76 (100) 96 01/04/18 23:40 98 30 01/04/18 22:50 Room Air 01/04/18 20:29 99 Nasal Cannula 3.00 01/04/18 20:00 97.5 89 22 183/84 (117) 97 01/04/18 16:00 88 01/04/18 16:00 97.9 88 25 160/70 (100) 98 01/04/18 12:00 80 01/04/18 12:00 98.9 80 29 158/73 (101) 96 I/O 01/04/18 01/04/18 01/04/18 01/05/18 01/05/18 01/05/18 07:00 15:00 23:00 07:00 15:00 23:00 Intake Total 100 ml 480 ml Output Total 500 ml 550 ml 450 ml Balance -400 ml -70 ml -450 ml Intake Oral 100 ml 480 ml Output Urine Total 500 ml 550 ml 450 ml # Bowel Movements 0 0 0 Result Diagram: 01/04/1842001/04/18420 Objective Remarks GENERAL: SKIN: Warm and dry. HEAD: Atraumatic. Normocephalic. EYES: Pupils equal and round. No scleral icterus. No injection or drainage. ENT: No nasal bleeding or discharge. Mucous membranes pink and moist. NECK: Trachea midline. No JVD. CARDIOVASCULAR: Regular rate and rhythm. RESPIRATORY: No accessory muscle use. Clear to auscultation. Breath sounds equal bilaterally. GASTROINTESTINAL: Abdomen soft, non-tender, nondistended. Hepatic and splenic margins not palpable. MUSCULOSKELETAL: Extremities without clubbing, cyanosis,4+ edema. No obvious deformities. NEUROLOGICAL: Awake and alert. No obvious cranial nerve deficits. Motor grossly within normal limits. Five out of 5 muscle strength in the arms and legs. Normal speech. PSYCHIATRIC: Appropriate mood and affect; insight and judgment normal. Assessment and Plan Assessment and Plan IMPRESSION RESPIRATORY FAILURE COPD MORBID OBESITY PLAN O2 / BIPAP NEEDED BRONCHODILATOR THERAPY LOOSE WT INCREASE ACTIVTY Yordan Farr MD Jan 05, 2018 09:02
[2018-01-05] MEDS: DIGOXIN SOLUTION 0.125 MG/2.5 ML CUP PO SCH (09:03)
[2018-01-05] MEDS: RIVAROXABAN 10 MG TAB PO SCH (14:00)
--- NOTE | 2018-01-05 15:39 | HHI.PR ---
Subjective Remarks Patient resting in bed he stated he feels generally better than when he was first admitted Objective Vitals Vital Signs Date Time Temp Pulse Resp B/P (MAP) Pulse Ox O2 Delivery O2 Flow Rate FiO2 01/05/18 11:31 97.6 72 20 127/72 (90) 100 01/05/18 07:43 97.3 77 21 142/80 (100) 90 01/05/18 07:40 97 Nasal Cannula 2.00 01/05/18 05:39 98 30 01/05/18 04:00 97.8 69 17 168/84 (112) 99 01/05/18 03:27 98 30 01/05/18 00:00 97.4 80 21 149/76 (100) 96 01/04/18 23:40 98 30 01/04/18 22:50 Room Air 01/04/18 20:29 99 Nasal Cannula 3.00 01/04/18 20:00 97.5 89 22 183/84 (117) 97 01/04/18 16:00 88 01/04/18 16:00 97.9 88 25 160/70 (100) 98 I/O 01/04/18 01/04/18 01/04/18 01/05/18 01/05/18 01/05/18 07:00 15:00 23:00 07:00 15:00 23:00 Intake Total 100 ml 480 ml Output Total 500 ml 550 ml 450 ml Balance -400 ml -70 ml -450 ml Intake Oral 100 ml 480 ml Output Urine Total 500 ml 550 ml 450 ml # Bowel Movements 0 0 0 Result Diagram: 01/04/18 0421 01/04/18 042 Objective Remarks GENERAL: Well nourished/well developed patient in no apparent distress CARDIOVASCULAR: Regular rate and rhythm without murmurs, gallops or rubs. RESPIRATORY: Bibasilar crackles. GASTROINTESTINAL: Abdomen soft, non-tender, nondistended. Normal active bowel sounds MUSCULOSKELETAL: Extremities without clubbing, cyanosis, but with 1+ pitting edema. NEURO: Alert & Oriented x4 to person, place, time, and situation. Moves all ext x4 Date of Insertion: Dec 23, 2017 Line: Central Venous Catheter Side: Right Location: Femoral A/P Problem List: (1) Acute respiratory failure with hypoxia and hypercapnia ICD Code: J96.01 - Acute respiratory failure with hypoxia; J96.02 - Acute respiratory failure with hypercapnia (2) Osteoporosis ICD Code: M81.0 - Age-related osteoporosis without current pathological fracture (3) Diabetes mellitus ICD Code: E11.9 - Type 2 diabetes mellitus without complications (4) Benign prostatic hyperplasia ICD Code: N40.0 - Benign prostatic hyperplasia without lower urinary tract symptoms (5) BMI 45.0-49.9, adult ICD Code: Z68.42 - Body mass index (BMI) 45.0-49.9, adult (6) History of TIA (transient ischemic attack) ICD Code: Z86.73 - Personal history of transient ischemic attack (TIA), and cerebral infarction without residual deficits (7) Hyperlipidemia ICD Code: E78.5 - Hyperlipidemia, unspecified (8) Chronic venous stasis dermatitis of both lower extremities ICD Code: I87.2 - Venous insufficiency (chronic) (peripheral) (9) Chronic kidney disease, stage 3a ICD Code: N18.3 - Chronic kidney disease, stage 3 (moderate) (10) Anticoagulants taken within 24 hours prior to hospitalization 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 (11) Leukocytosis ICD Code: D72.829 - Elevated white blood cell count, unspecified (12) Hyperpotassemia ICD Code: E87.5 - Hyperkalemia (13) Chronic diastolic heart failure ICD Code: I50.32 - Chronic diastolic (congestive) heart failure (14) Pulmonary hypertension ICD Code: I27.2 - Other secondary pulmonary hypertension Status: Acute (15) Secondary hyperparathyroidism ICD Code: N25.81 - Secondary hyperparathyroidism of renal origin (16) Sleep apnea ICD Code: G47.30 - Sleep apnea, unspecified Status: Chronic (17) COPD exacerbation ICD Code: J44.1 - Chronic obstructive pulmonary disease with (acute) exacerbation Status: Resolved (18) Chronic diastolic (congestive) heart failure ICD Code: I50.32 - Chronic diastolic (congestive) heart failure Status: Chronic Assessment and Plan 62 year old male with h/o AFIB, diastolic CHF, COPD, DENIS, HTN, CKD III , and DM admitted 12/23 for CHF exacerbation after presenting with acute onset SOB at his nursing facility, [facility]. He was emergently intubated in the ED for hypoxic hypercapnic respiratory failure. CXR demonstrated cardiomegaly and pulmonary vascular congestion. He was treated with IV diuresis as well as broad-spectrum antibiotics including Azithromycin, Zosyn, and Vancomycin for coverage of sepsis with possible healthcare associated PNA. He was extubated on 01/01 and care was assumed by [facility] on 01/03. : Continue IV diuresis seen, follow BMP and BNP and electrolytes, patient counseled about no salt diet, in general he feels better than when he first was admitted 1. Acute on chronic respiratory failure - Acute component resolved s/p intubation 12/23-01/01 - Supplemental O2 - DuoNeb Q4H - Prednisone 40 mg PO 2. CHF exacerbation - Acute component resolved - Echo on 12/24 revealed EF 55%, LVH, and peak pulmonary pressure 57 mmHg - Lasix 40 mg PO - Continuing home metoprolol and Digoxin 3. Sepsis - Resolved - Patient met sepsis criteria on admission with HR>90, WBC >12K, and possible PNA as suspected source - Treated with Azithromycin, Vancomycin, and Zosyn 12/23-12/30 - Has remained afebrile with no leukocytosis - Blood, urine, and sputum cultures negative - Negative urine legionella and pneumococcal - Negative influenza 4. Acute on chronic renal insufficiency (CKD III at baseline) - Creatinine 1.58 on admission down to 0.88 - Acute component resolved - Monitor creatinine - Avoid nephrotoxic agents - Continue home Phoslo 5. DENIS/obesity hypoventilation syndrome with pulmonary HTN - Continue BiPAP at night - Patient supposed to be on CPAP at home but has never received his machine - Will need outpatient PFTs and possibly another sleep study - Pulm consulted, appreciate reccs 6. Atrial fibrillation - Rate-controlled - Continuing home Cardizem and Xarelto 7. O2-dependent COPD - Continue home Pulmicort - DuoNeb Q4H - Supplemental O2 PRN 8. DM - SSI per protocol 9. HTN - BPs have been elevated - Increase metoprolol to 100 mg Q12 10. HLD - Resume home statin 11. Weakness, deconditioning - PT recommending long-term nursing - OOB with assistance DVT prophylaxis: on Xarelto Problem Qualifiers (1) Osteoporosis: Qualified Codes: M81.0 - Age-related osteoporosis without current pathological fracture (2) Diabetes mellitus: Qualified Codes: E11.8 - Type 2 diabetes mellitus with unspecified complications (3) Benign prostatic hyperplasia: Qualified Codes: N40.0 - Benign prostatic hyperplasia without lower urinary tract symptoms (4) Hyperlipidemia: Qualified Codes: E78.5 - Hyperlipidemia, unspecified (5) Leukocytosis: Qualified Codes: D72.829 - Elevated white blood cell count, unspecified (6) Sleep apnea: Qualified Codes: G47.30 - Sleep apnea, unspecified Johnny Up MD Jan 05, 2018 15:39
[2018-01-05] MEDS: ATORVASTATIN 40 MG TAB PO SCH (21:31)
[2018-01-06] VITALS (8 sets, daily range): BP systolic 133–144; BP diastolic 70–95; PULSE 57–85; RESP 19–22; TEMP 97.5–98.7; O2SAT 95–99
[2018-01-06] MEDS: CHLORHEXIDINE GLUCONATE 2 % 1 PACK (2 CLOTHS) TOP SCH (04:00)
[2018-01-06] MEDS: INSULIN NovoLIN REGULAR SUPPLEMENTAL SCALE SQ SCH ×6 (04:00→20:00)
[2018-01-06] MEDS: DILTIAZEM HCL 60 MG TAB PO SCH ×4 (04:12→21:58)
[2018-01-06] MEDS: CHLORHEXIDINE 0.12% (ORAL KIT) 15 ML CUP MT SCH ×2 (08:00→20:00)
[2018-01-06] MEDS: ARTIFICIAL TEARS OPTH SOLN 15 ML BTL EACH EYE SCH ×3 (08:16→17:15)
[2018-01-06] MEDS: METOPROLOL TARTRATE 100 MG TAB PO SCH ×2 (08:23→21:59)
[2018-01-06] MEDS: FERROUS SULFATE 325 MG (65 MG ELEMENTAL IRON) TAB PO SCH ×2 (08:23→21:59)
[2018-01-06] MEDS: RIVAROXABAN 10 MG TAB PO SCH (08:23)
[2018-01-06] MEDS: predniSONE 20 MG TAB PO SCH (08:23)
[2018-01-06] MEDS: LANSOPRAZOLE SOLUTAB 30 MG TAB G-TUBE SCH (08:23)
[2018-01-06] MEDS: FUROSEMIDE 40 MG TAB PO SCH (08:23)
[2018-01-06] MEDS: DIGOXIN SOLUTION 0.125 MG/2.5 ML CUP PO SCH (08:23)
[2018-01-06] MEDS: DOCUSATE SODIUM 50 MG/SENNA 8.6 MG TAB PO SCH ×2 (08:23→21:59)
[2018-01-06] MEDS: CALCIUM ACETATE 667 MG CAP PO SCH ×3 (08:24→17:16)
[2018-01-06] MEDS: SODIUM CHLORIDE 0.9% FLUSH 10 ML FLUSH IV FLUSH SCH ×2 (09:00→21:59)
[2018-01-06] MEDS: RESP: BUDESONIDE 0.5 MG/2 ML NEB NEB SCH ×2 (09:26→20:31)
[2018-01-06] MEDS ORDERED: PROT40TA PO (12:01)
[2018-01-06] MEDS ORDERED: PRED10PA PO (12:01)
[2018-01-06] MEDS ORDERED: METO100T PO (12:01)
--- NOTE | 2018-01-06 12:01 | HHI.DS ---
Discharge Summary Admission Date Dec 23, 2017 at 14:33 Discharge Date: Jan 06, 2018 Admitting Diagnosis Respiratory failure. Acute exacerbation CHF. (1) Acute respiratory failure with hypoxia and hypercapnia ICD Code: J96.01 - Acute respiratory failure with hypoxia; J96.02 - Acute respiratory failure with hypercapnia Diagnosis: Principal (2) Osteoporosis ICD Code: M81.0 - Age-related osteoporosis without current pathological fracture Diagnosis: Secondary (3) Diabetes mellitus ICD Code: E11.9 - Type 2 diabetes mellitus without complications Diagnosis: Principal (4) Benign prostatic hyperplasia ICD Code: N40.0 - Benign prostatic hyperplasia without lower urinary tract symptoms Diagnosis: Secondary (5) BMI 45.0-49.9, adult ICD Code: Z68.42 - Body mass index (BMI) 45.0-49.9, adult Diagnosis: Principal (6) History of TIA (transient ischemic attack) ICD Code: Z86.73 - Personal history of transient ischemic attack (TIA), and cerebral infarction without residual deficits Diagnosis: Secondary (7) Hyperlipidemia ICD Code: E78.5 - Hyperlipidemia, unspecified Diagnosis: Secondary (8) Chronic venous stasis dermatitis of both lower extremities ICD Code: I87.2 - Venous insufficiency (chronic) (peripheral) Diagnosis: Secondary (9) Chronic kidney disease, stage 3a ICD Code: N18.3 - Chronic kidney disease, stage 3 (moderate) Diagnosis: Secondary (10) Anticoagulants taken within 24 hours prior to hospitalization ICD Code: Z79.01 - care home (current) use of anticoagulants Diagnosis: Secondary (11) Leukocytosis ICD Code: D72.829 - Elevated white blood cell count, unspecified Diagnosis: Principal (12) Hyperpotassemia ICD Code: E87.5 - Hyperkalemia Diagnosis: Principal (13) Chronic diastolic heart failure ICD Code: I50.32 - Chronic diastolic (congestive) heart failure Diagnosis: Principal (14) Pulmonary hypertension ICD Code: I27.2 - Other secondary pulmonary hypertension Diagnosis: Secondary Status: Acute (15) Secondary hyperparathyroidism ICD Code: N25.81 - Secondary hyperparathyroidism of renal origin Diagnosis: Principal (16) Sleep apnea ICD Code: G47.30 - Sleep apnea, unspecified Diagnosis: Secondary Status: Chronic (17) COPD exacerbation ICD Code: J44.1 - Chronic obstructive pulmonary disease with (acute) exacerbation Diagnosis: Principal Status: Resolved (18) Chronic diastolic (congestive) heart failure ICD Code: I50.32 - Chronic diastolic (congestive) heart failure Diagnosis: Principal Status: Chronic Procedures Intubation and extubation Brief History - From Admission HPI from the admitting physician This is a 62-year-old male. Date of admission 12/23/2017. Past medical history includes atrial fibrillation on chronic rivaroxaban use, chronic diastolic heart failure ejection fraction 55%, COPD, obstructive sleep apnea on CPAP nocturnally, history of 3 times daily, chronic lipidemia/venous stasis, hypertension, chronic kidney disease stage IIIa, diabetes mellitus and chronic low back pain. Patient is a resident of [facility] who presented here to [facility] with acute onset of shortness of breath this a.m. at his nursing facility. He is brought to the emergency department for evaluation.F. According to Dr. Jameson, patient was tachypneic and becoming more uncomfortable and experienced hypoxic hypercapnic respiratory failure in the ED. Patient was intubated using glide scope. Furosemide 40 mg IV. Patient was noted to be hyperkalemic with potassium 5.7. D50 50 mL IV given. Novolin R 8 units IV given along with 1 ampule of D50. Calcium gluconate 1 g IV given. Repeat potassium pending. Patient became hypotensive propofol drip currently on midazolam and fentanyl drips for sedation while intubated. Initial blood gas reveals significant respiratory acidosis. We are asked to admit the patient. CBC/BMP: 01/04/18 0421 01/04/18 0421 Significant Findings Laboratory Tests Test 01/04/18 04:21 Red Blood Count 3.75 MIL/MM3 (4.50-5.90) Hemoglobin 9.6 GM/DL (13.0-17.0) Hematocrit 30.9 % (39.0-51.0) Mean Corpuscular Hemoglobin 25.7 PG (27.0-34.0) Mean Corpuscular Hemoglobin Concent 31.2 % (32.0-36.0) Red Cell Distribution Width 18.7 % (11.6-17.2) Neutrophils (%) (Auto) 92.0 % (16.0-70.0) Lymphocytes (%) (Auto) 3.4 % (9.0-44.0) Lymphocytes # (Auto) 0.3 TH/MM3 (1.0-4.8) Blood Urea Nitrogen 41 MG/DL (7-18) Random Glucose 151 MG/DL (74-106) Estimat Glomerular Filtration Rate 87 ML/MIN (>89) Imaging Last Impressions Chest X-Ray 01/03/18 0000 Signed Impressions: Service Date/Time: Wednesday, January 03, 2018 13:39 - CONCLUSION: 1. Improving but persistent bibasilar airspace disease/infiltrates. Stable cardiomegaly 2. Interval removal of the endotracheal and nasogastric tube seen previously Brian Beebe MD Abdomen X-Ray 12/27/17 0000 Signed Impressions: Service Date/Time: Wednesday, December 27, 2017 14:24 - CONCLUSION: Contrast in the distal colon. Renny Hinojosa MD Lower Extremity Ultrasound 12/23/17 0000 Signed Impressions: Service Date/Time: Saturday, December 23, 2017 16:46 - CONCLUSION: 1. Negative for deep venous thrombosis in the lower extremities. Mannie Croft MD PE at Discharge GENERAL: Obese male in no apparent distress CARDIOVASCULAR: Regular rate and rhythm without murmurs, gallops or rubs. RESPIRATORY: Bibasilar crackles. GASTROINTESTINAL: Abdomen soft, non-tender, nondistended. Normal active bowel sounds MUSCULOSKELETAL: Extremities without clubbing, cyanosis, no edema. NEURO: Alert & Oriented x4 to person, place, time, and situation. Moves all ext x4 Pt update on day of discharge Patient reports he is feeling better. Breathing comfortably. Still with generalized weakness. Hospital Course 62 year old male with h/o AFIB, diastolic CHF, COPD, DENIS, HTN, CKD III , and DM admitted 12/23 for CHF exacerbation after presenting with acute onset SOB at his nursing facility, [facility]. He was emergently intubated in the ED for hypoxic hypercapnic respiratory failure. CXR demonstrated cardiomegaly and pulmonary vascular congestion. He was treated with IV diuresis as well as broad-spectrum antibiotics including Azithromycin, Zosyn, and Vancomycin for coverage of sepsis with possible healthcare associated PNA. He was extubated on 01/01 and care was assumed by [facility] on 01/03. Treatment course detailed below: 1. Acute on chronic respiratory failure - Acute component resolved s/p intubation 12/23-01/01 - Supplemental O2 - DuoNeb Q4H - Prednisone taper. 2. CHF exacerbation, acute on chronic systolic. - Acute component resolved - Echo on 12/24 revealed EF 55%, LVH, and peak pulmonary pressure 57 mmHg -Resume oral diuretics. - Continuing home metoprolol and Digoxin 3. Sepsis - Resolved - Patient met sepsis criteria on admission with HR>90, WBC >12K, and possible PNA as suspected source - Treated with Azithromycin, Vancomycin, and Zosyn 12/23-12/30 - Has remained afebrile with no leukocytosis - Blood, urine, and sputum cultures negative - Negative urine legionella and pneumococcal - Negative influenza 4. Acute on chronic renal insufficiency (CKD III at baseline) - Creatinine 1.58 on admission down to 0.88 - Acute component resolved - Monitor creatinine - Avoid nephrotoxic agents - Continue home Phoslo 5. DENIS/obesity hypoventilation syndrome with pulmonary HTN - Continue BiPAP at night - Patient supposed to be on CPAP at home but has never received his machine - Will need outpatient PFTs and possibly another sleep study - Pulm consulted, appreciate reccs. Discussed with RN to ensure the patient will have CPAP machine at the intermediate facility prior to discharge. 6. Atrial fibrillation - Rate-controlled - Continuing home Cardizem and Xarelto 7. O2-dependent COPD - Continue home Pulmicort - DuoNeb Q4H - Supplemental O2 PRN 8. DM - SSI per protocol 9. HTN -Continue antihypertensives 10. HLD - Resume home statin 11. Weakness, deconditioning -Patient to continue physical therapy at SNF. - OOB with assistance Pt Condition on Discharge: Good Discharge Disposition: Discharge to SNF Discharge Time: > 30 minutes Discharge Instructions DIET: Follow Instructions for: Heart Healthy Diet, Diabetic Diet Activities you can perform: Regular-No Restrictions Follow up Referrals: Pulmonology - 1 Week with Yordan Farr MD New Medications: Pantoprazole (Protonix) 40 Mg Tab 40 MG PO DAILY for Reflux, #30 TAB 0 Refills Prednisone (21) 10 mg tab Dose Pack (Prednisone (21) 10 mg tab Dose Pack) 10 Mg Pack 10 MG PO DIRECTED for Inflammation, #1 DSPK 0 Refills Changed Medications: Metoprolol Tartrate (Metoprolol Tartrate) 100 Mg Tab 100 MG PO BID, #60 TAB 0 Refills (Changed from: Metoprolol Tartrate 25 Mg Tab 75 Mg PO Q8HR heart 30 Days TAB) Continued Medications: Acetazolamide (Acetazolamide) 125 Mg Tab 125 MG PO BID for fluid overload for 30 Days, #60 TAB 0 Refills Albuterol 18 GM Inh (Ventolin Hfa 18 GM Inh) 90 Mcg/Act Aer 1 PUFF INH Q4H PRN for SHORTNESS OF BREATH, #1 INHALER 3 Refills Atorvastatin (Atorvastatin) 40 Mg Tab 40 MG PO HS for Cholesterol Management, #30 TAB 0 Refills Budesonide-Formoterol Inh (Symbicort Inh) 160-4.5 Mcg/Act Aero 2 PUFF INH Q12HR for Breathing Treatment, #1 INHALER 3 Refills Bumetanide (Bumetanide) 1 Mg Tab 1 MG PO DAILY, #30 TAB 0 Refills Calcium Acetate (Phosphate Bin (Calcium Acetate) 667 Mg Cap 667 MG PO TID for high phosphorous for 30 Days, CAP Digoxin (Digoxin) 0.125 Mg Tab 0.125 MG PO DAILY for afib, #30 TAB Diltiazem CD 24 HR (Diltiazem CD 24 HR) 240 Mg Caper 240 MG PO DAILY for heart for 30 Days, #30 CAP Ferrous Sulfate ER (Ferrous Sulfate ER) 140 Mg (45 Mg Iron) Tab 140 MG PO BID for Nutritional Supplement, #30 TAB 0 Refills Ipratropium HFA 12.9 GM Inh (Atrovent HFA 12.9 GM Inh) 17 Mcg/Act Aer 2 PUFF INH Q6HR PRN for SHORTNESS OF BREATH, #1 INHALER 3 Refills Magnesium Hydroxide Liq (Milk of Magnesia Liq) 400 Mg/5 Ml Susp 30 ML PO HS PRN for CONSTIPATION, #1 BOTTLE 0 Refills Polysaccharide Iron Complex (Poly-Iron 150) 150 Mg Iron Cap 150 MG PO DAILY for Nutritional Supplement, #30 CAP 0 Refills Potassium Chloride ER (Klor-Con 8) 8 Meq Tab 8 MEQ PO DAILY for CHF for 30 Days, #30 TAB Rivaroxaban (Xarelto) 10 Mg Tab 10 MG PO HS for Blood Clot Prevention, TAB 0 Refills Torsemide (Demadex) 20 Mg Tab 40 MG PO DAILY for water pill for 30 Days, #60 TAB [Nystatin Powder] () Discontinued Medications: Ampicillin (Ampicillin Trihydrate) 500 Mg Capsule 500 MG PO Q8HR for Infection, #21 TAB-CAP Bre Bourgeois MD Jan 06, 2018 12:01
--- NOTE | 2018-01-06 19:23 | HHI.PR ---
Subjective Remarks ALERT NO SOB AT REST Objective Vital Signs Date Time Temp Pulse Resp B/P (MAP) Pulse Ox O2 Delivery O2 Flow Rate FiO2 01/06/18 16:33 98.7 77 20 135/70 (91) 99 01/06/18 12:08 98.1 57 20 133/95 (108) 98 01/06/18 09:28 95 Nasal Cannula 2.00 01/06/18 08:05 97.7 69 20 134/82 (99) 99 01/06/18 04:00 98.2 75 19 136/77 (96) 98 01/06/18 00:00 98.2 77 22 144/84 (104) 98 01/05/18 22:56 Room Air 01/05/18 20:52 99 Nasal Cannula 2.00 01/05/18 20:00 98.4 74 22 136/79 (98) 99 I/O 01/05/18 01/05/18 01/05/18 01/06/18 01/06/18 01/06/18 07:00 15:00 23:00 07:00 15:00 23:00 Intake Total 720 ml 720 ml Output Total 450 ml 2140 ml 450 ml 525 ml Balance -450 ml -1420 ml -450 ml -525 ml 720 ml Intake Oral 720 ml 720 ml Output Urine Total 450 ml 2140 ml 450 ml 525 ml # Bowel Movements 0 0 0 1 Result Diagram: 01/04/1842001/04/18420 Objective Remarks GENERAL: SKIN: Warm and dry. HEAD: Atraumatic. Normocephalic. EYES: Pupils equal and round. No scleral icterus. No injection or drainage. ENT: No nasal bleeding or discharge. Mucous membranes pink and moist. NECK: Trachea midline. No JVD. CARDIOVASCULAR: Regular rate and rhythm. RESPIRATORY: No accessory muscle use. Clear to auscultation. Breath sounds equal bilaterally. GASTROINTESTINAL: Abdomen soft, non-tender, nondistended. Hepatic and splenic margins not palpable. MUSCULOSKELETAL: Extremities without clubbing, cyanosis,4+ edema. No obvious deformities. NEUROLOGICAL: Awake and alert. No obvious cranial nerve deficits. Motor grossly within normal limits. Five out of 5 muscle strength in the arms and legs. Normal speech. PSYCHIATRIC: Appropriate mood and affect; insight and judgment normal. Assessment and Plan Assessment and Plan IMPRESSION RESPIRATORY FAILURE COPD MORBID OBESITY PLAN O2 / BIPAP NEEDED BRONCHODILATOR THERAPY [facility] will arrange for PAP therapy upon D/C Yordan Farr MD Jan 06, 2018 19:23
[2018-01-06] MEDS: ATORVASTATIN 40 MG TAB PO SCH (21:58)
[2018-01-06] MEDS: ACETAMINOPHEN/HYDROcodone 325 MG/5 MG TAB PO PRN (22:12)
[2018-01-07] VITALS (9 sets, daily range): BP systolic 110–163; BP diastolic 57–79; PULSE 64–83; RESP 14–20; TEMP 97.4–98.2; O2SAT 97–100
[2018-01-07] MEDS: INSULIN NovoLIN REGULAR SUPPLEMENTAL SCALE SQ SCH ×6 (04:00→21:37)
[2018-01-07] MEDS: CHLORHEXIDINE GLUCONATE 2 % 1 PACK (2 CLOTHS) TOP SCH (04:00)
[2018-01-07] MEDS: DILTIAZEM HCL 60 MG TAB PO SCH ×4 (04:13→21:34)
[2018-01-07] MEDS: RESP: BUDESONIDE 0.5 MG/2 ML NEB NEB SCH ×2 (07:57→20:51)
[2018-01-07] MEDS: CHLORHEXIDINE 0.12% (ORAL KIT) 15 ML CUP MT SCH ×2 (08:00→20:00)
[2018-01-07] MEDS: predniSONE 20 MG TAB PO SCH (08:56)
[2018-01-07] MEDS: RIVAROXABAN 10 MG TAB PO SCH (08:56)
[2018-01-07] MEDS: LANSOPRAZOLE SOLUTAB 30 MG TAB G-TUBE SCH (08:57)
[2018-01-07] MEDS: FUROSEMIDE 40 MG TAB PO SCH (08:57)
[2018-01-07] MEDS: DOCUSATE SODIUM 50 MG/SENNA 8.6 MG TAB PO SCH ×2 (08:57→21:37)
[2018-01-07] MEDS: CALCIUM ACETATE 667 MG CAP PO SCH ×3 (08:57→18:12)
[2018-01-07] MEDS: METOPROLOL TARTRATE 100 MG TAB PO SCH ×2 (08:57→21:34)
[2018-01-07] MEDS: DIGOXIN SOLUTION 0.125 MG/2.5 ML CUP PO SCH (08:57)
[2018-01-07] MEDS: FERROUS SULFATE 325 MG (65 MG ELEMENTAL IRON) TAB PO SCH ×2 (08:57→21:36)
--- NOTE | 2018-01-07 08:57 | HHI.PR ---
Subjective Remarks ALERT NO SOB AT REST Objective Vital Signs Date Time Temp Pulse Resp B/P (MAP) Pulse Ox O2 Delivery O2 Flow Rate FiO2 01/07/18 07:57 99 Nasal Cannula 3.00 01/07/18 07:56 97.4 64 20 123/73 (90) 100 01/07/18 04:48 98.0 67 20 140/79 (99) 97 01/07/18 02:32 97 Nasal Cannula 2.00 01/07/18 00:51 97.8 71 20 139/79 (99) 100 01/06/18 22:47 Room Air 01/06/18 20:42 97.5 85 20 143/73 (96) 99 01/06/18 20:32 96 Nasal Cannula 2.00 01/06/18 16:33 98.7 77 20 135/70 (91) 99 01/06/18 12:08 98.1 57 20 133/95 (108) 98 01/06/18 09:28 95 Nasal Cannula 2.00 I/O 01/06/18 01/06/18 01/06/18 01/07/18 01/07/18 01/07/18 07:00 15:00 23:00 07:00 15:00 23:00 Intake Total 720 ml Output Total 450 ml 525 ml 400 ml 800 ml Balance -450 ml -525 ml 320 ml -800 ml Intake Oral 720 ml Output Urine Total 450 ml 525 ml 400 ml 800 ml # Bowel Movements 0 1 Result Diagram: 01/04/18 04201/04/18420 Objective Remarks GENERAL: SKIN: Warm and dry. HEAD: Atraumatic. Normocephalic. EYES: Pupils equal and round. No scleral icterus. No injection or drainage. ENT: No nasal bleeding or discharge. Mucous membranes pink and moist. NECK: Trachea midline. No JVD. CARDIOVASCULAR: Regular rate and rhythm. RESPIRATORY: No accessory muscle use. Clear to auscultation. Breath sounds equal bilaterally. GASTROINTESTINAL: Abdomen soft, non-tender, nondistended. Hepatic and splenic margins not palpable. MUSCULOSKELETAL: Extremities without clubbing, cyanosis,4+ edema. No obvious deformities. NEUROLOGICAL: Awake and alert. No obvious cranial nerve deficits. Motor grossly within normal limits. Five out of 5 muscle strength in the arms and legs. Normal speech. PSYCHIATRIC: Appropriate mood and affect; insight and judgment normal. Assessment and Plan Assessment and Plan IMPRESSION RESPIRATORY FAILURE COPD MORBID OBESITY PLAN O2 / BIPAP NEEDED BRONCHODILATOR THERAPY [facility] will arrange for PAP therapy upon D/C Yordan aFrr MD Jan 07, 2018 08:57
[2018-01-07] MEDS: ARTIFICIAL TEARS OPTH SOLN 15 ML BTL EACH EYE SCH ×3 (09:00→18:16)
[2018-01-07] MEDS: SODIUM CHLORIDE 0.9% FLUSH 10 ML FLUSH IV FLUSH SCH ×2 (12:16→21:35)
--- NOTE | 2018-01-07 15:46 | HHI.PR ---
Subjective Remarks Patient reports he is feeling well. Denies shortness of breath or chest pain. Did not require BiPAP last night. States he will follow-up with Dr. Bertrand by regarding sleep study and CPAP outpatient. Objective Vitals Vital Signs Date Time Temp Pulse Resp B/P (MAP) Pulse Ox O2 Delivery O2 Flow Rate FiO2 01/07/18 15:28 98.2 68 20 119/57 (77) 100 01/07/18 11:23 97.6 65 20 110/63 (79) 97 01/07/18 08:55 Nasal Cannula 2.00 01/07/18 07:57 99 Nasal Cannula 3.00 01/07/18 07:56 97.4 64 20 123/73 (90) 100 01/07/18 04:48 98.0 67 20 140/79 (99) 97 01/07/18 02:32 97 Nasal Cannula 2.00 01/07/18 00:51 97.8 71 20 139/79 (99) 100 01/06/18 22:47 Room Air 01/06/18 20:42 97.5 85 20 143/73 (96) 99 01/06/18 20:32 96 Nasal Cannula 2.00 01/06/18 16:33 98.7 77 20 135/70 (91) 99 I/O 01/06/18 01/06/18 01/06/18 01/07/18 01/07/18 01/07/18 07:00 15:00 23:00 07:00 15:00 23:00 Intake Total 720 ml 720 ml Output Total 450 ml 525 ml 400 ml 800 ml 675 ml Balance -450 ml -525 ml 320 ml -800 ml -675 ml 720 ml Intake Oral 720 ml 720 ml Output Urine Total 450 ml 525 ml 400 ml 800 ml 675 ml # Bowel Movements 0 1 1 Result Diagram: 01/04/18 0421 01/04/18 0421 Objective Remarks GENERAL: Obese male in no apparent distress CARDIOVASCULAR: Regular rate and rhythm without murmurs, gallops or rubs. RESPIRATORY: Clear to auscultation bilaterally except for diminished breath sounds at the bases. GASTROINTESTINAL: Abdomen soft, non-tender, nondistended. Normal active bowel sounds MUSCULOSKELETAL: Extremities without clubbing, cyanosis, no edema. NEURO: Alert & Oriented x4 to person, place, time, and situation. Moves all ext x4 Procedures Intubation and extubation Date of Insertion: Dec 23, 2017 Line: Central Venous Catheter Side: Right Location: Femoral A/P Problem List: (1) Acute respiratory failure with hypoxia and hypercapnia ICD Code: J96.01 - Acute respiratory failure with hypoxia; J96.02 - Acute respiratory failure with hypercapnia (2) Osteoporosis ICD Code: M81.0 - Age-related osteoporosis without current pathological fracture (3) Diabetes mellitus ICD Code: E11.9 - Type 2 diabetes mellitus without complications (4) Benign prostatic hyperplasia ICD Code: N40.0 - Benign prostatic hyperplasia without lower urinary tract symptoms (5) BMI 45.0-49.9, adult ICD Code: Z68.42 - Body mass index (BMI) 45.0-49.9, adult (6) History of TIA (transient ischemic attack) ICD Code: Z86.73 - Personal history of transient ischemic attack (TIA), and cerebral infarction without residual deficits (7) Hyperlipidemia ICD Code: E78.5 - Hyperlipidemia, unspecified (8) Chronic venous stasis dermatitis of both lower extremities ICD Code: I87.2 - Venous insufficiency (chronic) (peripheral) (9) Chronic kidney disease, stage 3a ICD Code: N18.3 - Chronic kidney disease, stage 3 (moderate) (10) Anticoagulants taken within 24 hours prior to hospitalization ICD Code: Z79.01 - detention (current) use of anticoagulants (11) Leukocytosis ICD Code: D72.829 - Elevated white blood cell count, unspecified (12) Hyperpotassemia ICD Code: E87.5 - Hyperkalemia (13) Chronic diastolic heart failure ICD Code: I50.32 - Chronic diastolic (congestive) heart failure (14) Pulmonary hypertension ICD Code: I27.2 - Other secondary pulmonary hypertension Status: Acute (15) Secondary hyperparathyroidism ICD Code: N25.81 - Secondary hyperparathyroidism of renal origin (16) Sleep apnea ICD Code: G47.30 - Sleep apnea, unspecified Status: Chronic (17) COPD exacerbation ICD Code: J44.1 - Chronic obstructive pulmonary disease with (acute) exacerbation Status: Resolved (18) Chronic diastolic (congestive) heart failure ICD Code: I50.32 - Chronic diastolic (congestive) heart failure Status: Chronic Assessment and Plan 62 year old male with h/o AFIB, diastolic CHF, COPD, DENIS, HTN, CKD III , and DM admitted 12/23 for CHF exacerbation after presenting with acute onset SOB at his nursing facility, [facility]. He was emergently intubated in the ED for hypoxic hypercapnic respiratory failure. CXR demonstrated cardiomegaly and pulmonary vascular congestion. He was treated with IV diuresis as well as broad-spectrum antibiotics including Azithromycin, Zosyn, and Vancomycin for coverage of sepsis with possible healthcare associated PNA. He was extubated on 01/01 and care was assumed by [facility] on 01/03. Treatment course detailed below: 1. Acute on chronic respiratory failure - Acute component resolved s/p intubation 12/23-01/01 - Supplemental O2 - DuoNeb Q4H - Prednisone taper. 2. CHF exacerbation, acute on chronic systolic. - Acute component resolved - Echo on 12/24 revealed EF 55%, LVH, and peak pulmonary pressure 57 mmHg -Resume oral diuretics. - Continuing home metoprolol and Digoxin 3. Sepsis - Resolved - Patient met sepsis criteria on admission with HR>90, WBC >12K, and possible PNA as suspected source - Treated with Azithromycin, Vancomycin, and Zosyn 12/23-12/30 - Has remained afebrile with no leukocytosis - Blood, urine, and sputum cultures negative - Negative urine legionella and pneumococcal - Negative influenza 4. Acute on chronic renal insufficiency (CKD III at baseline) - Creatinine 1.58 on admission down to 0.88 - Acute component resolved - Monitor creatinine - Avoid nephrotoxic agents - Continue home Phoslo 5. DENIS/obesity hypoventilation syndrome with pulmonary HTN -No longer required BiPAP at night. -Appreciate pulmonology following. Patient will follow up with Dr. Vicente outpatient for sleep study and possible CPAP machine. 6. Atrial fibrillation - Rate-controlled - Continuing home Cardizem and Xarelto 7. O2-dependent COPD - Continue home Pulmicort - DuoNeb Q4H - Supplemental O2 PRN 8. DM - SSI per protocol 9. HTN -Continue antihypertensives 10. HLD - Resume home statin 11. Weakness, deconditioning -Patient to continue physical therapy at SNF. - OOB with assistance Discharge Planning Okay to discharge to SNF today. Problem Qualifiers (1) Osteoporosis: Qualified Codes: M81.0 - Age-related osteoporosis without current pathological fracture (2) Diabetes mellitus: Qualified Codes: E11.8 - Type 2 diabetes mellitus with unspecified complications (3) Benign prostatic hyperplasia: Qualified Codes: N40.0 - Benign prostatic hyperplasia without lower urinary tract symptoms (4) Hyperlipidemia: Qualified Codes: E78.5 - Hyperlipidemia, unspecified (5) Leukocytosis: Qualified Codes: D72.829 - Elevated white blood cell count, unspecified (6) Sleep apnea: Qualified Codes: G47.30 - Sleep apnea, unspecified Bre Bourgeois MD Jan 07, 2018 15:46
[2018-01-07] MEDS: ATORVASTATIN 40 MG TAB PO SCH (21:44)
[2018-01-08] VITALS (7 sets, daily range): BP systolic 107–160; BP diastolic 53–79; PULSE 68–82; RESP 14–18; TEMP 97.5–98.9; O2SAT 95–99
[2018-01-08] MEDS: DILTIAZEM HCL 60 MG TAB PO SCH ×4 (03:07→21:20)
[2018-01-08] MEDS: CHLORHEXIDINE GLUCONATE 2 % 1 PACK (2 CLOTHS) TOP SCH ×2 (04:00→21:21)
[2018-01-08] MEDS: INSULIN NovoLIN REGULAR SUPPLEMENTAL SCALE SQ SCH ×6 (04:00→20:00)
[2018-01-08] MEDS: RESP: BUDESONIDE 0.5 MG/2 ML NEB NEB SCH ×2 (07:27→19:40)
[2018-01-08] MEDS: CHLORHEXIDINE 0.12% (ORAL KIT) 15 ML CUP MT SCH ×2 (08:00→20:00)
[2018-01-08] MEDS: SODIUM CHLORIDE 0.9% FLUSH 10 ML FLUSH IV FLUSH SCH ×2 (09:00→21:21)
[2018-01-08] MEDS: predniSONE 20 MG TAB PO SCH (09:13)
[2018-01-08] MEDS: DOCUSATE SODIUM 50 MG/SENNA 8.6 MG TAB PO SCH ×2 (09:13→21:20)
[2018-01-08] MEDS: RIVAROXABAN 10 MG TAB PO SCH (09:14)
[2018-01-08] MEDS: DIGOXIN SOLUTION 0.125 MG/2.5 ML CUP PO SCH (09:16)
[2018-01-08] MEDS: FERROUS SULFATE 325 MG (65 MG ELEMENTAL IRON) TAB PO SCH ×2 (09:16→21:20)
[2018-01-08] MEDS: FUROSEMIDE 40 MG TAB PO SCH (09:16)
[2018-01-08] MEDS: ARTIFICIAL TEARS OPTH SOLN 15 ML BTL EACH EYE SCH ×3 (09:16→18:21)
[2018-01-08] MEDS: CALCIUM ACETATE 667 MG CAP PO SCH ×3 (09:16→18:21)
[2018-01-08] MEDS: METOPROLOL TARTRATE 100 MG TAB PO SCH ×2 (09:16→21:20)
[2018-01-08] MEDS: LANSOPRAZOLE SOLUTAB 30 MG TAB G-TUBE SCH (09:17)
--- NOTE | 2018-01-08 12:41 | HHI.PR ---
Subjective Remarks Patient reports he is feeling okay. Awaiting insurance authorization for SNF placement. He was working with physical therapy. Objective Vitals Vital Signs Date Time Temp Pulse Resp B/P (MAP) Pulse Ox O2 Delivery O2 Flow Rate FiO2 01/08/18 09:15 Nasal Cannula 2.00 01/08/18 08:00 98.2 73 18 107/53 (71) 99 01/08/18 07:27 98 Nasal Cannula 2.00 01/08/18 00:00 97.6 82 14 160/68 (98) 99 01/07/18 22:50 97.4 83 14 163/65 (97) 98 01/07/18 20:52 98 Nasal Cannula 2.00 01/07/18 19:05 Nasal Cannula 2.00 01/07/18 15:28 98.2 68 20 119/57 (77) 100 I/O 01/07/18 01/07/18 01/07/18 01/08/18 01/08/18 01/08/18 07:00 15:00 23:00 07:00 15:00 23:00 Intake Total 720 ml Output Total 800 ml 675 ml 600 ml Balance -800 ml -675 ml 720 ml -600 ml Intake Oral 720 ml Output Urine Total 800 ml 675 ml 600 ml # Bowel Movements 1 Result Diagram: 01/04/18 04201/04/18 042 Objective Remarks GENERAL: Obese male in no apparent distress CARDIOVASCULAR: Regular rate and rhythm without murmurs, gallops or rubs. RESPIRATORY: Clear to auscultation bilaterally except for diminished breath sounds at the bases. GASTROINTESTINAL: Abdomen soft, non-tender, nondistended. Normal active bowel sounds MUSCULOSKELETAL: Extremities without clubbing, cyanosis, no edema. NEURO: Alert & Oriented x4 to person, place, time, and situation. Moves all ext x4 Procedures Intubation and extubation Date of Insertion: Dec 23, 2017 Line: Central Venous Catheter Side: Right Location: Femoral A/P Problem List: (1) Acute respiratory failure with hypoxia and hypercapnia ICD Code: J96.01 - Acute respiratory failure with hypoxia; J96.02 - Acute respiratory failure with hypercapnia (2) Osteoporosis ICD Code: M81.0 - Age-related osteoporosis without current pathological fracture (3) Diabetes mellitus ICD Code: E11.9 - Type 2 diabetes mellitus without complications (4) Benign prostatic hyperplasia ICD Code: N40.0 - Benign prostatic hyperplasia without lower urinary tract symptoms (5) BMI 45.0-49.9, adult ICD Code: Z68.42 - Body mass index (BMI) 45.0-49.9, adult (6) History of TIA (transient ischemic attack) ICD Code: Z86.73 - Personal history of transient ischemic attack (TIA), and cerebral infarction without residual deficits (7) Hyperlipidemia ICD Code: E78.5 - Hyperlipidemia, unspecified (8) Chronic venous stasis dermatitis of both lower extremities ICD Code: I87.2 - Venous insufficiency (chronic) (peripheral) (9) Chronic kidney disease, stage 3a ICD Code: N18.3 - Chronic kidney disease, stage 3 (moderate) (10) Anticoagulants taken within 24 hours prior to hospitalization ICD Code: Z79.01 - [facility] (current) use of anticoagulants (11) Leukocytosis ICD Code: D72.829 - Elevated white blood cell count, unspecified (12) Hyperpotassemia ICD Code: E87.5 - Hyperkalemia (13) Chronic diastolic heart failure ICD Code: I50.32 - Chronic diastolic (congestive) heart failure (14) Pulmonary hypertension ICD Code: I27.2 - Other secondary pulmonary hypertension Status: Acute (15) Secondary hyperparathyroidism ICD Code: N25.81 - Secondary hyperparathyroidism of renal origin (16) Sleep apnea ICD Code: G47.30 - Sleep apnea, unspecified Status: Chronic (17) COPD exacerbation ICD Code: J44.1 - Chronic obstructive pulmonary disease with (acute) exacerbation Status: Resolved (18) Chronic diastolic (congestive) heart failure ICD Code: I50.32 - Chronic diastolic (congestive) heart failure Status: Chronic Assessment and Plan 62 year old male with h/o AFIB, diastolic CHF, COPD, DENIS, HTN, CKD III , and DM admitted 12/23 for CHF exacerbation after presenting with acute onset SOB at his nursing facility, [facility]. He was emergently intubated in the ED for hypoxic hypercapnic respiratory failure. CXR demonstrated cardiomegaly and pulmonary vascular congestion. He was treated with IV diuresis as well as broad-spectrum antibiotics including Azithromycin, Zosyn, and Vancomycin for coverage of sepsis with possible healthcare associated PNA. He was extubated on 01/01 and care was assumed by [facility] on 01/03. Treatment course detailed below: 1. Acute on chronic respiratory failure - Acute component resolved s/p intubation 12/23-01/01 - Supplemental O2 - DuoNeb Q4H - Prednisone taper. 2. CHF exacerbation, acute on chronic systolic. - Acute component resolved - Echo on 12/24 revealed EF 55%, LVH, and peak pulmonary pressure 57 mmHg -Resume oral diuretics. - Continuing home metoprolol and Digoxin 3. Sepsis - Resolved - Patient met sepsis criteria on admission with HR>90, WBC >12K, and possible PNA as suspected source - Treated with Azithromycin, Vancomycin, and Zosyn 12/23-12/30 - Has remained afebrile with no leukocytosis - Blood, urine, and sputum cultures negative - Negative urine legionella and pneumococcal - Negative influenza 4. Acute on chronic renal insufficiency (CKD III at baseline) - Creatinine 1.58 on admission down to 0.88 - Acute component resolved - Monitor creatinine - Avoid nephrotoxic agents - Continue home Phoslo 5. DENIS/obesity hypoventilation syndrome with pulmonary HTN -No longer required BiPAP at night. -Appreciate pulmonology following. Patient will follow up with Dr. Vicente outpatient for sleep study and possible CPAP machine. 6. Atrial fibrillation - Rate-controlled - Continuing home Cardizem and Xarelto 7. O2-dependent COPD - Continue home Pulmicort - DuoNeb Q4H - Supplemental O2 PRN 8. DM - SSI per protocol 9. HTN -Continue antihypertensives 10. HLD - Resume home statin 11. Weakness, deconditioning -Patient to continue physical therapy at SNF. - OOB with assistance Discharge Planning Okay to discharge to SNF once arrangements are made. Problem Qualifiers (1) Osteoporosis: Qualified Codes: M81.0 - Age-related osteoporosis without current pathological fracture (2) Diabetes mellitus: Qualified Codes: E11.8 - Type 2 diabetes mellitus with unspecified complications (3) Benign prostatic hyperplasia: Qualified Codes: N40.0 - Benign prostatic hyperplasia without lower urinary tract symptoms (4) Hyperlipidemia: Qualified Codes: E78.5 - Hyperlipidemia, unspecified (5) Leukocytosis: Qualified Codes: D72.829 - Elevated white blood cell count, unspecified (6) Sleep apnea: Qualified Codes: G47.30 - Sleep apnea, unspecified Bre Bourgeois MD Jan 08, 2018 12:41
--- NOTE | 2018-01-08 15:41 | HHI.PR ---
Subjective Remarks ALERT NO SOB AT REST Objective Vital Signs Date Time Temp Pulse Resp B/P (MAP) Pulse Ox O2 Delivery O2 Flow Rate FiO2 01/08/18 12:00 98.9 68 18 125/65 (85) 95 01/08/18 09:15 Nasal Cannula 2.00 01/08/18 08:00 98.2 73 18 107/53 (71) 99 01/08/18 07:27 98 Nasal Cannula 2.00 01/08/18 00:00 97.6 82 14 160/68 (98) 99 01/07/18 22:50 97.4 83 14 163/65 (97) 98 01/07/18 20:52 98 Nasal Cannula 2.00 01/07/18 19:05 Nasal Cannula 2.00 I/O 01/07/18 01/07/18 01/07/18 01/08/18 01/08/18 01/08/18 07:00 15:00 23:00 07:00 15:00 23:00 Intake Total 720 ml Output Total 800 ml 675 ml 600 ml Balance -800 ml -675 ml 720 ml -600 ml Intake Oral 720 ml Output Urine Total 800 ml 675 ml 600 ml # Bowel Movements 1 Result Diagram: 01/04/18 0421 01/04/18 042 Objective Remarks GENERAL: SKIN: Warm and dry. HEAD: Atraumatic. Normocephalic. EYES: Pupils equal and round. No scleral icterus. No injection or drainage. ENT: No nasal bleeding or discharge. Mucous membranes pink and moist. NECK: Trachea midline. No JVD. CARDIOVASCULAR: Regular rate and rhythm. RESPIRATORY: No accessory muscle use. Clear to auscultation. Breath sounds equal bilaterally. GASTROINTESTINAL: Abdomen soft, non-tender, nondistended. Hepatic and splenic margins not palpable. MUSCULOSKELETAL: Extremities without clubbing, cyanosis,4+ edema. No obvious deformities. NEUROLOGICAL: Awake and alert. No obvious cranial nerve deficits. Motor grossly within normal limits. Five out of 5 muscle strength in the arms and legs. Normal speech. PSYCHIATRIC: Appropriate mood and affect; insight and judgment normal. Assessment and Plan Assessment and Plan IMPRESSION RESPIRATORY FAILURE COPD MORBID OBESITY PLAN O2 / BIPAP NEEDED BRONCHODILATOR THERAPY LOOSE WT INCREASE ACTIVTY will arrange for PAP therapy upon D/C Yordan Farr MD Jan 08, 2018 15:41
[2018-01-08] MEDS: ATORVASTATIN 40 MG TAB PO SCH (21:20)
[2018-01-09 00:19] VITALS: BP 141/77; PULSE 66; RESP 20; TEMP 99.1; O2SAT 99
[2018-01-09 01:31] VITALS: O2SAT 97
[2018-01-09] MEDS: DILTIAZEM HCL 60 MG TAB PO SCH ×2 (02:24→09:07)
[2018-01-09 04:00] VITALS: PULSE 70; RESP 22; TEMP 98.4; O2SAT 100
[2018-01-09] MEDS: INSULIN NovoLIN REGULAR SUPPLEMENTAL SCALE SQ SCH ×4 (04:00→11:54)
[2018-01-09] MEDS: CHLORHEXIDINE 0.12% (ORAL KIT) 15 ML CUP MT SCH (08:00)
[2018-01-09 08:01] VITALS: BP 128/60; PULSE 79; RESP 20; TEMP 97.5; O2SAT 100
[2018-01-09] MEDS: RESP: BUDESONIDE 0.5 MG/2 ML NEB NEB SCH (08:10)
[2018-01-09 08:13] VITALS: O2SAT 99
[2018-01-09] MEDS: ARTIFICIAL TEARS OPTH SOLN 15 ML BTL EACH EYE SCH ×2 (09:00→13:00)
[2018-01-09] MEDS: LANSOPRAZOLE SOLUTAB 30 MG TAB G-TUBE SCH (09:07)
[2018-01-09] MEDS: CALCIUM ACETATE 667 MG CAP PO SCH ×2 (09:07→13:16)
[2018-01-09] MEDS: DOCUSATE SODIUM 50 MG/SENNA 8.6 MG TAB PO SCH (09:07)
[2018-01-09] MEDS: FUROSEMIDE 40 MG TAB PO SCH (09:07)
[2018-01-09] MEDS: RIVAROXABAN 10 MG TAB PO SCH (09:08)
[2018-01-09] MEDS: DIGOXIN SOLUTION 0.125 MG/2.5 ML CUP PO SCH (09:08)
[2018-01-09] MEDS: FERROUS SULFATE 325 MG (65 MG ELEMENTAL IRON) TAB PO SCH (09:08)
[2018-01-09] MEDS: predniSONE 20 MG TAB PO SCH (09:08)
[2018-01-09] MEDS: METOPROLOL TARTRATE 100 MG TAB PO SCH (09:08)
[2018-01-09] MEDS: SODIUM CHLORIDE 0.9% FLUSH 10 ML FLUSH IV FLUSH SCH (09:09)
--- NOTE | 2018-01-09 11:11 | HHI.PR ---
Subjective Remarks No new issues. Awaiting placement to SNF. Objective Vitals Vital Signs Date Time Temp Pulse Resp B/P (MAP) Pulse Ox O2 Delivery O2 Flow Rate FiO2 01/09/18 08:13 99 Nasal Cannula 2.00 01/09/18 08:01 97.5 79 20 128/60 (82) 100 01/09/18 07:55 Nasal Cannula 2.00 01/09/18 04:00 98.4 70 22 100 01/09/18 01:31 97 30 01/09/18 00:19 99.1 66 20 141/77 (98) 99 01/08/18 19:53 97.5 79 18 148/79 (102) 97 01/08/18 19:45 Nasal Cannula 2.00 01/08/18 19:41 98 Nasal Cannula 2.00 01/08/18 16:21 97.9 75 17 134/69 (90) 97 01/08/18 12:00 98.9 68 18 125/65 (85) 95 I/O 01/08/18 01/08/18 01/08/18 01/09/18 01/09/18 01/09/18 07:00 15:00 23:00 07:00 15:00 23:00 Output Total 600 ml 1100 ml 100 ml Balance -600 ml -1100 ml -100 ml Output Urine Total 600 ml 1100 ml 100 ml # Bowel Movements 1 Objective Remarks GENERAL: Obese male in no apparent distress CARDIOVASCULAR: Regular rate and rhythm without murmurs, gallops or rubs. RESPIRATORY: Clear to auscultation bilaterally except for diminished breath sounds at the bases. GASTROINTESTINAL: Abdomen soft, non-tender, nondistended. Normal active bowel sounds MUSCULOSKELETAL: Extremities without clubbing, cyanosis, no edema. NEURO: Alert & Oriented x4 to person, place, time, and situation. Moves all ext x4 Procedures Intubation and extubation Date of Insertion: Dec 23, 2017 Line: Central Venous Catheter Side: Right Location: Femoral A/P Problem List: (1) Acute respiratory failure with hypoxia and hypercapnia ICD Code: J96.01 - Acute respiratory failure with hypoxia; J96.02 - Acute respiratory failure with hypercapnia (2) Osteoporosis ICD Code: M81.0 - Age-related osteoporosis without current pathological fracture (3) Diabetes mellitus ICD Code: E11.9 - Type 2 diabetes mellitus without complications (4) Benign prostatic hyperplasia ICD Code: N40.0 - Benign prostatic hyperplasia without lower urinary tract symptoms (5) BMI 45.0-49.9, adult ICD Code: Z68.42 - Body mass index (BMI) 45.0-49.9, adult (6) History of TIA (transient ischemic attack) ICD Code: Z86.73 - Personal history of transient ischemic attack (TIA), and cerebral infarction without residual deficits (7) Hyperlipidemia ICD Code: E78.5 - Hyperlipidemia, unspecified (8) Chronic venous stasis dermatitis of both lower extremities ICD Code: I87.2 - Venous insufficiency (chronic) (peripheral) (9) Chronic kidney disease, stage 3a ICD Code: N18.3 - Chronic kidney disease, stage 3 (moderate) (10) Anticoagulants taken within 24 hours prior to hospitalization ICD Code: Z79.01 - senior living (current) use of anticoagulants (11) Leukocytosis ICD Code: D72.829 - Elevated white blood cell count, unspecified (12) Hyperpotassemia ICD Code: E87.5 - Hyperkalemia (13) Chronic diastolic heart failure ICD Code: I50.32 - Chronic diastolic (congestive) heart failure (14) Pulmonary hypertension ICD Code: I27.2 - Other secondary pulmonary hypertension Status: Acute (15) Secondary hyperparathyroidism ICD Code: N25.81 - Secondary hyperparathyroidism of renal origin (16) Sleep apnea ICD Code: G47.30 - Sleep apnea, unspecified Status: Chronic (17) COPD exacerbation ICD Code: J44.1 - Chronic obstructive pulmonary disease with (acute) exacerbation Status: Resolved (18) Chronic diastolic (congestive) heart failure ICD Code: I50.32 - Chronic diastolic (congestive) heart failure Status: Chronic Assessment and Plan 62 year old male with h/o AFIB, diastolic CHF, COPD, DENIS, HTN, CKD III , and DM admitted 12/23 for CHF exacerbation after presenting with acute onset SOB at his nursing facility, [facility]. He was emergently intubated in the ED for hypoxic hypercapnic respiratory failure. CXR demonstrated cardiomegaly and pulmonary vascular congestion. He was treated with IV diuresis as well as broad-spectrum antibiotics including Azithromycin, Zosyn, and Vancomycin for coverage of sepsis with possible healthcare associated PNA. He was extubated on 01/01 and care was assumed by [facility] on 01/03. Treatment course detailed below: 1. Acute on chronic respiratory failure - Acute component resolved s/p intubation 12/23-01/01 - Supplemental O2 - DuoNeb Q4H - Prednisone taper. 2. CHF exacerbation, acute on chronic systolic. - Acute component resolved - Echo on 12/24 revealed EF 55%, LVH, and peak pulmonary pressure 57 mmHg -Resume oral diuretics. - Continuing home metoprolol and Digoxin 3. Sepsis - Resolved - Patient met sepsis criteria on admission with HR>90, WBC >12K, and possible PNA as suspected source - Treated with Azithromycin, Vancomycin, and Zosyn 12/23-12/30 - Has remained afebrile with no leukocytosis - Blood, urine, and sputum cultures negative - Negative urine legionella and pneumococcal - Negative influenza 4. Acute on chronic renal insufficiency (CKD III at baseline) - Creatinine 1.58 on admission down to 0.88 - Acute component resolved - Monitor creatinine - Avoid nephrotoxic agents - Continue home Phoslo 5. DENIS/obesity hypoventilation syndrome with pulmonary HTN -No longer required BiPAP at night. -Appreciate pulmonology following. Patient will follow up with Dr. Vicente outpatient for sleep study and possible CPAP machine. 6. Atrial fibrillation - Rate-controlled - Continuing home Cardizem and Xarelto 7. O2-dependent COPD - Continue home Pulmicort - DuoNeb Q4H - Supplemental O2 PRN 8. DM - SSI per protocol 9. HTN -Continue antihypertensives 10. HLD - Resume home statin 11. Weakness, deconditioning -Patient to continue physical therapy at SNF. - OOB with assistance Discharge Planning Okay to discharge to SNF once arrangements are made. Problem Qualifiers (1) Osteoporosis: Qualified Codes: M81.0 - Age-related osteoporosis without current pathological fracture (2) Diabetes mellitus: Qualified Codes: E11.8 - Type 2 diabetes mellitus with unspecified complications (3) Benign prostatic hyperplasia: Qualified Codes: N40.0 - Benign prostatic hyperplasia without lower urinary tract symptoms (4) Hyperlipidemia: Qualified Codes: E78.5 - Hyperlipidemia, unspecified (5) Leukocytosis: Qualified Codes: D72.829 - Elevated white blood cell count, unspecified (6) Sleep apnea: Qualified Codes: G47.30 - Sleep apnea, unspecified Bre Bourgeois MD Jan 09, 2018 11:11
[2018-01-09 11:27] VITALS: BP 128/68; PULSE 71; RESP 20; TEMP 99.1; O2SAT 98
== END 2018-01-09 15:49 | DRG 870 ==
LOC: NEPC 11:04 → NEDA 14:33 → HIME 15:00 → N05B 01-04 17:11
PROVIDERS: ADMIT Family Medicine; ATTEND Family Medicine
PROC: 5A1955Z Respiratory Ventilation, Greater than 96 Consecutive Hours (ICD-10-PCS; principal; 2017-12-23)
PROC: 0BH17EZ Insertion of Endotracheal Airway into Trachea, Via Natural or Artificial Opening (ICD-10-PCS; 2017-12-23)
PROC: 06HY33Z Insertion of Infusion Device into Lower Vein, Percutaneous Approach (ICD-10-PCS; 2017-12-23)
DX: A41.9 Sepsis, unspecified organism (principal); J96.21 Acute and chronic respiratory failure with hypoxia; I50.43 Acute on chronic combined systolic (congestive) and diastolic (congestive) heart failure; J18.9 Pneumonia, unspecified organism; E87.2 Acidosis; J44.0 Chronic obstructive pulmonary disease with (acute) lower respiratory infection; I95.9 Hypotension, unspecified; I13.0 Hypertensive heart and chronic kidney disease with heart failure and stage 1 through stage 4 chronic kidney disease, or unspecified chronic kidney disease; E11.22 Type 2 diabetes mellitus with diabetic chronic kidney disease; I27.29 Other secondary pulmonary hypertension; J96.22 Acute and chronic respiratory failure with hypercapnia; N25.81 Secondary hyperparathyroidism of renal origin; J44.1 Chronic obstructive pulmonary disease with (acute) exacerbation; E66.2 Morbid (severe) obesity with alveolar hypoventilation; Z68.42 Body mass index [BMI] 45.0-49.9, adult; J98.11 Atelectasis; N18.3 Chronic kidney disease, stage 3 (moderate); I48.91 Unspecified atrial fibrillation; E78.5 Hyperlipidemia, unspecified; I25.10 Atherosclerotic heart disease of native coronary artery without angina pectoris; M81.0 Age-related osteoporosis without current pathological fracture; N40.0 Benign prostatic hyperplasia without lower urinary tract symptoms; I87.2 Venous insufficiency (chronic) (peripheral); E87.5 Hyperkalemia; I89.0 Lymphedema, not elsewhere classified; D63.1 Anemia in chronic kidney disease; M54.5 Low back pain; G89.29 Other chronic pain; I44.0 Atrioventricular block, first degree; Y95 Nosocomial condition; I45.10 Unspecified right bundle-branch block; Z99.81 Dependence on supplemental oxygen; Z86.73 Personal history of transient ischemic attack (TIA), and cerebral infarction without residual deficits; Z79.01 Long term (current) use of anticoagulants
CPT/HCPCS: 31500; 36556; 36600; 51702; 71045; 74018; 76937; 80048; 80053; 80061; 80162; 80202; 81001; 82550; 82805; 82948; 83605; 83735; 83880; 84100; 84132; 84443; 84484; 85014; 85018; 85025; 85027; 85610; 85730; 87040; 87070; 87086; 87205; 87449; 87641; 87804; 93005; 93308; 93970; 94002; 94003; 94150; 94640; 94664; 96365; 96368; 96375; 99292; J0330; J0360; J0456; J0610; J1120; J1815; J1940; J2212; J2250; J2543; J2920; J2930; J3010; J3370; J3480; J7040; J7050; J7512; J7613; J7626

== ENCOUNTER 2018-05-01 22:55 | Inpatient (IN) ==
[2018-05-01 23:56] LABS: Baso # (Auto) 0.2 th/mm3 (0.0-0.2); Baso % (Auto) 1.8 % (0.0-2.0); Eos # (Auto) 0.2 th/mm3 (0.0-0.4); Eos % (Auto) 1.9 % (0.0-4.0); Hematocrit 29.9 % (39.0-51.0); Hemoglobin 8.7 gm/dL (13.0-17.0); Lymph % (Auto) 9.6 % (9.0-44.0); Mean Corpuscular HGB Conc 29.1 % (32.0-36.0); Mean Corpuscular Hemoglobin 24.7 pg (27.0-34.0); Mean Corpuscular Volume 84.8 fL (80.0-100.0); Mean Platelet Volume 7.5 fL (7.0-11.0); Mono # (Auto) 0.9 th/mm3 (0.0-0.9); Mono % (Auto) 9.1 % (0.0-8.0); Neut # (Auto) 8.1 th/mm3 (1.8-7.7); Neut % (Auto) 77.6 % (16.0-70.0); Platelet Count 298 th/mm3 (150-450); Red Blood Count 3.53 mil/mm3 (4.50-5.90); White Blood Count 10.4 th/mm3 (4.0-11.0)
[2018-05-02 00:06] LABS: Calcium 8.5 mg/dL (8.5-10.1); Carbon Dioxide 26.9 meq/L (21.0-32.0); Potassium 4.2 meq/L (3.5-5.1)
--- NOTE | 2018-05-02 00:55 | XR ---
EXAM DATE: 05/02/2018 12:44 AM EDT AGE/SEX: 62 years / Male INDICATIONS: Shortness of breath. CLINICAL DATA: This is the patient's initial encounter. Patient reports that signs and symptoms have been present for 1 day and indicates a pain score of 0/10. MEDICAL/SURGICAL HISTORY: Chronic obstructive pulmonary disease. None. COMPARISON: No prior exams available for comparison. FINDINGS: The heart size is enlarged. The lungs are free of focal consolidation. There is a mild right pleural effusion. CONCLUSION: Mild right pleural effusion. Electronically signed by: Renny Pace MD 05/02/2018 12:54 AM EDT
[2018-05-02 01:11] LABS: Magnesium 2.3 mg/dL (1.5-2.5)
[2018-05-02 01:14] LABS: Troponin I 0.03 ng/mL (0.02-0.05)
[2018-05-02] MEDS ORDERED: Acetaminophen 325 MG Tablet PO PRN (04:04)
[2018-05-02] MEDS ORDERED: Dextrose 50% in Water 50 ML Vial IV.PUSH PRN (04:52)
--- NOTE | 2018-05-02 05:00 | P.HP ---
History of Present Illness Service: [facility] Primary Care Physician: UNKNOWN History of Present Illness: 62-year-old male with a past medical history of atrial fibrillation on Xarelto, chronic diastolic heart failure ejection fraction 55%, COPD, DENIS on CPAP, hyperlipidemia, venous stasis, hypertension, CKD stage III, diabetes mellitus and chronic lower back pain presents to the emergency department for the evaluation of a fall and increasing worsening shortness of breath/ deconditioning. The patient reports he was trying to sit down on his bed to take a rest after becoming short of breath while walking when he missed the side of the bed and slid down onto the ground. He was unable to get up on his own and called EMS for assistance. Given the patient's dyspnea he was brought to the emergency department for further evaluation. Patient was last discharged from [facility] on 01/06/18 where he was admitted for CHF with respiratory failure requiring intubation. The patient currently denies any chest pain. No abdominal pain. No nausea/vomiting/diarrhea. No lateralizing signs/symptoms. No fever/chills. Review of Systems All other systems reviewed negative except as stated in HPI PMFSH - History History Provided By: Patient - Medical History Medical History: Medical History (Last Updated 05/02/18 @ 04:49 by Lilliana Blair MD) Atrial fibrillation CHF (congestive heart failure) COPD (chronic obstructive pulmonary disease) Chronic kidney disease, stage III (moderate) Diabetes mellitus Hyperlipidemia Hypertension DENIS (obstructive sleep apnea) - Surgical History Surgical History: Surgical History (Last Updated 05/02/18 @ 04:50 by Lilliana Blair MD) H/O cardiac radiofrequency ablation History of appendectomy History of surgery on arm Hx of tonsillectomy - Family History Family History: Family History (Last Updated 05/02/18 @ 04:51 by Lilliana Blair MD) Other Diabetes mellitus Hypertension - Tobacco History Smoking Status: Never smoker - Alcohol History How Often Do You Have a Drink Containing Alcohol: 4 or more times a week - Substance Use History Substance History: No History of Abuse - Travel History Recent Travel in the [place] Within the Last 8 Weeks: No Recent Travel Out of the Country Within the Last 8 Weeks: No - Immunization History Tetanus Immunization: <5 Years Hx Influenza Vaccine This Season: Yes Medications and Allergies Active Medications: Active Medications Acetaminophen (Tylenol) 650 mg PO Q4H PRN PRN Reason: Temp > 100.4 Furosemide (Lasix Inj) 20 mg IV.PUSH BID@0900,1800 [facility] Heparin Sodium (Porcine) (Heparin Inj) 5,000 units SQ Q12H [facility] Ondansetron HCl (Zofran Inj) 4 mg IV.PUSH Q6H PRN PRN Reason: NAUSEA OR VOMITING Allergies Allergy/AdvReac Type Severity Reaction Status Date / Time No Known Allergies Allergy Unverified 05/01/18 23:13 Exam Vital signs: Vital Signs 05/01/18 23:06 05/02/18 00:03 05/02/18 01:52 Temperature 97.8 F Pulse Rate 70 69 72 Respiratory Rate 20 22 18 Blood Pressure 108/52 L 101/50 L 111/56 L Pulse Oximetry 95 98 98 05/02/18 03:58 Temperature Pulse Rate 79 Respiratory Rate 18 Blood Pressure 118/72 Pulse Oximetry 97 Intake & Output 05/01/18 05/01/18 05/02/18 06:59 18:59 06:59 Weight 113.398 kg Narrative: Gen.: No acute distress Head: Normocephalic. Atraumatic. EENT: Pupils equal round and reactive to light. Nose without drainage. Airway intact. Throat without injection. Cardiovascular: Regular rate and irregularly irregular rhythm. No murmurs, rubs or gallops. Respiratory: Lungs clear to auscultation bilaterally. No wheezes or rhonchi. Abdomen: Soft, nontender, nondistended. No peritoneal signs. Positive anasarca. Musculoskeletal: No gross deformities. Extensive 2+ pitting edema bilateral lower extremities with chronic venous stasis changes Skin: No obvious rashes or erythema. Neuro: Sensory and motor grossly intact. Cranial nerves II through XII grossly intact. Results - Labs CBC & Chem 7: 05/01/18 23:33 05/01/18 23:33 Labs: Laboratory Results - last 24 hr 05/01/18 05/01/18 05/01/18 23:33 23:33 23:33 WBC 10.4 RBC 3.53 L Hgb 8.7 L Hct 29.9 L MCV 84.8 MCH 24.7 L MCHC 29.1 L RDW 19.0 H Plt Count 298 MPV 7.5 Neut % (Auto) 77.6 H Lymph % (Auto) 9.6 [place] % (Auto) 9.1 H Eos % (Auto) 1.9 Baso % (Auto) 1.8 Neut # (Auto) 8.1 H Lymph # (Auto) 1.0 [place] # (Auto) 0.9 Eos # (Auto) 0.2 Baso # (Auto) 0.2 WBC Differential . Differential Comment Auto diff final Sodium 139 Potassium 4.2 Chloride 102 Carbon Dioxide 26.9 Anion Gap 10 BUN 53 H Creatinine 1.66 H Estimated GFR 42 L Random Glucose 110 H Calcium 8.5 Magnesium Troponin I B-Natriuretic Peptide 795 H 05/01/18 23:33 WBC RBC Hgb Hct MCV MCH MCHC RDW Plt Count MPV Neut % (Auto) Lymph % (Auto) [place] % (Auto) Eos % (Auto) Baso % (Auto) Neut # (Auto) Lymph # (Auto) [place] # (Auto) Eos # (Auto) Baso # (Auto) WBC Differential Differential Comment Sodium Potassium Chloride Carbon Dioxide Anion Gap BUN Creatinine Estimated GFR Random Glucose Calcium Magnesium 2.3 Troponin I 0.03 B-Natriuretic Peptide - Imaging Impressions Chest X-Ray 05/02/18 00:27 CONCLUSION: Mild right pleural effusion. Caprini VTE Risk Assessment Caprini VTE Risk Assessment: Moderate/High Risk (score >= 2) Caprini Risk Assessment Model: Point Value = 1 Point Value = 2 Point Value = 3 Point Value = 5 Age 41-60 Minor surgery BMI > 25 kg/m2 Swollen legs Varicose veins or History of unexplained or recurrent spontaneous Oral contraceptives or hormone replacement Sepsis (< 1 month) Serious lung disease, including pneumonia (< 1 month) Abnormal pulmonary function Acute myocardial infarction Congestive heart failure (< 1 month) History of inflammatory bowel disease Medical patient at bed rest Age 61-74 Arthroscopic surgery Major open surgery (> 45 min) Laparoscopic surgery (> 45 min) Malignancy Confined to bed (> 72 hours) Immobilizing plaster cast Central venous access Age >= 75 History of VTE Family history of VTE Factor V Leiden Prothrombin [id number] Lupus anticoagulant Anticardiolipin antibodies Elevated serum homocysteine Heparin-induced thrombocytopenia Other congenital or acquired thrombophilia Stroke (< 1 month) Elective arthroplasty Hip, pelvis, or leg fracture Acute spinal cord injury (< 1 month) Prophylaxis Regimen: Total Risk Factor Score Risk Level Prophylaxis Regimen 0-1 Low Early ambulation 2 Moderate Order ONE of the following: *Sequential Compression Device (SCD) *Heparin 5000 units SQ BID 3-4 Higher Order ONE of the following medications: *Heparin 5000 units SQ TID *Enoxaparin/Lovenox 40 mg SQ daily (WT < 150 kg, CrCl > 30 mL/min) *Enoxaparin/Lovenox 30 mg SQ daily (WT < 150 kg, CrCl > 10-29 mL/min) *Enoxaparin/Lovenox 30 mg SQ BID (WT < 150 kg, CrCl > 30 mL/min) AND/OR *Sequential Compression Device (SCD) 5 or more Highest Order ONE of the following medications: *Heparin 5000 units SQ TID (Preferred with Epidurals) *Enoxaparin/Lovenox 40 mg SQ daily (WT < 150 kg, CrCl > 30 mL/min) *Enoxaparin/Lovenox 30 mg SQ daily (WT < 150 kg, CrCl > 10-29 mL/min) *Enoxaparin/Lovenox 30 mg SQ BID (WT < 150 kg, CrCl > 30 mL/min) AND *Sequential Compression Device (SCD) Assessment and Plan - Plan Assessment/plan: 1. CHF exacerbation Patient on home Lasix and Bumex IV Bumex Supplemental oxygen as needed 2. Acute on chronic renal failure Creatinine 1.66, was 0.88 on 01/04/18 Baseline 1.5 Nephrology consulted, appreciate assistance 3. Atrial fibrillation Continue Xarelto Continue home medications once reconciled 4. COPD/DENIS Continue nocturnal CPAP Continue home medications 5. Diabetes mellitus Continue long-acting insulin once reconciled Sliding-scale insulin Monitor blood glucose 6. Hypertension/hyperlipidemia Continue home medications FEN Diabetic diet Electrolytes: Monitor and replete as needed Xarelto Case management consulted as patient may need placement
--- NOTE | 2018-05-02 07:40 | ED ---
HPI General Chief complaint: Extremity Problem,Nontraumatic Stated complaint: Swelling Time Seen by Provider: 05/02/18 00:20 Source: patient Mode of arrival: EMS Limitations: no limitations History of Present Illness HPI narrative: 62-year-old male with known history of CHF respiratory failure COPD and supplemental oxygen dependence at bedtime presents to the emergency department by EMS transport after he slipped off the edge of his bed while trying to sit down and landed on the floor. Patient states he was not able to get up on his own so called paramedics. Upon their arrival they noted him to be markedly short of breath with his history of obesity COPD deconditioning and CHF. Patient also reported increasing swelling of the lower extremities but does not report orthopnea or PND. Patient does have dyspnea at rest and on exertion. Patient is also noticed increasing abdominal girth. Patient states she has been taking Bumex and Lasix. Patient is followed by [facility]. Patient states that his diuretics do not seem to be working. Patient denies fever chills chest pain referred neck jaw back shoulder arm pain. Onset (ago): hour(s) Location: lower extremity Radiation: non-radiation Severity: mild Pain Consistency: constant Exacerbating factors: other Treatments prior to arrival: none Related Data Home Medications Medication Instructions Recorded Confirmed Unable to Obtain Home Meds 05/02/18 05/02/18 Allergies Allergy/AdvReac Type Severity Reaction Status Date / Time No Known Allergies Allergy Unverified 05/01/18 23:13 Review of Systems ROS: all other systems reviewed are negative [facility] Medical History Medical History Atrial fibrillation (Acute) CHF (congestive heart failure) (Acute) COPD (chronic obstructive pulmonary disease) (Acute) Chronic kidney disease, stage III (moderate) (Acute) Diabetes mellitus (Acute) Hyperlipidemia (Acute) Hypertension (Acute) DENIS (obstructive sleep apnea) (Acute) Surgical History Surgical History H/O cardiac radiofrequency ablation (Acute) History of appendectomy (Acute) History of surgery on arm (Acute) Hx of tonsillectomy (Acute) Family History Family History Other Diabetes mellitus Hypertension Social History Social History Substance History: No History of Abuse Smoking Status: Never smoker How Often Do You Have a Drink Containing Alcohol: 4 or more times a week Recent Travel in [facility] within the Last 8 Weeks: No Recent Out of Country Travel within the Last 8 Weeks: No Immunization History Tetanus Immunization: <5 Years Hx Influenza Vaccine This Season: Yes Exam Narrative Exam Narrative: GENERAL: Well-nourished, well-developed patient. No acute distress no respiratory distress sleeping 30 semi-Rivera's in no acute respiratory distress without tachypnea at 2 L/min supplemental oxygen. SKIN: Focused skin assessment warm/dry. HEAD: Normocephalic. EYES: No scleral icterus. No injection or drainage. NECK: Supple, trachea midline. No JVD or lymphadenopathy. CARDIOVASCULAR: Regular rate and rhythm without murmurs, gallops, or rubs. RESPIRATORY: Breath sounds equal bilaterally. No accessory muscle use. GASTROINTESTINAL: Abdomen soft, non-tender, nondistended. MUSCULOSKELETAL: No cyanosis, bilateral lower leg and pedal edema. BACK: Nontender without obvious deformity. No CVA tenderness. Course Initial Documented Vital Signs Temperature 97.8 F 05/01/18 23:06 Pulse Rate 70 05/01/18 23:06 Respiratory Rate 20 05/01/18 23:06 Blood Pressure 108/52 L 05/01/18 23:06 Pulse Oximetry 95 05/01/18 23:06 Last Documented Vital Signs Temperature 97.8 F 05/01/18 23:06 Pulse Rate 73 05/02/18 04:53 Respiratory Rate 18 05/02/18 04:53 Blood Pressure 126/67 05/02/18 04:53 Pulse Oximetry 100 05/02/18 04:53 Medical Decision Making MDM Narrative Medical decision making narrative: 62-year-old male with known history of CHF deconditioning morbid obesity and COPD presents for shortness of breath after non-syncopal slip and near fall with inability to upright himself without assistance. Paramedics noted patient to be dyspneic and brought patient to the emergency room for further evaluation. Patient did take his diuretic medication Bumex and Lasix today as prescribed. He has had no fever chills patient denies any head injury loss of consciousness or altered mentation. Patient reports he feels fairly comfortable and asymptomatic resting supine. Medical Screen Exam Complete: Yes Emergency Medical Condition: Yes Differential Diagnosis Differential Diagnosis: Dyspnea, exacerbation COPD, exacerbation CHF, anasarca, electrolyte disturbance, ACS, uncontrolled diabetes Medical Records Medical records reviewed: Yes I reviewed the patient's medical records. Lab Data Lab results reviewed: Yes I reviewed the patient's lab results. Result diagrams: 05/01/18 23:33 05/01/18 23:33 Lab Results 05/01/18 05/01/18 05/01/18 Range/Units 23:33 23:33 23:33 WBC 10.4 (4.0-11.0) th/mm3 RBC 3.53 L (4.50-5.90) mil/mm3 Hgb 8.7 L (13.0-17.0) gm/dL Hct 29.9 L (39.0-51.0) % MCV 84.8 (80.0-100.0) fL MCH 24.7 L (27.0-34.0) pg MCHC 29.1 L (32.0-36.0) % RDW 19.0 H (11.6-17.2) % Plt Count 298 (150-450) th/mm3 MPV 7.5 (7.0-11.0) fL Neut % (Auto) 77.6 H (16.0-70.0) % Lymph % (Auto) 9.6 (9.0-44.0) % [place] % (Auto) 9.1 H (0.0-8.0) % Eos % (Auto) 1.9 (0.0-4.0) % Baso % (Auto) 1.8 (0.0-2.0) % Neut # (Auto) 8.1 H (1.8-7.7) th/mm3 Lymph # (Auto) 1.0 (1.0-4.8) th/mm3 [place] # (Auto) 0.9 (0.0-0.9) th/mm3 Eos # (Auto) 0.2 (0.0-0.4) th/mm3 Baso # (Auto) 0.2 (0.0-0.2) th/mm3 WBC Differential . Differential Comment Auto diff final Sodium 139 (136-145) meq/L Potassium 4.2 (3.5-5.1) meq/L Chloride 102 (98-107) meq/L Carbon Dioxide 26.9 (21.0-32.0) meq/L Anion Gap 10 (5-15) meq/L BUN 53 H (7-18) mg/dL Creatinine 1.66 H (0.60-1.30) mg/dL Estimated GFR 42 L (>89) mL/min Random Glucose 110 H (74-106) mg/dL Calcium 8.5 (8.5-10.1) mg/dL Magnesium (1.5-2.5) mg/dL Troponin I (0.02-0.05) ng/mL B-Natriuretic Peptide 795 H (0-100) pg/mL 05/01/18 Range/Units 23:33 WBC (4.0-11.0) th/mm3 RBC (4.50-5.90) mil/mm3 Hgb (13.0-17.0) gm/dL Hct (39.0-51.0) % MCV (80.0-100.0) fL MCH (27.0-34.0) pg MCHC (32.0-36.0) % RDW (11.6-17.2) % Plt Count (150-450) th/mm3 MPV (7.0-11.0) fL Neut % (Auto) (16.0-70.0) % Lymph % (Auto) (9.0-44.0) % [place] % (Auto) (0.0-8.0) % Eos % (Auto) (0.0-4.0) % Baso % (Auto) (0.0-2.0) % Neut # (Auto) (1.8-7.7) th/mm3 Lymph # (Auto) (1.0-4.8) th/mm3 [place] # (Auto) (0.0-0.9) th/mm3 Eos # (Auto) (0.0-0.4) th/mm3 Baso # (Auto) (0.0-0.2) th/mm3 WBC Differential Differential Comment Sodium (136-145) meq/L Potassium (3.5-5.1) meq/L Chloride (98-107) meq/L Carbon Dioxide (21.0-32.0) meq/L Anion Gap (5-15) meq/L BUN (7-18) mg/dL Creatinine (0.60-1.30) mg/dL Estimated GFR (>89) mL/min Random Glucose (74-106) mg/dL Calcium (8.5-10.1) mg/dL Magnesium 2.3 (1.5-2.5) mg/dL Troponin I 0.03 (0.02-0.05) ng/mL B-Natriuretic Peptide (0-100) pg/mL Imaging Data Radiologist's impression: Chest X-Ray 05/02/18 00:27 CONCLUSION: Mild right pleural effusion. ECG Data Interpretation: EKG sinus rhythm with first-degree AV block no acute ST elevation injury pattern or ectopy noted Discharge Plan Discharge Disposition Patient Disposition: 30 Still Patient Discharge Condition Condition: Stable Discharge Details Diagnosis: Anasarca, CHF (congestive heart failure) Physicians Team ED Provider: Emilie Pretty Primary Care Provider: UNKNOWN, Attending Provider: Amadeo Conteh Other Providers: Amadeo Carvajal V ; Jake Joseph Discharge Interventions Interventions: ED Discharge Assessment Last Done: 05/02/18 06:54 Vital Signs Last Done: 05/02/18 03:58 Status ED Status: Admitted Observation Patient
[2018-05-02] MEDS: Insulin NovoLOG Aspart Correctional Sugar Inj SQ SCH ×4 (09:37→23:04)
[2018-05-02] MEDS: Heparin - SQ 10,000 UNITS/ML Vial SQ SCH ×2 (09:37→17:16)
--- NOTE | 2018-05-02 16:30 | US ---
EXAM DATE: 05/02/2018 3:48 PM EDT AGE/SEX: 62 years / Male INDICATIONS: Increased lab work. Renal insufficiency. CLINICAL DATA: This is the patient's initial encounter. Patient reports that signs and symptoms have been present for 1 day and indicates a pain score of 0/10. MEDICAL/SURGICAL HISTORY: Congestive heart failure. Radiculopathy. Chronic obstructive pulmon martin disease. A-fib. Chronic renal disease. Hyperlipidemia. Hypertension. Tonsillectomy. Appendecto my. Cardiac ablation. [place] [facility] [place]/16[place]. . MEASUREMENTS: Right Kidney:__8.0 x 4.0 x 6.0 cm Left Kidney:__10.2 x 4.9 x 4.9 cm FINDINGS: Right Kidney: Normal echotexture and cortical thickness. No mass or hydronephrosis. Left Kidney: Normal echotexture and cortical thickness. No mass or hydronephrosis. Bladder: Within normal limits given the degree of distension. Other: None. CONCLUSION: 1. Asymmetrical renal size with small right kidney. 2. No sonographic evidence for obstructive uropathy. Electronically signed by: Ollie Moran MD 05/02/2018 4:29 PM EDT
[2018-05-03] MEDS: Insulin NovoLOG Aspart Correctional Sugar Inj SQ SCH ×6 (03:49→20:15)
[2018-05-03] MEDS: Heparin - SQ 10,000 UNITS/ML Vial SQ SCH ×2 (03:50→18:28)
[2018-05-03 08:27] LABS: Baso # (Auto) 0.1 th/mm3 (0.0-0.2); Baso % (Auto) 1.2 % (0.0-2.0); Eos # (Auto) 0.1 th/mm3 (0.0-0.4); Eos % (Auto) 1.5 % (0.0-4.0); Hematocrit 26.6 % (39.0-51.0); Hemoglobin 7.8 gm/dL (13.0-17.0); Lymph # (Auto) 0.5 th/mm3 (1.0-4.8); Lymph % (Auto) 7.4 % (9.0-44.0); Mean Corpuscular Hemoglobin 25.6 pg (27.0-34.0); Mean Corpuscular Volume 86.8 fL (80.0-100.0); Mean Platelet Volume 7.5 fL (7.0-11.0); Mono # (Auto) 0.5 th/mm3 (0.0-0.9); Mono % (Auto) 6.3 % (0.0-8.0); Neut # (Auto) 6.2 th/mm3 (1.8-7.7); Neut % (Auto) 83.6 % (16.0-70.0); Platelet Count 212 th/mm3 (150-450); Red Blood Count 3.07 mil/mm3 (4.50-5.90); White Blood Count 7.4 th/mm3 (4.0-11.0)
[2018-05-03 08:34] LABS: Calcium 8.5 mg/dL (8.5-10.1); Carbon Dioxide 28.4 meq/L (21.0-32.0); Potassium 4.1 meq/L (3.5-5.1)
[2018-05-03 08:35] LABS: Mean Corpuscular HGB Conc 29.5 % (32.0-36.0)
--- NOTE | 2018-05-03 12:57 | P.PNIM ---
Subjective Interval history: Worsening anemia overnight. Patient reports no knowledge of GI bleeding. Primary complaint today is lack of fluids, he is on a 1.5 L fluid restriction. No other complaints. Physical Exam Vital signs: Vital Signs 05/02/18 16:38 05/02/18 20:00 05/02/18 23:00 Temperature 98.6 F 98.3 F Pulse Rate 91 H 97 H Respiratory Rate 18 20 Blood Pressure 134/65 138/71 Pulse Oximetry 98 99 93 L 05/02/18 23:41 05/03/18 02:10 05/03/18 04:09 Temperature 97.5 F L 98.6 F Pulse Rate 95 H 105 H Respiratory Rate 20 20 Blood Pressure 105/88 141/77 H Pulse Oximetry 100 97 100 05/03/18 07:57 05/03/18 07:59 05/03/18 08:00 Temperature 98.1 F Pulse Rate 113 H 98 H Respiratory Rate 20 Blood Pressure 129/78 Pulse Oximetry 97 98 05/03/18 12:00 Temperature 98.3 F Pulse Rate 103 H Respiratory Rate 18 Blood Pressure 117/59 L Pulse Oximetry 98 Intake & Output 05/02/18 05/03/18 05/03/18 18:59 06:59 18:59 Intake Total 0 / 0 365 / 365 Output Total 1000 / 1000 Balance 0 / 0 -635 / -635 Intake: Oral 365 / 365 Other 0 / 0 Output: Urine 1000 / 1000 Other: Other Intake Source Saline Solution Narrative: GENERAL: NAD, A&Ox3 HEAD: Normocephalic. NECK: Supple, trachea midline. No lymphadenopathy. EYES: No scleral icterus. No injection or drainage. CARDIOVASCULAR: Regular rate and rhythm without murmurs, gallops, or rubs. RESPIRATORY: Breath sounds equal bilaterally. No accessory muscle use. Crackles at bases bilaterally. GASTROINTESTINAL: Abdomen soft, non-tender, nondistended. MUSCULOSKELETAL: No cyanosis, bilateral lower extremity edema. SKIN: Warm and dry. NEURO: No focal neurological deficits. Results - Labs CBC & Chem 7: 05/03/18 07:08 05/03/18 07:08 Laboratory Results - last 24 hr 05/02/18 05/02/18 05/02/18 13:04 17:15 22:12 WBC RBC Hgb Hct MCV MCH MCHC RDW Plt Count MPV Neut % (Auto) Lymph % (Auto) [place] % (Auto) Eos % (Auto) Baso % (Auto) Neut # (Auto) Lymph # (Auto) [place] # (Auto) Eos # (Auto) Baso # (Auto) WBC Differential Differential Comment Sodium Potassium Chloride Carbon Dioxide Anion Gap BUN Creatinine Estimated GFR POC Glucose 112 H 129 H 111 H Random Glucose Calcium 05/03/18 05/03/18 05/03/18 03:43 07:08 07:08 WBC 7.4 RBC 3.07 L Hgb 7.8 L Hct 26.6 L MCV 86.8 MCH 25.6 L MCHC 29.5 L RDW 19.0 H Plt Count 212 MPV 7.5 Neut % (Auto) 83.6 H Lymph % (Auto) 7.4 L [place] % (Auto) 6.3 Eos % (Auto) 1.5 Baso % (Auto) 1.2 Neut # (Auto) 6.2 Lymph # (Auto) 0.5 L [place] # (Auto) 0.5 Eos # (Auto) 0.1 Baso # (Auto) 0.1 WBC Differential . Differential Comment Auto diff final Sodium 142 Potassium 4.1 Chloride 104 Carbon Dioxide 28.4 Anion Gap 10 BUN 45 H Creatinine 1.30 Estimated GFR 56 L POC Glucose 109 Random Glucose 105 Calcium 8.5 - Imaging Impressions Abdomen/Bladder Ultrasound 05/02/18 09:14 CONCLUSION: 1. Asymmetrical renal size with small right kidney. 2. No sonographic evidence for obstructive uropathy. Assessment and Plan - Plan 62-year-old male admitted secondary to CHF exacerbation CHF exacerbation IV Bumex continued Monitor clinically for improvement in fluid retention Supplemental oxygen as needed Acute on chronic renal failure Improved with diuresis Continue to monitor renal function Nephrology following Atrial fibrillation Continue Xarelto Continue baseline treatments COPD Obstructive sleep apnea Continue nocturnal CPAP Continue home medications Diabetes mellitus type 2 Follow blood sugars Insulin sliding scale Diabetic diet Hypertension Continue baseline treatment Follow blood pressures Adjust treatments as needed Hyperlipidemia Continue present treatment Follow as an outpatient DVT prophylaxis Xarelto
[2018-05-04] MEDS: Heparin - SQ 10,000 UNITS/ML Vial SQ SCH ×2 (05:47→19:56)
[2018-05-04] MEDS: Insulin NovoLOG Aspart Correctional Sugar Inj SQ SCH ×4 (06:51→21:00)
[2018-05-04 10:37] LABS: Baso # (Auto) 0.1 th/mm3 (0.0-0.2); Baso % (Auto) 1.2 % (0.0-2.0); Eos # (Auto) 0.1 th/mm3 (0.0-0.4); Eos % (Auto) 2.1 % (0.0-4.0); Hematocrit 26.7 % (39.0-51.0); Hemoglobin 7.8 gm/dL (13.0-17.0); Lymph # (Auto) 0.4 th/mm3 (1.0-4.8); Lymph % (Auto) 7.6 % (9.0-44.0); Mean Corpuscular Hemoglobin 25.5 pg (27.0-34.0); Mean Corpuscular Volume 87.1 fL (80.0-100.0); Mean Platelet Volume 7.2 fL (7.0-11.0); Mono # (Auto) 0.4 th/mm3 (0.0-0.9); Mono % (Auto) 7.3 % (0.0-8.0); Neut # (Auto) 4.7 th/mm3 (1.8-7.7); Neut % (Auto) 81.8 % (16.0-70.0); Platelet Count 207 th/mm3 (150-450); Red Blood Count 3.07 mil/mm3 (4.50-5.90); Red Cell Distribution Width 19.2 % (11.6-17.2); White Blood Count 5.8 th/mm3 (4.0-11.0)
[2018-05-04 10:41] LABS: Mean Corpuscular HGB Conc 29.3 % (32.0-36.0)
[2018-05-04 10:56] LABS: Alanine Aminotransferase 25 U/L (12-78); Albumin 3.1 g/dL (3.4-5.0); Anion Gap 5 meq/L (5-15); Aspartate Aminotransferase 30 U/L (15-37); Blood Urea Nitrogen 36 mg/dL (7-18); Calcium 8.6 mg/dL (8.5-10.1); Carbon Dioxide 33.8 meq/L (21.0-32.0); Chloride 102 meq/L (98-107); Glomerular Filtration Rate 59 mL/min (>89); Glucose,Random 103 mg/dL (74-106); Potassium 3.9 meq/L (3.5-5.1); Sodium 141 meq/L (136-145)
[2018-05-04 10:58] LABS: Alkaline Phosphatase 219 U/L (45-117); Total Protein 6.6 g/dL (6.4-8.2)
--- NOTE | 2018-05-04 11:12 | P.PNIM ---
Subjective Interval history: Anemia remains. No further downward trend in hemoglobin today. Stool studies pending for blood testing. Patient has no new complaints. Shortness of breath remains. Physical Exam Vital signs: Vital Signs 05/03/18 12:00 05/03/18 16:48 05/03/18 20:00 Temperature 98.3 F 98.0 F Pulse Rate 103 H 102 H 104 H Respiratory Rate 18 18 Blood Pressure 117/59 L 132/87 Pulse Oximetry 98 97 05/03/18 22:12 05/04/18 00:00 05/04/18 04:00 Temperature 98.1 F 98.2 F Pulse Rate 103 H 100 H 101 H Respiratory Rate 21 23 23 Blood Pressure 121/70 136/92 H 121/61 Pulse Oximetry 99 94 L 96 05/04/18 08:00 Temperature 98.6 F Pulse Rate 102 H Respiratory Rate 20 Blood Pressure 117/60 Pulse Oximetry 99 Intake & Output 05/03/18 05/04/18 05/04/18 18:59 06:59 18:59 Intake Total 740 / 740 Output Total 1050 / 1050 1000 / 1000 Balance -310 / -310 -1000 / -1000 Intake: Oral 740 / 740 Output: Urine 1050 / 1050 1000 / 1000 Other: # Bowel Movements 0 Narrative: GENERAL: NAD, A&Ox3 HEAD: Normocephalic. NECK: Supple, trachea midline. No lymphadenopathy. EYES: No scleral icterus. No injection or drainage. CARDIOVASCULAR: Regular rate and rhythm without murmurs, gallops, or rubs. RESPIRATORY: Breath sounds equal bilaterally. No accessory muscle use. Crackles at bases bilaterally. GASTROINTESTINAL: Abdomen soft, non-tender, nondistended. MUSCULOSKELETAL: No cyanosis, bilateral lower extremity edema. SKIN: Warm and dry. NEURO: No focal neurological deficits. Results - Labs CBC & Chem 7: 05/04/18 08:35 05/04/18 08:35 Laboratory Results - last 24 hr 05/03/18 05/03/18 05/04/18 15:24 18:19 05:53 WBC RBC Hgb Hct MCV MCH MCHC RDW Plt Count MPV Neut % (Auto) Lymph % (Auto) [place] % (Auto) Eos % (Auto) Baso % (Auto) Neut # (Auto) Lymph # (Auto) [place] # (Auto) Eos # (Auto) Baso # (Auto) WBC Differential Differential Comment Sodium Potassium Chloride Carbon Dioxide Anion Gap BUN Creatinine Estimated GFR POC Glucose 137 H 103 119 H Random Glucose Calcium Total Bilirubin AST ALT Alkaline Phosphatase Total Protein Albumin 05/04/18 05/04/18 05/04/18 08:27 08:35 08:35 WBC 5.8 RBC 3.07 L Hgb 7.8 L Hct 26.7 L MCV 87.1 MCH 25.5 L MCHC 29.3 L RDW 19.2 H Plt Count 207 MPV 7.2 Neut % (Auto) 81.8 H Lymph % (Auto) 7.6 L [place] % (Auto) 7.3 Eos % (Auto) 2.1 Baso % (Auto) 1.2 Neut # (Auto) 4.7 Lymph # (Auto) 0.4 L [place] # (Auto) 0.4 Eos # (Auto) 0.1 Baso # (Auto) 0.1 WBC Differential . Differential Comment Auto diff final Sodium 141 Potassium 3.9 Chloride 102 Carbon Dioxide 33.8 H Anion Gap 5 BUN 36 H Creatinine 1.24 Estimated GFR 59 L POC Glucose 126 H Random Glucose 103 Calcium 8.6 Total Bilirubin 1.2 H AST 30 ALT 25 Alkaline Phosphatase 219 H Total Protein 6.6 Albumin 3.1 L Assessment and Plan - Plan 62-year-old male admitted secondary to CHF exacerbation Continue diuresis. Continue monitoring clinically for improvement in peripheral edema. Stool studies pending for evaluation of occult blood in stool. Monitor CBC. Anemia Acute blood loss anemia Stool study to evaluate for blood Consider transfusion if anemia progresses CHF exacerbation IV Bumex continued Monitor clinically for improvement in fluid retention Supplemental oxygen as needed Acute on chronic renal failure Improved with diuresis Continue to monitor renal function Nephrology following Atrial fibrillation Continue Xarelto Continue baseline treatments COPD Obstructive sleep apnea Continue nocturnal CPAP Continue home medications Diabetes mellitus type 2 Follow blood sugars Insulin sliding scale Diabetic diet Hypertension Continue baseline treatment Follow blood pressures Adjust treatments as needed Hyperlipidemia Continue present treatment Follow as an outpatient DVT prophylaxis Xarelto
--- NOTE | 2018-05-04 20:01 | ECG ---
Date Performed: 05/01/2018 Time Performed: 23:49:05 PTAGE: 62 years EKG: Sinus rhythm WITH FIRST DEGREE AV BLOCK RIGHT BUNDLE BRANCH BLOCK ABNORMAL ECG PREVIOUS TRACING : 12/23/2017 12.23 Since the previous tracing, no significant change noted DOCTOR: Johnny Caputo Interpretating Date/Time 05/04/2018 19:57:45
[2018-05-04] MEDS: ALPRAZolam 0.25 MG Tablet PO PRN (21:25)
[2018-05-05] MEDS: Insulin NovoLOG Aspart Correctional Sugar Inj SQ SCH ×5 (03:00→22:47)
[2018-05-05] MEDS: Heparin - SQ 10,000 UNITS/ML Vial SQ SCH (03:57)
[2018-05-05 09:03] LABS: Baso # (Auto) 0.1 th/mm3 (0.0-0.2); Baso % (Auto) 1.4 % (0.0-2.0); Eos # (Auto) 0.2 th/mm3 (0.0-0.4); Eos % (Auto) 2.6 % (0.0-4.0); Hematocrit 27.2 % (39.0-51.0); Hemoglobin 8.1 gm/dL (13.0-17.0); Lymph # (Auto) 0.5 th/mm3 (1.0-4.8); Mean Corpuscular Volume 87.3 fL (80.0-100.0); Mean Platelet Volume 7.3 fL (7.0-11.0); Mono # (Auto) 0.5 th/mm3 (0.0-0.9); Mono % (Auto) 8.2 % (0.0-8.0); Neut # (Auto) 4.7 th/mm3 (1.8-7.7); Neut % (Auto) 78.8 % (16.0-70.0); Platelet Count 212 th/mm3 (150-450); Red Blood Count 3.11 mil/mm3 (4.50-5.90); Red Cell Distribution Width 19.1 % (11.6-17.2)
[2018-05-05 09:10] LABS: Mean Corpuscular HGB Conc 29.7 % (32.0-36.0)
[2018-05-05 09:51] LABS: Albumin 3.3 g/dL (3.4-5.0); Anion Gap 7 meq/L (5-15); Aspartate Aminotransferase 31 U/L (15-37); Blood Urea Nitrogen 31 mg/dL (7-18); Calcium 8.8 mg/dL (8.5-10.1); Carbon Dioxide 33.6 meq/L (21.0-32.0); Chloride 100 meq/L (98-107); Glomerular Filtration Rate 65 mL/min (>89); Glucose,Random 103 mg/dL (74-106); Sodium 141 meq/L (136-145)
[2018-05-05 09:52] LABS: Alanine Aminotransferase 26 U/L (12-78)
[2018-05-05 09:54] LABS: Alkaline Phosphatase 230 U/L (45-117); Total Protein 6.8 g/dL (6.4-8.2)
--- NOTE | 2018-05-05 13:30 | P.PN ---
Subjective Interval history: awake and alert,. states feeling better telemetry- in a fib rate 110-120s no fever 02 dependent baseline uses a walker and has 2 canes activity limited by his weight and cardiopulmoary status patient states he was trying to get up from bed and slid down on the floor and unabel to get up- aramedics got called denides anysynocpal episode Physical Exam Vital signs: Vital Signs 05/04/18 16:00 05/04/18 20:00 05/04/18 20:19 Temperature 98.6 F 98.7 F Pulse Rate 100 H 103 H Respiratory Rate 16 23 Blood Pressure 130/59 L 136/64 Pulse Oximetry 99 96 96 05/04/18 21:15 05/04/18 21:30 05/04/18 22:44 Temperature Pulse Rate 101 H Respiratory Rate Blood Pressure Pulse Oximetry 96 98 05/05/18 00:00 05/05/18 00:57 05/05/18 01:33 Temperature 98.2 F Pulse Rate 107 H 98 H Respiratory Rate 23 Blood Pressure 138/76 Pulse Oximetry 97 97 05/05/18 04:00 05/05/18 04:01 05/05/18 04:10 Temperature 98.3 F Pulse Rate 103 H 100 H Respiratory Rate 19 Blood Pressure 104/57 L Pulse Oximetry 97 96 05/05/18 06:59 05/05/18 08:00 05/05/18 12:04 Temperature 98.5 F 98.8 F Pulse Rate 101 H 102 H 106 H Respiratory Rate 16 16 Blood Pressure 128/58 L 128/77 Pulse Oximetry 100 90 L Intake & Output 05/04/18 05/05/18 05/05/18 18:59 06:59 18:59 Output Total 750 / 750 Balance -750 / -750 Output: Urine 750 / 750 Other: Date of Last Bowel Movement 05/04/18 Narrative: GENERAL: NAD, A&Ox3 HEAD: Normocephalic. NECK: Supple, trachea midline. No lymphadenopathy. EYES: No scleral icterus. No injection or drainage. CARDIOVASCULAR: irregularly irregular rhythm- HR 110s RESPIRATORY: Breath sounds equal bilaterally. No accessory muscle use. no wheezes, no rales GASTROINTESTINAL: Abdomen soft, non-tender, enlarged MUSCULOSKELETAL: No cyanosis, bilateral lower extremity edema +. SKIN: Warm and dry. NEURO: No focal neurological deficits. Results - Labs CBC & Chem 7: 05/05/18 08:07 05/05/18 08:07 Laboratory Results - last 24 hr 05/04/18 05/04/18 05/04/18 13:18 18:36 21:20 WBC RBC Hgb Hct MCV MCH MCHC RDW Plt Count MPV Neut % (Auto) Lymph % (Auto) [place] % (Auto) Eos % (Auto) Baso % (Auto) Neut # (Auto) Lymph # (Auto) [place] # (Auto) Eos # (Auto) Baso # (Auto) WBC Differential Differential Comment Sodium Potassium Chloride Carbon Dioxide Anion Gap BUN Creatinine Estimated GFR POC Glucose 112 H 106 131 H Random Glucose Calcium Total Bilirubin AST ALT Alkaline Phosphatase Total Protein Albumin 05/05/18 05/05/18 05/05/18 03:57 07:39 08:07 WBC 6.0 RBC 3.11 L Hgb 8.1 L Hct 27.2 L MCV 87.3 MCH 26.0 L MCHC 29.7 L RDW 19.1 H Plt Count 212 MPV 7.3 Neut % (Auto) 78.8 H Lymph % (Auto) 9.0 [place] % (Auto) 8.2 H Eos % (Auto) 2.6 Baso % (Auto) 1.4 Neut # (Auto) 4.7 Lymph # (Auto) 0.5 L [place] # (Auto) 0.5 Eos # (Auto) 0.2 Baso # (Auto) 0.1 WBC Differential . Differential Comment Auto diff final Sodium Potassium Chloride Carbon Dioxide Anion Gap BUN Creatinine Estimated GFR POC Glucose 111 H 114 H Random Glucose Calcium Total Bilirubin AST ALT Alkaline Phosphatase Total Protein Albumin 05/05/18 05/05/18 08:07 12:35 WBC RBC Hgb Hct MCV MCH MCHC RDW Plt Count MPV Neut % (Auto) Lymph % (Auto) [place] % (Auto) Eos % (Auto) Baso % (Auto) Neut # (Auto) Lymph # (Auto) [place] # (Auto) Eos # (Auto) Baso # (Auto) WBC Differential Differential Comment Sodium 141 Potassium 4.0 Chloride 100 Carbon Dioxide 33.6 H Anion Gap 7 BUN 31 H Creatinine 1.14 Estimated GFR 65 L POC Glucose 119 H Random Glucose 103 Calcium 8.8 Total Bilirubin 1.4 H AST 31 ALT 26 Alkaline Phosphatase 230 H Total Protein 6.8 Albumin 3.3 L Assessment and Plan - Plan 62-year-old male admitted secondary to CHF exacerbation per patient he was trying to get out of bed then slid on the floor- no syncopal episode and brought in by paramedicis acute on chronic CHF diastolic exacerbation-- EF 50-55% from 12/2017 echo chronic Atrial fibrillation- in RVR Continue Xarelto 20 mg daily- ordered today. restart his Cardizem at 240 mg daily IV Bumex continued- change to po 1 mg po bid starting tomorrow Monitor clinically for improvement in fluid retention Supplemental oxygen as needed per patient as OP was on both Lasxxi and bumex reviewed last admisision 12/2017- was DC on Cardizem CD 240 mg daily and Digoxin 0.125 mg daily but bedside = thinks was sounds like on metorprol consider po Cardizem 240 here and monitor today Anemia- chronic- reviewed HH- near baseline Stool study to evaluate for blood Consider transfusion if anemia progresses get iron studies Acute on chronic renal failure Improved with diuresis- change to po bumex Continue to monitor renal function COPD Obstructive sleep apnea Continue nocturnal CPAP Continue home medications Diabetes mellitus type 2 Follow blood sugars Insulin sliding scale Diabetic diet Hypertension Continue baseline treatment Follow blood pressures Adjust treatments as needed Hyperlipidemia Continue present treatment Follow as an outpatient DVT prophylaxis Xarelto Increase Activity- PT consult
[2018-05-05] MEDS: Rivaroxaban 20 MG Tablet PO SCH (17:13)
[2018-05-05 17:55] LABS: % Iron Saturation 5.7 % (20-50)
[2018-05-05] MEDS: ALPRAZolam 0.25 MG Tablet PO PRN (22:47)
[2018-05-06] MEDS: Insulin NovoLOG Aspart Correctional Sugar Inj SQ SCH ×5 (03:56→21:21)
[2018-05-06] MEDS: ALPRAZolam 0.25 MG Tablet PO PRN ×2 (12:18→18:16)
--- NOTE | 2018-05-06 17:41 | P.PN ---
Subjective Interval history: telemetry reviewed- rate in the low 100- 110 no complains up and ambualting to bathroom had a good bowel movement this pm Physical Exam Vital signs: Vital Signs 05/05/18 20:00 05/06/18 00:00 05/06/18 03:57 Temperature 98.9 F 98.2 F Pulse Rate 111 H 105 H Respiratory Rate 16 20 Blood Pressure 127/65 123/63 Pulse Oximetry 97 97 100 05/06/18 08:00 05/06/18 11:26 05/06/18 11:27 Temperature 98.0 F Pulse Rate 106 H 102 H Respiratory Rate 16 Blood Pressure 125/60 Pulse Oximetry 98 05/06/18 12:01 05/06/18 16:00 05/06/18 17:26 Temperature 97.8 F Pulse Rate 104 H 113 H Respiratory Rate 22 22 Blood Pressure 122/58 L 124/72 Pulse Oximetry 100 94 L 97 Intake & Output 05/05/18 05/06/18 05/06/18 18:59 06:59 18:59 Intake Total 240 / 240 720 / 720 Output Total 700 / 700 600 / 600 875 / 875 Balance -700 / -700 -360 / -360 -155 / -155 Intake: Oral 240 / 240 720 / 720 Output: Urine 700 / 700 600 / 600 875 / 875 Other: # Voids 2 Date of Last Bowel Movement 05/04/18 Narrative: A&Ox3 HEAD: Normocephalic. NECK: Supple, trachea midline. No lymphadenopathy. EYES: No scleral icterus. No injection or drainage. CARDIOVASCULAR: irregularly irregular rhythm- HR 110 RESPIRATORY: Breath sounds equal bilaterally. No accessory muscle use. no wheezes, no rales GASTROINTESTINAL: Abdomen soft, non-tender, enlarged MUSCULOSKELETAL: No cyanosis, bilateral lower extremity edema +. SKIN: Warm and dry. NEURO: No focal neurological deficits. Results - Labs CBC & Chem 7: 05/05/18 08:07 05/05/18 08:07 Laboratory Results - last 24 hr 05/05/18 05/05/18 05/06/18 08:07 22:43 03:53 POC Glucose 126 H 128 H Iron 27 L TIBC 477 H % Saturation 5.7 L Ferritin 48 05/06/18 05/06/18 05/06/18 08:19 12:19 16:42 POC Glucose 120 H 106 145 H Iron TIBC % Saturation Ferritin Assessment and Plan - Plan 62-year-old male admitted secondary to CHF exacerbation per patient he was trying to get out of bed then slid on the floor- no syncopal episode and brought in by paramedicis acute on chronic CHF diastolic exacerbation-- EF 50-55% from 12/2017 echo chronic Atrial fibrillation- in RVR Continue Xarelto 20 mg daily- ordered today.05/05 start Cardizem at 240 mg daily change to po 1 mg po bid 05/06 Monitor clinically for improvement in fluid retention Supplemental oxygen as needed per patient as OP was on both Lasxxi and bumex reviewed last admisision 12/2017- was DC on Cardizem CD 240 mg daily and Digoxin 0.125 mg daily but bedside = thinks was sounds like was on metoprolol too start cardizem CD 180 today and monitor Anemia- chronic- reviewed HH- near baseline low iron stores Stool study to evaluate for blood Consider transfusion if anemia progresses H and H stable start Ferrous sulfate 325 mg pob id Acute on chronic renal failure Improved with diuresis- change to po bumex Continue to monitor renal function COPD Obstructive sleep apnea Continue nocturnal CPAP Continue home medications Diabetes mellitus type 2 Follow blood sugars Insulin sliding scale Diabetic diet Hypertension Continue baseline treatment Follow blood pressures Adjust treatments as needed Hyperlipidemia Continue present treatment Follow as an outpatient DVT prophylaxis Xarelto Increase Activity- PT consult
[2018-05-06] MEDS: Rivaroxaban 20 MG Tablet PO SCH (17:45)
[2018-05-06] MEDS: dilTIAZem CD 180 MG Capsule PO SCH (18:16)
[2018-05-06] MEDS: Ferrous Sulfate 325 MG Tablet PO SCH (21:20)
[2018-05-07] MEDS: Insulin NovoLOG Aspart Correctional Sugar Inj SQ SCH ×3 (04:09→14:19)
[2018-05-07] MEDS: dilTIAZem CD 180 MG Capsule PO SCH (08:51)
[2018-05-07] MEDS: Ferrous Sulfate 325 MG Tablet PO SCH ×2 (08:51→20:54)
[2018-05-07] MEDS: ALPRAZolam 0.25 MG Tablet PO PRN ×2 (08:52→15:24)
--- NOTE | 2018-05-07 12:51 | P.PN ---
Subjective Interval history: Acute on chronic diastolic CHF exacerbation May 07, 2018-patient seen and examined, denies any significant shortness of breath. Only used BiPAP 2 hours overnight. Physical Exam Vital signs: Vital Signs 05/06/18 15:00 05/06/18 16:00 05/06/18 17:00 Temperature 97.8 F Pulse Rate 110 H 104 H 116 H Respiratory Rate 22 Blood Pressure 124/72 Pulse Oximetry 94 L 05/06/18 17:26 05/06/18 18:00 05/06/18 19:00 Temperature Pulse Rate 112 H 118 H Respiratory Rate Blood Pressure Pulse Oximetry 97 05/06/18 19:30 05/06/18 20:00 05/06/18 21:00 Temperature 98.6 F Pulse Rate 100 H 108 H 104 H Respiratory Rate 20 Blood Pressure 135/79 Pulse Oximetry 96 05/06/18 22:00 05/06/18 23:00 05/06/18 23:19 Temperature 98.2 F Pulse Rate 102 H 111 H 103 H Respiratory Rate 22 Blood Pressure 140/74 Pulse Oximetry 96 05/06/18 23:54 05/07/18 00:00 05/07/18 01:00 Temperature Pulse Rate 102 H 104 H Respiratory Rate Blood Pressure Pulse Oximetry 95 05/07/18 02:00 05/07/18 03:00 05/07/18 03:55 Temperature 98.2 F Pulse Rate 100 H 100 H 101 H Respiratory Rate 22 Blood Pressure 112/63 Pulse Oximetry 94 L 05/07/18 07:00 05/07/18 08:00 05/07/18 09:00 Temperature 98.1 F Pulse Rate 101 H 92 H 96 H Respiratory Rate 20 Blood Pressure 144/71 H Pulse Oximetry 96 05/07/18 10:00 05/07/18 11:00 Temperature 97.4 F L Pulse Rate 94 H 87 Respiratory Rate 20 Blood Pressure 121/63 Pulse Oximetry 99 Intake & Output 05/06/18 05/07/18 05/07/18 18:59 06:59 18:59 Intake Total 1080 / 1080 460 / 460 Output Total 875 / 875 50 / 50 Balance 205 / 205 410 / 410 Weight 163.3 kg Intake: Oral 1080 / 1080 460 / 460 Output: Urine 875 / 875 50 / 50 Other: # Voids 1 2 Date of Last Bowel Movement 08/05/06/18 05/06/18 # Bowel Movements 1 Narrative: A&Ox3 HEAD: Normocephalic. NECK: Supple, trachea midline. No lymphadenopathy. EYES: No scleral icterus. No injection or drainage. CARDIOVASCULAR: irregularly irregular rhythm- RESPIRATORY: Breath sounds equal bilaterally. No accessory muscle use. no wheezes, no rales GASTROINTESTINAL: Abdomen soft, non-tender, enlarged MUSCULOSKELETAL: No cyanosis, bilateral lower extremity edema +. SKIN: Warm and dry. NEURO: No focal neurological deficits. Results - Labs CBC & Chem 7: 05/05/18 08:07 05/05/18 08:07 Laboratory Results - last 24 hr 05/06/18 05/06/18 05/07/18 16:42 21:18 03:54 POC Glucose 145 H 129 H 136 H 05/07/18 05/07/18 07:16 11:03 POC Glucose 119 H 120 H Assessment and Plan - Plan acute on chronic CHF diastolic exacerbation-- EF 50-55% from 12/2017 echo chronic Atrial fibrillation- in RVR Continue Xarelto 20 mg daily- Continue Cardizem CD 180 mg daily, Bumex twice daily Awaiting for the complete list outpatient medication Anemia- chronic- reviewed HH- near baseline low iron stores H and H stable Continue ferrous sulfate 325 mg pob id Acute on chronic renal failure Improved with diuresis Continue to monitor renal function COPD Obstructive sleep apnea Continue nocturnal CPAP Continue home medications Diabetes mellitus type 2 Patient denies any known history of diabetes type 2, and previous A1c within normal limits, therefore will discontinue current treatment Hypertension Continue baseline treatment Currently on Cardizem CD Adjust treatments as needed Hyperlipidemia Continue present treatment Follow as an outpatient DVT prophylaxis Xarelto Transfer to [facility]
[2018-05-07] MEDS ORDERED: Haloperidol Inj 5 MG/ML Ampul IV.PUSH PRN (15:39)
[2018-05-07] MEDS ORDERED: LORazepam 1 MG Tablet PO PRN (15:39)
[2018-05-07] MEDS: Rivaroxaban 20 MG Tablet PO SCH (17:11)
[2018-05-08] MEDS: Ferrous Sulfate 325 MG Tablet PO SCH ×2 (08:41→20:58)
[2018-05-08] MEDS: dilTIAZem CD 180 MG Capsule PO SCH (08:41)
--- NOTE | 2018-05-08 16:01 | P.PN ---
Subjective Interval history: Nursing denies any deterioration since last night. Patient himself says he feels not good however. When I asked him specify says he did have bad sleep last night. When asking to sit up he actually has trouble sitting up just to hang his legs off the side of the bed. Physical Exam Vital signs: Vital Signs 05/07/18 16:00 05/07/18 17:00 05/07/18 17:44 Temperature Pulse Rate 92 H 92 H Respiratory Rate Blood Pressure Pulse Oximetry 93 L 05/07/18 18:00 05/07/18 20:00 05/08/18 00:00 Temperature 98.3 F Pulse Rate 105 H 106 H 99 H Respiratory Rate 22 Blood Pressure 137/73 Pulse Oximetry 95 05/08/18 04:00 05/08/18 05:19 05/08/18 08:00 Temperature 97.5 F L 97.4 F L Pulse Rate 103 H 104 H 101 H Respiratory Rate 22 20 Blood Pressure 102/53 L 116/70 Pulse Oximetry 94 L 96 05/08/18 12:00 Temperature 97.4 F L Pulse Rate 92 H Respiratory Rate 20 Blood Pressure 114/72 Pulse Oximetry 96 Intake & Output 05/07/18 05/08/18 05/08/18 18:59 06:59 18:59 Intake Total 480 / 480 100 / 100 Output Total 400 / 400 300 / 300 Balance 80 / 80 -200 / -200 Weight 163 kg Intake: Oral 480 / 480 100 / 100 Output: Urine 400 / 400 300 / 300 Other: # Incontinent Voids 1 Date of Last Bowel Movement 05/06/18 Narrative: Heart sounds regular rhythm, no murmurs Lungs are clear bilaterally with unlabored breathing On nasal cannula Moderate to severe bilateral lower extremity edema Results - Labs CBC & Chem 7: 05/05/18 08:07 05/05/18 08:07 Assessment and Plan - Plan acute on chronic CHF diastolic exacerbation-- EF 50-55% from 12/2017 echo chronic Atrial fibrillation- in RVR Continue Xarelto 20 mg daily- Continue Cardizem CD 180 mg daily, Bumex twice daily Awaiting for the complete list outpatient medication Deconditioning/weakness -Check BMP, cbc, creatinine kinase, magnesium, phosphorus levels -reconsulting PT Anemia- chronic- reviewed HH- near baseline low iron stores H and H stable Continue ferrous sulfate 325 mg pob id Acute on chronic renal failure Improved with diuresis Rechecking renal function COPD Obstructive sleep apnea Continue nocturnal CPAP Continue home medications Diabetes mellitus type 2 Stable Hypertension Continue baseline treatment Currently on Cardizem CD Adjust treatments as needed Hyperlipidemia Continue present treatment Follow as an outpatient DVT prophylaxis Xarelto
[2018-05-08 17:06] LABS: Baso # (Auto) 0.1 th/mm3 (0.0-0.2); Baso % (Auto) 1.4 % (0.0-2.0); Eos # (Auto) 0.1 th/mm3 (0.0-0.4); Eos % (Auto) 0.8 % (0.0-4.0); Hematocrit 28.2 % (39.0-51.0); Hemoglobin 8.2 gm/dL (13.0-17.0); Lymph # (Auto) 0.8 th/mm3 (1.0-4.8); Lymph % (Auto) 8.5 % (9.0-44.0); Mean Corpuscular Hemoglobin 25.5 pg (27.0-34.0); Mean Platelet Volume 7.4 fL (7.0-11.0); Mono # (Auto) 1.2 th/mm3 (0.0-0.9); Mono % (Auto) 12.4 % (0.0-8.0); Neut # (Auto) 7.1 th/mm3 (1.8-7.7); Neut % (Auto) 76.9 % (16.0-70.0); Platelet Count 290 th/mm3 (150-450); White Blood Count 9.3 th/mm3 (4.0-11.0)
[2018-05-08 17:10] LABS: Mean Corpuscular HGB Conc 28.9 % (32.0-36.0)
[2018-05-08 17:40] LABS: Calcium 8.5 mg/dL (8.5-10.1); Magnesium 2.2 mg/dL (1.5-2.5); Phosphorus 5.6 mg/dL (2.5-4.9); Potassium 4.9 meq/L (3.5-5.1)
[2018-05-08] MEDS: Rivaroxaban 20 MG Tablet PO SCH (18:47)
[2018-05-08] MEDS: Budesonide-Formoterol 160/4.5 MCG 6 GM Inhaler INH SCH (20:59)
[2018-05-09] MEDS: ALPRAZolam 0.25 MG Tablet PO PRN ×2 (06:20→20:50)
[2018-05-09] MEDS: dilTIAZem CD 180 MG Capsule PO SCH (09:25)
[2018-05-09] MEDS: Ferrous Sulfate 325 MG Tablet PO SCH ×2 (09:25→20:50)
[2018-05-09] MEDS: Budesonide-Formoterol 160/4.5 MCG 6 GM Inhaler INH SCH ×2 (09:25→20:50)
--- NOTE | 2018-05-09 15:17 | P.PN ---
Subjective Interval history: Nursing denies any deterioration since last night. Patient himself thinks that his shortness of breath is better since admission. Otherwise has no new complaints. Physical Exam Vital signs: Vital Signs 05/08/18 16:00 05/08/18 19:00 05/08/18 20:46 Temperature 98.4 F 98.1 F Pulse Rate 88 95 H 92 H Respiratory Rate 24 17 Blood Pressure 107/76 98/46 L Pulse Oximetry 95 91 L 05/08/18 23:00 05/09/18 01:04 05/09/18 04:00 Temperature 98 F 98 F Pulse Rate 92 H 90 90 Respiratory Rate 17 16 Blood Pressure 104/58 L 101/49 L Pulse Oximetry 91 L 92 L 05/09/18 08:00 05/09/18 13:48 Temperature 98 F Pulse Rate 96 H Respiratory Rate 22 Blood Pressure 129/99 H Pulse Oximetry 99 99 Intake & Output 05/08/18 05/09/18 05/09/18 18:59 06:59 18:59 Intake Total 224 / 224 Balance 224 / 224 Weight 163.1 kg Intake: Oral 224 / 224 Other: # Voids 2 Narrative: Sitting up in chair, unlabored breathing, clear lungs bilaterally Has formed stool in the commode Results - Labs CBC & Chem 7: 05/08/18 16:36 05/08/18 16:36 Laboratory Results - last 24 hr 05/08/18 05/08/18 16:36 16:36 WBC 9.3 RBC 3.20 L Hgb 8.2 L Hct 28.2 L MCV 88.0 MCH 25.5 L MCHC 28.9 L RDW 20.0 H Plt Count 290 D MPV 7.4 Neut % (Auto) 76.9 H Lymph % (Auto) 8.5 L [place] % (Auto) 12.4 H Eos % (Auto) 0.8 Baso % (Auto) 1.4 Neut # (Auto) 7.1 Lymph # (Auto) 0.8 L [place] # (Auto) 1.2 H Eos # (Auto) 0.1 Baso # (Auto) 0.1 WBC Differential . Differential Comment Auto diff final Sodium 136 Potassium 4.9 Chloride 95 L Carbon Dioxide 32.0 Anion Gap 9 BUN 38 H Creatinine 2.37 H Estimated GFR 28 L Random Glucose 108 H Calcium 8.5 Phosphorus 5.6 H Magnesium 2.2 Total Creatine Kinase 40 Assessment and Plan - Plan acute on chronic CHF diastolic exacerbation-- EF 50-55% from 12/2017 echo chronic Atrial fibrillation- Continue Xarelto 20 mg daily- Continue Cardizem CD 180 mg daily, holding Bumex due to [place] I Awaiting for the complete list outpatient medication Deconditioning/weakness -Metabolic workup unremarkable except for acute kidney injury. Holding diuretic -Awaiting for PT to reevaluate the patient Acute on chronic kidney injury worsened again while on bumex, holding diuretic, recheck in a.m. Anemia- chronic- reviewed HH- near baseline low iron stores H and H stable Continue ferrous sulfate 325 mg pob id COPD Obstructive sleep apnea Continue nocturnal CPAP Continue home medications Diabetes mellitus type 2 Stable Hypertension Continue baseline treatment Currently on Cardizem CD Adjust treatments as needed Hyperlipidemia Continue present treatment Follow as an outpatient DVT prophylaxis Xarelto
[2018-05-09] MEDS: Rivaroxaban 15 MG Tablet PO SCH (18:00)
[2018-05-10] MEDS: dilTIAZem CD 180 MG Capsule PO SCH (08:00)
[2018-05-10] MEDS: Budesonide-Formoterol 160/4.5 MCG 6 GM Inhaler INH SCH ×2 (08:00→20:44)
[2018-05-10] MEDS: Ferrous Sulfate 325 MG Tablet PO SCH ×2 (08:00→20:44)
[2018-05-10 14:49] LABS: Calcium 8.5 mg/dL (8.5-10.1); Carbon Dioxide 30.4 meq/L (21.0-32.0); Potassium 4.9 meq/L (3.5-5.1)
--- NOTE | 2018-05-10 16:18 | P.PN ---
Subjective Interval history: Nursing denies any deterioration since last night. Patient himself has no new complaints. Says he would rather go home than rehab. Will function today seems to be actually getting worse unfortunately despite holding diuretics. Physical Exam Vital signs: Vital Signs 05/09/18 19:55 05/09/18 20:00 05/09/18 23:50 Temperature 98.6 F Pulse Rate 82 84 90 Respiratory Rate 20 Blood Pressure 112/56 L Pulse Oximetry 95 05/10/18 00:00 05/10/18 04:00 05/10/18 04:06 Temperature 97.2 F L 97.7 F Pulse Rate 89 84 80 Respiratory Rate 20 20 Blood Pressure 103/56 L 116/54 L Pulse Oximetry 94 L 94 L 05/10/18 08:00 05/10/18 12:00 Temperature 97.9 F 97.4 F L Pulse Rate 83 84 Respiratory Rate 17 18 Blood Pressure 135/60 107/56 L Pulse Oximetry 97 95 Intake & Output 05/09/18 05/10/18 05/10/18 18:59 06:59 18:59 Intake Total 240 / 240 Output Total 200 / 200 Balance 40 / 40 Weight 167.4 kg Intake: Oral 240 / 240 Output: Urine 200 / 200 Other: Date of Last Bowel Movement 05/06/18 # Bowel Movements 0 Narrative: Heart sounds regular rate rhythm, no murmurs Sleeping, awoken easily, no acute distress, unlabored breathing Clear lungs bilaterally, unlabored breathing Results - Labs CBC & Chem 7: 05/08/18 16:36 05/10/18 13:29 Laboratory Results - last 24 hr 05/10/18 05/10/18 10:20 13:29 Sodium 135 L Potassium 4.9 Chloride 94 L Carbon Dioxide 30.4 Anion Gap 11 BUN 55 H Creatinine 2.67 H Estimated GFR 24 L POC Glucose 169 H Random Glucose 119 H Calcium 8.5 Assessment and Plan - Plan acute on chronic CHF diastolic exacerbation-- EF 50-55% from 12/2017 echo chronic Atrial fibrillation- Continue Xarelto 20 mg daily- Continue Cardizem CD 180 mg daily, holding Bumex due to [place] I Deconditioning/weakness -Possibly due to inactivity, seems to be a little bit improved today overall and activity level, wants to go home instead of rehab Acute on chronic kidney injury Continues to worsen despite holding diuretic, will start low rate of IV fluids with albumin and consult nephrology, will recheck in a.m. Anemia- chronic- reviewed HH- near baseline low iron stores H and H stable Continue ferrous sulfate 325 mg pob id COPD Obstructive sleep apnea Continue nocturnal CPAP Continue home medications Diabetes mellitus type 2 Stable Hypertension Continue baseline treatment Currently on Cardizem CD Adjust treatments as needed Hyperlipidemia Continue present treatment Follow as an outpatient DVT prophylaxis Xarelto
[2018-05-10] MEDS: Rivaroxaban 15 MG Tablet PO SCH (17:25)
[2018-05-10] MEDS: Albumin Human 25% Inj 50 ML IV.SIG SCH (17:25)
--- NOTE | 2018-05-10 20:56 | P.CONNP ---
<RaymonNaye - Last Filed: 05/10/18 20:39> History of Present Illness Service: Nephrology Consult date: 05/10/18 Requesting Physician: Holden Jama Reason for Consult: Acute kidney injury Primary Care Provider: UNKNOWN History of Present Illness: Patient is a 62-year-old male with a past medical history of atrial fibrillation on Xarelto, chronic diastolic heart failure ejection fraction 55%, COPD, DENIS on CPAP, hyperlipidemia, venous stasis, hypertension, CKD stage III, diabetes mellitus and chronic lower back pain. Presents to the emergency department for the evaluation of a fall and increasing worsening shortness of breath/deconditioning. Nephrology is consulted for worsening renal function with creatinine of 2.67. Per records has chronic kidney disease but creatinine noted to be 0.88 in December of 2017. Has been on diuretics which are on hold now with increasing creatinine. Continues to have tight edema in abdominal region and upper legs. Review of Systems Constitutional: Reports weakness, Reports weight gain Cardiovascular: Denies chest pain Respiratory: Reports shortness of breath with activity, Denies cough Gastrointestinal: Denies abdominal pain, Denies nausea, Denies vomiting Musculoskeletal: Reports muscle weakness PMFSH - History History Provided By: Patient - Medical History Medical History: Medical History (Last Reviewed 05/10/18 @ 08:31 by Arthur Dave) Chronic kidney disease, stage III (moderate) (Acute) Hyperlipidemia (Acute) Hypertension (Acute) DENIS (obstructive sleep apnea) (Acute) COPD (chronic obstructive pulmonary disease) (Acute) Atrial fibrillation CHF (congestive heart failure) Diabetes mellitus - Surgical History Surgical History: Surgical History (Last Reviewed 05/10/18 @ 08:31 by Arthur Dave) History of surgery on arm (Acute) Hx of tonsillectomy (Acute) H/O cardiac radiofrequency ablation (Acute) History of appendectomy (Acute) - Family History Family History: Family History (Last Reviewed 05/09/18 @ 10:25 by Ines Taylor RN) Other Diabetes mellitus Hypertension - Tobacco History Second Hand Smoke Exposure: No Smoking Status: Never smoker - Alcohol History How Often Do You Have a Drink Containing Alcohol: 2 to 3 times a week - Substance Use History Substance History: No History of Abuse - Travel History Recent Travel in the [place] Within the Last 8 Weeks: No Recent Travel Out of the Country Within the Last 8 Weeks: No - Immunization History Tetanus Immunization: <5 Years Hx Influenza Vaccine This Season: Yes Medications and Allergies Allergies Allergy/AdvReac Type Severity Reaction Status Date / Time No Known Allergies Allergy Unverified 05/01/18 23:13 Home Medications Medication Instructions Recorded Confirmed Type Unable to Obtain Home Meds 05/02/18 05/02/18 History Active Medications: Active Medications Acetaminophen (Tylenol) 650 mg PO Q4H PRN PRN Reason: Temp > 100.4 Last Admin: 05/08/18 03:56 Dose: 650 mg Albuterol (Duoneb Neb (Prn)) 1 ampul NEB Q4HR NEB PRN PRN Reason: SOB/Wheezing Alprazolam (Xanax) 0.25 mg PO Q6H PRN PRN Reason: ANXIETY Last Admin: 05/09/18 20:50 Dose: 0.25 mg Budesonide/Formoterol Fumarate (Symbicort 160/4.5 Mcg Inh) 2 puff INH BID [facility] Last Admin: 05/10/18 08:00 Dose: 2 puff Diltiazem HCl (Cardizem Cd 24hr) 180 mg PO DAILY [facility] Last Admin: 05/10/18 08:00 Dose: 180 mg Ferrous Sulfate (Ferosul) 325 mg PO BID [facility] Last Admin: 05/10/18 08:00 Dose: 325 mg Flumazenil (Romazecon Inj) 0.2 mg IV.PUSH Q1M PRN PRN Reason: OVERSEDATION Haloperidol Lactate (Haldol Inj) 1 mg IV.PUSH Q15M PRN PRN Reason: for severe agitation Albumin Human (Flexbumin 25% Inj) 50 mls @ 60 mls/hr IV.SIG Q12H [facility] Last Infusion: 05/10/18 18:29 Dose: Infused Lorazepam (Ativan) 1 mg PO Q4H PRN PRN Reason: for CIWA 8-10 Last Admin: 05/08/18 00:41 Dose: 1 mg Lorazepam (Ativan) 2 mg PO Q2H PRN PRN Reason: for CIWA 11-14 Lorazepam (Ativan Inj) 2 mg IV.PUSH Q2H PRN PRN Reason: for CIWA 11-14 Lorazepam (Ativan Inj) 2 mg IV.PUSH Q1H PRN PRN Reason: for CIWA 15-20 Lorazepam (Ativan Inj) 2 mg IV.PUSH Q15M PRN PRN Reason: for CIWA > 20 Lorazepam (Ativan Inj) 1 mg IV.PUSH Q4H PRN PRN Reason: for CIWA 8-10 Ondansetron HCl (Zofran Inj) 4 mg IV.PUSH Q6H PRN PRN Reason: NAUSEA OR VOMITING Last Admin: 05/07/18 14:29 Dose: 4 mg Rivaroxaban (Xarelto) 15 mg PO DAILY@1800 [facility] Last Admin: 05/10/18 17:25 Dose: 15 mg Thiamine HCl (Vitamin B1) 100 mg PO BID [facility] Last Admin: 05/10/18 08:00 Dose: 100 mg Exam Vital signs: Vital Signs 05/09/18 23:50 05/10/18 00:00 05/10/18 04:00 Temperature 97.2 F L 97.7 F Pulse Rate 90 89 84 Respiratory Rate 20 20 Blood Pressure 103/56 L 116/54 L Pulse Oximetry 94 L 94 L 05/10/18 04:06 05/10/18 08:00 05/10/18 12:00 Temperature 97.9 F 97.4 F L Pulse Rate 80 83 84 Respiratory Rate 17 18 Blood Pressure 135/60 107/56 L Pulse Oximetry 97 95 05/10/18 16:00 Temperature 97.9 F Pulse Rate 79 Respiratory Rate 18 Blood Pressure 109/61 Pulse Oximetry 90 L Intake & Output 05/10/18 05/10/18 05/11/18 06:59 18:59 06:59 Intake Total 240 / 240 50 / 50 Output Total 200 / 200 Balance 40 / 40 50 / 50 Weight 167.4 kg Intake: IV 50 / 50 Flexbumin 25% Inj 50 ML @ 60 50 / 50 mls/hr IV.SIG Q12H [facility] Rx#: [id number] Oral 240 / 240 Output: Urine 200 / 200 Other: Date of Last Bowel Movement 05/10/18 # Bowel Movements 0 1 Narrative: GENERAL: Alert and oriented HEAD: Normocephalic. NECK: Supple, trachea midline. No lymphadenopathy. EYES: No scleral icterus. No injection or drainage. CARDIOVASCULAR: irregularly irregular rhythm RESPIRATORY: Breath sounds equal bilaterally. No accessory muscle use. no wheezes, no rales GASTROINTESTINAL: Abdomen soft, non-tender, enlarged MUSCULOSKELETAL: No cyanosis, bilateral lower extremity edema +. SKIN: Warm and dry. Results - Lab Results 05/08/18 16:36 05/10/18 13:29 Most recent lab results Calcium 8.5 mg/dL (8.5-10.1) 05/10/18 13:29 Phosphorus 5.6 mg/dL (2.5-4.9) H 05/08/18 16:36 Magnesium 2.2 mg/dL (1.5-2.5) 05/08/18 16:36 - Image Kidney/bladder ultrasound: pending Assessment and Plan - Assessment (1) Acute kidney injury Code(s): N17.9 - Acute kidney failure, unspecified Status: Acute Plan: Acute kidney injury with creatinine of 2.67 with a baseline creatinine closer to 1.50. CORIN possible prerenal related to third spacing but work up underway. Plan Avoid nephrotoxins including IV contrast and NSAIDs Will monitor urinary output and BMP Urine sodium, creatinine, osmolarity, and urinalysis ordered Maintain strict I+O Will assess in AM but patient appears to still be fluid overloaded and lasix may need to be resumed. Renal U/S ordered Labs in AM <Joan Brannon - Last Filed: 05/11/18 14:06> History of Present Illness Primary Care Provider: UNKNOWN [facility] - Medical History Medical History: Medical History (Last Reviewed 05/10/18 @ 08:31 by Arthur Dave) Chronic kidney disease, stage III (moderate) (Acute) Hyperlipidemia (Acute) Hypertension (Acute) DENIS (obstructive sleep apnea) (Acute) COPD (chronic obstructive pulmonary disease) (Acute) Atrial fibrillation CHF (congestive heart failure) Diabetes mellitus - Surgical History Surgical History: Surgical History (Last Reviewed 05/10/18 @ 08:31 by Arthur Dave) History of surgery on arm (Acute) Hx of tonsillectomy (Acute) H/O cardiac radiofrequency ablation (Acute) History of appendectomy (Acute) - Family History Family History: Family History (Last Reviewed 05/09/18 @ 10:25 by Ines Taylor RN) Other Diabetes mellitus Hypertension Medications and Allergies Active Medications: Active Medications Acetaminophen (Tylenol) 650 mg PO Q4H PRN PRN Reason: Temp > 100.4 Last Admin: 05/08/18 03:56 Dose: 650 mg Albuterol (Duoneb Neb (Prn)) 1 ampul NEB Q4HR NEB PRN PRN Reason: SOB/Wheezing Alprazolam (Xanax) 0.25 mg PO Q6H PRN PRN Reason: ANXIETY Last Admin: 05/10/18 22:34 Dose: 0.25 mg Budesonide/Formoterol Fumarate (Symbicort 160/4.5 Mcg Inh) 2 puff INH BID [facility] Last Admin: 05/11/18 08:29 Dose: 2 puff Diltiazem HCl (Cardizem Cd 24hr) 180 mg PO DAILY [facility] Last Admin: 05/11/18 08:29 Dose: 180 mg Ferrous Sulfate (Ferosul) 325 mg PO BID [facility] Last Admin: 05/11/18 08:29 Dose: 325 mg Flumazenil (Romazecon Inj) 0.2 mg IV.PUSH Q1M PRN PRN Reason: OVERSEDATION Haloperidol Lactate (Haldol Inj) 1 mg IV.PUSH Q15M PRN PRN Reason: for severe agitation Albumin Human (Flexbumin 25% Inj) 50 mls @ 60 mls/hr IV.SIG Q12H [facility] Last Infusion: 05/11/18 06:44 Dose: Infused Lorazepam (Ativan) 1 mg PO Q4H PRN PRN Reason: for CIWA 8-10 Last Admin: 05/08/18 00:41 Dose: 1 mg Lorazepam (Ativan) 2 mg PO Q2H PRN PRN Reason: for CIWA 11-14 Lorazepam (Ativan Inj) 2 mg IV.PUSH Q2H PRN PRN Reason: for CIWA 11-14 Lorazepam (Ativan Inj) 2 mg IV.PUSH Q1H PRN PRN Reason: for CIWA 15-20 Lorazepam (Ativan Inj) 2 mg IV.PUSH Q15M PRN PRN Reason: for CIWA > 20 Lorazepam (Ativan Inj) 1 mg IV.PUSH Q4H PRN PRN Reason: for CIWA 8-10 Ondansetron HCl (Zofran Inj) 4 mg IV.PUSH Q6H PRN PRN Reason: NAUSEA OR VOMITING Last Admin: 05/07/18 14:29 Dose: 4 mg Rivaroxaban (Xarelto) 15 mg PO DAILY@1800 [facility] Last Admin: 05/10/18 17:25 Dose: 15 mg Thiamine HCl (Vitamin B1) 100 mg PO BID [facility] Last Admin: 05/11/18 08:29 Dose: 100 mg Exam Vital signs: Vital Signs 05/10/18 16:00 05/10/18 20:00 05/10/18 20:13 Temperature 97.9 F 98.2 F Pulse Rate 79 78 75 Respiratory Rate 18 17 Blood Pressure 109/61 112/52 L Pulse Oximetry 90 L 95 05/10/18 21:49 05/10/18 23:47 05/11/18 00:00 Temperature 98.8 F Pulse Rate 77 81 Respiratory Rate 18 Blood Pressure 108/51 L Pulse Oximetry 97 94 L 05/11/18 04:00 05/11/18 08:00 05/11/18 10:54 Temperature 98.4 F 97.3 F L Pulse Rate 93 H 80 Respiratory Rate 17 20 Blood Pressure 122/61 118/64 Pulse Oximetry 97 97 94 L 05/11/18 12:00 Temperature Pulse Rate 95 H Respiratory Rate Blood Pressure Pulse Oximetry Intake & Output 05/10/18 05/11/18 05/11/18 18:59 06:59 18:59 Intake Total 50 / 50 150 / 150 Output Total 500 / 500 Balance 50 / 50 -350 / -350 Weight 168 kg Intake: IV 50 / 50 50 / 50 Flexbumin 25% Inj 50 ML @ 60 50 / 50 50 / 50 mls/hr IV.SIG Q12H [facility] Rx#: [id number] Oral 100 / 100 Output: Urine 500 / 500 Other: Date of Last Bowel Movement 05/10/18 05/10/18 # Bowel Movements 1 Results - Lab Results 05/08/18 16:36 05/11/18 07:25 Most recent lab results Calcium 8.8 mg/dL (8.5-10.1) 05/11/18 07:25 Phosphorus 6.0 mg/dL (2.5-4.9) H 05/11/18 07:25 Magnesium 2.2 mg/dL (1.5-2.5) 05/08/18 16:36 Assessment and Plan - Assessment (1) Acute kidney injury Code(s): N17.9 - Acute kidney failure, unspecified Status: Acute - Attending Attestation Patient seen and examined; records reviewed; agree with the plan and recommendations of the [facility]
[2018-05-10] MEDS: ALPRAZolam 0.25 MG Tablet PO PRN (22:34)
--- NOTE | 2018-05-10 23:06 | US ---
EXAM DATE: 05/10/2018 11:01 PM EDT AGE/SEX: 62 years / Male INDICATIONS: Elevated labs. CLINICAL DATA: This is the patient's subsequent encounter. Patient reports that signs and symptoms h ave been present for 1 week and indicates a pain score of 0/10. MEDICAL/SURGICAL HISTORY: Chronic obstructive pulmonary disease. Hypertension. CHF. Diabetes. Hyperlipidemia. Stage 3 chronic kidney disease. Appendectomy. Tonsillectomy. COMPARISON: [facility] [place], US KIDNEY/RENAL/BLADDER, 05/02/2018. . MEASUREMENTS: Right Kidney:__11.4 x 6.4 x 5.6 cm Left Kidney:__11.4 x 4.8 x 5.2 cm FINDINGS: Right Kidney: Increased echotexture. No mass or hydronephrosis. Left Kidney: Increased echotexture. No mass or hydronephrosis. Bladder: Within normal limits given the degree of distension. Other: None. CONCLUSION: 1. Ultrasound appearance of the kidneys and urinary bladder within normal limits. Electronically signed by: Renny Smith MD 05/10/2018 11:05 PM EDT
[2018-05-10 23:14] LABS: Bacteria,Urine Rare /hpf; Bilirubin,Urine Negative (Negative); Clarity,Urine Clear (Clear); Color,Urine Amber (Yellw/Straw); Glucose,Urine (UA) Negative (Negative); Hyaline Casts,Urine 21 /lpf (0-3); Leukocyte Esterase,Urine Negative (Negative); Mucus,Urine Few /lpf (Occasional); Nitrite,Urine Negative (Negative); Specific Gravity,Urine 1.013 (1.002-1.035); Squamous Epithelial Cell,Urine 2 /hpf (0-5); Urobilinogen,Urine 4 or Greater mg/dL (Less than 2)
[2018-05-10 23:17] LABS: Creatinine,Urine Random 213 mg/dL (27-300)
[2018-05-11] MEDS: Albumin Human 25% Inj 50 ML IV.SIG SCH ×2 (05:53→17:27)
[2018-05-11] MEDS: Ferrous Sulfate 325 MG Tablet PO SCH ×2 (08:29→21:19)
[2018-05-11] MEDS: dilTIAZem CD 180 MG Capsule PO SCH (08:29)
[2018-05-11] MEDS: Budesonide-Formoterol 160/4.5 MCG 6 GM Inhaler INH SCH ×2 (08:29→21:19)
[2018-05-11 08:41] LABS: Alanine Aminotransferase 26 U/L (12-78); Anion Gap 7 meq/L (5-15); Aspartate Aminotransferase 44 U/L (15-37); Blood Urea Nitrogen 55 mg/dL (7-18); Calcium 8.8 mg/dL (8.5-10.1); Carbon Dioxide 32.1 meq/L (21.0-32.0); Chloride 95 meq/L (98-107); Glomerular Filtration Rate 27 mL/min (>89); Glucose,Random 98 mg/dL (74-106); Sodium 134 meq/L (136-145)
[2018-05-11 08:42] LABS: Alkaline Phosphatase 256 U/L (45-117); Total Protein 6.6 g/dL (6.4-8.2)
[2018-05-11 08:44] LABS: Potassium 5.5 meq/L (3.5-5.1)
--- NOTE | 2018-05-11 11:16 | P.DCO ---
- Physical Therapy Order: Evaluate and treat - Occupational Therapy Order: Evaluate and treat - Home Health Nursing Order: Nursing assessment with vital signs - Certification I have seen patient Zeeshan Nix on 05/11/18. My clinical findings support the need for the requested home health care services because: Limited mobility due to disease progression I certify that my clinical findings support that this patient is homebound because: Impaired cognitive ability/safety, Unsafe to leave home unassisted
--- NOTE | 2018-05-11 14:33 | P.PN ---
Subjective Interval history: Nursing denies any deterioration since last night. Patient himself has no new complaints. Says he still wants to go home upon time of discharge. Physical Exam Vital signs: Vital Signs 05/10/18 16:00 05/10/18 20:00 05/10/18 20:13 Temperature 97.9 F 98.2 F Pulse Rate 79 78 75 Respiratory Rate 18 17 Blood Pressure 109/61 112/52 L Pulse Oximetry 90 L 95 05/10/18 21:49 05/10/18 23:47 05/11/18 00:00 Temperature 98.8 F Pulse Rate 77 81 Respiratory Rate 18 Blood Pressure 108/51 L Pulse Oximetry 97 94 L 05/11/18 04:00 05/11/18 08:00 05/11/18 10:54 Temperature 98.4 F 97.3 F L Pulse Rate 93 H 80 Respiratory Rate 17 20 Blood Pressure 122/61 118/64 Pulse Oximetry 97 97 94 L 05/11/18 12:00 Temperature Pulse Rate 95 H Respiratory Rate Blood Pressure Pulse Oximetry Intake & Output 05/10/18 05/11/18 05/11/18 18:59 06:59 18:59 Intake Total 50 / 50 150 / 150 Output Total 500 / 500 Balance 50 / 50 -350 / -350 Weight 168 kg Intake: IV 50 / 50 50 / 50 Flexbumin 25% Inj 50 ML @ 60 50 / 50 50 / 50 mls/hr IV.SIG Q12H [facility] Rx#: [id number] Oral 100 / 100 Output: Urine 500 / 500 Other: Date of Last Bowel Movement 05/10/18 05/10/18 # Bowel Movements 1 Narrative: Unchanged edematous legs from yesterday Clear lungs bilaterally, unlabored breathing, on nasal cannula Heart sounds regular rate rhythm Results - Labs CBC & Chem 7: 05/08/18 16:36 05/11/18 07:25 Laboratory Results - last 24 hr 05/10/18 05/10/18 05/10/18 13:29 22:35 22:35 Sodium 135 L Potassium 4.9 Chloride 94 L Carbon Dioxide 30.4 Anion Gap 11 BUN 55 H Creatinine 2.67 H Estimated GFR 24 L Random Glucose 119 H Calcium 8.5 Phosphorus Total Bilirubin AST ALT Alkaline Phosphatase Total Protein Albumin Urine Color Urine Clarity Urine pH Ur Specific Chandler Urine Protein Urine Glucose (UA) Urine Ketones Urine Occult Blood Urine Nitrate Urine Bilirubin Urine Urobilinogen Ur Leukocyte Esterase Urine WBC Ur Squamous Epith Cells Urine Bacteria Hyaline Casts Urine Mucus Micro UA Comment Ur Microscopic Review Urine Culture Comments Urine Osmolality 345 Ur Random Creatinine 213 Ur Random Sodium 10 05/10/18 05/11/18 22:35 07:25 Sodium 134 L Potassium 5.5 H Chloride 95 L Carbon Dioxide 32.1 H Anion Gap 7 BUN 55 H Creatinine 2.41 H Estimated GFR 27 L Random Glucose 98 Calcium 8.8 Phosphorus 6.0 H Total Bilirubin 1.9 H AST 44 H ALT 26 Alkaline Phosphatase 256 H Total Protein 6.6 Albumin 3.0 L Urine Color Sarah Urine Clarity Clear Urine pH 5.0 Ur Specific Chandler 1.013 Urine Protein Negative Urine Glucose (UA) Negative Urine Ketones Negative Urine Occult Blood Negative Urine Nitrate Negative Urine Bilirubin Negative Urine Urobilinogen 4 or greater Ur Leukocyte Esterase Negative Urine WBC 2 Ur Squamous Epith Cells 2 Urine Bacteria Rare H Hyaline Casts 21 Urine Mucus Few H Micro UA Comment Culture not ind Ur Microscopic Review Not Reportable Urine Culture Comments Culture not ind Urine Osmolality Ur Random Creatinine Ur Random Sodium - Imaging Impressions Abdomen/Bladder Ultrasound 05/10/18 00:00 CONCLUSION: 1. Ultrasound appearance of the kidneys and urinary bladder within normal limits. Assessment and Plan - Assessment (1) Anasarca Code(s): R60.1 - Generalized edema Status: Acute (2) CHF (congestive heart failure) Code(s): I50.9 - Heart failure, unspecified Status: Acute (3) Acute kidney injury Code(s): N17.9 - Acute kidney failure, unspecified Status: Acute - Plan acute on chronic CHF diastolic exacerbation-- EF 50-55% from 12/2017 echo chronic Atrial fibrillation- Continue Xarelto 20 mg daily- Continue Cardizem CD 180 mg daily, holding Bumex due to AK I Deconditioning/weakness -Possibly due to inactivity, improved today, can go home with home PT upon time of discharge Acute on chronic kidney injury hyperkalemia Slight improvement with albumin infusion, nephrology following, anticipate starting diuretics, recheck in AM Anemia- chronic- reviewed HH- near baseline low iron stores H and H stable Continue ferrous sulfate 325 mg pob id COPD Obstructive sleep apnea Continue nocturnal CPAP Continue home medications Diabetes mellitus type 2 Stable Hypertension Continue baseline treatment Currently on Cardizem CD Adjust treatments as needed Hyperlipidemia Continue present treatment Follow as an outpatient DVT prophylaxis Xarelto
--- NOTE | 2018-05-11 14:38 | P.PNNP ---
Subjective Interval history: Denies any shortness of breath. Has dependent edema from lower extremity to abdomen. Creatinine is slightly improved at 2.41 from 2.67. Also anxious about wanting to go home soon. Physical Exam Vital signs: Vital Signs 05/10/18 16:00 05/10/18 20:00 05/10/18 20:13 Temperature 97.9 F 98.2 F Pulse Rate 79 78 75 Respiratory Rate 18 17 Blood Pressure 109/61 112/52 L Pulse Oximetry 90 L 95 05/10/18 21:49 05/10/18 23:47 05/11/18 00:00 Temperature 98.8 F Pulse Rate 77 81 Respiratory Rate 18 Blood Pressure 108/51 L Pulse Oximetry 97 94 L 05/11/18 04:00 05/11/18 08:00 05/11/18 10:54 Temperature 98.4 F 97.3 F L Pulse Rate 93 H 80 Respiratory Rate 17 20 Blood Pressure 122/61 118/64 Pulse Oximetry 97 97 94 L 05/11/18 12:00 Temperature Pulse Rate 95 H Respiratory Rate Blood Pressure Pulse Oximetry Intake & Output 05/10/18 05/11/18 05/11/18 18:59 06:59 18:59 Intake Total 50 / 50 150 / 150 Output Total 500 / 500 Balance 50 / 50 -350 / -350 Weight 168 kg Intake: IV 50 / 50 50 / 50 Flexbumin 25% Inj 50 ML @ 60 50 / 50 50 / 50 mls/hr IV.SIG Q12H [facility] Rx#: [id number] Oral 100 / 100 Output: Urine 500 / 500 Other: Date of Last Bowel Movement 05/10/18 05/10/18 # Bowel Movements 1 Narrative: GENERAL: Alert and oriented HEAD: Normocephalic. NECK: Supple, trachea midline. No lymphadenopathy. EYES: No scleral icterus. No injection or drainage. CARDIOVASCULAR: irregularly irregular rhythm RESPIRATORY: Breath sounds equal bilaterally. No accessory muscle use. no wheezes, no rales GASTROINTESTINAL: Abdomen soft, non-tender, enlarged MUSCULOSKELETAL: No cyanosis, bilateral lower extremity edema +. SKIN: Warm and dry. Assessment and Plan - Assessment (1) Acute kidney injury Code(s): N17.9 - Acute kidney failure, unspecified Status: Acute Plan: Acute kidney injury with creatinine of 2.67 with a baseline creatinine closer to 1.50. CORIN possible prerenal related to third spacing but work up underway. Has had serology done in past with normal complements, EMELYN, and ANCA Renal ultrasound with normal appearance of kidneys, no masses or hydronephrosis Urinalysis negative for proteinuria Plan Avoid nephrotoxins including IV contrast and NSAIDs Will monitor urinary output and BMP Maintain strict I+O Discussed with Dr. Brannon, 1 X dose of lasix given. Renal panel
[2018-05-11] MEDS: Rivaroxaban 15 MG Tablet PO SCH (17:27)
[2018-05-11] MEDS: ALPRAZolam 0.25 MG Tablet PO PRN (21:19)
[2018-05-12] MEDS: Albumin Human 25% Inj 50 ML IV.SIG SCH (04:42)
[2018-05-12] MEDS: ALPRAZolam 0.25 MG Tablet PO PRN (05:37)
[2018-05-12 06:27] LABS: Albumin 3.2 g/dL (3.4-5.0); Calcium 8.8 mg/dL (8.5-10.1); Carbon Dioxide 33.2 meq/L (21.0-32.0); Phosphorus 6.1 mg/dL (2.5-4.9); Potassium 4.6 meq/L (3.5-5.1)
[2018-05-12] MEDS: dilTIAZem CD 180 MG Capsule PO SCH (09:34)
[2018-05-12] MEDS: Budesonide-Formoterol 160/4.5 MCG 6 GM Inhaler INH SCH (09:34)
[2018-05-12] MEDS: Ferrous Sulfate 325 MG Tablet PO SCH (09:34)
--- NOTE | 2018-05-12 10:04 | P.PNNP ---
Subjective Interval history: Patient denies any shortness of breath. Edema stable. Creatinine is improving at 2.0 and hyperkalemia resolved today Physical Exam Vital signs: Vital Signs 05/11/18 10:54 05/11/18 12:00 05/11/18 16:00 Temperature 98.1 F 97.9 F Pulse Rate 81 80 Respiratory Rate 20 20 Blood Pressure 117/55 L 125/56 L Pulse Oximetry 94 L 97 98 05/11/18 19:57 05/11/18 20:00 05/11/18 20:05 Temperature 98.1 F Pulse Rate 80 83 Respiratory Rate 18 Blood Pressure 99/57 L Pulse Oximetry 95 98 05/12/18 00:00 05/12/18 04:00 05/12/18 08:35 Temperature 97.2 F L 98.4 F Pulse Rate 80 80 Respiratory Rate 19 19 Blood Pressure 121/58 L 126/58 L Pulse Oximetry 92 L 92 L 98 Intake & Output 05/11/18 05/12/18 05/12/18 18:59 06:59 18:59 Intake Total 290 / 290 50 / 50 Output Total 325 / 325 350 / 350 Balance -35 / -35 -300 / -300 Weight 167.5 kg Intake: IV 50 / 50 50 / 50 Flexbumin 25% Inj 50 ML @ 60 50 / 50 50 / 50 mls/hr IV.SIG Q12H [facility] Rx#: [id number] Oral 240 / 240 Output: Urine 325 / 325 350 / 350 Other: # Voids 1 Date of Last Bowel Movement 05/10/18 05/11/18 05/11/18 # Bowel Movements 1 Narrative: GENERAL: Alert and oriented HEAD: Normocephalic. NECK: Supple, trachea midline. No lymphadenopathy. EYES: No scleral icterus. No injection or drainage. CARDIOVASCULAR: irregularly irregular rhythm RESPIRATORY: Breath sounds equal bilaterally. No accessory muscle use. no wheezes, no rales GASTROINTESTINAL: Abdomen soft, non-tender, enlarged MUSCULOSKELETAL: No cyanosis, bilateral lower extremity edema +. SKIN: Warm and dry. Assessment and Plan - Assessment (1) Acute kidney injury Code(s): N17.9 - Acute kidney failure, unspecified Status: Acute Plan: Acute kidney injury with creatinine of 2.67 with a baseline creatinine closer to 1.50. CORIN possible prerenal related to third spacing Has had serology done in past with normal complements, EMELYN, and ANCA Renal ultrasound with normal appearance of kidneys, no masses or hydronephrosis Urinalysis negative for proteinuria Plan Avoid nephrotoxins including IV contrast and NSAIDs Will monitor urinary output and BMP Creatinine has improved today and hyperkalemia resolved, from a nephrology stand point patient is cleared for discharged with recommendations for follow up in 2 weeks at office. Recommend continuing Lasix at 20 mg daily, instructions given if patient has increased swelling about double dose for 3 days. Low sodium diet and weight loss recommended.
--- NOTE | 2018-05-12 12:35 | P.DS ---
Date of admission: 05/05/18 13:37 Primary care physician: UNKNOWN Brief History from admission: 62-year-old male with a past medical history of atrial fibrillation on Xarelto, chronic diastolic heart failure ejection fraction 55%, COPD, DENIS on CPAP, hyperlipidemia, venous stasis, hypertension, CKD stage III, diabetes mellitus and chronic lower back pain presents to the emergency department for the evaluation of a fall and increasing worsening shortness of breath/ deconditioning. The patient reports he was trying to sit down on his bed to take a rest after becoming short of breath while walking when he missed the side of the bed and slid down onto the ground. He was unable to get up on his own and called EMS for assistance. Given the patient's dyspnea he was brought to the emergency department for further evaluation. Patient was last discharged from [facility] [place] on 01/06/18 where he was admitted for CHF with respiratory failure requiring intubation. The patient currently denies any chest pain. No abdominal pain. No nausea/vomiting/diarrhea. No lateralizing signs/symptoms. No fever/chills. DS: Diagnosis - Discharge Diagnosis (1) Anasarca Status: Acute (2) CHF (congestive heart failure) Status: Acute (3) Acute kidney injury Status: Acute DS: Medications - Discharge Medications Prescriptions: albuterol sulfate [Ventolin HFA] 2 puff INHALATION Q6H PRN #1 inhaler PRN Reason: Shortness Of Breath Or Wheezing budesonide-formoterol [Symbicort] 2 puff INH BID #1 inhaler diltiazem HCl [Cardizem CD] 180 mg PO DAILY #30 cap ferrous sulfate [FeroSul] 325 mg PO BID #60 tab furosemide See Label Instructions .ROUTE .COMPLEX #30 tab rivaroxaban [Xarelto] 15 mg PO DAILY@1800 #30 tab thiamine HCl (vitamin B1) 100 mg PO BID #30 tab DS: Summary Hospital Course: Patient was admitted, started on IV diuresis. Ultimately had acute kidney injury which improved with nephrology's comanagement of albumin infusion and diuresis. Patient was counseled to take 20 mg of Lasix daily at home and only double his dose for 3 days if his lower extremity edema started to worsen. Patient has been maximal benefit from hospitalization and is clinically stable for discharge. Patient says he has oxygen at home and wears up to 2 L. - Time Spent with Patient Total time spent providing and/or coordinating discharge services: Less than 30 minutes - Quality: VTE Deep Vein Thrombosis/Pulmonary Embolism Present on Admission: No Exam Vital signs: Vital Signs 05/11/18 16:00 05/11/18 19:57 05/11/18 20:00 Temperature 97.9 F 98.1 F Pulse Rate 80 80 Respiratory Rate 20 18 Blood Pressure 125/56 L 99/57 L Pulse Oximetry 98 95 98 05/11/18 20:05 05/12/18 00:00 05/12/18 04:00 Temperature 97.2 F L 98.4 F Pulse Rate 83 80 80 Respiratory Rate 19 19 Blood Pressure 121/58 L 126/58 L Pulse Oximetry 92 L 92 L 05/12/18 08:00 05/12/18 08:35 Temperature 97.5 F L Pulse Rate 83 Respiratory Rate 20 Blood Pressure 103/62 Pulse Oximetry 98 98 Intake & Output 05/11/18 05/12/18 05/12/18 18:59 06:59 18:59 Intake Total 290 / 290 50 / 50 Output Total 325 / 325 350 / 350 Balance -35 / -35 -300 / -300 Weight 167.5 kg Intake: IV 50 / 50 50 / 50 Flexbumin 25% Inj 50 ML @ 60 50 / 50 50 / 50 mls/hr IV.SIG Q12H DOLLY Rx#: [id number] Oral 240 / 240 Output: Urine 325 / 325 350 / 350 Other: # Voids 1 Date of Last Bowel Movement 05/10/18 05/11/18 05/11/18 # Bowel Movements 1 Narrative: Heart sounds regular rate and rhythm, no murmurs Clear lungs bilaterally, unlabored breathing Chronic largely unchanged mild to moderate edema in lower legs Results Procedures completed during hospitalization: . Labs on day of discharge: Labs from last 24 hours 05/12/18 05:16 Sodium 137 Potassium 4.6 D Chloride 96 L Carbon Dioxide 33.2 H Anion Gap 8 BUN 55 H Creatinine 2.07 H Estimated GFR 32 L Random Glucose 95 Calcium 8.8 Phosphorus 6.1 H Albumin 3.2 L - Impressions ITS Impressions Chest X-Ray 05/02/18 00:27 CONCLUSION: Mild right pleural effusion. Abdomen/Bladder Ultrasound 05/10/18 00:00 CONCLUSION: 1. Ultrasound appearance of the kidneys and urinary bladder within normal limits. Discharge Plan - Discharge Disposition Patient Disposition: 06 Disch W/Home Health Service - Discharge Condition Condition: Stable - Discharge Order Discharge Orders: Discharge Order (Routine); Ordered 05/12/18 Ordered By: Holden Jama - Physicians Team Primary Care Provider: UNKNOWN, Attending Provider: Holden Jama Other Providers: Jake Joseph ; Joan Brannon MD
[2018-05-12 13:53] LABS: Urea Creatinine ratio 5.04 mg/mg
== END 2018-05-12 12:45 | disposition home health service (06) ==
LOC: NEPC 22:55 → NEDA 22:55 → NEPGCP 05-02 06:32 → HCIS 05-06 13:49 → N04 05-07 18:44
PROVIDERS: ADMIT Hospitalist; ATTEND Hospitalist

== ENCOUNTER 2018-05-22 16:06 | Inpatient (IN) ==
--- NOTE | 2018-05-22 17:02 | ED ---
HPI General Chief complaint: Urogenital-Male Stated complaint: Swollen Testicles Source: patient Mode of arrival: EMS Limitations: no limitations History of Present Illness HPI narrative: Patient presents with complaints of testicular edema with inability to ambulate or urinate. Reports a history of CHF. Reports compliance with Bumex and furosemide. Reports mild shortness of breath. Pleur- evac living conditions are horrible with feces and urine everywhere. Patient states he normally ambulates but is unable to secondary to testicular swelling. Long-standing history of lymphedema. Onset (ago): day(s) (2-3 gradually worsening) Location: abdomen, pelvis, genitals and lower extremity Radiation: non-radiation Severity: mild Severity scale (1-10): 2 Quality: dull and constant Pain Consistency: constant Relieving factors: none Exacerbating factors: movement Associated symptoms: shortness of breath Treatments prior to arrival: none Related Data Home Medications Medication Instructions Recorded Confirmed acetazolamide 125 mg PO BID 05/22/18 05/22/18 albuterol sulfate [Ventolin HFA] 1 puff INHALATION Q4-6H PRN 05/22/18 05/22/18 atorvastatin 1 tab PO HS 05/22/18 05/22/18 budesonide-formoterol [Symbicort] 2 puff INHALATION BID 05/22/18 05/22/18 bumetanide 1 mg PO DAILY 05/22/18 05/22/18 calcium acetate 1 tab PO TID 05/22/18 05/22/18 digoxin 0.25 mg PO DAILY 05/22/18 05/22/18 diltiazem HCl [Cardizem LA] 240 mg PO DAILY 05/22/18 05/22/18 ipratropium bromide [Atrovent HFA] 1 puff INHALATION Q6HR PRN 05/22/18 05/22/18 metoprolol tartrate 100 mg PO BID 05/22/18 05/22/18 omeprazole 1 cap PO DAILY 05/22/18 05/22/18 potassium chloride [Klor-Con] 1 packet PO DAILY 05/22/18 05/22/18 prednisone 10 mg PO DAILY 05/22/18 05/22/18 rivaroxaban 1 tab PO DAILY 05/22/18 05/22/18 torsemide 40 mg PO DAILY 05/22/18 05/22/18 Previous Rx's Medication Instructions Recorded ferrous sulfate [FeroSul] 325 mg PO BID #60 tab 05/12/18 Allergies Allergy/AdvReac Type Severity Reaction Status Date / Time No Known Allergies Allergy Verified 05/22/18 16:16 Review of Systems ROS: all other systems reviewed are negative [facility] Medical History Medical History Chronic kidney disease, stage III (moderate) (Acute) Hyperlipidemia (Acute) Hypertension (Acute) DENIS (obstructive sleep apnea) (Acute) COPD (chronic obstructive pulmonary disease) (Acute) Atrial fibrillation (Acute) CHF (congestive heart failure) (Acute) Diabetes mellitus (Acute) Surgical History Surgical History History of surgery on arm (Acute) Hx of tonsillectomy (Acute) H/O cardiac radiofrequency ablation (Acute) History of appendectomy (Acute) Family History Family History Other Diabetes mellitus Hypertension Social History Social History Substance History: No History of Abuse Second Hand Smoke Exposure: No Smoking Status: Never smoker How Often Do You Have a Drink Containing Alcohol: 4 or more times a week Recent Travel in [facility] within the Last 8 Weeks: No Recent Out of Country Travel within the Last 8 Weeks: No Immunization History Tetanus Immunization: Unsure Hx Influenza Vaccine This Season: Yes Exam Narrative Exam Narrative: CARDIOVASCULAR: Regular rate and rhythm without murmurs, gallops , or rubs. RESPIRATORY: Breath sounds equal bilaterally. No accessory muscle use. GASTROINTESTINAL: Abdomen distended with fluid wave unable to assess hepatosplenomegaly. Positive bowel sounds Examination of the pelvic region reveals severe edema in the upper legs and pubic region, penis is visible and does not appear to be on an hindered, unable to assess testicular size MUSCULOSKELETAL: No cyanosis, severe chronic lymphedema BACK: Nontender without obvious deformity. No CVA tenderness. Course Initial Documented Vital Signs Temperature 97.8 F 05/22/18 16:10 Pulse Rate 96 H 05/22/18 16:10 Respiratory Rate 19 05/22/18 16:10 Blood Pressure 148/71 H 05/22/18 16:10 Pulse Oximetry 97 05/22/18 16:10 Last Documented Vital Signs Temperature 97.8 F 05/22/18 16:10 Pulse Rate 95 H 05/22/18 16:45 Respiratory Rate 19 05/22/18 16:10 Blood Pressure 148/71 H 05/22/18 16:10 Pulse Oximetry 98 05/22/18 17:08 Medical Decision Making MDM Narrative Medical decision making narrative: Assessment plan discussed with patient at bedside. Barrientos placed with approximately 1 L of urine. Spoke with Dr. Rossi who is in agreement will admit for placement consideration Medical Screen Exam Complete: Yes Emergency Medical Condition: Yes Differential Diagnosis Differential Diagnosis: CHF exacerbation, failure to thrive, lymphedema, medication noncompliance, malingering Medical Records Medical records reviewed: Yes I reviewed the patient's medical records. Lab Data Result diagrams: 05/22/18 17:20 05/22/18 17:20 Lab Results 05/22/18 05/22/18 05/22/18 Range/Units 17:20 17:20 17:20 CBC w Diff Auto diff final WBC 9.0 (4.0-11.0) th/mm3 RBC 3.41 L (4.50-5.90) mil/mm3 Hgb 9.0 L (13.0-17.0) gm/dL Hct 29.0 L (39.0-51.0) % MCV 85.1 (80.0-100.0) fL MCH 26.3 L (27.0-34.0) pg MCHC 30.9 L (32.0-36.0) % RDW 20.0 H (11.6-17.2) % Plt Count 317 (150-450) th/mm3 MPV 7.1 (7.0-11.0) fL Neut % (Auto) 81.0 H (16.0-70.0) % Lymph % (Auto) 9.1 (9.0-44.0) % [place] % (Auto) 6.8 (0.0-8.0) % Eos % (Auto) 2.3 (0.0-4.0) % Baso % (Auto) 0.8 (0.0-2.0) % Neut # (Auto) 7.3 (1.8-7.7) th/mm3 Lymph # (Auto) 0.8 L (1.0-4.8) th/mm3 [place] # (Auto) 0.6 (0.0-0.9) th/mm3 Eos # (Auto) 0.2 (0.0-0.4) th/mm3 Baso # (Auto) 0.1 (0.0-0.2) th/mm3 WBC Differential . Differential Comment . Sodium 141 (136-145) meq/L Potassium 4.6 (3.5-5.1) meq/L Chloride 103 (98-107) meq/L Carbon Dioxide 26.6 (21.0-32.0) meq/L Anion Gap 11 (5-15) meq/L BUN 58 H (7-18) mg/dL Creatinine 1.70 H (0.60-1.30) mg/dL Estimated GFR 41 L (>89) mL/min Random Glucose 94 (74-106) mg/dL Calcium 8.7 (8.5-10.1) mg/dL Total Bilirubin 0.8 (0.2-1.0) mg/dL AST 60 H (15-37) U/L ALT 31 (12-78) U/L Alkaline Phosphatase 212 H (45-117) U/L Troponin I 0.02 (0.02-0.05) ng/mL B-Natriuretic Peptide 849 H (0-100) pg/mL Total Protein 7.4 (6.4-8.2) g/dL Albumin 3.4 (3.4-5.0) g/dL Ur Collection Type Urine Color (Yellw/Straw) Urine Clarity (Clear) Urine pH (5.0-8.5) Ur Specific [place] (1.002-1.035) Urine Protein (Neg-Trace) mg/dL Urine Glucose (UA) (Negative) mg/dL Urine Ketones (Negative) mg/dL Urine Occult Blood (Negative) Urine Nitrate (Negative) Urine Bilirubin (Negative) Urine Urobilinogen (Less than 2) mg/dL Ur Leukocyte Esterase (Negative) Urine WBC (0-5) /hpf Ur Squamous Epith Cells (0-5) /hpf Micro UA Comment Ur Microscopic Review 05/22/18 Range/Units 17:20 CBC w Diff WBC (4.0-11.0) th/mm3 RBC (4.50-5.90) mil/mm3 Hgb (13.0-17.0) gm/dL Hct (39.0-51.0) % MCV (80.0-100.0) fL MCH (27.0-34.0) pg MCHC (32.0-36.0) % RDW (11.6-17.2) % Plt Count (150-450) th/mm3 MPV (7.0-11.0) fL Neut % (Auto) (16.0-70.0) % Lymph % (Auto) (9.0-44.0) % [place] % (Auto) (0.0-8.0) % Eos % (Auto) (0.0-4.0) % Baso % (Auto) (0.0-2.0) % Neut # (Auto) (1.8-7.7) th/mm3 Lymph # (Auto) (1.0-4.8) th/mm3 [place] # (Auto) (0.0-0.9) th/mm3 Eos # (Auto) (0.0-0.4) th/mm3 Baso # (Auto) (0.0-0.2) th/mm3 WBC Differential Differential Comment Sodium (136-145) meq/L Potassium (3.5-5.1) meq/L Chloride (98-107) meq/L Carbon Dioxide (21.0-32.0) meq/L Anion Gap (5-15) meq/L BUN (7-18) mg/dL Creatinine (0.60-1.30) mg/dL Estimated GFR (>89) mL/min Random Glucose (74-106) mg/dL Calcium (8.5-10.1) mg/dL Total Bilirubin (0.2-1.0) mg/dL AST (15-37) U/L ALT (12-78) U/L Alkaline Phosphatase (45-117) U/L Troponin I (0.02-0.05) ng/mL B-Natriuretic Peptide (0-100) pg/mL Total Protein (6.4-8.2) g/dL Albumin (3.4-5.0) g/dL Ur Collection Type Cath Urine Color Yellow (Yellw/Straw) Urine Clarity Clear (Clear) Urine pH 6.0 (5.0-8.5) Ur Specific [place] 1.015 (1.002-1.035) Urine Protein Negative (Neg-Trace) mg/dL Urine Glucose (UA) Negative (Negative) mg/dL Urine Ketones Negative (Negative) mg/dL Urine Occult Blood Negative (Negative) Urine Nitrate Negative (Negative) Urine Bilirubin Negative (Negative) Urine Urobilinogen 2.0 H (Less than 2) mg/dL Ur Leukocyte Esterase Negative (Negative) Urine WBC 0-5 (0-5) /hpf Ur Squamous Epith Cells 0-5 (0-5) /hpf Micro UA Comment Culture not ind Ur Microscopic Review Microscopic reviewed Imaging Data Radiologist's impression: Chest X-Ray 05/22/18 16:45 CONCLUSION: Stable appearance of a prominent mediastinum. Stable cardiomegaly. Questionable small pleural effusions versus attenuation from overlying soft tissues. Discharge Plan Discharge Disposition Patient Disposition: 30 Still Patient Discharge Condition Condition: Fair Discharge Details Diagnosis: CHF exacerbation Physicians Team ED Provider: Edis Mitchell Primary Care Provider: UNKNOWN, Rxs /Orders / Referrals /Forms Prescriptions: No Action ferrous sulfate [FeroSul] 325 mg (65 mg iron) Tablet 325 mg PO BID Qty: 60 RF: 0 atorvastatin 40 mg Tablet 1 tab PO HS RF: 0 prednisone 10 mg Tablet 10 mg PO DAILY RF: 0 torsemide 20 mg Tablet 40 mg PO DAILY RF: 0 metoprolol tartrate 100 mg Tablet 100 mg PO BID RF: 0 acetazolamide 125 mg Tablet 125 mg PO BID RF: 0 calcium acetate 667 mg Tablet 1 tab PO TID RF: 0 digoxin 250 mcg Tablet 0.25 mg PO DAILY RF: 0 potassium chloride [Klor-Con] 20 mEq Packet 1 packet PO DAILY RF: 0 bumetanide 1 mg Tablet 1 mg PO DAILY RF: 0 albuterol sulfate [Ventolin HFA] 90 mcg/actuation Hfa Aerosol Inhaler 1 puff Inhalation Q4-6H PRN (Reason: Shortness Of Breath) RF: 0 diltiazem HCl [Cardizem LA] 240 mg Tablet Extended Release 24 Hr 240 mg PO DAILY RF: 0 ipratropium bromide [Atrovent HFA] 17 mcg/actuation Hfa Aerosol Inhaler 1 puff Inhalation Q6HR PRN (Reason: Shortness Of Breath) RF: 0 budesonide-formoterol [Symbicort] 160-4.5 mcg/actuation Hfa Aerosol Inhaler 2 puff Inhalation BID RF: 0 omeprazole 20 mg Tablet,Delayed Release (Dr/Ec) 1 cap PO DAILY RF: 0 rivaroxaban 10 mg Tablet 1 tab PO DAILY RF: 0 Status ED Status: With Nurse
[2018-05-22 17:41] LABS: Bilirubin,Urine Negative (Negative); Clarity,Urine Clear (Clear); Color,Urine Yellow (Yellw/Straw); Glucose,Urine (UA) Negative (Negative); Leukocyte Esterase,Urine Negative (Negative); Nitrite,Urine Negative (Negative); Specific Gravity,Urine 1.015 (1.002-1.035)
--- NOTE | 2018-05-22 17:48 | XR ---
EXAM DATE: 05/22/2018 5:45 PM EDT AGE/SEX: 62 years / Male INDICATIONS: Short of breath CLINICAL DATA: This is the patient's initial encounter. Patient reports that signs and symptoms have been present for 1 day and indicates a pain score of 0/10. MEDICAL/SURGICAL HISTORY: Chronic obstructive pulmonary disease. Congestive heart failure. A F ib None. [place] [facility] [place]. . FINDINGS: The heart size appears enlarged and there is widening of the mediastinum. The lungs demonstrate bilat eral hazy opacities which may reflect artifact from overlying soft tissues versus small layering pleu ral effusions. No evidence of pneumothorax. Pulmonary vasculature is normal in caliber. CONCLUSION: Stable appearance of a prominent mediastinum. Stable cardiomegaly. Questionable small pleural effusio ns versus attenuation from overlying soft tissues. Electronically signed by: Chela Santos MD 05/22/2018 5:47 PM EDT
[2018-05-22 17:50] LABS: Chloride 103 meq/L (98-107); Sodium 141 meq/L (136-145)
[2018-05-22 17:52] LABS: Potassium 4.6 meq/L (3.5-5.1)
[2018-05-22 17:55] LABS: Albumin 3.4 g/dL (3.4-5.0); Anion Gap 11 meq/L (5-15); Blood Urea Nitrogen 58 mg/dL (7-18); Calcium 8.7 mg/dL (8.5-10.1); Carbon Dioxide 26.6 meq/L (21.0-32.0); Glucose,Random 94 mg/dL (74-106)
[2018-05-22 17:56] LABS: Squamous Epithelial Cell,Urine 0-5 /hpf (0-5); WBC,Urine 0-5 /hpf (0-5)
[2018-05-22 17:58] LABS: Alanine Aminotransferase 31 U/L (12-78); Aspartate Aminotransferase 60 U/L (15-37); Glomerular Filtration Rate 41 mL/min (>89)
[2018-05-22 18:00] LABS: Total Protein 7.4 g/dL (6.4-8.2)
[2018-05-22 18:01] LABS: Alkaline Phosphatase 212 U/L (45-117)
[2018-05-22 18:03] LABS: Troponin I 0.02 ng/mL (0.02-0.05)
[2018-05-22 18:11] LABS: Baso # (Auto) 0.1 th/mm3 (0.0-0.2); Baso % (Auto) 0.8 % (0.0-2.0); Eos # (Auto) 0.2 th/mm3 (0.0-0.4); Eos % (Auto) 2.3 % (0.0-4.0); Lymph # (Auto) 0.8 th/mm3 (1.0-4.8); Lymph % (Auto) 9.1 % (9.0-44.0); Mean Corpuscular Hemoglobin 26.3 pg (27.0-34.0); Mean Corpuscular Volume 85.1 fL (80.0-100.0); Mean Platelet Volume 7.1 fL (7.0-11.0); Mono # (Auto) 0.6 th/mm3 (0.0-0.9); Mono % (Auto) 6.8 % (0.0-8.0); Neut # (Auto) 7.3 th/mm3 (1.8-7.7); Platelet Count 317 th/mm3 (150-450); Red Blood Count 3.41 mil/mm3 (4.50-5.90)
[2018-05-22 18:12] LABS: Mean Corpuscular HGB Conc 30.9 % (32.0-36.0)
[2018-05-22] MEDS ORDERED: Acetaminophen 325 MG Tablet PO PRN (18:59)
[2018-05-22] MEDS ORDERED: Heparin - SQ 10,000 UNITS/ML Vial SQ SCH (19:00)
[2018-05-22] MEDS: Budesonide-Formoterol 160/4.5 MCG 6 GM Inhaler INH SCH (23:21)
[2018-05-22] MEDS: acetaZOLAMIDE 250 MG TABLET PO SCH (23:21)
[2018-05-22] MEDS: Metoprolol Tartrate 100 MG Tablet PO SCH (23:21)
[2018-05-22] MEDS: Ferrous Sulfate 325 MG Tablet PO SCH (23:21)
[2018-05-23 07:30] LABS: Chloride 104 meq/L (98-107); Potassium 3.9 meq/L (3.5-5.1); Sodium 143 meq/L (136-145)
[2018-05-23 07:33] LABS: INR 1.3 Ratio; Prothrombin Time 13.1 sec (9.8-11.6)
[2018-05-23 07:35] LABS: Baso # (Auto) 0.1 th/mm3 (0.0-0.2); Baso % (Auto) 0.9 % (0.0-2.0); Eos # (Auto) 0.2 th/mm3 (0.0-0.4); Eos % (Auto) 2.2 % (0.0-4.0); Hematocrit 29.2 % (39.0-51.0); Hemoglobin 8.8 gm/dL (13.0-17.0); Lymph # (Auto) 0.8 th/mm3 (1.0-4.8); Lymph % (Auto) 9.5 % (9.0-44.0); Mean Corpuscular Hemoglobin 25.4 pg (27.0-34.0); Mean Corpuscular Volume 84.7 fL (80.0-100.0); Mean Platelet Volume 7.2 fL (7.0-11.0); Mono # (Auto) 0.7 th/mm3 (0.0-0.9); Mono % (Auto) 8.4 % (0.0-8.0); Neut # (Auto) 6.1 th/mm3 (1.8-7.7); Platelet Count 336 th/mm3 (150-450); Red Blood Count 3.45 mil/mm3 (4.50-5.90); White Blood Count 7.9 th/mm3 (4.0-11.0)
[2018-05-23 07:36] LABS: Albumin 3.2 g/dL (3.4-5.0); Anion Gap 8 meq/L (5-15); Blood Urea Nitrogen 56 mg/dL (7-18); Calcium 8.4 mg/dL (8.5-10.1); Carbon Dioxide 30.8 meq/L (21.0-32.0); Glucose,Random 97 mg/dL (74-106)
[2018-05-23 07:39] LABS: Alanine Aminotransferase 29 U/L (12-78); Aspartate Aminotransferase 43 U/L (15-37); Glomerular Filtration Rate 41 mL/min (>89)
[2018-05-23 07:41] LABS: Total Protein 6.7 g/dL (6.4-8.2)
[2018-05-23 07:42] LABS: Alkaline Phosphatase 193 U/L (45-117)
[2018-05-23] MEDS: Digoxin 250 MCG Tablet PO SCH (08:14)
[2018-05-23] MEDS: acetaZOLAMIDE 250 MG TABLET PO SCH ×2 (08:14→21:04)
[2018-05-23] MEDS: dilTIAZem CD 240 MG Capsule PO SCH (08:14)
[2018-05-23] MEDS: Pantoprazole Sodium 20 MG DR Tablet PO SCH (08:15)
[2018-05-23] MEDS: Metoprolol Tartrate 100 MG Tablet PO SCH ×2 (08:15→21:05)
[2018-05-23] MEDS: Ferrous Sulfate 325 MG Tablet PO SCH ×2 (08:15→21:04)
[2018-05-23] MEDS: predniSONE 10 MG Tablet PO SCH (08:15)
[2018-05-23] MEDS: Rivaroxaban 10 MG Tablet PO SCH (08:15)
[2018-05-23] MEDS: Budesonide-Formoterol 160/4.5 MCG 6 GM Inhaler INH SCH ×2 (08:16→21:04)
[2018-05-23] MEDS: Calcium Acetate 667 MG Capsule PO SCH ×3 (08:16→18:07)
--- NOTE | 2018-05-23 11:07 | P.HP ---
History of Present Illness Primary Care Physician: UNKNOWN Chief Complaint: Swollen scrotum unable to urinate History of Present Illness: 62-year-old male with known history of diastolic congestive heart failure, chronic obstructive pulmonary disease, chronic atrial fibrillation, obstructive sleep apnea, hypertension, hyperlipidemia, chronic kidney disease stage III, chronic back pain who presented to the hospital because of swollen scrotum and difficulty in urinating. Patient was just admitted in the hospital approximate 1 week ago and was treated for congestive heart failure exacerbation. Patient was discharged home and was doing quite well until 2 days ago he started noticing scrotal edema. Patient states he started developing difficulty in urination and only able to urinate a little amount. Patient states that progressively got worse and he had a strain harder in order to urinate. He noticed his scrotum continue to swelling and bigger and he had significant difficulty in urinating so he came to emergency department for evaluation. Patient had workup done emergency department and patient had a Barrientos placed with over a liter of urine output. Further workup emergency department actually show improvement majority of his laboratory studies. His BNP was elevated, however it is stable compared to his history. Patient denied any chest pain, shortness of breath, difficulty breathing. Patient states that he continues to have lower extremity edema. - Diagnosis (1) Acute urinary retention Inpatient Certification: I certify that the inpatient services were ordered in accordance with Medicare regulations governing the order. This includes certification that hospital inpatient services are reasonable and necessary and in the case of services not specified as inpatient-only under 42 CFR 419.22(n), that they are appropriately provided as inpatient services in accordance to with the 2-midnight benchmark under 43 CFR 412.3(e) Estimated Total Length of Stay (Days): 3 Plans for Post Hospital Care: Not yet determined Review of Systems All other systems reviewed negative except as stated in HPI Genitourinary: Reports difficulty urinating, Reports scrotal swelling PMFSH - History History Provided By: Patient - Medical History Medical History: Medical History (Last Reviewed 05/23/18 @ 10:59 by NICK Peterson) Chronic kidney disease, stage III (moderate) (Acute) Hyperlipidemia (Acute) Hypertension (Acute) DENIS (obstructive sleep apnea) (Acute) COPD (chronic obstructive pulmonary disease) (Acute) Atrial fibrillation CHF (congestive heart failure) Diabetes mellitus - Surgical History Surgical History: Surgical History (Last Reviewed 09/09/18 @ 10:59 by NICK Peterson) History of surgery on arm (Acute) Hx of tonsillectomy (Acute) H/O cardiac radiofrequency ablation (Acute) History of appendectomy (Acute) - Family History Family History: Family History (Last Updated 05/23/18 @ 10:39 by NICK Peterson) Father Diabetes mellitus Hypertension Mother Diabetes mellitus - Tobacco History Second Hand Smoke Exposure: No Smoking Status: Never smoker - Alcohol History How Often Do You Have a Drink Containing Alcohol: 4 or more times a week - Substance Use History Substance History: No History of Abuse - Travel History Recent Travel in the [place] Within the Last 8 Weeks: No Recent Travel Out of the Country Within the Last 8 Weeks: No - Immunization History Tetanus Immunization: Unsure Hx Influenza Vaccine This Season: Yes Medications and Allergies Active Medications: Active Medications Acetaminophen (Tylenol) 650 mg PO Q4H PRN PRN Reason: Temp > 100.4 Acetazolamide (Diamox) 125 mg PO BID [facility] Last Admin: 05/23/18 08:14 Dose: 125 mg Albuterol (Duoneb Neb (Prn)) 1 ampul NEB Q2HR NEB PRN PRN Reason: DYSPNEA Last Admin: 05/23/18 07:30 Dose: 1 ampul Atorvastatin Calcium (Lipitor) 40 mg PO HS [facility] Last Admin: 05/22/18 23:21 Dose: 40 mg Budesonide/Formoterol Fumarate (Symbicort 160/4.5 Mcg Inh) 2 puff INH BID [facility] Last Admin: 05/23/18 08:16 Dose: 2 puff Calcium Acetate (Phoslo) 667 mg PO TID [facility] Last Admin: 05/23/18 08:16 Dose: 667 mg Digoxin (Lanoxin) 250 mcg PO DAILY [facility] Last Admin: 05/23/18 08:14 Dose: 250 mcg Diltiazem HCl (Cardizem Cd 24hr) 240 mg PO DAILY [facility] Last Admin: 05/23/18 08:14 Dose: 240 mg Ferrous Sulfate (Ferosul) 325 mg PO BID [facility] Last Admin: 05/23/18 08:15 Dose: 325 mg Furosemide (Lasix Inj) 40 mg IV.PUSH BID@0900,1800 [facility] Last Admin: 05/23/18 08:15 Dose: 40 mg Metoprolol Tartrate (Lopressor) 100 mg PO BID [facility] Last Admin: 05/23/18 08:15 Dose: 100 mg Pantoprazole Sodium (Protonix) 20 mg PO DAILY [facility] Last Admin: 05/23/18 08:15 Dose: 20 mg Potassium Chloride (K-Dur) 20 meq PO DAILY [facility] Last Admin: 05/23/18 08:14 Dose: 20 meq Prednisone (Deltasone) 10 mg PO DAILY [facility] Last Admin: 05/23/18 08:15 Dose: 10 mg Rivaroxaban (Xarelto) 10 mg PO DAILY [facility] Last Admin: 05/23/18 08:15 Dose: 10 mg Tamsulosin HCl (Flomax) 0.4 mg PO DAILY [facility] Allergies Allergy/AdvReac Type Severity Reaction Status Date / Time No Known Allergies Allergy Verified 05/22/18 16:16 Home Medications Medication Instructions Recorded Confirmed Type acetazolamide 125 mg PO BID 05/22/18 05/22/18 History albuterol sulfate [Ventolin HFA] 1 puff INHALATION Q4-6H PRN 05/22/18 05/22/18 History atorvastatin 1 tab PO HS 05/22/18 05/22/18 History budesonide-formoterol [Symbicort] 2 puff INHALATION BID 05/22/18 05/22/18 History bumetanide 1 mg PO DAILY 05/22/18 05/22/18 History calcium acetate 1 tab PO TID 05/22/18 05/22/18 History digoxin 0.25 mg PO DAILY 05/22/18 05/22/18 History diltiazem HCl [Cardizem LA] 240 mg PO DAILY 05/22/18 05/22/18 History ipratropium bromide [Atrovent HFA] 1 puff INHALATION Q6HR PRN 05/22/18 05/22/18 History metoprolol tartrate 100 mg PO BID 05/22/18 05/22/18 History omeprazole 1 cap PO DAILY 05/22/18 05/22/18 History potassium chloride [Klor-Con] 1 packet PO DAILY 05/22/18 05/22/18 History prednisone 10 mg PO DAILY 05/22/18 05/22/18 History rivaroxaban 1 tab PO DAILY 05/22/18 05/22/18 History torsemide 40 mg PO DAILY 05/22/18 05/22/18 History Exam Vital signs: Vital Signs 09/08/18 16:10 05/22/18 16:45 05/22/18 17:08 Temperature 97.8 F Pulse Rate 96 H 95 H Respiratory Rate 19 Blood Pressure 148/71 H Pulse Oximetry 97 98 05/22/18 20:00 05/22/18 21:30 05/23/18 00:00 Temperature 96.7 F L 97.8 F Pulse Rate 105 H 104 H 102 H Respiratory Rate 20 20 20 Blood Pressure 129/83 125/57 L Pulse Oximetry 93 L 97 92 L 05/23/18 07:31 05/23/18 07:37 Temperature 96.3 F L Pulse Rate 88 80 Respiratory Rate 22 20 Blood Pressure 108/53 L Pulse Oximetry 96 95 Intake & Output 05/22/18 05/23/18 05/23/18 18:59 06:59 18:59 Output Total 800 / 800 1600 / 1600 Balance -800 / -800 -1600 / -1600 Weight 204.117 kg 170.5 kg Output: Urine Amount (Catheter) 800 / 800 1600 / 1600 Indwelling Urethral Catheter 800 / 800 1600 / 1600 Narrative: GENERAL: Well-developed, morbid obesity with BMI 55.5, in no acute distress. alert and orientated HEENT: Head is normocephalic without any lesions or masses noted. Facial features are symmetric. Eyes: Pupils equal round reactive to light. Extraocular muscles are intact. Conjunctivae were clear. Oropharyngeal: Pharynx without any erythema edema. Tongue is midline without deviation. Buccal mucosa is moist without any masses or lesions NECK: Supple without any masses. Trachea midline no deviation. No JVD, no bruits are appreciated CARDIAC: Regular rhythm, regular rate. S1/S2 are heard. No murmurs gallops or rubs. LUNGS: Clear to auscultation bilaterally. No wheeze, rhonchi or rales. No use of accessory muscles on inspiration or expiration. ABDOMEN: Soft, nontender. Nondistended. Bowel sounds heard in all 4 quadrants. No organomegaly or masses. Negative rebound, negative guarding EXTREMITIES: 3+ pitting edema noted bilateral lower extremity, pulses are equal bilaterally. No cyanosis or clubbing NEUROLOGY: Mood and affect appear appropriate. Cranial nerves II through XII grossly intact. Muscle strength 5/5 in upper and lower extremities bilaterally. Deep tendon reflexes are 2+ in upper and lower extremities bilaterally. GENITALIA: Patient does have obvious scrotal edema with foreskin edema. Results - Labs CBC & Chem 7: 05/24/18 05:00 05/24/18 05:00 Labs: Laboratory Results - last 24 hr 05/22/18 05/22/18 05/22/18 17:20 17:20 17:20 CBC w Diff Auto diff final WBC 9.0 RBC 3.41 L Hgb 9.0 L Hct 29.0 L MCV 85.1 MCH 26.3 L MCHC 30.9 L RDW 20.0 H Plt Count 317 MPV 7.1 Neut % (Auto) 81.0 H Lymph % (Auto) 9.1 [place] % (Auto) 6.8 Eos % (Auto) 2.3 Baso % (Auto) 0.8 Neut # (Auto) 7.3 Lymph # (Auto) 0.8 L [place] # (Auto) 0.6 Eos # (Auto) 0.2 Baso # (Auto) 0.1 WBC Differential . Differential Comment . PT INR Sodium 141 Potassium 4.6 Chloride 103 Carbon Dioxide 26.6 Anion Gap 11 BUN 58 H Creatinine 1.70 H Estimated GFR 41 L Random Glucose 94 Calcium 8.7 Total Bilirubin 0.8 AST 60 H ALT 31 Alkaline Phosphatase 212 H Troponin I 0.02 B-Natriuretic Peptide 849 H Total Protein 7.4 Albumin 3.4 Ur Collection Type Urine Color Urine Clarity Urine pH Ur Specific [place] Urine Protein Urine Glucose (UA) Urine Ketones Urine Occult Blood Urine Nitrate Urine Bilirubin Urine Urobilinogen Ur Leukocyte Esterase Urine WBC Ur Squamous Epith Cells Micro UA Comment Ur Microscopic Review 05/22/18 05/23/18 05/23/18 17:20 06:10 06:10 CBC w Diff Auto diff final WBC 7.9 RBC 3.45 L Hgb 8.8 L Hct 29.2 L MCV 84.7 MCH 25.4 L MCHC 30.0 L RDW 20.0 H Plt Count 336 MPV 7.2 Neut % (Auto) 79.0 H Lymph % (Auto) 9.5 [place] % (Auto) 8.4 H Eos % (Auto) 2.2 Baso % (Auto) 0.9 Neut # (Auto) 6.1 Lymph # (Auto) 0.8 L [place] # (Auto) 0.7 Eos # (Auto) 0.2 Baso # (Auto) 0.1 WBC Differential . Differential Comment . PT 13.1 H INR 1.3 Sodium Potassium Chloride Carbon Dioxide Anion Gap BUN Creatinine Estimated GFR Random Glucose Calcium Total Bilirubin AST ALT Alkaline Phosphatase Troponin I B-Natriuretic Peptide Total Protein Albumin Ur Collection Type Cath Urine Color Yellow Urine Clarity Clear Urine pH 6.0 Ur Specific [place] 1.015 Urine Protein Negative Urine Glucose (UA) Negative Urine Ketones Negative Urine Occult Blood Negative Urine Nitrate Negative Urine Bilirubin Negative Urine Urobilinogen 2.0 H Ur Leukocyte Esterase Negative Urine WBC 0-5 Ur Squamous Epith Cells 0-5 Micro UA Comment Culture not ind Ur Microscopic Review Microscopic reviewed 05/23/18 06:10 CBC w Diff WBC RBC Hgb Hct MCV MCH MCHC RDW Plt Count MPV Neut % (Auto) Lymph % (Auto) [place] % (Auto) Eos % (Auto) Baso % (Auto) Neut # (Auto) Lymph # (Auto) [place] # (Auto) Eos # (Auto) Baso # (Auto) WBC Differential Differential Comment PT INR Sodium 143 Potassium 3.9 Chloride 104 Carbon Dioxide 30.8 Anion Gap 8 BUN 56 H Creatinine 1.70 H Estimated GFR 41 L Random Glucose 97 Calcium 8.4 L Total Bilirubin 1.0 AST 43 H ALT 29 Alkaline Phosphatase 193 H Troponin I B-Natriuretic Peptide Total Protein 6.7 D Albumin 3.2 L Ur Collection Type Urine Color Urine Clarity Urine pH Ur Specific [place] Urine Protein Urine Glucose (UA) Urine Ketones Urine Occult Blood Urine Nitrate Urine Bilirubin Urine Urobilinogen Ur Leukocyte Esterase Urine WBC Ur Squamous Epith Cells Micro UA Comment Ur Microscopic Review - Imaging Impressions Chest X-Ray 05/22/18 16:45 CONCLUSION: Stable appearance of a prominent mediastinum. Stable cardiomegaly. Questionable small pleural effusions versus attenuation from overlying soft tissues. Caprini VTE Risk Assessment Caprini VTE Risk Assessment: Moderate/High Risk (score >= 2) Caprini Risk Assessment Model: Point Value = 1 Point Value = 2 Point Value = 3 Point Value = 5 Age 41-60 Minor surgery BMI > 25 kg/m2 Swollen legs Varicose veins or History of unexplained or recurrent spontaneous Oral contraceptives or hormone replacement Sepsis (< 1 month) Serious lung disease, including pneumonia (< 1 month) Abnormal pulmonary function Acute myocardial infarction Congestive heart failure (< 1 month) History of inflammatory bowel disease Medical patient at bed rest Age 61-74 Arthroscopic surgery Major open surgery (> 45 min) Laparoscopic surgery (> 45 min) Malignancy Confined to bed (> 72 hours) Immobilizing plaster cast Central venous access Age >= 75 History of VTE Family history of VTE Factor V Leiden Prothrombin [id number] Lupus anticoagulant Anticardiolipin antibodies Elevated serum homocysteine Heparin-induced thrombocytopenia Other congenital or acquired thrombophilia Stroke (< 1 month) Elective arthroplasty Hip, pelvis, or leg fracture Acute spinal cord injury (< 1 month) Prophylaxis Regimen: Total Risk Factor Score Risk Level Prophylaxis Regimen 0-1 Low Early ambulation 2 Moderate Order ONE of the following: *Sequential Compression Device (SCD) *Heparin 5000 units SQ BID 3-4 Higher Order ONE of the following medications: *Heparin 5000 units SQ TID *Enoxaparin/Lovenox 40 mg SQ daily (WT < 150 kg, CrCl > 30 mL/min) *Enoxaparin/Lovenox 30 mg SQ daily (WT < 150 kg, CrCl > 10-29 mL/min) *Enoxaparin/Lovenox 30 mg SQ BID (WT < 150 kg, CrCl > 30 mL/min) AND/OR *Sequential Compression Device (SCD) 5 or more Highest Order ONE of the following medications: *Heparin 5000 units SQ TID (Preferred with Epidurals) *Enoxaparin/Lovenox 40 mg SQ daily (WT < 150 kg, CrCl > 30 mL/min) *Enoxaparin/Lovenox 30 mg SQ daily (WT < 150 kg, CrCl > 10-29 mL/min) *Enoxaparin/Lovenox 30 mg SQ BID (WT < 150 kg, CrCl > 30 mL/min) AND *Sequential Compression Device (SCD) Assessment and Plan - Assessment (1) Acute urinary retention Code(s): R33.8 - Other retention of urine Status: Acute - Plan Acute urinary retention -Unknown etiology at this time -Urinary catheter is placed emergency department with over 1 L of urinary output -Start Flomax daily -Consult urology for further recommendations Chronic diastolic congestive heart failure, possible exacerbation secondary to urinary retention -Continue Lasix 40 mg IV every 12 hours, -Continue beta-devin -Continue strict input and output -Fluid restriction Hypertension, hyperlipidemia, chronic atrial fibrillation -Home medications continued for rate control -Patient anticoagulated on Xarelto Chronic obstructive pulmonary disease -Continue O2 supplementation maintain O2 sats greater than 92% -Continue duo nebs every 2 hours as needed -Continue Symbicort -Continue prednisone Chronic kidney disease stage III -Renal functions appear to be much improved from previous admission -Continue monitor renal function -Avoid nephrotoxins DVT prevention -Patient is on Xarelto
[2018-05-24 06:22] LABS: Baso # (Auto) 0.1 th/mm3 (0.0-0.2); Baso % (Auto) 0.6 % (0.0-2.0); Eos # (Auto) 0.1 th/mm3 (0.0-0.4); Eos % (Auto) 1.1 % (0.0-4.0); Hematocrit 29.2 % (39.0-51.0); Lymph # (Auto) 0.8 th/mm3 (1.0-4.8); Lymph % (Auto) 9.7 % (9.0-44.0); Mean Corpuscular Hemoglobin 26.5 pg (27.0-34.0); Mean Corpuscular Volume 86.1 fL (80.0-100.0); Mean Platelet Volume 7.4 fL (7.0-11.0); Mono # (Auto) 0.7 th/mm3 (0.0-0.9); Mono % (Auto) 8.1 % (0.0-8.0); Neut # (Auto) 6.9 th/mm3 (1.8-7.7); Neut % (Auto) 80.5 % (16.0-70.0); Platelet Count 279 th/mm3 (150-450); Red Blood Count 3.39 mil/mm3 (4.50-5.90); Red Cell Distribution Width 20.1 % (11.6-17.2); White Blood Count 8.6 th/mm3 (4.0-11.0)
[2018-05-24 06:27] LABS: Mean Corpuscular HGB Conc 30.7 % (32.0-36.0)
[2018-05-24 06:40] LABS: Calcium 8.8 mg/dL (8.5-10.1); Carbon Dioxide 32.2 meq/L (21.0-32.0); Potassium 4.7 meq/L (3.5-5.1)
--- NOTE | 2018-05-24 07:59 | P.PN ---
Subjective Interval history: 62-year-old male who is seen and examined today for follow-up on urinary retention, fluid overload. Patient denies any new complaints. States that his respiratory status is stable. Vital signs are stable, patient remains afebrile. Physical Exam Vital signs: Vital Signs 05/23/18 11:33 05/23/18 15:23 05/23/18 20:00 Temperature 96.6 F L 98.1 F 97.9 F Pulse Rate 76 80 80 Respiratory Rate 20 20 18 Blood Pressure 114/56 L 102/58 L 120/59 L Pulse Oximetry 95 95 94 L 05/24/18 00:00 Temperature 96.8 F L Pulse Rate 81 Respiratory Rate 20 Blood Pressure 135/72 Pulse Oximetry 96 Intake & Output 05/23/18 05/24/18 05/24/18 18:59 06:59 18:59 Intake Total 960 / 960 80 / 80 Output Total 600 / 600 350 / 350 Balance 360 / 360 -270 / -270 Weight 174.3 kg Intake: Oral 960 / 960 80 / 80 Output: Urine 350 / 350 Urine Amount (Catheter) 600 / 600 Indwelling Urethral Catheter 600 / 600 Narrative: GENERAL: Well-developed, morbid obesity with BMI 55.5, in no acute distress. alert and orientated HEENT: Head is normocephalic without any lesions or masses noted. Facial features are symmetric. Eyes: Extraocular muscles are intact. Conjunctivae were clear. NECK: Supple without any masses. Trachea midline no deviation. No JVD CARDIAC: Regular rhythm, regular rate. S1/S2 are heard. No murmurs gallops or rubs. LUNGS: Clear to auscultation bilaterally. No wheeze, rhonchi or rales. No use of accessory muscles on inspiration or expiration. ABDOMEN: Soft, nontender. Nondistended. Bowel sounds heard in all 4 quadrants. No organomegaly or masses. Negative rebound, negative guarding EXTREMITIES: 3+ pitting edema noted bilateral lower extremity, pulses are equal bilaterally. No cyanosis or clubbing NEUROLOGY: Mood and affect appear appropriate. Cranial nerves II through XII grossly intact. Moving all extremities, speech is clear GENITALIA: Patient still has obvious scrotal edema with foreskin edema. - Urinary Catheter Management Indwelling Urethral Catheter Cath placed during this visit: yes Reason for continuing: Hourly intake/output Insertion date: 05/22/18 Insertion time: 17:21 Results - Labs CBC & Chem 7: 05/24/18 05:00 05/26/18 05:50 Laboratory Results - last 24 hr 05/23/18 05/24/18 05/24/18 06:10 05:00 05:00 CBC w Diff Auto diff final Auto diff final WBC 7.9 8.6 RBC 3.45 L 3.39 L Hgb 8.8 L 9.0 L Hct 29.2 L 29.2 L MCV 84.7 86.1 MCH 25.4 L 26.5 L MCHC 30.0 L 30.7 L RDW 20.0 H 20.1 H Plt Count 336 279 MPV 7.2 7.4 Neut % (Auto) 79.0 H 80.5 H Lymph % (Auto) 9.5 9.7 [place] % (Auto) 8.4 H 8.1 H Eos % (Auto) 2.2 1.1 Baso % (Auto) 0.9 0.6 Neut # (Auto) 6.1 6.9 Lymph # (Auto) 0.8 L 0.8 L [place] # (Auto) 0.7 0.7 Eos # (Auto) 0.2 0.1 Baso # (Auto) 0.1 0.1 WBC Differential . . Differential Comment . . Sodium 142 Potassium 4.7 D Chloride 102 Carbon Dioxide 32.2 H Anion Gap 8 BUN 60 H Creatinine 2.00 H Estimated GFR 34 L Random Glucose 122 H Calcium 8.8 B-Natriuretic Peptide 05/24/18 05:00 CBC w Diff WBC RBC Hgb Hct MCV MCH MCHC RDW Plt Count MPV Neut % (Auto) Lymph % (Auto) [place] % (Auto) Eos % (Auto) Baso % (Auto) Neut # (Auto) Lymph # (Auto) [place] # (Auto) Eos # (Auto) Baso # (Auto) WBC Differential Differential Comment Sodium Potassium Chloride Carbon Dioxide Anion Gap BUN Creatinine Estimated GFR Random Glucose Calcium B-Natriuretic Peptide 1544 H Assessment and Plan - Assessment (1) Acute urinary retention Code(s): R33.8 - Other retention of urine Status: Acute - Plan Acute urinary retention -Unknown etiology at this time -Urinary catheter is placed emergency department with over 1 L of urinary output -Continue Flomax daily -Consult urology for further recommendations Chronic diastolic congestive heart failure, possible exacerbation secondary to urinary retention -Continue Lasix 40 mg IV every 12 hours, -Continue beta-devin -Continue strict input and output -Continue Demadex and Diamox -Fluid restriction Hypertension, hyperlipidemia, chronic atrial fibrillation -Home medications continued for rate control -Patient anticoagulated on Xarelto Chronic obstructive pulmonary disease -Continue O2 supplementation maintain O2 sats greater than 92% -Continue duo nebs every 2 hours as needed -Continue Symbicort -Continue prednisone Acute renal failure superimposed on chronic kidney disease stage III -Renal functions are worsening today with borderline urinary output at 0.23 mL/ kg/hr -Consult wardrobe technician for further recommendations -Continue monitor renal function -Avoid nephrotoxins DVT prevention -Patient is on Xarelto
[2018-05-24] MEDS: Rivaroxaban 10 MG Tablet PO SCH (08:34)
[2018-05-24] MEDS: Torsemide 20 MG Tablet PO SCH (08:34)
[2018-05-24] MEDS: Pantoprazole Sodium 20 MG DR Tablet PO SCH (08:34)
[2018-05-24] MEDS: dilTIAZem CD 240 MG Capsule PO SCH (08:35)
[2018-05-24] MEDS: acetaZOLAMIDE 250 MG TABLET PO SCH ×2 (08:35→22:05)
[2018-05-24] MEDS: Digoxin 250 MCG Tablet PO SCH (08:35)
[2018-05-24] MEDS: Ferrous Sulfate 325 MG Tablet PO SCH ×2 (08:35→22:04)
[2018-05-24] MEDS: predniSONE 10 MG Tablet PO SCH (08:35)
[2018-05-24] MEDS: Budesonide-Formoterol 160/4.5 MCG 6 GM Inhaler INH SCH ×2 (08:40→22:04)
[2018-05-24] MEDS: Metoprolol Tartrate 100 MG Tablet PO SCH ×2 (09:00→22:05)
[2018-05-24] MEDS: Calcium Acetate 667 MG Capsule PO SCH ×3 (09:00→17:30)
--- NOTE | 2018-05-24 17:04 | P.PNURO ---
Subjective Patient symptoms today: Patient with scrotal edema and Retention. [place] catheter in place. Clinically stable. Objective Vital Signs: Vital Signs 05/23/18 20:00 05/24/18 00:00 05/24/18 08:00 Temperature 97.9 F 96.8 F L 97.4 F L Pulse Rate 80 81 73 Respiratory Rate 18 20 18 Blood Pressure 120/59 L 135/72 106/54 L Pulse Oximetry 94 L 96 99 05/24/18 12:00 05/24/18 13:58 05/24/18 15:29 Temperature 97.4 F L 97.0 F L Pulse Rate 73 73 Respiratory Rate 18 18 Blood Pressure 122/82 107/63 Pulse Oximetry 97 98 98 Intake & Output 05/23/18 05/24/18 05/24/18 18:59 06:59 18:59 Intake Total 960 / 960 80 / 80 Output Total 600 / 600 350 / 350 Balance 360 / 360 -270 / -270 Weight 174.3 kg Intake: Oral 960 / 960 80 / 80 Output: Urine 350 / 350 Urine Amount (Catheter) 600 / 600 Indwelling Urethral Catheter 600 / 600 Result Diagrams: 05/24/18 05:00 05/24/18 05:00 Medications and IVs: Active Medications Generic Name Dose Route Start Last Admin Trade Name Freq PRN Reason Stop Dose Admin Acetaminophen 650 mg 05/22/18 18:59 Tylenol PO Q4H PRN Temp > 100.4 Acetazolamide 125 mg 05/22/18 21:00 05/24/18 08:35 Diamox PO 125 mg BID DOLLY Administration Albuterol 1 ampul 05/22/18 19:05 05/23/18 07:30 Duoneb Neb (Prn) NEB 1 ampul Q2HR NEB PRN Administration DYSPNEA Atorvastatin Calcium 40 mg 05/22/18 21:00 05/23/18 21:04 Lipitor PO 40 mg HS DOLLY Administration Budesonide/Formoterol Fumarate 2 puff 05/22/18 21:00 05/24/18 08:40 Symbicort 160/4.5 Mcg Inh INH 2 puff BID DOLLY Administration Calcium Acetate 667 mg 05/23/18 09:00 05/24/18 14:20 Phoslo PO 667 mg TID DOLLY Administration Digoxin 250 mcg 05/23/18 09:00 05/24/18 08:35 Lanoxin PO 250 mcg DAILY DOLLY Administration Diltiazem HCl 240 mg 05/23/18 09:00 05/24/18 08:35 Cardizem Cd 24hr PO 240 mg DAILY DOLLY Administration Ferrous Sulfate 325 mg 05/22/18 21:00 05/24/18 08:35 Ferosul PO 325 mg BID DOLLY Administration Furosemide 40 mg 05/23/18 09:00 05/24/18 08:39 Lasix Inj IV.PUSH 40 mg BID@0900,1800 DOLLY Administration Metoprolol Tartrate 100 mg 05/22/18 21:00 05/24/18 09:00 Lopressor PO 100 mg BID DOLLY Administration Pantoprazole Sodium 20 mg 05/23/18 09:00 05/24/18 08:34 Protonix PO 20 mg DAILY DOLLY Administration Potassium Chloride 20 meq 05/23/18 09:00 05/24/18 08:34 K-Dur PO 20 meq DAILY DOLLY Administration Prednisone 10 mg 05/23/18 09:00 05/24/18 08:35 Deltasone PO 10 mg DAILY DOLLY Administration Prochlorperazine Edisylate 5 mg 05/23/18 19:22 05/23/18 19:38 Compazine Inj IV.PUSH 5 mg Q4H PRN Administration NAUSEA OR VOMITING Rivaroxaban 10 mg 05/23/18 09:00 05/24/18 08:34 Xarelto PO 10 mg DAILY DOLLY Administration Tamsulosin HCl 0.4 mg 05/23/18 11:00 05/24/18 08:35 Flomax PO 0.4 mg DAILY DOLLY Administration Torsemide 40 mg 05/24/18 09:00 05/24/18 08:34 Demadex PO 40 mg DAILY DOLLY Administration Assessment and Plan - Plan -Maintain me[place] catheter in place -Keep scrotum elevated -No urgent urological intervention indicated at this time -Patient may be discharge once medically stable with Urology followup in clinic this week for evaluation and voiding trial -Please call with questions
--- NOTE | 2018-05-25 06:27 | MB ---
cc: Armando Velazquez MD DATE: 05/24/2018 REASON FOR CONSULTATION: Elevated BUN and creatinine, for evaluation. HISTORY OF PRESENT ILLNESS: This is a 62-year-old male with a past medical history of ischemic heart disease, congestive heart failure with diastolic dysfunction, chronic obstructive pulmonary disease, atrial fibrillation, sleep apnea, hypertension, hyperlipidemia, chronic kidney disease, came to the hospital complaining of swelling of the legs and scrotum and difficulty in passing the urine. I was called to see the patient because of elevated BUN and creatinine. The patient was presented with a creatinine of 1.7. According to patient, previously he has a history of renal disease but he has not seen any recreational therapy technician on regular basis. Looking back, his creatinine was 0.8 in 12/2017, but it was higher in the beginning of December and was fluctuating from 1.3-1.8. The patient noticed that he has increased swelling of his legs and also the scrotum for the last 2-3 weeks. He has chronic lymphedema, but it was getting worse and the scrotum was getting more and more swelling and he has difficulty in passing urine. The patient was seen by urology and he was found to have urinary retention and has Barrientos catheter inserted. He currently has a Barrientos catheter and passing the urine. His creatinine on presentation was 1.7 and it increased to 2.0 today. The patient denies taking any nonsteroidal anti-inflammatory drugs. There is no history of nausea, vomiting, or diarrhea. PAST MEDICAL HISTORY: Hypertension, ischemic heart disease, diastolic dysfunction, chronic lymphedema, chronic kidney disease, hyperlipidemia, chronic obstructive pulmonary disease, atrial fibrillation. PAST SURGICAL HISTORY: Tonsillectomy, radiofrequency ablation, appendectomy, history of surgery of the arm. REVIEW OF SYSTEMS: The patient denies any history of fever, no headache, dizziness. He has chronic shortness of breath, which was slightly getting worse. He has a cough which is mainly dry. There is no chest pain or palpitation. No nausea or vomiting. No history of diarrhea. Has increased swelling of the legs and also scrotal area and has difficulty in passing urine. Currently, he has a Barrientos catheter. Denies taking any nonsteroidal anti-inflammatory drugs. SOCIAL HISTORY: There is no history of smoking. Occasionally drinks alcoholic beverages. FAMILY HISTORY: Negative for renal disease. ALLERGIES: NO KNOWN DRUG ALLERGIES. MEDICATIONS: 1. Currently, he is on following medications: Diamox 125 mg b.i.d., DuoNeb nebulizer, Lipitor 40 mg at bedtime, Symbicort inhaler, PhosLo 667 mg t.i.d., digoxin 250 mcg daily, diltiazem 240 mg once a day, ferrous sulfate 325 mg once a day, furosemide 40 mg IV b.i.d., Lopressor 100 mg b.i.d., Protonix 20 mg daily, potassium chloride 20 mEq daily, prednisone 10 mg once a day, Xarelto 10 mg daily, Flomax 0.4 mg once a day. PHYSICAL EXAMINATION: GENERAL: The patient is awake, alert. He is not in acute distress. VITAL SIGNS: Blood pressure is 133/61, temperature is 98.1, oxygen saturation on 2 liters nasal cannula is 93%-94%. HEENT: Pupils are mid-constricted. Nonicteric sclerae. Conjunctivae pale. NECK: Supple. JVD slightly elevated. LUNGS: The patient has bilateral decreased air entry with basal scattered wheezing. HEART: S1, S2. Regular rhythm. ABDOMEN: Distended, soft, lax. There is no tenderness. EXTREMITIES: He has bilateral lymphedema. Scrotum is quite swollen and he has a Barrientos catheter in place. INVESTIGATIONS: WBC count is 8.6, hemoglobin 9.0, platelet count of 279, neutrophils 80.45%. Sodium 142, potassium 4.7, chloride 102, bicarbonate 32.2, BUN 60, creatinine 2.0, glucose 132, calcium 8.8, AST is 43, ALT is 29, alkaline phosphatase 193. BNP is 154, total protein 6.7, albumin is 3.2. INR is 1.3. Urinalysis showing that he has no proteinuria. IMAGING STUDIES: The patient has chest x-ray done, which shows cardiomegaly with possible small left pleural effusion. ASSESSMENT AND PLAN: 1. Acute kidney injury. 2. Anasarca and fluid overload status. 3. Hypertension. 4. Diabetes mellitus. The patient has no proteinuria, possibly has mild stage III chronic kidney disease related to hypertensive or renovascular disease and now has acute kidney injury. Could be related to cardiorenal, does not seem to have any obstructive uropathy; but I will get an ultrasound of the kidneys. I agree with continuing the diuretics and follow the urine output and the BUN and creatinine. Thank you for the consultation and I will follow the patient while he is in the hospital. MD YAAKOV Morales/william , 09:29 PM , 09:43 PM
[2018-05-25 06:47] LABS: Potassium 4.4 meq/L (3.5-5.1)
--- NOTE | 2018-05-25 08:09 | US ---
EXAM DATE: 05/25/2018 8:03 AM EDT AGE/SEX: 62 years / Male INDICATIONS: Increased Bun and Creatinine. CLINICAL DATA: This is the patient's subsequent encounter. Patient reports that signs and symptoms h ave been present for 1 day and indicates a pain score of 0/10. MEDICAL/SURGICAL HISTORY: . Chronic obstructive pulmonary disease. Hypertension. CHF. Diabetes. Hyperlipidemia. Stage 3 chronic kidney disease. Appendectomy. Tonsillectomy. . Appendectomy. Tonsil lectomy. COMPARISON: [facility] [place], KIDNEY/RENAL/BLADDER, 05/10/2018. . MEASUREMENTS: Right Kidney:__11.1 x 5.5 x 4.5 cm Left Kidney:__10.4 x 5.4 x 4.8 cm FINDINGS: Right Kidney: Cortical medullary distinction is well preserved.. No mass or hydronephrosis. Left Kidney: Cortical medullary distinction is well-preserved. No mass or hydronephrosis. Bladder: Barrientos catheter is present. Bladder decompressed. Other: None. CONCLUSION: 1. Unremarkable sonographic appearance the kidneys. 2. No evidence of hydronephrosis. Electronically signed by: Caleb Cook MD 05/25/2018 8:07 AM EDT
--- NOTE | 2018-05-25 10:13 | P.PN ---
Subjective Interval history: 62-year-old male who is seen and examined urinary retention, fluid overload. Patient states that he does feel improved today. Patient is not getting out of bed as much. Instructed the patient that he needs to get out of bed more and remain active. Swelling has improved. Vital signs are stable, patient remains afebrile. Physical Exam Vital signs: Vital Signs 05/24/18 12:00 05/24/18 13:58 05/24/18 15:29 Temperature 97.4 F L 97.0 F L Pulse Rate 73 73 Respiratory Rate 18 18 Blood Pressure 122/82 107/63 Pulse Oximetry 97 98 98 05/24/18 19:45 05/24/18 20:00 05/25/18 00:00 Temperature 98.1 F 96.7 F L Pulse Rate 79 85 Respiratory Rate 20 20 Blood Pressure 133/61 115/56 L Pulse Oximetry 94 L 93 L 95 05/25/18 07:35 05/25/18 08:00 Temperature 96.8 F L Pulse Rate 77 Respiratory Rate 20 Blood Pressure 123/65 Pulse Oximetry 92 L 96 Intake & Output 05/24/18 05/25/18 05/25/18 18:59 06:59 18:59 Intake Total 840 / 840 365 / 365 Output Total 800 / 800 1150 / 1150 Balance 40 / 40 -785 / -785 Weight 173.8 kg Intake: Oral 840 / 840 365 / 365 Output: Urine 800 / 800 Urine Amount (Catheter) 1150 / 1150 Indwelling Urethral Catheter 1150 / 1150 Other: # Bowel Movements 1 Narrative: GENERAL: Well-developed, morbid obesity with BMI 55.5, in no acute distress. alert and orientated HEENT: Head is normocephalic without any lesions or masses noted. Facial features are symmetric. Eyes: Extraocular muscles are intact. Conjunctivae were clear. NECK: Supple without any masses. Trachea midline no deviation. No JVD CARDIAC: Regular rhythm, regular rate. S1/S2 are heard. No murmurs gallops or rubs. LUNGS: Clear to auscultation bilaterally. No wheeze, rhonchi or rales. No use of accessory muscles on inspiration or expiration. ABDOMEN: Soft, nontender. Nondistended. Bowel sounds heard in all 4 quadrants. No organomegaly or masses. Negative rebound, negative guarding EXTREMITIES: 3+ pitting edema noted bilateral lower extremity, pulses are equal bilaterally. No cyanosis or clubbing NEUROLOGY: Mood and affect appear appropriate. Cranial nerves II through XII grossly intact. Moving all extremities, speech is clear GENITALIA: Patient still has obvious scrotal edema with foreskin edema. - Urinary Catheter Management Indwelling Urethral Catheter Cath placed during this visit: yes Reason for continuing: Hourly intake/output Insertion date: 05/22/18 Insertion time: 17:21 Results - Labs CBC & Chem 7: 05/24/18 05:00 05/25/18 05:07 Laboratory Results - last 24 hr 05/25/18 05:07 Sodium 147 H Potassium 4.4 Chloride 105 Carbon Dioxide 32.0 Anion Gap 10 BUN 62 H Creatinine 1.90 H Estimated GFR 36 L Random Glucose 108 H Calcium 9.0 - Imaging Impressions Abdomen/Bladder Ultrasound 05/25/18 00:00 CONCLUSION: 1. Unremarkable sonographic appearance the kidneys. 2. No evidence of hydronephrosis. Assessment and Plan - Assessment (1) Acute urinary retention Code(s): R33.8 - Other retention of urine Status: Acute - Plan Acute urinary retention -Unknown etiology at this time -Urinary catheter was placed in emergency department with over 1 L of urinary output -Continue Flomax daily -Consult urology for further recommendations, who recommended maintaining Barrientos with outpatient follow-up Chronic diastolic congestive heart failure, possible exacerbation secondary to urinary retention -Continue Lasix 40 mg IV every 12 hours, -Continue beta-devin -Continue strict input and output -Continue Demadex and Diamox -Fluid restriction Hypertension, hyperlipidemia, chronic atrial fibrillation -Home medications continued for rate control -Patient anticoagulated on Xarelto Chronic obstructive pulmonary disease -Continue O2 supplementation maintain O2 sats greater than 92% -Continue duo nebs every 2 hours as needed -Continue Symbicort -Continue prednisone Acute renal failure superimposed on chronic kidney disease stage III -Renal functions improving today with improved urinary output -Consulted bench molder for further recommendations, who recommended continuation of present treatment plan -Continue monitor renal function -Avoid nephrotoxins DVT prevention -Patient is on Xarelto
[2018-05-25] MEDS: Torsemide 20 MG Tablet PO SCH (10:14)
[2018-05-25] MEDS: dilTIAZem CD 240 MG Capsule PO SCH (10:14)
[2018-05-25] MEDS: predniSONE 10 MG Tablet PO SCH (10:14)
[2018-05-25] MEDS: acetaZOLAMIDE 250 MG TABLET PO SCH ×2 (10:15→21:15)
[2018-05-25] MEDS: Ferrous Sulfate 325 MG Tablet PO SCH ×2 (10:16→21:15)
[2018-05-25] MEDS: Digoxin 250 MCG Tablet PO SCH (10:17)
[2018-05-25] MEDS: Metoprolol Tartrate 100 MG Tablet PO SCH ×2 (10:17→21:16)
[2018-05-25] MEDS: Pantoprazole Sodium 20 MG DR Tablet PO SCH (10:18)
[2018-05-25] MEDS: Rivaroxaban 10 MG Tablet PO SCH (10:18)
[2018-05-25] MEDS: Calcium Acetate 667 MG Capsule PO SCH ×3 (10:18→17:19)
[2018-05-25] MEDS: Budesonide-Formoterol 160/4.5 MCG 6 GM Inhaler INH SCH ×2 (10:18→21:17)
--- NOTE | 2018-05-25 16:34 | P.PNNP ---
Subjective Interval history: Patient seen in the afternoon, breathing is better, no nausea. Physical Exam Vital signs: Vital Signs 05/24/18 19:45 05/24/18 20:00 05/25/18 00:00 Temperature 98.1 F 96.7 F L Pulse Rate 79 85 Respiratory Rate 20 20 Blood Pressure 133/61 115/56 L Pulse Oximetry 94 L 93 L 95 05/25/18 07:35 05/25/18 08:00 05/25/18 11:14 Temperature 96.8 F L 96.9 F L Pulse Rate 77 79 Respiratory Rate 20 20 Blood Pressure 123/65 118/64 Pulse Oximetry 92 L 96 93 L 05/25/18 15:28 Temperature 96.6 F L Pulse Rate 75 Respiratory Rate 20 Blood Pressure 124/68 Pulse Oximetry 93 L Intake & Output 05/24/18 05/25/18 05/25/18 18:59 06:59 18:59 Intake Total 840 / 840 365 / 365 Output Total 800 / 800 1150 / 1150 Balance 40 / 40 -785 / -785 Weight 173.8 kg Intake: Oral 840 / 840 365 / 365 Output: Urine 800 / 800 Urine Amount (Catheter) 1150 / 1150 Indwelling Urethral Catheter 1150 / 1150 Other: # Bowel Movements 1 Narrative: GENERAL: Well-developed, morbid obesity with BMI 55.5, in no acute distress. alert and orientated HEENT: Head is normocephalic without any lesions or masses noted. Facial features are symmetric. Eyes: Extraocular muscles are intact. Conjunctivae were clear. NECK: Supple without any masses. Trachea midline no deviation. No JVD CARDIAC: Regular rhythm, regular rate. S1/S2 are heard. No murmurs gallops or rubs. LUNGS: Bilateral wheeze, rhonchi and basal rales. ABDOMEN: Soft, nontender. Nondistended. Bowel sounds heard in all 4 quadrants. No organomegaly or masses. Negative rebound, negative guarding EXTREMITIES: 3+ pitting edema noted bilateral lower extremity, pulses are equal bilaterally. No cyanosis or clubbing NEUROLOGY: Mood and affect appear appropriate. Cranial nerves II through XII grossly intact. Moving all extremities, speech is clear GENITALIA: Patient has moderate scrotal edema. - Urinary Catheter Management Indwelling Urethral Catheter Cath placed during this visit: yes Reason for continuing: Hourly intake/output Insertion date: 05/22/18 Insertion time: 17:21 Assessment and Plan - Plan Assessment: 1. Acute kidney injury with mild Chronic kidney disease. 2. Anasarca and fluid overload status. 3. Hypertension. 4. Diabetes mellitus. Plan: Patient has Acute kidney injury with mild chronic kidney disease. Now admitted with SOB and fluid overload status. He also has scrotal edema and difficulty urination. Barrientos's catheter done by urology. Has good urine out put. U/S Kidneys noted, Creatinine is now 1.9, stable. Continue Lasix, also on fluid restriction. Follow the urine out put and BMP.
[2018-05-25] MEDS ORDERED: Melatonin 5 MG Tablet PO PRN (20:53)
[2018-05-26 06:53] LABS: Potassium 4.3 meq/L (3.5-5.1)
[2018-05-26 06:56] LABS: Calcium 8.8 mg/dL (8.5-10.1)
[2018-05-26 06:57] LABS: Carbon Dioxide 31.8 meq/L (21.0-32.0)
[2018-05-26] MEDS: acetaZOLAMIDE 250 MG TABLET PO SCH (09:56)
[2018-05-26] MEDS: Torsemide 20 MG Tablet PO SCH (09:57)
[2018-05-26] MEDS: dilTIAZem CD 240 MG Capsule PO SCH (09:57)
[2018-05-26] MEDS: Digoxin 250 MCG Tablet PO SCH (09:57)
[2018-05-26] MEDS: Pantoprazole Sodium 20 MG DR Tablet PO SCH (09:57)
[2018-05-26] MEDS: Rivaroxaban 10 MG Tablet PO SCH (09:58)
[2018-05-26] MEDS: Metoprolol Tartrate 100 MG Tablet PO SCH (09:58)
[2018-05-26] MEDS: predniSONE 10 MG Tablet PO SCH (09:58)
[2018-05-26] MEDS: Budesonide-Formoterol 160/4.5 MCG 6 GM Inhaler INH SCH (09:59)
[2018-05-26] MEDS: Calcium Acetate 667 MG Capsule PO SCH ×3 (09:59→17:31)
[2018-05-26] MEDS: Ferrous Sulfate 325 MG Tablet PO SCH (09:59)
--- NOTE | 2018-05-26 16:13 | P.DS ---
Date of admission: 05/22/18 18:50 Primary care physician: UNKNOWN Attending physician on discharge: Maldonado Rossi Anticipated date of discharge: 05/26/18 Brief History from admission: 62-year-old male with known history of diastolic congestive heart failure, chronic obstructive pulmonary disease, chronic atrial fibrillation, obstructive sleep apnea, hypertension, hyperlipidemia, chronic kidney disease stage III, chronic back pain who presented to the hospital because of swollen scrotum and difficulty in urinating. Patient was just admitted in the hospital approximate 1 week ago and was treated for congestive heart failure exacerbation. Patient was discharged home and was doing quite well until 2 days ago he started noticing scrotal edema. Patient states he started developing difficulty in urination and only able to urinate a little amount. Patient states that progressively got worse and he had a strain harder in order to urinate. He noticed his scrotum continue to swelling and bigger and he had significant difficulty in urinating so he came to emergency department for evaluation. Patient had workup done emergency department and patient had a Barrientos placed with over a liter of urine output. Further workup emergency department actually show improvement majority of his laboratory studies. His BNP was elevated, however it is stable compared to his history. Patient denied any chest pain, shortness of breath, difficulty breathing. Patient states that he continues to have lower extremity edema. DS: Diagnosis - Discharge Diagnosis (1) Acute urinary retention Status: Acute (2) Fluid overload Status: Acute (3) Acute kidney injury Status: Acute DS: Summary Hospital Course: 62-year-old male with known history of chronic diastolic congestive heart failure, chronic obstructive pulmonary disease, chronic atrial fibrillation, obstructive sleep apnea, hypertension, hypovolemia, chronic kidney disease stage III, chronic back pain who originally presented to the hospital because of his swollen scrotum. Patient was experiencing difficulty urination and has to strain in order to get just a little bit a urine out. Patient came to the hospital found to have fluid overload. Barrientos was inserted with over 1 L of fluid output. Patient was recommended admission the hospital. Patient was started on Flomax with consultation to urologist. Patient continued with diuresis and still did not have much urinary output despite Barrientos placement. Patient did develop acute renal failure superimposed on his chronic kidney disease. Nephrology was consulted. Patient's diuresis was maximized with Lasix twice daily, torsemide and Diamox was resumed. Urology did evaluate the patient who agreed with current treatment plan and recommended continuation of the Barrientos with outpatient follow-up. Patient did have some delay in recovery with his renal functions. However he is now having significant urinary output with improved diuresis. Patient is breathing much better. Edema has significantly improved. Patient is unable to care for herself at home. Physical therapy recommends patient go to rehab. Case management consulted and has arranged rehab placement. Patient clinically stable at this time. Plan discharge accordingly. - Time Spent with Patient Total time spent providing and/or coordinating discharge services: Greater than 30 minutes - Quality: VTE Deep Vein Thrombosis/Pulmonary Embolism Present on Admission: No Exam Vital signs: Vital Signs 05/25/18 19:48 05/25/18 20:00 05/26/18 00:00 Temperature 96.2 F L 97.0 F L Pulse Rate 78 78 Respiratory Rate 20 20 Blood Pressure 117/64 105/56 L Pulse Oximetry 96 96 96 05/26/18 08:00 05/26/18 08:27 05/26/18 12:00 Temperature 96.8 F L 97.0 F L Pulse Rate 68 70 Respiratory Rate 18 19 Blood Pressure 108/64 104/66 Pulse Oximetry 99 96 99 Intake & Output 05/25/18 05/26/18 05/26/18 18:59 06:59 18:59 Intake Total 960 / 960 100 / 100 Output Total 2200 / 2200 1400 / 1400 Balance -1240 / -1240 -1300 / -1300 Weight 173.8 kg Intake: Oral 960 / 960 100 / 100 Output: Urine 1100 / 1100 1400 / 1400 Urine Amount (Catheter) 1100 / 1100 Indwelling Urethral Catheter 1100 / 1100 Other: Date of Last Bowel Movement 05/25/18 05/25/18 # Bowel Movements 1 Narrative: GENERAL: Well-developed, morbid obesity with BMI 55.5, in no acute distress. alert and orientated HEENT: Head is normocephalic without any lesions or masses noted. Facial features are symmetric. Eyes: Extraocular muscles are intact. Conjunctivae were clear. NECK: Supple without any masses. Trachea midline no deviation. No JVD CARDIAC: Regular rhythm, regular rate. S1/S2 are heard. No murmurs gallops or rubs. LUNGS: Clear to auscultation bilaterally. No wheeze, rhonchi or rales. No use of accessory muscles on inspiration or expiration. ABDOMEN: Soft, nontender. Nondistended. Bowel sounds heard in all 4 quadrants. No organomegaly or masses. Negative rebound, negative guarding EXTREMITIES: 3+ pitting edema noted bilateral lower extremity, pulses are equal bilaterally. No cyanosis or clubbing NEUROLOGY: Mood and affect appear appropriate. Cranial nerves II through XII grossly intact. Moving all extremities, speech is clear GENITALIA: Patient still has obvious scrotal edema with foreskin edema. Results Procedures completed during hospitalization: none Labs on day of discharge: Labs from last 24 hours 05/26/18 05:50 Sodium 141 Potassium 4.3 Chloride 100 Carbon Dioxide 31.8 Anion Gap 9 BUN 64 H Creatinine 1.80 H Estimated GFR 38 L Random Glucose 111 H Calcium 8.8 - Impressions ITS Impressions Chest X-Ray 05/22/18 16:45 CONCLUSION: Stable appearance of a prominent mediastinum. Stable cardiomegaly. Questionable small pleural effusions versus attenuation from overlying soft tissues. Abdomen/Bladder Ultrasound 05/25/18 00:00 CONCLUSION: 1. Unremarkable sonographic appearance the kidneys. 2. No evidence of hydronephrosis. Discharge Plan - Discharge Disposition Patient Disposition: 03 Discharge to SNF - Discharge Condition Condition: Good - Discharge Order Discharge Orders: Discharge Order (Routine); Ordered 05/26/18 Ordered By: Oziel Bridges - Discharge Details Anticipated Discharge Date: 05/26/18 - Physicians Team Primary Care Provider: UNKNOWN, Attending Provider: Maldonado Rossi Other Providers: Vicente Arce MD ; Armando Velazquez MD ; [employer] ; [facility],[place]
[2018-05-26 16:24] VITALS: TEMP 96.2
--- NOTE | 2018-05-26 16:25 | P.PNNP ---
Subjective Interval history: Patient seen in AM, alert, feeling better, breathing improving. Physical Exam Vital signs: Vital Signs 05/25/18 19:48 05/25/18 20:00 05/26/18 00:00 Temperature 96.2 F L 97.0 F L Pulse Rate 78 78 Respiratory Rate 20 20 Blood Pressure 117/64 105/56 L Pulse Oximetry 96 96 96 05/26/18 08:00 05/26/18 08:27 05/26/18 12:00 Temperature 96.8 F L 97.0 F L Pulse Rate 68 70 Respiratory Rate 18 19 Blood Pressure 108/64 104/66 Pulse Oximetry 99 96 99 Intake & Output 05/25/18 05/26/18 05/26/18 18:59 06:59 18:59 Intake Total 960 / 960 100 / 100 Output Total 2200 / 2200 1400 / 1400 Balance -1240 / -1240 -1300 / -1300 Weight 173.8 kg Intake: Oral 960 / 960 100 / 100 Output: Urine 1100 / 1100 1400 / 1400 Urine Amount (Catheter) 1100 / 1100 Indwelling Urethral Catheter 1100 / 1100 Other: Date of Last Bowel Movement 05/25/18 05/25/18 # Bowel Movements 1 Narrative: GENERAL: Well-developed, morbid obesity with BMI 55.5, in no acute distress. alert and orientated HEENT: Head is normocephalic without any lesions or masses noted. Facial features are symmetric. Eyes: Extraocular muscles are intact. Conjunctivae were clear. NECK: Supple without any masses. Trachea midline no deviation. No JVD CARDIAC: Regular rhythm, regular rate. S1/S2 are heard. No murmurs gallops or rubs. LUNGS: Clear to auscultation bilaterally. No wheeze, rhonchi or rales. No use of accessory muscles on inspiration or expiration. ABDOMEN: Soft, nontender. Nondistended. Bowel sounds heard in all 4 quadrants. No organomegaly or masses. Negative rebound, negative guarding EXTREMITIES: 3+ pitting edema noted bilateral lower extremity, pulses are equal bilaterally. No cyanosis or clubbing NEUROLOGY: Mood and affect appear appropriate. Cranial nerves II through XII grossly intact. Moving all extremities, speech is clear GENITALIA: Patient still has obvious scrotal edema with foreskin edema. - Urinary Catheter Management Indwelling Urethral Catheter Cath placed during this visit: yes Reason for continuing: Hourly intake/output Insertion date: 05/22/18 Insertion time: 17:21 Assessment and Plan - Plan Assessment: 1. Acute kidney injury with mild Chronic kidney disease. 2. Anasarca and fluid overload status. 3. Hypertension. 4. Diabetes mellitus. Plan: Patient has Acute kidney injury with mild chronic kidney disease. Now admitted with SOB and fluid overload status. He also has scrotal edema and difficulty urination. Barrientos's catheter done by urology. Has good urine out put. U/S Kidneys noted, Creatinine is stable at 1.8-1.9. Continue Lasix, also on fluid restriction. Follow the urine out put and BMP. If discharge will need follow up in 2 weeks.
[2018-05-26 20:55] VITALS: BP 126/63; PULSE 75; RESP 20; O2SAT 96
== END 2018-05-26 19:58 ==
LOC: PHED 16:06 → PHEDA 18:50 → PH3 20:41 → PHEDA 20:41
PROVIDERS: ADMIT Family Medicine; ATTEND Family Medicine

== ENCOUNTER 2018-06-01 14:02 | Inpatient (IN) ==
--- NOTE | 2018-06-01 14:57 | ED ---
HPI General Chief Complaint: Shortness of Breath/Dyspnea Stated Complaint: General Medical Time Seen by Provider: 06/01/18 14:38 Source: patient, EMS and RN notes reviewed Mode of arrival: EMS Limitations: altered mental status History of Present Illness The patient is a 62-year-old morbidly obese male with CHF, AK I, chronic urinary retention, hyperlipidemia, hypertension, ulcer, COPD, that was brought in from [facility] due to increased dyspnea. The patient is on home O2 at 2 L via nasal cannula which brought his saturation up to 98 from 89% on 5 L and then was titrated by EMS to 3L. He is maintaining 98% at 2 L and was sent in for evaluation due to altered mental status and increased confusion which is not normal for the patient. They also reported that they observed Aj blood from the patient's rectum and he has history of hemorrhoids. The patient denies any symptoms at this time but he does appear slightly confused. After reviewing previous charts it appears that the patient was discharged on the 12th of this month where he was admitted here for diastolic congestive heart failure. He also had a COPD exacerbation. A week before that he was admitted again for heart failure exacerbation and was discharged was doing good for a couple of days but then started noticing pitting edema before coming back. MD Complaint: shortness of breath Known history of: COPD and congestive heart failure Related Data Home oxygen amount: 2 liters Home Medications Medication Instructions Recorded Confirmed acetazolamide 125 mg PO BID 05/22/18 06/01/18 albuterol sulfate [Ventolin HFA] 1 puff INHALATION Q4HR PRN 05/22/18 06/01/18 atorvastatin 40 mg PO HS 05/22/18 06/01/18 budesonide-formoterol [Symbicort] 2 puff INHALATION BID 05/22/18 06/01/18 calcium acetate 667 mg PO TID 05/22/18 06/01/18 digoxin 0.25 mg PO DAILY 05/22/18 06/01/18 diltiazem HCl [Cardizem LA] 240 mg PO DAILY 05/22/18 06/01/18 ipratropium bromide [Atrovent HFA] 1 puff INHALATION Q6HR PRN 05/22/18 06/01/18 metoprolol tartrate 100 mg PO BID 05/22/18 06/01/18 omeprazole 20 mg PO DAILY 05/22/18 06/01/18 potassium chloride [Klor-Con] 1 packet PO DAILY 05/22/18 06/01/18 prednisone 10 mg PO DAILY 05/22/18 06/01/18 rivaroxaban 10 mg PO DAILY 05/22/18 06/01/18 torsemide 40 mg PO DAILY 05/22/18 06/01/18 acetaminophen [Tylenol] 650 mg PO Q4H PRN 06/01/18 06/01/18 insulin aspart U-100 [Novolog 2 - 12 unit SUB-Q ACHS 06/01/18 06/01/18 Flexpen U-100 Insulin] Previous Rx's Medication Instructions Recorded ferrous sulfate [FeroSul] 325 mg PO BID #60 tab 05/12/18 bumetanide 1 mg PO BID #0 tab 05/26/18 melatonin 5 mg PO HS PRN tab 05/26/18 tamsulosin 0.4 mg PO DAILY cap 05/26/18 Allergies Allergy/AdvReac Type Severity Reaction Status Date / Time No Known Allergies Allergy Verified 05/22/18 16:16 Review of Systems ROS Unobtainable ROS Unobtainable: unobtainable due to mental status Genitourinary Comments: Chronic indwelling [facility] Medical History Medical History Chronic kidney disease, stage III (moderate) (Acute) Hyperlipidemia (Acute) Hypertension (Acute) DENIS (obstructive sleep apnea) (Acute) COPD (chronic obstructive pulmonary disease) (Acute) Atrial fibrillation (Acute) CHF (congestive heart failure) (Acute) Diabetes mellitus (Acute) Surgical History Surgical History History of surgery on arm (Acute) Hx of tonsillectomy (Acute) H/O cardiac radiofrequency ablation (Acute) History of appendectomy (Acute) Family History Family History Father Diabetes mellitus Hypertension Mother Diabetes mellitus Social History Social History Substance History: No History of Abuse Second Hand Smoke Exposure: No Smoking Status: Never smoker How Often Do You Have a Drink Containing Alcohol: Monthly or less Recent Travel in [facility] within the Last 8 Weeks: No Recent Out of Country Travel within the Last 8 Weeks: No Immunization History Tetanus Immunization: Unable to Assess Exam Narrative Exam Narrative: GENERAL: Alert place but not time. SKIN: Focused skin assessment warm/dry. Chronic venous stasis changes on bilateral lower extremities. Multiple bruises on upper lower extremities at various healing stages. HEAD: Atraumatic. Normocephalic. EYES: Pupils equal and round. No scleral icterus. No injection or drainage. ENT: No nasal bleeding or discharge. Mucous membranes pink and moist. NECK: Trachea midline. No JVD. CARDIOVASCULAR: Regular rate and rhythm. No murmur appreciated. Anasarca noted. 3+ bilateral pitting edema lower extremities. RESPIRATORY: Crackles and rales throughout the lung pablo. Poor inspiratory effort. Expiratory wheezes. No use of accessory muscles. GASTROINTESTINAL: Obese abdomen soft, non-tender, nondistended. Hepatic and splenic margins not palpable. MUSCULOSKELETAL: No obvious deformities. No clubbing. No cyanosis. No edema. NEUROLOGICAL: Awake and alert. No obvious cranial nerve deficits. Motor grossly within normal limits. Normal speech. PSYCHIATRIC: Appropriate mood and affect; insight and judgment normal. Course Initial Documented Vital Signs Temperature 98.6 F 06/01/18 14:33 Pulse Rate 79 06/01/18 14:33 Respiratory Rate 19 06/01/18 14:33 Blood Pressure 128/60 06/01/18 14:33 Pulse Oximetry 94 L 06/01/18 14:33 Last Documented Vital Signs Temperature 99.1 F 06/03/18 16:01 Pulse Rate 86 06/03/18 18:00 Respiratory Rate 30 H 06/03/18 18:00 Blood Pressure 108/64 06/03/18 18:00 Pulse Oximetry 93 L 06/03/18 18:00 Critical Care Time Critical Care Time: Yes Total Critical Care Time: 45 Attestation: GENERAL: Awake confused does respond to questions is alert to place he knows who the president is. Thinks it is 2019. SKIN: Focused skin assessment warm/dry. Venous stasis changes on bilateral lower extremities. HEAD: Atraumatic. Normocephalic. EYES: Pupils equal and round. No scleral icterus. No injection or drainage. ENT: No nasal bleeding or discharge. Mucous membranes pink and moist. NECK: Trachea midline. No JVD. CARDIOVASCULAR: Regular rate and rhythm. No murmur appreciated. Market pitting edema on lower extremities anasarca noted. Upper extremities also with +1 pitting edema. RESPIRATORY: No accessory muscle use. Clear to auscultation. Breath sounds equal bilaterally. GASTROINTESTINAL: Abdomen soft, morbidly obese non-tender, nondistended. Hepatic and splenic margins not palpable. Cannot evaluate rectum due to body habitus. MUSCULOSKELETAL: No obvious deformities. No clubbing. No cyanosis. Market edema on bilateral lower extremities and upper extremities are edematous. NEUROLOGICAL: Awake and alert. No obvious cranial nerve deficits. Motor grossly within normal limits. Normal speech. PSYCHIATRIC: Appropriate mood and affect; Medical Decision Making MDM Narrative Medical decision making narrative: Patient with multiple problems that caused him to have hypoxemia include CHF he is currently on fluid overload with elevated BNP for which he was given Lasix IV. For COPD exacerbation he did receive inhaled steroids. He appears to have a GI bleed per report but it is impossible to evaluate the patient to the fact of his body habitus he cannot move very well or beds down here in the ED are small and he has got marked scrotal edema. Hemoglobin is stable at 9.7 which is above his baseline. Medical Screen Exam Complete: Yes Emergency Medical Condition: Yes Medical Records Medical records reviewed: Yes I reviewed the patient's medical records. Lab Data Lab results reviewed: Yes I reviewed the patient's lab results. Result diagrams: 06/03/18 10:01 06/03/18 04:28 Lab Results 06/01/18 06/01/18 06/01/18 Range/Units 16:10 16:45 16:45 WBC 6.6 (4.0-11.0) th/mm3 RBC 3.64 L (4.50-5.90) mil/mm3 Hgb 9.7 L (13.0-17.0) gm/dL Hct 33.8 L (39.0-51.0) % MCV 93.1 (80.0-100.0) fL MCH 26.6 L (27.0-34.0) pg MCHC 28.6 L (32.0-36.0) % RDW 22.5 H (11.6-17.2) % Plt Count 180 D (150-450) th/mm3 MPV 8.1 (7.0-11.0) fL Neut % (Auto) 88.6 H (16.0-70.0) % Lymph % (Auto) 3.8 L (9.0-44.0) % [place] % (Auto) 7.4 (0.0-8.0) % Eos % (Auto) 0.0 (0.0-4.0) % Baso % (Auto) 0.2 (0.0-2.0) % Neut # (Auto) 5.9 (1.8-7.7) th/mm3 Lymph # (Auto) 0.3 L (1.0-4.8) th/mm3 [place] # (Auto) 0.5 (0.0-0.9) th/mm3 Eos # (Auto) 0.0 (0.0-0.4) th/mm3 Baso # (Auto) 0.0 (0.0-0.2) th/mm3 WBC Differential . Differential Comment Auto diff final PT (9.8-11.6) sec INR Ratio APTT (24.3-30.1) sec Puncture Site Patient Temperature O2 Saturation (90-100) % ABG pH (7.380-7.420) ABG pCO2 (38-42) mmHg ABG pO2 (61-120) mmHg ABG HCO3 (22-26) mmol/L ABG O2 Content (12.0-20.0) Vol % ABG Base Excess (-2-2) mmol/L ABG Methemoglobin (0-2) % Daryn Test Hemoglobin (12.0-16.0) G/DL Carboxyhemoglobin (0-4) % O2 Delivery Device Vent Setting Inspired O2 % Critical Value Sodium (136-145) meq/L Potassium (3.5-5.1) meq/L Chloride (98-107) meq/L Carbon Dioxide (21.0-32.0) meq/L Anion Gap (5-15) meq/L BUN (7-18) mg/dL Creatinine (0.60-1.30) mg/dL Estimated GFR (>89) mL/min POC Glucose (68-110) mg/dl Random Glucose (74-106) mg/dL Lactic Acid (0.4-2.0) mmol/L Calcium (8.5-10.1) mg/dL Phosphorus (2.5-4.9) mg/dL Magnesium (1.5-2.5) mg/dL Total Bilirubin (0.2-1.0) mg/dL AST (15-37) U/L ALT (12-78) U/L Alkaline Phosphatase (45-117) U/L Ammonia (11-32) mcmol/L Total Creatine Kinase (39-308) U/L Troponin I (0.02-0.05) ng/mL B-Natriuretic Peptide (0-100) pg/mL Total Protein (6.4-8.2) g/dL Albumin (3.4-5.0) g/dL Urine Color Sarah (Yellw/Straw) Urine Clarity Turbid H (Clear) Urine pH 6.0 (5.0-8.5) Ur Specific [place] 1.011 (1.002-1.035) Urine Protein 30 H (Neg-Trace) mg/dL Urine Glucose (UA) Negative (Negative) mg/dL Urine Ketones Negative (Negative) mg/dL Urine Occult Blood Large H (Negative) Urine Nitrate Negative (Negative) Urine Bilirubin Negative (Negative) Urine Urobilinogen 2.0 H (Less than 2) mg/dL Ur Leukocyte Esterase Large H (Negative) Urine RBC 100 H (0-3) /hpf Urine WBC (0-5) /hpf Urine WBC Clumps Many H (None) Ur Squamous Epith Cells 2 (0-5) /hpf Urine Bacteria Many H (None) /hpf Urine Mucus Few H (Occasional) /lpf Micro UA Comment Cath-culture ind Ur Microscopic Review Not Reportable Urine Culture Comments Cath-cult indicated Nasal Screen MRSA (PCR) (Negative) Digoxin (0.8-2.0) ng/mL Blood Type O Positive Antibody Screen Negative 06/01/18 06/01/18 06/01/18 Range/Units 16:45 16:45 16:45 WBC (4.0-11.0) th/mm3 RBC (4.50-5.90) mil/mm3 Hgb (13.0-17.0) gm/dL Hct (39.0-51.0) % MCV (80.0-100.0) fL MCH (27.0-34.0) pg MCHC (32.0-36.0) % RDW (11.6-17.2) % Plt Count (150-450) th/mm3 MPV (7.0-11.0) fL Neut % (Auto) (16.0-70.0) % Lymph % (Auto) (9.0-44.0) % [place] % (Auto) (0.0-8.0) % Eos % (Auto) (0.0-4.0) % Baso % (Auto) (0.0-2.0) % Neut # (Auto) (1.8-7.7) th/mm3 Lymph # (Auto) (1.0-4.8) th/mm3 [place] # (Auto) (0.0-0.9) th/mm3 Eos # (Auto) (0.0-0.4) th/mm3 Baso # (Auto) (0.0-0.2) th/mm3 WBC Differential Differential Comment PT 14.0 H (9.8-11.6) sec INR 1.4 Ratio APTT 27.6 (24.3-30.1) sec Puncture Site Patient Temperature O2 Saturation (90-100) % ABG pH (7.380-7.420) ABG pCO2 (38-42) mmHg ABG pO2 (61-120) mmHg ABG HCO3 (22-26) mmol/L ABG O2 Content (12.0-20.0) Vol % ABG Base Excess (-2-2) mmol/L ABG Methemoglobin (0-2) % Daryn Test Hemoglobin (12.0-16.0) G/DL Carboxyhemoglobin (0-4) % O2 Delivery Device Vent Setting Inspired O2 % Critical Value Sodium 143 (136-145) meq/L Potassium 4.5 (3.5-5.1) meq/L Chloride 100 (98-107) meq/L Carbon Dioxide 34.4 H (21.0-32.0) meq/L Anion Gap 9 (5-15) meq/L BUN 68 H (7-18) mg/dL Creatinine 1.76 H (0.60-1.30) mg/dL Estimated GFR 39 L (>89) mL/min POC Glucose (68-110) mg/dl Random Glucose 116 H (74-106) mg/dL Lactic Acid (0.4-2.0) mmol/L Calcium 8.7 (8.5-10.1) mg/dL Phosphorus (2.5-4.9) mg/dL Magnesium (1.5-2.5) mg/dL Total Bilirubin 0.8 (0.2-1.0) mg/dL AST 53 H (15-37) U/L ALT 52 (12-78) U/L Alkaline Phosphatase 282 H (45-117) U/L Ammonia (11-32) mcmol/L Total Creatine Kinase 22 L (39-308) U/L Troponin I 0.02 (0.02-0.05) ng/mL B-Natriuretic Peptide 1771 H (0-100) pg/mL Total Protein 6.9 (6.4-8.2) g/dL Albumin 3.4 (3.4-5.0) g/dL Urine Color (Yellw/Straw) Urine Clarity (Clear) Urine pH (5.0-8.5) Ur Specific [place] (1.002-1.035) Urine Protein (Neg-Trace) mg/dL Urine Glucose (UA) (Negative) mg/dL Urine Ketones (Negative) mg/dL Urine Occult Blood (Negative) Urine Nitrate (Negative) Urine Bilirubin (Negative) Urine Urobilinogen (Less than 2) mg/dL Ur Leukocyte Esterase (Negative) Urine RBC (0-3) /hpf Urine WBC (0-5) /hpf Urine WBC Clumps (None) Ur Squamous Epith Cells (0-5) /hpf Urine Bacteria (None) /hpf Urine Mucus (Occasional) /lpf Micro UA Comment Ur Microscopic Review Urine Culture Comments Nasal Screen MRSA (PCR) (Negative) Digoxin (0.8-2.0) ng/mL Blood Type Antibody Screen 06/01/18 06/01/18 06/01/18 Range/Units 17:35 20:50 21:19 WBC (4.0-11.0) th/mm3 RBC (4.50-5.90) mil/mm3 Hgb (13.0-17.0) gm/dL Hct (39.0-51.0) % MCV (80.0-100.0) fL MCH (27.0-34.0) pg MCHC (32.0-36.0) % RDW (11.6-17.2) % Plt Count (150-450) th/mm3 MPV (7.0-11.0) fL Neut % (Auto) (16.0-70.0) % Lymph % (Auto) (9.0-44.0) % [place] % (Auto) (0.0-8.0) % Eos % (Auto) (0.0-4.0) % Baso % (Auto) (0.0-2.0) % Neut # (Auto) (1.8-7.7) th/mm3 Lymph # (Auto) (1.0-4.8) th/mm3 [place] # (Auto) (0.0-0.9) th/mm3 Eos # (Auto) (0.0-0.4) th/mm3 Baso # (Auto) (0.0-0.2) th/mm3 WBC Differential Differential Comment PT (9.8-11.6) sec INR Ratio APTT (24.3-30.1) sec Puncture Site Left radial Patient Temperature 98.6 O2 Saturation 87 L* (90-100) % ABG pH 7.27 L* (7.380-7.420) ABG pCO2 79 H* (38-42) mmHg ABG pO2 63 (61-120) mmHg ABG HCO3 35 H (22-26) mmol/L ABG O2 Content 11.5 L (12.0-20.0) Vol % ABG Base Excess 8.5 H (-2-2) mmol/L ABG Methemoglobin 0.6 (0-2) % Daryn Test Present Hemoglobin 9.4 L (12.0-16.0) G/DL Carboxyhemoglobin 2.9 (0-4) % O2 Delivery Device Bipap Vent Setting [id number] Inspired O2 30 % Critical Value Yes Sodium (136-145) meq/L Potassium (3.5-5.1) meq/L Chloride (98-107) meq/L Carbon Dioxide (21.0-32.0) meq/L Anion Gap (5-15) meq/L BUN (7-18) mg/dL Creatinine (0.60-1.30) mg/dL Estimated GFR (>89) mL/min POC Glucose 115 H (68-110) mg/dl Random Glucose (74-106) mg/dL Lactic Acid (0.4-2.0) mmol/L Calcium (8.5-10.1) mg/dL Phosphorus (2.5-4.9) mg/dL Magnesium (1.5-2.5) mg/dL Total Bilirubin (0.2-1.0) mg/dL AST (15-37) U/L ALT (12-78) U/L Alkaline Phosphatase (45-117) U/L Ammonia (11-32) mcmol/L Total Creatine Kinase (39-308) U/L Troponin I (0.02-0.05) ng/mL B-Natriuretic Peptide (0-100) pg/mL Total Protein (6.4-8.2) g/dL Albumin (3.4-5.0) g/dL Urine Color (Yellw/Straw) Urine Clarity (Clear) Urine pH (5.0-8.5) Ur Specific [place] (1.002-1.035) Urine Protein (Neg-Trace) mg/dL Urine Glucose (UA) (Negative) mg/dL Urine Ketones (Negative) mg/dL Urine Occult Blood (Negative) Urine Nitrate (Negative) Urine Bilirubin (Negative) Urine Urobilinogen (Less than 2) mg/dL Ur Leukocyte Esterase (Negative) Urine RBC (0-3) /hpf Urine WBC (0-5) /hpf Urine WBC Clumps (None) Ur Squamous Epith Cells (0-5) /hpf Urine Bacteria (None) /hpf Urine Mucus (Occasional) /lpf Micro UA Comment Ur Microscopic Review Urine Culture Comments Nasal Screen MRSA (PCR) Not detected (Negative) Digoxin (0.8-2.0) ng/mL Blood Type Antibody Screen 06/01/18 06/02/18 06/02/18 Range/Units 22:00 04:03 04:03 WBC 6.7 (4.0-11.0) th/mm3 RBC 3.64 L (4.50-5.90) mil/mm3 Hgb 9.6 L (13.0-17.0) gm/dL Hct 33.0 L (39.0-51.0) % MCV 90.6 (80.0-100.0) fL MCH 26.4 L (27.0-34.0) pg MCHC 29.1 L (32.0-36.0) % RDW 22.4 H (11.6-17.2) % Plt Count 160 (150-450) th/mm3 MPV 8.0 (7.0-11.0) fL Neut % (Auto) 95.6 H (16.0-70.0) % Lymph % (Auto) 2.2 L (9.0-44.0) % [place] % (Auto) 2.2 (0.0-8.0) % Eos % (Auto) 0.0 (0.0-4.0) % Baso % (Auto) 0.0 (0.0-2.0) % Neut # (Auto) 6.4 (1.8-7.7) th/mm3 Lymph # (Auto) 0.2 L (1.0-4.8) th/mm3 [place] # (Auto) 0.1 (0.0-0.9) th/mm3 Eos # (Auto) 0.0 (0.0-0.4) th/mm3 Baso # (Auto) 0.0 (0.0-0.2) th/mm3 WBC Differential . Differential Comment Auto diff final PT 13.6 H (9.8-11.6) sec INR 1.3 Ratio APTT 25.7 (24.3-30.1) sec Puncture Site Patient Temperature O2 Saturation (90-100) % ABG pH (7.380-7.420) ABG pCO2 (38-42) mmHg ABG pO2 (61-120) mmHg ABG HCO3 (22-26) mmol/L ABG O2 Content (12.0-20.0) Vol % ABG Base Excess (-2-2) mmol/L ABG Methemoglobin (0-2) % Daryn Test Hemoglobin (12.0-16.0) G/DL Carboxyhemoglobin (0-4) % O2 Delivery Device Vent Setting Inspired O2 % Critical Value Sodium (136-145) meq/L Potassium (3.5-5.1) meq/L Chloride (98-107) meq/L Carbon Dioxide (21.0-32.0) meq/L Anion Gap (5-15) meq/L BUN (7-18) mg/dL Creatinine (0.60-1.30) mg/dL Estimated GFR (>89) mL/min POC Glucose (68-110) mg/dl Random Glucose (74-106) mg/dL Lactic Acid (0.4-2.0) mmol/L Calcium (8.5-10.1) mg/dL Phosphorus (2.5-4.9) mg/dL Magnesium (1.5-2.5) mg/dL Total Bilirubin (0.2-1.0) mg/dL AST (15-37) U/L ALT (12-78) U/L Alkaline Phosphatase (45-117) U/L Ammonia (11-32) mcmol/L Total Creatine Kinase (39-308) U/L Troponin I 0.03 (0.02-0.05) ng/mL B-Natriuretic Peptide (0-100) pg/mL Total Protein (6.4-8.2) g/dL Albumin (3.4-5.0) g/dL Urine Color (Yellw/Straw) Urine Clarity (Clear) Urine pH (5.0-8.5) Ur Specific [place] (1.002-1.035) Urine Protein (Neg-Trace) mg/dL Urine Glucose (UA) (Negative) mg/dL Urine Ketones (Negative) mg/dL Urine Occult Blood (Negative) Urine Nitrate (Negative) Urine Bilirubin (Negative) Urine Urobilinogen (Less than 2) mg/dL Ur Leukocyte Esterase (Negative) Urine RBC (0-3) /hpf Urine WBC (0-5) /hpf Urine WBC Clumps (None) Ur Squamous Epith Cells (0-5) /hpf Urine Bacteria (None) /hpf Urine Mucus (Occasional) /lpf Micro UA Comment Ur Microscopic Review Urine Culture Comments Nasal Screen MRSA (PCR) (Negative) Digoxin (0.8-2.0) ng/mL Blood Type Antibody Screen 06/02/18 06/02/18 06/02/18 Range/Units 04:03 05:44 07:39 WBC (4.0-11.0) th/mm3 RBC (4.50-5.90) mil/mm3 Hgb (13.0-17.0) gm/dL Hct (39.0-51.0) % MCV (80.0-100.0) fL MCH (27.0-34.0) pg MCHC (32.0-36.0) % RDW (11.6-17.2) % Plt Count (150-450) th/mm3 MPV (7.0-11.0) fL Neut % (Auto) (16.0-70.0) % Lymph % (Auto) (9.0-44.0) % [place] % (Auto) (0.0-8.0) % Eos % (Auto) (0.0-4.0) % Baso % (Auto) (0.0-2.0) % Neut # (Auto) (1.8-7.7) th/mm3 Lymph # (Auto) (1.0-4.8) th/mm3 [place] # (Auto) (0.0-0.9) th/mm3 Eos # (Auto) (0.0-0.4) th/mm3 Baso # (Auto) (0.0-0.2) th/mm3 WBC Differential Differential Comment PT (9.8-11.6) sec INR Ratio APTT (24.3-30.1) sec Puncture Site Right radial Patient Temperature 98.6 O2 Saturation 92 (90-100) % ABG pH 7.32 L (7.380-7.420) ABG pCO2 70 H* (38-42) mmHg ABG pO2 91 (61-120) mmHg ABG HCO3 35 H (22-26) mmol/L ABG O2 Content 12.7 (12.0-20.0) Vol % ABG Base Excess 9.0 H (-2-2) mmol/L ABG Methemoglobin 1.5 (0-2) % Daryn Test Present Hemoglobin 9.7 L (12.0-16.0) G/DL Carboxyhemoglobin 2.5 (0-4) % O2 Delivery Device Bipap Vent Setting 18/5 Inspired O2 30 % Critical Value Yes Sodium 144 (136-145) meq/L Potassium 3.9 (3.5-5.1) meq/L Chloride 99 (98-107) meq/L Carbon Dioxide 34.8 H (21.0-32.0) meq/L Anion Gap 10 (5-15) meq/L BUN 73 H (7-18) mg/dL Creatinine 1.59 H (0.60-1.30) mg/dL Estimated GFR 44 L (>89) mL/min POC Glucose 182 H (68-110) mg/dl Random Glucose 126 H (74-106) mg/dL Lactic Acid (0.4-2.0) mmol/L Calcium 8.7 (8.5-10.1) mg/dL Phosphorus 4.7 (2.5-4.9) mg/dL Magnesium 2.3 (1.5-2.5) mg/dL Total Bilirubin 0.9 (0.2-1.0) mg/dL AST 39 H (15-37) U/L ALT 45 (12-78) U/L Alkaline Phosphatase 254 H (45-117) U/L Ammonia (11-32) mcmol/L Total Creatine Kinase (39-308) U/L Troponin I 0.02 (0.02-0.05) ng/mL B-Natriuretic Peptide (0-100) pg/mL Total Protein 6.6 (6.4-8.2) g/dL Albumin 3.4 (3.4-5.0) g/dL Urine Color (Yellw/Straw) Urine Clarity (Clear) Urine pH (5.0-8.5) Ur Specific [place] (1.002-1.035) Urine Protein (Neg-Trace) mg/dL Urine Glucose (UA) (Negative) mg/dL Urine Ketones (Negative) mg/dL Urine Occult Blood (Negative) Urine Nitrate (Negative) Urine Bilirubin (Negative) Urine Urobilinogen (Less than 2) mg/dL Ur Leukocyte Esterase (Negative) Urine RBC (0-3) /hpf Urine WBC (0-5) /hpf Urine WBC Clumps (None) Ur Squamous Epith Cells (0-5) /hpf Urine Bacteria (None) /hpf Urine Mucus (Occasional) /lpf Micro UA Comment Ur Microscopic Review Urine Culture Comments Nasal Screen MRSA (PCR) (Negative) Digoxin (0.8-2.0) ng/mL Blood Type Antibody Screen 06/02/18 06/02/18 06/02/18 Range/Units 11:19 14:10 16:58 WBC (4.0-11.0) th/mm3 RBC (4.50-5.90) mil/mm3 Hgb 9.3 L (13.0-17.0) gm/dL Hct (39.0-51.0) % MCV (80.0-100.0) fL MCH (27.0-34.0) pg MCHC (32.0-36.0) % RDW (11.6-17.2) % Plt Count (150-450) th/mm3 MPV (7.0-11.0) fL Neut % (Auto) (16.0-70.0) % Lymph % (Auto) (9.0-44.0) % [place] % (Auto) (0.0-8.0) % Eos % (Auto) (0.0-4.0) % Baso % (Auto) (0.0-2.0) % Neut # (Auto) (1.8-7.7) th/mm3 Lymph # (Auto) (1.0-4.8) th/mm3 [place] # (Auto) (0.0-0.9) th/mm3 Eos # (Auto) (0.0-0.4) th/mm3 Baso # (Auto) (0.0-0.2) th/mm3 WBC Differential Differential Comment PT (9.8-11.6) sec INR Ratio APTT (24.3-30.1) sec Puncture Site Patient Temperature O2 Saturation (90-100) % ABG pH (7.380-7.420) ABG pCO2 (38-42) mmHg ABG pO2 (61-120) mmHg ABG HCO3 (22-26) mmol/L ABG O2 Content (12.0-20.0) Vol % ABG Base Excess (-2-2) mmol/L ABG Methemoglobin (0-2) % Daryn Test Hemoglobin (12.0-16.0) G/DL Carboxyhemoglobin (0-4) % O2 Delivery Device Vent Setting Inspired O2 % Critical Value Sodium (136-145) meq/L Potassium (3.5-5.1) meq/L Chloride (98-107) meq/L Carbon Dioxide (21.0-32.0) meq/L Anion Gap (5-15) meq/L BUN (7-18) mg/dL Creatinine (0.60-1.30) mg/dL Estimated GFR (>89) mL/min POC Glucose 199 H 168 H (68-110) mg/dl Random Glucose (74-106) mg/dL Lactic Acid (0.4-2.0) mmol/L Calcium (8.5-10.1) mg/dL Phosphorus (2.5-4.9) mg/dL Magnesium (1.5-2.5) mg/dL Total Bilirubin (0.2-1.0) mg/dL AST (15-37) U/L ALT (12-78) U/L Alkaline Phosphatase (45-117) U/L Ammonia (11-32) mcmol/L Total Creatine Kinase (39-308) U/L Troponin I (0.02-0.05) ng/mL B-Natriuretic Peptide (0-100) pg/mL Total Protein (6.4-8.2) g/dL Albumin (3.4-5.0) g/dL Urine Color (Yellw/Straw) Urine Clarity (Clear) Urine pH (5.0-8.5) Ur Specific [place] (1.002-1.035) Urine Protein (Neg-Trace) mg/dL Urine Glucose (UA) (Negative) mg/dL Urine Ketones (Negative) mg/dL Urine Occult Blood (Negative) Urine Nitrate (Negative) Urine Bilirubin (Negative) Urine Urobilinogen (Less than 2) mg/dL Ur Leukocyte Esterase (Negative) Urine RBC (0-3) /hpf Urine WBC (0-5) /hpf Urine WBC Clumps (None) Ur Squamous Epith Cells (0-5) /hpf Urine Bacteria (None) /hpf Urine Mucus (Occasional) /lpf Micro UA Comment Ur Microscopic Review Urine Culture Comments Nasal Screen MRSA (PCR) (Negative) Digoxin (0.8-2.0) ng/mL Blood Type Antibody Screen 06/02/18 06/02/18 06/03/18 Range/Units 20:14 21:42 04:28 WBC 4.2 (4.0-11.0) th/mm3 RBC 3.52 L (4.50-5.90) mil/mm3 Hgb 9.1 L 9.3 L (13.0-17.0) gm/dL Hct 31.5 L (39.0-51.0) % MCV 89.7 (80.0-100.0) fL MCH 26.4 L (27.0-34.0) pg MCHC 29.4 L (32.0-36.0) % RDW 21.9 H (11.6-17.2) % Plt Count 162 (150-450) th/mm3 MPV 7.9 (7.0-11.0) fL Neut % (Auto) 94.1 H (16.0-70.0) % Lymph % (Auto) 3.0 L (9.0-44.0) % [place] % (Auto) 2.7 (0.0-8.0) % Eos % (Auto) 0.1 (0.0-4.0) % Baso % (Auto) 0.1 (0.0-2.0) % Neut # (Auto) 4.0 (1.8-7.7) th/mm3 Lymph # (Auto) 0.1 L (1.0-4.8) th/mm3 [place] # (Auto) 0.1 (0.0-0.9) th/mm3 Eos # (Auto) 0.0 (0.0-0.4) th/mm3 Baso # (Auto) 0.0 (0.0-0.2) th/mm3 WBC Differential . Differential Comment Auto diff final PT (9.8-11.6) sec INR Ratio APTT (24.3-30.1) sec Puncture Site Patient Temperature O2 Saturation (90-100) % ABG pH (7.380-7.420) ABG pCO2 (38-42) mmHg ABG pO2 (61-120) mmHg ABG HCO3 (22-26) mmol/L ABG O2 Content (12.0-20.0) Vol % ABG Base Excess (-2-2) mmol/L ABG Methemoglobin (0-2) % Daryn Test Hemoglobin (12.0-16.0) G/DL Carboxyhemoglobin (0-4) % O2 Delivery Device Vent Setting Inspired O2 % Critical Value Sodium (136-145) meq/L Potassium (3.5-5.1) meq/L Chloride (98-107) meq/L Carbon Dioxide (21.0-32.0) meq/L Anion Gap (5-15) meq/L BUN (7-18) mg/dL Creatinine (0.60-1.30) mg/dL Estimated GFR (>89) mL/min POC Glucose 178 H (68-110) mg/dl Random Glucose (74-106) mg/dL Lactic Acid (0.4-2.0) mmol/L Calcium (8.5-10.1) mg/dL Phosphorus (2.5-4.9) mg/dL Magnesium (1.5-2.5) mg/dL Total Bilirubin (0.2-1.0) mg/dL AST (15-37) U/L ALT (12-78) U/L Alkaline Phosphatase (45-117) U/L Ammonia (11-32) mcmol/L Total Creatine Kinase (39-308) U/L Troponin I (0.02-0.05) ng/mL B-Natriuretic Peptide (0-100) pg/mL Total Protein (6.4-8.2) g/dL Albumin (3.4-5.0) g/dL Urine Color (Yellw/Straw) Urine Clarity (Clear) Urine pH (5.0-8.5) Ur Specific [place] (1.002-1.035) Urine Protein (Neg-Trace) mg/dL Urine Glucose (UA) (Negative) mg/dL Urine Ketones (Negative) mg/dL Urine Occult Blood (Negative) Urine Nitrate (Negative) Urine Bilirubin (Negative) Urine Urobilinogen (Less than 2) mg/dL Ur Leukocyte Esterase (Negative) Urine RBC (0-3) /hpf Urine WBC (0-5) /hpf Urine WBC Clumps (None) Ur Squamous Epith Cells (0-5) /hpf Urine Bacteria (None) /hpf Urine Mucus (Occasional) /lpf Micro UA Comment Ur Microscopic Review Urine Culture Comments Nasal Screen MRSA (PCR) (Negative) Digoxin (0.8-2.0) ng/mL Blood Type Antibody Screen 06/03/18 06/03/18 06/03/18 Range/Units 04:28 04:28 04:28 WBC (4.0-11.0) th/mm3 RBC (4.50-5.90) mil/mm3 Hgb (13.0-17.0) gm/dL Hct (39.0-51.0) % MCV (80.0-100.0) fL MCH (27.0-34.0) pg MCHC (32.0-36.0) % RDW (11.6-17.2) % Plt Count (150-450) th/mm3 MPV (7.0-11.0) fL Neut % (Auto) (16.0-70.0) % Lymph % (Auto) (9.0-44.0) % [place] % (Auto) (0.0-8.0) % Eos % (Auto) (0.0-4.0) % Baso % (Auto) (0.0-2.0) % Neut # (Auto) (1.8-7.7) th/mm3 Lymph # (Auto) (1.0-4.8) th/mm3 [place] # (Auto) (0.0-0.9) th/mm3 Eos # (Auto) (0.0-0.4) th/mm3 Baso # (Auto) (0.0-0.2) th/mm3 WBC Differential Differential Comment PT 13.3 H (9.8-11.6) sec INR 1.3 Ratio APTT 24.7 (24.3-30.1) sec Puncture Site Patient Temperature O2 Saturation (90-100) % ABG pH (7.380-7.420) ABG pCO2 (38-42) mmHg ABG pO2 (61-120) mmHg ABG HCO3 (22-26) mmol/L ABG O2 Content (12.0-20.0) Vol % ABG Base Excess (-2-2) mmol/L ABG Methemoglobin (0-2) % Daryn Test Hemoglobin (12.0-16.0) G/DL Carboxyhemoglobin (0-4) % O2 Delivery Device Vent Setting Inspired O2 % Critical Value Sodium 143 (136-145) meq/L Potassium 3.7 (3.5-5.1) meq/L Chloride 99 (98-107) meq/L Carbon Dioxide 33.4 H (21.0-32.0) meq/L Anion Gap 11 (5-15) meq/L BUN 76 H (7-18) mg/dL Creatinine 1.53 H (0.60-1.30) mg/dL Estimated GFR 46 L (>89) mL/min POC Glucose (68-110) mg/dl Random Glucose 150 H (74-106) mg/dL Lactic Acid 1.2 (0.4-2.0) mmol/L Calcium 8.7 (8.5-10.1) mg/dL Phosphorus 4.5 (2.5-4.9) mg/dL Magnesium 2.3 (1.5-2.5) mg/dL Total Bilirubin 0.8 (0.2-1.0) mg/dL AST 19 (15-37) U/L ALT 36 (12-78) U/L Alkaline Phosphatase 204 H (45-117) U/L Ammonia (11-32) mcmol/L Total Creatine Kinase (39-308) U/L Troponin I (0.02-0.05) ng/mL B-Natriuretic Peptide (0-100) pg/mL Total Protein 6.6 (6.4-8.2) g/dL Albumin 3.5 (3.4-5.0) g/dL Urine Color (Yellw/Straw) Urine Clarity (Clear) Urine pH (5.0-8.5) Ur Specific [place] (1.002-1.035) Urine Protein (Neg-Trace) mg/dL Urine Glucose (UA) (Negative) mg/dL Urine Ketones (Negative) mg/dL Urine Occult Blood (Negative) Urine Nitrate (Negative) Urine Bilirubin (Negative) Urine Urobilinogen (Less than 2) mg/dL Ur Leukocyte Esterase (Negative) Urine RBC (0-3) /hpf Urine WBC (0-5) /hpf Urine WBC Clumps (None) Ur Squamous Epith Cells (0-5) /hpf Urine Bacteria (None) /hpf Urine Mucus (Occasional) /lpf Micro UA Comment Ur Microscopic Review Urine Culture Comments Nasal Screen MRSA (PCR) (Negative) Digoxin 1.7 (0.8-2.0) ng/mL Blood Type Antibody Screen 06/03/18 06/03/18 06/03/18 Range/Units 04:28 07:50 10:01 WBC 5.0 (4.0-11.0) th/mm3 RBC 3.47 L (4.50-5.90) mil/mm3 Hgb 9.2 L (13.0-17.0) gm/dL Hct 31.4 L (39.0-51.0) % MCV 90.7 (80.0-100.0) fL MCH 26.5 L (27.0-34.0) pg MCHC 29.2 L (32.0-36.0) % RDW 22.9 H (11.6-17.2) % Plt Count 164 (150-450) th/mm3 MPV 8.0 (7.0-11.0) fL Neut % (Auto) 94.4 H (16.0-70.0) % Lymph % (Auto) 1.9 L (9.0-44.0) % [place] % (Auto) 3.7 (0.0-8.0) % Eos % (Auto) 0.0 (0.0-4.0) % Baso % (Auto) 0.0 (0.0-2.0) % Neut # (Auto) 4.8 (1.8-7.7) th/mm3 Lymph # (Auto) 0.1 L (1.0-4.8) th/mm3 [place] # (Auto) 0.2 (0.0-0.9) th/mm3 Eos # (Auto) 0.0 (0.0-0.4) th/mm3 Baso # (Auto) 0.0 (0.0-0.2) th/mm3 WBC Differential . Differential Comment Auto diff final PT (9.8-11.6) sec INR Ratio APTT (24.3-30.1) sec Puncture Site Patient Temperature O2 Saturation (90-100) % ABG pH (7.380-7.420) ABG pCO2 (38-42) mmHg ABG pO2 (61-120) mmHg ABG HCO3 (22-26) mmol/L ABG O2 Content (12.0-20.0) Vol % ABG Base Excess (-2-2) mmol/L ABG Methemoglobin (0-2) % Daryn Test Hemoglobin (12.0-16.0) G/DL Carboxyhemoglobin (0-4) % O2 Delivery Device Vent Setting Inspired O2 % Critical Value Sodium (136-145) meq/L Potassium (3.5-5.1) meq/L Chloride (98-107) meq/L Carbon Dioxide (21.0-32.0) meq/L Anion Gap (5-15) meq/L BUN (7-18) mg/dL Creatinine (0.60-1.30) mg/dL Estimated GFR (>89) mL/min POC Glucose 161 H (68-110) mg/dl Random Glucose (74-106) mg/dL Lactic Acid (0.4-2.0) mmol/L Calcium (8.5-10.1) mg/dL Phosphorus (2.5-4.9) mg/dL Magnesium (1.5-2.5) mg/dL Total Bilirubin (0.2-1.0) mg/dL AST (15-37) U/L ALT (12-78) U/L Alkaline Phosphatase (45-117) U/L Ammonia 32 (11-32) mcmol/L Total Creatine Kinase (39-308) U/L Troponin I (0.02-0.05) ng/mL B-Natriuretic Peptide (0-100) pg/mL Total Protein (6.4-8.2) g/dL Albumin (3.4-5.0) g/dL Urine Color (Yellw/Straw) Urine Clarity (Clear) Urine pH (5.0-8.5) Ur Specific [place] (1.002-1.035) Urine Protein (Neg-Trace) mg/dL Urine Glucose (UA) (Negative) mg/dL Urine Ketones (Negative) mg/dL Urine Occult Blood (Negative) Urine Nitrate (Negative) Urine Bilirubin (Negative) Urine Urobilinogen (Less than 2) mg/dL Ur Leukocyte Esterase (Negative) Urine RBC (0-3) /hpf Urine WBC (0-5) /hpf Urine WBC Clumps (None) Ur Squamous Epith Cells (0-5) /hpf Urine Bacteria (None) /hpf Urine Mucus (Occasional) /lpf Micro UA Comment Ur Microscopic Review Urine Culture Comments Nasal Screen MRSA (PCR) (Negative) Digoxin (0.8-2.0) ng/mL Blood Type Antibody Screen 06/03/18 06/03/18 Range/Units 11:30 16:22 WBC (4.0-11.0) th/mm3 RBC (4.50-5.90) mil/mm3 Hgb (13.0-17.0) gm/dL Hct (39.0-51.0) % MCV (80.0-100.0) fL MCH (27.0-34.0) pg MCHC (32.0-36.0) % RDW (11.6-17.2) % Plt Count (150-450) th/mm3 MPV (7.0-11.0) fL Neut % (Auto) (16.0-70.0) % Lymph % (Auto) (9.0-44.0) % [place] % (Auto) (0.0-8.0) % Eos % (Auto) (0.0-4.0) % Baso % (Auto) (0.0-2.0) % Neut # (Auto) (1.8-7.7) th/mm3 Lymph # (Auto) (1.0-4.8) th/mm3 [place] # (Auto) (0.0-0.9) th/mm3 Eos # (Auto) (0.0-0.4) th/mm3 Baso # (Auto) (0.0-0.2) th/mm3 WBC Differential Differential Comment PT (9.8-11.6) sec INR Ratio APTT (24.3-30.1) sec Puncture Site Patient Temperature O2 Saturation (90-100) % ABG pH (7.380-7.420) ABG pCO2 (38-42) mmHg ABG pO2 (61-120) mmHg ABG HCO3 (22-26) mmol/L ABG O2 Content (12.0-20.0) Vol % ABG Base Excess (-2-2) mmol/L ABG Methemoglobin (0-2) % Daryn Test Hemoglobin (12.0-16.0) G/DL Carboxyhemoglobin (0-4) % O2 Delivery Device Vent Setting Inspired O2 % Critical Value Sodium (136-145) meq/L Potassium (3.5-5.1) meq/L Chloride (98-107) meq/L Carbon Dioxide (21.0-32.0) meq/L Anion Gap (5-15) meq/L BUN (7-18) mg/dL Creatinine (0.60-1.30) mg/dL Estimated GFR (>89) mL/min POC Glucose 219 H 214 H (68-110) mg/dl Random Glucose (74-106) mg/dL Lactic Acid (0.4-2.0) mmol/L Calcium (8.5-10.1) mg/dL Phosphorus (2.5-4.9) mg/dL Magnesium (1.5-2.5) mg/dL Total Bilirubin (0.2-1.0) mg/dL AST (15-37) U/L ALT (12-78) U/L Alkaline Phosphatase (45-117) U/L Ammonia (11-32) mcmol/L Total Creatine Kinase (39-308) U/L Troponin I (0.02-0.05) ng/mL B-Natriuretic Peptide (0-100) pg/mL Total Protein (6.4-8.2) g/dL Albumin (3.4-5.0) g/dL Urine Color (Yellw/Straw) Urine Clarity (Clear) Urine pH (5.0-8.5) Ur Specific [place] (1.002-1.035) Urine Protein (Neg-Trace) mg/dL Urine Glucose (UA) (Negative) mg/dL Urine Ketones (Negative) mg/dL Urine Occult Blood (Negative) Urine Nitrate (Negative) Urine Bilirubin (Negative) Urine Urobilinogen (Less than 2) mg/dL Ur Leukocyte Esterase (Negative) Urine RBC (0-3) /hpf Urine WBC (0-5) /hpf Urine WBC Clumps (None) Ur Squamous Epith Cells (0-5) /hpf Urine Bacteria (None) /hpf Urine Mucus (Occasional) /lpf Micro UA Comment Ur Microscopic Review Urine Culture Comments Nasal Screen MRSA (PCR) (Negative) Digoxin (0.8-2.0) ng/mL Blood Type Antibody Screen Imaging Data Radiologist's impression: Chest X-Ray 06/01/18 14:48 CONCLUSION: Cardiomegaly. No acute pulmonary disease. Prominent mediastinal as above. CT scan is recommended if clinically indicated. Chest CT 06/01/18 18:17 CONCLUSION: 1. Moderate sized partially loculated right pleural effusion. Trace left pleural fluid. Partial compressive atelectasis of the right lung. 2. Moderate coronary calcifications. Chest X-Ray 06/03/18 06:00 CONCLUSION: Improving aeration ECG Data EKG Prior to Arrival: No Attestation: I personally reviewed and interpreted this ECG as follows: Interpretation: Atrial fibrillation. Rate [address]-T wave analysis. Left anterior fascicular block. Discharge Plan Discharge Disposition Patient Disposition: 30 Still Patient Discharge Condition Condition: Critical Discharge Details Diagnosis: Anasarca, CHF exacerbation, Respiratory failure Physicians Team ED Provider: Reyes Bocanegra Primary Care Provider: Mars Jarquin Attending Provider: Javier Rivera Other Providers: Yordan Farr ; Jake Joseph ; Edd Lindo ; Lalita Trujillo Discharge Interventions Interventions: ED Discharge Assessment Last Done: 06/01/18 20:30 Status ED Status: Left Department Discharge Information Discharge Date/Time: 06/01/18 20:35
--- NOTE | 2018-06-01 15:38 | XR ---
EXAM DATE: 06/01/2018 3:24 PM EDT AGE/SEX: 62 years / Male INDICATIONS: CHF, Short of breath. CLINICAL DATA: This is the patient's initial encounter. Patient reports that signs and symptoms have been present for 1 day and indicates a pain score of Nonresponsive. MEDICAL/SURGICAL HISTORY: . CHF, COPD, Diabetes, a- fib, Stage 3 chronic kidney disease Append ectomy. Tonsillectomy. COMPARISON: [facility], CT THORAX W/O CONTRAST, 01/13/2016. . FINDINGS: The cardiac silhouette is enlarged in transverse diameter. The lungs are free of acute parenchymal op acity. No effusions are identified. The mediastinum remains prominent and more so than on the prior e xamination. CT scan is recommended if clinically indicated. CONCLUSION: Cardiomegaly. No acute pulmonary disease. Prominent mediastinal as above. CT scan is recommended if clinically indicated. Electronically signed by: Prasad Zapata MD 06/01/2018 3:37 PM EDT
[2018-06-01 16:27] LABS: Bacteria,Urine Many /hpf; Bilirubin,Urine Negative (Negative); Clarity,Urine Turbid (Clear); Color,Urine Amber (Yellw/Straw); Glucose,Urine (UA) Negative (Negative); Leukocyte Esterase,Urine Large (Negative); Mucus,Urine Few /lpf (Occasional); Nitrite,Urine Negative (Negative); Specific Gravity,Urine 1.011 (1.002-1.035); Squamous Epithelial Cell,Urine 2 /hpf (0-5)
[2018-06-01 17:16] LABS: Baso % (Auto) 0.2 % (0.0-2.0); Hematocrit 33.8 % (39.0-51.0); Hemoglobin 9.7 gm/dL (13.0-17.0); Lymph # (Auto) 0.3 th/mm3 (1.0-4.8); Lymph % (Auto) 3.8 % (9.0-44.0); Mean Corpuscular Hemoglobin 26.6 pg (27.0-34.0); Mean Corpuscular Volume 93.1 fL (80.0-100.0); Mean Platelet Volume 8.1 fL (7.0-11.0); Mono # (Auto) 0.5 th/mm3 (0.0-0.9); Mono % (Auto) 7.4 % (0.0-8.0); Neut # (Auto) 5.9 th/mm3 (1.8-7.7); Neut % (Auto) 88.6 % (16.0-70.0); Platelet Count 180 th/mm3 (150-450); Red Blood Count 3.64 mil/mm3 (4.50-5.90); Red Cell Distribution Width 22.5 % (11.6-17.2); White Blood Count 6.6 th/mm3 (4.0-11.0)
[2018-06-01 17:20] LABS: Mean Corpuscular HGB Conc 28.6 % (32.0-36.0)
[2018-06-01 17:22] LABS: Alanine Aminotransferase 52 U/L (12-78); Albumin 3.4 g/dL (3.4-5.0); Anion Gap 9 meq/L (5-15); Aspartate Aminotransferase 53 U/L (15-37); Blood Urea Nitrogen 68 mg/dL (7-18); Calcium 8.7 mg/dL (8.5-10.1); Carbon Dioxide 34.4 meq/L (21.0-32.0); Chloride 100 meq/L (98-107); Glomerular Filtration Rate 39 mL/min (>89); Glucose,Random 116 mg/dL (74-106); Potassium 4.5 meq/L (3.5-5.1); Sodium 143 meq/L (136-145)
[2018-06-01 17:27] LABS: Activated Partial Thrombo Time 27.6 sec (24.3-30.1); Alkaline Phosphatase 282 U/L (45-117); INR 1.4 Ratio; Total Protein 6.9 g/dL (6.4-8.2); Troponin I 0.02 ng/mL (0.02-0.05)
[2018-06-01 17:39] LABS: Creatine Kinase 22 U/L (39-308)
[2018-06-01 17:44] LABS: ABG Base Excess 8.5 mmol/L (-2-2); ABG PCO2 79 mmHg (38-42); ABG PO2 63 mmHg (61-120)
[2018-06-01] MEDS ORDERED: Melatonin 5 MG Tablet PO PRN (19:28)
[2018-06-01] MEDS ORDERED: Acetaminophen 325 MG Tablet PO PRN (19:28)
[2018-06-01] MEDS ORDERED: Bisacodyl 10 MG Supp RECTAL PRN (19:31)
--- NOTE | 2018-06-01 20:47 | CT ---
EXAM DATE: 06/01/2018 8:34 PM EDT AGE/SEX: 62 years / Male INDICATIONS: Shortness of breath. CLINICAL DATA: This is the patient's initial encounter. Patient reports that signs and symptoms have been present for 1 day and indicates a pain score of 0/10. MEDICAL/SURGICAL HISTORY: Congestive heart failure. Chronic obstructive pulmonary disease. Diabet es. Hypertension. Appendectomy. RADIATION DOSE: 20.94 CTDI (mGy) ; Patient body habitus COMPARISON: No prior exams available for comparison. TECHNIQUE: Multiple contiguous axial images were obtained through the chest without contrast. Image s were obtained in suspended respiration using multiple row detector helical technique. Using automa liz exposure control and adjustment of the mA and/or kV according to patient size, radiation dose was kept as low as reasonably achievable to obtain optimal diagnostic quality images. DICOM format imag e data is available electronically for review and comparison. FINDINGS: There is at least a partially loculated moderate size right pleural effusion and trace left pleural f luid. There is compressive atelectasis in the right lung. Prominent mediastinal fat. No mediastinal mass. Moderate coronary calcifications. Upper abdomen reveals mild ascites. No acute bony abnormality. CONCLUSION: 1. Moderate sized partially loculated right pleural effusion. Trace left pleural fluid. Partial comp ressive atelectasis of the right lung. 2. Moderate coronary calcifications. Electronically signed by: Mannie Croft MD 06/01/2018 8:46 PM EDT
[2018-06-01] MEDS ORDERED: Ferrous Sulfate 325 MG Tablet PO SCH (21:00)
[2018-06-01] MEDS ORDERED: INSULIN ASPART U SQ SCH (21:00)
[2018-06-01] MEDS ORDERED: Dextrose 50% in Water 50 ML Vial IV.PUSH PRN (22:16)
[2018-06-01] MEDS: Metoprolol Tartrate 100 MG Tablet PO SCH (22:18)
[2018-06-01] MEDS: Senna/Docusate Sodium 8.6/50 MG Tablet PO SCH (22:19)
[2018-06-01] MEDS: Ferrous Sulfate 325 MG Tablet PO SCH (22:19)
[2018-06-01] MEDS: MethylPREDNISolone Sod Succinate Inj 40 MG/ML Vial IV.PUSH SCH (22:25)
--- NOTE | 2018-06-01 23:03 | P.HPCC ---
History of Present Illness Primary Care Physician: Mars Jarquin MD History of Present Illness: 62-year-old morbidly obese male with CHF, diabetes mellitus, chronic urinary retention, hyperlipidemia, hypertension, ulcer, COPD, that was brought in from [facility] due to increased dyspnea. The patient is on home O2 at 2 L via nasal cannula which brought his saturation up to 98 from 89% on 5 L and then was titrated by EMS to 3L. In the emergency department he was found to be altered with increased confusion which is not normal for the patient. Facility staff also reported that they observed Aj blood from the patient's rectum and he has history of hemorrhoids. The patient denies any symptoms at this time but he does appear slightly confused. After reviewing previous charts it appears that the patient was discharged on the 12th of this month where he was admitted here for diastolic congestive heart failure. He also had multiple admissions due to COPD exacerbation. Inpatient Certification: I certify that the inpatient services were ordered in accordance with Medicare regulations governing the order. This includes certification that hospital inpatient services are reasonable and necessary and in the case of services not specified as inpatient-only under 42 CFR 419.22(n), that they are appropriately provided as inpatient services in accordance to with the 2-midnight benchmark under 43 CFR 412.3(e) Estimated Total Length of Stay (Days): 5 Plans for Post Hospital Care: Not yet determined Review of Systems unobtainable due to mental condition PMFSH - History History Provided By: Patient, Medical Record - Medical History Medical History: Medical History (Last Reviewed 06/01/18 @ 14:55 by Reyes Bocanegra DO) Chronic kidney disease, stage III (moderate) (Acute) Hyperlipidemia (Acute) Hypertension (Acute) DENIS (obstructive sleep apnea) (Acute) COPD (chronic obstructive pulmonary disease) (Acute) Atrial fibrillation CHF (congestive heart failure) Diabetes mellitus - Surgical History Surgical History: Surgical History (Last Reviewed 06/01/18 @ 14:55 by Reyes Bocanegra DO) History of surgery on arm (Acute) Hx of tonsillectomy (Acute) H/O cardiac radiofrequency ablation (Acute) History of appendectomy (Acute) - Family History Family History: Family History (Last Reviewed 06/01/18 @ 14:55 by Reyes Bocanegra DO) Father Diabetes mellitus Hypertension Mother Diabetes mellitus - Tobacco History Second Hand Smoke Exposure: No Smoking Status: Never smoker - Alcohol History How Often Do You Have a Drink Containing Alcohol: Monthly or less - Substance Use History Substance History: No History of Abuse - Travel History Recent Travel in the [place] Within the Last 8 Weeks: No Recent Travel Out of the Country Within the Last 8 Weeks: No - Immunization History Tetanus Immunization: Unable to Assess Medications and Allergies Active Medications: Active Medications Acetaminophen (Tylenol) 650 mg PO Q4H PRN Acetazolamide (Diamox) 125 mg PO BID [facility] Al Hydroxide/Mg Hydroxide (Milk Of Efrain Liq) 30 ml PO Q12H PRN PRN Reason: Mild Constipation Albuterol (Duoneb Neb (Prn)) 1 ampul NEB Q2HR NEB PRN PRN Reason: WHEEZING Albuterol (Duoneb Neb (Delilah)) 1 ampul NEB Q4HR NEB [facility] Last Admin: 06/01/18 21:42 Dose: 1 ampul Atorvastatin Calcium (Lipitor) 40 mg PO HS [facility] Last Admin: 06/01/18 22:19 Dose: 40 mg Bisacodyl (Dulcolax Supp) 10 mg RECTAL DAILY PRN PRN Reason: SEVERE CONSITIPATION Budesonide/Formoterol Fumarate (Symbicort 160/4.5 Mcg Inh) 2 puff INH BID [facility] Bumetanide (Bumex) 1 mg PO BID [facility] Last Admin: 06/01/18 22:19 Dose: 1 mg Calcium Acetate (Phoslo) 667 mg PO TID [facility] Chlorhexidine Gluconate (Chlorhexidine 2% Cloth) 3 pack TOPICAL DAILY@0400 [facility] Stop: 06/07/18 03:59 Chlorhexidine Gluconate (Chlorhexidine 2% Cloth) 3 pack TOPICAL DAILY@0400 PRN PRN Reason: Extra cloth needed Stop: 06/07/18 03:59 Dextrose (D50w Vial) 50 ml IV.PUSH UNSCH PRN PRN Reason: PER HYPOGLYCEMIA PROTOCOL Digoxin (Lanoxin) 250 mcg PO DAILY [facility] Diltiazem HCl (Cardizem Cd 24hr) 240 mg PO DAILY [facility] Ferrous Sulfate (Ferosul) 325 mg PO BID [facility] Last Admin: 06/01/18 22:19 Dose: 325 mg Glucagon (Glucagon Inj) 1 mg OTHER PRN PRN PRN Reason: for Hypoglycemia Protocol Insulin Aspart (Novolog Insulin Correctional Sugar Inj) 0 unit SQ ACHS [facility]; Protocol Lactulose (Lactulose Liq) 30 ml PO DAILY PRN PRN Reason: SEVERE CONSITIPATION Melatonin (Melatonin) 5 mg PO HS PRN PRN Reason: Insomnia Methylprednisolone Sodium Succinate (Solumedrol Inj) 40 mg IV.PUSH Q6H [facility] Last Admin: 06/01/18 22:25 Dose: 40 mg Metoprolol Tartrate (Lopressor) 100 mg PO BID [facility] Last Admin: 06/01/18 22:18 Dose: 100 mg Ondansetron HCl (Zofran Inj) 4 mg IV.PUSH Q6H PRN PRN Reason: NAUSEA OR VOMITING Pantoprazole Sodium (Protonix) 20 mg PO DAILY [facility] Potassium Chloride (Kcl Powder) 20 meq PO DAILY [facility] Rivaroxaban (Xarelto) 10 mg PO DAILY [facility] Senna/Docusate Sodium (Coco-Colace) 1 tab PO BID [facility] Last Admin: 06/01/18 22:19 Dose: Not Given Sennosides (Senokot) 17.2 mg PO Q12H PRN PRN Reason: Moderate Constipation Sodium Chloride (Ns Flush) 2 ml IV.FLUSH BID [facility] Last Admin: 06/01/18 22:19 Dose: 2 ml Sodium Chloride (Ns Flush) 2 ml IV.FLUSH PRN PRN PRN Reason: FLUSH AFTER USING IV ACCESS Tamsulosin HCl (Flomax) 0.4 mg PO DAILY [facility] Torsemide (Demadex) 40 mg PO DAILY [facility] Allergies Allergy/AdvReac Type Severity Reaction Status Date / Time No Known Allergies Allergy Verified 05/22/18 16:16 Home Medications Medication Instructions Recorded Confirmed Type acetazolamide 125 mg PO BID 05/22/18 06/01/18 History albuterol sulfate [Ventolin HFA] 1 puff INHALATION Q4HR PRN 05/22/18 06/01/18 History atorvastatin 40 mg PO HS 05/22/18 06/01/18 History budesonide-formoterol [Symbicort] 2 puff INHALATION BID 05/22/18 06/01/18 History calcium acetate 667 mg PO TID 05/22/18 06/01/18 History digoxin 0.25 mg PO DAILY 05/22/18 06/01/18 History diltiazem HCl [Cardizem LA] 240 mg PO DAILY 05/22/18 06/01/18 History ipratropium bromide [Atrovent HFA] 1 puff INHALATION Q6HR PRN 05/22/18 06/01/18 History metoprolol tartrate 100 mg PO BID 05/22/18 06/01/18 History omeprazole 20 mg PO DAILY 05/22/18 06/01/18 History potassium chloride [Klor-Con] 1 packet PO DAILY 05/22/18 06/01/18 History prednisone 10 mg PO DAILY 05/22/18 06/01/18 History rivaroxaban 10 mg PO DAILY 05/22/18 06/01/18 History torsemide 40 mg PO DAILY 05/22/18 06/01/18 History acetaminophen [Tylenol] 650 mg PO Q4H PRN 06/01/18 06/01/18 History insulin aspart U-100 [Novolog 2 - 12 unit SUB-Q ACHS 06/01/18 06/01/18 History Flexpen U-100 Insulin] Results - Labs CBC & Chem 7: 06/02/18 04:03 06/02/18 04:03 Labs: Short CBC 06/01/18 Range/Units 16:45 WBC 6.6 (4.0-11.0) th/mm3 Hgb 9.7 L (13.0-17.0) gm/dL Hct 33.8 L (39.0-51.0) % Plt Count 180 D (150-450) th/mm3 BMP 06/01/18 16:45 Sodium 143 Potassium 4.5 Chloride 100 Carbon Dioxide 34.4 H BUN 68 H Creatinine 1.76 H Calcium 8.7 Cardiac Enzymes 06/01/18 06/01/18 Range/Units 16:45 22:00 Total Creatine Kinase 22 L (39-308) U/L Troponin I 0.02 0.03 (0.02-0.05) ng/mL Liver Function 06/01/18 Range/Units 16:45 Total Bilirubin 0.8 (0.2-1.0) mg/dL AST 53 H (15-37) U/L ALT 52 (12-78) U/L Alkaline Phosphatase 282 H (45-117) U/L Albumin 3.4 (3.4-5.0) g/dL Urine 06/01/18 Range/Units 16:10 Urine Color Sarah (Yellw/Straw) Urine Clarity Turbid H (Clear) Urine pH 6.0 (5.0-8.5) Ur Specific [place] 1.011 (1.002-1.035) Urine Protein 30 H (Neg-Trace) mg/dL Urine Glucose (UA) Negative (Negative) mg/dL - Imaging Impressions Chest X-Ray 06/01/18 14:48 CONCLUSION: Cardiomegaly. No acute pulmonary disease. Prominent mediastinal as above. CT scan is recommended if clinically indicated. Chest CT 06/01/18 18:17 CONCLUSION: 1. Moderate sized partially loculated right pleural effusion. Trace left pleural fluid. Partial compressive atelectasis of the right lung. 2. Moderate coronary calcifications. Exam Vital signs: Vital Signs 06/01/18 14:33 06/01/18 14:48 06/01/18 15:10 Temperature 98.6 F Pulse Rate 79 70 Respiratory Rate 19 17 Blood Pressure 128/60 Pulse Oximetry 94 L 90 L 96 06/01/18 15:13 06/01/18 15:48 06/01/18 16:51 Temperature Pulse Rate 78 75 78 Respiratory Rate 24 17 17 Blood Pressure 124/65 116/67 Pulse Oximetry 96 95 96 06/01/18 17:55 06/01/18 19:12 06/01/18 19:27 Temperature Pulse Rate 77 Respiratory Rate 18 Blood Pressure 144/66 H Pulse Oximetry 100 100 06/01/18 20:35 06/01/18 21:00 06/01/18 21:02 Temperature 98.4 F Pulse Rate 71 Respiratory Rate 25 H Blood Pressure 127/75 Pulse Oximetry 100 87 L 95 06/01/18 21:41 06/01/18 21:42 Temperature 98.4 F Pulse Rate 71 72 Respiratory Rate 25 H 20 Blood Pressure 127/75 Pulse Oximetry 87 L Intake & Output 06/01/18 06/01/18 06/02/18 06:59 18:59 06:59 Output Total 700 / 700 Balance -700 / -700 Weight 136.078 kg 170 kg Output: Urine Amount (Catheter) 700 / 700 Indwelling Urethral Catheter 700 / 700 Other: Date of Last Bowel Movement 05/31/18 Weight On Admission 170 kg - Constitutional moderate distress, morbidly obese - Routine HEENT Exam Head: Present: normocephalic, atraumatic Eye: Present: EOMI, PERRL, normal accommodation ENT: Present: mucous membranes moist - Routine Neck Exam Present: supple, full ROM. Absent: JVD, carotid bruit - Routine Respiratory Exam Present: rhonchi. Absent: accessory muscle use, stridor, wheezes, crackles - Routine Cardiovascular Exam Present: RRR, S1, S2 - Routine Abdominal Exam Present: soft, normoactive bowel sounds. Absent: tenderness, distended - Routine Extremities Exam Absent: cyanosis, clubbing - Routine Skin Exam Present: intact. Absent: cyanosis, erythema - Routine Neurological Exam Present: alert, altered mental status Caprini VTE Risk Assessment Caprini VTE Risk Assessment: Moderate/High Risk (score >= 2) Caprini Risk Assessment Model: Point Value = 1 Point Value = 2 Point Value = 3 Point Value = 5 Age 41-60 Minor surgery BMI > 25 kg/m2 Swollen legs Varicose veins or History of unexplained or recurrent spontaneous Oral contraceptives or hormone replacement Sepsis (< 1 month) Serious lung disease, including pneumonia (< 1 month) Abnormal pulmonary function Acute myocardial infarction Congestive heart failure (< 1 month) History of inflammatory bowel disease Medical patient at bed rest Age 61-74 Arthroscopic surgery Major open surgery (> 45 min) Laparoscopic surgery (> 45 min) Malignancy Confined to bed (> 72 hours) Immobilizing plaster cast Central venous access Age >= 75 History of VTE Family history of VTE Factor V Leiden Prothrombin [id number] Lupus anticoagulant Anticardiolipin antibodies Elevated serum homocysteine Heparin-induced thrombocytopenia Other congenital or acquired thrombophilia Stroke (< 1 month) Elective arthroplasty Hip, pelvis, or leg fracture Acute spinal cord injury (< 1 month) Prophylaxis Regimen: Total Risk Factor Score Risk Level Prophylaxis Regimen 0-1 Low Early ambulation 2 Moderate Order ONE of the following: *Sequential Compression Device (SCD) *Heparin 5000 units SQ BID 3-4 Higher Order ONE of the following medications: *Heparin 5000 units SQ TID *Enoxaparin/Lovenox 40 mg SQ daily (WT < 150 kg, CrCl > 30 mL/min) *Enoxaparin/Lovenox 30 mg SQ daily (WT < 150 kg, CrCl > 10-29 mL/min) *Enoxaparin/Lovenox 30 mg SQ BID (WT < 150 kg, CrCl > 30 mL/min) AND/OR *Sequential Compression Device (SCD) 5 or more Highest Order ONE of the following medications: *Heparin 5000 units SQ TID (Preferred with Epidurals) *Enoxaparin/Lovenox 40 mg SQ daily (WT < 150 kg, CrCl > 30 mL/min) *Enoxaparin/Lovenox 30 mg SQ daily (WT < 150 kg, CrCl > 10-29 mL/min) *Enoxaparin/Lovenox 30 mg SQ BID (WT < 150 kg, CrCl > 30 mL/min) AND *Sequential Compression Device (SCD) Assessment and Plan - Assessment and Plan Plan: Respiratory failure -Hypercarbic respiratory failure -Untreated DENIS -COPD -Obesity hypoventilation syndrome -DuoNeb scheduled and as needed -Symbicort -BiPAP as needed CHF -Continue diuresis -Continue Bumex and torsemide -Acetazolamide Dyslipidemia -Atorvastatin Atrial fibrillation -Digoxin -Diltiazem -Xarelto Diabetes mellitus -Insulin sliding scale Anemia iron deficiency -Iron supplement BPH -Flomax DVT GI prophylaxis -Teds SCDs -Xarelto -Pantoprazole 35 minutes of critical care H&P: Quality - VTE Deep Vein Thrombosis/Pulmonary Embolism Present on Admission: No
[2018-06-02] MEDS: Budesonide-Formoterol 160/4.5 MCG 6 GM Inhaler INH SCH ×3 (00:16→20:13)
[2018-06-02] MEDS: MethylPREDNISolone Sod Succinate Inj 40 MG/ML Vial IV.PUSH SCH ×4 (01:31→19:53)
[2018-06-02] MEDS: Chlorhexidine Gluconate 2% 1 Pack (2 Cloths) TOPICAL SCH (03:12)
[2018-06-02] MEDS ORDERED: Chlorhexidine Gluconate 2% 1 Pack (2 Cloths) TOPICAL PRN (04:00)
[2018-06-02 04:49] LABS: Hemoglobin 9.6 gm/dL (13.0-17.0); Lymph # (Auto) 0.2 th/mm3 (1.0-4.8); Lymph % (Auto) 2.2 % (9.0-44.0); Mean Corpuscular Hemoglobin 26.4 pg (27.0-34.0); Mean Corpuscular Volume 90.6 fL (80.0-100.0); Mono # (Auto) 0.1 th/mm3 (0.0-0.9); Mono % (Auto) 2.2 % (0.0-8.0); Neut # (Auto) 6.4 th/mm3 (1.8-7.7); Neut % (Auto) 95.6 % (16.0-70.0); Platelet Count 160 th/mm3 (150-450); Red Blood Count 3.64 mil/mm3 (4.50-5.90); Red Cell Distribution Width 22.4 % (11.6-17.2); White Blood Count 6.7 th/mm3 (4.0-11.0)
[2018-06-02 04:56] LABS: Mean Corpuscular HGB Conc 29.1 % (32.0-36.0)
[2018-06-02 05:10] LABS: Albumin 3.4 g/dL (3.4-5.0); Anion Gap 10 meq/L (5-15); Aspartate Aminotransferase 39 U/L (15-37); Blood Urea Nitrogen 73 mg/dL (7-18); Calcium 8.7 mg/dL (8.5-10.1); Carbon Dioxide 34.8 meq/L (21.0-32.0); Chloride 99 meq/L (98-107); Glomerular Filtration Rate 44 mL/min (>89); Glucose,Random 126 mg/dL (74-106); Magnesium 2.3 mg/dL (1.5-2.5); Potassium 3.9 meq/L (3.5-5.1); Sodium 144 meq/L (136-145)
[2018-06-02 05:12] LABS: Alanine Aminotransferase 45 U/L (12-78); Phosphorus 4.7 mg/dL (2.5-4.9)
[2018-06-02 05:15] LABS: Alkaline Phosphatase 254 U/L (45-117); Total Protein 6.6 g/dL (6.4-8.2); Troponin I 0.02 ng/mL (0.02-0.05)
[2018-06-02 05:22] LABS: Activated Partial Thrombo Time 25.7 sec (24.3-30.1); INR 1.3 Ratio; Prothrombin Time 13.6 sec (9.8-11.6)
[2018-06-02 05:59] LABS: ABG PCO2 70 mmHg (38-42); ABG PO2 91 mmHG (61-120)
--- NOTE | 2018-06-02 08:01 | P.PNCC ---
Subjective Subjective Remarks/Hospital Course: 62-year-old morbidly obese male with CHF, diabetes mellitus, chronic urinary retention, hyperlipidemia, hypertension, ulcer, COPD, that was brought in from [facility] due to increased dyspnea. The patient is on home O2 at 2 L via nasal cannula which brought his saturation up to 98 from 89% on 5 L and then was titrated by EMS to 3L. In the emergency department he was found to be altered with increased confusion which is not normal for the patient. Facility staff also reported that they observed Aj blood from the patient's rectum and he has history of hemorrhoids. The patient denies any symptoms at this time but he does appear slightly confused. After reviewing previous charts it appears that the patient was discharged on the 12th of this month where he was admitted here for diastolic congestive heart failure. He also had multiple admissions due to COPD exacerbation. SUBJECTIVE: 06/02: Afebrile. P CO2 70%. Maintaining within normal limits. No new rectal bleeding overnight. Will start on diet. Objective Vital Signs / I&O: Vital Signs 06/01/18 14:33 06/01/18 14:48 06/01/18 15:10 Temperature 98.6 F Pulse Rate 79 70 Respiratory Rate 19 17 Blood Pressure 128/60 Pulse Oximetry 94 L 90 L 96 06/01/18 15:13 06/01/18 15:48 06/01/18 16:51 Temperature Pulse Rate 78 75 78 Respiratory Rate 24 17 17 Blood Pressure 124/65 116/67 Pulse Oximetry 96 95 96 06/01/18 17:55 06/01/18 19:12 06/01/18 19:27 Temperature Pulse Rate 77 Respiratory Rate 18 Blood Pressure 144/66 H Pulse Oximetry 100 100 06/01/18 20:35 06/01/18 21:00 06/01/18 21:02 Temperature 98.4 F Pulse Rate 71 Respiratory Rate 25 H Blood Pressure 127/75 Pulse Oximetry 100 87 L 95 06/01/18 21:41 06/01/18 21:42 06/01/18 23:00 Temperature 98.4 F Pulse Rate 71 72 65 Respiratory Rate 25 H 20 20 Blood Pressure 127/75 104/64 Pulse Oximetry 87 L 98 06/01/18 23:44 06/02/18 00:00 06/02/18 01:00 Temperature 98.5 F 98.7 F Pulse Rate 66 66 69 Respiratory Rate 16 16 12 Blood Pressure 108/55 L 120/70 Pulse Oximetry 94 L 92 L 96 06/02/18 02:00 06/02/18 03:00 06/02/18 03:54 Temperature Pulse Rate 69 72 80 Respiratory Rate 12 18 16 Blood Pressure 115/59 L 199/64 H Pulse Oximetry 90 L 91 L 96 06/02/18 04:00 06/02/18 06:00 06/02/18 07:33 Temperature 98.5 F Pulse Rate 76 80 83 Respiratory Rate 20 30 H 20 Blood Pressure 117/64 114/66 Pulse Oximetry 94 L 100 97 Intake & Output 06/01/18 06/02/18 06/02/18 18:59 06:59 18:59 Intake Total 600 / 600 Output Total 700 / 700 1949 Balance -700 / -700 -1350 / -1350 Weight 136.078 kg 169 kg Intake: Oral 600 / 600 Output: Urine Amount (Catheter) 700 / 700 1949 Indwelling Urethral Catheter 700 / 700 1949 Other: Date of Last Bowel Movement 05/31/18 Weight On Admission 170 kg Result Diagrams: 06/02/18 04:03 06/02/18 04:03 Other Results: Microbiology 06/01/18 16:05 Nasal Wash Influenza Types A,B Antigen - Final Negative for FLU A and B antigen Infection due to influenza A or B cannot be ruled out since the antigen present in the sample may be below the detection limit of the test. Imaging: Chest X-Ray 06/01/18 14:48 CONCLUSION: Cardiomegaly. No acute pulmonary disease. Prominent mediastinal as above. CT scan is recommended if clinically indicated. Chest CT 06/01/18 18:17 CONCLUSION: 1. Moderate sized partially loculated right pleural effusion. Trace left pleural fluid. Partial compressive atelectasis of the right lung. 2. Moderate coronary calcifications. Objective Remarks: GENERAL: 62-year-old male currently resting in bed on nasal cannula in no acute distress SKIN: Warm and dry. Chronic venous stasis bilateral extremities HEAD: Atraumatic. Normocephalic. EYES: Pupils equal and round about 3 mm bilaterally. No scleral icterus. No injection or drainage. ENT: No nasal bleeding or discharge. Mucous membranes pink and moist. NECK: Trachea midline. No JVD. CARDIOVASCULAR: Regular rate and rhythm. S1, S2. No S4. RESPIRATORY: Diminished breath sounds throughout. Breath sounds equal bilaterally. GASTROINTESTINAL: Abdomen obese, nontender. Hepatic and splenic margins not palpable. MUSCULOSKELETAL: Extremities with positive bilateral lower extremity edema. No obvious deformities. NEUROLOGICAL: Awake and alert. No obvious cranial nerve deficits. Motor grossly within normal limits. Five out of 5 muscle strength in the arms and legs. Normal speech. PSYCHIATRIC: Appropriate mood and affect; insight and judgment normal. Assessment and Plan - Assessment and Plan Plan: Neuro/Psych: History of TIA Insomnia Melatonin 5 mg daily at senior care for insomnia. Acetaminophen 650 p.o. every 6 hours as needed fever CV: Atrial fibrillation -currently normal sinus rhythm Chronic diastolic heart failure ejection fraction 50-55% Essential hypertension Hyperlipidemia History of ablation [address] Page On atorvastatin 40 mg daily for dyslipidemia. On digoxin 0.25 mg daily. Check level Currently on diltiazem 240 mg daily, metoprolol tartrate 100 mg daily for essential hypertension Currently on bumetanide 1 mg twice daily, torsemide 40 mg daily and acetazolamide 125 mg twice daily Last 2D echocardiogram 12/30 revealed a 50-55%. Mild LVH. Resp: Acute hypoxic respiratory failure History of COPD/oxygen dependent Obstructive sleep apnea Currently budesonide/formoterol 160/4.5 2 puffs twice daily Albuterol/ipratropium aerosols every 4 hours with albuterol aerosols every 2 hours as needed for dyspnea As needed BiPAP Last PCO2 was 70 the patient appears comfortable at the present time. 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 Currently on pantoprazole 40 milligrams IV twice daily Clear liquid diet Docusate sodium/senna 1 tablet twice daily for bowel regimen GI consultation for lower GI bleed : BPH Continue tamsulosin 0.4 mg daily Endo: Diabetes mellitus 1.5 treat is 1.0 Chronic prednisone use/10 mg daily Sliding scale insulin with aspart insulin before meals at bedtime to maintain euglycemia Holding home medications U100 Renal: Chronic kidney disease stage III a Monitor urine output Accurate I's and O's Creatinine appears close to baseline Heme: Chronic rivaroxaban use Holding Lorazepam in light of lower GI bleed/bright red blood per rectum Continue ferrous sulfate 325 mg by mouth twice daily Recheck hemoglobin 1500 hrs. ID: [id number] Blood cultures 2, UA pending Influenza a and B- We will start on cefepime renally dosed see orders FEN: History of hyperphosphatemia Replace electrolytes as clinically indicated Holding potassium chloride 20 mg daily/home medication Continue calcium acetate 667 mg 3 times daily MSK: Elevated BMI Weight loss encouraged Access -Utilize peripheral IV. Prophylaxis -GI -pantoprazole -DVT -SCD/holding pharmacological prophylaxis in light of acute lower GI bleed 35 minutes critical care time excluding procedures.
[2018-06-02] MEDS: Calcium Acetate 667 MG Capsule PO SCH ×3 (08:31→17:01)
[2018-06-02] MEDS: Rivaroxaban 10 MG Tablet PO SCH ×2 (08:31→10:44)
[2018-06-02] MEDS: Digoxin 250 MCG Tablet PO SCH (08:32)
[2018-06-02] MEDS: Metoprolol Tartrate 100 MG Tablet PO SCH ×2 (08:32→20:11)
[2018-06-02] MEDS: Torsemide 20 MG Tablet PO SCH (08:32)
[2018-06-02] MEDS: dilTIAZem CD 240 MG Capsule PO SCH (08:32)
[2018-06-02] MEDS: Ferrous Sulfate 325 MG Tablet PO SCH ×2 (08:33→20:11)
[2018-06-02] MEDS: acetaZOLAMIDE 250 MG TABLET PO SCH ×2 (08:34→20:12)
[2018-06-02] MEDS: Insulin NovoLOG Aspart Correctional Sugar Inj SQ SCH ×4 (08:35→20:19)
[2018-06-02] MEDS: Senna/Docusate Sodium 8.6/50 MG Tablet PO SCH ×2 (08:36→20:13)
[2018-06-02] MEDS: Pantoprazole Inj 40 MG Vial IV.PUSH SCH ×2 (08:51→20:11)
[2018-06-02] MEDS: Azithromycin 250 MG Tablet PO SCH (08:51)
[2018-06-02] MEDS ORDERED: Pantoprazole Sodium 20 MG DR Tablet PO SCH (09:00)
[2018-06-02] MEDS ORDERED: Potassium Chloride 20 MEQ Pwd Pkt PO SCH (09:00)
[2018-06-02] MEDS ORDERED: DILTIAZEM HCL 240 MG PO SCH (09:00)
[2018-06-02] MEDS ORDERED: CALCIUM ACETATE 667 MG PO SCH (09:00)
[2018-06-02] MEDS: Potassium Chloride 25 MEQ Effervescent Tablet PO SCH (09:03)
--- NOTE | 2018-06-02 11:21 | P.CONGI ---
History of Present Illness Consult date: 06/02/18 Consult reason: GI bleed, bright red rectal bleeding Chief complaint: CHF exacerbation, Hypoxemia, UTI, AMS, Lower GI History of Present Illness: This is a 62-year-old morbid obese male who came in the hospital on 06/01/2018 with increased dyspnea. According to the record and patient he was at [facility] for rehab and started having some bright red rectal bleeding over the past couple weeks patient states that the bleeding became more intense and more obvious over the past 2 days before admission and he reported this to the staff. Patient is currently on 5 L of oxygen and O2 sat is now between 93 and 95, but according to the record has been as low as 89% on admission to the emergency room. Patient did have some initial altered mental status and steal appears confused with some of his history. Patient does note a history of hemorrhoids and some constipation but states that most of the times his bowels move once a day patient is also on Xarelto for the past 5 years and states that he has had ablations done before. Patient does have significant history of alcohol usage daily but states that he has been down to a couple of drinks a day for the past [address] was also done on admission which showed right pleural effusions and patient is currently being managed in the intensive care setting. Current hemoglobin 9.6, PT/INR 1.3, bilirubin 0.9, AST 39 mildly elevated and ALT 45, alkaline phosphatase 254. Patient currently denies any nausea or vomiting, dyspepsia or dysphasia; No family history of colon cancer. Patient states EGD and colonoscopy approximately 2 years ago for the same symptoms of rectal bleeding but no obvious abnormalities were found. Gastroenterology was consulted to assist with his bright red rectal bleeding and any GI symptoms and his plan of care. <Marianela Moffett - Last Filed: 06/02/18 11:23> Review of Systems All other systems reviewed negative except as stated in HPI <Marianela Moffett - Last Filed: 06/02/18 11:23> PMFSH - History History Provided By: Patient, Medical Record - Medical History Medical History: Medical History (Last Reviewed 06/01/18 @ 14:55 by Reyes Bocanegra DO) Chronic kidney disease, stage III (moderate) (Acute) Hyperlipidemia (Acute) Hypertension (Acute) DENIS (obstructive sleep apnea) (Acute) COPD (chronic obstructive pulmonary disease) (Acute) Atrial fibrillation CHF (congestive heart failure) Diabetes mellitus - Surgical History Surgical History: Surgical History (Last Reviewed 06/01/18 @ 14:55 by Reyes Bocanegra DO) History of surgery on arm (Acute) Hx of tonsillectomy (Acute) H/O cardiac radiofrequency ablation (Acute) History of appendectomy (Acute) - Family History Family History: Family History (Last Reviewed 06/01/18 @ 14:55 by Reyes Bocanegra DO) Father Diabetes mellitus Hypertension Mother Diabetes mellitus - Tobacco History Second Hand Smoke Exposure: No Smoking Status: Never smoker - Alcohol History How Often Do You Have a Drink Containing Alcohol: Monthly or less - Substance Use History Substance History: No History of Abuse - Travel History Recent Travel in the [place] Within the Last 8 Weeks: No Recent Travel Out of the Country Within the Last 8 Weeks: No - Immunization History Tetanus Immunization: Unable to Assess <Marianela Moffett - Last Filed: 06/02/18 11:23> - Medical History Medical History: Medical History (Last Reviewed 06/01/18 @ 14:55 by Reyes Bocanegra DO) Chronic kidney disease, stage III (moderate) (Acute) Hyperlipidemia (Acute) Hypertension (Acute) DENIS (obstructive sleep apnea) (Acute) COPD (chronic obstructive pulmonary disease) (Acute) Atrial fibrillation CHF (congestive heart failure) Diabetes mellitus - Surgical History Surgical History: Surgical History (Last Reviewed 06/01/18 @ 14:55 by Reyes Bocanegra DO) History of surgery on arm (Acute) Hx of tonsillectomy (Acute) H/O cardiac radiofrequency ablation (Acute) History of appendectomy (Acute) - Family History Family History: Family History (Last Reviewed 06/01/18 @ 14:55 by Reyes Bocanegra DO) Father Diabetes mellitus Hypertension Mother Diabetes mellitus <Edd Lindo - Last Filed: 06/02/18 21:40> Medications and Allergies Active Medications: Active Medications Acetaminophen (Tylenol) 650 mg PO Q4H PRN PRN Reason: PAIN 1 TO 10 Acetazolamide (Diamox) 125 mg PO BID DELILAH Last Admin: 06/02/18 08:34 Dose: 125 mg Al Hydroxide/Mg Hydroxide (Milk Of Magnesia Liq) 30 ml PO Q12H PRN PRN Reason: Mild Constipation Albuterol (Duoneb Neb (Delilah)) 1 ampul NEB Q4HR NEB [facility] Last Admin: 06/02/18 07:33 Dose: 1 ampul Albuterol (Albuterol Neb (Prn)) 2.5 mg NEB Q2HR NEB PRN PRN Reason: DYSPNEA Atorvastatin Calcium (Lipitor) 40 mg PO HS [facility] Last Admin: 06/01/18 22:19 Dose: 40 mg Azithromycin (Zithromax) 500 mg PO DAILY [facility] Last Admin: 06/02/18 08:51 Dose: 500 mg Bisacodyl (Dulcolax Supp) 10 mg RECTAL DAILY PRN PRN Reason: SEVERE CONSITIPATION Budesonide/Formoterol Fumarate (Symbicort 160/4.5 Mcg Inh) 2 puff INH BID [facility] Last Admin: 06/02/18 08:31 Dose: 2 puff Bumetanide (Bumex) 1 mg PO BID [facility] Last Admin: 06/02/18 08:33 Dose: 1 mg Calcium Acetate (Phoslo) 667 mg PO TID [facility] Last Admin: 06/02/18 08:31 Dose: 667 mg Chlorhexidine Gluconate (Chlorhexidine 2% Cloth) 3 pack TOPICAL DAILY@0400 [facility] Stop: 06/07/18 03:59 Last Admin: 06/02/18 03:12 Dose: 3 pack Chlorhexidine Gluconate (Chlorhexidine 2% Cloth) 3 pack TOPICAL DAILY@0400 PRN PRN Reason: Extra cloth needed Stop: 06/07/18 03:59 Dextrose (D50w Vial) 50 ml IV.PUSH UNSCH PRN PRN Reason: PER HYPOGLYCEMIA PROTOCOL Digoxin (Lanoxin) 250 mcg PO DAILY [facility] Last Admin: 06/02/18 08:32 Dose: 250 mcg Diltiazem HCl (Cardizem Cd 24hr) 240 mg PO DAILY [facility] Last Admin: 06/02/18 08:32 Dose: 240 mg Ferrous Sulfate (Ferosul) 325 mg PO BID [facility] Last Admin: 06/02/18 08:33 Dose: 325 mg Glucagon (Glucagon Inj) 1 mg OTHER PRN PRN PRN Reason: for Hypoglycemia Protocol Cefepime HCl 1,000 mg/ Sodium (Chloride) 100 mls @ 200 mls/hr IV.SIG Q12H [facility] Last Admin: 06/02/18 08:50 Dose: 200 mls/hr Insulin Aspart (Novolog Insulin Correctional Sugar Inj) 0 unit SQ ACHS [facility]; Protocol Last Admin: 06/02/18 08:35 Dose: 2 unit Lactulose (Lactulose Liq) 30 ml PO DAILY PRN PRN Reason: SEVERE CONSITIPATION Melatonin (Melatonin) 5 mg PO HS PRN PRN Reason: Insomnia Methylprednisolone Sodium Succinate (Solumedrol Inj) 40 mg IV.PUSH Q6H [facility] Last Admin: 06/02/18 08:34 Dose: 40 mg Metoprolol Tartrate (Lopressor) 100 mg PO BID [facility] Last Admin: 06/02/18 08:32 Dose: 100 mg Miscellaneous (Pill Splitter) 1 each OTHER PRN [facility] Ondansetron HCl (Zofran Inj) 4 mg IV.PUSH Q6H PRN PRN Reason: NAUSEA OR VOMITING Pantoprazole Sodium (Protonix Inj) 40 mg IV.PUSH Q12H [facility] Last Admin: 06/02/18 08:51 Dose: 40 mg Potassium Bicarb/Potassium Chloride (K-Lyte Cl Eff) 25 meq PO DAILY [facility] Last Admin: 06/02/18 09:03 Dose: 25 meq Rivaroxaban (Xarelto) 10 mg PO DAILY [facility] Last Admin: 06/02/18 10:44 Dose: Not Given Senna/Docusate Sodium (Coco-Colace) 1 tab PO BID [facility] Last Admin: 06/02/18 08:36 Dose: 1 tab Sennosides (Senokot) 17.2 mg PO Q12H PRN PRN Reason: Moderate Constipation Sodium Chloride (Ns Flush) 2 ml IV.FLUSH BID [facility] Last Admin: 06/02/18 08:35 Dose: 2 ml Sodium Chloride (Ns Flush) 2 ml IV.FLUSH PRN PRN PRN Reason: FLUSH AFTER USING IV ACCESS Tamsulosin HCl (Flomax) 0.4 mg PO DAILY [facility] Last Admin: 06/02/18 08:30 Dose: 0.4 mg Torsemide (Demadex) 40 mg PO DAILY [facility] Last Admin: 06/02/18 08:32 Dose: 40 mg <Marianela Moffett M - Last Filed: 06/02/18 11:23> Active Medications: Active Medications Acetaminophen (Tylenol) 650 mg PO Q4H PRN PRN Reason: PAIN 1 TO 10 Acetazolamide (Diamox) 125 mg PO BID [facility] Last Admin: 06/02/18 20:12 Dose: 125 mg Al Hydroxide/Mg Hydroxide (Milk Of Efrain Liopal) 30 ml PO Q12H PRN PRN Reason: Mild Constipation Albuterol (Duoneb Neb (Delilah)) 1 ampul NEB Q4HR NEB [facility] Last Admin: 06/02/18 21:06 Dose: 1 ampul Albuterol (Albuterol Neb (Prn)) 2.5 mg NEB Q2HR NEB PRN PRN Reason: DYSPNEA Atorvastatin Calcium (Lipitor) 40 mg PO HS [facility] Last Admin: 06/02/18 20:12 Dose: 40 mg Azithromycin (Zithromax) 500 mg PO DAILY [facility] Last Admin: 06/02/18 08:51 Dose: 500 mg Bisacodyl (Dulcolax Supp) 10 mg RECTAL DAILY PRN PRN Reason: SEVERE CONSITIPATION Budesonide/Formoterol Fumarate (Symbicort 160/4.5 Mcg Inh) 2 puff INH BID [facility] Last Admin: 06/02/18 20:13 Dose: 2 puff Bumetanide (Bumex) 1 mg PO BID [facility] Last Admin: 06/02/18 20:12 Dose: 1 mg Calcium Acetate (Phoslo) 667 mg PO TID [facility] Last Admin: 06/02/18 17:01 Dose: 667 mg Chlorhexidine Gluconate (Chlorhexidine 2% Cloth) 3 pack TOPICAL DAILY@0400 [facility] Stop: 06/07/18 03:59 Last Admin: 06/02/18 03:12 Dose: 3 pack Chlorhexidine Gluconate (Chlorhexidine 2% Cloth) 3 pack TOPICAL DAILY@0400 PRN PRN Reason: Extra cloth needed Stop: 06/07/18 03:59 Dextrose (D50w Vial) 50 ml IV.PUSH UNSCH PRN PRN Reason: PER HYPOGLYCEMIA PROTOCOL Digoxin (Lanoxin) 250 mcg PO DAILY [facility] Last Admin: 06/02/18 08:32 Dose: 250 mcg Diltiazem HCl (Cardizem Cd 24hr) 240 mg PO DAILY [facility] Last Admin: 06/02/18 08:32 Dose: 240 mg Ferrous Sulfate (Ferosul) 325 mg PO BID [facility] Last Admin: 06/02/18 20:11 Dose: 325 mg Glucagon (Glucagon Inj) 1 mg OTHER PRN PRN PRN Reason: for Hypoglycemia Protocol Cefepime HCl 1,000 mg/ Sodium (Chloride) 100 mls @ 200 mls/hr IV.SIG Q12H [facility] Last Infusion: 06/02/18 21:17 Dose: Infused Insulin Aspart (Novolog Insulin Correctional Sugar Inj) 0 unit SQ ACHS [facility]; Protocol Last Admin: 06/02/18 20:19 Dose: 2 unit Lactulose (Lactulose Liq) 30 ml PO DAILY PRN PRN Reason: SEVERE CONSITIPATION Melatonin (Melatonin) 5 mg PO HS PRN PRN Reason: Insomnia Methylprednisolone Sodium Succinate (Solumedrol Inj) 40 mg IV.PUSH Q6H [facility] Last Admin: 06/02/18 19:53 Dose: 40 mg Metoprolol Tartrate (Lopressor) 100 mg PO BID [facility] Last Admin: 06/02/18 20:11 Dose: 100 mg Miscellaneous (Pill Splitter) 1 each OTHER PRN [facility] Ondansetron HCl (Zofran Inj) 4 mg IV.PUSH Q6H PRN PRN Reason: NAUSEA OR VOMITING Pantoprazole Sodium (Protonix Inj) 40 mg IV.PUSH Q12H [facility] Last Admin: 06/02/18 20:11 Dose: 40 mg Pharmacy Profile Note (Vancomycin Consult Pharmacy) 1 each OTHER UNSCH PRN PRN Reason: Pharmacy to dose Potassium Bicarb/Potassium Chloride (K-Lyte Cl Eff) 25 meq PO DAILY [facility] Last Admin: 06/02/18 09:03 Dose: 25 meq Rivaroxaban (Xarelto) 10 mg PO DAILY [facility] Last Admin: 06/02/18 10:44 Dose: Not Given Senna/Docusate Sodium (Coco-Colace) 1 tab PO BID [facility] Last Admin: 06/02/18 20:13 Dose: Not Given Sennosides (Senokot) 17.2 mg PO Q12H PRN PRN Reason: Moderate Constipation Sodium Chloride (Ns Flush) 2 ml IV.FLUSH BID [facility] Last Admin: 06/02/18 20:13 Dose: 2 ml Sodium Chloride (Ns Flush) 2 ml IV.FLUSH PRN PRN PRN Reason: FLUSH AFTER USING IV ACCESS Tamsulosin HCl (Flomax) 0.4 mg PO DAILY [facility] Last Admin: 06/02/18 08:30 Dose: 0.4 mg Torsemide (Demadex) 40 mg PO DAILY [facility] Last Admin: 06/02/18 08:32 Dose: 40 mg <Edd Lindo E - Last Filed: 06/02/18 21:40> Allergies Allergy/AdvReac Type Severity Reaction Status Date / Time No Known Allergies Allergy Verified 05/22/18 16:16 Home Medications Medication Instructions Recorded Confirmed Type acetazolamide 125 mg PO BID 05/22/18 06/01/18 History albuterol sulfate [Ventolin HFA] 1 puff INHALATION Q4HR PRN 05/22/18 06/01/18 History atorvastatin 40 mg PO HS 05/22/18 06/01/18 History budesonide-formoterol [Symbicort] 2 puff INHALATION BID 05/22/18 06/01/18 History calcium acetate 667 mg PO TID 05/22/18 06/01/18 History digoxin 0.25 mg PO DAILY 05/22/18 06/01/18 History diltiazem HCl [Cardizem LA] 240 mg PO DAILY 05/22/18 06/01/18 History ipratropium bromide [Atrovent HFA] 1 puff INHALATION Q6HR PRN 05/22/18 06/01/18 History metoprolol tartrate 100 mg PO BID 05/22/18 06/01/18 History omeprazole 20 mg PO DAILY 05/22/18 06/01/18 History potassium chloride [Klor-Con] 1 packet PO DAILY 05/22/18 06/01/18 History prednisone 10 mg PO DAILY 05/22/18 06/01/18 History rivaroxaban 10 mg PO DAILY 05/22/18 06/01/18 History torsemide 40 mg PO DAILY 05/22/18 06/01/18 History acetaminophen [Tylenol] 650 mg PO Q4H PRN 06/01/18 06/01/18 History insulin aspart U-100 [Novolog 2 - 12 unit SUB-Q ACHS 06/01/18 06/01/18 History Flexpen U-100 Insulin] Exam Vital signs: Vital Signs 06/01/18 14:33 06/01/18 14:48 06/01/18 15:10 Temperature 98.6 F Pulse Rate 79 70 Respiratory Rate 19 17 Blood Pressure 128/60 Pulse Oximetry 94 L 90 L 96 06/01/18 15:13 06/01/18 15:48 06/01/18 16:51 Temperature Pulse Rate 78 75 78 Respiratory Rate 24 17 17 Blood Pressure 124/65 116/67 Pulse Oximetry 96 95 96 06/01/18 17:55 06/01/18 19:12 06/01/18 19:27 Temperature Pulse Rate 77 Respiratory Rate 18 Blood Pressure 144/66 H Pulse Oximetry 100 100 06/01/18 20:35 06/01/18 21:00 06/01/18 21:02 Temperature 98.4 F Pulse Rate 71 Respiratory Rate 25 H Blood Pressure 127/75 Pulse Oximetry 100 87 L 95 06/01/18 21:41 06/01/18 21:42 06/01/18 23:00 Temperature 98.4 F Pulse Rate 71 72 65 Respiratory Rate 25 H 20 20 Blood Pressure 127/75 104/64 Pulse Oximetry 87 L 98 06/01/18 23:44 06/02/18 00:00 06/02/18 01:00 Temperature 98.5 F 98.7 F Pulse Rate 66 66 69 Respiratory Rate 16 16 12 Blood Pressure 108/55 L 120/70 Pulse Oximetry 94 L 92 L 96 06/02/18 02:00 06/02/18 03:00 06/02/18 03:54 Temperature Pulse Rate 69 72 80 Respiratory Rate 12 18 16 Blood Pressure 115/59 L 199/64 H Pulse Oximetry 90 L 91 L 96 06/02/18 04:00 06/02/18 06:00 06/02/18 07:00 Temperature 98.5 F 97.6 F Pulse Rate 76 80 79 Respiratory Rate 20 30 H 23 Blood Pressure 117/64 114/66 114/66 Pulse Oximetry 94 L 100 100 06/02/18 07:33 06/02/18 08:00 06/02/18 09:00 Temperature 97.5 F L Pulse Rate 83 84 86 Respiratory Rate 20 28 H 23 Blood Pressure 114/63 116/65 Pulse Oximetry 97 100 98 06/02/18 10:00 06/02/18 10:01 Temperature Pulse Rate 90 87 Respiratory Rate 48 H 32 H Blood Pressure 127/96 H 127/96 H Pulse Oximetry 93 L 71 L Intake & Output 06/01/18 06/02/18 06/02/18 18:59 06:59 18:59 Intake Total 600 / 600 Output Total 700 / 700 1950 / 1950 Balance -700 / -700 -1350 / -1350 Weight 136.078 kg 169 kg Intake: Oral 600 / 600 Output: Urine Amount (Catheter) 700 / 700 1949 Indwelling Urethral Catheter 700 / 700 1949 Other: Date of Last Bowel Movement 05/31/18 05/31/18 Weight On Admission 170 kg - Constitutional moderate distress, morbidly obese, chronically ill appearing, disheveled - Routine HEENT Exam Head: Present: normocephalic ENT: Present: mucous membranes moist - Routine Neck Exam Present: supple - Routine Respiratory Exam Present: accessory muscle use (Low volumes mild respiratory distress at rest, O2 nasal cannula 5 L), decreased breath sounds - Routine Cardiovascular Exam Present: S1, S2 (Distant) - Routine Abdominal Exam Present: soft (Bright red rectal bleeding now controlled), distended (Obese, taut, denies any current abdominal pain to light palpation) - Routine Skin Exam Present: intact - Routine Neurological Exam Present: alert, altered mental status (Mild) <Marianela Moffett - Last Filed: 06/02/18 11:23> Vital signs: Vital Signs 06/01/18 21:41 06/01/18 21:42 06/01/18 23:00 Temperature 98.4 F Pulse Rate 71 72 65 Respiratory Rate 25 H 20 20 Blood Pressure 127/75 104/64 Pulse Oximetry 87 L 98 06/01/18 23:44 06/02/18 00:00 06/02/18 01:00 Temperature 98.5 F 98.7 F Pulse Rate 66 66 69 Respiratory Rate 16 16 12 Blood Pressure 108/55 L 120/70 Pulse Oximetry 94 L 92 L 96 06/02/18 02:00 06/02/18 03:00 06/02/18 03:54 Temperature Pulse Rate 69 72 80 Respiratory Rate 12 18 16 Blood Pressure 115/59 L 199/64 H Pulse Oximetry 90 L 91 L 96 06/02/18 04:00 06/02/18 06:00 06/02/18 07:00 Temperature 98.5 F 97.6 F Pulse Rate 76 80 79 Respiratory Rate 20 30 H 23 Blood Pressure 117/64 114/66 114/66 Pulse Oximetry 94 L 100 100 06/02/18 07:33 06/02/18 08:00 06/02/18 09:00 Temperature 97.5 F L Pulse Rate 83 84 86 Respiratory Rate 20 28 H 23 Blood Pressure 114/63 116/65 Pulse Oximetry 97 100 98 06/02/18 10:00 06/02/18 10:01 06/02/18 11:00 Temperature 97.7 F Pulse Rate 90 87 74 Respiratory Rate 48 H 32 H 32 H Blood Pressure 127/96 H 127/96 H 119/60 Pulse Oximetry 93 L 71 L 88 L 06/02/18 11:05 06/02/18 12:00 06/02/18 12:13 Temperature 97.7 F Pulse Rate 72 72 70 Respiratory Rate 24 27 H 16 Blood Pressure 119/60 116/67 Pulse Oximetry 98 91 L 06/02/18 13:00 06/02/18 13:01 06/02/18 14:00 Temperature Pulse Rate 80 75 Respiratory Rate 25 H 20 Blood Pressure 115/59 L 115/59 L 127/65 Pulse Oximetry 93 L 98 06/02/18 15:00 06/02/18 16:00 06/02/18 16:52 Temperature 97.7 F Pulse Rate 76 75 78 Respiratory Rate 23 18 Blood Pressure 133/68 133/78 Pulse Oximetry 98 99 06/02/18 17:00 06/02/18 17:01 06/02/18 18:00 Temperature 97.7 F Pulse Rate 82 80 86 Respiratory Rate 27 H 20 25 H Blood Pressure 139/74 139/74 103/56 L Pulse Oximetry 99 96 100 06/02/18 21:07 Temperature Pulse Rate 75 Respiratory Rate 22 Blood Pressure Pulse Oximetry 94 L Intake & Output 06/02/18 06/02/18 06/03/18 06:59 18:59 06:59 Intake Total 600 / 600 2140 / 2140 625 / 625 Output Total 1949 1700 / 1700 Balance -1350 / -1350 440 / 440 625 / 625 Weight 169 kg Intake: IV 100 / 100 625 / 625 Maxipime Inj 1,000 MG In NS Inj 100 / 100 100 / 100 100 ML @ 200 mls/hr IV.SIG Q12H [facility] Rx#:[id number] Vancomycin Inj 2,500 MG In NS 525 / 525 Inj 500 ML @ 250 mls/hr IV.SIG ONCE ONE Rx#:[id number] Oral 600 / 600 1800 / 1800 Oral Supplement 240 / 240 Output: Urine Amount (Catheter) 1949 1700 / 1700 Indwelling Urethral Catheter 1949 1700 / 1700 Other: Date of Last Bowel Movement 05/31/18 06/02/18 # Bowel Movements 1 # Incontinent Bowel Movements 1 Weight On Admission 170 kg <Edd Lindo - Last Filed: 06/02/18 21:40> Results - Labs CBC & Chem 7: 06/02/18 04:03 06/02/18 04:03 Labs: Laboratory Results - last 24 hr 06/01/18 06/01/18 06/01/18 16:10 16:45 16:45 WBC 6.6 RBC 3.64 L Hgb 9.7 L Hct 33.8 L MCV 93.1 MCH 26.6 L MCHC 28.6 L RDW 22.5 H Plt Count 180 D MPV 8.1 Neut % (Auto) 88.6 H Lymph % (Auto) 3.8 L King % (Auto) 7.4 Eos % (Auto) 0.0 Baso % (Auto) 0.2 Neut # (Auto) 5.9 Lymph # (Auto) 0.3 L King # (Auto) 0.5 Eos # (Auto) 0.0 Baso # (Auto) 0.0 WBC Differential . Differential Comment Auto diff final PT INR APTT Puncture Site Patient Temperature O2 Saturation ABG pH ABG pCO2 ABG pO2 ABG HCO3 ABG O2 Content ABG Base Excess ABG Methemoglobin Daryn Test Hemoglobin Carboxyhemoglobin O2 Delivery Device Vent Setting Inspired O2 Critical Value Sodium Potassium Chloride Carbon Dioxide Anion Gap BUN Creatinine Estimated GFR POC Glucose Random Glucose Calcium Phosphorus Magnesium Total Bilirubin AST ALT Alkaline Phosphatase Total Creatine Kinase Troponin I B-Natriuretic Peptide Total Protein Albumin Urine Color Sarah Urine Clarity Turbid H Urine pH 6.0 Ur Specific [place] 1.011 Urine Protein 30 H Urine Glucose (UA) Negative Urine Ketones Negative Urine Occult Blood Large H Urine Nitrate Negative Urine Bilirubin Negative Urine Urobilinogen 2.0 H Ur Leukocyte Esterase Large H Urine RBC 100 H Urine WBC Urine WBC Clumps Many H Ur Squamous Epith Cells 2 Urine Bacteria Many H Urine Mucus Few H Micro UA Comment Cath-culture ind Ur Microscopic Review Not Reportable Urine Culture Comments Cath-cult indicated Nasal Screen MRSA (PCR) Blood Type O Positive Antibody Screen Negative 06/01/18 06/01/18 06/01/18 16:45 16:45 16:45 WBC RBC Hgb Hct MCV MCH MCHC RDW Plt Count MPV Neut % (Auto) Lymph % (Auto) King % (Auto) Eos % (Auto) Baso % (Auto) Neut # (Auto) Lymph # (Auto) King # (Auto) Eos # (Auto) Baso # (Auto) WBC Differential Differential Comment PT 14.0 H INR 1.4 APTT 27.6 Puncture Site Patient Temperature O2 Saturation ABG pH ABG pCO2 ABG pO2 ABG HCO3 ABG O2 Content ABG Base Excess ABG Methemoglobin Daryn Test Hemoglobin Carboxyhemoglobin O2 Delivery Device Vent Setting Inspired O2 Critical Value Sodium 143 Potassium 4.5 Chloride 100 Carbon Dioxide 34.4 H Anion Gap 9 BUN 68 H Creatinine 1.76 H Estimated GFR 39 L POC Glucose Random Glucose 116 H Calcium 8.7 Phosphorus Magnesium Total Bilirubin 0.8 AST 53 H ALT 52 Alkaline Phosphatase 282 H Total Creatine Kinase 22 L Troponin I 0.02 B-Natriuretic Peptide 1771 H Total Protein 6.9 Albumin 3.4 Urine Color Urine Clarity Urine pH Ur Specific [place] Urine Protein Urine Glucose (UA) Urine Ketones Urine Occult Blood Urine Nitrate Urine Bilirubin Urine Urobilinogen Ur Leukocyte Esterase Urine RBC Urine WBC Urine WBC Clumps Ur Squamous Epith Cells Urine Bacteria Urine Mucus Micro UA Comment Ur Microscopic Review Urine Culture Comments Nasal Screen MRSA (PCR) Blood Type Antibody Screen 06/01/18 06/01/18 06/01/18 17:35 20:50 21:19 WBC RBC Hgb Hct MCV MCH MCHC RDW Plt Count MPV Neut % (Auto) Lymph % (Auto) King % (Auto) Eos % (Auto) Baso % (Auto) Neut # (Auto) Lymph # (Auto) King # (Auto) Eos # (Auto) Baso # (Auto) WBC Differential Differential Comment PT INR APTT Puncture Site Left radial Patient Temperature 98.6 O2 Saturation 87 L* ABG pH 7.27 L* ABG pCO2 79 H* ABG pO2 63 ABG HCO3 35 H ABG O2 Content 11.5 L ABG Base Excess 8.5 H ABG Methemoglobin 0.6 Daryn Test Present Hemoglobin 9.4 L Carboxyhemoglobin 2.9 O2 Delivery Device Bipap Vent Setting [id number] Inspired O2 30 Critical Value Yes Sodium Potassium Chloride Carbon Dioxide Anion Gap BUN Creatinine Estimated GFR POC Glucose 115 H Random Glucose Calcium Phosphorus Magnesium Total Bilirubin AST ALT Alkaline Phosphatase Total Creatine Kinase Troponin I B-Natriuretic Peptide Total Protein Albumin Urine Color Urine Clarity Urine pH Ur Specific [place] Urine Protein Urine Glucose (UA) Urine Ketones Urine Occult Blood Urine Nitrate Urine Bilirubin Urine Urobilinogen Ur Leukocyte Esterase Urine RBC Urine WBC Urine WBC Clumps Ur Squamous Epith Cells Urine Bacteria Urine Mucus Micro UA Comment Ur Microscopic Review Urine Culture Comments Nasal Screen MRSA (PCR) Not detected Blood Type Antibody Screen 06/01/18 06/02/18 06/02/18 22:00 04:03 04:03 WBC 6.7 RBC 3.64 L Hgb 9.6 L Hct 33.0 L MCV 90.6 MCH 26.4 L MCHC 29.1 L RDW 22.4 H Plt Count 160 MPV 8.0 Neut % (Auto) 95.6 H Lymph % (Auto) 2.2 L King % (Auto) 2.2 Eos % (Auto) 0.0 Baso % (Auto) 0.0 Neut # (Auto) 6.4 Lymph # (Auto) 0.2 L King # (Auto) 0.1 Eos # (Auto) 0.0 Baso # (Auto) 0.0 WBC Differential . Differential Comment Auto diff final PT 13.6 H INR 1.3 APTT 25.7 Puncture Site Patient Temperature O2 Saturation ABG pH ABG pCO2 ABG pO2 ABG HCO3 ABG O2 Content ABG Base Excess ABG Methemoglobin Daryn Test Hemoglobin Carboxyhemoglobin O2 Delivery Device Vent Setting Inspired O2 Critical Value Sodium Potassium Chloride Carbon Dioxide Anion Gap BUN Creatinine Estimated GFR POC Glucose Random Glucose Calcium Phosphorus Magnesium Total Bilirubin AST ALT Alkaline Phosphatase Total Creatine Kinase Troponin I 0.03 B-Natriuretic Peptide Total Protein Albumin Urine Color Urine Clarity Urine pH Ur Specific [place] Urine Protein Urine Glucose (UA) Urine Ketones Urine Occult Blood Urine Nitrate Urine Bilirubin Urine Urobilinogen Ur Leukocyte Esterase Urine RBC Urine WBC Urine WBC Clumps Ur Squamous Epith Cells Urine Bacteria Urine Mucus Micro UA Comment Ur Microscopic Review Urine Culture Comments Nasal Screen MRSA (PCR) Blood Type Antibody Screen 06/02/18 06/02/18 06/02/18 04:03 05:44 07:39 WBC RBC Hgb Hct MCV MCH MCHC RDW Plt Count MPV Neut % (Auto) Lymph % (Auto) King % (Auto) Eos % (Auto) Baso % (Auto) Neut # (Auto) Lymph # (Auto) King # (Auto) Eos # (Auto) Baso # (Auto) WBC Differential Differential Comment PT INR APTT Puncture Site Right radial Patient Temperature 98.6 O2 Saturation 92 ABG pH 7.32 L ABG pCO2 70 H* ABG pO2 91 ABG HCO3 35 H ABG O2 Content 12.7 ABG Base Excess 9.0 H ABG Methemoglobin 1.5 Daryn Test Present Hemoglobin 9.7 L Carboxyhemoglobin 2.5 O2 Delivery Device Bipap Vent Setting 18/5 Inspired O2 30 Critical Value Yes Sodium 144 Potassium 3.9 Chloride 99 Carbon Dioxide 34.8 H Anion Gap 10 BUN 73 H Creatinine 1.59 H Estimated GFR 44 L POC Glucose 182 H Random Glucose 126 H Calcium 8.7 Phosphorus 4.7 Magnesium 2.3 Total Bilirubin 0.9 AST 39 H ALT 45 Alkaline Phosphatase 254 H Total Creatine Kinase Troponin I 0.02 B-Natriuretic Peptide Total Protein 6.6 Albumin 3.4 Urine Color Urine Clarity Urine pH Ur Specific [place] Urine Protein Urine Glucose (UA) Urine Ketones Urine Occult Blood Urine Nitrate Urine Bilirubin Urine Urobilinogen Ur Leukocyte Esterase Urine RBC Urine WBC Urine WBC Clumps Ur Squamous Epith Cells Urine Bacteria Urine Mucus Micro UA Comment Ur Microscopic Review Urine Culture Comments Nasal Screen MRSA (PCR) Blood Type Antibody Screen - Imaging Impressions Chest X-Ray 06/01/18 14:48 CONCLUSION: Cardiomegaly. No acute pulmonary disease. Prominent mediastinal as above. CT scan is recommended if clinically indicated. Chest CT 06/01/18 18:17 CONCLUSION: 1. Moderate sized partially loculated right pleural effusion. Trace left pleural fluid. Partial compressive atelectasis of the right lung. 2. Moderate coronary calcifications. <Marianela Moffett - Last Filed: 06/02/18 11:23> - Labs CBC & Chem 7: 06/02/18 14:10 06/02/18 04:03 Labs: Laboratory Results - last 24 hr 06/01/18 06/01/18 06/02/18 20:50 22:00 04:03 WBC 6.7 RBC 3.64 L Hgb 9.6 L Hct 33.0 L MCV 90.6 MCH 26.4 L MCHC 29.1 L RDW 22.4 H Plt Count 160 MPV 8.0 Neut % (Auto) 95.6 H Lymph % (Auto) 2.2 L King % (Auto) 2.2 Eos % (Auto) 0.0 Baso % (Auto) 0.0 Neut # (Auto) 6.4 Lymph # (Auto) 0.2 L King # (Auto) 0.1 Eos # (Auto) 0.0 Baso # (Auto) 0.0 WBC Differential . Differential Comment Auto diff final PT INR APTT Puncture Site Patient Temperature O2 Saturation ABG pH ABG pCO2 ABG pO2 ABG HCO3 ABG O2 Content ABG Base Excess ABG Methemoglobin Daryn Test Hemoglobin Carboxyhemoglobin O2 Delivery Device Vent Setting Inspired O2 Critical Value Sodium Potassium Chloride Carbon Dioxide Anion Gap BUN Creatinine Estimated GFR POC Glucose Random Glucose Calcium Phosphorus Magnesium Total Bilirubin AST ALT Alkaline Phosphatase Troponin I 0.03 Total Protein Albumin Nasal Screen MRSA (PCR) Not detected 06/02/18 06/02/18 06/02/18 04:03 04:03 05:44 WBC RBC Hgb Hct MCV MCH MCHC RDW Plt Count MPV Neut % (Auto) Lymph % (Auto) King % (Auto) Eos % (Auto) Baso % (Auto) Neut # (Auto) Lymph # (Auto) King # (Auto) Eos # (Auto) Baso # (Auto) WBC Differential Differential Comment PT 13.6 H INR 1.3 APTT 25.7 Puncture Site Right radial Patient Temperature 98.6 O2 Saturation 92 ABG pH 7.32 L ABG pCO2 70 H* ABG pO2 91 ABG HCO3 35 H ABG O2 Content 12.7 ABG Base Excess 9.0 H ABG Methemoglobin 1.5 Daryn Test Present Hemoglobin 9.7 L Carboxyhemoglobin 2.5 O2 Delivery Device Bipap Vent Setting 18/5 Inspired O2 30 Critical Value Yes Sodium 144 Potassium 3.9 Chloride 99 Carbon Dioxide 34.8 H Anion Gap 10 BUN 73 H Creatinine 1.59 H Estimated GFR 44 L POC Glucose Random Glucose 126 H Calcium 8.7 Phosphorus 4.7 Magnesium 2.3 Total Bilirubin 0.9 AST 39 H ALT 45 Alkaline Phosphatase 254 H Troponin I 0.02 Total Protein 6.6 Albumin 3.4 Nasal Screen MRSA (PCR) 06/02/18 06/02/18 06/02/18 07:39 11:19 14:10 WBC RBC Hgb 9.3 L Hct MCV MCH MCHC RDW Plt Count MPV Neut % (Auto) Lymph % (Auto) King % (Auto) Eos % (Auto) Baso % (Auto) Neut # (Auto) Lymph # (Auto) King # (Auto) Eos # (Auto) Baso # (Auto) WBC Differential Differential Comment PT INR APTT Puncture Site Patient Temperature O2 Saturation ABG pH ABG pCO2 ABG pO2 ABG HCO3 ABG O2 Content ABG Base Excess ABG Methemoglobin Daryn Test Hemoglobin Carboxyhemoglobin O2 Delivery Device Vent Setting Inspired O2 Critical Value Sodium Potassium Chloride Carbon Dioxide Anion Gap BUN Creatinine Estimated GFR POC Glucose 182 H 199 H Random Glucose Calcium Phosphorus Magnesium Total Bilirubin AST ALT Alkaline Phosphatase Troponin I Total Protein Albumin Nasal Screen MRSA (PCR) 06/02/18 06/02/18 16:58 20:14 WBC RBC Hgb Hct MCV MCH MCHC RDW Plt Count MPV Neut % (Auto) Lymph % (Auto) King % (Auto) Eos % (Auto) Baso % (Auto) Neut # (Auto) Lymph # (Auto) King # (Auto) Eos # (Auto) Baso # (Auto) WBC Differential Differential Comment PT INR APTT Puncture Site Patient Temperature O2 Saturation ABG pH ABG pCO2 ABG pO2 ABG HCO3 ABG O2 Content ABG Base Excess ABG Methemoglobin Daryn Test Hemoglobin Carboxyhemoglobin O2 Delivery Device Vent Setting Inspired O2 Critical Value Sodium Potassium Chloride Carbon Dioxide Anion Gap BUN Creatinine Estimated GFR POC Glucose 168 H 178 H Random Glucose Calcium Phosphorus Magnesium Total Bilirubin AST ALT Alkaline Phosphatase Troponin I Total Protein Albumin Nasal Screen MRSA (PCR) <Edd Lindo E - Last Filed: 06/02/18 21:40> Assessment and Plan - Plan GI bleed, bright red rectal bleeding, patient noted some mild rectal bleeding up to 2 weeks ago but states that for the past 2 days bleeding has increased has had a history of hemorrhoids and rectal bleeding before and had colonoscopy and endoscopy 2 years ago for the same symptoms. Patient has been on Xarelto for approximately 5 years due to cardiac ablations. Currently bleeding is more controlled and patient Xarelto has been held and he is being managed in the intensive care setting History of constipation, does note some straining at times but states bowel movements are usually daily formed hard stools and sometimes he goes up to 2 or 3 days with no BM Anemia currently hemoglobin 9.6 PT/INR 1.3 which may be related to his Xarelto dose Alcohol usually daily at least 2 drinks a day sometimes more states he has cut down within the past 6 months. AST elevated mild this could be related to his morbid obesity and fatty liver disease bilirubin normal at 0.9, ALT 45, alkaline phosphatase 254. Currently no family history of colon cancer, patient denies any nausea vomiting diarrhea or dyspepsia dyspnea. According to the record and patient he was at [facility] for rehab and started having some bright red rectal bleeding over the past couple weeks patient states that the bleeding became more intense and more obvious over the past 2 days before admission and he reported this to the staff. Patient is currently on 5 L of oxygen and O2 sat is now between 93 and 95, but according to the record has been as low as 89% on admission to the emergency room. altered mental status which appears to be more mild now but patient is a poor historian due to his history. This could be related to his dyspnea and his O2 sats which have been fairly labile currently being managed on 5 L of oxygen , O2 sats between [address] was also done on admission which showed right pleural effusions and patient is currently being managed in the intensive care Discussed with patient the need for colonoscopy and to evaluate his rectal bleeding, the need for holding his blood thinners and patient verbalizes understanding. We will also need to make sure the patient is stable from a cardiac standpoint as well as a pulmonary standpoint before we look at colonoscopy. Patient is still requiring O2 at 5 L and also has dyspnea shortness of breath and a right pleural effusion. Plan Diet clear liquids for now Xarelto hold Consider colonoscopy when patient is stable hopefully within the next couple of days PPI Monitor labs with special attention to LFTs and PT/INR as well as hemoglobin Transfuse as needed Bowel regimen Supportive care Further recommendations to follow Patient was seen per myself and Dr. Lindo, note was written on his behalf <Marianela Moffett - Last Filed: 06/02/18 11:23> - Plan Patient seen and examined With underlying COPD exacerbation and shortness of breath requiring O2 Patient also known to be on Xarelto due to cardiac reasons Patient reporting bright red blood per rectum he will be needing a colonoscopy or flexible sigmoidoscopy at some point his last colonoscopy was more than a year ago Currently no active bleeding and at this point will monitor and transfuse as needed Priorities to his respiratory state Further recommendations shall depend on his hospital course <Edd Lindo - Last Filed: 06/02/18 21:40>
[2018-06-02] MEDS ORDERED: Vancomycin Consult Pharmacy OTHER PRN (15:03)
[2018-06-02] MEDS ORDERED: Vancomycin Inj 2,500 MG in Sodium Chlor 0.9% Inj 500 ML IV.SIG ONE (18:00)
--- NOTE | 2018-06-02 19:26 | MB ---
cc: Yordan Farr MD DATE: 06/02/2018 REASON FOR CONSULTATION: Morbid obesity, question of sleep apnea and evidence of respiratory failure. HISTORY OF PRESENT ILLNESS: The patient is a 62-year-old male admitted through the emergency room with increasing shortness of breath. The patient described the bright red blood per rectum, was placed on oxygen therapy given bronchodilator therapy as well as diuresis. CT scan of the chest showed bilateral effusions, small on the left, moderate on the right with loculation. The patient was admitted to the intensive care unit. Seems to be doing a bit better at this time. The patient is morbidly obese, has seen Dr. Reid in the past. Sleep study was suggested, but the patient lives at [facility], and he tells me it is difficult for him to do any lab evaluation. Therefore, he did not seek further evaluation for his sleep. He snores loudly at night, tired and sleepy in the day and was told he stops breathing when he sleeps. PAST MEDICAL HISTORY: COPD, hypertension, atrial fibrillation, congestive heart failure, diabetes mellitus, and question sleep apnea as above. PAST SURGICAL HISTORY: T and A as a child, cardiac ablation, previous appendectomy. FAMILY HISTORY: Noncontributory. REVIEW OF SYSTEMS: A 12-point review of systems as per HPI and past history otherwise negative. MEDICATIONS: Can be reviewed in MAR. ALLERGIES: NONE KNOWN TO MEDICATION. SYSTEMS REVIEW A 12-point review of system is as per HPI and past history, otherwise negative. LABORATORY DATA: White count 6.7, hemoglobin 9, hematocrit 33, platelets 160,000. INR is 1.3. Arterial blood gas pH 7.32, pCO2 70, pO2 of 91. Sodium 144, potassium 3.9, BUN 73, creatinine 1.5. CT scan of the chest as described above. IMPRESSION: 1. Respiratory failure. 2. Congestive heart failure. 3. Obesity hypoventilation and/or obstructive sleep apnea. 4. Rectal bleed. 5. Bilateral pleural effusion. PLAN: The patient is improved at present. He would benefit from BiPAP therapy, especially while sleeping. His effusions seem related to congestive heart failure with evidence of loculation, likely chronic. Unless the patient is distressed, no reason for thoracentesis at this point with continuous oxygen therapy, bronchodilator therapy and will try to arrange for further sleep evaluation on an in-home basis upon discharge and provide therapy. I do thank you for asking me to partake in Mr. Nix's care. Sincerely, Yordan Farr MD WWW/ct/do , 05:07 PM , 05:17 PM
--- NOTE | 2018-06-02 21:30 | ECG ---
Date Performed: 06/01/2018 Time Performed: 18:57:14 PTAGE: 62 years EKG: Sinus rhythm RIGHT BUNDLE BRANCH BLOCK LEFT ANTERIOR FASCICULAR BLOCK ABNORMAL ECG PREVIOUS TRACING : 05/01/2018 23.49 Since the previous tracing, no significant change noted DOCTOR: Mike Ren Interpretating Date/Time 06/02/2018 21:28:40
[2018-06-03] MEDS: MethylPREDNISolone Sod Succinate Inj 40 MG/ML Vial IV.PUSH SCH ×4 (01:43→21:08)
[2018-06-03] MEDS: Chlorhexidine Gluconate 2% 1 Pack (2 Cloths) TOPICAL SCH (03:51)
[2018-06-03 05:02] LABS: Activated Partial Thrombo Time 24.7 sec (24.3-30.1); INR 1.3 Ratio; Prothrombin Time 13.3 sec (9.8-11.6)
[2018-06-03 05:03] LABS: Baso % (Auto) 0.1 % (0.0-2.0); Eos % (Auto) 0.1 % (0.0-4.0); Hematocrit 31.5 % (39.0-51.0); Hemoglobin 9.3 gm/dL (13.0-17.0); Lymph # (Auto) 0.1 th/mm3 (1.0-4.8); Mean Corpuscular Hemoglobin 26.4 pg (27.0-34.0); Mean Corpuscular Volume 89.7 fL (80.0-100.0); Mean Platelet Volume 7.9 fL (7.0-11.0); Mono # (Auto) 0.1 th/mm3 (0.0-0.9); Mono % (Auto) 2.7 % (0.0-8.0); Neut % (Auto) 94.1 % (16.0-70.0); Platelet Count 162 th/mm3 (150-450); Red Blood Count 3.52 mil/mm3 (4.50-5.90); Red Cell Distribution Width 21.9 % (11.6-17.2); White Blood Count 4.2 th/mm3 (4.0-11.0)
[2018-06-03 05:07] LABS: Mean Corpuscular HGB Conc 29.4 % (32.0-36.0)
[2018-06-03 05:44] LABS: Alanine Aminotransferase 36 U/L (12-78); Albumin 3.5 g/dL (3.4-5.0); Anion Gap 11 meq/L (5-15); Aspartate Aminotransferase 19 U/L (15-37); Blood Urea Nitrogen 76 mg/dL (7-18); Calcium 8.7 mg/dL (8.5-10.1); Carbon Dioxide 33.4 meq/L (21.0-32.0); Chloride 99 meq/L (98-107); Glomerular Filtration Rate 46 mL/min (>89); Potassium 3.7 meq/L (3.5-5.1); Sodium 143 meq/L (136-145)
[2018-06-03 05:45] LABS: Glucose,Random 150 mg/dL (74-106); Magnesium 2.3 mg/dL (1.5-2.5)
[2018-06-03 05:58] LABS: Alkaline Phosphatase 204 U/L (45-117); Digoxin 1.7 ng/mL (0.8-2.0); Phosphorus 4.5 mg/dL (2.5-4.9); Total Protein 6.6 g/dL (6.4-8.2)
--- NOTE | 2018-06-03 06:01 | XR ---
EXAM DATE: 06/03/2018 4:14 AM EDT AGE/SEX: 62 years / Male INDICATIONS: Respiratory failure. CLINICAL DATA: This is the patient's subsequent encounter. Patient reports that signs and symptoms h ave been present for 3 days and indicates a pain score of Nonresponsive. MEDICAL/SURGICAL HISTORY: Non-responsive. Non-responsive. COMPARISON: [facility], CHEST 1V SINGLE AP, 06/01/2018. . FINDINGS: Hazy bilateral primarily basilar pleural-parenchymal opacity is somewhat improved from prior. Visuali zed cardiac contours are grossly unchanged. CONCLUSION: Improving aeration Electronically signed by: Renny Hinojosa MD 06/03/2018 6:00 AM EDT
--- NOTE | 2018-06-03 08:34 | P.PNCC ---
Subjective Subjective Remarks/Hospital Course: 62-year-old morbidly obese male with CHF, diabetes mellitus, chronic urinary retention, hyperlipidemia, hypertension, ulcer, COPD, that was brought in from [facility] due to increased dyspnea. The patient is on home O2 at 2 L via nasal cannula which brought his saturation up to 98 from 89% on 5 L and then was titrated by EMS to 3L. In the emergency department he was found to be altered with increased confusion which is not normal for the patient. Facility staff also reported that they observed Aj blood from the patient's rectum and he has history of hemorrhoids. The patient denies any symptoms at this time but he does appear slightly confused. After reviewing previous charts it appears that the patient was discharged on the of this month where he was admitted here for diastolic congestive heart failure. He also had multiple admissions due to COPD exacerbation. 06/02: Afebrile. P CO2 70%. Maintaining within normal limits. No new rectal bleeding overnight. Will start on diet. SUBJECTIVE: 06/03: Resting comfortably in bed. Desaturations overnight. Will need obviously today. Hemoglobin stable. One episode of bright red blood per rectum /large according to RN. Holding rivaroxaban Objective Vital Signs / I&O: Vital Signs 06/02/18 09:00 06/02/18 10:00 06/02/18 10:01 Temperature Pulse Rate 86 90 87 Respiratory Rate 23 48 H 32 H Blood Pressure 116/65 127/96 H 127/96 H Pulse Oximetry 98 93 L 71 L 06/02/18 11:00 06/02/18 11:05 06/02/18 12:00 Temperature 97.7 F 97.7 F Pulse Rate 74 72 72 Respiratory Rate 32 H 24 27 H Blood Pressure 119/60 119/60 116/67 Pulse Oximetry 88 L 98 91 L 06/02/18 12:13 06/02/18 13:00 06/02/18 13:01 Temperature Pulse Rate 70 80 Respiratory Rate 16 25 H Blood Pressure 115/59 L 115/59 L Pulse Oximetry 93 L 06/02/18 14:00 06/02/18 15:00 06/02/18 16:00 Temperature 97.7 F Pulse Rate 75 76 75 Respiratory Rate 20 23 19 Blood Pressure 127/65 133/68 133/78 Pulse Oximetry 98 98 99 06/02/18 16:52 06/02/18 17:00 06/02/18 17:01 Temperature 97.7 F Pulse Rate 78 82 80 Respiratory Rate 18 27 H 20 Blood Pressure 139/74 139/74 Pulse Oximetry 99 96 06/02/18 18:00 06/02/18 19:00 06/02/18 20:00 Temperature 98.4 F Pulse Rate 86 86 81 Respiratory Rate 25 H 26 H 21 Blood Pressure 103/56 L 96/53 L 100/59 L Pulse Oximetry 100 96 93 L 06/02/18 21:00 06/02/18 21:07 06/02/18 22:00 Temperature Pulse Rate 75 75 74 Respiratory Rate 19 22 20 Blood Pressure 119/65 91/56 L Pulse Oximetry 97 94 L 87 L 06/02/18 23:00 06/02/18 23:56 06/03/18 00:00 Temperature 98.6 F Pulse Rate 79 74 75 Respiratory Rate 20 20 20 Blood Pressure 106/60 116/57 L Pulse Oximetry 98 92 L 06/03/18 01:00 06/03/18 01:10 06/03/18 02:00 Temperature Pulse Rate 81 82 Respiratory Rate 16 22 Blood Pressure 104/59 L 115/74 Pulse Oximetry 94 L 94 L 92 L 06/03/18 03:00 06/03/18 03:41 06/03/18 04:00 Temperature 98.2 F Pulse Rate 77 83 83 Respiratory Rate 15 16 20 Blood Pressure 100/58 L 130/68 Pulse Oximetry 93 L 100 06/03/18 05:00 06/03/18 06:00 06/03/18 07:39 Temperature Pulse Rate 89 88 89 Respiratory Rate 13 18 14 Blood Pressure 116/59 L 122/78 Pulse Oximetry 87 L 97 96 Intake & Output 06/02/18 06/03/18 06/03/18 18:59 06:59 18:59 Intake Total 2140 / 2140 1345 / 1345 Output Total 1700 / 1700 1650 / 1650 Balance 440 / 440 -305 / -305 Weight 169 kg Intake: IV 100 / 100 625 / 625 Maxipime Inj 1,000 MG In NS Inj 100 / 100 100 / 100 100 ML @ 200 mls/hr IV.SIG Q12H DOLLY Rx#:[id number] Vancomycin Inj 2,500 MG In NS 525 / 525 Inj 500 ML @ 250 mls/hr IV.SIG ONCE ONE Rx#:[id number] Oral 1800 / 1800 720 / 720 Oral Supplement 240 / 240 Output: Urine Amount (Catheter) 1700 / 1700 1650 / 1650 Indwelling Urethral Catheter 1700 / 1700 1650 / 1650 Other: Date of Last Bowel Movement 06/02/18 # Bowel Movements 1 # Incontinent Bowel Movements 1 Result Diagrams: 06/03/18 04:28 06/03/18 04:28 Other Results: Microbiology 06/01/18 16:50 Blood - Peripheral Aerobic Blood Culture - Preliminary gram positive cocci 06/01/18 16:50 Blood - Peripheral Anaerobic Blood Culture - Preliminary No growth in 1 day 06/01/18 16:10 Catheterized Urine Urine Culture - Final 06/01/18 16:45 Blood - Peripheral Aerobic Blood Culture - Preliminary No growth in 1 day 06/01/18 16:45 Blood - Peripheral Anaerobic Blood Culture - Preliminary No growth in 1 day 06/01/18 16:05 Nasal Wash Influenza Types A,B Antigen - Final Negative for FLU A and B antigen Infection due to influenza A or B cannot be ruled out since the antigen present in the sample may be below the detection limit of the test. Imaging: ITS Impressions Chest CT 06/01/18 18:17 CONCLUSION: 1. Moderate sized partially loculated right pleural effusion. Trace left pleural fluid. Partial compressive atelectasis of the right lung. 2. Moderate coronary calcifications. Chest X-Ray 06/03/18 06:00 CONCLUSION: Improving aeration Objective Remarks: GENERAL: 62-year-old male currently resting in bed on nasal cannula in no acute distress SKIN: Warm and dry. Chronic venous stasis bilateral extremities HEAD: Atraumatic. Normocephalic. EYES: Pupils equal and round about 3 mm bilaterally. No scleral icterus. No injection or drainage. ENT: No nasal bleeding or discharge. Mucous membranes pink and moist. NECK: Trachea midline. No JVD. CARDIOVASCULAR: Regular rate and rhythm. S1, S2. No S4. RESPIRATORY: Diminished breath sounds throughout. Breath sounds equal bilaterally. GASTROINTESTINAL: Abdomen obese, nontender. Hepatic and splenic margins not palpable. MUSCULOSKELETAL: Extremities with positive bilateral lower extremity edema. No obvious deformities. NEUROLOGICAL: Awake and alert. No obvious cranial nerve deficits. Motor grossly within normal limits. Five out of 5 muscle strength in the arms and legs. Normal speech. PSYCHIATRIC: Appropriate mood and affect; insight and judgment normal. Assessment and Plan - Assessment and Plan Plan: Neuro/Psych: History of TIA Insomnia Melatonin 5 mg daily at care home for insomnia. Acetaminophen 650 p.o. every 6 hours as needed fever CV: Atrial fibrillation -currently normal sinus rhythm Chronic diastolic heart failure ejection fraction 50-55% Essential hypertension Hyperlipidemia History of ablation [address] Page On atorvastatin 40 mg daily for dyslipidemia. On digoxin 0.25 mg daily. Check level/1.7/ Currently on diltiazem 240 mg daily, metoprolol tartrate 100 mg daily for essential hypertension Currently on bumetanide 1 mg twice daily, torsemide 40 mg daily and acetazolamide 125 mg twice daily Last 2D echocardiogram 12/30 revealed a 50-55%. Mild LVH. Resp: Acute hypoxic respiratory failure History of COPD/oxygen dependent Obstructive sleep apnea Currently budesonide/formoterol 160/4.5 2 puffs twice daily Albuterol/ipratropium aerosols every 4 hours with albuterol aerosols every 2 hours as needed for dyspnea As needed BiPAP Last PCO2 was 70 the patient appears comfortable at the present time. 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 Currently on pantoprazole 40 milligrams IV twice daily Clear liquid diet Docusate sodium/senna 1 tablet twice daily for bowel regimen GI consultation for lower GI bleed. Currently monitoring : BPH Continue tamsulosin 0.4 mg daily Endo: Diabetes mellitus 1.5 treat is 1.0 Chronic prednisone use/10 mg daily Sliding scale insulin with aspart insulin before meals at bedtime to maintain euglycemia Holding home medications U100 Renal: Chronic kidney disease stage III a Monitor urine output Accurate I's and O's Creatinine appears close to baseline Heme: Chronic rivaroxaban use Holding Lorazepam in light of lower GI bleed/bright red blood per rectum Continue ferrous sulfate 325 mg by mouth twice daily ID: UTI Blood cultures 2 -1 out of 2 gram-positive cocci possibly contaminant. Await final results., UA no growth Influenza a and B- We will start on cefepime renally dosed see orders Started vancomycin yesterday due to gram-positive cocci in blood likely count. Follow-up FEN: History of hyperphosphatemia Replace electrolytes as clinically indicated Holding potassium chloride 20 mg daily/home medication Continue calcium acetate 667 mg 3 times daily MSK: Elevated BMI Weight loss encouraged Access -Utilize peripheral IV. Prophylaxis -GI -pantoprazole -DVT -SCD/holding pharmacological prophylaxis in light of acute lower GI bleed Level 2 follow-up. Patient stable from critical care standpoint. Assign care to hospitalist in a.m. 06/04.
[2018-06-03] MEDS: Insulin NovoLOG Aspart Correctional Sugar Inj SQ SCH ×4 (08:38→21:10)
[2018-06-03] MEDS: dilTIAZem CD 240 MG Capsule PO SCH (08:40)
[2018-06-03] MEDS: Torsemide 20 MG Tablet PO SCH (08:40)
[2018-06-03] MEDS: Ferrous Sulfate 325 MG Tablet PO SCH ×2 (08:40→21:09)
[2018-06-03] MEDS: acetaZOLAMIDE 250 MG TABLET PO SCH ×2 (08:40→21:09)
[2018-06-03] MEDS: Potassium Chloride 25 MEQ Effervescent Tablet PO SCH (08:40)
[2018-06-03] MEDS: Metoprolol Tartrate 100 MG Tablet PO SCH ×2 (08:41→21:09)
[2018-06-03] MEDS: Digoxin 250 MCG Tablet PO SCH (08:41)
[2018-06-03] MEDS: Budesonide-Formoterol 160/4.5 MCG 6 GM Inhaler INH SCH ×2 (08:42→21:09)
[2018-06-03] MEDS: Pantoprazole Inj 40 MG Vial IV.PUSH SCH ×2 (08:42→21:08)
[2018-06-03] MEDS: Senna/Docusate Sodium 8.6/50 MG Tablet PO SCH ×2 (08:42→21:09)
[2018-06-03] MEDS: Calcium Acetate 667 MG Capsule PO SCH ×3 (08:42→17:12)
[2018-06-03] MEDS: Azithromycin 250 MG Tablet PO SCH (08:42)
[2018-06-03 10:14] LABS: Hematocrit 31.4 % (39.0-51.0); Hemoglobin 9.2 gm/dL (13.0-17.0); Lymph # (Auto) 0.1 th/mm3 (1.0-4.8); Lymph % (Auto) 1.9 % (9.0-44.0); Mean Corpuscular Hemoglobin 26.5 pg (27.0-34.0); Mean Corpuscular Volume 90.7 fL (80.0-100.0); Mono # (Auto) 0.2 th/mm3 (0.0-0.9); Mono % (Auto) 3.7 % (0.0-8.0); Neut # (Auto) 4.8 th/mm3 (1.8-7.7); Neut % (Auto) 94.4 % (16.0-70.0); Platelet Count 164 th/mm3 (150-450); Red Blood Count 3.47 mil/mm3 (4.50-5.90); Red Cell Distribution Width 22.9 % (11.6-17.2)
--- NOTE | 2018-06-03 10:24 | P.PNGI ---
Subjective Interval history: pt is resting in bed, hasn't had a BM today, not having abd pain, nausea, vomiting or bleeding today. <Terry Dao - Last Filed: 06/03/18 10:16> Physical Exam Vital signs: Vital Signs 06/02/18 11:00 06/02/18 11:05 06/02/18 12:00 Temperature 97.7 F 97.7 F Pulse Rate 74 72 72 Respiratory Rate 32 H 24 27 H Blood Pressure 119/60 119/60 116/67 Pulse Oximetry 88 L 98 91 L 06/02/18 12:13 06/02/18 13:00 06/02/18 13:01 Temperature Pulse Rate 70 80 Respiratory Rate 16 25 H Blood Pressure 115/59 L 115/59 L Pulse Oximetry 93 L 06/02/18 14:00 06/02/18 15:00 06/02/18 16:00 Temperature 97.7 F Pulse Rate 75 76 75 Respiratory Rate 20 23 19 Blood Pressure 127/65 133/68 133/78 Pulse Oximetry 98 98 99 06/02/18 16:52 06/02/18 17:00 06/02/18 17:01 Temperature 97.7 F Pulse Rate 78 82 80 Respiratory Rate 18 27 H 20 Blood Pressure 139/74 139/74 Pulse Oximetry 99 96 06/02/18 18:00 06/02/18 19:00 06/02/18 20:00 Temperature 98.4 F Pulse Rate 86 86 81 Respiratory Rate 25 H 26 H 21 Blood Pressure 103/56 L 96/53 L 100/59 L Pulse Oximetry 100 96 93 L 06/02/18 20:30 06/02/18 21:00 06/02/18 21:07 Temperature Pulse Rate 75 75 Respiratory Rate 19 22 Blood Pressure 121/61 119/65 Pulse Oximetry 97 94 L 06/02/18 22:00 06/02/18 22:14 06/02/18 22:30 Temperature Pulse Rate 74 76 75 Respiratory Rate 20 24 18 Blood Pressure 91/56 L 91/56 L 103/60 Pulse Oximetry 87 L 96 97 06/02/18 23:00 06/02/18 23:30 06/02/18 23:56 Temperature Pulse Rate 79 72 74 Respiratory Rate 20 18 20 Blood Pressure 106/60 96/52 L Pulse Oximetry 98 95 06/03/18 00:00 06/03/18 00:31 06/03/18 01:00 Temperature 98.6 F Pulse Rate 75 81 81 Respiratory Rate 20 21 16 Blood Pressure 116/57 L 98/53 L 104/59 L Pulse Oximetry 92 L 94 L 94 L 06/03/18 01:10 06/03/18 01:30 06/03/18 02:00 Temperature Pulse Rate 80 82 Respiratory Rate 18 22 Blood Pressure 100/55 L 115/74 Pulse Oximetry 94 L 98 92 L 06/03/18 02:30 06/03/18 03:00 06/03/18 03:31 Temperature Pulse Rate 82 77 82 Respiratory Rate 15 15 24 Blood Pressure 110/62 100/58 L 129/70 Pulse Oximetry 95 93 L 97 06/03/18 03:41 06/03/18 04:00 06/03/18 04:31 Temperature 98.2 F Pulse Rate 83 83 88 Respiratory Rate 16 20 18 Blood Pressure 130/68 137/60 Pulse Oximetry 100 96 06/03/18 05:00 06/03/18 05:01 06/03/18 05:31 Temperature Pulse Rate 89 84 88 Respiratory Rate 13 13 14 Blood Pressure 116/59 L 116/59 L 100/57 L Pulse Oximetry 87 L 96 82 L 06/03/18 06:00 06/03/18 06:01 06/03/18 06:30 Temperature Pulse Rate 88 90 86 Respiratory Rate 18 19 15 Blood Pressure 122/78 122/78 122/66 Pulse Oximetry 97 99 100 06/03/18 07:00 06/03/18 07:01 06/03/18 07:30 Temperature Pulse Rate 86 80 90 Respiratory Rate 14 13 15 Blood Pressure 111/56 L 101/55 L Pulse Oximetry 85 L 90 L 83 L 06/03/18 07:39 06/03/18 08:00 06/03/18 08:37 Temperature 98.1 F Pulse Rate 89 94 H 95 H Respiratory Rate 14 28 H 27 H Blood Pressure 130/73 Pulse Oximetry 96 97 97 06/03/18 09:00 06/03/18 09:31 06/03/18 10:00 Temperature Pulse Rate 96 H 92 H 87 Respiratory Rate 25 H 21 23 Blood Pressure 126/65 117/65 124/83 Pulse Oximetry 97 98 100 Intake & Output 09/19/18 09/20/18 09/20/18 18:59 06:59 18:59 Intake Total 2140 / 2140 1345 / 1345 Output Total 1700 / 1700 1650 / 1650 Balance 440 / 440 -305 / -305 Weight 169 kg Intake: IV 100 / 100 625 / 625 Maxipime Inj 1,000 MG In NS Inj 100 / 100 100 / 100 100 ML @ 200 mls/hr IV.SIG Q12H [facility] Rx#:[id number] Vancomycin Inj 2,500 MG In NS 525 / 525 Inj 500 ML @ 250 mls/hr IV.SIG ONCE ONE Rx#:[id number] Oral 1800 / 1800 720 / 720 Oral Supplement 240 / 240 Output: Urine Amount (Catheter) 1700 / 1700 1650 / 1650 Indwelling Urethral Catheter 1700 / 1700 1650 / 1650 Other: Date of Last Bowel Movement 06/02/18 # Bowel Movements 1 # Incontinent Bowel Movements 1 - Constitutional no acute distress - Routine HEENT Exam Head: Present: normocephalic - Routine Respiratory Exam Present: CTA bilaterally - Routine Cardiovascular Exam Present: RRR - Routine Abdominal Exam Present: soft, normoactive bowel sounds. Absent: tenderness, distended - Routine Skin Exam Present: intact, dry. Absent: jaundice - Routine Neurological Exam Present: alert, oriented X3 - Urinary Catheter Management Indwelling Urethral Catheter Cath placed during this visit: no Reason for continuing: Chronic Urinary Retention <Terry Dao - Last Filed: 06/03/18 10:16> Vital signs: Vital Signs 06/02/18 16:00 06/02/18 16:52 06/02/18 17:00 Temperature 97.7 F 97.7 F Pulse Rate 75 78 82 Respiratory Rate 19 18 27 H Blood Pressure 133/78 139/74 Pulse Oximetry 99 99 06/02/18 17:01 06/02/18 18:00 06/02/18 19:00 Temperature Pulse Rate 80 86 86 Respiratory Rate 20 25 H 26 H Blood Pressure 139/74 103/56 L 96/53 L Pulse Oximetry 96 100 96 06/02/18 20:00 06/02/18 20:30 06/02/18 21:00 Temperature 98.4 F Pulse Rate 81 75 Respiratory Rate 21 19 Blood Pressure 100/59 L 121/61 119/65 Pulse Oximetry 93 L 97 06/02/18 21:07 06/02/18 22:00 06/02/18 22:14 Temperature Pulse Rate 75 74 76 Respiratory Rate 22 20 24 Blood Pressure 91/56 L 91/56 L Pulse Oximetry 94 L 87 L 96 06/02/18 22:30 06/02/18 23:00 06/02/18 23:30 Temperature Pulse Rate 75 79 72 Respiratory Rate 18 20 18 Blood Pressure 103/60 106/60 96/52 L Pulse Oximetry 97 98 95 06/02/18 23:56 06/03/18 00:00 06/03/18 00:31 Temperature 98.6 F Pulse Rate 74 75 81 Respiratory Rate 20 20 21 Blood Pressure 116/57 L 98/53 L Pulse Oximetry 92 L 94 L 06/03/18 01:00 06/03/18 01:10 06/03/18 01:30 Temperature Pulse Rate 81 80 Respiratory Rate 16 18 Blood Pressure 104/59 L 100/55 L Pulse Oximetry 94 L 94 L 98 06/03/18 02:00 06/03/18 02:30 06/03/18 03:00 Temperature Pulse Rate 82 82 77 Respiratory Rate 22 15 15 Blood Pressure 115/74 110/62 100/58 L Pulse Oximetry 92 L 95 93 L 06/03/18 03:31 06/03/18 03:41 06/03/18 04:00 Temperature 98.2 F Pulse Rate 82 83 83 Respiratory Rate 24 16 20 Blood Pressure 129/70 130/68 Pulse Oximetry 97 100 06/03/18 04:31 06/03/18 05:00 06/03/18 05:01 Temperature Pulse Rate 88 89 84 Respiratory Rate 18 13 13 Blood Pressure 137/60 116/59 L 116/59 L Pulse Oximetry 96 87 L 96 06/03/18 05:31 06/03/18 06:00 06/03/18 06:01 Temperature Pulse Rate 88 88 90 Respiratory Rate 14 18 19 Blood Pressure 100/57 L 122/78 122/78 Pulse Oximetry 82 L 97 99 06/03/18 06:30 06/03/18 07:00 06/03/18 07:01 Temperature Pulse Rate 86 86 80 Respiratory Rate 15 14 13 Blood Pressure 122/66 111/56 L Pulse Oximetry 100 85 L 90 L 06/03/18 07:30 06/03/18 07:39 06/03/18 08:00 Temperature 98.1 F Pulse Rate 90 89 94 H Respiratory Rate 15 14 28 H Blood Pressure 101/55 L Pulse Oximetry 83 L 96 97 06/03/18 08:37 06/03/18 09:00 06/03/18 09:31 Temperature Pulse Rate 95 H 96 H 92 H Respiratory Rate 27 H 25 H 21 Blood Pressure 130/73 126/65 117/65 Pulse Oximetry 97 97 98 06/03/18 10:00 06/03/18 10:30 06/03/18 11:00 Temperature Pulse Rate 87 83 80 Respiratory Rate 23 29 H 18 Blood Pressure 124/83 132/75 Pulse Oximetry 100 99 98 06/03/18 11:01 06/03/18 11:30 06/03/18 11:49 Temperature 97.7 F Pulse Rate 79 76 78 Respiratory Rate 16 34 H 16 Blood Pressure 113/74 104/61 Pulse Oximetry 96 97 06/03/18 12:00 06/03/18 12:30 06/03/18 13:00 Temperature 97.7 F Pulse Rate 74 76 79 Respiratory Rate 18 21 23 Blood Pressure 111/70 116/69 114/61 Pulse Oximetry 97 98 87 L 06/03/18 13:31 06/03/18 14:00 06/03/18 14:30 Temperature Pulse Rate 82 77 76 Respiratory Rate 26 H 19 20 Blood Pressure 105/57 L 120/64 123/66 Pulse Oximetry 99 100 100 06/03/18 15:00 06/03/18 15:19 06/03/18 15:30 Temperature Pulse Rate 77 77 76 Respiratory Rate 17 20 21 Blood Pressure 119/67 129/71 Pulse Oximetry 99 100 Intake & Output 06/02/18 06/03/18 06/03/18 18:59 06:59 18:59 Intake Total 2140 / 2140 1345 / 1345 Output Total 1700 / 1700 1650 / 1650 Balance 440 / 440 -305 / -305 Weight 169 kg Intake: IV 100 / 100 625 / 625 Maxipime Inj 1,000 MG In NS Inj 100 / 100 100 / 100 100 ML @ 200 mls/hr IV.SIG Q12H [facility] Rx#:[id number] Vancomycin Inj 2,500 MG In NS 525 / 525 Inj 500 ML @ 250 mls/hr IV.SIG ONCE ONE Rx#:[id number] Oral 1800 / 1800 720 / 720 Oral Supplement 240 / 240 Output: Urine Amount (Catheter) 1700 / 1700 1650 / 1650 Indwelling Urethral Catheter 1700 / 1700 1650 / 1650 Other: Date of Last Bowel Movement 06/02/18 # Bowel Movements 1 # Incontinent Bowel Movements 1 - Urinary Catheter Management Indwelling Urethral Catheter Cath placed during this visit: no <Edd Lindo E - Last Filed: 06/03/18 15:40> Results - Labs CBC & Chem 7: 06/03/18 04:28 06/03/18 04:28 Laboratory Results - last 24 hr 06/02/18 06/02/18 06/02/18 11:19 14:10 16:58 WBC RBC Hgb 9.3 L Hct MCV MCH MCHC RDW Plt Count MPV Neut % (Auto) Lymph % (Auto) [place] % (Auto) Eos % (Auto) Baso % (Auto) Neut # (Auto) Lymph # (Auto) [place] # (Auto) Eos # (Auto) Baso # (Auto) WBC Differential Differential Comment PT INR APTT Sodium Potassium Chloride Carbon Dioxide Anion Gap BUN Creatinine Estimated GFR POC Glucose 199 H 168 H Random Glucose Lactic Acid Calcium Phosphorus Magnesium Total Bilirubin AST ALT Alkaline Phosphatase Ammonia Total Protein Albumin Digoxin 06/02/18 06/02/18 06/03/18 20:14 21:42 04:28 WBC 4.2 RBC 3.52 L Hgb 9.1 L 9.3 L Hct 31.5 L MCV 89.7 MCH 26.4 L MCHC 29.4 L RDW 21.9 H Plt Count 162 MPV 7.9 Neut % (Auto) 94.1 H Lymph % (Auto) 3.0 L [place] % (Auto) 2.7 Eos % (Auto) 0.1 Baso % (Auto) 0.1 Neut # (Auto) 4.0 Lymph # (Auto) 0.1 L [place] # (Auto) 0.1 Eos # (Auto) 0.0 Baso # (Auto) 0.0 WBC Differential . Differential Comment Auto diff final PT INR APTT Sodium Potassium Chloride Carbon Dioxide Anion Gap BUN Creatinine Estimated GFR POC Glucose 178 H Random Glucose Lactic Acid Calcium Phosphorus Magnesium Total Bilirubin AST ALT Alkaline Phosphatase Ammonia Total Protein Albumin Digoxin 06/03/18 06/03/18 06/03/18 04:28 04:28 04:28 WBC RBC Hgb Hct MCV MCH MCHC RDW Plt Count MPV Neut % (Auto) Lymph % (Auto) [place] % (Auto) Eos % (Auto) Baso % (Auto) Neut # (Auto) Lymph # (Auto) [place] # (Auto) Eos # (Auto) Baso # (Auto) WBC Differential Differential Comment PT 13.3 H INR 1.3 APTT 24.7 Sodium 143 Potassium 3.7 Chloride 99 Carbon Dioxide 33.4 H Anion Gap 11 BUN 76 H Creatinine 1.53 H Estimated GFR 46 L POC Glucose Random Glucose 150 H Lactic Acid 1.2 Calcium 8.7 Phosphorus 4.5 Magnesium 2.3 Total Bilirubin 0.8 AST 19 ALT 36 Alkaline Phosphatase 204 H Ammonia Total Protein 6.6 Albumin 3.5 Digoxin 1.7 06/03/18 06/03/18 04:28 07:50 WBC RBC Hgb Hct MCV MCH MCHC RDW Plt Count MPV Neut % (Auto) Lymph % (Auto) [place] % (Auto) Eos % (Auto) Baso % (Auto) Neut # (Auto) Lymph # (Auto) [place] # (Auto) Eos # (Auto) Baso # (Auto) WBC Differential Differential Comment PT INR APTT Sodium Potassium Chloride Carbon Dioxide Anion Gap BUN Creatinine Estimated GFR POC Glucose 161 H Random Glucose Lactic Acid Calcium Phosphorus Magnesium Total Bilirubin AST ALT Alkaline Phosphatase Ammonia 32 Total Protein Albumin Digoxin Microbiology 06/01/18 16:50 Blood - Peripheral Aerobic Blood Culture - Preliminary gram positive cocci 06/01/18 16:50 Blood - Peripheral Anaerobic Blood Culture - Preliminary No growth in 1 day 06/01/18 16:10 Catheterized Urine Urine Culture - Final 06/01/18 16:45 Blood - Peripheral Aerobic Blood Culture - Preliminary No growth in 1 day 06/01/18 16:45 Blood - Peripheral Anaerobic Blood Culture - Preliminary No growth in 1 day - Imaging Impressions Chest X-Ray 06/03/18 06:00 CONCLUSION: Improving aeration <Terry Dao - Last Filed: 06/03/18 10:16> - Labs CBC & Chem 7: 06/03/18 10:01 06/03/18 04:28 Laboratory Results - last 24 hr 06/02/18 06/02/18 06/02/18 16:58 20:14 21:42 WBC RBC Hgb 9.1 L Hct MCV MCH MCHC RDW Plt Count MPV Neut % (Auto) Lymph % (Auto) [place] % (Auto) Eos % (Auto) Baso % (Auto) Neut # (Auto) Lymph # (Auto) [place] # (Auto) Eos # (Auto) Baso # (Auto) WBC Differential Differential Comment PT INR APTT Sodium Potassium Chloride Carbon Dioxide Anion Gap BUN Creatinine Estimated GFR POC Glucose 168 H 178 H Random Glucose Lactic Acid Calcium Phosphorus Magnesium Total Bilirubin AST ALT Alkaline Phosphatase Ammonia Total Protein Albumin Digoxin 06/03/18 06/03/18 06/03/18 04:28 04:28 04:28 WBC 4.2 RBC 3.52 L Hgb 9.3 L Hct 31.5 L MCV 89.7 MCH 26.4 L MCHC 29.4 L RDW 21.9 H Plt Count 162 MPV 7.9 Neut % (Auto) 94.1 H Lymph % (Auto) 3.0 L [place] % (Auto) 2.7 Eos % (Auto) 0.1 Baso % (Auto) 0.1 Neut # (Auto) 4.0 Lymph # (Auto) 0.1 L [place] # (Auto) 0.1 Eos # (Auto) 0.0 Baso # (Auto) 0.0 WBC Differential . Differential Comment Auto diff final PT 13.3 H INR 1.3 APTT 24.7 Sodium 143 Potassium 3.7 Chloride 99 Carbon Dioxide 33.4 H Anion Gap 11 BUN 76 H Creatinine 1.53 H Estimated GFR 46 L POC Glucose Random Glucose 150 H Lactic Acid Calcium 8.7 Phosphorus 4.5 Magnesium 2.3 Total Bilirubin 0.8 AST 19 ALT 36 Alkaline Phosphatase 204 H Ammonia Total Protein 6.6 Albumin 3.5 Digoxin 1.7 06/03/18 06/03/18 06/03/18 04:28 04:28 07:50 WBC RBC Hgb Hct MCV MCH MCHC RDW Plt Count MPV Neut % (Auto) Lymph % (Auto) [place] % (Auto) Eos % (Auto) Baso % (Auto) Neut # (Auto) Lymph # (Auto) [place] # (Auto) Eos # (Auto) Baso # (Auto) WBC Differential Differential Comment PT INR APTT Sodium Potassium Chloride Carbon Dioxide Anion Gap BUN Creatinine Estimated GFR POC Glucose 161 H Random Glucose Lactic Acid 1.2 Calcium Phosphorus Magnesium Total Bilirubin AST ALT Alkaline Phosphatase Ammonia 32 Total Protein Albumin Digoxin 06/03/18 06/03/18 10:01 11:30 WBC 5.0 RBC 3.47 L Hgb 9.2 L Hct 31.4 L MCV 90.7 MCH 26.5 L MCHC 29.2 L RDW 22.9 H Plt Count 164 MPV 8.0 Neut % (Auto) 94.4 H Lymph % (Auto) 1.9 L [place] % (Auto) 3.7 Eos % (Auto) 0.0 Baso % (Auto) 0.0 Neut # (Auto) 4.8 Lymph # (Auto) 0.1 L [place] # (Auto) 0.2 Eos # (Auto) 0.0 Baso # (Auto) 0.0 WBC Differential . Differential Comment Auto diff final PT INR APTT Sodium Potassium Chloride Carbon Dioxide Anion Gap BUN Creatinine Estimated GFR POC Glucose 219 H Random Glucose Lactic Acid Calcium Phosphorus Magnesium Total Bilirubin AST ALT Alkaline Phosphatase Ammonia Total Protein Albumin Digoxin Microbiology 06/01/18 16:45 Blood - Peripheral Aerobic Blood Culture - Preliminary Staphylococcus coag negative 06/01/18 16:45 Blood - Peripheral Anaerobic Blood Culture - Preliminary No growth in 2 days 06/01/18 16:50 Blood - Peripheral Aerobic Blood Culture - Preliminary Staphylococcus coag negative 06/01/18 16:50 Blood - Peripheral Anaerobic Blood Culture - Preliminary No growth in 2 days 06/01/18 16:10 Catheterized Urine Urine Culture - Final - Imaging Impressions Chest X-Ray 06/03/18 06:00 CONCLUSION: Improving aeration <Edd Lindo E - Last Filed: 06/03/18 15:40> Assessment and Plan - Plan - BRBPR- last colonoscopy was more than a year ago, no signs of active bleed hh stable - COPD exacerbation and shortness of breath requiring O2 - cardiac stents on Xarelto Plan: - Advance diet - colonoscopy or flexible sigmoidoscopy at some point once stable respiratory patterson - No signs of active bleed 9.3 stable - monitor and transfuse as needed - Further recommendations shall depend on his hospital course - Pt seen and examined by Dr. Lindo and myself <Terry Dao - Last Filed: 06/03/18 10:16> - Plan Patient seen and examined Agree with above Continue with current supportive care Monitor labs <Edd Lindo E - Last Filed: 06/03/18 15:40>
[2018-06-03 10:26] LABS: Mean Corpuscular HGB Conc 29.2 % (32.0-36.0)
[2018-06-04] MEDS: MethylPREDNISolone Sod Succinate Inj 40 MG/ML Vial IV.PUSH SCH ×4 (01:58→20:46)
[2018-06-04] MEDS: Chlorhexidine Gluconate 2% 1 Pack (2 Cloths) TOPICAL SCH (03:31)
[2018-06-04 07:18] LABS: Calcium 8.6 mg/dL (8.5-10.1); Carbon Dioxide 36.1 meq/L (21.0-32.0); Magnesium 2.7 mg/dL (1.5-2.5); Phosphorus 4.5 mg/dL (2.5-4.9); Potassium 4.2 meq/L (3.5-5.1)
[2018-06-04] MEDS: Torsemide 20 MG Tablet PO SCH (08:39)
[2018-06-04] MEDS: Pantoprazole Inj 40 MG Vial IV.PUSH SCH ×2 (08:39→20:48)
[2018-06-04] MEDS: Azithromycin 250 MG Tablet PO SCH (08:39)
[2018-06-04] MEDS: Metoprolol Tartrate 100 MG Tablet PO SCH ×2 (08:39→20:47)
[2018-06-04] MEDS: Calcium Acetate 667 MG Capsule PO SCH ×3 (08:40→18:11)
[2018-06-04] MEDS: Senna/Docusate Sodium 8.6/50 MG Tablet PO SCH ×2 (08:40→20:48)
[2018-06-04] MEDS: Ferrous Sulfate 325 MG Tablet PO SCH ×2 (08:40→20:46)
[2018-06-04] MEDS: Digoxin 250 MCG Tablet PO SCH (08:40)
[2018-06-04] MEDS: acetaZOLAMIDE 250 MG TABLET PO SCH ×2 (08:40→20:46)
[2018-06-04] MEDS: Potassium Chloride 25 MEQ Effervescent Tablet PO SCH (08:41)
[2018-06-04] MEDS: Insulin NovoLOG Aspart Correctional Sugar Inj SQ SCH ×4 (08:41→20:47)
[2018-06-04] MEDS: dilTIAZem CD 240 MG Capsule PO SCH (08:41)
[2018-06-04] MEDS: Budesonide-Formoterol 160/4.5 MCG 6 GM Inhaler INH SCH ×2 (08:42→20:48)
--- NOTE | 2018-06-04 08:59 | P.PNPL ---
Subjective Interval history: Patient is awake and alert on 2L oxygen with good sats. Afebrile. Physical Exam Vital signs: Vital Signs 06/03/18 09:00 06/03/18 09:31 06/03/18 10:00 Temperature Pulse Rate 96 H 92 H 87 Respiratory Rate 25 H 21 23 Blood Pressure 126/65 117/65 124/83 Pulse Oximetry 97 98 100 06/03/18 10:30 06/03/18 11:00 06/03/18 11:01 Temperature 97.7 F Pulse Rate 83 80 79 Respiratory Rate 29 H 18 16 Blood Pressure 132/75 113/74 Pulse Oximetry 99 98 96 06/03/18 11:30 06/03/18 11:49 06/03/18 12:00 Temperature 97.7 F Pulse Rate 76 78 74 Respiratory Rate 34 H 16 18 Blood Pressure 104/61 111/70 Pulse Oximetry 97 97 06/03/18 12:30 06/03/18 13:00 06/03/18 13:31 Temperature Pulse Rate 76 79 82 Respiratory Rate 21 23 26 H Blood Pressure 116/69 114/61 105/57 L Pulse Oximetry 98 87 L 99 06/03/18 14:00 06/03/18 14:30 06/03/18 15:00 Temperature Pulse Rate 77 76 77 Respiratory Rate 19 20 17 Blood Pressure 120/64 123/66 119/67 Pulse Oximetry 100 100 99 06/03/18 15:19 06/03/18 15:30 06/03/18 16:00 Temperature Pulse Rate 77 76 79 Respiratory Rate 20 21 33 H Blood Pressure 129/71 Pulse Oximetry 100 97 06/03/18 16:01 06/03/18 16:31 06/03/18 17:00 Temperature 99.1 F Pulse Rate 79 81 81 Respiratory Rate 25 H 23 25 H Blood Pressure 122/63 112/56 L Pulse Oximetry 97 96 97 06/03/18 17:01 06/03/18 17:31 06/03/18 18:00 Temperature Pulse Rate 81 84 86 Respiratory Rate 19 25 H 30 H Blood Pressure 100/56 L 93/65 L 108/64 Pulse Oximetry 99 80 L 93 L 06/03/18 18:30 06/03/18 19:00 06/03/18 19:01 Temperature Pulse Rate 81 82 81 Respiratory Rate 25 H 20 20 Blood Pressure 106/69 124/66 Pulse Oximetry 96 99 99 06/03/18 19:31 06/03/18 19:56 06/03/18 20:00 Temperature 98.2 F Pulse Rate 80 81 81 Respiratory Rate 16 20 22 Blood Pressure 122/61 Pulse Oximetry 96 96 95 06/03/18 20:01 06/03/18 20:31 06/03/18 21:00 Temperature Pulse Rate 82 85 86 Respiratory Rate 24 18 19 Blood Pressure 133/88 122/62 120/66 Pulse Oximetry 96 98 98 06/03/18 21:31 06/03/18 22:00 06/03/18 22:01 Temperature Pulse Rate 86 86 84 Respiratory Rate 19 23 19 Blood Pressure 125/65 113/65 Pulse Oximetry 96 93 L 94 L 06/03/18 22:30 06/03/18 23:00 06/03/18 23:01 Temperature Pulse Rate 81 81 83 Respiratory Rate 25 H 30 H 27 H Blood Pressure 124/56 L 116/82 Pulse Oximetry 95 94 L 95 06/03/18 23:31 06/03/18 23:48 06/04/18 00:00 Temperature 99.6 F Pulse Rate 78 82 80 Respiratory Rate 16 24 18 Blood Pressure 111/58 L 118/60 Pulse Oximetry 94 L 93 L 06/04/18 00:11 06/04/18 00:30 06/04/18 01:00 Temperature Pulse Rate 78 74 Respiratory Rate 16 14 Blood Pressure 129/70 113/61 Pulse Oximetry 96 92 L 90 L 06/04/18 01:30 06/04/18 02:00 06/04/18 02:30 Temperature Pulse Rate 81 79 80 Respiratory Rate 13 16 14 Blood Pressure 119/73 123/71 130/71 Pulse Oximetry 73 L 97 94 L 06/04/18 03:00 06/04/18 03:30 06/04/18 04:00 Temperature 98.9 F Pulse Rate 77 76 72 Respiratory Rate 13 14 14 Blood Pressure 126/71 126/79 118/65 Pulse Oximetry 86 L 91 L 92 L 06/04/18 04:29 06/04/18 04:31 06/04/18 05:00 Temperature Pulse Rate 79 81 79 Respiratory Rate 13 32 H 18 Blood Pressure 147/81 H Pulse Oximetry 98 98 82 L 06/04/18 05:01 06/04/18 05:31 06/04/18 06:00 Temperature Pulse Rate 82 84 84 Respiratory Rate 18 18 18 Blood Pressure 135/87 128/62 Pulse Oximetry 71 L 87 L 06/04/18 06:01 06/04/18 07:56 Temperature Pulse Rate 84 86 Respiratory Rate 23 20 Blood Pressure 125/80 Pulse Oximetry 99 Intake & Output 06/03/18 06/04/18 06/04/18 18:59 06:59 18:59 Intake Total 1100 / 1100 820 / 820 Output Total 1450 / 1450 450 / 450 Balance -350 / -350 370 / 370 Weight 170 kg Intake: IV 100 / 100 100 / 100 Maxipime Inj 1,000 MG In NS Inj 100 / 100 100 / 100 100 ML @ 200 mls/hr IV.SIG Q12H [facility] Rx#:[id number] Oral 1000 / 1000 720 / 720 Output: Urine 150 / 150 450 / 450 Urine Amount (Catheter) 1300 / 1300 Indwelling Urethral Catheter 1300 / 1300 - Constitutional no acute distress, morbidly obese - Routine HEENT Exam Head: Present: normocephalic, atraumatic Eye: Present: EOMI, PERRL, normal accommodation, conjunctivae pink ENT: Present: mucous membranes moist - Routine Neck Exam Present: supple, full ROM, trachea midline - Routine Respiratory Exam Present: CTA bilaterally - Routine Cardiovascular Exam Present: RRR, S1, S2 - Routine Abdominal Exam Present: soft, normoactive bowel sounds, distended - Routine Extremities Exam Present: edema, full ROM - Routine Skin Exam Present: intact, dry - Routine Neurological Exam Present: alert, oriented X3, CN II-XII intact - Routine Psychiatric Exam Present: normal affect - Urinary Catheter Management Indwelling Urethral Catheter Cath placed during this visit: no Reason for continuing: Not indwelling catheter Assessment and Plan - Plan 1)Acute hypercapnic and hypoxemic resp insuff 2) DENIS/Morbid obesity 3)COPD- on 2L home oxygen 4)Anemia 5)Small loculated pleural effusion Plan Continue with oxygen keep sats >92% Bronchodilators( DuoNeb, Symbicort) Give Diamox 250mg IV x1 On Solumederol 40mg Q6 NIPPV PRN for resp distress CXR from 06/03: Improved aeration Continue with diuretics- On Bumex 1mg BID, Demadex 40mg daily Abx- On vanco/Cefepime- monitor for signs of infections ( Fever, WBC) GI/DVT prophylaxis- On Xarelto 10mg daily Continue treatment plan
[2018-06-04 10:30] LABS: Eos % (Auto) 0.6 % (0.0-4.0); Hematocrit 33.5 % (39.0-51.0); Hemoglobin 9.9 gm/dL (13.0-17.0); Lymph # (Auto) 0.1 th/mm3 (1.0-4.8); Lymph % (Auto) 3.2 % (9.0-44.0); Mean Corpuscular Hemoglobin 26.6 pg (27.0-34.0); Mean Corpuscular Volume 90.3 fL (80.0-100.0); Mean Platelet Volume 8.2 fL (7.0-11.0); Mono # (Auto) 0.1 th/mm3 (0.0-0.9); Mono % (Auto) 3.2 % (0.0-8.0); Neut # (Auto) 3.7 th/mm3 (1.8-7.7); Platelet Count 163 th/mm3 (150-450); Red Blood Count 3.71 mil/mm3 (4.50-5.90); Red Cell Distribution Width 22.1 % (11.6-17.2)
[2018-06-04 10:32] LABS: Mean Corpuscular HGB Conc 29.5 % (32.0-36.0)
--- NOTE | 2018-06-04 10:45 | P.PNGI ---
Subjective Interval history: Patient still remains in the intensive care setting Has exertional dyspnea to the point that he is not tolerating any increased activity i.e. a.m. care i.e. decreased sat to 83 but trending back up Still has generalized edema Awake answering simple questions, no obvious nausea vomiting or abdominal pain <ZuhairMarianela M - Last Filed: 06/04/18 10:45> Physical Exam Vital signs: Vital Signs 06/03/18 11:00 06/03/18 11:01 06/03/18 11:30 Temperature 97.7 F Pulse Rate 80 79 76 Respiratory Rate 18 16 34 H Blood Pressure 113/74 104/61 Pulse Oximetry 98 96 97 06/03/18 11:49 06/03/18 12:00 06/03/18 12:30 Temperature 97.7 F Pulse Rate 78 74 76 Respiratory Rate 16 18 21 Blood Pressure 111/70 116/69 Pulse Oximetry 97 98 06/03/18 13:00 06/03/18 13:31 06/03/18 14:00 Temperature Pulse Rate 79 82 77 Respiratory Rate 23 26 H 19 Blood Pressure 114/61 105/57 L 120/64 Pulse Oximetry 87 L 99 100 06/03/18 14:30 06/03/18 15:00 06/03/18 15:19 Temperature Pulse Rate 76 77 77 Respiratory Rate 20 17 20 Blood Pressure 123/66 119/67 Pulse Oximetry 100 99 06/03/18 15:30 06/03/18 16:00 06/03/18 16:01 Temperature 99.1 F Pulse Rate 76 79 79 Respiratory Rate 21 33 H 25 H Blood Pressure 129/71 122/63 Pulse Oximetry 100 97 97 06/03/18 16:31 06/03/18 17:00 06/03/18 17:01 Temperature Pulse Rate 81 81 81 Respiratory Rate 23 25 H 19 Blood Pressure 112/56 L 100/56 L Pulse Oximetry 96 97 99 06/03/18 17:31 06/03/18 18:00 06/03/18 18:30 Temperature Pulse Rate 84 86 81 Respiratory Rate 25 H 30 H 25 H Blood Pressure 93/65 L 108/64 106/69 Pulse Oximetry 80 L 93 L 96 06/03/18 19:00 06/03/18 19:01 06/03/18 19:31 Temperature Pulse Rate 82 81 80 Respiratory Rate 20 20 16 Blood Pressure 124/66 122/61 Pulse Oximetry 99 99 96 06/03/18 19:56 06/03/18 20:00 06/03/18 20:01 Temperature 98.2 F Pulse Rate 81 81 82 Respiratory Rate 20 22 24 Blood Pressure 133/88 Pulse Oximetry 96 95 96 06/03/18 20:31 06/03/18 21:00 06/03/18 21:31 Temperature Pulse Rate 85 86 86 Respiratory Rate 18 19 19 Blood Pressure 122/62 120/66 125/65 Pulse Oximetry 98 98 96 06/03/18 22:00 06/03/18 22:01 06/03/18 22:30 Temperature Pulse Rate 86 84 81 Respiratory Rate 23 19 25 H Blood Pressure 113/65 124/56 L Pulse Oximetry 93 L 94 L 95 06/03/18 23:00 06/03/18 23:01 06/03/18 23:31 Temperature Pulse Rate 81 83 78 Respiratory Rate 30 H 27 H 16 Blood Pressure 116/82 111/58 L Pulse Oximetry 94 L 95 94 L 06/03/18 23:48 06/04/18 00:00 06/04/18 00:11 Temperature 99.6 F Pulse Rate 82 80 Respiratory Rate 24 18 Blood Pressure 118/60 Pulse Oximetry 93 L 96 06/04/18 00:30 06/04/18 01:00 06/04/18 01:30 Temperature Pulse Rate 78 74 81 Respiratory Rate 16 14 13 Blood Pressure 129/70 113/61 119/73 Pulse Oximetry 92 L 90 L 73 L 06/04/18 02:00 06/04/18 02:30 06/04/18 03:00 Temperature Pulse Rate 79 80 77 Respiratory Rate 16 14 13 Blood Pressure 123/71 130/71 126/71 Pulse Oximetry 97 94 L 86 L 06/04/18 03:30 06/04/18 04:00 06/04/18 04:29 Temperature 98.9 F Pulse Rate 76 72 79 Respiratory Rate 14 14 13 Blood Pressure 126/79 118/65 Pulse Oximetry 91 L 92 L 98 06/04/18 04:31 06/04/18 05:00 06/04/18 05:01 Temperature Pulse Rate 81 79 82 Respiratory Rate 32 H 18 18 Blood Pressure 147/81 H 135/87 Pulse Oximetry 98 82 L 71 L 06/04/18 05:31 06/04/18 06:00 06/04/18 06:01 Temperature Pulse Rate 84 84 84 Respiratory Rate 18 18 23 Blood Pressure 128/62 125/80 Pulse Oximetry 87 L 06/04/18 07:56 Temperature Pulse Rate 86 Respiratory Rate 20 Blood Pressure Pulse Oximetry 99 Intake & Output 06/03/18 06/04/18 06/04/18 18:59 06:59 18:59 Intake Total 1100 / 1100 820 / 820 Output Total 1450 / 1450 450 / 450 Balance -350 / -350 370 / 370 Weight 170 kg Intake: IV 100 / 100 100 / 100 Maxipime Inj 1,000 MG In NS Inj 100 / 100 100 / 100 100 ML @ 200 mls/hr IV.SIG Q12H [facility] Rx#:[id number] Oral 1000 / 1000 720 / 720 Output: Urine 150 / 150 450 / 450 Urine Amount (Catheter) 1300 / 1300 Indwelling Urethral Catheter 1300 / 1300 - Constitutional moderate distress, morbidly obese, disheveled - Routine HEENT Exam Head: Present: normocephalic ENT: Present: mucous membranes moist - Routine Respiratory Exam Present: distant breath sounds, diminished air movement - Routine Cardiovascular Exam Present: S1, S2 (Distant) - Routine Abdominal Exam Present: distended (Active bowel sounds no abdominal tenderness or pain, taut, ) - Urinary Catheter Management Indwelling Urethral Catheter Cath placed during this visit: no Reason for continuing: Not indwelling catheter <Marianela Moffett - Last Filed: 06/04/18 10:45> Vital signs: Vital Signs 06/03/18 13:00 06/03/18 13:31 06/03/18 14:00 Temperature Pulse Rate 79 82 77 Respiratory Rate 23 26 H 19 Blood Pressure 114/61 105/57 L 120/64 Pulse Oximetry 87 L 99 100 06/03/18 14:30 06/03/18 15:00 06/03/18 15:19 Temperature Pulse Rate 76 77 77 Respiratory Rate 20 17 20 Blood Pressure 123/66 119/67 Pulse Oximetry 100 99 06/03/18 15:30 06/03/18 16:00 06/03/18 16:01 Temperature 99.1 F Pulse Rate 76 79 79 Respiratory Rate 21 33 H 25 H Blood Pressure 129/71 122/63 Pulse Oximetry 100 97 97 06/03/18 16:31 06/03/18 17:00 06/03/18 17:01 Temperature Pulse Rate 81 81 81 Respiratory Rate 23 25 H 19 Blood Pressure 112/56 L 100/56 L Pulse Oximetry 96 97 99 06/03/18 17:31 06/03/18 18:00 06/03/18 18:30 Temperature Pulse Rate 84 86 81 Respiratory Rate 25 H 30 H 25 H Blood Pressure 93/65 L 108/64 106/69 Pulse Oximetry 80 L 93 L 96 06/03/18 19:00 06/03/18 19:01 06/03/18 19:31 Temperature Pulse Rate 82 81 80 Respiratory Rate 20 20 16 Blood Pressure 124/66 122/61 Pulse Oximetry 99 99 96 06/03/18 19:56 06/03/18 20:00 06/03/18 20:01 Temperature 98.2 F Pulse Rate 81 81 82 Respiratory Rate 20 22 24 Blood Pressure 133/88 Pulse Oximetry 96 95 96 06/03/18 20:31 06/03/18 21:00 06/03/18 21:31 Temperature Pulse Rate 85 86 86 Respiratory Rate 18 19 19 Blood Pressure 122/62 120/66 125/65 Pulse Oximetry 98 98 96 06/03/18 22:00 06/03/18 22:01 06/03/18 22:30 Temperature Pulse Rate 86 84 81 Respiratory Rate 23 19 25 H Blood Pressure 113/65 124/56 L Pulse Oximetry 93 L 94 L 95 06/03/18 23:00 06/03/18 23:01 06/03/18 23:31 Temperature Pulse Rate 81 83 78 Respiratory Rate 30 H 27 H 16 Blood Pressure 116/82 111/58 L Pulse Oximetry 94 L 95 94 L 06/03/18 23:48 06/04/18 00:00 06/04/18 00:11 Temperature 99.6 F Pulse Rate 82 80 Respiratory Rate 24 18 Blood Pressure 118/60 Pulse Oximetry 93 L 96 06/04/18 00:30 06/04/18 01:00 06/04/18 01:30 Temperature Pulse Rate 78 74 81 Respiratory Rate 16 14 13 Blood Pressure 129/70 113/61 119/73 Pulse Oximetry 92 L 90 L 73 L 06/04/18 02:00 06/04/18 02:30 06/04/18 03:00 Temperature Pulse Rate 79 80 77 Respiratory Rate 16 14 13 Blood Pressure 123/71 130/71 126/71 Pulse Oximetry 97 94 L 86 L 06/04/18 03:30 06/04/18 04:00 06/04/18 04:29 Temperature 98.9 F Pulse Rate 76 72 79 Respiratory Rate 14 14 13 Blood Pressure 126/79 118/65 Pulse Oximetry 91 L 92 L 98 06/04/18 04:31 06/04/18 05:00 06/04/18 05:01 Temperature Pulse Rate 81 79 82 Respiratory Rate 32 H 18 18 Blood Pressure 147/81 H 135/87 Pulse Oximetry 98 82 L 71 L 06/04/18 05:31 06/04/18 06:00 06/04/18 06:01 Temperature Pulse Rate 84 84 84 Respiratory Rate 18 18 23 Blood Pressure 128/62 125/80 Pulse Oximetry 87 L 06/04/18 07:56 06/04/18 08:00 06/04/18 09:00 Temperature Pulse Rate 86 86 100 H Respiratory Rate 20 Blood Pressure Pulse Oximetry 99 94 L 06/04/18 09:01 06/04/18 09:31 06/04/18 10:00 Temperature 97.2 F L Pulse Rate 98 H 93 H 93 H Respiratory Rate 28 H 27 H 20 Blood Pressure 102/51 L 96/71 L 107/59 L Pulse Oximetry 90 L 88 L 93 L 06/04/18 10:01 06/04/18 10:30 06/04/18 11:00 Temperature Pulse Rate 94 H 88 91 H Respiratory Rate 8 L 20 30 H Blood Pressure 107/59 L 108/66 Pulse Oximetry 88 L 90 L 89 L 06/04/18 11:01 06/04/18 11:09 Temperature Pulse Rate 92 H 90 Respiratory Rate 27 H 20 Blood Pressure 115/63 Pulse Oximetry 89 L Intake & Output 06/03/18 06/04/18 06/04/18 18:59 06:59 18:59 Intake Total 1100 / 1100 820 / 820 Output Total 1450 / 1450 450 / 450 Balance -350 / -350 370 / 370 Weight 170 kg Intake: IV 100 / 100 100 / 100 Maxipime Inj 1,000 MG In NS Inj 100 / 100 100 / 100 100 ML @ 200 mls/hr IV.SIG Q12H [facility] Rx#:[id number] Oral 1000 / 1000 720 / 720 Output: Urine 150 / 150 450 / 450 Urine Amount (Catheter) 1300 / 1300 Indwelling Urethral Catheter 1300 / 1300 Other: Date of Last Bowel Movement 06/02/18 - Urinary Catheter Management Indwelling Urethral Catheter Cath placed during this visit: no <Edd Lindo E - Last Filed: 06/04/18 12:32> Results - Labs CBC & Chem 7: 06/04/18 09:49 06/04/18 06:16 Laboratory Results - last 24 hr 06/03/18 06/03/18 06/03/18 11:30 16:22 20:57 WBC RBC Hgb Hct MCV MCH MCHC RDW Plt Count MPV Neut % (Auto) Lymph % (Auto) [place] % (Auto) Eos % (Auto) Baso % (Auto) Neut # (Auto) Lymph # (Auto) [place] # (Auto) Eos # (Auto) Baso # (Auto) WBC Differential Differential Comment Sodium Potassium Chloride Carbon Dioxide Anion Gap BUN Creatinine Estimated GFR POC Glucose 219 H 214 H 172 H Random Glucose Calcium Phosphorus Magnesium Random Vancomycin 06/04/18 06/04/18 06/04/18 06:16 08:17 09:49 WBC 4.0 RBC 3.71 L Hgb 9.9 L Hct 33.5 L MCV 90.3 MCH 26.6 L MCHC 29.5 L RDW 22.1 H Plt Count 163 MPV 8.2 Neut % (Auto) 93.0 H Lymph % (Auto) 3.2 L [place] % (Auto) 3.2 Eos % (Auto) 0.6 Baso % (Auto) 0.0 Neut # (Auto) 3.7 Lymph # (Auto) 0.1 L [place] # (Auto) 0.1 Eos # (Auto) 0.0 Baso # (Auto) 0.0 WBC Differential . Differential Comment Auto diff final Sodium 144 Potassium 4.2 Chloride 101 Carbon Dioxide 36.1 H Anion Gap 7 BUN 79 H Creatinine 1.67 H Estimated GFR 42 L POC Glucose 167 H Random Glucose 140 H Calcium 8.6 Phosphorus 4.5 Magnesium 2.7 H Random Vancomycin 11.0 Microbiology 06/01/18 16:50 Blood - Peripheral Aerobic Blood Culture - Preliminary Staphylococcus coag negative 06/01/18 16:50 Blood - Peripheral Anaerobic Blood Culture - Preliminary No growth in 2 days 06/01/18 16:45 Blood - Peripheral Aerobic Blood Culture - Final Staphylococcus epidermidis 06/01/18 16:45 Blood - Peripheral Anaerobic Blood Culture - Preliminary No growth in 2 days <Marianela Moffett - Last Filed: 06/04/18 10:45> - Labs CBC & Chem 7: 06/04/18 09:49 06/04/18 06:16 Laboratory Results - last 24 hr 06/03/18 06/03/18 06/04/18 16:22 20:57 06:16 WBC RBC Hgb Hct MCV MCH MCHC RDW Plt Count MPV Neut % (Auto) Lymph % (Auto) [place] % (Auto) Eos % (Auto) Baso % (Auto) Neut # (Auto) Lymph # (Auto) [place] # (Auto) Eos # (Auto) Baso # (Auto) WBC Differential Differential Comment Sodium 144 Potassium 4.2 Chloride 101 Carbon Dioxide 36.1 H Anion Gap 7 BUN 79 H Creatinine 1.67 H Estimated GFR 42 L POC Glucose 214 H 172 H Random Glucose 140 H Calcium 8.6 Phosphorus 4.5 Magnesium 2.7 H Random Vancomycin 11.0 06/04/18 06/04/18 06/04/18 08:17 09:49 12:05 WBC 4.0 RBC 3.71 L Hgb 9.9 L Hct 33.5 L MCV 90.3 MCH 26.6 L MCHC 29.5 L RDW 22.1 H Plt Count 163 MPV 8.2 Neut % (Auto) 93.0 H Lymph % (Auto) 3.2 L [place] % (Auto) 3.2 Eos % (Auto) 0.6 Baso % (Auto) 0.0 Neut # (Auto) 3.7 Lymph # (Auto) 0.1 L [place] # (Auto) 0.1 Eos # (Auto) 0.0 Baso # (Auto) 0.0 WBC Differential . Differential Comment Auto diff final Sodium Potassium Chloride Carbon Dioxide Anion Gap BUN Creatinine Estimated GFR POC Glucose 167 H 184 H Random Glucose Calcium Phosphorus Magnesium Random Vancomycin Microbiology 06/01/18 16:45 Blood - Peripheral Aerobic Blood Culture - Final Staphylococcus epidermidis 06/01/18 16:45 Blood - Peripheral Anaerobic Blood Culture - Preliminary No growth in 3 days 06/01/18 16:50 Blood - Peripheral Aerobic Blood Culture - Preliminary Staphylococcus coag negative 06/01/18 16:50 Blood - Peripheral Anaerobic Blood Culture - Preliminary No growth in 3 days <Edd Lindo - Last Filed: 06/04/18 12:32> Assessment and Plan - Plan 06/03/2018 - [facility]- last colonoscopy was more than a year ago, no signs of active bleed hh stable - COPD exacerbation and shortness of breath requiring O2 - cardiac stents on Xarelto 06/04/2018, patient remains in the intensive care setting, still has generalized edema in extremities and abdomen. Hemoglobin stable at 9.9, PT/INR 1.3, denies any acute nausea vomiting or abdominal pain. Patient still remains with some hypoxia with in the increased activity and his a.m. care this morning around 83 but was unable to slow his breathing down and get his sat back up at greater than 90. Needs to stabilize from a respiratory standpoint before any further GI procedures are performed. Will reevaluate in the a.m. but probably will be sometime next week. Plan: Diet, as tolerated PPI Monitor labs Colonoscopy versus flexible sigmoidoscopy, probable next week once respiratory status is stable Supportive care Continue to hold Xarelto Further recommendations to continue Patient was seen per myself and Dr. Lindo, note was written on his behalf <Marianela Moffett M - Last Filed: 06/04/18 10:45> - Plan Patient seen and examined Agree with above Continue current supportive care Monitor labs Probably will proceed with the scope on Thursday <Edd Lindo - Last Filed: 06/04/18 12:32>
[2018-06-04] MEDS ORDERED: Vancomycin Inj 2,500 MG in Sodium Chlor 0.9% Inj 500 ML IV.SIG ONE (11:00)
--- NOTE | 2018-06-04 18:25 | P.PNIM ---
Subjective Interval history: patient says he is feeling a little better. He says that his scale broke at home and was not working for a while, turns out it just need a battery. He denies any chest pain. Denies nausea or vomiting. Says it feels like going home in the next few days. Physical Exam Vital signs: Vital Signs 06/03/18 18:30 06/03/18 19:00 06/03/18 19:01 Temperature Pulse Rate 81 82 81 Respiratory Rate 25 H 20 20 Blood Pressure 106/69 124/66 Pulse Oximetry 96 99 99 06/03/18 19:31 06/03/18 19:56 06/03/18 20:00 Temperature 98.2 F Pulse Rate 80 81 81 Respiratory Rate 16 20 22 Blood Pressure 122/61 Pulse Oximetry 96 96 95 06/03/18 20:01 06/03/18 20:31 06/03/18 21:00 Temperature Pulse Rate 82 85 86 Respiratory Rate 24 18 19 Blood Pressure 133/88 122/62 120/66 Pulse Oximetry 96 98 98 06/03/18 21:31 06/03/18 22:00 06/03/18 22:01 Temperature Pulse Rate 86 86 84 Respiratory Rate 19 23 19 Blood Pressure 125/65 113/65 Pulse Oximetry 96 93 L 94 L 06/03/18 22:30 06/03/18 23:00 06/03/18 23:01 Temperature Pulse Rate 81 81 83 Respiratory Rate 25 H 30 H 27 H Blood Pressure 124/56 L 116/82 Pulse Oximetry 95 94 L 95 06/03/18 23:31 06/03/18 23:48 06/04/18 00:00 Temperature 99.6 F Pulse Rate 78 82 80 Respiratory Rate 16 24 18 Blood Pressure 111/58 L 118/60 Pulse Oximetry 94 L 93 L 06/04/18 00:11 06/04/18 00:30 06/04/18 01:00 Temperature Pulse Rate 78 74 Respiratory Rate 16 14 Blood Pressure 129/70 113/61 Pulse Oximetry 96 92 L 90 L 06/04/18 01:30 06/04/18 02:00 06/04/18 02:30 Temperature Pulse Rate 81 79 80 Respiratory Rate 13 16 14 Blood Pressure 119/73 123/71 130/71 Pulse Oximetry 73 L 97 94 L 06/04/18 03:00 06/04/18 03:30 06/04/18 04:00 Temperature 98.9 F Pulse Rate 77 76 72 Respiratory Rate 13 14 14 Blood Pressure 126/71 126/79 118/65 Pulse Oximetry 86 L 91 L 92 L 06/04/18 04:29 06/04/18 04:31 06/04/18 05:00 Temperature Pulse Rate 79 81 79 Respiratory Rate 13 32 H 18 Blood Pressure 147/81 H Pulse Oximetry 98 98 82 L 06/04/18 05:01 06/04/18 05:31 06/04/18 06:00 Temperature Pulse Rate 82 84 84 Respiratory Rate 18 18 18 Blood Pressure 135/87 128/62 Pulse Oximetry 71 L 87 L 06/04/18 06:01 06/04/18 07:56 06/04/18 08:00 Temperature Pulse Rate 84 86 86 Respiratory Rate 23 20 Blood Pressure 125/80 Pulse Oximetry 99 94 L 06/04/18 09:00 06/04/18 09:01 06/04/18 09:31 Temperature 97.2 F L Pulse Rate 100 H 98 H 93 H Respiratory Rate 28 H 27 H Blood Pressure 102/51 L 96/71 L Pulse Oximetry 90 L 88 L 06/04/18 10:00 06/04/18 10:01 06/04/18 10:30 Temperature Pulse Rate 93 H 94 H 88 Respiratory Rate 20 8 L 20 Blood Pressure 107/59 L 107/59 L 108/66 Pulse Oximetry 93 L 88 L 90 L 06/04/18 11:00 06/04/18 11:01 06/04/18 11:09 Temperature Pulse Rate 91 H 92 H 90 Respiratory Rate 30 H 27 H 20 Blood Pressure 115/63 Pulse Oximetry 89 L 89 L 06/04/18 12:01 06/04/18 12:28 06/04/18 13:00 Temperature 97.8 F Pulse Rate 85 78 73 Respiratory Rate 24 22 17 Blood Pressure 122/58 L 122/58 L 148/72 H Pulse Oximetry 98 99 88 L 06/04/18 13:01 06/04/18 14:00 06/04/18 14:30 Temperature Pulse Rate 74 80 77 Respiratory Rate 14 20 17 Blood Pressure 148/72 H 112/58 L 106/63 Pulse Oximetry 85 L 94 L 06/04/18 15:00 06/04/18 15:01 Temperature Pulse Rate 79 77 Respiratory Rate 28 H 20 Blood Pressure 102/57 L Pulse Oximetry 93 L 93 L Intake & Output 06/03/18 06/04/18 06/04/18 18:59 06:59 18:59 Intake Total 1100 / 1100 820 / 820 135 / 135 Output Total 1450 / 1450 450 / 450 Balance -350 / -350 370 / 370 135 / 135 Weight 170 kg Intake: IV 100 / 100 100 / 100 135 / 135 Maxipime Inj 1,000 MG In NS Inj 100 / 100 100 / 100 100 / 100 100 ML @ 200 mls/hr IV.SIG Q12H [facility] Rx#:[id number] Vancomycin Inj 2,500 MG In NS 35 / 35 Inj 500 ML @ 250 mls/hr IV.SIG ONCE ONE Rx#:[id number] Oral 1000 / 1000 720 / 720 Output: Urine 150 / 150 450 / 450 Urine Amount (Catheter) 1300 / 1300 Indwelling Urethral Catheter 1300 / 1300 Other: Date of Last Bowel Movement 06/02/18 Narrative: GENERAL: patient sitting up in bed. Appears comfortable. SKIN: Warm and dry. HEAD: Normocephalic. EYES: No scleral icterus. No injection or drainage. NECK: Supple, trachea midline. No JVD. CARDIOVASCULAR: Regular rate and rhythm without murmurs, gallops, or rubs. RESPIRATORY: Breath sounds equal bilaterally.distant breath sounds secondary to body habitus. No accessory muscle use. GASTROINTESTINAL: Abdomen soft, non-tender, nondistended. MUSCULOSKELETAL: No cyanosis,. +2 peripheral edema. BACK: Nontender without obvious deformity. No CVA tenderness. - Urinary Catheter Management Indwelling Urethral Catheter Cath placed during this visit: no Reason for continuing: Not indwelling catheter Results - Labs CBC & Chem 7: 06/04/18 09:49 06/04/18 06:16 Laboratory Results - last 24 hr 06/03/18 06/04/18 06/04/18 20:57 06:16 08:17 WBC RBC Hgb Hct MCV MCH MCHC RDW Plt Count MPV Neut % (Auto) Lymph % (Auto) [place] % (Auto) Eos % (Auto) Baso % (Auto) Neut # (Auto) Lymph # (Auto) [place] # (Auto) Eos # (Auto) Baso # (Auto) WBC Differential Differential Comment Sodium 144 Potassium 4.2 Chloride 101 Carbon Dioxide 36.1 H Anion Gap 7 BUN 79 H Creatinine 1.67 H Estimated GFR 42 L POC Glucose 172 H 167 H Random Glucose 140 H Calcium 8.6 Phosphorus 4.5 Magnesium 2.7 H Random Vancomycin 11.0 06/04/18 06/04/18 06/04/18 09:49 12:05 17:22 WBC 4.0 RBC 3.71 L Hgb 9.9 L Hct 33.5 L MCV 90.3 MCH 26.6 L MCHC 29.5 L RDW 22.1 H Plt Count 163 MPV 8.2 Neut % (Auto) 93.0 H Lymph % (Auto) 3.2 L [place] % (Auto) 3.2 Eos % (Auto) 0.6 Baso % (Auto) 0.0 Neut # (Auto) 3.7 Lymph # (Auto) 0.1 L [place] # (Auto) 0.1 Eos # (Auto) 0.0 Baso # (Auto) 0.0 WBC Differential . Differential Comment Auto diff final Sodium Potassium Chloride Carbon Dioxide Anion Gap BUN Creatinine Estimated GFR POC Glucose 184 H 167 H Random Glucose Calcium Phosphorus Magnesium Random Vancomycin Microbiology 06/01/18 16:45 Blood - Peripheral Aerobic Blood Culture - Final Staphylococcus epidermidis 06/01/18 16:45 Blood - Peripheral Anaerobic Blood Culture - Preliminary No growth in 3 days 06/01/18 16:50 Blood - Peripheral Aerobic Blood Culture - Preliminary Staphylococcus coag negative 06/01/18 16:50 Blood - Peripheral Anaerobic Blood Culture - Preliminary No growth in 3 days Assessment and Plan - Plan Neuro/Psych: History of TIA Insomnia Melatonin 5 mg daily at half-way for insomnia. Acetaminophen 650 p.o. every 6 hours as needed fever CV: Atrial fibrillation -currently normal sinus rhythm Chronic diastolic heart failure ejection fraction 50-55% Essential hypertension Hyperlipidemia History of ablation [address] Page On atorvastatin 40 mg daily for dyslipidemia. On digoxin 0.25 mg daily. Check level/1.7/ Currently on diltiazem 240 mg daily, metoprolol tartrate 100 mg daily for essential hypertension Currently on bumetanide 1 mg twice daily, torsemide 40 mg daily and acetazolamide 125 mg twice daily Last 2D echocardiogram 12/30 revealed a 50-55%. Mild LVH. Resp: Acute hypoxic respiratory failure History of COPD/oxygen dependent Obstructive sleep apnea Currently budesonide/formoterol 160/4.5 2 puffs twice daily Albuterol/ipratropium aerosols every 4 hours with albuterol aerosols every 2 hours as needed for dyspnea As needed BiPAP Last PCO2 was 70 the patient appears comfortable at the present time. Dr. Reid is his primary automation tech We will need sleep studyas outpatient =06/04 respiratory status improving with treatment for CHF. Continue aggressive diuresis, have increased fluid restrictions to 1200 mL per day. Discussed with nursing. Patient will need daily weights at home. GI: Gastroesophageal reflux disease Elevated alkaline phosphatase On omeprazole 20 mg daily at home. Currently on pantoprazole 40 milligrams IV twice daily Clear liquid diet Docusate sodium/senna 1 tablet twice daily for bowel regimen GI consultation for lower GI bleed. Currently monitoring =06/04 hemoglobin stable. No EGD/colonoscopy for now. Appreciate GI assistance. : BPH Continue tamsulosin 0.4 mg daily Endo: Diabetes mellitus 1.5 treat is 1.0 Chronic prednisone use/10 mg daily Sliding scale insulin with aspart insulin before meals at bedtime to maintain euglycemia Holding home medications U100 Renal: Chronic kidney disease stage III a Monitor urine output Accurate I's and O's Creatinine appears close to baseline Heme: Chronic rivaroxaban use Holding Lorazepam in light of lower GI bleed/bright red blood per rectum Continue ferrous sulfate 325 mg by mouth twice daily ID: UTI Blood cultures 2 -1 out of 2 gram-positive cocci possibly contaminant. Await final results., UA no growth Influenza a and B- We will start on cefepime renally dosed see orders Started vancomycin yesterday due to gram-positive cocci in blood likely count. Follow-up FEN: History of hyperphosphatemia Replace electrolytes as clinically indicated Holding potassium chloride 20 mg daily/home medication Continue calcium acetate 667 mg 3 times daily MSK: Elevated BMI Weight loss encouraged Access -Utilize peripheral IV. Prophylaxis -GI -pantoprazole -DVT -SCD/holding pharmacological prophylaxis in light of acute lower GI bleed Level 2 follow-up. Patient stable from critical care standpoint. Assign care to hospitalist in a.m. 06/04. Discussed Condition With: patient, nurse. Discharge Planning: still very edematous. Hopefully discharge home with home health in the next 2- 3 days.
[2018-06-05] MEDS: MethylPREDNISolone Sod Succinate Inj 40 MG/ML Vial IV.PUSH SCH ×4 (03:10→20:23)
[2018-06-05] MEDS: Chlorhexidine Gluconate 2% 1 Pack (2 Cloths) TOPICAL SCH (06:04)
[2018-06-05 06:16] LABS: Baso % (Auto) 0.1 % (0.0-2.0); Eos % (Auto) 0.1 % (0.0-4.0); Hemoglobin 9.8 gm/dL (13.0-17.0); Lymph # (Auto) 0.1 th/mm3 (1.0-4.8); Lymph % (Auto) 2.7 % (9.0-44.0); Mean Corpuscular Hemoglobin 26.2 pg (27.0-34.0); Mean Corpuscular Volume 91.2 fL (80.0-100.0); Mean Platelet Volume 8.3 fL (7.0-11.0); Mono # (Auto) 0.1 th/mm3 (0.0-0.9); Mono % (Auto) 4.3 % (0.0-8.0); Neut % (Auto) 92.8 % (16.0-70.0); Platelet Count 165 th/mm3 (150-450); Red Blood Count 3.73 mil/mm3 (4.50-5.90); Red Cell Distribution Width 21.7 % (11.6-17.2); White Blood Count 3.2 th/mm3 (4.0-11.0)
[2018-06-05 06:22] LABS: Mean Corpuscular HGB Conc 28.7 % (32.0-36.0)
[2018-06-05 06:31] LABS: Albumin 3.6 g/dL (3.4-5.0); Calcium 8.3 mg/dL (8.5-10.1); Magnesium 2.7 mg/dL (1.5-2.5); Phosphorus 4.1 mg/dL (2.5-4.9); Potassium 3.9 meq/L (3.5-5.1)
[2018-06-05 07:29] LABS: Ovalocytes 1+; Platelet Estimate Normal (Normal); Platelet Morphology Normal (Normal)
[2018-06-05] MEDS: Potassium Chloride 25 MEQ Effervescent Tablet PO SCH (08:18)
[2018-06-05] MEDS: dilTIAZem CD 240 MG Capsule PO SCH (08:18)
[2018-06-05] MEDS: Calcium Acetate 667 MG Capsule PO SCH ×3 (08:19→17:18)
[2018-06-05] MEDS: acetaZOLAMIDE 250 MG TABLET PO SCH ×2 (08:20→20:21)
[2018-06-05] MEDS: Torsemide 20 MG Tablet PO SCH (08:20)
[2018-06-05] MEDS: Digoxin 250 MCG Tablet PO SCH (08:21)
[2018-06-05] MEDS: Metoprolol Tartrate 100 MG Tablet PO SCH ×2 (08:21→20:21)
[2018-06-05] MEDS: Ferrous Sulfate 325 MG Tablet PO SCH ×2 (08:21→20:21)
[2018-06-05] MEDS: Azithromycin 250 MG Tablet PO SCH (08:22)
[2018-06-05] MEDS: Budesonide-Formoterol 160/4.5 MCG 6 GM Inhaler INH SCH ×2 (08:22→20:23)
[2018-06-05] MEDS: Pantoprazole Inj 40 MG Vial IV.PUSH SCH ×2 (08:25→20:22)
[2018-06-05] MEDS: Senna/Docusate Sodium 8.6/50 MG Tablet PO SCH ×2 (08:26→20:22)
[2018-06-05] MEDS: Insulin NovoLOG Aspart Correctional Sugar Inj SQ SCH ×4 (08:33→20:22)
--- NOTE | 2018-06-05 09:05 | P.PNPL ---
Subjective Interval history: Patient is lying in bed in NAD. Afebrile. Off BIPAP Physical Exam Vital signs: Vital Signs 06/04/18 09:31 06/04/18 10:00 06/04/18 10:01 Temperature Pulse Rate 93 H 93 H 94 H Respiratory Rate 27 H 20 8 L Blood Pressure 96/71 L 107/59 L 107/59 L Pulse Oximetry 88 L 93 L 88 L 06/04/18 10:30 06/04/18 11:00 06/04/18 11:01 Temperature Pulse Rate 88 91 H 92 H Respiratory Rate 20 30 H 27 H Blood Pressure 108/66 115/63 Pulse Oximetry 90 L 89 L 89 L 06/04/18 11:09 06/04/18 12:01 06/04/18 12:28 Temperature 97.8 F Pulse Rate 90 85 78 Respiratory Rate 20 24 22 Blood Pressure 122/58 L 122/58 L Pulse Oximetry 98 99 06/04/18 13:00 06/04/18 13:01 06/04/18 14:00 Temperature Pulse Rate 73 74 80 Respiratory Rate 17 14 20 Blood Pressure 148/72 H 148/72 H 112/58 L Pulse Oximetry 88 L 85 L 94 L 06/04/18 14:30 06/04/18 15:00 06/04/18 15:01 Temperature Pulse Rate 77 79 77 Respiratory Rate 17 28 H 20 Blood Pressure 106/63 102/57 L Pulse Oximetry 93 L 93 L 06/04/18 16:00 06/04/18 16:31 06/04/18 17:00 Temperature 98.5 F Pulse Rate 78 84 80 Respiratory Rate 18 28 H 19 Blood Pressure 141/81 H 105/76 117/66 Pulse Oximetry 96 97 96 06/04/18 17:31 06/04/18 18:00 06/04/18 19:00 Temperature Pulse Rate 80 88 81 Respiratory Rate 23 38 H 22 Blood Pressure 145/64 H 135/67 128/81 Pulse Oximetry 97 87 L 93 L 06/04/18 20:00 06/04/18 20:17 06/04/18 21:00 Temperature Pulse Rate 78 81 Respiratory Rate 20 24 Blood Pressure 166/101 H 175/135 H Pulse Oximetry 98 94 L 94 L 06/04/18 22:00 06/04/18 23:00 06/05/18 00:00 Temperature 97.6 F Pulse Rate 75 73 71 Respiratory Rate 18 24 22 Blood Pressure 180/87 H 168/118 H 176/2 H Pulse Oximetry 89 L 94 L 98 06/05/18 00:04 06/05/18 00:17 06/05/18 01:00 Temperature Pulse Rate 74 72 Respiratory Rate 16 20 Blood Pressure 175/61 H Pulse Oximetry 97 100 06/05/18 02:00 06/05/18 03:00 06/05/18 03:47 Temperature Pulse Rate 78 75 75 Respiratory Rate 18 18 13 Blood Pressure 157/73 H 167/74 H Pulse Oximetry 98 98 98 06/05/18 04:00 06/05/18 05:00 06/05/18 06:00 Temperature 97.8 F Pulse Rate 77 80 77 Respiratory Rate 15 22 22 Blood Pressure 176/91 H 177/82 H 155/85 H Pulse Oximetry 95 95 95 06/05/18 07:07 Temperature Pulse Rate 77 Respiratory Rate 14 Blood Pressure Pulse Oximetry 93 L Intake & Output 06/04/18 06/05/18 06/05/18 18:59 06:59 18:59 Intake Total 1900 / 1900 580 / 580 Output Total 1300 / 1300 1000 / 1000 Balance 600 / 600 -420 / -420 Weight 169 kg Intake: IV 625 / 625 100 / 100 Maxipime Inj 1,000 MG In NS Inj 100 / 100 100 / 100 100 ML @ 200 mls/hr IV.SIG Q12H DOLLY Rx#:[id number] Vancomycin Inj 2,500 MG In NS 525 / 525 Inj 500 ML @ 250 mls/hr IV.SIG ONCE ONE Rx#:[id number] Oral 1275 / 1275 480 / 480 Output: Urine 1300 / 1300 1000 / 1000 Other: # Voids 8 4 # Incontinent Voids 2 2 Date of Last Bowel Movement 06/02/18 06/02/18 # Bowel Movements 0 0 - Constitutional no acute distress, morbidly obese - Routine HEENT Exam Head: Present: normocephalic, atraumatic Eye: Present: EOMI, PERRL, normal accommodation, conjunctivae pink ENT: Present: mucous membranes moist - Routine Neck Exam Present: supple, full ROM, trachea midline - Routine Respiratory Exam Present: CTA bilaterally - Routine Cardiovascular Exam Present: RRR, S1, S2 - Routine Abdominal Exam Present: soft, normoactive bowel sounds - Routine Extremities Exam Present: full ROM - Routine Skin Exam Present: intact, dry - Routine Neurological Exam Present: alert, oriented X3, CN II-XII intact - Routine Psychiatric Exam Present: normal affect - Urinary Catheter Management Indwelling Urethral Catheter Cath placed during this visit: no Reason for continuing: Not indwelling catheter Assessment and Plan - Plan 1)Acute hypercapnic and hypoxemic resp insuff 2) DENIS/Morbid obesity 3)COPD- on 2L home oxygen 4)Anemia 5)Small loculated pleural effusion Plan Continue with oxygen keep sats >92% Bronchodilators( DuoNeb, Symbicort) Give Diamox 500mg IV x1 Decrease Solumederol 40mg Q12 NIPPV PRN for resp distress CXR from 06/03: Improved aeration Continue with diuretics- On Bumex 1mg BID, Demadex 40mg daily Abx- On vanco/Cefepime- monitor for signs of infections ( Fever, WBC) GI/DVT prophylaxis- On Xarelto 10mg daily Continue treatment plan
--- NOTE | 2018-06-05 14:12 | P.PNGI ---
Subjective Interval history: Patient is resting in the bed seems to be feeling somewhat better every day Gradual decrease in edema and denies any nausea vomiting or abdominal pain <Marianela Moffett M - Last Filed: 06/05/18 14:34> Physical Exam Vital signs: Vital Signs 06/04/18 14:30 06/04/18 15:00 06/04/18 15:01 Temperature Pulse Rate 77 79 77 Respiratory Rate 17 28 H 20 Blood Pressure 106/63 102/57 L Pulse Oximetry 93 L 93 L 06/04/18 16:00 06/04/18 16:31 06/04/18 17:00 Temperature 98.5 F Pulse Rate 78 84 80 Respiratory Rate 18 28 H 19 Blood Pressure 141/81 H 105/76 117/66 Pulse Oximetry 96 97 96 06/04/18 17:31 06/04/18 18:00 06/04/18 19:00 Temperature Pulse Rate 80 88 81 Respiratory Rate 23 38 H 22 Blood Pressure 145/64 H 135/67 128/81 Pulse Oximetry 97 87 L 93 L 06/04/18 20:00 06/04/18 20:17 06/04/18 21:00 Temperature Pulse Rate 78 81 Respiratory Rate 20 24 Blood Pressure 166/101 H 175/135 H Pulse Oximetry 98 94 L 94 L 06/04/18 22:00 06/04/18 23:00 06/05/18 00:00 Temperature 97.6 F Pulse Rate 75 73 71 Respiratory Rate 18 24 22 Blood Pressure 180/87 H 168/118 H 176/2 H Pulse Oximetry 89 L 94 L 98 06/05/18 00:04 06/05/18 00:17 06/05/18 01:00 Temperature Pulse Rate 74 72 Respiratory Rate 16 20 Blood Pressure 175/61 H Pulse Oximetry 97 100 06/05/18 02:00 06/05/18 03:00 06/05/18 03:47 Temperature Pulse Rate 78 75 75 Respiratory Rate 18 18 13 Blood Pressure 157/73 H 167/74 H Pulse Oximetry 98 98 98 06/05/18 04:00 06/05/18 05:00 06/05/18 06:00 Temperature 97.8 F Pulse Rate 77 80 77 Respiratory Rate 15 22 22 Blood Pressure 176/91 H 177/82 H 155/85 H Pulse Oximetry 95 95 95 06/05/18 07:00 06/05/18 07:07 06/05/18 08:00 Temperature 98.7 F Pulse Rate 70 77 69 Respiratory Rate 18 14 18 Blood Pressure 133/77 128/68 Pulse Oximetry 95 93 L 96 06/05/18 09:00 06/05/18 10:00 06/05/18 10:59 Temperature Pulse Rate 70 69 75 Respiratory Rate 20 18 21 Blood Pressure 103/56 L 153/81 H Pulse Oximetry 95 96 06/05/18 11:00 06/05/18 12:00 06/05/18 13:00 Temperature Pulse Rate 74 68 65 Respiratory Rate 18 17 17 Blood Pressure 130/72 122/56 L 118/63 Pulse Oximetry 96 96 96 Intake & Output 06/04/18 06/05/18 06/05/18 18:59 06:59 18:59 Intake Total 1900 / 1900 580 / 580 100 / 100 Output Total 1300 / 1300 1000 / 1000 Balance 600 / 600 -420 / -420 100 / 100 Weight 169 kg Intake: IV 625 / 625 100 / 100 100 / 100 Maxipime Inj 1,000 MG In NS Inj 100 / 100 100 / 100 100 / 100 100 ML @ 200 mls/hr IV.SIG Q12H DOLLY Rx#:[id number] Vancomycin Inj 2,500 MG In NS 525 / 525 Inj 500 ML @ 250 mls/hr IV.SIG ONCE ONE Rx#:[id number] Oral 1275 / 1275 480 / 480 Output: Urine 1300 / 1300 1000 / 1000 Other: # Voids 8 4 # Incontinent Voids 2 2 Date of Last Bowel Movement 06/02/18 06/02/18 06/02/18 # Bowel Movements 0 0 - Constitutional mild distress (Continues with oxygen per nasal cannula), morbidly obese, chronically ill appearing - Routine HEENT Exam ENT: Present: mucous membranes moist - Routine Neck Exam Present: supple - Routine Respiratory Exam Present: accessory muscle use (Low volumes but no obvious wheezing or rhonchi and no shortness of breath at rest) - Routine Cardiovascular Exam Present: S1, S2 (Distant) - Routine Abdominal Exam Present: distended (Obtunded, obese, round, taut, ) - Routine Skin Exam Present: intact (Generalized core and lower extremity edema) - Routine Neurological Exam Present: alert - Urinary Catheter Management Indwelling Urethral Catheter Cath placed during this visit: no Reason for continuing: Not indwelling catheter <Marianela Moffett M - Last Filed: 06/05/18 14:34> Vital signs: Vital Signs 06/04/18 23:00 06/05/18 00:00 06/05/18 00:04 Temperature 97.6 F Pulse Rate 73 71 74 Respiratory Rate 24 22 16 Blood Pressure 168/118 H 176/2 H Pulse Oximetry 94 L 98 06/05/18 00:17 06/05/18 01:00 06/05/18 02:00 Temperature Pulse Rate 72 78 Respiratory Rate 20 18 Blood Pressure 175/61 H 157/73 H Pulse Oximetry 97 100 98 06/05/18 03:00 06/05/18 03:47 06/05/18 04:00 Temperature 97.8 F Pulse Rate 75 75 77 Respiratory Rate 18 13 15 Blood Pressure 167/74 H 176/91 H Pulse Oximetry 98 98 95 06/05/18 05:00 06/05/18 06:00 06/05/18 07:00 Temperature Pulse Rate 80 77 70 Respiratory Rate 22 22 18 Blood Pressure 177/82 H 155/85 H 133/77 Pulse Oximetry 95 95 95 06/05/18 07:07 06/05/18 08:00 06/05/18 09:00 Temperature 98.7 F Pulse Rate 77 69 70 Respiratory Rate 14 18 20 Blood Pressure 128/68 103/56 L Pulse Oximetry 93 L 96 95 06/05/18 10:00 06/05/18 10:59 06/05/18 11:00 Temperature Pulse Rate 69 75 74 Respiratory Rate 18 21 18 Blood Pressure 153/81 H 130/72 Pulse Oximetry 96 96 06/05/18 12:00 06/05/18 13:00 06/05/18 14:00 Temperature 98.4 F Pulse Rate 68 65 61 Respiratory Rate 17 17 18 Blood Pressure 122/56 L 118/63 114/69 Pulse Oximetry 96 96 97 06/05/18 14:59 06/05/18 15:00 06/05/18 16:00 Temperature Pulse Rate 63 66 67 Respiratory Rate 16 17 18 Blood Pressure 109/56 L 120/78 Pulse Oximetry 98 97 06/05/18 17:00 06/05/18 18:00 06/05/18 19:00 Temperature 98.5 F Pulse Rate 68 77 68 Respiratory Rate 18 17 18 Blood Pressure 96/61 L 95/58 L 103/82 Pulse Oximetry 96 97 97 06/05/18 19:29 06/05/18 19:43 06/05/18 20:00 Temperature 98.5 F Pulse Rate 69 71 Respiratory Rate 20 19 Blood Pressure 103/74 Pulse Oximetry 100 99 06/05/18 21:00 Temperature Pulse Rate 68 Respiratory Rate 19 Blood Pressure 146/83 H Pulse Oximetry 99 Intake & Output 06/05/18 06/05/18 06/06/18 06:59 18:59 06:59 Intake Total 580 / 580 580 / 580 100 / 100 Output Total 1000 / 1000 1250 / 1250 Balance -420 / -420 -670 / -670 100 / 100 Weight 169 kg Intake: IV 100 / 100 100 / 100 100 / 100 Maxipime Inj 1,000 MG In NS Inj 100 / 100 100 / 100 100 / 100 100 ML @ 200 mls/hr IV.SIG Q12H DOLLY Rx#:[id number] Oral 480 / 480 480 / 480 Output: Urine 1000 / 1000 1250 / 1250 Other: # Voids 4 # Incontinent Voids 2 Date of Last Bowel Movement 06/02/18 06/02/18 06/02/18 # Bowel Movements 0 0 - Urinary Catheter Management Indwelling Urethral Catheter Cath placed during this visit: no <Edd Lindo E - Last Filed: 06/05/18 22:13> Results - Labs CBC & Chem 7: 06/05/18 04:33 06/05/18 04:33 Laboratory Results - last 24 hr 06/04/18 06/04/18 06/05/18 17:22 20:20 04:33 WBC 3.2 L RBC 3.73 L Hgb 9.8 L Hct 34.0 L MCV 91.2 MCH 26.2 L MCHC 28.7 L RDW 21.7 H Plt Count 165 MPV 8.3 Prelim Diff (Auto) Slide review pending Neut % (Auto) 92.8 H Lymph % (Auto) 2.7 L [place] % (Auto) 4.3 Eos % (Auto) 0.1 Baso % (Auto) 0.1 Neut # (Auto) 3.0 Lymph # (Auto) 0.1 L [place] # (Auto) 0.1 Eos # (Auto) 0.0 Baso # (Auto) 0.0 WBC Differential . Diff Scan Auto diff confirmed Differential Comment . Platelet Estimate Normal Platelet Morphology Normal Ovalocytes 1+ H Sodium Potassium Chloride Carbon Dioxide Anion Gap BUN Creatinine Estimated GFR POC Glucose 167 H 180 H Random Glucose Calcium Phosphorus Magnesium Albumin 06/05/18 06/05/18 06/05/18 04:33 08:15 11:58 WBC RBC Hgb Hct MCV MCH MCHC RDW Plt Count MPV Prelim Diff (Auto) Neut % (Auto) Lymph % (Auto) [place] % (Auto) Eos % (Auto) Baso % (Auto) Neut # (Auto) Lymph # (Auto) [place] # (Auto) Eos # (Auto) Baso # (Auto) WBC Differential Diff Scan Differential Comment Platelet Estimate Platelet Morphology Ovalocytes Sodium 147 H Potassium 3.9 Chloride 101 Carbon Dioxide 36.0 H Anion Gap 10 BUN 82 H Creatinine 1.76 H Estimated GFR 39 L POC Glucose 149 H 171 H Random Glucose 138 H Calcium 8.3 L Phosphorus 4.1 Magnesium 2.7 H Albumin 3.6 Microbiology 06/01/18 16:45 Blood - Peripheral Aerobic Blood Culture - Final Staphylococcus epidermidis 06/01/18 16:45 Blood - Peripheral Anaerobic Blood Culture - Preliminary No growth in 4 days 06/01/18 16:50 Blood - Peripheral Aerobic Blood Culture - Final Staphylococcus auricularis 06/01/18 16:50 Blood - Peripheral Anaerobic Blood Culture - Preliminary No growth in 4 days <Marianela Moffett - Last Filed: 06/05/18 14:34> - Labs CBC & Chem 7: 06/05/18 04:33 06/05/18 04:33 Laboratory Results - last 24 hr 06/05/18 06/05/18 06/05/18 04:33 04:33 08:15 WBC 3.2 L RBC 3.73 L Hgb 9.8 L Hct 34.0 L MCV 91.2 MCH 26.2 L MCHC 28.7 L RDW 21.7 H Plt Count 165 MPV 8.3 Prelim Diff (Auto) Slide review pending Neut % (Auto) 92.8 H Lymph % (Auto) 2.7 L [place] % (Auto) 4.3 Eos % (Auto) 0.1 Baso % (Auto) 0.1 Neut # (Auto) 3.0 Lymph # (Auto) 0.1 L [place] # (Auto) 0.1 Eos # (Auto) 0.0 Baso # (Auto) 0.0 WBC Differential . Diff Scan Auto diff confirmed Differential Comment . Platelet Estimate Normal Platelet Morphology Normal Ovalocytes 1+ H Sodium 147 H Potassium 3.9 Chloride 101 Carbon Dioxide 36.0 H Anion Gap 10 BUN 82 H Creatinine 1.76 H Estimated GFR 39 L POC Glucose 149 H Random Glucose 138 H Calcium 8.3 L Phosphorus 4.1 Magnesium 2.7 H Albumin 3.6 06/05/18 06/05/18 06/05/18 11:58 17:13 20:11 WBC RBC Hgb Hct MCV MCH MCHC RDW Plt Count MPV Prelim Diff (Auto) Neut % (Auto) Lymph % (Auto) [place] % (Auto) Eos % (Auto) Baso % (Auto) Neut # (Auto) Lymph # (Auto) [place] # (Auto) Eos # (Auto) Baso # (Auto) WBC Differential Diff Scan Differential Comment Platelet Estimate Platelet Morphology Ovalocytes Sodium Potassium Chloride Carbon Dioxide Anion Gap BUN Creatinine Estimated GFR POC Glucose 171 H 200 H 183 H Random Glucose Calcium Phosphorus Magnesium Albumin Microbiology 06/01/18 16:45 Blood - Peripheral Aerobic Blood Culture - Final Staphylococcus epidermidis 06/01/18 16:45 Blood - Peripheral Anaerobic Blood Culture - Preliminary No growth in 4 days 06/01/18 16:50 Blood - Peripheral Aerobic Blood Culture - Final Staphylococcus auricularis 06/01/18 16:50 Blood - Peripheral Anaerobic Blood Culture - Preliminary No growth in 4 days <Edd Lindo - Last Filed: 06/05/18 22:13> Assessment and Plan - Plan 06/03/2018 - [facility]- last colonoscopy was more than a year ago, no signs of active bleed hh stable - COPD exacerbation and shortness of breath requiring O2 - cardiac stents on Xarelto 06/04/2018, patient remains in the intensive care setting, still has generalized edema in extremities and abdomen. Hemoglobin stable at 9.9, PT/INR 1.3, denies any acute nausea vomiting or abdominal pain. Patient still remains with some hypoxia with in the increased activity and his a.m. care this morning around 83 but was unable to slow his breathing down and get his sat back up at greater than 90. Needs to stabilize from a respiratory standpoint before any further GI procedures are performed. Will reevaluate in the a.m. but probably will be sometime next week. 06/05/2018 patient continues to show some gradual improvement, generalized edema improving and no obvious shortness of breath continues with nasal cannula at 5 L current hemoglobin 9.8 and stable no obvious bleeding. Xarelto remains on hold patient continues to show gradual improvement. We will plan colonoscopy for Thursday as long as patient remains stable. Plan: Diet, as tolerated Consent for colonoscopy Thursday a.m., will continue to evaluate patient's stability N.p.o. midnight Thursday night Clear liquid diet to begin tomorrow a.m. GoLYTELY prep, Thursday p.m. Check INR in am. PPI, steroids Monitor labs, any obvious bleeding Continue to hold Xarelto Further recommendations to continue Patient was seen per myself and Dr. Lindo, note was written on his behalf <Marianela Moffett M - Last Filed: 06/05/18 14:34> - Plan patient seen and examined agree with above continue current supportive care monitor labs Colonoscopy on Thursday <Edd Lindo - Last Filed: 06/05/18 22:13>
--- NOTE | 2018-06-05 15:57 | P.PNIM ---
Subjective Interval history: Says he is feeling a little better than yesterday. Denies any chest pain. Reports shortness of breath is improving. Denies any abdominal pain. Physical Exam Vital signs: Vital Signs 06/04/18 16:00 06/04/18 16:31 06/04/18 17:00 Temperature 98.5 F Pulse Rate 78 84 80 Respiratory Rate 18 28 H 19 Blood Pressure 141/81 H 105/76 117/66 Pulse Oximetry 96 97 96 06/04/18 17:31 06/04/18 18:00 06/04/18 19:00 Temperature Pulse Rate 80 88 81 Respiratory Rate 23 38 H 22 Blood Pressure 145/64 H 135/67 128/81 Pulse Oximetry 97 87 L 93 L 06/04/18 20:00 06/04/18 20:17 06/04/18 21:00 Temperature Pulse Rate 78 81 Respiratory Rate 20 24 Blood Pressure 166/101 H 175/135 H Pulse Oximetry 98 94 L 94 L 06/04/18 22:00 06/04/18 23:00 06/05/18 00:00 Temperature 97.6 F Pulse Rate 75 73 71 Respiratory Rate 18 24 22 Blood Pressure 180/87 H 168/118 H 176/2 H Pulse Oximetry 89 L 94 L 98 06/05/18 00:04 06/05/18 00:17 06/05/18 01:00 Temperature Pulse Rate 74 72 Respiratory Rate 16 20 Blood Pressure 175/61 H Pulse Oximetry 97 100 06/05/18 02:00 06/05/18 03:00 06/05/18 03:47 Temperature Pulse Rate 78 75 75 Respiratory Rate 18 18 13 Blood Pressure 157/73 H 167/74 H Pulse Oximetry 98 98 98 06/05/18 04:00 06/05/18 05:00 06/05/18 06:00 Temperature 97.8 F Pulse Rate 77 80 77 Respiratory Rate 15 22 22 Blood Pressure 176/91 H 177/82 H 155/85 H Pulse Oximetry 95 95 95 06/05/18 07:00 06/05/18 07:07 06/05/18 08:00 Temperature 98.7 F Pulse Rate 70 77 69 Respiratory Rate 18 14 18 Blood Pressure 133/77 128/68 Pulse Oximetry 95 93 L 96 06/05/18 09:00 06/05/18 10:00 06/05/18 10:59 Temperature Pulse Rate 70 69 75 Respiratory Rate 20 18 21 Blood Pressure 103/56 L 153/81 H Pulse Oximetry 95 96 06/05/18 11:00 06/05/18 12:00 06/05/18 13:00 Temperature Pulse Rate 74 68 65 Respiratory Rate 18 17 17 Blood Pressure 130/72 122/56 L 118/63 Pulse Oximetry 96 96 96 06/05/18 14:00 06/05/18 14:59 Temperature Pulse Rate 61 63 Respiratory Rate 18 16 Blood Pressure 114/69 Pulse Oximetry 97 Intake & Output 06/04/18 06/05/18 06/05/18 18:59 06:59 18:59 Intake Total 1900 / 1900 580 / 580 100 / 100 Output Total 1300 / 1300 1000 / 1000 Balance 600 / 600 -420 / -420 100 / 100 Weight 169 kg Intake: IV 625 / 625 100 / 100 100 / 100 Maxipime Inj 1,000 MG In NS Inj 100 / 100 100 / 100 100 / 100 100 ML @ 200 mls/hr IV.SIG Q12H DOLLY Rx#:[id number] Vancomycin Inj 2,500 MG In NS 525 / 525 Inj 500 ML @ 250 mls/hr IV.SIG ONCE ONE Rx#:[id number] Oral 1275 / 1275 480 / 480 Output: Urine 1300 / 1300 1000 / 1000 Other: # Voids 8 4 # Incontinent Voids 2 2 Date of Last Bowel Movement 06/02/18 06/02/18 06/02/18 # Bowel Movements 0 0 Narrative: GENERAL: patient sitting up in bed. Appears comfortable. SKIN: Warm and dry. HEAD: Normocephalic. EYES: No scleral icterus. No injection or drainage. NECK: Supple, trachea midline. No JVD. CARDIOVASCULAR: Regular rate and rhythm without murmurs, gallops, or rubs. RESPIRATORY: Breath sounds equal bilaterally.distant breath sounds secondary to body habitus. No accessory muscle use. GASTROINTESTINAL: Abdomen soft, non-tender, nondistended. MUSCULOSKELETAL: No cyanosis,. +2 peripheral edema, very slightly improved with no weeping today. BACK: Nontender without obvious deformity. No CVA tenderness. - Urinary Catheter Management Indwelling Urethral Catheter Cath placed during this visit: no Reason for continuing: Not indwelling catheter Results - Labs CBC & Chem 7: 06/05/18 04:33 06/05/18 04:33 Laboratory Results - last 24 hr 06/04/18 06/04/18 06/05/18 17:22 20:20 04:33 WBC 3.2 L RBC 3.73 L Hgb 9.8 L Hct 34.0 L MCV 91.2 MCH 26.2 L MCHC 28.7 L RDW 21.7 H Plt Count 165 MPV 8.3 Prelim Diff (Auto) Slide review pending Neut % (Auto) 92.8 H Lymph % (Auto) 2.7 L [place] % (Auto) 4.3 Eos % (Auto) 0.1 Baso % (Auto) 0.1 Neut # (Auto) 3.0 Lymph # (Auto) 0.1 L [place] # (Auto) 0.1 Eos # (Auto) 0.0 Baso # (Auto) 0.0 WBC Differential . Diff Scan Auto diff confirmed Differential Comment . Platelet Estimate Normal Platelet Morphology Normal Ovalocytes 1+ H Sodium Potassium Chloride Carbon Dioxide Anion Gap BUN Creatinine Estimated GFR POC Glucose 167 H 180 H Random Glucose Calcium Phosphorus Magnesium Albumin 06/05/18 06/05/18 06/05/18 04:33 08:15 11:58 WBC RBC Hgb Hct MCV MCH MCHC RDW Plt Count MPV Prelim Diff (Auto) Neut % (Auto) Lymph % (Auto) [place] % (Auto) Eos % (Auto) Baso % (Auto) Neut # (Auto) Lymph # (Auto) [place] # (Auto) Eos # (Auto) Baso # (Auto) WBC Differential Diff Scan Differential Comment Platelet Estimate Platelet Morphology Ovalocytes Sodium 147 H Potassium 3.9 Chloride 101 Carbon Dioxide 36.0 H Anion Gap 10 BUN 82 H Creatinine 1.76 H Estimated GFR 39 L POC Glucose 149 H 171 H Random Glucose 138 H Calcium 8.3 L Phosphorus 4.1 Magnesium 2.7 H Albumin 3.6 Microbiology 06/01/18 16:45 Blood - Peripheral Aerobic Blood Culture - Final Staphylococcus epidermidis 06/01/18 16:45 Blood - Peripheral Anaerobic Blood Culture - Preliminary No growth in 4 days 06/01/18 16:50 Blood - Peripheral Aerobic Blood Culture - Final Staphylococcus auricularis 06/01/18 16:50 Blood - Peripheral Anaerobic Blood Culture - Preliminary No growth in 4 days Assessment and Plan - Plan Neuro/Psych: History of TIA Insomnia Melatonin 5 mg daily at long term for insomnia. Acetaminophen 650 p.o. every 6 hours as needed fever CV: Atrial fibrillation -currently normal sinus rhythm Chronic diastolic heart failure ejection fraction 50-55% Essential hypertension Hyperlipidemia History of ablation [address] Page On atorvastatin 40 mg daily for dyslipidemia. On digoxin 0.25 mg daily. Check level/1.7/ Currently on diltiazem 240 mg daily, metoprolol tartrate 100 mg daily for essential hypertension Currently on bumetanide 1 mg twice daily, torsemide 40 mg daily and acetazolamide 125 mg twice daily Last 2D echocardiogram 12/30 revealed a 50-55%. Mild LVH. = 06/05. Continue IV diuresis. Appreciate pulmonology assistance. Continue fluid restrictions. Resp: Acute hypoxic respiratory failure History of COPD/oxygen dependent Obstructive sleep apnea Currently budesonide/formoterol 160/4.5 2 puffs twice daily Albuterol/ipratropium aerosols every 4 hours with albuterol aerosols every 2 hours as needed for dyspnea As needed BiPAP Last PCO2 was 70 the patient appears comfortable at the present time. Dr. 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 Continue aggressive diuresis, have increased fluid restrictions to 1200 mL per day. Discussed with nursing. Patient will need daily weights at home. GI: Gastroesophageal reflux disease Elevated alkaline phosphatase On omeprazole 20 mg daily at home. Currently on pantoprazole 40 milligrams IV twice daily Clear liquid diet Docusate sodium/senna 1 tablet twice daily for bowel regimen GI consultation for lower GI bleed. Currently monitoring =05/16 22. Continues off of rivaroxaban. Plan for EGD/colonoscopy on Thursday. : BPH Continue tamsulosin 0.4 mg daily Endo: Diabetes mellitus 1.5 treat is 1.0 Chronic prednisone use/10 mg daily Sliding scale insulin with aspart insulin before meals at bedtime to maintain euglycemia Holding home medications U100 = Glucose under control in the 170s. Continue to monitor. Renal: Chronic kidney disease stage III a Monitor urine output Accurate I's and O's Creatinine appears close to baseline Heme: Chronic rivaroxaban use Holding Lorazepam in light of lower GI bleed/bright red blood per rectum Continue ferrous sulfate 325 mg by mouth twice daily ID: UTI Blood cultures 2 -1 out of 2 gram-positive cocci possibly contaminant. Await final results., UA no growth Influenza a and B- We will start on cefepime renally dosed see orders Started vancomycin yesterday due to gram-positive cocci in blood likely count. Follow-up //Blood cultures with 2 different bacteria growing more than 24 hours after being drawn. This is contaminant. Discontinue vancomycin. FEN: History of hyperphosphatemia Replace electrolytes as clinically indicated Holding potassium chloride 20 mg daily/home medication Continue calcium acetate 667 mg 3 times daily MSK: Elevated BMI Weight loss encouraged Access -Utilize peripheral IV. Prophylaxis -GI -pantoprazole -DVT -SCD/holding pharmacological prophylaxis in light of acute lower GI bleed Discharge Planning: EGD/colonoscopy on Thursday 06/07 still very edematous. PT following.
[2018-06-06] MEDS: Chlorhexidine Gluconate 2% 1 Pack (2 Cloths) TOPICAL SCH (03:53)
[2018-06-06 04:46] LABS: INR 1.3 Ratio; Prothrombin Time 12.7 sec (9.8-11.6)
[2018-06-06] MEDS: MethylPREDNISolone Sod Succinate Inj 40 MG/ML Vial IV.PUSH SCH ×2 (08:03→20:56)
[2018-06-06] MEDS: Pantoprazole Inj 40 MG Vial IV.PUSH SCH ×2 (08:03→20:57)
[2018-06-06] MEDS: Azithromycin 250 MG Tablet PO SCH (08:08)
[2018-06-06] MEDS: Ferrous Sulfate 325 MG Tablet PO SCH ×2 (08:08→20:57)
[2018-06-06] MEDS: Senna/Docusate Sodium 8.6/50 MG Tablet PO SCH ×2 (08:08→20:59)
[2018-06-06] MEDS: Calcium Acetate 667 MG Capsule PO SCH ×3 (08:08→17:46)
[2018-06-06] MEDS: Torsemide 20 MG Tablet PO SCH (08:08)
[2018-06-06] MEDS: Digoxin 250 MCG Tablet PO SCH (08:08)
[2018-06-06] MEDS: dilTIAZem CD 240 MG Capsule PO SCH (08:08)
[2018-06-06] MEDS: Metoprolol Tartrate 100 MG Tablet PO SCH ×2 (08:08→20:58)
[2018-06-06] MEDS: Budesonide-Formoterol 160/4.5 MCG 6 GM Inhaler INH SCH ×2 (08:09→20:59)
[2018-06-06] MEDS: Potassium Chloride 25 MEQ Effervescent Tablet PO SCH (08:09)
[2018-06-06] MEDS: acetaZOLAMIDE 250 MG TABLET PO SCH ×2 (08:09→20:57)
--- NOTE | 2018-06-06 09:12 | P.PNPL ---
Subjective Interval history: No events overnight. Patient is lying in bed in NAD. Afebrile. Physical Exam Vital signs: Vital Signs 06/05/18 10:00 06/05/18 10:59 06/05/18 11:00 Temperature Pulse Rate 69 75 74 Respiratory Rate 18 21 18 Blood Pressure 153/81 H 130/72 Pulse Oximetry 96 96 06/05/18 12:00 06/05/18 13:00 06/05/18 14:00 Temperature 98.4 F Pulse Rate 68 65 61 Respiratory Rate 17 17 18 Blood Pressure 122/56 L 118/63 114/69 Pulse Oximetry 96 96 97 06/05/18 14:59 06/05/18 15:00 06/05/18 16:00 Temperature Pulse Rate 63 66 67 Respiratory Rate 16 17 18 Blood Pressure 109/56 L 120/78 Pulse Oximetry 98 97 06/05/18 17:00 06/05/18 18:00 06/05/18 19:00 Temperature 98.5 F Pulse Rate 68 77 68 Respiratory Rate 18 17 18 Blood Pressure 96/61 L 95/58 L 103/82 Pulse Oximetry 96 97 97 06/05/18 19:29 06/05/18 19:43 06/05/18 20:00 Temperature 98.5 F Pulse Rate 69 71 Respiratory Rate 20 19 Blood Pressure 103/74 Pulse Oximetry 100 99 06/05/18 21:00 06/05/18 22:00 06/05/18 23:00 Temperature Pulse Rate 68 62 65 Respiratory Rate 19 11 L 14 Blood Pressure 146/83 H 120/68 131/78 Pulse Oximetry 99 96 95 06/06/18 00:00 06/06/18 00:25 06/06/18 01:00 Temperature 98.6 F Pulse Rate 69 68 Respiratory Rate 14 12 Blood Pressure 104/52 L 146/84 H Pulse Oximetry 98 100 100 06/06/18 02:00 06/06/18 03:00 06/06/18 03:10 Temperature Pulse Rate 67 66 68 Respiratory Rate 11 L 11 L 14 Blood Pressure 140/74 127/69 Pulse Oximetry 100 96 06/06/18 04:00 06/06/18 04:20 06/06/18 05:00 Temperature 98.7 F Pulse Rate 70 72 Respiratory Rate 10 L 18 Blood Pressure 137/69 137/80 Pulse Oximetry 98 98 100 06/06/18 06:00 06/06/18 07:00 Temperature Pulse Rate 73 66 Respiratory Rate 18 10 L Blood Pressure 138/78 Pulse Oximetry 100 97 Intake & Output 06/05/18 06/06/18 06/06/18 18:59 06:59 18:59 Intake Total 580 / 580 580 / 580 Output Total 1250 / 1250 1700 / 1700 Balance -670 / -670 -1120 / -1120 Weight 170.5 kg Intake: IV 100 / 100 100 / 100 Maxipime Inj 1,000 MG In NS Inj 100 / 100 100 / 100 100 ML @ 200 mls/hr IV.SIG Q12H DOLLY Rx#:[id number] Oral 480 / 480 480 / 480 Output: Urine 1250 / 1250 1700 / 1700 Other: # Voids 6 # Incontinent Voids 0 Date of Last Bowel Movement 06/02/18 06/02/18 # Bowel Movements 0 0 - Constitutional no acute distress - Routine HEENT Exam Head: Present: normocephalic, atraumatic Eye: Present: EOMI, PERRL, normal accommodation, conjunctivae pink ENT: Present: mucous membranes moist - Routine Neck Exam Present: supple, full ROM, trachea midline - Routine Respiratory Exam Present: CTA bilaterally - Routine Cardiovascular Exam Present: RRR, S1, S2 - Routine Abdominal Exam Present: soft, normoactive bowel sounds - Routine Extremities Exam Present: edema, full ROM - Routine Skin Exam Present: intact, dry - Routine Neurological Exam Present: alert, oriented X3, CN II-XII intact - Urinary Catheter Management Indwelling Urethral Catheter Cath placed during this visit: no Reason for continuing: Not indwelling catheter Assessment and Plan - Plan 1)Acute hypercapnic and hypoxemic resp insuff 2) DEINS/Morbid obesity 3)COPD- on 2L home oxygen 4)Anemia 5)Small loculated pleural effusion Plan Continue with oxygen keep sats >92% Bronchodilators( DuoNeb, Symbicort) Solumederol 40mg Q12 NIPPV PRN for resp distress CXR from 06/03: Improved aeration Continue with diuretics- On Bumex 1mg BID, Demadex 40mg daily Abx- On Cefepime- monitor for signs of infections ( Fever, WBC) GI/DVT prophylaxis- On Xarelto 10mg daily Continue treatment plan
--- NOTE | 2018-06-06 10:12 | P.PNIM ---
Subjective Interval history: 62-year-old morbidly obese male with CHF, diabetes mellitus, chronic urinary retention, hyperlipidemia, hypertension, ulcer, COPD, that was brought in from [facility] due to increased dyspnea. The patient is on home O2 at 2 L via nasal cannula which brought his saturation up to 98 from 89% on 5 L and then was titrated by EMS to 3L. In the emergency department he was found to be altered with increased confusion which is not normal for the patient. Facility staff also reported that they observed Aj blood from the patient's rectum and he has history of hemorrhoids. The patient denies any symptoms at this time but he does appear slightly confused. After reviewing previous charts it appears that the patient was discharged on the of this month where he was admitted here for diastolic congestive heart failure. He also had multiple admissions due to COPD exacerbation. 06/02: Afebrile. P CO2 70%. Maintaining within normal limits. No new rectal bleeding overnight. Will start on diet. 06/03: Resting comfortably in bed. Desaturations overnight. Will need obviously today. Hemoglobin stable. One episode of bright red blood per rectum /large according to RN. Holding rivaroxaban 06-04 patient says he is feeling a little better. He says that his scale broke at home and was not working for a while, turns out it just need a battery. He denies any chest pain. Denies nausea or vomiting. Says it feels like going home in the next few days. 06-05 Says he is feeling a little better than yesterday. Denies any chest pain. Reports shortness of breath is improving. Denies any abdominal pain. 06-06 patient is refusing GI prep and GI workup does not want EGD or colonoscopy again Continue to diurese Physical therapy and occupational therapy to eval and treat A.m. labs Discussed with patient and property developer out of ICU Physical Exam Vital signs: Vital Signs 06/05/18 10:59 06/05/18 11:00 06/05/18 12:00 Temperature Pulse Rate 75 74 68 Respiratory Rate 21 18 17 Blood Pressure 130/72 122/56 L Pulse Oximetry 96 96 06/05/18 13:00 06/05/18 14:00 06/05/18 14:59 Temperature 98.4 F Pulse Rate 65 61 63 Respiratory Rate 17 18 16 Blood Pressure 118/63 114/69 Pulse Oximetry 96 97 06/05/18 15:00 06/05/18 16:00 06/05/18 17:00 Temperature Pulse Rate 66 67 68 Respiratory Rate 17 18 18 Blood Pressure 109/56 L 120/78 96/61 L Pulse Oximetry 98 97 96 06/05/18 18:00 06/05/18 19:00 06/05/18 19:29 Temperature 98.5 F Pulse Rate 77 68 69 Respiratory Rate 17 18 20 Blood Pressure 95/58 L 103/82 Pulse Oximetry 97 97 06/05/18 19:43 06/05/18 20:00 06/05/18 21:00 Temperature 98.5 F Pulse Rate 71 68 Respiratory Rate 19 19 Blood Pressure 103/74 146/83 H Pulse Oximetry 100 99 99 06/05/18 22:00 06/05/18 23:00 06/06/18 00:00 Temperature 98.6 F Pulse Rate 62 65 69 Respiratory Rate 11 L 14 14 Blood Pressure 120/68 131/78 104/52 L Pulse Oximetry 96 95 98 06/06/18 00:25 06/06/18 01:00 06/06/18 02:00 Temperature Pulse Rate 68 67 Respiratory Rate 12 11 L Blood Pressure 146/84 H 140/74 Pulse Oximetry 100 100 100 06/06/18 03:00 06/06/18 03:10 06/06/18 04:00 Temperature 98.7 F Pulse Rate 66 68 70 Respiratory Rate 11 L 14 10 L Blood Pressure 127/69 137/69 Pulse Oximetry 96 98 06/06/18 04:20 06/06/18 05:00 06/06/18 06:00 Temperature Pulse Rate 72 73 Respiratory Rate 18 18 Blood Pressure 137/80 138/78 Pulse Oximetry 98 100 100 06/06/18 07:00 Temperature Pulse Rate 66 Respiratory Rate 10 L Blood Pressure Pulse Oximetry 97 Intake & Output 06/05/18 06/06/18 06/06/18 18:59 06:59 18:59 Intake Total 580 / 580 580 / 580 Output Total 1250 / 1250 1700 / 1700 Balance -670 / -670 -1120 / -1120 Weight 170.5 kg Intake: IV 100 / 100 100 / 100 Maxipime Inj 1,000 MG In NS Inj 100 / 100 100 / 100 100 ML @ 200 mls/hr IV.SIG Q12H DOLLY Rx#:[id number] Oral 480 / 480 480 / 480 Output: Urine 1250 / 1250 1700 / 1700 Other: # Voids 6 # Incontinent Voids 0 Date of Last Bowel Movement 06/02/18 06/02/18 # Bowel Movements 0 0 Narrative: GENERAL: patient sitting up in bed. Appears comfortable. SKIN: Warm and dry. HEAD: Normocephalic. EYES: No scleral icterus. No injection or drainage. NECK: Supple, trachea midline. No JVD. CARDIOVASCULAR: Regular rate and rhythm without murmurs, gallops, or rubs. S1- S2 no S3 or S4 RESPIRATORY: Breath sounds equal bilaterally.distant breath sounds secondary to body habitus. No accessory muscle use. GASTROINTESTINAL: Abdomen soft, non-tender, nondistended. Morbidly obese MUSCULOSKELETAL: No cyanosis,. +3 peripheral edema, very slightly improved with no weeping today. Chronic edema bilateral lower extremities BACK: Nontender without obvious deformity. No CVA tenderness. Insight and judgment is limited Mood and behavior is somewhat appropriate - Urinary Catheter Management Indwelling Urethral Catheter Cath placed during this visit: no Reason for continuing: Not indwelling catheter Results - Labs CBC & Chem 7: 06/05/18 04:33 06/05/18 04:33 Laboratory Results - last 24 hr 06/05/18 06/05/18 06/05/18 11:58 17:13 20:11 PT INR POC Glucose 171 H 200 H 183 H Random Vancomycin 06/06/18 06/06/18 06/06/18 04:20 04:20 08:15 PT 12.7 H INR 1.3 POC Glucose 171 H Random Vancomycin 11.4 Microbiology 06/01/18 16:45 Blood - Peripheral Aerobic Blood Culture - Final Staphylococcus epidermidis 06/01/18 16:45 Blood - Peripheral Anaerobic Blood Culture - Preliminary No growth in 4 days 06/01/18 16:50 Blood - Peripheral Aerobic Blood Culture - Final Staphylococcus auricularis 06/01/18 16:50 Blood - Peripheral Anaerobic Blood Culture - Preliminary No growth in 4 days - Imaging Chest X-Ray 06/01/18 14:48 CONCLUSION: Cardiomegaly. No acute pulmonary disease. Prominent mediastinal as above. CT scan is recommended if clinically indicated. Chest CT 06/01/18 18:17 CONCLUSION: 1. Moderate sized partially loculated right pleural effusion. Trace left pleural fluid. Partial compressive atelectasis of the right lung. 2. Moderate coronary calcifications. Chest X-Ray 06/03/18 06:00 CONCLUSION: Improving aeration Assessment and Plan - Plan History of TIA Insomnia Melatonin 5 mg daily at senior living for insomnia. Acetaminophen 650 p.o. every 6 hours as needed fever CV: Atrial fibrillation -currently normal sinus rhythm Chronic diastolic heart failure ejection fraction 50-55% Essential hypertension Hyperlipidemia History of ablation [address] Page On atorvastatin 40 mg daily for dyslipidemia. On digoxin 0.25 mg daily. Check level/1.7/ Currently on diltiazem 240 mg daily, metoprolol tartrate 100 mg daily for essential hypertension Currently on bumetanide 1 mg twice daily, torsemide 40 mg daily and acetazolamide 125 mg twice daily Last 2D echocardiogram 12/30 revealed a 50-55%. Mild LVH. = 06/05. Continue IV diuresis. Appreciate pulmonology assistance. Continue fluid restrictions. Resp: Acute hypoxic respiratory failure History of COPD/oxygen dependent Obstructive sleep apnea Currently budesonide/formoterol 160/4.5 2 puffs twice daily Albuterol/ipratropium aerosols every 4 hours with albuterol aerosols every 2 hours as needed for dyspnea As needed BiPAP Last PCO2 was 70 the patient appears comfortable at the present time. Dr. 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 Continue aggressive diuresis, have increased fluid restrictions to 1200 mL per day. Discussed with nursing. Patient will need daily weights at home. -Continue to diurese aggressively Fluid restriction GI: Gastroesophageal reflux disease Elevated alkaline phosphatase On omeprazole 20 mg daily at home. Currently on pantoprazole 40 milligrams IV twice daily Clear liquid diet Docusate sodium/senna 1 tablet twice daily for bowel regimen GI consultation for lower GI bleed. Currently monitoring =05/16 22. Continues off of rivaroxaban. Plan for EGD/colonoscopy on Thursday.-- Patient currently refusing EGD and colonoscopy will defer to GI : BPH Continue tamsulosin 0.4 mg daily Endo: Diabetes mellitus 1.5 treat is 1.0 Chronic prednisone use/10 mg daily Sliding scale insulin with aspart insulin before meals at bedtime to maintain euglycemia Holding home medications U100 = Glucose under control in the 170s. Continue to monitor. Renal: Chronic kidney disease stage III a Monitor urine output Accurate I's and O's Creatinine appears close to baseline Heme: Chronic rivaroxaban use Holding Lorazepam in light of lower GI bleed/bright red blood per rectum Continue ferrous sulfate 325 mg by mouth twice daily- Patient refusing EGD and colonoscopy and the prep ID: UTI Blood cultures 2 -1 out of 2 gram-positive cocci possibly contaminant. Await final results., UA no growth Influenza a and B- We will start on cefepime renally dosed see orders Started vancomycin yesterday due to gram-positive cocci in blood likely count. Follow-up //Blood cultures with 2 different bacteria growing more than 24 hours after being drawn. This is contaminant. Discontinue vancomycin. FEN: History of hyperphosphatemia Replace electrolytes as clinically indicated Holding potassium chloride 20 mg daily/home medication Continue calcium acetate 667 mg 3 times daily MSK: Elevated BMI Weight loss encouraged Access -Utilize peripheral IV. Prophylaxis -GI -pantoprazole -DVT -SCD/holding pharmacological prophylaxis in light of acute lower GI bleed Discharge Planning: EGD/colonoscopy on Thursday 06/07 still very edematous. PT following. Continue to aggressively diurese Code Status: Full code Discussed Condition With: RN and patient Discharge Planning: Pending improved diuresis
[2018-06-06] MEDS: Insulin NovoLOG Aspart Correctional Sugar Inj SQ SCH ×4 (11:29→22:10)
[2018-06-06] MEDS ORDERED: PEG 3350/E-Lyte Soln 4000 ML Bottle PO ONE (15:00)
--- NOTE | 2018-06-06 16:46 | P.PNGI ---
Subjective Interval history: Patient's resting in the bed currently appears comfortable denies any abdominal pain no nausea no vomiting. Refusing colonoscopy <ZuhairMarianela M - Last Filed: 06/06/18 16:46> Physical Exam Vital signs: Vital Signs 06/05/18 17:00 06/05/18 18:00 06/05/18 19:00 Temperature 98.5 F Pulse Rate 68 77 68 Respiratory Rate 18 17 18 Blood Pressure 96/61 L 95/58 L 103/82 Pulse Oximetry 96 97 97 06/05/18 19:29 06/05/18 19:43 06/05/18 20:00 Temperature 98.5 F Pulse Rate 69 71 Respiratory Rate 20 19 Blood Pressure 103/74 Pulse Oximetry 100 99 06/05/18 21:00 06/05/18 22:00 06/05/18 23:00 Temperature Pulse Rate 68 62 65 Respiratory Rate 19 11 L 14 Blood Pressure 146/83 H 120/68 131/78 Pulse Oximetry 99 96 95 06/06/18 00:00 06/06/18 00:25 06/06/18 01:00 Temperature 98.6 F Pulse Rate 69 68 Respiratory Rate 14 12 Blood Pressure 104/52 L 146/84 H Pulse Oximetry 98 100 100 06/06/18 02:00 06/06/18 03:00 06/06/18 03:10 Temperature Pulse Rate 67 66 68 Respiratory Rate 11 L 11 L 14 Blood Pressure 140/74 127/69 Pulse Oximetry 100 96 06/06/18 04:00 06/06/18 04:20 06/06/18 05:00 Temperature 98.7 F Pulse Rate 70 72 Respiratory Rate 10 L 18 Blood Pressure 137/69 137/80 Pulse Oximetry 98 98 100 06/06/18 06:00 06/06/18 07:00 06/06/18 08:00 Temperature 98.2 F Pulse Rate 73 67 66 Respiratory Rate 18 18 17 Blood Pressure 138/78 120/66 140/81 Pulse Oximetry 100 100 100 06/06/18 09:00 06/06/18 10:00 06/06/18 11:00 Temperature Pulse Rate 73 70 68 Respiratory Rate 18 19 18 Blood Pressure 139/84 132/75 Pulse Oximetry 100 98 100 06/06/18 11:40 06/06/18 12:00 06/06/18 13:00 Temperature 98.4 F Pulse Rate 66 66 66 Respiratory Rate 16 18 17 Blood Pressure 109/56 L 108/62 Pulse Oximetry 100 100 06/06/18 14:00 06/06/18 14:53 06/06/18 15:00 Temperature Pulse Rate 67 65 68 Respiratory Rate 18 19 17 Blood Pressure 137/73 142/78 H Pulse Oximetry 98 98 06/06/18 16:00 Temperature Pulse Rate 75 Respiratory Rate 18 Blood Pressure 132/75 Pulse Oximetry 97 Intake & Output 06/05/18 06/06/18 06/06/18 18:59 06:59 18:59 Intake Total 580 / 580 580 / 580 100 / 100 Output Total 1250 / 1250 1700 / 1700 Balance -670 / -670 -1120 / -1120 100 / 100 Weight 170.5 kg Intake: IV 100 / 100 100 / 100 100 / 100 Maxipime Inj 1,000 MG In NS Inj 100 / 100 100 / 100 100 / 100 100 ML @ 200 mls/hr IV.SIG Q12H DOLLY Rx#:[id number] Oral 480 / 480 480 / 480 Output: Urine 1250 / 1250 1700 / 1700 Other: # Voids 6 # Incontinent Voids 0 Date of Last Bowel Movement 06/02/18 06/02/18 06/02/18 # Bowel Movements 0 0 - Constitutional morbidly obese, disheveled - Routine HEENT Exam Head: Present: normocephalic ENT: Present: mucous membranes moist - Routine Respiratory Exam Present: accessory muscle use (No obvious shortness of breath) - Routine Cardiovascular Exam Present: S1, S2 - Routine Abdominal Exam Present: soft, normoactive bowel sounds, distended (Obese but otherwise no obvious abdominal distention) - Urinary Catheter Management Indwelling Urethral Catheter Cath placed during this visit: no Reason for continuing: Not indwelling catheter <Marianela Moffett - Last Filed: 06/06/18 16:46> Vital signs: Vital Signs 06/05/18 17:00 06/05/18 18:00 06/05/18 19:00 Temperature 98.5 F Pulse Rate 68 77 68 Respiratory Rate 18 17 18 Blood Pressure 96/61 L 95/58 L 103/82 Pulse Oximetry 96 97 97 06/05/18 19:29 06/05/18 19:43 06/05/18 20:00 Temperature 98.5 F Pulse Rate 69 71 Respiratory Rate 20 19 Blood Pressure 103/74 Pulse Oximetry 100 99 06/05/18 21:00 06/05/18 22:00 06/05/18 23:00 Temperature Pulse Rate 68 62 65 Respiratory Rate 19 11 L 14 Blood Pressure 146/83 H 120/68 131/78 Pulse Oximetry 99 96 95 06/06/18 00:00 06/06/18 00:25 06/06/18 01:00 Temperature 98.6 F Pulse Rate 69 68 Respiratory Rate 14 12 Blood Pressure 104/52 L 146/84 H Pulse Oximetry 98 100 100 06/06/18 02:00 06/06/18 03:00 06/06/18 03:10 Temperature Pulse Rate 67 66 68 Respiratory Rate 11 L 11 L 14 Blood Pressure 140/74 127/69 Pulse Oximetry 100 96 06/06/18 04:00 06/06/18 04:20 06/06/18 05:00 Temperature 98.7 F Pulse Rate 70 72 Respiratory Rate 10 L 18 Blood Pressure 137/69 137/80 Pulse Oximetry 98 98 100 06/06/18 06:00 06/06/18 07:00 06/06/18 08:00 Temperature 98.2 F Pulse Rate 73 67 66 Respiratory Rate 18 18 17 Blood Pressure 138/78 120/66 140/81 Pulse Oximetry 100 100 100 06/06/18 09:00 06/06/18 10:00 06/06/18 11:00 Temperature Pulse Rate 73 70 68 Respiratory Rate 18 19 18 Blood Pressure 139/84 132/75 Pulse Oximetry 100 98 100 06/06/18 11:40 06/06/18 12:00 06/06/18 13:00 Temperature 98.4 F Pulse Rate 66 66 66 Respiratory Rate 16 18 17 Blood Pressure 109/56 L 108/62 Pulse Oximetry 100 100 06/06/18 14:00 06/06/18 14:53 06/06/18 15:00 Temperature Pulse Rate 67 65 68 Respiratory Rate 18 19 17 Blood Pressure 137/73 142/78 H Pulse Oximetry 98 98 06/06/18 16:00 Temperature Pulse Rate 75 Respiratory Rate 18 Blood Pressure 132/75 Pulse Oximetry 97 Intake & Output 06/05/18 06/06/18 06/06/18 18:59 06:59 18:59 Intake Total 580 / 580 580 / 580 100 / 100 Output Total 1250 / 1250 1700 / 1700 Balance -670 / -670 -1120 / -1120 100 / 100 Weight 170.5 kg Intake: IV 100 / 100 100 / 100 100 / 100 Maxipime Inj 1,000 MG In NS Inj 100 / 100 100 / 100 100 / 100 100 ML @ 200 mls/hr IV.SIG Q12H DOLLY Rx#:[id number] Oral 480 / 480 480 / 480 Output: Urine 1250 / 1250 1700 / 1700 Other: # Voids 6 # Incontinent Voids 0 Date of Last Bowel Movement 06/02/18 06/02/18 06/02/18 # Bowel Movements 0 0 - Urinary Catheter Management Indwelling Urethral Catheter Cath placed during this visit: no <Edd Lindo - Last Filed: 06/06/18 16:56> Results - Labs CBC & Chem 7: 06/05/18 04:33 06/05/18 04:33 Laboratory Results - last 24 hr 06/05/18 06/05/18 06/06/18 17:13 20:11 04:20 PT INR POC Glucose 200 H 183 H Random Vancomycin 11.4 06/06/18 06/06/18 06/06/18 04:20 08:15 12:17 PT 12.7 H INR 1.3 POC Glucose 171 H 132 H Random Vancomycin Microbiology 06/01/18 16:45 Blood - Peripheral Aerobic Blood Culture - Final Staphylococcus epidermidis 06/01/18 16:45 Blood - Peripheral Anaerobic Blood Culture - Final No growth in 5 days 06/01/18 16:50 Blood - Peripheral Aerobic Blood Culture - Final Staphylococcus auricularis 06/01/18 16:50 Blood - Peripheral Anaerobic Blood Culture - Final No growth in 5 days <Marianela Moffett - Last Filed: 06/06/18 16:46> - Labs CBC & Chem 7: 06/05/18 04:33 06/05/18 04:33 Laboratory Results - last 24 hr 06/05/18 06/05/18 06/06/18 17:13 20:11 04:20 PT INR POC Glucose 200 H 183 H Random Vancomycin 11.4 06/06/18 06/06/18 06/06/18 04:20 08:15 12:17 PT 12.7 H INR 1.3 POC Glucose 171 H 132 H Random Vancomycin Microbiology 06/01/18 16:45 Blood - Peripheral Aerobic Blood Culture - Final Staphylococcus epidermidis 06/01/18 16:45 Blood - Peripheral Anaerobic Blood Culture - Final No growth in 5 days 06/01/18 16:50 Blood - Peripheral Aerobic Blood Culture - Final Staphylococcus auricularis 06/01/18 16:50 Blood - Peripheral Anaerobic Blood Culture - Final No growth in 5 days <Edd Lindo - Last Filed: 06/06/18 16:56> Assessment and Plan - Plan 06/04/2018, patient remains in the intensive care setting, still has generalized edema in extremities and abdomen. Hemoglobin stable at 9.9, PT/INR 1.3, denies any acute nausea vomiting or abdominal pain. Patient still remains with some hypoxia with in the increased activity and his a.m. care this morning around 83 but was unable to slow his breathing down and get his sat back up at greater than 90. Needs to stabilize from a respiratory standpoint before any further GI procedures are performed. Will reevaluate in the a.m. but probably will be sometime next week. 06/05/2018 patient continues to show some gradual improvement, generalized edema improving and no obvious shortness of breath continues with nasal cannula at 5 L current hemoglobin 9.8 and stable no obvious bleeding. Xarelto remains on hold patient continues to show gradual improvement. We will plan colonoscopy for Thursday as long as patient remains stable. 06/06/2018, patient is resting in the bed feeling much better plan is to move him out of intensive care this p.m. patient states no abdominal pain, no nausea no vomiting. Still has some generalized edema but gradual improvement has been noted with his medical management. Currently patient is refusing colonoscopy. Supportive care given, and offer to follow patient on an outpatient basis if he needed GI otherwise GI can follow as needed. Current hemoglobin stable at 9.8. Any GI bleed was probably secondary to his Xarelto. PT/INR 1.3 Plan: Diet, as tolerated Monitor labs with special attention to hemoglobin Bowel regimen Supportive care Patient was seen per myself and Dr. Lindo, note was written on his behalf <Marianela Moffett M - Last Filed: 06/06/18 16:46> - Plan Patient seen and examined Agree with above Continue with current supportive care Monitor labs Patient refusing colonoscopy at this point but otherwise seems to be improving and no further bleeding Therefore we will sign off at this point please reconsult as needed <Edd Lindo E - Last Filed: 06/06/18 16:56>
[2018-06-07 07:16] LABS: Hematocrit 33.5 % (39.0-51.0); Hemoglobin 9.8 gm/dL (13.0-17.0); Lymph # (Auto) 0.1 th/mm3 (1.0-4.8); Lymph % (Auto) 1.8 % (9.0-44.0); Mean Corpuscular Volume 88.7 fL (80.0-100.0); Mean Platelet Volume 8.4 fL (7.0-11.0); Mono # (Auto) 0.2 th/mm3 (0.0-0.9); Mono % (Auto) 5.4 % (0.0-8.0); Neut # (Auto) 4.2 th/mm3 (1.8-7.7); Neut % (Auto) 92.8 % (16.0-70.0); Platelet Count 154 th/mm3 (150-450); Red Blood Count 3.78 mil/mm3 (4.50-5.90); White Blood Count 4.5 th/mm3 (4.0-11.0)
[2018-06-07 07:33] LABS: Mean Corpuscular HGB Conc 29.3 % (32.0-36.0)
[2018-06-07 07:43] LABS: Alanine Aminotransferase 51 U/L (12-78); Albumin 3.3 g/dL (3.4-5.0); Anion Gap 10 meq/L (5-15); Aspartate Aminotransferase 40 U/L (15-37); Blood Urea Nitrogen 88 mg/dL (7-18); Calcium 8.1 mg/dL (8.5-10.1); Carbon Dioxide 36.1 meq/L (21.0-32.0); Chloride 99 meq/L (98-107); Glomerular Filtration Rate 45 mL/min (>89); Glucose,Random 170 mg/dL (74-106); Magnesium 2.8 mg/dL (1.5-2.5); Potassium 3.9 meq/L (3.5-5.1); Sodium 145 meq/L (136-145)
[2018-06-07] MEDS: Insulin NovoLOG Aspart Correctional Sugar Inj SQ SCH ×4 (07:50→20:39)
[2018-06-07 07:51] LABS: Alkaline Phosphatase 138 U/L (45-117); Phosphorus 4.3 mg/dL (2.5-4.9); Total Protein 6.2 g/dL (6.4-8.2)
[2018-06-07] MEDS: acetaZOLAMIDE 250 MG TABLET PO SCH ×2 (08:00→20:36)
[2018-06-07] MEDS: Torsemide 20 MG Tablet PO SCH (08:00)
[2018-06-07] MEDS: Potassium Chloride 25 MEQ Effervescent Tablet PO SCH (08:00)
[2018-06-07] MEDS: Metoprolol Tartrate 100 MG Tablet PO SCH ×2 (08:00→20:38)
[2018-06-07] MEDS: dilTIAZem CD 240 MG Capsule PO SCH (08:00)
[2018-06-07] MEDS: Calcium Acetate 667 MG Capsule PO SCH ×3 (08:01→17:37)
[2018-06-07] MEDS: Ferrous Sulfate 325 MG Tablet PO SCH ×2 (08:01→20:39)
[2018-06-07] MEDS: Budesonide-Formoterol 160/4.5 MCG 6 GM Inhaler INH SCH ×2 (08:01→20:53)
[2018-06-07] MEDS: Digoxin 250 MCG Tablet PO SCH (08:01)
[2018-06-07] MEDS: MethylPREDNISolone Sod Succinate Inj 40 MG/ML Vial IV.PUSH SCH ×2 (08:01→20:38)
[2018-06-07] MEDS: Senna/Docusate Sodium 8.6/50 MG Tablet PO SCH ×2 (08:01→20:38)
[2018-06-07] MEDS: Azithromycin 250 MG Tablet PO SCH (08:01)
[2018-06-07] MEDS: Pantoprazole Inj 40 MG Vial IV.PUSH SCH ×2 (08:01→20:40)
--- NOTE | 2018-06-07 10:33 | P.PNIM ---
Subjective Interval history: 62-year-old morbidly obese male with CHF, diabetes mellitus, chronic urinary retention, hyperlipidemia, hypertension, ulcer, COPD, that was brought in from [facility] due to increased dyspnea. The patient is on home O2 at 2 L via nasal cannula which brought his saturation up to 98 from 89% on 5 L and then was titrated by EMS to 3L. In the emergency department he was found to be altered with increased confusion which is not normal for the patient. Facility staff also reported that they observed Aj blood from the patient's rectum and he has history of hemorrhoids. The patient denies any symptoms at this time but he does appear slightly confused. After reviewing previous charts it appears that the patient was discharged on the of this month where he was admitted here for diastolic congestive heart failure. He also had multiple admissions due to COPD exacerbation. 06/02: Afebrile. P CO2 70%. Maintaining within normal limits. No new rectal bleeding overnight. Will start on diet. 06/03: Resting comfortably in bed. Desaturations overnight. Will need obviously today. Hemoglobin stable. One episode of bright red blood per rectum /large according to RN. Holding rivaroxaban 06-04 patient says he is feeling a little better. He says that his scale broke at home and was not working for a while, turns out it just need a battery. He denies any chest pain. Denies nausea or vomiting. Says it feels like going home in the next few days. 06-05 Says he is feeling a little better than yesterday. Denies any chest pain. Reports shortness of breath is improving. Denies any abdominal pain. 06-06 patient is refusing GI prep and GI workup does not want EGD or colonoscopy again Continue to diurese Physical therapy and occupational therapy to eval and treat A.m. labs Discussed with patient and acid leveler out of ICU 06-07 REFUSED EGD AND COLONOSCOPY ONLY ON 2L OF OXYGEN IS ON THIS AT HOME WANTS TO GO HOME WITH [facility] TRANSFER OUT OF ICU WILL RESTART XARELTO- HOPEFULLY NO BLEEDING IF STABLE THEN DC TOMORROW AM LABS Physical Exam Vital signs: Vital Signs 06/06/18 11:00 06/06/18 11:40 06/06/18 12:00 Temperature 98.4 F Pulse Rate 68 66 66 Respiratory Rate 18 16 18 Blood Pressure 132/75 109/56 L Pulse Oximetry 100 100 06/06/18 13:00 06/06/18 14:00 06/06/18 14:53 Temperature Pulse Rate 66 67 65 Respiratory Rate 17 18 19 Blood Pressure 108/62 137/73 Pulse Oximetry 100 98 06/06/18 15:00 06/06/18 16:00 06/06/18 17:00 Temperature Pulse Rate 68 75 73 Respiratory Rate 17 18 17 Blood Pressure 142/78 H 132/75 130/68 Pulse Oximetry 98 97 98 06/06/18 18:00 06/06/18 19:00 06/06/18 19:10 Temperature 97.8 F Pulse Rate 78 75 75 Respiratory Rate 18 18 20 Blood Pressure 112/63 118/71 Pulse Oximetry 97 97 96 06/06/18 20:00 06/06/18 21:00 06/06/18 22:00 Temperature 97.8 F 97.8 F Pulse Rate 82 80 Respiratory Rate 16 17 Blood Pressure 142/71 H 123/68 Pulse Oximetry 97 97 100 06/06/18 23:13 06/07/18 00:00 06/07/18 01:12 Temperature 98 F Pulse Rate 72 74 Respiratory Rate 12 16 Blood Pressure 137/76 Pulse Oximetry 97 94 L 06/07/18 03:00 06/07/18 03:20 06/07/18 04:00 Temperature 97.7 F Pulse Rate 81 80 Respiratory Rate 18 14 Blood Pressure 140/96 H Pulse Oximetry 97 100 06/07/18 07:00 06/07/18 07:26 06/07/18 08:00 Temperature 97.9 F Pulse Rate 79 77 Respiratory Rate 18 15 Blood Pressure 145/70 H Pulse Oximetry 95 99 06/07/18 09:00 Temperature Pulse Rate 78 Respiratory Rate Blood Pressure Pulse Oximetry Intake & Output 06/06/18 06/07/18 06/07/18 18:59 06:59 18:59 Intake Total 700 / 700 340 / 340 Output Total 1850 / 1850 1100 / 1100 Balance -1150 / -1150 -760 / -760 Weight 169 kg Intake: IV 100 / 100 100 / 100 Maxipime Inj 1,000 MG In NS Inj 100 / 100 100 / 100 100 ML @ 200 mls/hr IV.SIG Q12H DOLLY Rx#:[id number] Oral 600 / 600 240 / 240 Output: Urine 1850 / 1850 1100 / 1100 Other: # Voids 5 # Incontinent Voids 0 Date of Last Bowel Movement 06/02/18 06/02/18 06/02/18 # Bowel Movements 0 0 Narrative: GENERAL: patient sitting up in bed. Appears comfortable. SKIN: Warm and dry. HEAD: Normocephalic. EYES: No scleral icterus. No injection or drainage. NECK: Supple, trachea midline. No JVD. CARDIOVASCULAR: IRRegular rate and rhythm without murmurs, gallops, or rubs. S1 -S2 no S3 or S4 RESPIRATORY: Breath sounds equal bilaterally.distant breath sounds secondary to body habitus. No accessory muscle use. GASTROINTESTINAL: Abdomen soft, non-tender, nondistended. Morbidly obese MUSCULOSKELETAL: No cyanosis,. +3 peripheral edema, very slightly improved with no weeping today. Chronic edema bilateral lower extremities BRAWNY EDEMA BACK: Nontender without obvious deformity. No CVA tenderness. Insight and judgment is limited Mood and behavior is somewhat appropriate - Urinary Catheter Management Indwelling Urethral Catheter Cath placed during this visit: no Reason for continuing: Not indwelling catheter Results - Labs CBC & Chem 7: 06/07/18 05:50 06/07/18 05:50 Laboratory Results - last 24 hr 06/06/18 06/06/18 06/06/18 12:17 17:31 21:19 WBC RBC Hgb Hct MCV MCH MCHC RDW Plt Count MPV Neut % (Auto) Lymph % (Auto) [place] % (Auto) Eos % (Auto) Baso % (Auto) Neut # (Auto) Lymph # (Auto) [place] # (Auto) Eos # (Auto) Baso # (Auto) WBC Differential Differential Comment Sodium Potassium Chloride Carbon Dioxide Anion Gap BUN Creatinine Estimated GFR POC Glucose 132 H 183 H 135 H Random Glucose Calcium Phosphorus Magnesium Total Bilirubin AST ALT Alkaline Phosphatase Total Protein Albumin TSH Free T4 06/07/18 06/07/18 06/07/18 05:50 05:50 07:29 WBC 4.5 RBC 3.78 L Hgb 9.8 L Hct 33.5 L MCV 88.7 MCH 26.0 L MCHC 29.3 L RDW 21.0 H Plt Count 154 MPV 8.4 Neut % (Auto) 92.8 H Lymph % (Auto) 1.8 L [place] % (Auto) 5.4 Eos % (Auto) 0.0 Baso % (Auto) 0.0 Neut # (Auto) 4.2 Lymph # (Auto) 0.1 L [place] # (Auto) 0.2 Eos # (Auto) 0.0 Baso # (Auto) 0.0 WBC Differential . Differential Comment Auto diff final Sodium 145 Potassium 3.9 Chloride 99 Carbon Dioxide 36.1 H Anion Gap 10 BUN 88 H Creatinine 1.55 H Estimated GFR 45 L POC Glucose 173 H Random Glucose 170 H Calcium 8.1 L Phosphorus 4.3 Magnesium 2.8 H Total Bilirubin 0.8 AST 40 H ALT 51 Alkaline Phosphatase 138 H Total Protein 6.2 L Albumin 3.3 L TSH 1.100 Free T4 0.90 Microbiology 06/01/18 16:45 Blood - Peripheral Aerobic Blood Culture - Final Staphylococcus epidermidis 06/01/18 16:45 Blood - Peripheral Anaerobic Blood Culture - Final No growth in 5 days 06/01/18 16:50 Blood - Peripheral Aerobic Blood Culture - Final Staphylococcus auricularis 06/01/18 16:50 Blood - Peripheral Anaerobic Blood Culture - Final No growth in 5 days Assessment and Plan - Plan History of TIA Insomnia [facility]. Acetaminophen 650 p.o. every 6 hours as needed fever CV: Atrial fibrillation -currently normal sinus rhythm Chronic diastolic heart failure ejection fraction 50-55% Essential hypertension Hyperlipidemia History of ablation [address] Page On atorvastatin 40 mg daily for dyslipidemia. On digoxin 0.25 mg daily. Check level/1.7/ Currently on diltiazem 240 mg daily, metoprolol tartrate 100 mg daily for essential hypertension Currently on bumetanide 1 mg twice daily, torsemide 40 mg daily and acetazolamide 125 mg twice daily Last 2D echocardiogram 12/30 revealed a 50-55%. Mild LVH. = 06/05. Continue IV diuresis. Appreciate pulmonology assistance. Continue fluid restrictions. Resp: Acute hypoxic respiratory failure History of COPD/oxygen dependent Obstructive sleep apnea Currently budesonide/formoterol 160/4.5 2 puffs twice daily Albuterol/ipratropium aerosols every 4 hours with albuterol aerosols every 2 hours as needed for dyspnea As needed BiPAP Last PCO2 was 70 the patient appears comfortable at the present time. Dr. Reid is his primary treasury representative We will need sleep study as outpatient =06/04 respiratory status improving with treatment for CHF. Continue aggressive diuresis, have increased fluid restrictions to 1200 mL per day. Discussed with nursing. Patient will need daily weights at home. -Continue to diurese aggressively Fluid restriction GI: Gastroesophageal reflux disease Elevated alkaline phosphatase On omeprazole 20 mg daily at home. Currently on pantoprazole 40 milligrams IV twice daily Clear liquid diet Docusate sodium/senna 1 tablet twice daily for bowel regimen GI consultation for lower GI bleed. Currently monitoring =05/16 22. Continues off of rivaroxaban. Plan for EGD/colonoscopy on Thursday.-- Patient currently refusing EGD and colonoscopy will defer to GI RESTART XARELTO : BPH Continue tamsulosin 0.4 mg daily Endo: Diabetes mellitus 1.5 treat is 1.0 Chronic prednisone use/10 mg daily Sliding scale insulin with aspart insulin before meals at bedtime to maintain euglycemia Holding home medications U100 = Glucose under control in the 170s. Continue to monitor. Renal: Chronic kidney disease stage III a Monitor urine output Accurate I's and O's Creatinine appears close to baseline Heme: Chronic rivaroxaban use Holding Lorazepam in light of lower GI bleed/bright red blood per rectum Continue ferrous sulfate 325 mg by mouth twice daily- Patient refusing EGD and colonoscopy and the prep RESTART XARELTO ID: UTI Blood cultures 2 -1 out of 2 gram-positive cocci possibly contaminant. Await final results., UA no growth Influenza a and B- We will start on cefepime renally dosed see orders Started vancomycin yesterday due to gram-positive cocci in blood likely count. Follow-up //Blood cultures with 2 different bacteria growing more than 24 hours after being drawn. This is contaminant. Discontinue vancomycin. FEN: History of hyperphosphatemia Replace electrolytes as clinically indicated Holding potassium chloride 20 mg daily/home medication Continue calcium acetate 667 mg 3 times daily MSK: Elevated BMI Weight loss encouraged Access -Utilize peripheral IV. Prophylaxis -GI -pantoprazole -DVT -SCD/holding pharmacological prophylaxis in light of acute lower GI bleed Discharge Planning: EGD/colonoscopy on Thursday 06/07-PATIENT REFUSED still very edematous. -CONTINUE TO DIURESE PT following. Continue to aggressively diurese Code Status: FULL CODE Discussed Condition With: DENTON RN AND PT Discharge Planning: Pending improved diuresis
--- NOTE | 2018-06-07 10:35 | P.DCO ---
- Physical Therapy Order: Evaluate and treat, Improve ambulation, Strength and gait training - Occupational Therapy Order: Evaluate and treat, Improve ADL, Gross motor coordination, Fine motor coordination - Home Health Nursing Order: Medical education, Signs/symptoms of disease process, Diabetic education , CHF education, Oxygen administration education, Medication education-adverse effect, Nursing assessment with vital signs, Telehealth - Home Health Aide Order: To assist in: Bathing and personal care, bin tripper operator and meal prep - Artist Relationship Manager Order: To evaluate: Living conditions/environment, Support services - Case Management Consult Yes - Certification I have seen patient Zeeshan Nix on 06/07/18. My clinical findings support the need for the requested home health care services because: Limited mobility due to disease progression, Patient has SOB, Deconditioned with increased weakness, Medication compliance is questionable, Limited ability to care for self I certify that my clinical findings support that this patient is homebound because: Impaired cognitive ability/safety, Hx COPD - exertion dyspnea/weakness, Unsteady gait/balance, Unsafe to leave home unassisted, Poor cardiac reserve
[2018-06-07] MEDS: Rivaroxaban 10 MG Tablet PO SCH (11:00)
--- NOTE | 2018-06-07 14:58 | P.PN ---
Subjective Interval history: alert nad Physical Exam Vital signs: Vital Signs 06/06/18 15:00 06/06/18 16:00 06/06/18 17:00 Temperature Pulse Rate 68 75 73 Respiratory Rate 17 18 17 Blood Pressure 142/78 H 132/75 130/68 Pulse Oximetry 98 97 98 06/06/18 18:00 06/06/18 19:00 06/06/18 19:10 Temperature 97.8 F Pulse Rate 78 75 75 Respiratory Rate 18 18 20 Blood Pressure 112/63 118/71 Pulse Oximetry 97 97 96 06/06/18 20:00 06/06/18 21:00 06/06/18 22:00 Temperature 97.8 F 97.8 F Pulse Rate 82 80 Respiratory Rate 16 17 Blood Pressure 142/71 H 123/68 Pulse Oximetry 97 97 100 06/06/18 23:13 06/07/18 00:00 06/07/18 01:12 Temperature 98 F Pulse Rate 72 74 Respiratory Rate 12 16 Blood Pressure 137/76 Pulse Oximetry 97 94 L 06/07/18 03:00 06/07/18 03:20 06/07/18 04:00 Temperature 97.7 F Pulse Rate 81 80 Respiratory Rate 18 14 Blood Pressure 140/96 H Pulse Oximetry 97 100 06/07/18 07:00 06/07/18 07:26 06/07/18 08:00 Temperature 97.9 F Pulse Rate 79 77 Respiratory Rate 18 15 Blood Pressure 145/70 H Pulse Oximetry 95 99 06/07/18 09:00 06/07/18 11:13 06/07/18 12:00 Temperature 98 F Pulse Rate 78 74 74 Respiratory Rate 18 16 Blood Pressure 168/78 H Pulse Oximetry 98 Intake & Output 06/06/18 06/07/18 06/07/18 18:59 06:59 18:59 Intake Total 700 / 700 340 / 340 100 / 100 Output Total 1850 / 1850 1100 / 1100 Balance -1150 / -1150 -760 / -760 100 / 100 Weight 169 kg Intake: IV 100 / 100 100 / 100 100 / 100 Maxipime Inj 1,000 MG In NS Inj 100 / 100 100 / 100 100 / 100 100 ML @ 200 mls/hr IV.SIG Q12H DOLLY Rx#:[id number] Oral 600 / 600 240 / 240 Output: Urine 1850 / 1850 1100 / 1100 Other: # Voids 5 # Incontinent Voids 0 Date of Last Bowel Movement 06/02/18 06/02/18 06/02/18 # Bowel Movements 0 0 Narrative: GENERAL: patient sitting up in bed. Appears comfortable. SKIN: Warm and dry. HEAD: Normocephalic. EYES: No scleral icterus. No injection or drainage. NECK: Supple, trachea midline. No JVD. CARDIOVASCULAR: IRRegular rate and rhythm without murmurs, gallops, or rubs. S1 -S2 no S3 or S4 RESPIRATORY: Breath sounds equal bilaterally.distant breath sounds secondary to body habitus. No accessory muscle use. GASTROINTESTINAL: Abdomen soft, non-tender, nondistended. Morbidly obese MUSCULOSKELETAL: No cyanosis,. +3 peripheral edema, very slightly improved with no weeping today. Chronic edema bilateral lower extremities BRAWNY EDEMA BACK: Nontender without obvious deformity. No CVA tenderness. Insight and judgment is limited Mood and behavior is somewhat appropriate - Urinary Catheter Management Indwelling Urethral Catheter Cath placed during this visit: no Reason for continuing: Not indwelling catheter Results - Labs CBC & Chem 7: 06/07/18 05:50 06/07/18 05:50 Laboratory Results - last 24 hr 06/06/18 06/06/18 06/07/18 17:31 21:19 05:50 WBC 4.5 RBC 3.78 L Hgb 9.8 L Hct 33.5 L MCV 88.7 MCH 26.0 L MCHC 29.3 L RDW 21.0 H Plt Count 154 MPV 8.4 Neut % (Auto) 92.8 H Lymph % (Auto) 1.[address] % (Auto) 5.4 Eos % (Auto) 0.0 Baso % (Auto) 0.0 Neut # (Auto) 4.2 Lymph # (Auto) 0.[address] # (Auto) 0.2 Eos # (Auto) 0.0 Baso # (Auto) 0.0 WBC Differential . Differential Comment Auto diff final Sodium Potassium Chloride Carbon Dioxide Anion Gap BUN Creatinine Estimated GFR POC Glucose 183 H 135 H Random Glucose Calcium Phosphorus Magnesium Total Bilirubin AST ALT Alkaline Phosphatase Total Protein Albumin TSH Free T4 06/07/18 06/07/18 06/07/18 05:50 07:29 11:48 WBC RBC Hgb Hct MCV MCH MCHC RDW Plt Count MPV Neut % (Auto) Lymph % (Auto) Lane % (Auto) Eos % (Auto) Baso % (Auto) Neut # (Auto) Lymph # (Auto) Lane # (Auto) Eos # (Auto) Baso # (Auto) WBC Differential Differential Comment Sodium 145 Potassium 3.9 Chloride 99 Carbon Dioxide 36.1 H Anion Gap 10 BUN 88 H Creatinine 1.55 H Estimated GFR 45 L POC Glucose 173 H 148 H Random Glucose 170 H Calcium 8.1 L Phosphorus 4.3 Magnesium 2.8 H Total Bilirubin 0.8 AST 40 H ALT 51 Alkaline Phosphatase 138 H Total Protein 6.2 L Albumin 3.3 L TSH 1.100 Free T4 0.90 Microbiology 06/01/18 16:45 Blood - Peripheral Aerobic Blood Culture - Final Staphylococcus epidermidis 06/01/18 16:45 Blood - Peripheral Anaerobic Blood Culture - Final No growth in 5 days 06/01/18 16:50 Blood - Peripheral Aerobic Blood Culture - Final Staphylococcus auricularis 06/01/18 16:50 Blood - Peripheral Anaerobic Blood Culture - Final No growth in 5 days
--- NOTE | 2018-06-07 15:02 | P.PN ---
Physical Exam Vital signs: Vital Signs 06/06/18 16:00 06/06/18 17:00 06/06/18 18:00 Temperature Pulse Rate 75 73 78 Respiratory Rate 18 17 18 Blood Pressure 132/75 130/68 112/63 Pulse Oximetry 97 98 97 06/06/18 19:00 06/06/18 19:10 06/06/18 20:00 Temperature 97.8 F 97.8 F Pulse Rate 75 75 82 Respiratory Rate 18 20 16 Blood Pressure 118/71 142/71 H Pulse Oximetry 97 96 97 06/06/18 21:00 06/06/18 22:00 06/06/18 23:13 Temperature 97.8 F Pulse Rate 80 72 Respiratory Rate 17 12 Blood Pressure 123/68 Pulse Oximetry 97 100 06/07/18 00:00 06/07/18 01:12 06/07/18 03:00 Temperature 98 F Pulse Rate 74 Respiratory Rate 16 Blood Pressure 137/76 Pulse Oximetry 97 94 L 97 06/07/18 03:20 06/07/18 04:00 06/07/18 07:00 Temperature 97.7 F Pulse Rate 81 80 79 Respiratory Rate 18 14 18 Blood Pressure 140/96 H Pulse Oximetry 100 06/07/18 07:26 06/07/18 08:00 06/07/18 09:00 Temperature 97.9 F Pulse Rate 77 78 Respiratory Rate 15 Blood Pressure 145/70 H Pulse Oximetry 95 99 06/07/18 11:13 06/07/18 12:00 Temperature 98 F Pulse Rate 74 74 Respiratory Rate 18 16 Blood Pressure 168/78 H Pulse Oximetry 98 Intake & Output 06/06/18 06/07/18 06/07/18 18:59 06:59 18:59 Intake Total 700 / 700 340 / 340 100 / 100 Output Total 1850 / 1850 1100 / 1100 Balance -1150 / -1150 -760 / -760 100 / 100 Weight 169 kg Intake: IV 100 / 100 100 / 100 100 / 100 Maxipime Inj 1,000 MG In NS Inj 100 / 100 100 / 100 100 / 100 100 ML @ 200 mls/hr IV.SIG Q12H DOLLY Rx#:[id number] Oral 600 / 600 240 / 240 Output: Urine 1850 / 1850 1100 / 1100 Other: # Voids 5 # Incontinent Voids 0 Date of Last Bowel Movement 06/02/18 06/02/1806/02/18 # Bowel Movements 0 0 - Urinary Catheter Management Indwelling Urethral Catheter Cath placed during this visit: no Reason for continuing: Not indwelling catheter Results - Labs CBC & Chem 7: 06/07/18 05:50 06/07/18 05:50 Laboratory Results - last 24 hr 06/06/18 06/06/18 06/07/18 17:31 21:19 05:50 WBC 4.5 RBC 3.78 L Hgb 9.8 L Hct 33.5 L MCV 88.7 MCH 26.0 L MCHC 29.3 L RDW 21.0 H Plt Count 154 MPV 8.4 Neut % (Auto) 92.8 H Lymph % (Auto) 1.8 L [place] % (Auto) 5.4 Eos % (Auto) 0.0 Baso % (Auto) 0.0 Neut # (Auto) 4.2 Lymph # (Auto) 0.1 L [place] # (Auto) 0.2 Eos # (Auto) 0.0 Baso # (Auto) 0.0 WBC Differential . Differential Comment Auto diff final Sodium Potassium Chloride Carbon Dioxide Anion Gap BUN Creatinine Estimated GFR POC Glucose 183 H 135 H Random Glucose Calcium Phosphorus Magnesium Total Bilirubin AST ALT Alkaline Phosphatase Total Protein Albumin TSH Free T4 06/07/18 06/07/18 06/07/18 05:50 07:29 11:48 WBC RBC Hgb Hct MCV MCH MCHC RDW Plt Count MPV Neut % (Auto) Lymph % (Auto) [place] % (Auto) Eos % (Auto) Baso % (Auto) Neut # (Auto) Lymph # (Auto) [place] # (Auto) Eos # (Auto) Baso # (Auto) WBC Differential Differential Comment Sodium 145 Potassium 3.9 Chloride 99 Carbon Dioxide 36.1 H Anion Gap 10 BUN 88 H Creatinine 1.55 H Estimated GFR 45 L POC Glucose 173 H 148 H Random Glucose 170 H Calcium 8.1 L Phosphorus 4.3 Magnesium 2.8 H Total Bilirubin 0.8 AST 40 H ALT 51 Alkaline Phosphatase 138 H Total Protein 6.2 L Albumin 3.3 L TSH 1.100 Free T4 0.90 Microbiology 06/01/18 16:45 Blood - Peripheral Aerobic Blood Culture - Final Staphylococcus epidermidis 06/01/18 16:45 Blood - Peripheral Anaerobic Blood Culture - Final No growth in 5 days 06/01/18 16:50 Blood - Peripheral Aerobic Blood Culture - Final Staphylococcus auricularis 06/01/18 16:50 Blood - Peripheral Anaerobic Blood Culture - Final No growth in 5 days Assessment and Plan - Assessment (1) DENIS (obstructive sleep apnea) Code(s): G47.33 - Obstructive sleep apnea (adult) (pediatric) Status: Acute (2) Respiratory failure Code(s): J96.90 - Respiratory failure, unspecified, unspecified whether with hypoxia or hypercapnia Status: Acute (3) COPD (chronic obstructive pulmonary disease) Code(s): J44.9 - Chronic obstructive pulmonary disease, unspecified Status: Acute - Plan IMPRESSION COPD RESP FAILURE DENIS PLAN O2 MNEEDED PAP THERAPY BRONCHODILATOR THERAPY INCREASE ACTIVITY (2) Respiratory failure Qualifiers: Chronicity: acute on chronic Respiratory failure complication: hypoxia and hypercapnia Qualified Code(s): J96.21 - Acute and chronic respiratory failure with hypoxia; J96.22 - Acute and chronic respiratory failure with hypercapnia
[2018-06-07 16:25] LABS: Hemoglobin A1c 5.5 % (4.3-6.0)
[2018-06-08 08:01] LABS: Hematocrit 34.4 % (39.0-51.0); Hemoglobin 10.3 gm/dL (13.0-17.0); Lymph # (Auto) 0.1 th/mm3 (1.0-4.8); Lymph % (Auto) 1.7 % (9.0-44.0); Mean Corpuscular Hemoglobin 26.3 pg (27.0-34.0); Mean Corpuscular Volume 87.8 fL (80.0-100.0); Mean Platelet Volume 8.5 fL (7.0-11.0); Mono # (Auto) 0.4 th/mm3 (0.0-0.9); Mono % (Auto) 5.7 % (0.0-8.0); Neut # (Auto) 5.9 th/mm3 (1.8-7.7); Neut % (Auto) 92.6 % (16.0-70.0); Platelet Count 158 th/mm3 (150-450); Red Blood Count 3.91 mil/mm3 (4.50-5.90); Red Cell Distribution Width 20.2 % (11.6-17.2); White Blood Count 6.4 th/mm3 (4.0-11.0)
[2018-06-08 08:10] LABS: Mean Corpuscular HGB Conc 29.9 % (32.0-36.0)
[2018-06-08 08:33] LABS: Alanine Aminotransferase 54 U/L (12-78); Albumin 3.6 g/dL (3.4-5.0); Anion Gap 8 meq/L (5-15); Aspartate Aminotransferase 30 U/L (15-37); Blood Urea Nitrogen 83 mg/dL (7-18); Calcium 8.6 mg/dL (8.5-10.1); Carbon Dioxide 37.9 meq/L (21.0-32.0); Chloride 99 meq/L (98-107); Glomerular Filtration Rate 47 mL/min (>89); Glucose,Random 139 mg/dL (74-106); Magnesium 2.8 mg/dL (1.5-2.5); Phosphorus 3.9 mg/dL (2.5-4.9); Potassium 4.1 meq/L (3.5-5.1); Sodium 145 meq/L (136-145)
[2018-06-08 08:35] LABS: Alkaline Phosphatase 138 U/L (45-117); Total Protein 6.4 g/dL (6.4-8.2)
[2018-06-08] MEDS: Insulin NovoLOG Aspart Correctional Sugar Inj SQ SCH ×4 (08:53→21:19)
[2018-06-08] MEDS: Rivaroxaban 10 MG Tablet PO SCH (08:54)
[2018-06-08] MEDS: Digoxin 250 MCG Tablet PO SCH (08:54)
[2018-06-08] MEDS: Pantoprazole Inj 40 MG Vial IV.PUSH SCH ×2 (08:54→21:19)
[2018-06-08] MEDS: MethylPREDNISolone Sod Succinate Inj 40 MG/ML Vial IV.PUSH SCH ×2 (08:54→21:18)
[2018-06-08] MEDS: Ferrous Sulfate 325 MG Tablet PO SCH ×2 (08:54→21:17)
[2018-06-08] MEDS: Potassium Chloride 25 MEQ Effervescent Tablet PO SCH (08:55)
[2018-06-08] MEDS: dilTIAZem CD 240 MG Capsule PO SCH (08:55)
[2018-06-08] MEDS: Metoprolol Tartrate 100 MG Tablet PO SCH ×2 (08:55→21:18)
[2018-06-08] MEDS: Torsemide 20 MG Tablet PO SCH (08:55)
[2018-06-08] MEDS: Azithromycin 250 MG Tablet PO SCH (08:55)
[2018-06-08] MEDS: Calcium Acetate 667 MG Capsule PO SCH ×3 (08:55→17:01)
[2018-06-08] MEDS: Senna/Docusate Sodium 8.6/50 MG Tablet PO SCH ×2 (08:55→21:18)
[2018-06-08] MEDS: acetaZOLAMIDE 250 MG TABLET PO SCH ×2 (08:56→21:18)
[2018-06-08] MEDS: Budesonide-Formoterol 160/4.5 MCG 6 GM Inhaler INH SCH ×2 (08:58→21:20)
--- NOTE | 2018-06-08 10:14 | P.PNIM ---
Subjective Interval history: f/u; COPD. in no acute distress. denies chest pain or sob. no fever. Physical Exam Vital signs: Vital Signs 06/07/18 11:13 06/07/18 12:00 06/07/18 15:11 Temperature 98 F Pulse Rate 74 74 74 Respiratory Rate 18 16 18 Blood Pressure 168/78 H Pulse Oximetry 98 06/07/18 16:00 06/07/18 18:25 06/07/18 19:51 Temperature 97.9 F Pulse Rate 75 76 Respiratory Rate 17 15 Blood Pressure 165/88 H 146/72 H Pulse Oximetry 97 99 06/07/18 20:00 06/08/18 00:00 06/08/18 01:05 Temperature 97.3 F L 97.1 F L Pulse Rate 75 75 71 Respiratory Rate 20 18 17 Blood Pressure 120/80 155/78 H Pulse Oximetry 97 96 95 06/08/18 03:05 06/08/18 04:00 06/08/18 07:40 Temperature 97.4 F L Pulse Rate 74 79 Respiratory Rate 11 L 20 15 Blood Pressure 154/92 H Pulse Oximetry 97 06/08/18 07:41 06/08/18 08:00 Temperature 97.8 F Pulse Rate 81 Respiratory Rate 20 Blood Pressure 145/77 H Pulse Oximetry 99 Intake & Output 06/07/18 06/08/18 06/08/18 18:59 06:59 18:59 Intake Total 100 / 100 580 / 580 100 / 100 Output Total 2500 / 2500 1600 / 1600 Balance -2400 / -2400 -1020 / -1020 100 / 100 Weight 163.6 kg Intake: IV 100 / 100 100 / 100 100 / 100 Maxipime Inj 1,000 MG In NS Inj 100 / 100 100 / 100 100 / 100 100 ML @ 200 mls/hr IV.SIG Q12H [facility] Rx#:[id number] Oral 480 / 480 Output: Urine 2500 / 2500 1600 / 1600 Other: Date of Last Bowel Movement 06/02/18 - Constitutional no acute distress - Routine Respiratory Exam Present: CTA bilaterally - Routine Cardiovascular Exam Present: RRR - Routine Abdominal Exam Present: soft - Routine Extremities Exam Comments: bilateral pedal edema. - Routine Neurological Exam Present: alert, oriented X3 - Urinary Catheter Management Indwelling Urethral Catheter Cath placed during this visit: no Reason for continuing: Not indwelling catheter Results - Labs CBC & Chem 7: 09/25/18 07:30 06/08/18 07:30 Laboratory Results - last 24 hr 06/07/18 06/07/18 06/07/18 05:50 11:48 17:27 WBC RBC Hgb Hct MCV MCH MCHC RDW Plt Count MPV Neut % (Auto) Lymph % (Auto) [place] % (Auto) Eos % (Auto) Baso % (Auto) Neut # (Auto) Lymph # (Auto) [place] # (Auto) Eos # (Auto) Baso # (Auto) WBC Differential Differential Comment Sodium Potassium Chloride Carbon Dioxide Anion Gap BUN Creatinine Estimated GFR POC Glucose 148 H 145 H Random Glucose Hemoglobin A1c 5.5 Calcium Phosphorus Magnesium Total Bilirubin AST ALT Alkaline Phosphatase B-Natriuretic Peptide Total Protein Albumin 06/08/18 06/08/18 06/08/18 07:30 07:30 07:30 WBC 6.4 RBC 3.91 L Hgb 10.3 L Hct 34.4 L MCV 87.8 MCH 26.3 L MCHC 29.9 L RDW 20.2 H Plt Count 158 MPV 8.5 Neut % (Auto) 92.6 H Lymph % (Auto) 1.7 L [place] % (Auto) 5.7 Eos % (Auto) 0.0 Baso % (Auto) 0.0 Neut # (Auto) 5.9 Lymph # (Auto) 0.1 L [place] # (Auto) 0.4 Eos # (Auto) 0.0 Baso # (Auto) 0.0 WBC Differential . Differential Comment Auto diff final Sodium 145 Potassium 4.1 Chloride 99 Carbon Dioxide 37.9 H Anion Gap 8 BUN 83 H Creatinine 1.51 H Estimated GFR 47 L POC Glucose Random Glucose 139 H Hemoglobin A1c Calcium 8.6 Phosphorus 3.9 Magnesium 2.8 H Total Bilirubin 0.8 AST 30 ALT 54 Alkaline Phosphatase 138 H B-Natriuretic Peptide 1022 H Total Protein 6.4 Albumin 3.6 Assessment and Plan - Plan History of TIA Insomnia Melatonin 5 mg daily for insomnia. Acetaminophen 650 p.o. every 6 hours as needed fever Atrial fibrillation -currently normal sinus rhythm Chronic diastolic heart failure ejection fraction 50-55% Essential hypertension Hyperlipidemia History of ablation [address] Page On atorvastatin 40 mg daily for dyslipidemia. On digoxin 0.25 mg daily. Check level/1.7/ Currently on diltiazem 240 mg daily, metoprolol tartrate 100 mg daily for essential hypertension Currently on bumetanide 1 mg twice daily, torsemide 40 mg daily and acetazolamide 125 mg twice daily Last 2D echocardiogram 12/30 revealed a 50-55%. Mild LVH. Acute hypoxic respiratory failure History of COPD/oxygen dependent Obstructive sleep apnea Currently budesonide/formoterol 160/4.5 2 puffs twice daily Albuterol/ipratropium aerosols every 4 hours with albuterol aerosols every 2 hours as needed for dyspnea As needed BiPAP Last PCO2 was 70 the patient appears comfortable at the present time. We will need sleep study as outpatient Continue aggressive diuresis, have increased fluid restrictions to 1200 mL per day. Gastroesophageal reflux disease Elevated alkaline phosphatase On omeprazole 20 mg daily at home. Currently on pantoprazole 40 milligrams IV twice daily Docusate sodium/senna 1 tablet twice daily for bowel regimen GI consultation for lower GI bleed. Currently monitoring Patient currently refusing EGD and colonoscopy will defer to GI RESTARTed XARELTO BPH Continue tamsulosin 0.4 mg daily Diabetes mellitus 1.5 treat is 1.0 Chronic prednisone use/10 mg daily Sliding scale insulin with aspart insulin before meals at bedtime to maintain euglycemia Holding home medications U100 = Glucose under control in the 170s. Continue to monitor. Chronic kidney disease stage III a Monitor urine output Accurate I's and O's Creatinine appears close to baseline UTI Blood cultures 2 -1 out of 2 gram-positive cocci possibly contaminant. , UA no growth Elevated BMI Weight loss encouraged Access -Utilize peripheral IV. Prophylaxis -GI -pantoprazole -DVT -SCD/holding pharmacological prophylaxis in light of acute lower GI bleed Discharge Planning: dc home with [facility] - tomorrow if stable.
--- NOTE | 2018-06-08 11:01 | P.PN ---
Subjective Interval history: ALERT NAD AT REST Physical Exam Vital signs: Vital Signs 06/07/18 11:13 06/07/18 12:00 06/07/18 15:11 Temperature 98 F Pulse Rate 74 74 74 Respiratory Rate 18 16 18 Blood Pressure 168/78 H Pulse Oximetry 98 06/07/18 16:00 06/07/18 18:25 06/07/18 19:51 Temperature 97.9 F Pulse Rate 75 76 Respiratory Rate 17 15 Blood Pressure 165/88 H 146/72 H Pulse Oximetry 97 99 06/07/18 20:00 06/08/18 00:00 06/08/18 01:05 Temperature 97.3 F L 97.1 F L Pulse Rate 75 75 71 Respiratory Rate 20 18 17 Blood Pressure 120/80 155/78 H Pulse Oximetry 97 96 95 06/08/18 03:05 06/08/18 04:00 06/08/18 07:40 Temperature 97.4 F L Pulse Rate 74 79 Respiratory Rate 11 L 20 15 Blood Pressure 154/92 H Pulse Oximetry 97 06/08/18 07:41 06/08/18 08:00 Temperature 97.8 F Pulse Rate 81 Respiratory Rate 20 Blood Pressure 145/77 H Pulse Oximetry 99 Intake & Output 06/07/18 06/08/18 06/08/18 18:59 06:59 18:59 Intake Total 100 / 100 580 / 580 100 / 100 Output Total 2500 / 2500 1600 / 1600 Balance -2400 / -2400 -1020 / -1020 100 / 100 Weight 163.6 kg Intake: IV 100 / 100 100 / 100 100 / 100 Maxipime Inj 1,000 MG In NS Inj 100 / 100 100 / 100 100 / 100 100 ML @ 200 mls/hr IV.SIG Q12H [facility] Rx#:[id number] Oral 480 / 480 Output: Urine 2500 / 2500 1600 / 1600 Other: Date of Last Bowel Movement 06/02/18 - Urinary Catheter Management Indwelling Urethral Catheter Cath placed during this visit: no Reason for continuing: Not indwelling catheter Results - Labs CBC & Chem 7: 06/08/18 07:30 06/08/18 07:30 Laboratory Results - last 24 hr 06/07/18 06/07/18 06/07/18 05:50 11:48 17:27 WBC RBC Hgb Hct MCV MCH MCHC RDW Plt Count MPV Neut % (Auto) Lymph % (Auto) [place] % (Auto) Eos % (Auto) Baso % (Auto) Neut # (Auto) Lymph # (Auto) [place] # (Auto) Eos # (Auto) Baso # (Auto) WBC Differential Differential Comment Sodium Potassium Chloride Carbon Dioxide Anion Gap BUN Creatinine Estimated GFR POC Glucose 148 H 145 H Random Glucose Hemoglobin A1c 5.5 Calcium Phosphorus Magnesium Total Bilirubin AST ALT Alkaline Phosphatase B-Natriuretic Peptide Total Protein Albumin 06/08/18 06/08/18 06/08/18 07:30 07:30 07:30 WBC 6.4 RBC 3.91 L Hgb 10.3 L Hct 34.4 L MCV 87.8 MCH 26.3 L MCHC 29.9 L RDW 20.2 H Plt Count 158 MPV 8.5 Neut % (Auto) 92.6 H Lymph % (Auto) 1.7 L [place] % (Auto) 5.7 Eos % (Auto) 0.0 Baso % (Auto) 0.0 Neut # (Auto) 5.9 Lymph # (Auto) 0.1 L [place] # (Auto) 0.4 Eos # (Auto) 0.0 Baso # (Auto) 0.0 WBC Differential . Differential Comment Auto diff final Sodium 145 Potassium 4.1 Chloride 99 Carbon Dioxide 37.9 H Anion Gap 8 BUN 83 H Creatinine 1.51 H Estimated GFR 47 L POC Glucose Random Glucose 139 H Hemoglobin A1c Calcium 8.6 Phosphorus 3.9 Magnesium 2.8 H Total Bilirubin 0.8 AST 30 ALT 54 Alkaline Phosphatase 138 H B-Natriuretic Peptide 1022 H Total Protein 6.4 Albumin 3.6 Assessment and Plan - Assessment (1) DENIS (obstructive sleep apnea) Code(s): G47.33 - Obstructive sleep apnea (adult) (pediatric) Status: Acute (2) Respiratory failure Code(s): J96.90 - Respiratory failure, unspecified, unspecified whether with hypoxia or hypercapnia Status: Acute (3) COPD (chronic obstructive pulmonary disease) Code(s): J44.9 - Chronic obstructive pulmonary disease, unspecified Status: Acute - Plan IMPRESSION COPD RESP FAILURE DENIS PLAN O2 MNEEDED PAP THERAPY BRONCHODILATOR THERAPY INCREASE ACTIVITY (2) Respiratory failure Qualifiers: Chronicity: acute on chronic Respiratory failure complication: hypoxia and hypercapnia Qualified Code(s): J96.21 - Acute and chronic respiratory failure with hypoxia; J96.22 - Acute and chronic respiratory failure with hypercapnia (3) COPD (chronic obstructive pulmonary disease) Qualifiers: COPD type: COPD with acute lower respiratory infection Qualified Code(s): J44.0 - Chronic obstructive pulmonary disease with acute lower respiratory infection
[2018-06-09 08:18] VITALS: PULSE 78; RESP 16; O2SAT 99
--- NOTE | 2018-06-09 08:27 | P.PN ---
Subjective Interval history: alert NAD Physical Exam Vital signs: Vital Signs 06/08/18 12:00 06/08/18 16:00 06/08/18 16:17 Temperature 98.1 F Pulse Rate 80 83 81 Respiratory Rate 20 21 Blood Pressure 119/58 L Pulse Oximetry 97 06/08/18 16:30 06/08/18 19:19 06/08/18 20:00 Temperature 98.3 F 97.8 F Pulse Rate 80 67 86 Respiratory Rate 20 17 20 Blood Pressure 144/84 H 137/72 Pulse Oximetry 99 97 98 06/08/18 23:45 06/09/18 00:00 06/09/18 03:31 Temperature 97.9 F Pulse Rate 75 74 77 Respiratory Rate 15 20 15 Blood Pressure 132/72 Pulse Oximetry 98 99 06/09/18 03:39 06/09/18 04:00 06/09/18 08:15 Temperature 97.8 F Pulse Rate 79 78 Respiratory Rate 20 16 Blood Pressure 143/90 H Pulse Oximetry 99 100 99 Intake & Output 06/08/18 06/09/18 06/09/18 18:59 06:59 18:59 Intake Total 100 / 100 1060 / 1060 Output Total 1100 / 1100 2100 / 2100 Balance -1000 / -1000 -1040 / -1040 Weight 163.6 kg Intake: IV 100 / 100 100 / 100 Maxipime Inj 1,000 MG In NS Inj 100 / 100 100 / 100 100 ML @ 200 mls/hr IV.SIG Q12H [facility] Rx#:[id number] Oral 720 / 720 Oral Supplement 240 / 240 Output: Urine 1100 / 1100 2100 / 2100 Other: # Voids 2 # Incontinent Voids 0 Date of Last Bowel Movement 06/08/18 # Bowel Movements 1 1 # Incontinent Bowel Movements 1 Narrative: GENERAL: patient sitting up in bed. Appears comfortable. SKIN: Warm and dry. HEAD: Normocephalic. EYES: No scleral icterus. No injection or drainage. NECK: Supple, trachea midline. No JVD. CARDIOVASCULAR: IRRegular rate and rhythm without murmurs, gallops, or rubs. S1 -S2 no S3 or S4 RESPIRATORY: Breath sounds equal bilaterally.distant breath sounds secondary to body habitus. No accessory muscle use. GASTROINTESTINAL: Abdomen soft, non-tender, nondistended. Morbidly obese MUSCULOSKELETAL: No cyanosis,. +3 peripheral edema, very slightly improved with no weeping today. Chronic edema bilateral lower extremities BRAWNY EDEMA BACK: Nontender without obvious deformity. No CVA tenderness. Insight and judgment is limited Mood and behavior is somewhat appropriate - Urinary Catheter Management Indwelling Urethral Catheter Cath placed during this visit: no Reason for continuing: Not indwelling catheter Results - Labs CBC & Chem 7: 06/08/18 07:30 06/08/18 07:30 Laboratory Results - last 24 hr 06/08/18 06/08/18 06/09/18 07:30 07:30 07:39 Sodium 145 Potassium 4.1 Chloride 99 Carbon Dioxide 37.9 H Anion Gap 8 BUN 83 H Creatinine 1.51 H Estimated GFR 47 L POC Glucose 165 H Random Glucose 139 H Calcium 8.6 Phosphorus 3.9 Magnesium 2.8 H Total Bilirubin 0.8 AST 30 ALT 54 Alkaline Phosphatase 138 H B-Natriuretic Peptide 1022 H Total Protein 6.4 Albumin 3.6 Assessment and Plan - Assessment (1) DENIS (obstructive sleep apnea) Code(s): G47.33 - Obstructive sleep apnea (adult) (pediatric) Status: Acute (2) Respiratory failure Code(s): J96.90 - Respiratory failure, unspecified, unspecified whether with hypoxia or hypercapnia Status: Acute (3) COPD (chronic obstructive pulmonary disease) Code(s): J44.9 - Chronic obstructive pulmonary disease, unspecified Status: Acute - Plan IMPRESSION COPD RESP FAILURE DENIS PLAN O2 NEEDED PAP THERAPY BRONCHODILATOR THERAPY INCREASE ACTIVITY (2) Respiratory failure Qualifiers: Chronicity: acute on chronic Respiratory failure complication: hypoxia and hypercapnia Qualified Code(s): J96.21 - Acute and chronic respiratory failure with hypoxia; J96.22 - Acute and chronic respiratory failure with hypercapnia (3) COPD (chronic obstructive pulmonary disease) Qualifiers: COPD type: COPD with acute lower respiratory infection Qualified Code(s): J44.0 - Chronic obstructive pulmonary disease with acute lower respiratory infection
[2018-06-09 09:00] VITALS: BP 121/68; TEMP 97.5
[2018-06-09] MEDS: Pantoprazole Inj 40 MG Vial IV.PUSH SCH (09:00)
[2018-06-09] MEDS: MethylPREDNISolone Sod Succinate Inj 40 MG/ML Vial IV.PUSH SCH (09:01)
[2018-06-09] MEDS: Metoprolol Tartrate 100 MG Tablet PO SCH (09:01)
[2018-06-09] MEDS: Potassium Chloride 25 MEQ Effervescent Tablet PO SCH (09:01)
[2018-06-09] MEDS: acetaZOLAMIDE 250 MG TABLET PO SCH (09:01)
[2018-06-09] MEDS: Calcium Acetate 667 MG Capsule PO SCH (09:01)
[2018-06-09] MEDS: Rivaroxaban 10 MG Tablet PO SCH (09:02)
[2018-06-09] MEDS: Senna/Docusate Sodium 8.6/50 MG Tablet PO SCH (09:02)
[2018-06-09] MEDS: Azithromycin 250 MG Tablet PO SCH (09:02)
[2018-06-09] MEDS: Torsemide 20 MG Tablet PO SCH (09:02)
[2018-06-09] MEDS: Digoxin 250 MCG Tablet PO SCH (09:02)
[2018-06-09] MEDS: Insulin NovoLOG Aspart Correctional Sugar Inj SQ SCH (09:03)
[2018-06-09] MEDS: Ferrous Sulfate 325 MG Tablet PO SCH (09:03)
[2018-06-09] MEDS: dilTIAZem CD 240 MG Capsule PO SCH (09:03)
[2018-06-09] MEDS: Budesonide-Formoterol 160/4.5 MCG 6 GM Inhaler INH SCH (09:04)
--- NOTE | 2018-06-09 09:24 | P.DS ---
Date of admission: 06/01/18 18:45 Primary care physician: Mars Jarquin MD Brief History from admission: 62-year-old morbidly obese male with CHF, diabetes mellitus, chronic urinary retention, hyperlipidemia, hypertension, ulcer, COPD, that was brought in from [facility] due to increased dyspnea. The patient is on home O2 at 2 L via nasal cannula which brought his saturation up to 98 from 89% on 5 L and then was titrated by EMS to 3L. In the emergency department he was found to be altered with increased confusion which is not normal for the patient. Facility staff also reported that they observed Aj blood from the patient's rectum and he has history of hemorrhoids. The patient denies any symptoms at this time but he does appear slightly confused. After reviewing previous charts it appears that the patient was discharged on the of this month where he was admitted here for diastolic congestive heart failure. He also had multiple admissions due to COPD exacerbation. DS: Summary Hospital Course: History of TIA Insomnia Melatonin 5 mg daily for insomnia. Acetaminophen 650 p.o. every 6 hours as needed fever Atrial fibrillation -currently normal sinus rhythm Chronic diastolic heart failure ejection fraction 50-55% Essential hypertension Hyperlipidemia History of ablation [address] Page On atorvastatin 40 mg daily for dyslipidemia. On digoxin 0.25 mg daily. Check level/1.7/ Currently on diltiazem 240 mg daily, metoprolol tartrate 100 mg daily for essential hypertension Currently on bumetanide 1 mg twice daily, torsemide 40 mg daily and acetazolamide 125 mg twice daily Last 2D echocardiogram 12/30 revealed a 50-55%. Mild LVH. Acute hypoxic respiratory failure-resolved. History of COPD/oxygen dependent Obstructive sleep apnea Currently budesonide/formoterol 160/4.5 2 puffs twice daily Albuterol/ipratropium aerosols every 4 hours with albuterol aerosols every 2 hours as needed for dyspnea As needed BiPAP Last PCO2 was 70 the patient appears comfortable at the present time. We will need sleep study as outpatient Gastroesophageal reflux disease Elevated alkaline phosphatase On omeprazole 20 mg daily at home. Currently on pantoprazole 40 milligrams IV twice daily Docusate sodium/senna 1 tablet twice daily for bowel regimen GI consultation for lower GI bleed. Currently monitoring Patient currently refusing EGD and colonoscopy will defer to GI RESTARTed XARELTO BPH Continue tamsulosin 0.4 mg daily Diabetes mellitus 1.5 treat is 1.0 Chronic prednisone use/10 mg daily Sliding scale insulin with aspart insulin before meals at bedtime to maintain euglycemia Holding home medications U100 = Glucose under control in the 170s. Continue to monitor. Chronic kidney disease stage III a Monitor urine output Accurate I's and O's Creatinine appears close to baseline UTI Blood cultures 2 -1 out of 2 gram-positive cocci possibly contaminant. , UA no growth Elevated BMI Weight loss encouraged - Time Spent with Patient Total time spent providing and/or coordinating discharge services: Less than 30 minutes - Quality: VTE Deep Vein Thrombosis/Pulmonary Embolism Present on Admission: No Exam Vital signs: Vital Signs 06/08/18 12:00 06/08/18 16:00 06/08/18 16:17 Temperature 98.1 F Pulse Rate 80 83 81 Respiratory Rate 20 21 Blood Pressure 119/58 L Pulse Oximetry 97 06/08/18 16:30 06/08/18 19:19 06/08/18 20:00 Temperature 98.3 F 97.8 F Pulse Rate 80 67 86 Respiratory Rate 20 17 20 Blood Pressure 144/84 H 137/72 Pulse Oximetry 99 97 98 06/08/18 23:45 06/09/18 00:00 06/09/18 03:31 Temperature 97.9 F Pulse Rate 75 74 77 Respiratory Rate 15 20 15 Blood Pressure 132/72 Pulse Oximetry 98 99 06/09/18 03:39 06/09/18 04:00 06/09/18 08:00 Temperature 97.8 F 97.5 F L Pulse Rate 79 82 Respiratory Rate 20 17 Blood Pressure 143/90 H 121/68 Pulse Oximetry 99 100 100 06/09/18 08:15 Temperature Pulse Rate 78 Respiratory Rate 16 Blood Pressure Pulse Oximetry 99 Intake & Output 06/08/18 06/09/18 06/09/18 18:59 06:59 18:59 Intake Total 100 / 100 1060 / 1060 Output Total 1100 / 1100 2100 / 2100 Balance -1000 / -1000 -1040 / -1040 Weight 163.6 kg Intake: IV 100 / 100 100 / 100 Maxipime Inj 1,000 MG In NS Inj 100 / 100 100 / 100 100 ML @ 200 mls/hr IV.SIG Q12H [facility] Rx#:[id number] Oral 720 / 720 Oral Supplement 240 / 240 Output: Urine 1100 / 1100 2100 / 2100 Other: # Voids 2 # Incontinent Voids 0 Date of Last Bowel Movement 06/08/18 # Bowel Movements 1 1 # Incontinent Bowel Movements 1 - Constitutional no acute distress - Routine Respiratory Exam Present: CTA bilaterally - Routine Cardiovascular Exam Present: RRR - Routine Abdominal Exam Present: soft - Routine Extremities Exam Comments: no edema. - Routine Neurological Exam Present: alert, oriented X3 Results Procedures completed during hospitalization: none Labs on day of discharge: Labs from last 24 hours 06/09/18 07:39 POC Glucose 165 H - Impressions ITS Impressions Chest CT 06/01/18 18:17 CONCLUSION: 1. Moderate sized partially loculated right pleural effusion. Trace left pleural fluid. Partial compressive atelectasis of the right lung. 2. Moderate coronary calcifications. Chest X-Ray 06/03/18 06:00 CONCLUSION: Improving aeration Discharge Plan - Discharge Condition Condition: Critical - Physicians Team Primary Care Provider: Mars Jarquin Attending Provider: Chery Amaya Other Providers: Yordan Farr MD ; [employer] ; Edd Lindo MD ; [facility]
== END 2018-06-09 10:35 | disposition home health service (06) ==
LOC: NEPC 14:02 → NEDA 18:45 → HIMC 20:35 → N04 06-07 18:50
PROVIDERS: ADMIT Internal Medicine; ATTEND Internal Medicine

== ENCOUNTER 2018-06-10 01:32 | Observation (INO) ==
--- NOTE | 2018-06-10 02:08 | ED ---
HPI General Chief Complaint: Respiratory Symptoms Stated Complaint: resp Time Seen by Provider: 06/10/18 01:42 Source: patient and EMS Mode of arrival: ambulatory Limitations: no limitations History of Present Illness 62-year-old male complains of shortness of breath. Patient has history of CHF, COPD, diabetes, chronic urinary retention, hyperlipidemia, hypertension, coronary lower extremity venous stasis ulcer. Patient was admitted to [facility] June 01 and discharge June 09 for acute hypoxic respiratory failure and GI bleed. Patient refused colonoscopy and GI workup. Patient has history of atrial fibrillation and was on Xarelto. Patient improved on respiratory treatment and was discharged home. Patient states that he has not been able to use the nebulizer at home since discharge. Patient states that he has progressively short of breath for the past few days and is worse this evening. EMS was called. Patient's O2 saturation was in the 80s. Patient was given DuoNeb treatment and oxygen prior to arrival. Patient denies any headache. Patient denies any chest pain. Patient denies abdominal pain. Patient states that he has intermittent rectal bleeding since discharge. Patient denies any fever chills. Patient states that he slipped off the bed this evening. Patient did not injure himself during the fall. Patient has history of CHF with ejection fraction of 50-55%. MD Complaint: shortness of breath Onset (ago): day(s) Context: medication noncompliance Severity: moderate Consistency/Duration: constant Relieving factors: bronchodilators Exacerbating factors: nothing Known history of: COPD and congestive heart failure Associated symptoms: denies other symptoms Treatment prior to arrival: oxygen and bronchodilator Related Data Home Medications Medication Instructions Recorded Confirmed acetazolamide 125 mg PO BID 05/22/18 06/01/18 albuterol sulfate [Ventolin HFA] 1 puff INHALATION Q4HR PRN 05/22/18 06/01/18 atorvastatin 40 mg PO HS 05/22/18 06/01/18 budesonide-formoterol [Symbicort] 2 puff INHALATION BID 05/22/18 06/01/18 calcium acetate 667 mg PO TID 05/22/18 06/01/18 digoxin 0.25 mg PO DAILY 05/22/18 06/01/18 diltiazem HCl [Cardizem LA] 240 mg PO DAILY 05/22/18 06/01/18 ipratropium bromide [Atrovent HFA] 1 puff INHALATION Q6HR PRN 05/22/18 06/01/18 metoprolol tartrate 100 mg PO BID 05/22/18 06/01/18 omeprazole 20 mg PO DAILY 05/22/18 06/01/18 potassium chloride [Klor-Con] 1 packet PO DAILY 05/22/18 06/01/18 rivaroxaban 10 mg PO DAILY 05/22/18 06/01/18 torsemide 40 mg PO DAILY 05/22/18 06/01/18 acetaminophen [Tylenol] 650 mg PO Q4H PRN 06/01/18 06/01/18 insulin aspart U-100 [Novolog 2 - 12 unit SUB-Q ACHS 06/01/18 06/01/18 Flexpen U-100 Insulin] Previous Rx's Medication Instructions Recorded ferrous sulfate [FeroSul] 325 mg PO BID #60 tab 05/12/18 bumetanide 1 mg PO BID #0 tab 05/26/18 melatonin 5 mg PO HS PRN tab 05/26/18 tamsulosin 0.4 mg PO DAILY cap 05/26/18 prednisone 10 mg PO DIRECTED 30 Days #30 06/08/18 tab albuterol sulfate 1.25 mg INHALATION Q4-6H PRN 30 06/09/18 Days ml Allergies Allergy/AdvReac Type Severity Reaction Status Date / Time No Known Allergies Allergy Verified 06/10/18 01:53 Review of Systems ROS: all other systems reviewed are negative [facility] Medical History Medical History Hyperlipidemia (Acute) Hypertension (Acute) DENIS (obstructive sleep apnea) (Acute) COPD (chronic obstructive pulmonary disease) (Acute) Atrial fibrillation (Acute) CHF (congestive heart failure) (Acute) Diabetes mellitus (Acute) Surgical History Surgical History History of surgery on arm (Acute) Hx of tonsillectomy (Acute) H/O cardiac radiofrequency ablation (Acute) History of appendectomy (Acute) Family History Family History Father Diabetes mellitus Hypertension Mother Diabetes mellitus Social History Social History Substance History: No History of Abuse Second Hand Smoke Exposure: No Smoking Status: Never smoker How Often Do You Have a Drink Containing Alcohol: 2 to 3 times a week Recent Travel in [facility] within the Last 8 Weeks: No Recent Out of Country Travel within the Last 8 Weeks: No Immunization History Tetanus Immunization: <5 Years Hx Influenza Vaccine This Season: No Exam Narrative Exam Narrative: GENERAL: Well-nourished, well-developed patient. SKIN: Focused skin assessment warm/dry. HEAD: Normocephalic. EYES: No scleral icterus. No injection or drainage. NECK: Supple, trachea midline. No JVD or lymphadenopathy. CARDIOVASCULAR: Regular rate and rhythm without murmurs, gallops, or rubs. RESPIRATORY: Breath sounds equal bilaterally. No accessory muscle use. Patient has mild expiratory wheezes with diffuse rhonchi bibasilar. GASTROINTESTINAL: Abdomen soft, non-tender, nondistended. MUSCULOSKELETAL: +1-+2 pitting edema lower extremity with venous stasis dermatitis bilateral lower extremity. BACK: Nontender without obvious deformity. No CVA tenderness. Neurologic exam normal. Course Initial Documented Vital Signs Temperature 97.9 F 06/10/18 01:53 Pulse Rate 92 H 06/10/18 01:53 Respiratory Rate 20 06/10/18 01:53 Blood Pressure 117/62 06/10/18 01:53 Pulse Oximetry 95 06/10/18 01:53 Last Documented Vital Signs Temperature 97.9 F 06/10/18 01:53 Pulse Rate 93 H 06/10/18 02:14 Respiratory Rate 20 06/10/18 02:14 Blood Pressure 117/62 06/10/18 01:53 Pulse Oximetry 95 06/10/18 01:53 Medical Decision Making [facility] Narrative Medical decision making narrative: 62-year-old male with shortness of breath. History of COPD and CHF. Patient was given albuterol treatment by EMS on the way to the ED. Albuterol with Atrovent unit dose treatment x1. Medical Screen Exam Complete: Yes Emergency Medical Condition: Yes Lab Data Lab results reviewed: Yes I reviewed the patient's lab results. Result diagrams: 06/10/18 02:25 06/10/18 02:25 Lab Results 06/10/18 06/10/18 06/10/18 Range/Units 02:05 02:25 02:25 WBC 11.2 H (4.0-11.0) th/mm3 RBC 3.77 L (4.50-5.90) mil/mm3 Hgb 9.7 L (13.0-17.0) gm/dL Hct 32.9 L (39.0-51.0) % MCV 87.4 (80.0-100.0) fL MCH 25.8 L (27.0-34.0) pg MCHC 29.5 L (32.0-36.0) % RDW 20.6 H (11.6-17.2) % Plt Count 152 (150-450) th/mm3 MPV 8.6 (7.0-11.0) fL Neut % (Auto) 85.5 H (16.0-70.0) % Lymph % (Auto) 6.5 L (9.0-44.0) % [place] % (Auto) 7.3 (0.0-8.0) % Eos % (Auto) 0.2 (0.0-4.0) % Baso % (Auto) 0.5 (0.0-2.0) % Neut # (Auto) 9.6 H (1.8-7.7) th/mm3 Lymph # (Auto) 0.7 L (1.0-4.8) th/mm3 [place] # (Auto) 0.8 (0.0-0.9) th/mm3 Eos # (Auto) 0.0 (0.0-0.4) th/mm3 Baso # (Auto) 0.1 (0.0-0.2) th/mm3 WBC Differential . Differential Comment Auto diff final PT (9.8-11.6) sec INR Ratio APTT (24.3-30.1) sec Sodium 145 (136-145) meq/L Potassium 3.4 L (3.5-5.1) meq/L Chloride 100 (98-107) meq/L Carbon Dioxide 40.0 H (21.0-32.0) meq/L Anion Gap 5 (5-15) meq/L BUN 82 H (7-18) mg/dL Creatinine 1.50 H (0.60-1.30) mg/dL Estimated GFR 47 L (>89) mL/min Random Glucose 121 H (74-106) mg/dL Calcium 9.0 (8.5-10.1) mg/dL Total Bilirubin 1.1 H (0.2-1.0) mg/dL AST 40 H (15-37) U/L ALT 59 (12-78) U/L Alkaline Phosphatase 157 H (45-117) U/L B-Natriuretic Peptide (0-100) pg/mL Total Protein 7.1 D (6.4-8.2) g/dL Albumin 4.0 (3.4-5.0) g/dL Urine Color Yellow (Yellw/Straw) Urine Clarity Clear (Clear) Urine pH 6.0 (5.0-8.5) Ur Specific [place] 1.009 (1.002-1.035) Urine Protein Negative (Neg-Trace) mg/dL Urine Glucose (UA) Negative (Negative) mg/dL Urine Ketones Negative (Negative) mg/dL Urine Occult Blood Small H (Negative) Urine Nitrate Negative (Negative) Urine Bilirubin Negative (Negative) Urine Urobilinogen 4 or greater (Less than 2) mg/dL Ur Leukocyte Esterase Trace H (Negative) Urine RBC 1 (0-3) /hpf Urine WBC 1 (0-5) /hpf Ur Squamous Epith Cells <1 (0-5) /hpf Hyaline Casts 5 (0-3) /lpf Micro UA Comment Culture not ind Ur Microscopic Review Not Reportable Urine Culture Comments Culture not ind Digoxin (0.8-2.0) ng/mL 06/10/18 06/10/18 06/10/18 Range/Units 02:25 02:25 02:25 WBC (4.0-11.0) th/mm3 RBC (4.50-5.90) mil/mm3 Hgb (13.0-17.0) gm/dL Hct (39.0-51.0) % MCV (80.0-100.0) fL MCH (27.0-34.0) pg MCHC (32.0-36.0) % RDW (11.6-17.2) % Plt Count (150-450) th/mm3 MPV (7.0-11.0) fL Neut % (Auto) (16.0-70.0) % Lymph % (Auto) (9.0-44.0) % [place] % (Auto) (0.0-8.0) % Eos % (Auto) (0.0-4.0) % Baso % (Auto) (0.0-2.0) % Neut # (Auto) (1.8-7.7) th/mm3 Lymph # (Auto) (1.0-4.8) th/mm3 [place] # (Auto) (0.0-0.9) th/mm3 Eos # (Auto) (0.0-0.4) th/mm3 Baso # (Auto) (0.0-0.2) th/mm3 WBC Differential Differential Comment PT 12.3 H (9.8-11.6) sec INR 1.2 Ratio APTT 22.2 L (24.3-30.1) sec Sodium (136-145) meq/L Potassium (3.5-5.1) meq/L Chloride (98-107) meq/L Carbon Dioxide (21.0-32.0) meq/L Anion Gap (5-15) meq/L BUN (7-18) mg/dL Creatinine (0.60-1.30) mg/dL Estimated GFR (>89) mL/min Random Glucose (74-106) mg/dL Calcium (8.5-10.1) mg/dL Total Bilirubin (0.2-1.0) mg/dL AST (15-37) U/L ALT (12-78) U/L Alkaline Phosphatase (45-117) U/L B-Natriuretic Peptide 722 H (0-100) pg/mL Total Protein (6.4-8.2) g/dL Albumin (3.4-5.0) g/dL Urine Color (Yellw/Straw) Urine Clarity (Clear) Urine pH (5.0-8.5) Ur Specific [place] (1.002-1.035) Urine Protein (Neg-Trace) mg/dL Urine Glucose (UA) (Negative) mg/dL Urine Ketones (Negative) mg/dL Urine Occult Blood (Negative) Urine Nitrate (Negative) Urine Bilirubin (Negative) Urine Urobilinogen (Less than 2) mg/dL Ur Leukocyte Esterase (Negative) Urine RBC (0-3) /hpf Urine WBC (0-5) /hpf Ur Squamous Epith Cells (0-5) /hpf Hyaline Casts (0-3) /lpf Micro UA Comment Ur Microscopic Review Urine Culture Comments Digoxin 1.4 (0.8-2.0) ng/mL Imaging Data Attestation: I personally reviewed and interpreted this imaging study as follows : Radiologist's impression: Chest X-Ray 06/10/18 01:56 CONCLUSION: Persistent bilateral lower lung zone parenchymal opacity and small bilateral pleural effusions. No significant interval change. Discharge Plan Discharge Disposition Patient Disposition: 30 Still Patient Discharge Details Diagnosis: Acute exacerbation of chronic obstructive pulmonary disease (COPD), CHF ( congestive heart failure), Chronic kidney disease (CKD) stage G3a/A2, moderately decreased glomerular filtration rate (GFR) between 45-59 mL/min/1.73 square meter and albuminuria creatinine ratio between 30-299 mg/g Physicians Team ED Provider: Ryan Jameson Primary Care Provider: NON STAFF,PROVIDER Rxs /Orders / Referrals /Forms Prescriptions: No Action ferrous sulfate [FeroSul] 325 mg (65 mg iron) Tablet 325 mg PO BID Qty: 60 RF: 0 acetaminophen [Tylenol] 325 mg Tablet 650 mg PO Q4H PRN (Reason: Pain) RF: 0 insulin aspart U-100 [Novolog Flexpen U-100 Insulin] 100 unit/mL Insulin Pen 2 - 12 unit SUB-Q ACHS RF: 0 prednisone 10 mg Tablet 10 mg PO DIRECTED 30 Days Qty: 30 RF: 0 albuterol sulfate 1.25 mg/3 mL Solution For Nebulization 1.25 mg INHALATION Q4-6H PRN (Reason: sob) 30 Days RF: 0 atorvastatin 40 mg Tablet 40 mg PO HS RF: 0 torsemide 20 mg Tablet 40 mg PO DAILY RF: 0 metoprolol tartrate 100 mg Tablet 100 mg PO BID RF: 0 acetazolamide 125 mg Tablet 125 mg PO BID RF: 0 calcium acetate 667 mg Tablet 667 mg PO TID RF: 0 digoxin 250 mcg Tablet 0.25 mg PO DAILY RF: 0 potassium chloride [Klor-Con] 20 mEq Packet 1 packet PO DAILY RF: 0 albuterol sulfate [Ventolin HFA] 90 mcg/actuation Hfa Aerosol Inhaler 1 puff Inhalation Q4HR PRN (Reason: Shortness Of Breath) RF: 0 diltiazem HCl [Cardizem LA] 240 mg Tablet Extended Release 24 Hr 240 mg PO DAILY RF: 0 ipratropium bromide [Atrovent HFA] 17 mcg/actuation Hfa Aerosol Inhaler 1 puff Inhalation Q6HR PRN (Reason: Shortness Of Breath) RF: 0 budesonide-formoterol [Symbicort] 160-4.5 mcg/actuation Hfa Aerosol Inhaler 2 puff Inhalation BID RF: 0 omeprazole 20 mg Tablet,Delayed Release (Dr/Ec) 20 mg PO DAILY RF: 0 rivaroxaban 10 mg Tablet 10 mg PO DAILY RF: 0 tamsulosin 0.4 mg Capsule,Extended Release 24hr 0.4 mg PO DAILY RF: 0 melatonin 5 mg Tablet 5 mg PO HS PRN (Reason: Insomnia) RF: 0 bumetanide 1 mg Tablet 1 mg PO BID Qty: 0 RF: 0 Status ED Status: With Doctor
[2018-06-10 02:18] LABS: Bilirubin,Urine Negative (Negative); Clarity,Urine Clear (Clear); Color,Urine Yellow (Yellw/Straw); Glucose,Urine (UA) Negative (Negative); Hyaline Casts,Urine 5 /lpf (0-3); Leukocyte Esterase,Urine Trace (Negative); Nitrite,Urine Negative (Negative); Specific Gravity,Urine 1.009 (1.002-1.035); Squamous Epithelial Cell,Urine <1 /hpf (0-5); Urobilinogen,Urine 4 or Greater mg/dL (Less than 2)
--- NOTE | 2018-06-10 02:27 | XR ---
EXAM DATE: 06/10/2018 1:56 AM EDT AGE/SEX: 62 years / Male INDICATIONS: Shortness of breath. CLINICAL DATA: This is the patient's initial encounter. Patient reports that signs and symptoms have been present for 1 day and indicates a pain score of 0/10. MEDICAL/SURGICAL HISTORY: Congestive heart failure. Chronic obstructive pulmonary disease. Di abetes. A-fib. Renal disease. Appendectomy. Tonsillectomy. COMPARISON: [facility] [place], CHEST 1V SINGLE AP, 06/03/2018. . FINDINGS: Single AP view the chest. Bilateral lower lung zone opacity again seen along with small bilateral ple ural effusions. Cardiac silhouette remains enlarged. No significant interval change. No evidence of p neumothorax. CONCLUSION: Persistent bilateral lower lung zone parenchymal opacity and small bilateral pleural effusions. No si gnificant interval change. Electronically signed by: Andrew Wilks MD 06/10/2018 2:25 AM EDT
[2018-06-10 02:36] LABS: Baso # (Auto) 0.1 th/mm3 (0.0-0.2); Baso % (Auto) 0.5 % (0.0-2.0); Eos % (Auto) 0.2 % (0.0-4.0); Hematocrit 32.9 % (39.0-51.0); Hemoglobin 9.7 gm/dL (13.0-17.0); Lymph # (Auto) 0.7 th/mm3 (1.0-4.8); Lymph % (Auto) 6.5 % (9.0-44.0); Mean Corpuscular Hemoglobin 25.8 pg (27.0-34.0); Mean Corpuscular Volume 87.4 fL (80.0-100.0); Mean Platelet Volume 8.6 fL (7.0-11.0); Mono # (Auto) 0.8 th/mm3 (0.0-0.9); Mono % (Auto) 7.3 % (0.0-8.0); Neut # (Auto) 9.6 th/mm3 (1.8-7.7); Neut % (Auto) 85.5 % (16.0-70.0); Platelet Count 152 th/mm3 (150-450); Red Blood Count 3.77 mil/mm3 (4.50-5.90); Red Cell Distribution Width 20.6 % (11.6-17.2); White Blood Count 11.2 th/mm3 (4.0-11.0)
[2018-06-10 02:40] LABS: Mean Corpuscular HGB Conc 29.5 % (32.0-36.0)
[2018-06-10 02:48] LABS: Activated Partial Thrombo Time 22.2 sec (24.3-30.1); INR 1.2 Ratio; Prothrombin Time 12.3 sec (9.8-11.6)
[2018-06-10 03:00] LABS: Alanine Aminotransferase 59 U/L (12-78); Anion Gap 5 meq/L (5-15); Aspartate Aminotransferase 40 U/L (15-37); Blood Urea Nitrogen 82 mg/dL (7-18); Chloride 100 meq/L (98-107); Glomerular Filtration Rate 47 mL/min (>89); Glucose,Random 121 mg/dL (74-106); Potassium 3.4 meq/L (3.5-5.1); Sodium 145 meq/L (136-145)
[2018-06-10 03:02] LABS: Alkaline Phosphatase 157 U/L (45-117); Total Protein 7.1 g/dL (6.4-8.2)
[2018-06-10] MEDS ORDERED: Bisacodyl 10 MG Supp RECTAL PRN (03:56)
[2018-06-10] MEDS ORDERED: ALBUTEROL INHALATION PRN (04:54)
[2018-06-10] MEDS ORDERED: Melatonin 5 MG Tablet PO PRN (04:54)
--- NOTE | 2018-06-10 04:56 | P.HPIM ---
History of Present Illness Service: [facility] Primary Care Physician: PROVIDER NON STAFF Chief Complaint: dyspnea History of Present Illness: 62 y/o male with a history of chf, copd, htn, hld, ckd, dm and afib presented to the ED with complaints of shortness of breath. He was recently admitted on June 01 for respiratory failure and a GI bleed and discharged on June 09. Patient improved and returned home, he states at home he was not able to use his nebulizer and became increasing short of breath. He denies any chest pain. Upon arrival patient was hypoxic with an o2 sat in the 80s. He states he uses 3 L o2 at night. Denies any fever or chills. He does continue to have rectal bleeding but declined a gi workup last admission. Inpatient Certification: I certify that the inpatient services were ordered in accordance with Medicare regulations governing the order. This includes certification that hospital inpatient services are reasonable and necessary and in the case of services not specified as inpatient-only under 42 CFR 419.22(n), that they are appropriately provided as inpatient services in accordance to with the 2-midnight benchmark under 43 CFR 412.3(e) Estimated Total Length of Stay (Days): 3 Plans for Post Hospital Care: SNF Review of Systems All other systems reviewed negative except as stated in HPI PMFSH - History History Provided By: Patient - Medical History Medical History: Medical History (Last Reviewed 06/10/18 @ 04:44 by JUNIOR Buck) Hyperlipidemia (Acute) Hypertension (Acute) DENIS (obstructive sleep apnea) (Acute) COPD (chronic obstructive pulmonary disease) (Acute) Atrial fibrillation CHF (congestive heart failure) Diabetes mellitus - Surgical History Surgical History: Surgical History (Last Reviewed 06/10/18 @ 04:44 by JUNIOR Buck) History of surgery on arm (Acute) Hx of tonsillectomy (Acute) H/O cardiac radiofrequency ablation (Acute) History of appendectomy (Acute) - Family History Family History: Family History (Last Reviewed 06/10/18 @ 04:44 by JUNIOR Buck) Father Diabetes mellitus Hypertension Mother Diabetes mellitus - Social History I have reviewed the patient's Social History: Yes - Tobacco History Second Hand Smoke Exposure: No Smoking Status: Never smoker - Alcohol History How Often Do You Have a Drink Containing Alcohol: 2 to 3 times a week - Substance Use History Substance History: No History of Abuse - Travel History Recent Travel in the [place] Within the Last 8 Weeks: No Recent Travel Out of the Country Within the Last 8 Weeks: No - Immunization History Tetanus Immunization: <5 Years Hx Influenza Vaccine This Season: No Medications and Allergies Active Medications: Active Medications Al Hydroxide/Mg Hydroxide (Milk Of Magnesia Liq) 30 ml PO Q12H PRN PRN Reason: Mild Constipation Bisacodyl (Dulcolax Supp) 10 mg RECTAL DAILY PRN PRN Reason: SEVERE CONSITIPATION Lactulose (Lactulose Liq) 30 ml PO DAILY PRN PRN Reason: SEVERE CONSITIPATION Sennosides (Senokot) 17.2 mg PO Q12H PRN PRN Reason: Moderate Constipation Allergies Allergy/AdvReac Type Severity Reaction Status Date / Time No Known Allergies Allergy Verified 06/10/18 01:53 Home Medications Medication Instructions Recorded Confirmed Type acetazolamide 125 mg PO BID 05/22/18 06/01/18 History albuterol sulfate [Ventolin HFA] 1 puff INHALATION Q4HR PRN 05/22/18 06/01/18 History atorvastatin 40 mg PO HS 05/22/18 06/01/18 History budesonide-formoterol [Symbicort] 2 puff INHALATION BID 05/22/18 06/01/18 History calcium acetate 667 mg PO TID 05/22/18 06/01/18 History digoxin 0.25 mg PO DAILY 05/22/18 06/01/18 History diltiazem HCl [Cardizem LA] 240 mg PO DAILY 05/22/18 06/01/18 History ipratropium bromide [Atrovent HFA] 1 puff INHALATION Q6HR PRN 05/22/18 06/01/18 History metoprolol tartrate 100 mg PO BID 05/22/18 06/01/18 History omeprazole 20 mg PO DAILY 05/22/18 06/01/18 History potassium chloride [Klor-Con] 1 packet PO DAILY 05/22/18 06/01/18 History rivaroxaban 10 mg PO DAILY 05/22/18 06/01/18 History torsemide 40 mg PO DAILY 05/22/18 06/01/18 History acetaminophen [Tylenol] 650 mg PO Q4H PRN 06/01/18 06/01/18 History insulin aspart U-100 [Novolog 2 - 12 unit SUB-Q ACHS 06/01/18 06/01/18 History Flexpen U-100 Insulin] Exam Vital signs: Vital Signs 06/10/18 01:53 06/10/18 02:14 06/10/18 03:57 Temperature 97.9 F Pulse Rate 92 H 93 H 89 Respiratory Rate 20 20 16 Blood Pressure 117/62 103/54 L Pulse Oximetry 95 95 Intake & Output 06/09/18 06/09/18 06/10/18 06:59 18:59 06:59 Weight 136.356 kg Narrative: GENERAL: This is a well-nourished, well-developed patient, in no apparent distress. CARDIOVASCULAR: Regular rate and rhythm without murmurs, gallops, or rubs. RESPIRATORY: Diminished bases, scattered wheezes, on 3L GASTROINTESTINAL: Abdomen soft, non-tender, nondistended. Normal active bowel sounds MUSCULOSKELETAL: Extremities without clubbing, cyanosis, or edema. NEURO: Alert & Oriented x4 to person, place, time, situation. Moves all ext x4 Results - Labs CBC & Chem 7: 06/10/18 02:25 06/10/18 02:25 Labs: Short CBC 06/10/18 Range/Units 02:25 WBC 11.2 H (4.0-11.0) th/mm3 Hgb 9.7 L (13.0-17.0) gm/dL Hct 32.9 L (39.0-51.0) % Plt Count 152 (150-450) th/mm3 BMP 06/10/18 02:25 Sodium 145 Potassium 3.4 L Chloride 100 Carbon Dioxide 40.0 H BUN 82 H Creatinine 1.50 H Calcium 9.0 Liver Function 06/10/18 Range/Units 02:25 Total Bilirubin 1.1 H (0.2-1.0) mg/dL AST 40 H (15-37) U/L ALT 59 (12-78) U/L Alkaline Phosphatase 157 H (45-117) U/L Albumin 4.0 (3.4-5.0) g/dL Urine 06/10/18 Range/Units 02:05 Urine Color Yellow (Yellw/Straw) Urine Clarity Clear (Clear) Urine pH 6.0 (5.0-8.5) Ur Specific [place] 1.009 (1.002-1.035) Urine Protein Negative (Neg-Trace) mg/dL Urine Glucose (UA) Negative (Negative) mg/dL - Imaging Impressions Chest X-Ray 06/10/18 01:56 CONCLUSION: Persistent bilateral lower lung zone parenchymal opacity and small bilateral pleural effusions. No significant interval change. Caprini VTE Risk Assessment Caprini VTE Risk Assessment: Moderate/High Risk (score >= 2) Caprini Risk Assessment Model: Point Value = 1 Point Value = 2 Point Value = 3 Point Value = 5 Age 41-60 Minor surgery BMI > 25 kg/m2 Swollen legs Varicose veins or History of unexplained or recurrent spontaneous Oral contraceptives or hormone replacement Sepsis (< 1 month) Serious lung disease, including pneumonia (< 1 month) Abnormal pulmonary function Acute myocardial infarction Congestive heart failure (< 1 month) History of inflammatory bowel disease Medical patient at bed rest Age 61-74 Arthroscopic surgery Major open surgery (> 45 min) Laparoscopic surgery (> 45 min) Malignancy Confined to bed (> 72 hours) Immobilizing plaster cast Central venous access Age >= 75 History of VTE Family history of VTE Factor V Leiden Prothrombin [id number] Lupus anticoagulant Anticardiolipin antibodies Elevated serum homocysteine Heparin-induced thrombocytopenia Other congenital or acquired thrombophilia Stroke (< 1 month) Elective arthroplasty Hip, pelvis, or leg fracture Acute spinal cord injury (< 1 month) Prophylaxis Regimen: Total Risk Factor Score Risk Level Prophylaxis Regimen 0-1 Low Early ambulation 2 Moderate Order ONE of the following: *Sequential Compression Device (SCD) *Heparin 5000 units SQ BID 3-4 Higher Order ONE of the following medications: *Heparin 5000 units SQ TID *Enoxaparin/Lovenox 40 mg SQ daily (WT < 150 kg, CrCl > 30 mL/min) *Enoxaparin/Lovenox 30 mg SQ daily (WT < 150 kg, CrCl > 10-29 mL/min) *Enoxaparin/Lovenox 30 mg SQ BID (WT < 150 kg, CrCl > 30 mL/min) AND/OR *Sequential Compression Device (SCD) 5 or more Highest Order ONE of the following medications: *Heparin 5000 units SQ TID (Preferred with Epidurals) *Enoxaparin/Lovenox 40 mg SQ daily (WT < 150 kg, CrCl > 30 mL/min) *Enoxaparin/Lovenox 30 mg SQ daily (WT < 150 kg, CrCl > 10-29 mL/min) *Enoxaparin/Lovenox 30 mg SQ BID (WT < 150 kg, CrCl > 30 mL/min) AND *Sequential Compression Device (SCD) Assessment and Plan - Plan 62 y/o male with a history of chf, copd, htn, hld, ckd, dm and afib presented to the ED with complaints of shortness of breath. Acute respiratory failure, hypoxic o2 in the 80s -Duoneb prn, home inhalers ordered -Walk test ordered -PT/Ot eval -Case management for HHC, patient wishes to try HHC over SNF DM, chronic -Accu checks with SSI -Diabetic diet HTN, chronic -Resume home medications, monitor vitals CHF, chronic BNP 722, down from 1022 on 06/08 -Cont home diuretics Afib, chronic -Monitor telemetry -Resume home medications DVT prophylaxis: Ulysses Discussed Condition With: Patient and RN
[2018-06-10] MEDS ORDERED: Dextrose 50% in Water 50 ML Vial IV.PUSH PRN (05:04)
--- NOTE | 2018-06-10 05:09 | P.DCO ---
- Diagnosis (2) CHF (congestive heart failure) - Physical Therapy Order: Evaluate and treat, Improve ambulation, Strength and gait training - Occupational Therapy Order: Evaluate and treat - Home Health Nursing Order: Signs/symptoms of disease process, CHF education, Oxygen administration education, Nursing assessment with vital signs - Case Management Consult No - Certification I have seen patient Zeeshan Nix on 06/10/18. My clinical findings support the need for the requested home health care services because: Limited mobility due to disease progression, Patient has SOB, Deconditioned with increased weakness, Limited ability to care for self, High risk of falls I certify that my clinical findings support that this patient is homebound because: Hx COPD - exertion dyspnea/weakness, Unsteady gait/balance, Unsafe to leave home unassisted, Unable to use public transportation (2) CHF (congestive heart failure) Qualifiers: Heart failure type: unspecified Heart failure chronicity: chronic Qualified Code(s): I50.9 - Heart failure, unspecified
--- NOTE | 2018-06-10 10:35 | P.PN ---
Subjective Interval history: This is a pleasant 62 y/o Male with CHF, COPD, Hypertension, Hyperlipidemia, Acute Kidney Injury, DM II who complaint of Shortness of breath, He was recently admitted on June 01 for respiratory failure and a GI bleed and discharged on June 09. Patient improved and returned home, he states at home he was not able to use his nebulizer and became increasing short of breath. He denies any chest pain. Upon arrival patient was hypoxic with an o2 sat in the 80s. He states he uses 3 L o2 at night. has DENIS, Atrial Fibrillation, stable in his bedroom developed some Hematochezia recommended for GI specialist consult. improving condition asked for walk test and follow for discharge probably tomorrow. Physical Exam Vital signs: Vital Signs 06/10/18 01:53 06/10/18 02:14 06/10/18 03:57 Temperature 97.9 F Pulse Rate 92 H 93 H 89 Respiratory Rate 20 20 16 Blood Pressure 117/62 103/54 L Pulse Oximetry 95 95 06/10/18 04:00 06/10/18 05:01 06/10/18 08:00 Temperature 97.9 F Pulse Rate 91 H 90 88 Respiratory Rate 18 18 17 Blood Pressure 98/60 L 108/60 118/55 L Pulse Oximetry 97 97 98 Intake & Output 06/09/18 06/10/18 06/10/18 18:59 06:59 18:59 Weight 136.356 kg Narrative: GENERAL: Morbid Obese, well-developed patient, in no apparent distress. CARDIOVASCULAR: Regular rate and rhythm without murmurs, gallops, or rubs. RESPIRATORY: Diminished bases, scattered wheezes, on 3L GASTROINTESTINAL: Abdomen soft, non-tender, nondistended. Normal active bowel sounds MUSCULOSKELETAL: Extremities without clubbing, cyanosis, or edema. NEURO: Alert & Oriented x4 to person, place, time, situation. Moves all ext x4 Results - Labs CBC & Chem 7: 06/10/18 02:25 06/10/18 02:25 Laboratory Results - last 24 hr 06/10/18 06/10/18 06/10/18 02:05 02:25 02:25 WBC 11.2 H RBC 3.77 L Hgb 9.7 L Hct 32.9 L MCV 87.4 MCH 25.8 L MCHC 29.5 L RDW 20.6 H Plt Count 152 MPV 8.6 Neut % (Auto) 85.5 H Lymph % (Auto) 6.5 L [place] % (Auto) 7.3 Eos % (Auto) 0.2 Baso % (Auto) 0.5 Neut # (Auto) 9.6 H Lymph # (Auto) 0.7 L [place] # (Auto) 0.8 Eos # (Auto) 0.0 Baso # (Auto) 0.1 WBC Differential . Differential Comment Auto diff final PT INR APTT Sodium 145 Potassium 3.4 L Chloride 100 Carbon Dioxide 40.0 H Anion Gap 5 BUN 82 H Creatinine 1.50 H Estimated GFR 47 L POC Glucose Random Glucose 121 H Calcium 9.0 Total Bilirubin 1.1 H AST 40 H ALT 59 Alkaline Phosphatase 157 H B-Natriuretic Peptide Total Protein 7.1 D Albumin 4.0 Urine Color Yellow Urine Clarity Clear Urine pH 6.0 Ur Specific [place] 1.009 Urine Protein Negative Urine Glucose (UA) Negative Urine Ketones Negative Urine Occult Blood Small H Urine Nitrate Negative Urine Bilirubin Negative Urine Urobilinogen 4 or greater Ur Leukocyte Esterase Trace H Urine RBC 1 Urine WBC 1 Ur Squamous Epith Cells <1 Hyaline Casts 5 Micro UA Comment Culture not ind Ur Microscopic Review Not Reportable Urine Culture Comments Culture not ind Digoxin 06/10/18 06/10/18 06/10/18 02:25 02:25 02:25 WBC RBC Hgb Hct MCV MCH MCHC RDW Plt Count MPV Neut % (Auto) Lymph % (Auto) [place] % (Auto) Eos % (Auto) Baso % (Auto) Neut # (Auto) Lymph # (Auto) [place] # (Auto) Eos # (Auto) Baso # (Auto) WBC Differential Differential Comment PT 12.3 H INR 1.2 APTT 22.2 L Sodium Potassium Chloride Carbon Dioxide Anion Gap BUN Creatinine Estimated GFR POC Glucose Random Glucose Calcium Total Bilirubin AST ALT Alkaline Phosphatase B-Natriuretic Peptide 722 H Total Protein Albumin Urine Color Urine Clarity Urine pH Ur Specific [place] Urine Protein Urine Glucose (UA) Urine Ketones Urine Occult Blood Urine Nitrate Urine Bilirubin Urine Urobilinogen Ur Leukocyte Esterase Urine RBC Urine WBC Ur Squamous Epith Cells Hyaline Casts Micro UA Comment Ur Microscopic Review Urine Culture Comments Digoxin 1.4 06/10/18 08:52 WBC RBC Hgb Hct MCV MCH MCHC RDW Plt Count MPV Neut % (Auto) Lymph % (Auto) [place] % (Auto) Eos % (Auto) Baso % (Auto) Neut # (Auto) Lymph # (Auto) [place] # (Auto) Eos # (Auto) Baso # (Auto) WBC Differential Differential Comment PT INR APTT Sodium Potassium Chloride Carbon Dioxide Anion Gap BUN Creatinine Estimated GFR POC Glucose 116 H Random Glucose Calcium Total Bilirubin AST ALT Alkaline Phosphatase B-Natriuretic Peptide Total Protein Albumin Urine Color Urine Clarity Urine pH Ur Specific [place] Urine Protein Urine Glucose (UA) Urine Ketones Urine Occult Blood Urine Nitrate Urine Bilirubin Urine Urobilinogen Ur Leukocyte Esterase Urine RBC Urine WBC Ur Squamous Epith Cells Hyaline Casts Micro UA Comment Ur Microscopic Review Urine Culture Comments Digoxin - Imaging Impressions Chest X-Ray 06/10/18 01:56 CONCLUSION: Persistent bilateral lower lung zone parenchymal opacity and small bilateral pleural effusions. No significant interval change. Assessment and Plan - Plan 62 y/o male with a history of chf, copd, htn, hld, ckd, dm and afib presented to the ED with complaints of shortness of breath. Acute respiratory failure, hypoxic o2 in the 80s -Duoneb prn, home inhalers ordered -Walk test to be done later today. -PT/Ot eval -Case management for HHC, patient wishes to try HHC over SNF DM, chronic -Accu checks with SSI -Diabetic diet HTN, chronic -Resume home medications, monitor vitals CHF, chronic BNP 722, down from 1022 on 06/08 -Cont home diuretics Afib, chronic -Monitor telemetry -Resume home medications Morbid Obesity strongly recommended diet and exercise DENIS awaiting to get CPAP. Hypokalemia replaced and following. DVT prophylaxis: [place] Code Status: Full code. Discussed Condition With: Patient and nurse. Discharge Planning: Expected by tomorrow.
[2018-06-10] MEDS: Insulin NovoLOG Aspart Correctional Sugar Inj SQ SCH ×4 (11:01→21:19)
[2018-06-10] MEDS: Budesonide-Formoterol 160/4.5 MCG 6 GM Inhaler INH SCH ×2 (11:24→21:20)
[2018-06-10] MEDS: Pantoprazole Sodium 20 MG DR Tablet PO SCH (11:25)
[2018-06-10] MEDS: Torsemide 20 MG Tablet PO SCH (11:25)
[2018-06-10] MEDS: Ferrous Sulfate 325 MG Tablet PO SCH ×2 (11:25→21:16)
[2018-06-10] MEDS: Rivaroxaban 10 MG Tablet PO SCH (11:25)
[2018-06-10] MEDS: Metoprolol Tartrate 100 MG Tablet PO SCH ×2 (11:25→21:16)
[2018-06-10] MEDS: Digoxin 250 MCG Tablet PO SCH (11:25)
[2018-06-10] MEDS: dilTIAZem CD 240 MG Capsule PO SCH (11:25)
[2018-06-10] MEDS: Calcium Acetate 667 MG Capsule PO SCH ×3 (11:26→17:53)
--- NOTE | 2018-06-10 14:56 | P.CONGI ---
History of Present Illness Consult date: 06/10/18 Consult reason: SOB Chief complaint: Acute Exac COPD, H/O CHF, Chronic Kidney Disease History of Present Illness: This is a 62 yo M who presented to the ER with complaints of SOB. Our service has been consulted to evaluate pt for anemia with reports of rectal bleeding. Pt reports noticing some BRB on the toilet paper when he wipes, denies any blood mixed into the stool, states this is secondary to his hemorrhoids. Denies any nausea, vomiting, abdominal pain. Hgb today is about the same as when he was evaluated by our service earlier this month, at that time he declined GI work up. Last EGD and colonoscopy in May --> Mild gastritis in the gastric antrum, normal esophagus, normal colonic mucosa throughout entire examined colon, mild diverticulosis in the sigmoid colon, internal hemorrhoids. Pathology (gastric antrum) antral mucosa with reactive gastropathy (distal esophagus) gastric mucosa with mild chronic inflammation. Of note, pt is on Xarelto for a-fib, last dose received this afternoon. Did discuss GI procedures with the pt, at this time he is declining work up while inpatient because he is anticipating a short hospitalization and is wanting to go home tomorrow for financial reasons. He is agreeable to follow up outpatient. <Marilyn Richard - Last Filed: 06/10/18 14:49> [facility] - History History Provided By: Patient - Medical History Medical History: Medical History (Last Reviewed 06/10/18 @ 08:45 by Letty Castillo) Hyperlipidemia (Acute) Hypertension (Acute) DENIS (obstructive sleep apnea) (Acute) COPD (chronic obstructive pulmonary disease) (Acute) Atrial fibrillation CHF (congestive heart failure) Diabetes mellitus - Surgical History Surgical History: Surgical History (Last Reviewed 06/10/18 @ 08:45 by Letty Castillo) History of surgery on arm (Acute) Hx of tonsillectomy (Acute) H/O cardiac radiofrequency ablation (Acute) History of appendectomy (Acute) - Family History Family History: Family History (Last Reviewed 06/10/18 @ 04:44 by JUNIOR Buck) Father Diabetes mellitus Hypertension Mother Diabetes mellitus - Tobacco History Second Hand Smoke Exposure: No Smoking Status: Never smoker - Alcohol History How Often Do You Have a Drink Containing Alcohol: 2 to 3 times a week - Substance Use History Substance History: No History of Abuse - Travel History Recent Travel in the [place] Within the Last 8 Weeks: No Recent Travel Out of the Country Within the Last 8 Weeks: No - Immunization History Tetanus Immunization: <5 Years Hx Influenza Vaccine This Season: No <LuzMarilyn power - Last Filed: 06/10/18 14:49> - Medical History Medical History: Medical History (Last Reviewed 06/10/18 @ 08:45 by Letty Castillo) Hyperlipidemia (Acute) Hypertension (Acute) DENIS (obstructive sleep apnea) (Acute) COPD (chronic obstructive pulmonary disease) (Acute) Atrial fibrillation CHF (congestive heart failure) Diabetes mellitus - Surgical History Surgical History: Surgical History (Last Reviewed 06/10/18 @ 08:45 by Letty Castillo) History of surgery on arm (Acute) Hx of tonsillectomy (Acute) H/O cardiac radiofrequency ablation (Acute) History of appendectomy (Acute) - Family History Family History: Family History (Last Reviewed 06/10/18 @ 04:44 by JUNIOR Buck) Father Diabetes mellitus Hypertension Mother Diabetes mellitus <Viral Oates - Last Filed: 06/10/18 15:48> Medications and Allergies Active Medications: Active Medications Acetazolamide (Diamox) 125 mg PO BID DOLLY Al Hydroxide/Mg Hydroxide (Milk Of Efrain Richey) 30 ml PO Q12H PRN PRN Reason: Mild Constipation Albuterol (Duoneb Neb (Prn)) 1 ampul NEB Q2HR NEB PRN PRN Reason: sob Albuterol (Ventolin Hfa Inh) 1 puff INH Q4HR PRN PRN Reason: SHORTNESS OF BREATH Atorvastatin Calcium (Lipitor) 40 mg PO HS DOLLY Bisacodyl (Dulcolax Supp) 10 mg RECTAL DAILY PRN PRN Reason: SEVERE CONSITIPATION Budesonide/Formoterol Fumarate (Symbicort 160/4.5 Mcg Inh) 2 puff INH BID [facility] Last Admin: 06/10/18 11:24 Dose: 2 puff Bumetanide (Bumex) 1 mg PO BID [facility] Last Admin: 06/10/18 11:25 Dose: 1 mg Calcium Acetate (Phoslo) 667 mg PO TID [facility] Last Admin: 06/10/18 12:35 Dose: 667 mg Dextrose (D50w Vial) 50 ml IV.PUSH UNSCH PRN PRN Reason: PER HYPOGLYCEMIA PROTOCOL Digoxin (Lanoxin) 250 mcg PO DAILY [facility] Last Admin: 06/10/18 11:25 Dose: 250 mcg Diltiazem HCl (Cardizem Cd 24hr) 240 mg PO DAILY [facility] Last Admin: 06/10/18 11:25 Dose: 240 mg Ferrous Sulfate (Ferosul) 325 mg PO BID [facility] Last Admin: 06/10/18 11:25 Dose: 325 mg Glucagon (Glucagon Inj) 1 mg OTHER PRN PRN PRN Reason: for Hypoglycemia Protocol Insulin Aspart (Novolog Insulin Correctional Sugar Inj) 0 unit SQ ACHS [facility]; Protocol Last Admin: 06/10/18 11:47 Dose: Not Given Ipratropium Barlow (Atroven Hfa Inh) 1 puff INH Q6HR PRN PRN Reason: Shortness Of Breath Lactulose (Lactulose Liq) 30 ml PO DAILY PRN PRN Reason: SEVERE CONSITIPATION Melatonin (Melatonin) 5 mg PO HS PRN PRN Reason: Insomnia Metoprolol Tartrate (Lopressor) 100 mg PO BID [facility] Last Admin: 06/10/18 11:25 Dose: 100 mg Pantoprazole Sodium (Protonix) 20 mg PO DAILY [facility] Last Admin: 06/10/18 11:25 Dose: 20 mg Potassium Chloride (Kcl Powder) meq PO DAILY [facility] Rivaroxaban (Xarelto) 10 mg PO DAILY [facility] Last Admin: 06/10/18 11:25 Dose: 10 mg Sennosides (Senokot) 17.2 mg PO Q12H PRN PRN Reason: Moderate Constipation Tamsulosin HCl (Flomax) 0.4 mg PO DAILY [facility] Last Admin: 06/10/18 11:25 Dose: 0.4 mg Torsemide (Demadex) 40 mg PO DAILY [facility] Last Admin: 06/10/18 11:25 Dose: 40 mg <Marilyn Richard - Last Filed: 06/10/18 14:49> Active Medications: Active Medications Acetazolamide (Diamox) 125 mg PO BID [facility] Al Hydroxide/Mg Hydroxide (Milk Of Magnesia Liq) 30 ml PO Q12H PRN PRN Reason: Mild Constipation Albuterol (Duoneb Neb (Prn)) 1 ampul NEB Q2HR NEB PRN PRN Reason: sob Albuterol (Ventolin Hfa Inh) 1 puff INH Q4HR PRN PRN Reason: SHORTNESS OF BREATH Atorvastatin Calcium (Lipitor) 40 mg PO HS [facility] Bisacodyl (Dulcolax Supp) 10 mg RECTAL DAILY PRN PRN Reason: SEVERE CONSITIPATION Budesonide/Formoterol Fumarate (Symbicort 160/4.5 Mcg Inh) 2 puff INH BID [facility] Last Admin: 06/10/18 11:24 Dose: 2 puff Bumetanide (Bumex) 1 mg PO BID [facility] Last Admin: 06/10/18 11:25 Dose: 1 mg Calcium Acetate (Phoslo) 667 mg PO TID [facility] Last Admin: 06/10/18 12:35 Dose: 667 mg Dextrose (D50w Vial) 50 ml IV.PUSH UNSCH PRN PRN Reason: PER HYPOGLYCEMIA PROTOCOL Digoxin (Lanoxin) 250 mcg PO DAILY [facility] Last Admin: 06/10/18 11:25 Dose: 250 mcg Diltiazem HCl (Cardizem Cd 24hr) 240 mg PO DAILY [facility] Last Admin: 06/10/18 11:25 Dose: 240 mg Ferrous Sulfate (Ferosul) 325 mg PO BID [facility] Last Admin: 06/10/18 11:25 Dose: 325 mg Glucagon (Glucagon Inj) 1 mg OTHER PRN PRN PRN Reason: for Hypoglycemia Protocol Insulin Aspart (Novolog Insulin Correctional Sugar Inj) 0 unit SQ ACHS [facility]; Protocol Last Admin: 06/10/18 11:47 Dose: Not Given Ipratropium Bar[place] (Atroven Hfa Inh) 1 puff INH Q6HR PRN PRN Reason: Shortness Of Breath Lactulose (Lactulose Liq) 30 ml PO DAILY PRN PRN Reason: SEVERE CONSITIPATION Melatonin (Melatonin) 5 mg PO HS PRN PRN Reason: Insomnia Metoprolol Tartrate (Lopressor) 100 mg PO BID [facility] Last Admin: 06/10/18 11:25 Dose: 100 mg Pantoprazole Sodium (Protonix) 20 mg PO DAILY [facility] Last Admin: 06/10/18 11:25 Dose: 20 mg Potassium Chloride (Kcl Powder) meq PO DAILY [facility] Potassium Chloride (K-Dur) 40 meq PO ONCE ONE Stop: 06/10/18 14:58 Rivaroxaban (Xarelto) 10 mg PO DAILY [facility] Last Admin: 06/10/18 11:25 Dose: 10 mg Sennosides (Senokot) 17.2 mg PO Q12H PRN PRN Reason: Moderate Constipation Tamsulosin HCl (Flomax) 0.4 mg PO DAILY [facility] Last Admin: 06/10/18 11:25 Dose: 0.4 mg Torsemide (Demadex) 40 mg PO DAILY [facility] Last Admin: 06/10/18 11:25 Dose: 40 mg <Viral Oates - Last Filed: 06/10/18 15:48> Allergies Allergy/AdvReac Type Severity Reaction Status Date / Time No Known Allergies Allergy Verified 06/10/18 01:53 Home Medications Medication Instructions Recorded Confirmed Type acetazolamide 125 mg PO BID 05/22/18 06/01/18 History albuterol sulfate [Ventolin HFA] 1 puff INHALATION Q4HR PRN 05/22/18 06/01/18 History atorvastatin 40 mg PO HS 05/22/18 06/01/18 History budesonide-formoterol [Symbicort] 2 puff INHALATION BID 05/22/18 06/01/18 History calcium acetate 667 mg PO TID 05/22/18 06/01/18 History digoxin 0.25 mg PO DAILY 05/22/18 06/01/18 History diltiazem HCl [Cardizem LA] 240 mg PO DAILY 05/22/18 06/01/18 History ipratropium bromide [Atrovent HFA] 1 puff INHALATION Q6HR PRN 05/22/18 06/01/18 History metoprolol tartrate 100 mg PO BID 05/22/18 06/01/18 History omeprazole 20 mg PO DAILY 05/22/18 06/01/18 History potassium chloride [Klor-Con] 1 packet PO DAILY 05/22/18 06/01/18 History rivaroxaban 10 mg PO DAILY 05/22/18 06/01/18 History torsemide 40 mg PO DAILY 05/22/18 06/01/18 History acetaminophen [Tylenol] 650 mg PO Q4H PRN 06/01/18 06/01/18 History insulin aspart U-100 [Novolog 2 - 12 unit SUB-Q ACHS 06/01/18 06/01/18 History Flexpen U-100 Insulin] Exam Vital signs: Vital Signs 06/10/18 01:53 06/10/18 02:14 06/10/18 03:57 Temperature 97.9 F Pulse Rate 92 H 93 H 89 Respiratory Rate 20 20 16 Blood Pressure 117/62 103/54 L Pulse Oximetry 95 95 06/10/18 04:00 06/10/18 05:01 06/10/18 08:00 Temperature 97.9 F Pulse Rate 91 H 90 88 Respiratory Rate 18 18 17 Blood Pressure 98/60 L 108/60 118/55 L Pulse Oximetry 97 97 98 06/10/18 12:00 Temperature 98.5 F Pulse Rate 92 H Respiratory Rate 17 Blood Pressure 121/74 Pulse Oximetry 98 Intake & Output 06/09/18 06/10/18 06/10/18 18:59 06:59 18:59 Weight 136.356 kg <Marilyn Richard - Last Filed: 06/10/18 14:49> Vital signs: Vital Signs 06/10/18 01:53 06/10/18 02:14 06/10/18 03:57 Temperature 97.9 F Pulse Rate 92 H 93 H 89 Respiratory Rate 20 20 16 Blood Pressure 117/62 103/54 L Pulse Oximetry 95 95 06/10/18 04:00 06/10/18 05:01 06/10/18 08:00 Temperature 97.9 F Pulse Rate 91 H 90 88 Respiratory Rate 18 18 17 Blood Pressure 98/60 L 108/60 118/55 L Pulse Oximetry 97 97 98 06/10/18 12:00 Temperature 98.5 F Pulse Rate 92 H Respiratory Rate 17 Blood Pressure 121/74 Pulse Oximetry 98 Intake & Output 06/09/18 06/10/18 06/10/18 18:59 06:59 18:59 Weight 136.356 kg <Viral Oates - Last Filed: 06/10/18 15:48> Results - Labs CBC & Chem 7: 06/10/18 02:25 06/10/18 02:25 Labs: Laboratory Results - last 24 hr 06/10/18 06/10/18 06/10/18 02:05 02:25 02:25 WBC 11.2 H RBC 3.77 L Hgb 9.7 L Hct 32.9 L MCV 87.4 MCH 25.8 L MCHC 29.5 L RDW 20.6 H Plt Count 152 MPV 8.6 Neut % (Auto) 85.5 H Lymph % (Auto) 6.5 L [place] % (Auto) 7.3 Eos % (Auto) 0.2 Baso % (Auto) 0.5 Neut # (Auto) 9.6 H Lymph # (Auto) 0.7 L [place] # (Auto) 0.8 Eos # (Auto) 0.0 Baso # (Auto) 0.1 WBC Differential . Differential Comment Auto diff final PT INR APTT Sodium 145 Potassium 3.4 L Chloride 100 Carbon Dioxide 40.0 H Anion Gap 5 BUN 82 H Creatinine 1.50 H Estimated GFR 47 L POC Glucose Random Glucose 121 H Calcium 9.0 Total Bilirubin 1.1 H AST 40 H ALT 59 Alkaline Phosphatase 157 H B-Natriuretic Peptide Total Protein 7.1 D Albumin 4.0 Urine Color Yellow Urine Clarity Clear Urine pH 6.0 Ur Specific [place] 1.009 Urine Protein Negative Urine Glucose (UA) Negative Urine Ketones Negative Urine Occult Blood Small H Urine Nitrate Negative Urine Bilirubin Negative Urine Urobilinogen 4 or greater Ur Leukocyte Esterase Trace H Urine RBC 1 Urine WBC 1 Ur Squamous Epith Cells <1 Hyaline Casts 5 Micro UA Comment Culture not ind Ur Microscopic Review Not Reportable Urine Culture Comments Culture not ind Digoxin 06/10/18 06/10/18 06/10/18 02:25 02:25 02:25 WBC RBC Hgb Hct MCV MCH MCHC RDW Plt Count MPV Neut % (Auto) Lymph % (Auto) [place] % (Auto) Eos % (Auto) Baso % (Auto) Neut # (Auto) Lymph # (Auto) [place] # (Auto) Eos # (Auto) Baso # (Auto) WBC Differential Differential Comment PT 12.3 H INR 1.2 APTT 22.2 L Sodium Potassium Chloride Carbon Dioxide Anion Gap BUN Creatinine Estimated GFR POC Glucose Random Glucose Calcium Total Bilirubin AST ALT Alkaline Phosphatase B-Natriuretic Peptide 722 H Total Protein Albumin Urine Color Urine Clarity Urine pH Ur Specific [place] Urine Protein Urine Glucose (UA) Urine Ketones Urine Occult Blood Urine Nitrate Urine Bilirubin Urine Urobilinogen Ur Leukocyte Esterase Urine RBC Urine WBC Ur Squamous Epith Cells Hyaline Casts Micro UA Comment Ur Microscopic Review Urine Culture Comments Digoxin 1.4 06/10/18 06/10/18 08:52 11:30 WBC RBC Hgb Hct MCV MCH MCHC RDW Plt Count MPV Neut % (Auto) Lymph % (Auto) [place] % (Auto) Eos % (Auto) Baso % (Auto) Neut # (Auto) Lymph # (Auto) [place] # (Auto) Eos # (Auto) Baso # (Auto) WBC Differential Differential Comment PT INR APTT Sodium Potassium Chloride Carbon Dioxide Anion Gap BUN Creatinine Estimated GFR POC Glucose 116 H 126 H Random Glucose Calcium Total Bilirubin AST ALT Alkaline Phosphatase B-Natriuretic Peptide Total Protein Albumin Urine Color Urine Clarity Urine pH Ur Specific [place] Urine Protein Urine Glucose (UA) Urine Ketones Urine Occult Blood Urine Nitrate Urine Bilirubin Urine Urobilinogen Ur Leukocyte Esterase Urine RBC Urine WBC Ur Squamous Epith Cells Hyaline Casts Micro UA Comment Ur Microscopic Review Urine Culture Comments Digoxin - Imaging Impressions Chest X-Ray 06/10/18 01:56 CONCLUSION: Persistent bilateral lower lung zone parenchymal opacity and small bilateral pleural effusions. No significant interval change. <Marilyn Richard - Last Filed: 06/10/18 14:49> - Labs CBC & Chem 7: 06/10/18 02:25 06/10/18 02:25 Labs: Laboratory Results - last 24 hr 06/10/18 06/10/18 06/10/18 02:05 02:25 02:25 WBC 11.2 H RBC 3.77 L Hgb 9.7 L Hct 32.9 L MCV 87.4 MCH 25.8 L MCHC 29.5 L RDW 20.6 H Plt Count 152 MPV 8.6 Neut % (Auto) 85.5 H Lymph % (Auto) 6.5 L [place] % (Auto) 7.3 Eos % (Auto) 0.2 Baso % (Auto) 0.5 Neut # (Auto) 9.6 H Lymph # (Auto) 0.7 L [place] # (Auto) 0.8 Eos # (Auto) 0.0 Baso # (Auto) 0.1 WBC Differential . Differential Comment Auto diff final PT INR APTT Sodium 145 Potassium 3.4 L Chloride 100 Carbon Dioxide 40.0 H Anion Gap 5 BUN 82 H Creatinine 1.50 H Estimated GFR 47 L POC Glucose Random Glucose 121 H Calcium 9.0 Total Bilirubin 1.1 H AST 40 H ALT 59 Alkaline Phosphatase 157 H B-Natriuretic Peptide Total Protein 7.1 D Albumin 4.0 Urine Color Yellow Urine Clarity Clear Urine pH 6.0 Ur Specific [place] 1.009 Urine Protein Negative Urine Glucose (UA) Negative Urine Ketones Negative Urine Occult Blood Small H Urine Nitrate Negative Urine Bilirubin Negative Urine Urobilinogen 4 or greater Ur Leukocyte Esterase Trace H Urine RBC 1 Urine WBC 1 Ur Squamous Epith Cells <1 Hyaline Casts 5 Micro UA Comment Culture not ind Ur Microscopic Review Not Reportable Urine Culture Comments Culture not ind Digoxin 06/10/18 06/10/18 06/10/18 02:25 02:25 02:25 WBC RBC Hgb Hct MCV MCH MCHC RDW Plt Count MPV Neut % (Auto) Lymph % (Auto) [place] % (Auto) Eos % (Auto) Baso % (Auto) Neut # (Auto) Lymph # (Auto) [place] # (Auto) Eos # (Auto) Baso # (Auto) WBC Differential Differential Comment PT 12.3 H INR 1.2 APTT 22.2 L Sodium Potassium Chloride Carbon Dioxide Anion Gap BUN Creatinine Estimated GFR POC Glucose Random Glucose Calcium Total Bilirubin AST ALT Alkaline Phosphatase B-Natriuretic Peptide 722 H Total Protein Albumin Urine Color Urine Clarity Urine pH Ur Specific [place] Urine Protein Urine Glucose (UA) Urine Ketones Urine Occult Blood Urine Nitrate Urine Bilirubin Urine Urobilinogen Ur Leukocyte Esterase Urine RBC Urine WBC Ur Squamous Epith Cells Hyaline Casts Micro UA Comment Ur Microscopic Review Urine Culture Comments Digoxin 1.4 06/10/18 06/10/18 08:52 11:30 WBC RBC Hgb Hct MCV MCH MCHC RDW Plt Count MPV Neut % (Auto) Lymph % (Auto) [place] % (Auto) Eos % (Auto) Baso % (Auto) Neut # (Auto) Lymph # (Auto) [place] # (Auto) Eos # (Auto) Baso # (Auto) WBC Differential Differential Comment PT INR APTT Sodium Potassium Chloride Carbon Dioxide Anion Gap BUN Creatinine Estimated GFR POC Glucose 116 H 126 H Random Glucose Calcium Total Bilirubin AST ALT Alkaline Phosphatase B-Natriuretic Peptide Total Protein Albumin Urine Color Urine Clarity Urine pH Ur Specific [place] Urine Protein Urine Glucose (UA) Urine Ketones Urine Occult Blood Urine Nitrate Urine Bilirubin Urine Urobilinogen Ur Leukocyte Esterase Urine RBC Urine WBC Ur Squamous Epith Cells Hyaline Casts Micro UA Comment Ur Microscopic Review Urine Culture Comments Digoxin - Imaging Impressions Chest X-Ray 06/10/18 01:56 CONCLUSION: Persistent bilateral lower lung zone parenchymal opacity and small bilateral pleural effusions. No significant interval change. <Viral Oates - Last Filed: 06/10/18 15:48> Assessment and Plan - Plan Assessment: - Anemia- microcytic, hypochromic with reports of BRB on the toilet paper when he wipes. Denies any blood mixed into the stool, states BRB is secondary to his hemorrhoids. Denies any nausea, vomiting, abdominal pain. Hgb today is about the same as when he was evaluated by our service earlier this month, at that time he declined GI work up. Last EGD and colonoscopy in May --> Mild gastritis in the gastric antrum, normal esophagus, normal colonic mucosa throughout entire examined colon, mild diverticulosis in the sigmoid colon, internal hemorrhoids. Pathology (gastric antrum) antral mucosa with reactive gastropathy (distal esophagus) gastric mucosa with mild chronic inflammation. Of note, pt is on Xarelto for a-fib, last dose received this afternoon. Discussed GI procedures with the pt, at this time he is declining work up while inpatient because he is anticipating a short hospitalization and is wanting to go home tomorrow for financial reasons. He is agreeable to follow up outpatient. Plan: Declining GI workup while inpatient Agreeable to follow up outpatient Monitor H/H Xarelto per attending Our service will sign off, please reconsult if pt is agreeable to inpatient workup Have pt follow up with GI after DC Pt has been seen and examined by myself and Dr. Oates and this note is written on his behalf <Marilyn Richard - Last Filed: 06/10/18 14:49> - Plan Seen and examined with [facility] [employer], Denies any active bleeding, has been on xarelto for many years. Does not desire inpatient cunningham. Agrees to fu as outpatient for gi cunningham. Discussed with Dr Alfaro. Thank you The exam, history, and the medical decision-making described in the above note were completed with the assistance of the mid-level provider. I reviewed and agree with the findings presented. I attest that I had a [id number] encounter with the patient on the same day, and personally performed and documented my assessment and findings in the medical record. <Viral Oates - Last Filed: 06/10/18 15:48>
[2018-06-10] MEDS: acetaZOLAMIDE 250 MG TABLET PO SCH (21:17)
[2018-06-11 05:12] LABS: Baso % (Auto) 0.2 % (0.0-2.0); Eos # (Auto) 0.1 th/mm3 (0.0-0.4); Eos % (Auto) 1.6 % (0.0-4.0); Hematocrit 27.8 % (39.0-51.0); Hemoglobin 8.4 gm/dL (13.0-17.0); Lymph # (Auto) 0.6 th/mm3 (1.0-4.8); Lymph % (Auto) 6.4 % (9.0-44.0); Mean Corpuscular Hemoglobin 26.5 pg (27.0-34.0); Mean Corpuscular Volume 87.6 fL (80.0-100.0); Mono # (Auto) 0.6 th/mm3 (0.0-0.9); Mono % (Auto) 6.1 % (0.0-8.0); Neut # (Auto) 7.9 th/mm3 (1.8-7.7); Neut % (Auto) 85.7 % (16.0-70.0); Platelet Count 118 th/mm3 (150-450); Red Blood Count 3.18 mil/mm3 (4.50-5.90); White Blood Count 9.3 th/mm3 (4.0-11.0)
[2018-06-11 05:31] LABS: Mean Corpuscular HGB Conc 30.3 % (32.0-36.0)
[2018-06-11 05:41] LABS: Alanine Aminotransferase 40 U/L (12-78); Albumin 3.2 g/dL (3.4-5.0); Alkaline Phosphatase 128 U/L (45-117); Anion Gap 3 meq/L (5-15); Aspartate Aminotransferase 28 U/L (15-37); Blood Urea Nitrogen 67 mg/dL (7-18); Calcium 8.3 mg/dL (8.5-10.1); Carbon Dioxide 39.2 meq/L (21.0-32.0); Chloride 101 meq/L (98-107); Glomerular Filtration Rate 58 mL/min (>89); Glucose,Random 114 mg/dL (74-106); Potassium 3.7 meq/L (3.5-5.1); Sodium 143 meq/L (136-145); Total Protein 5.9 g/dL (6.4-8.2)
[2018-06-11] MEDS: Insulin NovoLOG Aspart Correctional Sugar Inj SQ SCH ×2 (09:49→12:00)
[2018-06-11] MEDS: Calcium Acetate 667 MG Capsule PO SCH ×2 (09:50→13:53)
[2018-06-11] MEDS: Pantoprazole Sodium 20 MG DR Tablet PO SCH (09:50)
[2018-06-11] MEDS: Ferrous Sulfate 325 MG Tablet PO SCH (09:50)
[2018-06-11] MEDS: Torsemide 20 MG Tablet PO SCH (09:50)
[2018-06-11] MEDS: Rivaroxaban 10 MG Tablet PO SCH (09:50)
[2018-06-11] MEDS: Digoxin 250 MCG Tablet PO SCH (09:50)
[2018-06-11] MEDS: dilTIAZem CD 240 MG Capsule PO SCH (09:50)
[2018-06-11] MEDS: acetaZOLAMIDE 250 MG TABLET PO SCH (09:52)
[2018-06-11] MEDS: Budesonide-Formoterol 160/4.5 MCG 6 GM Inhaler INH SCH (09:54)
[2018-06-11] MEDS: Metoprolol Tartrate 100 MG Tablet PO SCH (09:56)
--- NOTE | 2018-06-11 11:09 | P.PN ---
Subjective Interval history: This is a pleasant 62 y/o Male with CHF, COPD, Hypertension, Hyperlipidemia, Acute Kidney Injury, DM II who complaint of Shortness of breath, He was recently admitted on June 01 for respiratory failure and a GI bleed and discharged on June 09. Patient improved and returned home, he states at home he was not able to use his nebulizer and became increasing short of breath. He denies any chest pain. Upon arrival patient was hypoxic with an o2 sat in the 80s. He states he uses 3 L o2 at night. has DENIS, Atrial Fibrillation, stable in his bedroom developed some Hematochezia recommended for GI specialist consult. improving condition asked for walk test and follow for discharge probably tomorrow. 06/11: Stable in his bedroom. seen by PT and OT recommended no further recommendations no need for PT and OT. no nausea, vomit or diarrhea. Physical Exam Vital signs: Vital Signs 06/10/18 12:00 06/10/18 15:53 06/10/18 20:00 Temperature 98.5 F 98.9 F 99.0 F Pulse Rate 92 H 74 86 Respiratory Rate 17 17 18 Blood Pressure 121/74 116/55 L 116/58 L Pulse Oximetry 98 97 97 06/11/18 00:00 06/11/18 08:00 Temperature 98.3 F 98.0 F Pulse Rate 86 93 H Respiratory Rate 18 20 Blood Pressure 116/58 L 119/60 Pulse Oximetry 95 95 Intake & Output 06/10/18 06/11/18 06/11/18 18:59 06:59 18:59 Intake Total 900 / 900 Output Total 1725 / 1725 1800 / 1800 Balance -825 / -825 -1800 / -1800 Weight 160.9 kg Intake: Oral 900 / 900 Output: Urine 1725 / 1725 1800 / 1800 Other: Date of Last Bowel Movement 06/08/18 06/09/18 Narrative: GENERAL: Morbid Obese, well-developed patient, in no apparent distress. CARDIOVASCULAR: Regular rate and rhythm without murmurs, gallops, or rubs. RESPIRATORY: Diminished bases, scattered wheezes, on 3L GASTROINTESTINAL: Abdomen soft, non-tender, nondistended. Normal active bowel sounds MUSCULOSKELETAL: Extremities without clubbing, cyanosis, or edema. NEURO: Alert & Oriented x4 to person, place, time, situation. Moves all ext x4 Results - Labs CBC & Chem 7: 06/11/18 04:37 06/11/18 04:37 Laboratory Results - last 24 hr 06/10/18 06/10/18 06/10/18 11:30 17:49 21:18 WBC RBC Hgb Hct MCV MCH MCHC RDW Plt Count MPV Neut % (Auto) Lymph % (Auto) [place] % (Auto) Eos % (Auto) Baso % (Auto) Neut # (Auto) Lymph # (Auto) [place] # (Auto) Eos # (Auto) Baso # (Auto) WBC Differential Differential Comment Sodium Potassium Chloride Carbon Dioxide Anion Gap BUN Creatinine Estimated GFR POC Glucose 126 H 115 H 129 H Random Glucose Calcium Total Bilirubin AST ALT Alkaline Phosphatase Total Protein Albumin 06/11/18 06/11/18 06/11/18 04:37 04:37 08:30 WBC 9.3 RBC 3.18 L Hgb 8.4 L Hct 27.8 L MCV 87.6 MCH 26.5 L MCHC 30.3 L RDW 21.0 H Plt Count 118 L MPV 9.0 Neut % (Auto) 85.7 H Lymph % (Auto) 6.4 L [place] % (Auto) 6.1 Eos % (Auto) 1.6 Baso % (Auto) 0.2 Neut # (Auto) 7.9 H Lymph # (Auto) 0.6 L [place] # (Auto) 0.6 Eos # (Auto) 0.1 Baso # (Auto) 0.0 WBC Differential . Differential Comment Auto diff final Sodium 143 Potassium 3.7 Chloride 101 Carbon Dioxide 39.2 H Anion Gap 3 L BUN 67 H Creatinine 1.26 Estimated GFR 58 L POC Glucose 138 H Random Glucose 114 H Calcium 8.3 L Total Bilirubin 1.0 AST 28 ALT 40 Alkaline Phosphatase 128 H Total Protein 5.9 L D Albumin 3.2 L D Assessment and Plan - Plan 62 y/o male with a history of chf, copd, htn, hld, ckd, dm and afib presented to the ED with complaints of shortness of breath. Acute respiratory failure, hypoxic o2 in the 80s -Duoneb prn, home inhalers ordered -Walk test to be done later today. -PT/Ot eval no need for PT or OT will go home with [facility] skilled nurse. DM, chronic continue Home regimen for diabetes. -Accu checks with SSI -Diabetic diet HTN, chronic -Resume home medications, monitor vitals CHF, chronic BNP 722, down from 1022 on 06/08 -Cont home diuretics Afib, chronic -Monitor telemetry -Resume home medications Morbid Obesity strongly recommended diet and exercise DENIS awaiting to get CPAP as outpatient. Hypokalemia replaced DVT prophylaxis: Xarelto Code Status: Full code. Discussed Condition With: patient and Nurse. Discharge Planning: Discharge home with [facility]
--- NOTE | 2018-06-11 11:42 | P.DS ---
Date of admission: 06/10/18 03:56 Primary care physician: PROVIDER NON STAFF Attending physician on discharge: Jaycob Owen Anticipated date of discharge: 06/11/18 Brief History from admission: 62 y/o male with a history of chf, copd, htn, hld, ckd, dm and afib presented to the ED with complaints of shortness of breath. He was recently admitted on June 01 for respiratory failure and a GI bleed and discharged on June 09. Patient improved and returned home, he states at home he was not able to use his nebulizer and became increasing short of breath. He denies any chest pain. Upon arrival patient was hypoxic with an o2 sat in the 80s. He states he uses 3 L o2 at night. Denies any fever or chills. He does continue to have rectal bleeding but declined a gi workup last admission. DS: Diagnosis - Discharge Diagnosis (1) CHF (congestive heart failure) Status: Acute (2) Acute kidney injury Status: Acute (3) CHF exacerbation Status: Acute (4) Acute urinary retention Status: Acute (5) Fluid overload Status: Acute (6) CHF exacerbation Status: Acute (7) Respiratory failure Status: Acute DS: Summary Hospital Course: This is a pleasant 62 y/o Male with CHF, COPD, Hypertension, Hyperlipidemia, Acute Kidney Injury, DM II who complaint of Shortness of breath, He was recently admitted on June 01 for respiratory failure and a GI bleed and discharged on June 09. Patient improved and returned home, he states at home he was not able to use his nebulizer and became increasing short of breath. He denies any chest pain. Upon arrival patient was hypoxic with an o2 sat in the 80s. He states he uses 3 L o2 at night. has DENIS, Atrial Fibrillation, stable in his bedroom developed some Hematochezia recommended for GI specialist consult. improving condition asked for walk test and follow for discharge probably tomorrow. 06/11: Stable in his bedroom. seen by PT and OT recommended no further recommendations no need for PT and OT. no nausea, vomit or diarrhea. Results - Labs CBC & Chem 7: 06/11/18 04:37 06/11/18 04:37 Laboratory Results - last 24 hr 06/10/18 06/10/18 06/10/18 11:30 17:49 21:18 WBC RBC Hgb Hct MCV MCH MCHC RDW Plt Count MPV Neut % (Auto) Lymph % (Auto) [place] % (Auto) Eos % (Auto) Baso % (Auto) Neut # (Auto) Lymph # (Auto) [place] # (Auto) Eos # (Auto) Baso # (Auto) WBC Differential Differential Comment Sodium Potassium Chloride Carbon Dioxide Anion Gap BUN Creatinine Estimated GFR POC Glucose 126 H 115 H 129 H Random Glucose Calcium Total Bilirubin AST ALT Alkaline Phosphatase Total Protein Albumin 06/11/18 06/11/18 06/11/18 04:37 04:37 08:30 WBC 9.3 RBC 3.18 L Hgb 8.4 L Hct 27.8 L MCV 87.6 MCH 26.5 L MCHC 30.3 L RDW 21.0 H Plt Count 118 L MPV 9.0 Neut % (Auto) 85.7 H Lymph % (Auto) 6.4 L [place] % (Auto) 6.1 Eos % (Auto) 1.6 Baso % (Auto) 0.2 Neut # (Auto) 7.9 H Lymph # (Auto) 0.6 L [place] # (Auto) 0.6 Eos # (Auto) 0.1 Baso # (Auto) 0.0 WBC Differential . Differential Comment Auto diff final Sodium 143 Potassium 3.7 Chloride 101 Carbon Dioxide 39.2 H Anion Gap 3 L BUN 67 H Creatinine 1.26 Estimated GFR 58 L POC Glucose 138 H Random Glucose 114 H Calcium 8.3 L Total Bilirubin 1.0 AST 28 ALT 40 Alkaline Phosphatase 128 H Total Protein 5.9 L D Albumin 3.2 L D Assessment and Plan - Plan 62 y/o male with a history of chf, copd, htn, hld, ckd, dm and afib presented to the ED with complaints of shortness of breath. Acute respiratory failure, hypoxic o2 in the 80s Improved. -Duoneb prn, home inhalers ordered -Walk test to be done later today. -PT/Ot eval no need for PT or OT will go home with [facility] skilled nurse. DM, chronic continue Home regimen for diabetes. -Accu checks with SSI -Diabetic diet HTN, chronic, controlled. -Resume home medications. CHF, chronic BNP 722, down from 1022 on 06/08 -Cont home diuretics Afib, chronic -Monitor telemetry -Resume home medications Morbid Obesity strongly recommended diet and exercise DENIS awaiting to get CPAP as outpatient. Hypokalemia replaced GI bleed seen by GI specialist recommended for endoscopy the patient refused, today stable will continue anticoagulation and follow by GI specialist. DVT prophylaxis: Xarelto Code Status: Full code. Discussed Condition With: patient and Nurse. Discharge Planning: Discharge home with [facility] - Time Spent with Patient Total time spent providing and/or coordinating discharge services: Less than 30 minutes Exam Vital signs: Vital Signs 06/10/18 12:00 06/10/18 15:53 06/10/18 20:00 Temperature 98.5 F 98.9 F 99.0 F Pulse Rate 92 H 74 86 Respiratory Rate 17 17 18 Blood Pressure 121/74 116/55 L 116/58 L Pulse Oximetry 98 97 97 06/11/18 00:00 06/11/18 08:00 Temperature 98.3 F 98.0 F Pulse Rate 86 93 H Respiratory Rate 18 20 Blood Pressure 116/58 L 119/60 Pulse Oximetry 95 95 Intake & Output 06/10/18 06/11/18 06/11/18 18:59 06:59 18:59 Intake Total 900 / 900 Output Total 1725 / 1725 1800 / 1800 Balance -825 / -825 -1800 / -1800 Weight 160.9 kg Intake: Oral 900 / 900 Output: Urine 1725 / 1725 1800 / 1800 Other: Date of Last Bowel Movement 06/08/18 06/09/18 Narrative: GENERAL: Morbid Obese, well-developed patient, in no apparent distress. CARDIOVASCULAR: Regular rate and rhythm without murmurs, gallops, or rubs. RESPIRATORY: Diminished bases, scattered wheezes, on 3L GASTROINTESTINAL: Abdomen soft, non-tender, nondistended. Normal active bowel sounds MUSCULOSKELETAL: Extremities without clubbing, cyanosis, or edema. NEURO: Alert & Oriented x4 to person, place, time, situation. Moves all ext x4 Results Procedures completed during hospitalization: None Labs on day of discharge: Labs from last 24 hours 06/11/18 06/11/18 06/11/18 08:30 04:37 04:37 WBC 9.3 RBC 3.18 L Hgb 8.4 L Hct 27.8 L MCV 87.6 MCH 26.5 L MCHC 30.3 L RDW 21.0 H Plt Count 118 L MPV 9.0 Neut % (Auto) 85.7 H Lymph % (Auto) 6.4 L [place] % (Auto) 6.1 Eos % (Auto) 1.6 Baso % (Auto) 0.2 Neut # (Auto) 7.9 H Lymph # (Auto) 0.6 L [place] # (Auto) 0.6 Eos # (Auto) 0.1 Baso # (Auto) 0.0 WBC Differential . Differential Comment Auto diff final Sodium 143 Potassium 3.7 Chloride 101 Carbon Dioxide 39.2 H Anion Gap 3 L BUN 67 H Creatinine 1.26 Estimated GFR 58 L POC Glucose 138 H Random Glucose 114 H Calcium 8.3 L Total Bilirubin 1.0 AST 28 ALT 40 Alkaline Phosphatase 128 H Total Protein 5.9 L D Albumin 3.2 L D 06/10/18 06/10/18 21:18 17:49 WBC RBC Hgb Hct MCV MCH MCHC RDW Plt Count MPV Neut % (Auto) Lymph % (Auto) [place] % (Auto) Eos % (Auto) Baso % (Auto) Neut # (Auto) Lymph # (Auto) [place] # (Auto) Eos # (Auto) Baso # (Auto) WBC Differential Differential Comment Sodium Potassium Chloride Carbon Dioxide Anion Gap BUN Creatinine Estimated GFR POC Glucose 129 H 115 H Random Glucose Calcium Total Bilirubin AST ALT Alkaline Phosphatase Total Protein Albumin - Impressions ITS Impressions Chest X-Ray 06/10/18 01:56 CONCLUSION: Persistent bilateral lower lung zone parenchymal opacity and small bilateral pleural effusions. No significant interval change. Discharge Plan - Discharge Disposition Patient Disposition: /Home Health Service - Discharge Condition Condition: Stable - Discharge Order Discharge Orders: Discharge Order (Routine); Ordered 06/11/18 Ordered By: Jaycob Owen - Discharge Details Anticipated Discharge Date: 06/11/18 Discharge Comment: follow with PCP in three days - Physicians Team Primary Care Provider: NON STAFF,PROVIDER Attending Provider: Jaycob Owen Other Providers: [employer] ; Viral Oates MD
[2018-06-11 12:28] VITALS: BP 127/65; PULSE 82; RESP 18; TEMP 98.4; O2SAT 94
[2018-06-11] MEDS ORDERED: Potassium Chloride 20 MEQ Pwd Pkt PO SCH (14:45)
--- NOTE | 2018-06-11 18:40 | P.DCO ---
- Diagnosis (2) CHF (congestive heart failure) (5) Respiratory failure - Physical Therapy Order: Evaluate and treat, Improve ambulation, Strength and gait training - Home Health Nursing Order: Medical education, Signs/symptoms of disease process, Oxygen administration education, Medication education-adverse effect, Nursing assessment with vital signs - Case Management Consult No - Certification I have seen patient Zeeshan Nix on 06/11/18. My clinical findings support the need for the requested home health care services because: Limited mobility due to disease progression I certify that my clinical findings support that this patient is homebound because: Unsafe to leave home unassisted (2) CHF (congestive heart failure) Qualifiers: Heart failure type: unspecified Heart failure chronicity: chronic Qualified Code(s): I50.9 - Heart failure, unspecified (5) Respiratory failure Qualifiers: Chronicity: acute on chronic Respiratory failure complication: hypoxia and hypercapnia Qualified Code(s): J96.21 - Acute and chronic respiratory failure with hypoxia; J96.22 - Acute and chronic respiratory failure with hypercapnia
== END 2018-06-11 15:10 | disposition home health service (06) ==
LOC: NEPE 01:32 → INTOOBSV 03:56 → NEDA 03:56 → N07 05:23
PROVIDERS: ADMIT Internal Medicine; ATTEND Internal Medicine

== ENCOUNTER 2018-06-13 15:32 | Inpatient (IN) ==
[2018-06-13] MEDS ORDERED: Sod Chloride 0.9% Inj 1,000 ML IV.SIG ONE (16:26)
[2018-06-13 17:02] LABS: Baso % (Auto) 0.4 % (0.0-2.0); Eos # (Auto) 0.1 th/mm3 (0.0-0.4); Eos % (Auto) 1.3 % (0.0-4.0); Hematocrit 28.8 % (39.0-51.0); Lymph # (Auto) 0.7 th/mm3 (1.0-4.8); Lymph % (Auto) 6.4 % (9.0-44.0); Mean Corpuscular HGB Conc 31.2 % (32.0-36.0); Mean Corpuscular Hemoglobin 27.4 pg (27.0-34.0); Mean Corpuscular Volume 87.8 fL (80.0-100.0); Mean Platelet Volume 8.9 fL (7.0-11.0); Mono # (Auto) 0.6 th/mm3 (0.0-0.9); Mono % (Auto) 5.9 % (0.0-8.0); Neut # (Auto) 9.2 th/mm3 (1.8-7.7); Platelet Count 174 th/mm3 (150-450); Red Blood Count 3.28 mil/mm3 (4.50-5.90); Red Cell Distribution Width 21.1 % (11.6-17.2); White Blood Count 10.7 th/mm3 (4.0-11.0)
--- NOTE | 2018-06-13 17:22 | ED ---
HPI General Chief complaint: Weakness Stated complaint: Weakness Time Seen by Provider: 06/13/18 16:18 Source: patient, EMS, RN notes reviewed and old records reviewed Mode of arrival: EMS History of Present Illness HPI narrative: 62yM presenting with weakness. The patient has been admitted twice recently for CHF exacerbation and lower GI bleed, most recently discharged on 06/11. He says that he's been depending on his roommate to help him around the house, but his roommate left yesterday. The patient "rolled" out of bed today and was unable to get up on his own for several hours so he called EMS. He denies fever or chills but admits to "chest pain when I was crawling around on the floor" (substernal, "pressure", non-radiating, severe, lasting minutes), chronic shortness of breath, nausea, and continues to notice blood in his stool. Related Data Home Medications Medication Instructions Recorded Confirmed acetazolamide 125 mg PO BID 05/22/18 06/13/18 albuterol sulfate [Ventolin HFA] 1 puff INHALATION Q4HR PRN 05/22/18 06/13/18 atorvastatin 40 mg PO HS 05/22/18 06/13/18 budesonide-formoterol [Symbicort] 2 puff INHALATION BID 05/22/18 06/13/18 calcium acetate 667 mg PO TID 05/22/18 06/13/18 digoxin 0.25 mg PO DAILY 05/22/18 06/13/18 diltiazem HCl [Cardizem LA] 240 mg PO DAILY 05/22/18 06/13/18 ipratropium bromide [Atrovent HFA] 1 puff INHALATION Q6HR PRN 05/22/18 06/13/18 metoprolol tartrate 100 mg PO BID 05/22/18 06/13/18 omeprazole 20 mg PO DAILY 05/22/18 06/13/18 potassium chloride [Klor-Con] 1 packet PO DAILY 05/22/18 06/13/18 rivaroxaban 10 mg PO DAILY 05/22/18 06/13/18 torsemide 40 mg PO DAILY 05/22/18 06/13/18 acetaminophen [Tylenol] 650 mg PO Q4H PRN 06/01/18 06/13/18 insulin aspart U-100 [Novolog 2 - 12 unit SUB-Q ACHS 06/01/18 06/13/18 Flexpen U-100 Insulin] Previous Rx's Medication Instructions Recorded ferrous sulfate [FeroSul] 325 mg PO BID #60 tab 05/12/18 bumetanide 1 mg PO BID #0 tab 05/26/18 melatonin 5 mg PO HS PRN tab 05/26/18 tamsulosin 0.4 mg PO DAILY cap 05/26/18 prednisone 10 mg PO DIRECTED 30 Days #30 06/08/18 tab albuterol sulfate 1.25 mg INHALATION Q4-6H PRN 30 06/09/18 Days ml Allergies Allergy/AdvReac Type Severity Reaction Status Date / Time No Known Allergies Allergy Verified 06/10/18 01:53 Review of Systems ROS: all other systems reviewed are negative Constitutional Denies fever(s) Eyes Denies blurry vision ENT Denies nasal congestion Cardiovascular Denies chest pain Respiratory Reports dyspnea Gastrointestinal Reports hematochezia and Denies nausea Genitourinary Denies dysuria Musculoskeletal Denies back pain Neurologic Denies confusion Psychiatric Denies confusion PMFSH History History Provided By: Patient Medical History Medical History Hyperlipidemia (Acute) Hypertension (Acute) DENIS (obstructive sleep apnea) (Acute) COPD (chronic obstructive pulmonary disease) (Acute) History of alcohol abuse (Acute) Atrial fibrillation (Acute) CHF (congestive heart failure) (Acute) Diabetes mellitus (Acute) Surgical History Surgical History History of surgery on arm (Acute) Hx of tonsillectomy (Acute) H/O cardiac radiofrequency ablation (Acute) History of appendectomy (Acute) Family History Family History Father Diabetes mellitus Hypertension Mother Diabetes mellitus Social History Social History Substance History: Active Abuse Second Hand Smoke Exposure: No Smoking Status: Never smoker How Often Do You Have a Drink Containing Alcohol: 4 or more times a week Recent Travel in [facility] within the Last 8 Weeks: No Recent Out of Country Travel within the Last 8 Weeks: No Substance Abuse Detail Alcohol: Substance Use Status: Active Route Used Substance Abuse: By Mouth Substance Frequency: DAILY LIQUOR Immunization History Tetanus Immunization: Unsure Hx Influenza Vaccine This Season: No Exam Const General: healthy appearing and no acute distress HENID Head: normocephalic and atraumatic Face and sinus: normal facial exam Eyes General: appearance normal, both eyes and all related structures Pupils: PERRL Chest Chest: normal inspection of the chest Resp Effort & Inspection: normal respiratory effort Other: Diminished at bases bilaterally Cardio Rate: regular rate Rhythm: regular rhythm GI Inspection: non-distended Palpation: soft and nontender Back/Spine/Pelvis Other: Erythema to bilateral buttocks, compartments soft Skin General: no rashes or lesions noted Neuro General: alert, awake, oriented x3 and no focal motor deficits Psych Affect: normal affect Course Initial Documented Vital Signs Temperature 98.3 F 06/13/18 15:43 Pulse Rate 99 H 06/13/18 15:43 Respiratory Rate 18 06/13/18 15:43 Blood Pressure 132/61 06/13/18 15:43 Pulse Oximetry 98 06/13/18 15:43 Last Documented Vital Signs Temperature 98.3 F 06/13/18 15:43 Pulse Rate 99 H 06/13/18 15:43 Respiratory Rate 18 06/13/18 15:43 Blood Pressure 132/61 06/13/18 15:43 Pulse Oximetry 98 06/13/18 15:43 Medical Decision Making [facility] Narrative Medical decision making narrative: Assessment: 62yM presenting with generalized weakness, fall at home with prolonged downtime Plan: EKG and monitor Labs, including CPK IV fluids CXR Addendum: This patient cannot go home as he has chest pain with elevated troponin concerning for acute coronary syndrome. He will need cardiac monitoring and serial enzyme measurements. I did not give aspirin as the patient is on a novel anticoagulant at home. He understands and agrees with plan for observation. Case discussed with Dr. Lal of [facility]. Medical Screen Exam Complete: Yes Emergency Medical Condition: Yes Differential Diagnosis Differential Diagnosis: Differential diagnosis includes, but is not limited to: rhabdomyolysis, dehydration, electrolyte abnormality, anemia, arrhythmia Medical Records Medical records reviewed: Yes I reviewed the patient's medical records. Lab Data Lab results reviewed: Yes I reviewed the patient's lab results. Result diagrams: 06/13/18 16:34 06/13/18 16:34 Lab Results 06/13/18 06/13/18 06/13/18 Range/Units 16:34 16:34 16:34 WBC 10.7 (4.0-11.0) th/mm3 RBC 3.28 L (4.50-5.90) mil/mm3 Hgb 9.0 L (13.0-17.0) gm/dL Hct 28.8 L (39.0-51.0) % MCV 87.8 (80.0-100.0) fL MCH 27.4 (27.0-34.0) pg MCHC 31.2 L (32.0-36.0) % RDW 21.1 H (11.6-17.2) % Plt Count 174 D (150-450) th/mm3 MPV 8.9 (7.0-11.0) fL Neut % (Auto) 86.0 H (16.0-70.0) % Lymph % (Auto) 6.4 L (9.0-44.0) % [place] % (Auto) 5.9 (0.0-8.0) % Eos % (Auto) 1.3 (0.0-4.0) % Baso % (Auto) 0.4 (0.0-2.0) % Neut # (Auto) 9.2 H (1.8-7.7) th/mm3 Lymph # (Auto) 0.7 L (1.0-4.8) th/mm3 [place] # (Auto) 0.6 (0.0-0.9) th/mm3 Eos # (Auto) 0.1 (0.0-0.4) th/mm3 Baso # (Auto) 0.0 (0.0-0.2) th/mm3 WBC Differential . Differential Comment Auto diff final Sodium 146 H (136-145) meq/L Potassium 3.3 L (3.5-5.1) meq/L Chloride 102 (98-107) meq/L Carbon Dioxide 33.3 H (21.0-32.0) meq/L Anion Gap 11 (5-15) meq/L BUN 37 H (7-18) mg/dL Creatinine 1.04 (0.60-1.30) mg/dL Estimated GFR 72 L (>89) mL/min Random Glucose 66 L (74-106) mg/dL Calcium 8.4 L (8.5-10.1) mg/dL Magnesium 2.2 (1.5-2.5) mg/dL Total Bilirubin 1.3 H (0.2-1.0) mg/dL AST 25 (15-37) U/L ALT 33 (12-78) U/L Alkaline Phosphatase 157 H (45-117) U/L Total Creatine Kinase 100 (39-308) U/L Troponin I (0.02-0.05) ng/mL Total Protein 6.6 D (6.4-8.2) g/dL Albumin 3.4 (3.4-5.0) g/dL Blood Type O Positive Antibody Screen Negative 06/13/18 Range/Units 16:34 WBC (4.0-11.0) th/mm3 RBC (4.50-5.90) mil/mm3 Hgb (13.0-17.0) gm/dL Hct (39.0-51.0) % MCV (80.0-100.0) fL MCH (27.0-34.0) pg MCHC (32.0-36.0) % RDW (11.6-17.2) % Plt Count (150-450) th/mm3 MPV (7.0-11.0) fL Neut % (Auto) (16.0-70.0) % Lymph % (Auto) (9.0-44.0) % [place] % (Auto) (0.0-8.0) % Eos % (Auto) (0.0-4.0) % Baso % (Auto) (0.0-2.0) % Neut # (Auto) (1.8-7.7) th/mm3 Lymph # (Auto) (1.0-4.8) th/mm3 [place] # (Auto) (0.0-0.9) th/mm3 Eos # (Auto) (0.0-0.4) th/mm3 Baso # (Auto) (0.0-0.2) th/mm3 WBC Differential Differential Comment Sodium (136-145) meq/L Potassium (3.5-5.1) meq/L Chloride (98-107) meq/L Carbon Dioxide (21.0-32.0) meq/L Anion Gap (5-15) meq/L BUN (7-18) mg/dL Creatinine (0.60-1.30) mg/dL Estimated GFR (>89) mL/min Random Glucose (74-106) mg/dL Calcium (8.5-10.1) mg/dL Magnesium (1.5-2.5) mg/dL Total Bilirubin (0.2-1.0) mg/dL AST (15-37) U/L ALT (12-78) U/L Alkaline Phosphatase (45-117) U/L Total Creatine Kinase (39-308) U/L Troponin I 0.14 H (0.02-0.05) ng/mL Total Protein (6.4-8.2) g/dL Albumin (3.4-5.0) g/dL Blood Type Antibody Screen Imaging Data Radiologist's impression: Chest X-Ray 06/13/18 17:31 CONCLUSION: Moderate to marked cardiomegaly again noted with no definite confluent infiltrates or effusions. The right phrenic angle was not included. ECG Data Attestation: I personally reviewed and interpreted this ECG as follows: Interpretation: Rate: 105 BPM Rhythm: Sinus with PVCs/PACs [place]: Normal Intervals: RBBB, QTc 400 ms Q waves: None T waves: Inverted in III, aVF, V4-V6 ST segments: No elevations or depressions Impression: No significant changes as compared to EKG from 05/01/2018. Discharge Plan Discharge Disposition Patient Disposition: 30 Still Patient Discharge Condition Condition: Good Discharge Details Diagnosis: ACS (acute coronary syndrome) Physicians Team ED Provider: Paulina Mckinney Primary Care Provider: NON STAFF,PROVIDER Rxs /Orders / Referrals /Forms Prescriptions: No Action ferrous sulfate [FeroSul] 325 mg (65 mg iron) Tablet 325 mg PO BID Qty: 60 RF: 0 acetaminophen [Tylenol] 325 mg Tablet 650 mg PO Q4H PRN (Reason: Pain) RF: 0 insulin aspart U-100 [Novolog Flexpen U-100 Insulin] 100 unit/mL Insulin Pen 2 - 12 unit SUB-Q ACHS RF: 0 prednisone 10 mg Tablet 10 mg PO DIRECTED 30 Days Qty: 30 RF: 0 albuterol sulfate 1.25 mg/3 mL Solution For Nebulization 1.25 mg INHALATION Q4-6H PRN (Reason: sob) 30 Days RF: 0 atorvastatin 40 mg Tablet 40 mg PO HS RF: 0 torsemide 20 mg Tablet 40 mg PO DAILY RF: 0 metoprolol tartrate 100 mg Tablet 100 mg PO BID RF: 0 acetazolamide 125 mg Tablet 125 mg PO BID RF: 0 calcium acetate 667 mg Tablet 667 mg PO TID RF: 0 digoxin 250 mcg Tablet 0.25 mg PO DAILY RF: 0 potassium chloride [Klor-Con] 20 mEq Packet 1 packet PO DAILY RF: 0 albuterol sulfate [Ventolin HFA] 90 mcg/actuation Hfa Aerosol Inhaler 1 puff Inhalation Q4HR PRN (Reason: Shortness Of Breath) RF: 0 diltiazem HCl [Cardizem LA] 240 mg Tablet Extended Release 24 Hr 240 mg PO DAILY RF: 0 ipratropium bromide [Atrovent HFA] 17 mcg/actuation Hfa Aerosol Inhaler 1 puff Inhalation Q6HR PRN (Reason: Shortness Of Breath) RF: 0 budesonide-formoterol [Symbicort] 160-4.5 mcg/actuation Hfa Aerosol Inhaler 2 puff Inhalation BID RF: 0 omeprazole 20 mg Tablet,Delayed Release (Dr/Ec) 20 mg PO DAILY RF: 0 rivaroxaban 10 mg Tablet 10 mg PO DAILY RF: 0 tamsulosin 0.4 mg Capsule,Extended Release 24hr 0.4 mg PO DAILY RF: 0 melatonin 5 mg Tablet 5 mg PO HS PRN (Reason: Insomnia) RF: 0 bumetanide 1 mg Tablet 1 mg PO BID Qty: 0 RF: 0 Status ED Status: With Doctor
[2018-06-13 17:31] LABS: Alanine Aminotransferase 33 U/L (12-78); Albumin 3.4 g/dL (3.4-5.0); Alkaline Phosphatase 157 U/L (45-117); Anion Gap 11 meq/L (5-15); Aspartate Aminotransferase 25 U/L (15-37); Blood Urea Nitrogen 37 mg/dL (7-18); Calcium 8.4 mg/dL (8.5-10.1); Carbon Dioxide 33.3 meq/L (21.0-32.0); Chloride 102 meq/L (98-107); Creatine Kinase 100 U/L (39-308); Glomerular Filtration Rate 72 mL/min (>89); Glucose,Random 66 mg/dL (74-106); Magnesium 2.2 mg/dL (1.5-2.5); Potassium 3.3 meq/L (3.5-5.1); Sodium 146 meq/L (136-145); Total Protein 6.6 g/dL (6.4-8.2)
--- NOTE | 2018-06-13 18:18 | XR ---
EXAM DATE: 06/13/2018 5:31 PM EDT AGE/SEX: 62 years / Male INDICATIONS: CHF. CLINICAL DATA: This is the patient's initial encounter. Patient reports that signs and symptoms have been present for 1 day and indicates a pain score of 0/10. MEDICAL/SURGICAL HISTORY: . Congestive heart failure. Chronic obstructive pulmonary disease. D iabetes. A-fib. Renal disease. . Appendectomy. Tonsillectomy. COMPARISON: [facility] [place], CHEST 1V SINGLE AP, 06/10/2018. . FINDINGS: 2 AP portable semierect views of the chest were obtained and again demonstrate moderate to marked car diomegaly. There are no confluent infiltrates or definite effusions are identified. The bony thorax r emains intact in appearance. The right costophrenic angle is obscured. There are overlying electrocar diogram leads. CONCLUSION: Moderate to marked cardiomegaly again noted with no definite confluent infiltrates or effusions. The right phrenic angle was not included. Electronically signed by: Maldonado Champagne MD 06/13/2018 6:17 PM EDT
[2018-06-13] MEDS ORDERED: Acetaminophen 325 MG Tablet PO PRN (18:56)
[2018-06-13] MEDS ORDERED: Bisacodyl 10 MG Supp RECTAL PRN (18:56)
--- NOTE | 2018-06-13 19:07 | P.HPIM ---
History of Present Illness Primary Care Physician: PROVIDER NON STAFF History of Present Illness: This is a 62-year-old male with a PMH of HTN, Hyperlipidemia, A. fib on Xarelto , CHF (Echo 12/24/2017 with EF 50-55%), COPD, CKD and h/o GI Bleed who was brought to the ER after fall. Pt states he "rolled out of bed" early this morning and was unable to get up for several hours until EMS was called. Multiple admits in the last 1-2 months for CHF/COPD and GI Bleed. Reports episode of SOB and chest pain while trying to crawl around on the floor. Pain is substernal, non-radiating, moderate, 7/10, associated w/ SOB, now resolved. On arrival, BP 132/61, HR 99, O2 sat 98% on RA, Afebrile. CBC at baseline. Chemistry essentially unremarkable except for K+ 3.3. Troponin 0.14. CXR with moderate to marked cardiomegaly, no definite infiltrates or effusions. Currently chest pain free. - Diagnosis (1) Fall (2) NSTEMI (non-ST elevated myocardial infarction) (3) Afib (4) CHF (congestive heart failure) (5) DENIS (obstructive sleep apnea) (6) COPD (chronic obstructive pulmonary disease) Review of Systems PAST FAMILY HISTORY: Reviewed. No h/o DM or CAD All other systems reviewed negative except as stated in HPI FOR[facility]LY [facility], [facility] - History History Provided By: Patient - Medical History Medical History: Medical History (Last Reviewed 06/13/18 @ 17:24 by Paulina Mckinney DO) Hyperlipidemia (Acute) Hypertension (Acute) DENIS (obstructive sleep apnea) (Acute) COPD (chronic obstructive pulmonary disease) (Acute) History of alcohol abuse Atrial fibrillation CHF (congestive heart failure) Diabetes mellitus - Surgical History Surgical History: Surgical History (Last Reviewed 06/13/18 @ 17:24 by Paulina Mckinney DO) History of surgery on arm (Acute) Hx of tonsillectomy (Acute) H/O cardiac radiofrequency ablation (Acute) History of appendectomy (Acute) - Family History Family History: Family History (Last Reviewed 06/13/18 @ 17:24 by Paulina Mckinney DO) Father Diabetes mellitus Hypertension Mother Diabetes mellitus - Tobacco History Second Hand Smoke Exposure: No Smoking Status: Never smoker - Alcohol History How Often Do You Have a Drink Containing Alcohol: 4 or more times a week - Substance Use History Substance History: Active Abuse - Substance Use Type Alcohol Status: Active Route Used: By Mouth Frequency: DAILY LIQUOR - Travel History Recent Travel in the [place] Within the Last 8 Weeks: No Recent Travel Out of the Country Within the Last 8 Weeks: No - Immunization History Tetanus Immunization: Unsure Hx Influenza Vaccine This Season: No Medications and Allergies Active Medications: Active Medications Acetaminophen (Tylenol) 650 mg PO Q4H PRN PRN Reason: Temp > 100.4 Al Hydroxide/Mg Hydroxide (Milk Of Magnesia Liq) 30 ml PO Q12H PRN PRN Reason: Mild Constipation Bisacodyl (Dulcolax Supp) 10 mg RECTAL DAILY PRN PRN Reason: SEVERE CONSITIPATION Budesonide/Formoterol Fumarate (Symbicort 160/4.5 Mcg Inh) 2 puff INH BID [facility] Bumetanide (Bumex) 1 mg PO BID [facility] Digoxin (Lanoxin) 250 mcg PO DAILY [facility] Ipratropium [place] (Atroven Hfa Inh) 1 puff INH Q6HR PRN PRN Reason: Shortness Of Breath Lactulose (Lactulose Liq) 30 ml PO DAILY PRN PRN Reason: SEVERE CONSITIPATION Melatonin (Melatonin) 5 mg PO HS PRN PRN Reason: Insomnia Metoprolol Tartrate (Lopressor) 100 mg PO BID [facility] Morphine Sulfate (Morphine Inj) 2 mg IV.PUSH Q4H PRN PRN Reason: PAIN 6-10 Nitroglycerin (Nitro-Bid 2% Oint) 0.5 inch TOPICAL Q6HR PRN PRN Reason: CHEST PAIN Non-Formulary Medication (Diltiazem Hcl [Cardizem La]) 240 mg PO DAILY [facility] Non-Formulary Medication (Omeprazole [Omeprazole]) 20 mg PO DAILY [facility] Ondansetron HCl (Zofran Inj) 4 mg IV.PUSH Q6H PRN PRN Reason: NAUSEA OR VOMITING Senna/Docusate Sodium (Coco-Colace) 1 tab PO BID [facility] Sennosides (Senokot) 17.2 mg PO Q12H PRN PRN Reason: Moderate Constipation Tamsulosin HCl (Flomax) 0.4 mg PO DAILY [facility] Torsemide (Demadex) 40 mg PO DAILY [facility] Allergies Allergy/AdvReac Type Severity Reaction Status Date / Time No Known Allergies Allergy Verified 06/10/18 01:53 Home Medications Medication Instructions Recorded Confirmed Type acetazolamide 125 mg PO BID 05/22/18 06/13/18 History albuterol sulfate [Ventolin HFA] 1 puff INHALATION Q4HR PRN 05/22/18 06/13/18 History atorvastatin 40 mg PO HS 05/22/18 06/13/18 History budesonide-formoterol [Symbicort] 2 puff INHALATION BID 05/22/18 06/13/18 History calcium acetate 667 mg PO TID 05/22/18 06/13/18 History digoxin 0.25 mg PO DAILY 05/22/18 06/13/18 History diltiazem HCl [Cardizem LA] 240 mg PO DAILY 05/22/18 06/13/18 History ipratropium bromide [Atrovent HFA] 1 puff INHALATION Q6HR PRN 05/22/18 06/13/18 History metoprolol tartrate 100 mg PO BID 05/22/18 06/13/18 History omeprazole 20 mg PO DAILY 05/22/18 06/13/18 History potassium chloride [Klor-Con] 1 packet PO DAILY 05/22/18 06/13/18 History rivaroxaban 10 mg PO DAILY 05/22/18 06/13/18 History torsemide 40 mg PO DAILY 05/22/18 06/13/18 History acetaminophen [Tylenol] 650 mg PO Q4H PRN 06/01/18 06/13/18 History insulin aspart U-100 [Novolog 2 - 12 unit SUB-Q ACHS 06/01/18 06/13/18 History Flexpen U-100 Insulin] Exam Vital signs: Vital Signs 06/13/18 15:43 Temperature 98.3 F Pulse Rate 99 H Respiratory Rate 18 Blood Pressure 132/61 Pulse Oximetry 98 Intake & Output 06/13/18 06/13/18 06/14/18 06:59 18:59 06:59 Weight 147.418 kg Narrative: PE: GENERAL: Morbidly obese middle-aged white male in no acute distress. Mild dyspnea w/ speech SKIN: Focused skin assessment warm and dry. HEENT: PERRLA, EOMI. No scleral icterus or conjunctival pallor. No lid lag or facial droop. CARDIOVASCULAR: Regular rate and rhythm. No obvious murmurs to auscultation. No chest tenderness to palpation. RESPIRATORY: No obvious rhonchi or wheezing. Clear to auscultation. Breath sounds equal bilaterally, mildly diminished at bases. GASTROINTESTINAL: Abdomen soft, non-tender, nondistended. BS normal. MUSCULOSKELETAL: Extremities without clubbing, cyanosis, or edema. No obvious deformities. NEUROLOGICAL: Awake, alert and oriented x4. No focal neurologic deficits. Moving both upper and lower extremities spontaneously. PSYCHIATRIC: Appropriate mood and affect. Insight and judgment normal. Results - Labs CBC & Chem 7: 06/13/18 16:34 06/13/18 16:34 Labs: Short CBC 06/13/18 Range/Units 16:34 WBC 10.7 (4.0-11.0) th/mm3 Hgb 9.0 L (13.0-17.0) gm/dL Hct 28.8 L (39.0-51.0) % Plt Count 174 D (150-450) th/mm3 BMP 06/13/18 16:34 Sodium 146 H Potassium 3.3 L Chloride 102 Carbon Dioxide 33.3 H BUN 37 H Creatinine 1.04 Calcium 8.4 L Cardiac Enzymes 06/13/18 06/13/18 Range/Units 16:34 16:34 Total Creatine Kinase 100 (39-308) U/L Troponin I 0.14 H (0.02-0.05) ng/mL Liver Function 06/13/18 Range/Units 16:34 Total Bilirubin 1.3 H (0.2-1.0) mg/dL AST 25 (15-37) U/L ALT 33 (12-78) U/L Alkaline Phosphatase 157 H (45-117) U/L Albumin 3.4 (3.4-5.0) g/dL - Imaging Impressions Chest X-Ray 06/13/18 17:31 CONCLUSION: Moderate to marked cardiomegaly again noted with no definite confluent infiltrates or effusions. The right phrenic angle was not included. Caprini VTE Risk Assessment Caprini VTE Risk Assessment: Moderate/High Risk (score >= 2) Caprini Risk Assessment Model: Point Value = 1 Point Value = 2 Point Value = 3 Point Value = 5 Age 41-60 Minor surgery BMI > 25 kg/m2 Swollen legs Varicose veins or History of unexplained or recurrent spontaneous Oral contraceptives or hormone replacement Sepsis (< 1 month) Serious lung disease, including pneumonia (< 1 month) Abnormal pulmonary function Acute myocardial infarction Congestive heart failure (< 1 month) History of inflammatory bowel disease Medical patient at bed rest Age 61-74 Arthroscopic surgery Major open surgery (> 45 min) Laparoscopic surgery (> 45 min) Malignancy Confined to bed (> 72 hours) Immobilizing plaster cast Central venous access Age >= 75 History of VTE Family history of VTE Factor V Leiden Prothrombin [id number] Lupus anticoagulant Anticardiolipin antibodies Elevated serum homocysteine Heparin-induced thrombocytopenia Other congenital or acquired thrombophilia Stroke (< 1 month) Elective arthroplasty Hip, pelvis, or leg fracture Acute spinal cord injury (< 1 month) Prophylaxis Regimen: Total Risk Factor Score Risk Level Prophylaxis Regimen 0-1 Low Early ambulation 2 Moderate Order ONE of the following: *Sequential Compression Device (SCD) *Heparin 5000 units SQ BID 3-4 Higher Order ONE of the following medications: *Heparin 5000 units SQ TID *Enoxaparin/Lovenox 40 mg SQ daily (WT < 150 kg, CrCl > 30 mL/min) *Enoxaparin/Lovenox 30 mg SQ daily (WT < 150 kg, CrCl > 10-29 mL/min) *Enoxaparin/Lovenox 30 mg SQ BID (WT < 150 kg, CrCl > 30 mL/min) AND/OR *Sequential Compression Device (SCD) 5 or more Highest Order ONE of the following medications: *Heparin 5000 units SQ TID (Preferred with Epidurals) *Enoxaparin/Lovenox 40 mg SQ daily (WT < 150 kg, CrCl > 30 mL/min) *Enoxaparin/Lovenox 30 mg SQ daily (WT < 150 kg, CrCl > 10-29 mL/min) *Enoxaparin/Lovenox 30 mg SQ BID (WT < 150 kg, CrCl > 30 mL/min) AND *Sequential Compression Device (SCD) Assessment and Plan - Assessment (1) Fall Code(s): W19.XXXA - Unspecified fall, initial encounter Status: Acute (2) NSTEMI (non-ST elevated myocardial infarction) Code(s): I21.4 - Non-ST elevation (NSTEMI) myocardial infarction Status: Acute (3) Afib Code(s): I48.91 - Unspecified atrial fibrillation Status: Acute (4) CHF (congestive heart failure) Code(s): I50.9 - Heart failure, unspecified Status: Acute (5) DENIS (obstructive sleep apnea) Code(s): G47.33 - Obstructive sleep apnea (adult) (pediatric) Status: Acute (6) COPD (chronic obstructive pulmonary disease) Code(s): J44.9 - Chronic obstructive pulmonary disease, unspecified Status: Acute - Plan A/P: 1. Fall: s/p fall after "rolled out of bed", no injuries, reports difficulty w / ambulation and ADLs, PT for eval/tx, Case Management for assistance w/ possible placement at time of d/c. 2. NSTEMI: Trop 0.14, previously normal, EKG w/ no acute ischemia, currently chest pain free. Admit to [facility], Telemetry, check serial cardiac enzymes, on Xarelto-will hold further anticoagulation at this time. Resume Statin, Metoprolol, start ASA. Consult Cardiology for further eval/intervention. 3. A-fib: Chronic. Resume home Cardizem, check Dig level, Telemetry. 4. CHF: Chronic. Diastolic. Echo 12/24/17 w/ EF50-55%, multiple admissions since 04/2018 for CHF Exacerbation, CXR w/ no effusions/pulmonary congestion, images reviewed. Resume home Bumex and Torsemide, monitor I/O. 5. COPD: Chronic Respiratory Failure. Resume home Symbicort, Atrovent, monitor O2. 6. DENIS: CPAP at night. 7. DVT Prophylaxis: On Xarelto 8. Social work for d/c planning as needed 9. Case discussed w/ ER physician at length, labs/records/imaging reviewed by me (4) CHF (congestive heart failure) Qualifiers: Heart failure type: unspecified Heart failure chronicity: chronic Qualified Code(s): I50.9 - Heart failure, unspecified (6) COPD (chronic obstructive pulmonary disease) Qualifiers: COPD type: COPD with acute lower respiratory infection Qualified Code(s): J44.0 - Chronic obstructive pulmonary disease with acute lower respiratory infection
[2018-06-13] MEDS ORDERED: Tiotropium Bromide 18 MCG/ACT Inhaler INH SCH (21:00)
[2018-06-13] MEDS: Senna/Docusate Sodium 8.6/50 MG Tablet PO SCH (21:41)
[2018-06-13] MEDS: Metoprolol Tartrate 100 MG Tablet PO SCH (21:42)
[2018-06-13] MEDS: Melatonin 5 MG Tablet PO PRN (22:25)
[2018-06-13] MEDS: Budesonide-Formoterol 160/4.5 MCG 6 GM Inhaler INH SCH (22:25)
[2018-06-14 00:55] LABS: Digoxin 1.6 ng/mL (0.8-2.0); Troponin I 0.14 ng/mL (0.02-0.05)
[2018-06-14 07:10] LABS: Baso % (Auto) 0.2 % (0.0-2.0); Eos # (Auto) 0.1 th/mm3 (0.0-0.4); Eos % (Auto) 1.4 % (0.0-4.0); Hematocrit 26.1 % (39.0-51.0); Hemoglobin 7.8 gm/dL (13.0-17.0); Lymph # (Auto) 0.7 th/mm3 (1.0-4.8); Lymph % (Auto) 7.1 % (9.0-44.0); Mean Corpuscular Hemoglobin 26.4 pg (27.0-34.0); Mean Corpuscular Volume 88.5 fL (80.0-100.0); Mean Platelet Volume 8.4 fL (7.0-11.0); Mono # (Auto) 0.7 th/mm3 (0.0-0.9); Mono % (Auto) 7.5 % (0.0-8.0); Neut # (Auto) 8.3 th/mm3 (1.8-7.7); Neut % (Auto) 83.8 % (16.0-70.0); Platelet Count 157 th/mm3 (150-450); Red Blood Count 2.94 mil/mm3 (4.50-5.90); White Blood Count 9.9 th/mm3 (4.0-11.0)
[2018-06-14 07:12] LABS: Mean Corpuscular HGB Conc 29.9 % (32.0-36.0)
[2018-06-14 07:35] LABS: Alanine Aminotransferase 29 U/L (12-78); Albumin 3.2 g/dL (3.4-5.0); Anion Gap 9 meq/L (5-15); Aspartate Aminotransferase 20 U/L (15-37); Blood Urea Nitrogen 39 mg/dL (7-18); Carbon Dioxide 34.6 meq/L (21.0-32.0); Chloride 102 meq/L (98-107); Glomerular Filtration Rate 67 mL/min (>89); Glucose,Random 90 mg/dL (74-106); Potassium 3.8 meq/L (3.5-5.1); Sodium 146 meq/L (136-145)
[2018-06-14 07:38] LABS: Alkaline Phosphatase 153 U/L (45-117)
[2018-06-14] MEDS ORDERED: Torsemide 20 MG Tablet PO SCH (09:00)
[2018-06-14] MEDS: dilTIAZem CD 240 MG Capsule PO SCH (10:20)
[2018-06-14] MEDS: Metoprolol Tartrate 100 MG Tablet PO SCH ×2 (10:21→21:41)
[2018-06-14] MEDS: Pantoprazole Sodium 20 MG DR Tablet PO SCH (10:21)
[2018-06-14] MEDS: Digoxin 250 MCG Tablet PO SCH (10:22)
[2018-06-14] MEDS: Senna/Docusate Sodium 8.6/50 MG Tablet PO SCH ×2 (10:22→21:41)
[2018-06-14] MEDS: Budesonide-Formoterol 160/4.5 MCG 6 GM Inhaler INH SCH ×2 (10:23→21:43)
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
--- NOTE | 2018-06-14 14:06 | P.PN ---
Subjective Interval history: Follow up for fall and chest pain. Patient is currently doing well. He was evaluated by cardiology. No further workup indicated by cardiology. Patient denies any chest pain, shortness of breath, fever or chills. He would like to go to [facility] if possible. Physical Exam Vital signs: Vital Signs 06/13/18 15:43 06/13/18 19:10 06/13/18 19:35 Temperature 98.3 F Pulse Rate 99 H 102 H Respiratory Rate 18 18 Blood Pressure 132/61 125/61 Pulse Oximetry 98 100 99 06/13/18 20:00 06/13/18 23:00 06/14/18 00:00 Temperature 98.2 F 98.1 F 98.1 F Pulse Rate 91 H 91 H 91 H Respiratory Rate 18 18 18 Blood Pressure 113/65 113/65 113/65 Pulse Oximetry 100 100 100 06/14/18 04:00 06/14/18 07:25 06/14/18 08:00 Temperature 97.8 F 97.8 F Pulse Rate 118 H 97 H Respiratory Rate 22 20 Blood Pressure 125/67 136/74 Pulse Oximetry 98 95 96 06/14/18 11:59 Temperature 98.2 F Pulse Rate 83 Respiratory Rate 20 Blood Pressure 124/60 Pulse Oximetry 95 Intake & Output 06/13/18 06/14/18 06/14/18 18:59 06:59 18:59 Intake Total 1240 / 1240 Output Total 200 / 200 Balance 1040 / 1040 Weight 147.418 kg 147.418 kg Intake: IV 1000 / 1000 NS Inj 1,000 ML @ Wide Open IV. 1000 / 1000 SIG BOLUS ONE Rx#:[id number] Oral 240 / 240 Output: Urine 200 / 200 Other: # Voids 1 Weight On Admission 147.418 kg Narrative: GENERAL: Alert, oriented x3, NAD. Morbidly obese. SKIN: Warm and dry. HEAD: Normocephalic. EYES: No scleral icterus. No injection or drainage. NECK: Supple, trachea midline. No JVD or lymphadenopathy. CARDIOVASCULAR: Regular rate and rhythm without murmurs, gallops, or rubs. RESPIRATORY: Breath sounds equal bilaterally. No accessory muscle use. GASTROINTESTINAL: Abdomen soft, non-tender, nondistended. MUSCULOSKELETAL: No cyanosis. Severe stasis dermatitis and lymphedema in the lower extremities present. BACK: Nontender without obvious deformity. No CVA tenderness. Results - Labs CBC & Chem 7: 06/14/18 05:54 06/14/18 05:54 Laboratory Results - last 24 hr 06/13/18 06/13/18 06/13/18 16:34 16:34 16:34 WBC 10.7 RBC 3.28 L Hgb 9.0 L Hct 28.8 L MCV 87.8 MCH 27.4 MCHC 31.2 L RDW 21.1 H Plt Count 174 D MPV 8.9 Neut % (Auto) 86.0 H Lymph % (Auto) 6.4 L [place] % (Auto) 5.9 Eos % (Auto) 1.3 Baso % (Auto) 0.4 Neut # (Auto) 9.2 H Lymph # (Auto) 0.7 L [place] # (Auto) 0.6 Eos # (Auto) 0.1 Baso # (Auto) 0.0 WBC Differential . Differential Comment Auto diff final Sodium 146 H Potassium 3.3 L Chloride 102 Carbon Dioxide 33.3 H Anion Gap 11 BUN 37 H Creatinine 1.04 Estimated GFR 72 L POC Glucose Random Glucose 66 L Calcium 8.4 L Magnesium 2.2 Total Bilirubin 1.3 H AST 25 ALT 33 Alkaline Phosphatase 157 H Total Creatine Kinase 100 Troponin I Total Protein 6.6 D Albumin 3.4 Digoxin Blood Type O Positive Antibody Screen Negative 06/13/18 06/13/18 06/13/18 16:34 19:19 19:59 WBC RBC Hgb Hct MCV MCH MCHC RDW Plt Count MPV Neut % (Auto) Lymph % (Auto) [place] % (Auto) Eos % (Auto) Baso % (Auto) Neut # (Auto) Lymph # (Auto) [place] # (Auto) Eos # (Auto) Baso # (Auto) WBC Differential Differential Comment Sodium Potassium Chloride Carbon Dioxide Anion Gap BUN Creatinine Estimated GFR POC Glucose 81 Random Glucose Calcium Magnesium Total Bilirubin AST ALT Alkaline Phosphatase Total Creatine Kinase Troponin I 0.14 H 0.15 H Total Protein Albumin Digoxin Blood Type Antibody Screen 06/14/18 06/14/18 06/14/18 00:15 05:54 05:54 WBC 9.9 RBC 2.94 L Hgb 7.8 L Hct 26.1 L MCV 88.5 MCH 26.4 L MCHC 29.9 L RDW 21.0 H Plt Count 157 MPV 8.4 Neut % (Auto) 83.8 H Lymph % (Auto) 7.1 L [place] % (Auto) 7.5 Eos % (Auto) 1.4 Baso % (Auto) 0.2 Neut # (Auto) 8.3 H Lymph # (Auto) 0.7 L [place] # (Auto) 0.7 Eos # (Auto) 0.1 Baso # (Auto) 0.0 WBC Differential . Differential Comment Auto diff final Sodium 146 H Potassium 3.8 Chloride 102 Carbon Dioxide 34.6 H Anion Gap 9 BUN 39 H Creatinine 1.10 Estimated GFR 67 L POC Glucose Random Glucose 90 Calcium 8.0 L Magnesium Total Bilirubin 1.5 H AST 20 ALT 29 Alkaline Phosphatase 153 H Total Creatine Kinase Troponin I 0.14 H Total Protein 6.0 L D Albumin 3.2 L Digoxin 1.6 Blood Type Antibody Screen - Imaging Impressions Chest X-Ray 06/13/18 17:31 CONCLUSION: Moderate to marked cardiomegaly again noted with no definite confluent infiltrates or effusions. The right phrenic angle was not included. Assessment and Plan - Assessment (1) Fall Code(s): W19.XXXA - Unspecified fall, initial encounter Status: Acute (2) NSTEMI (non-ST elevated myocardial infarction) Code(s): I21.4 - Non-ST elevation (NSTEMI) myocardial infarction Status: Acute (3) Afib Code(s): I48.91 - Unspecified atrial fibrillation Status: Acute (4) CHF (congestive heart failure) Code(s): I50.9 - Heart failure, unspecified Status: Acute (5) DENIS (obstructive sleep apnea) Code(s): G47.33 - Obstructive sleep apnea (adult) (pediatric) Status: Acute (6) COPD (chronic obstructive pulmonary disease) Code(s): J44.9 - Chronic obstructive pulmonary disease, unspecified Status: Acute - Plan This is a 62-year-old male with a PMH of HTN, Hyperlipidemia, A. fib on Xarelto , CHF (Echo 12/24/2017 with EF 50-55%), COPD, CKD and h/o GI Bleed who was brought to the ER after fall. Unable to get up, he called EMS. Patient complained of substernal chest pain. Troponin was mildly elevated. Cardiology was consulted. Chest pain - Cardiology evaluated patient. Chest pain likely not cardiac. - No further cardiac work up. - Continue aspirin. Afib CHF - Continue Bumex 1mg BID, digoxin, Diltiazem, Metoprolol Fall Deconditioning Morbid obesity - PT recommends SNF. We will try to get him back to [facility]. Discussed with CM. Full code. (4) CHF (congestive heart failure) Qualifiers: Heart failure type: unspecified Heart failure chronicity: chronic Qualified Code(s): I50.9 - Heart failure, unspecified (6) COPD (chronic obstructive pulmonary disease) Qualifiers: COPD type: COPD with acute lower respiratory infection Qualified Code(s): J44.0 - Chronic obstructive pulmonary disease with acute lower respiratory infection
--- NOTE | 2018-06-14 16:32 | ECG ---
Date Performed: 06/13/2018 Time Performed: 17:59:01 PTAGE: 62 years EKG: SINUS TACHYCARDIA WITH OCCASIONAL VENTRICULAR PREMATURE COMPLEXES WITH FREQUENT SUPRAVENTRI CULAR PREMATURE COMPLEXES INDETERMINATE AXIS RIGHT BUNDLE BRANCH BLOCK ABNORMAL ECG PREVIOUS TRACING : 06/01/2018 18.57 Since the previous tracing, no significant change noted DOCTOR: Johnny Caputo Interpretating Date/Time 06/14/2018 16:31:01
[2018-06-14] MEDS: Melatonin 5 MG Tablet PO PRN (21:42)
[2018-06-14] MEDS: Morphine Inj 4 MG/ML Vial IV.PUSH PRN (21:43)
[2018-06-15 02:15] LABS: Troponin I 0.05 ng/mL (0.02-0.05)
[2018-06-15] MEDS: Morphine Inj 4 MG/ML Vial IV.PUSH PRN ×2 (04:27→11:35)
[2018-06-15 08:16] VITALS: O2SAT 95
[2018-06-15] MEDS: Budesonide-Formoterol 160/4.5 MCG 6 GM Inhaler INH SCH (11:17)
[2018-06-15] MEDS: dilTIAZem CD 240 MG Capsule PO SCH (11:17)
[2018-06-15] MEDS: Digoxin 250 MCG Tablet PO SCH (11:21)
[2018-06-15] MEDS: Pantoprazole Sodium 20 MG DR Tablet PO SCH (11:22)
[2018-06-15] MEDS: Senna/Docusate Sodium 8.6/50 MG Tablet PO SCH (11:22)
[2018-06-15 12:45] VITALS: BP 123/72; PULSE 98; RESP 20; TEMP 98.8
--- NOTE | 2018-06-15 13:57 | P.DS ---
Date of admission: 06/14/18 10:31 Primary care physician: PROVIDER NON STAFF Brief History from admission: This is a 62-year-old male with a PMH of HTN, Hyperlipidemia, A. fib on Xarelto , CHF (Echo 12/24/2017 with EF 50-55%), COPD, CKD and h/o GI Bleed who was brought to the ER after fall. Pt states he "rolled out of bed" early this morning and was unable to get up for several hours until EMS was called. Multiple admits in the last 1-2 months for CHF/COPD and GI Bleed. Reports episode of SOB and chest pain while trying to crawl around on the floor. Pain is substernal, non-radiating, moderate, 7/10, associated w/ SOB, now resolved. On arrival, BP 132/61, HR 99, O2 sat 98% on RA, Afebrile. CBC at baseline. Chemistry essentially unremarkable except for K+ 3.3. Troponin 0.14. CXR with moderate to marked cardiomegaly, no definite infiltrates or effusions. Currently chest pain free. DS: Diagnosis - Discharge Diagnosis (1) Fall Status: Acute (2) NSTEMI (non-ST elevated myocardial infarction) Status: Acute (3) Afib Status: Acute (4) CHF (congestive heart failure) Status: Acute (5) DENIS (obstructive sleep apnea) Status: Acute (6) COPD (chronic obstructive pulmonary disease) Status: Acute DS: Summary Hospital Course: This is a 62-year-old male with a PMH of HTN, Hyperlipidemia, A. fib on Xarelto , CHF (Echo 12/24/2017 with EF 50-55%), COPD, CKD and h/o GI Bleed who was brought to the ER after fall. Unable to get up, he called EMS. Patient complained of substernal chest pain. Troponin was mildly elevated. Cardiology was consulted. Chest pain - Cardiology evaluated patient. Chest pain likely not cardiac. - No further cardiac work up. - Continue aspirin. Afib CHF - Continue Bumex 1mg BID, digoxin, Diltiazem, Metoprolol Fall Deconditioning Morbid obesity - PT recommends SNF. Pt is going to [facility]. Full code. - Time Spent with Patient Total time spent providing and/or coordinating discharge services: Less than 30 minutes - Quality: VTE Deep Vein Thrombosis/Pulmonary Embolism Present on Admission: No Exam Vital signs: Vital Signs 06/14/18 16:00 06/14/18 20:00 06/15/18 00:00 Temperature 98.8 F 98.9 F Pulse Rate 80 85 80 Respiratory Rate 20 16 24 Blood Pressure 110/57 L 114/57 L 114/57 L Pulse Oximetry 93 L 94 L 90 L 06/15/18 01:26 06/15/18 02:53 06/15/18 04:23 Temperature 98.9 F Pulse Rate 81 78 78 Respiratory Rate 22 20 Blood Pressure 109/61 Pulse Oximetry 92 L 06/15/18 08:15 06/15/18 11:29 06/15/18 12:00 Temperature 98.9 F 98.8 F Pulse Rate 92 H 83 98 H Respiratory Rate 18 21 20 Blood Pressure 114/64 123/72 Pulse Oximetry 95 95 Intake & Output 06/14/18 06/15/18 06/15/18 18:59 06:59 18:59 Intake Total 700 / 700 960 / 960 Output Total 740 / 740 Balance 700 / 700 220 / 220 Intake: Oral 700 / 700 960 / 960 Output: Urine 740 / 740 Results Procedures completed during hospitalization: None Labs on day of discharge: Labs from last 24 hours 06/15/18 01:35 Total Creatine Kinase 53 Troponin I 0.05 - Impressions ITS Impressions Chest X-Ray 06/13/18 17:31 CONCLUSION: Moderate to marked cardiomegaly again noted with no definite confluent infiltrates or effusions. The right phrenic angle was not included. Discharge Plan - Discharge Disposition Patient Disposition: Discharge to SNF - Discharge Condition Condition: Fair - Discharge Order Discharge Orders: Discharge Order (Routine); Ordered 06/15/18 Ordered By: Ebenezer Liz - Discharge Details Anticipated Discharge Date: 06/15/18 - Physicians Team Primary Care Provider: NON STAFF,PROVIDER Attending Provider: Ebenezer Liz Other Providers: [employer] ; Dorie Carvajal MD ; [facility],[place]
[2018-06-15] MEDS: Metoprolol Tartrate 100 MG Tablet PO SCH (14:56)
--- NOTE | 2018-06-15 17:18 | ECG ---
Date Performed: 06/15/2018 Time Performed: 00:58:08 PTAGE: 62 years EKG: LIKELY Sinus rhythm WITH PACs RIGHT BUNDLE BRANCH BLOCK HEAVY BASELINE ARTIFACT PRECLUDES PRECISE DIAGNOSIS RECOMMEND RE PEAT EKG Compared to previous tracing, HR is slower ABNORMAL ECG PREVIOUS TRACING : 06/15/2018 00.56 DOCTOR: Roni Goodman Interpretating Date/Time 06/15/2018 17:15:54
== END 2018-06-15 16:15 ==
LOC: NEDA 15:32 → NEPC 15:32 → NEPGCP 20:12
PROVIDERS: ADMIT Hospitalist; ATTEND Hospitalist

== ENCOUNTER 2018-06-27 06:09 | Inpatient (IN) ==
[2018-06-27] MEDS ORDERED: MethylPREDNISolone Sod Succinate Inj 125 MG/2 ML Vial IV.PUSH ONE (06:30)
[2018-06-27 06:57] LABS: ABG Base Excess 17.2 mmol/L (-2-2); ABG PCO2 67 mmHg (38-42); ABG PO2 75 mmHg (61-120)
[2018-06-27 07:03] LABS: Baso # (Auto) 0.1 th/mm3 (0.0-0.2); Baso % (Auto) 1.2 % (0.0-2.0); Eos # (Auto) 0.1 th/mm3 (0.0-0.4); Eos % (Auto) 2.9 % (0.0-4.0); Hematocrit 25.4 % (39.0-51.0); Lymph # (Auto) 0.6 th/mm3 (1.0-4.8); Lymph % (Auto) 13.3 % (9.0-44.0); Mean Corpuscular HGB Conc 31.5 % (32.0-36.0); Mean Corpuscular Volume 89.1 fL (80.0-100.0); Mean Platelet Volume 7.3 fL (7.0-11.0); Mono # (Auto) 0.5 th/mm3 (0.0-0.9); Mono % (Auto) 10.3 % (0.0-8.0); Neut # (Auto) 3.4 th/mm3 (1.8-7.7); Neut % (Auto) 72.3 % (16.0-70.0); Platelet Count 269 th/mm3 (150-450); Red Blood Count 2.85 mil/mm3 (4.50-5.90); Red Cell Distribution Width 22.6 % (11.6-17.2); White Blood Count 4.7 th/mm3 (4.0-11.0)
--- NOTE | 2018-06-27 07:09 | XR ---
EXAM DATE: 06/27/2018 6:30 AM EDT AGE/SEX: 62 years / Male INDICATIONS: Shortness of breath. CLINICAL DATA: This is the patient's initial encounter. Patient reports that signs and symptoms have been present for 1 day and indicates a pain score of 0/10. MEDICAL/SURGICAL HISTORY: Congestive heart failure. Chronic obstructive pulmonary disease. Di abetes. A-fib. Renal disease. None. COMPARISON: [facility] [place], CHEST 1V SINGLE AP, 06/17/2018. . FINDINGS: Single upright AP view of the chest demonstrates moderate cardiomegaly with diffuse cephalization of pulmonary vasculature. Layering moderate sized right-sided pleural effusion. Improved aeration of the left hemithorax with a small layering pleural effusion. CONCLUSION: Slightly improved lung exam. Findings are compatible with congestive heart failure and pulmonary freda a versus volume overload from patient's renal disease. Electronically signed by: Chela Santos MD 06/27/2018 7:08 AM EDT
--- NOTE | 2018-06-27 07:31 | ED ---
HPI General Chief Complaint: Respiratory Symptoms Stated Complaint: Diff breathing Time Seen by Provider: 06/27/18 06:22 Source: patient and old records reviewed Mode of arrival: EMS Limitations: no limitations History of Present Illness 62-year-old male came to the emergency room brought by EMS for respiratory distress and hypoxia. Patient has history of COPD and congestive heart failure. He was seen and admitted in the hospital here a few weeks ago for similar complaint and after which he was sent to a care home. Patient is in a rehab currently and was found to be in respiratory distress with oxygen saturation of 50%. He was given a breathing treatment and EMS was called. Upon arrival patient was saturating mid 90s. Patient requires oxygen at all times and is on 4 L of oxygen. He has been answering questions appropriately although he appears to be in distress. He has history of A. fib and has been seeing Dr. Page. He has had ablations in the past. He takes Xarelto. Patient denies any history of intubation in the past. MD Complaint: Reports shortness of breath Onset (ago): minute(s) Severity: severe Relieving factors: oxygen Exacerbating factors: lying flat Known history of: Reports COPD and congestive heart failure Related Data Home Medications Medication Instructions Recorded Confirmed albuterol sulfate [Ventolin HFA] 1 puff INHALATION Q4HR PRN 05/22/18 06/27/18 atorvastatin 40 mg PO HS 05/22/18 06/27/18 budesonide-formoterol [Symbicort] 2 puff INHALATION BID 05/22/18 06/27/18 calcium acetate 667 mg PO TID 05/22/18 06/27/18 digoxin 0.25 mg PO DAILY 05/22/18 06/27/18 diltiazem HCl [Cardizem LA] 240 mg PO DAILY 05/22/18 06/27/18 ipratropium bromide [Atrovent HFA] 1 puff INHALATION Q6HR PRN 05/22/18 06/27/18 metoprolol tartrate 100 mg PO BID 05/22/18 06/27/18 omeprazole 20 mg PO DAILY 05/22/18 06/27/18 potassium chloride [Klor-Con] 1 packet PO DAILY 05/22/18 06/27/18 rivaroxaban 10 mg PO DAILY 05/22/18 06/27/18 acetaminophen [Tylenol] 650 mg PO Q4H PRN 06/01/18 06/27/18 insulin aspart U-100 [Novolog 2 - 12 unit SUB-Q ACHS 06/01/18 06/27/18 Flexpen U-100 Insulin] bisacodyl [Dulcolax (bisacodyl)] 10 mg VT DAILY PRN 06/17/18 06/27/18 ferrous sulfate 325 mg PO BID 06/17/18 06/27/18 furosemide 40 mg IV DAILY 06/17/18 06/27/18 furosemide [Lasix] 40 mg PO DAILY 06/17/18 06/27/18 magnesium citrate [Citroma] 30 ml PO DAILY PRN 06/17/18 06/27/18 magnesium hydroxide [Milk of 30 ml PO DAILY PRN 06/17/18 06/27/18 Magnesia] melatonin 6 mg PO HS PRN 06/17/18 06/27/18 methylprednisolone sod suc(PF) 125 mg IM QAM 06/17/18 06/27/18 [Solu-Medrol (PF)] multivitamin with minerals 1 tab PO DAILY 06/17/18 06/27/18 torsemide 20 mg PO BID 06/17/18 06/27/18 escitalopram oxalate 10 mg PO DAILY 06/27/18 06/27/18 Previous Rx's Medication Instructions Recorded bumetanide 1 mg PO BID #0 tab 05/26/18 tamsulosin 0.4 mg PO DAILY cap 05/26/18 albuterol sulfate 1.25 mg INHALATION Q4-6H PRN 30 06/09/18 Days ml aspirin 81 mg PO DAILY tab 06/15/18 levofloxacin [Levaquin] 500 mg PO DAILY #7 tab 06/30/18 prednisone 20 mg PO BID #10 tab 06/30/18 Allergies Allergy/AdvReac Type Severity Reaction Status Date / Time No Known Allergies Allergy Verified 06/17/18 17:22 Review of Systems ROS: all other systems reviewed are negative Respiratory Reports dyspnea [facility] Medical History Medical History Hyperlipidemia (Acute) Hypertension (Acute) DENIS (obstructive sleep apnea) (Acute) COPD (chronic obstructive pulmonary disease) (Acute) Anemia (Acute) Atrial fibrillation (Acute) BPH (benign prostatic hyperplasia) (Acute) CHF (congestive heart failure) (Acute) Diabetes mellitus (Acute) GERD (gastroesophageal reflux disease) (Acute) Generalized edema (Acute) Generalized weakness (Acute) History of alcohol abuse (Acute) Insomnia (Acute) Morbid obesity (Acute) Surgical History Surgical History History of surgery on arm (Acute) Hx of tonsillectomy (Acute) H/O cardiac radiofrequency ablation (Acute) History of appendectomy (Acute) Family History Family History Father Diabetes mellitus Hypertension Mother Diabetes mellitus Social History Social History Substance History: No History of Abuse Second Hand Smoke Exposure: Yes Smoking Status: Never smoker How Often Do You Have a Drink Containing Alcohol: 4 or more times a week Hx Recent Travel: No Recent Travel in [facility] within the Last 8 Weeks: No Recent Out of Country Travel within the Last 8 Weeks: No Immunization History Tetanus Immunization: Unsure Exam Narrative Exam Narrative: GENERAL: Awake, alert, moderate to significant distress, morbidly obese SKIN: Diaphoresis HEAD: Atraumatic. Normocephalic. EYES: Pupils equal and round. No scleral icterus. No injection or drainage. ENT: No nasal bleeding or discharge. Mucous membranes pink and moist. NECK: Trachea midline. No JVD. CARDIOVASCULAR: Regular rate and rhythm. No murmur appreciated. RESPIRATORY:. Clear to auscultation. Decreased breath sounds bilaterally. GASTROINTESTINAL: Abdomen soft, non-tender, nondistended. Hepatic and splenic margins not palpable. MUSCULOSKELETAL: No obvious deformities. No clubbing. No cyanosis. 3+ pedal edema NEUROLOGICAL: Awake and alert. No obvious cranial nerve deficits. Motor grossly within normal limits. Normal speech. PSYCHIATRIC: Appropriate mood and affect; insight and judgment normal. Course Initial Documented Vital Signs Temperature 97.8 F 06/27/18 06:14 Pulse Rate 77 06/27/18 06:14 Respiratory Rate 20 06/27/18 06:14 Blood Pressure 104/67 06/27/18 06:14 Pulse Oximetry 96 06/27/18 06:14 Last Documented Vital Signs Temperature 98.0 F 06/30/18 16:00 Pulse Rate 77 10/17/18 18:59 Respiratory Rate 18 06/30/18 18:59 Blood Pressure 125/64 06/30/18 16:00 Pulse Oximetry 96 06/30/18 19:00 Sign Out Sign Out Data: Patient Sign Out occurred on 06/27/18 at 08:05. Patient's care was discussed, and care was transferred from Suhail Ybarra to Chao Mckeon MD. Sign Out Comment: Respiratory distress. Follow-up on blood test and x-ray. Patient needs to be admitted. Last updated by Suhail Ybarra MD at 06/27/18 07:16 Post-Handoff Eval: Patient signed out to me by Dr. Ybarra at change of shift. We are awaiting laboratory test. Patient has acute on chronic kidney injury. The patient also has CHF noted on his chest x-ray. Patient's blood gas on 40% showed a normal pH with a PCO2 of 66.5 and a PO2 of 74.6. The patient will be admitted for observation for diuresis. There is a call out to Dr. Jama with the [facility] hospitalist service. Medical Decision Making MDM Narrative Medical decision making narrative: Patient will be transferred to the oncoming ER physician for follow-up labs and admission eventually. He was started on BiPAP. He was given a dose of DuoNeb as well. Medical Screen Exam Complete: Yes Emergency Medical Condition: Yes Lab Data Result diagrams: 06/30/18 07:56 06/30/18 07:56 Lab Results 06/27/18 06/27/18 06/27/18 Range/Units 06:45 06:45 06:45 WBC 4.7 (4.0-11.0) th/mm3 RBC 2.85 L (4.50-5.90) mil/mm3 Hgb 8.0 L (13.0-17.0) gm/dL Hct 25.4 L (39.0-51.0) % MCV 89.1 (80.0-100.0) fL MCH 28.0 (27.0-34.0) pg MCHC 31.5 L (32.0-36.0) % RDW 22.6 H (11.6-17.2) % Plt Count 269 D (150-450) th/mm3 MPV 7.3 (7.0-11.0) fL Neut % (Auto) 72.3 H (16.0-70.0) % Lymph % (Auto) 13.3 (9.0-44.0) % [place] % (Auto) 10.3 H (0.0-8.0) % Eos % (Auto) 2.9 (0.0-4.0) % Baso % (Auto) 1.2 (0.0-2.0) % Neut # (Auto) 3.4 (1.8-7.7) th/mm3 Lymph # (Auto) 0.6 L (1.0-4.8) th/mm3 [place] # (Auto) 0.5 (0.0-0.9) th/mm3 Eos # (Auto) 0.1 (0.0-0.4) th/mm3 Baso # (Auto) 0.1 (0.0-0.2) th/mm3 WBC Differential . Differential Comment Auto diff final Puncture Site Patient Temperature O2 Saturation (90-100) % ABG pH (7.380-7.420) ABG pCO2 (38-42) mmHg ABG pO2 (61-120) mmHg ABG HCO3 (22-26) mmol/L ABG O2 Content (12.0-20.0) Vol % ABG Base Excess (-2-2) mmol/L ABG Methemoglobin (0-2) % Daryn Test Hemoglobin (12.0-16.0) G/DL Carboxyhemoglobin (0-4) % O2 Delivery Device Vent Setting Inspired O2 % Critical Value Sodium 139 (136-145) meq/L Potassium 4.4 (3.5-5.1) meq/L Chloride 92 L (98-107) meq/L Carbon Dioxide 43.2 H (21.0-32.0) meq/L Anion Gap 4 L (5-15) meq/L BUN 38 H (7-18) mg/dL Creatinine 1.55 H (0.60-1.30) mg/dL Estimated GFR 45 L (>89) mL/min POC Glucose (68-110) mg/dl Random Glucose 102 (74-106) mg/dL Hemoglobin A1c (4.3-6.0) % Calcium 9.0 (8.5-10.1) mg/dL Phosphorus (2.5-4.9) mg/dL Magnesium (1.5-2.5) mg/dL Total Bilirubin 1.2 H (0.2-1.0) mg/dL AST 17 (15-37) U/L ALT 20 (12-78) U/L Alkaline Phosphatase 173 H (45-117) U/L Troponin I 0.02 (0.02-0.05) ng/mL B-Natriuretic Peptide (0-100) pg/mL Total Protein 6.4 (6.4-8.2) g/dL Albumin 2.9 L (3.4-5.0) g/dL TSH (0.358-3.740) uIU/mL Free T4 (0.76-1.46) ng/dL Nasal Screen MRSA (PCR) (Negative) Digoxin 2.1 H (0.8-2.0) ng/mL 06/27/18 06/27/18 06/27/18 Range/Units 06:45 06:45 11:15 WBC (4.0-11.0) th/mm3 RBC (4.50-5.90) mil/mm3 Hgb (13.0-17.0) gm/dL Hct (39.0-51.0) % MCV (80.0-100.0) fL MCH (27.0-34.0) pg MCHC (32.0-36.0) % RDW (11.6-17.2) % Plt Count (150-450) th/mm3 MPV (7.0-11.0) fL Neut % (Auto) (16.0-70.0) % Lymph % (Auto) (9.0-44.0) % [place] % (Auto) (0.0-8.0) % Eos % (Auto) (0.0-4.0) % Baso % (Auto) (0.0-2.0) % Neut # (Auto) (1.8-7.7) th/mm3 Lymph # (Auto) (1.0-4.8) th/mm3 [place] # (Auto) (0.0-0.9) th/mm3 Eos # (Auto) (0.0-0.4) th/mm3 Baso # (Auto) (0.0-0.2) th/mm3 WBC Differential Differential Comment Puncture Site Left radial Patient Temperature 98.6 O2 Saturation 92 (90-100) % ABG pH 7.42 (7.380-7.420) ABG pCO2 67 H* (38-42) mmHg ABG pO2 75 (61-120) mmHg ABG HCO3 43 H (22-26) mmol/L ABG O2 Content 10.1 L (12.0-20.0) Vol % ABG Base Excess 17.2 H (-2-2) mmol/L ABG Methemoglobin 0.4 (0-2) % Daryn Test Present Hemoglobin 7.8 L* (12.0-16.0) G/DL Carboxyhemoglobin 3.5 (0-4) % O2 Delivery Device Bipap Vent Setting Ipap15 epap 5 Inspired O2 40 % Critical Value Yes Sodium (136-145) meq/L Potassium (3.5-5.1) meq/L Chloride (98-107) meq/L Carbon Dioxide (21.0-32.0) meq/L Anion Gap (5-15) meq/L BUN (7-18) mg/dL Creatinine (0.60-1.30) mg/dL Estimated GFR (>89) mL/min POC Glucose (68-110) mg/dl Random Glucose (74-106) mg/dL Hemoglobin A1c (4.3-6.0) % Calcium (8.5-10.1) mg/dL Phosphorus (2.5-4.9) mg/dL Magnesium (1.5-2.5) mg/dL Total Bilirubin (0.2-1.0) mg/dL AST (15-37) U/L ALT (12-78) U/L Alkaline Phosphatase (45-117) U/L Troponin I (0.02-0.05) ng/mL B-Natriuretic Peptide 646 H (0-100) pg/mL Total Protein (6.4-8.2) g/dL Albumin (3.4-5.0) g/dL TSH (0.358-3.740) uIU/mL Free T4 (0.76-1.46) ng/dL Nasal Screen MRSA (PCR) Not detected (Negative) Digoxin (0.8-2.0) ng/mL 06/28/18 06/29/18 06/29/18 Range/Units 04:55 06:35 12:40 WBC (4.0-11.0) th/mm3 RBC (4.50-5.90) mil/mm3 Hgb (13.0-17.0) gm/dL Hct (39.0-51.0) % MCV (80.0-100.0) fL MCH (27.0-34.0) pg MCHC (32.0-36.0) % RDW (11.6-17.2) % Plt Count (150-450) th/mm3 MPV (7.0-11.0) fL Neut % (Auto) (16.0-70.0) % Lymph % (Auto) (9.0-44.0) % [place] % (Auto) (0.0-8.0) % Eos % (Auto) (0.0-4.0) % Baso % (Auto) (0.0-2.0) % Neut # (Auto) (1.8-7.7) th/mm3 Lymph # (Auto) (1.0-4.8) th/mm3 [place] # (Auto) (0.0-0.9) th/mm3 Eos # (Auto) (0.0-0.4) th/mm3 Baso # (Auto) (0.0-0.2) th/mm3 WBC Differential Differential Comment Puncture Site Patient Temperature O2 Saturation (90-100) % ABG pH (7.380-7.420) ABG pCO2 (38-42) mmHg ABG pO2 (61-120) mmHg ABG HCO3 (22-26) mmol/L ABG O2 Content (12.0-20.0) Vol % ABG Base Excess (-2-2) mmol/L ABG Methemoglobin (0-2) % Daryn Test Hemoglobin (12.0-16.0) G/DL Carboxyhemoglobin (0-4) % O2 Delivery Device Vent Setting Inspired O2 % Critical Value Sodium 138 141 (136-145) meq/L Potassium 4.6 4.9 (3.5-5.1) meq/L Chloride 90 L 93 L (98-107) meq/L Carbon Dioxide 39.5 H 38.4 H (21.0-32.0) meq/L Anion Gap 9 10 (5-15) meq/L BUN 45 H 57 H (7-18) mg/dL Creatinine 1.61 H 1.87 H (0.60-1.30) mg/dL Estimated GFR 43 L 37 L (>89) mL/min POC Glucose 267 H (68-110) mg/dl Random Glucose 137 H 166 H (74-106) mg/dL Hemoglobin A1c (4.3-6.0) % Calcium 8.7 9.0 (8.5-10.1) mg/dL Phosphorus (2.5-4.9) mg/dL Magnesium (1.5-2.5) mg/dL Total Bilirubin (0.2-1.0) mg/dL AST (15-37) U/L ALT (12-78) U/L Alkaline Phosphatase (45-117) U/L Troponin I (0.02-0.05) ng/mL B-Natriuretic Peptide (0-100) pg/mL Total Protein (6.4-8.2) g/dL Albumin (3.4-5.0) g/dL TSH (0.358-3.740) uIU/mL Free T4 (0.76-1.46) ng/dL Nasal Screen MRSA (PCR) (Negative) Digoxin (0.8-2.0) ng/mL 06/29/18 06/29/18 06/29/18 Range/Units 12:43 18:02 22:15 WBC (4.0-11.0) th/mm3 RBC (4.50-5.90) mil/mm3 Hgb (13.0-17.0) gm/dL Hct (39.0-51.0) % MCV (80.0-100.0) fL MCH (27.0-34.0) pg MCHC (32.0-36.0) % RDW (11.6-17.2) % Plt Count (150-450) th/mm3 MPV (7.0-11.0) fL Neut % (Auto) (16.0-70.0) % Lymph % (Auto) (9.0-44.0) % [place] % (Auto) (0.0-8.0) % Eos % (Auto) (0.0-4.0) % Baso % (Auto) (0.0-2.0) % Neut # (Auto) (1.8-7.7) th/mm3 Lymph # (Auto) (1.0-4.8) th/mm3 [place] # (Auto) (0.0-0.9) th/mm3 Eos # (Auto) (0.0-0.4) th/mm3 Baso # (Auto) (0.0-0.2) th/mm3 WBC Differential Differential Comment Puncture Site Patient Temperature O2 Saturation (90-100) % ABG pH (7.380-7.420) ABG pCO2 (38-42) mmHg ABG pO2 (61-120) mmHg ABG HCO3 (22-26) mmol/L ABG O2 Content (12.0-20.0) Vol % ABG Base Excess (-2-2) mmol/L ABG Methemoglobin (0-2) % Daryn Test Hemoglobin (12.0-16.0) G/DL Carboxyhemoglobin (0-4) % O2 Delivery Device Vent Setting Inspired O2 % Critical Value Sodium (136-145) meq/L Potassium (3.5-5.1) meq/L Chloride (98-107) meq/L Carbon Dioxide (21.0-32.0) meq/L Anion Gap (5-15) meq/L BUN (7-18) mg/dL Creatinine (0.60-1.30) mg/dL Estimated GFR (>89) mL/min POC Glucose 275 H 233 H 242 H (68-110) mg/dl Random Glucose (74-106) mg/dL Hemoglobin A1c (4.3-6.0) % Calcium (8.5-10.1) mg/dL Phosphorus (2.5-4.9) mg/dL Magnesium (1.5-2.5) mg/dL Total Bilirubin (0.2-1.0) mg/dL AST (15-37) U/L ALT (12-78) U/L Alkaline Phosphatase (45-117) U/L Troponin I (0.02-0.05) ng/mL B-Natriuretic Peptide (0-100) pg/mL Total Protein (6.4-8.2) g/dL Albumin (3.4-5.0) g/dL TSH (0.358-3.740) uIU/mL Free T4 (0.76-1.46) ng/dL Nasal Screen MRSA (PCR) (Negative) Digoxin (0.8-2.0) ng/mL 06/30/18 06/30/18 06/30/18 Range/Units 02:52 07:33 07:56 WBC 5.3 (4.0-11.0) th/mm3 RBC 2.82 L (4.50-5.90) mil/mm3 Hgb 7.8 L (13.0-17.0) gm/dL Hct 25.7 L (39.0-51.0) % MCV 91.0 (80.0-100.0) fL MCH 27.7 (27.0-34.0) pg MCHC 30.5 L (32.0-36.0) % RDW 23.5 H (11.6-17.2) % Plt Count 243 (150-450) th/mm3 MPV 7.8 (7.0-11.0) fL Neut % (Auto) 91.2 H (16.0-70.0) % Lymph % (Auto) 3.9 L (9.0-44.0) % [place] % (Auto) 4.8 (0.0-8.0) % Eos % (Auto) 0.0 (0.0-4.0) % Baso % (Auto) 0.1 (0.0-2.0) % Neut # (Auto) 4.8 (1.8-7.7) th/mm3 Lymph # (Auto) 0.2 L (1.0-4.8) th/mm3 [place] # (Auto) 0.3 (0.0-0.9) th/mm3 Eos # (Auto) 0.0 (0.0-0.4) th/mm3 Baso # (Auto) 0.0 (0.0-0.2) th/mm3 WBC Differential . Differential Comment Auto diff final Puncture Site Patient Temperature O2 Saturation (90-100) % ABG pH (7.380-7.420) ABG pCO2 (38-42) mmHg ABG pO2 (61-120) mmHg ABG HCO3 (22-26) mmol/L ABG O2 Content (12.0-20.0) Vol % ABG Base Excess (-2-2) mmol/L ABG Methemoglobin (0-2) % Daryn Test Hemoglobin (12.0-16.0) G/DL Carboxyhemoglobin (0-4) % O2 Delivery Device Vent Setting Inspired O2 % Critical Value Sodium (136-145) meq/L Potassium (3.5-5.1) meq/L Chloride (98-107) meq/L Carbon Dioxide (21.0-32.0) meq/L Anion Gap (5-15) meq/L BUN (7-18) mg/dL Creatinine (0.60-1.30) mg/dL Estimated GFR (>89) mL/min POC Glucose 254 H 174 H (68-110) mg/dl Random Glucose (74-106) mg/dL Hemoglobin A1c (4.3-6.0) % Calcium (8.5-10.1) mg/dL Phosphorus (2.5-4.9) mg/dL Magnesium (1.5-2.5) mg/dL Total Bilirubin (0.2-1.0) mg/dL AST (15-37) U/L ALT (12-78) U/L Alkaline Phosphatase (45-117) U/L Troponin I (0.02-0.05) ng/mL B-Natriuretic Peptide (0-100) pg/mL Total Protein (6.4-8.2) g/dL Albumin (3.4-5.0) g/dL TSH (0.358-3.740) uIU/mL Free T4 (0.76-1.46) ng/dL Nasal Screen MRSA (PCR) (Negative) Digoxin (0.8-2.0) ng/mL 06/30/18 06/30/18 06/30/18 Range/Units 07:56 07:56 11:21 WBC (4.0-11.0) th/mm3 RBC (4.50-5.90) mil/mm3 Hgb (13.0-17.0) gm/dL Hct (39.0-51.0) % MCV (80.0-100.0) fL MCH (27.0-34.0) pg MCHC (32.0-36.0) % RDW (11.6-17.2) % Plt Count (150-450) th/mm3 MPV (7.0-11.0) fL Neut % (Auto) (16.0-70.0) % Lymph % (Auto) (9.0-44.0) % [place] % (Auto) (0.0-8.0) % Eos % (Auto) (0.0-4.0) % Baso % (Auto) (0.0-2.0) % Neut # (Auto) (1.8-7.7) th/mm3 Lymph # (Auto) (1.0-4.8) th/mm3 [place] # (Auto) (0.0-0.9) th/mm3 Eos # (Auto) (0.0-0.4) th/mm3 Baso # (Auto) (0.0-0.2) th/mm3 WBC Differential Differential Comment Puncture Site Patient Temperature O2 Saturation (90-100) % ABG pH (7.380-7.420) ABG pCO2 (38-42) mmHg ABG pO2 (61-120) mmHg ABG HCO3 (22-26) mmol/L ABG O2 Content (12.0-20.0) Vol % ABG Base Excess (-2-2) mmol/L ABG Methemoglobin (0-2) % Daryn Test Hemoglobin (12.0-16.0) G/DL Carboxyhemoglobin (0-4) % O2 Delivery Device Vent Setting Inspired O2 % Critical Value Sodium 140 (136-145) meq/L Potassium 4.9 (3.5-5.1) meq/L Chloride 93 L (98-107) meq/L Carbon Dioxide 39.7 H (21.0-32.0) meq/L Anion Gap 7 (5-15) meq/L BUN 70 H (7-18) mg/dL Creatinine 1.75 H (0.60-1.30) mg/dL Estimated GFR 39 L (>89) mL/min POC Glucose 216 H (68-110) mg/dl Random Glucose 156 H (74-106) mg/dL Hemoglobin A1c 5.0 (4.3-6.0) % Calcium 8.6 (8.5-10.1) mg/dL Phosphorus 5.2 H (2.5-4.9) mg/dL Magnesium 2.5 (1.5-2.5) mg/dL Total Bilirubin 0.6 (0.2-1.0) mg/dL AST 18 (15-37) U/L ALT 26 (12-78) U/L Alkaline Phosphatase 157 H (45-117) U/L Troponin I (0.02-0.05) ng/mL B-Natriuretic Peptide (0-100) pg/mL Total Protein 6.4 (6.4-8.2) g/dL Albumin 3.1 L (3.4-5.0) g/dL TSH 1.060 (0.358-3.740) uIU/mL Free T4 0.85 (0.76-1.46) ng/dL Nasal Screen MRSA (PCR) (Negative) Digoxin (0.8-2.0) ng/mL 06/30/18 Range/Units 16:05 WBC (4.0-11.0) th/mm3 RBC (4.50-5.90) mil/mm3 Hgb (13.0-17.0) gm/dL Hct (39.0-51.0) % MCV (80.0-100.0) fL MCH (27.0-34.0) pg MCHC (32.0-36.0) % RDW (11.6-17.2) % Plt Count (150-450) th/mm3 MPV (7.0-11.0) fL Neut % (Auto) (16.0-70.0) % Lymph % (Auto) (9.0-44.0) % [place] % (Auto) (0.0-8.0) % Eos % (Auto) (0.0-4.0) % Baso % (Auto) (0.0-2.0) % Neut # (Auto) (1.8-7.7) th/mm3 Lymph # (Auto) (1.0-4.8) th/mm3 [place] # (Auto) (0.0-0.9) th/mm3 Eos # (Auto) (0.0-0.4) th/mm3 Baso # (Auto) (0.0-0.2) th/mm3 WBC Differential Differential Comment Puncture Site Patient Temperature O2 Saturation (90-100) % ABG pH (7.380-7.420) ABG pCO2 (38-42) mmHg ABG pO2 (61-120) mmHg ABG HCO3 (22-26) mmol/L ABG O2 Content (12.0-20.0) Vol % ABG Base Excess (-2-2) mmol/L ABG Methemoglobin (0-2) % Daryn Test Hemoglobin (12.0-16.0) G/DL Carboxyhemoglobin (0-4) % O2 Delivery Device Vent Setting Inspired O2 % Critical Value Sodium (136-145) meq/L Potassium (3.5-5.1) meq/L Chloride (98-107) meq/L Carbon Dioxide (21.0-32.0) meq/L Anion Gap (5-15) meq/L BUN (7-18) mg/dL Creatinine (0.60-1.30) mg/dL Estimated GFR (>89) mL/min POC Glucose 247 H (68-110) mg/dl Random Glucose (74-106) mg/dL Hemoglobin A1c (4.3-6.0) % Calcium (8.5-10.1) mg/dL Phosphorus (2.5-4.9) mg/dL Magnesium (1.5-2.5) mg/dL Total Bilirubin (0.2-1.0) mg/dL AST (15-37) U/L ALT (12-78) U/L Alkaline Phosphatase (45-117) U/L Troponin I (0.02-0.05) ng/mL B-Natriuretic Peptide (0-100) pg/mL Total Protein (6.4-8.2) g/dL Albumin (3.4-5.0) g/dL TSH (0.358-3.740) uIU/mL Free T4 (0.76-1.46) ng/dL Nasal Screen MRSA (PCR) (Negative) Digoxin (0.8-2.0) ng/mL Imaging Data Radiologist's impression: Chest X-Ray 06/27/18 06:30 CONCLUSION: Slightly improved lung exam. Findings are compatible with congestive heart failure and pulmonary edema versus volume overload from patient's renal disease. Discharge Plan Discharge Disposition Patient Disposition: 30 Still Patient Discharge Condition Condition: Good Discharge Order Discharge Orders: Discharge Order (Routine); Ordered 06/30/18 Ordered By: Ebenezer Liz Discharge Details Anticipated Discharge Date: 06/30/18 Diagnosis: CHF exacerbation, DENIS (obstructive sleep apnea), Acute kidney injury superimposed on chronic kidney disease Physicians Team ED Provider: Chao Mckeon Primary Care Provider: Primary Care [facility]ici,No Attending Provider: Ebenezer Liz Other Providers: Jake Joseph ; Di Carmona ; Dereck Clark ; Nicolás Bashir [facility] ED Status: Left Department Discharge Information Discharge Date/Time: 06/27/18 11:23
[2018-06-27 07:35] LABS: Alanine Aminotransferase 20 U/L (12-78); Albumin 2.9 g/dL (3.4-5.0); Anion Gap 4 meq/L (5-15); Aspartate Aminotransferase 17 U/L (15-37); Blood Urea Nitrogen 38 mg/dL (7-18); Carbon Dioxide 43.2 meq/L (21.0-32.0); Chloride 92 meq/L (98-107); Glomerular Filtration Rate 45 mL/min (>89); Glucose,Random 102 mg/dL (74-106); Potassium 4.4 meq/L (3.5-5.1); Sodium 139 meq/L (136-145)
[2018-06-27 07:39] LABS: Alkaline Phosphatase 173 U/L (45-117); Total Protein 6.4 g/dL (6.4-8.2); Troponin I 0.02 ng/mL (0.02-0.05)
--- NOTE | 2018-06-27 09:24 | P.HP ---
History of Present Illness Primary Care Physician: No Primary Care Physician History of Present Illness: 62-year-old white male being admitted for shortness of breath. History is limited as the patient is very fatigued, obtained otherwise from emergency room physician and [facility] facility staff. Patient was in his usual state of health until sometime in the last 12 hours when he was found lying down flat not wearing his oxygen with labored breathing. "Patient was lying flat in bed without oxygen sats @ 55%." He had a DuoNeb with climbing sats to 63-67 and he was on 4 L a minute being ventilated. Atrovent was administered about 520 am" with O2 sats fluctuating between 73 and 83. On-call PA instructed him to be sent to the hospital. Nursing supervisor [facility] [employer] [facility] [employer] facility tells me that there were no reports of him having any chest pain. They state that he is supposed to be wearing 2 L minimum all the time, does not have any BiPAP or CPAP mask to wear at night. In the emergency department patient was placed on BiPAP. His ABG demonstrated elevated CO2 around 67 with a normal PO2. Chest x-ray which was obtained showed mild pulmonary edema per my independent review. Noted to have chronic anemia w/ hb at 8. Patient was given IV Lasix and Solu-Medrol as well as DuoNeb treatments. He has had multiple admissions over the last 30 days, most notably he had one where he was discharged about 12 days ago for similar reason (CHF and COPD exacerbation). Was discharged to [facility] for SNF purposes. They are confident he cannot live on his own at this point. Patient has a charted history of COPD but he has a pulmonary function test from 2016 which demonstrates significant response to bronchodilators to an otherwise pattern of moderate to severe obstructive airway disease -this convincing me he has rather asthma as opposed to COPD -especially since he denies a smoking history. Inpatient Certification: I certify that the inpatient services were ordered in accordance with Medicare regulations governing the order. This includes certification that hospital inpatient services are reasonable and necessary and in the case of services not specified as inpatient-only under 42 CFR 419.22(n), that they are appropriately provided as inpatient services in accordance to with the 2-midnight benchmark under 43 CFR 412.3(e) Estimated Total Length of Stay (Days): 2 Plans for Post Hospital Care: Not yet determined Review of Systems All other systems reviewed negative except as stated in HPI PMFSH - History History Provided By: Patient - Medical History Medical History: Medical History (Last Reviewed 06/27/18 @ 09:36 by Holden Jama MD) Hyperlipidemia (Acute) Hypertension (Acute) DENIS (obstructive sleep apnea) (Acute) COPD (chronic obstructive pulmonary disease) (Acute) Anemia Atrial fibrillation BPH (benign prostatic hyperplasia) CHF (congestive heart failure) Diabetes mellitus GERD (gastroesophageal reflux disease) Generalized edema Generalized weakness History of alcohol abuse Insomnia Morbid obesity - Surgical History Surgical History: Surgical History (Last Reviewed 06/27/18 @ 09:36 by Holden Jama MD) History of surgery on arm (Acute) Hx of tonsillectomy (Acute) H/O cardiac radiofrequency ablation (Acute) History of appendectomy (Acute) - Family History Family History: Family History (Last Reviewed 06/27/18 @ 09:36 by Holden Jama MD) Father Diabetes mellitus Hypertension Mother Diabetes mellitus - Social History I have reviewed the patient's Social History: Yes - Tobacco History Second Hand Smoke Exposure: Yes Smoking Status: Never smoker - Alcohol History How Often Do You Have a Drink Containing Alcohol: 4 or more times a week - Substance Use History Substance History: No History of Abuse - Travel History Recent Travel in the [place] Within the Last 8 Weeks: No Recent Travel Out of the Country Within the Last 8 Weeks: No - Immunization History Tetanus Immunization: Unsure Medications and Allergies Active Medications: Active Medications Sodium Chloride (Ns Flush) 2 ml IV.FLUSH PRN PRN PRN Reason: FLUSH AFTER USING IV ACCESS Sodium Chloride (Ns Flush) 2 ml IV.FLUSH BID [facility] Allergies Allergy/AdvReac Type Severity Reaction Status Date / Time No Known Allergies Allergy Verified 06/17/18 17:22 Home Medications Medication Instructions Recorded Confirmed Type albuterol sulfate [Ventolin HFA] 1 puff INHALATION Q4HR PRN 05/22/18 06/27/18 History atorvastatin 40 mg PO HS 05/22/18 06/27/18 History budesonide-formoterol [Symbicort] 2 puff INHALATION BID 05/22/18 06/27/18 History calcium acetate 667 mg PO TID 05/22/18 06/27/18 History digoxin 0.25 mg PO DAILY 05/22/18 06/27/18 History diltiazem HCl [Cardizem LA] 240 mg PO DAILY 05/22/18 06/27/18 History ipratropium bromide [Atrovent HFA] 1 puff INHALATION Q6HR PRN 05/22/18 06/27/18 History metoprolol tartrate 100 mg PO BID 05/22/18 06/27/18 History omeprazole 20 mg PO DAILY 05/22/18 06/27/18 History potassium chloride [Klor-Con] 1 packet PO DAILY 05/22/18 06/27/18 History rivaroxaban 10 mg PO DAILY 05/22/18 06/27/18 History acetaminophen [Tylenol] 650 mg PO Q4H PRN 06/01/18 06/27/18 History insulin aspart U-100 [Novolog 2 - 12 unit SUB-Q ACHS 06/01/18 06/27/18 History Flexpen U-100 Insulin] bisacodyl [Dulcolax (bisacodyl)] 10 mg MT DAILY PRN 06/17/18 06/27/18 History ferrous sulfate 325 mg PO BID 06/17/18 06/27/18 History furosemide 40 mg IV DAILY 06/17/18 06/27/18 History furosemide [Lasix] 40 mg PO DAILY 06/17/18 06/27/18 History magnesium citrate [Citroma] 30 ml PO DAILY PRN 06/17/18 06/27/18 History magnesium hydroxide [Milk of 30 ml PO DAILY PRN 06/17/18 06/27/18 History Magnesia] melatonin 6 mg PO HS PRN 06/17/18 06/27/18 History methylprednisolone sod suc(PF) 125 mg IM QAM 06/17/18 06/27/18 History [Solu-Medrol (PF)] multivitamin with minerals 1 tab PO DAILY 06/17/18 06/27/18 History torsemide 20 mg PO BID 06/17/18 06/27/18 History escitalopram oxalate 10 mg PO DAILY 06/27/18 06/27/18 History Exam Vital signs: Vital Signs 06/27/18 06:14 06/27/18 06:22 06/27/18 06:25 Temperature 97.8 F Pulse Rate 77 80 Respiratory Rate 20 24 Blood Pressure 104/67 Pulse Oximetry 96 99 06/27/18 07:27 06/27/18 08:21 Temperature Pulse Rate 73 Respiratory Rate 21 Blood Pressure 116/57 L Pulse Oximetry 95 99 Intake & Output 06/26/18 06/27/18 06/27/18 18:59 06:59 18:59 Weight 147.418 kg Narrative: VS: afebrile GENERAL: Appears somnolent, fatigued, on BiPAP mask, but awoken when prompted SKIN: Warm and dry. EYES: No scleral icterus. No injection or drainage. ENT: On BiPAP mask, normal cephalic. CARDIOVASCULAR: Regular rate and rhythm. no murmurs RESPIRATORY: No accessory muscle use. No focal rales rhonchi or crackles heard as the patient is on BiPAP GASTROINTESTINAL: Abdomen nondistended Extremities: No clubbing, cyanosis. Large bilateral lower extremities with some edema MUSCULOSKELETAL: adequate muscle bulk and tone for age and habitus NEUROLOGICAL: Awake and alert. No obvious cranial nerve deficits. No facial droop nor slurred speech noted. PSYCHIATRIC: Appropriate mood and affect; insight and judgment normal. Results - Labs CBC & Chem 7: 06/27/18 06:45 06/27/18 06:45 Labs: Laboratory Results - last 24 hr 06/27/18 06/27/18 06/27/18 06:45 06:45 06:45 WBC 4.7 RBC 2.85 L Hgb 8.0 L Hct 25.4 L MCV 89.1 MCH 28.0 MCHC 31.5 L RDW 22.6 H Plt Count 269 D MPV 7.3 Neut % (Auto) 72.3 H Lymph % (Auto) 13.3 [place] % (Auto) 10.3 H Eos % (Auto) 2.9 Baso % (Auto) 1.2 Neut # (Auto) 3.4 Lymph # (Auto) 0.6 L [place] # (Auto) 0.5 Eos # (Auto) 0.1 Baso # (Auto) 0.1 WBC Differential . Differential Comment Auto diff final Puncture Site Patient Temperature O2 Saturation ABG pH ABG pCO2 ABG pO2 ABG HCO3 ABG O2 Content ABG Base Excess ABG Methemoglobin Daryn Test Hemoglobin Carboxyhemoglobin O2 Delivery Device Vent Setting Inspired O2 Critical Value Sodium 139 Potassium 4.4 Chloride 92 L Carbon Dioxide 43.2 H Anion Gap 4 L BUN 38 H Creatinine 1.55 H Estimated GFR 45 L Random Glucose 102 Calcium 9.0 Total Bilirubin 1.2 H AST 17 ALT 20 Alkaline Phosphatase 173 H Troponin I 0.02 B-Natriuretic Peptide Total Protein 6.4 Albumin 2.9 L Digoxin 2.1 H 06/27/18 06/27/18 06:45 06:45 WBC RBC Hgb Hct MCV MCH MCHC RDW Plt Count MPV Neut % (Auto) Lymph % (Auto) [place] % (Auto) Eos % (Auto) Baso % (Auto) Neut # (Auto) Lymph # (Auto) [place] # (Auto) Eos # (Auto) Baso # (Auto) WBC Differential Differential Comment Puncture Site Left radial Patient Temperature 98.6 O2 Saturation 92 ABG pH 7.42 ABG pCO2 67 H* ABG pO2 75 ABG HCO3 43 H ABG O2 Content 10.1 L ABG Base Excess 17.2 H ABG Methemoglobin 0.4 Daryn Test Present Hemoglobin 7.8 L* Carboxyhemoglobin 3.5 O2 Delivery Device Bipap Vent Setting Ipap15 epap 5 Inspired O2 40 Critical Value Yes Sodium Potassium Chloride Carbon Dioxide Anion Gap BUN Creatinine Estimated GFR Random Glucose Calcium Total Bilirubin AST ALT Alkaline Phosphatase Troponin I B-Natriuretic Peptide 646 H Total Protein Albumin Digoxin - Imaging Impressions Chest X-Ray 06/27/18 06:30 CONCLUSION: Slightly improved lung exam. Findings are compatible with congestive heart failure and pulmonary edema versus volume overload from patient's renal disease. Caprini VTE Risk Assessment Caprini VTE Risk Assessment: Moderate/High Risk (score >= 2) Caprini Risk Assessment Model: Point Value = 1 Point Value = 2 Point Value = 3 Point Value = 5 Age 41-60 Minor surgery BMI > 25 kg/m2 Swollen legs Varicose veins or History of unexplained or recurrent spontaneous Oral contraceptives or hormone replacement Sepsis (< 1 month) Serious lung disease, including pneumonia (< 1 month) Abnormal pulmonary function Acute myocardial infarction Congestive heart failure (< 1 month) History of inflammatory bowel disease Medical patient at bed rest Age 61-74 Arthroscopic surgery Major open surgery (> 45 min) Laparoscopic surgery (> 45 min) Malignancy Confined to bed (> 72 hours) Immobilizing plaster cast Central venous access Age >= 75 History of VTE Family history of VTE Factor V Leiden Prothrombin [id number] Lupus anticoagulant Anticardiolipin antibodies Elevated serum homocysteine Heparin-induced thrombocytopenia Other congenital or acquired thrombophilia Stroke (< 1 month) Elective arthroplasty Hip, pelvis, or leg fracture Acute spinal cord injury (< 1 month) Prophylaxis Regimen: Total Risk Factor Score Risk Level Prophylaxis Regimen 0-1 Low Early ambulation 2 Moderate Order ONE of the following: *Sequential Compression Device (SCD) *Heparin 5000 units SQ BID 3-4 Higher Order ONE of the following medications: *Heparin 5000 units SQ TID *Enoxaparin/Lovenox 40 mg SQ daily (WT < 150 kg, CrCl > 30 mL/min) *Enoxaparin/Lovenox 30 mg SQ daily (WT < 150 kg, CrCl > 10-29 mL/min) *Enoxaparin/Lovenox 30 mg SQ BID (WT < 150 kg, CrCl > 30 mL/min) AND/OR *Sequential Compression Device (SCD) 5 or more Highest Order ONE of the following medications: *Heparin 5000 units SQ TID (Preferred with Epidurals) *Enoxaparin/Lovenox 40 mg SQ daily (WT < 150 kg, CrCl > 30 mL/min) *Enoxaparin/Lovenox 30 mg SQ daily (WT < 150 kg, CrCl > 10-29 mL/min) *Enoxaparin/Lovenox 30 mg SQ BID (WT < 150 kg, CrCl > 30 mL/min) AND *Sequential Compression Device (SCD) Assessment and Plan - Plan 62-year-old white male being admitted for shortness of breath with acute hypercarbic respiratory failure Shortness of breath Acute hypercarbic and hypoxic respiratory failure -likely multifactorial with acute airway compromise initially due to mechanical obstruction due to suspected undiagnosed severe sleep apnea w/ failure to wear home oxygen as well as possible asthma exacerbation -unlikely CHF as bnp is mildly elevated at 646 , continue home diureses of bumex -Continue BiPAP, plan is to wean down to home 2 L requirement Continue steroids and diuresis and duonebs - raise head of bed Atrial fibrillation s/p ablation, Continue metoprolol, -hold digoxin due to slightly supra-therapeutic levels. may no longer need digoxin given hx of ablation, monitor HR while in-house and decide at end to dc digoxin indefinitely. - continue, Cardizem - lovenox while inpt; xarelto on hold for any possible procedures CKD - likely 2/2 CHF w/ preserved EF Anemia - likely chronic disease/and or iron def - continue oral iron Due to multiple admissions for the same region we will consult palliative care to elucidate goals of care for the patient.
[2018-06-27] MEDS: dilTIAZem CD 240 MG Capsule PO SCH (10:49)
[2018-06-27] MEDS: Metoprolol Tartrate 100 MG Tablet PO SCH ×2 (10:49→20:24)
[2018-06-27] MEDS ORDERED: RESP: Albuterol Concentrated 2.5 MG/0.5 ML Neb NEB PRN (11:00)
--- NOTE | 2018-06-27 14:08 | ECG ---
Date Performed: 06/27/2018 Time Performed: 06:19:13 PTAGE: 62 years EKG: Sinus rhythm RIGHT BUNDLE BRANCH BLOCK ABNORMAL ECG Compared to PREVIOUS TRACING , no significant change. PREVIOUS TRACIN06/17/2018 18.41 DOCTOR: Joe Walker Interpretating Date/Time 06/27/2018 14:06:42
[2018-06-27] MEDS: Ferrous Sulfate 325 MG Tablet PO SCH (20:24)
[2018-06-27] MEDS: Enoxaparin Inj 100 MG/ML Syringe SQ SCH (20:25)
[2018-06-27] MEDS: MethylPREDNISolone Sod Succinate Inj 125 MG/2 ML Vial IV.PUSH SCH (20:25)
[2018-06-27] MEDS ORDERED: Melatonin 5 MG Tablet PO PRN (21:00)
[2018-06-27] MEDS: Morphine Sulfate Inj 2 MG/ML Vial IV.PUSH PRN (21:18)
[2018-06-27] MEDS: Nystatin 100,000 UNITS/GM Powder 15 GM Bottle TOPICAL SCH (21:23)
[2018-06-27] MEDS: Budesonide-Formoterol 160/4.5 MCG 6 GM Inhaler INH SCH (21:23)
[2018-06-28 07:40] LABS: Calcium 8.7 mg/dL (8.5-10.1); Carbon Dioxide 39.5 meq/L (21.0-32.0); Potassium 4.6 meq/L (3.5-5.1)
[2018-06-28] MEDS: Enoxaparin Inj 100 MG/ML Syringe SQ SCH ×2 (08:56→20:34)
[2018-06-28] MEDS: dilTIAZem CD 240 MG Capsule PO SCH (08:58)
[2018-06-28] MEDS: Ferrous Sulfate 325 MG Tablet PO SCH ×2 (08:59→20:36)
[2018-06-28] MEDS: Escitalopram 10 MG Tablet PO SCH (09:00)
[2018-06-28] MEDS: Metoprolol Tartrate 100 MG Tablet PO SCH ×2 (09:00→20:36)
[2018-06-28] MEDS: Nystatin 100,000 UNITS/GM Powder 15 GM Bottle TOPICAL SCH ×3 (09:02→20:36)
[2018-06-28] MEDS: Budesonide-Formoterol 160/4.5 MCG 6 GM Inhaler INH SCH ×2 (09:02→20:36)
[2018-06-28] MEDS: MethylPREDNISolone Sod Succinate Inj 125 MG/2 ML Vial IV.PUSH SCH ×2 (09:54→20:35)
--- NOTE | 2018-06-28 10:12 | P.CONPAL ---
Consult Service: Palliative Care Requesting Physician: Holden Jama Reason for Consult: a. To assist with evaluation and management of symptoms including: dyspnea, debility b. To assist medical decision maker(s) with: better understanding of current medical conditions; weighing benefits/burdens of medical treatment options; making medical treatment decisions. Primary Care Provider: No Primary Care Physician History of Present Illness History of Present Illness: Mr. Nix is a 62yo gentleman with a past medical history of A. fib, diastolic CHF, COPD, obstructive sleep apnea, hypertension, chronic kidney disease, and diabetes. He has had multiple admissions in the past 30 days for complaints of shortness of breath. 1 of these visits back in December 2017 required intubation. The patient is currently living in a rehab facility was found to be in respiratory distress with oxygen saturations of 50%. He normally requires 4 L of oxygen via nasal cannula continuously, and it is unsure if he has been compliant with this therapy. He was transported to [facility] emergency room for further evaluation and treatment. Initial emergency room evaluation revealed: * Temp 97.8, pulse 77, respiratory rate 20, BP 104/67, pulse ox 96% on 4 L nasal cannula * WBC 4.7, RBC 2.85, Hgb 8.0, Hct 25.4, RDW 22.6, platelets 269 * N/A 139, K+ 4.4, CL 92, carbon dioxide 43.2, BUN 38, creatinine 1.55, estimated GFR 45 glucose 102 * Total bili 1.2, AST 17, ALT 20, alkaline phosphatase 173, troponin 0 0.02, albumin 2.9, digoxin 2.1, BNP 646 * ABG: PH 7.42, PCO2 67, PO2 75, HCO3 43, base excess 17.2, settings on BiPAP 15 /5 40% FiO2 * EKG shows sinus rhythm with a right bundle branch block * CXR slightly improved lung exam findings are compatible with congestive heart failure and pulmonary edema versus volume overload from patient's renal disease The patient is currently being diuresed and kept on BiPAP with the hopes of being able to wean him down to his home O2 usage. Digoxin was held due to elevated levels patient currently on Cardizem for rate control. He is being anticoagulated with Lovenox Xarelto is being held in case of any needed procedures. Palliative care was consulted to help assist with goals of medical care and to assist with symptom management. Examination at bedside reveals a pleasant gentleman who appears to have increased work of breathing. When asked if he feels short of breath he states it is not more that he usually feels though admits to feeling more tired than his baseline. His legs are moderately edematous with weak pulses. He complains of generalized discomfort though no overt complains of pain. He relays his frustration with his current medical trajectory as well as his unhappiness with his current living situation. He is hopeful that he will be able to move to [place] to be closer to family. Function/Cognitive Trajectory: The patient did have a condo that he shared with a roommate though he admits he had a hard time getting around. He could walk holding on to something and would usually rely on a cane. His roommate would usually do the shopping, cooking, and cleaning. Over the past few months his breathing and mobility declined to such that he was sent to SNF for rehab. He is been frequently in and out of the hospitals for exacerbations of his COPD and CHF. He is no longer able to live on his own. Review of Systems Constitutional: Reports fatigue, Reports lack of energy Cardiovascular: Reports leg swelling, Reports shortness of breath, Reports shortness of breath with activity, Reports shortness of breath when lying down Respiratory: Reports shortness of breath, Reports shortness of breath with activity PMFSH - History History Provided By: Patient - Medical History Medical History: Medical History (Last Reviewed 06/28/18 @ 16:08 by Radu Larios) Hyperlipidemia (Acute) Hypertension (Acute) DENIS (obstructive sleep apnea) (Acute) COPD (chronic obstructive pulmonary disease) (Acute) Anemia Atrial fibrillation BPH (benign prostatic hyperplasia) CHF (congestive heart failure) Diabetes mellitus GERD (gastroesophageal reflux disease) Generalized edema Generalized weakness History of alcohol abuse Insomnia Morbid obesity - Surgical History Surgical History: Surgical History (Last Reviewed 06/28/18 @ 16:08 by Radu Larios) History of surgery on arm (Acute) Hx of tonsillectomy (Acute) H/O cardiac radiofrequency ablation (Acute) History of appendectomy (Acute) - Family History Family History: Family History (Last Reviewed 06/27/18 @ 09:36 by Holden Jama MD) Father Diabetes mellitus Hypertension Mother Diabetes mellitus - Tobacco History Second Hand Smoke Exposure: Yes Smoking Status: Never smoker - Alcohol History How Often Do You Have a Drink Containing Alcohol: 4 or more times a week - Substance Use History Substance History: No History of Abuse - Travel History History of Recent Travel: No Recent Travel in the [place] Within the Last 8 Weeks: No Recent Travel Out of the Country Within the Last 8 Weeks: No - Immunization History Tetanus Immunization: Unsure Medications and Allergies Active Medications: Active Medications Albuterol (Albuterol Concentrated Neb) 2.5 mg NEB Q2HR NEB PRN PRN Reason: WHEEZING Albuterol (Duoneb Neb (Delilah)) 1 ampul NEB Q6HR WHILE AWAKE NEB [facility] Last Admin: 06/28/18 08:26 Dose: 1 ampul Albuterol (Duoneb Neb (Prn)) 1 ampul NEB Q2HR NEB PRN PRN Reason: sob Last Admin: 06/28/18 04:12 Dose: 1 ampul Aspirin (Ecotrin) 81 mg PO DAILY [facility] Last Admin: 06/28/18 09:00 Dose: 81 mg Atorvastatin Calcium (Lipitor) 40 mg PO HS [facility] Last Admin: 06/27/18 20:24 Dose: 40 mg Budesonide/Formoterol Fumarate (Symbicort 160/4.5 Mcg Inh) 2 puff INH BID [facility] Last Admin: 06/28/18 09:02 Dose: 2 puff Bumetanide (Bumex) 1 mg PO BID [facility] Last Admin: 06/28/18 08:58 Dose: 1 mg Diltiazem HCl (Cardizem Cd 24hr) 240 mg PO DAILY [facility] Last Admin: 06/28/18 08:58 Dose: 240 mg Enoxaparin Sodium (Lovenox Inj) 100 mg SQ Q12HR [facility] Last Admin: 06/28/18 08:56 Dose: 100 mg Escitalopram Oxalate (Lexapro) 10 mg PO DAILY [facility] Last Admin: 06/28/18 09:00 Dose: 10 mg Ferrous Sulfate (Ferosul) 325 mg PO BID [facility] Last Admin: 06/28/18 08:59 Dose: 325 mg Melatonin (Melatonin) 5 mg PO HS PRN PRN Reason: Insomnia Methylprednisolone Sodium Succinate (Solumedrol Inj) 60 mg IV.PUSH Q12HR [facility] Last Admin: 06/28/18 09:54 Dose: 60 mg Metoprolol Tartrate (Lopressor) 100 mg PO BID [facility] Last Admin: 06/28/18 09:00 Dose: 100 mg Morphine Sulfate (Morphine Inj) 2 mg IV.PUSH Q4H PRN PRN Reason: pain 1 to 10 Last Admin: 06/27/18 21:18 Dose: 2 mg Nystatin (Mycostatin Powder) 1 applicatio TOPICAL QID [facility] Last Admin: 06/28/18 09:02 Dose: 1 applicatio Potassium Chloride (K-Dur) 20 meq PO DAILY [facility] Last Admin: 06/28/18 08:56 Dose: 20 meq Sodium Chloride (Ns Flush) 2 ml IV.FLUSH PRN PRN PRN Reason: FLUSH AFTER USING IV ACCESS Sodium Chloride (Ns Flush) 2 ml IV.FLUSH BID [facility] Last Admin: 06/28/18 09:02 Dose: 2 ml Tamsulosin HCl (Flomax) 0.4 mg PO DAILY [facility] Last Admin: 06/28/18 08:59 Dose: 0.4 mg Allergies Allergy/AdvReac Type Severity Reaction Status Date / Time No Known Allergies Allergy Verified 06/17/18 17:22 Home Medications Medication Instructions Recorded Confirmed Type albuterol sulfate [Ventolin HFA] 1 puff INHALATION Q4HR PRN 05/22/18 06/27/18 History atorvastatin 40 mg PO HS 05/22/18 06/27/18 History budesonide-formoterol [Symbicort] 2 puff INHALATION BID 05/22/18 06/27/18 History calcium acetate 667 mg PO TID 05/22/18 06/27/18 History digoxin 0.25 mg PO DAILY 05/22/18 06/27/18 History diltiazem HCl [Cardizem LA] 240 mg PO DAILY 05/22/18 06/27/18 History ipratropium bromide [Atrovent HFA] 1 puff INHALATION Q6HR PRN 05/22/18 06/27/18 History metoprolol tartrate 100 mg PO BID 05/22/18 06/27/18 History omeprazole 20 mg PO DAILY 05/22/18 06/27/18 History potassium chloride [Klor-Con] 1 packet PO DAILY 05/22/18 06/27/18 History rivaroxaban 10 mg PO DAILY 05/22/18 06/27/18 History acetaminophen [Tylenol] 650 mg PO Q4H PRN 06/01/18 06/27/18 History insulin aspart U-100 [Novolog 2 - 12 unit SUB-Q ACHS 06/01/18 06/27/18 History Flexpen U-100 Insulin] bisacodyl [Dulcolax (bisacodyl)] 10 mg DE DAILY PRN 06/17/18 06/27/18 History ferrous sulfate 325 mg PO BID 06/17/18 06/27/18 History furosemide 40 mg IV DAILY 06/17/18 06/27/18 History furosemide [Lasix] 40 mg PO DAILY 06/17/18 06/27/18 History magnesium citrate [Citroma] 30 ml PO DAILY PRN 06/17/18 06/27/18 History magnesium hydroxide [Milk of 30 ml PO DAILY PRN 06/17/18 06/27/18 History Magnesia] melatonin 6 mg PO HS PRN 06/17/18 06/27/18 History methylprednisolone sod suc(PF) 125 mg IM QAM 06/17/18 06/27/18 History [Solu-Medrol (PF)] multivitamin with minerals 1 tab PO DAILY 06/17/18 06/27/18 History torsemide 20 mg PO BID 06/17/18 06/27/18 History escitalopram oxalate 10 mg PO DAILY 06/27/18 06/27/18 History Advance Directives Living Will: No Healthcare Surrogate: Yes (Will have patient sign designation form today) Health Care Surrogate Name and Number: Don Rudd [phone] Power of Pump Servicer Helper: No Documented care wishes: That patient was able to designate his brother Don Nix as his Healthcare surrogate. Will have him sign designation form today. Spoke with Don and he agrees to serve as HCS Today's verbally stated goals: The patient voiced his frustration with his frequent hospitalizations though he states he ultimately wants to "keep going for his family". He is currently able to participate in his own healthcare decisions. He is hopeful that he will be able to move closer to his family in [place] Family/friends goals: In conversation with his brother Don and son, Maldonado they both agree to keep goals aggressive and are actively weighing options to relocate the patient closer Ethical and Legal Issues: The patient has signed a designation of health care surrogate form naming his brother, Don as his surrogate. His brother has agreed to serve. Physical Exam Vital Signs: Vital Signs - 24 hr 06/27/18 11:37 06/27/18 11:56 06/27/18 12:00 Temperature 98.0 F Pulse Rate 70 70 Respiratory Rate 17 18 Blood Pressure 120/63 Pulse Oximetry 97 96 96 06/27/18 12:38 06/27/18 13:00 06/27/18 14:00 Temperature Pulse Rate 66 66 61 Respiratory Rate 16 17 13 Blood Pressure 124/72 122/58 L Pulse Oximetry 96 95 06/27/18 15:00 06/27/18 16:00 06/27/18 17:00 Temperature 98.4 F Pulse Rate 62 63 64 Respiratory Rate 20 14 21 Blood Pressure 111/59 L 105/67 114/58 L Pulse Oximetry 94 L 99 95 06/27/18 18:00 06/27/18 18:01 06/27/18 19:00 Temperature Pulse Rate 63 64 74 Respiratory Rate 23 22 38 H Blood Pressure 130/61 130/61 Pulse Oximetry 94 L 96 89 L 06/27/18 19:32 06/27/18 19:53 06/27/18 20:00 Temperature 98.4 F Pulse Rate 74 72 71 Respiratory Rate 34 H 28 H 17 Blood Pressure 114/59 L 118/58 L Pulse Oximetry 85 L 91 L 93 L 06/27/18 21:55 06/28/18 00:00 06/28/18 04:00 Temperature 98.6 F 98.0 F Pulse Rate 76 92 H Respiratory Rate 21 21 Blood Pressure 118/68 130/63 Pulse Oximetry 94 L 92 L 92 L 06/28/18 04:10 06/28/18 04:12 06/28/18 08:00 Temperature Pulse Rate 79 82 Respiratory Rate 13 16 Blood Pressure Pulse Oximetry 95 97 I&O: Intake & Output 06/26/18 06/27/18 06/28/18 06/29/18 06:59 06:59 06:59 06:59 Intake Total 450 / 450 Output Total 475 / 475 Balance -25 / -25 Weight 147.418 kg 151.5 kg Physical Exam: CONSTITUTIONAL/GENERAL: This is an adequately nourished patient, in no acute distress. TUBES/LINES/DRAINS:PIV, Barrientos cath, Nasal canula SKIN: No jaundice, rashes, or lesions. Ecchymoses on right upper extremity. No wounds seen anteriorly. Skin temperature appropriate. Not diaphoretic. Dimpling of BLE noted with some mild weeping HEAD: Atraumatic. Normocephalic. EYES: Pupils equal and round and reactive. Extraocular motions intact. No scleral icterus. No injection or drainage. Fundi not examined. ENT: Hearing grossly normal. Nose without bleeding or purulent drainage. Throat without visible erythema, exudates, masses, or lesions. NECK: Trachea midline. Supple, nontender. No palpable thyroid enlargement or nodularity. CARDIOVASCULAR: Regular rate and rhythm without murmurs, gallops, or rubs. Heart sounds are distant No JVD. Peripheral pulses symmetric. RESPIRATORY/CHEST: Symmetric, slightly labored respirations. Scattered rhonchi throughout with LLL expiratory wheezing. Breath sounds equal bilaterally. GASTROINTESTINAL: Abdomen soft, obese, non-tender, nondistended. No hepato- splenomegaly, or palpable masses. No guarding. Bowel sounds hypoactive. GENITOURINARY: Without palpable bladder distension. Barrientos catheter in place. MUSCULOSKELETAL: 2+ edema to BLE. No joint tenderness or effusion noted. No calf tenderness. No mottling or clubbing. LYMPHATICS: No palpable cervical or supraclavicular adenopathy. NEUROLOGICAL: Awake and alert. Motor and sensory grossly within normal limits. Follows commands. Cognitively sharp. Moves all extremities. PSYCHIATRIC: No obvious anxiety/depression. no apparent hallucinations or other psychotic thought process. Diagnostic Tests Laboratory: Laboratory Results - last 72 hr 06/27/18 06/27/18 06/27/18 06:45 06:45 06:45 WBC 4.7 RBC 2.85 L Hgb 8.0 L Hct 25.4 L MCV 89.1 MCH 28.0 MCHC 31.5 L RDW 22.6 H Plt Count 269 D MPV 7.3 Neut % (Auto) 72.3 H Lymph % (Auto) 13.3 [place] % (Auto) 10.3 H Eos % (Auto) 2.9 Baso % (Auto) 1.2 Neut # (Auto) 3.4 Lymph # (Auto) 0.[address] [place] # (Auto) 0.5 Eos # (Auto) 0.1 Baso # (Auto) 0.1 WBC Differential . Differential Comment Auto diff final Puncture Site Patient Temperature O2 Saturation ABG pH ABG pCO2 ABG pO2 ABG HCO3 ABG O2 Content ABG Base Excess ABG Methemoglobin Daryn Test Hemoglobin Carboxyhemoglobin O2 Delivery Device Vent Setting Inspired O2 Critical Value Sodium 139 Potassium 4.4 Chloride 92 L Carbon Dioxide 43.2 H Anion Gap 4 L BUN 38 H Creatinine 1.55 H Estimated GFR 45 L Random Glucose 102 Calcium 9.0 Total Bilirubin 1.2 H AST 17 ALT 20 Alkaline Phosphatase 173 H Troponin I 0.02 B-Natriuretic Peptide Total Protein 6.4 Albumin 2.9 L Nasal Screen MRSA (PCR) Digoxin 2.1 H 06/27/18 06/27/18 06/27/18 06:45 06:45 11:15 WBC RBC Hgb Hct MCV MCH MCHC RDW Plt Count MPV Neut % (Auto) Lymph % (Auto) [place] % (Auto) Eos % (Auto) Baso % (Auto) Neut # (Auto) Lymph # (Auto) [place] # (Auto) Eos # (Auto) Baso # (Auto) WBC Differential Differential Comment Puncture Site Left radial Patient Temperature 98.6 O2 Saturation 92 ABG pH 7.42 ABG pCO2 67 H* ABG pO2 75 ABG HCO3 43 H ABG O2 Content 10.1 L ABG Base Excess 17.2 H ABG Methemoglobin 0.4 Daryn Test Present Hemoglobin 7.8 L* Carboxyhemoglobin 3.5 O2 Delivery Device Bipap Vent Setting Ipap15 epap 5 Inspired O2 40 Critical Value Yes Sodium Potassium Chloride Carbon Dioxide Anion Gap BUN Creatinine Estimated GFR Random Glucose Calcium Total Bilirubin AST ALT Alkaline Phosphatase Troponin I B-Natriuretic Peptide 646 H Total Protein Albumin Nasal Screen MRSA (PCR) Not detected Digoxin 06/28/18 04:55 WBC RBC Hgb Hct MCV MCH MCHC RDW Plt Count MPV Neut % (Auto) Lymph % (Auto) [place] % (Auto) Eos % (Auto) Baso % (Auto) Neut # (Auto) Lymph # (Auto) [place] # (Auto) Eos # (Auto) Baso # (Auto) WBC Differential Differential Comment Puncture Site Patient Temperature O2 Saturation ABG pH ABG pCO2 ABG pO2 ABG HCO3 ABG O2 Content ABG Base Excess ABG Methemoglobin Daryn Test Hemoglobin Carboxyhemoglobin O2 Delivery Device Vent Setting Inspired O2 Critical Value Sodium 138 Potassium 4.6 Chloride 90 L Carbon Dioxide 39.5 H Anion Gap 9 BUN 45 H Creatinine 1.61 H Estimated GFR 43 L Random Glucose 137 H Calcium 8.7 Total Bilirubin AST ALT Alkaline Phosphatase Troponin I B-Natriuretic Peptide Total Protein Albumin Nasal Screen MRSA (PCR) Digoxin Result Diagrams: 06/27/18 06:45 06/28/18 04:55 Imaging: Impressions Chest X-Ray 06/27/18 06:30 CONCLUSION: Slightly improved lung exam. Findings are compatible with congestive heart failure and pulmonary edema versus volume overload from patient's renal disease. Patient/Family Conference Present at Family Conference: Don Nix, brother/[facility] [phone] Maldonado Nix, son [phone] was called at [phone] Family Conference Location: Telephone Issues Discussed: * Palliative care role, purpose, approach * Additional medical, psychosocial, and spiritual history * Patients general health, functional status, and cognitive changes in the months leading up to the current hospitalization * Patient/family understanding of the current medical problems * Patient/family understanding of prognosis * Patients goals of care as best understood from conversations and/or values * Current medical treatment options and benefits/burdens of those options * Questions answered to the best of my ability * Palliative care contact information provided In summary, Mr. Nix is currently able to participate in his own health care decisions. His goals remain aggressive at this time including full code. He was able to name his brother, Don Nix as his HCS should he become incapacitated at any time. His ultimate goal is to be able to move to [place] to be closer to his family. Assessment and Plan - Disease Oriented Problem List (1) Acute exacerbation of chronic obstructive pulmonary disease (COPD) - Symptom Scale (1) Dyspnea 0-10 Scale: 4 (2) Debility 0-10 Scale: 5 Pertinent Non-Medical Issues: Psychosocial: Mr. Nix has been living in the [facility] area for the last 17 years. He is originally from [facility] and used to work in [place]. 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 He has 3 adult children Maldonado, Za, and Lamont. Spiritual: Scientologist Legal: The patient named his brother Don Nix, his healthcare surrogate and signed a designation form today. Ethical issues impacting care: There are currently no known ethical issues impacting care at this time Important Contacts: Maldonado Nix, son [phone] Don Titus, brother/ [facility] [phone] Prognosis: The patient should be able to be stabilized on discharged back to his SNF. Given his current medical trajectory he is at risk for further respiratory compromise and possible intubation. Given his current medical state, this would result in increased debility morbidity. Code Status: Full Code Plan: * LEGAL DECISION MAKER -the patient was able to sign a designation of healthcare surrogate naming his brother, Don Nix ([phone]) as his HCS. His brother has agreed to service his healthcare surrogate. Copy this form was placed in the chart as well as sent down to medical records to be scanned into the electronic medical record. * GOALS - Mr. Nix is currently able to participate in his own health care decisions. His goals remain aggressive at this time including full code. His ultimate goal is to be able to move to [place] to be closer to his family. * CODE STATUS -FULL CODE * SYMPTOMS - Dyspnea - patient states he is always short of breath at baseline. He usually wears 2 L nasal cannula at home but is recently been increased to 4 L. He is currently been weaned off BiPAP and is currently between 88 - 92% on 5 L nasal cannula. Patient is continuing with diuretic therapy and continues to work with respiratory therapy for good pulmonary toilet. Will suggest getting patient to work with physical therapy to get out of bed to help increase lung expansion. Debility -the patient has been struggling with mobility and functioning current ADLs for some time. He has been in and out of SNF for a few months now as it is no longer safe for him to be at home alone. He requires help with most ADLs suggest patient working with PT and OT and attempt to at least maintain his current functionality * Palliative care will continue to follow during hospital course as condition evolves, to assist patient/decision maker with understanding of medical conditions, weighing benefits/burdens of treatment options, for clarification of goals of treatment. Additionally will assist with any symptoms of palliative concern. Appreciation Thank you for the opportunity to participate in the care of Zeeshan Nix.
--- NOTE | 2018-06-28 10:33 | P.PN ---
Subjective Interval history: Follow-up on acute mixed hypoxic hypercarbic respiratory failure. Nursing reports that the patient would desat 89-90 on 4 L so he is bumped up to 6 L. Patient is awake, says he did not sleep well. Patient says his current mild shortness of breath is typical for him. On 2 L saturation test he notably desats to 84%, 2 L is his chronic home requirement. Physical Exam Vital signs: Vital Signs 06/27/18 11:37 06/27/18 11:56 06/27/18 12:00 Temperature 98.0 F Pulse Rate 70 70 Respiratory Rate 17 18 Blood Pressure 120/63 Pulse Oximetry 97 96 96 06/27/18 12:38 06/27/18 13:00 06/27/18 14:00 Temperature Pulse Rate 66 66 61 Respiratory Rate 16 17 13 Blood Pressure 124/72 122/58 L Pulse Oximetry 96 95 06/27/18 15:00 06/27/18 16:00 06/27/18 17:00 Temperature 98.4 F Pulse Rate 62 63 64 Respiratory Rate 20 14 21 Blood Pressure 111/59 L 105/67 114/58 L Pulse Oximetry 94 L 99 95 06/27/18 18:00 06/27/18 18:01 06/27/18 19:00 Temperature Pulse Rate 63 64 74 Respiratory Rate 23 22 38 H Blood Pressure 130/61 130/61 Pulse Oximetry 94 L 96 89 L 06/27/18 19:32 06/27/18 19:53 06/27/18 20:00 Temperature 98.4 F Pulse Rate 74 72 71 Respiratory Rate 34 H 28 H 17 Blood Pressure 114/59 L 118/58 L Pulse Oximetry 85 L 91 L 93 L 06/27/18 21:55 06/28/18 00:00 06/28/18 04:00 Temperature 98.6 F 98.0 F Pulse Rate 76 92 H Respiratory Rate 21 21 Blood Pressure 118/68 130/63 Pulse Oximetry 94 L 92 L 92 L 06/28/18 04:10 06/28/18 04:12 06/28/18 08:00 Temperature Pulse Rate 79 82 Respiratory Rate 13 16 Blood Pressure Pulse Oximetry 95 97 Intake & Output 06/27/18 06/28/18 06/28/18 18:59 06:59 18:59 Intake Total 450 / 450 Output Total 475 / 475 Balance -25 / -25 Weight 151.5 kg 151.5 kg Intake: Oral 450 / 450 Output: Urine Amount (Catheter) 475 / 475 Condom 475 / 475 Other: Weight On Admission 151.5 kg Narrative: Muffled heart sounds Diminished breath sounds in the bases but no conversive dyspnea - Urinary Catheter Management Condom Cath placed during this visit: no Results - Labs CBC & Chem 7: 06/27/18 06:45 06/28/18 04:55 Laboratory Results - last 24 hr 06/27/18 06/28/18 11:15 04:55 Sodium 138 Potassium 4.6 Chloride 90 L Carbon Dioxide 39.5 H Anion Gap 9 BUN 45 H Creatinine 1.61 H Estimated GFR 43 L Random Glucose 137 H Calcium 8.7 Nasal Screen MRSA (PCR) Not detected Assessment and Plan - Plan 62-year-old white male being admitted for shortness of breath with acute hypercarbic and hypoxic respiratory failure. unlikely CHF as bnp is mildly elevated at 646 and CXR not as convincing for such. Shortness of breath Acute hypercarbic and hypoxic respiratory failure -likely multifactorial with acute airway compromise initially due to mechanical obstruction due to suspected undiagnosed severe sleep apnea w/ failure to wear home oxygen as well as possible asthma exacerbation -Hypercarbic element likely resolved, now with just remaining hypoxic element Continue steroids and diuresis and duonebs, monitoring I's and O's - raise head of bed - consulting pulmonology, difficult to wean from 6 to home 2 L. Atrial fibrillation s/p ablation, Continue metoprolol, -hold digoxin due to slightly supra-therapeutic levels. may no longer need digoxin given hx of ablation, monitor HR while in-house and decide at end to dc digoxin indefinitely. - continue, Cardizem - lovenox while inpt; xarelto on hold for any possible procedures CKD - likely 2/2 CHF w/ preserved EF Anemia - likely chronic disease/and or iron def - continue oral iron Due to multiple admissions for the same region waiting palliative care to elucidate goals of care for the patient. Discharge Planning: Needs oxygenation to improve back down to baseline before being discharged to a rehab facility
--- NOTE | 2018-06-28 21:38 | MB ---
cc: Dereck Clark MD DATE: 06/28/2018 REQUESTING PHYSICIAN: Holden Jama MD REASON FOR CONSULTATION: Respiratory insufficiency. HISTORY OF PRESENT ILLNESS: Mr. Nix is a pleasant 62-year-old morbidly obese male who has a history of COPD, sleep apnea. He was brought from [facility] because of worsening of his shortness of breath. The patient says he has not been walking much because of his weakness and shortness of breath. He uses oxygen 2 liters nasal cannula. Denies any chest pain. No fevers. No night sweats. He does have chronic swelling in his legs. Because of the symptom, he was evaluated in the emergency room. WBC is 24.7, hemoglobin 8, hematocrit 25.4, platelet 269. Blood gas pH 7.42, pCO2 of 67, pO2 75, bicarbonate 40, bicarbonate 43, saturation 92%. His sodium 130, potassium 4.6, chloride 90, CO2 39, BUN 40, creatinine 1.61. His chest x-ray shows slightly improved appearance compatible with pulmonary edema and congestive heart failure. Currently on 6 liter nasal cannula. He did use BiPAP at night. PAST MEDICAL HISTORY: Significant for history of sleep apnea, COPD, congestive heart failure, hypertension, morbid obesity. MEDICATIONS: He is currently takin. Albuterol nebulizer treatment. 2. Lipitor 40 mg a day. 3. Aspirin 81 mg a day. 4. Symbicort 160/4.5 two puffs twice a day. 5. Bumex 1 mg twice a day. 6. Diltiazem 240 mg a day. 7. Lovenox 100 mg every 12 hours. 8. Lexapro 10 mg. 9. Ferrous repeat 325 mg a day. 10. Melatonin 6 mg every 12 hours. 11. Metoprolol 100 mg twice a day. 12. Morphine for pain. 13. Potassium supplement. 14. Flomax 0.4 mg a day. ALLERGIES: NO KNOWN DRUG ALLERGIES. SOCIAL HISTORY: He has no history of smoking. 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 FAMILY HISTORY: He is , has grown children, lives with a roommate. REVIEW OF SYSTEMS: Walks only short distance, uses oxygen 2 L nasal cannula. No malignancy. No DVT or pulmonary embolism. PHYSICAL EXAMINATION: GENERAL: Morbidly obese male, mildly short of breath. VITAL SIGNS: His blood pressure is 117/63, heart rate 70, respirations 20, temperature 99.1. HEENT: Pupils are equal. PLAN: Use BiPAP at nighttime. Supplement his oxygen to keep the saturation between 88% and 92%. Monitor his blood sugars and renal function. Monitor his blood sugar. Monitor his renal function. Supplement his oxygen. Continue aerosol treatment. He is on Lovenox 100 mg twice a day. He will need sleep study as outpatient when he gets better. Further treatment will depend on the course in the hospital. Thank you Dr. Jama for this consultation. MD LITZY Calix/ns/do , 06:43 PM , 06:55 PM AINSLEY
[2018-06-29] MEDS: Morphine Sulfate Inj 2 MG/ML Vial IV.PUSH PRN (05:13)
[2018-06-29] MEDS: MethylPREDNISolone Sod Succinate Inj 125 MG/2 ML Vial IV.PUSH SCH ×2 (08:13→22:20)
[2018-06-29] MEDS: Enoxaparin Inj 100 MG/ML Syringe SQ SCH (08:14)
[2018-06-29] MEDS: dilTIAZem CD 240 MG Capsule PO SCH (08:14)
[2018-06-29] MEDS: Metoprolol Tartrate 100 MG Tablet PO SCH ×2 (08:14→22:20)
[2018-06-29] MEDS: Ferrous Sulfate 325 MG Tablet PO SCH ×2 (08:15→22:19)
[2018-06-29] MEDS: Nystatin 100,000 UNITS/GM Powder 15 GM Bottle TOPICAL SCH ×4 (08:15→22:19)
[2018-06-29] MEDS: Escitalopram 10 MG Tablet PO SCH (08:15)
[2018-06-29] MEDS: Budesonide-Formoterol 160/4.5 MCG 6 GM Inhaler INH SCH ×2 (08:16→22:18)
[2018-06-29 08:21] LABS: Carbon Dioxide 38.4 meq/L (21.0-32.0); Potassium 4.9 meq/L (3.5-5.1)
[2018-06-29] MEDS ORDERED: Dextrose 50% in Water 50 ML Vial IV.PUSH PRN (10:32)
--- NOTE | 2018-06-29 10:34 | P.PNIM ---
Subjective Interval history: 62-year-old white male being admitted for shortness of breath. History is limited as the patient is very fatigued, obtained otherwise from emergency room physician and [facility] facility staff. Patient was in his usual state of health until sometime in the last 12 hours when he was found lying down flat not wearing his oxygen with labored breathing. "Patient was lying flat in bed without oxygen sats @ 55%." He had a DuoNeb with climbing sats to 63-67 and he was on 4 L a minute being ventilated. Atrovent was administered about 520 am" with O2 sats fluctuating between 73 and 83. On-call PA instructed him to be sent to the hospital. 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 They state that he is supposed to be wearing 2 L minimum all the time, does not have any BiPAP or CPAP mask to wear at night. In the emergency department patient was placed on BiPAP. His ABG demonstrated elevated CO2 around 67 with a normal PO2. Chest x-ray which was obtained showed mild pulmonary edema per my independent review. Noted to have chronic anemia w/ hb at 8. Patient was given IV Lasix and Solu-Medrol as well as DuoNeb treatments. He has had multiple admissions over the last 30 days, most notably he had one where he was discharged about 12 days ago for similar reason (CHF and COPD exacerbation). Was discharged to [facility] for SNF purposes. They are confident he cannot live on his own at this point. Patient has a charted history of COPD but he has a pulmonary function test from 2016 which demonstrates significant response to bronchodilators to an otherwise pattern of moderate to severe obstructive airway disease -this convincing me he has rather asthma as opposed to COPD -especially since he denies a smoking history. 10-15 Follow-up on acute mixed hypoxic hypercarbic respiratory failure. Nursing reports that the patient would desat 89-90 on 4 L so he is bumped up to 6 L. Patient is awake, says he did not sleep well. Patient says his current mild shortness of breath is typical for him. On 2 L saturation test he notably desats to 84%, 2 L is his chronic home requirement. 10-16 STILL ON MORE THAN 2 LITERS OF OXYGEN TRY TO DECREASE OXYGEN USE TODAY INCREASE ACTIVITY PT AND OT AM LAB ADD MUCINEX Physical Exam Vital signs: Vital Signs 06/28/18 11:00 06/28/18 12:00 06/28/18 13:00 Temperature 99.1 F Pulse Rate 80 79 77 Respiratory Rate 26 H 29 H 30 H Blood Pressure 125/81 117/63 115/58 L Pulse Oximetry 94 L 90 L 94 L 06/28/18 13:33 06/28/18 14:00 06/28/18 15:00 Temperature Pulse Rate 75 78 75 Respiratory Rate 16 26 H 25 H Blood Pressure 119/57 L 115/56 L Pulse Oximetry 95 93 L 06/28/18 16:00 06/28/18 16:01 06/28/18 16:46 Temperature 99.1 F Pulse Rate 80 81 83 Respiratory Rate 34 H 27 H 20 Blood Pressure 89/53 L 89/53 L 129/67 Pulse Oximetry 93 L 93 L 95 06/28/18 17:00 06/28/18 17:54 06/28/18 18:00 Temperature Pulse Rate 82 79 78 Respiratory Rate 25 H 25 H 24 Blood Pressure 116/59 L 117/61 Pulse Oximetry 97 96 96 06/28/18 19:00 06/28/18 20:00 06/28/18 20:59 Temperature 98.4 F Pulse Rate 82 79 77 Respiratory Rate 36 H 23 24 Blood Pressure 110/71 108/55 L Pulse Oximetry 93 L 94 L 94 L 06/28/18 21:00 06/28/18 22:00 06/28/18 22:01 Temperature Pulse Rate 77 73 75 Respiratory Rate 23 26 H 32 H Blood Pressure 113/58 L 116/62 Pulse Oximetry 94 L 94 L 94 L 06/28/18 23:00 06/28/18 23:01 06/28/18 23:17 Temperature Pulse Rate 67 67 Respiratory Rate 29 H 24 Blood Pressure 120/74 Pulse Oximetry 92 L 89 L 97 06/29/18 00:00 06/29/18 00:01 06/29/18 01:00 Temperature Pulse Rate 65 66 66 Respiratory Rate 25 H 21 14 Blood Pressure 123/68 123/68 131/65 Pulse Oximetry 95 97 94 L 06/29/18 02:00 06/29/18 02:01 06/29/18 03:00 Temperature Pulse Rate 70 67 66 Respiratory Rate 20 13 16 Blood Pressure 111/58 L 111/58 L Pulse Oximetry 94 L 94 L 94 L 06/29/18 03:01 06/29/18 03:17 06/29/18 04:00 Temperature Pulse Rate 66 66 70 Respiratory Rate 14 15 Blood Pressure 132/69 118/52 L Pulse Oximetry 94 L 93 L 06/29/18 04:31 06/29/18 05:00 06/29/18 06:00 Temperature Pulse Rate 73 70 Respiratory Rate 19 22 Blood Pressure 132/66 143/62 H Pulse Oximetry 95 95 95 06/29/18 06:26 06/29/18 07:00 Temperature Pulse Rate 75 Respiratory Rate 18 16 Blood Pressure Pulse Oximetry 97 Intake & Output 06/28/18 06/29/18 06/29/18 18:59 06:59 18:59 Intake Total 200 / 200 Output Total 700 / 700 Balance -500 / -500 Weight 151.5 kg 149 kg Intake: Oral 200 / 200 Output: Urine 700 / 700 Other: Date of Last Bowel Movement 06/28/18 06/28/18 Weight On Admission 151.5 kg Narrative: GENERAL: Awake alert and oriented x3 talkative and cooperative appears to be in no acute distress SKIN: Warm and dry. HEAD: Atraumatic. Normocephalic. EYES: Pupils equal and round. No scleral icterus. No injection or drainage. EOMI ENT: No nasal bleeding or discharge. Mucous membranes pink and moist. Tongue is midline NECK: Trachea midline. No JVD. Supple CARDIOVASCULAR: Regular rate and rhythm. RESPIRATORY: No accessory muscle use. Clear to auscultation. Breath sounds equal bilaterally. Decreased breath sounds bilaterally with some scattered rhonchi GASTROINTESTINAL: Abdomen soft, non-tender, nondistended. Hepatic and splenic margins not palpable. MUSCULOSKELETAL: Extremities without clubbing, cyanosis, +3-4+ bilateral lower extremity chronic brawny edema. no obvious deformities. NEUROLOGICAL: Awake and alert. No obvious cranial nerve deficits. Motor grossly within normal limits. Five out of 5 muscle strength in the arms and legs. Normal speech. PSYCHIATRIC: Appropriate mood and affect; insight and judgment normal. - Urinary Catheter Management Condom Cath placed during this visit: no Results - Labs CBC & Chem 7: 06/27/18 06:45 06/29/18 06:35 Laboratory Results - last 24 hr 06/29/18 06:35 Sodium 141 Potassium 4.9 Chloride 93 L Carbon Dioxide 38.4 H Anion Gap 10 BUN 57 H Creatinine 1.87 H Estimated GFR 37 L Random Glucose 166 H Calcium 9.0 - Procedures NONE Assessment and Plan - Plan 62-year-old white male being admitted for shortness of breath with acute hypercarbic and hypoxic respiratory failure. unlikely CHF as bnp is mildly elevated at 646 and CXR not as convincing for such. Shortness of breath Acute hypercarbic and hypoxic respiratory failure -likely multifactorial with acute airway compromise initially due to mechanical obstruction due to suspected undiagnosed severe sleep apnea w/ failure to wear home oxygen as well as possible asthma exacerbation/COPD -Hypercarbic element likely resolved, now with just remaining hypoxic element Continue steroids and diuresis and duonebs, monitoring I's and O's-add Mucinex add Symbicort if he is not on - raise head of bed - consulting pulmonology, difficult to wean from 6 to home 2 L.-Patient refused bronchoscopy Atrial fibrillation s/p ablation, Continue metoprolol, -hold digoxin due to slightly supra-therapeutic levels. may no longer need digoxin given hx of ablation, monitor HR while in-house and decide at end to dc digoxin indefinitely. - continue, Cardizem -Restart Xarelto since he refusing procedures Chronic anticoagulation -Continue on Xarelto as at home-no procedure scheduled CKD - likely 2/2 CHF w/ preserved EF Anemia - likely chronic disease/and or iron def - continue oral iron Diabetes -continue on sliding scale coverage and Accu-Cheks before meals and at bedtime Morbid obesity -Weight loss recommended GERD -Continue on PPI Hyperlipidemia -Continue on statin Depression/anxiety -Continue on citalopram Due to multiple admissions for the same region waiting palliative care to elucidate goals of care for the patient. Discharge Planning: Needs oxygenation to improve back down to baseline before being discharged to a rehab facility A.m. labs Code Status: Full code Discussed Condition With: RN and patient Discharge Planning: Will go back to SNF once breathing is improved
[2018-06-29] MEDS: Insulin NovoLOG Aspart Correctional Sugar Inj SQ SCH ×3 (12:41→22:20)
[2018-06-29] MEDS: Calcium Acetate 667 MG Capsule PO SCH ×2 (12:58→17:11)
--- NOTE | 2018-06-29 15:04 | P.PNPAL ---
Reason for Visit Reason for visit: a. To assist with evaluation and management of symptoms including: dyspnea, debility b. To assist medical decision maker(s) with: better understanding of current medical conditions; weighing benefits/burdens of medical treatment options; making medical treatment decisions. Subjective Subjective/Interval History: Mr. Nix is a 62yo gentleman with a past medical history of A. fib, diastolic CHF, COPD, obstructive sleep apnea, hypertension, chronic kidney disease, and diabetes. He has had multiple admissions in the past 30 days for complaints of shortness of breath. 1 of these visits back in December 2017 required intubation. The patient is currently living in a rehab facility was found to be in respiratory distress with oxygen saturations of 50%. He normally requires 4 L of oxygen via nasal cannula continuously, and it is unsure if he has been compliant with this therapy. He was transported to [facility] emergency room for further evaluation and treatment. Today's clinical information is as follows: * NA 141, K+ 4.9, CL 93, BUN 57, creatinine 1.87, glucose 166, estimated GFR 57 * No new imaging available today 06/29/18 Palliative care to follow-up on symptom management, goals. Patient appears more relaxed today. He states he is not as short of breath as he was yesterday. He is down from 5L NC to 3L. He slept better and appetite is doing well. Physical therapy was able to see him today and work on bed mobility and sitting at the edge of the bed. [facility] that [facility] belongings were properly locked up which made him feel more at ease. He is hopeful that he can be transferred out of the ICU today and discharged back to rehab soon. His ultimate goal remains to try and move to [place] closer to his brother and family. Family/Friend Interactions: for son, Maldonado for daily update. Don is unavailable as he is out of the country and will return next Thursday Advance Directives Living Will: Never completed Health Care Surrogate: Copy in medical record Durable Power of Cab Supervisor: Never completed Health Care Surrogate Name and Number: Don Rudd [phone] Documented care wishes:: That patient was able to designate his brother Don Nix as his Healthcare surrogate. Will have him sign designation form today. Spoke with Don and he agrees to serve as HCS Significant change in goals:: No significant changes in goals. Patient remains aggressive with care goals and is hopeful to be discharged soon and ultimately moved to [place]. Objective Vital Signs: Vital Signs 06/28/18 16:00 06/28/18 16:01 06/28/18 16:46 Temperature 99.1 F Pulse Rate 80 81 83 Respiratory Rate 34 H 27 H 20 Blood Pressure 89/53 L 89/53 L 129/67 Pulse Oximetry 93 L 93 L 95 06/28/18 17:00 06/28/18 17:54 06/28/18 18:00 Temperature Pulse Rate 82 79 78 Respiratory Rate 25 H 25 H 24 Blood Pressure 116/59 L 117/61 Pulse Oximetry 97 96 96 06/28/18 19:00 06/28/18 20:00 06/28/18 20:59 Temperature 98.4 F Pulse Rate 82 79 77 Respiratory Rate 36 H 23 24 Blood Pressure 110/71 108/55 L Pulse Oximetry 93 L 94 L 94 L 06/28/18 21:00 06/28/18 22:00 06/28/18 22:01 Temperature Pulse Rate 77 73 75 Respiratory Rate 23 26 H 32 H Blood Pressure 113/58 L 116/62 Pulse Oximetry 94 L 94 L 94 L 06/28/18 23:00 06/28/18 23:01 06/28/18 23:17 Temperature Pulse Rate 67 67 Respiratory Rate 29 H 24 Blood Pressure 120/74 Pulse Oximetry 92 L 89 L 97 06/29/18 00:00 06/29/18 00:01 06/29/18 01:00 Temperature Pulse Rate 65 66 66 Respiratory Rate 25 H 21 14 Blood Pressure 123/68 123/68 131/65 Pulse Oximetry 95 97 94 L 06/29/18 02:00 06/29/18 02:01 06/29/18 03:00 Temperature Pulse Rate 70 67 66 Respiratory Rate 20 13 16 Blood Pressure 111/58 L 111/58 L Pulse Oximetry 94 L 94 L 94 L 06/29/18 03:01 06/29/18 03:17 06/29/18 04:00 Temperature Pulse Rate 66 66 70 Respiratory Rate 14 15 Blood Pressure 132/69 118/52 L Pulse Oximetry 94 L 93 L 06/29/18 04:31 06/29/18 05:00 06/29/18 06:00 Temperature Pulse Rate 73 70 Respiratory Rate 19 22 Blood Pressure 132/66 143/62 H Pulse Oximetry 95 95 95 06/29/18 06:26 06/29/18 07:00 06/29/18 08:00 Temperature 97.8 F Pulse Rate 75 79 Respiratory Rate 18 16 24 Blood Pressure 147/65 H Pulse Oximetry 97 94 L 06/29/18 11:57 06/29/18 12:00 Temperature 98.4 F Pulse Rate 70 67 Respiratory Rate 22 26 H Blood Pressure 134/66 Pulse Oximetry Intake & Output 06/28/18 06/29/18 06/29/18 18:59 06:59 18:59 Intake Total 200 / 200 Output Total 700 / 700 Balance -500 / -500 Weight 151.5 kg 149 kg Intake: Oral 200 / 200 Output: Urine 700 / 700 Other: Date of Last Bowel Movement 06/28/18 06/28/18 06/28/18 Weight On Admission 151.5 kg Physical Exam: CONSTITUTIONAL/GENERAL: This is an adequately nourished patient, in no acute distress. TUBES/LINES/DRAINS:PIV, Barrientos cath, Nasal canula SKIN: No jaundice, rashes, or lesions. Ecchymoses on right upper extremity. No wounds seen anteriorly. Skin temperature appropriate. Not diaphoretic. Minimal weeping edema of BLE ENT: Hearing grossly normal. Nose without bleeding or purulent drainage. Throat without visible erythema, exudates, masses, or lesions. CARDIOVASCULAR: Regular rate and rhythm without murmurs, gallops, or rubs. Heart sounds are distant though improved from yesterday. No JVD. Peripheral pulses symmetric. RESPIRATORY/CHEST: Symmetric, slightly labored respirations. Clear to auscultation, diminished at the bases. Breath sounds equal bilaterally. GASTROINTESTINAL: Abdomen soft, obese, non-tender, nondistended. No hepato- splenomegaly, or palpable masses. No guarding. Bowel sounds hypoactive. GENITOURINARY: Without palpable bladder distension. Barrientos catheter in place. MUSCULOSKELETAL: 1+ edema to BLE. No joint tenderness or effusion noted. No calf tenderness. No mottling or clubbing. NEUROLOGICAL: Awake and alert. Motor and sensory grossly within normal limits. Follows commands. Cognitively sharp. Moves all extremities. PSYCHIATRIC: No obvious anxiety/depression. no apparent hallucinations or other psychotic thought process. Diagnostic Tests Laboratory: Laboratory Results - last 72 hr 06/27/18 06/27/18 06/27/18 06:45 06:45 06:45 WBC 4.7 RBC 2.85 L Hgb 8.0 L Hct 25.4 L MCV 89.1 MCH 28.0 MCHC 31.5 L RDW 22.6 H Plt Count 269 D MPV 7.3 Neut % (Auto) 72.3 H Lymph % (Auto) 13.3 [place] % (Auto) 10.3 H Eos % (Auto) 2.9 Baso % (Auto) 1.2 Neut # (Auto) 3.4 Lymph # (Auto) 0.6 L [place] # (Auto) 0.5 Eos # (Auto) 0.1 Baso # (Auto) 0.1 WBC Differential . Differential Comment Auto diff final Puncture Site Patient Temperature O2 Saturation ABG pH ABG pCO2 ABG pO2 ABG HCO3 ABG O2 Content ABG Base Excess ABG Methemoglobin Daryn Test Hemoglobin Carboxyhemoglobin O2 Delivery Device Vent Setting Inspired O2 Critical Value Sodium 139 Potassium 4.4 Chloride 92 L Carbon Dioxide 43.2 H Anion Gap 4 L BUN 38 H Creatinine 1.55 H Estimated GFR 45 L POC Glucose Random Glucose 102 Calcium 9.0 Total Bilirubin 1.2 H AST 17 ALT 20 Alkaline Phosphatase 173 H Troponin I 0.02 B-Natriuretic Peptide Total Protein 6.4 Albumin 2.9 L Nasal Screen MRSA (PCR) Digoxin 2.1 H 06/27/18 06/27/18 06/27/18 06:45 06:45 11:15 WBC RBC Hgb Hct MCV MCH MCHC RDW Plt Count MPV Neut % (Auto) Lymph % (Auto) [place] % (Auto) Eos % (Auto) Baso % (Auto) Neut # (Auto) Lymph # (Auto) [place] # (Auto) Eos # (Auto) Baso # (Auto) WBC Differential Differential Comment Puncture Site Left radial Patient Temperature 98.6 O2 Saturation 92 ABG pH 7.42 ABG pCO2 67 H* ABG pO2 75 ABG HCO3 43 H ABG O2 Content 10.1 L ABG Base Excess 17.2 H ABG Methemoglobin 0.4 Daryn Test Present Hemoglobin 7.8 L* Carboxyhemoglobin 3.5 O2 Delivery Device Bipap Vent Setting Ipap15 epap 5 Inspired O2 40 Critical Value Yes Sodium Potassium Chloride Carbon Dioxide Anion Gap BUN Creatinine Estimated GFR POC Glucose Random Glucose Calcium Total Bilirubin AST ALT Alkaline Phosphatase Troponin I B-Natriuretic Peptide 646 H Total Protein Albumin Nasal Screen MRSA (PCR) Not detected Digoxin 06/28/18 06/29/18 06/29/18 04:55 06:35 12:40 WBC RBC Hgb Hct MCV MCH MCHC RDW Plt Count MPV Neut % (Auto) Lymph % (Auto) [place] % (Auto) Eos % (Auto) Baso % (Auto) Neut # (Auto) Lymph # (Auto) [place] # (Auto) Eos # (Auto) Baso # (Auto) WBC Differential Differential Comment Puncture Site Patient Temperature O2 Saturation ABG pH ABG pCO2 ABG pO2 ABG HCO3 ABG O2 Content ABG Base Excess ABG Methemoglobin Daryn Test Hemoglobin Carboxyhemoglobin O2 Delivery Device Vent Setting Inspired O2 Critical Value Sodium 138 141 Potassium 4.6 4.9 Chloride 90 L 93 L Carbon Dioxide 39.5 H 38.4 H Anion Gap 9 10 BUN 45 H 57 H Creatinine 1.61 H 1.87 H Estimated GFR 43 L 37 L POC Glucose 267 H Random Glucose 137 H 166 H Calcium 8.7 9.0 Total Bilirubin AST ALT Alkaline Phosphatase Troponin I B-Natriuretic Peptide Total Protein Albumin Nasal Screen MRSA (PCR) Digoxin 06/29/18 12:43 WBC RBC Hgb Hct MCV MCH MCHC RDW Plt Count MPV Neut % (Auto) Lymph % (Auto) [place] % (Auto) Eos % (Auto) Baso % (Auto) Neut # (Auto) Lymph # (Auto) [place] # (Auto) Eos # (Auto) Baso # (Auto) WBC Differential Differential Comment Puncture Site Patient Temperature O2 Saturation ABG pH ABG pCO2 ABG pO2 ABG HCO3 ABG O2 Content ABG Base Excess ABG Methemoglobin Daryn Test Hemoglobin Carboxyhemoglobin O2 Delivery Device Vent Setting Inspired O2 Critical Value Sodium Potassium Chloride Carbon Dioxide Anion Gap BUN Creatinine Estimated GFR POC Glucose 275 H Random Glucose Calcium Total Bilirubin AST ALT Alkaline Phosphatase Troponin I B-Natriuretic Peptide Total Protein Albumin Nasal Screen MRSA (PCR) Digoxin Result Diagrams: 06/27/18 06:45 06/29/18 06:35 Assessment and Plan - Disease Oriented Problem List (1) Acute exacerbation of chronic obstructive pulmonary disease (COPD) - Symptom Scale (1) Dyspnea 0-10 Scale: 2 (2) Debility 0-10 Scale: 5 Pertinent Non-Medical Issues: Psychosocial: Mr. Nix has been living in the [facility] area for the last 17 years. He is originally from [facility] and used to work in [place]. 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 He has 3 adult children Maldonado, Za, and Lamont. Spiritual: Hindu Legal: The patient named his brother oDn Nix, his healthcare surrogate and signed a designation form today. Ethical issues impacting care: There are currently no known ethical issues impacting care at this time Important Contacts: Maldonado Nix, son [phone] Don Titus, brother/ HCS [phone] Prognosis: The patient should be able to be stabilized on discharged back to his SNF. Given his current medical trajectory he is at risk for further respiratory compromise and possible intubation. Given his current medical state, this would result in increased debility morbidity. Code Status: Full Code Plan: * LEGAL DECISION MAKER -the patient was able to sign a designation of healthcare surrogate naming his brother, Don Nix ([phone]) as his HCS. His brother has agreed to service his healthcare surrogate. Copy this form was placed in the chart as well as sent down to medical records to be scanned into the electronic medical record. * GOALS - Mr. Nix is currently able to participate in his own health care decisions. His goals remain aggressive at this time including full code. His ultimate goal is to be able to move to [place] to be closer to his family. * CODE STATUS -FULL CODE * SYMPTOMS: Dyspnea - patient states he is always short of breath at baseline. He usually wears 2 L nasal cannula at home but is recently been increased to 4 L. Currently on 3L nasal cannula. Patient is continuing with diuretic therapy and continues to work with respiratory therapy for good pulmonary toilet. Will suggest getting patient to work with physical therapy to get out of bed to help increase lung expansion. May also benefit from home sleep study as an outpatient as there is concern that most of his respiratory issues happen at night. He currently does not have reliable transportation to have sleep study done at a lab at this time, but would greatly benefit from CPAP/Bipap usage at night. Debility -the patient has been struggling with mobility and functioning current ADLs for some time. He has been in and out of SNF for a few months now as it is no longer safe for him to be at home alone. He requires help with most ADLs. Continue working with PT Palliative care will continue to follow during hospital course as condition evolves, to assist patient/decision maker with understanding of medical conditions, weighing benefits/burdens of treatment options, for clarification of goals of treatment. Additionally will assist with any symptoms of palliative concern. Attestation Attestation: To help prompt me to consider important information that might be impacting today's encounter and assessment, information from prior notes written by myself or my colleagues may have been "brought forward" into today's note. My signature on this note, however, is an attestation that I personally performed the exam, history, and/or decision-making noted today, and, unless otherwise indicated, the interactions with patient, family, and staff as well as the review of records all occurred today. I also attest that the listed assessment and stated plan reflect my best clinical judgment today based on the combination of historical information, prior notes, and today's exam/ interactions. When time spent is documented, it refers only to time spent today by the signer, or if indicated, combined time spent today by collaborating physician/nurse practitioner.
--- NOTE | 2018-06-29 17:45 | P.PNPL ---
Subjective Interval history: 62 YOWM with COPD,DM,DENIS, obesity admitted from [facility] Used BIPAP last night Now on 6LNC Has sob No Cough or sp No fever No CP Physical Exam Vital signs: Vital Signs 06/28/18 17:54 06/28/18 18:00 06/28/18 19:00 Temperature Pulse Rate 79 78 82 Respiratory Rate 25 H 24 36 H Blood Pressure 116/59 L 117/61 110/71 Pulse Oximetry 96 96 93 L 06/28/18 20:00 06/28/18 20:59 06/28/18 21:00 Temperature 98.4 F Pulse Rate 79 77 77 Respiratory Rate 23 24 23 Blood Pressure 108/55 L 113/58 L Pulse Oximetry 94 L 94 L 94 L 06/28/18 22:00 06/28/18 22:01 06/28/18 23:00 Temperature Pulse Rate 73 75 67 Respiratory Rate 26 H 32 H 29 H Blood Pressure 116/62 Pulse Oximetry 94 L 94 L 92 L 06/28/18 23:01 06/28/18 23:17 06/29/18 00:00 Temperature Pulse Rate 67 65 Respiratory Rate 24 25 H Blood Pressure 120/74 123/68 Pulse Oximetry 89 L 97 95 06/29/18 00:01 06/29/18 01:00 06/29/18 02:00 Temperature Pulse Rate 66 66 70 Respiratory Rate 21 14 20 Blood Pressure 123/68 131/65 111/58 L Pulse Oximetry 97 94 L 94 L 06/29/18 02:01 06/29/18 03:00 06/29/18 03:01 Temperature Pulse Rate 67 66 66 Respiratory Rate 13 16 14 Blood Pressure 111/58 L 132/69 Pulse Oximetry 94 L 94 L 94 L 06/29/18 03:17 06/29/18 04:00 06/29/18 04:31 Temperature Pulse Rate 66 70 Respiratory Rate 15 Blood Pressure 118/52 L Pulse Oximetry 93 L 95 06/29/18 05:00 06/29/18 06:00 06/29/18 06:26 Temperature Pulse Rate 73 70 Respiratory Rate 19 22 18 Blood Pressure 132/66 143/62 H Pulse Oximetry 95 95 06/29/18 07:00 06/29/18 08:00 06/29/18 11:57 Temperature 97.8 F Pulse Rate 75 79 70 Respiratory Rate 16 24 22 Blood Pressure 147/65 H Pulse Oximetry 97 94 L 06/29/18 12:00 Temperature 98.4 F Pulse Rate 67 Respiratory Rate 26 H Blood Pressure 134/66 Pulse Oximetry Intake & Output 06/28/18 06/29/18 06/29/18 18:59 06:59 18:59 Intake Total 200 / 200 Output Total 700 / 700 Balance -500 / -500 Weight 151.5 kg 149 kg Intake: Oral 200 / 200 Output: Urine 700 / 700 Other: Date of Last Bowel Movement 06/28/18 06/28/18 06/28/18 Weight On Admission 151.5 kg GENERAL: Obese WM, Mild sob SKIN: Warm and dry. HEAD: Normocephalic. EYES: No scleral icterus. No injection or drainage. NECK: Supple, trachea midline. No JVD or lymphadenopathy. CARDIOVASCULAR: Regular rate and rhythm without murmurs, gallops, or rubs. RESPIRATORY: Breath sounds equal bilaterally. No accessory muscle use. GASTROINTESTINAL: Abdomen soft, non-tender, nondistended. MUSCULOSKELETAL: No cyanosis, or edema. BACK: Nontender without obvious deformity. No CVA tenderness. - Urinary Catheter Management Condom Cath placed during this visit: no Assessment and Plan - Plan IMPRESSION: Hypercapnoic RF Compensated Resp acidosis COPD DENIS Obesity AF PLAN: Supplement 02 with NC, keep sat 88-92% Aerosol nebs BIPAP at night and prn Cont Solumedrol Xarelto 10 mg daily Diurease with BUmex Symbicort 2 puffs bid Palliative care consulted.
[2018-06-30] MEDS: Morphine Sulfate Inj 2 MG/ML Vial IV.PUSH PRN ×2 (00:57→09:19)
[2018-06-30] MEDS: Insulin NovoLOG Aspart Correctional Sugar Inj SQ SCH ×4 (02:55→17:15)
[2018-06-30] MEDS ORDERED: Rivaroxaban 10 MG Tablet PO SCH (09:00)
[2018-06-30] MEDS: Ferrous Sulfate 325 MG Tablet PO SCH (09:14)
[2018-06-30] MEDS: Nystatin 100,000 UNITS/GM Powder 15 GM Bottle TOPICAL SCH ×3 (09:14→17:14)
[2018-06-30] MEDS: Budesonide-Formoterol 160/4.5 MCG 6 GM Inhaler INH SCH (09:14)
[2018-06-30 09:15] LABS: Baso % (Auto) 0.1 % (0.0-2.0); Hematocrit 25.7 % (39.0-51.0); Hemoglobin 7.8 gm/dL (13.0-17.0); Lymph # (Auto) 0.2 th/mm3 (1.0-4.8); Lymph % (Auto) 3.9 % (9.0-44.0); Mean Corpuscular Hemoglobin 27.7 pg (27.0-34.0); Mean Platelet Volume 7.8 fL (7.0-11.0); Mono # (Auto) 0.3 th/mm3 (0.0-0.9); Mono % (Auto) 4.8 % (0.0-8.0); Neut # (Auto) 4.8 th/mm3 (1.8-7.7); Neut % (Auto) 91.2 % (16.0-70.0); Platelet Count 243 th/mm3 (150-450); Red Blood Count 2.82 mil/mm3 (4.50-5.90); Red Cell Distribution Width 23.5 % (11.6-17.2); White Blood Count 5.3 th/mm3 (4.0-11.0)
[2018-06-30] MEDS: Metoprolol Tartrate 100 MG Tablet PO SCH (09:15)
[2018-06-30] MEDS: Escitalopram 10 MG Tablet PO SCH (09:15)
[2018-06-30] MEDS: MethylPREDNISolone Sod Succinate Inj 125 MG/2 ML Vial IV.PUSH SCH (09:16)
[2018-06-30] MEDS: dilTIAZem CD 240 MG Capsule PO SCH (09:16)
[2018-06-30] MEDS: Calcium Acetate 667 MG Capsule PO SCH ×3 (09:16→17:14)
[2018-06-30 09:31] LABS: Mean Corpuscular HGB Conc 30.5 % (32.0-36.0)
[2018-06-30 09:47] LABS: Albumin 3.1 g/dL (3.4-5.0); Anion Gap 7 meq/L (5-15); Aspartate Aminotransferase 18 U/L (15-37); Blood Urea Nitrogen 70 mg/dL (7-18); Calcium 8.6 mg/dL (8.5-10.1); Carbon Dioxide 39.7 meq/L (21.0-32.0); Chloride 93 meq/L (98-107); Glomerular Filtration Rate 39 mL/min (>89); Glucose,Random 156 mg/dL (74-106); Magnesium 2.5 mg/dL (1.5-2.5); Potassium 4.9 meq/L (3.5-5.1); Sodium 140 meq/L (136-145)
[2018-06-30 10:07] LABS: Alanine Aminotransferase 26 U/L (12-78); Alkaline Phosphatase 157 U/L (45-117); Free T4 (Free Thyroxine) 0.85 ng/dL (0.76-1.46); Phosphorus 5.2 mg/dL (2.5-4.9); Total Protein 6.4 g/dL (6.4-8.2)
--- NOTE | 2018-06-30 17:04 | P.PNPL ---
Subjective Interval history: 62 YOWM with COPD,DM,DENIS, obesity admitted from [facility] Used BIPAP last night Weaned to 2LNC Has sob No Cough or sp No fever No CP Physical Exam Vital signs: Vital Signs 06/29/18 18:00 06/29/18 19:00 06/29/18 20:00 Temperature 99 F Pulse Rate 71 75 75 Respiratory Rate 23 33 H 34 H Blood Pressure 131/65 130/60 135/68 Pulse Oximetry 91 L 89 L 91 L 06/29/18 20:57 06/29/18 20:59 06/29/18 21:00 Temperature Pulse Rate 74 74 Respiratory Rate 19 27 H Blood Pressure 139/66 Pulse Oximetry 93 L 94 L 06/29/18 22:00 06/29/18 22:39 06/29/18 23:00 Temperature Pulse Rate 78 73 Respiratory Rate 21 26 H Blood Pressure 138/69 125/59 L Pulse Oximetry 90 L 96 96 06/30/18 00:00 06/30/18 01:46 06/30/18 04:00 Temperature Pulse Rate 70 66 Respiratory Rate 22 22 Blood Pressure 124/71 131/81 Pulse Oximetry 97 95 95 06/30/18 04:34 06/30/18 05:40 06/30/18 07:42 Temperature 97.5 F L Pulse Rate 76 73 Respiratory Rate 17 18 Blood Pressure 135/69 Pulse Oximetry 96 96 95 06/30/18 08:00 06/30/18 12:00 06/30/18 13:37 Temperature 97.4 F L 97.3 F L Pulse Rate 88 75 67 Respiratory Rate 19 18 18 Blood Pressure 124/60 124/69 Pulse Oximetry 92 L 91 L Intake & Output 06/29/18 06/30/18 06/30/18 18:59 06:59 18:59 Intake Total 160 / 160 Output Total 275 / 275 Balance -115 / -115 Weight 148 kg Intake: Oral 160 / 160 Output: Urine 275 / 275 Other: Date of Last Bowel Movement 06/28/18 06/28/18 GENERAL: Obese WM, NAD SKIN: Warm and dry. HEAD: Normocephalic. EYES: No scleral icterus. No injection or drainage. NECK: Supple, trachea midline. No JVD or lymphadenopathy. CARDIOVASCULAR: Regular rate and rhythm without murmurs, gallops, or rubs. RESPIRATORY: Breath sounds equal bilaterally. No accessory muscle use. GASTROINTESTINAL: Abdomen soft, non-tender, nondistended. MUSCULOSKELETAL: No cyanosis, or edema. BACK: Nontender without obvious deformity. No CVA tenderness. - Urinary Catheter Management Condom Cath placed during this visit: no Assessment and Plan - Plan IMPRESSION: Hypercapnoic RF Compensated Resp acidosis COPD DENIS Obesity AF PLAN: Supplement 02 with NC, keep sat 88-92% Aerosol nebs BIPAP at night and prn Cont Solumedrol Xarelto 10 mg daily Diurease with BUmex Symbicort 2 puffs bid Palliative care consulted. DC Plans underway.
--- NOTE | 2018-06-30 18:02 | P.PN ---
Physical Exam Vital signs: Vital Signs 06/29/18 19:00 06/29/18 20:00 06/29/18 20:57 Temperature 99 F Pulse Rate 75 75 74 Respiratory Rate 33 H 34 H 19 Blood Pressure 130/60 135/68 Pulse Oximetry 89 L 91 L 06/29/18 20:59 06/29/18 21:00 06/29/18 22:00 Temperature Pulse Rate 74 78 Respiratory Rate 27 H 21 Blood Pressure 139/66 138/69 Pulse Oximetry 93 L 94 L 90 L 06/29/18 22:39 06/29/18 23:00 06/30/18 00:00 Temperature Pulse Rate 73 70 Respiratory Rate 26 H 22 Blood Pressure 125/59 L 124/71 Pulse Oximetry 96 96 97 06/30/18 01:46 06/30/18 04:00 06/30/18 04:34 Temperature Pulse Rate 66 Respiratory Rate 22 Blood Pressure 131/81 Pulse Oximetry 95 95 96 06/30/18 05:40 06/30/18 07:42 06/30/18 08:00 Temperature 97.5 F L 97.4 F L Pulse Rate 76 73 88 Respiratory Rate 17 18 19 Blood Pressure 135/69 124/60 Pulse Oximetry 96 95 92 L 06/30/18 12:00 06/30/18 13:37 Temperature 97.3 F L Pulse Rate 75 67 Respiratory Rate 18 18 Blood Pressure 124/69 Pulse Oximetry 91 L Intake & Output 06/29/18 06/30/18 06/30/18 18:59 06:59 18:59 Intake Total 160 / 160 Output Total 275 / 275 Balance -115 / -115 Weight 148 kg Intake: Oral 160 / 160 Output: Urine 275 / 275 Other: Date of Last Bowel Movement 06/28/18 06/28/18 - Urinary Catheter Management Condom Cath placed during this visit: no Results - Labs CBC & Chem 7: 06/30/18 07:56 06/30/18 07:56 Laboratory Results - last 24 hr 06/29/18 06/29/18 06/30/18 18:02 22:15 02:52 WBC RBC Hgb Hct MCV MCH MCHC RDW Plt Count MPV Neut % (Auto) Lymph % (Auto) [place] % (Auto) Eos % (Auto) Baso % (Auto) Neut # (Auto) Lymph # (Auto) [place] # (Auto) Eos # (Auto) Baso # (Auto) WBC Differential Differential Comment Sodium Potassium Chloride Carbon Dioxide Anion Gap BUN Creatinine Estimated GFR POC Glucose 233 H 242 H 254 H Random Glucose Calcium Phosphorus Magnesium Total Bilirubin AST ALT Alkaline Phosphatase Total Protein Albumin TSH Free T4 06/30/18 06/30/18 06/30/18 07:33 07:56 07:56 WBC 5.3 RBC 2.82 L Hgb 7.8 L Hct 25.7 L MCV 91.0 MCH 27.7 MCHC 30.5 L RDW 23.5 H Plt Count 243 MPV 7.8 Neut % (Auto) 91.2 H Lymph % (Auto) 3.9 L [place] % (Auto) 4.8 Eos % (Auto) 0.0 Baso % (Auto) 0.1 Neut # (Auto) 4.8 Lymph # (Auto) 0.2 L [place] # (Auto) 0.3 Eos # (Auto) 0.0 Baso # (Auto) 0.0 WBC Differential . Differential Comment Auto diff final Sodium 140 Potassium 4.9 Chloride 93 L Carbon Dioxide 39.7 H Anion Gap 7 BUN 70 H Creatinine 1.75 H Estimated GFR 39 L POC Glucose 174 H Random Glucose 156 H Calcium 8.6 Phosphorus 5.2 H Magnesium 2.5 Total Bilirubin 0.6 AST 18 ALT 26 Alkaline Phosphatase 157 H Total Protein 6.4 Albumin 3.1 L TSH 1.060 Free T4 0.85 06/30/18 06/30/18 11:21 16:05 WBC RBC Hgb Hct MCV MCH MCHC RDW Plt Count MPV Neut % (Auto) Lymph % (Auto) [place] % (Auto) Eos % (Auto) Baso % (Auto) Neut # (Auto) Lymph # (Auto) [place] # (Auto) Eos # (Auto) Baso # (Auto) WBC Differential Differential Comment Sodium Potassium Chloride Carbon Dioxide Anion Gap BUN Creatinine Estimated GFR POC Glucose 216 H 247 H Random Glucose Calcium Phosphorus Magnesium Total Bilirubin AST ALT Alkaline Phosphatase Total Protein Albumin TSH Free T4 - Procedures NONE
--- NOTE | 2018-06-30 22:55 | P.DS ---
Date of admission: 06/27/18 08:49 Primary care physician: No Primary Care Physician Brief History from admission: 62-year-old white male being admitted for shortness of breath. History is limited as the patient is very fatigued, obtained otherwise from emergency room physician and [facility] [address] facility staff. Patient was in his usual state of health until sometime in the last 12 hours when he was found lying down flat not wearing his oxygen with labored breathing. "Patient was lying flat in bed without oxygen sats @ 55%." He had a DuoNeb with climbing sats to 63-67 and he was on 4 L a minute being ventilated. Atrovent was administered about 520 am" with O2 sats fluctuating between 73 and 83. On-call PA instructed him to be sent to the hospital. 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 They state that he is supposed to be wearing 2 L minimum all the time, does not have any BiPAP or CPAP mask to wear at night. In the emergency department patient was placed on BiPAP. His ABG demonstrated elevated CO2 around 67 with a normal PO2. Chest x-ray which was obtained showed mild pulmonary edema per my independent review. Noted to have chronic anemia w/ hb at 8. Patient was given IV Lasix and Solu-Medrol as well as DuoNeb treatments. He has had multiple admissions over the last 30 days, most notably he had one where he was discharged about 12 days ago for similar reason (CHF and COPD exacerbation). Was discharged to [facility] [address] for SNF purposes. They are confident he cannot live on his own at this point. Patient has a charted history of COPD but he has a pulmonary function test from 2016 which demonstrates significant response to bronchodilators to an otherwise pattern of moderate to severe obstructive airway disease -this convincing me he has rather asthma as opposed to COPD -especially since he denies a smoking history. DS: Medications - Discharge Medications Prescriptions: levofloxacin [Levaquin] 500 mg PO DAILY #7 tab prednisone 20 mg PO BID #10 tab DS: Summary Hospital Course: 62-year-old white male being admitted for shortness of breath with acute hypercarbic and hypoxic respiratory failure. unlikely CHF as bnp is mildly elevated at 646 and CXR not as convincing for such. Shortness of breath Acute hypercarbic and hypoxic respiratory failure -likely multifactorial with acute airway compromise initially due to mechanical obstruction due to suspected undiagnosed severe sleep apnea w/ failure to wear home oxygen as well as possible asthma exacerbation/COPD - consulting pulmonology, difficult to wean from 6 to home 2 L.-Patient refused bronchoscopy Atrial fibrillation s/p ablation, Continue metoprolol, -hold digoxin due to slightly supra-therapeutic levels. may no longer need digoxin given hx of ablation, monitor HR while in-house and decide at end to dc digoxin indefinitely. - continue, Cardizem -Restarted Xarelto Chronic anticoagulation -Continue on Xarelto as at home-no procedure scheduled CKD - likely 2/2 CHF w/ preserved EF Anemia - likely chronic disease/and or iron def - continue oral iron Diabetes -continue on sliding scale coverage and Accu-Cheks before meals and at bedtime Morbid obesity -Weight loss recommended GERD -Continue on PPI Hyperlipidemia -Continue on statin Depression/anxiety -Continue on citalopram Morbid obesity - BMI 49.6 - Time Spent with Patient Total time spent providing and/or coordinating discharge services: Less than 30 minutes - Quality: VTE Deep Vein Thrombosis/Pulmonary Embolism Present on Admission: No Exam Vital signs: Vital Signs 06/29/18 23:00 06/30/18 00:00 06/30/18 01:46 Temperature Pulse Rate 73 70 Respiratory Rate 26 H 22 Blood Pressure 125/59 L 124/71 Pulse Oximetry 96 97 95 06/30/18 04:00 06/30/18 04:34 06/30/18 05:40 Temperature 97.5 F L Pulse Rate 66 76 Respiratory Rate 22 17 Blood Pressure 131/81 135/69 Pulse Oximetry 95 96 96 06/30/18 07:42 06/30/18 08:00 06/30/18 12:00 Temperature 97.4 F L 97.3 F L Pulse Rate 73 88 75 Respiratory Rate 18 19 18 Blood Pressure 124/60 124/69 Pulse Oximetry 95 92 L 91 L 06/30/18 13:37 06/30/18 16:00 06/30/18 18:59 Temperature 98.0 F Pulse Rate 67 68 77 Respiratory Rate 18 17 18 Blood Pressure 125/64 Pulse Oximetry 92 L 06/30/18 19:00 Temperature Pulse Rate Respiratory Rate Blood Pressure Pulse Oximetry 96 Intake & Output 06/30/18 06/30/18 07/01/18 06:59 18:59 06:59 Intake Total 160 / 160 Output Total 275 / 275 Balance -115 / -115 Weight 148 kg Intake: Oral 160 / 160 Output: Urine 275 / 275 Other: Date of Last Bowel Movement 06/28/18 Results Procedures completed during hospitalization: None. Labs on day of discharge: Labs from last 24 hours 06/30/18 06/30/18 06/30/18 16:05 11:21 07:56 WBC RBC Hgb Hct MCV MCH MCHC RDW Plt Count MPV Neut % (Auto) Lymph % (Auto) [place] % (Auto) Eos % (Auto) Baso % (Auto) Neut # (Auto) Lymph # (Auto) [place] # (Auto) Eos # (Auto) Baso # (Auto) WBC Differential Differential Comment Sodium 140 Potassium 4.9 Chloride 93 L Carbon Dioxide 39.7 H Anion Gap 7 BUN 70 H Creatinine 1.75 H Estimated GFR 39 L POC Glucose 247 H 216 H Random Glucose 156 H Hemoglobin A1c Calcium 8.6 Phosphorus 5.2 H Magnesium 2.5 Total Bilirubin 0.6 AST 18 ALT 26 Alkaline Phosphatase 157 H Total Protein 6.4 Albumin 3.1 L TSH 1.060 Free T4 0.85 06/30/18 06/30/18 06/30/18 07:56 07:56 07:33 WBC 5.3 RBC 2.82 L Hgb 7.8 L Hct 25.7 L MCV 91.0 MCH 27.7 MCHC 30.5 L RDW 23.5 H Plt Count 243 MPV 7.8 Neut % (Auto) 91.2 H Lymph % (Auto) 3.9 L [place] % (Auto) 4.8 Eos % (Auto) 0.0 Baso % (Auto) 0.1 Neut # (Auto) 4.8 Lymph # (Auto) 0.2 L [place] # (Auto) 0.3 Eos # (Auto) 0.0 Baso # (Auto) 0.0 WBC Differential . Differential Comment Auto diff final Sodium Potassium Chloride Carbon Dioxide Anion Gap BUN Creatinine Estimated GFR POC Glucose 174 H Random Glucose Hemoglobin A1c 5.0 Calcium Phosphorus Magnesium Total Bilirubin AST ALT Alkaline Phosphatase Total Protein Albumin TSH Free T4 06/30/18 02:52 WBC RBC Hgb Hct MCV MCH MCHC RDW Plt Count MPV Neut % (Auto) Lymph % (Auto) [place] % (Auto) Eos % (Auto) Baso % (Auto) Neut # (Auto) Lymph # (Auto) [place] # (Auto) Eos # (Auto) Baso # (Auto) WBC Differential Differential Comment Sodium Potassium Chloride Carbon Dioxide Anion Gap BUN Creatinine Estimated GFR POC Glucose 254 H Random Glucose Hemoglobin A1c Calcium Phosphorus Magnesium Total Bilirubin AST ALT Alkaline Phosphatase Total Protein Albumin TSH Free T4 - Impressions ITS Impressions Chest X-Ray 06/27/18 06:30 CONCLUSION: Slightly improved lung exam. Findings are compatible with congestive heart failure and pulmonary edema versus volume overload from patient's renal disease. Discharge Plan - Discharge Disposition Patient Disposition: 03 Discharge to SNF - Discharge Condition Condition: Good - Discharge Order Discharge Orders: Discharge Order (Routine); Ordered 06/30/18 Ordered By: Ebenezer Liz - Discharge Details Anticipated Discharge Date: 06/30/18 - Physicians Team Primary Care Provider: Primary Care Chucho,Aria Attending Provider: Ebenezer Liz Other Providers: [employer] ; Di Carmona MD ; Dereck Clark MD ; [facility],[place]
== END 2018-06-30 19:13 ==
LOC: NEPE 06:09 → NEDA 06:09 → HIMC 11:05 → N07 06-30 04:50
PROVIDERS: ADMIT Hospitalist; ATTEND Hospitalist

== ENCOUNTER 2018-07-06 20:26 | Inpatient (IN) ==
[2018-07-06 21:19] LABS: Baso % (Auto) 0.1 % (0.0-2.0); Eos # (Auto) 0.1 th/mm3 (0.0-0.4); Eos % (Auto) 0.7 % (0.0-4.0); Hematocrit 32.4 % (39.0-51.0); Lymph # (Auto) 3.5 th/mm3 (1.0-4.8); Lymph % (Auto) 19.3 % (9.0-44.0); Mean Corpuscular Hemoglobin 26.9 pg (27.0-34.0); Mean Platelet Volume 9.1 fL (7.0-11.0); Mono # (Auto) 1.1 th/mm3 (0.0-0.9); Mono % (Auto) 5.8 % (0.0-8.0); Neut # (Auto) 13.4 th/mm3 (1.8-7.7); Neut % (Auto) 74.1 % (16.0-70.0); Platelet Count 218 th/mm3 (150-450); Red Blood Count 3.34 mil/mm3 (4.50-5.90); Red Cell Distribution Width 21.4 % (11.6-17.2); White Blood Count 18.1 th/mm3 (4.0-11.0)
[2018-07-06 21:21] LABS: Mean Corpuscular HGB Conc 27.7 % (32.0-36.0)
[2018-07-06 21:34] LABS: ABG PCO2 71 mmHg (38-42); ABG PO2 132 mmHg (61-120)
--- NOTE | 2018-07-06 21:39 | ED ---
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 When the staff went in to check on him he was found to be slumped over. At that point he was still breathing, however a few minutes later he lost his pulse. CPR was started. Ambulance services arrived at the patient's bedside at approximately 7:55 PM. The patient was noted to be in asystole. An interosseous access was placed in the right velarde. The patient was intubated with a 7-1/2 endotracheal tube. ACLS protocol was started and epinephrine was given in total 5 doses prior to arrival. The patient intermittently appeared to have a sinus tachycardia with a wide complex during the resuscitative process, however he never had a return of pulse that was palpable. The patient was then quickly go back into asystole after a minute of appearing to be in sinus tachycardia. The patient was presumed to have PEA on each occasion with this occurred prior to arrival. The patient received 150 mEq of bicarbonate in total prior to arrival. On arrival, the patient is noted to have what appears to be PEA as he has no palpable pulse or blood pressure with a sinus tachycardia on the monitor. ACLS was continued. Chest compressions were provided. Additional epinephrine was administered every 3-5 minutes. The patient's history is obtained from reviewing the electronic medical record. Related Data Home Medications Medication Instructions Recorded Confirmed albuterol sulfate [Ventolin HFA] 1 puff INHALATION Q4HR PRN 05/22/18 07/06/18 atorvastatin 40 mg PO HS 05/22/18 07/06/18 budesonide-formoterol [Symbicort] 2 puff INHALATION BID 05/22/18 07/06/18 calcium acetate 667 mg PO TID 05/22/18 07/06/18 digoxin 0.25 mg PO DAILY 05/22/18 07/06/18 diltiazem HCl [Cardizem LA] 240 mg PO DAILY 05/22/18 07/06/18 ipratropium bromide [Atrovent HFA] 1 puff INHALATION Q6HR PRN 05/22/18 07/06/18 metoprolol tartrate 100 mg PO BID 05/22/18 07/06/18 omeprazole 20 mg PO DAILY 05/22/18 07/06/18 potassium chloride [Klor-Con] 1 packet PO DAILY 05/22/18 07/06/18 rivaroxaban 10 mg PO DAILY 05/22/18 07/06/18 acetaminophen [Tylenol] 650 mg PO Q4H PRN 06/01/18 07/06/18 insulin aspart U-100 [Novolog 2 - 12 unit SUB-Q ACHS 06/01/18 07/06/18 Flexpen U-100 Insulin] bisacodyl [Dulcolax (bisacodyl)] 10 mg ME DAILY PRN 06/17/18 07/06/18 ferrous sulfate 325 mg PO BID 06/17/18 07/06/18 furosemide 40 mg IV DAILY 06/17/18 07/06/18 furosemide [Lasix] 40 mg PO DAILY 06/17/18 07/06/18 magnesium citrate [Citroma] 30 ml PO DAILY PRN 06/17/18 07/06/18 magnesium hydroxide [Milk of 30 ml PO DAILY PRN 06/17/18 07/06/18 Magnesia] melatonin 6 mg PO HS PRN 06/17/18 07/06/18 methylprednisolone sod suc(PF) 125 mg IM QAM 06/17/18 07/06/18 [Solu-Medrol (PF)] multivitamin with minerals 1 tab PO DAILY 06/17/18 07/06/18 torsemide 20 mg PO BID 06/17/18 07/06/18 escitalopram oxalate 10 mg PO DAILY 06/27/18 07/06/18 Previous Rx's Medication Instructions Recorded bumetanide 1 mg PO BID #0 tab 05/26/18 tamsulosin 0.4 mg PO DAILY cap 05/26/18 albuterol sulfate 1.25 mg INHALATION Q4-6H PRN 30 06/09/18 Days ml aspirin 81 mg PO DAILY tab 06/15/18 levofloxacin [Levaquin] 500 mg PO DAILY #7 tab 06/30/18 prednisone 20 mg PO BID #10 tab 06/30/18 Allergies Allergy/AdvReac Type Severity Reaction Status Date / Time No Known Allergies Allergy Verified 06/17/18 17:22 Review of Systems ROS Unobtainable ROS Unobtainable: unobtainable due to endotracheal tube [facility] Medical History Medical History Hyperlipidemia (Acute) Hypertension (Acute) DENIS (obstructive sleep apnea) (Acute) COPD (chronic obstructive pulmonary disease) (Acute) Anemia (Acute) Atrial fibrillation (Acute) BPH (benign prostatic hyperplasia) (Acute) CHF (congestive heart failure) (Acute) Diabetes mellitus (Acute) GERD (gastroesophageal reflux disease) (Acute) Generalized edema (Acute) Generalized weakness (Acute) History of alcohol abuse (Acute) Insomnia (Acute) Morbid obesity (Acute) Surgical History Surgical History History of surgery on arm (Acute) Hx of tonsillectomy (Acute) H/O cardiac radiofrequency ablation (Acute) History of appendectomy (Acute) Family History Family History Father Diabetes mellitus Hypertension Mother Diabetes mellitus Social History Social History Substance History: No History of Abuse Second Hand Smoke Exposure: Yes Smoking Status: Unknown if ever smoked How Often Do You Have a Drink Containing Alcohol: Never Hx Recent Travel: No Recent Travel in [facility] within the Last 8 Weeks: No Recent Out of Country Travel within the Last 8 Weeks: No Exam Narrative Exam Narrative: General: The patient is a well-developed obese male, who arrives with ACLS protocol in progress, chest compressions being provided, being bagged to an endotracheal tube. Patient has no spontaneous respiratory effort noted. Head and Neck exam: Head is normocephalic atraumatic. Eyes: extraocular motion testing is unable to be accomplished as the patient arrives unresponsive, pupils are dilated and sluggish to react to light bilaterally. Pupils are equal. Nose: Midline septum with pink mucous membranes Mouth: Dentition unremarkable. Moist mucus membranes. Posterior oropharynx is not erythematous. No tonsillar hypertrophy. Uvula midline. Airway patent. Neck: No palpable lymphadenopathy. No nuchal rigidity. No thyromegaly. Cardiovascular: No cardiac activity is auscultated. Lungs: Equal breath sounds bilaterally being assisted with with bag valve to endotracheal tube. No spontaneous respiratory effort is noted. No wheezes, rhonchi, or rales. Abdomen: Soft, without tenderness to palpation in all 4 quadrants of the abdomen. No guarding, rebound, or rigidity. The patient is noted to have ecchymosis along the lower aspects of the abdomen bilaterally. According to the record the patient is anticoagulated on Xarelto. Extremities: No clubbing or cyanosis. The patient does however have brawny edema with venous stasis changes of bilateral lower extremities. No palpable distal pulses. Neurologic Exam: The patient arrives with a GCS of 3. Eyes 1. Motor 1. Verbal- 1. Skin Exam: No rash noted. Intact skin that is warm and dry. Procedures Central Line Placement Right Femoral: Time Out Performed: No Patient Placed on Monitor/Pulse Ox: Yes MD Prep: other (This was an emergent central line due to the fact that the patient had poor vascular access otherwise, I had a gown, mask and gloves on , however a formal sterile prep was not able to be done.) Central Line Prep: Chlorhexidine scrub Local anesthesia used: lidocaine 1% Amount of anesthesia used (mL): 2 Ultrasound Used for Placement: Yes Central Line Lumen Inserted: triple Post Procedure: sutured in place, good blood return, all ports aspirated, flushed, capped and sterile dressing applied Patient Tolerated Procedure: well Complications: hematoma at puncture site Ultrasound POC Ultrasound Procedure: A cardiac ultrasound was done during the process of attempted resuscitation during cardiopulmonary arrest. The patient did have a return of cardiac activity noted on ultrasound. Patient's blood pressure continued to be quite low in the 50s-60s systolic. The patient was started on dopamine. Course Consultations Consultation #1: The patient's case including history, pertinent physical examination findings, and laboratory studies were discussed with Dr. Rivera. It was agreed that the patient would be admitted to the veterinary parasitologist's service. Consultation #2: A STEMI alert was called on this patient after an EKG revealed ST segment elevation in the inferior leads with reciprocal changes in lead I and aVL at 10:18 PM. The patient's case including history, pertinent physical examination findings, and laboratory studies were discussed with Dr. Patrick when I was connected to him at 10:24 PM. It was agreed that the patient would be admitted to the veterinary parasitologist service. He expressed concern that the patient has no neurologic response noted on initial evaluation after resuscitation. I did explain that the patient has reactive pupils. In spite of this and the fact that the patient continues to have no neurologic response and is not on any sedation, he is concerned about taking the patient to the cardiac catheterization lab as he reports that he is concerned that he will code in the Wave Soldering Machine Operator. He was made aware that the patient had been on Rivaroxaban. He recommended that the patient be given an aspirin through the NG tube. He recommended that the patient receive Integrilin and heparin. I did discuss this further with Dr. Rivera who is made aware and will be ordering these medications per Dr. Casanova's recommendation. He also requested that the patient have a repeat EKG done 1 hour after these medications are started. He would like the EKG called to him. Initial Documented Vital Signs Respiratory Rate 20 07/06/18 20:55 Pulse Oximetry 99 07/06/18 20:55 Last Documented Vital Signs Temperature 97.9 F 07/07/18 12:00 Pulse Rate 76 07/07/18 12:00 Respiratory Rate 20 07/07/18 12:00 Blood Pressure 105/57 L 07/07/18 12:00 Pulse Oximetry 99 07/07/18 12:00 Critical Care Time Critical Care Time: Yes Total Critical Care Time: 41 Attestation: Aggregate critical care time was 41 minutes. Time to perform other separately billable procedures was not included in the critical care time. My time did not include minutes spent treating any other patients simultaneously or on activities that did not directly contribute to the patient's treatment. The services I provided to this patient were to treat and/or prevent clinically significant deterioration that could result in: Recurrent cardiopulmonary arrest, versus hypoxemia from fluid overload, versus hypoxic brain injury I provided critical care services requiring my management, as noted below: Chart data review, documentation time, medication orders and management, vital sign assessments/reviewing monitor data, ordering and reviewing lab tests, ordering and interpreting/reviewing x-rays and diagnostic studies, care of the patient and discussion of the patient with the admitting physicians. Medical Decision Making MDM Narrative Medical decision making narrative: During the course of the patient's emergency department visit, the patient was placed on a cardiac nurse with oximetry and frequent blood pressure monitoring. The patient had multiple attempts at IV access. The patient did have an intraosseous access through which medications were being administered for resuscitation and ACLS medications. The patient was initially provided epinephrine every 3-5 minutes 1 mg IV per ACLS protocol. The patient was given calcium 1 g IV for her reported wide- complex sinus tachycardia prior to arrival. The patient had a return of spontaneous circulation according to ultrasound cardiac activity and blood pressure, however the blood pressure was low. The patient was placed on normal saline on a pressure bag 1 L wide open. The patient had a central line placed by me in the right femoral vein. The patient was started on dopamine. Intermittently, the patient continued to have loss of pulse with drop in blood pressure. CPR was continued, chest compressions were intermittently provided when the patient lost pulse. The patient's dopamine was maxed out. Levophed was started for blood pressure support. A call was placed out to the veterinary parasitologist regarding this patient's case. An i-STAT with creatinine was ordered along with additional blood test. The patient required maxing out on levo fed to maintain his blood pressure. The patient's blood pressure was in the 80s. The patient's i-STAT revealed a sodium of 139, potassium 4.8, chloride 96, BUN 42, glucose 336, hemoglobin 10.2 , creatinine 1.4. I spoke to Dr. Rivera the veterinary parasitologist who accepted the patient for [facility] [place] [place] admission. As the patient is quite unstable and had a prolonged cardiopulmonary arrest and concern that the patient's prognosis is poor. The patient's son arrived in the hospital and I discussed the patient's case further with him. After discussing the course of events prior to arrival and in the emergency department , the patient's son decided to make the patient DNR if he develops cardiopulmonary arrest again. After the patient was finally able to be stabilized, an EKG was obtained and revealed an inferior ST segment elevation infarction. A STEMI alert was called. I spoke to Dr. Patrick, the health care marketing manager traffic control operator for STEMI's. As the patient's course has been tenuous he requested that the STEMI alert be canceled and that the patient be medically managed. I did communicate this to Dr. Rivera. The patient's results were discussed with the patient's son, including the plan of care. I explained that further testing and/ or monitoring is indicated based on the patient's history, examination, and/ or laboratory findings. Therefore, I recommended admission for additional evaluation. The patient's son expressed understanding and was agreeable with this plan. The patient was admitted to the hospital in critical condition and sent to a bed under the care of the veterinary parasitologist's service. Medical Screen Exam Complete: Yes Emergency Medical Condition: Yes Differential Diagnosis Differential Diagnosis: Acute GA, versus cardiac arrhythmia, versus respiratory failure from COPD exacerbation, versus congestive heart failure Medical Records Medical records reviewed: Yes I reviewed the patient's medical records. Lab Data Lab results reviewed: Yes I reviewed the patient's lab results. Result diagrams: 07/07/18 04:50 07/07/18 04:50 Lab Results 07/06/18 07/06/18 07/06/18 Range/Units 20:40 20:40 20:40 WBC 18.1 H (4.0-11.0) th/mm3 RBC 3.34 L (4.50-5.90) mil/mm3 Hgb 9.0 L (13.0-17.0) gm/dL POC Hgb (Calc) (13.0-17.0) g/dL Hct 32.4 L (39.0-51.0) % POC Hct (39-51.0) % MCV 97.0 (80.0-100.0) fL MCH 26.9 L (27.0-34.0) pg MCHC 27.7 L (32.0-36.0) % RDW 21.4 H (11.6-17.2) % Plt Count 218 (150-450) th/mm3 MPV 9.1 (7.0-11.0) fL Prelim Diff (Auto) Slide review pending Neut % (Auto) 74.1 H (16.0-70.0) % Lymph % (Auto) 19.3 (9.0-44.0) % [place] % (Auto) 5.8 (0.0-8.0) % Eos % (Auto) 0.7 (0.0-4.0) % Baso % (Auto) 0.1 (0.0-2.0) % Neut # (Auto) 13.4 H (1.8-7.7) th/mm3 Lymph # (Auto) 3.5 (1.0-4.8) th/mm3 [place] # (Auto) 1.1 H (0.0-0.9) th/mm3 Eos # (Auto) 0.1 (0.0-0.4) th/mm3 Baso # (Auto) 0.0 (0.0-0.2) th/mm3 WBC Differential Manual diff final Seg Neuts % (Manual) 61 (16-70) % Band Neuts % (Manual) 9 H (0-6) % Lymphocytes % (Manual) 19 (9-44) % Monocytes % (Manual) 2 (0-8) % Eosinophils % (Manual) 1 (0-4) % Metamyelocytes % (Man) 4 H (0-1) % Myelocytes % (Man) 2 H (0-0) % Promyelocytes % (Man) 2 H (0-0) % Abs Neuts (Manual) 14.1 H (1.8-7.7) th/mm3 Nucleated RBCs/100 WBC 1 H (0-0) /100 WBC Differential Comment . Platelet Estimate Normal (Normal) Platelet Morphology Normal (Normal) Ovalocytes 1+ H (None) Keratocytes Occ H (None) PT (9.8-11.6) sec INR Ratio APTT (24.3-30.1) sec Puncture Site Patient Temperature O2 Saturation (90-100) % ABG pH (7.380-7.420) ABG pCO2 (38-42) mmHg ABG pO2 (61-120) mmHg ABG HCO3 (22-26) mmol/L ABG O2 Content (12.0-20.0) Vol % ABG Base Excess (-2-2) mmol/L ABG Methemoglobin (0-2) % Daryn Test Hemoglobin (12.0-16.0) G/DL Carboxyhemoglobin (0-4) % O2 Delivery Device Vent Setting Inspired O2 % Critical Value POC Sodium (137-144) mmol/L Sodium (136-145) meq/L POC Potassium (3.6-5.0) mmol/L Potassium (3.5-5.1) meq/L POC Chloride (102-111) mmol/L Chloride (98-107) meq/L Carbon Dioxide (21.0-32.0) meq/L Anion Gap (5-15) meq/L POC BUN (5-21) mg/dL BUN (7-18) mg/dL Creatinine (0.60-1.30) mg/dL POC Creatinine (0.6-1.3) mg/dL Estimated GFR (>89) mL/min POC Glucose (68-110) mg/dL Random Glucose (74-106) mg/dL Calcium (8.5-10.1) mg/dL Phosphorus (2.5-4.9) mg/dL Magnesium (1.5-2.5) mg/dL Total Bilirubin (0.2-1.0) mg/dL AST (15-37) U/L ALT (12-78) U/L Alkaline Phosphatase (45-117) U/L Total Creatine Kinase 120 (39-308) U/L CK-MB (CK-2) 6.2 H (0.5-3.6) ng/mL Troponin I 0.38 H (0.02-0.05) ng/mL B-Natriuretic Peptide (0-100) pg/mL Total Protein (6.4-8.2) g/dL Albumin (3.4-5.0) g/dL Nasal Screen MRSA (PCR) (Negative) Blood Type Antibody Screen 07/06/18 07/06/18 07/06/18 Range/Units 20:40 20:40 20:40 WBC (4.0-11.0) th/mm3 RBC (4.50-5.90) mil/mm3 Hgb (13.0-17.0) gm/dL POC Hgb (Calc) (13.0-17.0) g/dL Hct (39.0-51.0) % POC Hct (39-51.0) % MCV (80.0-100.0) fL MCH (27.0-34.0) pg MCHC (32.0-36.0) % RDW (11.6-17.2) % Plt Count (150-450) th/mm3 MPV (7.0-11.0) fL Prelim Diff (Auto) Neut % (Auto) (16.0-70.0) % Lymph % (Auto) (9.0-44.0) % [place] % (Auto) (0.0-8.0) % Eos % (Auto) (0.0-4.0) % Baso % (Auto) (0.0-2.0) % Neut # (Auto) (1.8-7.7) th/mm3 Lymph # (Auto) (1.0-4.8) th/mm3 [place] # (Auto) (0.0-0.9) th/mm3 Eos # (Auto) (0.0-0.4) th/mm3 Baso # (Auto) (0.0-0.2) th/mm3 WBC Differential Seg Neuts % (Manual) (16-70) % Band Neuts % (Manual) (0-6) % Lymphocytes % (Manual) (9-44) % Monocytes % (Manual) (0-8) % Eosinophils % (Manual) (0-4) % Metamyelocytes % (Man) (0-1) % Myelocytes % (Man) (0-0) % Promyelocytes % (Man) (0-0) % Abs Neuts (Manual) (1.8-7.7) th/mm3 Nucleated RBCs/100 WBC (0-0) /100 WBC Differential Comment Platelet Estimate (Normal) Platelet Morphology (Normal) Ovalocytes (None) Keratocytes (None) PT (9.8-11.6) sec INR Ratio APTT (24.3-30.1) sec Puncture Site Patient Temperature O2 Saturation (90-100) % ABG pH (7.380-7.420) ABG pCO2 (38-42) mmHg ABG pO2 (61-120) mmHg ABG HCO3 (22-26) mmol/L ABG O2 Content (12.0-20.0) Vol % ABG Base Excess (-2-2) mmol/L ABG Methemoglobin (0-2) % Daryn Test Hemoglobin (12.0-16.0) G/DL Carboxyhemoglobin (0-4) % O2 Delivery Device Vent Setting Inspired O2 % Critical Value POC Sodium (137-144) mmol/L Sodium 142 (136-145) meq/L POC Potassium (3.6-5.0) mmol/L Potassium 5.0 (3.5-5.1) meq/L POC Chloride (102-111) mmol/L Chloride 98 (98-107) meq/L Carbon Dioxide 24.1 (21.0-32.0) meq/L Anion Gap 20 H (5-15) meq/L POC BUN (5-21) mg/dL BUN 42 H (7-18) mg/dL Creatinine 1.76 H (0.60-1.30) mg/dL POC Creatinine (0.6-1.3) mg/dL Estimated GFR 39 L (>89) mL/min POC Glucose (68-110) mg/dL Random Glucose 341 H (74-106) mg/dL Calcium 9.5 (8.5-10.1) mg/dL Phosphorus (2.5-4.9) mg/dL Magnesium (1.5-2.5) mg/dL Total Bilirubin 0.5 (0.2-1.0) mg/dL AST 32 (15-37) U/L ALT 43 (12-78) U/L Alkaline Phosphatase 153 H (45-117) U/L Total Creatine Kinase (39-308) U/L CK-MB (CK-2) (0.5-3.6) ng/mL Troponin I (0.02-0.05) ng/mL B-Natriuretic Peptide 796 H (0-100) pg/mL Total Protein 5.4 L D (6.4-8.2) g/dL Albumin 2.6 L (3.4-5.0) g/dL Nasal Screen MRSA (PCR) (Negative) Blood Type O Positive Antibody Screen Negative 07/06/18 07/06/18 07/06/18 Range/Units 20:41 20:41 21:00 WBC (4.0-11.0) th/mm3 RBC (4.50-5.90) mil/mm3 Hgb (13.0-17.0) gm/dL POC Hgb (Calc) 10.2 L (13.0-17.0) g/dL Hct (39.0-51.0) % POC Hct 30.0 L (39-51.0) % MCV (80.0-100.0) fL MCH (27.0-34.0) pg MCHC (32.0-36.0) % RDW (11.6-17.2) % Plt Count (150-450) th/mm3 MPV (7.0-11.0) fL Prelim Diff (Auto) Neut % (Auto) (16.0-70.0) % Lymph % (Auto) (9.0-44.0) % [place] % (Auto) (0.0-8.0) % Eos % (Auto) (0.0-4.0) % Baso % (Auto) (0.0-2.0) % Neut # (Auto) (1.8-7.7) th/mm3 Lymph # (Auto) (1.0-4.8) th/mm3 [place] # (Auto) (0.0-0.9) th/mm3 Eos # (Auto) (0.0-0.4) th/mm3 Baso # (Auto) (0.0-0.2) th/mm3 WBC Differential Seg Neuts % (Manual) (16-70) % Band Neuts % (Manual) (0-6) % Lymphocytes % (Manual) (9-44) % Monocytes % (Manual) (0-8) % Eosinophils % (Manual) (0-4) % Metamyelocytes % (Man) (0-1) % Myelocytes % (Man) (0-0) % Promyelocytes % (Man) (0-0) % Abs Neuts (Manual) (1.8-7.7) th/mm3 Nucleated RBCs/100 WBC (0-0) /100 WBC Differential Comment Platelet Estimate (Normal) Platelet Morphology (Normal) Ovalocytes (None) Keratocytes (None) PT 13.9 H (9.8-11.6) sec INR 1.4 Ratio APTT 25.2 (24.3-30.1) sec Puncture Site Right radial Patient Temperature 98.6 O2 Saturation 95 (90-100) % ABG pH 7.11 L* (7.380-7.420) ABG pCO2 71 H* (38-42) mmHg ABG pO2 132 H (61-120) mmHg ABG HCO3 21 L (22-26) mmol/L ABG O2 Content 12.6 (12.0-20.0) Vol % ABG Base Excess -7.0 L (-2-2) mmol/L ABG Methemoglobin 0.7 (0-2) % Daryn Test Present Hemoglobin 9.3 L (12.0-16.0) G/DL Carboxyhemoglobin 2.0 (0-4) % O2 Delivery Device Ventilator Vent Setting Inspired O2 100 % Critical Value Yes POC Sodium 139 (137-144) mmol/L Sodium (136-145) meq/L POC Potassium 4.8 (3.6-5.0) mmol/L Potassium (3.5-5.1) meq/L POC Chloride 96 L (102-111) mmol/L Chloride (98-107) meq/L Carbon Dioxide (21.0-32.0) meq/L Anion Gap (5-15) meq/L POC BUN 42 H (5-21) mg/dL BUN (7-18) mg/dL Creatinine (0.60-1.30) mg/dL POC Creatinine 1.4 H (0.6-1.3) mg/dL Estimated GFR (>89) mL/min POC Glucose 336 H (68-110) mg/dL Random Glucose (74-106) mg/dL Calcium (8.5-10.1) mg/dL Phosphorus (2.5-4.9) mg/dL Magnesium (1.5-2.5) mg/dL Total Bilirubin (0.2-1.0) mg/dL AST (15-37) U/L ALT (12-78) U/L Alkaline Phosphatase (45-117) U/L Total Creatine Kinase (39-308) U/L CK-MB (CK-2) (0.5-3.6) ng/mL Troponin I (0.02-0.05) ng/mL B-Natriuretic Peptide (0-100) pg/mL Total Protein (6.4-8.2) g/dL Albumin (3.4-5.0) g/dL Nasal Screen MRSA (PCR) (Negative) Blood Type Antibody Screen 07/06/18 07/07/18 07/07/18 Range/Units 22:50 01:15 04:40 WBC (4.0-11.0) th/mm3 RBC (4.50-5.90) mil/mm3 Hgb (13.0-17.0) gm/dL POC Hgb (Calc) (13.0-17.0) g/dL Hct (39.0-51.0) % POC Hct (39-51.0) % MCV (80.0-100.0) fL MCH (27.0-34.0) pg MCHC (32.0-36.0) % RDW (11.6-17.2) % Plt Count (150-450) th/mm3 MPV (7.0-11.0) fL Prelim Diff (Auto) Neut % (Auto) (16.0-70.0) % Lymph % (Auto) (9.0-44.0) % [place] % (Auto) (0.0-8.0) % Eos % (Auto) (0.0-4.0) % Baso % (Auto) (0.0-2.0) % Neut # (Auto) (1.8-7.7) th/mm3 Lymph # (Auto) (1.0-4.8) th/mm3 [place] # (Auto) (0.0-0.9) th/mm3 Eos # (Auto) (0.0-0.4) th/mm3 Baso # (Auto) (0.0-0.2) th/mm3 WBC Differential Seg Neuts % (Manual) (16-70) % Band Neuts % (Manual) (0-6) % Lymphocytes % (Manual) (9-44) % Monocytes % (Manual) (0-8) % Eosinophils % (Manual) (0-4) % Metamyelocytes % (Man) (0-1) % Myelocytes % (Man) (0-0) % Promyelocytes % (Man) (0-0) % Abs Neuts (Manual) (1.8-7.7) th/mm3 Nucleated RBCs/100 WBC (0-0) /100 WBC Differential Comment Platelet Estimate (Normal) Platelet Morphology (Normal) Ovalocytes (None) Keratocytes (None) PT 13.2 H (9.8-11.6) sec INR 1.3 Ratio APTT 23.2 L (24.3-30.1) sec Puncture Site Patient Temperature O2 Saturation (90-100) % ABG pH (7.380-7.420) ABG pCO2 (38-42) mmHg ABG pO2 (61-120) mmHg ABG HCO3 (22-26) mmol/L ABG O2 Content (12.0-20.0) Vol % ABG Base Excess (-2-2) mmol/L ABG Methemoglobin (0-2) % Daryn Test Hemoglobin (12.0-16.0) G/DL Carboxyhemoglobin (0-4) % O2 Delivery Device Vent Setting Inspired O2 % Critical Value POC Sodium (137-144) mmol/L Sodium (136-145) meq/L POC Potassium (3.6-5.0) mmol/L Potassium (3.5-5.1) meq/L POC Chloride (102-111) mmol/L Chloride (98-107) meq/L Carbon Dioxide (21.0-32.0) meq/L Anion Gap (5-15) meq/L POC BUN (5-21) mg/dL BUN (7-18) mg/dL Creatinine (0.60-1.30) mg/dL POC Creatinine (0.6-1.3) mg/dL Estimated GFR (>89) mL/min POC Glucose 294 H (68-110) mg/dL Random Glucose (74-106) mg/dL Calcium (8.5-10.1) mg/dL Phosphorus (2.5-4.9) mg/dL Magnesium (1.5-2.5) mg/dL Total Bilirubin (0.2-1.0) mg/dL AST (15-37) U/L ALT (12-78) U/L Alkaline Phosphatase (45-117) U/L Total Creatine Kinase (39-308) U/L CK-MB (CK-2) (0.5-3.6) ng/mL Troponin I (0.02-0.05) ng/mL B-Natriuretic Peptide (0-100) pg/mL Total Protein (6.4-8.2) g/dL Albumin (3.4-5.0) g/dL Nasal Screen MRSA (PCR) Not detected (Negative) Blood Type Antibody Screen 07/07/18 07/07/18 07/07/18 Range/Units 04:50 04:50 04:50 WBC 39.9 H D (4.0-11.0) th/mm3 RBC 3.54 L (4.50-5.90) mil/mm3 Hgb 9.3 L (13.0-17.0) gm/dL POC Hgb (Calc) (13.0-17.0) g/dL Hct 31.3 L (39.0-51.0) % POC Hct (39-51.0) % MCV 88.5 D (80.0-100.0) fL MCH 26.4 L (27.0-34.0) pg MCHC 29.8 L (32.0-36.0) % RDW 21.3 H (11.6-17.2) % Plt Count 291 D (150-450) th/mm3 MPV 7.9 (7.0-11.0) fL Prelim Diff (Auto) Slide review pending Neut % (Auto) 94.8 H (16.0-70.0) % Lymph % (Auto) 0.8 L (9.0-44.0) % [place] % (Auto) 4.3 (0.0-8.0) % Eos % (Auto) 0.0 (0.0-4.0) % Baso % (Auto) 0.1 (0.0-2.0) % Neut # (Auto) 37.9 H (1.8-7.7) th/mm3 Lymph # (Auto) 0.3 L (1.0-4.8) th/mm3 [place] # (Auto) 1.7 H (0.0-0.9) th/mm3 Eos # (Auto) 0.0 (0.0-0.4) th/mm3 Baso # (Auto) 0.0 (0.0-0.2) th/mm3 WBC Differential Manual diff final Seg Neuts % (Manual) 81 H (16-70) % Band Neuts % (Manual) 13 H (0-6) % Lymphocytes % (Manual) 2 L (9-44) % Monocytes % (Manual) 4 (0-8) % Eosinophils % (Manual) (0-4) % Metamyelocytes % (Man) (0-1) % Myelocytes % (Man) (0-0) % Promyelocytes % (Man) (0-0) % Abs Neuts (Manual) 37.5 H (1.8-7.7) th/mm3 Nucleated RBCs/100 WBC 1 H (0-0) /100 WBC Differential Comment . Platelet Estimate Normal (Normal) Platelet Morphology Normal (Normal) Ovalocytes 1+ H (None) Keratocytes (None) PT 14.3 H (9.8-11.6) sec INR 1.4 Ratio APTT 30.3 H D (24.3-30.1) sec Puncture Site Patient Temperature O2 Saturation (90-100) % ABG pH (7.380-7.420) ABG pCO2 (38-42) mmHg ABG pO2 (61-120) mmHg ABG HCO3 (22-26) mmol/L ABG O2 Content (12.0-20.0) Vol % ABG Base Excess (-2-2) mmol/L ABG Methemoglobin (0-2) % Daryn Test Hemoglobin (12.0-16.0) G/DL Carboxyhemoglobin (0-4) % O2 Delivery Device Vent Setting Inspired O2 % Critical Value POC Sodium (137-144) mmol/L Sodium 140 (136-145) meq/L POC Potassium (3.6-5.0) mmol/L Potassium 5.4 H (3.5-5.1) meq/L POC Chloride (102-111) mmol/L Chloride 99 (98-107) meq/L Carbon Dioxide 34.1 H D (21.0-32.0) meq/L Anion Gap 7 (5-15) meq/L POC BUN (5-21) mg/dL BUN 53 H (7-18) mg/dL Creatinine 1.82 H (0.60-1.30) mg/dL POC Creatinine (0.6-1.3) mg/dL Estimated GFR 38 L (>89) mL/min POC Glucose (68-110) mg/dL Random Glucose 220 H D (74-106) mg/dL Calcium 8.0 L D (8.5-10.1) mg/dL Phosphorus 5.1 H (2.5-4.9) mg/dL Magnesium 2.1 (1.5-2.5) mg/dL Total Bilirubin 0.9 (0.2-1.0) mg/dL AST 409 H (15-37) U/L ALT 66 (12-78) U/L Alkaline Phosphatase 145 H (45-117) U/L Total Creatine Kinase (39-308) U/L CK-MB (CK-2) (0.5-3.6) ng/mL Troponin I Greater than 40.00 H* (0.02-0.05) ng/mL B-Natriuretic Peptide (0-100) pg/mL Total Protein 5.3 L (6.4-8.2) g/dL Albumin 2.7 L (3.4-5.0) g/dL Nasal Screen MRSA (PCR) (Negative) Blood Type Antibody Screen Imaging Data Radiologist's impression: Chest X-Ray 07/06/18 21:39 CONCLUSION: 1. Cardiomegaly with radiographic findings of worsening failure. 2. Bibasilar areas of consolidation/effusion. 3. Interval placement of an endotracheal tube tip appropriately positioned above the eulalia. Head CT 07/07/18 00:00 CONCLUSION: Low density throughout the brain concerning for diffuse processes such as a sequela of anoxic and/or diffuse brain swelling. The basal cisterns are nearly completely effaced. Sulci are completely effaced. . ECG Data Attestation: I personally reviewed and interpreted this ECG as follows: Interpretation: The patient's EKG revealed ST segment elevation in the inferior leads with ST depression in leads I and aVL consistent with a STEMI. Discharge Plan Discharge Disposition Patient Disposition: 30 Still Patient Discharge Condition Condition: Critical Discharge Details Diagnosis: Cardiac arrest, ST elevation (STEMI) myocardial infarction Physicians Team ED Provider: Lin Orozco Primary Care Provider: Primary Care Aria Rankin Attending Provider: Javier Rivera Other Providers: Lokesh Alfonso [employer] Discharge Interventions Interventions: ED Discharge Assessment Last Done: 07/07/18 04:52 Vital Signs Last Done: 07/07/18 12:00 Status ED Status: Left Department Discharge Information Discharge Date/Time: 07/07/18 05:00
[2018-07-06 21:53] LABS: Eosinophils 1 % (0-4); Lymphocytes 19 % (9-44); Metamyelocytes 4 % (0-1); Monocytes 2 % (0-8); Myelocytes 2 % (0-0); Promyelocyte 2 % (0-0); Tallied Nucleated RBC 1 (0-0)
[2018-07-06 21:54] LABS: Ovalocytes 1+; Platelet Estimate Normal (Normal); Platelet Morphology Normal (Normal)
[2018-07-06 21:55] LABS: Activated Partial Thrombo Time 25.2 sec (24.3-30.1); INR 1.4 Ratio; Prothrombin Time 13.9 sec (9.8-11.6)
[2018-07-06 21:55] LABS: Alanine Aminotransferase 43 U/L (12-78); Albumin 2.6 g/dL (3.4-5.0); Anion Gap 20 meq/L (5-15); Aspartate Aminotransferase 32 U/L (15-37); Blood Urea Nitrogen 42 mg/dL (7-18); Calcium 9.5 mg/dL (8.5-10.1); Carbon Dioxide 24.1 meq/L (21.0-32.0); Chloride 98 meq/L (98-107); Glomerular Filtration Rate 39 mL/min (>89); Glucose,Random 341 mg/dL (74-106); Sodium 142 meq/L (136-145)
--- NOTE | 2018-07-06 21:55 | P.HPCC ---
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 When the staff went in to check on him he was found to be slumped over. At that point he was still breathing, however a few minutes later he lost his pulse. CPR was started. Ambulance services arrived at the patient's bedside at approximately 7:55 PM. The patient was noted to be in asystole. An interosseous access was placed in the right velarde. The patient was intubated with a 7-1/2 endotracheal tube. ACLS protocol was started and epinephrine was given in total 5 doses prior to arrival. The patient intermittently appeared to have a sinus tachycardia with a wide complex during the resuscitative process, however he never had a return of pulse that was palpable. The patient was then quickly go back into asystole after a minute of appearing to be in sinus tachycardia. The patient was presumed to have PEA on each occasion with this occurred prior to arrival. The patient received 150 mEq of bicarbonate in total prior to arrival. On arrival, the patient is noted to have what appears to be PEA as he has no palpable pulse or blood pressure with a sinus tachycardia on the monitor. ACLS was continued. Chest compressions were provided. Additional epinephrine was administered every 3-5 minutes. The patient's history is obtained from reviewing the electronic medical record. After over an hour of ACLS protocol patient regained spontaneous circulation and has been admitted to critical care. The tumbling barrel painter on-call was notified and possible STEMI alert was discussed by ED attending, the tumbling barrel painter on-call. Decision was made to continue conservative management with heparin drip. The CODE STATUS was discussed by ED attending with the family at the bedside and due to prolonged resuscitation and extremely poor prognosis the DNR order was placed on the chart. Inpatient Certification: I certify that the inpatient services were ordered in accordance with Medicare regulations governing the order. This includes certification that hospital inpatient services are reasonable and necessary and in the case of services not specified as inpatient-only under 42 CFR 419.22(n), that they are appropriately provided as inpatient services in accordance to with the 2-midnight benchmark under 43 CFR 412.3(e) Review of Systems unobtainable due to endotracheal tube, unobtainable due to mental condition PMFSH - History History Provided By: Patient - Medical History Medical History: Medical History (Last Reviewed 07/06/18 @ 21:27 by Lin Orozco MD) Hyperlipidemia (Acute) Hypertension (Acute) DENIS (obstructive sleep apnea) (Acute) COPD (chronic obstructive pulmonary disease) (Acute) Anemia Atrial fibrillation BPH (benign prostatic hyperplasia) CHF (congestive heart failure) Diabetes mellitus GERD (gastroesophageal reflux disease) Generalized edema Generalized weakness History of alcohol abuse Insomnia Morbid obesity - Surgical History Surgical History: Surgical History (Last Reviewed 07/06/18 @ 21:27 by Lin Orozco MD) History of surgery on arm (Acute) Hx of tonsillectomy (Acute) H/O cardiac radiofrequency ablation (Acute) History of appendectomy (Acute) - Family History Family History: Family History (Last Reviewed 07/06/18 @ 21:27 by Lin Orozco MD) Father Diabetes mellitus Hypertension Mother Diabetes mellitus - Tobacco History Second Hand Smoke Exposure: Yes Smoking Status: Never smoker - Alcohol History How Often Do You Have a Drink Containing Alcohol: 4 or more times a week - Substance Use History Substance History: No History of Abuse - Travel History History of Recent Travel: No Medications and Allergies Active Medications: Active Medications Norepinephrine Bitartrate (Levophed-Dextrose 4 Mg/250 Ml Drip) 4 mg in 250 mls @ 7.5 mls/hr IV.SIG TITRATE PRN; Protocol PRN Reason: Per Protocol Terbutaline Sulfate (Brethine Inj) 1 mg SQ UNSCH PRN PRN Reason: For Extravasation Current Medications Acetaminophen (Tylenol) 650 mg PO Q6H PRN PRN Reason: PAIN 1-5 AND/OR FEVER >101F Al Hydroxide/Mg Hydroxide (Milk Of Efrain Liq) 30 ml PO Q12H PRN PRN Reason: Mild Constipation Albuterol (Duoneb Neb (Prn)) 1 ampul NEB Q2HR NEB PRN PRN Reason: WHEEZING Albuterol (Duoneb Neb (Delilah)) 1 ampul NEB Q4HR NEB DELILAH Last Admin: 07/06/18 23:44 Dose: 1 ampul Aspirin (Ecotrin) 81 mg PO DAILY DELILAH Atorvastatin Calcium (Lipitor) 40 mg PO HS DELILAH Bisacodyl (Dulcolax Supp) 10 mg RECTAL DAILY PRN PRN Reason: SEVERE CONSITIPATION Budesonide/Formoterol Fumarate (Symbicort 160/4.5 Mcg Inh) 2 puff INH BID [facility] Chlorhexidine Gluconate (Chlorhexidine 2% Cloth) 3 pack TOPICAL DAILY@0400 [facility] Stop: 07/12/18 03:59 Chlorhexidine Gluconate (Chlorhexidine 2% Cloth) 3 pack TOPICAL DAILY@0400 PRN PRN Reason: Extra cloth needed Stop: 07/12/18 03:59 Dextrose (D50w Vial) 50 ml IV.PUSH UNSCH PRN PRN Reason: PER HYPOGLYCEMIA PROTOCOL Digoxin (Lanoxin) 250 mcg PO DAILY [facility] Escitalopram Oxalate (Lexapro) 10 mg PO DAILY [facility] Famotidine (Pepcid Pf Inj) 10 mg IV.PUSH Q12HR [facility] Ferrous Sulfate (Ferosul) 325 mg PO BID [facility] Glucagon (Glucagon Inj) 1 mg OTHER PRN PRN PRN Reason: for Hypoglycemia Protocol Heparin Sodium (Porcine) (Heparin Inj) 5,000 units IV.PUSH UNSCH PRN PRN Reason: aPTT < 25 Norepinephrine Bitartrate (Levophed-Dextrose 4 Mg/250 Ml Drip) 4 mg in 250 mls @ 7.5 mls/hr IV.SIG TITRATE PRN; Protocol PRN Reason: Per Protocol Sodium Chloride (Ns Inj) 1,000 mls @ 84 mls/hr IV.CONT .[id number] [facility] Last Admin: 07/07/18 00:22 Dose: 84 mls/hr Heparin Sodium/Dextrose (Heparin/D5w 25,000 U/250 Ml) 25,000 unit in 250 mls @ 10 mls/hr IV.CONT TITRATE PRN; Protocol PRN Reason: Per Protocol Amiodarone HCl 450 mg/ (Dextrose) 250 mls @ 33.33 mls/hr IV.CONT TITRATE PRN; Protocol PRN Reason: Per Protocol Last Admin: 07/07/18 01:05 Dose: 1 mg/min, 33.33 mls/hr Insulin Aspart (Novolog Insulin Correctional Sugar Inj) 0 unit SQ Q6HR [facility]; Protocol Last Admin: 07/07/18 01:29 Dose: 15 unit Lactulose (Lactulose Liq) 30 ml PO DAILY PRN PRN Reason: SEVERE CONSITIPATION Methylprednisolone Sodium Succinate (Solumedrol Inj) 40 mg IV.PUSH Q6H [facility] Last Admin: 07/07/18 00:17 Dose: 40 mg Midazolam HCl (Versed Inj) 2 mg IV.PUSH Q1H PRN PRN Reason: SEDATION Morphine Sulfate (Morphine Inj) 2 mg IV.PUSH Q2H PRN PRN Reason: PAIN SCALE 6 TO 10 Multivitamins/Minerals (Theragran-M) 1 tab PO DAILY [facility] Ondansetron HCl (Zofran Inj) 4 mg IV.PUSH Q6H PRN PRN Reason: NAUSEA OR VOMITING Senna/Docusate Sodium (Coco-Colace) 1 tab PO BID [facility] Sennosides (Senokot) 17.2 mg PO Q12H PRN PRN Reason: Moderate Constipation Sodium Chloride (Ns Flush) 2 ml IV.FLUSH BID [facility] Sodium Chloride (Ns Flush) 2 ml IV.FLUSH PRN PRN PRN Reason: FLUSH AFTER USING IV ACCESS Tamsulosin HCl (Flomax) 0.4 mg PO DAILY [facility] Terbutaline Sulfate (Brethine Inj) 1 mg SQ UNSCH PRN PRN Reason: For Extravasation Allergies Allergy/AdvReac Type Severity Reaction Status Date / Time No Known Allergies Allergy Verified 06/17/18 17:22 Home Medications Medication Instructions Recorded Confirmed Type albuterol sulfate [Ventolin HFA] 1 puff INHALATION Q4HR PRN 05/22/18 07/06/18 History atorvastatin 40 mg PO HS 05/22/18 07/06/18 History budesonide-formoterol [Symbicort] 2 puff INHALATION BID 05/22/18 07/06/18 History calcium acetate 667 mg PO TID 05/22/18 07/06/18 History digoxin 0.25 mg PO DAILY 05/22/18 07/06/18 History diltiazem HCl [Cardizem LA] 240 mg PO DAILY 05/22/18 07/06/18 History ipratropium bromide [Atrovent HFA] 1 puff INHALATION Q6HR PRN 05/22/18 07/06/18 History metoprolol tartrate 100 mg PO BID 05/22/18 07/06/18 History omeprazole 20 mg PO DAILY 05/22/18 07/06/18 History potassium chloride [Klor-Con] 1 packet PO DAILY 05/22/18 07/06/18 History rivaroxaban 10 mg PO DAILY 05/22/18 07/06/18 History acetaminophen [Tylenol] 650 mg PO Q4H PRN 06/01/18 07/06/18 History insulin aspart U-100 [Novolog 2 - 12 unit SUB-Q ACHS 06/01/18 07/06/18 History Flexpen U-100 Insulin] bisacodyl [Dulcolax (bisacodyl)] 10 mg GA DAILY PRN 06/17/18 07/06/18 History ferrous sulfate 325 mg PO BID 06/17/18 07/06/18 History furosemide 40 mg IV DAILY 06/17/18 07/06/18 History furosemide [Lasix] 40 mg PO DAILY 06/17/18 07/06/18 History magnesium citrate [Citroma] 30 ml PO DAILY PRN 06/17/18 07/06/18 History magnesium hydroxide [Milk of 30 ml PO DAILY PRN 06/17/18 07/06/18 History Magnesia] melatonin 6 mg PO HS PRN 06/17/18 07/06/18 History methylprednisolone sod suc(PF) 125 mg IM QAM 06/17/18 07/06/18 History [Solu-Medrol (PF)] multivitamin with minerals 1 tab PO DAILY 06/17/18 07/06/18 History torsemide 20 mg PO BID 06/17/18 07/06/18 History escitalopram oxalate 10 mg PO DAILY 06/27/18 07/06/18 History Results - Labs CBC & Chem 7: 07/06/18 20:40 07/06/18 20:40 Labs: Short CBC 07/06/18 Range/Units 20:40 WBC 18.1 H (4.0-11.0) th/mm3 Hgb 9.0 L (13.0-17.0) gm/dL Hct 32.4 L (39.0-51.0) % Plt Count 218 (150-450) th/mm3 Cardiac Enzymes 07/06/18 Range/Units 20:40 Troponin I 0.38 H (0.02-0.05) ng/mL - Imaging Impressions Chest X-Ray 07/06/18 21:39 CONCLUSION: 1. Cardiomegaly with radiographic findings of worsening failure. 2. Bibasilar areas of consolidation/effusion. 3. Interval placement of an endotracheal tube tip appropriately positioned above the eulalia. Head CT 07/07/18 00:00 CONCLUSION: Low density throughout the brain concerning for diffuse processes such as a sequela of anoxic and/or diffuse brain swelling. The basal cisterns are nearly completely effaced. Sulci are completely effaced. . Exam Vital signs: Vital Signs 07/06/18 20:55 07/06/18 21:43 Respiratory Rate 20 Pulse Oximetry 99 95 - Constitutional severe distress, morbidly obese - Routine HEENT Exam Head: Present: atraumatic ENT: Present: mucous membranes moist Comments: Pupils are 3 mm and sluggishly reactive bilaterally Septic Shock Reassessment Septic shock perfusion: reassessment completed Caprini VTE Risk Assessment Caprini VTE Risk Assessment: Moderate/High Risk (score >= 2) Caprini Risk Assessment Model: Point Value = 1 Point Value = 2 Point Value = 3 Point Value = 5 Age 41-60 Minor surgery BMI > 25 kg/m2 Swollen legs Varicose veins or History of unexplained or recurrent spontaneous Oral contraceptives or hormone replacement Sepsis (< 1 month) Serious lung disease, including pneumonia (< 1 month) Abnormal pulmonary function Acute myocardial infarction Congestive heart failure (< 1 month) History of inflammatory bowel disease Medical patient at bed rest Age 61-74 Arthroscopic surgery Major open surgery (> 45 min) Laparoscopic surgery (> 45 min) Malignancy Confined to bed (> 72 hours) Immobilizing plaster cast Central venous access Age >= 75 History of VTE Family history of VTE Factor V Leiden Prothrombin [id number] Lupus anticoagulant Anticardiolipin antibodies Elevated serum homocysteine Heparin-induced thrombocytopenia Other congenital or acquired thrombophilia Stroke (< 1 month) Elective arthroplasty Hip, pelvis, or leg fracture Acute spinal cord injury (< 1 month) Prophylaxis Regimen: Total Risk Factor Score Risk Level Prophylaxis Regimen 0-1 Low Early ambulation 2 Moderate Order ONE of the following: *Sequential Compression Device (SCD) *Heparin 5000 units SQ BID 3-4 Higher Order ONE of the following medications: *Heparin 5000 units SQ TID *Enoxaparin/Lovenox 40 mg SQ daily (WT < 150 kg, CrCl > 30 mL/min) *Enoxaparin/Lovenox 30 mg SQ daily (WT < 150 kg, CrCl > 10-29 mL/min) *Enoxaparin/Lovenox 30 mg SQ BID (WT < 150 kg, CrCl > 30 mL/min) AND/OR *Sequential Compression Device (SCD) 5 or more Highest Order ONE of the following medications: *Heparin 5000 units SQ TID (Preferred with Epidurals) *Enoxaparin/Lovenox 40 mg SQ daily (WT < 150 kg, CrCl > 30 mL/min) *Enoxaparin/Lovenox 30 mg SQ daily (WT < 150 kg, CrCl > 10-29 mL/min) *Enoxaparin/Lovenox 30 mg SQ BID (WT < 150 kg, CrCl > 30 mL/min) AND *Sequential Compression Device (SCD) Assessment and Plan - Assessment and Plan Plan: Respiratory failure -Post cardiac arrest -Vent bundle -No weaning until neurologically improved -DuoNeb's as needed -Taper off FiO2 to keep sats above 92 Cardiac arrest -DNR per family request -Not a candidate for therapeutic hypothermia due to DNR -Series of troponins and EKG -Heparin drip -Aspirin and statins -Further management per tumbling barrel painter Altered mental status -Most likely anoxic brain damage per CT report -Palliative care consultation Hyperlipidemia -Atorvastatin Hypotension -Levophed and dopamine to keep map above 65 -IV fluid resuscitation DENIS -Continue mechanical ventilation COPD -DuoNeb scheduled and as needed -IV steroids Anemia -Monitor H&H and transfuse as needed to keep hemoglobin above 7 Atrial fibrillation -Amiodarone drip BPH -Barrientos catheter -Continue tamsulosin CHF -Hold beta-devin and ISMAEL inhibitor due to cardiogenic shock -IV diuretics when hemodynamically stable Diabetes mellitus -Insulin sliding scale GERD -IV Pepcid DVT GI prophylaxis -Teds SCDs -Heparin drip -Pepcid 35 minutes of critical care Extremely poor prognosis. Most likely anoxic brain damage from prolonged CPR and resuscitation. Palliative care consultation to help address goals of treatment.
[2018-07-06 21:58] LABS: Alkaline Phosphatase 153 U/L (45-117); Total Protein 5.4 g/dL (6.4-8.2)
[2018-07-06 21:59] LABS: Creatine Kinase 120 U/L (39-308)
[2018-07-06] MEDS ORDERED: Morphine Sulfate Inj 2 MG/ML Vial IV.PUSH PRN (22:00)
[2018-07-06] MEDS ORDERED: Bisacodyl 10 MG Supp RECTAL PRN (22:00)
[2018-07-06] MEDS ORDERED: Heparin - SQ 10,000 UNITS/ML Vial SQ SCH (22:00)
[2018-07-06] MEDS ORDERED: Acetaminophen 325 MG Tablet PO PRN (22:00)
[2018-07-06] MEDS ORDERED: Dextrose 50% in Water 50 ML Vial IV.PUSH PRN (22:07)
[2018-07-06] MEDS ORDERED: Sodium Chloride 0.9% 2 ML Flush PRN IV.FLUSH (22:07)
--- NOTE | 2018-07-06 22:09 | XR ---
EXAM DATE: 07/06/2018 9:39 PM EDT AGE/SEX: 62 years / Male INDICATIONS: Post cardiac arrest. CLINICAL DATA: This is the patient's initial encounter. Patient reports that signs and symptoms have been present for 1 day and indicates a pain score of Nonresponsive. MEDICAL/SURGICAL HISTORY: . Congestive heart failure. Chronic obstructive pulmonary disease. Di abetes. A-fib. Renal disease. None. COMPARISON: [facility] [place], CHEST 1V SINGLE AP, 06/27/2018. . FINDINGS: A single AP view of the chest demonstrates worsening interstitial edema and perihilar haziness with b ibasilar areas of consolidation/effusion. Heart size is prominent. Interval placement of an endotrach eal tube with the tip just below the clavicles, well above the eulalia. Osseous structures are intact CONCLUSION: 1. Cardiomegaly with radiographic findings of worsening failure. 2. Bibasilar areas of consolidation/effusion. 3. Interval placement of an endotracheal tube tip appropriately positioned above the eulalia. Electronically signed by: Brian Beebe MD 07/06/2018 10:07 PM EDT
[2018-07-06 22:20] LABS: Creatine Kinase MB 6.2 ng/mL (0.5-3.6)
[2018-07-06] MEDS ORDERED: Heparin 10,000 UNITS/10 ML Vial (for IV use) IV.PUSH STA (22:35)
[2018-07-06] MEDS ORDERED: Heparin Drip 25,000 UNIT/250 ML BAG IV.CONT PRN (22:35)
[2018-07-06] MEDS ORDERED: [UNRECOGNIZED DRUG - OTHER] IV.PUSH SCH (22:45)
[2018-07-06] MEDS ORDERED: Amiodarone Inj 150 MG in Dextrose 5% in Water Inj 97 ML IV.SIG ONE ×2 (23:29)
[2018-07-06 23:48] LABS: Activated Partial Thrombo Time 23.2 sec (24.3-30.1); INR 1.3 Ratio; Prothrombin Time 13.2 sec (9.8-11.6)
[2018-07-07] MEDS: MethylPREDNISolone Sod Succinate Inj 40 MG/ML Vial IV.PUSH SCH ×3 (00:17→12:39)
[2018-07-07] MEDS: Sod Chloride 0.9% Inj 1,000 ML IV.CONT SCH ×2 (00:22→12:39)
[2018-07-07] MEDS: Insulin NovoLOG Aspart Correctional Sugar Inj SQ SCH ×2 (01:29→06:41)
--- NOTE | 2018-07-07 02:13 | CT ---
EXAM DATE: 07/07/2018 12:00 AM EDT AGE/SEX: 62 years / Male INDICATIONS: Altered mental status. CLINICAL DATA: This is the patient's initial encounter. Patient reports that signs and symptoms have been present for 1 day and indicates a pain score of Nonresponsive. MEDICAL/SURGICAL HISTORY: Cardiovascular disease. Diabetes mellitus type II. Hypertension. None. RADIATION DOSE: 66.34 CTDI (mGy) COMPARISON: No prior exams available for comparison. TECHNIQUE: CT of the head without contrast. Using automated exposure control and adjustment of the mA and/or kV according to patient size, radiation dose was kept as low as reasonably achievable to ob tain optimal diagnostic quality images. DICOM format image data is available electronically for revi ew and comparison. FINDINGS: Cerebrum: The ventricles are normal for age. There is low density seen throughout the cerebral cait spheres being most prominent in the temporal and occipital lobes. There is effacement of the sulci. T he basal cisterns are nearly effaced. No evidence of midline shift, mass lesion, hemorrhage or acute infarction. No extraaxial fluid collections are seen. Posterior Fossa: There is low density seen throughout the cerebellar hemispheres and midbrain. The 4 th ventricle is midline. The cerebellopontine angle is unremarkable. Extracranial: The visualized portion of the orbits is intact. There is ethmoid sinus disease. Skull: The calvaria is intact. No evidence of skull fracture. CONCLUSION: Low density throughout the brain concerning for diffuse processes such as a sequela of anoxic and/or diffuse brain swelling. The basal cisterns are nearly completely effaced. Sulci are completely efface d. . Electronically signed by: Renny Pace MD 07/07/2018 2:12 AM EDT
[2018-07-07 03:17] VITALS: RESP 20
[2018-07-07] MEDS ORDERED: Chlorhexidine Gluconate 2% 1 Pack (2 Cloths) TOPICAL PRN (04:00)
[2018-07-07] MEDS ORDERED: Chlorhexidine Gluconate 2% 1 Pack (2 Cloths) TOPICAL SCH (04:00)
[2018-07-07] MEDS ORDERED: Heparin 10,000 UNITS/10 ML Vial (for IV use) IV.PUSH PRN (04:36)
[2018-07-07 05:16] LABS: Baso % (Auto) 0.1 % (0.0-2.0); Hematocrit 31.3 % (39.0-51.0); Hemoglobin 9.3 gm/dL (13.0-17.0); Lymph # (Auto) 0.3 th/mm3 (1.0-4.8); Lymph % (Auto) 0.8 % (9.0-44.0); Mean Corpuscular Hemoglobin 26.4 pg (27.0-34.0); Mean Corpuscular Volume 88.5 fL (80.0-100.0); Mean Platelet Volume 7.9 fL (7.0-11.0); Mono # (Auto) 1.7 th/mm3 (0.0-0.9); Mono % (Auto) 4.3 % (0.0-8.0); Neut # (Auto) 37.9 th/mm3 (1.8-7.7); Neut % (Auto) 94.8 % (16.0-70.0); Platelet Count 291 th/mm3 (150-450); Red Blood Count 3.54 mil/mm3 (4.50-5.90); Red Cell Distribution Width 21.3 % (11.6-17.2); White Blood Count 39.9 th/mm3 (4.0-11.0)
[2018-07-07 05:21] LABS: Mean Corpuscular HGB Conc 29.8 % (32.0-36.0)
[2018-07-07 05:30] LABS: Activated Partial Thrombo Time 30.3 sec (24.3-30.1); INR 1.4 Ratio; Prothrombin Time 14.3 sec (9.8-11.6)
[2018-07-07 06:00] LABS: Alanine Aminotransferase 66 U/L (12-78); Albumin 2.7 g/dL (3.4-5.0); Alkaline Phosphatase 145 U/L (45-117); Anion Gap 7 meq/L (5-15); Aspartate Aminotransferase 409 U/L (15-37); Blood Urea Nitrogen 53 mg/dL (7-18); Carbon Dioxide 34.1 meq/L (21.0-32.0); Chloride 99 meq/L (98-107); Glomerular Filtration Rate 38 mL/min (>89); Glucose,Random 220 mg/dL (74-106); Magnesium 2.1 mg/dL (1.5-2.5); Phosphorus 5.1 mg/dL (2.5-4.9); Potassium 5.4 meq/L (3.5-5.1); Sodium 140 meq/L (136-145); Total Protein 5.3 g/dL (6.4-8.2)
[2018-07-07 08:00] LABS: Lymphocytes 2 % (9-44); Monocytes 4 % (0-8); Platelet Estimate Normal (Normal); Platelet Morphology Normal (Normal); Tallied Nucleated RBC 1 (0-0)
[2018-07-07 08:01] LABS: Ovalocytes 1+
--- NOTE | 2018-07-07 08:18 | ECG ---
Date Performed: 07/07/2018 Time Performed: 05:12:34 PTAGE: 62 years EKG: Sinus rhythm Right bundle branch block Low QRS voltages in precordial leads Abnormal ECG Compared to prior EKG, i nferior injury is no longer present. Unfortunately, rhythm on prior EKG is unclear and I cannot adriana re. DOCTOR: Maicol Curtis Interpretating Date/Time 07/07/2018 08:18:43
[2018-07-07] MEDS ORDERED: Multivitamin/Minerals Therapeutic Tablet PO SCH (09:00)
[2018-07-07] MEDS ORDERED: Escitalopram 10 MG Tablet PO SCH (09:00)
[2018-07-07] MEDS ORDERED: Ferrous Sulfate 325 MG Tablet PO SCH (09:00)
[2018-07-07] MEDS ORDERED: Famotidine PF Inj 20 MG/2 ML Vial IV.PUSH SCH (09:00)
[2018-07-07] MEDS ORDERED: Sodium Chloride 0.9% 2 ML Flush BID IV.FLUSH SCH (09:00)
[2018-07-07] MEDS ORDERED: Senna/Docusate Sodium 8.6/50 MG Tablet PO SCH (09:00)
[2018-07-07] MEDS ORDERED: Rivaroxaban 10 MG Tablet PO SCH (09:00)
[2018-07-07] MEDS ORDERED: Budesonide-Formoterol 160/4.5 MCG 6 GM Inhaler INH SCH (09:00)
[2018-07-07] MEDS ORDERED: Digoxin 250 MCG Tablet PO SCH (09:00)
--- NOTE | 2018-07-07 09:57 | ECG ---
Date Performed: 07/06/2018 Time Performed: 22:15:13 PTAGE: 62 years EKG: Probable junctional tachycardia WITH OCCASIONAL VENTRICULAR PREMATURE COMPLEXES RIGHT BUND LE BRANCH BLOCK MARKED ST ELEVATION, CONSIDER INFERIOR INJURY ACUTE [place] Compared to prior electr ocardiogram, Junctional tachycardia and inferior injury are present. PREVIOUS TRACING : 06/27/2018 06.19 DOCTOR: Maicol Curtis Interpretating Date/Time 07/07/2018 09:56:18
--- NOTE | 2018-07-07 10:40 | P.CONPAL ---
Consult Service: Palliative Care Requesting Physician: Javier Rivera Reason for Consult: a. To assist with evaluation and management of symptoms including: Encephalopathy, dyspnea b. To assist medical decision maker(s) with: better understanding of current medical conditions; weighing benefits/burdens of medical treatment options; making medical treatment decisions. Primary Care Provider: No Primary Care Physician History of Present Illness History of Present Illness: Mr. Nix is a 62 y/o male with a past medical history of A. fib, diastolic CHF, COPD, obstructive sleep apnea, hypertension, chronic kidney disease, and diabetes. He has had multiple admissions in the past 30 days for complaints of shortness of breath. 1 of these visits back in December 2017 required intubation. He was discharged from [facility] to his [facility] on after being admitted for dyspnea. He was readmitted to the ED 07/06 at approximately 9 PM. He reportedly was at his [facility] and began pushing his call cosme at 7:51 PM. When the staff arrived to check on him he was slumped over but still breathing but shortly thereafter lost his pulse. CPR was initiated and ambulance services arrived at the patient's bedside approximately 7:55 PM. That evaluation revealed that the patient was in asystole. An intraosseous access was placed in the right velarde and patient was intubated with continued ACLS protocol. Epinephrine was given a total of 5 doses and 150 mEq of bicarbonate prior to arrival at the ED. In the interim the patient appeared to have a sinus tachycardia with a wide complex during the resuscitative process however never had a return of palpable pulse. After a minute of pulseless sinus tachycardia, presumed to be PEA, he went back into asystole. In spite of continued chest compressions, additional epinephrine and ACLS protocol, it was an hour before the patient regained spontaneous circulation. He was transferred to the care of the health coordinator and irrigator gravity flow notified of a possible STEMI alert. Family was at bedside and made the patient a DO NOT RESUSCITATE status due to the extremely prolonged resuscitation attempt and extremely poor prognosis. Diagnostic data on admission * WBC 18.1, Hgb 9.0, HCT 32.4, PLT 218: Troponin 0.38, greater than 40 * ABG pH 7.11, PCO2 71, PaO2 132, saturation 95%, HCO3 21, base excess -7.0 on 100% FiO2 * Sodium 142, potassium 5.0, BUN 42, creatinine 1.76, random glucose 341, alkaline phosphatase 153, CK-MB 6.2, BNP 796, * Chest x-ray showed cardiomegaly with radiographic findings of worsening failure, bibasilar areas of consolidation/effusion and interval placement of an endotracheal tube tip appropriately positioned above the eulalia. * Head CT shows low density throughout the brain concerning for diffuse processes such as a sequelae of anoxic and/or diffuse brain swelling. The basal cisterns are nearly completely effaced. Sulci are completely effaced. * Presenting EKG showed probable junctional tachycardia with occasional ventricular premature complexes. Right bundle branch block. Marked ST elevation, consider inferior injury, acute VA. At this evaluation, patient is ventilated, not sedated, not responding to noxious stimuli, either peripherally or centrally. Negative corneal, gag or plantar reflexes. He remains hypotensive on norepinephrine, heparin drip and amiodarone infusing. He is not breathing over the vent. His son is at bedside. Past medical history Hyperlipidemia Hypertension Obstructive sleep apnea COPD Anemia Atrial fibrillation Benign prostatic hypertrophy Diastolic heart failure Diabetes mellitus GERD Edema Morbid obesity History of alcohol abuse Insomnia Surgical history Tonsillectomy Atrial fibrillation ablation Appendectomy Social history Positive for alcohol abuse Negative for tobacco abuse No history of substance abuse. Family history Father with diabetes mellitus and hypertension. Mother with diabetes mellitus. . Function/Cognitive Trajectory: He has been seen in the ED 13 times in 2018 and 10 times in 2017. He resides in a intermediate facility and is totally dependent for ADLs prior to his arrest. . Review of Systems Patient is nonverbal and unable to provide their own ROS. A 12 part ROS taken as best as possible from medical record and available family. Respiratory: Reports shortness of breath Neurologic: Reports other (Unresponsive, encephalopathic) [facility] - History History Provided By: Medical Record - Medical History Medical History: Medical History (Last Reviewed 07/06/18 @ 21:27 by Lin Orozco MD) Hyperlipidemia (Acute) Hypertension (Acute) DENIS (obstructive sleep apnea) (Acute) COPD (chronic obstructive pulmonary disease) (Acute) Anemia Atrial fibrillation BPH (benign prostatic hyperplasia) CHF (congestive heart failure) Diabetes mellitus GERD (gastroesophageal reflux disease) Generalized edema Generalized weakness History of alcohol abuse Insomnia Morbid obesity - Surgical History Surgical History: Surgical History (Last Reviewed 07/06/18 @ 21:27 by Lin Orozco MD) History of surgery on arm (Acute) Hx of tonsillectomy (Acute) H/O cardiac radiofrequency ablation (Acute) History of appendectomy (Acute) - Family History Family History: Family History (Last Reviewed 07/06/18 @ 21:27 by Lin Orozco MD) Father Diabetes mellitus Hypertension Mother Diabetes mellitus - Tobacco History Second Hand Smoke Exposure: Yes Smoking Status: Unknown if ever smoked - Alcohol History How Often Do You Have a Drink Containing Alcohol: Never - Substance Use History Substance History: No History of Abuse - Travel History History of Recent Travel: No Recent Travel in the [place] Within the Last 8 Weeks: No Recent Travel Out of the Country Within the Last 8 Weeks: No - Immunization History Tetanus Immunization: Unable to Assess Medications and Allergies Active Medications: Active Medications Acetaminophen (Tylenol) 650 mg PO Q6H PRN PRN Reason: PAIN 1-5 AND/OR FEVER >101F Al Hydroxide/Mg Hydroxide (Milk Of Magnroxana Liq) 30 ml PO Q12H PRN PRN Reason: Mild Constipation Albuterol (Duoneb Neb (Prn)) 1 ampul NEB Q2HR NEB PRN PRN Reason: WHEEZING Albuterol (Duoneb Neb (Delilah)) 1 ampul NEB Q4HR NEB [facility] Last Admin: 07/07/18 08:11 Dose: 1 ampul Aspirin (Ecotrin) 81 mg PO DAILY [facility] Last Admin: 07/07/18 08:40 Dose: 81 mg Atorvastatin Calcium (Lipitor) 40 mg PO HS [facility] Bisacodyl (Dulcolax Supp) 10 mg RECTAL DAILY PRN PRN Reason: SEVERE CONSITIPATION Budesonide/Formoterol Fumarate (Symbicort 160/4.5 Mcg Inh) 2 puff INH BID [facility] Last Admin: 07/07/18 08:41 Dose: Not Given Chlorhexidine Gluconate (Chlorhexidine 2% Cloth) 3 pack TOPICAL DAILY@0400 [facility] Stop: 07/12/18 03:59 Last Admin: 07/07/18 05:04 Dose: 3 pack Chlorhexidine Gluconate (Chlorhexidine 2% Cloth) 3 pack TOPICAL DAILY@0400 PRN PRN Reason: Extra cloth needed Stop: 07/12/18 03:59 Dextrose (D50w Vial) 50 ml IV.PUSH UNSCH PRN PRN Reason: PER HYPOGLYCEMIA PROTOCOL Digoxin (Lanoxin) 250 mcg PO DAILY [facility] Last Admin: 07/07/18 08:40 Dose: 250 mcg Escitalopram Oxalate (Lexapro) 10 mg PO DAILY [facility] Last Admin: 07/07/18 08:40 Dose: 10 mg Famotidine (Pepcid Pf Inj) 10 mg IV.PUSH Q12HR [facility] Last Admin: 07/07/18 08:39 Dose: 10 mg Ferrous Sulfate (Ferosul) 325 mg PO BID [facility] Last Admin: 07/07/18 08:40 Dose: 325 mg Glucagon (Glucagon Inj) 1 mg OTHER PRN PRN PRN Reason: for Hypoglycemia Protocol Heparin Sodium (Porcine) (Heparin Inj) 5,000 units IV.PUSH UNSCH PRN PRN Reason: aPTT < 25 Norepinephrine Bitartrate (Levophed-Dextrose 4 Mg/250 Ml Drip) 4 mg in 250 mls @ 7.5 mls/hr IV.SIG TITRATE PRN; Protocol PRN Reason: Per Protocol Last Admin: 07/07/18 08:39 Dose: 12 mcg/min, 45 mls/hr Sodium Chloride (Ns Inj) 1,000 mls @ 84 mls/hr IV.CONT .[id number] [facility] Last Infusion: 07/07/18 04:30 Dose: 84 mls/hr Heparin Sodium/Dextrose (Heparin/D5w 25,000 U/250 Ml) 25,000 unit in 250 mls @ 10 mls/hr IV.CONT TITRATE PRN; Protocol PRN Reason: Per Protocol Last Titration: 07/07/18 06:23 Dose: 1,100 units/hr, 11 mls/hr Amiodarone HCl 450 mg/ (Dextrose) 250 mls @ 33.33 mls/hr IV.CONT TITRATE PRN; Protocol PRN Reason: Per Protocol Last Titration: 07/07/18 04:30 Dose: 1 mg/min, 33.33 mls/hr Insulin Aspart (Novolog Insulin Correctional Sugar Inj) 0 unit SQ Q6HR [facility]; Protocol Last Admin: 07/07/18 06:41 Dose: Not Given Lactulose (Lactulose Liq) 30 ml PO DAILY PRN PRN Reason: SEVERE CONSITIPATION Methylprednisolone Sodium Succinate (Solumedrol Inj) 40 mg IV.PUSH Q6H [facility] Last Admin: 07/07/18 05:04 Dose: 40 mg Midazolam HCl (Versed Inj) 2 mg IV.PUSH Q1H PRN PRN Reason: SEDATION Morphine Sulfate (Morphine Inj) 2 mg IV.PUSH Q2H PRN PRN Reason: PAIN SCALE 6 TO 10 Multivitamins/Minerals (Theragran-M) 1 tab PO DAILY [facility] Last Admin: 07/07/18 08:40 Dose: 1 tab Ondansetron HCl (Zofran Inj) 4 mg IV.PUSH Q6H PRN PRN Reason: NAUSEA OR VOMITING Senna/Docusate Sodium (Coco-Colace) 1 tab PO BID [facility] Last Admin: 07/07/18 08:40 Dose: 1 tab Sennosides (Senokot) 17.2 mg PO Q12H PRN PRN Reason: Moderate Constipation Sodium Chloride (Ns Flush) 2 ml IV.FLUSH BID [facility] Last Admin: 07/07/18 08:40 Dose: 2 ml Sodium Chloride (Ns Flush) 2 ml IV.FLUSH PRN PRN PRN Reason: FLUSH AFTER USING IV ACCESS Tamsulosin HCl (Flomax) 0.4 mg PO DAILY [facility] Last Admin: 07/07/18 08:40 Dose: 0.4 mg Terbutaline Sulfate (Brethine Inj) 1 mg SQ UNSCH PRN PRN Reason: For Extravasation Allergies Allergy/AdvReac Type Severity Reaction Status Date / Time No Known Allergies Allergy Verified 06/17/18 17:22 Home Medications Medication Instructions Recorded Confirmed Type albuterol sulfate [Ventolin HFA] 1 puff INHALATION Q4HR PRN 05/22/18 07/06/18 History atorvastatin 40 mg PO HS 05/22/18 07/06/18 History budesonide-formoterol [Symbicort] 2 puff INHALATION BID 05/22/18 07/06/18 History calcium acetate 667 mg PO TID 05/22/18 07/06/18 History digoxin 0.25 mg PO DAILY 05/22/18 07/06/18 History diltiazem HCl [Cardizem LA] 240 mg PO DAILY 05/22/18 07/06/18 History ipratropium bromide [Atrovent HFA] 1 puff INHALATION Q6HR PRN 05/22/18 07/06/18 History metoprolol tartrate 100 mg PO BID 05/22/18 07/06/18 History omeprazole 20 mg PO DAILY 05/22/18 07/06/18 History potassium chloride [Klor-Con] 1 packet PO DAILY 05/22/18 07/06/18 History rivaroxaban 10 mg PO DAILY 05/22/18 07/06/18 History acetaminophen [Tylenol] 650 mg PO Q4H PRN 06/01/18 07/06/18 History insulin aspart U-100 [Novolog 2 - 12 unit SUB-Q ACHS 06/01/18 07/06/18 History Flexpen U-100 Insulin] bisacodyl [Dulcolax (bisacodyl)] 10 mg [place] DAILY PRN 06/17/18 07/06/18 History ferrous sulfate 325 mg PO BID 06/17/18 07/06/18 History furosemide 40 mg IV DAILY 06/17/18 07/06/18 History furosemide [Lasix] 40 mg PO DAILY 06/17/18 07/06/18 History magnesium citrate [Citroma] 30 ml PO DAILY PRN 06/17/18 07/06/18 History magnesium hydroxide [Milk of 30 ml PO DAILY PRN 06/17/18 07/06/18 History Magnesia] melatonin 6 mg PO HS PRN 06/17/18 07/06/18 History methylprednisolone sod suc(PF) 125 mg IM QAM 06/17/18 07/06/18 History [Solu-Medrol (PF)] multivitamin with minerals 1 tab PO DAILY 06/17/18 07/06/18 History torsemide 20 mg PO BID 06/17/18 07/06/18 History escitalopram oxalate 10 mg PO DAILY 06/27/18 07/06/18 History Advance Directives Living Will: No Healthcare Surrogate: Yes Health Care Surrogate Name and Number: Don Rudd [phone] Physical Exam Vital Signs: Vital Signs - 24 hr 07/06/18 20:55 07/06/18 21:43 07/06/18 22:00 Temperature Pulse Rate 114 H Respiratory Rate 20 16 Blood Pressure 115/56 L Pulse Oximetry 99 95 100 07/06/18 22:30 07/06/18 22:35 07/06/18 23:00 Temperature Pulse Rate 114 H 114 H 116 H Respiratory Rate 15 16 16 Blood Pressure 125/60 126/60 131/59 L Pulse Oximetry 100 100 100 07/06/18 23:20 07/06/18 23:30 07/06/18 23:53 Temperature Pulse Rate 89 90 Respiratory Rate 20 16 20 Blood Pressure 118/55 L Pulse Oximetry 100 99 07/07/18 00:49 07/07/18 01:48 07/07/18 01:51 Temperature Pulse Rate 92 H 90 Respiratory Rate 16 16 Blood Pressure 102/62 158/87 H Pulse Oximetry 100 100 100 07/07/18 02:00 07/07/18 03:12 07/07/18 04:28 Temperature Pulse Rate 95 H 103 H Respiratory Rate 16 20 20 Blood Pressure 150/80 H Pulse Oximetry 100 100 100 07/07/18 04:30 07/07/18 05:00 07/07/18 06:00 Temperature 98.7 F Pulse Rate 106 H 90 83 Respiratory Rate 20 20 20 Blood Pressure 102/61 107/71 120/70 Pulse Oximetry 99 100 100 07/07/18 08:00 07/07/18 08:12 07/07/18 10:00 Temperature 98.5 F Pulse Rate 75 76 Respiratory Rate 20 20 Blood Pressure 121/56 L Pulse Oximetry 99 100 I&O: Intake & Output 07/05/18 07/06/18 07/07/18 07/08/18 06:59 06:59 06:59 06:59 Intake Total 100 / 100 250 / 250 Output Total 50 / 50 Balance 50 / 50 250 / 250 Weight 336 lb 3.279 oz Physical Exam: CONSTITUTIONAL/GENERAL: This is a morbidly obese male, unresponsive on the ventilator. TUBES/LINES/DRAINS: Right femoral TL CVL, right ACF PIV SKIN: No jaundice, rashes, or lesions. Ecchymoses on upper extremities. No wounds seen anteriorly. Skin temperature appropriate. Not diaphoretic. HEAD: Atraumatic. Normocephalic. EYES: Pupils equal and round, not reactive. Extraocular motions intact. No scleral icterus. No injection or drainage. Fundi not examined. ENT: Unable to assess hearing, orally intubated. NECK: Trachea midline. Supple. No palpable thyroid enlargement or nodularity. CARDIOVASCULAR: Irregular rhythm, controlled rate, no rub murmur or gallop RESPIRATORY/CHEST: Mechanically ventilated, no rhonchi, wheezes or rales. GASTROINTESTINAL: Abdomen obese, nondistended. Bowel sounds absent. GENITOURINARY: Without palpable bladder distension. Barrientos catheter in place. MUSCULOSKELETAL: Extremities with 2+ edema, chronic skin changes of PVD. LYMPHATICS: No palpable cervical or supraclavicular adenopathy. NEUROLOGICAL: Unresponsive. Negative response to central and peripheral noxious stimuli. No gag, corneal or plantar reflexes. PSYCHIATRIC: Unresponsive. . Diagnostic Tests Laboratory: Laboratory Results - last 72 hr 07/06/18 07/06/18 07/06/18 20:40 20:40 20:40 WBC 18.1 H RBC 3.34 L Hgb 9.0 L POC Hgb (Calc) Hct 32.4 L POC Hct MCV 97.0 MCH 26.9 L MCHC 27.7 L RDW 21.4 H Plt Count 218 MPV 9.1 Prelim Diff (Auto) Slide review pending Neut % (Auto) 74.1 H Lymph % (Auto) 19.3 [place] % (Auto) 5.8 Eos % (Auto) 0.7 Baso % (Auto) 0.1 Neut # (Auto) 13.4 H Lymph # (Auto) 3.5 [place] # (Auto) 1.1 H Eos # (Auto) 0.1 Baso # (Auto) 0.0 WBC Differential Manual diff final Seg Neuts % (Manual) 61 Band Neuts % (Manual) 9 H Lymphocytes % (Manual) 19 Monocytes % (Manual) 2 Eosinophils % (Manual) 1 Metamyelocytes % (Man) 4 H Myelocytes % (Man) 2 H Promyelocytes % (Man) 2 H Abs Neuts (Manual) 14.1 H Nucleated RBCs/100 WBC 1 H Differential Comment . Platelet Estimate Normal Platelet Morphology Normal Ovalocytes 1+ H Keratocytes Occ H PT INR APTT Puncture Site Patient Temperature O2 Saturation ABG pH ABG pCO2 ABG pO2 ABG HCO3 ABG O2 Content ABG Base Excess ABG Methemoglobin Daryn Test Hemoglobin Carboxyhemoglobin O2 Delivery Device Vent Setting Inspired O2 Critical Value POC Sodium Sodium POC Potassium Potassium POC Chloride Chloride Carbon Dioxide Anion Gap POC BUN BUN Creatinine POC Creatinine Estimated GFR POC Glucose Random Glucose Calcium Phosphorus Magnesium Total Bilirubin AST ALT Alkaline Phosphatase Total Creatine Kinase 120 CK-MB (CK-2) 6.2 H Troponin I 0.38 H B-Natriuretic Peptide Total Protein Albumin Blood Type Antibody Screen 07/06/18 07/06/18 07/06/18 20:40 20:40 20:40 WBC RBC Hgb POC Hgb (Calc) Hct POC Hct MCV MCH MCHC RDW Plt Count MPV Prelim Diff (Auto) Neut % (Auto) Lymph % (Auto) [place] % (Auto) Eos % (Auto) Baso % (Auto) Neut # (Auto) Lymph # (Auto) [place] # (Auto) Eos # (Auto) Baso # (Auto) WBC Differential Seg Neuts % (Manual) Band Neuts % (Manual) Lymphocytes % (Manual) Monocytes % (Manual) Eosinophils % (Manual) Metamyelocytes % (Man) Myelocytes % (Man) Promyelocytes % (Man) Abs Neuts (Manual) Nucleated RBCs/100 WBC Differential Comment Platelet Estimate Platelet Morphology Ovalocytes Keratocytes PT INR APTT Puncture Site Patient Temperature O2 Saturation ABG pH ABG pCO2 ABG pO2 ABG HCO3 ABG O2 Content ABG Base Excess ABG Methemoglobin Daryn Test Hemoglobin Carboxyhemoglobin O2 Delivery Device Vent Setting Inspired O2 Critical Value POC Sodium Sodium 142 POC Potassium Potassium 5.0 POC Chloride Chloride 98 Carbon Dioxide 24.1 Anion Gap 20 H POC BUN BUN 42 H Creatinine 1.76 H POC Creatinine Estimated GFR 39 L POC Glucose Random Glucose 341 H Calcium 9.5 Phosphorus Magnesium Total Bilirubin 0.5 AST 32 ALT 43 Alkaline Phosphatase 153 H Total Creatine Kinase CK-MB (CK-2) Troponin I B-Natriuretic Peptide 796 H Total Protein 5.4 L D Albumin 2.6 L Blood Type O Positive Antibody Screen Negative 07/06/18 07/06/18 07/06/18 20:41 20:41 21:00 WBC RBC Hgb POC Hgb (Calc) 10.2 L Hct POC Hct 30.0 L MCV MCH MCHC RDW Plt Count MPV Prelim Diff (Auto) Neut % (Auto) Lymph % (Auto) [place] % (Auto) Eos % (Auto) Baso % (Auto) Neut # (Auto) Lymph # (Auto) [place] # (Auto) Eos # (Auto) Baso # (Auto) WBC Differential Seg Neuts % (Manual) Band Neuts % (Manual) Lymphocytes % (Manual) Monocytes % (Manual) Eosinophils % (Manual) Metamyelocytes % (Man) Myelocytes % (Man) Promyelocytes % (Man) Abs Neuts (Manual) Nucleated RBCs/100 WBC Differential Comment Platelet Estimate Platelet Morphology Ovalocytes Keratocytes PT 13.9 H INR 1.4 APTT 25.2 Puncture Site Right radial Patient Temperature 98.6 O2 Saturation 95 ABG pH 7.11 L* ABG pCO2 71 H* ABG pO2 132 H ABG HCO3 21 L ABG O2 Content 12.6 ABG Base Excess -7.0 L ABG Methemoglobin 0.7 Daryn Test Present Hemoglobin 9.3 L Carboxyhemoglobin 2.0 O2 Delivery Device Ventilator Vent Setting Inspired O2 100 Critical Value Yes POC Sodium 139 Sodium POC Potassium 4.8 Potassium POC Chloride 96 L Chloride Carbon Dioxide Anion Gap POC BUN 42 H BUN Creatinine POC Creatinine 1.4 H Estimated GFR POC Glucose 336 H Random Glucose Calcium Phosphorus Magnesium Total Bilirubin AST ALT Alkaline Phosphatase Total Creatine Kinase CK-MB (CK-2) Troponin I B-Natriuretic Peptide Total Protein Albumin Blood Type Antibody Screen 07/06/18 07/07/18 07/07/18 22:50 01:15 04:50 WBC 39.9 H D RBC 3.54 L Hgb 9.3 L POC Hgb (Calc) Hct 31.3 L POC Hct MCV 88.5 D MCH 26.4 L MCHC 29.8 L RDW 21.3 H Plt Count 291 D MPV 7.9 Prelim Diff (Auto) Slide review pending Neut % (Auto) 94.8 H Lymph % (Auto) 0.[address] [place] % (Auto) 4.3 Eos % (Auto) 0.0 Baso % (Auto) 0.1 Neut # (Auto) 37.9 H Lymph # (Auto) 0.[address] [place] # (Auto) 1.7 H Eos # (Auto) 0.0 Baso # (Auto) 0.0 WBC Differential Manual diff final Seg Neuts % (Manual) 81 H Band Neuts % (Manual) 13 H Lymphocytes % (Manual) 2 L Monocytes % (Manual) 4 Eosinophils % (Manual) Metamyelocytes % (Man) Myelocytes % (Man) Promyelocytes % (Man) Abs Neuts (Manual) 37.5 H Nucleated RBCs/100 WBC 1 H Differential Comment . Platelet Estimate Normal Platelet Morphology Normal Ovalocytes 1+ H Keratocytes PT 13.2 H INR 1.3 APTT 23.2 L Puncture Site Patient Temperature O2 Saturation ABG pH ABG pCO2 ABG pO2 ABG HCO3 ABG O2 Content ABG Base Excess ABG Methemoglobin Daryn Test Hemoglobin Carboxyhemoglobin O2 Delivery Device Vent Setting Inspired O2 Critical Value POC Sodium Sodium POC Potassium Potassium POC Chloride Chloride Carbon Dioxide Anion Gap POC BUN BUN Creatinine POC Creatinine Estimated GFR POC Glucose 294 H Random Glucose Calcium Phosphorus Magnesium Total Bilirubin AST ALT Alkaline Phosphatase Total Creatine Kinase CK-MB (CK-2) Troponin I B-Natriuretic Peptide Total Protein Albumin Blood Type Antibody Screen 07/07/18 07/07/18 04:50 04:50 WBC RBC Hgb POC Hgb (Calc) Hct POC Hct MCV MCH MCHC RDW Plt Count MPV Prelim Diff (Auto) Neut % (Auto) Lymph % (Auto) [place] % (Auto) Eos % (Auto) Baso % (Auto) Neut # (Auto) Lymph # (Auto) [place] # (Auto) Eos # (Auto) Baso # (Auto) WBC Differential Seg Neuts % (Manual) Band Neuts % (Manual) Lymphocytes % (Manual) Monocytes % (Manual) Eosinophils % (Manual) Metamyelocytes % (Man) Myelocytes % (Man) Promyelocytes % (Man) Abs Neuts (Manual) Nucleated RBCs/100 WBC Differential Comment Platelet Estimate Platelet Morphology Ovalocytes Keratocytes PT 14.3 H INR 1.4 APTT 30.3 H D Puncture Site Patient Temperature O2 Saturation ABG pH ABG pCO2 ABG pO2 ABG HCO3 ABG O2 Content ABG Base Excess ABG Methemoglobin Daryn Test Hemoglobin Carboxyhemoglobin O2 Delivery Device Vent Setting Inspired O2 Critical Value POC Sodium Sodium 140 POC Potassium Potassium 5.4 H POC Chloride Chloride 99 Carbon Dioxide 34.1 H D Anion Gap 7 POC BUN BUN 53 H Creatinine 1.82 H POC Creatinine Estimated GFR 38 L POC Glucose Random Glucose 220 H D Calcium 8.0 L D Phosphorus 5.1 H Magnesium 2.1 Total Bilirubin 0.9 AST 409 H ALT 66 Alkaline Phosphatase 145 H Total Creatine Kinase CK-MB (CK-2) Troponin I Greater than 40.00 H* B-Natriuretic Peptide Total Protein 5.3 L Albumin 2.7 L Blood Type Antibody Screen Result Diagrams: 07/07/18 04:50 07/07/18 04:50 Imaging: Chest X-Ray 07/06/18 21:39 CONCLUSION: 1. Cardiomegaly with radiographic findings of worsening failure. 2. Bibasilar areas of consolidation/effusion. 3. Interval placement of an endotracheal tube tip appropriately positioned above the eulalia. Head CT 07/07/18 00:00 CONCLUSION: Low density throughout the brain concerning for diffuse processes such as a sequela of anoxic and/or diffuse brain swelling. The basal cisterns are nearly completely effaced. Sulci are completely effaced. . Procedures: Chest X-Ray 07/06/18 21:39 CONCLUSION: 1. Cardiomegaly with radiographic findings of worsening failure. 2. Bibasilar areas of consolidation/effusion. 3. Interval placement of an endotracheal tube tip appropriately positioned above the eulalia. Head CT 07/07/18 00:00 CONCLUSION: Low density throughout the brain concerning for diffuse processes such as a sequela of anoxic and/or diffuse brain swelling. The basal cisterns are nearly completely effaced. Sulci are completely effaced. . Patient/Family Conference Present at Family Conference: Spoke with son, Maldonado, at bedside, who conference in his uncle, Don, who is the patient's listed healthcare surrogate. Don states he would be on available to serve as decision maker but would be happy to support Maldonado through the decision-making process. Per [place] statutes, Maldonado would be the proxy decision-maker if the surrogate were unavailable. Reviewed imaging studies, results of EEG, patient's clinical status and the events surrounding his admission. EEG showed no activity, CT scan was indicative of a severe anoxic injury. Maldonado and Don both state that in recent conversations with the patient, he has stated that he does not wish to be resuscitated or ventilated and would prefer withdrawal of care to existing in the hospital. Based on that conversation and prior conversations which were consistent. The family has decided to withdraw life support. Don, who lives in [place] , states he will not be able to come down right away, but would not wish to delay withdrawal of life support. He has encouraged Maldonado to go ahead with the withdrawal and consents were signed. This was also discussed with Dr. Alfonso and Dr. Marshall as the consulting and attending physicians, who agree that based on the clinical scenario, imaging and neurological studies that no hope of meaningful recovery is likely. . Family Conference Location: Bedside Issues Discussed: * Palliative care role, purpose, approach * Additional medical, psychosocial, and spiritual history * Patients general health, functional status, and cognitive changes in the months leading up to the current hospitalization * Patient/family understanding of the current medical problems * Patient/family understanding of prognosis * Patients goals of care as best understood from advance directives and/or conversations and/or values * Current medical treatment options and benefits/burdens of those options * Likely scenarios comparing ongoing aggressive care with a transition to comfort measures only * Questions answered to the best of my ability * Palliative care contact information provided Assessment and Plan - Disease Oriented Problem List (1) Anasarca (2) CHF (congestive heart failure) (3) Acute kidney injury (4) Anoxic brain injury (5) Cardiac arrest - Symptom Scale (1) Encephalopathy 0-10 Scale: Unable to quantify (Patient comatose) (2) Dyspnea 0-10 Scale: Unable to quantify (Patient comatose) Pertinent Non-Medical Issues: Psychosocial: Mr. Nix has been living in the [facility] area for the last 17 years. He is originally from [facility] and used to work in [place]. 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 He has 3 adult children Maldonado, Za, and Lamont. Spiritual: Spiritism Legal: The patient named his brother Don Nix, his healthcare surrogate and signed a designation form today. Ethical issues impacting care: There are currently no known ethical issues impacting care at this time Important Contacts: Don Nix, brother/HCP [phone] Maldonado Nix, son [phone] Prognosis: His prognosis is grim. He sustained an extended cardiac arrest of approximately 85 minutes prior to ROSC and per CT imaging and EEG, has sustained a severe anoxic brain injury. He is not breathing over the ventilator and has no discernible reflexes or withdrawal to noxious stimuli. It is the family's determination that withdrawal of aggressive measures should be completed without delay. . Code Status: No Code DNR Plan: PLAN: Legal decision maker: Patient is not capacitated for decision-making and it is unlikely that he will ever regain capacity. He has a healthcare surrogate form signed in the computer naming his brother, Don as the healthcare surrogate. Per my telephone discussion with Don, he will not be available to perform those duties but states that he would support the patient's son, Maldonado in any decision-making. As the HCS is unavailable, [place] statutes would indicate that the son Maldonado would be the proxy decision-maker. Goals: Comfort oriented. CODE STATUS: DO NOT RESUSCITATE. SYMPTOMS: * Dyspnea: Patient remains mechanically ventilated, not breathing over the vent rate. Withdrawal of life support is planned for today. He will be medicated with benzodiazepines and opioids for treatment of possible dyspnea. * Encephalopathy: EEG showed no activity, CT of the head showed likely severe anoxic injury. He is off sedation and is not withdrawing to central or peripheral noxious stimuli. He has no discernible reflexes. Plan for withdrawal of life support later today. SUMMARY This is a 62-year-old morbidly obese male with a progressive decline, frequent readmissions who suffered an extended cardiac arrest last night lasting 85 minutes prior to ROSC. He now has a presumed severe anoxic brain injury based on CT results, EEG and clinical exam. Based on recent conversations with his family, they have decided to withdraw life support and allow patient to pass naturally. Palliative care will continue to follow the patient during hospital course as condition evolves, to assist patient/decision-maker with understanding of their medical conditions, weighing benefits/burdens of treatment options, for clarification of goals of treatment. Additionally will assist with any symptoms of palliative concern. . Appreciation Thank you for the opportunity to participate in the care of Zeeshan Nix. Attestation Attestation: To help prompt me to consider important information that might be impacting today's encounter and assessment, information from prior notes written by myself or my colleagues may have been "brought forward" into today's note. My signature on this note, however, is an attestation that I personally performed the exam, history, and/or decision-making noted today, and, unless otherwise indicated, the interactions with patient, family, and staff as well as the review of records all occurred today. I also attest that the listed assessment and stated plan reflect my best clinical judgment today based on the combination of historical information, prior notes, and today's exam/ interactions. When time spent is documented, it refers only to time spent today by the signer, or if indicated, combined time spent today by collaborating physician/nurse practitioner. .
[2018-07-07 12:32] VITALS: BP 105/57; PULSE 76; TEMP 97.9; O2SAT 99
[2018-07-07] MEDS ORDERED: Morphine Inj 4 MG/ML Vial IV.PUSH PRN ×2 (12:32)
[2018-07-07] MEDS ORDERED: Morphine Inj 4 MG/ML Vial IV.PUSH ONE ×2 (12:32)
[2018-07-07] MEDS ORDERED: Acetaminophen 650 MG Supp RECTAL PRN (14:05)
[2018-07-07] MEDS ORDERED: Hyoscyamine Inj 0.5 MG/ML Ampul IV.PUSH ONE (14:15)
[2018-07-07] MEDS ORDERED: Morphine Inj 4 MG/ML Vial IV.PUSH SCH (16:00)
[2018-07-07] MEDS ORDERED: Hyoscyamine Inj 0.5 MG/ML Ampul IV.PUSH PRN (16:00)
--- NOTE | 2018-07-07 17:22 | P.PNCC ---
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 When the staff went in to check on him he was found to be slumped over. At that point he was still breathing, however a few minutes later he lost his pulse. CPR was started. Ambulance services arrived at the patient's bedside at approximately 7:55 PM. The patient was noted to be in asystole. An interosseous access was placed in the right velarde. The patient was intubated with a 7-1/2 endotracheal tube. ACLS protocol was started and epinephrine was given in total 5 doses prior to arrival. The patient intermittently appeared to have a sinus tachycardia with a wide complex during the resuscitative process, however he never had a return of pulse that was palpable. The patient was then quickly go back into asystole after a minute of appearing to be in sinus tachycardia. The patient was presumed to have PEA on each occasion with this occurred prior to arrival. The patient received 150 mEq of bicarbonate in total prior to arrival. On arrival, the patient is noted to have what appears to be PEA as he has no palpable pulse or blood pressure with a sinus tachycardia on the monitor. ACLS was continued. Chest compressions were provided. Additional epinephrine was administered every 3-5 minutes. The patient's history is obtained from reviewing the electronic medical record. After over an hour of ACLS protocol patient regained spontaneous circulation and has been admitted to critical care. The office machine embossograph operator on-call was notified and possible STEMI alert was discussed by ED attending, the office machine embossograph operator on-call. Decision was made to continue conservative management with heparin drip. The CODE STATUS was discussed by ED attending with the family at the bedside and due to prolonged resuscitation and extremely poor prognosis the DNR order was placed on the chart. 07/07: Remains encephalopathic/comatose, orally intubated on mechanical ventilation. Not on any sedation. On Levophed 12 mics per minute. DNR status. EEG done this morning was essentially flat suggesting severe anoxic brain injury. Objective Vital Signs / I&O: Vital Signs 07/06/18 20:55 07/06/18 21:43 07/06/18 22:00 Temperature Pulse Rate 114 H Respiratory Rate 20 16 Blood Pressure 115/56 L Pulse Oximetry 99 95 100 07/06/18 22:30 07/06/18 22:35 07/06/18 23:00 Temperature Pulse Rate 114 H 114 H 116 H Respiratory Rate 15 16 16 Blood Pressure 125/60 126/60 131/59 L Pulse Oximetry 100 100 100 07/06/18 23:20 07/06/18 23:30 07/06/18 23:53 Temperature Pulse Rate 89 90 Respiratory Rate 20 16 20 Blood Pressure 118/55 L Pulse Oximetry 100 99 07/07/18 00:49 07/07/18 01:48 07/07/18 01:51 Temperature Pulse Rate 92 H 90 Respiratory Rate 16 16 Blood Pressure 102/62 158/87 H Pulse Oximetry 100 100 100 07/07/18 02:00 07/07/18 03:12 07/07/18 04:28 Temperature Pulse Rate 95 H 103 H Respiratory Rate 16 20 20 Blood Pressure 150/80 H Pulse Oximetry 100 100 100 07/07/18 04:30 07/07/18 05:00 07/07/18 06:00 Temperature 98.7 F Pulse Rate 106 H 90 83 Respiratory Rate 20 20 20 Blood Pressure 102/61 107/71 120/70 Pulse Oximetry 99 100 100 07/07/18 08:00 07/07/18 08:12 07/07/18 10:00 Temperature 98.5 F Pulse Rate 75 76 Respiratory Rate 20 20 Blood Pressure 121/56 L Pulse Oximetry 99 100 07/07/18 11:13 07/07/18 11:14 07/07/18 12:00 Temperature 97.9 F Pulse Rate 71 76 Respiratory Rate 20 20 20 Blood Pressure 105/57 L Pulse Oximetry 100 99 Intake & Output 07/06/18 07/07/18 07/07/18 18:59 06:59 18:59 Intake Total 100 / 100 1250 / 1250 Output Total 50 / 50 Balance 50 / 50 1250 / 1250 Weight 152.5 kg Intake: IV 100 / 100 1250 / 1250 NS Inj 1,000 ML @ 84 mls/hr IV. 1000 / 1000 CONT .[id number] [facility] Rx#:[id number] Cordarone Inj 150 MG In D5W Inj 100 / 100 97 ML @ 600 mls/hr IV.SIG ONCE ONE Rx#:[id number] Levophed-Dextrose 4 mg/250 ml 250 / 250 Drip 4 mg In 250 ml @ 2 MCG/MIN 7.5 mls/hr IV.SIG TITRATE PRN Rx#:[id number] Output: Urine Amount (Catheter) 50 / 50 Indwelling Urethral Catheter 50 / 50 Other: Date of Last Bowel Movement 07/07/18 # Incontinent Bowel Movements 1 Weight On Admission 152.5 kg Result Diagrams: 07/07/18 04:50 07/07/18 04:50 Imaging: Chest X-Ray 07/06/18 21:39 CONCLUSION: 1. Cardiomegaly with radiographic findings of worsening failure. 2. Bibasilar areas of consolidation/effusion. 3. Interval placement of an endotracheal tube tip appropriately positioned above the eulalia. Head CT 07/07/18 00:00 CONCLUSION: Low density throughout the brain concerning for diffuse processes such as a sequela of anoxic and/or diffuse brain swelling. The basal cisterns are nearly completely effaced. Sulci are completely effaced. . Objective Remarks: HEENT/ Neuro: Comatose off sedation, pupils 3 mm bilaterally nonreactive, orally intubated, Pallor present, no icterus, tongue/ mucosa moist Neck: No JVD Chest/Pulm: on mech vent, good air entry bilaterally, no wheezing or crackles CVS: S1-S2 regular, no murmur GI/abdomen: soft, nontender, bowel sounds sluggish Extremities: warm bilaterally, no edema Assessment and Plan - Assessment and Plan Plan: Respiratory failure -Post cardiac arrest -Vent bundle -No weaning due to severe anoxic brain injury -DuoNeb's as needed -Taper off FiO2 to keep sats above 92 Cardiac arrest -DNR per family request -Not a candidate for therapeutic hypothermia due to DNR -Series of troponins and EKG -Aspirin and statins Encephalopathy -Most likely anoxic brain damage per CT report -EEG suggestive of significant anoxic brain injury. -Palliative care consultation Hyperlipidemia -Atorvastatin Hypotension -Levophed and dopamine to keep map above 65 -IV fluid resuscitation DENIS -Continue mechanical ventilation COPD -DuoNeb scheduled and as needed -IV steroids Anemia -Monitor H&H and transfuse as needed to keep hemoglobin above 7 Atrial fibrillation -Amiodarone drip BPH -Barrientos catheter -Continue tamsulosin CHF -Hold beta-devin and ISMAEL inhibitor due to cardiogenic shock -IV diuretics when hemodynamically stable Diabetes mellitus -Insulin sliding scale GERD -IV Pepcid DVT GI prophylaxis -Teds SCDs -Heparin drip -Pepcid Discussed with palliative care team. Family wishes to proceed with transition to comfort measures due to severe anoxic brain injuries. Patient is terminal with severe anoxic brain damage and cardiogenic shock, multiorgan failure. Plan for withdrawal and terminal wean when family ready. Exhibits signed. 35 minutes of critical care
--- NOTE | 2018-07-08 20:02 | MG ---
cc: Prasad Barksdale MD EEG NUMBER: [id number] Hyperventilation not performed. The patient is sedated. Anemia, COPD, Solu-Medrol, possible anoxic encephalopathy. The patient has extremely low-amplitude background. Only EKG artifact is noted and some very, very low-amplitude beta rhythms are seen, which probably are ICU artifact. Photic stimulation is performed without significant posterior driving. This EEG appears to be probably flat line and could indicate brain , but clinical correlation is needed. Certainly a severe diffuse encephalopathy is noted if the patient is not on sedatives. Prasad Barksdale MD DJM/ct , 06:19 PM , 06:25 PM
== END 2018-07-07 17:09 | disposition expired ==
LOC: NEPC 20:26 → NEDA 21:20 → NEDH 07-07 01:27 → HIMC 07-07 04:15
PROVIDERS: ADMIT Internal Medicine Critical Care Medicine; ATTEND Internal Medicine Critical Care Medicine